=== PATIENT | female | born 1970 | race Caucasian/White ===

== ENCOUNTER 2018-11-10 12:04 | Emergency (ER) | payer MEDICAID, SELFPAY ==
[2018-11-10 12:11] VITALS: BP 150/94; PULSE 107; RESP 16; TEMP 36.6; O2SAT 98
--- NOTE | 2018-11-10 12:12 | W.ED.GENAD ---
Discharge Plan Disposition Patient Disposition: HOME Condition: Good Discharge Details Chief Complaint: Nk/Back Pain Clinical Impression: Lumbago Primary Care Provider: Philipp Eason ED Provider: Jake Eason Home Meds and New Rx's Prescriptions: New cyclobenzaprine 10 mg tablet 10 mg PO TID Qty: 14 RF: 0 lidocaine [Lidoderm] 1 PATCH patch 1 patch Topical Q24H Qty: 4 RF: 0 No Action lisinopril 20 mg Tablet 1 tab PO DAILY RF: 0 omeprazole 40 mg Capsule,Delayed Release(Dr/Ec) 1 tab PO DAILY RF: 0 metformin 1,000 mg Tablet 1,000 mg PO DAILY RF: 0 Chantix 1 mg Tablet 1 tab PO DAILY RF: 0 Discharge Instructions Instructions: Low Back Strain (ED) Additional Instructions: Please take medication as directed, please continue to take Tylenol and Motrin at home. When you are taking the Flexeril please do not operate any heavy machinery, drive the vehicle, or operate firearms. Please continue to use a heating pad as often as possible throughout the day. Please do not lift anything greater than 5 pounds. Please avoid continuous bedrest but try to do that small things around the house. Do not overstrain herself. If you notice any worsening of your symptoms, or any new symptoms such as vomiting, diarrhea, fever, chills, shortness of breath, chest pain, numbness in your groin, bowel or bladder incontinence,, weakness, or fainting , please return immediately to the emergency department for reevaluation. Please follow up with your primary care provider as soon as possible for reassessment and reevaluation. As always, it was a pleasure participating in your medical care today. Medical Decision Making This is a very pleasant 47-year-old with a history of degenerative disc and spine disease who has had multiple MRIs and orthopedic follow-ups, the most recent major imaging study was 1 year ago. She presents today with back pain which she states is clinically consistent with her previous episodes of back spasm. She is getting out of her car 10 days ago, and developed mild back pain at that time. She had no fall, no trauma, she had no red flags of fever chills IV drug use numbness tingling or weakness saddle anesthesia bowel or bladder incontinence, or history of cancer. Physical exam demonstrates a well-appearing female with reassuring vital signs and an encouraging neurologic and physical exam. No significant lumbar or thoracic midline spine tenderness. Normal reflexes, sensation, and strength. Patient demonstrates no evidence of cauda equina syndrome. Her signs and symptoms are clinically consistent with lumbar ago secondary to paraspinal musculature spasms, and inconsistent with cauda equina syndrome, severe vertebral pathology from trauma, or other significant acute process in that regards. Patient has been given a Lidoderm patch, she will be given a prescription for Flexeril. She will be given steroids here. Will be encouraged to continue Tylenol Motrin. Patient had notable improvement of her symptoms with heating pads, and will continue recommend use for this. We discussed red flags which to return and the importance of close follow-up with her PCP and the patient understands I have extensively reviewed the treatment plan and discharge instructions with the patient. I have addressed all patient concerns at this time. The patient was made aware of what symptoms to monitor for that would warrant a return to the emergency department. Discussed the plan with the patient, they demonstrate verbal understanding and agreement with our assessment and plan at this time. HPI General Date/Time Provider Initiated Documentation: 11/10/18 12:06. HPI Narrative: This is a 47-year-old female with a past medical history of degenerative disc disease, who presents today for evaluation of low back pain. Patient states that 10 days ago she was getting out of her vehicle she noticed some back pain which is gradually worsened. It is worse on the left-hand side with some radiation to the right. She denies any focal tenderness in the center. Pain is made worse with movement, improved with a heating pad, and no significant improvement with Tylenol and Motrin. She has had similar symptoms to this in the past, and it usually responds well to Flexeril. She denies any red flags of saddle anesthesia, numbness tingling or weakness, bowel or bladder incontinence. She denies any hematuria, dysuria, or increase in urinary frequency. She denies any history of family cancer, and she denies any trauma, or falls. She denies any red flags of fever or chills. She denies any other complaints at this time. She denies any recent surgeries. She denies any pertinent family history. She has no other complaints at this time. Related Data Home Medications Medication Instructions Recorded Confirmed cyclobenzaprine 10 mg PO TID #14 tab 11/10/18 lidocaine [Lidoderm] 1 patch TOPICAL Q24H #4 patch 11/10/18 lisinopril 1 tab PO DAILY 11/10/18 11/10/18 metformin 1,000 mg PO DAILY 11/10/18 11/10/18 omeprazole 1 tab PO DAILY 11/10/18 11/10/18 varenicline [Chantix] 1 tab PO DAILY 11/10/18 11/10/18 Previous Rx's Medication Instructions Recorded cyclobenzaprine 10 mg PO TID #14 tab 11/10/18 lidocaine [Lidoderm] 1 patch TOPICAL Q24H #4 patch 11/10/18 Allergies Allergy/AdvReac Type Severity Reaction Status Date / Time cephalexin [From Keflex] Allergy Severe Other (See Unverified 11/10/18 12:16 Comment) sulfamethoxazole Allergy Severe Anaphylaxsi Unverified 11/10/18 12:31 [From Bactrim] s trimethoprim [From Bactrim] Allergy Severe Anaphylaxsi Unverified 11/10/18 12:31 s naproxen Allergy Intermediate Skin Rash Unverified 11/10/18 12:31 meloxicam Allergy Mild Nausea Unverified 11/10/18 12:16 Review of Systems Review of Systems All systems reviewed & are unremarkable except as noted in HPI and below PFSH Social History Smoking/Tobacco Use Status: Current every day Exam Narrative Exam Narrative: 1.Const: Well-nourished, Well-developed, appearing stated age 2.Eyes: PERRL, no conjunctival injection, and symmetrical lids. 3.ENT: Atraumatic external nose and ears. Moist MM. Neck: Symmetric, trachea midline, No thyromegaly. 4.CVS: +S1/S2, No murmurs or gallops. Peripheral pulses 2+ and equal in all extremities. Brisk capillary refill in all extremities. 5.RESP: Unlabored respiratory effort. Clear to auscultation bilaterally. No wheezes rales or rhonchi 6.GI: Soft, Nontender/Nondistended, No hepatosplenomegaly. No guarding or rebound. 7.MSK: Normocephalic/Atraumatic, Extremities w/o deformity or ttp No cyanosis or clubbing, Normal movement of all extremities. No midline tenderness to palpation over the CTLS spine. Mild to notable left-sided paraspinal tenderness over L4, and minimal right-sided paraspinal tenderness at L5. Normal ROM in flexion, extension, side bend, and rotation. Patient has +5 out of 5 strength in the lower extremities in dorsiflexion and plantarflexion, knee flexion and extension, hip flexion and extension. There is +2 over 2 dorsalis pedis pulses bilaterally. There is normal sensation to the skin with light touch at the foot, knee, and hip. Normal saddle sensation. Good sensation over the deep sural nerve area bilaterally. Rectal exam demonstrated normal rectal tone, and good perirectal sensation reflexes are +2 over 4 in the patellar reflex bilaterally. +5 out of 5 strength in the medial, ulnar, radial nerve distribution bilaterally in the hands as well as intact light touch sensation to these dermatomes on the hands. It was worsened with straight leg raise bilaterally. Worse on the left than the right. No symptoms of numbness or tingling with straight leg raise. No evidence of weakness. 8.Skin: Warm, Dry. No rashes or lesions. 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 Sensation grossly intact, no focal neurologic deficits. 10.Psych: (AAO) x3. Appropriate mood and affect
[2018-11-10] MEDS: Lidocaine 5% Patch 1 PATCH TP (12:29)
[2018-11-10] MEDS: Dexamethasone 4 MG TAB 12 MG PO (12:55)
== END 2018-11-10 13:08 | disposition home or self-care (01) ==
PROVIDERS: Emergency Provider Student in an Organized Health Care Education/Training Program
DX: M54.5 Low back pain (principal); X50.9XXA Other and unspecified overexertion or strenuous movements or postures, initial encounter; I10 Essential (primary) hypertension
CPT/HCPCS: 99283; J8540

== ENCOUNTER 2019-03-04 16:16 | Emergency (ER) | payer MEDICAID, SELFPAY ==
--- NOTE | 2019-03-04 16:35 | DI.RAD_ITS ---
SYMPTOM/DIAGNOSIS: CHEST PAIN, SOB PA AND LATERAL CHEST: The heart is normal in size. The lungs are clear. The mediastinal structures and pleura appear intact. CONCLUSION: Normal chest. No evidence of acute cardiopulmonary disease.
[2019-03-04] MEDS: Aspirin 81 MG CHEW 324 MG CH (17:00)
--- NOTE | 2019-03-04 17:04 | ED.GENADUL_ITS ---
Discharge Plan Disposition Patient Disposition: AGAINST MEDICAL ADVICE Condition: Stable Discharge Details Chief Complaint: Chest Pain Clinical Impression: Chest pain Primary Care Provider: Philipp Eason ED Provider: Cole Silva Home Meds and New Rx's Prescriptions: Continued lisinopril 20 mg Tablet 1 tab PO DAILY RF: 0 omeprazole 40 mg Capsule,Delayed Release(Dr/Ec) 1 tab PO DAILY RF: 0 metformin 1,000 mg Tablet 1,000 mg PO DAILY RF: 0 Chantix 1 mg Tablet 1 tab PO DAILY RF: 0 cyclobenzaprine 10 mg tablet 10 mg PO TID Qty: 14 RF: 0 lidocaine [Lidoderm] 1 PATCH patch 1 patch Topical Q24H Qty: 4 RF: 0 duloxetine [Cymbalta] 30 mg Capsule,Delayed Release(Dr/Ec) 30 mg PO DAILY RF: 0 Discharge Instructions Instructions: Chest Pain (ED) Additional Instructions: Return immediately to the emergency department for any further concerns, worsening of symptoms, or any further needs you may have. Otherwise follow-up with your primary care provider. We have faxed a referral for outpatient stress testing given that your company of chest pain and somebody will contact you for arrangement of this further testing. Referrals: Philipp Eason [Primary Care Provider] - 2 days Discharge Data Discharge Date/Time-TO BE ENTERED AT DEPARTURE: 03/04/19 18:50 Medical Decision Making Patient presenting the emergency department chief complaint of chest pain. Patient states that this started approximately 6 hours prior to arrival and has been persistent. Patient states history of anxiety and GERD but that this pain is different. Physical exam does show some mild wheezing throughout but patient is a smoker. Patient has otherwise unremarkable nondiagnostic exam. EKG reviewed with attending physician and shows no acute signs of STEMI. EKG shows rate of 93, sinus rhythm non-STEMI. Given the patient is a smoker plan to do d- dimer, chest x-ray, and ACS workup. Pending results patient given aspirin 324 and DuoNeb given wheezing. Review of x-ray shows no acute findings along with radiologist interpretation agreement. Labs are nondiagnostic with no elevation of d-dimer and negative initial troponin. Discussed repeat troponin. Patient refused to stay for further testing and states risk versus benefit of leaving AGAINST MEDICAL ADVICE as patient does state improvement of symptoms and does not want to stay for repeat troponin. Patient was agreeable to outpatient stress testing which order was placed and patient placed upon care management follow-up list preferably for reassessment in the next couple days given patient's complaint of chest pain. Patient clearly states understanding to return for any new or significant worsening of symptoms or further concerns. After discussion of diagnosis and plan of care patient has no further needs, questions, or concerns and states clear understanding to return to the emergency department for any worsening symptoms. HPI General Mode of arrival: ambulatory . Date/Time Provider Initiated Documentation: 03/04/19 16:34 . Limitations to Documentation: no limitations . Information obtained by: patient, family and RN notes reviewed . History of Present Illness 48 year old F presents to the emergency department with the chief complaint of Chest pressure, described as moderate, with intensity rated at 4. Quality is described as aching, and is localized to the chest. Patient started experiencing this hour(s) (6) and it has been constant. No relieving factors improve symptom(s), No exacerbating factors reported . Patient notes no other symptoms.. Patient did receive the following treatments prior to arrival, none Related Data Home Medications Medication Instructions Recorded Confirmed Chantix 1 tab PO DAILY 11/10/18 03/04/19 cyclobenzaprine 10 mg PO TID #14 tab 11/10/18 03/04/19 lidocaine [Lidoderm] 1 patch TOPICAL Q24H #4 patch 11/10/18 03/04/19 lisinopril 1 tab PO DAILY 11/10/18 03/04/19 metformin 1,000 mg PO DAILY 11/10/18 03/04/19 omeprazole 1 tab PO DAILY 11/10/18 03/04/19 duloxetine [Cymbalta] 30 mg PO DAILY 03/04/19 03/04/19 Previous Rx's Medication Instructions Recorded cyclobenzaprine 10 mg PO TID #14 tab 11/10/18 lidocaine [Lidoderm] 1 patch TOPICAL Q24H #4 patch 11/10/18 Allergies Allergy/AdvReac Type Severity Reaction Status Date / Time cephalexin [From Keflex] Allergy Severe Other (See Unverified 03/04/19 17:20 Comment) sulfamethoxazole Allergy Severe Anaphylaxsi Unverified 03/04/19 17:20 [From Bactrim] s trimethoprim [From Bactrim] Allergy Severe Anaphylaxsi Unverified 03/04/19 17:20 s naproxen Allergy Intermediate Skin Rash Unverified 03/04/19 17:20 meloxicam Allergy Mild Nausea Unverified 03/04/19 17:20 General JAVIER: 4 Review of Systems Constitutional Denies chills, Denies fever(s) and Denies malaise Cardiovascular Reports as per HPI, Reports chest pain, Denies chest pain with activity, Denies syncope, Denies irregular heart rhythm, Denies palpitations and Denies dyspnea Respiratory Denies cough, Denies hemoptysis and Denies dyspnea Gastrointestinal Denies abdominal pain, Denies nausea and Denies vomiting Neurologic Denies syncope Psychiatric Denies anxiety Endocrine Denies palpitations PFS Social History Smoking/Tobacco Use Status: Current every day Tobacco Type: cigarettes Drug use: Never Do you feel safe in your relationship?: Yes Exam Const General: cooperative, healthy appearing, comfortable, no acute distress, not diaphoretic and not ill appearing Nutritional Appearance: average body habitus Orientation: alert, awake and oriented x3 Limitations: mental status not altered Neck Neck: normal visual inspection, full ROM, trachea midline, supple and no anterior neck swelling Thyroid: thyroid normal Carotids: normal carotid upstroke and no bruits Chest Chest: normal inspection of the chest Resp Effort & Inspection: normal respiratory effort and able to speak in complete sentences Auscultation: clear to auscultation bilaterally Cardio Jugular venous pressure: no JVD Palpation: normal PMI Rate: regular rate Rhythm: regular rhythm Heart Sounds: S1 normal, S2 normal, no click, no gallops, no murmurs and no rubs Bruits: no abdominal aortic bruits and no carotid bruits Pulses: radial pulses present bilaterally 2+ GI Inspection: normal to inspection Palpation: soft, no aortic enlargement, no pulsatile masses and nontender Auscultation: normal bowel sounds Skin General skin exam: no rashes or lesions noted Neuro General: alert, awake, oriented x3, tone normal and moves all extremities
[2019-03-04 17:08] LABS: Abs Immature Grans 0.01 k/cumm (0.0-0.09); Absolute Basophil Count 0.03 k/cumm (0.0-0.2); Absolute Eosinophil Count 0.22 k/cumm (0.0-0.7); Absolute Lymphocyte Count 2.62 k/cumm (1.2-3.4); Absolute Monocyte Count 0.96 k/cumm (0.11-0.7); Absolute Neutrophil Count 4.19 k/cumm (1.2-6.7); Basophils % 0.4; Eosinophils % 2.7; HCT 37.9 % (36.0-46.0); HGB 12.4 g/dL (12.0-15.5); Immature Grans % 0.1; Lymphocytes % 32.6; Mean Corp. HGB Concentration 32.7 g/dL (32.0-36.0); Mean Corpuscular Hemoglobin 26.5 pg (27.0-33.0); Mean Platelet Volume 10.9 fL (8.0-11.0); Neutrophils % 52.2; Platelet Count 207 x1000/uL (130-400); RBC 4.68 m/cumm (4.00-5.20); RBC Distribution Width 13.4 % (11.7-14.6); White Blood Cell Count 8.03 k/cumm (4.4-10.8)
[2019-03-04 17:10] VITALS: RESP 8
[2019-03-04] MEDS: Albuterol/Ipratropium 3 ML UPD VIAL UPD (17:10)
[2019-03-04 17:18] VITALS: BP 137/73; PULSE 89; RESP 20; TEMP 37.3; O2SAT 96
[2019-03-04 17:33] LABS: ALT 27 U/L (12-78); AST 18 U/L (15-37); Albumin 3.8 g/dL (3.4-5.0); Alkaline Phosphatase 77 U/L (46-116); Anion Gap 10.7 mmol/L (3-11); BUN 13 mg/dL (7-18); Bilirubin, Total 0.4 mg/dL (0.2-1.0); CO2 25.3 mmol/L (21.0-32.0); CREATININE 1.11 mg/dL (0.55-1.02); Calcium 8.6 mg/dL (8.5-10.1); Chloride 104 mmol/L (98-107); Estimated GFR 52.69 (mL/min/1.73m2); Glucose 98 mg/dL (70-100); Magnesium 1.7 mg/dL (1.8-2.4); Potassium 3.4 mmol/L (3.5-5.1); Sodium 140 mmol/L (136-145); Total Protein 7.2 g/dL (6.4-8.2)
[2019-03-04 17:34] LABS: D-Dimer 258 ng/mlFEU (<500)
[2019-03-04 17:40] VITALS: RESP 1
[2019-03-04 17:43] LABS: Troponin I < 0.02 ng/mL (0.00-0.06)
--- NOTE | 2019-03-04 18:15 | DI.VRAD_ITS ---
EXAM: XR Chest, 2 Views EXAM DATE/TIME: 03/04/2019 5:46 PM CLINICAL HISTORY: 48 years old, female; Pain; Chest pain TECHNIQUE: Imaging protocol: XR of the chest, 2 views. COMPARISON: No relevant prior studies available. FINDINGS: Lungs: Unremarkable. No consolidation. Pleural space: Unremarkable. No pleural effusion. No pneumothorax. Heart/Mediastinum: Unremarkable. No cardiomegaly. Bones/joints: Unremarkable. IMPRESSION: No acute findings. Dictated and Authenticated by: Vishnu Freitas MD. Ordering:EBONI Galvan MD
[2019-03-04 19:00] VITALS: RESP 16
== END 2019-03-04 18:50 | disposition left against medical advice (07) ==
PROVIDERS: Emergency Provider Nurse Practitioner Family
DX: R07.9 Chest pain, unspecified (principal); Z53.29 Procedure and treatment not carried out because of patient's decision for other reasons; K21.9 Gastro-esophageal reflux disease without esophagitis; F17.210 Nicotine dependence, cigarettes, uncomplicated
CPT/HCPCS: 36415; 80053; 93005; 94640; 99285; 71046; 83735; 84484; 85025; 85379; 93010; 99284; J7620

== ENCOUNTER 2020-03-13 15:34 | Emergency (ER) | payer MEDICAID, SELFPAY ==
[2020-03-13] VITALS (16 sets, daily range): BP systolic 110–137; BP diastolic 59–75; PULSE 81–131; RESP 9–20; TEMP 36.6; O2SAT 93–97
--- NOTE | 2020-03-13 15:42 | ED.GENADUL_ITS ---
Discharge Plan Disposition Patient Disposition: HOME Condition: Good Discharge Details Chief Complaint: Abd Prob Clinical Impression: Ovarian cyst, Endometrial thickening on ultrasound, Incidental pulmonary nodule, Abdominal pain Primary Care Provider: Marguerite Riley ED Provider: Jake Eason Home Meds and New Rx's Prescriptions: Continued lisinopril 20 mg Tablet 1 tab PO DAILY RF: 0 omeprazole 40 mg Capsule,Delayed Release(Dr/Ec) 1 tab PO DAILY RF: 0 metformin 1,000 mg Tablet 1,000 mg PO DAILY RF: 0 Chantix 1 mg Tablet 1 tab PO DAILY RF: 0 cyclobenzaprine 10 mg tablet 10 mg PO TID Qty: 14 RF: 0 lidocaine [Lidoderm] 1 PATCH patch 1 patch Topical Q24H Qty: 4 RF: 0 duloxetine [Cymbalta] 30 mg Capsule,Delayed Release(Dr/Ec) 30 mg PO DAILY RF: 0 Discharge Instructions Instructions: Ovarian Cyst (ED), Abdominal Pain (ED) Additional Instructions: Here CT scan shows evidence of ovarian cyst which is likely the cause of your pain. You also have a thickened endometrium which needs to be followed up closely with gynecology. Please follow-up with Dr. Schaeffer on Monday morning. Please contact their office. There is also evidence of pulmonary nodules which is an incidental finding. Please follow-up closely with your primary care provider in regards to this. Please take 600 mg of ibuprofen every 6 hours and 1000 mg of Tylenol every 6 hours as needed for pain. Take the Deford as only as needed for pain control. Only take 500 mg of Tylenol if you take an Deford pill. If you notice any worsening of your symptoms, or any new symptoms such as vomiting, diarrhea, fever, chills, shortness of breath, chest pain, numbness, weakness, or fainting , please return immediately to the emergency department fo r reevaluation. Please follow up with your primary care provider as soon as possible for reassessment and reevaluation. As always, it was a pleasure participating in your medical care today. Referrals: Rashid Schaeffer MD [ NON-[facility] STAFF PHYSICIAN] - Marguerite Riley [Primary Care Provider] - Medical Decision Making This is a very pleasant 47-year-old with a history of degenerative disc and spine disease who has had multiple MRIs and orthopedic follow-ups, the most recent major imaging study was 1 year ago who presents today for sudden onset right lower quadrant abdominal pain. Patient states that she was doing dishes when she suddenly had a severe achy sensation in her right lower quadrant. Pain is made worse with movement and palpation. She came to the ER immediately for evaluation. She has had no associated urinary symptoms, nausea vomiting or diarrhea. She is currently on her period. She denies any history o f kidney stones or having pain like this before. No other complaints at this time. No other modifying factors. Physical exam demonstrates notable right lower quadrant abdominal tenderness with reproducibility and guarding. Differential is highest for appendicitis, less likely for pelvic pathology. Will get a CT scan, treat the patient's pain, monitor closely and reassess. 5:[address] scan shows evidence of ovarian cysts, some pulmonary nodules, no other acute abnormalities and no evidence of acute appendicitis. Pain is improved but still present. Patient is currently on her period. Concern for torsion although less likely. Ultrasound was ordered, cysts are present, good blood flow was noted, no evidence of torsion on ultrasound. She does have a notably thickened endometrium at 1.5 cm, which ultrasonography is certainly concerned about this. Did contact Dr. Schaeffer and discussed the case with him. He does recommend prompt follow-up. CT scan does notice pulmonary nodules as well per virtual radiology. This time the patient's pain is notably improved, initial lactate is minimally elevated 2.2, likely secondary to reactivity, no bandemia. No fever. No clinical evidence of tubo-ovarian abscess or significant infection. Urinalysis negative for infection. No clinical evidence radiographically of appendicitis at this time. With patient's pain notably improved I feel that she can go home, I do recommend close follow-up with obstetrics on Monday morning. She would like to follow-up with her PCP in regards to the pulmonary nodules. Discussed red flags which to return. I have extensively reviewed the treatment plan and discharge instructions with the patient. I have addressed all patient concerns at this time. The patient was made aware of what symptoms to monitor for that would warrant a return to the emergency department. Discussed the plan with the patient, they demonstrate verbal understanding and agreement with our assessment and plan at this time. EKG 15: 47 Rate 106, intervals normal, sinus tachycardia, no significant ST elevations or depressions. No evidence of STEMI. Minimal less than 1 mm of depression in V4, no reciprocal elevations, IMPRESSION: 1. Normal appendix with no pathology identified to account for the patient's right lower quadrant pain. 2. 3 cm right ovarian cyst which could relate to the patient's pain. 3. There are several solid noncalcified nodules in the lung bases. The largest is in the lateral left lung base and measures 6 mm in diameter (series 2, image 14). Impression For patients at low risk (minimal or absent history of smoking and of other known risk factors), no routine follow-up is indicated. For patients at high risk (history of smoking or of other known risk factors), consider optional CT Chest at 12 months. Asaf Mejía, Fleischner Society, 2017. Thank you for allowing us to participate in the care of your patient. Dictated and Authenticated by: David Medellin MD 03/13/2020 5:15 PM Eastern Time ([place] & [place]) FINDINGS: Uterus/cervix: The uterus measures 8.2 x 4.6 x 4.6 cm. Endometrial thickness is 1.5 cm with you is within normal limits. There are multiple nabothian cysts. Right adnexa: 2.7 cm right ovarian cyst or dominant follicle. No mass. Normal ovarian blood flow. Left adnexa: 2.7 cm left ovarian cyst or dominant follicle. No mass. Normal ovarian blood flow. Free fluid: None. Bladder: Normal. Other findings: Limited views of each kidney demonstrate no renal calculus or hydronephrosis. IMPRESSION: Bilateral ovarian cysts/dominant follicles each measuring less than 3 cm diameter. No further followup suggested. No acute findings. Thank you for allowing us to participate in the care of your patient. Dictated and Authenticated by: David Medellin MD HPI General Date/Time Provider Initiated Documentation: 03/13/20 15:34 . HPI Narrative: This is a very pleasant 47-year-old with a history of degenerative disc and spine disease who has had multiple MRIs and orthopedic follow-ups, the most recent major imaging study was 1 year ago who presents today for sudden onset right lower quadrant abdominal pain. Patient states that she was doing dishes when she suddenly had a severe achy sensation in her right lower quadrant. Pain is made worse with movement and palpation. She came to the ER immediately for evaluation. She has had no associated urinary symptoms, nausea vomiting or diarrhea. She is currently on her period. She denies any history of kidney stones or having pain like this before. No other complaints at this time. No other modifying factors. Related Data Home Medications Medication Instructions Recorded Confirmed Chantix 1 tab PO DAILY 11/10/18 03/04/19 cyclobenzaprine 10 mg PO TID #14 tab 11/10/18 03/04/19 lidocaine [Lidoderm] 1 patch TOPICAL Q24H #4 patch 11/10/18 03/04/19 lisinopril 1 tab PO DAILY 11/10/18 03/04/19 metformin 1,000 mg PO DAILY 11/10/18 03/04/19 omeprazole 1 tab PO DAILY 11/10/18 03/04/19 duloxetine [Cymbalta] 30 mg PO DAILY 03/04/19 03/04/19 Previous Rx's Medication Instructions Recorded cyclobenzaprine 10 mg PO TID #14 tab 11/10/18 lidocaine [Lidoderm] 1 patch TOPICAL Q24H #4 patch 11/10/18 Allergies Allergy/AdvReac Type Severity Reaction Status Date / Time cephalexin [From Keflex] Allergy Severe Other (See Unverified 03/04/19 17:20 Comment) sulfamethoxazole Allergy Severe Anaphylaxsi Unverified 03/04/19 17:20 [From Bactrim] s trimethoprim [From Bactrim] Allergy Severe Anaphylaxsi Unverified 03/04/19 17:20 s naproxen Allergy Intermediate Skin Rash Unverified 03/04/19 17:20 meloxicam Allergy Mild Nausea Unverified 03/04/19 17:20 General JAVIER: 2 Review of Systems All systems reviewed & are unremarkable except as noted in HPI and below PFSH Social History Smoking/Tobacco Use Status: Current every day Tobacco Type: cigarettes Drug use: Never Substance use type: does not use Do you feel safe at home: Yes Do you feel safe in your relationship?: Yes Exam Narrative Exam Narrative: 1.Const: Well-nourished, Well-developed, appearing stated age 2.Eyes: PERRL, no conjunctival injection, and symmetrical lids. 3.ENT: Atraumatic external nose and ears. Moist MM. Neck: Symmetric, trachea midline, No thyromegaly. 4.CVS: +S1/S2, No murmurs or gallops. Peripheral pulses 2+ and equal in all extremities. Brisk capillary refill in all extremities. 5.RESP: Unlabored respiratory effort. Clear to auscultation bilaterally. No wheezes rales or rhonchi 6.GI: Soft, nondistended, notable guarding and tenderness in the right lower quadrant. Mild rebound. Notable referred pain on palpation of the right upper quadrant down to the right lower. Negative Rovsing sign. 7.MSK: Normocephalic/Atraumatic, Extremities w/o deformity or ttp No cyanosis or clubbing, Normal movement of all extremities 8.Skin: Warm, Dry. No rashes or lesions. 9.Neuro: home office representative II-XII grossly intact. Sensation grossly intact, no focal neurologic deficits. 10.Psych: (AAO) x3. Appropriate mood and affect
--- NOTE | 2020-03-13 15:45 | DI.CT_ITS ---
EXAM: CT ABDOMEN PELVIS WO CLINICAL HISTORY: RLQ pain, on period. TECHNIQUE: Imaging Protocol: Axial computed tomography images with coronal and sagittal reformatted images were created and reviewed. COMPARISON: No exams were available for comparison FINDINGS: ABDOMEN: Lung Bases: There are noncalcified pulmonary nodules seen in the lung bases. The largest is seen in the right lung base and measures 0.7 cm. Liver: Normal density. No measurable mass. Gallbladder and biliary tract: No radiodense calculus or biliary ductal dilation. Pancreas: Normal density, no abnormal calcifications or inflammatory process. Spleen: Normal. Kidneys: Normal size, contour and axis. No radiodense stones or obstructive uropathy. No masses seen. Adrenal glands: No masses seen. Lymph nodes: Within normal limits. Abdominal Aorta: Abdominal portion non-dilated. Mild atherosclerosis. PELVIS: Bladder: Symmetric distention, no gross wall thickening. Bowel: No obstruction or bowel wall thickening. The appendix is normal in size without evidence of ad jacent mesenteric fat stranding or adjacent fluid collection. Peritoneal cavity: No ascites, collection or mesenteric inflammatory response. Reproductive organs: There is a 3 cm right adnexal cyst. This likely reflects an ovarian cyst. Note is made of a cervical nabothian cyst. Bones: Degenerative changes are seen in the spine, particularly at L5-S1. Soft Tissues: Within normal limits. IMPRESSION: 1. Normal appendix without evidence of an acute appendicitis. 2. 3 cm right ovarian cyst. This may relate to the patient's site of pain. 3. Several noncalcified pulmonary nodules. The largest is in the right lower lobe and measures 7 mm in size. For patients at high risk (history of smoking or other known risk factors), consider CT sca n of the chest in 6-12 months for re-evaluation. RADIATION DOSE DELIVERED: Total DLP DATA REPOSITORY: All CT scans at this facility are submitted to the National Radiology Data Registry (NRDR) Dose Index Registry (DIR) with the [employer] (ACR). RADIATION OPTIMIZATION: All CT scans at this facility use at least one of these dose optimization te chniques: automated exposure control; mA and/or kV adjustment per patient size (includes targeted exa ms where dose is matched to clinical indication); or iterative reconstruction.
[2020-03-13] MEDS: Normal Saline 1,000 ML 1000 ML IV (16:01)
[2020-03-13 16:05] LABS: Abs Immature Grans 0.09 k/cumm (0.0-0.09); Absolute Basophil Count 0.04 k/cumm (0.0-0.2); Absolute Eosinophil Count 0.17 k/cumm (0.0-0.7); Absolute Monocyte Count 1.03 k/cumm (0.11-0.7); Absolute Neutrophil Count 7.35 k/cumm (1.2-6.7); Basophils % 0.3; Eosinophils % 1.4; HCT 41.5 % (36.0-46.0); HGB 14.2 g/dL (12.0-15.5); Immature Grans % 0.8 %; Lymphocytes % 26.9; Mean Corp. HGB Concentration 34.2 g/dL (32.0-36.0); Mean Corpuscular Volume 84.7 fL (80-95); Mean Platelet Volume 10.7 fL (8.0-11.0); Monocytes % 8.7; Neutrophils % 61.9; Platelet Count 257 x1000/uL (130-400); RBC Distribution Width 13.1 % (11.7-14.6); White Blood Cell Count 11.88 k/cumm (4.4-10.8)
[2020-03-13 16:08] LABS: Lactate 2.2 mmol/L (0.6-1.4)
[2020-03-13 16:12] LABS: Bilirubin Negative (Negative); Blood Large (Negative); Clarity Sl Cloudy (Clear); Glucose Negative (Negative); Ketones Negative (Negative); Leukocyte Esterase Negative (Negative); Nitrite Negative (Negative); Specific Gravity >= 1.030 (1.005-1.025); Urobilinogen 0.2 EU/dL (Up TO 0.2); pH 5.5 (5-8)
[2020-03-13 16:30] LABS: Epithelial Cells Few HPF (Negative); RBC >50 HPF (0-2); WBC Negative HPF (0-5)
[2020-03-13 16:31] LABS: Bacteria Rare HPF (Negative); C & S Indicated? No; Crystals Negative HPF (Negative); Mucus Negative (Negative)
[2020-03-13 16:31] LABS: ALT 30 U/L (14-59); AST 19 U/L (15-37); Alkaline Phosphatase 53 U/L (46-116); Anion Gap 10.1 mmol/L (3-11); BUN 19 mg/dL (7-18); Bilirubin, Total 0.4 mg/dL (0.2-1.0); CO2 25.9 mmol/L (21.0-32.0); Chloride 101 mmol/L (98-107); Estimated GFR 47.95 (mL/min/1.73m2); Glucose 112 mg/dL (74-106); Lipase 201 U/L (73-393); Potassium 3.4 mmol/L (3.5-5.1); Sodium 137 mmol/L (136-145); Total Protein 7.9 g/dL (6.4-8.2)
[2020-03-13 16:44] LABS: Troponin I < 0.05 ng/Ml (<0.06)
[2020-03-13] MEDS: Ondansetron 4 MG/2 ML VIAL IVP (16:56)
[2020-03-13] MEDS: HYDROmorphone 2 MG/ML VIAL 1 MG IVP (17:04)
--- NOTE | 2020-03-13 17:16 | DI.VRAD_ITS ---
PROCEDURE INFORMATION: Exam: CT Abdomen And Pelvis Without Contrast Exam date and time: 03/13/2020 4:31 PM Age: 49 years old Clinical indication: Abdominal pain; Localized; Right lower quadrant (rlq); Patient HX: Rlq pain, on period TECHNIQUE: Imaging protocol: Computed tomography of the abdomen and pelvis without contrast. COMPARISON: No relevant prior studies available. FINDINGS: Lungs: There are several solid noncalcified nodules in the lung bases. The largest is in the lateral left lung base and measures 6 mm in diameter (series 2, image 14). Liver: The liver is within normal limits for this noncontrast study. Gallbladder and bile ducts: The gallbladder is normal. Pancreas: The pancreas is normal. Spleen: The spleen is normal. Adrenals: The adrenal glands are normal. Kidneys and ureters: The kidneys are normal. Stomach and bowel: Unremarkable. No obstruction. No mucosal thickening. Appendix: A normal appendix is identified. Intraperitoneal space: Unremarkable. No free air. No significant fluid collection. Vasculature: The aorta demonstrates mild atherosclerotic calcification. Lymph nodes: Unremarkable. No enlarged lymph nodes. Bladder: The urinary bladder is nondistended limiting its evaluation. It is grossly unremarkable. Reproductive: 3 cm right adnexal cyst. This is not pathological based on size or CT appearance but could relate to the patient's right lower quadrant pain. 9 mm cyst in the cervix consistent with nabothian cysts noted. Bones/joints: There is mild convex right curvature of the lumbar spine with degenerative disc disease predominantly along the inter convexity on the left at L5-S1. There are degenerative changes of the facet joints most pronounced at L4-L5. No suspicious lytic or sclerotic bone lesion. Soft tissues: Unremarkable. IMPRESSION: 1. Normal appendix with no pathology identified to account for the patient's right lower quadrant pain. 2. 3 cm right ovarian cyst which could relate to the patient's pain. 3. There are several solid noncalcified nodules in the lung bases. The largest is in the lateral left lung base and measures 6 mm in diameter (series 2, image 14). Impression For patients at low risk (minimal or absent history of smoking and of other known risk factors), no routine follow-up is indicated. For patients at high risk (history of smoking or of other known risk factors), consider optional CT Chest at 12 months. Asaf Mejía, Fleischner Society, 2017. Dictated and Authenticated by: David Medellin MD. Ordering:GIL Joseph MD
--- NOTE | 2020-03-13 18:23 | DI.US_ITS ---
EXAM: US PELVIS TRANSVAGINAL CLINICAL HISTORY: ovarian cyst. TECHNIQUE: Transabdominal and transvaginal pelvic ultrasound was performed using standard protocol. COMPARISON: CT ABDOMEN PELVIS WO from 03/13/2020 FINDINGS: KIDNEYS: Kidneys are symmetric in size. No evidence of renal calculi. No evidence of hydronephrosis. No renal mass or cyst identified. UTERUS: Position: Anteverted. Size: 8.4 x 4.6 x 4.6 cm Endometrium: Up to 1.5 cm. Normal for patient's menstrual status. Myometrium: Unremarkable. Cervix: Cervical nabothian cysts are present. OVARIES: Right: 3.2 x 2.4 x 2.8 cm Cyst or mass: There is a dominant 2.7 cm cyst or follicle. Left: 3.9 x 1.7 x 2.0 cm Cyst or mass: There is a 2.7 cm cyst or dominant follicle. DOPPLER: Color: Symmetric and uniform flow to both ovaries. No hyperemia. Duplex: Normal ovarian arterial waveforms visualized. CUL-DE-SAC: Free fluid: None. Other: None. IMPRESSION: 1. Normal sonographic appearance of the kidneys. 2. Normal-appearing uterus with endometrial stripe within normal limits. 3. Bilateral ovarian cysts or dominant follicles less than 3 cm in diameter. No further follow-up is suggested. DATA REPOSITORY:
--- NOTE | 2020-03-13 19:35 | DI.VRAD_ITS ---
PROCEDURE INFORMATION: Exam: US Pelvis Complete, Transabdominal and US Pelvis, Transvaginal Exam date and time: 03/13/2020 7:08 PM Age: 49 years old Clinical indication: Other: Sudden onset of rlq pain today. ; Patient HX: Rlq pain. Patient currently menstruating. TECHNIQUE: Imaging protocol: Real-time transabdominal and transvaginal pelvic ultrasound (complete) with image documentation. Transvaginal imaging was used for better evaluation of the endometrium and adnexa. COMPARISON: CT ABDOMEN PELVIS WO 03/13/2020 4:30 PM FINDINGS: Uterus/cervix: The uterus measures 8.2 x 4.6 x 4.6 cm. Endometrial thickness is 1.5 cm with you is within normal limits. There are multiple nabothian cysts. Right adnexa: 2.7 cm right ovarian cyst or dominant follicle. No mass. Normal ovarian blood flow. Left adnexa: 2.7 cm left ovarian cyst or dominant follicle. No mass. Normal ovarian blood flow. Free fluid: None. Bladder: Normal. Other findings: Limited views of each kidney demonstrate no renal calculus or hydronephrosis. IMPRESSION: Bilateral ovarian cysts/dominant follicles each measuring less than 3 cm diameter. No further follow-up suggested. No acute findings. Dictated and Authenticated by: David eMdellin MD. Ordering:GIL Joseph MD
--- NOTE | 2020-03-13 19:39 | NUR.NOTE ---
Nursing Note: [facility]ED TO [facility]03/13/20
[2020-03-13] MEDS: Ketorolac 30 MG/ML VIAL IVP (19:40)
== END 2020-03-13 19:50 | disposition home or self-care (01) ==
PROVIDERS: Emergency Provider Student in an Organized Health Care Education/Training Program; PCP Student in an Organized Health Care Education/Training Program
DX: N83.201 Unspecified ovarian cyst, right side (principal); N85.00 Endometrial hyperplasia, unspecified; R91.1 Solitary pulmonary nodule; R10.31 Right lower quadrant pain
CPT/HCPCS: 80053; 81025; 83690; 93005; 96361; 96374; 96375; 96376; 99285; 74176; 76830; 76856; 81003; 81015; 83605; 84484; 85025; 93010; 99284; J1885; J2405

== ENCOUNTER 2020-04-03 01:32 | Outpatient (CLI) | payer MEDICAID, SELFPAY ==
[2020-04-03 11:25] LABS: Abs Immature Grans 0.01 k/cumm (0.0-0.09); Absolute Basophil Count 0.02 k/cumm (0.0-0.2); Absolute Eosinophil Count 0.24 k/cumm (0.0-0.7); Absolute Monocyte Count 0.75 k/cumm (0.11-0.7); Absolute Neutrophil Count 4.36 k/cumm (1.2-6.7); Basophils % 0.2; Eosinophils % 2.7; HCT 38.1 % (36.0-46.0); HGB 12.9 g/dL (12.0-15.5); Immature Grans % 0.1 %; Lymphocytes % 38.7; Mean Corp. HGB Concentration 33.9 g/dL (32.0-36.0); Mean Corpuscular Hemoglobin 29.3 pg (27.0-33.0); Mean Corpuscular Volume 86.4 fL (80-95); Mean Platelet Volume 10.8 fL (8.0-11.0); Monocytes % 8.5; Neutrophils % 49.8; Platelet Count 284 x1000/uL (130-400); RBC 4.41 m/cumm (4.00-5.20); RBC Distribution Width 12.6 % (11.7-14.6); White Blood Cell Count 8.78 k/cumm (4.4-10.8)
[2020-04-04 14:55] LABS: COVID-19 RT-PCR Result NEGATIVE (Negative)
== END 2020-04-03 01:52 ==
PROVIDERS: PCP Student in an Organized Health Care Education/Training Program; Visit Provider Obstetrics & Gynecology
DX: N93.9 Abnormal uterine and vaginal bleeding, unspecified (principal); Z01.812 Encounter for preprocedural laboratory examination; Z11.59 Encounter for screening for other viral diseases; Z01.818 Encounter for other preprocedural examination
CPT/HCPCS: 36415; 86850; 86900; 86901; U0003; 85025

== ENCOUNTER 2020-04-08 06:11 | Day surgery (SDC) | payer MEDICAID, SELFPAY ==
[2020-04-08 06:24] VITALS: BP 111/77; PULSE 108; RESP 18; TEMP 36.6; O2SAT 97
[2020-04-08] MEDS: Lactated Ringers 1,000 ML 125 ML IV ×2 (06:53→08:39)
--- NOTE | 2020-04-08 07:28 | W.PREOPHP ---
Date of service: 04/08/20 Time of Service: 07:28 Assessment and Plan Assessment and plan (1) Endometrial thickening on ultrasound: Status: Acute Assessment and plan: Plan to proceed with hysteroscopy, D&C and NovaSure endometrial ablation. Risks of surgery were reviewed with the patient. We discussed amenorrhea rates with endometrial ablation. We did discuss typical need for endometrial sampling prior to NovaSure endometrial ablation. All questions were answered to the patient's satisfaction and consent for surgery was obtained. (2) Abnormal uterine bleeding: Status: Acute History of Present Illness History of Present Illness Chief Complaint: Abnormal uterine bleeding. Narrative: 49 year old with a long history of heavy periods for hysteroscopy, D&C and NovaSure endometrial ablation. The patient reports that since November her periods have been almost constant with only short periods of time without menstrual bleeding. She was seen in the emergency department for abdominal pain and was found to have a 3 cm benign-appearing ovarian cyst. On her pelvic ultrasound she did have an area that was suspicious for an endometrial polyp. We discussed medical management options and the patient desires to proceed with D&C, hysteroscopy and NovaSure endometrial ablation. Risk of surgery were reviewed. Review of Systems All systems reviewed & are unremarkable except as noted in HPI and below PFSH Medical History (Updated 04/03/20 @ 10:38 by Amber Huff RN) History of asthma (Acute) History of degenerative joint disease (Acute) Spine History of high blood pressure (Acute) History of prediabetes (Acute) Hx of chest pain (Acute) Hx of gastroesophageal reflux (GERD) (Acute) Social History Smoking/Tobacco Use Status: Current every day Tobacco Type: cigarettes Drug use: Never Substance use type: does not use Do you feel safe at home: Yes Do you feel safe in your relationship?: Yes History History 3 Para 3 Hx # Term Pregnancies 3 Multiple births Hx # Pregnancies Ectopic pregnancies AB induced Hx Number of Living Children AB spontaneous Meds Home Medications and Allergies Home Medications Medication Instructions Recorded Confirmed Type cyclobenzaprine 10 mg PO TID #14 tab 11/10/18 04/08/20 Rx lidocaine [Lidoderm] 1 patch TOPICAL Q24H #4 patch 11/10/18 04/08/20 Rx lisinopril 1 tab PO DAILY 11/10/18 04/08/20 History metformin 1,000 mg PO DAILY 11/10/18 04/08/20 History omeprazole 1 tab PO DAILY 11/10/18 04/08/20 History duloxetine [Cymbalta] 30 mg PO DAILY 03/04/19 04/08/20 History norethindrone acetate 5 mg tablet 5 mg PO BID #60 tab 03/16/20 04/08/20 Rx albuterol sulfate [ProAir HFA] 2 puff INHALATION Q6H PRN 04/03/20 04/08/20 History acetaminophen-pamabrom [Midol] 2 tab PO Q4H PRN 04/08/20 04/08/20 History Allergies Allergy/AdvReac Type Severity Reaction Status Date / Time cephalexin [From Keflex] Allergy Severe Other (See Unverified 04/08/20 06:20 Comment) sulfamethoxazole Allergy Severe Anaphylaxsi Unverified 04/08/20 06:20 [From Bactrim] s trimethoprim [From Bactrim] Allergy Severe Anaphylaxsi Unverified 04/08/20 06:20 s naproxen Allergy Intermediate Skin Rash Unverified 04/08/20 06:20 meloxicam Allergy Mild Nausea Unverified 04/08/20 06:20 Exam Neck Neck: normal visual inspection Resp Effort & Inspection: normal respiratory effort Auscultation: clear to auscultation bilaterally Cardio Rate: regular rate Rhythm: regular rhythm Results Last Vital Signs Temp 97.9 F 04/08/20 06:24 Pulse 108 H 04/08/20 06:24 Resp 18 04/08/20 06:24 BP 111/77 04/08/20 06:24 Pulse Ox 97 04/08/20 06:24
[2020-04-08] MEDS: Lidocaine 1% Multi-Dose 50 ML VIAL (08:06)
--- NOTE | 2020-04-08 08:17 | ENDOMET_PTH ---
PATIENT: Tracie Layton LOC: [facility] U#:[id number] AGE/SX: 49/F ROOM: RE04/08/[address]: Rashid Schaeffer MD : 1970 BED: DIS: 04/08/2020 SPEC #: [id number] RECD: 04/08/20 11:34 STATUS: DEION REQ #: [id number] BALDO: 04/08/20 08:[address]: Rashid Schaeffer DEPT: Surgical Specimen RECD BY: Kennedi Miranda ENTERED: 04/08/20 11:35 SP TYPE: Endomet OTHR DR: Marguerite Riley Tissues: 1 - ENDOMETRIUM BX/CURRETTE Procedures: GROSS AND MICRO LEVEL 4 Comments: [id number]
--- NOTE | 2020-04-08 08:32 | ROE_ITS ---
Date of service: 04/08/20 Time of Service: 08:32 Operative Note Operative Note DATE OF PROCEDURE: 04/08/20 PRE-OP DIAGNOSIS: Abnormal uterine bleeding POST-OP DIAGNOSIS: same PROCEDURE: History D&C, Novasure endometrial ablation SURGEON: Rashid Schaeffer ANESTHESIA: MAC ESTIMATED BLOOD LOSS: 10 PATHOLOGY: other (Endometrial curettings) COMPLICATIONS: None Patient was transported to: PACU Patient's condition: stable Findings: 1. Thin endometrial lining free of discrete lesions such as polyps Procedure Description: The patient was taken to the operating room and after adequate sedation was achieved the patient was placed in lithotomy position. The patient was prepped and draped in the usual sterile manner. A weighted s peculum was placed in the vagina with good visualization of the cervix. A paracervical block with 10 cc of 1% plain lidocaine solution was instilled. The anterior lip of the cervix was grasped with a single-tooth tenaculum. The 5 mm hysteroscope with normal saline distention media was advanced through the cervix with good visualization of the endometrial cavity. While there was a suspicion for an endometrial polyp prior to surgery based on her ultrasound none was visualized during hysteroscopic exam. The endometrium appeared to be thin and somewhat atrophic. Endometrial curettings were collected by sharp curettage and scant tissue was retrieved. The cervix was then gently dilated with Roe dilators. The cavity length was assessed with a uterine sound measuring 6.5 cm. The NovaSure was advanced easily and cavity width was assessed at 3.6 cm. Cavity assessment was passed and the device was activated. At the completion of the burn site the device was removed and procedure was concluded. All instrumentation was removed. The patient was trans-to PACU in stable condition. Sponge and instrument counts were correct at the conclusion of the procedure.
--- NOTE | 2020-04-08 08:39 | W.PM.DSUDISC ---
Discharge Plan Disposition Patient Disposition: HOME Condition: Good Discharge Details Reason For Visit: AUB Attending Provider: Rashid Schaeffer Primary Care Provider: Marguerite Riley Home Meds and New Rx's Prescriptions: No Action norethindrone acetate [Aygestin] 5 mg tablet 5 mg PO BID Qty: 60 RF: 1 lisinopril 20 mg Tablet 1 tab PO DAILY RF: 0 omeprazole 40 mg Capsule,Delayed Release(Dr/Ec) 1 tab PO DAILY RF: 0 metformin 1,000 mg Tablet 1,000 mg PO DAILY RF: 0 cyclobenzaprine 10 mg tablet 10 mg PO TID Qty: 14 RF: 0 lidocaine [Lidoderm] 1 PATCH patch 1 patch Topical Q24H Qty: 4 RF: 0 duloxetine [Cymbalta] 30 mg Capsule,Delayed Release(Dr/Ec) 30 mg PO DAILY RF: 0 albuterol sulfate [ProAir HFA] 90 mcg/actuation Hfa Aerosol Inhaler 2 puff INHALATION Q6H PRNRF: 0 Midol 500-25 mg Tablet 2 tab PO Q4H PRNRF: 0 Discharge Instructions Activity:: Nothing per vagina x 2 weeks. Diet:: As Tolerated Discharge Orders Discharge Orders: Discharge Order (Routine); Ordered 04/08/20 Ordered By: Rashid Schaeffer DS: Diagnosis Discharge Diagnosis (1) Endometrial thickening on ultrasound: Status: Acute (2) Abnormal uterine bleeding: Status: Acute
[2020-04-08 09:12] VITALS: BP 100/62; PULSE 78; RESP 17; TEMP 36.1; O2SAT 98
[2020-04-08] MEDS: HYDROcodone 5/Acetaminophen 325 TAB PO (09:17)
--- NOTE | 2020-04-08 09:46 | W.PM.DSUDISC ---
Discharge Plan Disposition Patient Disposition: HOME Condition: Good Discharge Details Reason For Visit: AUB Attending Provider: Rashid Schaeffer Primary Care Provider: Marguerite Riley Home Meds and New Rx's Prescriptions: New hydrocodone-acetaminophen 5-325 mg Tablet 1 tab PO Q4H PRNQty: 15 RF: 0 Continued norethindrone acetate [Aygestin] 5 mg tablet 5 mg PO BID Qty: 60 RF: 1 lisinopril 20 mg Tablet 1 tab PO DAILY RF: 0 omeprazole 40 mg Capsule,Delayed Release(Dr/Ec) 1 tab PO DAILY RF: 0 metformin 1,000 mg Tablet 1,000 mg PO DAILY RF: 0 cyclobenzaprine 10 mg tablet 10 mg PO TID Qty: 14 RF: 0 lidocaine [Lidoderm] 1 PATCH patch 1 patch Topical Q24H Qty: 4 RF: 0 duloxetine [Cymbalta] 30 mg Capsule,Delayed Release(Dr/Ec) 30 mg PO DAILY RF: 0 albuterol sulfate [ProAir HFA] 90 mcg/actuation Hfa Aerosol Inhaler 2 puff INHALATION Q6H PRNRF: 0 Midol 500-25 mg Tablet 2 tab PO Q4H PRNRF: 0 Discharge Instructions Stand Alone Forms: DSU Post Gynecology Surgery Activity:: Nothing per vagina x 2 weeks. Diet:: As Tolerated Discharge Orders Discharge Orders: Discharge Order (Routine); Ordered 04/08/20 Ordered By: Rashid Schaeffer DS: Diagnosis Discharge Diagnosis (1) Endometrial thickening on ultrasound: Status: Acute (2) Abnormal uterine bleeding: Status: Acute
== END 2020-04-08 10:01 | disposition home or self-care (01) ==
PROVIDERS: PCP Student in an Organized Health Care Education/Training Program; Visit Provider Obstetrics & Gynecology
PROC: 0UDB8ZZ Extraction of Endometrium, Via Natural or Artificial Opening Endoscopic (ICD-10-PCS; CPT 58558; principal; 2020-04-08 07:30)
PROC: (CPT 58353; 2020-04-08 07:30)
DX: R93.89 Abnormal findings on diagnostic imaging of other specified body structures (principal); N93.9 Abnormal uterine and vaginal bleeding, unspecified; N84.0 Polyp of corpus uteri; N85.8 Other specified noninflammatory disorders of uterus; F17.210 Nicotine dependence, cigarettes, uncomplicated
CPT/HCPCS: 58563; 81025; 88305; 99223; J1100; J1885; J2001; J2250; J2405

== ENCOUNTER 2020-04-21 09:00 | Emergency (ER) | payer MEDICAID, SELFPAY ==
[2020-04-21 09:03] VITALS: BP 146/87; PULSE 138; RESP 20; TEMP 36.7; O2SAT 99
--- NOTE | 2020-04-21 09:24 | ED.GENADUL_ITS ---
Discharge Plan Disposition Patient Disposition: HOME Condition: Stable Discharge Details Chief Complaint: PATIENT SAFETY MANAGER Clinical Impression: Acute endometritis Primary Care Provider: Marguerite Riley ED Provider: Maya Bettencourt Home Meds and New Rx's Prescriptions: Continued metronidazole [Flagyl] 500 mg tablet 500 mg PO Q12H Qty: 28 RF: 0 ciprofloxacin HCl [Cipro] 500 mg tablet 500 mg PO Q12H Qty: 28 RF: 0 oxycodone-acetaminophen [Endocet] 5-325 mg tablet 1 tab PO Q8H MDD 4 PRN (Reason: pain) Qty: 10 RF: 0 lisinopril 20 mg Tablet 1 tab PO DAILY RF: 0 omeprazole 40 mg Capsule,Delayed Release(Dr/Ec) 1 tab PO DAILY RF: 0 metformin 1,000 mg Tablet 1,000 mg PO DAILY RF: 0 duloxetine [Cymbalta] 30 mg Capsule,Delayed Release(Dr/Ec) 30 mg PO DAILY RF: 0 cyclobenzaprine 10 mg tablet 10 mg PO TID PRNRF: 0 lidocaine [Lidoderm] 1 PATCH adhesive patch,medicated 1 patch Topical Q24H PRNRF: 0 hydrochlorothiazide 25 mg Tablet 25 mg PO DAILY RF: 0 albuterol sulfate [ProAir HFA] 90 mcg/actuation Hfa Aerosol Inhaler 2 puff INHALATION Q6H PRNRF: 0 hydrocodone-acetaminophen 5-325 mg Tablet 1 tab PO Q4H PRNQty: 15 RF: 0 Discharge Instructions Additional Instructions: Drink plenty of fluids. Use antibiotics as prescribed. Rest activities as tolerated. Tylenol or Motrin for soreness if needed. If using Motrin please be sure to have food in your stomach prior to dosing. MANUFACTURING QUALITY INSPECTOR office plans to call on to follow-up and check on your improvement. Return immediately for any worsening, fever, abdominal pain or alarming symptoms sooner if needed Medical Decision Making <HERNANDEZ Frank - Last Filed: 04/21/20 13:15> Is a 49-year-old patient presenting to the emergency room for complaints of abdominal pain. Patient reports onset of abdominal pain for the last 12 days. Patient is status post D&C due to abnormal vaginal bleeding which she experienced 3 months. Patient reports after her D&C which was reportedly uncomplicated she had onset of abdominal pain in the lower abdomen on her postoperative day 1. Patient reports she has had persistent pain since that time. Patient reports a constant pain with occasional waxing and waning character. Patient describes pain as bad as 8 out of 10, best experience pain 3 out of 10. Patient has been using [id number] Tylenol and Motrin in addition to Vicodin previously prescribed for her pain. Patient reports she is having vaginal discharge which is malodorous and yellow noted for the last 2 days. Patient does report nausea since onset of pain. Patient is concerned that she does not feel this pain is expected and she did expect improvement by this time. She did follow-up with her MANUFACTURING QUALITY INSPECTOR doctor for reevaluation who reassured her. See HPI for the remainder of patient's details. On patient's exam she does have notable lower abdominal pain without obvious peritoneal signs, rebound or guarding. No associated CVA tenderness. Patient's abdomen is soft. We will plan to check baseline labs, rehydrate patient as she does feel somewhat dehydrated, manage patient's nausea and provide Toradol for pain relief temporarily. We will plan to involve PATIENT SAFETY MANAGER early. Spoke with Dr. Julee Palomino, she does recommend ultrasound at this time, will evaluate patient in the emergency room. He recommends deferring pelvic examination to her or colleague. 0945 - Dr. Bri Palomino in the emergency room to evaluate patient. Dr. Palomino recommended holding on ultrasound given abdominal exam recommended CT imaging. Took call from Dr. Clark, radiologist, reported endometrial fluid and gas present. Right ovarian cyst present. No other obvious intra-abdominal process. Reviewed patient's labs. Mild leukocytosis noted, Mild signs of dehydration present. Lactate 1.6. Patient's urinalysis appears inconsistent with acute urinary tract infection. Spoke with Dr. Julee Palomino who again reevaluated patient in the emergency room after CT results. Recommend Cipro Flagyl. Also provided patient a prescription for Percocet. Does recommend initial dose of Cipro IV prior to disposition. She has written and called in both prescriptions and has a plan of care to check in on the patient in 2 days over the phone and then will reevaluate patient in the office. Patient agreeable to this plan of care. Will complete IV fluids as well as Cipro IV prior to discharge. The patient was stable and requested discharge. Prior to discharge, my usual and customary return precautions were reviewed with the patient - this included follow-up instructions and reasons to return to the Emergency Department if conditions worsens, does not improve as expected, or other new concerns arise. <Fabricio Ellsworth MD - Last Filed: 04/21/20 09:33> 49-year-old female, seen, examined and discussed with Ms. Wilhelm. Patient is postop day approximately 12 status post hysteroscopy with endometrial ablation and D&C. She has had 2 days of malodorous vaginal discharge and ongoing pain. Agree with labs, imaging, MANUFACTURING QUALITY INSPECTOR consultation. HPI <HERNANDEZ Frank - Last Filed: 04/21/20 13:15> General Date/Time Provider Initiated Documentation: 04/21/20 09:01 . HPI Narrative: This is a 49-year-old patient presenting to the emergency room for complaints of lower abdominal pain. Patient reports lower abdominal pain for the last 2 weeks. Patient reports on April 08 she had a D&C due to months of vaginal bleeding. Patient reports onset of pain day 1 after her D&C. Patient reports pain has been persistent since that time. Patient reports between 3 and 8 out of 10 of pain. Reports pain is constant with occasional waxing and waning character. Patient denies any relief of pain. Patient reports she is been using Tylenol, ibuprofen and Vicodin for pain management. Patient reports she has been nauseous since onset of pain in the last few weeks. Patient does report occasional dizziness. Denies obvious headaches. Denies fevers or chills, does report occasional night sweats which she reports is a baseline and are unchanged since surgery. Patient denies radiation of her abdominal pain to maria her back or into her groin. Patient does report in the last 2 days onset of malodorous vaginal discharge. Patient describes a yellow discharge. Patient does report onset of mild scant vaginal bleeding again today. Patient describes decreasing urine output. Concerned of possible dehydration. Denies dysuria, urgency or frequency of urination. Does report loose watery bowel movements for the last 5 days. Denies any antibiotics prior to her surgery. Patient denies any blood with bowel movements. Patient reports nausea without vomiting although decreased appetite for the last 2 weeks. She did reach out to her MANUFACTURING QUALITY INSPECTOR doctor who reevaluated her last Monday. Patient reports she received an injection of Toradol IM which was somewhat helpful for her discomfort otherwise was reassured and advised that pain should improve. Patient denies chest pains or difficulty breathing or shortness of breath or wheezing. Denies any cough. Negative Covid screen. No rash. No other concerning complaints at this time. Related Data Home Medications Medication Instructions Recorded Confirmed lisinopril 1 tab PO DAILY 11/10/18 04/21/20 metformin 1,000 mg PO DAILY 11/10/18 04/21/20 omeprazole 1 tab PO DAILY 11/10/18 04/21/20 duloxetine [Cymbalta] 30 mg PO DAILY 03/04/19 04/21/20 albuterol sulfate [ProAir HFA] 2 puff INHALATION Q6H PRN 04/03/20 04/21/20 hydrocodone-acetaminophen 1 tab PO Q4H PRN #15 tab 04/08/20 04/21/20 ciprofloxacin HCl 500 mg tablet 500 mg PO Q12H #28 tab 04/21/20 cyclobenzaprine 10 mg PO TID PRN 04/21/20 04/21/20 hydrochlorothiazide 25 mg PO DAILY 04/21/20 04/21/20 lidocaine [Lidoderm] 1 patch TOPICAL Q24H PRN 04/21/20 04/21/20 metronidazole 500 mg tablet 500 mg PO Q12H #28 tab 04/21/20 oxycodone-acetaminophen 5 mg-325 1 tab PO Q8H PRN #10 tab MDD 4 04/21/20 mg tablet Previous Rx's Medication Instructions Recorded hydrocodone-acetaminophen 1 tab PO Q4H PRN #15 tab 04/08/20 ciprofloxacin HCl 500 mg tablet 500 mg PO Q12H #28 tab 04/21/20 metronidazole 500 mg tablet 500 mg PO Q12H #28 tab 04/21/20 oxycodone-acetaminophen 5 mg-325 1 tab PO Q8H PRN #10 tab MDD 4 04/21/20 mg tablet Allergies Allergy/AdvReac Type Severity Reaction Status Date / Time cephalexin [From Keflex] Allergy Severe Other (See Unverified 04/21/20 10:22 Comment) sulfamethoxazole Allergy Severe Anaphylaxsi Unverified 04/21/20 10:22 [From Bactrim] s trimethoprim [From Bactrim] Allergy Severe Anaphylaxsi Unverified 04/21/20 10:22 s naproxen Allergy Intermediate Skin Rash Unverified 04/21/20 10:22 meloxicam Allergy Mild Nausea Unverified 04/21/20 10:22 General Stated Complaint: PATIENT SAFETY MANAGER JAVIER: 3 Review of Systems <HERNANDEZ Frank - Last Filed: 04/21/20 13:15> All systems reviewed & are unremarkable except as noted in HPI and below Constitutional Constitutional: Denies chills, Denies fever(s) and Denies headache(s) ENT Ears, Nose, Mouth, and Throat: Denies headache(s) Neurologic Neurologic: Denies headache(s) PFSH <HERNANDEZ Frank - Last Filed: 04/21/20 13:15> Medical History History of asthma (Acute) History of degenerative joint disease (Acute) Spine History of high blood pressure (Acute) History of prediabetes (Acute) Hx of chest pain (Acute) Hx of gastroesophageal reflux (GERD) (Acute) Social History Smoking/Tobacco Use Status: Current every day Tobacco Type: cigarettes Drug use: Never Substance use type: does not use Do you feel safe at home: Yes Do you feel safe in your relationship?: Yes History History 3 Para 3 Hx # Term Pregnancies 3 Multiple births Hx # Pregnancies Ectopic pregnancies AB induced Hx Number of Living Children AB spontaneous Exam <HERNANDEZ Frank - Last Filed: 04/21/20 13:15> Narrative Exam Narrative: CONST: Healthy appearing patient, in no acute distress. Well hydrated. Alert and oriented. HENMT: Head nomocephalic, normal to inspection. Atraumatic. Hearing grossly normal. EYES: General normal appearance. Alignment normal. Eyelids normal. Conjunctiva normal. Sclera normal. PERRL. NECK: Normal visual inspection. FROM. Trachea midline. CHEST: Normal insepection of the chest. RESP: Normal respiratory effort. Speaking full sentences. No cough. CARDIO: No JVD. GI: Normal inspection of abdomen. No distension. Soft. moderate lower abdominal tenderness noted bilaterally, mild LUQ abd pain with palpaiton. Bowel sounds present in all 4 quadrants. No rebound. No gaurding. MUSCULOSKELETAL: Normal Gait. FROM of all extremities. Distal neurovascularly intact. Sensation intact distally. Back: No CVTA noted bilaterally. no LE edema noted bilaterally SKIN: Normal. Dry. No rashes. NEURO: Alert and awake. Speech clear. PSYCH: Normal affect. Cooperative. Course <HERNANDEZ Frank - Last Filed: 04/21/20 13:15> Vital Signs Vital signs: Vital Signs Temperature 36.7 C 04/21/20 09:03 Pulse 138 H 04/21/20 09:03 Respiratory Rate 04/21/20 09:03 Blood Pressure 146/87 H 04/21/20 09:03 Pulse Oximetry 99 04/21/20 09:03 Temperature 36.7 C 04/21/20 09:03 Temperature Source Skin 04/21/20 09:03 Pulse 138 H 04/21/20 09:03 Respiratory Rate 04/21/20 09:03 Blood Pressure 146/87 H 04/21/20 09:03 Blood Pressure Position Sitting 04/21/20 09:03 Pulse Oximetry 99 04/21/20 09:03 Oxygen Delivery Method Room Air 04/21/20 09:03 Oxygen Flow Rate 0 04/21/20 09:03 Lab/Test Results Lab/Test Results: 04/21/20 09:22 Blood Blood Culture - Pending 04/21/20 09:22 Blood Blood Culture - Pending
--- NOTE | 2020-04-21 09:45 | DI.CT_ITS ---
EXAM: CT ABDOMEN PELVIS W CLINICAL HISTORY: LUQ, lower abd and pelvic pain, s/p D C TECHNIQUE: COMPARISON: CT CT ABDOMEN PELVIS WO from 03/13/2020 FINDINGS: Examination of the pelvis was performed bolus infusion of 100 cc of Omnipaque 350. Previously noted noncalcified lower lobe pulmonary nodules are again noted the largest 7 millimeters in diameter in th e right lower lobe follow-up chest CT recommended 6-12 months. The liver and spleen are unremarkable in appearance as is the pancreas. Gallbladder is CT normal, no biliary dilatation. Adrenals and kidneys are unremarkable, no urinary tract calcification or obstruction. No renal mass. Abdominal aorta is of normal diameter. Major visceral vessels are unremarkable. No significant abdominal wall hernia. No significant abdominal or pelvic adenopathy. Appendix is normal. No evidence of diverticulitis or bowel obstruction. Incidental presumed right ovarian cyst noted, measuring about 3 cm in diameter. Pelvic ultrasound co rrelation may be obtained if clinically indicated. IMPRESSION: Gas and fluid in endometrial cavity, nonspecific. Infectious process not excluded on the basis of th is scan. No evidence of uterine perforation or pelvic abscess.
[2020-04-21 09:46] LABS: Lactate 1.6 mmol/L (0.6-1.4)
[2020-04-21 09:51] LABS: Abs Immature Grans 0.12 k/cumm (0.0-0.09); Absolute Basophil Count 0.02 k/cumm (0.0-0.2); Absolute Eosinophil Count 0.23 k/cumm (0.0-0.7); Absolute Lymphocyte Count 2.95 k/cumm (1.2-3.4); Absolute Monocyte Count 0.97 k/cumm (0.11-0.7); Basophils % 0.2; Eosinophils % 2.1; HCT 38.6 % (36.0-46.0); HGB 13.1 g/dL (12.0-15.5); Immature Grans % 1.1 %; Lymphocytes % 26.8; Mean Corp. HGB Concentration 33.9 g/dL (32.0-36.0); Mean Corpuscular Hemoglobin 28.6 pg (27.0-33.0); Mean Corpuscular Volume 84.3 fL (80-95); Mean Platelet Volume 10.3 fL (8.0-11.0); Monocytes % 8.8; Platelet Count 308 x1000/uL (130-400); RBC 4.58 m/cumm (4.00-5.20); RBC Distribution Width 12.3 % (11.7-14.6); White Blood Cell Count 11.02 k/cumm (4.4-10.8)
[2020-04-21 09:59] LABS: Absolute Neutrophil Count 6.72 k/cumm (1.2-6.7)
[2020-04-21 10:00] LABS: ALT 33 U/L (14-59); AST 18 U/L (15-37); Alkaline Phosphatase 78 U/L (46-116); Anion Gap 10.2 mmol/L (3-11); BUN 16 mg/dL (7-18); Bilirubin, Total 0.3 mg/dL (0.2-1.0); CO2 24.8 mmol/L (21.0-32.0); CREATININE 1.31 mg/dL (0.55-1.02); Calcium 9.3 mg/dL (8.5-10.1); Chloride 103 mmol/L (98-107); Estimated GFR 43.33 (mL/min/1.73m2); Glucose 106 mg/dL (74-106); Potassium 3.6 mmol/L (3.5-5.1); Sodium 138 mmol/L (136-145); Total Protein 8.3 g/dL (6.4-8.2)
[2020-04-21] MEDS: Normal Saline 1,000 ML 1000 ML IV (10:01)
[2020-04-21] MEDS: Ketorolac 15 MG/ML VIAL IVP (10:02)
[2020-04-21] MEDS: Ondansetron 4 MG/2 ML VIAL IVP (10:02)
[2020-04-21] MEDS: Omnipaque 350 MG/ML 100 ML BTL IJ (10:22)
[2020-04-21] MEDS: Normal Saline Flush 10 ML SYR IVP (10:23)
[2020-04-21] MEDS: Acetaminophen 500 MG TAB 1000 MG PO (11:05)
[2020-04-21 11:07] LABS: Bilirubin Negative (Negative); Blood Small (Negative); Clarity Sl Cloudy (Clear); Glucose Negative (Negative); Ketones Negative (Negative); Leukocyte Esterase Negative (Negative); Nitrite Negative (Negative); Urobilinogen 0.2 EU/dL (Up TO 0.2)
[2020-04-21 11:16] LABS: Epithelial Cells Moderate HPF (Negative); RBC 0-2 HPF (0-2); WBC 0-2 HPF (0-5)
[2020-04-21 11:17] LABS: Bacteria Few HPF (Negative); C & S Indicated? No/Sq. Contamination; Casts Negative LPF (Negative); Crystals Negative HPF (Negative); Mucus Trace (Negative)
[2020-04-21] MEDS: CIPROFLOXACIN 400 MG/200 ML BAG 200 MG IVPB (11:22)
[2020-04-21 11:24] VITALS: BP 124/76; PULSE 80; TEMP 37.1; O2SAT 98
--- NOTE | 2020-04-21 18:27 | W.GYNCONSULT ---
Date of service: 04/21/20 Time of Service: 11:27 Assessment and Plan Assessment and plan (1) History of endometrial ablation: Status: Acute Assessment and plan: Patient has post op visit on 05/05/[address] Schaeffer. I recommended that the patient call the office on of this week 04/23/2020 and check-in regarding the need for a earlier postop visit. (2) Pelvic pain: Status: Acute Assessment and plan: Differential includes endometritis as the results of the endometrial ablation. Her pain may improve if she begins to discharge residual uterine lining or possible blood. I recommended that a course of antibiotics be prescribed in addition to Percocet. I would encourage her not to take additional ibuprofen secondary to her elevated creatinine. (3) Endometritis: Status: Acute History of Present Illness History of Present Illness Chief Complaint: Suprapubic and left lower quadrant pain Narrative: 49 year old who presented to the [facility] emergency department earlier today with complaints of pelvic pain since her NovaSure endometrial ablation on 04/08/2020. The endometrial ablation was performed to treat heavy painful irregular menses that had been ongoing since November 2019. Her lower abdominal pain prompted a emergency room visit on 03/13/2020 where imaging showed thickened endometrial lining and a benign-appearing ovarian cyst. Patient was not a candidate for oral contraceptives management of her dysmenorrhea secondary to tobacco use. The patient reports that since November her periods have been almost constant with only short periods of time without menstrual bleeding. 04/08/2020 an endometrial ablation was performed along with the D&C which showed benign proliferative endometrium. Her postop course was complicated by suprapubic pain without bleeding. She was [facility] last [facility] The endometrial stripe during an office ultrasound appeared thin. The impression was that pain was secondary to postop inflammatory changes secondary to the ablation and expectant management was recommended. She was scheduled for a repeat office visit on 05/05/2020. Consults Consult date: 04/21/20 Requesting physician: Maya Bettencourt Review of Systems Constitutional Constitutional: Reports difficulty sleeping (Pain improves with lying down, worse with sitting), Reports fatigue, Denies fever(s), Denies night sweats and Reports poor appetite Cardiovascular Cardiovascular: Reports system reviewed and no additional complaints, except as documented Respiratory Respiratory: Reports cough (Patient has occasional cough-existed prior to her procedure.) Gastrointestinal Gastrointestinal: Reports diarrhea (For the past 5 days. Denies rectal bleeding or melena) Genitourinary Genitourinary: Reports amenorrhea (Light bright red blood via vagina this morning.), Denies difficulty voiding, Denies genital lesions, Reports pelvic pain (Suprapubic with radiation to the left lower quadrant), Reports urinary incontinence (Associated with coughing), Reports vaginal discharge (For the past 48 hours) and Reports vaginal odor Musculoskeletal Musculoskeletal: Reports myalgias Integumentary/Breasts Skin/Breast: Reports system reviewed and no additional complaints, except as documented Psychiatric Psychiatric: Reports abnormal sleep pattern and Reports anxiety (Unsure of the origin for the pain) Endocrine Endocrine: Reports fatigue [facility] Social History (Updated 04/21/20 @ 18:57 by Ceci Palomino MD) Smoking/Tobacco Use Status: Current every day Tobacco Type: cigarettes Alcohol Intake: current Alcohol Intake frequency: a few times a month Alcohol type: hard liquor and other Drug use: Never Substance use type: does not use current occupation: Patient does not work she is disabled Do you feel safe at home: Yes Do you feel safe in your relationship?: Yes History History 3 Para 3 Hx # Term Pregnancies 3 Multiple births Hx # Pregnancies Ectopic pregnancies AB induced Hx Number of Living Children AB spontaneous Exam Narrative Exam Narrative: CAT scan of the abdomen and pelvis showed thickened endometrial lining with air present. Benign right adnexal cyst. Const General: in distress moderate and ill appearing (Uncomfortable extending legs while sitting semi-Fowlers) Nutritional Appearance: obese Orientation: alert, awake and oriented x3 Resp Effort & Inspection: normal respiratory effort Auscultation: clear to auscultation bilaterally Cardio Rate: regular rate Rhythm: regular rhythm External Female Exam: normal external appearance Bimanual Exam- Vagina & Uterus: normal palpation, uterine size normal, cervical motion tenderness (Mild) and tender (With palpation, left greater than right.) on the left Bimanual Exam- Adnexa, other: no masses, tender (Left greater than right) on the left, No cul-de-sac fullness and cul-de-sac tenderness Results Last Vital Signs Temp 98.8 F 04/21/20 11:24 Pulse 80 04/21/20 11:24 Resp 20 04/21/20 09:03 BP 124/76 04/21/20 11:24 Pulse Ox 98 04/21/20 11:24 Labs Result diagrams: 04/21/20 09:30 04/21/20 09:30 Labs: Laboratory Results - last 24 hr 04/21/20 04/21/20 04/21/20 09:30 09:30 09:30 WBC 11.02 H RBC 4.58 Hgb 13.1 Hct 38.6 MCV 84.3 MCH 28.6 MCHC 33.9 RDW 12.3 Plt Count 308 MPV 10.3 Immature Gran % 1.1 Neutrophils % 61.0 Lymphocytes % 26.8 Monocytes % 8.8 Eosinophils % 2.1 Basophils % 0.2 Absolute Neutrophils 6.72 H Absolute Lymphocytes 2.95 Absolute Monocytes 0.97 H Absolute Eosinophils 0.23 Absolute Basophils 0.02 Sodium 138 Potassium 3.6 Chloride 103 Carbon Dioxide 24.8 Anion Gap 10.2 BUN 16 Creatinine 1.31 H Estimated GFR/1.73 m2 43.33 Glucose 106 Lactate 1.6 H Calcium 9.3 Total Bilirubin 0.3 AST 18 ALT 33 Alkaline Phosphatase 78 Total Protein 8.3 H Albumin 4.0 Urine Color Urine Clarity Urine pH Ur Specific [place] Urine Protein Urine Ketones Urine Blood Urine Nitrite Urine Bilirubin Urine Urobilinogen Ur Leukocyte Esterase Urine RBC Urine WBC Ur Epithelial Cells Urine Crystals Urine Bacteria Urine Casts Urine Mucus Urine Other Ur Culture Indicated? Urine Glucose 04/21/20 11:00 WBC RBC Hgb Hct MCV MCH MCHC RDW Plt Count MPV Immature Gran % Neutrophils % Lymphocytes % Monocytes % Eosinophils % Basophils % Absolute Neutrophils Absolute Lymphocytes Absolute Monocytes Absolute Eosinophils Absolute Basophils Sodium Potassium Chloride Carbon Dioxide Anion Gap BUN Creatinine Estimated GFR/1.73 m2 Glucose Lactate Calcium Total Bilirubin AST ALT Alkaline Phosphatase Total Protein Albumin Urine Color Yellow Urine Clarity Sl cloudy Urine pH 5.0 Ur Specific [place] 1.010 Urine Protein Negative Urine Ketones Negative Urine Blood Small H Urine Nitrite Negative Urine Bilirubin Negative Urine Urobilinogen 0.2 Ur Leukocyte Esterase Negative Urine RBC 0-2 Urine WBC 0-2 Ur Epithelial Cells Moderate Urine Crystals Negative Urine Bacteria Few Urine Casts Negative Urine Mucus Trace Urine Other Ur Culture Indicated? No/sq. contamination Urine Glucose Negative
== END 2020-04-21 13:18 | disposition home or self-care (01) ==
PROVIDERS: Emergency Provider Physician Assistant; PCP Student in an Organized Health Care Education/Training Program
DX: N71.0 Acute inflammatory disease of uterus (principal); R10.30 Lower abdominal pain, unspecified; G89.18 Other acute postprocedural pain; E86.0 Dehydration; R73.03 Prediabetes; I10 Essential (primary) hypertension
CPT/HCPCS: 36415; 80053; 87040; 96361; 96365; 96375; 99285; 74177; 81003; 81015; 83605; 85025; J0744; J1885; J2405; J3490

== ENCOUNTER 2020-04-23 14:43 | Outpatient (REF) | payer MEDICAID, SELFPAY ==
[2020-04-23 14:51] LABS: Lactate 1.9 mmol/L (0.6-1.4)
[2020-04-23 15:09] LABS: Abs Immature Grans 0.14 k/cumm (0.0-0.09); Absolute Basophil Count 0.02 k/cumm (0.0-0.2); Absolute Lymphocyte Count 2.16 k/cumm (1.2-3.4); Absolute Monocyte Count 0.98 k/cumm (0.11-0.7); Absolute Neutrophil Count 6.68 k/cumm (1.2-6.7); Basophils % 0.2; HCT 37.1 % (36.0-46.0); HGB 12.8 g/dL (12.0-15.5); Immature Grans % 1.4 %; Lymphocytes % 21.2; Mean Corp. HGB Concentration 34.5 g/dL (32.0-36.0); Mean Corpuscular Hemoglobin 28.8 pg (27.0-33.0); Mean Corpuscular Volume 83.4 fL (80-95); Mean Platelet Volume 10.9 fL (8.0-11.0); Monocytes % 9.6; Neutrophils % 65.6; Platelet Count 308 x1000/uL (130-400); RBC 4.45 m/cumm (4.00-5.20); RBC Distribution Width 12.2 % (11.7-14.6); White Blood Cell Count 10.18 k/cumm (4.4-10.8)
== END 2020-04-23 15:03 ==
LOC: LBN 14:43
PROVIDERS: PCP Student in an Organized Health Care Education/Training Program; Visit Provider Obstetrics & Gynecology
DX: N71.1 Chronic inflammatory disease of uterus (principal); Z98.890 Other specified postprocedural states
CPT/HCPCS: 83605; 85025

== ENCOUNTER 2020-04-24 01:31 | Outpatient (CLI) | payer MEDICAID, SELFPAY ==
--- NOTE | 2020-04-24 06:30 | DI.US_ITS ---
EXAM: US PELVIS TRANSVAGINAL CLINICAL HISTORY: Abdominal pain post Novasure,endometritis,h/o endometrial ablation TECHNIQUE: Ultrasound performed using standard protocol. COMPARISON: US US PELVIS TRANSVAGINAL from 03/13/[address] ABDOMEN PELVIS W from 04/21/2020 FINDINGS: Pelvic ultrasound was performed transabdominally and transvaginally. There is significant shadowing from endometrial stripe, CT shadowing performed 3 days ago showed gas in the endometrial cavity. End ometrial stripe is difficult to measure or evaluate due to the show abdomen present. However stripe appears complex and heterogeneous. Some fluid appears to be present endometrial cavity. Right ovary contains a 27 millimeter in diameter avascular mass of complex echogenicity, this may rep resent a hemorrhagic cyst, prior ultrasound of March 13 did show a simple cyst of the right ovary. IMPRESSION: Presumed gas and heterogeneous material in endometrium cavity as described above, the patient reporte d clinically has endometritis. Right ovarian complex mixed echogenicity lesion, avascular, probably hemorrhagic cyst. Follow-up ult rasound suggested in 4-6 weeks. DATA REPOSITORY:
== END 2020-04-24 01:51 ==
PROVIDERS: PCP Student in an Organized Health Care Education/Training Program; Visit Provider Obstetrics & Gynecology
DX: R10.9 Unspecified abdominal pain (principal); N71.1 Chronic inflammatory disease of uterus; Z98.890 Other specified postprocedural states; N83.291 Other ovarian cyst, right side
CPT/HCPCS: 76830; 76856

== ENCOUNTER 2020-05-11 01:13 | Outpatient (CLI) | payer MEDICAID, SELFPAY ==
[2020-05-11 09:53] LABS: Abs Immature Grans 0.01 k/cumm (0.0-0.09); Absolute Basophil Count 0.02 k/cumm (0.0-0.2); Absolute Eosinophil Count 0.19 k/cumm (0.0-0.7); Absolute Monocyte Count 0.77 k/cumm (0.11-0.7); Absolute Neutrophil Count 2.64 k/cumm (1.2-6.7); Basophils % 0.3; HCT 37.4 % (36.0-46.0); HGB 12.6 g/dL (12.0-15.5); Immature Grans % 0.2 %; Lymphocytes % 41.7; Mean Corp. HGB Concentration 33.7 g/dL (32.0-36.0); Mean Corpuscular Hemoglobin 28.2 pg (27.0-33.0); Mean Corpuscular Volume 83.7 fL (80-95); Monocytes % 12.4; Neutrophils % 42.4; Platelet Count 245 x1000/uL (130-400); RBC 4.47 m/cumm (4.00-5.20); RBC Distribution Width 12.3 % (11.7-14.6); White Blood Cell Count 6.23 k/cumm (4.4-10.8)
[2020-05-12 18:36] LABS: COVID-19 RT-PCR UVMMC Result Negative (Negative)
== END 2020-05-11 01:33 ==
PROVIDERS: PCP Student in an Organized Health Care Education/Training Program; Visit Provider Obstetrics & Gynecology
DX: R10.2 Pelvic and perineal pain (principal); Z01.818 Encounter for other preprocedural examination; Z11.59 Encounter for screening for other viral diseases
CPT/HCPCS: 36415; 86850; 86900; 86901; U0003; 85025

== ENCOUNTER 2020-05-13 07:08 | Observation (INO) | payer MEDICAID, SELFPAY ==
[2020-05-04 16:45] VITALS: BP 117/71; PULSE 78; RESP 20; O2SAT 94
[2020-05-10 22:30] VITALS: BP 116/68; PULSE 72; RESP 18; TEMP 36.8; O2SAT 93
[2020-05-13] VITALS (17 sets, daily range): BP systolic 90–127; BP diastolic 48–84; PULSE 74–100; RESP 12–21; TEMP 36.4–37.2; O2SAT 93–98
[2020-05-13] MEDS: Lactated Ringers 1,000 ML 125 ML IV ×4 (07:51→21:50)
[2020-05-13] MEDS: CLINDAMYCIN 900 MG/50 ML BAG 50 MG IVPB (07:55)
--- NOTE | 2020-05-13 11:20 | UTER_PTH ---
PATIENT: Tracie Layton LOC: OBS U#:[id number] AGE/SX: 49/F ROOM: OBS.306 RE05/13/[address]: Rashid Schaeffer MD : [id number] BED: A DIS: 05/14/2020 SPEC #: [id number] RECD: 05/13/20 17:05 STATUS: DEION REQ #: [id number] BALDO: 05/13/20 11:[address]: Rashid Schaeffer DEPT: Surgical Specimen RECD BY: Kennedi Miranda ENTERED: 05/13/20 17:06 SP TYPE: UTER OTHR DR: Marguerite Riley Tissues: 1 - OVARY NOT TUMOR W OR W/O TUBES 2 - UTERUS W OR W/O OVARIES(NOT TUMOR/PROLAPSE) Procedures: GROSS AND MICRO LEVEL 5 Comments: [id number]
[2020-05-13] MEDS: Bupivacaine 0.25% Pres-Free 30 ML VIAL (13:08)
[2020-05-13] MEDS: Ondansetron 4 MG/2 ML VIAL IVP ×2 (16:07→21:27)
[2020-05-13] MEDS: HYDROmorphone 2 MG/ML VIAL IVP ×2 (16:07→21:28)
[2020-05-13] MEDS: ACETAMINOPHEN 1,000 MG/100 ML BTL 400 MG IVPB ×2 (16:07→21:25)
[2020-05-13] MEDS: Normal Saline Flush 10 ML SYR IV (16:10)
[2020-05-13] MEDS: Ketorolac 30 MG/ML VIAL IVP (21:28)
[2020-05-13] MEDS: Lactated Ringers 250 ML 500 ML IV (22:00)
[2020-05-13] MEDS: Albuterol HFA 8 GM 60 PUFF INH IH (22:06)
[2020-05-14 00:15] VITALS: BP 120/72; PULSE 77; RESP 18; TEMP 36.8; O2SAT 95
[2020-05-14] MEDS: Ketorolac 30 MG/ML VIAL IVP (03:32)
[2020-05-14] MEDS: HYDROmorphone 2 MG/ML VIAL IVP (03:32)
[2020-05-14] MEDS: ACETAMINOPHEN 1,000 MG/100 ML BTL 400 MG IVPB (03:33)
[2020-05-14] MEDS: Ondansetron 4 MG/2 ML VIAL IVP (03:33)
[2020-05-14] MEDS: Normal Saline Flush 10 ML SYR IV (03:33)
[2020-05-14 04:25] VITALS: BP 113/77; PULSE 80; RESP 18; O2SAT 95
[2020-05-14 08:00] VITALS: BP 108/69; PULSE 78; RESP 16; TEMP 36.9; O2SAT 95
[2020-05-14] MEDS: DULoxetine 30 MG CAP PO (08:19)
[2020-05-14] MEDS: Lisinopril 20 MG TAB PO (08:20)
[2020-05-14] MEDS: hydroCHLOROthiazide 25 MG TAB PO (08:20)
[2020-05-14] MEDS: metFORMIN 500 MG TAB 1000 MG PO (08:21)
[2020-05-14] MEDS: Omeprazole 20 MG CAPCR PO (08:22)
--- NOTE | 2020-05-14 12:15 | ROE_ITS ---
Date of service: 05/13/20 Time of Service: 16:00 Operative Note Operative Note DATE OF PROCEDURE: 05/13/20 PRE-OP DIAGNOSIS: 1. Uterine bleeding 2. Pelvic pain POST-OP DIAGNOSIS: other 1. Uterine bleeding 2. Pelvic pain 3 Extensive intra-abdominal adhesions. (Hostile abdomen) PROCEDURE: 1. LAVH BSO 2. Extensive lysis of adhesions 3. Postoperative cystoscopy SURGEON: Rashid Schaeffer ASSISTING SURGEON: Hellen Ortega ANESTHESIA: GETA ESTIMATED BLOOD LOSS: 150 PATHOLOGY: other (Uterus, tubes and ovaries) COMPLICATIONS: None Patient was transported to: PACU Patient's condition: stable Findings: 1. Hostile abdomen with extensive omental and small bowel adhesions to entirety of anterior abdominal wall from the upper abdomen to the pelvis. Adhesions involving small bowel and omentum to the left adnexa. Omental adhesions to the uterine fundus 2. Normal appearance to uterus, tubes and ovaries. 3. Normal postoperative cystoscopy Procedure Description: Patient was taken to the operating room and after adequate general anesthesia was obtained the patient was placed in lithotomy position. A Quick2LAUNCH uterine manipulator was placed to the cervix. A Young catheter was placed and bladder draining clear urine. The patient was repositioned the surgeon was regloved and attention was then turned to the patient's abdomen. The patient did have a previous vertical laparotomy scar and a previous supraumbilical scar from a tubal ligation. In addition to the umbilicus were infiltrated with 0.25% Marcaine solution. A #15 scalpel was used to go through the old supraumbilical scar. Dissection was taken down to the base of the umbilical ligament. The fascia was grasped with 2 Geneva clamps and incised sharply with the scalpel. The posterior sheath was identified and incised with Metzenbaum scissors. The peritoneum was entered sharply with a hemostat. A 10 mm balloon trocar was advanced and secured in place. The abdomen was insufflated to approximately 15 mmHg with carbon dioxide. The 10 mm laparoscope was inserted and there was essentially 0 visualization of the abdominal cavity. There was a field of adhesions at walled off any visible access to the anterior abdominal wall. The trocar was removed and adhesions were attempted to be taken down digitally. Laparoscope was reinserted and again there was essentially no access to the anterior abdominal wall and there was no ability to place an additional port under direct visualization. Anesthesia had placed a nasogastric tube. A site in the midclavicular line 4 cm beneath the costal margin was identified and infiltrated with Marcaine solution as well. Dissection was again carried down to the underlying fascia which was grasped and elevated with 2 Екатерина clamps. The fascia was incised with a scalpel. Posterior sheath and peritoneum were also identified. A 10 mm port was inserted and again a field of adhesions was encountered with little to no visualization of the abdominal cavity. Blunt digital dissection was again used to take down some of the adhesions and I was able to obtain a laparoscopic line of sight between ports and insert a LigaSure device. The LigaSure was used to dissect adhesions down in the left upper quadrant initially. Adhesions were eventually taken down where a left lower quadrant port and a right lower quadrant port could be inserted both under direct visualization. Omental and bowel adhesions occupied the entirety of the anterior abdominal wall requiring extensive dissection to access the pelvis. Nearly 1 hour of dissection was required to access the pelvis through the adhesions. There was adhesions involving the left tube and ovary with small bowel on the left side. These adhesions were taken down. There were adhesions involving the omentum to the fundus and anterior surface of the uterus. These were also taken down with the LigaSure device. T he ovaries were freed and were grossly normal in appearance. First dissection was carried across the left infundibulopelvic ligament with the LigaSure device. The ovary was removed from the abdomen via an Endo Catch bag. Attention was turned to the right side where dissection was also carried across the infundibulopelvic ligament. Dissection on both sides were carried across the round ligament broad ligament. The anterior leaf of the broad ligament was opened and taken to the midline developing the bladder flap and sharp dissection was used to take down the scar. The bladder was reflected inferiorly. Dissection was carried down on either side to the level of the uterine vessels. The cul-de-sac was well visualized and was noted to be clear. Attention was then turned to the vaginal portion of this procedure. The patient was repositioned. A weighted speculum was placed in the vagina with good visualization of the cervix. The paracervical tissues were infiltrated with 1% lidocaine solution with epinephrine. A circumferential incision was made at the cervicovaginal junction with a #10 scalpel. Anterior and posterior planes were developed with blunt and sharp dissection. The cul-de-sac was entered sharply with Heath scissors. The peritoneum was tagged to the vaginal cuff in the midline. A longbilled weighted speculum was inserted. Dissection was carried anteriorly and the bladder was reflected anteriorly with a right angle retractor and the anterior cul-de-sac was entered without trauma to the bladder. The uterosacral ligaments were crossclamped bilaterally with Zeppelin clamps, transected with Heath scissors and suture-ligated and transfixed sutures of 0 Vicryl. The uterine vessels were then crossclamped bilaterally with Zeppelin clamps, transected and suture ligated also with transfixed 0 Vicryl suture. Additional pedicles along the broad ligament were taken down with the LigaSure device and the uterus was removed vaginally. All pedicles were examined and were noted to be hemostatic. The uterosacral ligaments were incorporated into the vaginal angles with the previously placed and held sutures of 0. The median defect in the vaginal cuff was reapproximated with interrupted vertical mattress sutures of 0 Vicryl. Excellent hemostasis was noted along the vaginal cuff. 10 mL's of indigocarmine was administered intravenously. A 5 mm 30 degrees cystoscope with normal saline distention media was advanced. There was strong efflux of indigocarmine from both UOs. Bladder wall was noted to be intact and free of trauma. The cystoscope was removed and a Young catheter was replaced. The patient was repositioned the surgeon was regloved and attention was then turned to the patient's abdomen. The pneumoperitoneum was reestablished. The vaginal cuff and all pedicles were noted to be hemostatic. A Artem-Ilana device was used to close the umbilicus with 0 Vicryl suture. The fascia at the left upper quadrant incision was closed with interrupted sutures of 0 Vicryl in [id number] fashion. Abdomen desufflated. Skin incisions were closed with 4 Monocryl and Dermabond was applied. The needle counts were correct at the conclusion of the procedure. The patient tolerated the procedure well and was transferred to PACU in stable condition.
[2020-05-14] MEDS: oxyCODONE 5 MG TAB PO (12:26)
--- NOTE | 2020-05-14 12:59 | W.PM.PROGNOT ---
Date of Service Date of service: 05/14/20 Time of Service: 12:59 Assessment and Plan Assessment and plan (1) Pelvic pain: Status: Acute (2) Abnormal uterine bleeding: Status: Acute (3) Intra-abdominal adhesions: Status: Acute (4) S/P laparoscopic assisted vaginal hysterectomy (LAVH): Status: Acute Assessment and plan: Satisfactory postoperative progress. Patient is able to be discharged home. Follow-up with me in 1 week. Subjective Subjective Interval history since last seen: Doing well today. Has been ambulatory to chair. Young catheter was removed and she has been voiding without difficulty. She does have pain to her abdomen but it is well controlled with Percocet. No vaginal bleeding this morning. She is tolerating regular diet has no nausea or vomiting. Exam GI Other: Incisions are clean dry and intact. There is significant ecchymosis to the umbilicus and left upper quadrant ports. Objective Objective Clinical Data: Vital Signs Temperature 98.4 F 05/14/20 08:00 Temperature Source Oral 05/14/20 08:00 Pulse 78 05/14/20 08:00 Pulse Rhythm Regular 05/14/20 08:00 Respiratory Rate 16 05/14/20 08:00 Respiratory Effort 05/14/20 08:00 Respiratory Depth Normal 05/14/20 08:00 Respiratory Pattern Normal 05/14/20 08:00 Blood Pressure 108/69 05/14/20 08:00 Pulse Oximetry 95 05/14/20 08:00 Respiratory End-tidal CO2 33 05/13/20 14:18 Oxygen Delivery Method Room Air 05/14/20 08:00 Oxygen Flow Rate 0 05/14/20 08:00 Pain Level 6 05/14/20 12:26 Comment 05/13/20 17:30 Intake & Output 05/13/20 05/14/20 05/14/20 23:59 11:59 23:59 Intake Total 3137.5 / 3252.0 2200 / 2200 Output Total 300 / 300 400 / 400 Balance 2837.5 / 2952.0 1800 / 1800 Intake: IV 3137.5 / 3252.0 2200 / 2200 Output: Urine 200 / 200 400 / 400 Estimated Blood Loss 100 / 100 Other: Urine Color Indigo Urine Appearance Cloudy Comment output report to Dr. Schaeffer, order for 250ml LR bolus obtained Emesis Description None
== END 2020-05-14 13:30 | disposition home or self-care (01) ==
LOC: PDS 15:19 → OBS 15:20
PROVIDERS: Admitting Provider Obstetrics & Gynecology; PCP Student in an Organized Health Care Education/Training Program; Visit Provider Obstetrics & Gynecology
PROC: 0UT9FZZ Resection of Uterus, Via Natural or Artificial Opening With Percutaneous Endoscopic Assistance (ICD-10-PCS; CPT 58552; principal; 2020-05-13 08:30)
DX: N93.9 Abnormal uterine and vaginal bleeding, unspecified (principal); R10.2 Pelvic and perineal pain; N73.6 Female pelvic peritoneal adhesions (postinfective)
CPT/HCPCS: 58552; 99233; 88307; J0131; J1100; J1580; J1885; J2001; J2405; J2704; J3010

== ENCOUNTER 2021-07-11 10:54 | Emergency (ER) | payer MEDICAID, SELFPAY ==
[2021-07-11 11:00] VITALS: BP 141/93; RESP 16; TEMP 36.5; O2SAT 97
--- NOTE | 2021-07-11 12:21 | W.ED.GENAD ---
Discharge Plan Disposition Patient Disposition: HOME Condition: Stable Discharge Details Clinical Impression: Laryngitis, Cough Primary Care Provider: Marguerite Riley ED Provider: Inna Ni Home Meds and New Rx's Prescriptions: New benzonatate [Tessalon Perles] 100 mg capsule 100 mg PO TID PRN (Reason: cough) Qty: 14 RF: 0 Continued estradiol [Estrace] 0.5 mg tablet 0.5 mg PO DAILY Qty: 60 RF: 6 omeprazole 40 mg Capsule,Delayed Release(Dr/Ec) 1 tab PO DAILY RF: 0 metformin 1,000 mg Tablet 1,000 mg PO DAILY RF: 0 lisinopril 20 mg tablet 40 mg PO DAILY RF: 0 duloxetine [Cymbalta] 30 mg Capsule,Delayed Release(Dr/Ec) 30 mg PO DAILY RF: 0 cyclobenzaprine 10 mg tablet 10 mg PO TID PRNRF: 0 hydrochlorothiazide 25 mg Tablet 25 mg PO DAILY RF: 0 albuterol sulfate [ProAir HFA] 90 mcg/actuation Hfa Aerosol Inhaler 2 puff INHALATION Q6H PRNRF: 0 Trintellix 20 mg tablet 20 mg PO DAILY RF: 0 Discharge Instructions Instructions: Laryngitis (ED), Acute Cough (ED) Additional Instructions: Drink plenty of fluids and get plenty of rest, including voice rest. Alternate tylenol and motrin as needed and directed for pain. A prescription for cough medication was sent electronically to your pharmacy. Take this as needed and directed for cough. Follow-up with your primary care doctor in 1 week. Return to the emergency department with any worsening or new concerning symptoms such as fever, difficulty breathing or any other concerns. Discharge Data Discharge Date/Time-TO BE ENTERED AT DEPARTURE: 07/11/21 13:15 Discharge Physician: Inna Ni Medical Decision Making 50yo F who presents with hoarse lost voice and nonproductive cough for the past few days. Patient has a hoarse faint voice consistent with laryngitis. Her vitals are within normal limits. Minimal uvular edema otherwise oropharynx unremarkable. No exudates. No lymphadenopathy. Lungs clear bilaterally. Remainder of ENT exam unremarkable. Suspect this is most likely a URI and laryngitis. Do not see medication for labs or imaging at this time and patient agreeable. Discussed with patient this is usually viral. Recommended to continue supportive care with voice rest, fluids, Tylenol and ibuprofen. A prescription for Tessalon Perles sent electronically to her pharmacy. She was given a dose of Decadron here. Advised to follow up with the primary care doctor for re-evaluation. Usual and customary return precautions given prior to discharge. Medical Records Medical records reviewed: Yes I reviewed the patient's medical records. HPI General Mode of arrival: ambulatory. Date/Time Provider Initiated Documentation: 07/11/21 11:12. Limitations to Documentation: no limitations. Information obtained by: patient. HPI Narrative: Patient is a 50-year-old female who presents with dry cough for the last few days, now with lost voice. Patient states her symptoms started with a cough a few days ago, occasionally leading to coughing fits and states she has now lost her voice. She states she has been taking Mucinex. She denies any fever, ear pain, sore throat, chest pain, difficulty breathing, vomiting or diarrhea. She states she is fully vaccinated and denies any known exposure to Covid. Related Data Home Medications Medication Instructions Recorded Confirmed metformin 1,000 mg PO DAILY 11/10/18 07/11/21 omeprazole 1 tab PO DAILY 11/10/18 07/11/21 duloxetine [Cymbalta] 30 mg PO DAILY 03/04/19 07/11/21 albuterol sulfate [ProAir HFA] 2 puff INHALATION Q6H PRN 04/03/20 07/11/21 cyclobenzaprine 10 mg PO TID PRN 04/21/20 07/11/21 hydrochlorothiazide 25 mg PO DAILY 04/21/20 07/11/21 lisinopril 20 mg tablet 40 mg PO DAILY tab 05/27/20 07/11/21 estradiol 0.5 mg tablet 0.5 mg PO DAILY #60 tab 06/25/20 07/11/21 Trintellix 20 mg PO DAILY 07/11/21 07/11/21 benzonatate [Tessalon Perles] 100 mg PO TID PRN #14 cap 07/11/21 Previous Rx's Medication Instructions Recorded estradiol 0.5 mg tablet 0.5 mg PO DAILY #60 tab 06/25/20 benzonatate [Tessalon Perles] 100 mg PO TID PRN #14 cap 07/11/21 Allergies Allergy/AdvReac Type Severity Reaction Status Date / Time sulfamethoxazole Allergy Severe Anaphylaxsi Verified 07/11/21 11:05 [From Bactrim] s trimethoprim [From Bactrim] Allergy Severe Anaphylaxsi Verified 07/11/21 11:05 s naproxen Allergy Intermediate Skin Rash Verified 07/11/21 11:05 cephalexin [From Keflex] AdvReac Severe heart Verified 07/11/21 11:05 racing meloxicam AdvReac Mild Nausea Verified 07/11/21 11:05 General Stated Complaint: RespSymp JAVIER: 4 Review of Systems All systems reviewed & are unremarkable except as noted in HPI and below Constitutional Constitutional: Reports as per HPI, Denies chills and Denies fever(s) Eyes Eyes: Denies blurry vision ENT Ears, Nose, Mouth, and Throat: Denies dizziness, Denies sore throat and Denies throat swelling Cardiovascular Cardiovascular: Denies chest pain and Denies dyspnea Respiratory Respiratory: Reports cough and Denies dyspnea Gastrointestinal Gastrointestinal: Denies abdominal pain, Denies diarrhea and Denies vomiting Genitourinary Genitourinary: Denies hematuria and Denies dysuria Musculoskeletal Musculoskeletal: Denies back pain and Denies numbness Integumentary/Breasts Skin/Breast: Denies lesions and Denies rash Neurologic Neurologic: Denies dizziness, Denies localized weakness and Denies numbness Allergic/Immunologic Allergic/Immunologic: Denies throat swelling FOR[facility]LY [facility] Medical History (Updated 07/11/21 @ 12:52 by Inna Ni DO) History of asthma History of degenerative joint disease Spine History of high blood pressure History of prediabetes Hx of chest pain pt. states this is anxiety related and has had it worked up thru [facility] Hx of gastroesophageal reflux (GERD) Surgical History (Updated 01/05/21 @ 10:22 by Nel Pompa DO) Hx of bladder repair surgery Bladder sling at [facility] Hx of section x2 Social History Smoking/Tobacco Use Status: Current every day Tobacco Type: cigarettes Smoking risk assessment performed?: Yes Alcohol Intake: current Alcohol Intake frequency: holidays/special occasions only Alcohol type: hard liquor Drug use: Never Substance use type: does not use current occupation: Patient does not work she is disabled Do you feel safe at home: Yes Do you feel safe in your relationship?: Yes History History 3 Para 3 Hx # Term Pregnancies 3 Multiple births Hx # Pregnancies Ectopic pregnancies AB induced Hx Number of Living Children AB spontaneous Exam Const General: cooperative, healthy appearing and no acute distress HENMT Head: normal to inspection Ears: hearing grossly normal bilaterally, external ears normal and TM's normal bilaterally General nose exam: external nose normal Face and sinus: normal facial exam Mouth: oral mucosae normal Throat: posterior oropharynx normal Eyes General: appearance normal, both eyes and all related structures EOM: EOM intact bilaterally Neck Neck: normal visual inspection and No submandibular swelling Lymphatic: no lymphadenopathy noted Chest Chest: normal inspection of the chest and no tenderness Resp Effort & Inspection: normal respiratory effort and able to speak in complete sentences Auscultation: clear to auscultation bilaterally Cardio Rate: regular rate Rhythm: regular rhythm GI Inspection: normal to inspection Palpation: soft, not firm, not rigid and nontender Auscultation: normal bowel sounds Back/Spine/Pelvis Thoracic/Lumbar Spine: thoracic and lumbar spine normal to inspection Pelvis: no pain with anterior-posterior compression Skin General skin exam: no rashes or lesions noted Neuro General: patient alert, patient awake and patient oriented x3 Cognition: normal cognition Speech: speech normal Motor: muscle tone normal throughout Sensory Exam: no sensory deficits noted Extrem General: normal to inspection, full ROM, capillary refill normal, no calf tenderness bilaterally and no edema Psych Appearance: grossly normal Mental Status: mental status grossly normal Speech and Movement: speech and movement normal Affect: normal affect Course Vital Signs Vital signs: Vital Signs Temperature 97.7 F 07/11/21 11:00 Respiratory Rate 16 07/11/21 11:00 Blood Pressure 141/93 H 07/11/21 11:00 Pulse Oximetry 97 07/11/21 11:00 Temperature 97.7 F 07/11/21 11:00 Temperature Source Skin 07/11/21 11:00 Respiratory Rate 16 07/11/21 11:00 Respiratory Effort Non-Labored 07/11/21 11:07 Respiratory Depth Normal 07/11/21 11:07 Blood Pressure 141/93 H 07/11/21 11:00 Blood Pressure Position Sitting 07/11/21 11:00 Pulse Oximetry 97 07/11/21 11:00 Oxygen Delivery Method Room Air 07/11/21 11:00 Oxygen Flow Rate 0 07/11/21 11:00 Pain Level 3 07/11/21 11:00
[2021-07-11] MEDS: Dexamethasone 10 MG/ML VIAL PO (13:07)
[2021-07-11 13:12] VITALS: BP 126/80; PULSE 90; RESP 20; TEMP 36.4; O2SAT 98
== END 2021-07-11 13:15 | disposition home or self-care (01) ==
PROVIDERS: Emergency Provider Physician Assistant; PCP Student in an Organized Health Care Education/Training Program
DX: J04.0 Acute laryngitis (principal); R05 Cough
CPT/HCPCS: 99283; J1100

== ENCOUNTER 2021-11-26 00:51 | Outpatient (CLI) | payer MEDICAID, SELFPAY ==
--- NOTE | 2021-11-26 08:59 | DI.MAMMO_ITS ---
Exam(s) MAMMO SCREENING EXAM: MAMMO SCREENING CLINICAL HISTORY: screening,Z12.39 TECHNIQUE: Bilateral full field digital CC and MLO mammographic images were obtained with 3D tomosyn thesis and utilizing computer aided detection (CAD). COMPARISON: Available for comparison. FINDINGS: Masses/Architectural Distortion: None seen. Microcalcifications: No suspicious pleomorphic-type are seen. Skin Thickening/Nipple Retraction: None. IMPRESSION: 1. No significant interval change with no specific features of malignancy noted. 2. Unless there is more urgent need, screening mammography is recommended, as per [employer] guidelines. BI-RADS Category 1 - Negative Breast Density - Category B - Scattered areas of fibroglandular density Breast density category C or D implies that the patient has dense breast tissue. Dense breast tissue is very common and is not abnormal but dense breast tissue can make it harder to find cancer on a ma mmogram. Also, dense breast tissue may increase their breast cancer risk. This information about the result of the mammogram report was provided to the patient to raise their awareness. Use this report when you speak with the patient about their risks for breast cancer, which includes their family hist ory. At that time, you may recommend for more screening tests (Ultrasound or MRI) as they might be us eful based on their risk. A negative radiographic report should not delay biopsy if a dominant or clinically suspicious mass is present. Up to ten percent of cancers are not identified on mammography. A negative report may reinforce clinical impression. Adenosis and dense breasts may obscure an underlying neoplasm. False positive reports average 6 to 10%. Patient will receive a letter notifying them of these results.
== END 2021-11-26 01:11 ==
PROVIDERS: PCP Student in an Organized Health Care Education/Training Program; Visit Provider Obstetrics & Gynecology
DX: Z12.31 Encounter for screening mammogram for malignant neoplasm of breast (principal)
CPT/HCPCS: 77063; 77067

== ENCOUNTER 2023-02-15 01:32 | Outpatient (CLI) | payer MEDICAID, SELFPAY ==
--- NOTE | 2023-02-15 | DI.MAMMO_ITS ---
Exam(s) MAMMO SCREENING EXAM: MAMMO SCREENING CLINICAL HISTORY: SCREENING,Z12.31 TECHNIQUE: Bilateral full field digital CC and MLO mammographic images were obtained with 3D tomosyn thesis and utilizing computer aided detection (CAD). COMPARISON: Available for comparison. FINDINGS: Masses/Architectural Distortion: None seen. Microcalcifications: No suspicious pleomorphic-type are seen. Skin Thickening/Nipple Retraction: None. IMPRESSION: 1. No significant interval change with no specific features of malignancy noted. 2. Unless there is more urgent need, screening mammography is recommended, as per [employer] guidelines. BI-RADS Category 1 - Negative Breast Density - Category B - Scattered areas of fibroglandular density Breast density category C or D implies that the patient has dense breast tissue. Dense breast tissue is very common and is not abnormal but dense breast tissue can make it harder to find cancer on a ma mmogram. Also, dense breast tissue may increase their breast cancer risk. This information about the result of the mammogram report was provided to the patient to raise their awareness. Use this report when you speak with the patient about their risks for breast cancer, which includes their family hist ory. At that time, you may recommend for more screening tests (Ultrasound or MRI) as they might be us eful based on their risk. A negative radiographic report should not delay biopsy if a dominant or clinically suspicious mass is present. Up to ten percent of cancers are not identified on mammography. A negative report may reinforce clinical impression. Adenosis and dense breasts may obscure an underlying neoplasm. False positive reports average 6 to 10%. Patient will receive a letter notifying them of these results.
== END 2023-02-15 01:52 ==
LOC: DI 01:32
PROVIDERS: PCP Student in an Organized Health Care Education/Training Program
DX: Z12.31 Encounter for screening mammogram for malignant neoplasm of breast (principal)
CPT/HCPCS: 77063; 77067

== ENCOUNTER 2023-02-15 08:56 | Outpatient (CLI) | payer MEDICAID, SELFPAY ==
[2023-02-15 09:50] LABS: Abs Immature Grans 0.04 10^3/uL (0.0-0.06); Absolute Basophil Count 0.04 10^3/uL (0.0-0.2); Absolute Eosinophil Count 0.34 10^3/uL (0.0-0.7); Absolute Lymphocyte Count 2.77 10^3/uL (1.2-3.4); Absolute Monocyte Count 0.59 10^3/uL (0.1-0.8); Absolute Neutrophil Count 4.37 10^3/uL (1.2-6.7); Basophils % 0.5; Eosinophils % 4.2; HCT 37.7 % (36.0-46.0); HGB 12.9 g/dL (11.2-15.7); Immature Grans % 0.5; MCH 29.9 pg (27.0-33.0); MCHC 34.2 % (32.0-36.0); MCV 87 fL (80-95); MPV 11.4 fL (8.0-11.0); Monocytes % 7.2; Neutrophils % 53.6; Platelet Count 185 10^3/uL (130-400); RBC 4.32 10^6/uL (3.93-5.22); RDW 12.3 % (11.7-14.6); RDW-SD 39.8 fL; WBC 8.15 10^3/uL (4.4-10.8)
[2023-02-15 10:09] LABS: PTT Activated 24.1 sec (21.5-31.9); Prothrombin Time 10.1 sec (9.3-11.0)
== END 2023-02-15 08:57 | disposition home or self-care (01) ==
LOC: LBO 08:56
PROVIDERS: PCP Student in an Organized Health Care Education/Training Program; Visit Provider Student in an Organized Health Care Education/Training Program
DX: M47.26 Other spondylosis with radiculopathy, lumbar region (principal); E11.9 Type 2 diabetes mellitus without complications; Z51.81 Encounter for therapeutic drug level monitoring
CPT/HCPCS: 36415; 83036; 85025; 85610; 85730

== ENCOUNTER 2024-07-12 00:19 | Outpatient (CLI) | payer MEDICAID, SELFPAY ==
--- NOTE | 2024-07-12 | DI.MAMMO_ITS ---
Exam(s) MAMMO SCREENING EXAM: MAMMO SCREENING CLINICAL HISTORY: SCREENING, Z12.31 TECHNIQUE: Mammograms were interpreted according to the usual protocol including computer analysis w [employer] CAD system, tomosynthesis and C-view imaging. COMPARISON: 2013 through 2022 FINDINGS: The breasts are composed of scattered fibroglandular densities, Breast Density category B. No suspicious masses or suspicious microcalcifications are seen. No skin thickening or abnormal axillary lymph nodes are seen. There has been no significant change from prior exams. IMPRESSION: BI-RADS Category 1, Negative mammogram Yearly screening mammography is recommended. Breast Density - Category B, scattered fibroglandular densities. A negative radiographic report should not delay biopsy if a dominant or clinically suspicious mass is present. Up to ten percent of cancers are not identified on mammography. A negative report may reinforce clinical impression. Adenosis and dense breasts may obscure an underlying neoplasm. False positive reports average 6 to 10%. Patient will receive a letter notifying them of these results.
--- OUTSIDE RECORDS SUMMARY | 2024-07-12 00:25 | XMS_ITS | Encounter Summary ---
Author Organization [facility] Address [facility] [place] [address] Care Team Providers Care Mobile Product Manager Name Role Phone Gema Oliveira DO Primary Care Provider +1- [phone] Reason for Referral * Physical Therapy (Routine) - Authorized Specialty Diagnoses / Procedures Referred By María Elena mcdaniel Referred To Contact Physical Therapy Diagnoses Spinal instability of lumbosacral region Amber Palmer, PA [address] [place] [address] [place] [address] Physical Therapy, [facility],[address] [address] Referral ID Status Reason Start Date Expiration Date Visits Requested Visits Authorized [id number] Authorized Evaluate and Treat 06/19/2024 12/16/2024 12 12 Encounter Details Date Type Department Care Team (Late st Contact Info) Description 06/19/2024 9:40 AM EDT Office Visit Neurosurgery at [address] [address] Bret Nicholson MD [facility] [place] [address] Spinal instability of lumbosacral region; Lumbar back pain Social History Tobacco Use Types Packs/Day Years Used Date Smoking Tobacco: Every Day Cigarettes 0.5 30.6 Started: 05/12/1993; Last attempted to quit: 05/12/2023 Smokeless Tobacco: Never Tobacco Cessation:Ready to Q uit: Not Asked; Counseling Given: Not Answered Comments:Quit 5 wks ago Alcohol Use Standard Drinks/Week Comments Yes 0 (1 standard drink = 0.6 oz pur e alcohol) Very rare Overall Financial Resource Strain (CARDIA) Answe r Date Recorded How hard is it for you to pa y for the very basics like food, housing, medical care, and heating? Patient declined 02/10/2023 Exercise Vital Sign Answer Date Recorde d On average, how many days pe r week do you engage in moderate to strenuous exercise (like a brisk walk)? 0 days 02/10/2023 On average, how many minutes do you engage in exercise at this level? 0 min 02/10/2023 Hunger Vital Sign Answer Date Recorded Within the past 12 months, y ou worried that your food would run out before you got the money to buy more. Patient declined Within the past 12 months, t he food you bought just didn't last and you didn't have money to get more. Patient declined PRAPARE - Transportation Answer Date Re corded In the past 12 months, has l ack of transportation kept you from medical appointments or from getting medications? No 01/19 In the past 12 months, has l ack of transportation kept you from meetings, work, or from getting things needed for daily living? No 02/10/2023 Housing Stability Vital Sign Answer Jorge e Recorded In the last 12 months, was t here a time when you were not able to pay the mortgage or rent on time? No 02/11/20 23 [address] of Places Lived in the Last Year Not on f ile 02/10/2023 In the last 12 months, was t here a time when you did not have a steady place to sleep or slept in a alf (including now)? Patient refused 02/10/2023 IPV Inpatient Questions Answer Date Recorded Does Anyone Try to Keep You From Having Contact with Others or Doing Things Outside Your Home? no 12/15/2023 Feels Threatened by Someone no 11/21 Feels Unsafe at Home or Work/School no 12/15/2023 Physical Signs of Abuse Present no 12/15/2023 Sex and Gender Information Value Date Recorded Sex Assigned at Not on file Gender Identity Not on file Sexual Orientation Not on file documented as of this encounter Last Filed Vital Signs Vital Sign Reading Time Taken Comments Blood Pressure 142/93 06/19/2024 9:37 AM EDT Pulse 109 06/19/2024 9:37 AM EDT Temperature 36.2 ??C (97.2 ??F) 06/19/2024 9:37 AM ED T Respiratory Rate - - Oxygen Saturation 96% 06/19/2024 9:37 AM EDT Inhaled Oxygen Concentration - - Weight 118.8 kg (262 lb) 06/19/2024 9:37 AM EDT Height 172.7 cm (5' 8) 06/19/2024 9:37 AM EDT Body Mass Index 39.84 06/19/2024 9:37 AM EDT documented in this encounter Progress Notes * Amber Palmer PA - 06/19/2024 9:40 AM EDT [facility] Section of Neurosurgery Department of Surgery Patient Identification Tracie Layton [id number] : 1970 Date of Visit: 06/19/24 CC:LBP HPI: 53yoF, hx of L4-[address] decomp [address] Dr[address] Nicholson on 12/15/23, she was progressing well and feeling improvement from her surgery until approx 2 wks ago. At that time the patient had new acute LBPthat stays localized near her surgical site. She denies and leg pain, weakness or paresthesia, she denies any new bowel or bladder incontinence. She is able to ambulate, but endorses severe pain withwalking and sitting upright. The patient came to NSGY clinic today for evaluation of her new intractable LBP. Allergies: Allergies Allergen Reactions Bactrim [Sulfamethoxazole-Trimethoprim] Anaphylaxis Trimethoprim Anaphylaxis Adhesive Tape Rash Aleve [Naproxen Sodium] Rash Per neuro team, patient has tolerated ketorolac in the past Keflex [Cephalexin] Other (See Comments) Racing heart Meloxicam Nausea Only Amlodipine Nausea And Vomiting Meds: Prior to Admission medications Medication Sig Start Date End Date Taking? Authorizing Provider omeprazole (PriLOSEC) [address] capsule Take 1 capsule by mouth daily. 06/18/24 Yes Abbe Oliveira DO varenicline (Chantix) 0.5 mg tablet Take 1 tablet by mouth daily for 3 days, THEN 1 tablet 2 times daily for 27 days. 06/18/24 07/18/24 Yes Gema Oliveira DO metoprolol succinate XL (Toprol-XL) 50 mg ER 24 hr tablet Take 1 tablet by mouth 2 times daily. 06/18/24 Yes Gema Oliveira DO atorvastatin (Lipitor) 40 mg tablet Take 1 tablet by mouth daily. 06/18/24 Yes Gema Oliveira DO ondansetron ODT (Zofran-ODT) 4 mg disintegrating tablet DISSOLVE 1 TABLET ON THE TONGUE EVERY 8 HOURS NEEDED FOR NAUSEA 06/13/24 Yes Gema Oliveira DO HYDROcodone-acetaminophen ([place]) 7.5-325 mg tablet Take 1 tablet by mouth every 6 hours as needed for Pain. 06/12/24 Yes Bret Nicholson MD lisinopriL (Zestril) 40 mg tablet Take 1 tablet by mouth daily. 06/04/24 Yes Gema Oliveira DO blood sugar diagnostic strips Strip 1 strip by Other route 4 times daily. Use as instructed Prefersone touch Ultra, but make sure strips ordered match machine dispensed 05/08/24 Yes Abbe Oliveira DO benzonatate (Tessalon) 100 mg capsule Take 1 capsule by mouth 3 times daily as needed for Cough. 04/22/24 Yes Martínez Cason MD codeine-guaiFENesin (guaiFENesin AC) 10-100 mg/5 mL Liquid Take 5 mLs by mouth 3 times daily as needed for Cough. 04/22/24 06/19/24 Yes Martínez Cason MD albuteroL (Ventolin HFA) 90 mcg/actuation inhaler (HFA) INHALE TWO PUFFS INTO THE LUNGS EVERY 4 HOURS NEEDED FOR WHEEZING 04/18/24 Yes Gema Oliveira DO ipratropium-albuteroL (Duoneb) 0.5 mg-3 mg(2.5 mg base)/3 mL Solution for Nebulization INAHLE THE CONTENTS OR 1 VIAL BY NEBULIZATION EVERY 4 HOURS 04/17/24 Yes Gema Oliveira DO metFORMIN (Glucophage) 1,000 mg tablet Take 1 tablet by mouth daily. 02/14/24 Yes Gema Oliveira DO dulaglutide (Trulicity) 0.75 mg/0.5 mL Pen Injector Inject 0.75 mg subcutaneously once a week. Yes PROVIDER, HISTORICAL acetaminophen (Tylenol) 325 mg tablet Take 2 tablets by mouth every 4 hours as needed for Pain. 12/16/23 Yes Eufemia Ballard PA cyclobenzaprine (Flexeril) 10 mg tablet Take 1 tablet by mouth 3 times daily as needed for Muscle spasms. 12/16/23 Yes Eufemia Ballard PA pramipexole (Mirapex) 0.125 mg tablet Take three tablets by mouth nightly 11/06/23 Yes Gema Oliveira DO hydroCHLOROthiazide (Hydrodiuril) 25 mg tablet Take 1 tablet by mouth daily. Patient taking differently: Take 25 mg by mouth every morning. 08/13/23 Yes Gema Oliveira DO Trintellix 20 mg tablet TAKE ONE TABLET BY MOUTH EVERY DAY Patient taking differently: Take 20 mg by mouth every morning. 05/16/23 Yes Tasneem Galdamez MD Blood-Glucose Meter Misc 1 kit by [facility].(Non-Drug; Combo Route) route 4 times daily. Prefers one touch Ultra, but make sure strips ordered match machine dispensed 12/27/22 Yes Tasneem Galdamez MD Advair Diskus 100-50 mcg/dose Disk with Device Inhale 1 puff into the lungs every 12 hours. Brand name 05/30/22 Yes Tasneem Galdamez MD diclofenac (Voltaren) 1 % Gel APPLY TOPICALLY TO THE AFFECTED AREA FOUR TIMES DAILY NEEDED 10/12/21 Yes Tasneem Galdamez MD Incontinence Pad, Liner, Disp Pad 1 each by [facility].(Non-Drug; Combo Route) route every 4 hours as needed (for incontinence). 10/03/19 Yes Marguerite Riley MD methocarbamoL (Robaxin) 750 mg tablet Take 1 tablet by mouth 3 times daily as needed for up to 30 days. 06/19/24 07/19/24 Amber Palmer PA PMHx: Past Medical History: Diagnosis Date Agoraphobia Alcohol abuse Anxiety 09/17/2020 Diabetes Gastroesophageal reflux H/O suicide attempt 10/29/2014 Overdose in 1999 High blood pressure Hip problem History of cervical cancer 2001 s/p LEEP??? in [place] HTN (hypertension) Obstructive lung disease (generalized) 09/25/2018 Post-traumatic headache 05/31/2014 fell out of a hammock PSHx: Past Surgical History: Procedure Laterality Date CERVIX SURGERY LEEP SECTION x2 COLONOSCOPY CT GUIDED INJECTION SI JOINT 03/21/2023 CT Guided Injection SI Joint 03/21/2023 Margi Gomez MD [facility] RAD CT SCAN ENDOMETRIAL ABLATION HYSTERECTOMY laparoscopic for abnormaluterine bleeding PRO ALLOGRAFT FOR SPINE SURGERY ONLY MORSELIZED N/A 12/15/2023 ALLOGRAFT FOR SPINE SURGERY ONLY; MORSELIZED (WRVU *) performed by Bret Nicholson MD at [facility] PRO ARTHRODESIS COMBINED TECHNIQUE 1 INTERSPACE LUMBAR N/A 12/15/2023 ARTHRODESIS, COMB. POST OR POSTEROLAT W/LAMI &/OR DISC SINGLE INTERSPACE; LUMBAR (WRVU 26.8) performed by Bret Nicholson MD at [facility] MA[facility] OR PRO AUTOGRAFT SPINE SURGERY LOCAL FROM SAME INCISION N/A 12/15/2023 AUTOGRAFT FOR SPINE SURGERY ONLY, SAME INCISION (WRVU *) performed by Bret Nicholson MD at [facility] MAIN OR PRO COLONOSCOPY, REMV LESN, SNARE N/A 06/11/2015 COLONOSCOPY, POLYPECTOMY, REMOVAL LESION BY SNARE performed by Larry Ryna MD at [facility] ENDOSCOPY PRO INSERT BIOMCHN DEV INTERVERTEBRAL DSC SPC W/ARTHRD N/A 12/15/2023 INSERTION INTERBODY BIOMECH DEV TO INTERVEBRAL DISC SPACE, EA INTERSPACE (WRVU 4.25) performed by Bret Nicholson MD at [facility] MA[facility] OR PRO BURROUGHS FACETEC/FORAMOT DRG ARTHRD LUMBAR 1 VRT SGM N/A 12/15/2023 LAMINECTOMY,FACETECTOMY,OR FORAMINOTOMY,DURING POSTERIOR INTERBODY ARTHRODESIS,LUMBAR; SINGLE VERTEBRAL SEGMENT (WRVU 4.25) performed by Bret Nicholson MD at [facility] MAIN OR PRO POSTERIOR NON-SEGMENTAL INSTRUMENTATION N/A 12/15/2023 POSTERIOR SPINAL NON-SEGMENTAL INST.(ONE SPACE) (WRVU 12.52) performed by Bret Nicholson MD at [facility] MAIN OR PRO REMV/REVS SLING FOR STRES INCONTINENCE N/A 06/06/2017 SLING, REVISEOR REMOVE, REPLACE, VAGINALAPPROACH, SYNTHETIC\FASCIA (WRVU 11.15) performed by Frankie Richards MD at [facility] OSC PRO SLING OPER STRES INCONTINENCE N/A 06/08/2016 URETHRAL SUSPENSION, SLING\FASCIA OR SYNTHETIC performed by Frankie Richards MD at [facility] MAIN OR PRO STEROTACTIC CPTR ASSTD PX SPINAL N/A 12/15/2023 STEREOTACTIC COMPUTER-ASSTD NAVIGATIONAL SPINAL (WRVU 3.75) performed by Bret Nicholson MD at [facility] MAIN OR PRO UPPER GI ENDOSCOPY, BIOPSY 01/08/2014 EGD WITH BIOPSY performed by Ilya Whitney MD at [facility] ENDOSCOPY PRO UPPER GI ENDOSCOPY, BIOPSY N/A 06/21/2017 UPPER GASTROINTESTINAL ENDOSCOPY,WITH BIOPSY SINGLE OR MULTIPLE (WRVU 2.49) performed by Rickie Pineda MD at [facility] ENDOSCOPY PRO UPPER GI ENDOSCOPY, DIAGNOSTIC N/A 06/21/2017 EGD, UPPER GI ENDOSCOPY performed by Rickie Pineda MD at [facility] ENDOSCOPY TUBAL LIGATION 1992 Fam HX: Family History Problem Relation Age of Onset Brain Tumor Mother metastatic from lung Lung Cancer Mother No Known Problems Father Coronary Artery Disease Early Onset Brother 43 smoker Breast Cancer Maternal Aunt 60 Ovarian Cancer Neg Hx Colorectal Cancer Neg Hx Pancreatic Cancer Neg Hx Endometrial Cancer Neg Hx Review of systems: denies radiculopathy, no bowel or bladder incontinence. Focal LBP Neurological Exam: Mental Status: Alert and oriented Attention and concentration are normal. Language is fluent. Fund of knowledge is appropriate. Motor: Bilat LE 5/5; IP, HF, KE, KF, EHL, DF and PF - no focal weakness noted Sensory: equal/normal bilat LE sensation Gait: antagic/painful gait, normal balance Studies Reviewed: MRI Lumbar spine: no focal central lumbar stenosis, good decompression. Patient does have left sided L5-S1 foraminal stenosis UR AP/LAT/Flex/Ext Lumbar XR: pending Rad official read -No acute changes or abnormalities noted compared to prior UR AP/LAT L-spine x- rays, no hardware failure/no fx -F/e show no abnormal mvmt or instability noted with dynamic views. Assessment/Plan: 53F, acute on chonic LBP, spontaneous onset of new acute intractable LBP 2 wks ago. The patient is approx 6 months s/p L4-5 decomp lami and PSF, she was doing very well until this new onset of pain. She endorses the pain is approx 5/10 today and stays at midline with no radiation of pain down her legs. The MRI revealed L5-S1 left sided foraminal stenosis, however, pt denies LE symptoms. Her UR flex/ext x-rays do not show any acute changes or abnormal mvmts on the dynamic views.We have discussed the different conservative treatment options; Physical therapy, Pain mgmt referral, LESIs and at this time the patient would like to proceed with Physical therapy. I have sent a referral to her local PT clinic; [facility]. I have also sent a Rx for Robaxin 750mg PO TID to help with muscle tightness/spasms in her low back. We will plan to see Ms. Ai dominguez in NSGY clinic afterher PT eval/treatment, or I have explained if she has any worsening symptoms or new LE radiculopathy please call for a more urgent appt follow up. The patient has expressed full understanding and allher current questions have been answered. New acute LBP, 6 mo s/p L4-5 decomp +PSF -PT referral -Robaxin 750mg PO TID, PRN called to Pharmacy -Pt to follow up after PT completed or for new/inc symptoms Amber Palmer [facility] Neurosurgery documented in this encounter Plan of Treatment Upcoming Encounters Date Type Department Care Team (Late st Contact Info) Description 09/05/2024 9:00 AM EDT Office [place] [address] Gema Oliveira, DO [facility] [place] [address] Scheduled Referrals Name Type Priority Associated Diagnoses Orde r Schedule Referral to Physical Therapy Outpatient Referral Routine Spinal instability of lumbosacral region Ordered: 06/19/2024 documented as of this encounter Results * XR Lumbar Spine AP Flexion and Extension Only (06/19/2024 10:35 AM EDT) WORKSTATION ID [id number] RAD Anatomical Region Laterality Modality L-spine N/A Digital Radiogra phy Impressions 06/20/2024 7:36 AM EDT No evidence of instability. Thank you for letting us participate in the care of this patient. ??If you are a health care provider and have any questions regarding this report, please contact the number below. ??For patients who have questions please contact the health critical care nurse that requested your imaging first. ? Narrative 06/20/2024 7:36 AM EDT EXAMINATION: XR LUMBAR SPINE AP FLEXION AND EXTENSION ONLY CLINICAL HISTORY: instability/ s/p L4/5 fusion. ??intractable LBP M53.2X7, Spinal instabilities, lumbosacral region TECHNIQUE: Flexion and extension lateral views of the lumbar spine COMPARISON: March 13, 2024 FINDINGS: Status post posterior instrumented fusion L4-L5 with intervertebral disc spacer. Hardware is intact. There is no significant abnormality of alignment. No significant abnormality of motion between flexion and extension images. Procedure Note Alex Machado MD - 06/20/2024 EXAMINATION: XR LUMBAR SPINE AP FLEXION AND EXTENSION ONLY CLINICAL HISTORY: instability/ s/p L4/5 fusion. intractable LBP M53.2X7, Spinal instabilities, lumbosacral region TECHNIQUE: Flexion and extension lateral views of the lumbar spine COMPARISON: March 13, 2024 FINDINGS: Status post posterior instrumented fusion L4-L5 with intervertebral discspacer. Hardware is intact. There is no significant abnormality of alignment. No significant abnormality of motion between flexion and extensionimages. IMPRESSION No evidence of instability. Thank you for letting us participate in the care of this patient. If youare a health care provider and have any questions regarding this report,please contact the number below. For patients who have questions please contactthe health critical care nurse that requested your imaging first. Bret Nicholson MD IMG DX ORDERABLES documented in this encounter Visit Diagnoses Diagnosis Spinal instability of lumbosacral region Lumbar back pain Lumbago Spinal instability of lumbosacral region documented in this encounter Care Teams Mobile Product Manager Relationship Specialty Start Date End Date Gema Oliveira DO [facility] [place] [address] PCP - General General Internal Medicine 05/17/23 documented as of this encounter
--- OUTSIDE RECORDS SUMMARY | 2024-07-12 00:25 | XMS_ITS | Encounter Summary ---
Author Organization [facility] Address [facility] [place] [address] Care Team Providers Care Fabric And Accessories Estimator Name Role Phone Gema Oliveira DO Primary Care Provider +1- [phone] Reason for Visit * Reason Onset Date Comments Dysuria 06/30/2024 Encounter Details Date Type Department Care Team (Late st Contact Info) Description 06/30/2024 Nurse Triage Internal Medicine at [address] [address] Gema Oliveira, DO [facility] [place] [address] Dysuria Social History Tobacco Use Types Packs/Day Years Used Date Smoking Tobacco: Every Day Cigarettes 0.5 30.6 Started: 05/12/1993; Last attempted to quit: 05/12/2023 Smokeless Tobacco: Never Comments:Quit 5 wks ago Alcohol Use Standard [...] place to sleep or slept in a care home (including now)? Patient refused 02/10/2023 IPV Inpatient [...] on file documented as of this encounter Miscellaneous Notes * Telephone Encounter - Joya Mcdonald RN - 07/01/2024 2:55 PM EDT Reason for Call: Dysuria Brief Health History (Onset, Location, Duration, Characteristics, Aggravating Factors, Relieving Factors/Radiation,Timing, and Severity): Beginning of May, no fevers or chills, pink tinge on TP comes and goes, no vaginal discharge, no burning/urgency/frequency, no recent injuries, can get some cramping in lower abdomen, cramping comesand goes, has chronic lower back pain, can't tell if pain is kidneys or norm, 8/10 when at its worse, pain can radiate to side, states she is in agony before done grocery shopping from walking around, sitting in a car causes back pain to increase, laying down can help the pain feel better, bilateral back pain Worsening Symptoms: Emphasized symptoms that require emergent/urgent care according to EPIC protocol utilized or other documented decision support tool. Patient able to teach back worsening symptoms and action to take. Patient/Caregiver demonstrates understanding via teach back: Yes pt aware to present to UC/ED if she spikes a fever, develops an increase in pain, develops urgency/frequency/burning Disposition: See Today in Office patient scheduled at tomorrow morning, did not want to go to anurge care today Reason for Disposition Side (flank) or lower back pain present Protocols used: Urinary [id number] documented in this encounter Plan of Treatment Upcoming Encounters Date Type Department Care Team (Late st Contact Info) Description 09/05/2024 9:00 AM EDT Office Visit Internal Medicine at [address] [address] Gema Oliveira DO [facility] [address] [place] [address] documented as of this encounter Visit Diagnoses Not on filedocumented in this encounter Care Teams Fabric And Accessories Estimator Relationship Specialty Start Date End Date Gema Oliveira DO [facility] [place] [address] PCP - General General Internal Medicine 05/17/23 documented as of this encounter
--- OUTSIDE RECORDS SUMMARY | 2024-07-12 00:25 | XMS_ITS | Encounter Summary ---
Author Organization [facility] Address [facility] [place] [address] Care Team Providers Care Bridge Ironworker Name Role Phone Gema Oliveira DO Primary Care Provider [phone]- [phone] Reason for Visit * Reason Comments Back Pain Back pain started in the beginning of May, states has had blood in the urine, and sometimes while wiping will have a pinkish look on the toilet paper, denies burning with urination. Encounter Details Date Type Department Care Team (Late st Contact Info) Description 07/02/2024 9:30 AM EDT Office [place] [id number] Sherin Espinoza MD [facility] [place] [address] Hematuria, unspecified type; Lumbar back pain Social History Tobacco Use [...] place to sleep or slept in a jail (including now)? Patient refused 02/10/2023 IPV Inpatient [...] Sign Reading Time Taken Comments Blood Pressure 152/101 07/02/2024 9:21 AM EDT Pulse 87 07/02/2024 9:21 AM EDT Temperature 37 ??C (98.6 ??F) 07/02/2024 9:21 AM EDT Respiratory Rate 16 07/02/2024 9:21 AM EDT Oxygen Saturation 96% 07/02/2024 9:21 AM EDT Inhaled Oxygen Concentration - - Weight - - Height - - Body Mass Index - - documented in this encounter Patient Instructions * Patient Instructions* Sherin Espinoza MD - 07/02/2024 9:30 AM EDT It was wonderful to meet you today, Tracie Layton! We discussed your back pain and urinary symptoms at your appointment. Please see summary and recommendations below: Complete lab work today. Urine - lab results penidng, no signs of UTI on initial urine testing in clinic. Back pain - It seems that your persistent back pain may be muscular in nature. Physical therapy will likely be the most helpful. You can also try taking Lyrica to help with pain. Thank you for allowing me to participate in your healthcare! I look forward to seeing you again at our next appointment. Please contact the clinic if any questions or concerns arise in the meantime. Best wishes, Dr. Espinoza documented in this encounter Progress Notes * Sherin Espinoza MD - 07/02/2024 9:30 AM EDT Images from the original note were not included. Internal Medicine Date: 07/03/2024 Location: [address] Patient: Tracie Layton Age: 53 y.o. General Internal Medicine Outpatient Progress Note Subjective: Patient ID: Tracie Layton is a 53 y.o. female with PMH of chronic back pain, spondylolisthesis L4-L5 s/p repair 11/2023, HTN, HLD, PTSD, ADD, Depression, anxiety, agoraphobia, elevated BMI, GERD, whopresenting for back pain and hematuria. Chief Complaint Patient presents with Back Pain Back pain started in the beginning of May, states has had blood in the urine, and sometimes while wiping will have a pinkish look on the toilet paper, denies burning with urination. #Back pain - Hx of chronic back pain - s/p L4-5 decomp and spinal fusion with Dr. Nicholson on 12/15/23 - Pain improved after surgery, started to come back since May - Pain is located bilaterally, at surgical scar sites in lumbar region, and wraps laterally around back. - No radiation of pain down legs. Denies fecal incontinence and saddle anesthesia, endorses chronicurinary incontinence. - Reports walking slowly, by the end of grocery shopping in significant pain. - Saw NSGY 06/19- XR WNL, MRI showing L5-S1 moderate foraminal stenosis - Prescribed PT and Leslie - Has not yet started PT, scheduled for next Monday - Pain has not worsened since that visit, but has persisted. - Positioning helps temporarily: more comfortable with laying, eases with sitting forward - Unable to relieve pain with any intervention: - Leslie didn't help, no longer taking - Muscle relaxant not helping - Icy hot not helping - Diclofenac not helping - Heating pad/ice not helpng. #Hematuria - Blood in urine 05/23, described as brown in color - Was not dehydrated at that time - Has occurred several times - No dysuria or urinary frequency - has incontinence at baseline (has sling) - no abdominal pain - occasional cramping - many foods don't taste good 06/17/2024 Behavioral Health Responses (QBHI) Total PHQ-9 20 (Severe Depression) PHQ9 Total Score (Range 0-27) 20 (Severe Depression) Total FÉLIX-7 19 (Severe Anxiety) GAD7 Total Score (Range 0-21) 19 (Severe Anxiety) Audit Screener No Drug Screener No Objective: BP (!) 152/101 (BP Location (NBP): Left arm, Patient Position: Sitting, BP Cuff Sizes: Large Adult (32-43 cm)) Pulse 87 Temp 37 ??C (98.6 ??F) (Oral) Resp 16 LMP 10/01/2019 (Approximate) SpO2 96% Wt Readings from Last 3 Encounters: 06/19/24 118.8 kg (262 lb) 06/18/24 119 kg (262 lb 6.4 oz) 04/22/24 120.8 kg (266 lb 6.4 oz) Physical Exam General: 53 y.o. female sitting in chair comfortably, in no acute distress. HEENT: Normocephalic, atraumatic. Mucous membranes moist. Cardiovascular: Warm, well-perfused. Respiratory: No increased work of breathing. Abdominal: Soft, non-tender, non-distended. Normoactive bowel sounds. Musculoskeletal: Tenderness to palpation of bilateral paraspinal muscles, tight/tense to palpation.No skin lesions or bruising present at this site. Neurologic: Alert. Hearing intact to voice. Speech and language fluent. Normal muscle bulk and tone. Moving extremities spontaneously. Skin: No lesions or rash appreciated. Psychiatric: Responding appropriately. Thought content linear and logical. Assessment and Plan: Summary Statement: Tracie Layton is a 53 y.o. female with chronic back pain, spondylolisthesis L4-L5 s/p repair 11/2023, HTN, HLD, PTSD, ADD, Depression, anxiety, agoraphobia, elevated BMI, GERD, whopresenting for an acute care visit for back pain and hematuria. See problem-based assessment and plan below. #Hematuria, unspecified type Clinic urine dipstick within normal limits. Symptoms seems unlikely to be UTI, although back pain is present at the CVA. Brown urine raises concern for possible biliary process, but recent LFTs were normal. Will repeat BMP today to assess kidney function. - Urinalysis with reflex Culture - Basic Metabolic Panel #Lumbar back pain Pt presents with lumbar back pain which is bilateral. MRI findings do not explain bilateral nature of pain. It is possible that she has developed post- operative adhesions. However, the muscular tightness on exam raises possibility of an MSK process, which will be best managed with PT. She has not had success with most pain-management modalities, but has not yet tried neuropathic pain agent. - pregabalin (Lyrica) 25 mg capsule; Take 1 capsule by mouth 2 times daily. - Recommend PT as already scheduled - Consider massage - Follow-up with Neurosurgery Return if symptoms worsen or fail to improve. Respectfully signed, Sherin Espinoza MD Internal Medicine, PGY-2 [facility] * Mere Houston MD - 07/02/2024 9:30 AM EDT The case was discussed in person at the time of the visit or immediately after the visit. The assessment and plan were formulated in discussion with me and I agree with them as documented. I have reviewed the history, physical exam, assessment and plan with the resident. Major issues discussed today: 53 yo with htn, hld, dm, depression, chronic back pain, ptsd Here for persistent back pain, ? Hematuria L4,5 decompression and spinal fusion in November, with improvement in pain May noted recurrence of pain, bilaterally, radiates laterally. Follow up imaging with correctional casework specialist, imaging ok, given PT, and norco. No relief with norco, icy hot, lidicaine, topical voltaran No saddle anesthesia, no bowel, bladder incontinence Notes since May 23 pink tinged toilet paper, dk urine in the water. No dysuria, no frequency, Notes baseline urinary incontinence, had sling in the past PE: 152/[address] Espinoza's note for details of the exam Plan: chronic back pain, may be secondary to post surgical scar tissue, ? arachnoiditis, does not appear to be related to urinary symtpoms encourage pt with massage, trial of lyrica 25 mg tid to start Formal urinalysis, microscopy documented in this encounter Plan of Treatment Upcoming Encounters Date Type Department Care Team (Late st Contact Info) Description 09/05/2024 9:00 AM EDT Office [place] [address] [facility] [place] [address] documented as of this encounter Procedures Procedure Name Priority Date/Time Associated Diagnosis Comments URINALYSIS WITH REFLEX CULTURE Routine 07/02/2024 9:25 AM EDT Hematuria, unspecified type documented in this encounter Results * Basic Metabolic Panel (07/02/2024 11:01 AM EDT) Glucose 108 65 - 199 mg/dL 07/02/2024 11:51 AM EDT [facility] Comment:Glucose Concentratio n >=200 mg/dL plus symptoms is consistent with Diabetes Mellitus. Blood Urea Nitrogen 12 8 - 18 mg/dL 07/02/2024 11:51 AM EDT [facility] Creatinine 1.06 0.70 - 1.20 mg/dL 07/02/2024 11:51 AM [facility] Sodium 142 135 - 145 mMol/L 07/02/2024 11:51 AM [facility] Potassium 4.3 3.5 - 5.0 mMol/L 07/02/2024 11:51 AM [facility] Chloride 102 98 - 107 mMol/L 07/02/2024 11:51 AM [facility] Carbon Dioxide 27 22 - 31 mMol/L 07/02/2024 11:51 AM [facility] Anion Gap 13 5 - 15 mMol/L 07/02/2024 11:51 AM [facility] Calcium 10.1 8.5 - 10.5 mg/dL 07/02/2024 11:51 AM [facility] Est Glomerular Filtration Rate - Female 63 mL/min/1. 73 m?? 07/02/2024 11:51 AM [facility] Comment: This patient's estimated GFR was calculated using the 2020 CKD-EPI equation. The estimated GFR can vary from the measured GFR by up to 30% in the absence of rapidly changing kidney function. Assessment of the estimated GFR is not appropriate when creatinine concentrations are rapidly changing. For clinical situations in which a more precise estimate of GFR is necessary, consider alternative methods of GFR estimation such as a 24-hour urine creatinine clearance. Assignment of CKD stage 1 - 5 for patients with an eGFR near the transition point between stages may be based on clinical assessment of muscle mass and symptoms in addition to eGFR. Link: eGFR Calculator [employer] Fasting Status No 07/02/2024 11:51 AM [facility] Blood VENOUS BLOOD SPECIMEN / Unknown Venipuncture / Unknown 07/02/2024 11:01 AM EDT 07/02/2024 11:01 AM EDT Mere Houston MD CHEMISTRY ORDERABLE S [facility] [place] [address] * (ABNORMAL) Urinalysis with reflex Culture (07/02/2024 9:25 AM EDT) Glucose, Urine Dipstick Negative Negative 07/02/2024 10:59 AM [facility] Protein, Urine Dipstick Negative Negative 07/02/2024 10:59 AM [facility] Bilirubin, Urine Dipstick Negative Negative 07/02/2024 10:59 AM [facility] Comment:Clinical correlation required for positive Urine Bilirubin results as false positive may occur with some drugs and drug related products. If a false positive is suspected a serum total bilirubin should be considered if clinically indicated. Urobilinogen, Urine Dipstick Normal Normal, 0.2 mg/dL, 1.0 mg/dL 07/02/2024 10:59 AM [facility] pH, Urine (dipstick) 5.5 5.0 - 8.0 07/02/2024 10:59 AM [facility] Blood, Urine Dipstick Negative Negative 07/02/2024 10:59 AM [facility] Ketone, Urine Dipstick Trace(A) Negative 07/02/2024 10:59 AM [facility] Nitrite, Urine Dipstick Negative Negative 07/02/2024 10:59 AM [facility] Leukocytes, Urine Dipstick Negative Negative 07/02/2024 10:59 AM [facility] Specific [place] Urine Automated 1.025 1.005 - 1.030 07/02/2024 10:59 AM [facility] Appearance, Urine Dipstick Clear Clear 07/02/2024 10:59 AM [facility] Color, Urine Dipstick Yellow Yellow, Dark Yellow 07/02/2024 10:59 AM [facility] Urine URINE SPECIMEN OBTAINED BY CLEAN CATCH PROCEDURE / Unknown Non Blood Collection / Unknown 07/02/2024 9:25 AM EDT 07/02/2024 10:52 AM EDT Mere Houston MD URINE ORDERABLES [facility] [place] [address] documented in this encounter Visit Diagnoses Diagnosis Hematuria, unspecified type Lumbar back pain Lumbago documented in this encounter Care Teams Bridge Ironworker Relationship Specialty Start Date End Date Gema Oliveira DO [facility] [place] [address] PCP - General General Internal Medicine 05/17/23 documented as of this encounter
--- OUTSIDE RECORDS SUMMARY | 2024-07-12 00:25 | XMS_ITS | Encounter Summary ---
Author Organization [facility] Address [facility] [place] [address] Care Team Providers Care Client Resource Specialist Name Role Phone Gema Oliveira DO Primary Care Provider +1- [phone] Encounter Details Date Type Department Care Team (Late st Contact Info) Description 06/18/2024 Orders Only Internal Medicine at [facility] [address], [place] [id number] Gema Oliveira, DO [facility] [place] [address] Hyperlipidemia, unspecified hyperlipidemia type Social History Tobacco Use Types Packs/Day Years Used Date Smoking Tobacco: Former Cigarettes 0.5 30 0 05/12/1993 - 05/12/2023 Smokeless Tobacco: Never Comments:Quit 5 wks [...] place to sleep or slept in a intermediate (including now)? Patient refused 02/10/2023 IPV Inpatient [...] on file documented as of this encounter Plan of Treatment Upcoming Encounters Date Type Department Care Team (Late st Contact Info) Description 09/05/2024 9:00 AM EDT Office Visit Internal Medicine at [place] [id number] Gema Oliveira DO [facility] [place] [address] documented as of this encounter Visit Diagnoses Diagnosis Hyperlipidemia, unspecified hyperlipidemia type documented in this encounter Care Teams Client Resource Specialist Relationship Specialty Start Date End Date Gema Oliveira DO [facility] [place] [address] PCP - General General Internal Medicine 05/17/23 documented as of this encounter
--- OUTSIDE RECORDS SUMMARY | 2024-07-12 00:25 | XMS_ITS | Encounter Summary ---
Author Organization [facility] Address [facility] [place] [address] Care Team Providers Care Coach Driver Name Role Phone Gema Oliveira DO Primary Care Provider +1- [phone] Encounter Details Date Type Department Care Team (Latest Contact Info) Description 07/02/2024 Travel Social History Tobacco Use Types Packs/Day Years [...] mortgage or rent on time? No 02/11/20 [address] of Places Lived in the Last [...] AM EDT Office Visit Internal Medicine at [address] [address] Gema Oliveira DO [facility] [address] [place] [address] documented as of this encounter Visit Diagnoses Not on filedocumented in this encounter Care Teams Coach Driver Relationship Specialty Start Date End Date Gema Oliveira DO [facility] [place] [address] PCP - General General Internal Medicine 05/17/23 documented as of this encounter
--- OUTSIDE RECORDS SUMMARY | 2024-07-12 00:25 | XMS_ITS | Encounter Summary ---
[facility] Organization [facility] Address [facility] [place] [address] Care Team Providers Care Telecommunication Tower Technician Name Role Phone Gema Oliveira DO Primary Care Provider +1- [phone] Encounter Details Date Type Department Care Team (Latest Contact Info) Description 06/19/2024 10:17 AM EDT - 06/19/2024 11:59 PM EDT Hospital Encounter XRay at [address] [address] Bret Nicholson MD [facility] [address] Spondylolisthesis of lumbar region Discharge Disposition: Home Social History Tobacco Use Types Packs/Day Years [...] place to sleep or slept in a group home (including now)? Patient refused 02/10/2023 IPV [...] on file documented as of this encounter Medications at Time of Discharge Medication Sig Dispensed Refills Start Date End Date methocarbamoL (Robaxin) 750 mg tablet Take 1 tablet by mouth 3 times daily as needed for up to 30 days. 90 tablet 06/19/2024 07/19/2024 omeprazole (PriLOSEC) [address] capsuleIndications:Ga stroesophageal reflux disease without esophagitis Take 1 capsule by mouth daily. 90 capsule 3 06/18/2024 varenicline (Chantix) 0.5 mg tabletIndications:His tory of tobacco use Take 1 tablet by mouth daily for 3 days, THEN 1 tablet 2 times daily for 27 days. 40 tablet 2 06/18/2024 07/18/2024 metoprolol succinate XL (Toprol-XL) 50 mg ER 24 hr tabletIndications:Hyp ertension, essential, benign Take 1 tablet by mouth 2 times daily. 60 tablet 5 06/18/2024 atorvastatin (Lipitor) 40 mg tabletIndications:Hyp erlipidemia, unspecified hyperlipidemia type Take 1 tablet by mouth daily. 30 tablet 3 06/18/2024 ondansetron ODT (Zofran-ODT) 4 mg disintegrating tabletIndications:Darnell sea without vomiting DISSOLVE 1 TABLET ON THE TONGUE EVERY 8 HOURS NEEDED FOR NAUSEA 60 tablet 06/13/2024 HYDROcodone-acetamino phen ([place]) 7.5-325 mg tablet Take 1 tablet by mouth every 6 hours as needed for Pain. 40 tablet 06/12/2024 lisinopriL (Zestril) 40 mg tabletIndications:Ess ential hypertension Take 1 tablet by mouth daily. 90 tablet 3 06/04/2024 blood sugar diagnostic strips StripIndications:Type 2 diabetes mellitus without complication, unspecified whether epidemiology internship insulin use 1 strip by Other route 4 times daily. Use as instructed Prefers one touch Ultra, but make sure strips ordered match machine dispensed 400 each 3 05/08/2024 benzonatate (Tessalon) 100 mg capsuleIndications:CO PD with exacerbation Take 1 capsule by mouth 3 times daily as needed for Cough. 30 tablet 04/22/2024 albuteroL (Ventolin HFA) 90 mcg/actuation inhaler (HFA)Indications:Mild intermittent asthma without complication,Obstruct malcolm lung disease (generalized) INHALE TWO PUFFS INTO THE LUNGS EVERY 4 HOURS NEEDED FOR WHEEZING 18 g 3 04/18/2024 ipratropium-albuteroL (Duoneb) 0.5 mg-3 mg(2.5 mg base)/3 mL Solution for Nebulization INAHLE THE CONTENTS OR 1 VIAL BY NEBULIZATION EVERY 4 HOURS 180 mL 04/17/2024 metFORMIN (Glucophage) 1,000 mg tabletIndications:Typ e 2 diabetes mellitus without complication, without long-term current use of insulin Take 1 tablet by mouth daily. 90 tablet 3 02/14/2024 dulaglutide (Trulicity) 0.75 mg/0.5 mL Pen Injector Inject 0.75 mg subcutaneously once a week. acetaminophen (Tylenol) 325 mg tablet Take 2 tablets by mouth every 4 hours as needed for Pain. 30 tablet 1 12/16/2023 cyclobenzaprine (Flexeril) 10 mg tablet Take 1 tablet by mouth 3 times daily as needed for Muscle spasms. 30 tablet 12/16/2023 pramipexole (Mirapex) 0.125 mg tabletIndications:Res tless leg Take three tablets by mouth nightly 270 tablet 3 11/06/2023 hydroCHLOROthiazide (Hydrodiuril) 25 mg tabletIndications:Ess ential hypertension Take 1 tablet by mouth daily. 90 tablet 3 08/13/2023 Trintellix 20 mg tabletIndications:Mod erate episode of recurrent major depressive disorder TAKE ONE TABLET BY MOUTH EVERY DAY 90 tablet 3 05/16/2023 Blood-Glucose Meter MiscIndications:Type 2 diabetes mellitus without complication, unspecified whether epidemiology internship insulin use 1 kit by [facility].(Non-Drug; Combo Route) route 4 times daily. Prefers one touch Ultra, but make sure strips ordered match machine dispensed 1 each 12/27/2022 Advair Diskus 100-50 mcg/dose Disk with DeviceIndications:Mil d intermittent asthma without complication Inhale 1 puff into the lungs every 12 hours. Brand name 1 each 12 05/30/2022 diclofenac (Voltaren) 1 % Gel APPLY TOPICALLY TO THE AFFECTED AREA FOUR TIMES DAILY NEEDED 100 g 3 10/12/2021 Incontinence Pad, Liner, Disp Pad 1 each by [facility].(Non-Drug; Combo Route) route every 4 hours as needed (for incontinence). 200 each 11 10/03/2019 documented as of this encounter Plan of Treatment Upcoming Encounters Date Type Department Care Team (Late st Contact Info) Description 09/05/2024 9:00 AM EDT Office Visit Internal Medicine at [facility] [address] [place] [address] Gema Oliveira, [facility] GENER[facility] [place] [address] documented as of this encounter Procedures Procedure Name Priority Date/Time Associated Diagnosis Comments XR LUMBAR SPINE 2 OR 3 VIEWS Routine 06/19/2024 10:35 AM EDT Spondylolisthesis of lumbar region documented in this encounter Results * XR Lumbar Spine 2 Or 3 Views (Generic) (06/19/2024 10:35 AM EDT) WORKSTATION ID [id number] RAD Anatomical Region Laterality Modality L-spine N/A Digital Radiogra phy Impressions 06/19/2024 2:06 PM EDT 1. ??Status post L4-L5 fusion with unchanged alignment. 2. ??Multilevel degenerative changes as described, most significant at L5-S1. I have personally reviewed the image(s) and the resident's interpretation and agree with the findings, Tammi Sunshine MD at 06/19/2024 2:06 PM Thank you for letting us participate in the care of this patient. ??If you are a health care provider and have any questions regarding this report, please contact the number below. ??For patients who have questions please contact the health sub acute care nurse that requested your imaging first. ? Narrative 06/19/2024 2:06 PM EDT EXAMINATION: XR LUMBAR SPINE 2 OR 3 VIEWS (GENERIC) CLINICAL HISTORY: spine fusion, return of symptoms M43.16, Spondylolisthesis, lumbar region TECHNIQUE: 2 views of the lumbar spine COMPARISON: MRI dated 06/18/2024. Lumbar radiographs 03/13/2024 and 01/17/2024. FINDINGS: There are 5 nonrib-bearing lumbar-type vertebrae. Normal lumbar lordosis. Status post posterior fusion at L4-L5 with intervertebral disc spacer, transpedicular screws and rods. Hardware is intact and unchanged in position. No adjacent hardware lucency. No adjacent hardware fracture. No spondylolisthesis. Vertebral body heights are preserved. Stable multilevel disc height loss most pronounced at L5-S1. Stable multilevel facet arthropathy and subchondral sclerosis at multiple superior and inferior endplates. Vascular calcifications are present. Procedure Note Tammi Sunshine MD - 06/19/2024 EXAMINATION: XR LUMBAR SPINE 2 OR 3 VIEWS (GENERIC) CLINICAL HISTORY: spine fusion, return of symptoms M43.16, Spondylolisthesis, lumbar region TECHNIQUE: 2 views of the lumbar spine COMPARISON: MRI dated 06/18/2024. Lumbar radiographs 03/13/2024 and 01/17/2024. FINDINGS: There are 5 nonrib-bearing lumbar-type vertebrae. Normal lumbar lordosis. Status post posterior fusion at L4-L5 with intervertebral disc spacer, transpedicular screws and rods. Hardware is intact and unchanged inposition. No adjacent hardware lucency. No adjacent hardware fracture. No spondylolisthesis. Vertebral body heights are preserved. Stable multilevel disc height lossmost pronounced at L5-S1. Stable multilevel facet arthropathy and subchondral sclerosis atmultiple superior and inferior endplates. Vascular calcifications are present. IMPRESSION 1. Status post L4-L5 fusion with unchanged alignment. 2. Multilevel degenerative changes as described, most significant atL5-S1. I have personally reviewed the image(s) and the resident's interpretationand agree with the findings, Tammi Sunshine MD at 06/19/2024 2:06 PM Thank you for letting us participate in the care of this patient. If youare a health care provider and have any questions regarding this report,please contact the number below. For patients who have questions please contactthe health sub acute care nurse that requested your imaging first. Bret Nicholson MD IMG DX ORDERABLES documented in this encounter Visit Diagnoses Diagnosis Spondylolisthesis of lumbar region Acquired spondylolisthesis documented in this encounter Care Teams Telecommunication Tower Technician Relationship Specialty Start Date End Date Gema Oliveira DO [facility] [place] [address] PCP - General General Internal Medicine 05/17/23 documented as of this encounter
--- OUTSIDE RECORDS SUMMARY | 2024-07-12 00:25 | XMS_ITS | Encounter Summary ---
Author Organization [facility] Address [facility] [address] Care Team Providers Care Staff Accountant Name Role Phone Gema Oliveira DO Primary Care Provider +1- [phone] Encounter Details Date Type Department Care Team (Latest Contact Info) Description 06/18/2024 Travel Social History Tobacco Use Types Packs/Day [...] AM EDT Office Visit Internal Medicine at [address] [address] Gema Oliveira DO [facility] [address] [address] documented as of this encounter Visit Diagnoses Not on filedocumented in this encounter Care Teams Staff Accountant Relationship Specialty Start Date End Date Gema Oliveira DO [facility] [place] [address] PCP - General General Internal Medicine 05/17/23 documented as of this encounter
--- OUTSIDE RECORDS SUMMARY | 2024-07-12 00:25 | XMS_ITS | Encounter Summary ---
[place] [address] Care Team Providers Care Poultry Service Technician Name Role Phone Gema Oliveira DO Primary Care Provider +1- [phone] Encounter Details Date Type Department Care Team (Latest Contact Info) Description 07/02/2024 11:55 AM EDT Laboratory Appointment Lab [address] [place] [id number] Hematuria, unspecified type Social History Tobacco Use Types Packs/Day [...] place to sleep or slept in a halfway (including now)? Patient refused 02/10/2023 IPV Inpatient [...] AM EDT Office Visit Internal Medicine at [place] [id number] Gema Oliveira, [facility] [place] [address] documented as of this encounter Procedures Procedure Name Priority Date/Time Associated Diagnosis Comments BASIC METABOLIC PANEL STAT 07/02/2024 11:01 AM EDT Hematuria, unspecified type documented in this encounter Results * Basic Metabolic Panel (07/02/2024 11:01 AM EDT) Glucose 108 65 - 199 mg/dL 07/02/2024 11:[address] [facility] Comment:Glucose Concentratio n >=200 mg/dL plus symptoms is consistent with Diabetes Mellitus. Blood Urea Nitrogen 12 8 - 18 mg/dL 07/02/2024 11:[address] [facility] Creatinine 1.06 0.70 - 1.20 mg/dL 07/02/2024 11:[address] [facility] Sodium 142 135 - 145 mMol/L 07/02/2024 11:[address] [facility] Potassium 4.3 3.5 - 5.0 mMol/L 07/02/2024 11:[address] [facility] Chloride 102 98 - 107 mMol/L 07/02/2024 11:[address] [facility] Carbon Dioxide 27 22 - 31 mMol/L 07/02/2024 11:[address] [facility] Anion Gap 13 5 - 15 mMol/L 07/02/2024 11:[address] [facility] Calcium 10.1 8.5 - 10.5 mg/dL 07/02/2024 11:[address] [facility] Est Glomerular Filtration Rate - Female 63 mL/min/1. 73 m?? 07/02/2024 11:[address] [facility] Comment: This patient's estimated GFR [...] Foundation Fasting Status No 07/02/2024 11:[address] [facility] Blood VENOUS BLOOD SPECIMEN / Unknown Venipuncture / Unknown 07/02/2024 11:01 AM EDT 07/02/2024 11:01 AM EDT Mere Houston MD CHEMISTRY ORDERABLE S [facility] [address] [address] documented in this encounter Visit Diagnoses Diagnosis Hematuria, unspecified type documented in this encounter Care Teams Poultry Service Technician Relationship Specialty Start Date End Date Gema Oliveira DO [facility] [place] [address] PCP - General General Internal Medicine 05/17/23 documented as of this encounter
--- OUTSIDE RECORDS SUMMARY | 2024-07-12 00:25 | XMS_ITS | Encounter Summary ---
Author Organization [facility] [place] [address] Care Team Providers Care Telephone Operator Chief Name Role Phone Gema Oliveira DO Primary Care Provider +1- [phone] Reason for Visit * Reason Onset Date Comments Prior Authorization 06/19/2024 Encounter Details Date Type Department Care Team (Late st Contact Info) Description 06/19/2024 [place] [phone] Karlene Thornton CCMA Prior Authorization Social History Tobacco Use Types Packs/Day Years [...] place to sleep or slept in a detention (including now)? Patient refused 02/10/2023 IPV Inpatient [...] encounter Miscellaneous Notes * Telephone Encounter - Karlene Thornton CCMA - 06/19/2024 12:47 PM EDT Images from the original note were not included. Accessed patient record due to the following: Not a department we service documented in this encounter Plan of Treatment Upcoming Encounters Date Type Department Care Team (Late st Contact Info) Description 09/05/2024 9:00 AM EDT Office Visit Internal Medicine at [place] [id number] Gema Oliveira, [facility] [place] [address] documented as of this encounter Visit Diagnoses Not on filedocumented in this encounter Care Teams Telephone Operator Chief Relationship Specialty Start Date End Date Gema Oliveira DO [facility] [place] [address] PCP - General General Internal Medicine 05/17/23 documented as of this encounter
--- OUTSIDE RECORDS SUMMARY | 2024-07-12 00:25 | XMS_ITS | Encounter Summary ---
Author Organization [facility] Address [facility] [place] [address] Care Team Providers Care Float Builder Name Role Phone Gema Oliveira DO Primary Care Provider +1- [phone] Encounter Details Date Type Department Care Team (Latest Contact Info) Description 06/19/2024 10:14 AM EDT - 06/19/2024 10:16 AM EDT Hospital Encounter XRay at [address] [address] [facility] [place] [address] Spinal instability of lumbosacral region Discharge Disposition: Home Social History Tobacco [...] place to sleep or slept in a [facility] (including now)? Patient refused 02/10/2023 IPV Inpatient [...] Sig Dispensed Refills Start Date End Date omeprazole (PriLOSEC) [address] capsuleIndications:Ga stroesophageal [...] FOR NAUSEA 60 tablet 06/13/2024 HYDROcodone-acetamino phen ([place]) 7.5-325 mg tablet Take 1 tablet by mouth every 6 hours as needed for Pain. 40 tablet 06/12/2024 lisinopriL (Zestril) 40 mg tabletIndications:Ess ential hypertension Take 1 tablet by mouth daily. 90 tablet 3 06/04/2024 blood sugar diagnostic strips StripIndications:Type 2 diabetes mellitus without complication, unspecified whether custodial insulin use 1 strip by Other route [...] 2 diabetes mellitus without complication, unspecified whether terminal computer operator insulin use 1 kit by [facility].(Non-Drug; Combo Route) route 4 times daily. Prefers [...] Pad, Liner, Disp Pad 1 each by [facility].(Non-Drug; Combo Route) route every 4 hours as needed (for incontinence). 200 each 11 10/03/2019 documented as of this encounter Plan of Treatment Upcoming Encounters Date Type Department Care Team (Late st Contact Info) Description 09/05/2024 9:00 AM EDT Office Visit Internal Medicine at [address] [id number] Gema Oliveira, [facility] [place] [address] documented as of this encounter Procedures Procedure Name Priority Date/Time Associated Diagnosis Comments XR LUMBAR SPINE AP FLEXION AND EXTENSION ONLY Routine 06/19/2024 10:35 AM EDT Spinal instability of lumbosacral region documented in this encounter Results * XR Lumbar Spine AP Flexion and Extension Only (06/19/2024 10:35 AM EDT) Granicus Signature WORKSTATION ID [id number] [facility] Anatomical Region Laterality Modality L-spine N/A Digital Radiogra phy Impressions 06/20/2024 7:36 AM EDT No evidence of instability. Thank you for letting us participate in the care of this patient. ??If you are a health care provider and have any questions regarding this report, please contact the number below. ??For patients who have questions please contact the health critical care registered nurse that requested your imaging first. ? [...] have questions please contactthe health critical care registered nurse that requested your imaging first. Bret Nicholson MD IMG DX ORDERABLES documented in this encounter Visit Diagnoses Diagnosis Spinal instability of lumbosacral region documented in this encounter Care Teams Float Builder Relationship Specialty Start Date End Date Gema Oliveira DO [facility] [place] [address] PCP - General General Internal Medicine 05/17/23 documented as of this encounter
--- OUTSIDE RECORDS SUMMARY | 2024-07-12 00:25 | XMS_ITS | Clinical Summary ---
Author Organization [facility] Address [facility] [place] [address] Care Team Providers Care Engineer Intern Name Role Phone Gema Oliveira DO Primary Care Provider [phone]- [phone] Allergies Active Allergy Reactions Criticality Noted Date Comments Adhesive Tape Rash 01/08/2024 Naproxen Sodium Rash 09/29/2014 Per neuro team, patient has tolerated ketorolac in the past Amlodipine Nausea And Vomiting Low 10/03/2019 Sulfamethoxazole-Trime thoprim Anaphylaxis High 06/21/2013 Cephalexin Other (See Comments) 06/21/2013 Racing heart Meloxicam Nausea Only 06/21/2013 Trimethoprim Anaphylaxis High 07/11/2021 Medications Medication Sig Dispensed Refills Start Date End Date Status Incontinence Pad, Liner, Disp Pad 1 each by [facility].(Non-Drug; Combo Route) route every 4 hours as needed (for incontinence). 200 each 10/03/2019 Active diclofenac (Voltaren) 1 % Gel APPLY TOPICALLY TO THE AFFECTED AREA FOUR TIMES DAILY NEEDED 100 g 3 10/12/2021 Active Advair Diskus 100-50 mcg/dose Disk with DeviceIndications:M ild intermittent asthma without complication Inhale 1 puff into the lungs every 12 hours. Brand name 1 each 05/30/2022 Active Blood-Glucose Meter MiscIndications:Typ e 2 diabetes mellitus without complication, unspecified whether prison insulin use 1 kit by [facility].(Non-Drug; Combo Route) route 4 times daily. Prefers one touch Ultra, but make sure strips ordered match machine dispensed 1 each 12/27/2022 Active Trintellix 20 mg tabletIndications:M oderate episode of recurrent major depressive disorder TAKE ONE TABLET BY MOUTH EVERY DAY 90 tablet 3 05/16/2023 Active Additional Information Patient taking differently: 20 mg Mouth/Throat EVERY MORNING, Informant: Self, Reported on 06/18/2024 hydroCHLOROthiazide (Hydrodiuril) 25 mg tabletIndications:E ssential hypertension Take 1 tablet by mouth daily. 90 tablet 3 08/13/2023 Active Additional Information Patient taking differently:25 mg OralEVERY MORNING, Informant: Self, Reported on 12/06/2023 pramipexole (Mirapex) 0.125 mg tabletIndications:R estless leg Take three tablets by mouth nightly 270 tablet 3 11/06/2023 Active acetaminophen (Tylenol) 325 mg tablet Take 2 tablets by mouth every 4 hours as needed for Pain. 30 tablet 1 12/16/2023 Active cyclobenzaprine (Flexeril) 10 mg tablet Take 1 tablet by mouth 3 times daily as needed for Muscle spasms. 30 tablet 12/16/2023 Active dulaglutide (Trulicity) 0.75 mg/0.5 mL Pen Injector Inject 0.75 mg subcutaneously once a week. Active metFORMIN (Glucophage) 1,000 mg tabletIndications:T ype 2 diabetes mellitus without complication, without long-term current use of insulin Take 1 tablet by mouth daily. 90 tablet 3 02/14/2024 Active albuteroL (Ventolin HFA) 90 mcg/actuation inhaler (HFA)Indications:Mi ld intermittent asthma without complication,Obstru ctive lung disease (generalized) INHALE TWO PUFFS INTO THE LUNGS EVERY 4 HOURS NEEDED FOR WHEEZING 18 g 3 04/18/2024 Active ipratropium-albuter oL (Duoneb) 0.5 mg-3 mg(2.5 mg base)/3 mL Solution for Nebulization INAHLE THE CONTENTS OR 1 VIAL BY NEBULIZATION EVERY 4 HOURS 180 mL 04/17/2024 Active benzonatate (Tessalon) 100 mg capsuleIndications: COPD with exacerbation Take 1 capsule by mouth 3 times daily as needed for Cough. 30 tablet 04/22/2024 Active blood sugar diagnostic strips StripIndications:Ty pe 2 diabetes mellitus without complication, unspecified whether prison insulin use 1 strip by Other route 4 times daily. Use as instructed Prefers one touch Ultra, but make sure strips ordered match machine dispensed 400 each 3 05/08/2024 Active lisinopriL (Zestril) 40 mg tabletIndications:E ssential hypertension Take 1 tablet by mouth daily. 90 tablet 3 06/04/2024 Active ondansetron ODT (Zofran-ODT) 4 mg disintegrating tabletIndications:N ausea without vomiting DISSOLVE 1 TABLET ON THE TONGUE EVERY 8 HOURS NEEDED FOR NAUSEA 60 tablet 06/13/2024 Active HYDROcodone-acetami nophen ([place]) 7.5-325 mg tablet Take 1 tablet by mouth every 6 hours as needed for Pain. 40 tablet 06/12/2024 Active omeprazole (PriLOSEC) [address] capsuleIndications: Gastroesophageal reflux disease without esophagitis Take 1 capsule by mouth daily. 90 capsule 3 06/18/2024 Active varenicline (Chantix) 0.5 mg tabletIndications:H istory of tobacco use Take 1 tablet by mouth daily for 3 days, THEN 1 tablet 2 times daily for 27 days. 40 tablet 2 06/18/2024 Active metoprolol succinate XL (Toprol-XL) 50 mg ER 24 hr tabletIndications:H ypertension, essential, benign Take 1 tablet by mouth 2 times daily. 60 tablet 5 06/18/2024 Active atorvastatin (Lipitor) 40 mg tabletIndications:H yperlipidemia, unspecified hyperlipidemia type Take 1 tablet by mouth daily. 30 tablet 3 06/18/2024 Active methocarbamoL (Robaxin) 750 mg tablet Take 1 tablet by mouth 3 times daily as needed for up to 30 days. 90 tablet 06/19/2024 4 Active pregabalin (Lyrica) 25 mg capsuleIndications: Lumbar back pain Take 1 capsule by mouth 2 times daily. 60 capsule 07/02/2024 Active Active Problems Problem Noted Date Diagnosed Date Spondylolisthesis at L4-L5 level 12/15/2023 Hyperlipidemia 10/26/2023 Class 3 severe obesity in adult 01/06/2022 Pelvic pain 10/28/2021 S/P laparoscopic assisted vaginal hysterectomy ( LAVH) 10/28/2021 Anxiety 09/17/2020 Pulmonary nodules 12/22/2019 Overview (12/22/2019): [address] 12/20/2019, consider repeat CT in 1 year 1. 5 mm oval nodular density LEFT upper lobe 2. indeterminate subpleural 5 mm nodule is seen in the LEFT lower lobe 3. 5 mm peripherally located RIGHT lower lobe pulmonary nodule Type 2 diabetes mellitus wit hout complication, without long-term current use of insulin 09/25/2018 Overview (09/25/2018): HbA1c 5.9% started metformin 09/2018 Obstructive lung disease (generalized) 8 Overview (09/25/2018): PFTs 02/2016: FEV1 is reduced. The FEV1/FVC ratio is reduced. ?? Impression: [x] Mild obstructive ventilatory defect (FEV1 >70% predicted) [x] Reduced FVC suggests possible restriction. Can be confirmed by lung volumes. Hypertension, essential, benign 08/30/2018 Overview (09/25/2018): Started lisinopril 2017 Osteoarthritis of spine with radiculopathy, lumb ar region 07/10/2017 Erosion of vaginal mesh 06/06/2017 Mixed stress and urge urinary incontinence 03/28 Adult BMI 40.0-44.9 kg/sq m 02/23/2016 Depression 08/10/2015 Overview (09/25/2018): hx suicide attempt Past meds: Prozac, Lexapro, Effexor, Clonazepam, [place]. None worked. Has chronic up and down daily. Currently on Wellbutrin for assistance with smoking cessation. Considering online counseling. Esophageal reflux (GERD) 10/29/2014 Overview (11/28/2019): On PPI. EGD 06/2017 showed minor inflammation without evidence of Garza's. Assessment & Plan (02/18/2015 11:53 AM EDT): Heartburn 1-2 a week, takes tums, made dietary changes which have helped Smoking 10/29/2014 Assessment & Plan (02/18/2015 11:54 AM EDT): Has reduced to current 4 cig/day PTSD (post-traumatic stress disorder) 10/29/2014 Overview (02/18/2015): nightmares Agoraphobia 10/29/2014 ADD (attention deficit disorder) (ADHD) 10/29/20 14 Vitamin D deficiency 10/29/2014 H/O suicide attempt 10/29/2014 Overview (09/25/2018): Overdose in 1999 Post-traumatic headache 09/29/2014 Bilateral occipital neuralgia 07/14/2014 History of cervical cancer 11/20/2001 Overview (09/25/2018): s/p LEEP??? in [place] Resolved Problems Problem Noted Date Diagnosed Date Resolved Date Postoperative examination 06/13/2016 H/O suicide attempt 10/29/2014 02/19/20 15 Overview (10/29/2014): Overdose in 1999 Cervical cancer 10/29/2014 02/18/2015 Overview (02/18/2015): Per pt in 2001, in [place], negative paps since? Incontinence of urine 10/29/20142017 Assessment & Plan (02/18/2015 12:04 PM EDT): Stress incontinence BV (bacterial vaginosis) 10/29/201411/2014 Overview (10/29/2014): recurrent S/P tubal ligation 10/29/2014 5 Restless legs syndrome (RLS) 09/25/2018 GERD (gastroesophageal reflux disease) 09/25/2018 Encounters Date Type Department Care Team Description 07/02/2024 11:55 AM EDT Laboratory Appointment Lab [address] [place] [id number] Hematuria, unspecified type 07/02/2024 9:30 AM EDT Office Visit [place] [address] Sherin Espinoza MD Hematuria, unspecified type; Lumbar back pain 07/02/2024 Travel 06/30/2024 Nurse Triage Internal Medicine at [address] [address] Gema Oliveira DO Dysuria 06/19/2024 10:17 AM EDT - 06/19/2024 11:59 PM EDT Hospital Encounter XRay at [address] [address] Bret Nicholson MD Spondylolisthesis of lumbar region Discharge Disposition: Home 06/19/2024 10:14 AM EDT - 06/19/2024 10:16 AM EDT Hospital Encounter XRay at [address] [address] Bret Nicholson MD Spinal instability of lumbosacral region Discharge Disposition: Home 06/19/2024 9:40 AM EDT Office Visit Neurosurgery at [address] [address] Bret Nicholson MD Spinal instability of lumbosacral region; Lumbar back pain 06/19/2024 [place] [phone] Karlene Thornton [facility] Prior Authorization 06/18/2024 9:00 AM EDT Office Visit Internal Medicine at [address] [address] Gema Oliveira DO Type 2 diabetes mellitus without complication, without long-term current use of insulin; Hyperlipidemia, unspecified hyperlipidemia type; History of tobacco use; Hypertension, essential, benign; Breast cancer screening by mammogram; Pulmonary nodule; Moderate episode of recurrent major depressive disorder 06/18/2024 7:16 AM EDT - 06/18/2024 11:59 PM EDT Hospital Encounter MRI at [address] [address] Bret Nicholson MD Spondylolisthesis of lumbar region Discharge Disposition: Home 06/18/2024 Travel 06/18/2024 Orders Only Internal Medicine at [facility] [address] [place] [address] Gema Oliveira, DO Hyperlipidemia, unspecified hyperlipidemia type 06/17/2024 Travel 06/16/2024 Refill Internal Medicine at [facility] [address] [place] [address] Gema Oliveira, Gastroesophageal reflux disease without esophagitis 06/12/2024 Orders [place] [address] Bret Nicholson MD 06/10/2024 Refill Internal Medicine at [address] [address] Gema Oliveira, DO Nausea without vomiting 06/07/2024 Orders [place] [address] Bret Nicholson MD Spondylolisthesis of lumbar region 06/06/2024 Telephone [place] [address] Cherie Finnegan, RN Appointment 06/03/2024 Refill Internal Medicine at [address] [address] Gema Oliveira, DO Essential hypertension 06/03/2024 Telephone [place] [address] Hellen Garzon, RN 05/08/2024 Refill Internal Medicine at [address] [address] Gema Oliveira, Type 2 diabetes mellitus without complication, unspecified whether prison insulin use 05/01/2024 Refill Internal Medicine at [address] [address] Gema Oliveira, DO Nicotine dependence, cigarettes, uncomplicated 05/01/2024 Orders Only Internal Medicine at [facility] [address] [place] [address] Zina Siddiqi CCMA Nicotine dependence, cigarettes, uncomplicated 04/22/2024 1:20 PM EDT Office Visit Internal Medicine at [address] [phone] Martínez Cason MD COPD with exacerbation 04/22/2024 Travel 04/22/2024 Nurse Triage [place] [phone] Monet Gutierrez RN Shortness of Breath 04/17/2024 Ref[place] [address] Eufemia Ballard PA 04/17/2024 Refill Internal Medicine at [address] [id number] Gema Oliveira, DO Nausea without vomiting 04/16/2024 Refill Internal Medicine at [address] [id number] Gema Oliveira, DO Nausea without vomiting from Last 3 Months Immunizations Name Administration Dates Next Due Covid-19 (KIWATCH), Purple Ca p Monovalent Vaccine (12yrs+) 05/07/2021,04/12/2021 Influenza PF, Split 11/17/2016, 5,08/11/2014,09/23 Influenza Quadrivalent, Pres ervative Free 07/31/2023,09/17/2020,10/03/2019,08/22,09/19/2017 Influenza Vaccine, Whole 08/20/2014 Pneumococcal Conjugate (Prevnar 20) 08/26/2022 Pneumococcal Polysaccharide (Pneumovax 23) 09/01/2010 TD Adult 09/21/2004 Td Adult, Absorbed, Preservative Free 10/25/2023 Tdap 07/30/2013 Family History Medical History Relation Comments Coronary Artery Disease Early Onset Brother 1 smoker No Known Problems Father Breast Cancer Maternal Aunt Brain Tumor Mother metastatic from lung Lung Cancer Mother Colorectal Cancer Neg Hx Endometrial Cancer Neg Hx Ovarian Cancer Neg Hx Pancreatic Cancer Neg Hx Relation Status Comments Brother 1 Alive Brother 2 Alive Father Maternal Aunt Maternal Grandfather Maternal Grandmother Mother Paternal Grandfather Paternal Grandmother Sister 1 Alive Sister 2 Alive Sister 3 Alive Sister 4 Alive Social History Tobacco Use Types Packs/Day Years [...] on file Sexual Orientation Not on file Last Filed Vital Signs Vital Sign Reading [...] Mass Index 39.84 06/19/2024 9:37 AM EDT Plan of Treatment Upcoming Encounters Date Type Department Care Team (Late st Contact Info) Description 09/05/2024 9:00 AM EDT Office [place] [address] [facility] [place] [address] Health Maintenance Due Date Last Done Comments CT Colonography 1971 FIT DNA 1971 FIT 1971 Sigmoidoscopy 1971 DM Opthalmology Exam 1981 Hepatitis B vaccine (0-59 yrs) (1) 1990 Breast Cancer screening 2011 Zoster vaccine (1 of 2) 2021 HPV test 09/25/2023 09/25/2018, 07/22 (Outside per patient (enter details in comments)) PAP Smear 09/25/2023 09/25/2018, 07/22 (Outside per patient (enter details in comments)) Influenza (Flu) vaccine (1 of 1 - Influenza standard series) 07/21/2024 07/31/2023, 09/17/2020, 10/03/2019, Additional history exists Covid-19 Vaccine ( - season) 2024 05/07/2021, 04/12/2021 Postponed from 07/21/2023 (Patient Declined) DM Urine Microalbumin yearly 10/25/2024 10/25/2023, 08/26/2022 DM Hemoglobin A1c 6 month 12/19/20242023, 10/25/2023, 08/14/2023, Additional history exists Colonoscopy 06/11/2025 06/11/2015, 06/11/2015 Colorectal Cancer Screening 06/11/2025 Sigmoidoscopy (10 year) with FIT yearly 06/11/2025 06/11/2015, 06/11/2015 DM Creatinine yearly 07/02/2025 07/02/2024, 10/05/2023, 12/07/2022, Additional history exists Tetanus vaccine 10/25/2033 10/25/2023, 07/21, 07/30/2013 (Outside per patient (enter details in comments)), Additional history exists Tdap adult Completed 07/30/2013, 07/21 (Outside per patient (enter details in comments)) HIV screen Completed 08/15/2017 Hepatitis C Screening Completed 08/20/2021 Pneumococcal Vaccine: At-Risk 5-64yrs Completed 08/26/2022, 09/01/2010 Lipid Screening Discontinued 10/25/2023, 01/2018, 02/18/2015 Medical Devices Implanted Type Area Furnace Charger Device Identifier Shelf Expiration Date Model / Serial / Lot Gigi Christian Urn y,Incont ([id number]) - [id number] Implanted:Qty: 1 on 06/08/2016 by Frankie Richards MD at [facility] IMPLANTS N/A: Pelvis [employer] - [id number] 02/24/2019 [id number] / / [id number] Graft Bone Filler 9cc Dbf Injectable [place] ([id number]) (Autoreq) - [id number] Implanted:Qty: 1 on 12/15/2023 by Bret Nicholson MD at [facility] IMPLANTS N/A: Spine Lumbar [employer] - [employer] 05/28/2025 [id number] / / [id number] Cage Spinal 9mm Expandable Short Plif Ti ([id number]) ([employer]oreq) - [id number] Implanted:Qty: 1 on 12/15/2023 by Bret Nicholson MD at [facility] IMPLANTS N/A: Spine Lumbar [employer] [id number] 10/02/2030 [id number] / / [id number] Screw Spinal 6.5x50mm Pedicle Sld ([id number]) ([employer]oreq) - [id number] Implanted:Qty: 3 on 12/15/2023 by Bret Nicholson MD at [facility] IMPLANTS N/A: Spine Lumbar [employer] [id number] / / Screw Spinal 5.5x45mm Pedicle Sld ([id number]) (Autoreq) - [id number] Implanted:Qty: 1 on 12/15/2023 by Bret Nicholson MD at [facility] IMPLANTS N/A: Spine Lumbar [employer] [id number] / / Screw Spinal Set Pedicle 5.5/6.0mm Sld Break Off ([id number]) ([employer]oreq) - [id number] Implanted:Qty: 4 on 12/15/2023 by Bret Nicholson MD at [facility] IMPLANTS N/A: Spine Lumbar [employer] [id number] / / Sumit Spinal 5.5x50mm Lumbar Percutaneous Cocr ([id number]) ([employer]oreq) - [id number] Implanted:Qty: 2 on 12/15/2023 by Bret Nicholson MD at [facility] IMPLANTS N/A: Spine Lumbar [employer] [id number] / / Procedures Procedure Name Priority Date/Time Associated Diagnosis Comments BASIC METABOLIC PANEL STAT 07/02/2024 11:01 AM EDT Hematuria, unspecified type URINALYSIS WITH REFLEX CULTURE Routine 07/02/2024 9:25 AM EDT Hematuria, unspecified type XR LUMBAR SPINE AP FLEXION AND EXTENSION ONLY Routine 06/19/2024 10:35 AM EDT Spinal instability of lumbosacral region XR LUMBAR SPINE 2 OR 3 VIEWS Routine 06/19/2024 10:35 AM EDT Spondylolisthesis of lumbar region HEPATIC FUNCTION PANEL Routine 06/18/2024 9:54 AM EDT Hyperlipidemia, unspecified hyperlipidemia type POCT GLYCATED HEMOGLOBIN, TOTAL (HA1C) Routine 06/18/2024 9:03 AM EDT Type 2 diabetes mellitus without complication, without long-term current use of insulin MRI LUMBAR SPINE WITHOUT CONTRAST Routine 06/18/2024 8:20 AM EDT Spondylolisthesis of lumbar region LIPID PANEL (REFLEX DIRECT LDL) Routine 10/25/2023 2:49 PM EST Type 2 diabetes mellitus without complication, unspecified whether medical terminologist insulin use U ALBUMIN/CRE RATIO Routine 10/25/2023 2 :49 PM EST Type 2 diabetes mellitus without complication, without long-term current use of insulin HC VENIPUNCTURE Routine 08/20/2021 11:25 AM EDT Encounter for hepatitis C screening test for low risk patient HPV Routine 09/25/2018 2:08 PM EST ORNAMENTER HAND CYTOLOGY FINAL REPORT Routine 09/25/2018 2:08 PM EST HIV SCREEN, 4TH GENERATION ([facility]/CGP/APD/NLH) Routine 08/15/2017 10:17 AM EDT Screening for HIV (human immunodeficiency virus) COLONOSCOPY Routine 06/11/2015 1:33 PM EDT from Last 3 Months or Most Recently Relevant to Health Maintenance Results * Basic Metabolic Panel (07/02/2024 11:01 AM EDT) Glucose 108 65 - 199 mg/dL 07/02/2024 11:51 AM [facility] Comment:Glucose Concentratio n >=200 mg/dL plus symptoms is consistent with Diabetes Mellitus. Blood Urea Nitrogen 12 8 - 18 mg/dL 07/02/2024 11:51 AM [facility] Creatinine 1.06 0.70 - 1.20 mg/dL 07/02/2024 11:51 AM [facility] Sodium 142 135 - 145 mMol/L 07/02/2024 11:51 AM [facility] Potassium 4.3 3.5 - 5.0 mMol/L 07/02/2024 11:51 AM [facility] Chloride 102 98 - 107 mMol/L 07/02/2024 11:51 AM [facility] Carbon Dioxide 27 22 - 31 mMol/L 07/02/2024 11:51 AM [facility] Anion Gap 13 5 - 15 mMol/L 07/02/2024 11:51 AM [facility] Calcium 10.1 8.5 - 10.5 mg/dL 07/02/2024 11:51 AM [facility] Est Glomerular Filtration Rate - Female 63 mL/min/1. 73 m?? 07/02/2024 11:51 AM [facility] Comment: This patient's estimated GFR was [...] Foundation Fasting Status No 07/02/2024 11:51 AM [facility] Blood VENOUS BLOOD SPECIMEN / Unknown Venipuncture / Unknown 07/02/2024 11:01 AM EDT 07/02/2024 11:01 AM EDT Mere Houston MD CHEMISTRY ORDERABLE S [facility] [place] [address] * (ABNORMAL) Urinalysis with reflex Culture (07/02/2024 9:25 AM EDT) Glucose, Urine Dipstick Negative Negative 07/02/2024 10:59 AM EDT [facility] Protein, Urine Dipstick Negative Negative 07/02/2024 10:59 AM EDT [facility] Bilirubin, Urine Dipstick Negative Negative 07/02/2024 10:59 AM EDT [facility] Comment:Clinical correlation required for positive Urine Bilirubin results as false positive may occur with some drugs and drug related products. If a false positive is suspected a serum total bilirubin should be considered if clinically indicated. Urobilinogen, Urine Dipstick Normal Normal, 0.2 mg/dL, 1.0 mg/dL 07/02/2024 10:59 AM EDT [facility] pH, Urine (dipstick) 5.5 5.0 - 8.0 07/02/2024 10:59 AM EDT [facility] Blood, Urine Dipstick Negative Negative 07/02/2024 10:59 AM EDT [facility] Ketone, Urine Dipstick Trace(A) Negative 07/02/2024 10:59 AM EDT [facility] Nitrite, Urine Dipstick Negative Negative 07/02/2024 10:59 AM EDT [facility] Leukocytes, Urine Dipstick Negative Negative 07/02/2024 10:59 AM [facility] Specific Noti Urine Automated 1.025 1.005 - 1.030 [facility] Appearance, Urine Dipstick Clear Clear 07/02/2024 10:59 AM EDT [facility] Color, Urine Dipstick Yellow Yellow, Dark Yellow 07/02/2024 10:59 AM EDT [facility] Urine URINE SPECIMEN OBTAINED BY CLEAN CATCH PROCEDURE / Unknown Non Blood Collection / Unknown 07/02/2024 9:25 AM EDT 07/02/2024 10:52 AM EDT Mere Houston MD URINE ORDERABLES [facility] [place] [address] * XR Lumbar Spine AP Flexion and [...] who have questions please contact the health managed care director that requested your imaging first. ? Narrative [...] patients who have questions please contactthe health managed care director that requested your imaging first. Electronically signed by: Alex Machado MD, [facility]([phone]), at 06/20/2024 7:36 AM Bret Nicholson MD IMG DX ORDERABLES * XR Lumbar Spine 2 Or 3 Views (Generic) (06/19/2024 10:35 AM EDT) WORKSTATION ID [id number] RAD Anatomical Region Laterality Modality L-spine N/A [...] who have questions please contact the health managed care director that requested your imaging first. ? Electronically signed by: Tammi Sunshine MD, [facility] ([phone]), at 06/19/2024 2:06 PM Narrative 06/19/2024 2:06 PM EDT EXAMINATION: XR [...] patients who have questions please contactthe health managed care director that requested your imaging first. Electronically signed by: Tammi Sunshine MD, [facility]([phone]), at 06/19/2024 2:06 PM Bret Nicholson MD IMG DX ORDERABLES * Hepatic Function Panel (06/18/2024 9:54 AM EDT) [facility] Protein, Total 7.2 6.1 - 8.0 g/dL [facility] Albumin 4.5 3.2 - 5.2 g/dL [facility] Aspartate Aminotransferase 20 0 - 30 unit/L [facility] Alanine Aminotransferase 23 0 - 30 unit/L [facility] Alkaline Phosphatase 55 35 - 105 unit/L [facility] Bilirubin, Total 0.3 0.2 - 1.3 mg/dL [facility] Bilirubin, Direct 0.1 0.0 - 0.3 mg/dL [facility] Blood 06/18/2024 9:54 AM EDT 06/18/2024 11:30 AM EDT Narrative Resulting Agency Comment Spec In Lab Bharat Dumont MD CHEMISTRY ORDERABLE S [facility] [place] [address] * (ABNORMAL) POCT glycated hemoglobin, total (HA1C) (06/18/2024 9:03 AM EDT) [facility] Hemoglobin A1C, POC 6.2(A) 4.3 - 5.6 % 06/18/2024 9:03 AM EDT Ragini Unger MD POINT OF CARE TEST O RDERABLES * MRI Lumbar Spine wo Contrast (Generic) (06/18/2024 8:20 AM EDT) Pathologist [employer] WORKSTATION ID [id number] RAD Anatomical Region Laterality Modality L-spine Magnetic Resonan ce Impressions 06/18/2024 9:45 AM EDT Status post L4-L5 fusion as above without significant spinal canal narrowing. Similar disc osteophyte complex formation eccentric to the left at L5-S1 with subarticular recess and foraminal stenosis. Comment: The following findings are so common in people without low back pain that while we report their presence, they must be interpreted with caution and in context of the clinical situation (Reference- Jarvik Et Al, Spine 2001). Findings: (Prevalence in patients without low back pain), disc degeneration (decreased T2 signal, height loss, bulge) (91%), disc T2-signal loss (83%), disc height loss (56%), disc bulge (64%), disc protrusion (32%), annular fissure (38%). Thank you for letting us participate in the care of this patient. ??If you are a health care provider and have any questions regarding this report, please contact the number below. ??For patients who have questions please contact the health managed care director that requested your imaging first. ? Electronically signed by: Khai Friedman DO, [facility] ??([phone]), at 06/18/2024 9:45 AM Narrative 06/18/2024 9:45 AM EDT EXAMINATION: MRI LUMBAR SPINE WO CONTRAST (GENERIC) CLINICAL HISTORY: spine fusion, return of symptoms M43.16, Spondylolisthesis, lumbar region TECHNIQUE: MRI of the lumbar spine performed without intravenous contrast administration. COMPARISON: Lumbar spine MRI 01/05/2023 FINDINGS: There is interval instrumented anterior and posterior L4-L5 fusion. No evidence of significant residual spinal canal narrowing. Left foraminal evaluation is somewhat limited by regional artifact, question mild osseous bridging or scarring traversing the level of the foramen, without evidence of nerve root displacement or compression. There is similar disc osteophyte complex eccentric to the left at L5-S1 with asymmetric left subarticular recess narrowing and moderate foraminal stenosis. Central spinal canal and right neural foramen are patent. The distal cord, conus medullaris and cauda equina appear normal. Very small suprafascial pocket noted, left of midline at the upper L4 level. No additional interval marrow lesions or paraspinal soft tissue pathology noted. Procedure Note Khai Friedman DO - 06/18/2024 EXAMINATION: MRI LUMBAR SPINE WO CONTRAST (GENERIC) CLINICAL HISTORY: spine fusion, return of symptoms M43.16, Spondylolisthesis, lumbar region TECHNIQUE: MRI of the lumbar spine performed without intravenous contrastadministration. COMPARISON: Lumbar spine MRI 01/05/2023 FINDINGS: There is interval instrumented anterior and posterior L4-L5 fusion. No evidence of significant residual spinal canal narrowing. Leftforaminal evaluation is somewhat limited by regional artifact, question mildosseous bridging or scarring traversing the level of the foramen, without evidenceof nerve root displacement or compression. There is similar disc osteophyte complex eccentric to the left at L5-S1with asymmetric left subarticular recess narrowing and moderate foraminalstenosis. Central spinal canal and right neural foramen are patent. The distal cord, conus medullaris and cauda equina appear normal. Very small suprafascial pocket noted, left of midline at the upper [id number]. No additional interval marrow lesions or paraspinal soft tissue pathologynoted. IMPRESSION Status post L4-L5 fusion as above without significant spinal canalnarrowing. Similar disc osteophyte complex formation eccentric to the left at L5-S1with subarticular recess and foraminal stenosis. Comment: The following findings are so common in people without low backpain that while we report their presence, they must be interpreted with cautionand in context of the clinical situation (Reference- Judd Et Al, [id number]). Findings: (Prevalence in patients without low back pain), discdegeneration (decreased T2 signal, height loss, bulge) (91%), disc T2-signal loss(83%), disc height loss (56%), disc bulge (64%), disc protrusion (32%), annularfissure (38%). Thank you for letting us participate in the care of this patient. If youare a health care provider and have any questions regarding this report,please contact the number below. For patients who have questions please contactthe health managed care director that requested your imaging first. Electronically signed by: Khai Friedman DO, [facility]([phone]), at 06/18/2024 9:45 AM Bret Nicholson MD [facility] MRI ORDERABLES * U Albumin/Cre Ratio (10/25/2023 2:49 PM EST) Albumin / Creatinin Ratio, Urine 8 0 - 29 mcg/mg Cr [facility] Comment: Reference Ranges: <30 mcg/mg: Normal 30-300 mcg/mg: Moderately increased albuminuria.* >300 mcg/mg: Severely increased albuminuria. * ACEI or ARB recommended if diabetic; suggested if BP>130/80 without diabetes ACEI or ARB strongly recommended if diabetic; recommended if BP>130/80 without diabetes Two of three specimens collected within a 3 to 6 month period should be abnormal before considering a patient to have albuminuria. Transient causes: exercise, fever, infection, CHF, marked hyperglycemia or hypertension. Persistent albuminuria indicates CKD and is an independent risk factor for ASCVD. ADA Standards of Medical Care in Diabetes-2016; KDIGO: Kidney International Supplements (2012) 2, 357? 362 Albumin, Urine 10.8 mg/L [facility] Creatinine, Urine 130 mg/dL [facility] Urine 10/25/2023 2:49 PM EST 10/25/2023 7:36 PM EST Narrative Resulting Agency Comment Spec In Lab Ragini Unger MD URINE ORDERABLES Performing Organization Address City/State/[facility] Co de Phone Number [facility] [place] [place] [address] * Lipid Panel (Reflex Direct LDL) (10/25/2023 2:49 PM EST) Cholesterol, Total 192 mg/dL [facility] Comment: Lower Risk: <200 mg/dL Average Risk: 200-239 mg/dL Higher Risk: >sy=174 mg/dL Triglyceride 502 mg/dL [facility] Comment: Average Risk/Lower Risk: <150 mg/dL Borderline High Risk: 150-199 mg/dL High Risk: 200-499 mg/dL Very High Risk: >bz=149 mg/dL HDL Cholesterol 28 mg/dL [facility] Comment: Males: ?? Higher Risk: <40 mg/dL Females: ?? Higher Risk: <50 mg/dL LDL Cholesterol Not Calculated [facility] Comment: Calculated LDL value is not valid for triglycerides greater than 400 mg/dl. Lowest Risk: <100 mg/dL Lower Risk: 100-129 mg/dL Borderline High Risk: 130-159 mg/dL High Risk: 160-189 mg/dL Very High Risk: >gs=469 mg/dL Cholesterol/HDL Ratio 6.9 ratio [facility] Lipid Interpretation See Note [facility] Comment: Lipid management should be guided by a patient? s ASCVD risk, goals and preferences. ACC/AHA Guidelines recommend high intensity statin if clinical ASCVD or LDL greater than or equal to 190 mg/dL. http://Seederurl.com/AOI-AKF-Hqdoeatoa Adults aged 40-75 with LDL 70-189 mg/dL should have their 10 year ASCVD risk estimated with the ACC/AHA ASCVD risk construction cost estimator http://tools.acc.org/QDRTO-Ylci-Qybllmkgh/ Statin should be discussed if risk greater than or equal to 7.5% in non-diabetics. With diabetes, moderate intensity statin is recommended if risk less than 7.5%, high intensity if risk greater than or equal to 7.5%. Annual lipid monitoring on statins is not necessary. Evaluate secondary causes of Triglycerides greater than 500 mg/dL or LDL greater than 190 mg/dL: See table 6 of ACC/AHA Guideline. Lifestyle modification is a critical component of ASCVD risk reduction. Blood 10/25/2023 2:49 PM EST 10/25/2023 7:16 PM EST Narrative Resulting Agency Comment Spec In Lab Ragini Unger MD CHEMISTRY ORDERABLES Performing Organization Address [facility] Co de Phone Number [facility] [place] [address] * Hepatitis C Antibody (08/20/2021 11:25 AM EDT) Hepatitis C Antibody Negative Negative [facility] Blood 08/20/2021 11:2 5 AM EDT 08/20/2021 6:49 PM EDT Narrative Resulting Agency Comment Spec In Lab Ragini Unger MD CHEMISTRY ORDERABLES Performing Organization Address [facility] Co de Phone Number [facility] [place] [address] * HPV (09/25/2018 2:08 PM EST) HPV16 NEGATIVE NEGATIVE [facility] HPV 18 NEGATIVE NEGATIVE [facility] HPV Other HR NEGATIVE NEGATIVE [facility] HPV Interpretation See Comment [facility] Comment: NEGATIVE for high-risk HPV *. * Testing negative for high risk HPV means that the specimen is negative for the following 14 types tested: ??types 16, 18, 31, 33, 35, 39, 45, 51, 52, 56, 58, 59, 66, and 68. ??The test is not intended to detect low risk HPV types. Claudia Nikhil HPV test Specimen: HPV Testing - Cytology Liquid Based Prep Cervical swab (specimen) 09/25/2018 2:08 PM EST 09/25/2018 10:44 PM EST Narrative Resulting Agency Comment Spec In Lab Marguerite Riley MD PATHOLOGY/CYTOLOG Y ORDERABLES [facility] [place] [address] * [employer] Cytology Final Report (09/25/2018 2:08 PM EST) Member [employer] Cytology Final Report [id number] ? Location: [facility] The signing pathologist has (i) examined the relevant preparation(s) for the specimen(s) and (ii) rendered or confirmed the diagnosis(es). . ? Member [employer] Final DIAGNOSIS Normal Negative for intraepithelial lesion or malignancy (NILM). For consensus guidelines for the management of cervical cancer screening test results, please see: ?? http://www.asccp.o rg . Electronically signed by: ??Ramirez DAWKINS(ASCP)Brandee Verified: ??10/04/2018 ?Outpatient Case Manager Performed at: ??-[facility] Dept. of Pathology, [place], [place] DISCUSSION Shift in eddie suggestive of bacterial vaginosis. HPV RESULTS HPV16 (Result) ?Negative HPV18 (Result) ?Negative HPVOHR (Result) ? Negative HPV (Interpretation) ?See Below HPV (Interpretation) Text: NEGATIVE for high-risk HPV *. *Testing negative for high risk HPV means that the specimen is negative for the following 14 types tested: types 16, 18, 31, 33, 35, 39, 45, 51, 52, 56, 58, 59, 66, and 68. The test is not intended to detect low risk HPV types. Claudia nikhil HPV test Specimen: HPV Testing - Cytology Liquid Based Prep The Claudia nikhil ? HPV test was validated, performed and results reported through the [facility] ([facility]) at [facility]. ? - Kwame Rebolledo, PhD, [facility], Director-[facility] STATEMENT OF ADEQUACY Specimen submitted is satisfactory for evaluation. No endocervical component present. Note: ??Initial cross-sectional studies suggested that DANICA cells were more commonly identified when an endocervical component was present, however subsequent longitudinal studies fail to show that women lacking an endocervical component in a Pap smear are at increased risk for DANICA. CLINICAL INFORMATION HPV Option: ?Concurrent HPV and Pap CT/NG Option: ?? No Preparation: ? Liquid based Pap Specimen Source: ? Endocervical LMP: ? roughly 09/03/2018 Hormones?: ? No Hysterectomy?: ? No ?: ? Yes ?: ? No I.U.D.?: ? No Pelvic Radiation: ?No Prior ORNAMENTER HAND Therapy?: ?Other (comment) . CLINICAL INFORMATION Hist Abnl Pap/Biopsy?: ?? Yes, Pap after Cryo, LEEP Hist of HPV Vaccine?: ?No Hist of Smoking?: ?Yes Hist of EDUARD exposure?: ?? No ICD Diagnosis: ? Z12.4 Encounter for screening for malignant neoplasm of cervix Clinical Data, Significant Therapy and Clinical Impression ?? : ?History of abnormal PAP in 2001, patient had ?1/4 cervix cut out presumed LEEP, no abnormal pap smears after LEEP This Pap Test has been evaluated with the assistance of the ThinPrep Pap Test Imaging System. Note: The Pap test is a screening test for cervical cancer with an inherent false-negative rate dependent upon several variables. For further information please contact the [facility] Laboratory. Reference: Cirilo LEE. Juke Box Servicer of Pap Smear Results. In: Magali BS, [facility], ed. The Pap Smear. [facility]: [place], 2002: 71-77. [facility] 09/25/2018 2:08 PM EST Marguerite Riley MD PATHOLOGY/CYTOLOG Y ORDERABLES Performing Organization Address [facility] Co de Phone Number [facility] [place] [address] * HIV Screen, 4th Generation (08/15/2017 10:17 AM EDT) [facility] HIV Ab/Ag Screen Negative Negative [facility] Comment: This 4th Generation HIV test screens for the presence of the HIV-1 p24 antigen as well as antibodies reactive against HIV-1 and HIV-2. A negative screen does not rule out an acute HIV infection. If acute HIV infection is suspected, testing should be repeated in 2 - 3 weeks or HIV nucleic acid testing performed. Blood specimen (specimen) 08/15/2017 10:17 AM EDT 08/15/2017 12:28 PM EDT Narrative Resulting Agency Comment Spec In Lab Ragini Unger MD CHEMISTRY ORDERABLES Performing Organization Address [facility] Co de Phone Number [facility] [place] [address] * COLONOSCOPY (06/11/2015 1:33 PM EDT) COLONOSCOPY [facility] Endoscopy Patient Name: Tracie Layton ? Procedure Date: 06/11/2015 1:33 PM ? Date of : 1970 ? Age: 44 ? Order #: [id number] ? Procedure: ? Colonoscopy Indications: ? Abdominal pain in the left lower ? quadrant Providers: ? Julee Kuhn ? Ori Mtz, ? Packing Attendant Referring MD: ?Nicolle Spencer MD, Scotty ? MD Luis A Medicines: ? Midazolam 5 mg IV, Fentanyl 225 ? micrograms IV Complications: ? No immediate complications. Procedure: ? Pre-Anesthesia Assessment: ? - Prior to the procedure, a History ? and Physical was performed, and ? patient medications and allergies ? were reviewed. The patient is ? competent. The risks and benefits of ? the procedure and the sedation ? options and risks were discussed with ? the patient. All questions were ? answered and informed consent was ? obtained. Patient identification and ? proposed procedure were verified by ? the physician, the nurse and the ? geothermal hvac technician in the pre-procedure area ? in the procedure room. Mental Status ? Examination: normal. Airway ? Examination: normal oropharyngeal ? airway and neck mobility. Respiratory ? Examination: clear to auscultation. ? CV Examination: normal. Prophylactic ? Antibiotics: The patient does not ? require prophylactic antibiotics. ? Prior Anticoagulants: The patient has ? taken no previous anticoagulant or ? antiplatelet agents. ASA Grade ? Assessment: II - A patient with mild ? systemic disease. After reviewing the ? risks and benefits, the patient was ? deemed in satisfactory condition to ? undergo the procedure. The anesthesia ? plan was to use moderate sedation / ? analgesia (conscious sedation). ? Immediately prior to administration ? of medications, the patient was ? re-assessed for adequacy to receive ? sedatives. The heart rate, ? respiratory rate, oxygen saturations, ? blood pressure, adequacy of pulmonary ? ventilation, and response to care ? were monitored throughout the ? procedure. The physical status of the ? patient was re-assessed after the ? procedure. ? The procedure, indications, benefits, ? risks and alternatives were explained ? to the patient. Specifically ? discussed were potential ? complications including, but not ? limited to, bleeding, perforation, ? infection, missing a cancer, and ? adverse medication reactions. The ? patient was placed in the left ? lateral decubitus position, and a ? digital rectal exam was performed. ? The Colonoscope was inserted in the ? anus and under direct visualization, ? advanced to the cecum, identified by ? appendiceal orifice and ileocecal ? valve. Careful inspection was made as ? the colonoscope was withdrawn. The ? colonoscopy was technically difficult ? and complex due to significant ? looping and a tortuous colon. ? Successful completion of the ? procedure was aided by changing the ? patient's position, withdrawing and ? reinserting the scope, straightening ? and shortening the scope to obtain ? bowel loop reduction and applying ? abdominal pressure. The patient ? tolerated the procedure fairly well. ? The quality of the bowel preparation ? was adequate to identify polyps. ? Findings: ? The perianal and digital rectal examinations were ? normal. ? A 5 mm polyp was found in the sigmoid colon. The ? polyp was sessile. The polyp was removed with a cold ? snare. Resection and retrieval were complete. ? Verification of patient identification for the ? specimen was done by the physician and geothermal hvac technician ? using the patient's name, date and medical ? record number. ? The sigmoid colon was significantly redundant and ? tortuous resulting in looping of the colonoscope. ? Advancing the scope required changing the patient's ? position, withdrawing and reinserting the scope, ? straightening and shortening the scope to obtain ? bowel loop reduction and applying abdominal pressure. ? The exam was otherwise without abnormality on direct ? and retroflexion views. ? Impression: ?- One 5 mm polyp in the sigmoid ? colon. Resected and retrieved. ? - Redundant and tortuous sigmoid ? colon. ? - The examination was otherwise ? normal on direct and retroflexion ? views. Recommendation: ?- Await pathology results. ? - Repeat colonoscopy for surveillance ? based on pathology results. ? - No cause of left lower quadrant ? pain was identified. Given tortuous ? left colon, possible that bowel spasm ? and constipation play a role. ? Consider Miralax or fiber supplement ? and antispasmodic. ? - Follow-up in the GI clinic as ? scheduled. ? Attending Participation: ? I personally performed the entire procedure. ? _ aLrry Ryan, 06/11/2015 3:11 PM Number of Addenda: 0 Note Initiated On: 06/11/2015 1:33 PM PROVATION 06/11/2015 1:33 PM EDT Nicolle Spencer MD GENERAL SURGICAL ORD ERABLES PROVATION from Last 3 Months or Most Recently Relevant to Health Maintenance Advance Directives * Attempt Cardiopulmonary Resuscitation - Inpatient (Latest Code Status on File) Date Activated Date Inactivated Comments 12/15/2023 12:11 PM 12/16/2023 1:48 PM Question Answer Comments Code Status decision made by: Patient * Full Code Date Activated Date Inactivated Comments 06/06/2017 12:07 PM 06/06/2017 5:14 PM Question Answer Comments Does patient have capacity to make decision: Yes * Full Code Date Activated Date Inactivated Comments 06/08/2016 6:31 AM 06/08/2016 11:59 AM Question Answer Comments Does patient have capacity to make decision: Yes * Full Code Date Activated Date Inactivated Comments 02/22/2016 11:11 AM 02/25/2016 2:27 PM Question Answer Comments Does patient have capacity to make decision: Yes * Full Code Date Activated Date Inactivated Comments 08/25/2015 6:28 PM 08/28/2015 6:06 PM Question Answer Comments Does patient have capacity to make decision: Yes Care Teams Engineer Intern Relationship Specialty Start Date End Date Gema Oliveira DO [facility] MEDICINE [place], [place] [id number] PCP - General General Internal Medicine 05/17/23
--- OUTSIDE RECORDS SUMMARY | 2024-07-12 00:26 | XMS_ITS | Encounter Summary ---
Author Organization [facility] Address [facility] [place] [address] Care Team Providers Care Automotive Brake Technician Name Role Phone Gema Oliveira DO Primary Care Provider [phone]- [phone] Encounter Details Date Type Department Care Team (Latest Contact Info) Description 01/07/2024 Travel Social History Tobacco Use Types Packs/Day [...] AM EDT Office Visit Internal Medicine at [address] [address] Gema Oliveira DO [facility] [address] [facility] [place] [address] documented as of this encounter Visit Diagnoses Not on filedocumented in this encounter Care Teams Automotive Brake Technician Relationship Specialty Start Date End Date Gema Oliveira DO [facility] [address] [place] [address] PCP - General General Internal Medicine 05/17/23 documented as of this encounter
--- OUTSIDE RECORDS SUMMARY | 2024-07-12 00:26 | XMS_ITS | Encounter Summary ---
Author Organization [facility] Address [facility] [place] [address] Care Team Providers Care Director Of Quantitative Research Name Role Phone Gema Oliveira DO Primary Care Provider [phone]- [phone] Reason for Visit * Reason Onset Date Comments Medication Refill 06/03/2024 Encounter Details Date Type Department Care Team (Late st Contact Info) Description 06/03/2024 Refill Internal Medicine at [address] [address] Gema Oliveira, DO [facility] [place] [address] Essential hypertension Social History Tobacco Use Types Packs/Day Years [...] place to sleep or slept in a residential (including now)? Patient refused 02/10/2023 IPV Inpatient [...] encounter Miscellaneous Notes * Telephone Encounter - Devi BridgetteAYAN Bailey - 06/04/2024 12:19 PM EDT Prescription Renewal Request Name: Tracie Layton : 1970 Prescription(s) Requested: Requested Prescriptions Pending Prescriptions Disp Refills lisinopriL (Zestril) 40 mg tablet 90 tablet 3 Sig: Take 1 tablet by mouth daily. Date of Encounter last in This Dept (If need an appointment send to secretaries to schedule): 04/22/24 Next Encounter in This Dept: 06/18/2024 Date of Last Refill (for each medication): 05/16/23 90x3 Medication category requirements (labs etc): Lab Results Component Value Date NA 143 10/05/2023 K 3.7 10/05/2023 CL 102 10/05/2023 CO2 28 10/05/2023 BUN 17 10/05/2023 CREATININE 1.09 10/05/2023 GLUCOSE 211 (H) 12/07/2022 GLUCFASTING 116 (H) 02/22/2016 CALCIUM 9.9 12/07/2022 ESTGFR 62 10/05/2023 Status of request: Pended Allergies Allergen Reactions Bactrim [Sulfamethoxazole-Trimethoprim] Anaphylaxis Trimethoprim Anaphylaxis Adhesive Tape Rash Aleve [Naproxen Sodium] Rash Per neuro team, patient has tolerated ketorolac in the past Keflex [Cephalexin] Other (See Comments) Racing heart Meloxicam Nausea Only Amlodipine Nausea And Vomiting AYAN Canales 06/04/24 12:19 PM documented in this encounter Plan of Treatment Upcoming Encounters Date Type Department Care Team (Late st Contact Info) Description 09/05/2024 9:00 AM EDT Office Visit Internal Medicine at [address] [id number] Gema Oliveira DO [facility] [address] [facility] [place] [address] documented as of this encounter Visit Diagnoses Diagnosis Essential hypertension Unspecified essential hypertension documented in this encounter Care Teams Director Of Quantitative Research Relationship Specialty Start Date End Date Gema Oliveira DO [facility] [place] [address] PCP - General General Internal Medicine 05/17/23 documented as of this encounter
--- OUTSIDE RECORDS SUMMARY | 2024-07-12 00:26 | XMS_ITS | Encounter Summary ---
Author Organization [facility] Address [facility] [place] [address] Care Team Providers Care Healthcare Educator Name Role Phone Gema Oliveira DO Primary Care Provider +1- [phone] Reason for Referral * Diagnostic Test (Routine) - Closed Specialty Diagnoses / Procedures Referred By Contabdulkadir t Referred To Contact Diagnoses Pain and swelling of left lower leg Procedures Duplex for DVT, Leg, Unilat Eufemia Ballard PA [facility] [place] [address] [facility] [address] [place] [address] Referral ID Status Reason Start Date Expiration Date V isits Requested Visits Authorized [id number] Closed Specialty Service Requested 12/29/2023 12/28/2024 1 1 Encounter Details Date Type Department Care Team (Late st Contact Info) Description 12/29/2023 Telephone [place] [address] Eufemia Ballard PA [facility] [place] [address] Social History Tobacco Use Types Packs/Day Years [...] a residential (including now)? Patient refused 02/10/2023 DH IPV Inpatient Questions Answer Date Recorded Does [...] encounter Miscellaneous Notes * Telephone Encounter - Elio, Eufemia M, PA - 12/29/2023 3:43 PM EST Patient emailed Dr. Jean reporting new leg pain and swelling. She is s/p MIS L4-5 instrumented fusion on 12/15/23. Patient reports new throbbing pain in her left lateral thigh for the past 3 days. This pain is occasionally felt below her knee though denies calf pain. There is new swelling in her left foot. She denies redness, color changes or warmth in her left LE. She denies right LE symptoms. She denies weakness or paresthesias. She is able to walk and bear full weight on her leg. She denies bowel or bladder issues. Pain is increased by touching area and with movement of the foot and leg. She is a former smoker with hx of asthma and recently tested + for RSV while in the hospital for back surgery. She uses home nebulizer with benefit but denies worsening SOB or chest pain. She has been using Tylenol for pain relief and may consider trial of compression stocking for leg swelling. Recommending duplex US of left LE to r/o DVT. Advised to seek more emergent evaluation if experiences worsening pain, swelling, redness, or changes in motor or neurologic function of the leg.She agrees to above plan and will follow up with results once completed. documented in this encounter Plan of Treatment Upcoming Encounters Date Type Department Care Team (Late st Contact Info) Description 09/05/2024 9:00 AM EDT Office Visit Internal Medicine at [address] [address] Gema Oliveira, [facility] [place] [address] documented as of this encounter Results * Duplex for DVT, Leg, Unilat (01/02/2024 7:21 AM EST) VB Text Report Department: Vascular Surgery Lab Patient: [id number] (TRACIE HAYDEN) CPT: [id number] Referring Physician: BRET JEAN ?? Phone: Indications: L lateral thigh and knee pain s/p back surgery. ? DVT Findings: LEFT: Patent common femoral vein and popliteal vein with spontaneous, respirophasic Doppler waveforms that respond normally to augmentation maneuvers. The common femoral vein, saphenofemoral junction, femoral vein through the thigh and popliteal vein are fully compressible. Patent posterior tibial and peroneal veins with no evidence of thrombus. Interpretation: LEFT: ??No evidence of lower extremity deep venous thrombosis. Comparison: ??No previous study in our vascular lab database for comparison. Electronically Signed by: DARRYN ARREAGA MD on 2024-01-05 07:33:16 AM VASCUBASE VB Text Report End of Report VASCUBASE 01/02/2024 7:21 AM EST Bret Jean MD VASCULAR ORDERABLES VASCUBASE documented in this encounter Visit Diagnoses Diagnosis Pain and swelling of left lower leg documented in this encounter Care Teams Healthcare Educator Relationship Specialty Start Date End Date Gema Oliveira DO [facility] [place] [address] PCP - General General Internal Medicine 05/17/23 documented as of this encounter
--- OUTSIDE RECORDS SUMMARY | 2024-07-12 00:26 | XMS_ITS | Encounter Summary ---
Author Organization [facility] Address [facility] [place] [address] Care Team Providers Care Project Engineer Chemicals Name Role Phone Gema Oliveira DO Primary Care Provider +1- [phone] Encounter Details Date Type Department Care Team (Latest Contact Info) Description 06/17/2024 Travel Social History Tobacco Use Types Packs/Day [...] place to sleep or slept in a chcf (including now)? Patient refused 02/10/2023 IPV Inpatient [...] AM EDT Office Visit Internal Medicine at [address] [address] Gema Oliveira DO [facility] [address] [facility] [place] [address] documented as of this encounter Visit Diagnoses Not on filedocumented in this encounter Care Teams Project Engineer Chemicals Relationship Specialty Start Date End Date Gema Oliveira DO [facility] [place] [address] PCP - General General Internal Medicine 05/17/23 documented as of this encounter
--- OUTSIDE RECORDS SUMMARY | 2024-07-12 00:26 | XMS_ITS | Encounter Summary ---
Author Organization [facility] Address [facility] [place] [address] Care Team Providers Care Receptionist Scheduler Name Role Phone Gema Oliveira DO Primary Care Provider +1- [phone] Encounter Details Date Type Department Care Team (Late st Contact Info) Description 05/01/2024 Orders Only Internal Medicine at [facility] [address] [place] [address] Zina Siddiqi, CCMA Nicotine dependence, cigarettes, uncomplicated Social History Tobacco Use Types Packs/Day Years [...] a [facility] (including now)? Patient refused 02/10/2023 DH IPV [...] AM EDT Office [place] [address] Gema Oliveira DO [facility] [place] [address] documented as of this encounter Visit Diagnoses Diagnosis Nicotine dependence, cigarettes, uncomplicated documented in this encounter Care Teams Receptionist Scheduler Relationship Specialty Start Date End Date Gema Oliveira DO [facility] [address] [facility] [address] PCP - General General Internal Medicine 05/17/23 documented as of this encounter
--- OUTSIDE RECORDS SUMMARY | 2024-07-12 00:26 | XMS_ITS | Encounter Summary ---
Author Organization [facility] Address [facility] [place] [address] Care Team Providers Care Operator Name Role Phone Gema Oliveira DO Primary Care Provider +1- [phone] Encounter Details Date Type Department Care Team (Latest Contact Info) Description 03/13/2024 11:20 AM EDT Office Visit Neurosurgery at [address] [address] Bret Nicholson MD [facility] [place] [address] Postoperative visit; Spondylolisthesis of lumbar region Social History Tobacco Use Types Packs/Day Years [...] on file documented as of this encounter Progress Notes * Eufemia Ballard PA - 03/13/2024 11:20 AM EDT Images from the original note were not included. Section of Neurosurgery RE: Tracie Layton : 1970 Ms. Layton is a 53 y.o. female following up s/p L4-5 decompression instrumented fusion on 12/15/2023. She reports occasional stiffness in her low back and hips but generally finds notable improvement in her pre-op symptoms. The radiating thigh pain reported at last visit has resolved. She denies other concerns or complaints today. PHYSICAL EXAMINATION: No data found. General: NAD HEENT: Atraumatic, normocephalic Speech: Appropriate and fluent; answers questions appropriately. RADIOGRAPHIC STUDIES: I personally reviewed plain films completed today with satisfactory post op changes. IMPRESSION AND PLAN: Ms. Layton is a 53 y.o. female presenting 3 months post op L45 fusion. She reports improvement in pre-op symptoms without further concerns today. She will follow up as needed with the neurosurgery office. HERNANDEZ Negrete Section of Neurosurgery [address] [address] documented in this encounter Plan of Treatment Upcoming Encounters Date Type Department Care Team (Late st Contact Info) Description 09/05/2024 9:00 AM EDT Office Visit Internal Medicine at [address] [address] Gema Oliveira DO [facility] [address] [facility] [address] documented as of this encounter Visit Diagnoses Diagnosis Postoperative visit Spondylolisthesis of lumbar region Acquired spondylolisthesis documented in this encounter Care Teams Operator Relationship Specialty Start Date End Date Gema Oliveira DO [facility] [place] [address] PCP - General General Internal Medicine 05/17/23 documented as of this encounter
--- OUTSIDE RECORDS SUMMARY | 2024-07-12 00:26 | XMS_ITS | Encounter Summary ---
Author Organization [facility] Address [facility] [place] [address] Care Team Providers Care Betting Agency Counter Clerk Name Role Phone Gema Oliveira DO Primary Care Provider +1- [phone] Reason for Visit * Reason Onset Date Comments Medication Refill 05/08/2024 Encounter Details Date Type Department Care Team (Late st Contact Info) Description 05/08/2024 Refill Internal Medicine at [address] [id number] Gema Oliveira, DO [facility] [place] [address] Type 2 diabetes mellitus without complication, unspecified whether longterm insulin use Social History Tobacco Use Types Packs/Day Years [...] place to sleep or slept in a long term (including now)? Patient refused 02/10/2023 IPV Inpatient [...] encounter Miscellaneous Notes * Telephone Encounter - ToneBritt, [employer] CAN SUPPLY SUPERVISOR - 05/08/2024 1:04 PM EDT Prescription Renewal Request Name: Tracie Layton : 1970 Prescription(s) Requested: Requested Prescriptions Pending Prescriptions Disp Refills blood sugar diagnostic strips Strip 400 each 3 Si strip by Other route 4 times daily. Use as instructed Prefers one touch Ultra, but make surestrips ordered match machine dispensed Date of Encounter last in This Dept (If need an appointment send to secretaries to schedule): 10/25/23 Next Encounter in This Dept: 06/18/2024 Date of Last Refill (for each medication): 04/27/23 Medication category requirements (labs etc): n/a Status of request: Pended Allergies Allergen Reactions Bactrim [Sulfamethoxazole-Trimethoprim] Anaphylaxis Trimethoprim Anaphylaxis Adhesive Tape Rash Aleve [Naproxen Sodium] Rash Per neuro team, patient has tolerated ketorolac in the past Keflex [Cephalexin] Other (See Comments) Racing heart Meloxicam Nausea Only Amlodipine Nausea And Vomiting Britt Wayne CMA 05/08/24 1:04 PM documented in this encounter Plan of Treatment Upcoming Encounters Date Type Department Care Team (Late st Contact Info) Description 09/05/2024 9:00 AM EDT Office Visit Internal Medicine at [place] [phone] Gema Oliveira DO [facility] [address] documented as of this encounter Visit Diagnoses Diagnosis Type 2 diabetes mellitus without complication, unspecified whether longterm insulin use documented in this encounter Care Teams Betting Agency Counter Clerk Relationship Specialty Start Date End Date Gema Oliveira DO [facility] [place] [address] PCP - General General Internal Medicine 05/17/23 documented as of this encounter
--- OUTSIDE RECORDS SUMMARY | 2024-07-12 00:26 | XMS_ITS | Encounter Summary ---
Author Organization [facility] Address [facility] [place] [address] Care Team Providers Care Program Director/Traffic Director Name Role Phone Gema Oliveira DO Primary Care Provider +1- [phone] Encounter Details Date Type Department Care Team (Latest Contact Info) Description 03/13/2024 10:24 AM EDT - 03/13/2024 11:59 PM EDT Hospital Encounter XRay at [address] [address] Bret Nicholson MD [facility] [place] [address] Postoperative visit; Spondylolisthesis of lumbar region Discharge Disposition: Home [...] a chcf (including now)? Patient refused 02/10/2023 DH IPV [...] Sig Dispensed Refills Start Date End Date metFORMIN (Glucophage) 1,000 mg tabletIndications:Typ e 2 [...] diabetes mellitus without complication, unspecified whether terminal operations manager insulin use 1 kit by [facility].(Non-Drug; Combo Route) route 4 times [...] Pad, Liner, Disp Pad 1 each by [facility].(Non-Drug; Combo Route) route every 4 hours as needed (for incontinence). 200 each 11 10/03/2019 ondansetron ODT (Zofran-ODT) 4 mg disintegrating tabletIndications:Darnell sea without vomiting DISSOLVE ONE TABLET ON THE TONGUE EVERY 8 HOURS NEEDED FOR NAUSEA 60 tablet 02/15/2024 04/17/2024 ipratropium-albuteroL (Duoneb) 0.5 mg-3 mg(2.5 mg base)/3 mL Solution for Nebulization INHALE THE CONTENTS OF 1 VIAL BY NEBULIZATION EVERY 4 HOURS NEEDED 180 mL 12/18/2023 04/17/2024 metoprolol succinate XL (Toprol-XL) 50 mg ER 24 hr tabletIndications:Hyp ertension, essential, benign Take 1 tablet by mouth daily. 30 tablet 12 11/06/2023 06/18/2024 omeprazole (PriLOSEC) [address] capsuleIndications:Ga stroesophageal reflux disease without esophagitis Take 1 capsule by mouth daily. 90 capsule 3 06/14/2023 06/16/2024 lisinopriL (Zestril) 40 mg tabletIndications:Ess ential hypertension TAKE ONE TABLET BY MOUTH EVERY DAY 90 tablet 3 05/16/2023 06/03/2024 blood sugar diagnostic strips StripIndications:Type 2 diabetes mellitus without complication, unspecified whether residential insulin use 1 strip by Other route 4 times daily. Use as instructed Prefers one touch Ultra, but make sure strips ordered match machine dispensed 400 each 3 04/27/2023 05/08/2024 Ventolin HFA 90 mcg/actuation HFA Aerosol InhalerIndications:Mi ld intermittent asthma without complication,Obstruct malcolm lung disease (generalized) INHALE TWO PUFFS INTO THE LUNGS EVERY 4 HOURS NEEDED FOR WHEEZING 18 g 3 03/20/2023 04/16/2024 documented as of this encounter Plan of Treatment Upcoming Encounters Date Type Department Care Team (Late st Contact Info) Description 09/05/2024 9:00 AM EDT Office Visit Internal Medicine at [address] [address] Gema Oliveira, [facility] [place] [id number] documented as of this encounter Procedures Procedure Name Priority Date/Time Associated Diagnosis Comments XR LUMBAR SPINE 2 OR 3 VIEWS Routine 03/13/2024 10:31 AM EDT Postoperative visit Spondylolisthesis of lumbar region documented in this encounter Results * XR Lumbar Spine 2 Or 3 Views (Generic) (03/13/2024 10:31 AM EDT) WORKSTATION ID [id number] RAD Anatomical Region Laterality Modality L-spine N/A Digital Radiogra phy Impressions 03/13/2024 3:12 PM EDT Status post L4-L5 posterior spinal instrumented fusion in unchanged alignment. Thank you for letting us participate in the care of this patient. ??If you are a health care provider and have any questions regarding this report, please contact the number below. ??For patients who have questions please contact the health health careers instructor that requested your imaging first. ? Electronically signed by: Dinorah Fleming MD, [facility] ([phone]), at 03/13/2024 3:12 PM Narrative 03/13/2024 3:12 PM EDT EXAMINATION: XR LUMBAR SPINE 2 OR 3 VIEWS (GENERIC) CLINICAL HISTORY: s/p fusion Z48.89, Encounter for other specified surgical aftercare - M43.16, Spondylolisthesis, lumbar region TECHNIQUE: 2 views of the lumbar spine COMPARISON: Lumbar spine radiograph 01/17/2024 FINDINGS: There are 5 nonrib-bearing lumbar-type vertebrae. Status post L4-L5 posterior spinal instrumented fusion with interbody device. Hardware is intact. No spondylolisthesis. Alignment is unchanged. Vertebral body heights and intervertebral disc spaces are preserved. Multilevel spondylosis most pronounced at L5-S1, unchanged. Procedure Note Dinorah Fleming MD - 03/13/2024 EXAMINATION: XR LUMBAR SPINE 2 OR 3 VIEWS (GENERIC) CLINICAL HISTORY: s/p fusion Z48.89, Encounter for other specified surgical aftercare - M43.16, Spondylolisthesis, lumbar region TECHNIQUE: 2 views of the lumbar spine COMPARISON: Lumbar spine radiograph 01/17/2024 FINDINGS: There are 5 nonrib-bearing lumbar-type vertebrae. Status post L4-L5 posterior spinal instrumented fusion with interbodydevice. Hardware is intact. No spondylolisthesis. Alignment is unchanged. Vertebral body heights and intervertebral disc spaces are preserved. Multilevel spondylosis most pronounced at L5-S1, unchanged. IMPRESSION Status post L4-L5 posterior spinal instrumented fusion in unchangedalignment. Thank you for letting us participate in the care of this patient. If youare a health care provider and have any questions regarding this report,please contact the number below. For patients who have questions please contactthe health health careers instructor that requested your imaging first. Bret Nicholson MD IMG DX ORDERABLES documented in this encounter Visit Diagnoses Diagnosis Postoperative visit Spondylolisthesis of lumbar region Acquired spondylolisthesis documented in this encounter Care Teams Program Director/Traffic Director Relationship Specialty Start Date End Date Gema Oliveira DO [facility] [place] [address] PCP - General General Internal Medicine 05/17/23 documented as of this encounter
--- OUTSIDE RECORDS SUMMARY | 2024-07-12 00:26 | XMS_ITS | Encounter Summary ---
Author Organization [facility] Address [facility] [place] [address] Care Team Providers Care Quilter Fixer Name Role Phone Gema Oliveira DO Primary Care Provider +1- [phone] Reason for Visit * Reason Onset Date Comments Medication Refill 02/14/2024 Encounter Details Date Type Department Care Team (Late st Contact Info) Description 02/14/2024 Refill Internal Medicine at [address] [phone] Gema Oliveira, DO [facility] [place] [address] Type 2 diabetes mellitus without complication, without long-term current use of insulin Social History Tobacco Use Types Packs/Day Years [...] encounter Miscellaneous Notes * Telephone Encounter - Dulce Maria Morrissey MA - 02/14/2024 2:28 PM EDT Prescription Renewal Request Name: Tracie Layton : 1970 Prescription(s) Requested: Requested Prescriptions Pending Prescriptions Disp Refills metFORMIN (Glucophage) 1,000 mg tablet 90 tablet 3 Sig: Take 1 tablet by mouth daily. Date of Encounter last in This Dept (If need an appointment send to secretaries to schedule): 01/08/2024 Roxanne Next Encounter in This Dept: Visit date not found Date of Last Refill (for each medication): 08/14/2023 Medication category requirements (labs etc): Lab Results Component Value Date HA1C 7.5 (A) 10/25/2023 Status of request: Pended Allergies Allergen Reactions Bactrim [Sulfamethoxazole-Trimethoprim] Anaphylaxis Trimethoprim Anaphylaxis Adhesive Tape Rash Aleve [Naproxen Sodium] Rash Per neuro team, patient has tolerated ketorolac in the past Keflex [Cephalexin] Other (See Comments) Racing heart Meloxicam Nausea Only Amlodipine Nausea And Vomiting Dulce Maria Morrissey MA 02/14/24 2:29 PM documented in this encounter Plan of Treatment Upcoming Encounters Date Type Department Care Team (Late st Contact Info) Description 09/05/2024 9:00 AM EDT Office Visit Internal Medicine at [place] [phone] Gema Oliveira DO [facility] [place] [address] documented as of this encounter Visit Diagnoses Diagnosis Type 2 diabetes mellitus without complication, without long-term current use of insulin documented in this encounter Care Teams Quilter Fixer Relationship Specialty Start Date End Date Gema Oliveira DO [facility] [place] [address] PCP - General General Internal Medicine 05/17/23 documented as of this encounter
--- OUTSIDE RECORDS SUMMARY | 2024-07-12 00:26 | XMS_ITS | Encounter Summary ---
Author Organization [facility] Address [facility] [place] [address] Care Team Providers Care Business Leader Name Role Phone Gema Oliveira DO Primary Care Provider +1- [phone] Reason for Visit * Reason Onset Date Comments Medication Refill 06/16/2024 Encounter Details Date Type Department Care Team (Late st Contact Info) Description 06/16/2024 Refill Internal Medicine at [address] [phone] Gema Oliveira, DO [facility] [place] [address] Gastroesophageal reflux disease without esophagitis Social History Tobacco Use Types Packs/Day Years [...] place to sleep or slept in a [place] health [place] facility (including now)? Patient refused 02/10/2023 IPV Inpatient [...] encounter Miscellaneous Notes * Telephone Encounter - Loninabil Bridgette R, [facility] - 06/18/2024 12:52 PM EDT Prescription Renewal Request Name: Tracie Layton : 1970 Prescription(s) Requested: Requested Prescriptions Pending Prescriptions Disp Refills omeprazole (PriLOSEC) [address] capsule 90 capsule 3 Sig: Take 1 capsule by mouth daily. Date of Encounter last in This Dept (If need an appointment send to secretaries to schedule): 06/18/24 Next Encounter in This Dept: 06/18/2024 Date of Last Refill (for each medication): 06/14/23 90x3 Medication category requirements (labs etc): n/a Status of request: Pended Allergies Allergen Reactions Bactrim [Sulfamethoxazole-Trimethoprim] Anaphylaxis Trimethoprim Anaphylaxis Adhesive Tape Rash Aleve [Naproxen Sodium] Rash Per neuro team, patient has tolerated ketorolac in the past Keflex [Cephalexin] Other (See Comments) Racing heart Meloxicam Nausea Only Amlodipine Nausea And Vomiting AYAN Canales 06/18/24 12:52 PM documented in this encounter Plan of Treatment Upcoming Encounters Date Type Department Care Team (Late st Contact Info) Description 09/05/2024 9:00 AM EDT Office Visit Internal Medicine at [address] [address] Gema Oliveira DO [facility] [address] [facility] [address] documented as of this encounter Visit Diagnoses Diagnosis Gastroesophageal reflux disease without esophagitis Esophageal reflux documented in this encounter Care Teams Business Leader Relationship Specialty Start Date End Date Gema Oliveira DO [facility] [address] [facility] [address] PCP - General General Internal Medicine 05/17/23 documented as of this encounter
--- OUTSIDE RECORDS SUMMARY | 2024-07-12 00:26 | XMS_ITS | Encounter Summary ---
Author Organization [facility] Address [facility] [place] [address] Care Team Providers Care Grocery Stocker Name Role Phone Gema Oliveira DO Primary Care Provider +1- [phone] Reason for Visit * Diagnostic Test (Routine) - Closed Specialty Diagnoses / Procedures Referred By María Elena t Referred To Contact Diagnoses Pain and swelling of left lower leg Procedures Duplex for DVT, Leg, Unilat Eufemia Ballard [place] [facility] [place] [address] [facility] [address] [place] [address] Referral ID Status Reason Start Date Expiration Date V isits Requested Visits Authorized [id number] Closed Specialty Service Requested 12/29/2023 12/28/2024 1 1 Encounter Details Date Type Department Care Team (Late st Contact Info) Description 01/02/2024 7:30 AM [facility] Tech [place] [address] Khai Rojas [place] Pain and swelling of left lower leg Social History Tobacco Use Types Packs/Day Years [...] place to sleep or slept in a fci (including now)? Patient refused 02/10/2023 IPV Inpatient [...] AM EDT Office Visit Internal Medicine at [place] [id number] Gema Oliveira DO [facility] [address] [facility] [address] documented as of this encounter Procedures Procedure Name Priority Date/Time Associated Diagnosis Comments DUPLEX FOR DVT, LEG, UNILAT Routine 01/02/2024 7:21 AM EST Pain and swelling of left lower leg documented in this encounter Results * Duplex for DVT, Leg, Unilat (01/02/2024 7:21 AM EST) VB Text Report Department: Vascular Surgery Lab Patient: [id number] (TRACIE HAYDEN) CPT: 63482 Referring Physician: BRET JEAN ?? Phone: Indications: [...] leg documented in this encounter Care Teams Grocery Stocker Relationship Specialty Start Date End Date Gema Oliveira DO [facility] [place] [address] PCP - General General Internal Medicine 05/17/23 documented as of this encounter
--- OUTSIDE RECORDS SUMMARY | 2024-07-12 00:26 | XMS_ITS | Encounter Summary ---
Author Organization [facility] Address [facility] [address] Care Team Providers Care Airframe Technician Name Role Phone Gema Oliveira DO Primary Care Provider +1- [phone] Reason for Visit * Reason Comments Follow-up Has not started PT y et, still moving a little slow. Pushed on one of her incisions yesterday and some puss came out wants to make sure that there is no infection, itchy. Encounter Details Date Type Department Care Team (Late st Contact Info) Description 01/08/2024 9:30 AM EST Office Visit Internal Medicine at [address] [id number] Gema Oliveira, DO [facility] [place] [address] Hypertension, unspecified type; Tachycardia Social History Tobacco Use Types Packs/Day Years [...] Sign Reading Time Taken Comments Blood Pressure 140/82 01/08/2024 9:48 AM EST Pulse 106 01/08/2024 9:13 AM EST Temperature 36.2 ??C (97.1 ??F) 01/08/2024 9:13 AM ES T Respiratory Rate 16 01/08/2024 9:13 AM EST Oxygen Saturation 98% 01/08/2024 9:13 AM EST Inhaled Oxygen Concentration - - Weight 119.7 kg (264 lb) 01/08/2024 9:13 AM EST Height 174.5 cm (5' 8.7) 01/08/2024 9:13 AM EST reported Body Mass Index 39.33 01/08/2024 9:13 AM EST documented in this encounter Patient Instructions * Patient Instructions* Gema Oliveira DO - 01/08/2024 9:30 AM EST -Check blood pressure daily and bring log to the next visit -Get LFT labs when you go to [facility] for follow up appointment -Will optometry appointment * Attachments The following attachments cannot be sent through Care Everywhere. * Meralgia Paresthetica (Slovak) documented in this encounter Progress Notes * Gema Oliveira DO - 01/08/2024 9:30 AM EST Images from the original note were not included. Subjective: Patient ID: Tracie Layton is a 53 y.o. female. Chief Complaint Patient presents with Follow-up Has not started PT yet, still moving a little slow. Pushed on one of her incisions yesterday and some puss came out wants to make sure that there is no infection, itchy. Back surgery 12/15 Improving pain. Achy but not sharp. Able to walk without difficulty. Roommate makes her go to the grocery store every day and walk up and down the aisles. Follows up with NSG 2. HTN Hasn't been measuring at home No vision changes, headaches 3. Low HDL, H/o DM2 -Need to start statin -Remind patient to get LFTs; patient reports she's going to [facility] for labs 4.Anxiety Attributes it to not seeing the grandkids everyday (grandson rambunctious, needs to rest, 1-2 weeksaway, not supposed to lift more than 10 lbs for 4-6 weeks). No SI/HI 01/07/2024 Behavioral Health Responses (QBHI) Total PHQ-9 16 (Moderately Severe Depression) PHQ9 Total Score (Range 0-27) 16 (Moderately Severe Depression) Total FÉLIX-7 15 (Severe Anxiety) GAD7 Total Score (Range 0-21) 15 (Severe Anxiety) Objective: BP 140/82 Pulse (!) 106 Temp 36.2 ??C (97.1 ??F) (Temporal) Resp 16 Ht 174.5 cm (5' 8.7) Comment: reported Wt 119.7 kg (264 lb) LMP 10/01/2019 (Approximate) SpO2 98% BMI 39.33 kg/m?? Wt Readings from Last 3 Encounters: 01/08/24 119.7 kg (264 lb) 12/15/23 120.2 kg (265 lb) 12/01/23 120.7 kg (266 lb 3.2 oz) Gen: Happier than previously noted, in NAD Cardio: Tachycardic, regular rhythm, no murmurs Pulm: CTA b/l MSK: Well healing, 5 cm incisions vertical bilaterally on both sides of lumbar spine Assessment and Plan: 53 year old female here for follow up. S/p back surgery No active concerns for infection. Will follow up with NSG. 2. HTN Patient will keep log at home. Reinforced the importance of this as well as measuring heart rate daily. Previously had attributed this to anxiety/white coat syndrome. Will monitor home heart rates and f/u in 1 month. If elevated, consider increasing Metoprolol. 3. Low HDL/H/o DM2 Follow up LFTs, consider starting statin at next appointment if normal. Patient reports she will make optometry appointment. 4. Anxiety Continue to monitor * Naida Spencer MD - 01/08/2024 9:30 AM EST I have seen the patient and reviewed the resident's above history and I agree with the details as written. The assessment and plan were formulated in discussion with me and I agree with them as documented. Pertinent History: 53 yo woman with recent back surgery presents for follow up. Issues discussed : Back surgery- pain decreasing , yesterday had pus from one of the incisisons Hypertension - does not monitor BP at home Initially elevated at 150/107, repeat 140/82 Tachycardiaat 107 Patient states that her heart rate is always fast on her watch. Pertinent Exam: Healing incisions along lumbar spine No drainage noted One spot on left tender to touch with redness or warmth Eczematous rash around the area of the dressing Major issues addressed: S/P lumbar surgery Continue to monitor incision - if pus redevelops- use OTC antiobiotic ointment first Hypertension and tachycardia- Patient will monitor BP and pulse daily Check BMP,TSH Plan: Return in one month with home readings ? Need to increase Metoprolol dose documented in this encounter Miscellaneous Notes * Addendum Note - Naida Spencer MD - 01/08/2024 9:30 AM ESTAddended by: NAIDA SPENCER on: 01/09/2024 07:20 AM Modules accepted: Level of Service documented in this encounter Plan of Treatment Upcoming Encounters Date Type Department Care Team (Late st Contact Info) Description 09/05/2024 9:00 AM EDT Office Visit Internal Medicine at [address] [address] Gema Oliveira DO [facility] [place] [address] Scheduled Orders Name Type Priority Associated Diagnoses Orde r Schedule CBC (with Diff) Lab Routine Tachycardia Expected: 01/08/2024 (Approximate), Expires: 07/09/2024 Comprehensive metabolic panel (non-fasting) Lab Routine Tachycardia Expected: 01/08/2024 (Approximate), Expires: 07/09/2024 [facility] [place] Lab Routine Tachycardia Expected: 01/08/2024, Expires: 07/09/2024 documented as of this encounter Visit Diagnoses Diagnosis Hypertension, unspecified type Tachycardia Tachycardia, unspecified documented in this encounter Care Teams Airframe Technician Relationship Specialty Start Date End Date Gema Oliveira DO [facility] [place] [address] PCP - General General Internal Medicine 05/17/23 documented as of this encounter
--- OUTSIDE RECORDS SUMMARY | 2024-07-12 00:26 | XMS_ITS | Encounter Summary ---
Author Organization [facility] [place] [address] Care Team Providers Care Portable Track Line Marker Name Role Phone Gema Oliveira DO Primary Care Provider +1- [phone] Reason for Visit * Reason Onset Date Comments Shortness of Breath 04/22/2024 Encounter Details Date Type Department Care Team (Late st Contact Info) Description 04/22/2024 Nurse [place]riage [place] [phone] Monet Gutierrez, RN Shortness of Breath Social History Tobacco Use Types Packs/Day Years [...] place to sleep or slept in a fdc (including now)? Patient refused 02/10/2023 IPV Inpatient [...] encounter Miscellaneous Notes * Telephone Encounter - Monet Gutierrez RN - 04/22/2024 10:21 AM EDT Reason for Call: Shortness of Breath Brief Health History (Onset, Location, Duration, Characteristics, Aggravating Factors, Relieving Factors/Radiation,Timing, and Severity): Live call Spoke with patient who reports she recently went on a cruise with her sister, and a day or two after getting back started feeling sick, run down, chills, wheezing at times. Covid negative. Using nebulizer and inhaler, not getting better. Patient is speaking in complete sentences without breaks for breaths or coughs. Denies chest pain, dizziness, coughing blood, palpitations, nausea, vomiting, diarrhea, fever, any other symptoms at this time. Worsening Symptoms: Emphasized symptoms that require emergent/urgent care according to EPIC protocol utilized or other documented decision support tool. Patient able to teach back worsening symptoms and action to take. Patient/Caregiver demonstrates understanding via teach back: Yes Disposition: Go to Office Now Scheduled next available OV, patient agrees with plan. Reason for Disposition MILD difficulty breathing (e.g., minimal/no SOB at rest, SOB with walking, pulse < 100) of new-onset or worse than normal Protocols used: Breathing [id number] documented in this encounter Plan of Treatment Upcoming Encounters Date Type Department Care Team (Late st Contact Info) Description 09/05/2024 9:00 AM EDT Office Visit Internal Medicine at [address] [address] Gema Oliveira DO [facility] [place] [address] documented as of this encounter Visit Diagnoses Not on filedocumented in this encounter Care Teams Portable Track Line Marker Relationship Specialty Start Date End Date Gema Oliveira DO [facility] [place] [address] PCP - General General Internal Medicine 05/17/23 documented as of this encounter
--- OUTSIDE RECORDS SUMMARY | 2024-07-12 00:26 | XMS_ITS | Encounter Summary ---
Author Organization [facility] Address [facility] [place] [address] Care Team Providers Care Cytogeneticist Name Role Phone Gema Oliveira DO Primary Care Provider +1- [phone] Reason for Referral * Diagnostic Test (Routine) - Closed Specialty Diagnoses / Procedures Referred By Contac t Referred To Contact Radiology Diagnoses Spondylolisthesis of lumbar region Procedures MRI Lumbar Spine wo Contrast (Generic) Bret Nicholson MD [facility] [place] [address] [facility] [address] [address] Referral ID Status Reason Start Date Expiration Date V isits Requested Visits Authorized [id number] Closed Specialty Service Requested 06/07/2024 12/08/2025 1 1 Reason for Visit * Diagnostic Test (Routine) - Closed Specialty Diagnoses / Procedures Referred By Contac t Referred To Contact Radiology Diagnoses Spondylolisthesis of lumbar region Procedures MRI Lumbar Spine wo Contrast (Generic) Bret Nicholson MD [facility] [place] [address] [facility] Mri [address] [place] [phone] Referral ID Status Reason Start Date Expiration Date V isits Requested Visits Authorized [id number] Closed Specialty Service Requested 06/07/2024 12/08/2025 1 1 Encounter Details Date Type Department Care Team (Latest Contact Info) Description 06/18/2024 7:16 AM EDT - 06/18/2024 11:59 PM EDT Hospital Encounter MRI at [address] [phone] Bret Nicholson MD [facility] [place] [address] Spondylolisthesis of lumbar region Discharge Disposition: Home [...] place to sleep or slept in a senior living (including now)? Patient refused 02/10/2023 DH IPV [...] FOR NAUSEA 60 tablet 06/13/2024 HYDROcodone-acetamino phen ([place]) 7.5-325 mg tablet Take 1 tablet by mouth every 6 hours as needed for Pain. 40 tablet 06/12/2024 lisinopriL (Zestril) 40 mg tabletIndications:Ess ential hypertension Take 1 tablet by mouth daily. 90 tablet 3 06/04/2024 blood sugar diagnostic strips StripIndications:Type 2 diabetes mellitus without complication, unspecified whether jail insulin use 1 strip by Other route [...] 2 diabetes mellitus without complication, unspecified whether jail insulin use 1 kit by [facility]Non-Drug; Combo Route) route 4 times daily. Prefers [...] Pad, Liner, Disp Pad 1 each by [facility]Non-Drug; Combo Route) route every 4 hours as needed (for incontinence). 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 120 mL 04/22/2024 06/19/2024 documented as of this encounter Plan of Treatment Upcoming Encounters Date Type Department Care Team (Late st Contact Info) Description 09/05/2024 9:00 AM EDT Office Visit Internal Medicine at [address] [address] Gema Oliveira, [facility] [place], [place] [id number] documented as of this encounter Procedures Procedure Name Priority Date/Time Associated Diagnosis Comments MRI LUMBAR SPINE WITHOUT CONTRAST Routine 06/18/2024 8:20 AM EDT Spondylolisthesis of lumbar region documented in this encounter Results * MRI Lumbar Spine wo Contrast (Generic) (06/18/2024 8:20 AM EDT) WORKSTATION ID [id number] RAD Anatomical Region Laterality Modality L-spine Magnetic [...] in context of the clinical situation (Reference- Donyak Et Al, Spine 2001). Findings: (Prevalence in [...] who have questions please contact the health cattle care worker that requested your imaging first. ? Electronically signed by: Khai Friedman DO, [facility] ??([phone]), at 06/18/2024 9:45 AM Narrative 06/18/2024 9:45 [...] paraspinal soft tissue pathology noted. Procedure Note LisaKhai enriquez, DO - 06/18/2024 EXAMINATION: MRI LUMBAR SPINE [...] noted, left of midline at the upper [id number]. No additional interval marrow lesions or paraspinal [...] in context of the clinical situation (Reference- Donyak Et Al, [id number]). Findings: (Prevalence in patients without low back [...] patients who have questions please contactthe health cattle care worker that requested your imaging first. Bret Nicholson MD IMG MRI ORDERABLES documented in this encounter Visit Diagnoses Diagnosis Spondylolisthesis of lumbar region Acquired spondylolisthesis documented in this encounter Care Teams Cytogeneticist Relationship Specialty Start Date End Date Gema Oliveira DO [facility] [place] [address] PCP - General General Internal Medicine 05/17/23 documented as of this encounter
--- OUTSIDE RECORDS SUMMARY | 2024-07-12 00:26 | XMS_ITS | Encounter Summary ---
Author Organization [facility] Address [facility] [place] [address] Care Team Providers Care Scrub Technician Name Role Phone Gema Oliveira DO Primary Care Provider +1- [phone] Encounter Details Date Type Department Care Team (Latest Contact Info) Description 01/17/2024 9:02 AM EST - 01/17/2024 11:59 PM [facility] XRay at [address] [phone] Bret Nicholson MD [facility] [place] [address] Spondylolisthesis at L4-L5 level Discharge Disposition: Home Social History Tobacco Use [...] Sig Dispensed Refills Start Date End Date dulaglutide (Trulicity) 0.75 mg/0.5 mL Pen Injector [...] 2 diabetes mellitus without complication, unspecified whether chcf insulin use 1 kit by [facility].(Non-Drug; Combo Route) route [...] Pad, Liner, Disp Pad 1 each by [facility].(Non-Drug; Combo Route) route every 4 hours as needed (for incontinence). 200 each 11 10/03/2019 ondansetron ODT (Zofran-ODT) 4 mg disintegrating tabletIndications:Darnell sea without vomiting DISSOLVE ONE TABLET ON THE TONGUE EVERY 8 HOURS NEEDED FOR NAUSEA 60 tablet 01/11/2024 02/14/2024 ipratropium-albuteroL (Duoneb) 0.5 mg-3 mg(2.5 mg base)/3 mL Solution for Nebulization INHALE THE CONTENTS OF 1 VIAL BY NEBULIZATION EVERY 4 HOURS NEEDED 180 mL 12/18/2023 04/17/2024 metoprolol succinate XL (Toprol-XL) 50 mg ER 24 hr tabletIndications:Hyp ertension, essential, benign Take 1 tablet by mouth daily. 30 tablet 12 11/06/2023 06/18/2024 metFORMIN (Glucophage) 1,000 mg tabletIndications:Typ e 2 diabetes mellitus without complication, without long-term current use of insulin Take 1 tablet by mouth daily. 1 tablet 08/14/2023 02/14/2024 omeprazole (PriLOSEC) [address] capsuleIndications:Ga stroesophageal reflux disease without esophagitis Take 1 capsule by mouth daily. 90 capsule 3 06/14/2023 06/16/2024 lisinopriL (Zestril) 40 mg tabletIndications:Ess ential hypertension TAKE ONE TABLET BY MOUTH EVERY DAY 90 tablet 3 05/16/2023 06/03/2024 blood sugar diagnostic strips StripIndications:Type 2 diabetes mellitus without complication, unspecified whether intermediate card tender insulin use 1 strip by Other route [...] AM EDT Office Visit Internal Medicine at [address] [place] [address] [address] Gema Oliveira, [facility] [place] [address] documented as of this encounter Procedures Procedure Name Priority Date/Time Associated Diagnosis Comments XR LUMBAR SPINE 2 OR 3 VIEWS Routine 01/17/2024 9:12 AM EST Spondylolisthesis at L4-L5 level documented in this encounter Results * XR Lumbar Spine 2 Or 3 Views (Generic) (01/17/2024 9:12 AM EST) Anatomical Region Laterality Modality L-spine N/A Digital Radiogra phy Impressions 01/17/2024 10:09 AM EST Status post L4-L5 posterior instrumented fusion. No evidence of complication. Thank you for letting us participate in the care of this patient. ??If you are a health care provider and have any questions regarding this report, please contact the number below. ??For patients who have questions please contact the health day care home mother that requested your imaging first. ? Electronically signed by: Rommel Hooker MD, [facility] ([phone]), at 01/17/2024 10:09 AM Narrative 01/17/2024 10:09 AM EST EXAMINATION: XR LUMBAR SPINE 2 OR 3 VIEWS (GENERIC) CLINICAL HISTORY: s/p L45 fusion M43.16, Spondylolisthesis, lumbar region TECHNIQUE: 2 views of the lumbar spine, 2 images COMPARISON: Radiographs of the lumbar spine 09/28/2023 FINDINGS: There are 5 lumbar type vertebral bodies. Status post posterior instrumented fusion L4-L5 with bilateral pedicle screws and rods. Hardware is intact. A disc spacer is present at L4-5. Normal alignment of the lumbar spine. No spondylolisthesis. Normal vertebral body heights. Unchanged mild disc degenerative changes at L5-S1. Procedure Note Rommel Hooker MD - 01/17/2024 EXAMINATION: XR LUMBAR SPINE 2 OR 3 VIEWS (GENERIC) CLINICAL HISTORY: s/p L45 fusion M43.16, Spondylolisthesis, lumbar region TECHNIQUE: 2 views of the lumbar spine, 2 images COMPARISON: Radiographs of the lumbar spine 09/28/2023 FINDINGS: There are 5 lumbar type vertebral bodies. Status post posteriorinstrumented fusion L4-L5 with bilateral pedicle screws and rods. Hardware is intact. Adisc spacer is present at L4-5. Normal alignment of the lumbar spine. No spondylolisthesis. Normal vertebral body heights. Unchanged mild disc degenerative changes at L5-S1. IMPRESSION Status post L4-L5 posterior instrumented fusion. No evidence ofcomplication. Thank you for letting us participate in the care of this patient. If youare a health care provider and have any questions regarding this report,please contact the number below. For patients who have questions please contactthe health day care home mother that requested your imaging first. Bret Nicholson MD IMG DX ORDERABLES documented in this encounter Visit Diagnoses Diagnosis Spondylolisthesis at L4-L5 level documented in this encounter Care Teams Scrub Technician Relationship Specialty Start Date End Date Gema Oliveira DO [facility] [place] [address] PCP - General General Internal Medicine 05/17/23 documented as of this encounter
--- OUTSIDE RECORDS SUMMARY | 2024-07-12 00:26 | XMS_ITS | Encounter Summary ---
Author Organization [facility] Address [facility] [place] [address] Care Team Providers Care Channeler Insole Name Role Phone Gema Oliveira DO Primary Care Provider +1- [phone] Reason for Referral * Diagnostic Test (Routine) - Closed Specialty Diagnoses / Procedures Referred By Contac t Referred To Contact Radiology Diagnoses Spondylolisthesis of lumbar region Procedures MRI Lumbar Spine wo Contrast (Generic) Bret Nicholson MD [facility] [place] [address] [facility] Mri [address] [place] [phone] Referral ID Status Reason Start Date Expiration Date V isits Requested Visits Authorized [id number] Closed Specialty Service Requested 06/07/2024 12/08/2025 1 1 Encounter Details Date Type Department Care Team (Latest Contact Info) Description 06/07/2024 Orders [place] [address] Bret Nicholson MD [facility] [place] [address] Spondylolisthesis of lumbar region Social History Tobacco [...] place to sleep or slept in a fpc (including now)? Patient refused 02/10/2023 DH IPV [...] AM EDT Office Visit Internal Medicine at [address] [address] Gema Oliveira, [facility] [place] [address] documented as of this encounter Results * XR Lumbar Spine 2 Or 3 Views (Generic) (06/19/2024 10:35 AM EDT) [employer] WORKSTATION ID [id number] RAD Anatomical Region Laterality Modality L-spine N/A [...] who have questions please contact the health primary health care nurse that requested your imaging first. [...] patients who have questions please contactthe health primary health care nurse that requested your imaging first. Electronically signed by: Tammi Sunshine MD, [facility]([phone]), at 06/19/2024 2:06 PM Bret Nicholson MD IMG DX ORDERABLES * MRI Lumbar Spine wo Contrast (Generic) (06/18/2024 8:20 AM EDT) [employer] Signature WORKSTATION ID [id number] DH RAD Anatomical Region Laterality Modality L-spine Magnetic [...] who have questions please contact the health primary health care nurse that requested your imaging first. ? Electronically signed by: Khai Friedman DO [facility] ??([phone]), at 06/18/2024 9:45 AM Narrative 06/18/2024 9:45 [...] soft tissue pathology noted. Procedure Note Khai Friedman, DO - 06/18/2024 EXAMINATION: MRI LUMBAR SPINE [...] noted, left of midline at the upper [id number]. No additional interval marrow lesions or paraspinal [...] the clinical situation (Reference- Jarvik Et Al, [id number]). Findings: (Prevalence in patients without low back [...] patients who have questions please contactthe health primary health care nurse that requested your imaging first. Electronically signed by: Khai Friedman DO, [facility]([phone]), at 06/18/2024 9:45 AM Bret Nicholson MD IMG MRI ORDERABLES documented in this encounter Visit Diagnoses Diagnosis Spondylolisthesis of lumbar region Acquired spondylolisthesis Spondylolisthesis of lumbar region Acquired spondylolisthesis Spondylolisthesis of lumbar region Acquired spondylolisthesis documented in this encounter Care Teams Channeler Insole Relationship Specialty Start Date End Date Gema Oliveira DO [facility] [place] [address] PCP - General General Internal Medicine 05/17/23 documented as of this encounter
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
--- OUTSIDE RECORDS SUMMARY | 2024-07-12 00:26 | XMS_ITS | Encounter Summary ---
Author Organization [facility] [place] [address] Care Team Providers Care Die Repairer Trimmer Dies Name Role Phone Gema Oliveira DO Primary Care Provider +1- [phone] Reason for Visit * Reason Onset Date Comments Appointment 06/06/2024 Encounter Details Date Type Department Care Team (Late st Contact Info) Description 06/06/2024 Telephone [place] [phone] Cherie Finnegan, RN Appointment Social History Tobacco Use Types Packs/Day Years [...] the money to buy more. Patient declined 03 / Within the past 12 months, t he [...] place to sleep or slept in a long-term (including now)? Patient refused 02/10/2023 IPV Inpatient [...] encounter Miscellaneous Notes * Telephone Encounter - Ladonna Valdez LNA - 06/10/2024 2:00 PM EDT PSC Scheduling Instructions Provider: Bret Nicholson MD Visit Type: OV, Appt Notes (copy entirely): OV, s/p L4-5 decompression instrumented fusion on 12/15/2023. Imaging appt needed?: Xray PSC to ask patient Screening Questions? No (DOES NOT APPLY TO XRAY) PSC to coordinate same day appt with Radiology? No (DOES NOT APPLY TO XRAY) Additional Info Needed: Schedule on/around Update this encounter when patient calls back. * Telephone Encounter - Cherie Finnegan RN - 06/06/2024 11:14 AM EDT Spoke to patient who reports return of pre-surgical symptoms. She was doing better since surgery until about a week ago when her lower back pain returned. She denies doing anything different when it started. She denies radiating pain. Pain level is constant but relieved somewhat by leaning forward.7/10 down to 5/10 with ibuprofen. She is requesting a follow up visit. documented in this encounter Plan of Treatment Upcoming Encounters Date Type Department Care Team (Late st Contact Info) Description 09/05/2024 9:00 AM EDT Office Visit Internal Medicine at [place] [id number] Gema Oliveira DO [facility] [place] [address] documented as of this encounter Visit Diagnoses Not on filedocumented in this encounter Care Teams Die Repairer Trimmer Dies Relationship Specialty Start Date End Date Gema Oliveira DO [facility] [place] [address] PCP - General General Internal Medicine 05/17/23 documented as of this encounter
--- OUTSIDE RECORDS SUMMARY | 2024-07-12 00:26 | XMS_ITS | Encounter Summary ---
Author Organization [facility] Address [facility] [place] [address] Care Team Providers Care Foreign Policy Officer Name Role Phone Gema Oliveira DO Primary Care Provider +1- [phone] Reason for Visit * Reason Onset Date Comments Medication Refill 05/01/2024 Encounter Details Date Type Department Care Team (Late st Contact Info) Description 05/01/2024 Refill Internal Medicine at [address] [address] Gema Oliveira, DO [facility] [place] [address] Nicotine dependence, cigarettes, uncomplicated Social History Tobacco [...] * Telephone Encounter - Loninabil Bridgette R, [facility] - 05/01/2024 4:53 PM EDT Prescription Renewal Request Name: Tracie Layton : 1970 Prescription(s) Requested: Requested Prescriptions Refused Prescriptions Disp Refills varenicline (Chantix) 1 mg tablet 60 tablet 5 Sig: Take 1 tablet by mouth 2 times daily (with meals). This medication should be taken in the middle of your largest meal(s) with a full glass of water. DO NOT TAKE ON AN EMPTY STOMACH. Indications:stop smoking Refused By: BRIDGETTE QUINONEZ Reason for Refusal: Patient no longer taking this medication Discontinued by: Gema Oliveira DO on 01/08/2024 09:23 Status of request: Refused Allergies Allergen Reactions Bactrim [Sulfamethoxazole-Trimethoprim] Anaphylaxis Trimethoprim Anaphylaxis Adhesive Tape Rash Aleve [Naproxen Sodium] Rash Per neuro team, patient has tolerated ketorolac in the past Keflex [Cephalexin] Other (See Comments) Racing heart Meloxicam Nausea Only Amlodipine Nausea And Vomiting AYAN Canales 05/01/24 4:55 PM documented in this encounter Plan of Treatment Upcoming Encounters Date Type Department Care Team (Late st Contact Info) Description 09/05/2024 9:00 AM EDT Office [place] [address] Gema Oliveira DO [facility] [place] [address] documented as of this encounter Visit Diagnoses Diagnosis Nicotine dependence, cigarettes, uncomplicated documented in this encounter Care Teams Foreign Policy Officer Relationship Specialty Start Date End Date Gema Oliveira DO [facility] [place] [place] [address] PCP - General General Internal Medicine 05/17/23 documented as of this encounter
--- OUTSIDE RECORDS SUMMARY | 2024-07-12 00:26 | XMS_ITS | Encounter Summary ---
Author Organization [facility] [place] [address] Care Team Providers Care Career Development Specialist Name Role Phone Gema Oliveira DO Primary Care Provider +1- [phone] Encounter Details Date Type Department Care Team (Late st Contact Info) Description 12/18/2023 [place] [phone] Gema Colvin, RN Social History Tobacco Use Types Packs/Day Years [...] a long-term (including now)? Patient refused 02/10/2023 DH IPV [...] encounter Miscellaneous Notes * Telephone Encounter - Gema Colvin RN - 12/18/2023 8:36 AM EST ----- Message from HERNANDEZ Negrete sent at 12/16/2023 10:10 AM EST ----- Procedure: MIS L4-5 fusion Incision: Dermabond prineo mesh DC Meds: oxy 5-10 mg q 4 hrs prn, flexeril 10 mg q 8 hrs prn Follow Up: 4-6 weeks NB w XR lumbar prior Patient tested + for RSV while inpatient advised to notify PCP within 1 week of DC documented in this encounter Plan of Treatment Upcoming Encounters Date Type Department Care Team (Late st Contact Info) Description 09/05/2024 9:00 AM EDT Office Visit Internal Medicine at [address] [address] Gema Oliveira DO [facility] [address] [facility] [address] documented as of this encounter Visit Diagnoses Not on filedocumented in this encounter Additional Health Concerns Infection Onset Date Last Indicated Resolved Time RSV 12/15/2023 12/15/2023 12/25/2023 8:09 PM EST documented as of this encounter Care Teams Career Development Specialist Relationship Specialty Start Date End Date Gema Oliveira DO [facility] [address] [place] [address] PCP - General General Internal Medicine 05/17/23 documented as of this encounter
--- OUTSIDE RECORDS SUMMARY | 2024-07-12 00:26 | XMS_ITS | Encounter Summary ---
Author Organization [facility] Address [facility] [place] [address] Care Team Providers Care Manager Search Engine Name Role Phone Gema Oliveira DO Primary Care Provider +1- [phone] Encounter Details Date Type Department Care Team (Late st Contact Info) Description 03/12/2024 [place] [phone] Bret Nicholson MD [facility] [place] [address] Social History Tobacco Use Types Packs/Day Years [...] a fpc (including now)? Patient refused 02/10/2023 IPV Inpatient [...] Notes * Telephone Encounter - Ladonna Valdez MA - 03/12/2024 10:17 AM EDT Confirmed appointment with patient. Appointment scheduled 03/13 @ 11:20 [facility] XR Prior documented in this encounter Plan of Treatment Upcoming Encounters Date Type Department Care Team (Late st Contact Info) Description 09/05/2024 9:00 AM EDT Office Visit Internal Medicine at [address] [address] Gema Oliveira, [facility] [place] [address] documented as of this encounter Visit Diagnoses Not on filedocumented in this encounter Care Teams Manager Search Engine Relationship Specialty Start Date End Date Gema Oliveira DO [facility] [place] [address] PCP - General General Internal Medicine 05/17/23 documented as of this encounter
--- OUTSIDE RECORDS SUMMARY | 2024-07-12 00:26 | XMS_ITS | Encounter Summary ---
Author Organization [facility] Address [facility] [place] [address] Care Team Providers Care Foundry Superintendant Name Role Phone Gema Oliveira DO Primary Care Provider +1- [phone] Encounter Details Date Type Department Care Team (Latest Contact Info) Description 01/16/2024 Travel Social History Tobacco Use Types Packs/Day [...] AM EDT Office Visit Internal Medicine at [address] [address] Gema Oliveira DO [facility] [address] [facility] [address] documented as of this encounter Visit Diagnoses Not on filedocumented in this encounter Care Teams Foundry Superintendant Relationship Specialty Start Date End Date Gema Oliveira DO [facility] [place] [address] PCP - General General Internal Medicine 05/17/23 documented as of this encounter
--- OUTSIDE RECORDS SUMMARY | 2024-07-12 00:26 | XMS_ITS | Encounter Summary ---
Author Organization [facility] Address [facility] [place] [address] Care Team Providers Care Frothing Machine Operator Name Role Phone Gema Oliveira DO Primary Care Provider +1- [phone] Reason for Visit * Reason Onset Date Comments Medication Refill 01/09/2024 Encounter Details Date Type Department Care Team (Late st Contact Info) Description 01/09/2024 Refill Internal Medicine at [address] [id number] Gema Oliveira, DO [facility] GENERAL [place] [address] Nausea without vomiting Social History Tobacco Use Types Packs/Day Years [...] place to sleep or slept in a mcc (including now)? Patient refused 02/10/2023 IPV Inpatient [...] encounter Miscellaneous Notes * Telephone Encounter - Bridgette Sims FILLING LAYER UP - 01/11/2024 11:30 AM EST Prescription Renewal Request Name: Tracie Layton : 1970 Prescription(s) Requested: Requested Prescriptions Pending Prescriptions Disp Refills ondansetron ODT (Zofran-ODT) 4 mg disintegrating tablet 60 tablet 0 Sig: DISSOLVE ONE TABLET ON THE TONGUE EVERY 8 HOURS NEEDED FOR NAUSEA Date of Encounter last in This Dept (If need an appointment send to secretaries to schedule): Naida Flores MD (Physician) / Gema Oliveira DO (Resident) Geriatric Medicine Encounter Date: 01/08/2024 Next Encounter in This Dept: 02/06/2024 Date of Last Refill (for each medication): 12/04/2023 Medication category requirements (labs etc): n/a Status of request: Pended Allergies Allergen Reactions Bactrim [Sulfamethoxazole-Trimethoprim] Anaphylaxis Trimethoprim Anaphylaxis Adhesive Tape Rash Aleve [Naproxen Sodium] Rash Per neuro team, patient has tolerated ketorolac in the past Keflex [Cephalexin] Other (See Comments) Racing heart Meloxicam Nausea Only Amlodipine Nausea And Vomiting Bridgette Sims CMA 01/11/24 11:30 AM documented in this encounter Plan of Treatment Upcoming Encounters Date Type Department Care Team (Late st Contact Info) Description 09/05/2024 9:00 AM EDT Office Visit Internal Medicine at [place] [id number] Gema Oliveira DO [facility] GENERAL [place] [address] documented as of this encounter Visit Diagnoses Diagnosis Nausea without vomiting documented in this encounter Care Teams Frothing Machine Operator Relationship Specialty Start Date End Date Gema Oliveira DO [facility] [place] [address] PCP - General General Internal Medicine 05/17/23 documented as of this encounter
--- OUTSIDE RECORDS SUMMARY | 2024-07-12 00:26 | XMS_ITS | Encounter Summary ---
Author Organization [facility] Address [facility] [place] [address] Care Team Providers Care Curriculum Counselor Name Role Phone Gema Oliveira DO Primary Care Provider +1- [phone] Reason for Visit * Reason Comments Medication Refill Encounter Details Date Type Department Care Team (Late st Contact Info) Description 04/17/2024 [place] [address] Eufemia Ballard PA [facility] [place] [address] Social History Tobacco Use Types Packs/Day Years [...] place to sleep or slept in a penitentiary (including now)? Patient refused 02/10/2023 IPV Inpatient [...] AM EDT Office Visit Internal Medicine at [address] [address] Gema Oliveira DO [facility] [address] [address] documented as of this encounter Visit Diagnoses Not on filedocumented in this encounter Care Teams Curriculum Counselor Relationship Specialty Start Date End Date Gema Oliveira DO [facility] [address] [address] PCP - General General Internal Medicine 05/17/23 documented as of this encounter
--- OUTSIDE RECORDS SUMMARY | 2024-07-12 00:26 | XMS_ITS | Encounter Summary ---
Author Organization [facility] Address [facility] [place] [address] Care Team Providers Care Multifold Operator Name Role Phone Gema Oliveira DO Primary Care Provider +1- [phone] Encounter Details Date Type Department Care Team (Latest Contact Info) Description 01/17/2024 9:20 AM EST Office Visit Neurosurgery at [address] [address] Bret Nicholson MD [facility] [place] [address] Postoperative visit; Spondylolisthesis of lumbar region Social [...] Sign Reading Time Taken Comments Blood Pressure 142/92 01/17/2024 9:18 AM EST Pulse 119 01/17/2024 9:18 AM EST Temperature 36.1 ??C (97 ??F) 01/17/2024 9:18 AM EST Respiratory Rate - - Oxygen Saturation 94% 01/17/2024 9:18 AM EST Inhaled Oxygen Concentration - - Weight 119.7 kg (264 lb) 01/17/2024 9:18 AM EST Height 172.7 cm (5' 8) 01/17/2024 9:18 AM EST Body Mass Index 40.14 01/17/2024 9:18 AM EST documented in this encounter Progress Notes * Bret Nicholson MD - 01/17/2024 9:20 AM EST Tracie returns for follow-up today. She is 1 month out from her L4-5 decompression and instrumented fusion. She has some occasional numbness along the anterior aspect of both thighs which appears without any clear inciting event and resolve spontaneously. She has noted that on 2 occasions when she ar ises quickly from a chair she has a sharp shooting pain in the area of the left hip that goes down the back of the thigh. That pain lasts a few seconds and resolves spontaneously. Lumbar x-rays today are satisfactory. Impression/plan: She is making great progress from a clinical perspective and seems pleased with her improvement to date. We will see her again in 2 months with repeat x-rays. Bret Nicholson MD, FAANS Online Marketer of Neurosurgery [facility] [email or web address] documented in this encounter Plan of Treatment Upcoming Encounters Date Type Department Care Team (Late st Contact Info) Description 09/05/2024 9:00 AM EDT Office [place] [address] Gema Oliveira, [facility] GENERAL INTERNAL MEDICINE [place] [id number] documented as of this encounter Results * XR Lumbar Spine 2 Or 3 Views (Generic) (03/13/2024 10:31 AM EDT) WORKSTATION ID [id number] RAD Anatomical Region Laterality Modality L-spine N/A [...] who have questions please contact the health school childcare attendant that requested your imaging first. ? Narrative 03/13/2024 3:12 PM EDT EXAMINATION: XR [...] patients who have questions please contactthe health school childcare attendant that requested your imaging first. Bret Nicholson MD IMG DX ORDERABLES documented in this encounter Visit Diagnoses Diagnosis Postoperative visit Spondylolisthesis of lumbar region Acquired spondylolisthesis Postoperative visit Spondylolisthesis of lumbar region Acquired spondylolisthesis documented in this encounter Care Teams Multifold Operator Relationship Specialty Start Date End Date Gema Oliveira DO [facility] DR GENERAL [place] [address] PCP - General General Internal Medicine 05/17/23 documented as of this encounter
--- OUTSIDE RECORDS SUMMARY | 2024-07-12 00:26 | XMS_ITS | Encounter Summary ---
Author Organization [facility] Address [facility] [place] [address] Care Team Providers Care Medical Writer Name Role Phone Gema Oliveira DO Primary Care Provider +1- [phone] Reason for Visit * Reason Onset Date Comments Medication Refill 06/10/2024 Encounter Details Date Type Department Care Team (Late st Contact Info) Description 06/10/2024 Refill Internal Medicine at [address] [phone] Gema Oliveira, DO [facility] GENERAL INTERNAL [place] [address] Nausea without vomiting Social History Tobacco Use [...] Miscellaneous Notes * Telephone Encounter - Bridgette Quinonez CCMA - 06/11/2024 4:36 PM EDT Prescription Renewal Request Name: Tarcie Layton : 1970 Prescription(s) Requested: Requested Prescriptions Pending Prescriptions Disp Refills ondansetron ODT (Zofran-ODT) 4 mg disintegrating tablet 60 tablet 0 Sig: DISSOLVE 1 TABLET ON THE TONGUE EVERY 8 HOURS NEEDED FOR NAUSEA Date of Encounter last in This Dept (If need an appointment send to secretaries to schedule): 04/22/24 Next Encounter in This Dept: 06/18/2024 Date of Last Refill (for each medication): 04/17/24 60x0 Medication category requirements (labs etc): n/a Status of request: Pended Allergies Allergen Reactions Bactrim [Sulfamethoxazole-Trimethoprim] Anaphylaxis Trimethoprim Anaphylaxis Adhesive Tape Rash Aleve [Naproxen Sodium] Rash Per neuro team, patient has tolerated ketorolac in the past Keflex [Cephalexin] Other (See Comments) Racing heart Meloxicam Nausea Only Amlodipine Nausea And Vomiting AYAN Canales 06/11/24 4:36 PM documented in this encounter Plan of Treatment Upcoming Encounters Date Type Department Care Team (Late st Contact Info) Description 09/05/2024 9:00 AM EDT Office Visit Internal Medicine at [place] [phone] Gema Oliveira DO [facility] GENERAL INTERNAL [place] [address] documented as of this encounter Visit Diagnoses Diagnosis Nausea without vomiting documented in this encounter Care Teams Medical Writer Relationship Specialty Start Date End Date Gema Oliveira DO [facility] [address] [place] [address] PCP - General General Internal Medicine 05/17/23 documented as of this encounter
--- OUTSIDE RECORDS SUMMARY | 2024-07-12 00:26 | XMS_ITS | Encounter Summary ---
Author Organization [facility] Address [facility] [place] [address] Care Team Providers Care Stripper Machine Operator Name Role Phone Gema Oliveira DO Primary Care Provider +1- [phone] Encounter Details Date Type Department Care Team (Latest Contact Info) Description 01/02/2024 Travel Social History Tobacco Use Types Packs/Day [...] place to sleep or slept in a longterm (including now)? Patient refused 02/10/2023 IPV Inpatient [...] AM EDT Office Visit Internal Medicine at [address] [address] Gema Oliveira DO [facility] [address] [address] documented as of this encounter Visit Diagnoses Not on filedocumented in this encounter Care Teams Stripper Machine Operator Relationship Specialty Start Date End Date Gema Oliveira DO [facility] [place] [address] PCP - General General Internal Medicine 05/17/23 documented as of this encounter
--- OUTSIDE RECORDS SUMMARY | 2024-07-12 00:26 | XMS_ITS | Encounter Summary ---
Author Organization [facility] Address [facility] [place] [address] Care Team Providers Care Industrial Servicer Name Role Phone Gema Oliveira DO Primary Care Provider +1- [phone] Encounter Details Date Type Department Care Team (Latest Contact Info) Description 03/12/2024 Travel Social History Tobacco Use Types Packs/Day [...] place to sleep or slept in a half-way (including now)? Patient refused 02/10/2023 IPV Inpatient [...] AM EDT Office Visit Internal Medicine at [address] [facility] [address] [address] documented as of this encounter Visit Diagnoses Not on filedocumented in this encounter Care Teams Industrial Servicer Relationship Specialty Start Date End Date Gema Oliveira DO [facility] [place] [address] PCP - General General Internal Medicine 05/17/23 documented as of this encounter
--- OUTSIDE RECORDS SUMMARY | 2024-07-12 00:26 | XMS_ITS | Encounter Summary ---
Author Organization [facility] Address [facility] [place] [address] Care Team Providers Care Comprehensive Advisor Name Role Phone Gema Oliveira DO Primary Care Provider +1- [phone] Encounter Details Date Type Department Care Team (Late st Contact Info) Description 06/12/2024 Orders [place] [address] Bret Nicholson MD [facility] [place] [address] Social History Tobacco Use Types Packs/Day Years [...] AM EDT Office Visit Internal Medicine at [address] [address] Gema Oliveira DO [facility] [address] [address] documented as of this encounter Visit Diagnoses Not on filedocumented in this encounter Care Teams Comprehensive Advisor Relationship Specialty Start Date End Date Gema Oliveira DO [facility] [address] [place] [address] PCP - General General Internal Medicine 05/17/23 documented as of this encounter
--- OUTSIDE RECORDS SUMMARY | 2024-07-12 00:26 | XMS_ITS | Encounter Summary ---
Author Organization [facility] [place] [address] Care Team Providers Care Head Shipper Name Role Phone Gema Oliveira DO Primary Care Provider +1- [phone] Encounter Details Date Type Department Care Team (Late st Contact Info) Description 06/03/2024 Telephone [place] [phone] Hellen Garzon, RN Social History Tobacco Use Types Packs/Day [...] encounter Miscellaneous Notes * Telephone Encounter - Hellen Garzon RN - 06/03/2024 8:54 AM EDT Opened in error documented in this encounter Plan of Treatment Upcoming Encounters Date Type Department Care Team (Late st Contact Info) Description 09/05/2024 9:00 AM EDT Office [place] [address] Gema Oliveira DO [facility] [place] [address] documented as of this encounter Visit Diagnoses Not on filedocumented in this encounter Care Teams Head Shipper Relationship Specialty Start Date End Date Gema Oliveira DO [facility] [place] [address] PCP - General General Internal Medicine 05/17/23 documented as of this encounter
--- OUTSIDE RECORDS SUMMARY | 2024-07-12 00:26 | XMS_ITS | Encounter Summary ---
Author Organization [facility] [place] [address] Care Team Providers Care Finishing Wire Sawyer Name Role Phone Gema Oliveira DO Primary Care Provider +1- [phone] Reason for Visit * Reason Comments Medication Refill Encounter Details Date Type Department Care Team (Late st Contact Info) Description 04/17/2024 Refill Internal Medicine at [address] [address] Gema Oliveira, DO [facility] GENERAL [place] [address] Nausea without vomiting Social History Tobacco Use [...] encounter Miscellaneous Notes * Telephone Encounter - Britt Wayne CMA - 04/17/2024 11:58 AM EDT Prescription Renewal Request Name: Tracie Palm Macrina : 1970 Prescription(s) Requested: Requested Prescriptions Pending Prescriptions Disp Refills ondansetron ODT (Zofran-ODT) 4 mg disintegrating tablet [Pharmacy Med Name: ONDANSETRON ODT 4 MG TABLET] 60 tablet 0 Sig: DISSOLVE 1 TABLET ON THE TONGUE EVERY 8 HOURS NEEDED FOR NAUSEA Date of Encounter last in This Dept (If need an appointment send to secretaries to schedule): 01/08/24 Next Encounter in This Dept: Visit date not found Date of Last Refill (for each medication): 02/15/24 Medication category requirements (labs etc): n/a Status of request: Pended Allergies Allergen Reactions Bactrim [Sulfamethoxazole-Trimethoprim] Anaphylaxis Trimethoprim Anaphylaxis Adhesive Tape Rash Aleve [Naproxen Sodium] Rash Per neuro team, patient has tolerated ketorolac in the past Keflex [Cephalexin] Other (See Comments) Racing heart Meloxicam Nausea Only Amlodipine Nausea And Vomiting Britt Wayne CMA 04/17/24 11:59 AM documented in this encounter Plan of Treatment Upcoming Encounters Date Type Department Care Team (Late st Contact Info) Description 09/05/2024 9:00 AM EDT Office Visit Internal Medicine at [place] [phone] Gema Oliveira DO [facility] GENERAL [place] [address] documented as of this encounter Visit Diagnoses Diagnosis Nausea without vomiting documented in this encounter Care Teams Finishing Wire Sawyer Relationship Specialty Start Date End Date Gema Oliveira DO [facility] [place] [address] PCP - General General Internal Medicine 05/17/23 documented as of this encounter
--- OUTSIDE RECORDS SUMMARY | 2024-07-12 00:26 | XMS_ITS | Encounter Summary ---
Author Organization [facility] Address [facility] [place] [address] Care Team Providers Care Assistant Program Director Name Role Phone Gema Oliveira DO Primary Care Provider +1- [phone] Encounter Details Date Type Department Care Team (Late st Contact Info) Description 01/15/2024 Telephone [place] [id number] Bret Nicholson MD [facility] [place] [address] Social History Tobacco Use Types Packs/Day Years [...] Telephone Encounter - Ladonna Valdez MA - 01/15/2024 2:28 PM EST Confirmed appointment with [facility] on Wednesday 02/14 @ 9:20. Patient informed of XR Prior. documented in this encounter Plan of Treatment Upcoming Encounters Date Type Department Care Team (Late st Contact Info) Description 09/05/2024 9:00 AM EDT Office Visit Internal Medicine at [facility] [address] [place] [address] Gema Oliveira, [facility] GENERAL [place] [address] documented as of this encounter Visit Diagnoses Not on filedocumented in this encounter Care Teams Assistant Program Director Relationship Specialty Start Date End Date Gema Oliveira DO [facility] GENERAL INTER[place] [address] PCP - General General Internal Medicine 05/17/23 documented as of this encounter
--- OUTSIDE RECORDS SUMMARY | 2024-07-12 00:26 | XMS_ITS | Encounter Summary ---
Author Organization [facility] Address [facility] [place] [address] Care Team Providers Care Pheresis Nurse Name Role Phone Gema Oliveira DO Primary Care Provider +1- [phone] Reason for Visit * Reason Onset Date Comments Medication Refill 04/16/2024 Encounter Details Date Type Department Care Team (Late st Contact Info) Description 04/16/2024 Refill Internal Medicine at [address] [phone] Gema Oliveira, DO [facility] GENERAL [place] [address] Nausea without vomiting Social History Tobacco Use [...] place to sleep or slept in a custodial (including now)? Patient refused 02/10/2023 DH IPV [...] encounter Miscellaneous Notes * Telephone Encounter - Malaika Piedra CMA - 04/18/2024 1:33 PM EDT Prescription Renewal Request Name: Tracie Layton : 1970 Prescription(s) Requested: Requested Prescriptions Refused Prescriptions Disp Refills ipratropium-albuteroL (Duoneb) 0.5 mg-3 mg(2.5 mg base)/3 mL Solution for Nebulization 180 mL 0 Sig: INHALE THE CONTENTS OF 1 VIAL BY NEBULIZATION EVERY 4 HOURS NEEDED ondansetron ODT (Zofran-ODT) 4 mg disintegrating tablet 60 tablet 0 Sig: DISSOLVE ONE TABLET ON THE TONGUE EVERY 8 HOURS NEEDED FOR NAUSEA Status of request: Refused Scripts have been sent to pharmacy as of 04/17/24. Allergies Allergen Reactions Bactrim [Sulfamethoxazole-Trimethoprim] Anaphylaxis Trimethoprim Anaphylaxis Adhesive Tape Rash Aleve [Naproxen Sodium] Rash Per neuro team, patient has tolerated ketorolac in the past Keflex [Cephalexin] Other (See Comments) Racing heart Meloxicam Nausea Only Amlodipine Nausea And Vomiting Malaika Piedra CMA 04/18/24 1:33 PM documented in this encounter Plan of Treatment Upcoming Encounters Date Type Department Care Team (Late st Contact Info) Description 09/05/2024 9:00 AM EDT Office Visit Internal Medicine at [address] [address] Gema Oliveira DO [facility] [address] [place] [address] documented as of this encounter Visit Diagnoses Diagnosis Nausea without vomiting documented in this encounter Care Teams Pheresis Nurse Relationship Specialty Start Date End Date Gema Oliveira DO [facility] [place] [address] PCP - General General Internal Medicine 05/17/23 documented as of this encounter
--- OUTSIDE RECORDS SUMMARY | 2024-07-12 00:26 | XMS_ITS | Encounter Summary ---
Author Organization [facility] Address [facility] [place] [address] Care Team Providers Care Lining Feller Name Role Phone Gema Oliveira DO Primary Care Provider +1- [phone] Reason for Visit * Reason Onset Date Comments Medication Refill 02/14/2024 Encounter Details Date Type Department Care Team (Late st Contact Info) Description 02/14/2024 Refill Internal Medicine at [address] [phone] Gema Oliveira, DO [facility] [place] [address] Nausea without vomiting Social History Tobacco Use [...] place to sleep or slept in a prison (including now)? Patient refused 02/10/2023 IPV Inpatient [...] encounter Miscellaneous Notes * Telephone Encounter - Marimar Hoffman RN - 02/15/2024 10:44 AM EDT Prescription Renewal Request Name: Tracie Layton : 1970 Prescription(s) Requested: Requested Prescriptions Pending Prescriptions Disp Refills ondansetron ODT (Zofran-ODT) 4 mg disintegrating tablet 60 tablet 0 Sig: DISSOLVE ONE TABLET ON THE TONGUE EVERY 8 HOURS NEEDED FOR NAUSEA Date of Encounter last in This Dept (If need an appointment send to secretaries to schedule): 01/08/2024 Gema Oliveira/Naida Flores Next Encounter in This Dept: not scheduled Date of Last Refill (for each medication): 01/11/2024 60:0 Medication category requirements (labs etc): n/a Status of request: Pended Allergies Allergen Reactions Bactrim [Sulfamethoxazole-Trimethoprim] Anaphylaxis Trimethoprim Anaphylaxis Adhesive Tape Rash Aleve [Naproxen Sodium] Rash Per neuro team, patient has tolerated ketorolac in the past Keflex [Cephalexin] Other (See Comments) Racing heart Meloxicam Nausea Only Amlodipine Nausea And Vomiting Marimar Hoffman, RN 02/15/24 10:44 AM documented in this encounter Plan of Treatment Upcoming Encounters Date Type Department Care Team (Late st Contact Info) Description 09/05/2024 9:00 AM EDT Office Visit Internal Medicine at [place] [phone] Gema Oliveira DO [facility] [place] [address] documented as of this encounter Visit Diagnoses Diagnosis Nausea without vomiting documented in this encounter Care Teams Lining Feller Relationship Specialty Start Date End Date Gema Oliveira DO [facility] [place] [address] PCP - General General Internal Medicine 05/17/23 documented as of this encounter
--- OUTSIDE RECORDS SUMMARY | 2024-07-12 00:26 | XMS_ITS | Encounter Summary ---
Author Organization [facility] Address [facility] [place] [address] Care Team Providers Care Cardiac Rn Name Role Phone Gema Oliveira DO Primary Care Provider [phone]- [phone] Reason for Visit * Reason Comments Wheezing Encounter Details Date Type Department Care Team (Late st Contact Info) Description 04/22/2024 1:20 PM EDT Office Visit Internal Medicine at [address] [address] Martínez Cason MD [facility], [place] [id number] COPD with exacerbation Social History Tobacco Use Types Packs/Day Years [...] Sign Reading Time Taken Comments Blood Pressure 142/91 04/22/2024 1:11 PM EDT Pulse 111 04/22/2024 1:11 PM EDT Temperature 36.2 ??C (97.1 ??F) 04/22/2024 1:11 PM ED T Respiratory Rate - - Oxygen Saturation 99% 04/22/2024 1:11 PM EDT Inhaled Oxygen Concentration - - Weight 120.8 kg (266 lb 6.4 oz) 04/22/2024 1:11 PM EDT Height 172.7 cm (5' 7.99) 04/22/2024 1:11 PM ED T reported Body Mass Index 40.52 04/22/2024 1:11 PM EDT documented in this encounter Progress Notes * Martínez Cason MD - 04/22/2024 1:20 PM EDT Subjective: Patient ID: Tracie Layton is a 53 y.o. female. Chief Complaint Patient presents with Wheezing PMH - DM2 (last A1c 7.5%), tobacco use disorder, obesity (BMI 39), HTN, HLD PFTs in 2016 showed mild obstruction I think it's RSV. Started to feel sick about a week ago. Just returned from a cruise to the [facility]. +cough, chills, no fever. Non-productive - has to fight to get it out. Comes in fits. No headaches, myalgias, sore throat, runny nose. Short of breath in the morning when she gets up. Taking duoneb nebulizer treatments about 4 times aday and also using her inhaler a lot. Tried some mucinex which wasn't helpful. Has Advair at homebut doesn't use it. COVID negative about 5 days ago. She has relapsed to smoking again. Objective: BP (!) 142/91 (BP Location (NBP): Left arm, Patient Position: Sitting, BP Cuff Sizes: Large Adult (32-43 cm)) Pulse (!) 111 Temp 36.2 ??C (97.1 ??F) (Temporal) Ht 172.7 cm (5' 7.99) Comment: reported Wt 120.8 kg (266 lb 6.4 oz) LMP 10/01/2019 (Approximate) SpO2 99% BMI 40.52 kg/m?? Wt Readings from Last 3 Encounters: 04/22/24 120.8 kg (266 lb 6.4 oz) 01/17/24 119.7 kg (264 lb) 01/08/24 119.7 kg (264 lb) GEN - fatigued appearing, speaking in full sentences with normal WoB RESP - expiratory wheezes in all lung lopez, normal WoB, no rhonchi or crackles Assessment and Plan: Tracie was seen today for wheezing. Diagnoses and all orders for this visit: COPD with exacerbation Meets criteria for COPD exacerbation with dyspnea, wheezing, cough. Does not have a formal COPD diagnosis but has PFTs with obstruction and long history of tobacco use. Treat with 5 day steroid burstand azithromycin. Tessalon for cough with codeine/guaifenesin for backup (only at night). We discussed prevention including advair or similar to avoid exacerbations. She will discuss with her PCP. Also discussed tobacco cessation as important to preventing flares. She will start taking Chantix thatshe has at home. - predniSONE (Deltasone) 20 mg tablet; Take 2 tablets by mouth daily for 5 days. - azithromycin (Zithromax) 250 mg tablet; Day 1: Take 2 tablets daily, Day 2 - 5: Take one tablet daily - benzonatate (Tessalon) 100 mg capsule; Take 1 capsule by mouth 3 times daily as needed for Cough. - codeine-guaiFENesin (guaiFENesin AC) 10-100 mg/5 mL Liquid; Take 5 mLs by mouth 3 times daily as needed for Cough. documented in this encounter Plan of Treatment Upcoming Encounters Date Type Department Care Team (Late st Contact Info) Description 09/05/2024 9:00 AM EDT Office Visit Internal Medicine at [address] [address] Gema Oliveira DO [facility] [address] [address] documented as of this encounter Visit Diagnoses Diagnosis COPD with exacerbation Obstructive chronic bronchitis with exacerbation documented in this encounter Care Teams Cardiac Rn Relationship Specialty Start Date End Date Gema Oliveira DO [facility] [address] [address] PCP - General General Internal Medicine 05/17/23 documented as of this encounter
--- OUTSIDE RECORDS SUMMARY | 2024-07-12 00:26 | XMS_ITS | Encounter Summary ---
Author Organization [facility] Address [facility] [place] [address] Care Team Providers Care Swing Tender Name Role Phone Gema Oliveira DO Primary Care Provider [phone]- [phone] Encounter Details Date Type Department Care Team (Latest Contact Info) Description 04/22/2024 Travel Social History Tobacco Use Types Packs/Day [...] place to sleep or slept in a assisted (including now)? Patient refused 02/10/2023 IPV Inpatient [...] EDT Office Visit Internal Medicine at [address] [address] Geam Oliveira DO [facility] [address] [place] [address] documented as of this encounter Visit Diagnoses Not on filedocumented in this encounter Care Teams Swing Tender Relationship Specialty Start Date End Date Gema Oliveira DO [facility] [place] [address] PCP - General General Internal Medicine 05/17/23 documented as of this encounter
--- OUTSIDE RECORDS SUMMARY | 2024-07-12 00:27 | XMS_ITS | Encounter Summary ---
Author Organization [facility] Address [facility] [place] [address] Care Team Providers Care Asphalt Patcher Name Role Phone Gema Oliveira DO Primary Care Provider [phone]- [phone] Encounter Details Date Type Department Care Team (Latest Contact Info) Description 09/28/2023 9:06 AM EST - 09/28/2023 11:59 PM [facility] Hospital Encounter XRay at [address] [place] [address] Bret Nicholson MD [facility] [place] [address] Chronic right-sided low back pain with sciatica, sciatica laterality unspecified Discharge Disposition: Home Social History Tobacco Use [...] a fci (including now)? Patient refused 02/10/2023 Sex and Gender Information Value Date Recorded Sex Assigned at Not on file Gender Identity Not on file Sexual Orientation Not on file documented as of this encounter Medications at Time of Discharge Medication Sig Dispensed Refills Start Date End Date acetaminophen (Tylenol) 325 mg tablet Take 2 tablets by mouth every 4 hours as needed for Pain. 30 tablet 1 12/16/2023 cyclobenzaprine (Flexeril) 10 mg tablet Take 1 tablet by mouth 3 times daily as needed for Muscle spasms. 30 tablet 12/16/2023 hydroCHLOROthiazide (Hydrodiuril) 25 mg tabletIndications:Esse ntial hypertension Take 1 tablet by mouth daily. 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 Prefers one touch Ultra, but make sure strips ordered match machine dispensed 1 each 12/27/2022 Advair Diskus 100-50 mcg/dose Disk with DeviceIndications:Mild intermittent asthma without complication Inhale 1 puff into the lungs every 12 hours. Brand name 1 each 05/30/2022 diclofenac (Voltaren) 1 % Gel APPLY TOPICALLY TO THE AFFECTED AREA FOUR TIMES DAILY NEEDED 100 g 3 10/12/2021 Incontinence Pad, Liner, Disp Pad 1 each by [facility].(Non-Drug; Combo Route) route every 4 hours as needed (for incontinence). 200 each 10/03/2019 docusate sodium (Colace) 100 mg capsule Take 1 capsule by mouth 2 times daily for 10 days. 20 capsule 12/16/2023 12/26/2023 oxyCODONE (Roxicodone) 5 mg tablet Take 1-2 tablets by mouth every 4 hours as needed for Pain. For moderate pain (5-7/10) take 1 tablet. For severe pain (8-10/10) take 2 tablets. 30 tablet 12/16/2023 01/08/2024 ipratropium-albuteroL (Duoneb) 0.5 mg-3 mg(2.5 mg base)/3 mL Solution for Nebulization INHALE THE CONTENTS OF 1 VIAL BY NEBULIZATION EVERY 4 HOURS NEEDED 180 mL 12/16/2023 12/18/2023 ondansetron ODT (Zofran-ODT) 4 mg disintegrating tabletIndications:Naus ea without vomiting DISSOLVE ONE TABLET ON THE TONGUE EVERY 8 HOURS NEEDED FOR NAUSEA 20 tablet 09/18/2023 10/04/2023 pramipexole (Mirapex) 0.125 mg tabletIndications:Rest less leg Take three tablets by mouth nightly 180 tablet 1 08/14/2023 10/19/2023 metFORMIN (Glucophage) 1,000 mg tabletIndications:Type 2 diabetes mellitus without complication, without long-term current use of insulin Take 1 tablet by mouth daily. 1 tablet 08/14/2023 02/14/2024 busPIRone (Buspar) 5 mg tabletIndications:Anxi ety Take 1 tablet by mouth 3 times daily. 30 tablet 11 08/14/2023 01/08/2024 dulaglutide (Trulicity) 0.75 mg/0.5 mL Pen InjectorIndications:Ty pe 2 diabetes mellitus without complication, unspecified whether buttermaker helper insulin use INJECT 0.75MG UNDER THE SKIN ONCE WEEKLY 6 mL 07/15/2023 10/04/2023 omeprazole (PriLOSEC) [address] capsuleIndications:Gas troesophageal reflux disease without esophagitis Take 1 capsule by mouth daily. 90 capsule 3 06/14/2023 06/16/2024 lisinopriL (Zestril) 40 mg tabletIndications:Esse ntial hypertension TAKE ONE TABLET BY MOUTH EVERY DAY 90 tablet 3 05/16/2023 06/03/2024 blood sugar diagnostic strips StripIndications:Type 2 diabetes mellitus without complication, unspecified whether buttermaker helper insulin use 1 strip by Other route 4 times daily. Use as instructed Prefers one touch Ultra, but make sure strips ordered match machine dispensed 400 each 3 04/27/2023 05/08/2024 Ventolin HFA 90 mcg/actuation HFA Aerosol InhalerIndications:Mil d intermittent asthma without complication,Obstructi ve lung disease (generalized) INHALE TWO PUFFS INTO THE LUNGS EVERY 4 HOURS NEEDED FOR WHEEZING 18 g 3 03/20/2023 04/16/2024 varenicline (Chantix) 1 mg tabletIndications:smok ing cessation Take 1 tablet by mouth 2 times daily (with meals). This medication should be taken in the middle of your largest meal(s) with a full glass of water. DO NOT TAKE ON AN EMPTY STOMACH. Indications: stop smoking 60 tablet 5 02/10/2023 01/08/2024 metoprolol succinate XL (Toprol-XL) 25 mg Tablet Sustained Release 24 hr Take 1 tablet by mouth daily. 90 tablet 3 12/28/2022 10/26/2023 ipratropium-albuterol (DUONEB) 0.5 mg-3 mg(2.5 mg base)/3 mL Solution for Nebulization INHALE THE CONTENTS OF 1 VIAL BY NEBULIZATION EVERY 4 HOURS NEEDED 180 mL 5 11/27/2019 12/16/2023 documented as of this encounter Plan of Treatment Upcoming Encounters Date Type Department Care Team (Late st Contact Info) Description 09/05/2024 9:00 AM EDT Office [place] [address] Gema Oliveira, DO [facility] [address] Scheduled Orders Name Type Priority Associated Diagnoses Orde r Schedule XR Lumbar Spine 2 Or 3 Views (Generic) Imaging Routine Chronic right-sided low back pain with sciatica, sciatica laterality unspecified 1 Occurrences starting 09/28/2023 until 09/28/2023 documented as of this encounter Procedures Procedure Name Priority Date/Time Associated Diagnosis Comments XR LUMBAR SPINE AP FLEXION AND EXTENSION ONLY Routine 09/28/2023 9:20 AM EST Chronic right-sided low back pain with sciatica, sciatica laterality unspecified documented in this encounter Results * XR Lumbar Spine AP Flexion and Extension Only (09/28/2023 9:20 AM EST) Anatomical Region Laterality Modality L-spine N/A Digital Radiogra phy Impressions 09/28/2023 2:08 PM EST 1. Grade 1 anterolisthesis of L4 on L5 (3 mm) with no dynamic instability. 2. Grade 1 retrolisthesis mentioned on prior MR L-spine is not as seen radiographically. 3. Degenerative disc disease at L5-S1. 4. Multiple level facet arthrosis. Thank you for letting us participate in the care of this patient. ??If you are a health care provider and have any questions regarding this report, please contact the number below. ??For patients who have questions please contact the health rn medicare that requested your imaging first. ? Narrative 09/28/2023 2:08 PM EST EXAMINATION: XR LUMBAR SPINE AP FLEXION AND EXTENSION ONLY CLINICAL HISTORY: LBP, increased w weight-bearing. R/O instability TECHNIQUE: Flexion and extension lateral views of the lumbar spine flexion and extension. COMPARISON: MR L-spine 01/05/2023. FINDINGS: 5 nonrib-bearing lumbar type vertebral bodies. There is mild grade 1 anterolisthesis of L4 on L5, measuring 3 mm on flexion, and 3 mm on extension. The lumbar spine is normal in alignment with no listhesis The grade 1 retrolisthesis of L5 on S1 noted on prior MR L-spine is not appreciated radiographically. Intervertebral body heights. Multilevel facet arthrosis, most pronounced at L4-L5 and L5-S1. Degenerative disc disease, at L5-S1 with disc height loss and endplate sclerosis The visualized bony pelvis is intact, with symmetric sacroiliac joints. Procedure Note Dawit Fleming MD - 09/28/2023 EXAMINATION: XR LUMBAR SPINE AP FLEXION AND EXTENSION ONLY CLINICAL HISTORY: LBP, increased w weight-bearing. R/O instability TECHNIQUE: Flexion and extension lateral views of the lumbar spine flexion andextension. COMPARISON: MR L-spine 01/05/2023. FINDINGS: 5 nonrib-bearing lumbar type vertebral bodies. There is mild grade 1 anterolisthesis of L4 on L5, measuring 3 mm onflexion, and 3 mm on extension. The lumbar spine is normal in alignment with nolisthesis The grade 1 retrolisthesis of L5 on S1 noted on prior MR L-spine is not appreciated radiographically. Intervertebral body heights. Multilevel facet arthrosis, most pronouncedat L4-L5 and L5-S1. Degenerative disc disease, at L5-S1 with disc height lossand endplate sclerosis The visualized bony pelvis is intact, with symmetric sacroiliac joints. IMPRESSION 1. Grade 1 anterolisthesis of L4 on L5 (3 mm) with no dynamicinstability. 2. Grade 1 retrolisthesis mentioned on prior MR L-spine is not as seen radiographically. 3. Degenerative disc disease at L5-S1. 4. Multiple level facet arthrosis. Thank you for letting us participate in the care of this patient. If youare a health care provider and have any questions regarding this report,please contact the number below. For patients who have questions please contactthe health rn medicare that requested your imaging first. Bret Nicholson MD IMG DX ORDERABLES documented in this encounter Visit Diagnoses Diagnosis Chronic right-sided low back pain with sciatica, sciatica laterality unspecified documented in this encounter Care Teams Asphalt Patcher Relationship Specialty Start Date End Date Gema Oliveira DO [facility] [address] PCP - General General Internal Medicine 05/17/23 documented as of this encounter
--- OUTSIDE RECORDS SUMMARY | 2024-07-12 00:27 | XMS_ITS | Encounter Summary ---
[place] [address] Care Team Providers Care Clinical Research Nurse Name Role Phone Gema Oliveira DO Primary Care Provider +1- [phone] Encounter Details Date Type Department Care Team (Latest Contact Info) Description 10/05/2023 1:15 PM EST Laboratory Appointment Lab [address] [place] [id number] Spondylolisthesis of lumbar region Social History Tobacco [...] a intermediate (including now)? Patient refused 02/10/2023 Sex and Gender Information Value Date Recorded Sex Assigned at Not on file Gender Identity Not on file Sexual Orientation Not on file documented as of this encounter Plan of Treatment Upcoming Encounters Date Type Department Care Team (Late st Contact Info) Description 09/05/2024 9:00 AM EDT Office [place] [address] Gema Oliveira, [facility] [place] [address] documented as of this encounter Procedures Procedure Name Priority Date/Time Associated Diagnosis Comments URINALYSIS DIPSTICK Routine 10/05/2023 1 1:51 AM EST Spondylolisthesis of lumbar region HEMOGRAM Routine 10/05/2023 11:39 AM EST Spondylolisthesis of lumbar region DIFFERENTIAL, AUTOMATED Routine 10/05/20 23 11:39 AM EST Spondylolisthesis of lumbar region CREATININE Routine 10/05/2023 11:39 AM EST Spondylolisthesis of lumbar region HC PARTIAL THROMBOPLASTIN TIME Routine 10/05/2023 11:39 AM EST Spondylolisthesis of lumbar region PROTHROMBIN TIME Routine 10/05/2023 11:3 9 AM EST Spondylolisthesis of lumbar region CBC (WITH DIFF) Routine 10/05/2023 11:39 AM EST Spondylolisthesis of lumbar region BUN Routine 10/05/2023 11:39 AM EST Spondylolisthesis of lumbar region ELECTROLYTES PANEL Routine 10/05/2023 11 :39 AM EST Spondylolisthesis of lumbar region documented in this encounter Results * (ABNORMAL) Urinalysis without microscopic (10/05/2023 11:51 AM EST) Glucose, Urine Dipstick Negative Negative mg/dL [facility] Protein, Urine Dipstick Negative Negative mg/dL [facility] Bilirubin, Urine Dipstick Negative Negative mg/dL [facility] Comment: Clinical correlation required for positive Urine Bilirubin results as false positive may occur with some drugs and drug related products. If a false positive is suspected a serum total bilirubin should be considered if clinically indicated. Urobilinogen, Urine Dipstick Normal Normal mg/dL [facility] pH, Urn (dipstick) 5.5 5.0 - 8.0 [facility] Blood, Urine Dipstick Negative Negative mg/dL [facility] Ketone, Urine Dipstick Trace(A) Negative mg/dL [facility] Nitrite, Urine Dipstick Negative Negative [facility] Leukocytes, Urine Dipstick Small(A) Negative [facility] Appearance, Urine Dipstick Cloudy(A) Clear [facility] Specific [place] Urine Automated 1.023 1.005 - 1.030 [facility] Color, Urine Dipstick Yellow Yellow [facility] Urine 10/05/2023 11:5 1 AM EST 10/05/2023 11:58 AM EST Narrative Resulting Agency Comment Spec In Lab Bret Nicholson MD URINE ORDERABLES [facility] [place] [address] * Differential, Automated (10/05/2023 11:39 AM EST) Pathologist [facility] Neutrophil % 49.9 % [facility] Neutrophil Absolute 3.59 1.70 - 6.10 x10(3)/[facility] Lymph % 38.3 % [facility] Lymphocytes Abs 2.8 0.9 - 3.2 x10(3)/[facility] Monocyte % 7.8 % [facility] Monocyte Abs 0.6 0.3 - 0.9 x10(3)/[facility] Eos % 3.3 % [facility] Eosinophils Abs 0.2 0.0 - 0.4 x10(3)/[facility] Basophil % 0.1 % [facility] Baso Absolute 0.0 0.0 - 0.1 x10(3)/[facility] Immature Gran % 0.60 % [facility] Comment: Immature granulocytes(IG's)percentage and absolute count will include metamyelocytes, myelocytes, and promyelocytes. Blood smears from CBCs yielding IG's will be scanned manually for concordance. If this scan disagrees with the automated IG or if promyelocytes are noted, a manual differential will be performed. Immature Gran Absolute 0.04 0.00 - 0.04 x10(3)/[facility] Blood 10/05/2023 11:3 9 AM EST 10/05/2023 11:46 AM EST Narrative Resulting Agency Comment Spec In Lab Bret Nicholson MD [place] [address] * (ABNORMAL) Hemogram (10/05/2023 11:39 AM EST) [facility] White Blood Cell 7.2 4.0 - 9.5 x10(3)/mc L [facility] Red Blood Cell 4.85 4.00 - 5.21 x10(6)/mc L [facility] Hemoglobin 14.0 11.7 - 15.5 g/dL [facility] Hematocrit 41.0 35.7 - 45.8 % [facility] Mean Cell Volume 84.5 82.6 - 94.4 fL [facility] Mean Cell Hemoglobin 28.9 27.1 - 32.0 pg [facility] Mean Cell Hemoglobin Concentration 34.1 31.7 - 35.0 g/dL [facility] Platelet 195 145 - 357 x10(3)/mc L [facility] RDW Standard Deviation 36.3(L) 37.0 - 46.0 fL [facility] RDW coefficient of variation 11.9 11.5 - 14.1 % [facility] Mean Platelet Volume 11.0 7.6 - 12.9 fL [facility] NRBC% auto 0.0 % [facility] NRBC Absolute 0.000 0.000 - 0.000 x10(3)/mc L [facility] Blood 10/05/2023 11:3 9 AM EST 10/05/2023 11:46 AM EST Narrative Resulting Agency Comment Spec In Lab Bret Nicholson MD HEMATOLOGY ORDERABLE S Performing Organization Address [facility] Co de Phone Number [facility] [place] [address] * Electrolytes panel (10/05/2023 11:39 AM EST) Sodium 143 135 - 145 mmol/L [facility] Potassium 3.7 3.5 - 5.0 mmol/L [facility] Comment: Please note: ??Patients with WBC >100,000 may have falsely elevated Potassium levels. ??For accurate Potassium quantification in these patients send serum separator tube (gold top) for subsequent determinations. ??Contact the Clinical Chemistry Laboratory if there are any questions. Chloride 102 98 - 107 mmol/L [facility] Carbon Dioxide 28 22 - 31 mmol/L [facility] Anion Gap 13 5 - 15 mmol/L [facility] Blood 10/05/2023 11:3 9 AM EST 10/05/2023 11:46 AM EST Narrative Resulting Agency Comment Spec In Lab Bret Nicholson MD CHEMISTRY ORDERABLES Performing Organization Address City/[facility] Co de Phone Number [facility] [place] [address] * BUN (10/05/2023 11:39 AM EST) Blood Urea Nitrogen 17 8 - 18 mg/dL [facility] Blood 10/05/2023 11:3 9 AM EST 10/05/2023 11:46 AM EST Narrative Resulting Agency Comment Spec In Lab Bret Nicholson MD CHEMISTRY ORDERABLES Performing Organization Address [facility] Co de Phone Number [facility] [place] [address] * Creatinine (10/05/2023 11:39 AM EST) Creatinine 1.09 0.70 - 1.20 mg/dL [facility] Est Glomerular Filtration Rate 62 >=60 mL/min/1. 73 m?? [facility] Comment: This patient's estimated GFR [...] urine creatinine clearance. Assignment of CKD stage 1-5 for patients with an eGFR near the transition point between stages may be based on clinical assessment of muscle mass and symptoms in addition to eGFR. Blood 10/05/2023 11:3 9 AM EST 10/05/2023 11:46 AM EST Narrative Resulting Agency Comment Spec In Lab Bret Nicholson MD CHEMISTRY ORDERABLES Performing Organization Address [facility] Co de Phone Number [facility] [place] [address] * Prothrombin Time (10/05/2023 11:39 AM EST) Prothrombin Time 11.6 9.4 - 12.5 sec [facility] International Normalization Ratio 1.0 [facility] Comment: An INR <2.0 indicates adequate procoagulant activity for hemostasis in most patients without underlying bleeding disorders, though the INR may not adequately reflect hemostatic capacity in patients with liver disease and synthetic impairment. The recommended target INR range for therapeutic anticoagulation is 2.0 ? 3.0 for most applications, though lower and higher ranges may be appropriate depending on clinical circumstances. Blood 10/05/2023 11:3 9 AM EST 10/05/2023 11:46 AM EST Narrative Resulting Agency Comment Spec In Lab Bret Nicholson MD HEMATOLOGY ORDERABLE S Performing Organization Address City/[facility]/ZIP Co de Phone Number [facility] [place] [address] * APTT (10/05/2023 11:39 AM EST) Partial Thromboplastin Time 34 25 - 37 sec [facility] Comment: The PTT is NOT appropriate for heparin monitoring. Use the Anti-Xa level for heparin monitoring (HEP UFH) or LMWH monitoring (HEP LMW). A PTT less than 37 seconds generally indicates adequate hemostasis. Blood 10/05/2023 11:3 9 AM EST 10/05/2023 11:46 AM EST Narrative Resulting Agency Comment Spec In Lab Bret Nicholson MD HEMATOLOGY ORDERABLE S Performing Organization Address City/[facility] Co de Phone Number [facility] [place] [address] documented in this encounter Visit Diagnoses Diagnosis Spondylolisthesis of lumbar region Acquired spondylolisthesis documented in this encounter Care Teams Clinical Research Nurse Relationship Specialty Start Date End Date Gema Oliveira DO [facility] [place] [address] PCP - General General Internal Medicine 05/17/23 documented as of this encounter
--- OUTSIDE RECORDS SUMMARY | 2024-07-12 00:27 | XMS_ITS | Encounter Summary ---
Author Organization [facility], [facility] Address [facility] [place] [address] Care Team Providers Care Controls Engineer Name Role Phone Gema Oliveira DO Primary Care Provider +1- [phone] Reason for Visit * Reason Onset Date Comments Medication Refill 08/27/2023 Encounter Details Date Type Department Care Team (Late st Contact Info) Description 08/27/2023 Refill Internal Medicine at [address] [id number] Gema Oliveira, DO [facility] [place] [address] Nausea without vomiting Social History Tobacco Use [...] to sleep or slept in a senior care (including now)? Patient refused 02/10/2023 Sex and Gender Information Value Date Recorded Sex Assigned at Not on file Gender Identity Not on file Sexual Orientation Not on file documented as of this encounter Miscellaneous Notes * Telephone Encounter - Iwona Palmer MA - 08/29/2023 1:06 PM EDT Prescription Renewal Request Name: Tracie Palm Macrina : 1970 Prescription(s) Requested: Requested Prescriptions Pending Prescriptions Disp Refills ondansetron ODT (Zofran-ODT) 4 mg disintegrating tablet 20 tablet 0 Sig: DISSOLVE ONE TABLET ON THE TONGUE EVERY 8 HOURS NEEDED FOR NAUSEA Date of Encounter last in This Dept (If need an appointment send to secretaries to schedule): 08/14/2023 Next Encounter in This Dept: 10/25/2023 Date of Last Refill (for each medication): 08/13/2023 Medication category requirements (labs etc): N/A Status of request: Pended Allergies Allergen Reactions Bactrim [Sulfamethoxazole-Trimethoprim] Anaphylaxis Trimethoprim Anaphylaxis Aleve [Naproxen Sodium] Rash Per neuro team, patient has tolerated ketorolac in the past Keflex [Cephalexin] Other (See Comments) Racing heart Meloxicam Nausea Only Amlodipine Nausea And Vomiting Iwona Palmer MA 08/29/23 1:06 PM documented in this encounter Plan of Treatment Upcoming Encounters Date Type Department Care Team (Late st Contact Info) Description 09/05/2024 9:00 AM EDT Office Visit Internal Medicine at [address] [address] Gema Oliveira DO [facility] [place] [address] documented as of this encounter Visit Diagnoses Diagnosis Nausea without vomiting documented in this encounter Care Teams Controls Engineer Relationship Specialty Start Date End Date Gema Oliveira DO [facility] [place] [address] PCP - General General Internal Medicine 05/17/23 documented as of this encounter
--- OUTSIDE RECORDS SUMMARY | 2024-07-12 00:27 | XMS_ITS | Encounter Summary ---
Author Organization [facility] Address [facility] [place] [address] Care Team Providers Care Card Player Name Role Phone Gema Oliveira DO Primary Care Provider [phone] Reason for Visit * Auth/Cert (Routine) Specialty Diagnoses / Procedures Referred By Contac t Referred To Contact Diagnoses Spondylolisthesis, lumbar region Low back pain, unspecified Spondylolisthesis Procedures PRO ARTHRODESIS COMBINED TECHNIQUE 1 INTERSPACE LUMBAR PRO BURROUGHS FACETEC/FORAMOT DRG ARTHRD LUMBAR 1 VRT SGM PRO POSTERIOR NON-SEGMENTAL INSTRUMENTATION PRO INSERT BIOMCHN DEV INTERVERTEBRAL DSC SPC W/ARTHRD PRO STEROTACTIC CPTR ASSTD PX SPINAL PRO AUTOGRAFT SPINE SURGERY LOCAL FROM SAME INCISION PRO ALLOGRAFT FOR SPINE SURGERY ONLY MORSELIZED OPTIME, IMPLANTABLE/INSERTABLE DEVICE, NOC OPTIME, ANCHOR/SCREW FOR OPPOSING BN-TO-BN OR SOFT [id number] (IMPLANTABLE) Bret Nicholson MD [facility] [place] [address] Referral ID Status Reason Start Date Expiration Date Visits Re quested Visits Authorized [id number] 10/23/2023 1 1 Encounter Details Date Type Department Care Team (Late st Contact Info) Description 12/15/2023 7:50 AM EST Anesthesia Event Operating Room [address] [place] [id number] Amilcar Currie, RELASTER [address] [place] [address] Anesthesia Record Procedure Summary Procedure Name Responsible Anesthesiologist Anesthesia Start Time Anesthesia Stop Time ARTHRODESIS, COMB. POST OR POSTEROLAT W/LAMI &/OR DISC SINGLE INTERSPACE; LUMBAR (WRVU 26.8) (Spine Lumbar) Amilcar Currie, RELASTER 12/15/23 0750 12/15/23 1153 Events Date Time Event Comment 12/15/2023 0742 0750 AN Verify 0750 Start 0750 An Start Data 0755 An Induction 0757 An Intubation 0800 Anesthesia Ready 1139 Extubation/LMA Out 1143 an stop data 1153 Recovery or ICU Handoff [place] ent care was transferred to the destination unit staff after review of the patient's medical history, current anesthetic/surgical status and plan, according to the Provider Handoff Checklist. 1153 Stop Meds Name Total Midazolam 5 mg fentaNYL 200 mcg Propofol 250 mg Propofol INF 295.49 mg Ketamine 10 mg/mL 50 mg Rocuronium 80 mg Ondansetron 4 mg Dexamethasone 8 mg Ketorolac 30 mg ceFAZolin (Ancef) 2 g vial a ttach to sodium chloride 0.9% 100 mL Mini-Bag Plus 3 g Dexmedetomidine 20 mcg Dexmedetomidine INF 122.6 mcg Esmolol 30 mg Magnesium Sulfate 1 g Albuterol Inhaler 6 puff lactated ringers infusion 1,000 mL * Agents Name O2 Sevoflurane (et) * Blood No blood administrations on file. Lines, Drains, and Airways Type Details Placement Removal Incision 12/15/23; 0835; lowe r; lumbar spine; telfa, tegaderm, dermabond prineo 12/15/23 0835 by Marimar Ricardo RN PIV 12/15/23; 0655; 20 g auge; metacarpal vein (top of hand), left; US Not Used; es; distraction, tolerated well; removed per policy/procedure, catheter/device intact; 12/16/23; 1136 12/15/23 0655 by Mere Ritchie RN 12/16/23 1136 by Siobhan Rodriguez RN ETT Mask Ventilation: Juan Luis boss (1); ETT Type: Cuffed, Oral; ETT Size: 7.5 mm; Indirect: Video; Notes: Asleep, Pre-O2; Attempts: 1; Laryngoscopy Grade: 1; ETT Placement Verified By: Auscultation, Capnometry, Visual; Secured at Teeth: 21 cm; Removal Date: 12/15/23; Removal Time: 113812/15/23 075 by Amilcar Currie CRNA 12/15/23 113 by Amilcar Currie CRNA documented in this encounter Social History Tobacco Use Types Packs/Day Years [...] on file documented as of this encounter OR Notes * Anesthesia Postprocedure Evaluation - Amilcar Currie CRNA - 12/15/2023 12:50 PM EST Department of Anesthesiology Post-procedure Note Patient: Tracie Layton Procedure Summary Date: 12/15/23 Room / Location: [facility] OR MAIN OR Anesthesia Start: 0750 Anesthesia Stop: 1153 Procedures: ARTHRODESIS, COMB. POST OR POSTEROLAT W/LAMI &/OR DISC SINGLE INTERSPACE; LUMBAR (WRVU 26.8) (Spine Lumbar) LAMINECTOMY,FACETECTOMY,OR FORAMINOTOMY,DURING POSTERIOR INTERBODY ARTHRODESIS,LUMBAR; SINGLE VERTEBRAL SEGMENT (WRVU 4.25) POSTERIOR SPINAL NON-SEGMENTAL INST.(ONE SPACE) (WRVU 12.52) (Back) INSERTION INTERBODY BIOMECH DEV TO INTERVEBRAL DISC SPACE, EA INTERSPACE (WRVU 4.25) STEREOTACTIC COMPUTER-ASSTD NAVIGATIONAL SPINAL (WRVU 3.75) AUTOGRAFT FOR SPINE SURGERY ONLY, SAME INCISION (WRVU *) ALLOGRAFT FOR SPINE SURGERY ONLY; MORSELIZED (WRVU *) MODIFIER MEDTRONIC-MAGNIFUSE MODIFIER MEDTRONIC CATALYFT PL EXPANDABLE INTERBODY SYSTEM MODIFIER MEDTRONIC VOYAGER MODIFIER [id number] Diagnosis: (Spondylolisthesis) Surgeons: Bret Nicholson MD Responsible Provider: Amilcar Currie CRNA Anesthesia Type: general ASA Status: 3 All Anesthesia Providers: FRANSICO Independent: Amilcar Currie CRNA Vitals Value Taken Time BP 111/71 12/15/23 1230 Temp 36.4 ??C (97.6 ??F) 12/15/23 1150 Pulse 94 12/15/23 1221 Resp 19 12/15/23 1221 SpO2 95 % 12/15/23 1243 Pain Level 5 12/15/23 1229 Vitals shown include unfiled device data. Patient Location: PACU Level of Consciousness: Awake and Alert Pain Management: Satisfactory Analgesia PONV: None Cardiovascular Status: At Baseline Respiratory Status: Supplemental O2 (NC or FM) Postoperative Fluid Status: Intravascular EUvolemia Possible Anesthetic Complications: NONE apparent at time of evaluation Final Primary Anesthesia Type: General (The anesthetic type performed was the same as planned.) Comments: Please see PACU flowsheet for VS. Report and care to RN. Pt required supplemental 02 and a duoneb for wheezing in pacu. Back to baseline now. * Anesthesia Preprocedure Evaluation - Amilcar Currie CRNA - 12/15/2023 6:53 AM EST Images from the original note were not included. Pre-Anesthesia Evaluation for: Tracie Layton a 53 y.o. female. Procedure(s): ARTHRODESIS, COMB. POST OR POSTEROLAT W/LAMI &/OR DISC SINGLE INTERSPACE; LUMBAR (WRVU 26.8) LAMINECTOMY,FACETECTOMY,OR FORAMINOTOMY,DURING POSTERIOR INTERBODY ARTHRODESIS,LUMBAR; SINGLE VERTEBRAL SEGMENT (WRVU 4.25) POSTERIOR SPINAL NON-SEGMENTAL INST.(ONE SPACE) (WRVU 12.52) INSERTION INTERBODY BIOMECH DEV TO INTERVEBRAL DISC SPACE, EA INTERSPACE (WRVU 4.25) STEREOTACTIC COMPUTER-ASSTD NAVIGATIONAL SPINAL (WRVU 3.75) AUTOGRAFT FOR SPINE SURGERY ONLY, SAME INCISION (WRVU *) ALLOGRAFT FOR SPINE SURGERY ONLY; MORSELIZED (WRVU *) MODIFIER MEDTRONIC-MAGNIFUSE MODIFIER MEDTRONIC CATALYFT PL EXPANDABLE INTERBODY SYSTEM MODIFIER MEDTRONIC VOYAGER MODIFIER [id number] Patient Active Problem List Diagnosis Date Noted ??? Type 2 diabetes mellitus without complication, without long-term current use of insulin 09/25/2018 ??? Hypertension, essential, benign 08/30/2018 ??? Adult BMI 40.0-44.9 kg/sq m 02/23/2016 ??? Depression 08/10/2015 ??? Obstructive lung disease (generalized) 09/25/2018 ??? Alcohol abuse ??? Osteoarthritis of spine with radiculopathy, lumbar region 07/10/2017 ??? Esophageal reflux (GERD) 10/29/2014 ??? PTSD (post-traumatic stress disorder) 10/29/2014 ??? Agoraphobia 10/29/2014 ??? ADD (attention deficit disorder) (ADHD) 10/29/2014 ??? Vitamin D deficiency 10/29/2014 ??? H/O suicide attempt 10/29/2014 ??? Erosion of vaginal mesh 06/06/2017 ??? Mixed stress and urge urinary incontinence 03/28/2016 ??? Post-traumatic headache 09/29/2014 ??? Bilateral occipital neuralgia 07/14/2014 ??? History of cervical cancer 11/20/2001 ??? Hyperlipidemia 10/26/2023 ??? Class 3 severe obesity in adult 01/06/2022 ??? Pelvic pain 10/28/2021 ??? S/P laparoscopic assisted vaginal hysterectomy (LAVH) 10/28/2021 ??? Anxiety 09/17/2020 ??? Pulmonary nodules 12/22/2019 ??? Smoking 10/29/2014 Past Medical History: Diagnosis Date ??? Agoraphobia ??? Alcohol abuse ??? Diabetes ??? Gastroesophageal reflux ??? H/O suicide attempt 10/29/2014 Overdose in 2000 ??? High blood pressure ??? Hip problem ??? History of cervical cancer 2002 s/p LEEP??? in [place] ??? HTN (hypertension) ??? Post-traumatic headache 05/31/2014 fell out of a hammock Past Surgical History: Procedure Laterality Date ??? CERVIX SURGERY LEEP ??? SECTION x2 ??? COLONOSCOPY ??? CT GUIDED INJECTION SI JOINT 03/21/2023 CT Guided Injection SI Joint 03/21/2023 Margi Gomez MD [facility] RAD CT SCAN ??? ENDOMETRIAL ABLATION ??? HYSTERECTOMY laparoscopic for abnormaluterine bleeding ??? PRO COLONOSCOPY, REMV LESN, SNARE N/A 06/11/2015 COLONOSCOPY, POLYPECTOMY, REMOVAL LESION BY SNARE performed by Larry Ryan MD at [facility] ENDOSCOPY ??? PRO REMV/REVS SLING FOR STRES INCONTINENCE N/A 06/06/2017 SLING, REVISEOR REMOVE, REPLACE, VAGINALAPPROACH, SYNTHETIC\FASCIA (WRVU 11.15) performed by Frankie Richards MD at [facility] OSC ??? PRO SLING OPER STRES INCONTINENCE N/A 06/08/2016 URETHRAL SUSPENSION, SLING\FASCIA OR SYNTHETIC performed by Frankie Richards MD at [facility] MAIN OR ??? PRO UPPER GI ENDOSCOPY, BIOPSY 01/08/2014 EGD WITH BIOPSY performed by Ilya Whitney MD at [facility] ENDOSCOPY ??? PRO UPPER GI ENDOSCOPY, BIOPSY N/A 06/21/2017 UPPER GASTROINTESTINAL ENDOSCOPY,WITH BIOPSY SINGLE OR MULTIPLE (WRVU 2.49) performed by Rickie Pineda MD at [facility] ENDOSCOPY ??? PRO UPPER GI ENDOSCOPY, DIAGNOSTIC N/A 06/21/2017 EGD, UPPER GI ENDOSCOPY performed by Rickie Pineda MD at [facility] ENDOSCOPY ??? TUBAL LIGATION 1992 Social History Tobacco Use ??? Smoking status: Former Packs/day: 0.50 Years: 30.00 Additional pack years: 0.00 Total pack years: 15.00 Types: Cigarettes Quit date: 05/12/2023 Years since quittin.5 ??? Smokeless tobacco: Never ??? Tobacco comments: Quit 5 wks ago Substance Use Topics ??? Alcohol use: Yes Comment: Very rare Social History Substance and Sexual Activity Drug Use Not Currently Allergies Allergen Reactions ??? Bactrim [Sulfamethoxazole-Trimethoprim] Anaphylaxis ??? Trimethoprim Anaphylaxis ??? Aleve [Naproxen Sodium] Rash Per neuro team, patient has tolerated ketorolac in the past ??? Keflex [Cephalexin] Other (See Comments) Racing heart ??? Meloxicam Nausea Only ??? Amlodipine Nausea And Vomiting Medications: MAR and/or home medications have been reviewed. Physical Exam: Preprocedure Vitals Current as of 12/15/23 0653 BP: 170/85 Pulse: 102 Resp: 20 SpO2: 96 Temp: 36.1 ??C (97 ??F) Height: 172.7 cm (5' 8) (12/15/23) Weight: 120.2 kg (265 lb) (12/15/23) BMI: 40.29 IBW: 63.9 kg (140 lb 13.3 oz) Last edited 12/15/23 0635 by ES Airway Assessment: Mallampati: II TM distance: >3 FB Neck ROM: full Cardiovascular Assessment: Rhythm: regular Rate: normal Pulmonary Assessment: (+) wheezes PE comment: Mild wheezes this am. Duoneb given resolved. Dental Assessment: Misc Assessment: Patient is wearing No contact(s). IV access: Peripheral line Last Filed Perioperative Cognitive Screening None Anesthesia Plan: ASA 3 general, with a(n) intravenous induction Informed Consent: Anesthetic plan and risks discussed with patient. Use of blood products discussed with patient who consented to blood products. Anesthesia Screening documented in this encounter Plan of Treatment Upcoming Encounters Date Type Department Care Team (Late st Contact Info) Description 09/05/2024 9:00 AM EDT Office Visit Internal Medicine at [place] [phone] [facility] [place] [address] documented as of this encounter Visit Diagnoses Not on filedocumented in this encounter Administered Medications Inactive Administered Medications - up to 3 most recent administrations Medication Order MAR Action Action Date Dose Rate Site albuteroL 90 mcg/actuation inhaler Inhalation, PRN, Starting on Mon12/15/23 at 1134, Until Mon12/15/23 at 1153, Anesthesia Intra-op, Routine Given 12/15/2023 11:34 AM EST 6 puffs ceFAZolin (Ancef) 2 g vial attach to sodium chloride 0.9% 100 mL Mini-Bag Plus 2 g, Intravenous, ONCE, 1 dose, On Mon12/15/23 at 0645, Administer over 30 Minutes, To be administered upon arrival to the OR within one hour prior to incision., Day of Surgery (Day of Procedure), Indication for (Active or Suspected): Prophylaxis Bolus 12/15/2023 8:07 AM EST 1 g New Bag 12/15/2023 8:04 AM EST 2 g dexAMETHasone (Decadron) injection Intravenous, PRN, Starting on Mon12/15/23 at 0806, Until Mon12/15/23 at 1153, Anesthesia Intra-op, Routine Given 12/15/2023 8:06 AM EST 8 mg dexmedeTOMIDine (Precedex) (4 mcg/mL) bolus injection (Anesthsia) Intravenous, PRN, Starting on Mon12/15/23 at 0755, Until Mon12/15/23 at 1153, Anesthesia Intra-op, Routine Given 12/15/2023 8:09 AM EST 4 mcg Given 12/15/2023 8:02 AM EST 8 mcg Given 12/15/2023 7:55 AM EST 8 mcg dexmedeTOMIDine (Precedex) (4 mcg/mL) in sodium chloride 0.9% 50 mL infusion Intravenous, CONTINUOUS PRN, Starting on Mon12/15/23 at 0815, Until Mon12/15/23 at 1153, Anesthesia Intra-op New Bag 12/15/2023 8:15 AM EST 0.4 mcg/kg/hr 12.02 mL/hr esmoloL (Brevibloc) (10 mg/mL) injection Intravenous, PRN, Starting on Mon12/15/23 at 0757, Until Mon12/15/23 at 1153, Anesthesia Intra-op, Routine Given 12/15/2023 7:57 AM EST 30 mg fentaNYL (pf) (50 mcg/mL) multi-dose injection Intravenous, PRN, Starting on Mon12/15/23 at 0755, Until Mon12/15/23 at 1153, Anesthesia Intra-op, Routine Given 12/15/2023 8:46 AM EST 100 mcg Given 12/15/2023 7:55 AM EST 100 mcg ketamine (Ketalar) (10 mg/mL) IV bolus injection (Anesthesia) Intravenous, PRN, Starting on Mon12/15/23 at 0755, Until Mon12/15/23 at 1153, Anesthesia Intra-op Given 12/15/2023 7:55 AM EST 50 mg ketorolac (Toradol) (30 mg/mL) injection Intravenous, PRN, Starting on Mon12/15/23 at 1122, Until Mon12/15/23 at 1153, Anesthesia Intra-op, Routine Given 12/15/2023 11:22 AM EST 30 mg lactated ringers infusion 1,000 mL, at 100 mL/hr, Intravenous, CONTINUOUS, Starting on Mon12/15/23 at 0645, Until Mon12/15/23 at 1301, Day of Surgery (Day of Procedure) Restarted 12/15/2023 7:50 AM EST New Bag 12/15/2023 7:00 AM EST 1,000 mLs 100 mL/hr magnesium sulfate (4 mEq/mL) (50 %) injection Intravenous, PRN, Starting on Mon12/15/23 at 0857, Until Mon12/15/23 at 1153, Anesthesia Intra-op, Routine Given 12/15/2023 8:57 AM EST 1 g midazolam (pf) (Versed) (1 mg/mL) multi-dose injection Intravenous, PRN, Starting on Mon12/15/23 at 0750, Until Mon12/15/23 at 1153, Anesthesia Intra-op, Routine Given 12/15/2023 7:50 AM EST 5 mg ondansetron (pf) (Zofran) (2 mg/mL) injection Intravenous, PRN, Starting on Mon12/15/23 at 0806, Until Mon12/15/23 at 1153, Anesthesia Intra-op, Routine Given 12/15/2023 8:06 AM EST 4 mg propofoL (Diprivan) (10 mg/mL) infusion Intravenous, CONTINUOUS PRN, Starting on Mon12/15/23 at 0805, Until Mon12/15/23 at 1153, Anesthesia Intra-op, Routine New Bag 12/15/2023 8:05 AM EST 15 mcg/kg/min 7.776 mL/hr propofoL (Diprivan) 10 mg/mL bolus injection (Anesthesia) Intravenous, PRN, Starting on Mon12/15/23 at 0755, Until Mon12/15/23 at 1153, Anesthesia Intra-op Given 12/15/2023 7:55 AM EST 250 mg rocuronium (Zemuron) 10 mg/mL injection Intravenous, PRN, Starting on Mon12/15/23 at 0755, Until Mon12/15/23 at 1153, Anesthesia Intra-op, Routine Given 12/15/2023 7:55 AM EST 80 mg documented in this encounter Care Teams Card Player Relationship Specialty Start Date End Date Gema Oliveira DO [facility] [place] [address] PCP - General General Internal Medicine 05/17/23 documented as of this encounter
--- OUTSIDE RECORDS SUMMARY | 2024-07-12 00:27 | XMS_ITS | Encounter Summary ---
Author Organization [facility] Address [facility] [place] [address] Care Team Providers Care Turbinated Bone Grinder Name Role Phone Gema Oliveira DO Primary Care Provider +1- [phone] Reason for Visit * Surgical (Routine) - Closed Specialty Diagnoses / Procedures Referred By María Elena mcdaniel Referred To Contact Neurosurgery Diagnoses Lumbar back pain Gema Oliveira DO [facility] [place] [address] [facility] [address] [place] [id number] Referral ID Status Reason Start Date Expiration Date V isits Requested Visits Authorized [id number] Closed Consult, Test & Treat 08/14/2023 08/13/2024 1 1 Encounter Details Date Type Department Care Team (Latest Contact Info) Description 08/30/2023 3:00 PM EDT TH Visit (TeleHealth) [place] [address] Eb Peña PA [facility] [place] [address] Osteoarthritis of spine with radiculopathy, lumbar region; Sacroiliitis Social History Tobacco Use Types Packs/Day Years [...] a fdc (including now)? Patient refused 02/10/2023 Sex and Gender Information Value Date Recorded Sex Assigned at Not on file Gender Identity Not on file Sexual Orientation Not on file documented as of this encounter Progress Notes * Eb Peña PA - 08/30/2023 3:00 PM EDT Images from the original note were not included. SECTION OF NEUROSURGERY Telehealth Consultation Note 08/30/2023 Gema Oliveira DO [facility] [address] RE: Tracie TURNER: [address] Oliveira: Thank you for referring your patient Tracie Layton to the Neurosurgery Clinic at [facility] for evaluation of sacroiliitis. Ms. Layton is a pleasant 52 y.o. female with PMH of depression, obesity, HTN, DM2, GERD, PTSD, ADD,agoraphobia, Vit D deficiency, OA spine, alcohol abuse, obstructive lung disease, smoking, pulmonary nodules, anxiety, pelvic pain s/p LAVH, occipital neuralgia, hx cervical cancer (?LEEP in [place] 2001, Last pap smear 2020) who presents for evaluation of a sacroiliitis. She had seen previously by Dr. Garcia recently and prior to this Dr. Solis. She has a diagnosis of sacroiliitis and has had a work up including MRI of the lumbar spine and diagnostic R SI joint injection in 2017 and bilateral SI joint injections in 2021 She had modest relief of pain in 2017 and in 2021 she had significant improvement in her right sided pain following the injection. The left side got worse after the injection which prompted a L hip MRI. She reports she was told to seek physical therapy for the arthritisdiscovered on this. Following the injection she was told that she would be a candidate for a R SI pietro int fusion if the right sided pain recurred. She reports that she is essentially back to her baseline at this time with recurrence of the right sided pain and alleviation of the acutely worsened leftside. She admits to intermittent numbness to the anterior aspect of the legs. She is requesting transition of her care to [facility]. PAST MEDICAL HISTORY: Patient Active Problem List Diagnosis Type 2 diabetes mellitus without complication, without long-term current use of insulin Overview Note: HbA1c 5.9% started metformin 09/2018 Hypertension, essential, benign Overview Note: Started lisinopril 2017 Adult BMI 40.0-44.9 kg/sq m Depression Overview Note: hx suicide attempt Past meds: Prozac, Lexapro, Effexor, Clonazepam, [place]. None worked. Has chronic up and down daily. Currently on Wellbutrin for assistance with smoking cessation. Considering online counseling. Obstructive lung disease (generalized) Overview Note: PFTs 02/2016: FEV1 is reduced. The FEV1/FVC ratio is reduced. Impression: [x] Mild obstructive ventilatory defect (FEV1 >70% predicted) [x] Reduced FVC suggests possible restriction. Can be confirmed by lung volumes. Alcohol abuse Osteoarthritis of spine with radiculopathy, lumbar region Esophageal reflux (GERD) Overview Note: On PPI. EGD 06/2017 showed minor inflammation without evidence of Garza's. PTSD (post-traumatic stress disorder) Overview Note: nightmares Agoraphobia ADD (attention deficit disorder) (ADHD) Vitamin D deficiency H/O suicide attempt Overview Note: Overdose in 1999 Erosion of vaginal mesh Mixed stress and urge urinary incontinence Post-traumatic headache Bilateral occipital neuralgia History of cervical cancer Overview Note: s/p LEEP??? in [place] Class 3 severe obesity in adult Pelvic pain S/P laparoscopic assisted vaginal hysterectomy (LAVH) Anxiety Pulmonary nodules Overview Note: [address] 12/20/2019, consider repeat CT in 1 year 1. 5 mm oval nodular density LEFT upper lobe 2. indeterminate subpleural 5 mm nodule is seen in the LEFT lower lobe 3. 5 mm peripherally located RIGHT lower lobe pulmonary nodule Smoking Past Medical History: Diagnosis Date Agoraphobia Alcohol abuse Diabetes H/O suicide attempt 10/29/2014 Overdose in 1999 Hip problem History of cervical cancer 2001 s/p LEEP??? in [place] HTN (hypertension) Post-traumatic headache 05/31/2014 fell out of a hammock PAST SURGICAL HISTORY: Past Surgical History: Procedure Laterality Date CERVIX SURGERY LEEP SECTION x2 CT GUIDED INJECTION SI JOINT 03/21/2023 CT Guided Injection SI Joint 03/21/2023 Margi Gomez MD [facility] RAD CT SCAN ENDOMETRIAL ABLATION HYSTERECTOMY laparoscopic for abnormaluterine bleeding PRO COLONOSCOPY, REMV LESN, SNARE N/A 06/11/2015 COLONOSCOPY, POLYPECTOMY, REMOVAL LESION BY SNARE performed by Larry Ryan MD at [facility] ENDOSCOPY PRO REMV/REVS SLING FOR STRES INCONTINENCE N/A 06/06/2017 SLING, REVISEOR REMOVE, REPLACE, VAGINALAPPROACH, SYNTHETIC\FASCIA (WRVU 11.15) performed by Frankie Richards MD at [facility] OSC PRO SLING OPER STRES INCONTINENCE N/A 06/08/2016 URETHRAL SUSPENSION, SLING\FASCIA OR SYNTHETIC performed by Frankie Richards MD at [facility] MAIN OR PRO UPPER GI ENDOSCOPY, BIOPSY 01/08/2014 EGD WITH BIOPSY performed by Ilya Whitney MD at [facility] ENDOSCOPY PRO UPPER GI ENDOSCOPY, BIOPSY N/A 06/21/2017 UPPER GASTROINTESTINAL ENDOSCOPY,WITH BIOPSY SINGLE OR MULTIPLE (WRVU 2.49) performed by Rickie Pineda MD at [facility] ENDOSCOPY PRO UPPER GI ENDOSCOPY, DIAGNOSTIC N/A 06/21/2017 EGD, UPPER GI ENDOSCOPY performed by Rickie Pineda MD at [facility] ENDOSCOPY TUBAL LIGATION 1992 SOCIAL HISTORY: Social History Tobacco Use Smoking status: Former Packs/day: 0.50 Years: 30.00 Pack years: 15.00 Types: Cigarettes Quit date: 05/12/2023 Years since quittin.3 Smokeless tobacco: Never Tobacco comments: Quit 5 wks ago Vaping Use Vaping Use: Never used Substance Use Topics Alcohol use: Yes Comment: Very rare Drug use: No FAMILY HISTORY: Family History Problem Relation Age of Onset Brain Tumor Mother metastatic from lung Lung Cancer Mother No Known Problems Father Coronary Artery Disease Early Onset Brother 43 smoker Breast Cancer Maternal Aunt 60 Ovarian Cancer Neg Hx Colorectal Cancer Neg Hx Pancreatic Cancer Neg Hx Endometrial Cancer Neg Hx CURRENT MEDICATIONS: ondansetron ODT (Zofran-ODT) 4 mg disintegrating tablet pramipexole (Mirapex) 0.125 mg tablet metFORMIN (Glucophage) 1,000 mg tablet busPIRone (Buspar) 5 mg tablet hydroCHLOROthiazide (Hydrodiuril) 25 mg tablet dulaglutide (Trulicity) 0.75 mg/0.5 mL Pen Injector omeprazole (PriLOSEC) [address] capsule lisinopriL (Zestril) 40 mg tablet Trintellix 20 mg tablet blood sugar diagnostic strips Strip Ventolin HFA 90 mcg/actuation HFA Aerosol Inhaler varenicline (Chantix) 1 mg tablet metoprolol succinate XL (Toprol-XL) 25 mg Tablet Sustained Release 24 hr Blood-Glucose Meter Misc Advair Diskus 100-50 mcg/dose Disk with Device diclofenac (Voltaren) 1 % Gel ipratropium-albuterol (DUONEB) 0.5 mg-3 mg(2.5 mg base)/3 mL Solution for Nebulization Incontinence Pad, Liner, Disp Pad ALLERGIES: Allergies Allergen Reactions Bactrim [Sulfamethoxazole-Trimethoprim] Anaphylaxis Trimethoprim Anaphylaxis Aleve [Naproxen Sodium] Rash Per neuro team, patient has tolerated ketorolac in the past Keflex [Cephalexin] Other (See Comments) Racing heart Meloxicam Nausea Only Amlodipine Nausea And Vomiting REVIEW OF SYSTEMS: Per HPI RADIOLOGY & OTHER RESULTS: MRI hip wo contrast left 05/2023 FINDINGS: Bone: Intact with normal marrow signal. Cartilage: Left: Acetabular: Diffuse thinning without focal defect. Femoral: Diffuse thinning without focal defect. Right: Limited evaluation. Symmetric appearance with diffuse cartilage thinning. Effusion: Trace. Labrum: Left: Anterior: Tear with linear fluid signal extending across the labral chondral junction (series 8, image 11). Anterior-superior: Labral chondral junction tear extending from the anterior aspect (series 7, image 24 is present. Posterior-superior: Intact. Posterior: Intact. Tendons: Heterogeneous signal of the gluteus minimus muscle and tendon proximal to the lateral greater trochanter insertion site with associated superficial soft tissue edema (series 8, image 17). Other tendons are intact. Muscle: Bulk and signal are otherwise normal and symmetric. Neurovascular: Symmetric sciatic nerve and bilateral femoral neurovascular bundle. Pelvis: Spacing and alignment are preserved at the sacroiliac joints and pubic symphysis. No free fluid, adenopathy, solid or cystic soft tissue mass. IMPRESSION 1. Degeneration of the left anterior anterosuperior labrum with mild bilateral hip osteoarthropathy. 2. Tendinosis of left gluteus minimus. MRI lumbar spine wo contrast 01/05/2023 FINDINGS: There is mild levoconvex scoliosis of the lumbar spine. There is grade I retrolisthesis of L5 respect to S1 similar to that present on the prior study. Vertebral body heights are normally maintained. Marrow signal is normal with the exception of mixed edematous and fatty discogenic degenerative changes in the endplates about the L5-S1 disc space. These discogenic degenerative changes are substantially greater than those present on the prior study. The conus medullaris is of normal contour and signal characteristics terminating at the level of L1. At T12-L1, L1-2, L2-3, L3-4 there is no disc herniation or evidence of nerve root impingement. At L4-5 there is a minor circumferential disc bulge. There is severe bilateral facet arthropathy. These abnormalities combine to produce mild spinal stenosis with partial effacement of the subarachnoid space and bilateral moderate subarticular recess narrowing. There is mild bilateral neural foramen narrowing. The severity of the spinal canal narrowing is greater than that which had been present on the study of 2018, largely secondary to worsening hypertrophic facet arthropathy. At L5-S1 there is an broad disc protrusion, larger on the left, slightly worsened that present previously. There is greater narrowing of the left subarticular recess. There is mild bilateral facet arthropathy. These abnormalities combine to produce moderate left neural foramen narrowing IMPRESSION Interval worsening of degenerative disc disease at L5-S1 with possible impingement of the left S1 nerve root within the left subarticular recess. Marked interval worsening of bilateral hypertrophic facet arthropathy at L4-5 with worsening of spinal stenosis. The degree of spinal stenosis remains mild. ASSESSMENT & PLAN: This is a 52 yo F with sacroiliitis with positive response to diagnostic R SI joint injection (negative L response) deemed surgical candidate by outside neurosurgeon who is now requesting transition of care to [facility]. I will schedule her to follow up with our spinal surgeon who is performing SI joint fusions for further evaluation. It was my pleasure to have consulted with Ms. Layton today. Thank you again for your referral. Please don't hesitate to contact me if you have any further questions. Sincerely, Eb Peña PA-C, MS Physician Label Press Operator [facility] Department of Neurosurgery [address] [place] [address] CC: Gema Oliveira DO CC: Gema Oliveira DO [facility] [place] [address] This message is confidential, intended only for the named recipient(s) and may contain information that is privileged or exempt from disclosure under applicable law. If you are not the intended recipient(s), you are notified that the dissemination, distribution or copying of this information is strictly prohibited. If you received this message in error, please notify the sender then delete this message. documented in this encounter Plan of Treatment Upcoming Encounters Date Type Department Care Team (Late st Contact Info) Description 09/05/2024 9:00 AM EDT Office Visit Internal Medicine at [place] [id number] Gema Oliveira DO [facility] [place] [address] Scheduled Referrals Name Type Priority Associated Diagnoses Order Schedule Referral to Neurosurgery Outpatient Referral Routine Lumbar back pain Ordered: 08/14/2023 documented as of this encounter Visit Diagnoses Diagnosis Osteoarthritis of spine with radiculopathy, lumbar region Sacroiliitis Sacroiliitis, not elsewhere classified documented in this encounter Care Teams Turbinated Bone Grinder Relationship Specialty Start Date End Date Gema Oliveira DO [facility] [place] [address] PCP - General General Internal Medicine 05/17/23 documented as of this encounter
--- OUTSIDE RECORDS SUMMARY | 2024-07-12 00:27 | XMS_ITS | Encounter Summary ---
Author Organization [facility] Address [facility] [place] [address] Care Team Providers Care Office Technician Name Role Phone Gema Oliveira DO Primary Care Provider +1- [phone] Encounter Details Date Type Department Care Team (Late st Contact Info) Description 12/06/2023 10:30 AM EST Telephone Pre-Admission Testing at [facility] [address] [place] [address] Social History Tobacco Use Types Packs/Day Years [...] a longterm (including now)? Patient refused 02/10/2023 Sex and Gender Information Value Date Recorded Sex Assigned at Not on file Gender Identity Not on file Sexual Orientation Not on file documented as of this encounter Progress Notes * Rosita Centeno RN - 12/06/2023 10:41 AM EST Have you tested positive for COVID in the last 90 days? [x]No []Yes If Yes; Date of positive test: Type of test performed: What were your symptoms: documented in this encounter Plan of Treatment Upcoming Encounters Date Type Department Care Team (Late st Contact Info) Description 09/05/2024 9:00 AM EDT Office Visit Internal Medicine at [address] [address] Gema Oliveira DO [facility] [address] [address] documented as of this encounter Visit Diagnoses Not on filedocumented in this encounter Care Teams Office Technician Relationship Specialty Start Date End Date Gema Oliveira DO [facility] [address] [address] PCP - General General Internal Medicine 05/17/23 documented as of this encounter
--- OUTSIDE RECORDS SUMMARY | 2024-07-12 00:27 | XMS_ITS | Encounter Summary ---
Author Organization [facility] Address [facility] [place] [address] Care Team Providers Care Vegetable Packer Name Role Phone Gema Oliveira DO Primary Care Provider +1- [phone] Reason for Visit * Auth/Cert (Routine) Specialty [...] OPTIME, ANCHOR/SCREW FOR OPPOSING BN-TO-BN OR SOFT [id number] (IMPLANTABLE) Bret Nicholson MD [facility] [place] [address] Referral ID Status Reason Start Date Expiration Date Visits Re quested Visits Authorized [id number] 10/23/2023 1 1 Encounter Details Date Type Department Care Team (Late st Contact Info) Description 12/15/2023 7:25 AM EST Ancillary Procedure Radiology Xray at [facility] [place] [address] Social History Tobacco Use Types Packs/Day Years [...] place to sleep or slept in a snf (including now)? Patient refused 02/10/2023 DH IPV [...] AM EDT Office Visit Internal Medicine at [address] [address] Gema Oliveira DO [facility] [address] [address] documented as of this encounter Procedures Procedure Name Priority Date/Time Associated Diagnosis Comments XR O-ARM NO RAD - OR USE Routine 12/15/2023 11:35 AM EST documented in this encounter Results * XR O-Arm No Rad <1Hr - OR Use (12/15/2023 11:35 AM EST) Narrative Dicom, Auditing User - 12/15/2023 11:36 AM EST This exam is auto-finalizing. No interpretation was done. Bret Nicholson MD IMG FLUORO ORDERABLE S documented in this encounter Visit Diagnoses Not on filedocumented in this encounter Care Teams Vegetable Packer Relationship Specialty Start Date End Date Gema Oliveira DO [facility] [place] [place] [address] PCP - General General Internal Medicine 05/17/23 documented as of this encounter
--- OUTSIDE RECORDS SUMMARY | 2024-07-12 00:27 | XMS_ITS | Encounter Summary ---
Author Organization [facility] Address [facility] [place] [address] Care Team Providers Care Rink Rat Name Role Phone Gema Oliveira DO Primary Care Provider +1- [phone] Reason for Visit * Reason Comments Pre-op Exam Encounter Details Date Type Department Care Team (Late st Contact Info) Description 12/01/2023 2:20 PM EST Office Visit Internal Medicine at [address] [address] Martínez Cason MD [facility] [place] [address] Preop examination; Spinal stenosis of lumbar region with neurogenic claudication Social History Tobacco Use Types Packs/Day Years [...] a fpc (including now)? Patient refused 02/10/2023 Sex and Gender Information Value Date Recorded Sex Assigned at Not on file Gender Identity Not on file Sexual Orientation Not on file documented as of this encounter Last Filed Vital Signs Vital Sign Reading Time Taken Comments Blood Pressure 137/87 12/01/2023 2:17 PM EST Pulse 107 12/01/2023 2:17 PM EST Temperature 36.2 ??C (97.1 ??F) 12/01/2023 2:17 PM ES T Respiratory Rate - - Oxygen Saturation 99% 12/01/2023 2:17 PM EST Inhaled Oxygen Concentration - - Weight 120.7 kg (266 lb 3.2 oz) 12/01/2023 2:17 PM EST Height 174.5 cm (5' 8.7) 12/01/2023 2:17 PM EST Body Mass Index 39.65 12/01/2023 2:17 PM EST documented in this encounter Patient Instructions * Patient Instructions* Martínez Cason MD - 12/01/2023 2:20 PM EST - Hold Trulicity 1 week before surgery - continue metoprolol including morning of surgery - Hold lisinopril and HCTZ morning of surgery - Hold Metformin the morning of surgery documented in this encounter Progress Notes * Martínez Cason MD - 12/01/2023 2:20 PM EST I am being asked to provide preoperative evaluation for Tracie Layton in anticipation of their upcoming surgery. Indication for Surgery:Chronic LBP with spinal stenosis Date of Surgery: 12/15/23 Surgical Procedure: ARTHRODESIS, COMB. POST OR POSTEROLAT W/LAMI &/OR DISC SINGLE INTERSPACE; LUMBAR (WRVU 26.8) LAMINECTOMY,FACETECTOMY,OR FORAMINOTOMY,DURING POSTERIOR INTERBODY ARTHRODESIS,LUMBAR; SINGLE VERTEBRAL SEGMENT Surgeon: Dr. Nicholson HPI: PMH - DM2 (last A1c 7.5%), tobacco use disorder, obesity (BMI 39), HTN, HLD Quit smoking in October with the assistance of Colleen. Still going well. It has been tough but she has been holding on. A1c 7.5% in October. Takes metformin 1000mg daily and Trulicity 0.75mg daily. Activity limited by her back but can do nps without stopping. Her legs/feet go numb ifshe tries to ambulate for prolonged distances. Concerns about surgery: just nervous Previous Studies: PFT: 2015 - Impression: No evidence of restrictive ventilatory defect. Uncorrected single-breath diffusion capacity for CO was normal. Stress Test: 2020 - SUMMARY: 1. BASELINE: Normal global and segmental biventricular systolic function with an estimated ejectionfraction of 60%. 2. STRESS: The patient received incremental doses of Dobutamine to a peak of 30 mcg/kg/min with 0.5mg of atropine, achieving a heart rate of 153bpm (89% max pred.), and peak BP of 139/99 mmHg. With stress she was asymptomatic, hemodynamically stable, had no arrhythmias and developed no significant ST-TW changes. 3. ECHOCARDIOGRAPHIC FINDINGS: Global left ventricular systolic function appears hyperdynamic.Thereare no left ventricular segmental wall motion abnormalities. 4. IMPRESSION: Normal dobutamine stress echocardiogram. There is no clinical or echocardiographic evidence of ischemia at a diagnostic level of stress. EK/23 - Sinus tachycardia Nonspecific ST and T wave abnormality Abnormal ECG When compared with ECG of 27-OCT-2022 08:42, No significant change was found Echo: Cardiac Cath: General: Feeling well, no fevers or chills, no weight loss, night sweats HEENT: No recent upper respiratory infection, sinusitis. No recent visual changes Chest: No shortness of breath, new cough or wheezing, no dyspnea on exertion, orthopnea or paroxysmal nocturnal dyspnea Cardiac: No chest pains, palpitations, uncontrolled angina. No recent CT, arrhythmia or new valvular disorder GI: No complaints. Denies N/V/D/C. No history of aspiration : No irritative voiding symptoms, no dysuria, frequency or hematuria Ext: No swelling or other complaints apart from HPI Surgical/ Anesthetic Complications: No History of anesthetic or post-operative complications, no history of difficult intubation or extubation Sleep Apnea Assessment: STOP BANG 1 point for each S- Snoring T- Tired O- Observed apnea (stopped breathing during sleep) P- Blood Pressure (elevated) B- BMI >35 A- Age > 50 N- Neck Circuference > 15.7 inches G- Gender (male) Score: 4 Patient Active Problem List Diagnosis Code Bilateral occipital neuralgia M54.81 Post-traumatic headache G44.309 Esophageal reflux (GERD) K21.9 Smoking F17.200 PTSD (post-traumatic stress disorder) F43.10 Agoraphobia F40.00 ADD (attention deficit disorder) (ADHD) F98.8 Vitamin D deficiency E55.9 Depression F32.A Adult BMI 40.0-44.9 kg/sq m Z68.41 Mixed stress and urge urinary incontinence N39.46 Erosion of vaginal mesh T83.711A Osteoarthritis of spine with radiculopathy, lumbar region M47.26 Hypertension, essential, benign I10 Type 2 diabetes mellitus without complication, without long-term current use of insulin E11.9 History of cervical cancer Z85.41 Alcohol abuse F10.10 H/O suicide attempt Z91.51 Obstructive lung disease (generalized) J44.9 Pulmonary nodules R91.8 Anxiety F41.9 Pelvic pain R10.2 S/P laparoscopic assisted vaginal hysterectomy (LAVH) Z90.710 Class 3 severe obesity in adult E66.01 Hyperlipidemia E78.5 Allergies Allergen Reactions Bactrim [Sulfamethoxazole-Trimethoprim] Anaphylaxis Trimethoprim Anaphylaxis Aleve [Naproxen Sodium] Rash Per neuro team, patient has tolerated ketorolac in the past Keflex [Cephalexin] Other (See Comments) Racing heart Meloxicam Nausea Only Amlodipine Nausea And Vomiting Family History: No familial history of clotting or bleeding disorders, otherwise impertinent Family History Problem Relation Age of Onset Brain Tumor Mother metastatic from lung Lung Cancer Mother No Known Problems Father Coronary Artery Disease Early Onset Brother 43 smoker Breast Cancer Maternal Aunt 60 Ovarian Cancer Neg Hx Colorectal Cancer Neg Hx Pancreatic Cancer Neg Hx Endometrial Cancer Neg Hx Medications 12/01/23 1416 Medication Sig Taking? dulaglutide (Trulicity) 0.75 mg/0.5 mL Pen Injector INJECT 0.75MG UNDER THE SKIN ONCE WEEKLY Yes metoprolol succinate XL (Toprol-XL) 50 mg ER 24 hr tablet Take 1 tablet by mouth daily. Yes ondansetron ODT (Zofran-ODT) 4 mg disintegrating tablet DISSOLVE ONE TABLET ON THE TONGUE EVERY 8 HOURS NEEDED FOR NAUSEA Yes pramipexole (Mirapex) 0.125 mg tablet Take three tablets by mouth nightly Yes metFORMIN (Glucophage) 1,000 mg tablet Take 1 tablet by mouth daily. Yes busPIRone (Buspar) 5 mg tablet Take 1 tablet by mouth 3 times daily. Yes hydroCHLOROthiazide (Hydrodiuril) 25 mg tablet Take 1 tablet by mouth daily. Yes omeprazole (PriLOSEC) [address] capsule Take 1 capsule by mouth daily. Yes lisinopriL (Zestril) 40 mg tablet TAKE ONE TABLET BY MOUTH EVERY DAY Yes Trintellix 20 mg tablet TAKE ONE TABLET BY MOUTH EVERY DAY Yes blood sugar diagnostic strips Strip 1 strip by Other route 4 times daily. Use as instructed Prefersone touch Ultra, but make sure strips ordered match machine dispensed Yes Ventolin HFA 90 mcg/actuation HFA Aerosol Inhaler INHALE TWO PUFFS INTO THE LUNGS EVERY 4 HOURS NEEDED FOR WHEEZING Yes varenicline (Chantix) 1 mg tablet Take 1 tablet by mouth 2 times daily (with meals). This medication should be taken in the middle of your largest meal(s) with a full glass of water. DO NOT TAKE ON AN EMPTY STOMACH. Indications: stop smoking Yes Blood-Glucose Meter Misc 1 kit by [facility].(Non-Drug; Combo Route) route 4 times daily. Prefers one touch Ultra, but make sure strips ordered match machine dispensed Yes Advair Diskus 100-50 mcg/dose Disk with Device Inhale 1 puff into the lungs every 12 hours. Brand name Yes diclofenac (Voltaren) 1 % Gel APPLY TOPICALLY TO THE AFFECTED AREA FOUR TIMES DAILY NEEDED Yes ipratropium-albuterol (DUONEB) 0.5 mg-3 mg(2.5 mg base)/3 mL Solution for Nebulization INHALE THE CONTENTS OF 1 VIAL BY NEBULIZATION EVERY 4 HOURS NEEDED Yes Incontinence Pad, Liner, Disp Pad 1 each by Mis.(Non-Drug; Combo Route) route every 4 hours as needed (for incontinence). Yes BP 137/87 (BP Location (NBP): Left arm, Patient Position: Sitting, BP Cuff Sizes: Large Adult (32-43 cm)) Pulse (!) 107 Temp 36.2 ??C (97.1 ??F) (Temporal) Ht 174.5 cm (5' 8.7) Wt 120.7 kg (266 lb 3.2 oz) LMP 10/01/2019 (Approximate) SpO2 99% BMI 39.65 kg/m?? Body mass index is 39.65 kg/m??. Patient reported measures: Pain: Physical Health: Fall: 10/23/2023 6:42 PM PHQ-9 Score Only - All PHQ - 9 Score 8 (Mild Depression) PHQ - 9 Score (Patient) 8 (Mild Depression) General: comfortable appearing, NAD, A+O x 3 HEENT: MMM, good dentition [ ] Mallampati 1- entire soft palate clearly visible [ x] Mallampati 2- uvula clearly visible [ ] Mallampati 3- only base of uvula is visible [ ] Mallampati 4- Soft palate is obscured Neck:no JVD Chest: CTAB, no w/r/r. Good air entry to both lung bases Cardio: normal rate, regular rhythm, no m/g/r Ext: No edema, clubbing or cyanosis. Good cap refill at distal extremities Neuro: Grossly non-focal Assessment: Condition Examples X None Unstable coronary syndromes Unstable or severe angina Recent CT Decompensated HF Significant arrhythmias High-grade AV block Mobitz II AV block Third-degree AV heart block Symptomatic ventricular arrhythmias SVT (including A-fib) with uncontrolled ventricular rate Symptomatic bradycardia Newly recognized ventricular tachycardia Severe valvular disease Severe aortic stenosis Symptomatic mitral stenosis Severe Liver Disease MELD score >10 Uncontrolled Respiratory Disease COPD or asthma flare, pneumonia Show Stoppers: Any of the above present No Surgical Risk Surgical risk Procedure Examples High / Vascular Major emergency surgery Aortic and other major vascular surgery Peripheral vascular surgery Intermediate Intraperitoneal and intrathoracic Carotid endarterectomy Head and neck surgery Orthopedic surgery (not same day) Prostate surgery Low Endoscopic procedures Superficial procedures Cataract surgery Breast surgery Ambulatory surgery (includes most arthroscopies) Functional Capacity If intermediate or high risk surgery enter Mets Examples <4 Perform ADL's Walk indoors Walk a block at 2-3 mph >4 Run a short distance Scrub floors / move heavy furniture Moderate recreational activities Clinical Risk Factors If intermediate or high risk surgery and not able to exercise > 4 mets enter RISK FACTOR STRATIFICATION FOR PATIENTS UNABLE TO EXERCISE BEYOND 4 METS x none History of Ischemic heart disease History of compensated or prior heart failure History of cerebrovascular disease or TIA Diabetes requiring Insulin Renal Insufficiency (creatinine >2.0) Higher Risk Procedure (intraperitoneal, intrathoracic, vascular) Clinical Risk Factors Surgical Risk Further Testing 3 or more High / Vascular YES 3 or more Intermediate HR Control, consider non-invasive testing 1 or 2 ANY HR Control, consider non-invasive testing x None ANY NO Otherwise not relevant Cardiac Evaluation & Care Plan Description Recommendations Disposition Low risk surgery (to include same day orthopedic procedures) Proceed with planned surgery Int. Risk Surgery w/ METS >= 4 Proceed with planned surgery Int. Risk Surgery w/ METS < 4 Assess risk factors Consider pre-procedural testing if it would exchange specialist (i.e. if you would do if not undergoing operation) Perioperative Testing History Action Intermediate risk procedure with 1+ clinical risk factors, or patient without recent EKG ( x) Preoperative EKG Prior history or concern for anemia, history of clotting or bleeding disorder (should not be ordered routinely) ( ) CBC ( ) Coagulation studies x Pt on medications: Digoxin, Juventino-I/ARB, diuretics Patients undergoing urologic procedure w/ bladder irrigation (x ) Electrolytes/creatinine x Pts with Diabetes or Risk Factors for Diabetes ( ) fasting BG ( x) HbA1c (if not within last 3 months) None of the above No testing unless clinically indicated Perioperative Medication Management Medication Change? Medication Usual Action Considerations Aspirin/NSAID Stop 7 days prior to surgery Not necessary to stop prior to most low risk surgeries Clopidogrel Stop 7 days prior to surgery Stop > 6 months after bare metal stent Stop >12 months after Drug eluting stent If unsure, discuss with cardiology Warfarin Depending on clinical situation Low Molecular Weight Heparin Bridge if: [ ] Afib with CHADS2 score > 3 [ ] Prior stroke with warfarin interruption [ ] DVT or PE within 12 months or severe thrombophilia (Protein C/S deficiency, antithrombin 3 deficiency, antiphospholipid antibody syndrome) [ ] Mitral Valve Prosthesis [ ] Bi-leaflet Aortic Valve Prosthesis + Afib, history of stroke, CHF, Diabetes, hypertension Warfarin should be stopped 5 days prior to surgery, and LMWH initiated 3 days prior and continued until Postoperative INR is in therapeutic range. No Low Molecular Weight Heparin Bridge Necessary if: [ ] CHADS2 is 2 or less and no history of stroke/tia, discuss risk/benefit [ ] DVT and PE greater than 12 months prior and no risk factors (including factor 5 leiden heterozygotes) [ ] bileaflet aortic valve prosthesis without above risk factors Dabigatran Stop 5 days prior, no bridge necessary May not need to stop for low risk surgery Rivaroxaban/Apixaban Stop 24/48 hrs before surgery, no bridge May not need to stop for low risk surgery x Diuretics, Juventino-I, ARB, Hold day of surgery May not need to hold for low risk surgery x Beta Fide, Statin, Calcium Channel Blockers, Nitrates Continue For all Surgery Types x Oral Diabetes Meds Hold Morning of surgery Monitor luis armando-operatively Glargine Give the morning of surgery Consider reducing if Hypoglycemia NPH insulin Decrease dose by 50% on day of surgery Recommend more frequent monitoring if poorly controlled Steroids Continue if <20 mg/day prednisone or any dose if low risk surgery If >20 mg/day or intermediate/high risk surgery, discuss with Endocrinology Fellow Summary: Cardiac Risk Stratification: [ x ] Intermediate Risk Surgery > 4 Mets: Proceed to OR Pulmonary Risk Reduction: [ x ] Incentive Spirometry Reviewed Pre-Op Testing Ordered: - EKG today reviewed. Had CMP, CBC in September and A1c in October. Medication Changes: - Hold Trulicity 1 week before surgery - continue beta fide including morning of surgery - Hold lisinopril and HCTZ morning of surgery - hold Metformin the morning of surgery documented in this encounter Plan of Treatment Upcoming Encounters Date Type Department Care Team (Late st Contact Info) Description 09/05/2024 9:00 AM EDT Office Visit Internal Medicine at [address] [address] Geam Oliveira DO [facility] GENER[facility] [place] [address] documented as of this encounter Procedures Procedure Name Priority Date/Time Associated Diagnosis Comments EKG 12-LEAD Routine 12/01/2023 3:29 PM EST Spinal stenosis of lumbar region with neurogenic claudication documented in this encounter Results * EKG 12 Lead (12/01/2023 3:29 PM EST) Ventricular rate 100 BPM MUSE SYSTEM Atrial Rate 100 BPM MUSE SYSTEM P-R Interval 128 ms MUSE SYSTEM QRS Duration 74 ms MUSE SYSTEM Q-T Interval 366 ms MUSE SYSTEM QTC Calculated (Bezet) 472 ms MUSE SYSTEM Calculated P [place] 56 degrees MUSE SYSTEM Calculated R [place] 26 degrees MUSE SYSTEM Calculated T [place] 6 degrees MUSE SYSTEM INTERPRETATION Normal sinus rhythm Nonspecfic ST segment changes Abnormal ECG When compared with ECG of 14-JUN-2023 15:03, No significant change was found Confirmed by MD TABITHA, JASWINDER ([id number]) on 12/01/2023 3:28:15 PM MUSE SYSTEM 12/01/2023 3:29 PM EST 12/01/2023 3:28 PM EST Ragini Unger MD ECG ORDERABLES MUSE SYSTEM documented in this encounter Visit Diagnoses Diagnosis Preop examination Preoperative examination, unspecified Spinal stenosis of lumbar region with neurogenic claudication Spinal stenosis, lumbar region, with neurogenic claudication documented in this encounter Care Teams Rink Rat Relationship Specialty Start Date End Date Gema Oliveira DO [facility] GENER[facility] [place] [address] PCP - General General Internal Medicine 05/17/23 documented as of this encounter
--- OUTSIDE RECORDS SUMMARY | 2024-07-12 00:27 | XMS_ITS | Encounter Summary ---
Author Organization [facility] Address [facility] [place] [address] Care Team Providers Care Assembly Riveter Name Role Phone Gema Oliveira DO Primary Care Provider +1- [phone] Reason for Visit * Reason Onset Date Comments Appointment 08/31/2023 Encounter Details Date Type Department Care Team (Late st Contact Info) Description 08/31/2023 Telephone [place] [address] Eb Peña PA [facility] [place] [address] Appointment Social History Tobacco Use Types Packs/Day [...] group home (including now)? Patient refused 02/10/2023 Sex and Gender Information Value Date Recorded Sex Assigned at Not on file Gender Identity Not on file Sexual Orientation Not on file documented as of this encounter Miscellaneous Notes * Telephone Encounter - Ana Rosa Ba - 08/31/2023 9:14 AM EDT Called pt scheduled for 10/26 at [facility] offered [facility] sooner pt declined Tracie Layton - 08/30/23 Eb Peña PA Sent: MonAugust 30, 2023 4:33 PM To: [facility] Neurosurgery Ryan Follow-up and Dispositions Check-out Note: Please schedule appointmnet with Dr. Nicholson documented in this encounter Plan of Treatment Upcoming Encounters Date Type Department Care Team (Late st Contact Info) Description 09/05/2024 9:00 AM EDT Office Visit Internal Medicine at [address] [address] Gema Oliveira, [facility] [place] [address] documented as of this encounter Visit Diagnoses Not on filedocumented in this encounter Care Teams Assembly Riveter Relationship Specialty Start Date End Date Gema Oliveira DO [facility] [place] [address] PCP - General General Internal Medicine 05/17/23 documented as of this encounter
--- OUTSIDE RECORDS SUMMARY | 2024-07-12 00:27 | XMS_ITS | Encounter Summary ---
Author Organization [facility] Address [facility] [place] [address] Care Team Providers Care Hot End Operator Name Role Phone Gema Oliveira DO Primary Care Provider +1- [phone] Reason for Visit * Reason Onset Date Comments Medication Refill 11/05/2023 Encounter Details Date Type Department Care Team (Late st Contact Info) Description 11/05/2023 Refill Internal Medicine at [address] [id number] Gema Oliveira, DO [facility] [place] [address] Type 2 diabetes mellitus without complication, unspecified whether fci insulin use; Nausea without vomiting Social History Tobacco Use [...] a assisted (including now)? Patient refused 02/10/2023 Sex and Gender Information Value Date Recorded Sex Assigned at Not on file Gender Identity Not on file Sexual Orientation Not on file documented as of this encounter Plan of Treatment Upcoming Encounters Date Type Department Care Team (Late st Contact Info) Description 09/05/2024 9:00 AM EDT Office Visit Internal Medicine at [place] [id number] Gema Oliveira DO [facility] [place] [address] documented as of this encounter Visit Diagnoses Diagnosis Type 2 diabetes mellitus without complication, unspecified whether fci insulin use Nausea without vomiting documented in this encounter Care Teams Hot End Operator Relationship Specialty Start Date End Date Gema Oliveira DO [facility] [address] [address] PCP - General General Internal Medicine 05/17/23 documented as of this encounter
--- OUTSIDE RECORDS SUMMARY | 2024-07-12 00:27 | XMS_ITS | Encounter Summary ---
Author Organization [facility] Address [facility] [place] [address] Care Team Providers Care Farmer Cash Grain Name Role Phone Gema Oliveira DO Primary Care Provider +1- [phone] Reason for Visit * Reason Onset Date Comments Medication Refill 12/04/2023 Encounter Details Date Type Department Care Team (Late st Contact Info) Description 12/04/2023 Refill Internal Medicine at [address] [address] Gema Oliveira, DO [facility] [address] Nausea without vomiting Social History Tobacco Use [...] encounter Miscellaneous Notes * Telephone Encounter - Archana Leon RN - 12/04/2023 7:16 AM EST Prescription Renewal Request Name: Tracie Layton : 1970 Requested Prescriptions Pending Prescriptions Disp Refills ondansetron ODT (Zofran-ODT) 4 mg disintegrating tablet 0 Sig: DISSOLVE ONE TABLET ON THE TONGUE EVERY 8 HOURS NEEDED FOR NAUSEA Date of Encounter last in This Dept (If need an appointment send to secretaries to schedule): 12/01/23 with Martínez Cason MD Next Encounter in This Dept: 01/05/2024 Date of Last Refill (for each medication): 11/06/23 #20/0 Medication category requirements (labs etc): na Status of request: Not pended, message sent to Provider Allergies Allergen Reactions Bactrim [Sulfamethoxazole-Trimethoprim] Anaphylaxis Trimethoprim Anaphylaxis Aleve [Naproxen Sodium] Rash Per neuro team, patient has tolerated ketorolac in the past Keflex [Cephalexin] Other (See Comments) Racing heart Meloxicam Nausea Only Amlodipine Nausea And Vomiting Archana Leon, RN 12/04/23 7:16 AM documented in this encounter Plan of Treatment Upcoming Encounters Date Type Department Care Team (Late st Contact Info) Description 09/05/2024 9:00 AM EDT Office Visit Internal Medicine at [address] [address] Gema Oliveira DO [facility] [address] [address] documented as of this encounter Visit Diagnoses Diagnosis Nausea without vomiting documented in this encounter Care Teams Farmer Cash Grain Relationship Specialty Start Date End Date Gema Oliveira DO [facility] [place] [address] PCP - General General Internal Medicine 05/17/23 documented as of this encounter
--- OUTSIDE RECORDS SUMMARY | 2024-07-12 00:27 | XMS_ITS | Encounter Summary ---
Author Organization [facility] Address [facility] [place] [address] Care Team Providers Care Plastic Dolls Mold Filler Name Role Phone Gema Oliveira DO Primary Care Provider +1- [phone] Encounter Details Date Type Department Care Team (Late st Contact Info) Description 09/28/2023 8:40 AM EST [place] [address] Bret Nicholson MD [facility] [place] [address] Chronic right-sided low back pain with sciatica, sciatica laterality unspecified; Spondylolisthesis of lumbar region Social History Tobacco [...] a detention (including now)? Patient refused 02/10/2023 Sex and Gender Information Value Date Recorded Sex Assigned at Not on file Gender Identity Not on file Sexual Orientation Not on file documented as of this encounter Last Filed Vital Signs Vital Sign Reading Time Taken Comments Blood Pressure 152/94 09/28/2023 8:37 AM EST Pulse 115 09/28/2023 8:37 AM EST Temperature 35.6 ??C (96.1 ??F) 09/28/2023 8:37 AM ES T Respiratory Rate - - Oxygen Saturation 97% 09/28/2023 8:37 AM EST Inhaled Oxygen Concentration - - Weight 120.7 kg (266 lb) 09/28/2023 8:37 AM EST Height 175.3 cm (5' 9) 09/28/2023 8:37 AM EST Body Mass Index 39.28 09/28/2023 8:37 AM EST documented in this encounter Patient Instructions * Patient Instructions* Ladonna Valdez MA - 09/28/2023 8:40 AM EST Our office will be in contact to get surgery scheduled. You will need to see your family doctor for pre-op health clearance and pre-op lab work/testing within 1 month of your surgery date if specified by your surgeon. If you have not heard from our office in 1-2 weeks for scheduling please call [phone] or [email or web address] with questions or concerns. 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 She has had back pain for roughly 20 years. It began when she fell from a hammock onto concrete. Her current pain is located primarily to the midline and right of midline in the lower lumbar region. It radiates to the hips, currently right more than left. Her pain does not radiate down the legs. It is made worse with prolonged maintenance of a single posture or with prolonged upright activity. She has had a trial ofinjections along with various low back exercises and multiple medications. None of those treatmentshave provided lasting relief. Allergies: Allergies Allergen Reactions Bactrim [Sulfamethoxazole-Trimethoprim] Anaphylaxis Trimethoprim Anaphylaxis Aleve [Naproxen Sodium] Rash Per neuro team, patient has tolerated ketorolac in the past Keflex [Cephalexin] Other (See Comments) Racing heart Meloxicam Nausea Only Amlodipine Nausea And Vomiting Meds: Prior to Admission medications Medication Sig Start Date End Date Taking? Authorizing Provider ondansetron ODT (Zofran-ODT) 4 mg disintegrating tablet DISSOLVE ONE TABLET ON THE TONGUE EVERY 8 HOURS NEEDED FOR NAUSEA 09/18/23 Yes Gema Oliveira DO pramipexole (Mirapex) 0.125 mg tablet Take three tablets by mouth nightly 08/14/23 Yes Gema Oliveira DO metFORMIN (Glucophage) 1,000 mg tablet Take 1 tablet by mouth daily. 08/14/23 Yes Gema Oliveira, busPIRone (Buspar) 5 mg tablet Take 1 tablet by mouth 3 times daily. 08/14/23 Yes Gema Oliveira, hydroCHLOROthiazide (Hydrodiuril) 25 mg tablet Take 1 tablet by mouth daily. 08/13/23 Yes Gema Oliveira, DO dulaglutide (Trulicity) 0.75 mg/0.5 mL Pen Injector INJECT 0.75MG UNDER THE SKIN ONCE WEEKLY 07/15/23 Yes Gema Oliveira, omeprazole (PriLOSEC) [address] capsule Take 1 capsule by mouth daily. 06/14/23 Yes Abbe Oliveira DO lisinopriL (Zestril) 40 mg tablet TAKE ONE TABLET BY MOUTH EVERY DAY 05/16/23 Yes Tasneem Galdamez MD Trintellix 20 mg tablet TAKE ONE TABLET BY MOUTH EVERY DAY 05/16/23 Yes Tasneem Galdamez MD blood sugar diagnostic strips Strip 1 strip by Other route 4 times daily. Use as instructed Prefersone touch Ultra, but make sure strips ordered match machine dispensed 04/27/23 Yes Tasneem Galdamez MD Ventolin HFA 90 mcg/actuation HFA Aerosol Inhaler INHALE TWO PUFFS INTO THE LUNGS EVERY 4 HOURS NEEDED FOR WHEEZING 03/20/23 Yes Tasneem Galdamez MD varenicline (Chantix) 1 mg tablet Take 1 tablet by mouth 2 times daily (with meals). This medication should be taken in the middle of your largest meal(s) with a full glass of water. DO NOT TAKE ON AN EMPTY STOMACH. Indications: stop smoking 02/10/23 Yes Tasneem Galdamez MD metoprolol succinate XL (Toprol-XL) 25 mg Tablet Sustained Release 24 hr Take 1 tablet by mouth daily. 12/28/22 Yes Tasneem Galdamez MD Blood-Glucose Meter Misc 1 kit by Mis.(Non-Drug; Combo Route) route 4 times daily. Prefers [...] DAILY NEEDED 10/12/21 Yes Tasneem Galdamez MD ipratropium-albuterol (DUONEB) 0.5 mg-3 mg(2.5 mg base)/3 mL Solution for Nebulization INHALE THE CONTENTS OF 1 VIAL BY NEBULIZATION EVERY 4 HOURS NEEDED 11/27/19 Yes Marguerite Riley MD Incontinence Pad, Liner, Disp Pad 1 each by Misc.(Non-Drug; Combo Route) route every 4 hours as needed (for incontinence). 10/03/19 Yes Marguerite Riley MD PMHx: Past Medical History: Diagnosis Date Agoraphobia Alcohol abuse Diabetes H/O suicide attempt 10/29/2014 Overdose in 1999 Hip problem History of cervical cancer 2001 s/p LEEP??? in [place] HTN (hypertension) Post-traumatic headache 05/31/2014 fell out of a hammock PSHx: Past Surgical History: Procedure Laterality Date CERVIX SURGERY LEEP SECTION x2 CT GUIDED INJECTION SI JOINT 03/21/2023 CT Guided Injection SI Joint 03/21/2023 Margi Gomez MD [facility] RAD CT SCAN ENDOMETRIAL ABLATION HYSTERECTOMY laparoscopic for abnormaluterine bleeding PRO COLONOSCOPY, REMV LESN, SNARE N/A 06/11/2015 COLONOSCOPY, POLYPECTOMY, REMOVAL LESION BY SNARE performed by Larry Ryan MD at [facility] ENDOSCOPY PRO REMV/REVS SLING FOR STRES INCONTINENCE N/A 06/06/2017 SLING, REVISEOR REMOVE, REPLACE, VAGINALAPPROACH, SYNTHETIC\FASCIA (WRVU 11.15) performed by Frankie Richards MD at [facility] OSC PRO SLING OPER STRES INCONTINENCE N/A 06/08/2016 URETHRAL SUSPENSION, SLING\FASCIA OR SYNTHETIC performed by Frankie Richards MD at [facility] MAIN OR PRO UPPER GI ENDOSCOPY, BIOPSY 01/08/2014 EGD WITH BIOPSY performed by Ilya Whitney MD at [facility] ENDOSCOPY PRO UPPER GI ENDOSCOPY, BIOPSY N/A 06/21/2017 UPPER GASTROINTESTINAL ENDOSCOPY,WITH BIOPSY SINGLE OR MULTIPLE (WRVU 2.49) performed by Rickie Pineda MD at [facility] ENDOSCOPY PRO UPPER GI ENDOSCOPY, DIAGNOSTIC N/A 06/21/2017 EGD, UPPER GI ENDOSCOPY performed by Rickie Pineda MD at [facility] ENDOSCOPY TUBAL LIGATION 1992 Fam HX: Family History Problem Relation Age of Onset Brain Tumor Mother metastatic from lung Lung Cancer Mother No Known Problems Father Coronary Artery Disease Early Onset Brother 43 smoker Breast Cancer Maternal Aunt 60 Ovarian Cancer Neg Hx Colorectal Cancer Neg Hx Pancreatic Cancer Neg Hx Endometrial Cancer Neg Hx Review of systems: She does not endorse any bowel or bladder dysfunction. Neurological Exam: Mental Status: Alert and oriented Attention and concentration are normal. Language is fluent. Fund of knowledge is appropriate. Motor: Motor strength in the lower extremities is normal with the exception of the right quadricepswhich is 4+/5. Reflexes: The left knee jerk is 2+, the right knee jerk is 1+, ankle jerks are absent bilaterally. Plantar responses are flexor. There is no clonus. Sensory: There is diminished pinprick appreciation along the medial aspect of the right calf and onthe dorsum of the right foot. Straight leg raise: Negative bilaterally MARIA G testing: Negative bilaterally Gait: Slow but symmetric and overall unremarkable. Studies Reviewed: I personally reviewed the images from her lumbar MRI and her lumbar x-rays with flexion-extension views. Her lumbar MRI shows severe facet arthropathy and moderately severe spinal stenosis at the L4-5 level. The L5-S1 there is loss of disc height and moderate left-sided neuroforaminal narrowing. On the plain x-rays, there is a spondylolisthesis at L4-5. It is 6 mm in flexion and4 mm in extension. Though the spondylolisthesis is stable on the flexion- extension views, on the MRI, done with the patient in the supine position, there is no malalignment at L4-5. She therefore hasinstability at that level. Assessment/Plan: She has mechanical low back pain without radiculopathy. I think she is likely to benefit from minimally invasive transforaminal interbody fusion and instrumentation at the L4-5 level.The surgical procedure, as well as the risks, benefits, and alternatives to surgery were described in detail. The risks of operation including: Infection, hemorrhage, CSF leak, nerve root injury and neurologic deficit, failure of fusion or failure of hardware, adjacent segment issues, and systemic risks were discussed. The patient acknowledged understanding of the procedure as well as understanding the risks of operation. It was further acknowledged that all questions have been answered. Bret Nicholson MD, FAANS Personal Injury Attorney of Neurosurgery [facility] [email or web address] Bret Nicholson MD, FAANS Personal Injury Attorney of Neurosurgery [facility] [email or web address] documented in this encounter Plan of Treatment Upcoming Encounters Date Type Department Care Team (Late st Contact Info) Description 09/05/2024 9:00 AM EDT Office Visit Internal Medicine at [place] [id number] [facility] [place] [phone] Scheduled Orders Name Type Priority Associated Diagnoses Orde r Schedule XR Lumbar Spine 2 Or 3 Views (Generic) Imaging Routine Chronic right-sided low back pain with sciatica, sciatica laterality unspecified Expected: 09/28/2023, Expires: 10/28/2023 SURGICAL CASE REQUEST NO POSTOP PAIN: ARTHRODESIS, COMB. POST OR POSTEROLAT W/LAMI &/OR DISC SINGLE INTERSPACE; LUMBAR (WRVU 26.8) Procedures Routine One Time for 1 Occurrences starting 09/28/2023 until 09/28/2023 documented as of this encounter Results * (ABNORMAL) Urinalysis without microscopic (10/05/2023 11:51 AM EST) Glucose, Urine Dipstick Negative Negative mg/dL [facility] Protein, Urine Dipstick Negative Negative mg/dL [facility] Bilirubin, Urine Dipstick Negative Negative mg/dL [facility] Comment: Clinical correlation required for positive Urine Bilirubin results as false positive may occur with some drugs and drug related products. If a false positive is suspected a serum total bilirubin should be considered if clinically indicated. Urobilinogen, Urine Dipstick Normal Normal mg/dL [facility] pH, Urn (dipstick) 5.5 5.0 - 8.0 [facility] Blood, Urine Dipstick Negative Negative mg/dL [facility] Ketone, Urine Dipstick Trace(A) Negative mg/dL [facility] Nitrite, Urine Dipstick Negative Negative [facility] Leukocytes, Urine Dipstick Small(A) Negative mcL [facility] Appearance, Urine Dipstick Cloudy(A) Clear [facility] Specific [place] Urine Automated 1.023 1.005 - 1.030 [facility] Color, Urine Dipstick Yellow Yellow [facility] Urine 10/05/2023 11:5 1 AM EST 10/05/2023 11:58 AM EST Narrative Resulting Agency Comment Spec In Lab Bret Nicholson MD URINE ORDERABLES Performing Organization Address [facility] Co de Phone Number [facility] [place] [address] * APTT (10/05/2023 11:39 AM EST) Partial Thromboplastin Time 34 25 - 37 sec [facility] Comment: The PTT is NOT appropriate for heparin monitoring. Use the Anti-Xa level for heparin monitoring (HEP UFH) or LMWH monitoring (HEP LMW). A PTT less than 37 seconds generally indicates adequate hemostasis. Blood 10/05/2023 11:3 9 AM EST 10/05/2023 11:46 AM EST Narrative Resulting Agency Comment Spec In Lab Bret Nicholson MD HEMATOLOGY ORDERABLE S Performing Organization Address [facility] Co de Phone Number [facility] [place] [address] * Prothrombin Time (10/05/2023 11:39 AM EST) Prothrombin Time 11.6 9.4 - 12.5 sec [facility] International Normalization Ratio 1.0 [facility] Comment: An INR <2.0 indicates adequate [...] MD HEMATOLOGY ORDERABLE S Performing Organization Address [facility] Co de Phone Number [facility] [place] [address] * Creatinine (10/05/2023 11:39 AM EST) Creatinine 1.09 0.70 - 1.20 mg/dL [facility] Est Glomerular Filtration Rate 62 >=60 mL/min/1. 73 m?? [facility] Comment: This patient's estimated GFR [...] Nicholson MD CHEMISTRY ORDERABLES Performing Organization Address [facility] Co de Phone Number [facility] [place] [address] * BUN (10/05/2023 11:39 AM EST) Blood Urea Nitrogen 17 8 - 18 mg/dL [facility] Blood 10/05/2023 11:3 9 AM EST 10/05/2023 11:46 AM EST Narrative Resulting Agency Comment Spec In Lab Bret Nicholson MD CHEMISTRY ORDERABLES Performing Organization Address [facility] Co de Phone Number [facility] [place] [address] * Electrolytes panel (10/05/2023 11:39 AM EST) Sodium 143 135 - 145 mmol/L [facility] Potassium 3.7 3.5 - 5.0 mmol/L [facility] Comment: Please note: ??Patients with WBC >100,000 may have falsely elevated Potassium levels. ??For accurate Potassium quantification in these patients send serum separator tube (gold top) for subsequent determinations. ??Contact the Clinical Chemistry Laboratory if there are any questions. Chloride 102 98 - 107 mmol/L [facility] Carbon Dioxide 28 22 - 31 mmol/L [facility] Anion Gap 13 5 - 15 mmol/L [facility] Blood 10/05/2023 11:3 9 AM EST 10/05/2023 11:46 AM EST Narrative Resulting Agency Comment Spec In Lab Bret Nicholson MD CHEMISTRY ORDERABLES Performing Organization Address [facility] Co de Phone Number [facility] [place] [address] * XR Lumbar Spine AP Flexion and [...] who have questions please contact the health director of career services that requested your imaging first. ? Electronically signed by: Dawit Fleming MD, [facility] ([phone]), at 09/28/2023 2:08 PM Narrative 09/28/2023 2:08 PM EST EXAMINATION: XR [...] patients who have questions please contactthe health director of career services that requested your imaging first. Electronically signed by: Dawit Fleming MD, [facility]([phone]), at 09/28/2023 2:08 PM Bret Nicholson MD IMG DX ORDERABLES documented in this encounter Visit Diagnoses Diagnosis Chronic right-sided low back pain with sciatica, sciatica laterality unspecified Spondylolisthesis of lumbar region Acquired spondylolisthesis Chronic right-sided low back pain with sciatica, sciatica laterality unspecified documented in this encounter Care Teams Plastic Dolls Mold Filler Relationship Specialty Start Date End Date Gema Oliveira DO [facility] [place] [address] PCP - General General Internal Medicine 05/17/23 documented as of this encounter
--- OUTSIDE RECORDS SUMMARY | 2024-07-12 00:27 | XMS_ITS | Encounter Summary ---
Author Organization [facility] Address [facility] [place] [address] Care Team Providers Care Factory Lay Out Engineer Name Role Phone Gema Oliveira DO Primary Care Provider +1- [phone] Encounter Details Date Type Department Care Team (Latest Contact Info) Description 12/01/2023 Travel Social History Tobacco Use Types Packs/Day [...] AM EDT Office Visit Internal Medicine at [address] [address] Gema Oliveira DO [facility] [address] [facility] [address] documented as of this encounter Visit Diagnoses Not on filedocumented in this encounter Care Teams Factory Lay Out Engineer Relationship Specialty Start Date End Date Gema Oliveira DO [facility] [place] [address] PCP - General General Internal Medicine 05/17/23 documented as of this encounter
--- OUTSIDE RECORDS SUMMARY | 2024-07-12 00:27 | XMS_ITS | Encounter Summary ---
Author Organization [facility] Address [facility] [place] [address] Care Team Providers Care Grating Machine Operator Name Role Phone Gema Oliveira DO Primary Care Provider +1- [phone] Encounter Details Date Type Department Care Team (Latest Contact Info) Description 10/25/2023 Travel Social History Tobacco Use Types Packs/Day [...] senior living (including now)? Patient refused 02/10/2023 Sex and Gender Information Value Date Recorded Sex Assigned at Not on file Gender Identity Not on file Sexual Orientation Not on file documented as of this encounter Plan of Treatment Upcoming Encounters Date Type Department Care Team (Late st Contact Info) Description 09/05/2024 9:00 AM EDT Office Visit Internal Medicine at [address] [address] Gema Oliveira DO [facility] [address] [address] documented as of this encounter Visit Diagnoses Not on filedocumented in this encounter Care Teams Grating Machine Operator Relationship Specialty Start Date End Date Gema Oliveira DO [facility] [place] [address] PCP - General General Internal Medicine 05/17/23 documented as of this encounter
--- OUTSIDE RECORDS SUMMARY | 2024-07-12 00:27 | XMS_ITS | Encounter Summary ---
Author Organization [facility] Address [facility] [place] [address] Care Team Providers Care Psychiatric Secretary Name Role Phone Gema Oliveira DO Primary Care Provider +1- [phone] Reason for Visit * Reason Onset Date Comments Medication Refill 10/04/2023 Encounter Details Date Type Department Care Team (Late st Contact Info) Description 10/04/2023 Refill Internal Medicine at [address] [phone] Gema Oliveira, DO [facility] [address] Type 2 diabetes mellitus without complication, unspecified whether shelter insulin use; Nausea without vomiting Social History [...] Office Visit Internal Medicine at [place] [phone] Gema Oliveira DO [facility] [address] documented as of this encounter Visit Diagnoses Diagnosis Type 2 diabetes mellitus without complication, unspecified whether shelter insulin use Nausea without vomiting documented in this encounter Care Teams Psychiatric Secretary Relationship Specialty Start Date End Date Gema Oliveira DO [facility] [address] [facility] [address] PCP - General General Internal Medicine 05/17/23 documented as of this encounter
--- OUTSIDE RECORDS SUMMARY | 2024-07-12 00:27 | XMS_ITS | Encounter Summary ---
Author Organization [facility] Address [facility] [place] [address] Care Team Providers Care Radio Sportscaster Name Role Phone Gema Oliveira DO Primary Care Provider +1- [phone] Reason for Visit * Reason Onset Date Comments Medication Refill 10/27/2023 Encounter Details Date Type Department Care Team (Late st Contact Info) Description 10/27/2023 Refill Internal Medicine at [address] [address] Gema Oliveira, DO [facility] [place] [address] Nausea without vomiting; Restless leg Social History Tobacco Use Types Packs/Day [...] a long-term (including now)? Patient refused 02/10/2023 Sex and Gender Information Value Date Recorded Sex Assigned at Not on file Gender Identity Not on file Sexual Orientation Not on file documented as of this encounter Plan of Treatment Upcoming Encounters Date Type Department Care Team (Late st Contact Info) Description 09/05/2024 9:00 AM EDT Office Visit Internal Medicine at [address] [address] Gema Oliveira, [facility] [place] [address] documented as of this encounter Visit Diagnoses Diagnosis Nausea without vomiting Restless leg Restless legs syndrome (RLS) documented in this encounter Additional Health Concerns Infection Onset Date Last Indicated Resolved Time Rule Out Respiratory 12/15/2023 12/15/2023 024 8:51 PM EST Rule Out COVID-19 12/15/2023 12/15/2023 12/15/2023 4:42 PM EST RSV 12/15/2023 12/15/2023 12/25/2023 8:09 PM EST documented as of this encounter Care Teams Radio Sportscaster Relationship Specialty Start Date End Date Gema Oliveira DO [facility] [place] [address] PCP - General General Internal Medicine 05/17/23 documented as of this encounter
--- OUTSIDE RECORDS SUMMARY | 2024-07-12 00:27 | XMS_ITS | Encounter Summary ---
Author Organization [facility] Address [facility] [place] [address] Care Team Providers Care Mannequin Wig Maker Name Role Phone Gema Oliveira DO Primary Care Provider +1- [phone] Encounter Details Date Type Department Care Team (Late st Contact Info) Description 10/26/2023 Orders [place] [address] Gema Oliveira, DO [facility] [address] Hypertension, essential, benign; Hyperlipidemia, unspecified hyperlipidemia type; Restless leg Social History Tobacco Use Types [...] a [facility] (including now)? Patient refused 02/10/2023 Sex and Gender Information Value Date Recorded Sex Assigned at Not on file Gender Identity Not on file Sexual Orientation Not on file documented as of this encounter Plan of Treatment Upcoming Encounters Date Type Department Care Team (Late st Contact Info) Description 09/05/2024 9:00 AM EDT Office Visit Internal Medicine at [address] [address] Gema Oliveira DO [facility] [address] [facility] [address] documented as of this encounter Visit Diagnoses Diagnosis Hypertension, essential, benign Essential hypertension, benign Hyperlipidemia, unspecified hyperlipidemia type Restless leg Restless legs syndrome (RLS) documented in this encounter Care Teams Mannequin Wig Maker Relationship Specialty Start Date End Date Gema Oliveira DO [facility] [place] [address] PCP - General General Internal Medicine 05/17/23 documented as of this encounter
--- OUTSIDE RECORDS SUMMARY | 2024-07-12 00:27 | XMS_ITS | Encounter Summary ---
Author Organization [facility] [place] [address] Care Team Providers Care Child Care Cook Name Role Phone Gema Oliveira DO Primary Care Provider [phone] Reason for Visit * Reason Comments Diabetes 3 month follow up Hypertension 3 month follow up Encounter Details Date Type Department Care Team (Late st Contact Info) Description 10/25/2023 1:30 PM EST Office Visit Internal Medicine at [address] [id number] Gema Oliveira, [facility] [place] [address] Type 2 diabetes mellitus without complication, without long-term current use of insulin; Pre-op evaluation; Type 2 diabetes mellitus without complication, unspecified whether longterm insulin use; Healthcare maintenance; Primary hypertension; At risk for prolonged QT interval syndrome; Nausea without vomiting Social History Tobacco Use [...] place to sleep or slept in a nursing home (including now)? Patient refused 02/10/2023 Sex and Gender Information Value Date Recorded Sex Assigned at Not on file Gender Identity Not on file Sexual Orientation Not on file documented as of this encounter Last Filed Vital Signs Vital Sign Reading Time Taken Comments Blood Pressure 133/86 10/25/2023 1:26 PM EST Pulse 100 10/25/2023 1:26 PM EST Temperature 35.7 ??C (96.2 ??F) 10/25/2023 1:26 PM ES T Respiratory Rate - - Oxygen Saturation 99% 10/25/2023 1:26 PM EST Inhaled Oxygen Concentration - - Weight 120.3 kg (265 lb 3.2 oz) 10/25/2023 1:26 PM EST Height 175.3 cm (5' 9.02) 10/25/2023 1:26 PM ES T reported Body Mass Index 39.15 10/25/2023 1:26 PM EST documented in this encounter Progress Notes * Gema Oliveira, - 10/25/2023 1:30 PM EST Images from the original note were not included. Subjective: Patient ID: Tracie Layton is a 52 y.o. female. Chief Complaint Patient presents with Diabetes 3 month follow up Hypertension 3 month follow up Here for follow up. Last visit ~3 months ago, changes as below: -Increased Mirapex to 3x 0.125 mg tabs nightly (from 2) [RLS] -Tapered down Metformin to QD to improve nausea [dm] -Wanted to evaluate home bp log, see how dash diet/swimming went [htn] -Started Buspar for anxiety -Referred to NSG for sacral pain -- > recommended minimally invasive transforaminal interbody fusion and instrumentation at the L4-5 #Restless Leg Syndrome -under control right now #DM #Nausea -A1c in 07/2023 5.9 -Decreased Metformin, now resolved diarrhea -No nausea as long as Zofran x1 first thing in the morning -~20 wt loss over past few years -No peripheral neuropathy -Has medical records receptionist appt early Dec #HTN -133/86 today (152/94 at last visit) -Checking at home but can't remember numbers (140s/low 90s) -Reports some weight loss, hoping to do more exercise after surgery -Has quit smoking for past 3 weeks #Anxiety -Buspar ineffective reportedly -Has agoraphobia -Had amazing counselor in the past; passed 4 months after mom; hasn't been able to find a new counselor; short term counseling only at [facility] -Quit smoking for past 3 weeks 10/23/2023 Behavioral Health Responses (QBHI) Total PHQ-9 8 (Mild Depression) Total FÉLIX-7 9 (Mild Anxiety) GAD7 Questionnaire Data: last 4 values 03/21/2023 05/01/2023 08/07/2023 10/23/2023 FÉLIX-7: All Responses Nervous, anxious (Pt Questionnaire) Several days More than half the days Nearly every day Several days Nervous, anxious Several days Unable to stop worrying (Pt Questionnaire) Several days More than half the days More than half the days More than half the days Unable to stop worrying More than half the days Worrying about different things (Pt Questionnaire) Several days More than half the days More than half the days Several days Worrying about different things Several days Trouble relaxing (Pt Questionnaire) Several days Several days More than half the days Several days Trouble relaxing Several days Restless (Pt Questionnaire) Several days Several days More than half the days Several days Restless Several days Easily annoyed, irritable (Pt Questionnaire) Several days More than half the days Nearly every day More than half the days Easily annoyed, irritable More than half the days Afraid something awful will happen (Pt Questionnaire) Several days More than half the days Several days Several days Afraid something awful will happen Several days FÉLIX-7 Score (Pt Questionnaire) 7 (Mild Anxiety) 12 (Moderate Anxiety) 15 (Severe Anxiety) 9 (Mild Anxiety) FÉLIX-7 Score 9 PHQ9 Questionnaires Data (Clinic and Pt Entered): last 4 values of depression scores 03/21/2023 05/01/2023 08/07/2023 10/23/2023 PHQ-9 Score Only - All PHQ - 9 Score 8 (Mild Depression) 8 (Mild Depression) 14 (Moderate Depression) 8 (Mild Depression) PHQ - 9 Score (Patient) 8 (Mild Depression) 8 (Mild Depression) 14 (Moderate Depression) 8 (Mild Depression) Objective: BP 133/86 (BP Location (NBP): Left arm, Patient Position: Sitting, BP Cuff Sizes: Large Adult (32-43 cm)) Pulse 100 Temp 35.7 ??C (96.2 ??F) (Temporal) Ht 175.3 cm (5' 9.02) Comment: reported Wt 120.3 kg (265 lb 3.2 oz) LMP 10/01/2019 (Approximate) SpO2 99% BMI 39.15 kg/m?? Wt Readings from Last 3 Encounters: 10/25/23 120.3 kg (265 lb 3.2 oz) 09/28/23 120.7 kg (266 lb) 08/14/23 122 kg (269 lb) General: Patient pleasant, in NAD HENT: EOMI, MMM Cardio: RRR, no m/r/g Pulm: CTA b/l, no wheezes/rhonchi/rales GI: Soft, non-tender MSK: trace edema Neuro: Alert and oriented x3. No focal deficits. Assessment and Plan: Here for follow up DM and HTN #DM #Nausea -Needs repeat EKG for Zofran -- issues with machine today; patient will return in < 2 months forpre-op eval, will get EKG then -Repeat A1c today -Not interested in increasing Trulicity at this time #HTN -Incr Metoprolol to 50 mg -F/up 3 months #Anxiety -Patient will consider whether wants to increase Buspar, no changes at this time * Ragini Unger MD - 10/25/2023 1:30 PM EST I have seen and examined this patient and the case was discussed in person at the time of the visitwith Dr. Oliveira. The assessment and plan were formulated in discussion with me and I agree with them as documented. I have reviewed the history, physical exam, assessment and plan with the resident. Major issues discussed today: Restless legs - on Mirapex with improvement. Type 2 DM - on trulicity 0.75, metformin 1000 qd. On the lower dose of metformin, is having less diarrhea. Still having nausea daily with the Trulicity and taking zofran once daily. HTN - On hctz 25, lisinopril 40, metoprolol succinate 25. checking at home 140's/90 at home. Anxiety/agoraphobia - trial of buspar 5 tid without improvement. Remains on trintellix Low back pain - going to be having L4-5 lumbar surgery in November. Stopped smoking 3 weeks ago . Exam Blood pressure 133/86 P 89 appears comfortable. Om moist Neck supple no lad Lungs few wheezes Heart rrr no mrg Ext tr edema. PHq9 - 8 (last 14), félix 7 - 9 (last 15) HTN - increase metoprolol to 50 mg, cont hctz, lisinopril. Mixed anxiety/depression/PTSD - cont with trintellix and buspar. Check EKG. DM - hemoglobin A1c, ualb, lipids. No change in medications. tob cessation - congratulated on stopping. Cont chantix LBP - will be getting surgery. Hcm - TD, pap next visit. F/up in 3 months. documented in this encounter Plan of Treatment Upcoming Encounters Date Type Department Care Team (Late st Contact Info) Description 09/05/2024 9:00 AM EDT Office Visit Internal Medicine at [address] [address] Gema Oliveira, [facility] [place] [address] Scheduled Orders Name Type Priority Associated Diagnoses Orde r Schedule POCT glycated hemoglobin, total (HA1C) Point of Care Testing Routine Type 2 diabetes mellitus without complication, without long-term current use of insulin Every 3 months for 12 Occurrences starting 10/25/2023 until 10/25/2024, 2 completed documented as of this encounter Procedures Procedure Name Priority Date/Time Associated Diagnosis Comments U ALBUMIN/CRE RATIO Routine 10/25/2023 2 :49 PM EST Type 2 diabetes mellitus without complication, without long-term current use of insulin LDL CHOLESTEROL, DIRECT Routine 10/25/2023 2:49 PM EST LIPID PANEL (REFLEX DIRECT LDL) Routine 10/25/2023 2:49 PM EST Type 2 diabetes mellitus without complication, unspecified whether longterm insulin use POCT GLYCATED HEMOGLOBIN, TOTAL (HA1C) Routine 10/25/2023 2:28 PM EST Type 2 diabetes mellitus without complication, without long-term current use of insulin documented in this encounter Results * (ABNORMAL) POCT glycated hemoglobin, total (HA1C) (06/18/2024 9:03 AM EDT) Hemoglobin A1C, POC 6.2(A) 4.3 - 5.6 % 06/18/2024 9:03 AM EDT Ragini Unger MD POINT OF CARE TEST O RDERABLES * EKG 12 Lead (12/01/2023 3:29 PM EST) Ventricular rate 100 BPM MUSE SYSTEM Atrial Rate 100 BPM MUSE SYSTEM P-R Interval 128 ms MUSE SYSTEM QRS Duration 74 ms MUSE SYSTEM Q-T Interval 366 ms MUSE SYSTEM QTC Calculated (Bezet) 472 ms MUSE SYSTEM Calculated P [place] 56 degrees MUSE SYSTEM Calculated R [place] 26 degrees MUSE SYSTEM Calculated T [place] 6 degrees MUSE SYSTEM INTERPRETATION Normal sinus rhythm Nonspecfic ST segment changes Abnormal ECG When compared with ECG of 14-JUN-2023 15:03, No significant change was found Confirmed by MD LU SALVATORE ([id number]) on 12/01/2023 3:28:15 PM MUSE SYSTEM 12/01/2023 3:29 PM EST 12/01/2023 3:28 PM EST Ragini Unger MD ECG ORDERABLES MUSE SYSTEM * LDL Cholesterol, Direct (10/25/2023 2:49 PM EST) LDL Cholesterol, Direct 108 mg/dL [facility] Comment: Lowest Risk: <100 mg/dL Lower Risk: 100-129 mg/dL Borderline High Risk: 130-159 mg/dL High Risk: 160-189 mg/dL Very High Risk: >wq=794 mg/dL Blood 10/25/2023 2:49 PM EST 10/25/2023 7:38 PM EST Narrative Resulting Agency Comment Spec In Lab Gema Oliveira DO CHEMISTRY ORDERABL ES [facility] [place] [address] * Lipid Panel (Reflex Direct LDL) (10/25/2023 2:49 PM EST) Cholesterol, Total 192 mg/dL [facility] Comment: Lower Risk: <200 mg/dL Average Risk: 200-239 mg/dL Higher Risk: >vb=459 mg/dL Triglyceride 502 mg/dL [facility] Comment: Average Risk/Lower Risk: <150 mg/dL Borderline High Risk: 150-199 mg/dL High Risk: 200-499 mg/dL Very High Risk: >bc=105 mg/dL HDL Cholesterol 28 mg/dL [facility] Comment: Males: ?? Higher Risk: <40 mg/dL Females: ?? Higher Risk: <50 mg/dL LDL Cholesterol Not Calculated [facility] Comment: Calculated LDL value is not valid for triglycerides greater than 400 mg/dl. Lowest Risk: <100 mg/dL Lower Risk: 100-129 mg/dL Borderline High Risk: 130-159 mg/dL High Risk: 160-189 mg/dL Very High Risk: >ca=357 mg/dL Cholesterol/HDL Ratio 6.9 ratio [facility] Lipid Interpretation See Note [facility] Comment: Lipid management should be guided by a patient? s ASCVD risk, goals and preferences. ACC/AHA Guidelines recommend high intensity statin if clinical ASCVD or LDL greater than or equal to 190 mg/dL. http://TimePoints/EQW-MAE-Ajqxtlzdz Adults aged 40-75 with LDL 70-189 mg/dL should have their 10 year ASCVD risk estimated with the ACC/AHA ASCVD risk senior estimator http://tools.acc.org/ODQKZ-Ikcu-Ctyqresnd/ Statin should be discussed if risk greater [...] In Lab Ragini Unger MD CHEMISTRY ORDERABLES [facility] [place] [address] * U Albumin/Cre Ratio (10/25/2023 2:49 PM EST) Albumin / Creatinin Ratio, Urine 8 0 - 29 mcg/mg Cr [facility] Comment: Reference Ranges: <30 mcg/mg: [...] 2, 357? 362 Albumin, Urine 10.8 mg/L [facility] Creatinine, Urine 130 mg/dL [facility] Urine 10/25/2023 2:49 PM EST 10/25/2023 7:36 PM EST Narrative Resulting Agency Comment Spec In Lab Ragini Unger MD URINE ORDERABLES [facility] [place] [address] * (ABNORMAL) POCT glycated hemoglobin, total (HA1C) (10/25/2023 2:28 PM EST) Hemoglobin A1C, POC 7.5(A) 4.3 - 5.6 % 10/25/2023 2:28 PM EST Ragini Unger MD POINT OF CARE TEST O RDERABLES documented in this encounter Visit Diagnoses Diagnosis Type 2 diabetes mellitus without complication, unspecified whether longterm insulin use Pre-op evaluation Preoperative examination, unspecified Healthcare maintenance Routine general medical examination at a health care facility Primary hypertension Unspecified essential hypertension At risk for prolonged QT interval syndrome Nausea without vomiting documented in this encounter Care Teams Child Care Cook Relationship Specialty Start Date End Date Gema Oliveira DO [facility] [place] [address] PCP - General General Internal Medicine 05/17/23 documented as of this encounter
--- OUTSIDE RECORDS SUMMARY | 2024-07-12 00:27 | XMS_ITS | Encounter Summary ---
Author Organization [facility] Address [facility] [place] [address] Care Team Providers Care Box Toe Buffer Name Role Phone Gema Oliveira DO Primary Care Provider [phone] Reason for Visit * Auth/Cert (Routine) Specialty [...] OPTIME, ANCHOR/SCREW FOR OPPOSING BN-TO-BN OR SOFT [id number] (IMPLANTABLE) Bret Nicholson MD [facility] [place] [address] Referral ID Status Reason Start Date Expiration Date Visits Re quested Visits Authorized [id number] 10/23/2023 1 1 Encounter Details Date Type Department Care Team (Late st Contact Info) Description 12/15/2023 7:30 AM EST - 12/15/2023 12:40 PM EST Surgery Operating Room [address] [place] [id number] Bret Nicholson MD [facility] [place] [address] ARTHRODESIS, COMB. POST OR POSTEROLAT W/LAMI &/OR DISC SINGLE INTERSPACE; LUMBAR (WRVU 26.8) Social History Tobacco Use Types Packs/Day Years [...] Sign Reading Time Taken Comments Blood Pressure 111/71 12/15/2023 12:29 PM EST Pulse 93 12/15/2023 12:20 PM EST Temperature 36.4 ??C (97.6 ??F) 12/15/2023 11:[address] Respiratory Rate 17 12/15/2023 12:20 PM EST Oxygen Saturation 96% 12/15/2023 12:29 PM EST Inhaled Oxygen Concentration - - Weight 120.2 kg (265 lb) 12/15/2023 6:35 AM EST Height 172.7 cm (5' 8) 12/15/2023 6:35 AM EST Body Mass Index 40.29 12/15/2023 6:35 AM EST documented in this encounter Discharge Summaries * Eufemia Ballard PA - 12/16/2023 8:37 AM EST Patient Name: Tracie Layton Patient Age: 53 y.o. Admit date: 12/15/2023 Discharge Date and Time: 12/16/2023 Attending Physician: Bret Nicholson MD Discharging Provider: HERNANDEZ Negrete Discharging Service: NEUROSURGERY Operations/Major Procedures: Procedure(s) (LRB): ARTHRODESIS, COMB. POST OR POSTEROLAT W/LAMI &/OR DISC SINGLE INTERSPACE; LUMBAR (WRVU 26.8) (N/A) LAMINECTOMY,FACETECTOMY,OR FORAMINOTOMY,DURING POSTERIOR INTERBODY ARTHRODESIS,LUMBAR; SINGLE VERTEBRAL SEGMENT (WRVU 4.25) (N/A) POSTERIOR SPINAL NON-SEGMENTAL INST.(ONE SPACE) (WRVU 12.52) (N/A) INSERTION INTERBODY BIOMECH DEV TO INTERVEBRAL DISC SPACE, EA INTERSPACE (WRVU 4.25) (N/A) STEREOTACTIC COMPUTER-ASSTD NAVIGATIONAL SPINAL (WRVU 3.75) (N/A) AUTOGRAFT FOR SPINE SURGERY ONLY, SAME INCISION (WRVU *) (N/A) ALLOGRAFT FOR SPINE SURGERY ONLY; MORSELIZED (WRVU *) (N/A) MODIFIER MEDTRONIC-MAGNIFUSE (N/A) MODIFIER MEDTRONIC CATALYFT PL EXPANDABLE INTERBODY SYSTEM (N/A) MODIFIER MEDTRONIC VOYAGER (N/A) MODIFIER [id number] (N/A) Active Hospital Problems: Active Hospital Problems Diagnosis Spondylolisthesis at L4-L5 level Resolved Hospital Problems No resolved problems to display. Active Non Hospital Problems: Active Non-Hospital Problems Diagnosis Type 2 diabetes mellitus without complication, without long-term current use of insulin Hypertension, essential, benign Adult BMI 40.0-44.9 kg/sq m Depression Obstructive lung disease (generalized) Alcohol abuse Osteoarthritis of spine with radiculopathy, lumbar region Esophageal reflux (GERD) PTSD (post-traumatic stress disorder) Agoraphobia ADD (attention deficit disorder) (ADHD) Vitamin D deficiency H/O suicide attempt Erosion of vaginal mesh Mixed stress and urge urinary incontinence Post-traumatic headache Bilateral occipital neuralgia History of cervical cancer Hyperlipidemia Class 3 severe obesity in adult Pelvic pain S/P laparoscopic assisted vaginal hysterectomy (LAVH) Anxiety Pulmonary nodules Smoking History of Presentation: Per review of relevant records 53 y.o. female with a PMH of agoraphobia, anxiety, diabetes, HTN, asthma, GERD, and low back pain, who presented to [facility] for elective L4-5 hemilaminectomy and fusion under the neurosurgery service. Hospital Course: Patient presented 12/15/23 for elective MIS L4-5 TLIF. Incision was closed with Dermabond and PrineoMesh. There were no complications with the procedure. Patient tolerated the procedure well. Intra-op imaging was appropriate. Patient was neurologically stable for duration of hospital course. Patient experienced post op wheezing and tested + for RSV. She was under droplet precaution during overnight stay and remained in stable condition on room air. Patient was discharged home in stable condition on POD#1. At time of discharge patient is afebrile, tolerating a regular diet, ambulating independently, voiding spontaneously, and managing pain with oral pain medications. Important Studies and Lab Data: Labs: Recent Results (from the past 24 hour(s)) POCT Glucose Result Value Ref Range POC Glucose 245 (H) 65 - 199 mg/dL Respiratory Panel PCR Specimen: Nasopharyngeal Swab Result Value Ref Range Resp Panel Source [facility] Swab Resp Panel PCR Positive (A) Negative Adenovirus Not Detected Not Detected Coronavirus HKU1 Not Detected Not Detected Coronavirus NL63 Not Detected Not Detected Coronavirus 229E Not Detected Not Detected Coronavirus OC43 Not Detected Not Detected SARS-CoV-2 Not Detected Not Detected Human Metapneumovirus Not Detected Not Detected Human Rhino/Enterovirus Not Detected Not Detected Influenza A Not Detected Not Detected Influenza B Not Detected Not Detected Parainfluenza 1 Not Detected Not Detected Parainfluenza 2 Not Detected Not Detected Parainfluenza 3 Not Detected Not Detected Parainfluenza 4 Not Detected Not Detected Respiratory Syncytial Virus Detected (A) Not Detected Chlamydophila pneumoniae Not Detected Not Detected Mycoplasma pneumoniae Not Detected Not Detected Rapid Influenza A/B and COVID-19 by PCR (APD/SHARON/NLH/CGP) Specimen: Nasopharyngeal Swab Symptoms->Fever / Respiratory Symptoms Result Value Ref Range Influenza A PCR Not Detected Not Detected Influenza B PCR Not Detected Not Detected SARS-CoV-2 PCR Not Detected Not Detected Resp PCR Source [facility] Swab Studies: XR O-Arm No Rad <1Hr - OR Use Result Date: 12/15/2023 This exam is auto-finalizing. No interpretation was done. Pending Studies and Lab Data: none Discharge Condition: Good Discharge to: Home Future Appointments and Orders Future Appointments and Orders Future Appointments Provider Department Dept Phone 01/05/2024 2:30 PM Gema Oliveira DO Internal Medicine at [facility] Arrive at: 1st Floor Broiler Supervisor [phone] 01/17/2024 9:20 AM Bret Nicholson MD Neurosurgery at [facility] Arrive at: Main Entrance Central Registration [phone] Future Orders Complete By Expires XR Lumbar Spine 2 Or 3 Views (Generic) [[id number] Custom] 01/16/2024 (Approximate) 03/16/2024 Process Instructions: Scheduling Instructions: Questions: Where will study be performed?: [facility] Radiology Portable exam?: Reason for exam and clinical history: s/p L45 fusion Clinical information / sandhu questions for radiologist: Stat read required?: Date of injury if applicable: Requested Time: Is the patient ?: No Discharge Medications: Your Medications New Medications Dose Details acetaminophen 325 mg tablet Commonly known as: Tylenol Take 2 tablets by mouth every 4 hours as needed for Pain. 650 mg Quantity: 30 tablet Refills: 1 cyclobenzaprine 10 mg tablet Commonly known as: Flexeril Take 1 tablet by mouth 3 times daily as needed for Muscle spasms. 10 mg Quantity: 30 tablet Refills: 0 docusate sodium 100 mg capsule Commonly known as: Colace Take 1 capsule by mouth 2 times daily for 10 days. 100 mg Quantity: 20 capsule Refills: 0 oxyCODONE 5 mg tablet Commonly known as: Roxicodone Take 1-2 tablets by mouth every 4 hours as needed for Pain. For moderate pain (5-7/10) take 1 tablet. For severe pain (8-10/10) take 2 tablets. 5-10 mg Quantity: 30 tablet Refills: 0 Continued medications with new dosing Dose Details hydroCHLOROthiazide 25 mg tablet Commonly known as: Hydrodiuril Take 1 tablet by mouth daily. What changed: when to take this 25 mg Quantity: 90 tablet Refills: 3 lisinopriL 40 mg tablet Commonly known as: Zestril TAKE ONE TABLET BY MOUTH EVERY DAY What changed: when to take this Quantity: 90 tablet Refills: 3 metoprolol succinate XL 50 mg ER 24 hr tablet Commonly known as: Toprol-XL Take 1 tablet by mouth daily. What changed: when to take this 50 mg Quantity: 30 tablet Refills: [address] capsule Commonly known as: PriLOSEC Take 1 capsule by mouth daily. What changed: when to take this 40 mg Quantity: 90 capsule Refills: 3 ondansetron ODT 4 mg disintegrating tablet Commonly known as: Zofran-ODT DISSOLVE ONE TABLET ON THE TONGUE EVERY 8 HOURS NEEDED FOR NAUSEA What changed: how much to take how to take this when to take this reasons to take this Quantity: 60 tablet Refills: 0 Trintellix 20 mg tablet TAKE ONE TABLET BY MOUTH EVERY DAY Generic drug: vortioxetine What changed: how much to take when to take this Quantity: 90 tablet Refills: 3 Trulicity 0.75 mg/0.5 mL Pen Injector INJECT 0.75MG UNDER THE SKIN ONCE WEEKLY Generic drug: dulaglutide What changed: how much to take how to take this when to take this additional instructions Quantity: 4 mL Refills: 3 Continued medications, unchanged Dose Details Advair Diskus 100-50 mcg/dose Disk with Device Inhale 1 puff into the lungs every 12 hours. Brand name Generic drug: fluticasone propion-salmeteroL 1 puff Quantity: 1 each Refills: 12 blood sugar diagnostic strips Strip 1 strip by Other route 4 times daily. Use as instructed Prefers one touch Ultra, but make sure strips ordered match machine dispensed 1 each Quantity: 400 each Refills: 3 Blood-Glucose Meter Misc 1 kit by [facility].(Non-Drug; Combo Route) route 4 times daily. Prefers one touch Ultra, but make sure strips ordered match machine dispensed 1 kit Quantity: 1 each Refills: 0 busPIRone 5 mg tablet Commonly known as: Buspar Take 1 tablet by mouth 3 times daily. 5 mg Quantity: 30 tablet Refills: 11 diclofenac 1 % Gel Commonly known as: Voltaren APPLY TOPICALLY TO THE AFFECTED AREA FOUR TIMES DAILY NEEDED Quantity: 100 g Refills: 3 Incontinence Pad, Liner, Disp Pad 1 each by [facility].(Non-Drug; Combo Route) route every 4 hours as needed (for incontinence). 1 each Quantity: 200 each Refills: 11 ipratropium-albuteroL 0.5 mg-3 mg(2.5 mg base)/3 mL Solution for Nebulization Commonly known as: Duoneb INHALE THE CONTENTS OF 1 VIAL BY NEBULIZATION EVERY 4 HOURS NEEDED Quantity: 180 mL Refills: 0 metFORMIN 1,000 mg tablet Commonly known as: Glucophage Take 1 tablet by mouth daily. 1,000 mg Quantity: 1 tablet Refills: 0 pramipexole 0.125 mg tablet Commonly known as: Mirapex Take three tablets by mouth nightly Quantity: 270 tablet Refills: 3 varenicline 1 mg tablet Commonly known as: Chantix Take 1 tablet by mouth 2 times daily (with meals). This medication should be taken in the middle ofyour largest meal(s) with a full glass of water. DO NOT TAKE ON AN EMPTY STOMACH. Indications: stopsmoking 1 mg Quantity: 60 tablet Refills: 5 Ventolin HFA 90 mcg/actuation HFA Aerosol Inhaler INHALE TWO PUFFS INTO THE LUNGS EVERY 4 HOURS NEEDED FOR WHEEZING Generic drug: albuteroL Quantity: 18 g Refills: 3 Updated Allergies/ADRs: Allergies Allergen Reactions Bactrim [Sulfamethoxazole-Trimethoprim] Anaphylaxis Trimethoprim Anaphylaxis Aleve [Naproxen Sodium] Rash Per neuro team, patient has tolerated ketorolac in the past Keflex [Cephalexin] Other (See Comments) Racing heart Meloxicam Nausea Only Amlodipine Nausea And Vomiting Follow-up Recommendations for Providers: Please have the patient follow up with Neurosurgery clinic in 4-6 weeks. Incision: Dermabond steri strip mesh Imaging: XR 4-6 weeks Instructions Given to Patient at Discharge: Patient Instructions SPINAL SURGERY DISCHARGE INSTRUCTIONS: Lumbar [facility] Neurosurgery IF YOU HAVE ANY PROBLEMS OR CONCERNS OUTSIDE OF REGULAR CLINIC HOURS CALL [facility] COACH MECHANIC AT [phone] AND ASK FOR NEUROSURGERY ON-CALL. OTHERWISE CALL THE CLINIC AT [phone]. PRESCRIPTION INSTRUCTIONS: Please see the medication reconciliation list on this discharge summary for a current list of your medications. Stop the use of blood thinning medications until instructed otherwise by your surgical team. This includes medications known as antiplatelet, anticoagulant, and non-steroidal anti-inflammatory (NSAIDs) drugs. Common mvya-bhh-isitkgk medications which should be avoided include Aspirin, ibuprofen, and naproxen among others. It is recommended you avoid all NSAIDs for 3 months after spinal fusion surgery. The following medications were prescribed for you: [x] Opioids - Pain relief: oxycodone 5-10 mg every 4-6 hours as needed for moderate to severe pain.For moderate pain (5-7/10) take 1 tablet. For severe pain (8-10/10) take 2 tablets. Opioids are commonly prescribed after surgery for severe pain. DO NOT use alcohol, drive, or operate heavy machinery while taking these medications. These medications may cause constipation. [x] Antispasmodics- muscle relaxers: Flexeril 10 mg every 8 hours as needed DO NOT use alcohol, drive, or operate heavy machinery while taking these medications. These medications may cause constipation. [x] Stool softeners - Constipation relief: docusate or senakot Stool softeners are commonly used after surgery to help make stools easier to pass. These medications can be obtained nrjy-jlg-vakrxyy and their use is recommended on an as needed basis for hard or difficult stools. They should be discontinued for loose stools and diarrhea. WHEN TO SEEK MEDICAL CARE: Signs or symptoms of an infection: - Fever over 101F - Redness, swelling, or increasing pain around your incision - Drainage of pus, blood, or clear fluid from your incision New neurologic symptoms: - New sensory changes such as numbness, tingling, or altered sensation - New weakness, unsteadiness, difficulty walking, or difficulty using your hands - New pain that radiates down your spine or into one of you extremities - New bowel or bladder dysfunction such as incontinence or retention Constipation not relieved by diet and/or kgpl-krt-rwpfbgj stool softeners and laxatives Nausea/vomiting (upset stomach) not controlled with anti-nausea medication Symptoms of a deep venous thrombosis (DVT) or pulmonary embolism (PE): - Swelling/warmth/redness of the leg - Pain in the leg, which can be worse with standing or walking - Chest pain or shortness of breath To help prevent a DVT: - Exercise regularly. Walking, at least several times daily, is helpful. - Ankle pump exercises (like pressing and releasing the gas pedal) should be done regularly. - Keep hydrated with water or other clear liquids (coffee/tea/cola can dehydrate you). - Avoid alcohol and crossing your legs. - Remember not to sit or lay in bed, while awake, for prolonged amounts of time. WOUND CARE: - Keep incisional site clean and dry. - Always wash hands prior to touching incision. - Do not submerge your incision underwater (baths, swimming, etc) for 6 weeks after your surgery oruntil incision site is fully healed. [x] You have a standard adhesive dressing. You can remove your dressing 4 days after surgery. - You may shower and shampoo incisional site, per your usual routine, 4 days after surgery. [] You have a Prevena Dressing and Wound vacuum system. - Your dressing is to remain on for 7 days. After 7 days you may remove dressing and discard along with battery pack and fluid reservoir. - If vacuum reservoir gets filled prior to 7 days you may remove vacuum dressing, but notify our office. - As a reminder the vacuum and tubing is all external. DIET: - You may resume your usual diet. - A well-balanced diet is recommended for wound healing. - Prune juice or prunes can be added to your diet to assist with any constipation. ACTIVITY: - You should avoid bending, twisting, and lifting more than 5 to 10 lbs for the first 4-6 weeks after surgery but may resume regular activities as tolerated. - Restrict strenuous activity (such as running, jumping, jogging, shoveling, etc.) until discussed with your surgical team DRIVING: - Do not drive while taking narcotic pain medication. [x] You may return to driving 24 to 48 hours after surgery if not feeling the effects of pain medication. SMOKING: Smoking has a negative impact on bone healing, in terms of delayed union, nonunion, and more complications. Ask your provider for more information regarding smoking cessation. FOLLOW UP PLAN: Incision: [x] Your sutures are absorbable and do not need to be removed. You have mesh steri-strip covering your incisions. Do not pick or pull off mesh as it will fall off naturally on its own. [] You have sutures that need removal. We will contact you to make specific arrangments. Please plan to follow up for suture/staple removal in 10-14 days with your Primary Care Office if willing or with the Neurosurgery [facility]/RN. Your sutures/mainor may also be removed at rehab or by VNA services. Appointments: We will contact you within 24 to 48 hours of discharge to check on your progress and make sure you are doing well. In general please plan to follow up with the Neurosurgery Clinic in 4-6 weeks. This may be in-person if needed or may be handled as a telephone visit depending on the specific situation. Please call the Neurosurgery Office at [phone] if you do not receive a scheduled appointmentwithin 48 to 72 hours following discharge. Future Appointments Date Time Provider Department Center 01/05/2024 2:30 PM Gema Oliveira DO [place] [facility] 01/17/2024 9:20 AM Bret Nicholson MD [facility] Anticipate Follow-up Imaging Prior to your appointment; (we will arrange with you): [] None [] XR - Cervical [] XR - Thoracic [x] XR - Lumbar [] XR - Thoracolumbar [] Other: You tested positive for RSV while in the hospital. Please follow up with you PCP for this issue within 1 week of your hospital discharge. HOW TO REACH NEUROSURGERY Office Hours: Monday through Monday, 8am-5pm. Call . On weekends or after office hours: Call [phone] and ask the lamination machine operator to page the Neurosurgery Resident/Advanced Practice Provider dimension quarry supervisor. Neurosurgery Providers Adult Neurosurgery Dr. Bret Galvez Pediatric Neurosurgery Dr. Vanessa Figueredo Advanced Practice Providers Gracie Hernandez, Nurse Practitioner (outpatient) Archana Gibbons, Physician Bolt Loader (inpatient/outpatient: neuro-oncology) Марина Zhang, Physician Bolt Loader (inpatient) Oswald Garcia, Nurse Practitioner (outpatient: pediatric) Suzan Ruiz, Nurse Practitioner (outpatient: vascular) Eufemia Ballard, Physician Bolt Loader (outpatient: spine) Amauri Packer, Nurse Practitioner (inpatient/outpatient) Eb Peña, Physician Bolt Loader (outpatient) Outpatient Nurses HERNANDEZ Childers 12/16/2023 documented in this encounter Discharge Instructions * Patient Instructions* Eufemia Ballard PA - 12/15/2023 3:10 PM EST SPINAL SURGERY DISCHARGE INSTRUCTIONS: Lumbar [facility] Neurosurgery IF YOU HAVE ANY PROBLEMS OR CONCERNS OUTSIDE OF REGULAR CLINIC HOURS CALL [facility] COACH MECHANIC AT [phone] AND ASK FOR NEUROSURGERY ON-CALL. OTHERWISE CALL THE CLINIC AT [phone]. PRESCRIPTION INSTRUCTIONS: Please see the medication reconciliation list on this discharge summary for a current list of your medications. Stop the use of blood thinning medications until instructed otherwise by your surgical team. This includes medications known as antiplatelet, anticoagulant, and non-steroidal anti-inflammatory (NSAIDs) drugs. Common rsch-ech-vetrpcp medications which should be avoided include Aspirin, ibuprofen, and naproxen among others. It is recommended you avoid all NSAIDs for 3 months after spinal fusion surgery. The following medications were prescribed for you: [x] Opioids - Pain relief: oxycodone 5-10 mg every 4-6 hours as needed for moderate to severe pain.For moderate pain (5-7/10) take 1 tablet. For severe pain (8-10/10) take 2 tablets. Opioids are commonly prescribed after surgery for severe pain. DO NOT use alcohol, drive, or operate heavy machinery while taking these medications. These medications may cause constipation. [x] Antispasmodics- muscle relaxers: Flexeril 10 mg every 8 hours as needed DO NOT use alcohol, drive, or operate heavy machinery while taking these medications. These medications may cause constipation. [x] Stool softeners - Constipation relief: docusate or senakot Stool softeners are commonly used after surgery to help make stools easier to pass. These medications can be obtained mabg-fen-kdowfbk and their use is recommended on an as needed basis for hard or difficult stools. They should be discontinued for loose stools and diarrhea. WHEN TO SEEK MEDICAL CARE: Signs or symptoms of an infection: - Fever over 101F - Redness, swelling, or increasing pain around your incision - Drainage of pus, blood, or clear fluid from your incision New neurologic symptoms: - New sensory changes such as numbness, tingling, or altered sensation - New weakness, unsteadiness, difficulty walking, or difficulty using your hands - New pain that radiates down your spine or into one of you extremities - New bowel or bladder dysfunction such as incontinence or retention Constipation not relieved by diet and/or kfdc-zyh-cohapqz stool softeners and laxatives Nausea/vomiting (upset stomach) not controlled with anti-nausea medication Symptoms of a deep venous thrombosis (DVT) or pulmonary embolism (PE): - Swelling/warmth/redness of the leg - Pain in the leg, which can be worse with standing or walking - Chest pain or shortness of breath To help prevent a DVT: - Exercise regularly. Walking, at least several times daily, is helpful. - Ankle pump exercises (like pressing and releasing the gas pedal) should be done regularly. - Keep hydrated with water or other clear liquids (coffee/tea/cola can dehydrate you). - Avoid alcohol and crossing your legs. - Remember not to sit or lay in bed, while awake, for prolonged amounts of time. WOUND CARE: - Keep incisional site clean and dry. - Always wash hands prior to touching incision. - Do not submerge your incision underwater (baths, swimming, etc) for 6 weeks after your surgery oruntil incision site is fully healed. [x] You have a standard adhesive dressing. You can remove your dressing 4 days after surgery. - You may shower and shampoo incisional site, per your usual routine, 4 days after surgery. [] You have a Prevena Dressing and Wound vacuum system. - Your dressing is to remain on for 7 days. After 7 days you may remove dressing and discard along with battery pack and fluid reservoir. - If vacuum reservoir gets filled prior to 7 days you may remove vacuum dressing, but notify our office. - As a reminder the vacuum and tubing is all external. DIET: - You may resume your usual diet. - A well-balanced diet is recommended for wound healing. - Prune juice or prunes can be added to your diet to assist with any constipation. ACTIVITY: - You should avoid bending, twisting, and lifting more than 5 to 10 lbs for the first 4-6 weeks after surgery but may resume regular activities as tolerated. - Restrict strenuous activity (such as running, jumping, jogging, shoveling, etc.) until discussed with your surgical team DRIVING: - Do not drive while taking narcotic pain medication. [x] You may return to driving 24 to 48 hours after surgery if not feeling the effects of pain medication. SMOKING: Smoking has a negative impact on bone healing, in terms of delayed union, nonunion, and more complications. Ask your provider for more information regarding smoking cessation. FOLLOW UP PLAN: Incision: [x] Your sutures are absorbable and do not need to be removed. You have mesh steri-strip covering your incisions. Do not pick or pull off mesh as it will fall off naturally on its own. [] You have sutures that need removal. We will contact you to make specific arrangments. Please plan to follow up for suture/staple removal in 10-14 days with your Primary Care Office if willing or with the Neurosurgery [facility]/RN. Your sutures/mainor may also be removed at rehab or by VNA services. Appointments: We will contact you within 24 to 48 hours of discharge to check on your progress and make sure you are doing well. In general please plan to follow up with the Neurosurgery Clinic in 4-6 weeks. This may be in-person if needed or may be handled as a telephone visit depending on the specific situation. Please call the Neurosurgery Office at [phone] if you do not receive a scheduled appointmentwithin 48 to 72 hours following discharge. Future Appointments Date Time Provider Department Center 01/05/2024 2:30 PM Gema Oliveira DO [place] [facility] 01/17/2024 9:20 AM Bret Nicholson MD [facility] Anticipate Follow-up Imaging Prior to your appointment; (we will arrange with you): [] None [] XR - Cervical [] XR - Thoracic [x] XR - Lumbar [] XR - Thoracolumbar [] Other: You tested positive for RSV while in the hospital. Please follow up with you PCP for this issue within 1 week of your hospital discharge. documented in this encounter Medications at Time of Discharge Medication Sig Dispensed Refills Start Date End Date acetaminophen (Tylenol) 325 mg tablet Take 2 tablets by mouth every 4 hours as needed for Pain. 30 tablet 1 12/16/2023 cyclobenzaprine (Flexeril) 10 mg tablet Take 1 tablet by mouth 3 times daily as needed for Muscle spasms. 30 tablet 12/16/2023 pramipexole (Mirapex) 0.125 mg tabletIndications:Rest less leg Take three tablets by mouth nightly 270 tablet 3 11/06/2023 hydroCHLOROthiazide (Hydrodiuril) 25 mg tabletIndications:Esse ntial hypertension Take 1 tablet by mouth daily. 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 Prefers [...] Pad, Liner, Disp Pad 1 each by [facility].(Non-Drug; Combo Route) route every 4 hours as needed (for incontinence). 200 each 11 10/03/2019 ipratropium-albuteroL (Duoneb) 0.5 mg-3 mg(2.5 mg base)/3 mL Solution for Nebulization INHALE THE CONTENTS OF 1 VIAL BY NEBULIZATION EVERY 4 HOURS NEEDED 180 mL 12/18/2023 04/17/2024 docusate sodium (Colace) 100 mg capsule Take [...] 8 HOURS NEEDED FOR NAUSEA 60 tablet 12/04/2023 01/09/2024 dulaglutide (Trulicity) 0.75 mg/0.5 mL Pen InjectorIndications:Ty pe 2 diabetes mellitus without complication, unspecified whether long-term insulin use INJECT 0.75MG UNDER THE SKIN ONCE WEEKLY 4 mL 3 11/06/2023 01/08/2024 metoprolol succinate XL (Toprol-XL) 50 mg ER 24 hr tabletIndications:Hype rtension, essential, benign Take 1 tablet by mouth daily. 30 tablet 12 11/06/2023 06/18/2024 metFORMIN (Glucophage) 1,000 mg tabletIndications:Type 2 diabetes mellitus without complication, without long-term current use of insulin Take 1 tablet by mouth daily. 1 tablet 08/14/2023 02/14/2024 busPIRone (Buspar) 5 mg tabletIndications:Anxi ety Take 1 tablet by mouth 3 times daily. 30 tablet 11 08/14/2023 01/08/2024 omeprazole (PriLOSEC) [address] capsuleIndications:Gas troesophageal reflux disease without esophagitis Take 1 capsule by mouth daily. 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 Incision site dressings intact. Mod sanguineous drainage over left sided dressing. Has not requiredchanging since OR yesterday. Patient reporting some numbness in lateral thighs as well as right hand thumb, pointer and middle fingers. This has improved since yesterday for the most extent. Likely positional from Spencer table.Denies motor deficits and has FROM. Ambulating independently and voiding spontaneously. Tested + for RSV and on droplet precaution. Has been stable since admission and tolerating room air. Has been afebrile with mild tachycardia. MEDICATIONS: Scheduled Meds: hydroCHLOROthiazide 25 mg Oral Daily lisinopriL 40 mg Oral Daily metoprolol succinate XL 50 mg Oral Daily busPIRone 5 mg Oral TID metFORMIN 1,000 mg Oral Daily pantoprazole EC 40 mg Oral Daily pramipexole 0.5 mg Oral Nightly vortioxetine 20 mg Oral QAM varenicline 1 mg Oral BID WC sodium chloride 0.9 % (flush) 3 mL Intravenous 2 times per day docusate sodium 100 mg Oral BID senna 8.6 mg Oral BID budesonide 500 mcg Nebulization BID (Resp Therapy) ipratropium-albuteroL 3 mL Nebulization Q6H CHRISTIN Continuous Infusions: sodium chloride 0.9% infusion 1,000 mL Intravenous Continuous ### PRN Meds: ipratropium-albuteroL, albuteroL, sodium chloride 0.9 % (flush), bisacodyL, polyethylene glycoL, magnesium hydroxide, oxyCODONE OR oxyCODONE, acetaminophen, cyclobenzaprine, HYDROmorphone, ondansetron ODT OR ondansetron, prochlorperazine OR prochlorperazine, glucose 40% oral geL OR dextrose OR glucagon EXAM: Vitals: Patient Vitals for the past 24 hrs: Temp Heart Rate From SP02 Pulse Resp BP SpO2 O2 Flow Rate (L/min) O2 Device 12/15/23 1145 -- -- 94 (!) 33 115/56 -- -- -- 12/15/23 1150 36.4 ??C (97.6 ??F) 92 bpm 92 19 121/74 96 % -- -- 12/15/23 1152 -- 93 bpm 93 28 121/74 96 % -- -- 12/15/23 1155 -- 95 bpm 96 24 124/81 96 % 1.5 L/min NC 12/15/23 1200 -- 92 bpm 92 26 120/75 96 % -- -- 12/15/23 1205 -- 98 bpm 99 18 120/76 94 % -- -- 12/15/23 1210 -- 87 bpm 87 15 117/75 96 % -- -- 12/15/23 1213 -- 89 bpm 88 13 119/72 96 % -- -- 12/15/23 1215 -- 86 bpm 88 16 119/72 95 % -- -- 12/15/23 1220 -- 94 bpm 93 17 (!) 128/95 95 % 1.5 L/min NC 12/15/23 1225 -- 89 bpm -- -- 98/66 95 % -- -- 12/15/23 1229 -- 91 bpm -- -- 111/71 96 % -- -- 12/15/23 1245 -- 84 bpm -- -- 115/74 93 % 1 L/min NC 12/15/23 1300 -- 91 bpm -- -- -- 94 % 0.5 L/min NC 12/15/23 1310 -- 92 bpm -- 18 101/71 95 % -- -- 12/15/23 1425 36.6 ??C (97.9 ??F) 100 bpm -- 18 129/82 94 % -- -- 12/15/23 1620 36.8 ??C (98.2 ??F) (!) 116 bpm -- 18 125/76 96 % -- RA 12/15/23 1713 -- -- (!) 106 16 -- -- -- RA 12/15/23 1915 37.5 ??C (99.5 ??F) (!) 117 bpm -- 16 138/85 95 % -- RA 12/15/23 1940 -- -- 100 16 -- -- -- RA 12/15/23 2258 37 ??C (98.6 ??F) (!) 118 bpm -- 20 139/87 96 % -- RA 12/15/23 2345 -- -- (!) 108 18 -- -- -- RA 12/16/23 0425 36.7 ??C (98.1 ??F) (!) 125 bpm -- 18 140/89 93 % -- RA 12/16/23 0703 36 ??C (96.8 ??F) (!) 109 bpm -- 18 143/89 96 % -- RA 12/16/23 0739 -- -- -- 20 -- -- -- RA 12/16/23 0804 -- (!) 111 bpm -- -- -- -- -- -- BMI: Weight: 120.2 kg (265 lb) (12/15/23 0635) BMI (Calculated): 40.29 BMI Classification: Morbid Obesity I/O: I/O last 3 completed shifts: In: 1660 [P.O.:480; I.V.:1030; IV Piggyback:150] Out: 100 [Blood:100] LABS: No results for input(s): WBC, HGB, PLATELET in the last 72 hours. No results for input(s): NA, K, CL, CO2, BUN, CREATININE in the last 72 hours. No results for input(s): PT, INR in the last 72 hours. IMAGING: none A/P: POD#1 s/p MIS L4-5 TLIF Medically stable for DC home today. Active Hospital Problems Diagnosis Spondylolisthesis at L4-L5 level Resolved Hospital Problems No resolved problems to display. Active Non-Hospital Problems Diagnosis Type 2 diabetes mellitus without complication, without long-term current use of insulin Hypertension, essential, benign Adult BMI 40.0-44.9 kg/sq m Depression Obstructive lung disease (generalized) Alcohol abuse Osteoarthritis of spine with radiculopathy, lumbar region Esophageal reflux (GERD) PTSD (post-traumatic stress disorder) Agoraphobia ADD (attention deficit disorder) (ADHD) Vitamin D deficiency H/O suicide attempt Erosion of vaginal mesh Mixed stress and urge urinary incontinence Post-traumatic headache Bilateral occipital neuralgia History of cervical cancer Hyperlipidemia Class 3 severe obesity in adult Pelvic pain S/P laparoscopic assisted vaginal hysterectomy (LAVH) Anxiety Pulmonary nodules Smoking HERNANDEZ Negrete 12/16/2023 * Siobhan Rodriguez RN - 12/15/2023 1:12 PM EST Tracie Layton arrived to Medical Surgical Unit from the PACU s/p Spondylolisthesis at L4-L5 level [M43.16]. Patient is alert and oriented x4. See Adult Patient Care Summary for focused assessment upon admission. Dressing is CDI. Patient rates their pain as 5/10 at this time. Patient oriented to room and the units practice of purposeful rounding. Call jim within reach and all questions/concerns answered at this time. Will continue to monitor patient as necessary. VSS on 0.5 L O2. Expiratory wheezing noted throughout. A&Ox4. Pain to R lower back/hip rated 5/10 - PRN Flexeril/Oxycodone given. Daughter & friend at bedside. Pt states she is having numbness to R hand - PA notified. NS infusing @ 100 mL/hr. 1400: PT transferred to MS unit rm 124C. 1430: Pain becoming more tolerable per pt 3/10. Family left to get her food. Pt resting for now. 1530: Pt up x1 assist to void. Pain increased with ambulation - refused pain meds. 1600: Resp panel obtained to r/o COVID/Flu. Moved pt to private room & placed on contact/airborne precautions. 1622: PRN IV Dilaudid given for pain relief not relieved by PO meds. Pt rated her pain 7/10. 1830: PRN Oxy given for 8/10 back pain. Siobhan Rodriguez RN, 12/15/2023 * Jake Davila RN - 12/15/2023 12:54 PM EST Resting comfortably at this time, RRR, even, unlabored. Pt is supine, on 1lpm via NC, VSS. Tolerating PO. No complaints at this time. Continuing to monitor. 1300 Verbal report to VEL Mccann. Pt transferred to SSU via bed, NAD documented in this encounter H&P Notes * Eufemia Ballard PA - 12/15/2023 7:50 AM EST Patient Name: Tracie Layton Patient Age: 53 y.o. Birthdate: 1970 Admit date: 12/15/2023 Attending Physician: Bret Nicholson MD The patient's history and physical exam have been reviewed and completed. There has been no interval change from that of the pre-operative history and physical exam done within the last 30 days. documented in this encounter Miscellaneous Notes * Plan of Care - Siobhan Rodriguez RN - 12/16/2023 11:37 AM EST Tracie Layton discharged per provider order to home via friend in personal vehicle. All IV???s removed. Discharge instructions reviewed with patient and friend. All questions or concerns answered atthis time. Patient encouraged to call with any further questions or concerns. Copy of After Visit Summary given to patient at time of discharge. All personal belongings returned to patient. Patient assisted to personal vehicle via staff member and wheelchair. VSS on RA. Pt reports BAUMANN - SPO2 remains >90%. Inspiratory/expiratory wheezing noted. Scheduled nebs given per RT. Pt on droplet precautions for RSV. A&Ox4. Pain to lower back/R hip rated 7/10- PRN Oxy given x2 with good effect. Dressings to incision sites on back changed per order. PA at bedside this AM. Meets goals for d/c. 1130: Pt refused to work with PT prior to discharging. She states she is getting up & around well. Charge, VEL Novak notified. HERNANDEZ Fall also okay with this as discussed this morning with pt. Siobhan Rodriguez RN, 12/16/2023 Problem: Adult Inpatient Plan of Care Goal: Plan of Care Review Outcome: Outcome (s) achieved Goal: Patient-Specific Goal (Individualized) Outcome: Outcome (s) achieved Goal: Absence of Hospital-Acquired Illness or Injury Outcome: Outcome (s) achieved Goal: Optimal Comfort and Wellbeing Outcome: Outcome (s) achieved Goal: Readiness for Transition of Care Outcome: Outcome (s) achieved Problem: Fall Injury Risk Goal: Absence of Fall and Fall-Related Injury Outcome: Outcome (s) achieved * Plan of Care - Joya Gardner RN - 12/16/2023 6:47 AM EST Neuros' intact besides R hand numbness and Bilat thigh numbess, approx 2 inches down from hips, unchanging through shift, Neuro PA aware. Normal sensations throughout and good pulses x 4 extremities.Able to ambulate with standby assist and walker. Pain noted still in lower back managed with current regime of medication. L side surgical dressing noted to have mod serosanguinous strikethrough drainage. Dressing is still intact and monitored with no changes through the shift in drainage amount. Problem: Adult Inpatient Plan of Care Goal: Plan of Care Review Outcome: Ongoing (Interventions Implemented as Appropriate) Goal: Patient-Specific Goal (Individualized) Outcome: Ongoing (Interventions Implemented as Appropriate) Goal: Absence of Hospital-Acquired Illness or Injury Outcome: Ongoing (Interventions Implemented as Appropriate) Goal: Optimal Comfort and Wellbeing Outcome: Ongoing (Interventions Implemented as Appropriate) Goal: Readiness for Transition of Care Outcome: Ongoing (Interventions Implemented as Appropriate) Problem: Fall Injury Risk Goal: Absence of Fall and Fall-Related Injury Outcome: Ongoing (Interventions Implemented as Appropriate) * Consult Note - Zina Piedra APRN - 12/15/2023 2:59 PM EST Inpatient Hospital Medicine - Consultation Note Date of Consultation: 12/15/2023 Consult Service: Medicine Consult Service Responsible Attending: Pratibha Griffin MD Place of Service: Inpatient Unit Reason for Consult: We are seeing Tracie Layton at the request of Dr. Nicholson of the Neurosurgery service for the evaluation of post-op wheezing. I have reviewed the available records, interviewed, and examined the patient. Active Problem List: Active Hospital Problems Diagnosis Spondylolisthesis at L4-L5 level Resolved Hospital Problems No resolved problems to display. Active Non-Hospital Problems Diagnosis Type 2 diabetes mellitus without complication, without long-term current use of insulin Hypertension, essential, benign Adult BMI 40.0-44.9 kg/sq m Depression Obstructive lung disease (generalized) Alcohol abuse Osteoarthritis of spine with radiculopathy, lumbar region Esophageal reflux (GERD) PTSD (post-traumatic stress disorder) Agoraphobia ADD (attention deficit disorder) (ADHD) Vitamin D deficiency H/O suicide attempt Erosion of vaginal mesh Mixed stress and urge urinary incontinence Post-traumatic headache Bilateral occipital neuralgia History of cervical cancer Hyperlipidemia Class 3 severe obesity in adult Pelvic pain S/P laparoscopic assisted vaginal hysterectomy (LAVH) Anxiety Pulmonary nodules Smoking History of Present Illness: Tracie Layton is a 53 y.o. female with a PMH of agoraphobia, anxiety, diabetes, HTN, asthma, GERD,and low back pain, who presented to [facility] for elective L4-5 hemilaminectomy and fusion under the neurosurgery service. She underwent the procedure today and was noted to be mildly hypoxic post-op with wheezing, so hospital medicine was consulted. Chart review shows patient uses Advair regularly and has PRN duo nebs and Ventolin as well. She has a history of asthma. She denies any history of COPD, recently quit smoking (20 pack-years). Notably, she had bedside spirometry in 02/2016 suggestive of mild obstructive disease. Patient reports that she has not used her duo nebs in a long time but has been using her Ventolin inhaler more in the past week. She notes that her daughter used bleach to killsome mildew in their house 3 days ago, and she reports this always exacerbates her asthma and she has been wheezing more since then. She also reports a family member with cold-like symptoms. She denies sore throat, fevers, cough, or congestion. She denies chest pain. She received a duo neb tx post-op and reports she feels better. On my exam she has mild wheezing and is requiring 0.5 L via NC. Review of Systems: Review of Systems Constitutional: Negative for fever. HENT: Negative for congestion and sore throat. Respiratory: Positive for shortness of breath and wheezing. Negative for cough. Cardiovascular: Negative for chest pain. Musculoskeletal: Positive for arthralgias and back pain. Past Medical and Surgical History: Past Medical History: Diagnosis Date Agoraphobia Alcohol abuse Diabetes Gastroesophageal reflux H/O suicide attempt 10/29/2014 Overdose in 1999 High blood pressure Hip problem History of cervical cancer 2001 s/p LEEP??? in [place] HTN (hypertension) Post-traumatic headache 05/31/2014 fell out of a hammock Past Surgical History: Procedure Laterality Date CERVIX SURGERY LEEP SECTION x2 COLONOSCOPY CT GUIDED INJECTION SI JOINT 03/21/2023 CT Guided Injection SI Joint 03/21/2023 Margi Gomez MD [facility] RAD CT SCAN ENDOMETRIAL ABLATION HYSTERECTOMY laparoscopic for abnormaluterine bleeding PRO COLONOSCOPY, REMV LESN, SNARE N/A 06/11/2015 COLONOSCOPY, POLYPECTOMY, REMOVAL LESION BY SNARE performed by Larry Ryan MD at [facility] ENDOSCOPY PRO REMV/REVS SLING FOR STRES INCONTINENCE N/A 06/06/2017 SLING, REVISEOR REMOVE, REPLACE, VAGINALAPPROACH, SYNTHETIC\FASCIA (WRVU 11.15) performed by Frankie Richards MD at [facility] OSC PRO SLING OPER STRES INCONTINENCE N/A 06/08/2016 URETHRAL SUSPENSION, SLING\FASCIA OR SYNTHETIC performed by Frankie Richards MD at [facility] MAIN OR PRO UPPER GI ENDOSCOPY, BIOPSY 01/08/2014 EGD WITH BIOPSY performed by Ilya Whitney MD at [facility] ENDOSCOPY PRO UPPER GI ENDOSCOPY, BIOPSY N/A 06/21/2017 UPPER GASTROINTESTINAL ENDOSCOPY,WITH BIOPSY SINGLE OR MULTIPLE (WRVU 2.49) performed by Rickie Pineda MD at [facility] ENDOSCOPY PRO UPPER GI ENDOSCOPY, DIAGNOSTIC N/A 06/21/2017 EGD, UPPER GI ENDOSCOPY performed by Rickie Pineda MD at [facility] ENDOSCOPY TUBAL LIGATION 1992 Medications: Current Facility-Administered Medications Ordered in Epic Medication Dose Route Frequency Provider Last Rate Last Admin busPIRone (Buspar) tablet 5 mg 5 mg Oral TID Eufemia Ballard PA 5 mg at 12/15/23 1424 [START ON 12/16/2023] hydroCHLOROthiazide (Hydrodiuril) tablet 25 mg 25 mg Oral Eufemia Edward PA ipratropium-albuteroL (Duoneb) 0.5 mg-3 mg(2.5 mg base)/3 mL nebulizer solution 3 mL 3 mL Nebulization Q4H PRN Eufemia Ballard PA [START ON 12/16/2023] lisinopriL (Zestril) tablet 40 mg 40 mg Oral Eufemia Edward PA metFORMIN (Glucophage) tablet 1,000 mg 1,000 mg Oral Daily Eufemia Ballard PA 1,000 mg at 12/15/23 1339 [START ON 12/16/2023] metoprolol succinate XL (Toprol-XL) tablet 50 mg 50 mg Oral QAM Nancy Ballard PA [START ON 12/16/2023] pantoprazole EC (Protonix) tablet 40 mg 40 mg Oral Daily Eufemia Ballard PA pramipexole (Mirapex) tablet 0.5 mg 0.5 mg Oral Nightly Eufemia Ballard PA [START ON 12/16/2023] vortioxetine (Trintellix) Tablet 20 mg 20 mg Oral QAM Eufemia Ballard PA varenicline (Chantix) tablet 1 mg 1 mg Oral BID WC Eufemia Ballard PA albuteroL (Proventil, Ventolin) (2.5 mg/3 mL) (0.083 %) nebulizer solution 2.5 mg 2.5 mg Nebulization Q4H PRN Eufemia Ballard PA sodium chloride 0.9 % (flush) (BD PosiFlush Normal Saline 0.9) flush 3 mL 3 mL Intravenous 2 times per day Eufemia Ballard PA sodium chloride 0.9 % (flush) (BD PosiFlush Normal Saline 0.9) flush 5-20 mL 5- 20 mL Intravenous Q1Min PRN Eufemia Ballard PA sodium chloride 0.9% infusion 1,000 mL Intravenous Continuous Eufemia Ballard PA 100 mL/hr at 12/15/23 1339 1,000 mL at 12/15/23 1339 docusate sodium (Colace) capsule 100 mg 100 mg Oral BID Eufemia Ballard PA 100 mg at 12/15/23 1339 senna (Senokot) tablet 8.6 mg 8.6 mg Oral BID Eufemia Ballard PA 8.6 mg at 12/15/23 1339 bisacodyL (Dulcolax) suppository 10 mg 10 mg Rectal Daily PRN Eufemia Ballard PA polyethylene glycoL (Miralax) packet 17 g 17 g Oral Daily PRN Eufemia Ballard PA magnesium hydroxide (Milk of Magnesia) (240 mg/mL) oral liquid 10 mL 10 mL Oral Once PRN Eufemia Ballard PA oxyCODONE (Roxicodone) tablet 5 mg 5 mg Oral Q4H PRN Eufemia Ballard PA 5 mg at 12/15/23 1327 Or oxyCODONE (Roxicodone) tablet 10 mg 10 mg Oral Q4H PRN Eufemia Ballard PA acetaminophen (Tylenol) tablet 650 mg 650 mg Oral Q4H PRN Eufemia Ballard PA cyclobenzaprine (Flexeril) tablet 10 mg 10 mg Oral TID PRN Eufemia Ballard PA 10 mg at 12/15/23 1327 HYDROmorphone (Dilaudid) (1 mg/mL) injection syringe 0.5 mg 0.5 mg Intravenous Q3H PRN Eufemia Ballard PA ondansetron ODT (Zofran-ODT) disintegrating tablet 4 mg 4 mg Oral Q8H PRN Eufemia Ballard PA Or ondansetron (pf) (Zofran) (2 mg/mL) injection 4 mg 4 mg Intravenous Q8H PRN Eufemia Ballard PA prochlorperazine (Compazine) tablet 10 mg 10 mg Oral Q6H PRN Eufemia Ballard PA Or prochlorperazine (Compazine) (5 mg/mL) injection 10 mg 10 mg Intravenous Q6H PRN Eufemia Ballard PA glucose (Glutose) 40% oral geL 15-30 g of glucose Buccal Q15 Min PRN Eufemia Ballard PA Or dextrose 10% infusion 250 mL Intravenous Q15 Min PRN Eufemia Ballard PA Or glucagon (Glucagen) (1 mg/mL) injection solution 1 mg 1 mg Intramuscular Q15 Min PRN Nancy Ballard PA budesonide (Pulmicort) nebulizer suspension 500 mcg 500 mcg Nebulization BID (Resp Therapy) Eufemia Ballard PA No current [facility]-ordered outpatient medications on file. Prior To Admission Medications: Medications Prior to Admission Medication Sig Dispense Refill Last Dose ondansetron ODT (Zofran-ODT) 4 mg disintegrating tablet DISSOLVE ONE TABLET ON THE TONGUE EVERY 8 HOURS NEEDED FOR NAUSEA (Patient taking differently: Take 4 mg by mouth every 8 hours as needed for Nausea. DISSOLVE ONE TABLET ON THE TONGUE EVERY 8 HOURS NEEDED FOR NAUSEA) 60 tablet 0 12/15/2023 dulaglutide (Trulicity) 0.75 mg/0.5 mL Pen Injector INJECT 0.75MG UNDER THE SKIN ONCE WEEKLY (Patient taking differently: Inject 0.75 mg subcutaneously once a week. INJECT 0.75MG UNDER THE SKIN ONCE WEEKLY Monday) 4 mL 3 Past Month metoprolol succinate XL (Toprol-XL) 50 mg ER 24 hr tablet Take 1 tablet by mouth daily. (Patient taking differently: Take 50 mg by mouth every morning.) 30 tablet 12 12/15/2023 pramipexole (Mirapex) 0.125 mg tablet Take three tablets by mouth nightly 270 tablet 3 12/14/2023 metFORMIN (Glucophage) 1,000 mg tablet Take 1 tablet by mouth daily. 1 tablet 0 12/14/2023 busPIRone (Buspar) 5 mg tablet Take 1 tablet by mouth 3 times daily. 30 tablet 11 12/14/2023 hydroCHLOROthiazide (Hydrodiuril) 25 mg tablet Take 1 tablet by mouth daily. (Patient taking differently: Take 25 mg by mouth every morning.) 90 tablet 3 12/14/2023 omeprazole (PriLOSEC) [address] capsule Take 1 capsule by mouth daily. (Patient taking differently: Take 40 mg by mouth every morning.) 90 capsule 3 12/15/2023 lisinopriL (Zestril) 40 mg tablet TAKE ONE TABLET BY MOUTH EVERY DAY (Patient taking differently: Take 40 mg by mouth every morning.) 90 tablet 3 12/14/2023 Trintellix 20 mg tablet TAKE ONE TABLET BY MOUTH EVERY DAY (Patient taking differently: Take 20 mg by mouth every morning.) 90 tablet 3 12/15/2023 Ventolin HFA 90 mcg/actuation HFA Aerosol Inhaler INHALE TWO PUFFS INTO THE LUNGS EVERY 4 HOURS NEEDED FOR WHEEZING 18 g 3 12/14/2023 varenicline (Chantix) 1 mg tablet Take 1 tablet by mouth 2 times daily (with meals). This medication should be taken in the middle of your largest meal(s) with a full glass of water. DO NOT TAKE ON AN EMPTY STOMACH. Indications: stop smoking 60 tablet 5 12/14/2023 Advair Diskus 100-50 mcg/dose Disk with Device Inhale 1 puff into the lungs every 12 hours. Brand name 1 each 12 Past Week diclofenac (Voltaren) 1 % Gel APPLY TOPICALLY TO THE AFFECTED AREA FOUR TIMES DAILY NEEDED 100 g3 Past Month blood sugar diagnostic strips Strip 1 strip by Other route 4 times daily. Use as instructed Prefersone touch Ultra, but make sure strips ordered match machine dispensed 400 each 3 Blood-Glucose Meter Misc 1 kit by [facility].(Non-Drug; Combo Route) route 4 times daily. Prefers one touch Ultra, but make sure strips ordered match machine dispensed 1 each 0 ipratropium-albuterol (DUONEB) 0.5 mg-3 mg(2.5 mg base)/3 mL Solution for Nebulization INHALE THE CONTENTS OF 1 VIAL BY NEBULIZATION EVERY 4 HOURS NEEDED 180 mL 5 More than a month Incontinence Pad, Liner, Disp Pad 1 each by [facility].(Non-Drug; Combo Route) route every 4 hours as needed (for incontinence). 200 each 11 Allergies: Allergies Allergen Reactions Bactrim [Sulfamethoxazole-Trimethoprim] Anaphylaxis Trimethoprim Anaphylaxis Aleve [Naproxen Sodium] Rash Per neuro team, patient has tolerated ketorolac in the past Keflex [Cephalexin] Other (See Comments) Racing heart Meloxicam Nausea Only Amlodipine Nausea And Vomiting Family History: Family History Problem Relation Age of Onset Brain Tumor Mother metastatic from lung Lung Cancer Mother No Known Problems Father Coronary Artery Disease Early Onset Brother 43 smoker Breast Cancer Maternal Aunt 60 Ovarian Cancer Neg Hx Colorectal Cancer Neg Hx Pancreatic Cancer Neg Hx Endometrial Cancer Neg Hx Social History and Habits: Social History Socioeconomic History Marital status: Single Spouse name: Not on file Number of children: Not on file Years of education: Not on file Highest education level: Not on file Occupational History Not on file Tobacco Use Smoking status: Former Packs/day: 0.50 Years: 30.00 Additional pack years: 0.00 Total pack years: 15.00 Types: Cigarettes Quit date: 05/12/2023 Years since quittin.5 Smokeless tobacco: Never Tobacco comments: Quit 5 wks ago Vaping Use Vaping Use: Never used Substance and Sexual Activity Alcohol use: Yes Comment: Very rare Drug use: Not Currently Sexual activity: Yes Partners: Male Comment: tubal ligation as control Other Topics Concern Not on file Social History Narrative Lives with Philipp, boyfriend (13 years) 3 adult children, one grand daughter 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, 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 Disability for depression/ptsd from CSA Financially getting by with help of partner Social Determinants of Health Financial Resource Strain: Patient Declined (02/10/2023) Overall Financial Resource Strain (CARDIA) Difficulty of Paying Living Expenses: Patient declined Food Insecurity: Patient Declined (02/10/2023) Hunger Vital Sign Worried About Running Out of Food in the Last Year: Patient declined Ran Out of Food in the Last Year: Patient declined Transportation Needs: No Transportation Needs (02/10/2023) PRAPARE - Transportation Lack of Transportation (Medical): No Lack of Transportation (Non-Medical): No Physical Activity: Inactive (02/10/2023) Exercise Vital Sign Days of Exercise per Week: 0 days Minutes of Exercise per Session: 0 min Intimate Partner Violence: Not on file Housing Stability: Unknown (02/10/2023) Housing Stability Vital Sign Unable to Pay for Housing in the Last Year: No Number of Places Lived in the Last Year: Not on file Unstable Housing in the Last Year: Patient refused Physical Exam: Last set of vitals and range over past 24 hours: Last value Range last 24 hrs Temperature Temp: 36.6 ??C (97.9 ??F) Temp: [36.1 ??C (97 ??F)-36.6 ??C (97.9 ??F)] Heart Rate Heart Rate: 93 Heart Rate: [87-102] Blood Pressure BP: 129/82 BP: (98-170)/(56-95) Respiratory Rate Resp: 18 Resp: [13-33] SpO2 SpO2: 94 % SpO2: [93 %-96 %] Physical Exam Constitutional: General: She is not in acute distress. Appearance: She is not toxic-appearing. HENT: Head: Normocephalic and atraumatic. Eyes: Extraocular Movements: Extraocular movements intact. Pupils: Pupils are equal, round, and reactive to light. Cardiovascular: Rate and Rhythm: Regular rhythm. Tachycardia present. Pulses: Normal pulses. Pulmonary: Effort: Pulmonary effort is normal. No respiratory distress. Breath sounds: Wheezing present. Comments: Breathing comfortably and able to speak in complete sentences on 0.5 L nasal cannula. Mild wheezing. No rales. Abdominal: General: There is no distension. Skin: General: Skin is warm and dry. Neurological: Mental Status: She is alert and oriented to person, place, and time. Psychiatric: Mood and Affect: Mood normal. Behavior: Behavior normal. Laboratory (Last 24 Hours): Recent Results (from the past 24 hour(s)) POCT Glucose Result Value Ref Range POC Glucose 169 65 - 199 mg/dL POCT Glucose Result Value Ref Range POC Glucose 245 (H) 65 - 199 mg/dL Radiology: No results found for this visit on 12/15/23. Diagnostic Tests/Procedures Ordered: Respiratory viral panel Assessment: Tracie Layton is a 53 y.o. Female with a history of agoraphobia, anxiety, diabetes, HTN, asthma, GERD, and low back pain, who presented to [facility] for elective L4-5 hemilaminectomy and fusion under the neurosurgery service. Hospital medicine has been consulted for post-op wheezing. On exam, patient has wheezing bilaterally but mild. She reports feeling much better after getting aduo neb post-op. She is requiring 0.5 L O2 via NC and is able to speak in complete sentences without issue. Patient notes both recent exposure to a family member with cold-like symptoms and exposure to bleach fumes, which have exacerbated her asthma in the past. I suspect she has an asthma or COPD exacerbation. She has no COPD diagnosis but last had PFTs in 2016, and bedside spirometry at the time suggested mild obstructive pathology. She does not present an infectious picture, but given her exposure to family member with a cold will send a respiratory viral panel. She likely does not need steroids at this time, would continue with PRN albuterol and schedule duo nebs. If breathing becomes worse, would obtain CXR, however suspicion for pna is low. Recommendations: -Schedule duo nebs (ordered) -Continue PRN albuterol nebs -Obtain respiratory viral panel (ordered) -Low threshold to start steroids should wheezing worsen -Low threshold for chest imaging if infectious symptoms develop -Would recommend consideration of outpatient PFTs X Consult service will continue to follow patient. Recommendations are above, please page if further consultation required. Zina Piedra APRN 12/15/2023 * Op Note - Bret Nicholson MD - 12/15/2023 8:20 AM EST [facility] Operative Note [facility] [address] [place] [address] Patient Name: Tracie Layton : [id number] MR#: [id number] Case Date: 12/15/2023 Case Scheduled Time: 0730 Surgeon: Surgeon(s) and Role: * Bret Nicholson MD - Primary * Eufemia Ballard PA - Physician Bolt Loader-assisted with suction, retraction, and suturing Preoperative diagnosis: Spondylolisthesis L4-5 Postoperative diagnosis: Spondylolisthesis L4-5 Procedure(s) (LRB): ARTHRODESIS, COMB. POST OR POSTEROLAT W/LAMI &/OR DISC SINGLE INTERSPACE; LUMBAR (WRVU 26.8) (N/A) LAMINECTOMY,FACETECTOMY,OR FORAMINOTOMY,DURING POSTERIOR INTERBODY ARTHRODESIS,LUMBAR; SINGLE VERTEBRAL SEGMENT (WRVU 4.25) (N/A) POSTERIOR SPINAL NON-SEGMENTAL INST.(ONE SPACE) (WRVU 12.52) (N/A) INSERTION INTERBODY BIOMECH DEV TO INTERVEBRAL DISC SPACE, EA INTERSPACE (WRVU 4.25) (N/A) STEREOTACTIC COMPUTER-ASSTD NAVIGATIONAL SPINAL (WRVU 3.75) (N/A) AUTOGRAFT FOR SPINE SURGERY ONLY, SAME INCISION (WRVU *) (N/A) ALLOGRAFT FOR SPINE SURGERY ONLY; MORSELIZED (WRVU *) (N/A) MODIFIER MEDTRONIC-MAGNIFUSE (N/A) MODIFIER MEDTRONIC CATALYFT PL EXPANDABLE INTERBODY SYSTEM (N/A) MODIFIER MEDTRONIC VOYAGER (N/A) MODIFIER FIALITZVH-UOGPY-I (N/A) Left hemilaminectomy L4-5 Transforaminal lumbar interbody fusion and dorsal spinal fusion L4-5 Nonsegmental posterior spinal instrumentation with Solera pedicle screws L4-5 Interbody instrumentation with a Catalift cage L4-5 Stereotactic intraoperative navigation with O-arm and Stealth Nonstructural allograft for spinal fusion CPT: 72980, 95998, 55873, 03483, 77939, 56816 Anesthesia: General Estimated Blood Loss: 100 mL Specimens removed during surgery: None Drains: None Surgical Closure: Primary Closure - skin incision is completely closed without any wires, chilango, drains or other devices Disposition: awakened from anesthesia, extubated and taken to the recovery room in a stable condition, having suffered no apparent untoward event. Condition: doing well without problems Complications: None (Please see the Surgical Encounter Summary for any Implant and Specimen details pertinent to this patient.) Findings: There were no unusual findings of note Surgical Indications: See preoperative documentation Procedure description: The patient was brought to the operating room and identity was verified. General anesthesia was induced. Monitoring devices were placed as appropriate. The patient was positioned prone on the Cerrospinal surgery table. Pressure points were checked and padded as appropriate. A surgical timeout was observed. The patient for the reference frame was tamped into the iliac bone at the posterior superior iliac spine. The reference frame was attached. The O-arm was then utilized to obtain a intraoperative CT scan. The Stealth system and O-arm CT data were utilized to navigate placement of pedicle screws through stab incisions bilaterally at the L4 and L5 vertebral levels. An incision was made to connect the stab incisions for the pedicle screws on the left side. Dissection was carried down between the pedicle screws to the level of the laminae. The quadrant retractor was placed. The operating microscope was brought into the field. Further tissue was cleared as needed and the L4-5 facet joint was exposed. The high-speed drill and rongeurs were used to create a hemilaminectomy and facetectomy allowing for access to Kambin's triangle. Epidural veins were cauterized and divided as necessary. After clearing off the disc, of the disc was entered with sharp dissection. Discectomy was performed in the usual manner. The vertebral body endplates were prepared for arthrodesis using the disc sh avers and curettes. Following for discectomy, the interspace was packed with demineralized bone matrix fiber. An appropriately sized Catalift cage was then tamped into the interspace and expanded according to front office administrator specification. The wound was copiously irrigated. The transverse processes ofL4 and L5 were exposed and additional allograft was placed over the intertransverse space. Hemostasis was obtained. The wound was copiously irrigated. The retractor was withdrawn. The microscope was removed. The appropriate rebeca size was measured and rods were placed using the neurology manager. The cap screws were placed and all of the hardware was torqued to front office administrator specification. The tabs on the screw towers were broken off and removed the wounds were again irrigated. The paraspinous musculature and subcutaneous tissues around the incisions were infiltrated with quarter percent plain Marcaine. The incisions were then closed in layers in the usual fashion. Sponge and needle counts were reported correct. Bret Nicholson MD, FAANS Inspector Machine Cut [employer] of Neurosurgery [facility] [email or web address] 12/15/2023 documented in this encounter Plan of Treatment Upcoming Encounters Date Type Department Care Team (Late st Contact Info) Description 09/05/2024 9:00 AM EDT Office Visit Internal Medicine at [address] [address] [facility] [address] documented as of this encounter Procedures Procedure Name Priority Date/Time Associated Diagnosis Comments RAPID INFLUENZA A/B AND COVID-19 BY PCR (APD/SHARON/NLH/CGP) Routine 12/15/2023 3:39 PM EST RESPIRATORY PANEL PCR Routine 12/15/2023 3:39 PM EST POCT GLUCOSE Routine 12/15/2023 11:52 AM EST XR O-ARM NO RAD - OR USE Routine 12/15/2023 11:35 AM EST MODIFIER [id number] Yes 12/15/2023 7:50 AM EST Spondylolisthesis MODIFIER MEDTRONIC VOYAGER Yes 12/15/2023 7:50 AM EST Spondylolisthesis MODIFIER MEDTRONIC CATALYFT PL EXPANDABLE INTERBODY SYSTEM Yes 12/15/2023 7:50 AM EST Spondylolisthesis MODIFIER MEDTRONIC-MAGNIFUSE Yes 12/15/2023 7:50 AM EST Spondylolisthesis Allograft For Spine Surgery Only Morselized () Yes 12/15/2023 7:50 AM EST Spondylolisthesis Autograft Spine Surgery Local From Same Incision () Yes 12/15/2023 7:50 AM EST Spondylolisthesis Sterotactic Cptr Asstd Px Spinal (71412) Yes 12/15/2023 7:50 AM EST Spondylolisthesis Insert Biomchn Dev Intervertebral Dsc Spc W/Arthrd (26922) Yes 12/15/2023 7:50 AM EST Spondylolisthesis Posterior Non-Segmental Instrumentation (43156) Yes 12/15/2023 7:50 AM EST Spondylolisthesis Burroughs Facetec/Foramot Drg Arthrd Lumbar 1 Vrt Sgm (95229) Yes 12/15/2023 7:50 AM EST Spondylolisthesis Arthrodesis Combined Technique 1 Interspace Lumbar (14825) Yes 12/15/2023 7:50 AM EST Spondylolisthesis POCT GLUCOSE Routine 12/15/2023 6:43 AM EST IMPLANTABLE DEVICES SCAN 12/15/2023 12:00 AM EST documented in this encounter Results [...] who have questions please contact the health care attendant that requested your imaging first. ? Narrative 01/17/2024 10:09 AM EST EXAMINATION: XR [...] patients who have questions please contactthe health care attendant that requested your imaging first. Bret Nicholson MD IMG DX ORDERABLES * Rapid Influenza A/B and COVID-19 by PCR (APD/SHARON/NLH/CGP) (12/15/2023 3:39 PM EST) Influenza A PCR Not Detected Not Detected [facility] Influenza B PCR Not Detected Not Detected [facility] SARS-CoV-2 PCR Not Detected Not Detected [facility] Comment: Testing for SARS-CoV-2 (Severe acute respiratory syndrome coronavirus 2) to aid in the diagnosis of COVID-19 is performed using the Nikhil SARS-CoV-2 and Influenza A/B assay on the Sandee test system (Claudia gestigon) as authorized by the FDA-issued Emergency Use Authorization (EUA). ??This assay is intended for in vitro Diagnostic (IVD) use with nasopharyngeal swabs collected from individuals with clinical signs and symptoms of respiratory viral infection. The assay is performed based on the instructions for use and additional guidance provided by the FDA. Testing is performed in laboratories within the [facility], certified under the Clinical Laboratory Improvement Amendments of 1988 (CLIA), 42 U.S.C. section 263a, to perform high-complexity tests. Assay performance has been verified according to clinical laboratory regulatory requirements. The test result for SARS-CoV-2 provided above should be interpreted in combination with clinical observations, patient history and epidemiological information. Assay performance characteristics have not been evaluated for asymptomatic patients. A result of Not Detected indicates that the viral RNA target is not present but does not preclude SARS-CoV-2 infection. False negative results may occur if a specimen is improperly collected, transported or handled; if amplification inhibitors are present; or if inadequate numbers of viral particles are present in the specimen. A result of Detected suggests a current or recent infection and the patient is presumed to be infected. Positive and negative predictive values for this test are highly dependent on disease prevalence. ??A result of Invalid indicates the inability to conclusively determine the presence or absence of SARS-CoV-2 or Influenza RNA in the sample which can be due to a variety of factors. ??Recollection is recommended in the case of an invalid result. CDC COVID-19 criteria for testing on human specimens and clinical management guidance information are available at the CDC COVID-19 webpage under Information for Healthcare Professionals (https://www.cdc.gov/coronavirus/2019-ncov/hcp/index.html). Additional information about this and other EUA tests can be found in provider and patient fact sheets at the following FDA website: https://www.fda.gov/medical-devices/ygcffbecaeo-vqnrssg-7966-fktvd-58-gpestwzux- use-a bvalofpglmgve-nepgfan-dklewmb/ezyzd-jknrxkgmsda-mlss Resp PCR Source PAR[facility]ALS Swab [facility] Nasopharyngeal Swab 12/15/19 3:39 PM EST 12/15/2023 3:49 PM EST Comment:Symptoms->Fever / Re spiratory Symptoms Narrative Resulting Agency Comment Spec In Lab Zina Lebron Tadeo MELARA MICROBIOLOGY - GEN ERAL ORDERABLES [facility] [address] [place] [address] * (ABNORMAL) Respiratory Panel PCR (12/15/2023 3:39 PM EST) Respiratory Panel Source PARALEGALS Swab [facility] Respiratory Panel PCR Positive(A) Negative [facility] Comment: Respiratory Panels are performed on the [employer]enture, using multiplexed PCR nucleic acid detection. ??Negative results do not preclude respiratory infection and should not be used as the sole basis for diagnosis, treatment or other management decisions. Adenovirus Not Detected Not Detected [facility] Coronavirus HKU1 Not Detected Not Detected [facility] Coronavirus NL63 Not Detected Not Detected [facility] Coronavirus 229E Not Detected Not Detected [facility] Coronavirus OC43 Not Detected Not Detected [facility] SARS-CoV-2 Not Detected Not Detected [facility] Comment: Testing for SARS-CoV-2 (Severe acute respiratory syndrome coronavirus 2) to aid in the diagnosis of COVID-19 is performed using the BioFire Respiratory Panel 2.1 (MyToons) as authorized by the FDA issued Emergency Use Authorization (EUA). This panel also tests for multiple other viral and bacterial pathogens. This assay is intended for In-vitro Diagnostic (IVD) use with nasopharyngeal swabs in viral transport media. The assay is performed based on the instructions for use and additional guidance provided by the FDA. Testing is performed in laboratories within the [facility], each of which is certified under the Clinical Laboratory Improvement Amendments of 1988 (CLIA), 42 U.S.C. section 263a, to perform high-complexity tests. Assay performance has been verified according to clinical laboratory regulatory requirements. The test result for SARS-CoV-2 provided above should be interpreted in combination with the clinical observation, patient history and epidemiological information. For testing of asymptomatic individuals, assay performance characteristics and clinical utility have not been evaluated. ??A result of Not Detected indicates that the viral RNA target is not present but does not preclude SARS-CoV-2 infection. False negative results may occur if a specimen is improperly collected, transported or handled; if amplification inhibitors are present; or if inadequate numbers of viral particles are present in the specimen. When a diagnostic test is negative, the possibility of a false negative result should be considered in the context of a patient's recent exposures and the presence of clinical signs and symptoms consistent with COVID-19. A result of Detected suggests a current or recent infection. Positive and negative predictive values for this test are dependent on disease prevalence. A result of Invalid indicates the inability to conclusively determine the presence or absence of SARS-CoV-2 RNA in the sample which can be due to a variety of factors. ??Collection of a new sample for repeat testing is recommended in the case of an invalid result. CDC COVID-19 criteria for testing on human specimens and clinical management guidance information are available at the CDC Coronavirus Disease 2019 (COVID-19) webpage under Information for Healthcare Professionals (https://www.cdc.gov/coronavirus/2019-ncov/hcp/index.html). Additional information about this and other EUA tests can be found in provider and patient fact sheets at the following FDA website: https://www.fda.gov/medical-devices/cdroduhrafb-wmuisgt-8708-gkxwz-89-itsjppmug- use-a lewpktlkdzgvg-sjygeiz-bupwxvg/skpdj-lfaqhtkfnah-lydy Human Metapneumovirus Not Detected Not Detected [facility] Human Rhinovirus/Enterov irus Not Detected Not Detected [facility] Influenza A Not Detected Not Detected [facility] Influenza B Not Detected Not Detected [facility] Parainfluenza 1 Not Detected Not Detected [facility] Parainfluenza 2 Not Detected Not Detected [facility] Parainfluenza 3 Not Detected Not Detected [facility] Parainfluenza 4 Not Detected Not Detected [facility] Respiratory Syncytial Virus Detected(A) Not Detected [facility] Chlamydophila pneumoniae Not Detected Not Detected [facility] Mycoplasma pneumoniae Not Detected Not Detected [facility] Nasopharyngeal Swab 12/15/19 3:39 PM EST 12/15/2023 7:13 PM EST Narrative Resulting Agency Comment Spec In Lab Zina Vi Piedra [employer] MICROBIOLOGY - GEN ERAL ORDERABLES Performing Organization Address City/[facility]/ZIP Co de Phone Number [facility] [place] [address] * (ABNORMAL) POCT Glucose (12/15/2023 11:52 AM EST) Glucose, POC 245(H) 65 - 199 mg/dL [facility] Comment: Supplemental ranges: <140 mg/dL before meals <180 mg/dL all other times of the day Blood 12/15/2023 11:5 2 AM EST 12/15/2023 11:52 AM EST Bret Nicholson MD POINT OF CARE TEST O RDERARUBÉN Performing Organization Address [facility] Co de Phone Number [facility] [address] [place] [address] * XR O-Arm No Rad <1Hr - OR Use (12/15/2023 11:35 AM EST) Narrative Dicom, Auditing User - 12/15/2023 11:36 AM EST This exam is auto-finalizing. No interpretation was done. Bret Nicholson MD IMG FLUORO ORDERABLE S * POCT Glucose (12/15/2023 6:43 AM EST) Glucose, POC 169 65 - 199 mg/dL [facility] Comment: Supplemental ranges: <140 mg/dL before meals <180 mg/dL all other times of the day Blood 12/15/2023 6:43 AM EST 12/15/2023 6:43 AM EST Bret Nicholson MD POINT OF CARE TEST O RDERARUBÉN [facility] [address] [place] [address] * SCAN DOC: IMPLANTABLE DEVICES (12/15/2023 12:00 AM EST) Narrative 12/15/2023 12:00 AM EST Ordered by an unspecified provider. Scanning Provider MEDIA MGR SCAN EXT O RDR/RSLT documented in this encounter Visit Diagnoses Not on filedocumented in this encounter Admitting Diagnoses Diagnosis Spondylolisthesis at L4-L5 level documented in this encounter Administered Medications Inactive Administered Medications - up to 3 most recent administrations Medication Order MAR Action Action Date Dose Rate Site acetaminophen (Ofirmev) (1,000 mg/100 mL) infusion 1,000 mg 1,000 mg, Intravenous, at 400 mL/hr, Administer over 15 Minutes, ONCE, 1 dose, On Mon12/15/23 at 1130, Maximum dose of acetaminophen is 4000 mg from all sources in 24 hours. When ordered for pain, acetaminophen should be given even when other ordered pain medications are indicated. , PACU Recovery, Routine, Is ketorolac (Toradol) IV contraindicated? Yes, Can this patient tolerate oral medications or suppositories? No Given 12/15/2023 11:30 AM EST 1,000 mg 400 mL/hr acetaminophen (Tylenol) tablet 650 mg 650 mg, Oral, EVERY 4 HOURS PRN, Starting on Mon12/15/23 at 1302, Until 12/16/23 at 1343, Pain, For MILD pain (1-3), Routine Given 12/15/2023 10:06 PM EST 650 mg budesonide (Pulmicort) nebulizer suspension 500 mcg 500 mcg, Nebulization, 2 TIMES DAILY (RESPIRATORY THERAPY), First dose on Mon12/15/23 at 2000, Until Discontinued, Rinse mouth with water (spit out without swallowing) after each use., Routine Given 12/16/2023 7:39 AM EST 500 mcg Given 12/15/2023 7:40 PM EST 500 mcg BUpivacaine-EPINEPHrine (Marcaine-epiNEPHrine) 0.25 %-1:200,000 injection PRN, Starting on Mon12/15/23 at 0859, Until Mon12/15/23 at 1259, Intra-Operative (Intra-Procedure), Routine Given 12/15/2023 8:59 AM EST 30 mLs 19- Surgical Site busPIRone (Buspar) tablet 5 mg 5 mg, Oral, 3 TIMES DAILY, First dose on Mon12/15/23 at 1500, Until Discontinued, Routine Given 12/16/2023 8:04 AM EST 5 mg Given 12/15/2023 10:02 PM EST 5 mg Given 12/15/2023 2:24 PM EST 5 mg cyclobenzaprine (Flexeril) tablet 10 mg 10 mg, Oral, 3 TIMES DAILY PRN, Starting on Mon12/15/23 at 1302, Until 12/16/23 at 1343, Muscle spasms, Routine Given 12/15/2023 1:27 PM EST 10 mg dextrose 10% infusion 250 mL, at 1,000 mL/hr, Intravenous, EVERY 15 MIN PRN, Starting on Mon12/15/23 at 1302, Until 12/16/23 at 1343, For BG 50-70 mg/dL: Oral treatment preferred: If able to drink, give 120 mL juice or regular (not diet) soda OR if NPO, give 15 gram glucose 40% oral gel massaged into buccal mucosa OR if unconscious or uncooperative, give 25 gram (250 mL) dextrose 10% IV over 15 minutes per protocol OR, if no IV access, 1 mg glucagon IM. For BG less than 50 mg/dL: Oral treatment preferred: If able to drink, give 240 mL juice or regular (not diet) soda OR if NPO, give 30 gram glucose 40% oral gel massaged in buccal mucosa OR if unconscious or uncooperative, give 25 gram (250 mL) dextrose 10% IV over 15 minutes per protocol OR, if no IV access, 1 mg glucagon IM. Recheck BG in 15 minutes. May repeat juice/soda, gel, dextrose or glucagon once per episode. Notify provider if hypoglycemia does not resolve after two treatments. Providers should consider the following: administering longer-acting treatments for the duration of active insulin or hypoglycemia agent for persistent hypoglycemia and re-evaluating active insulin orders before administering the next dose. docusate sodium (Colace) capsule 100 mg 100 mg, Oral, 2 TIMES DAILY, First dose on Mon12/15/23 at 1400, Until Discontinued, Routine Given 12/16/2023 8:04 AM EST 100 mg Given 12/15/2023 10:01 PM EST 100 mg Given 12/15/2023 1:39 PM EST 100 mg fentaNYL (pf) (50 mcg/mL) multi-dose injection 12.5-25 mcg 12.5-25 mcg, Intravenous, EVERY 5 MIN PRN, Starting on Mon12/15/23 at 1110, Until 12/15/23 at 1301, Pain, Give 12.5 mcg every 5 minutes PRN for mild to moderate pain (1-5) Give 25 mcg every 5 minutes PRN for moderate to severe pain (6-10). Hold for respiratory rate less than 10 per minute. Maximum dose 250 mcg over one hour. If multiple pain medications are ordered, start with HYDROmorphone or morphine and use fentaNYL for breakthrough pain., PACU Recovery, Routine Given 12/15/2023 12:29 PM EST 12.5 mcg Given 12/15/2023 12:13 PM EST 25 mcg glucagon (Glucagen) (1 mg/mL) injection solution 1 mg 1 mg, Intramuscular, EVERY 15 MIN PRN, Starting on Mon12/15/23 at 1302, Until 12/16/23 at 1343, Low blood sugar, For BG 50-70 mg/dL: Oral treatment preferred: If able to drink, give 120 mL juice or regular (not diet) soda OR if NPO, give 15 gram glucose 40% oral gel massaged into buccal mucosa OR if unconscious or uncooperative, give 25 gram (250 mL) dextrose 10% IV over 15 minutes per protocol OR, if no IV access, 1 mg glucagon IM. For BG less than 50 mg/dL: Oral treatment preferred: If able to drink, give 240 mL juice or regular (not diet) soda OR if NPO, give 30 gram glucose 40% oral gel massaged in buccal mucosa OR if unconscious or uncooperative, give 25 gram (250 mL) dextrose 10% IV over 15 minutes per protocol OR, if no IV access, 1 mg glucagon IM. Recheck BG in 15 minutes. May repeat juice/soda, gel, dextrose or glucagon once per episode. Notify provider if hypoglycemia does not resolve after two treatments. Providers should consider the following: administering longer-acting treatments for the duration of active insulin or hypoglycemia agent for persistent hypoglycemia and re-evaluating active insulin orders before administering the next dose. , Routine glucose (Glutose) 40% oral geL 15-30 g of glucose, Buccal, EVERY 15 MIN PRN, Starting on Mon12/15/23 at 1302, Until 12/16/23 at 1343, Low blood sugar, For BG 50-70 mg/dL: Oral treatment preferred: If able to drink, give 120 mL juice or regular (not diet) soda OR if NPO, give 15 gram glucose 40% oral gel massaged into buccal mucosa OR if unconscious or uncooperative, give 25 gram (250 mL) dextrose 10% IV over 15 minutes per protocol OR, if no IV access, 1 mg glucagon IM. For BG less than 50 mg/dL: Oral treatment preferred: If able to drink, give 240 mL juice or regular (not diet) soda OR if NPO, give 30 gram glucose 40% oral gel massaged in buccal mucosa OR if unconscious or uncooperative, give 25 gram (250 mL) dextrose 10% IV over 15 minutes per protocol OR, if no IV access, 1 mg glucagon IM. Recheck BG in 15 minutes. May repeat juice/soda, gel, dextrose or glucagon once per episode. Notify provider if hypoglycemia does not resolve after two treatments. Providers should consider the following: administering longer-acting treatments for the duration of active insulin or hypoglycemia agent for persistent hypoglycemia and re-evaluating active insulin orders before administering the next dose. 1 tube of Glutose-15 contains 15 grams of glucose (net weight of tube = 37.5 grams.), Routine hydroCHLOROthiazide (Hydrodiuril) tablet 25 mg 25 mg, Oral, DAILY, First dose (after last modification) on 12/16/23 at 0900, Until Discontinued, Routine Given 12/16/2023 8:04 AM EST 25 mg HYDROmorphone (Dilaudid) (1 mg/mL) injection syringe 0.5 mg 0.5 mg, Intravenous, EVERY 3 HOURS PRN, Starting on Mon12/15/23 at 1302, Until 12/16/23 at 1343, Pain, For SEVERE pain (7-10) not controlled by oral pain medications. Give only if patient is awake/alert., Routine Given 12/15/2023 4:22 PM EST 0.5 mg ipratropium-albuteroL (Duoneb) 0.5 mg-3 mg(2.5 mg base)/3 mL nebulizer solution 3 mL 3 mL, Nebulization, ONCE, 1 dose, On Mon12/15/23 at 0715, Day of Surgery (Day of Procedure), Routine Given 12/15/2023 6:55 AM EST 3 mLs ipratropium-albuteroL (Duoneb) 0.5 mg-3 mg(2.5 mg base)/3 mL nebulizer solution 3 mL 3 mL, Nebulization, ONCE, 1 dose, On Mon12/15/23 at 1230, PACU Recovery, Routine Given 12/15/2023 12:30 PM EST 3 m Ls ipratropium-albuteroL (Duoneb) 0.5 mg-3 mg(2.5 mg base)/3 mL nebulizer solution 3 mL 3 mL, Nebulization, EVERY 6 HOURS SCHEDULED, First dose (after last modification) on Mon12/15/23 at 1700, Until Discontinued, PACU Recovery, Routine Given 12/16/2023 7:39 AM EST 3 mLs Given 12/15/2023 11:44 PM EST 3 mLs Given 12/15/2023 5:13 PM EST 3 mLs ipratropium-albuteroL (Duoneb) 0.5 mg-3 mg(2.5 mg base)/3 mL nebulizer solution 1 dose, Starting on Mon12/15/23 at 1140, Until Mon12/15/23 at 1230, Jake Davila: cabinet override lactated ringers infusion 1,000 mL, at 100 mL/hr, Intravenous, CONTINUOUS, Starting on Mon12/15/23 at 0645, Until Mon12/15/23 at 1301, Day of Surgery (Day of Procedure) Restarted 12/15/2023 7:50 AM EST New Bag 12/15/2023 7:00 AM EST 1,000 mLs 100 mL/hr lisinopriL (Zestril) tablet 40 mg 40 mg, Oral, DAILY, First dose (after last modification) on Mon12/16/23 at 0900, Until Discontinued, Routine Given 12/16/2023 8:04 AM EST 40 mg metFORMIN (Glucophage) tablet 1,000 mg 1,000 mg, Oral, DAILY, First dose on Mon12/15/23 at 1400, Until Discontinued, Routine Given 12/16/2023 8:05 AM EST 1,000 mg Given 12/15/2023 1:39 PM EST 1,000 mg metoprolol succinate XL (Toprol-XL) tablet 50 mg 50 mg, Oral, DAILY, First dose (after last modification) on 12/16/23 at 0900, Until Discontinued, DO NOT CRUSH OR OPEN, Routine Given 12/16/2023 8:04 AM EST 50 mg ondansetron (pf) (Zofran) (2 mg/mL) injection 4 mg 4 mg, Intravenous, EVERY 8 HOURS PRN, Starting on Mon12/15/23 at 1302, Until 12/16/23 at 1343, Nausea, Vomiting, If multiple antiemetics are ordered, use ondansetron first. Only give IV if unable to take PO, Routine ondansetron ODT (Zofran-ODT) disintegrating tablet 4 mg 4 mg, Oral, EVERY 8 HOURS PRN, Starting on Mon12/15/23 at 1302, Until 12/16/23 at 1343, Nausea, Vomiting, If multiple antiemetics are ordered, use ondansetron first. PO Preferred. If patient unable to take PO, may give IV if ordered., Routine oxyCODONE (Roxicodone) tablet 10 mg 10 mg, Oral, EVERY 4 HOURS PRN, Starting on Mon12/15/23 at 1302, Until 12/16/23 at 1343, Pain, For SEVERE pain (7-10), Routine Given 12/16/2023 11:30 AM EST 10 mg Given 12/16/2023 7:28 AM EST 10 mg Given 12/15/2023 10:52 PM EST 10 mg oxyCODONE (Roxicodone) tablet 5 mg 5 mg, Oral, EVERY 4 HOURS PRN, Starting on Mon12/15/23 at 1302, Until 12/16/23 at 1343, Pain, For MODERATE pain (4-6) not relieved by traMADol if ordered., Routine Given 12/15/2023 1:27 PM EST 5 mg pantoprazole EC (Protonix) tablet 40 mg 40 mg, Oral, DAILY, First dose on 12/16/23 at 0900, Until Discontinued Given 12/16/2023 8:04 AM EST 40 mg pramipexole (Mirapex) tablet 0.5 mg 0.5 mg, Oral, NIGHTLY, First dose on Mon12/15/23 at 2100, Until Discontinued, Routine Given 12/15/2023 10:0 1 PM EST 0.5 mg prochlorperazine (Compazine) (5 mg/mL) injection 10 mg 10 mg, Intravenous, EVERY 6 HOURS PRN, Starting on Mon12/15/23 at 1302, Until 12/16/23 at 1343, Nausea, Nausea/Vomiting, If multiple antiemetics are ordered, use ondansetron first. If ondansetron ineffective use prochlorperazine. Only give IV if unable to take PO, Routine prochlorperazine (Compazine) tablet 10 mg 10 mg, Oral, EVERY 6 HOURS PRN, Starting on Mon12/15/23 at 1302, Until 12/16/23 at 1343, Nausea, Nausea/Vomiting, If multiple antiemetics are ordered, use ondansetron first. If ondansetron ineffective use prochlorperazine. PO Preferred. If patient unable to take PO, may give IV if ordered., Routine senna (Senokot) tablet 8.6 mg 8.6 mg, Oral, 2 TIMES DAILY, First dose on Mon12/15/23 at 1400, Until Discontinued, Routine Given 12/16/2023 8:05 AM EST 8.6 mg Given 12/15/2023 10:02 PM EST 8.6 mg Given 12/15/2023 1:39 PM EST 8.6 mg sodium chloride 0.9 % (flush) (BD PosiFlush Normal Saline 0.9) flush 3 mL 3 mL, Intravenous, EVERY 12 HOURS SCHEDULED (2 times per day), First dose on Mon12/15/23 at 1400, Until Discontinued, Routine Given 12/16/2023 8:09 AM EST 3 mLs Given 12/15/2023 10:02 PM EST 3 mLs sodium chloride 0.9% infusion 1,000 mL, at 100 mL/hr, Intravenous, CONTINUOUS, Starting on Mon12/15/23 at 1400, Until 12/16/23 at 1343 New Bag 12/15/2023 1:39 PM EST 1,000 mLs 100 m L/hr documented in this encounter Active and Recently Administered Medications Times are shown in EST. Scheduled Medication Order 12/14/2023 12/15/2023 12/16/2023 acetaminophen (Ofirmev) (1,000 mg/100 mL) infusion 1,000 mg (COMPLETED) 1,000 mg, Intravenous, at 400 mL/hr, Administer over 15 Minutes, ONCE, 1 dose, On Mon12/15/23 at 1130, Maximum dose of acetaminophen is 4000 mg from all sources in 24 hours. When ordered for pain, acetaminophen should be given even when other ordered pain medications are indicated. , PACU Recovery, Routine, Is ketorolac (Toradol) IV contraindicated? Yes, Can this patient tolerate oral medications or suppositories? No 1130 (Given - Provider: Jake Davila, VEL) budesonide (Pulmicort) nebulizer suspension 500 mcg 500 mcg, Nebulization, 2 TIMES DAILY (RESPIRATORY THERAPY), First dose on Mon12/15/23 at 2000, Until Discontinued, Rinse mouth with water (spit out without swallowing) after each use., Routine 1940 (Given - Provider: Son Morrison, RT) 0739 (Given - Provider: RT Andria) busPIRone (Buspar) tablet 5 mg 5 mg, Oral, 3 TIMES DAILY, First dose on Mon12/15/23 at 1500, Until Discontinued, Routine 1424 (Given - Provider: Siobhan Rodriguez RN)2202 (Given - Provider: Joya Gardner RN) 0804 (Given - Provider: Siobhan Rodriguez RN) ceFAZolin (Ancef) 2 g vial attach to sodium chloride 0.9% 100 mL Mini-Bag Plus (COMPLETED) 2 g, Intravenous, ONCE, 1 dose, On Mon12/15/23 at 0645, Administer over 30 Minutes, To be administered upon arrival to the OR within one hour prior to incision., Day of Surgery (Day of Procedure), Indication for (Active or Suspected): Prophylaxis 0804 (New Bag - Provider: Amilcar Currie CRNA)0807 (Bolus - Provider: Amilcar Currie CRNA - Comment: per surgeon request) docusate sodium (Colace) capsule 100 mg 100 mg, Oral, 2 TIMES DAILY, First dose on Mon12/15/23 at 1400, Until Discontinued, Routine 1339 (Given - Provider: Siobhan Rodriguez RN)2201 (Given - Provider: Joya Gardner RN) 0804 (Given - Provider: Siobhan Rodriguez RN) hydroCHLOROthiazide (Hydrodiuril) tablet 25 mg 25 mg, Oral, DAILY, First dose (after last modification) on 12/16/23 at 0900, Until Discontinued, Routine 0804 (Given - Provid er: Siobhan Rodriguez RN) ipratropium-albuteroL (Duoneb) 0.5 mg-3 mg(2.5 mg base)/3 mL nebulizer solution 3 mL (COMPLETED) 3 mL, Nebulization, ONCE, 1 dose, On Mon12/15/23 at 0715, Day of Surgery (Day of Procedure), Routine 0655 (Given - Provider: Mere Ritchie RN - Comment: retrieved & administered by Hayder Currie CRNA) ipratropium-albuteroL (Duoneb) 0.5 mg-3 mg(2.5 mg base)/3 mL nebulizer solution 3 mL (COMPLETED) 3 mL, Nebulization, ONCE, 1 dose, On Mon12/15/23 at 1230, PACU Recovery, Routine 1230 (Given - Provider: Jake Davila RN - Comment: BR[employer]TER administrtation) ipratropium-albuteroL (Duoneb) 0.5 mg-3 mg(2.5 mg base)/3 mL nebulizer solution 3 mL 3 mL, Nebulization, EVERY 6 HOURS SCHEDULED, First dose (after last modification) on Mon12/15/23 at 1700, Until Discontinued, PACU Recovery, Routine 1713 (Given - Provider: Son Morrison, RT)2344 (Given - Provider: Son Morrison RT) 0739 (Given - Provider: Gonsalo Hurtado RT) lisinopriL (Zestril) tablet 40 mg 40 mg, Oral, DAILY, First dose (after last modification) on 12/16/23 at 0900, Until Discontinued, Routine 0804 (Given - Provid er: Siobhan Rodriguez RN) metFORMIN (Glucophage) tablet 1,000 mg 1,000 mg, Oral, DAILY, First dose on Mon12/15/23 at 1400, Until Discontinued, Routine 1339 (Given - Provider: Siobhan Rodriguez RN) 08 (Given - Provider: Siobhan Rodriguez RN) metoprolol succinate XL (Toprol-XL) tablet 50 mg 50 mg, Oral, DAILY, First dose (after last modification) on 12/16/23 at 0900, Until Discontinued, DO NOT CRUSH OR OPEN, Routine 08 (Given - Provid er: Siobhan Rodriguez RN) pantoprazole EC (Protonix) tablet 40 mg 40 mg, Oral, DAILY, First dose on Mon12/16/23 at 0900, Until Discontinued 08 (Given - Provid er: Siobhan Rodriguez RN) pramipexole (Mirapex) tablet 0.5 mg 0.5 mg, Oral, NIGHTLY, First dose on Mon12/15/23 at 2100, Until Discontinued, Routine 2200 (Given - Provider: Joya Gardner RN) senna (Senokot) tablet 8.6 mg 8.6 mg, Oral, 2 TIMES DAILY, First dose on Mon12/15/23 at 1400, Until Discontinued, Routine 1339 (Given - Provider: Siobhan Rodriguez RN)220 (Given - Provider: Joya Gardner RN) 08 (Given - Provider: Siobhan Rodriguez, VEL) sodium chloride 0.9 % (flush) (BD PosiFlush Normal Saline 0.9) flush 3 mL 3 mL, Intravenous, EVERY 12 HOURS SCHEDULED (2 times per day), First dose on Mon12/15/23 at 1400, Until Discontinued, Routine 1400 (Not Given - Provider: Siobhan Rodriguez RN - Reason: See comment - Comment: IVF infusing)220 (Given - Provider: Joya Gardner RN) 0809 (Given - Provider: Siobhan Rodriguez RN) varenicline (Chantix) tablet 1 mg 1 mg, Oral, 2 TIMES DAILY WITH MEALS, First dose on Mon12/15/23 at 1700, Until Discontinued, To be taken in middle of largest meals with glass of water , Routine 1700 (Not Given - Provider: Siobhan Rodriguez RN - Reason: See comment - Comment: Pt did not bring in med. To resume tomorrow after d/c.) 0800 (Not Given - Provider: Siobhan Rodriguez RN - Reason: Medication not available) vortioxetine (Trintellix) Tablet 20 mg 20 mg, Oral, EVERY MORNING, First dose on 12/16/23 at 0700, Until Discontinued 0700 (Not Given - Provider: Joya Gardner RN - Reason: Medication not available) Continuous Medication Order 12/14/2023 12/15/2023 12/16/2023 lactated ringers infusion (CANCELED) 1,000 mL, at 100 mL/hr, Intravenous, CONTINUOUS, Starting on Mon12/15/23 at 0645, Until Mon12/15/23 at 1301, Day of Surgery (Day of Procedure) 0700 (New Bag - Provider: Yoni Ritchie RN)0749 (Paused - Provider: Amilcar Currie CRNA - Comment: Switch to gravity)0750 (Restarted - Provider: Amilcar Currie CRNA)0904 (Anesthesia Volume Adjustment - Provider: Amilcar Currie CRNA)1301 (Stopped - Provider: Siobhan Rodriguez RN) sodium chloride 0.9% infusion 1,000 mL, at 100 mL/hr, Intravenous, CONTINUOUS, Starting on Mon12/15/23 at 1400, Until 12/16/23 at 1343 1339 (New Bag - Provider: Siobhan Rodriguez RN)2300 (Stopped - Provider: Joya Gardner RN) PRN Medication Order 12/14/2023 12/15/2023 12/16/2023 acetaminophen (Tylenol) tablet 650 mg 650 mg, Oral, EVERY 4 HOURS PRN, Starting on Mon12/15/23 at 1302, Until 12/16/23 at 1343, Pain, For MILD pain (1-3), Routine 2205 (Given - Provider: Joya Gardner, VEL) albuteroL (Proventil, Ventolin) (2.5 mg/3 mL) (0.083 %) nebulizer solution 2.5 mg 2.5 mg, Nebulization, EVERY 4 HOURS PRN, Starting on Mon12/15/23 at 1302, Until 12/16/23 at 1343, Wheezing, Day of Surgery (Day of Procedure), Routine bisacodyL (Dulcolax) suppository 10 mg 10 mg, Rectal, DAILY PRN, Starting on Mon12/15/23 at 1302, Until 12/16/23 at 1343, Constipation, Administer if no bowel movement and polyethylene glycoL (Miralax) and magnesium hydroxide (Milk of Magnesium) given with no results. If multiple PRN bowel medications ordered, start with polyethylene glycoL (Miralax), magnesium hydroxide (Milk of Magnesium), then bisacodyL. Multiple medications may be given concomitantly for constipation. , Routine BUpivacaine-EPINEPHrine (Marcaine-epiNEPHrine) 0.25 %-1:200,000 injection (CANCELED) PRN, Starting on Mon12/15/23 at 0859, Until Mon12/15/23 at 1259, Intra-Operative (Intra-Procedure), Routine 0859 (Given - Provider: Bret Nicholson MD) cyclobenzaprine (Flexeril) tablet 10 mg 10 mg, Oral, 3 TIMES DAILY PRN, Starting on Mon12/15/23 at 1302, Until 12/16/23 at 1343, Muscle spasms, Routine 1327 (Given - Provider: Siobhan Rodriguez RN) dextrose 10% infusion(Linked Group 1) 250 mL, at 1,000 mL/hr, Intravenous, EVERY 15 MIN PRN, Starting on Mon12/15/23 at 1302, Until 12/16/23 at 1343, For BG 50-70 mg/dL: Oral treatment preferred: If able to drink, give 120 mL juice or regular (not diet) soda OR if NPO, give 15 gram glucose 40% oral gel massaged into buccal mucosa OR if unconscious or uncooperative, give 25 gram (250 mL) dextrose 10% IV over 15 minutes per protocol OR, if no IV access, 1 mg glucagon IM. For BG less than 50 mg/dL: Oral treatment preferred: If able to drink, give 240 mL juice or regular (not diet) soda OR if NPO, give 30 gram glucose 40% oral gel massaged in buccal mucosa OR if unconscious or uncooperative, give 25 gram (250 mL) dextrose 10% IV over 15 minutes per protocol OR, if no IV access, 1 mg glucagon IM. Recheck BG in 15 minutes. May repeat juice/soda, gel, dextrose or glucagon once per episode. Notify provider if hypoglycemia does not resolve after two treatments. Providers should consider the following: administering longer-acting treatments for the duration of active insulin or hypoglycemia agent for persistent hypoglycemia and re-evaluating active insulin orders before administering the next dose. fentaNYL (pf) (50 mcg/mL) multi-dose injection 12.5-25 mcg (CANCELED) 12.5-25 mcg, Intravenous, EVERY 5 MIN PRN, Starting on Mon12/15/23 at 1110, Until Mon12/15/23 at 1301, Pain, Give 12.5 mcg every 5 minutes PRN for mild to moderate pain (1-5) Give 25 mcg every 5 minutes PRN for moderate to severe pain (6-10). Hold for respiratory rate less than 10 per minute. Maximum dose 250 mcg over one hour. If multiple pain medications are ordered, start with HYDROmorphone or morphine and use fentaNYL for breakthrough pain., PACU Recovery, Routine 1213 (Given - Provider: Jake Davila, RN)1229 (Given - Provider: Jake Davila, RN) glucagon (Glucagen) (1 mg/mL) injection solution 1 mg(Linked Group 1) 1 mg, Intramuscular, EVERY 15 MIN PRN, Starting on Mon12/15/23 at 1302, Until 12/16/23 at 1343, Low blood sugar, For BG 50-70 mg/dL: Oral treatment preferred: If able to drink, give 120 mL juice or regular (not diet) soda OR if NPO, give 15 gram glucose 40% oral gel massaged into buccal mucosa OR if unconscious or uncooperative, give 25 gram (250 mL) dextrose 10% IV over 15 minutes per protocol OR, if no IV access, 1 mg glucagon IM. For BG less than 50 mg/dL: Oral treatment preferred: If able to drink, give 240 mL juice or regular (not diet) soda OR if NPO, give 30 gram glucose 40% oral gel massaged in buccal mucosa OR if unconscious or uncooperative, give 25 gram (250 mL) dextrose 10% IV over 15 minutes per protocol OR, if no IV access, 1 mg glucagon IM. Recheck BG in 15 minutes. May repeat juice/soda, gel, dextrose or glucagon once per episode. Notify provider if hypoglycemia does not resolve after two treatments. Providers should consider the following: administering longer-acting treatments for the duration of active insulin or hypoglycemia agent for persistent hypoglycemia and re-evaluating active insulin orders before administering the next dose. , Routine glucose (Glutose) 40% oral geL(Linked Group 1) 15-30 g of glucose, Buccal, EVERY 15 MIN PRN, Starting on Mon12/15/23 at 1302, Until 12/16/23 at 1343, Low blood sugar, For BG 50-70 mg/dL: Oral treatment preferred: If able to drink, give 120 mL juice or regular (not diet) soda OR if NPO, give 15 gram glucose 40% oral gel massaged into buccal mucosa OR if unconscious or uncooperative, give 25 gram (250 mL) dextrose 10% IV over 15 minutes per protocol OR, if no IV access, 1 mg glucagon IM. For BG less than 50 mg/dL: Oral treatment preferred: If able to drink, give 240 mL juice or regular (not diet) soda OR if NPO, give 30 gram glucose 40% oral gel massaged in buccal mucosa OR if unconscious or uncooperative, give 25 gram (250 mL) dextrose 10% IV over 15 minutes per protocol OR, if no IV access, 1 mg glucagon IM. Recheck BG in 15 minutes. May repeat juice/soda, gel, dextrose or glucagon once per episode. Notify provider if hypoglycemia does not resolve after two treatments. Providers should consider the following: administering longer-acting treatments for the duration of active insulin or hypoglycemia agent for persistent hypoglycemia and re-evaluating active insulin orders before administering the next dose. 1 tube of Glutose-15 contains 15 grams of glucose (net weight of tube = 37.5 grams.), Routine HYDROmorphone (Dilaudid) (1 mg/mL) injection syringe 0.5 mg 0.5 mg, Intravenous, EVERY 3 HOURS PRN, Starting on Mon12/15/23 at 1302, Until 12/16/23 at 1343, Pain, For SEVERE pain (7-10) not controlled by oral pain medications. Give only if patient is awake/alert., Routine 1622 (Given - Provider: Siobhan Rodriguez RN) ipratropium-albuteroL (Duoneb) 0.5 mg-3 mg(2.5 mg base)/3 mL nebulizer solution 3 mL 3 mL, Nebulization, EVERY 4 HOURS PRN, Starting on Mon12/15/23 at 1302, Until 12/16/23 at 1343, Wheezing, Routine magnesium hydroxide (Milk of Magnesia) (240 mg/mL) oral liquid 10 mL 10 mL, Oral, ONCE PRN, 1 dose, Starting on Mon12/15/23 at 1302, Until 12/16/23 at 1343, Constipation, Administer if no bowel movement and polyethylene glycoL (Miralax) given with no results. If multiple PRN bowel medications ordered, start with polyethylene glycoL (Miralax), magnesium hydroxide (Milk of Magnesium), then bisacodyL. Multiple medications may be given concomitantly for constipation. 10 mL concentrate = 30 mL regular , Routine ondansetron (pf) (Zofran) (2 mg/mL) injection 4 mg(Linked Group 2) 4 mg, Intravenous, EVERY 8 HOURS PRN, Starting on Mon12/15/23 at 1302, Until 12/16/23 at 1343, Nausea, Vomiting, If multiple antiemetics are ordered, use ondansetron first. Only give IV if unable to take PO, Routine ondansetron ODT (Zofran-ODT) disintegrating tablet 4 mg(Linked Group 2) 4 mg, Oral, EVERY 8 HOURS PRN, Starting on Mon12/15/23 at 1302, Until 12/16/23 at 1343, Nausea, Vomiting, If multiple antiemetics are ordered, use ondansetron first. PO Preferred. If patient unable to take PO, may give IV if ordered., Routine oxyCODONE (Roxicodone) tablet 10 mg(Linked Group 3) 10 mg, Oral, EVERY 4 HOURS PRN, Starting on Mon12/15/23 at 1302, Until 12/16/23 at 1343, Pain, For SEVERE pain (7-10), Routine 1327 (See Alternative - Provider: Siobhan Rodriguez RN)1831 (Given - Provider: Siobhan Rodriguez RN)2252 (Given - Provider: Joya Gardner RN) 0728 (Given - Provider: Siobhan Rodriguez, VEL)1130 (Given - Provider: Siobhan Rodriguez RN) oxyCODONE (Roxicodone) tablet 5 mg(Linked Group 3) 5 mg, Oral, EVERY 4 HOURS PRN, Starting on Mon12/15/23 at 1302, Until 12/16/23 at 1343, Pain, For MODERATE pain (4-6) not relieved by traMADol if ordered., Routine 1327 (Given - Provider: Siobhan Rodriguez RN)1831 (See Alternative - Provider: Siobhan Rodriguez, VEL)2252 (See Alternative - Provider: Joya Gardner RN) 0728 (See Alternative - Provider: Siobhan Rodriguez RN)1130 (See Alternative - Provider: Siobhan Rodriguez RN) polyethylene glycoL (Miralax) packet 17 g 17 g, Oral, DAILY PRN, Starting on Mon12/15/23 at 1302, Until 12/16/23 at 1343, Constipation, Administer if no bowel movement. If multiple PRN bowel medications ordered, start with polyethylene glycoL (Miralax), magnesium hydroxide (Milk of Magnesium), then bisacodyL. Multiple medications may be given concomitantly for constipation. , Routine prochlorperazine (Compazine) (5 mg/mL) injection 10 mg(Linked Group 4) 10 mg, Intravenous, EVERY 6 HOURS PRN, Starting on Mon12/15/23 at 1302, Until 12/16/23 at 1343, Nausea, Nausea/Vomiting, If multiple antiemetics are ordered, use ondansetron first. If ondansetron ineffective use prochlorperazine. Only give IV if unable to take PO, Routine prochlorperazine (Compazine) tablet 10 mg(Linked Group 4) 10 mg, Oral, EVERY 6 HOURS PRN, Starting on Mon12/15/23 at 1302, Until 12/16/23 at 1343, Nausea, Nausea/Vomiting, If multiple antiemetics are ordered, use ondansetron first. If ondansetron ineffective use prochlorperazine. PO Preferred. If patient unable to take PO, may give IV if ordered., Routine sodium chloride 0.9 % (flush) (BD PosiFlush Normal Saline 0.9) flush 5-20 mL 5-20 mL, Intravenous, EVERY 1 MIN PRN, Starting on Mon12/15/23 at 1302, Until 12/16/23 at 1343, flush, Flush pertains to all indwelling lines. Flush per protocol found in the job aid using the link provided on this medication record., Routine Linked Groups Order Group 1: glucose (Glutose) 40% oral geLJump to med 15-30 g of glucose, Buccal, EVERY 15 MIN PRN, Starting on Mon12/15/23 at 1302, Until 12/16/23 at 1343, Low blood sugar, For BG 50-70 mg/dL: Oral treatment preferred: If able to drink, give 120 mL juice or regular (not diet) soda OR if NPO, give 15 gram glucose 40% oral gel massaged into buccal mucosa OR if unconscious or uncooperative, give 25 gram (250 mL) dextrose 10% IV over 15 minutes per protocol OR, if no IV access, 1 mg glucagon IM. For BG less than 50 mg/dL: Oral treatment preferred: If able to drink, give 240 mL juice or regular (not diet) soda OR if NPO, give 30 gram glucose 40% oral gel massaged in buccal mucosa OR if unconscious or uncooperative, give 25 gram (250 mL) dextrose 10% IV over 15 minutes per protocol OR, if no IV access, 1 mg glucagon IM. Recheck BG in 15 minutes. May repeat juice/soda, gel, dextrose or glucagon once per episode. Notify provider if hypoglycemia does not resolve after two treatments. Providers should consider the following: administering longer-acting treatments for the duration of active insulin or hypoglycemia agent for persistent hypoglycemia and re-evaluating active insulin orders before administering the next dose. 1 tube of Glutose-15 contains 15 grams of glucose (net weight of tube = 37.5 grams.), Routine Or dextrose 10% infusionJump to med 250 mL, at 1,000 mL/hr, Intravenous, EVERY 15 MIN PRN, Starting on Mon12/15/23 at 1302, Until 12/16/23 at 1343, For BG 50-70 mg/dL: Oral treatment preferred: If able to drink, give 120 mL juice or regular (not diet) soda OR if NPO, give 15 gram glucose 40% oral gel massaged into buccal mucosa OR if unconscious or uncooperative, give 25 gram (250 mL) dextrose 10% IV over 15 minutes per protocol OR, if no IV access, 1 mg glucagon IM. For BG less than 50 mg/dL: Oral treatment preferred: If able to drink, give 240 mL juice or regular (not diet) soda OR if NPO, give 30 gram glucose 40% oral gel massaged in buccal mucosa OR if unconscious or uncooperative, give 25 gram (250 mL) dextrose 10% IV over 15 minutes per protocol OR, if no IV access, 1 mg glucagon IM. Recheck BG in 15 minutes. May repeat juice/soda, gel, dextrose or glucagon once per episode. Notify provider if hypoglycemia does not resolve after two treatments. Providers should consider the following: administering longer-acting treatments for the duration of active insulin or hypoglycemia agent for persistent hypoglycemia and re-evaluating active insulin orders before administering the next dose. Or glucagon (Glucagen) (1 mg/mL) injection solution 1 mgJump to med 1 mg, Intramuscular, EVERY 15 MIN PRN, Starting on Mon12/15/23 at 1302, Until 12/16/23 at 1343, Low blood sugar, For BG 50-70 mg/dL: Oral treatment preferred: If able to drink, give 120 mL juice or regular (not diet) soda OR if NPO, give 15 gram glucose 40% oral gel massaged into buccal mucosa OR if unconscious or uncooperative, give 25 gram (250 mL) dextrose 10% IV over 15 minutes per protocol OR, if no IV access, 1 mg glucagon IM. For BG less than 50 mg/dL: Oral treatment preferred: If able to drink, give 240 mL juice or regular (not diet) soda OR if NPO, give 30 gram glucose 40% oral gel massaged in buccal mucosa OR if unconscious or uncooperative, give 25 gram (250 mL) dextrose 10% IV over 15 minutes per protocol OR, if no IV access, 1 mg glucagon IM. Recheck BG in 15 minutes. May repeat juice/soda, gel, dextrose or glucagon once per episode. Notify provider if hypoglycemia does not resolve after two treatments. Providers should consider the following: administering longer-acting treatments for the duration of active insulin or hypoglycemia agent for persistent hypoglycemia and re-evaluating active insulin orders before administering the next dose. , Routine Group 2: ondansetron ODT (Zofran-ODT) disintegrating tablet 4 mgJump to med 4 mg, Oral, EVERY 8 HOURS PRN, Starting on Mon12/15/23 at 1302, Until 12/16/23 at 1343, Nausea, Vomiting, If multiple antiemetics are ordered, use ondansetron first. PO Preferred. If patient unable to take PO, may give IV if ordered., Routine Or ondansetron (pf) (Zofran) (2 mg/mL) injection 4 mgJump to med 4 mg, Intravenous, EVERY 8 HOURS PRN, Starting on Mon12/15/23 at 1302, Until 12/16/23 at 1343, Nausea, Vomiting, If multiple antiemetics are ordered, use ondansetron first. Only give IV if unable to take PO, Routine Group 3: oxyCODONE (Roxicodone) tablet 5 mgJump to med 5 mg, Oral, EVERY 4 HOURS PRN, Starting on Mon12/15/23 at 1302, Until 12/16/23 at 1343, Pain, For MODERATE pain (4-6) not relieved by traMADol if ordered., Routine Or oxyCODONE (Roxicodone) tablet 10 mgJump to med 10 mg, Oral, EVERY 4 HOURS PRN, Starting on Mon12/15/23 at 1302, Until 12/16/23 at 1343, Pain, For SEVERE pain (7-10), Routine Group 4: prochlorperazine (Compazine) tablet 10 mgJump to med 10 mg, Oral, EVERY 6 HOURS PRN, Starting on Mon12/15/23 at 1302, Until 12/16/23 at 1343, Nausea, Nausea/Vomiting, If multiple antiemetics are ordered, use ondansetron first. If ondansetron ineffective use prochlorperazine. PO Preferred. If patient unable to take PO, may give IV if ordered., Routine Or prochlorperazine (Compazine) (5 mg/mL) injection 10 mgJump to med 10 mg, Intravenous, EVERY 6 HOURS PRN, Starting on 12/15/23 at 1302, Until 12/16/23 at 1343, Nausea, Nausea/Vomiting, If multiple antiemetics are ordered, use ondansetron first. If ondansetron ineffective use prochlorperazine. Only give IV if unable to take PO, Routine documented in this encounter Additional Health Concerns Infection Onset Date Last Indicated Resolved Time Rule Out Respiratory 12/15/2023 12/15/2023 024 8:51 PM EST Rule Out COVID-19 12/15/2023 12/15/2023 12/15/2023 4:42 PM EST RSV 12/15/2023 12/15/2023 12/25/2023 8:09 PM EST documented as of this encounter Care Teams Box Toe Buffer Relationship Specialty Start Date End Date Gema Oliveira DO [facility] [place] [address] PCP - General General Internal Medicine 05/17/23 documented as of this encounter
--- OUTSIDE RECORDS SUMMARY | 2024-07-12 00:27 | XMS_ITS | Encounter Summary ---
Author Organization [facility] Address [facility] [place] [address] Care Team Providers Care Dust Mop Maker Name Role Phone Gema Oliveira DO Primary Care Provider [phone] Reason for Visit * Auth/Cert (Routine) Specialty [...] OPTIME, ANCHOR/SCREW FOR OPPOSING BN-TO-BN OR SOFT [id number] (IMPLANTABLE) Bret Nicholson MD [facility] [place] [address] Referral ID Status Reason Start Date Expiration Date Visits Re quested Visits Authorized [id number] 10/23/2023 1 1 Encounter Details Date Type Department Care Team (Latest Contact Info) Description 12/15/2023 6:11 AM EST - 12/16/2023 11:43 AM EST Hospital Encounter Med Surg Unit at [facility] [address] [place] [id number] Bret Nicholson MD [facility] [place] [address] Spondylolisthesis at L4-L5 level Discharge Disposition: Home [...] Sign Reading Time Taken Comments Blood Pressure 143/89 12/16/2023 7:03 AM EST Pulse 108 12/15/2023 11:45 PM EST Temperature 36 ??C (96.8 ??F) 12/16/2023 7:03 AM EST Respiratory Rate 18 12/16/2023 7:50 AM EST Oxygen Saturation 96% 12/16/2023 7:03 AM EST Inhaled Oxygen Concentration - - [...] SYSTEM (N/A) MODIFIER MEDTRONIC VOYAGER (N/A) MODIFIER [id number] (N/A) Active Hospital Problems: Active Hospital Problems [...] and low back pain, who presented to [facility] for elective L4-5 hemilaminectomy and fusion under [...] Result Value Ref Range Resp Panel Source COMPOSING ROOM SUPERVISOR Swab Resp Panel PCR Positive (A) Negative [...] Not Detected Not Detected Resp PCR Source COMPOSING ROOM SUPERVISOR Swab Studies: XR O-Arm No Rad <1Hr - OR Use Result Date: 12/15/2023 This exam is auto-finalizing. No interpretation was done. Pending Studies and Lab Data: none Discharge Condition: Good Discharge to: Home Future Appointments and Orders Future Appointments and Orders Future Appointments Provider Department Dept Phone 01/05/2024 2:30 PM Gema Oliveira DO Internal Medicine at [facility] Arrive at: 1st Floor Territory Sales Representative [phone] 01/17/2024 9:20 AM Bret Nicholson MD Neurosurgery at [facility] Arrive at: Main Entrance Central Registration [phone] Future Orders Complete By Expires XR Lumbar Spine 2 Or 3 Views (Generic) [[id number] Custom] 01/16/2024 (Approximate) 03/16/2024 Process Instructions: Scheduling Instructions: Questions: Where will study be performed?: [facility] Radiology Portable exam?: Reason for exam and [...] 3 Blood-Glucose Meter Misc 1 kit by [facility].(Non-Drug; Combo Route) route [...] Pad, Liner, Disp Pad 1 each by [facility].(Non-Drug; Combo Route) route [...] Patient Instructions SPINAL SURGERY DISCHARGE INSTRUCTIONS: [place] [facility] [place] IF YOU HAVE ANY PROBLEMS OR CONCERNS OUTSIDE OF REGULAR CLINIC HOURS CALL [facility] ADVERTISING TEACHER AT [phone] AND ASK FOR NEUROSURGERY ON-CALL. OTHERWISE CALL THE CLINIC AT [phone]. PRESCRIPTION INSTRUCTIONS: Please see the medication reconciliation list on this discharge summary for a current list of your medications. Stop the use of blood thinning medications until instructed otherwise by your surgical team. This includes medications known as antiplatelet, anticoagulant, and non-steroidal anti-inflammatory (NSAIDs) drugs. Common twrm-nta-vqsbxdu medications which should be avoided include Aspirin, [...] to pass. These medications can be obtained fjvq-sfo-ksofstp and their use is recommended on an [...] retention Constipation not relieved by diet and/or wvhj-qtc-ubvvrkf stool softeners and laxatives Nausea/vomiting (upset stomach) [...] Office if willing or with the Neurosurgery COMPOSING ROOM SUPERVISOR/RN. Your sutures/mainor may also be removed at [...] situation. Please call the Neurosurgery Office at [phone] if you do not receive a scheduled appointmentwithin 48 to 72 hours following discharge. Future Appointments Date Time Provider Department Center 01/05/2024 2:30 PM Gema Oliveira DO [place] [facility] 01/17/2024 9:20 AM Bret Nicholson MD [facility] Anticipate Follow-up Imaging Prior to your appointment; [...] On weekends or after office hours: Call [phone] and ask the pellet mill operator to page the Neurosurgery Resident/Advanced Practice Provider component inspector. Neurosurgery Providers Adult Neurosurgery Dr. Bret Galvez Pediatric Neurosurgery Dr. Vanessa Figueredo Advanced Practice Providers Gracie Hernandez, Nurse Practitioner (outpatient) Archana Gibbons, Physician Compliance Field Technician (inpatient/outpatient: neuro-oncology) Марина Zhang, Physician Compliance Field Technician (inpatient) Oswald Garcia, Nurse Practitioner (outpatient: pediatric) Suzan Ruiz, Nurse Practitioner (outpatient: vascular) Eufemia Ballard, Physician Compliance Field Technician (outpatient: spine) Amauri Packer, Nurse Practitioner (inpatient/outpatient) Eb Peña, Physician Compliance Field Technician (outpatient) Outpatient Nurses HERNANDEZ Childers 12/16/2023 documented in this encounter Discharge Instructions * Patient Instructions* Eufemia Ballard PA - 12/15/2023 3:10 PM EST SPINAL SURGERY DISCHARGE INSTRUCTIONS: [place]bar [facility] [place] IF YOU HAVE ANY PROBLEMS OR CONCERNS OUTSIDE OF REGULAR CLINIC HOURS CALL [facility] ADVERTISING TEACHER AT [phone] AND ASK FOR NEUROSURGERY ON-CALL. OTHERWISE CALL THE CLINIC AT [phone]. PRESCRIPTION INSTRUCTIONS: Please see the medication reconciliation list on this discharge summary for a current list of your medications. Stop the use of blood thinning medications until instructed otherwise by your surgical team. This includes medications known as antiplatelet, anticoagulant, and non-steroidal anti-inflammatory (NSAIDs) drugs. Common mksh-btn-nfhepro medications which should be avoided include Aspirin, [...] to pass. These medications can be obtained whpk-crl-iyupchv and their use is recommended on an [...] retention Constipation not relieved by diet and/or zyrv-asq-ckxgnrz stool softeners and laxatives Nausea/vomiting (upset stomach) [...] Office if willing or with the Neurosurgery COMPOSING ROOM SUPERVISOR/RN. Your sutures/mainor may also be removed at [...] situation. Please call the Neurosurgery Office at [phone] if you do not receive a scheduled appointmentwithin 48 to 72 hours following discharge. Future Appointments Date Time Provider Department Center 01/05/2024 2:30 PM Gema Oliveira DO [place] [facility] 01/17/2024 9:20 AM Bret Nicholson [...] 2 diabetes mellitus without complication, unspecified whether regional intermodal truck driver insulin use 1 kit by [employer].(Non-Drug; Combo Route) route 4 times daily. Prefers [...] Pad, Liner, Disp Pad 1 each by [facility].(Non-Drug; Combo Route) route [...] 2 diabetes mellitus without complication, unspecified whether regional intermodal truck driver insulin use INJECT 0.75MG UNDER THE SKIN [...] without complication, unspecified whether long-term insulin use 1 strip by Other route [...] 17 (!) 128/95 95 % 1.5 L/min ME 12/15/23 1225 -- 89 bpm -- -- 98/66 95 % -- -- 12/15/23 1229 -- 91 bpm -- -- 111/71 96 % -- -- 12/15/23 1245 -- 84 bpm -- -- 115/74 93 % 1 L/min ME 12/15/23 1300 -- 91 bpm -- -- -- 94 % 0.5 L/min ME 12/15/23 1310 -- 92 bpm -- 18 [...] Anxiety Pulmonary nodules Smoking HERNANDEZ Negrete 12/16/2023 Siobhan Morocho RN - 12/15/2023 1:12 PM EST Tracie [...] 1430: Pain becoming more tolerable per pt 3/. Family left to get her food. Pt [...] Continuing to monitor. 1300 Verbal report to VLE Mccann. Pt transferred to [facility] via [facility], NAD documented in this encounter H&P Notes [...] is getting up & around well. Charge, RN Kishore notified. HERNANDEZ Fall also okay with this [...] GERD,and low back pain, who presented to [facility] for elective L4-5 hemilaminectomy and fusion under [...] Injection SI Joint 03/21/2023 Margi Gomez MD [facility] RAD CT SCAN ENDOMETRIAL ABLATION HYSTERECTOMY laparoscopic for abnormaluterine bleeding PRO COLONOSCOPY, REMV LESN, SNARE N/A 06/11/2015 COLONOSCOPY, POLYPECTOMY, REMOVAL LESION BY SNARE performed by Larry Ryan MD at [facility] ENDOSCOPY PRO REMV/REVS SLING FOR STRES INCONTINENCE N/A 06/06/2017 SLING, REVISEOR REMOVE, REPLACE, VAGINALAPPROACH, SYNTHETIC\FASCIA (WRVU 11.15) performed by Frankie Richards MD at [facility] OSC PRO SLING OPER STRES INCONTINENCE N/A 06/08/2016 URETHRAL SUSPENSION, SLING\FASCIA OR SYNTHETIC performed by Frankie Richards MD at [facility] MAIN OR PRO UPPER GI ENDOSCOPY, BIOPSY 01/08/2014 EGD WITH BIOPSY performed by Ilya Whitney MD at [facility] ENDOSCOPY PRO UPPER GI ENDOSCOPY, BIOPSY N/A 06/21/2017 UPPER GASTROINTESTINAL ENDOSCOPY,WITH BIOPSY SINGLE OR MULTIPLE (WRVU 2.49) performed by Rickie Pineda MD at [facility] ENDOSCOPY PRO UPPER GI ENDOSCOPY, DIAGNOSTIC N/A 06/21/2017 EGD, UPPER GI ENDOSCOPY performed by Rickie Pineda MD at [facility] ENDOSCOPY TUBAL LIGATION 1993 Medications: Current Facility-Administered Medications Ordered in Epic Medication Dose Route Frequency Provider Last Rate Last Admin busPIRone (Buspar) tablet 5 mg 5 mg Oral TID Eufemia Ballard PA 5 mg at 12/15/23 1424 [START ON 12/16/2023] hydroCHLOROthiazide (Hydrodiuril) tablet 25 mg 25 mg Oral QAM Eufemia Ballard PA ipratropium-albuteroL (Duoneb) 0.5 mg-3 mg(2.5 mg [...] tablet 8.6 mg 8.6 mg Oral BID ElioEufemia talbert PA 8.6 mg at 12/15/23 1339 bisacodyL [...] (Resp Therapy) Eufemia Ballard PA No current [facility]-ordered outpatient medications on file. Prior To Admission [...] 3 Blood-Glucose Meter Misc 1 kit by Misc.(Non-Drug; Combo Route) route 4 times daily. Prefers [...] on file Social History Narrative Lives with Philipp boyfriend (13 years) 3 adult children, one [...] and low back pain, who presented to [facility] for elective L4-5 hemilaminectomy and fusion under [...] Nicholson MD - 12/15/2023 8:20 AM EST [facility] Operative Note [facility] [address] [place] [address] Patient Name: Tracie Layton : [id number] MR#: [id number] Case Date: 12/15/2023 Case Scheduled Time: 729 Surgeon: Surgeon(s) and Role: * Bret Nicholson MD - Primary * Eufemia Ballard PA - Physician Compliance Field Technician-assisted with suction, retraction, and suturing Preoperative diagnosis: [...] SYSTEM (N/A) MODIFIER MEDTRONIC VOYAGER (N/A) MODIFIER [id number] (N/A) Left hemilaminectomy L4-5 Transforaminal lumbar interbody fusion and dorsal spinal fusion L4-5 Nonsegmental posterior spinal instrumentation with Solera pedicle screws L4-5 Interbody instrumentation with a Catalift cage L4-5 Stereotactic intraoperative navigation with O-arm and Stealth Nonstructural allograft for spinal fusion CPT: 27046, 56434, 55109, 87390, 82130, 70623 Anesthesia: General Estimated Blood Loss: 100 mL [...] The patient was positioned prone on the Jacksonspinal surgery table. Pressure points were checked and padded as appropriate. A surgical timeout was observed. The patient for the reference frame was tamped into the iliac bone at the posterior superior iliac spine. The reference frame was attached. The O-arm was then utilized to obtain a intraoperative CT scan. The MOVL system and O-arm CT data were utilized [...] into the interspace and expanded according to linen folder specification. The wound was copiously irrigated. The transverse processes ofL4 and L5 were exposed and additional allograft was placed over the intertransverse space. Hemostasis was obtained. The wound was copiously irrigated. The retractor was withdrawn. The microscope was removed. The appropriate rebeca size was measured and rods were placed using the etcher apprentice. The cap screws were placed and all of the hardware was torqued to linen folder specification. The tabs on the screw towers were broken off and removed the wounds were again irrigated. The paraspinous musculature and subcutaneous tissues around the incisions were infiltrated with quarter percent plain Marcaine. The incisions were then closed in layers in the usual fashion. Sponge and needle counts were reported correct. Bret Nicholson MD, FAANS Sterilizer Machine Operator of Neurosurgery [facility] [email or web address] 12/15/2023 documented in this encounter Plan of Treatment Upcoming Encounters Date Type Department Care Team (Late st Contact Info) Description 09/05/2024 9:00 AM EDT Office Visit Internal Medicine at [address] [phone] [facility] [place], [place] [phone] documented as of this encounter Procedures Procedure Name Priority Date/Time Associated Diagnosis Comments RAPID INFLUENZA A/B AND COVID-19 BY PCR (APD/SHARON/NLH/CGP) Routine 12/15/2023 3:39 PM EST RESPIRATORY PANEL PCR Routine 12/15/2023 3:39 PM EST POCT GLUCOSE Routine 12/15/2023 11:52 AM EST XR O-ARM NO RAD - OR USE Routine 12/15/2023 11:35 AM EST MODIFIER [id number] Yes 12/15/2023 7:50 AM EST Spondylolisthesis MODIFIER MEDTRONIC VOYAGER Yes 12/15/2023 7:50 AM EST Spondylolisthesis MODIFIER MEDTRONIC CATALYFT PL EXPANDABLE INTERBODY SYSTEM Yes 12/15/2023 7:50 AM EST Spondylolisthesis MODIFIER MEDTRONIC-MAGNIFUSE Yes 12/15/2023 7:50 AM EST Spondylolisthesis Allograft For Spine Surgery Only Morselized () Yes 12/15/2023 7:50 AM EST Spondylolisthesis Autograft Spine Surgery Local From Same Incision (66014) Yes 12/15/2023 7:50 AM EST Spondylolisthesis Sterotactic Cptr Asstd Px Spinal (12442) Yes 12/15/2023 7:50 AM EST Spondylolisthesis Insert Biomchn Dev Intervertebral Dsc Spc W/Arthrd (53175) Yes 12/15/2023 7:50 AM EST Spondylolisthesis Posterior Non-Segmental Instrumentation (37206) Yes 12/15/2023 7:50 AM EST Spondylolisthesis Burroughs Facetec/Foramot Drg Arthrd Lumbar 1 Vrt Sgm (90590) Yes 12/15/2023 7:50 AM EST Spondylolisthesis Arthrodesis Combined Technique 1 Interspace Lumbar (00088) Yes 12/15/2023 7:50 AM EST Spondylolisthesis POCT [...] who have questions please contact the health career law clerk that requested your imaging first. ? Electronically signed by: Rommel Hooker MD, [facility] ([phone]), at 01/17/2024 10:09 AM Narrative 01/17/2024 10:09 [...] patients who have questions please contactthe health career law clerk that requested your imaging first. Electronically signed by: Rommel Hooker MD, [facility]([phone]), at 01/17/2024 10:09 AM Bret Nicholson MD IMG DX ORDERABLES [...] assay on the Sandee test system (Claudia Robodrom) as authorized by the FDA-issued Emergency Use Authorization (EUA). ??This assay is intended for in vitro Diagnostic (IVD) use with nasopharyngeal swabs collected from individuals with clinical signs and symptoms of respiratory viral infection. The assay is performed based on the instructions for use and additional guidance provided by the FDA. Testing is performed in laboratories within the [facility], certified under the Clinical Laboratory Improvement Amendments [...] fact sheets at the following FDA website: https://www.fda.gov/medical-devices/uduxklnkgxd-rdpeuwf-7324-vyctf-23-lnobbtanj- use-a wzfdtrallvamu-arifepc-iaehgns/nqqol-jizokdvqmlu-pzit Resp PCR Source COMPOSING ROOM SUPERVISOR Swab [facility] Nasopharyngeal Swab 12/15/19 3:39 PM EST 12/15/2023 3:49 PM EST Comment:Symptoms->Fever / Re spiratory Symptoms Narrative Resulting Agency Comment Spec In Lab Zina Piedra SARITHA MICROBIOLOGY - GEN ERAL ORDERABLES [facility] [address] [place] [address] * (ABNORMAL) Respiratory Panel PCR (12/15/2023 3:39 PM EST) Respiratory Panel Source COMPOSING ROOM SUPERVISOR Swab [facility] Respiratory Panel PCR Positive(A) Negative [facility] Comment: Respiratory Panels are performed on the [employer], using multiplexed PCR nucleic acid detection. ??Negative results do not preclude respiratory infection and should not be used as the sole basis for diagnosis, treatment or other management decisions. Adenovirus Not Detected Not Detected [facility] Coronavirus HKU1 Not Detected Not Detected [facility] Coronavirus NL63 Not Detected Not Detected [facility] Coronavirus 229E Not Detected Not Detected [facility] Coronavirus OC43 Not Detected Not Detected [facility] SARS-CoV-2 Not Detected Not Detected [facility] Comment: Testing for SARS-CoV-2 (Severe acute respiratory syndrome coronavirus 2) to aid in the diagnosis of COVID-19 is performed using the BioFire Respiratory Panel 2.1 ([employer]) as authorized by the FDA issued Emergency Use Authorization (EUA). This panel also tests for multiple other viral and bacterial pathogens. This assay is intended for In-vitro Diagnostic (IVD) use with nasopharyngeal swabs in viral transport media. The assay is performed based on the instructions for use and additional guidance provided by the FDA. Testing is performed in laboratories within the [facility], each of which is certified under the [...] fact sheets at the following FDA website: https://www.fda.gov/medical-devices/jtjahbyfxkl-dkoombf-3921-zrzcr-35-yzmziictq- use-a hqjoeagjxcosi-vforast-eablhyo/yycmv-okarzvzcbsy-dlnf Human Metapneumovirus Not Detected Not Detected [facility] Human Rhinovirus/Enterov irus Not Detected Not Detected [facility] Influenza A Not Detected Not Detected [facility] Influenza B Not Detected Not Detected [facility] Parainfluenza 1 Not Detected Not Detected [facility] Parainfluenza 2 Not Detected Not Detected [facility] Parainfluenza 3 Not Detected Not Detected [facility] Parainfluenza 4 Not Detected Not Detected [facility] Respiratory Syncytial Virus Detected(A) Not Detected [facility] Chlamydophila pneumoniae Not Detected Not Detected [facility] Mycoplasma pneumoniae Not Detected Not Detected [facility] Nasopharyngeal Swab 12/15/19 3:39 PM EST 12/15/2023 7:13 PM EST Narrative Resulting Agency Comment Spec In Lab Zina Piedra APRN MICROBIOLOGY - GEN ERAL ORDERABLES [facility] [place] [address] * (ABNORMAL) POCT Glucose (12/15/2023 11:52 AM EST) Glucose, POC 245(H) 65 - 199 mg/dL [facility] Comment: Supplemental ranges: <140 mg/dL before meals <180 mg/dL all other times of the day Blood 12/15/2023 11:5 2 AM EST 12/15/2023 11:52 AM EST Bret Nicholson MD POINT OF CARE TEST O YAMIL Performing Organization Address [facility] Co de Phone Number [facility] [address] [place], [place] [id number] * XR O-Arm No Rad <1Hr - OR Use (12/15/2023 11:35 AM EST) Narrative Dicom, Auditing User - 12/15/2023 11:36 AM EST This exam is auto-finalizing. No interpretation was done. Bret Nicholson MD IMG FLUORO ORDERABLE S * POCT Glucose (12/15/2023 6:43 AM EST) Glucose, POC 169 65 - 199 mg/dL [facility] Comment: Supplemental ranges: <140 mg/dL before meals <180 mg/dL all other times of the day Blood 12/15/2023 6:43 AM EST 12/15/2023 6:43 AM EST Bret Nicholson MD POINT OF CARE TEST O RDERARUBÉN Performing Organization Address [facility] Co de Phone Number [facility] [address] [place] [phone] * SCAN DOC: IMPLANTABLE DEVICES (12/15/2023 12:00 AM EST) Narrative 12/15/2023 12:00 AM EST Ordered by an unspecified provider. Scanning Provider MEDIA MGR SCAN EXT O RDR/RSLT documented in this encounter Visit Diagnoses Diagnosis Spondylolisthesis at L4-L5 level- Primary Spondylolisthesis at L4-L5 level Spondylolisthesis at L4-L5 level documented in this encounter Admitting Diagnoses Diagnosis Spondylolisthesis [...] Given 12/15/2023 7:40 PM EST 500 mcg busPIRone (Buspar) tablet 5 mg 5 mg, [...] modification) on Mon12/16/23 at 0900, Until Discontinued, DO NOT CRUSH [...] or suppositories? No 1130 (Given - Provider: aJke Davila, VEL) budesonide (Pulmicort) nebulizer suspension 500 mcg 500 mcg, Nebulization, 2 TIMES DAILY (RESPIRATORY THERAPY), First dose on Mon12/15/23 at 2000, Until Discontinued, Rinse mouth with water (spit out without swallowing) after each use., Routine 1940 (Given - Provider: Son Morrison, RT) 0739 (Given - Provider: Gonsalo Hurtado RT) busPIRone (Buspar) tablet 5 mg 5 mg, Oral, 3 TIMES DAILY, First dose on Mon12/15/23 at 1500, Until Discontinued, Routine 1424 (Given - Provider: Siobhan Rodriguez RN)2202 (Given - Provider: Joya Gardner, VEL) 0804 (Given - Provider: Siobhan Rodriguez RN) [...] on Mon12/16/23 at 0900, Until Discontinued, Routine 0804 (Given [...] - Provider: Jake Davila RN - Comment: LATHMAKER administrtation) ipratropium-albuteroL (Duoneb) 0.5 mg-3 mg(2.5 mg [...] on Mon12/16/23 at 0900, Until Discontinued, Routine 0804 (Given - Provid er: Siobhan Rodriguez RN) metFORMIN (Glucophage) tablet 1,000 mg 1,000 mg, Oral, DAILY, First dose on Mon12/15/23 at 1400, Until Discontinued, Routine 1339 (Given - Provider: Siobhan Rodriguez RN) 0805 (Given - Provider: Siobhan Rodriguez RN) metoprolol succinate XL (Toprol-XL) tablet 50 mg 50 mg, Oral, DAILY, First dose (after last modification) on Mon12/16/23 at 0900, Until Discontinued, DO NOT CRUSH OR OPEN, Routine 0804 (Given - Provid er: Siobhan Rodriguez RN) pantoprazole EC (Protonix) tablet 40 mg 40 mg, Oral, DAILY, First dose on Mon12/16/23 at 0900, Until Discontinued 08 (Given - Provid er: Siobhan Rodriguez RN) pramipexole (Mirapex) tablet 0.5 mg 0.5 mg, Oral, NIGHTLY, First dose on Mon12/15/23 at 2100, Until Discontinued, Routine 220 (Given - Provider: Joya Gardner RN) senna (Senokot) tablet 8.6 mg 8.6 mg, Oral, 2 TIMES DAILY, First dose on Mon12/15/23 at 1400, Until Discontinued, Routine 1339 (Given - Provider: Siobhan Rodriguez RN)220 (Given - Provider: Joya Gardner RN) 0805 (Given - Provider: Siobhan Rodriguez RN) sodium chloride 0.9 % (flush) (BD PosiFlush [...] Siobhan Rodriguez RN)2300 (Stopped - Provider: Joya Gardner, VEL) PRN Medication Order 12/14/2023 12/15/2023 12/16/2023 acetaminophen [...] awake/alert., Routine 1622 (Given - Provider: Siobhan Rodriguez, VEL) ipratropium-albuteroL (Duoneb) 0.5 mg-3 mg(2.5 mg base)/3 [...] Siobhan Rodriguez, VEL)1130 (Given - Provider: Siobhan Rodriguez, VEL) oxyCODONE (Roxicodone) tablet 5 mg(Linked Group 3) 5 mg, Oral, EVERY 4 HOURS PRN, Starting on Mon12/15/23 at 1302, Until 12/16/23 at 1343, Pain, For MODERATE pain (4-6) not relieved by traMADol if ordered., Routine 1327 (Given - Provider: Siobhan Rodriguez, RN)1831 (See Alternative - Provider: Siobhan Rodriguez, RN)2252 (See Alternative - Provider: Joya Gardner, VEL) 0728 (See Alternative - Provider: Siobhan Rodriguez, RN)1130 (See Alternative - Provider: Siobhan Rodriguez, RN) polyethylene glycoL (Miralax) packet 17 g [...] documented as of this encounter Care Teams Dust Mop Maker Relationship Specialty Start Date End Date Gema Oliveira DO [facility] [place] [address] PCP - General General Internal Medicine 05/17/23 documented as of this encounter
--- OUTSIDE RECORDS SUMMARY | 2024-07-12 00:27 | XMS_ITS | Encounter Summary ---
Author Organization [facility] Address [facility] [place] [address] Care Team Providers Care Weft Straightener Name Role Phone Gema Oliveira DO Primary Care Provider [phone] Encounter Details Date Type Department Care Team (Latest Contact Info) Description 09/27/2023 Travel Social History Tobacco Use Types Packs/Day [...] a mcfp (including now)? Patient refused 02/10/2023 Sex and Gender Information Value Date Recorded Sex Assigned at Not on file Gender Identity Not on file Sexual Orientation Not on file documented as of this encounter Plan of Treatment Upcoming Encounters Date Type Department Care Team (Late st Contact Info) Description 09/05/2024 9:00 AM EDT Office Visit Internal Medicine at [address] [address] Gema Oliveira DO [facility] [address] [place] [address] documented as of this encounter Visit Diagnoses Not on filedocumented in this encounter Care Teams Weft Straightener Relationship Specialty Start Date End Date Gema Oliveira DO [facility] [place] [address] PCP - General General Internal Medicine 05/17/23 documented as of this encounter
--- OUTSIDE RECORDS SUMMARY | 2024-07-12 00:27 | XMS_ITS | Encounter Summary ---
Author Organization Counts Include [facility] Address [facility] [place] [address] Care Team Providers Care Analysis Internship Name Role Phone Gema Oliveira DO Primary Care Provider [phone]- [phone] Encounter Details Date Type Department Care Team (Latest Contact Info) Description 10/23/2023 Travel Social History Tobacco Use Types Packs/Day [...] AM EDT Office Visit Internal Medicine at [address] [address] Gema Oliveira DO [facility] [address] [address] documented as of this encounter Visit Diagnoses Not on filedocumented in this encounter Care Teams Analysis Internship Relationship Specialty Start Date End Date Gema Oliveira DO [facility] [place] [address] PCP - General General Internal Medicine 05/17/23 documented as of this encounter
--- OUTSIDE RECORDS SUMMARY | 2024-07-12 00:27 | XMS_ITS | Encounter Summary ---
Author Organization [facility] Address [facility] [place] [address] Care Team Providers Care Cook Ice Cream Name Role Phone Gema Oliveira DO Primary Care Provider [phone]- [phone] Encounter Details Date Type Department Care Team (Latest Contact Info) Description 08/14/2023 Travel Social History Tobacco Use Types Packs/Day [...] AM EDT Office Visit Internal Medicine at [address] [address] Gema Oliveira DO [facility] [address]Z [place] [address] documented as of this encounter Visit Diagnoses Not on filedocumented in this encounter Care Teams Cook Ice Cream Relationship Specialty Start Date End Date Gema Oliveira DO [facility] [place] [address] PCP - General General Internal Medicine 05/17/23 documented as of this encounter
--- OUTSIDE RECORDS SUMMARY | 2024-07-12 00:28 | XMS_ITS | Encounter Summary ---
Author Organization Formerly [facility] Address [facility] [place] [address] Care Team Providers Care Aircraft Mechanic Armament Name Role Phone Tasneem Galdamez MD Primary Care Provider [phone] Reason for Visit * Reason Comments Medication Refill Encounter Details Date Type Department Care Team (Late st Contact Info) Description 05/07/2023 Refill [place] [address] Tasneem Galdamez MD [facility] [place] [address] Restless leg Social History Tobacco Use Types Packs/Day Years Used Date Smoking Tobacco: Every Day Cigarettes 0.5 30 Smokeless Tobacco: Never Comments:Quit 5 wks ago [...] encounter Miscellaneous Notes * Telephone Encounter - Anam Locke CMA - 05/09/2023 7:58 AM EDT Prescription Renewal Request Name: Tracie Layton : 1970 Prescription(s) Requested: Requested Prescriptions Pending Prescriptions Disp Refills pramipexole (Mirapex) 0.125 mg tablet [Pharmacy Med Name: PRAMIPEXOLE 0.125 MG TABLET] 180 tablet 1 Sig: TAKE TWO TABLETS BY MOUTH NIGHTLY Date of Encounter last in This Dept (If need an appointment send to secretaries to schedule): 05/01/23 Next Encounter in This Dept: Visit date not found Date of Last Refill (for each medication): 12/02/22#180/1 Medication category requirements (labs etc): N Status of request: Pended Allergies Allergen Reactions Bactrim [Sulfamethoxazole-Trimethoprim] Anaphylaxis Trimethoprim Anaphylaxis Aleve [Naproxen Sodium] Rash Per neuro team, patient has tolerated ketorolac in the past Keflex [Cephalexin] Other (See Comments) Racing heart Meloxicam Nausea Only Amlodipine Nausea And Vomiting Anam Locke CMA 05/09/23 7:59 AM documented in this encounter Plan of Treatment Upcoming Encounters Date Type Department Care Team (Late st Contact Info) Description 09/05/2024 9:00 AM EDT Office Visit Internal Medicine at [address] [address] Gema Oliveira DO [facility] [place] [address] documented as of this encounter Visit Diagnoses Diagnosis Restless leg Restless legs syndrome (RLS) documented in this encounter Care Teams Aircraft Mechanic Armament Relationship Specialty Start Date End Date Tasneem Galdamez MD [facility] [address] [place] [address] PCP - General General Internal Medicine 05/20/20 6/2 06/11 documented as of this encounter
--- OUTSIDE RECORDS SUMMARY | 2024-07-12 00:28 | XMS_ITS | Encounter Summary ---
Author Organization [facility] Address [facility] [place] [address] Care Team Providers Care Funnel Setter Name Role Phone Gema Oliveira DO Primary Care Provider [phone]- [phone] Encounter Details Date Type Department Care Team (Latest Contact Info) Description 05/24/2023 Travel Social History Tobacco Use Types Packs/Day [...] AM EDT Office Visit Internal Medicine at [address] [address] Gema Oliveira DO [facility] [address] [place] [address] documented as of this encounter Visit Diagnoses Not on filedocumented in this encounter Care Teams Funnel Setter Relationship Specialty Start Date End Date Gema Oliveira DO [facility] [place] [place] [address] PCP - General General Internal Medicine 05/17/23 documented as of this encounter
--- OUTSIDE RECORDS SUMMARY | 2024-07-12 00:28 | XMS_ITS | Encounter Summary ---
Author Organization [facility] Address [facility] [place] [address] Care Team Providers Care Trim Setter Name Role Phone Tasneem Galdamez MD Primary Care Provider [phone] Reason for Visit * Reason Comments Medication Refill Encounter Details Date Type Department Care Team (Late st Contact Info) Description 04/08/2023 Refill Internal Medicine at [address] [address] Tasneem Galdamez MD [facility] GENER[facility] [place] [address] Nausea without vomiting Social History Tobacco Use [...] AM EDT Office Visit Internal Medicine at [address] [address] Gema Oliveira DO [facility] [address] [place] [address] documented as of this encounter Visit Diagnoses Diagnosis Nausea without vomiting documented in this encounter Care Teams Trim Setter Relationship Specialty Start Date End Date Tasneem Galdamez MD [facility] [address] [address] PCP - General General Internal Medicine 05/20/2004/21 documented as of this encounter
--- OUTSIDE RECORDS SUMMARY | 2024-07-12 00:28 | XMS_ITS | Encounter Summary ---
Author Organization [facility] [place] [address] Care Team Providers Care Gas Cutting Machine Operator Name Role Phone Tasneem Galdamez MD Primary Care Provider [phone] Reason for Visit * Reason Onset Date Comments Prior Authorization 03/20/2023 Varenicline Tartrate 1MG tablets Encounter Details Date Type Department Care Team (Late st Contact Info) Description 03/20/2023 Telephone Internal Medicine at [facility] [address] [place] [address] Karlene Thornton, AYAN Prior Authorization (Varenicline Tartrate 1MG tablets) Social History Tobacco Use Types Packs/Day Years [...] a alf (including now)? Patient refused 02/10/2023 Sex and Gender Information Value Date Recorded Sex Assigned at Not on file Gender Identity Not on file Sexual Orientation Not on file documented as of this encounter Miscellaneous Notes * Telephone Encounter - Karlene Thornton CCMA - 04/03/2023 2:02 PM EDT Summary: DENIAL Submitted Date: Submitted Date: 03/20/2023 PA Outcome: PA Denial [place] [address] DENIED: Varenicline Case/Reference #: [id number] Additional Information from Insurance: Information requested was not received within 14 days. * Telephone Encounter - Nena Ahmadi CMA - 03/23/2023 9:04 AM EDTSummary: More information request Images from the original note were not included. Faxed to [place] [employer] at [phone] for tracking# [id number] * Telephone Encounter - Nena Ahmadi CMA - 03/22/2023 2:28 PM EDTSummary: More info request Images from the original note were not included. Faxed to [place] [employer] at [phone] for tracking# [id number]: * Telephone Encounter - Nena Ahmadi CMA - 03/20/2023 10:20 AM EDTSummary: More info request Images from the original note were not included. * Telephone Encounter - Karlene Thornton CCMA - 03/20/2023 8:03 AM EDT PA Submitted Submitted Date: Submitted Date: 03/20/2023 Medication Prior Authorization Patient: Tracie Layton Patient : 1970 Insurance Company: [place] Medicaid Sent via: [facility] Huang: [id number] Physician: Tasneem Galdamez MD Medication Requested:varenicline (Chantix) 1 mg tablet Frequency/Sig: : Take 1 tablet by mouth 2 times daily Disp: 60 Refills: 5 Currently taking: no- restart If yes, how lon Diagnosis for this medication: Nicotine dependence, cigarettes, uncomplicated (F17.210) Prior medications trialed in this patient: Medication: chantix 0.5 mg Approx Dates: 2016-08/2022 Outcome/Adverse Reactions: Inadequate response ?? Medication: nicoderm patch Approx Dates: Outcome/Adverse Reactions: Inadequate response ?? Medication: comit Approx Dates: Outcome/Adverse Reactions: Inadequate response ?? Additional Notes: Allergies?? Bactrim [Sulfamethoxazole-trimethoprim]Anaphylaxis TrimethoprimAnaphylaxis Aleve [Naproxen Sodium]Rash Keflex [Cephalexin]Other (See Comments) MeloxicamNausea Only AmlodipineNausea And Vomiting documented in this encounter Plan of Treatment Upcoming Encounters Date Type Department Care Team (Late st Contact Info) Description 09/05/2024 9:00 AM EDT Office Visit Internal Medicine at [place] [id number] Gema Oliveira DO [facility] [address] [address] documented as of this encounter Visit Diagnoses Not on filedocumented in this encounter Care Teams Gas Cutting Machine Operator Relationship Specialty Start Date End Date Tasneem Galdamez MD [facility] [place] [address] PCP - General General Internal Medicine 05/20/202 06/11 documented as of this encounter
--- OUTSIDE RECORDS SUMMARY | 2024-07-12 00:28 | XMS_ITS | Encounter Summary ---
Author Organization [facility] Address [facility] [place] [address] Care Team Providers Care Visitor Services Assistant Name Role Phone Tasneem Galdamez MD Primary Care Provider [phone] Encounter Details Date Type Department Care Team (Latest Contact Info) Description 03/20/2023 Travel Social History Tobacco Use Types Packs/Day [...] AM EDT Office Visit Internal Medicine at [place] [phone] Gema Oliveira DO [facility] [place] [address] documented as of this encounter Visit Diagnoses Not on filedocumented in this encounter Care Teams Visitor Services Assistant Relationship Specialty Start Date End Date Tasneem Galdamez MD [facility] [place] [place] [address] PCP - General General Internal Medicine 05/20/2004/21 documented as of this encounter
--- OUTSIDE RECORDS SUMMARY | 2024-07-12 00:28 | XMS_ITS | Encounter Summary ---
Author Organization [facility] [place] [address] Care Team Providers Care Sheet Metal Operator Name Role Phone Gema Oliveira DO Primary Care Provider [phone] Encounter Details Date Type Department Care Team (Late st Contact Info) Description 05/26/2023 Telephone [place] [phone] Carolina Putnam Social History Tobacco Use Types Packs/Day Years [...] encounter Miscellaneous Notes * Telephone Encounter - Carolina Putnam - 05/26/2023 12:58 PM EDT Spoke w/pt who states she has quit smoking 3 weeks ago. PT aware we are here should she need support in the future. documented in this encounter Plan of Treatment Upcoming Encounters Date Type Department Care Team (Late st Contact Info) Description 09/05/2024 9:00 AM EDT Office Visit Internal Medicine at [address] [id number] Gema Oliveira DO [facility] [place] [address] documented as of this encounter Visit Diagnoses Not on filedocumented in this encounter Care Teams Sheet Metal Operator Relationship Specialty Start Date End Date Gema Oliveira DO [facility] DR [address] [place] [address] PCP - General General Internal Medicine 05/17/23 documented as of this encounter
--- OUTSIDE RECORDS SUMMARY | 2024-07-12 00:28 | XMS_ITS | Encounter Summary ---
Author Organization [facility] [place] [address] Care Team Providers Care Property Management Specialist Name Role Phone Tasneem Galdamez MD Primary Care Provider [phone] Reason for Visit * Reason Onset Date Comments Other 02/13/2023 Faxed External l abs & Mammo orders (02-10-23) from Dr. Galdamez to [facility] Encounter Details Date Type Department Care Team (Late st Contact Info) Description 02/13/2023 Notes [place] [phone] Zina Siddiqi CCMA Other (Faxed External labs & Mammo orders (02-10-23) from Dr. Galdamez to [facility]) Social History Tobacco Use Types Packs/Day Years [...] AM EDT Office Visit Internal Medicine at [address] [address] Gema Oliveira DO [facility] [address] [facility] [address] documented as of this encounter Visit Diagnoses Not on filedocumented in this encounter Care Teams Property Management Specialist Relationship Specialty Start Date End Date Tasneem Galdamez MD [facility] [place] [address] PCP - General General Internal Medicine 05/20/2004/21 documented as of this encounter
--- OUTSIDE RECORDS SUMMARY | 2024-07-12 00:28 | XMS_ITS | Encounter Summary ---
Author Organization [facility] Address [facility] [place] [address] Care Team Providers Care Duct Layer Helper Name Role Phone Gema Oliveira DO Primary Care Provider [phone] Encounter Details Date Type Department Care Team (Late st Contact Info) Description 05/24/2023 Orders Only Internal Medicine at [address] [phone] Gema Oliveira, DO [facility] [place] [address] Social History Tobacco Use Types Packs/Day Years [...] AM EDT Office Visit Internal Medicine at [address] [address] Gema Oliveira DO [facility] [address] [place] [address] documented as of this encounter Visit Diagnoses Not on filedocumented in this encounter Care Teams Duct Layer Helper Relationship Specialty Start Date End Date Gema Oliveira DO [facility] [place] [address] PCP - General General Internal Medicine 05/17/23 documented as of this encounter
--- OUTSIDE RECORDS SUMMARY | 2024-07-12 00:28 | XMS_ITS | Encounter Summary ---
Author Organization [facility] [place] [address] Care Team Providers Care Log Brander Name Role Phone Gema Oliveira DO Primary Care Provider [phone] Encounter Details Date Type Department Care Team (Late st Contact Info) Description 06/14/2023 3:00 PM EDT Clinical Support Internal Medicine at [address] [phone] QT prolongation Social History Tobacco Use Types Packs/Day Years [...] as of this encounter Progress Notes * Harleen Payne LNA - 06/14/2023 3:00 PM EDT Patient was in for an EKG. documented in this encounter Plan of Treatment Upcoming Encounters Date Type Department Care Team (Late st Contact Info) Description 09/05/2024 9:00 AM EDT Office [place] [address] [facility] [place] [address] documented as of this encounter Procedures Procedure Name Priority Date/Time Associated Diagnosis Comments EKG 12-LEAD Routine 06/14/2023 3:03 PM EDT QT prolongation documented in this encounter Results * EKG 12 Lead (06/14/2023 3:03 PM EDT) Ventricular rate 117 BPM MUSE SYSTEM Atrial Rate 117 BPM MUSE SYSTEM P-R Interval 124 ms MUSE SYSTEM QRS Duration 70 ms MUSE SYSTEM Q-T Interval 344 ms MUSE SYSTEM QTC Calculated (Bezet) 479 ms MUSE SYSTEM Calculated P [place] 53 degrees MUSE SYSTEM Calculated R [place] 21 degrees MUSE SYSTEM Calculated T [place] 25 degrees MUSE SYSTEM INTERPRETATION Sinus tachycardia Nonspecific ST and T wave abnormality Abnormal ECG When compared with ECG of 27-OCT-2022 08:42, No significant change was found Confirmed by MD Pugh Gregory A. ([id number]) on 06/19/2023 9:50:38 AM MUSE SYSTEM 06/14/2023 3:03 PM EDT 06/19/2023 9:50 AM EDT Ragini Unger MD ECG ORDERABLES MUSE SYSTEM documented in this encounter Visit Diagnoses Diagnosis QT prolongation Nonspecific abnormal electrocardiogram (ECG) (EKG) documented in this encounter Care Teams Log Brander Relationship Specialty Start Date End Date Gema Oliveira DO [facility] [place] [address] PCP - General General Internal Medicine 05/17/23 documented as of this encounter
--- OUTSIDE RECORDS SUMMARY | 2024-07-12 00:28 | XMS_ITS | Encounter Summary ---
Author Organization [facility] Address [facility] [place] [address] Care Team Providers Care Floor Scraper Name Role Phone Tasneem Galdamez MD Primary Care Provider [phone] Encounter Details Date Type Department Care Team (Late st Contact Info) Description 05/05/2023 Telephone Internal Medicine at [facility] [address] [place] [address] Shanna Bishop Social History Tobacco Use Types Packs/Day Years [...] a half-way (including now)? Patient refused 02/10/2023 Sex and Gender Information Value Date Recorded Sex Assigned at Not on file Gender Identity Not on file Sexual Orientation Not on file documented as of this encounter Miscellaneous Notes * Telephone Encounter - Shanna Bishop - 05/05/2023 2:03 PM EDT Called [facility] [address] would like us to schedule a 3 mo f/u appointment with new pcp Dr Oliveira. This appointment should be face to face. * Telephone Encounter - Shanna Bishop - 05/05/2023 2:03 PM EDT ----- Message from Tasneem Galdamez MD sent at 05/02/2023 8:10 AM EDT ----- Hey can we schedule her for 3 month follow up with her new PCP? Ideally really should be in person documented in this encounter Plan of Treatment Upcoming Encounters Date Type Department Care Team (Late st Contact Info) Description 09/05/2024 9:00 AM EDT Office Visit [place] [address] Gema Oliveira, [facility] GENER[facility] [place] [address] documented as of this encounter Visit Diagnoses Not on filedocumented in this encounter Care Teams Floor Scraper Relationship Specialty Start Date End Date Tasneem Galdamez MD [facility] [address]Z [place] [address] PCP - General General Internal Medicine 05/20/2004/21 documented as of this encounter
--- OUTSIDE RECORDS SUMMARY | 2024-07-12 00:28 | XMS_ITS | Encounter Summary ---
Author Organization [facility] Address [facility] [place] [address] Care Team Providers Care Foundry Molder Name Role Phone Gema Oliveira DO Primary Care Provider [phone] Reason for Visit * Reason Comments Establish Care * Consultation (Routine) - Closed Specialty Diagnoses / Procedures Referred By María Elena mcdaniel Referred To Contact Urology Diagnoses Mixed stress and urge urinary incontinence Tasneem Galdamez MD [facility] [place] [address] [facility] [employer] [address] [place] [address] Referral ID Status Reason Start Date Expiration Date V isits Requested Visits Authorized [id number] Closed Consult, Test & Treat 12/07/2022 12/07/2023 1 1 Encounter Details Date Type Department Care Team (Late st Contact Info) Description 05/22/2023 1:00 PM EDT Office Visit Obstetrics [place] [address] Ceci Keller MD [facility] [place] [address] Mixed stress and urge urinary incontinence; Intrinsic sphincter deficiency Social History Tobacco Use Types Packs/Day Years Used Date Smoking Tobacco: Former Cigarettes 0.5 30 0 05/12/1993 - 05/12/2023 Smokeless Tobacco: Never Tobacco Cessation:Counseling Given: Not Answered Comments:Quit 5 wks ago [...] a custodial (including now)? Patient refused 02/10/2023 Sex and Gender Information Value Date Recorded Sex Assigned at Not on file Gender Identity Not on file Sexual Orientation Not on file documented as of this encounter Last Filed Vital Signs Vital Sign Reading Time Taken Comments Blood Pressure 129/85 05/22/2023 12:07 PM EDT Pulse 122 05/22/2023 12:07 PM EDT Temperature 37.1 ??C (98.8 ??F) 05/22/2023 12:07 PM E DT Respiratory Rate 20 05/22/2023 12:07 PM EDT Oxygen Saturation 100% 05/22/2023 12:07 PM EDT Inhaled Oxygen Concentration - - Weight 121.8 kg (268 lb 8 oz) 05/22/2023 12:07 P M EDT Height - - Body Mass Index 39.63 12/07/2022 10:07 AM EST documented in this encounter Patient Instructions * Patient Instructions* Ceci Keller MD - 05/22/2023 1:00 PM EDT Stress urinary incontinence - Consider surgical treatment options: *Bulkamid - less invasive and likely to be effective Fascial sling Mesh sling Fonseca Call if you wish to proceed with a treatment. Overactive bladder / urinary urge incontinence - Try first line therapies for overactive bladder - handout given and reviewed Mild prolapse of back wall of the vagina ('rectocele') - Monitor for worsened symptoms Kegel exercises can help Prior constipation - much improved with softer stools Return to clinic based on what you choose to do for treatment. === Overactive bladder Overactive bladder is urinary urgency, frequency caused by spasms of the bladder. It can cause urine leakage, known as urge incontinence. Our first treatment approach is a range of home-based therapies that have been shown to be effective in reducing the number of voids (and leaks) per day. Start with the treatments listed below, and we will schedule a follow up telephone visit to providesupport for you and answer any questions. Pelvic floor physical therapy is also an option that can be very helpful. Home treatment options 1) Fluid management Avoid bladder irritants (caffeine, artificial sweeteners, alcohol, tobacco, carbonation, spicy/acidic foods & drinks) Decrease fluid intake at night or before a long drive/meeting to reduce voiding; instead, drink more at other times of day to stay well hydrated. Normal fluid intake should be 32-64 oz (1/2 to 1 gallon). 2)Evidence-based home therapy for overactive bladder: 1) Practice Kegel exercises - see below 2) Practice Urge suppression strategies - Freeze and Squeeze If you have trouble reaching the bathroom before you start losing urine, we recommend trying this technique. When you get the urge to urinate: Stop and stay still, sit down if you can Squeeze your pelvic floor muscles quickly 5-10 times; repeat as needed. This can help the bladder to relax. Elevate up on your toes several times, this can also help the bladder to relax. Relax the rest of your body and take a deep breath Concentrate on suppressing the urge Distract yourself to get your mind on something else. Wait until the urge subsides, then walk to the bathroom at a normal pace. Don't ignore the message - once it subsides, then walk to the bathroom to empty. 3) Timed voiding Set an alarm, and go try to empty your bladder every ___ minutes, whether you feel an urge or not. (Choose a time you KNOW you can wait without urgency or leaking, for instance, 30 or 60 min). Do this every day for a week (daytime only), or until it becomes easy, and you are not having urgency or leakage. If you do have an urge before it is time to void, use the Urge suppression strategies you have beenpracticing. If you find that you still do have urgency/leakage, then you should set a shorter time between voids and start over. 4) Bladder retraining - This can reestablish your brain's control over your bladder. Over several weeks to months, be strict with scheduling times to urinate. Gradually, you can increase the time between voids. After your first week of timed voiding, then gradually increase the time between voids, by 10-15 minutes. Every time your alarm goes off at this new time, go empty your bladder. When this becomes easy (approximately a week), increase the time again. In this way you can gradually increase your comfortable time between voids. Emptying your bladder every 2-4 hours is considered normal. More details 1) Kegel exercises Pelvic floor muscle strengthening Helpful instructions for doing Kegel exercises Recommended routine for Kegel exercises: Start by pulling and holding a pelvic muscle squeeze for 3 seconds then relax for an equal amount of time 3 seconds. Do this for 10 repetitions 3 times a day Increase your contraction hold by 1 second each week until you are koby for a 10-second squeeze. It is so important that you rest and breathe between contractions. When you start, do the exerciseswhile lying down. As you get stronger, doing exercise sets to sitting and standing. To make it easier to remember to do the exercises, make a habit of doing them when at the same timeas some other routine activities, such as brushing your teeth, washing the dishes, sitting at a redlight in your car, or watching a commercial on television. Kegel exercises are frequently discussed and childbirth classes are written about a magazine articles. Unfortunately, because pelvic muscles are hidden from view, it is difficult to know if you are doing them correctly. Some tips I can help you find the right muscles include: Imagine you are going to pass gas, then, squeeze the muscles that would prevent that gas from escaping from your rectum. Exercising the muscles around the rectum will also strengthen those around thevagina and under the bladder. Use a hand mirror to look at your vaginal opening in the perineum (the muscle wall between the vagina and rectum). You should see the perineum lift up when you contracture pelvic muscles. While lyingor sitting, place 1 finger inside your vagina. Squeeze as if you are trying to stop urine from coming out. You should feel your finger lifted and squeezed towards her head if you are correctly koby your pelvic muscles Do not hold your breath while exercising Remember not to tighten your stomach and back muscles or squeeze your legs together. They should berelaxed as you isolate and contract just your pelvic muscles. You do not have to do this alone! If you are not sure that you are doing the exercises correctly, let us know and we can give you a referral for a pelvic floor physical therapy evaluation. I felt pelvic floor physical therapist is like a motor coach driver to help you learn to use your pelvic floor muscles the best you can. They also can evaluate your back and abdominal strength, your gait and your posture. All of these affect how your pelvic muscles work. documented in this encounter Progress Notes * Ceci Keller MD - 05/22/2023 1:00 PM EDT Female Pelvic Medicine and Reconstructive Surgery @ [facility] Patient Name: Tracie Layton Patient Primary Care Provider: Gema Oliveira DO Referring provider: Tasneem Galdamez Patient Active Problem List Diagnosis Code Bilateral [...] Class 3 severe obesity in adult E66.01 Chief Complaint: mixed urinary incontinence, prolapse History of Present Illness: Ms. Layton is a 52 y.o. old para 3 woman, seen at the kind request of Dr. Tasneem Galdamez. She is a former patient of Dr. Ritchie, last visit was 2018. She previously trief pelvic floor physical therapy, had a sling placed 05/[address] Richards, and had a mesh excision 05/[address] Richards. She is a former 1/2 ppd smoker, and as of 2019 was tapering use. 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 As of last tube heater note, Pap smear due 2020. She presents for evaluation and assessment of urinary leakage and prolapse of 5+ duration. She reports leakage with coughing, sneezing, laughing, walking. She also leaks with lifting her grandchildren. She does not leak with urgency. She has been cutting her smoking and has not smoked for 2 weeks. Prior to this she was smoking 1 pack per day. She has been trying to manage her diabetes with trulicity and metformin. 12/07/22: A1c 7.[address] Richards's UDS 11/2017: Urinary incontinence, stress predominant symptoms. Leak point pressures > 100. Prior mid-urethral sling with complication of erosion. Morbid obesity, likely playing a factor in her incontinence and increases risks for surgical interventions. Recommendations: We reviewed options ranging from weight loss, bariatric surgery, trial of a vaginal insert such as a Poise Impressa or pessary, pelvic floor exercises. We also reviewed surgical options. Based on herleak point pressures, she would not be eligible for a urethral bulking agent. We reviewed the options of a repeat mid urethral synthetic sling and reviewed risks of recurrent erosion. We also reviewed the risks of an autologous fascia pubovaginal sling versus a retropubic urethropexy (Fonseca procedure). We reviewed that risks of an autologous fascial sling or higher for urinary retention and the average time to return to normal voiding is 4-6 weeks. She would need to learn clean intermittent self- catheterization if she was going to consider this option. We also reviewed that a Fonseca procedure has a similar success rate to mid urethral slings but a longer return to normal voiding, up to 1-2 weeks on average and again she would need to learn clean intermittent self-catheterization. She wants to consider her options further and will call if she wants to pursue any of the above interventions. Previous urinary incontinence/prolapse treatments (Medical/Behavioral/Surgical): mesh sling (transobturator sling) Goals for this visit 1. Discuss treatment for urinary incontinence and prolapse Urinary tract history Patient denies history of recurrent urinary tract infection. Patient denies history of pyelonephritis. Patient denies history of urinary tract abnormality. Patient denies history of nephrolithiasis. Patient denies history of hematuria. Bladder Function Urinary incontinence: ABILIO No. episodes: 5-8 per day Pad use (per day): 3-4 Pad type: poise incontinence moderate Daytime voids: 7-10 Nocturia: 1 Concern for CAS: snoring Previous urinary incontinence treatment (Medical/Behavioral/Surgical): TO mesh sling ICIQ-UI Short Form How often do you leak urine? Never 0 About once a week or less often 1 2-3 times a week 2 About once a day 3 4 Several times a day 4 All the time 5 How much urine do you usually leak? None 0 A small amount 1 2 A moderate amount 2 A large amount 3 Overall, how much does leaking interfere with your everyday life? 8 (0 not at all, 10 a great deal) ICIQ Sum the scores: 14 When does urine leak? (Check all that apply) Never - Urine does not leak Leaks before you can get to the toilet X Leaks when you cough or sneeze Leaks when you are asleep X Leaks when you are physically active/exercising Leaks when you have finished urinating or are dressed Leaks for no obvious reason Leaks all the time Bladder irritants: Fluid intake: 1 gallon water daily Caffeine intake: none Artificial sweeteners: none Cigarette smoking (packs, time, if quit when): current, quit 2 weeks ago, 1ppd Alcohol: none Storage symptoms Urinary frequency Nocturia x Stress urinary incontinence - leakage with exertion, cough/sneeze Urge urinary incontinence - leakage preceded immediately by urge to void Noctural enuresis - NOT IN ASSOCIATION WITH URGE Continuous urinary leakage Other: (e,g. giggle, intercourse-related) Bladder sensation Normal - aware of filling and increased sensation up to desire to void Increased - feels an early and persistent need to void Reduced - aware of filling but NOT definite desire to void Absent - NO sensation of filling or need to void Non-specific - No specific bladder symptoms during filling or void Voiding symptoms None Slow stream Spraying Intermittent stream - stop/start on > 1 occasion during void Straining - muscular effort to initiate, maintain OR improve stream Terminal dribble - prolonged final part of void X, double void Feeling of incomplete emptying Pelvic Organ Prolapse (POP) Do you personally see or feel a vaginal bulge? sometimes What precipitates prolapse or symptoms of prolapse? staining Previous treatment for POP (physical therapy, pessary, surgery)?: none Bowel Function Bowel concerns: Number of bowel movements (day/week): 2x/day Fecal incontinence (yes/no): no Number of fecal incontinent episodes (day/week): n/a Defecatory Dysfunction: Symptom Presence Symptom Presence NONE x Incomplete Emptying Straining Infrequent stools (<3 week) Splinting Abdominal discomfort Loose stools Defecatory urgency Hard stools Other Sexual Function Active?: no Pain with intercourse?: n/a If yes, insertional/Deep? N/a Desire to retain sexual function? Not really MEDICAL HISTORY Past Medical History: Diagnosis Date Agoraphobia Alcohol abuse Diabetes H/O suicide attempt 10/29/2014 Overdose in 1999 Hip problem History of cervical cancer 2001 s/p LEEP??? in [place] HTN (hypertension) Post-traumatic headache 05/31/2014 fell out of a hammock Past Surgical History: Procedure Laterality Date CERVIX SURGERY LEEP SECTION x2 CT GUIDED INJECTION SI JOINT 03/21/2023 CT Guided Injection SI Joint 03/21/2023 Margi Gomez MD [facility] RAD CT SCAN ENDOMETRIAL ABLATION HYSTERECTOMY laparoscopic for abnormaluterine bleeding PRO COLONOSCOPY, REMV LESN, SNARE N/A 06/11/2015 COLONOSCOPY, POLYPECTOMY, REMOVAL LESION BY SNARE performed by Larry Ryan MD at [facility] ENDOSCOPY PRO REMV/REVS SLING FOR STRES INCONTINENCE N/A 06/06/2017 SLING, REVISEOR REMOVE, REPLACE, VAGINALAPPROACH, SYNTHETIC\FASCIA (WRVU 11.15) performed by Frankie Richards MD at [facility] OSC PRO SLING OPER STRES INCONTINENCE N/A 06/08/2016 URETHRAL SUSPENSION, SLING\FASCIA OR SYNTHETIC performed by Frankie Richards MD at [facility] MAIN OR PRO UPPER GI ENDOSCOPY, BIOPSY 01/08/2014 EGD WITH BIOPSY performed by Ilya Whitney MD at [facility] ENDOSCOPY PRO UPPER GI ENDOSCOPY, BIOPSY N/A 06/21/2017 UPPER GASTROINTESTINAL ENDOSCOPY,WITH BIOPSY SINGLE OR MULTIPLE (WRVU 2.49) performed by Rickie Pineda MD at [facility] ENDOSCOPY PRO UPPER GI ENDOSCOPY, DIAGNOSTIC N/A 06/21/2017 EGD, UPPER GI ENDOSCOPY performed by Rickie Pineda MD at [facility] ENDOSCOPY TUBAL LIGATION 1992 OB History Para Term AB Living 3 3 2 1 0 3 SAB IAB Ectopic Multiple Live Births 0 0 0 0 0 # Outcome Date GA Lbr Hermes/2nd Weight Sex Delivery Anes PTL Lv 3 2 Term 1 Term Obstetric Comments 1st term , 2 c/s (2nd child 10wks early and 3rd child term). Vaginal delivery 5lb4oz Gynecologic History: LMP: Patient's last menstrual period was 10/06/2019 (exact date). S/p hysterectomy for AUB Outpatient Medications Marked as Taking for the 05/22/23 encounter (Office Visit) with Ceci Keller MD Medication Sig Dispense Refill Trulicity 0.75 mg/0.5 mL Pen Injector INJECT 0.75MG UNDER THE SKIN ONCE WEEKLY 2 mL 1 lisinopriL (Zestril) 40 mg tablet TAKE ONE TABLET BY MOUTH EVERY DAY 90 tablet 3 Trintellix 20 mg tablet TAKE ONE TABLET BY MOUTH EVERY DAY 90 tablet 3 pramipexole (Mirapex) 0.125 mg tablet TAKE TWO TABLETS BY MOUTH NIGHTLY 180 tablet 1 ondansetron ODT (Zofran-ODT) 4 mg disintegrating tablet DISSOLVE ONE TABLET ON THE TONGUE EVERY 8 HOURS NEEDED FOR NAUSEA 20 tablet 0 Ventolin HFA 90 mcg/actuation HFA Aerosol Inhaler INHALE TWO PUFFS INTO THE LUNGS EVERY 4 HOURS NEEDED FOR WHEEZING 18 g 3 varenicline (Chantix) 1 mg tablet Take 1 tablet by mouth 2 times daily (with meals). This medication should be taken in the middle of your largest meal(s) with a full glass of water. DO NOT TAKE ON AN EMPTY STOMACH. Indications: stop smoking 60 tablet 5 metoprolol succinate XL (Toprol-XL) 25 mg Tablet Sustained Release 24 hr Take 1 tablet by mouth daily. 90 tablet 3 metFORMIN (Glucophage) 1,000 mg Tablet Take 1 tablet by mouth 2 times daily (with meals). 90 tablet3 hydroCHLOROthiazide (Hydrodiuril) 25 mg Tablet Take 1 tablet by mouth daily. 90 tablet 3 omeprazole (PriLOSEC) 40 mg Capsule, Delayed Release(E.C.) Take 1 capsule by mouth daily. 90 capsule 3 Advair Diskus 100-50 mcg/dose Disk with Device Inhale 1 puff into the lungs every 12 hours. Brand name 1 each 12 diclofenac (Voltaren) 1 % Gel APPLY TOPICALLY TO THE AFFECTED AREA FOUR TIMES DAILY NEEDED 100 g3 ipratropium-albuterol (DUONEB) 0.5 mg-3 mg(2.5 mg base)/3 mL Solution for Nebulization INHALE THE CONTENTS OF 1 VIAL BY NEBULIZATION EVERY 4 HOURS NEEDED 180 mL 5 Allergies Allergen Reactions Bactrim [Sulfamethoxazole-Trimethoprim] Anaphylaxis Trimethoprim Anaphylaxis Aleve [Naproxen Sodium] Rash Per neuro team, patient has tolerated ketorolac in the past Keflex [Cephalexin] Other (See Comments) Racing heart Meloxicam Nausea Only Amlodipine Nausea And Vomiting Social History Socioeconomic History Marital status: Single Spouse name: Not on file Number of children: Not on file Years of education: Not on file Highest education level: Not on file Occupational History Not on file Tobacco Use Smoking status: Former Packs/day: 0.50 Years: 30.00 Pack years: 15.00 Types: Cigarettes Quit date: 05/12/2023 Years since quittin.0 Smokeless tobacco: Never Tobacco comments: Quit 5 wks ago Vaping Use Vaping Use: Never used Substance and Sexual Activity Alcohol use: Yes Comment: Very rare Drug use: No Sexual activity: Yes Partners: Male Comment: tubal ligation as control Other Topics Concern Not on file Social History Narrative Lives with Philipp boyfrienfarhan (13 years) 3 adult children, one grand daughter 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, 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 Disability for depression/ptsd from [employer] Financially getting by with help of partner Social Determinants of Health Financial Resource Strain: Unknown Difficulty of Paying Living Expenses: Patient refused Food Insecurity: Unknown Worried About Running Out of Food in the Last Year: Patient refused Ran Out of Food in the Last Year: Patient refused Transportation Needs: No Transportation Needs Lack of Transportation (Medical): No Lack of Transportation (Non-Medical): No Physical Activity: Inactive Days of Exercise per Week: 0 days Minutes of Exercise per Session: 0 min Housing Stability: Unknown Unable to Pay for Housing in the Last Year: No Number of Places Lived in the Last Year: 1 Unstable Housing in the Last Year: Patient refused Family History Problem Relation Age of Onset Brain Tumor Mother metastatic from lung Lung Cancer Mother No Known Problems Father Coronary Artery Disease Early Onset Brother 43 smoker Breast Cancer Maternal Aunt 60 Ovarian Cancer Neg Hx Colorectal Cancer Neg Hx Pancreatic Cancer Neg Hx Endometrial Cancer Neg Hx ROS: Review of all other systems negative except for those mentioned above or indicated below: (blank indicates negative) System Symptom Presence Constitutional Weight loss Intentional Weight gain Eyes History of glaucoma ENT/Mouth Mouth sores/Dry mouth Cardiovascular Chest pain Leg swelling Respiratory Wheezing SOB GI Nausea/vomiting Constipation Abdominal pain H/o diverticular disease Skin/Breast Breast masses Rash/ulcer Musculoskeletal Muscle weakness Trouble Walking Neurological Dizziness/falling Numbness Psychiatric Depression Anxiety Endocrine Abnormal thirst Menopause S/p hyst Hot flashes Hematologic Frequent bruising History of blood transfusions none Blood clots (DVT / PE) None Prior problems w/ anesthesia none Outside medical records reviewed: yes Data reviewed (images/urodynamic studies): yes OBJECTIVE: BP 129/85 Pulse (!) 122 Temp 37.1 ??C (98.8 ??F) Resp 20 Wt 121.8 kg (268 lb 8 oz) LMP 10/06/2019 (Exact Date) SpO2 100% BMI 39.63 kg/m?? To further delineate patient's urinary symptoms, a urine dip test and postvoid residual via the Verathon bladder scanner were obtained. After the patient voided, 0 mL was measured as a postvoid residual indicating normal emptying. Exam was performed with a hydrographic engineer: Dr. Keller. General: normal appearing female, pleasant mood, normal speech Skin: skin of abdomen/pelvis normal, vertical midline C/S scan, Pfannnsteil scar Respiratory: normal work of breathing Neuro: no paraspinous tenderness; saddle sensory function (S2-4) intact in the pelvic area to touch Cardiac: no lower extremity edema Gastrointestinal: no palpable masses/organomegaly, soft/nontender, no appreciable hernia Musculoskeletal: levator ani resting tone: 2/5, levator ani contraction: 2/5, Pelvic floor muscle tenderness: no levator ani muscle, bilateral no coccygeus muscle, bilaterally no obturator internus, bilaterally Pelvic: Cough stress test (empty supine): POSITIVE External Genitalia: Vulva, [place] and Bartholin glands normal, urethra without tenderness or mass Vagina: no concerning lesions, no evidence of mesh exopsure Atrophic epithelium (yes/no)?: no Discharge?: no Cervix: surgically absent Bimanual (uterus/adnexa): uterus surgically absent, no adnexal masses or tenderness Rectovaginal: deferred POP Q Measurements: Aa -2 Ba -2 C -8 GH 3, 3 PB 2, 2 TVL 10 Ap -2 Bp -2 D x Genital hiatus 2 fingerbreadths wide Impression: Ms. Layton is a .52 y.o. woman with: Stress urinary incontinence with concern for intrinsic sphincter deficiency, s/p TO mesh sling in 05/2016 (with Dr. Richards) and subsequent mesh exposure/ excision in 05/2017 (with Dr. Richards) Current smoker, motivated to cut down Type 2 DM, managed with Trulicity and Metformin, last A1c 7.5 (12/07/22) Regarding her stress incontinence, or leakage with cough and sneeze, we reviewed the pathophysiology and potential treatments, including Muscle strengthening home Kegel exercises pelvic floor physical therapy, which may improve but is unlikely to resolve all symptoms 2. Vaginal insert, including pessary 3. Procedures urethral bulking injection, which can be done in the office surgeries, including midurethral sling weight loss We discussed surgeries for stress urinary incontinence, including: -periurethral bulking injection (low risk, lower efficacy, done in office with local anesthesia) -synthetic midurethral sling (most effective option in both short- and long- tern; 3% risk of mesh exposure requiring minor surgical procedure; 2% risk of urinary retention requiring self-catheterization followed by sling release, and potential recurrence of stress urinary incontinence) -autologous fascial midurethral sling (slightly less effective than synthetic sling, but without risks of mesh) -autologous pubovaginal sling (harvest rectus fascia; less effective & more invasive) and -laparoscopic retropubic urethropexy (Fonseca procedure with permanent suture; less effective & somewhat more invasive) Recommendations: Based on the patient's expressed goals for management I have recommended the following: Stress urinary incontinence - Consider surgical treatment options: *Bulkamid - less invasive and likely to be effective Fascial sling Mesh sling Fonseca Call if you wish to proceed with a treatment. Overactive bladder / urinary urge incontinence - Try first line therapies for overactive bladder - handout given and reviewed Mild prolapse of back wall of the vagina ('rectocele') - Monitor for worsened symptoms Kegel exercises can help Prior constipation - much improved with softer stools Patient would be a good candidate for Bulkamid urethral bulking procedure in office given positive supine empty bladder GRINDER SET UP OPERATOR UNIVERSAL today and risk factors for wound complications for fascial sling or repeat mesh sling. Will schedule if desired. Continue efforts for glycemic control with DM2 and smoking cessation. We discussed that these efforts will help with wound healing and will prevent mesh complications if a subsequent mesh sling is desired. Return to clinic based on what you choose to do for treatment. Patient was seen and evaluated with attending Urogynecologist, Dr. Keller. Charbel Payne MD Female Pelvic Medicine and Reconstructive Surgery Fellow, PGY-6 CC: DO Tasneem Diggs STAFF NOTE Patient was seen in conjunction with Dr. Payne, a Fellow in Female Pelvic Medicine and Reconstructive Pelvic Surgery. The case was discussed at the time of the visit. The assessment and plan were formulated in discussion with me and I agree with them as documented. I have reviewed the history, physical exam, assessment and plan. Ceci Keller MD Division of Female Pelvic Medicine and Reconstructive Pelvic Surgery documented in this encounter Plan of Treatment Upcoming Encounters Date Type Department Care Team (Late st Contact Info) Description 09/05/2024 9:00 AM EDT Office Visit Internal Medicine at [address] [address] Gema Oliveira DO [facility] [address] [address] documented as of this encounter Procedures Procedure Name Priority Date/Time Associated Diagnosis Comments BLADDER SCANNER Routine 05/22/2023 Mixed stress and urge urinary incontinence documented in this encounter Results * Bladder Scanner (05/22/2023) Bladder Scan (mL) 0 mL Ceci Keller MD URO PROC W/O RFL ORD ERABLES documented in this encounter Visit Diagnoses Diagnosis Mixed stress and urge urinary incontinence Mixed incontinence urge and stress (male)(female) 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
--- OUTSIDE RECORDS SUMMARY | 2024-07-12 00:28 | XMS_ITS | Encounter Summary ---
Author Organization [facility] Address [facility] [place] [address] Care Team Providers Care Customs Compliance Specialist Name Role Phone Gema Oliveira DO Primary Care Provider [phone] Reason for Visit * Reason Onset Date Comments Medication Refill 05/19/2023 Encounter Details Date Type Department Care Team (Late st Contact Info) Description 05/19/2023 Refill [place] [address] Tasneem Galdamez MD [facility] [place] [address] Restless leg; Nausea without vomiting; QT prolongation Social History Tobacco Use Types [...] a prison (including now)? Patient refused 02/10/2023 Sex and Gender Information Value Date Recorded Sex Assigned at Not on file Gender Identity Not on file Sexual Orientation Not on file documented as of this encounter Miscellaneous Notes * Telephone Encounter - Dulce Maria Morrissey MA - 05/19/2023 12:23 PM EDT Prescription Renewal Request Name: Tracie Palm Macrina : 1970 Prescription(s) Requested: Requested Prescriptions Pending Prescriptions Disp Refills ondansetron ODT (Zofran-ODT) 4 mg disintegrating tablet 20 tablet 3 Sig: DISSOLVE ONE TABLET ON THE TONGUE EVERY 8 HOURS NEEDED FOR NAUSEA Refused Prescriptions Disp Refills pramipexole (Mirapex) 0.125 mg tablet 180 tablet 1 Sig: Take 2 tablets by mouth nightly. Date of Encounter last in This Dept (If need an appointment send to secretaries to schedule): 05/01/2023 Hemond Next Encounter in This Dept: Visit date not found Date of Last Refill (for each medication): 05/05/2023 20 w no refill Medication category requirements (labs etc): Status of request: Pended Allergies Allergen Reactions Bactrim [Sulfamethoxazole-Trimethoprim] Anaphylaxis Trimethoprim Anaphylaxis Aleve [Naproxen Sodium] Rash Per neuro team, patient has tolerated ketorolac in the past Keflex [Cephalexin] Other (See Comments) Racing heart Meloxicam Nausea Only Amlodipine Nausea And Vomiting Dulce Maria Morrissey MA 05/19/23 12:23 PM documented in this encounter Plan of Treatment Upcoming Encounters Date Type Department Care Team (Late st Contact Info) Description 09/05/2024 9:00 AM EDT Office Visit Internal Medicine at [address] [id number] [facility] [place] [address] documented as of this encounter Results * EKG 12 Lead (06/14/2023 3:03 PM EDT) Ventricular rate 117 BPM MUSE SYSTEM Atrial Rate 117 BPM MUSE SYSTEM P-R Interval 124 ms MUSE SYSTEM QRS Duration 70 ms MUSE SYSTEM Q-T Interval 344 ms MUSE SYSTEM QTC Calculated (Bezet) 479 ms MUSE SYSTEM Calculated P Anderson 53 degrees MUSE SYSTEM Calculated R Anderson 21 degrees MUSE SYSTEM Calculated T Anderson 25 degrees MUSE SYSTEM INTERPRETATION Sinus tachycardia Nonspecific ST and T wave abnormality Abnormal ECG When compared with ECG of 27-OCT-2022 08:42, No significant change was found Confirmed by MD Keaton, Kwame Murcia ([id number]) on 06/19/2023 9:50:38 AM MUSE SYSTEM 06/14/2023 3:03 PM EDT 06/19/2023 9:50 AM EDT Ragini Unger MD ECG ORDERABLES MUSE SYSTEM documented in this encounter Visit Diagnoses Diagnosis Restless leg Restless legs syndrome (RLS) Nausea without vomiting QT prolongation Nonspecific abnormal electrocardiogram (ECG) (EKG) documented in this encounter Additional Health Concerns Infection Onset Date Last Indicated Resolved Time Rule Out Respiratory 12/15/2023 12/15/2023 024 8:51 PM EST Rule Out COVID-19 12/15/2023 12/15/2023 12/15/2023 4:42 PM EST RSV 12/15/2023 12/15/2023 12/25/2023 8:09 PM EST documented as of this encounter Care Teams Customs Compliance Specialist Relationship Specialty Start Date End Date Gema Oliveira DO [facility] [place] [address] PCP - General General Internal Medicine 05/17/23 documented as of this encounter
--- OUTSIDE RECORDS SUMMARY | 2024-07-12 00:28 | XMS_ITS | Encounter Summary ---
Author Organization [facility] Address [facility] [place] [address] Care Team Providers Care Medical Chemist Name Role Phone Tasneem Galdamez MD Primary Care Provider [phone] Encounter Details Date Type Department Care Team (Late st Contact Info) Description 02/01/2023 Orders Only Radiology at [facility] [place] [id number] Suzan Ruiz APRN [facility] [address] Social History Tobacco Use Types Packs/Day Years [...] like food, housing, medical care, and heating? Hard 10/27/2022 Exercise Vital Sign Answer Date Recorde d On average, how many days pe r week do you engage in moderate to strenuous exercise (like a brisk walk)? 0 days Minutes of Exercise per Session Not on file 10/27/2022 Hunger Vital Sign Answer Date Recorded Within the past 12 months, y ou worried that your food would run out before you got the money to buy more. Sometimes true Within the past 12 months, t he food you bought just didn't last and you didn't have money to get more. Sometimes true 06/2022 PRAPARE - Transportation Answer Date Re corded In the past 12 months, has l ack of transportation kept you from medical appointments or from getting medications? No 06/2022 In the past 12 months, has l ack of transportation kept you from meetings, work, or from getting things needed for daily living? No 10/27/2022 Housing Stability Vital Sign Answer Jorge e Recorded In the last 12 months, was t here a time when you were not able to pay the mortgage or rent on time? No 10/27/2022 In the last 12 months, how many places have you lived? 1 10/27/2022 In the last 12 months, was t here a time when you did not have a steady place to sleep or slept in a [place] health care facility (including now)? No 10/27/2022 Sex and Gender Information Value Date Recorded Sex Assigned at Not on file Gender Identity Not on file Sexual Orientation Not on file documented as of this encounter Plan of Treatment Upcoming Encounters Date Type Department Care Team (Late st Contact Info) Description 09/05/2024 9:00 AM EDT Office Visit Internal Medicine at [place] [phone] Gema Oliveira DO [facility] [place] [address] documented as of this encounter Visit Diagnoses Not on filedocumented in this encounter Care Teams Medical Chemist Relationship Specialty Start Date End Date Tasneem Galdamez MD [facility] [place] [address] PCP - General General Internal Medicine 05/20/2004/21 documented as of this encounter
--- OUTSIDE RECORDS SUMMARY | 2024-07-12 00:28 | XMS_ITS | Encounter Summary ---
Author Organization [facility] Address [facility] [place] [address] Care Team Providers Care Sonographer Name Role Phone Tasneem Galdamez MD Primary Care Provider [phone] Encounter Details Date Type Department Care Team (Late st Contact Info) Description 05/02/2023 Telephone Internal Medicine at [facility] [address] [place] [address] Shanna Bishop Social History Tobacco [...] place to sleep or slept in a retirement (including now)? Patient refused 02/10/2023 Sex and Gender Information Value Date Recorded Sex Assigned at Not on file Gender Identity Not on file Sexual Orientation Not on file documented as of this encounter Miscellaneous Notes * Telephone Encounter - Shanna Bishop - 05/02/2023 1:[address] Galdamez, would like Tracie to see new pcp Dr Gema Oliveira in 3 months. Called pt LVM. Please help schedule ove documented in this encounter Plan of Treatment Upcoming Encounters Date Type Department Care Team (Late st Contact Info) Description 09/05/2024 9:00 AM EDT Office Visit Internal Medicine at [place] [phone] Gema Oliveira DO [facility] [place] [address] documented as of this encounter Visit Diagnoses Not on filedocumented in this encounter Care Teams Sonographer Relationship Specialty Start Date End Date Tasneem Galdamez MD [facility] [address] [place] [address] PCP - General General Internal Medicine 05/20/2004/21 documented as of this encounter
--- OUTSIDE RECORDS SUMMARY | 2024-07-12 00:28 | XMS_ITS | Encounter Summary ---
Author Organization [facility] Address [facility] [place] [address] Care Team Providers Care Machine Shorthand Teacher Name Role Phone Gema Oliveira DO Primary Care Provider [phone] Reason for Visit * Reason Comments Medication Refill Encounter Details Date Type Department Care Team (Late st Contact Info) Description 05/21/2023 Refill Internal Medicine at [address] [address] Tasneem Galdamez MD [facility] [place] [address] Nausea without vomiting Social History Tobacco Use [...] encounter Miscellaneous Notes * Telephone Encounter - Radha Dsouza MA - 05/22/2023 2:36 PM EDT Prescription Renewal Request Name: Tracie Layton : 1970 Prescription(s) Requested: Requested Prescriptions Pending Prescriptions Disp Refills ondansetron ODT (Zofran-ODT) 4 mg disintegrating tablet [Pharmacy Med Name: ONDANSETRON ODT 4 MG TABLET] 90 tablet 0 Sig: DISSOLVE ONE TABLET ON THE TONGUE EVERY 8 HOURS NEEDED FOR NAUSEA Date of Encounter last in This Dept (If need an appointment send to secretaries to schedule): 05/01/23 Calvniond Next Encounter in This Dept: 08/14/2023 Date of Last Refill (for each medication): 05/05/23 20 w no refill Medication category requirements (labs etc): n/a Status of request: Pended Allergies Allergen Reactions Bactrim [Sulfamethoxazole-Trimethoprim] Anaphylaxis Trimethoprim Anaphylaxis Aleve [Naproxen Sodium] Rash Per neuro team, patient has tolerated ketorolac in the past Keflex [Cephalexin] Other (See Comments) Racing heart Meloxicam Nausea Only Amlodipine Nausea And Vomiting Radha Dsouza MA 05/22/23 2:38 PM documented in this encounter Plan of Treatment Upcoming Encounters Date Type Department Care Team (Late st Contact Info) Description 09/05/2024 9:00 AM EDT Office Visit Internal Medicine at [address] [address] Gema Oliveira DO [facility] [place] [address] documented as of this encounter Visit Diagnoses Diagnosis Nausea without vomiting documented in this encounter Additional Health Concerns Infection Onset Date Last Indicated Resolved Time Rule Out Respiratory 12/15/2023 12/15/2023 024 8:51 PM EST Rule Out COVID-19 12/15/2023 12/15/2023 12/15/2023 4:42 PM EST RSV 12/15/2023 12/15/2023 12/25/2023 8:09 PM EST documented as of this encounter Care Teams Machine Shorthand Teacher Relationship Specialty Start Date End Date Gema Oliveira DO [facility] [place] [address] PCP - General General Internal Medicine 05/17/23 documented as of this encounter
--- OUTSIDE RECORDS SUMMARY | 2024-07-12 00:28 | XMS_ITS | Encounter Summary ---
Author Organization [facility] Address [facility] [place] [address] Care Team Providers Care Ob Nurse Name Role Phone Tasneem Galdamez MD Primary Care Provider [phone] Reason for Visit * Reason Comments Medication Refill Encounter Details Date Type Department Care Team (Late st Contact Info) Description 05/05/2023 Refill Internal Medicine at [address] [address] Tasneem Galdamez MD [facility] [place] [address] Nausea without vomiting Social History Tobacco Use [...] encounter Miscellaneous Notes * Telephone Encounter - Nirmala Worley MA - 05/05/2023 10:39 AM EDT Prescription Renewal Request Name: Tracie Layton : 1970 Prescription(s) Requested: Requested Prescriptions Pending Prescriptions Disp Refills ondansetron ODT (Zofran-ODT) 4 mg disintegrating tablet [Pharmacy Med Name: ONDANSETRON ODT 4 MG TABLET] 20 tablet 0 Sig: DISSOLVE ONE TABLET ON THE TONGUE EVERY 8 HOURS NEEDED FOR NAUSEA Date of Encounter last in This Dept (If need an appointment send to secretaries to schedule): 05/01/23 Rudolph Next Encounter in This Dept: Visit date not found Date of Last Refill (for each medication): 04/27/23 with 0 refills Medication category requirements (labs etc): N/A Status of request: Pended Allergies Allergen Reactions Bactrim [Sulfamethoxazole-Trimethoprim] Anaphylaxis Trimethoprim Anaphylaxis Aleve [Naproxen Sodium] Rash Per neuro team, patient has tolerated ketorolac in the past Keflex [Cephalexin] Other (See Comments) Racing heart Meloxicam Nausea Only Amlodipine Nausea And Vomiting Nirmala Worley MA 05/05/23 10:40 AM documented in this encounter Plan of Treatment Upcoming Encounters Date Type Department Care Team (Late st Contact Info) Description 09/05/2024 9:00 AM EDT Office Visit Internal Medicine at [address] [address] Gema Oliveira DO [facility] [place] [address] documented as of this encounter Visit Diagnoses Diagnosis Nausea without vomiting documented in this encounter Care Teams Ob Nurse Relationship Specialty Start Date End Date Tasneem Galdamez MD [facility] [address] [address] PCP - General General Internal Medicine 05/20/2004/21 documented as of this encounter
--- OUTSIDE RECORDS SUMMARY | 2024-07-12 00:28 | XMS_ITS | Encounter Summary ---
Author Organization [facility] Address [facility] [place] [address] Care Team Providers Care Ultrasound Tester Name Role Phone Tasneem Galdamez MD Primary Care Provider Reason for Visit * Reason Onset Date Comments Medication Refill 04/03/2023 Encounter Details Date Type Department Care Team (Late st Contact Info) Description 04/03/2023 Refill Internal Medicine at [facility] [address] [place] [address] Tasneem Galdamez MD [facility] [address] Nausea without vomiting Social History Tobacco Use [...] care home (including now)? Patient refused 02/10/2023 Sex and Gender Information Value Date Recorded Sex Assigned at Not on file Gender Identity Not on file Sexual Orientation Not on file documented as of this encounter Plan of Treatment Upcoming Encounters Date Type Department Care Team (Late st Contact Info) Description 09/05/2024 9:00 AM EDT Office Visit Internal Medicine at [address] [id number] Gema Oliveira DO [facility] [address] [address] documented as of this encounter Visit Diagnoses Diagnosis Nausea without vomiting documented in this encounter Care Teams Ultrasound Tester Relationship Specialty Start Date End Date Tasneem Galdamez MD [facility] [place] [address] PCP - General General Internal Medicine 05/20/2004/21 documented as of this encounter
--- OUTSIDE RECORDS SUMMARY | 2024-07-12 00:28 | XMS_ITS | Encounter Summary ---
Author Organization [facility] Address [facility] [place] [address] Care Team Providers Care Cloth Shearer Name Role Phone Tasneem Galdamez MD Primary Care Provider Encounter Details Date Type Department Care Team (Late st Contact Info) Description 02/01/2023 Notes Only Radiology at [facility] [place] [phone] Suzan Ruiz APRN [facility] [place] [address] Social History Tobacco Use Types Packs/Day Years [...] slept in a care home (including now)? No 10/27/2022 Sex and Gender Information Value Date Recorded Sex Assigned at Not on file Gender Identity Not on file Sexual Orientation Not on file documented as of this encounter Progress Notes * Suzan Ruiz, TRACK SUPERINTENDENT - 02/01/2023 3:32 PM EDT Images from the original note were not included. NEURORADIOLOGY BRIEF PRE-PROCEDURE NOTE Name: Tracie Layton Date of : 1970 Referring provider: Selma Chandler PA-C Indication: SI instability/pain Planned Procedure: Bilateral CT guided SI injection Chief Complaint/HPI: Tracie Layton is a 52 y.o. female with interval worsening of chronic low backpain. Allergies: Allergies Allergen Reactions ??? Bactrim [Sulfamethoxazole-Trimethoprim] Anaphylaxis ??? Trimethoprim Anaphylaxis ??? Aleve [Naproxen Sodium] Rash Per neuro team, patient has tolerated ketorolac in the past ??? Keflex [Cephalexin] Other (See Comments) Racing heart ??? Meloxicam Nausea Only ??? Amlodipine Nausea And Vomiting Medications: Current Outpatient Medications: ??? metoprolol succinate XL (Toprol-XL) 25 mg Tablet Sustained Release 24 hr, Take 1 tablet by mouth daily., Disp: 90 tablet, Rfl: 3 ??? Blood-Glucose Meter [facility], 1 kit by [facility].(Non-Drug; Combo Route) route 4 times daily. Prefers one touch Ultra, but make sure strips ordered match machine dispensed, Disp: 1 each, Rfl: 0 ??? blood sugar diagnostic strips Strip, Use as instructed Prefers one touch Ultra, but make sure strips ordered match machine dispensed, Disp: 100 each, Rfl: 12 ??? varenicline (Chantix) 1 mg Tablet, TAKE 1 TABLET BY MOUTH TWICE DAILY WITH MEALS THIS MEDICATION SHOULD BE TAKEN IN THE MIDDLE OF YOUR LARGEST MEAL WITH A FULL GLASS OF WATER., Disp: , Rfl: ??? benzonatate (Tessalon) 100 mg Capsule, Take 1 capsule by mouth 3 times daily as needed for Cough., Disp: 30 tablet, Rfl: 0 ??? metFORMIN (Glucophage) 1,000 mg Tablet, Take 1 tablet by mouth 2 times daily (with meals)., Disp: 90 tablet, Rfl: 3 ??? semaglutide (Ozempic) 0.25 mg or 0.5 mg(2 mg/1.5 mL) Pen Injector, Inject 0.25 mg subcutaneously once a week for 30 days, THEN 0.5 mg once a week. Indications: type 2 diabetes mellitus, Disp: 3 mL, Rfl: 0 ??? pramipexole (MIRAPEX) 0.125 mg Tablet, Take 2 tablets by mouth nightly., Disp: 180 tablet, Rfl:1 ??? spironolactone (Aldactone) 25 mg Tablet, Take 1 tablet by mouth daily., Disp: 30 tablet, Rfl: 3 ??? cyclobenzaprine (Flexeril) 5 mg Tablet, Take 1 tablet by mouth nightly as needed for Muscle spasms., Disp: 20 tablet, Rfl: 0 ??? hydroCHLOROthiazide (Hydrodiuril) 25 mg Tablet, Take 1 tablet by mouth daily., Disp: 90 tablet,Rfl: 3 ??? lisinopriL (Zestril) 40 mg Tablet, Take 1 tablet by mouth daily., Disp: 90 tablet, Rfl: 3 ??? omeprazole (PriLOSEC) 40 mg Capsule, Delayed Release(E.C.), Take 1 capsule by mouth daily., Disp: 90 capsule, Rfl: 3 ??? Advair Diskus 100-50 mcg/dose Disk with Device, Inhale 1 puff into the lungs every 12 hours. Brand name, Disp: 1 each, Rfl: 12 ??? vortioxetine (Trintellix) 20 mg Tablet, Take 1 tablet by mouth daily., Disp: 90 tablet, Rfl: 3 ??? ProAir HFA 90 mcg/actuation HFA Aerosol Inhaler, Inhale 2 puffs into the lungs every 4 hours asneeded for Wheezing., Disp: 8.5 g, Rfl: 3 ??? diclofenac (Voltaren) 1 % Gel, APPLY TOPICALLY TO THE AFFECTED AREA FOUR TIMES DAILY NEEDED,Disp: 100 g, Rfl: 3 ??? ipratropium-albuterol (DUONEB) 0.5 mg-3 mg(2.5 mg base)/3 mL Solution for Nebulization, INHALE THE CONTENTS OF 1 VIAL BY NEBULIZATION EVERY 4 HOURS NEEDED, Disp: 180 mL, Rfl: 5 ??? Incontinence Pad, Liner, Disp Pad, 1 [facility].(Non-Drug; Combo Route) route every 4 hours as needed (for incontinence)., Disp: 200 each, Rfl: 11 Labs: Platelets Date Value Ref Range Status 08/26/2022 215 145 - 357 x10(3)/mcL Final Imaging: MRI lumbar spine 01/05/23 Assessment: 52 y.o. female without contraindication to proceed. Labs to be performed day of procedure: none Medications to discontinue: none Position: prone Sedation: local Additional medications for procedure: Lidocaine 1%, bupivicaine, dexamethasone Consent: day of procedure Suzan Ruiz APRN 02/01/2023 3:32 PM documented in this encounter Plan of Treatment Upcoming Encounters Date Type Department Care Team (Late st Contact Info) Description 09/05/2024 9:00 AM EDT Office Visit Internal Medicine at [address] [address] Gema Oliveira, [facility] [place] [address] documented as of this encounter Visit Diagnoses Not on filedocumented in this encounter Care Teams Cloth Shearer Relationship Specialty Start Date End Date Tasneem Galdamez MD [facility] [place] [address] PCP - General General Internal Medicine 05/20/2004/21 documented as of this encounter
--- OUTSIDE RECORDS SUMMARY | 2024-07-12 00:28 | XMS_ITS | Encounter Summary ---
Author Organization [facility] Address [facility] [place] [address] Care Team Providers Care Transformer Builder Name Role Phone Tasneem Galdamez MD Primary Care Provider [phone] Reason for Visit * Reason Comments Medication Refill Encounter Details Date Type Department Care Team (Late st Contact Info) Description 05/15/2023 Refill Internal Medicine at [address] [address] [facility] [place] [address] Type 2 diabetes mellitus without complication, unspecified whether manager intermediate insulin use; Essential hypertension; Moderate episode of recurrent major depressive disorder [...] Encounter - Dulce Maria Morrissey MA - 05/15/2023 4:52 PM EDT Prescription Renewal Request Name: Tracie Palm Macrina : 1970 Prescription(s) Requested: Requested Prescriptions Pending Prescriptions Disp Refills Trulicity 0.75 mg/0.5 mL Pen Injector [Pharmacy Med Name: TRULICITY 0.75 MG/0.5 ML PEN] 2 mL 1 Sig: INJECT 0.75MG UNDER THE SKIN ONCE WEEKLY lisinopriL (Zestril) 40 mg tablet [Pharmacy Med Name: LISINOPRIL 40 MG TABLET] 90 tablet 3 Sig: TAKE ONE TABLET BY MOUTH EVERY DAY Trintellix 20 mg tablet [Pharmacy Med Name: TRINTELLIX 20 MG TABLET] 90 tablet 3 Sig: TAKE ONE TABLET BY MOUTH EVERY DAY Date of Encounter last in This Dept (If need an appointment send to secretaries to schedule): 05/01/2023 Rudolph Next Encounter in This Dept: 08/14/2023 Date of Last Refill (for each medication): 03/22/2023 2ml w 1 refill 05/30/2022 90 w 3 refill 05/30/2022 90 w 3 refill Medication category requirements (labs etc): Lab Results Component Value Date HA1C 7.5 (A) 12/07/2022 Lab Results Component Value Date NA 139 12/07/2022 K 4.3 12/07/2022 CL 103 12/07/2022 CO2 25 12/07/2022 BUN 17 12/07/2022 CREATININE 1.03 12/07/2022 GLUCOSE 211 (H) 12/07/2022 GLUCFASTING 116 (H) 02/22/2016 CALCIUM 9.9 12/07/2022 ESTGFR 66 12/07/2022 Status of request: Pended Allergies Allergen Reactions Bactrim [Sulfamethoxazole-Trimethoprim] Anaphylaxis Trimethoprim Anaphylaxis Aleve [Naproxen Sodium] Rash Per neuro team, patient has tolerated ketorolac in the past Keflex [Cephalexin] Other (See Comments) Racing heart Meloxicam Nausea Only Amlodipine Nausea And Vomiting Dulce Maria Morrissey MA 05/15/23 4:53 PM documented in this encounter Plan of Treatment Upcoming Encounters Date Type Department Care Team (Late st Contact Info) Description 09/05/2024 9:00 AM EDT Office [place] [address] [facility] [place] [address] documented as of this encounter Visit Diagnoses Diagnosis Type 2 diabetes mellitus without complication, unspecified whether mcfp insulin use Essential hypertension Unspecified essential hypertension Moderate episode of recurrent major depressive disorder documented in this encounter Care Teams Transformer Builder Relationship Specialty Start Date End Date Tasneem Galdamez MD [facility] [address] [place] [address] PCP - General General Internal Medicine 05/20/2004/21 documented as of this encounter
--- OUTSIDE RECORDS SUMMARY | 2024-07-12 00:28 | XMS_ITS | Encounter Summary ---
Author Organization [facility] Address [facility] [place] [address] Care Team Providers Care Prepared Foods Supervisor Name Role Phone Tasneem Galdamez MD Primary Care Provider [phone] Reason for Visit * Reason Comments Follow-up Encounter Details Date Type Department Care Team (Late st Contact Info) Description 05/01/2023 3:30 PM EDT TH Visit (TeleHealth) Internal Medicine at [address] [address] Tasneem Galdamez MD [facility] [place] [address] Type 2 diabetes mellitus without complication, without long-term current use of insulin; Smoking; Mixed stress and urge urinary incontinence; PTSD (post-traumatic stress disorder); Moderate episode of recurrent major depressive disorder; Hypertension, essential, benign; Osteoarthritis of spine with radiculopathy, lumbar region Social History Tobacco Use Types [...] as of this encounter Progress Notes * Tasneem Galdamez MD - 05/01/2023 3:30 PM EDT TeleHealth Based Clinical Care Note Tracie Schrader verbally consented to conduct this clinical encounter by telephone or video/telehealth. she acknowledges that her insurance may be billed for the care provided, similar to an in person appointment. Tracie Layton is in the following location at the time of the phone call: [place], [place] Reason for visit/chief complaint: Chief Complaint Patient presents with Follow-up Current Medications (which were reviewed during the visit): Medications 03/22/23 1255 Medication Sig Taking? ondansetron ODT (Zofran-ODT) 4 mg disintegrating tablet DISSOLVE ONE TABLET ON TONGUE EVERY 8 HOURSAS NEEDED FOR NAUSEA blood sugar diagnostic strips Strip 1 strip by Other route 4 times daily. Use as instructed Prefersone touch Ultra, but make sure strips ordered match machine dispensed dulaglutide (Trulicity) 0.75 mg/0.5 mL Pen Injector Inject 0.5 mLs subcutaneously once a week. Indications: type 2 diabetes mellitus Ventolin HFA 90 mcg/actuation HFA Aerosol Inhaler INHALE TWO PUFFS INTO THE LUNGS EVERY 4 HOURS NEEDED FOR WHEEZING varenicline (Chantix) 1 mg tablet Take 1 tablet by mouth 2 times daily (with meals). This medication should be taken in the middle of your largest meal(s) with a full glass of water. DO NOT TAKE ON AN EMPTY STOMACH. Indications: stop smoking metoprolol succinate XL (Toprol-XL) 25 mg Tablet Sustained Release 24 hr Take 1 tablet by mouth daily. Blood-Glucose Meter Misc 1 kit by [facility].(Non-Drug; Combo Route) route 4 times daily. Prefers one touch Ultra, but make sure strips ordered match machine dispensed metFORMIN (Glucophage) 1,000 mg Tablet Take 1 tablet by mouth 2 times daily (with meals). pramipexole (MIRAPEX) 0.125 mg Tablet Take 2 tablets by mouth nightly. cyclobenzaprine (Flexeril) 5 mg Tablet Take 1 tablet by mouth nightly as needed for Muscle spasms. hydroCHLOROthiazide (Hydrodiuril) 25 mg Tablet Take 1 tablet by mouth daily. lisinopriL (Zestril) 40 mg Tablet Take 1 tablet by mouth daily. omeprazole (PriLOSEC) 40 mg Capsule, Delayed Release(E.C.) Take 1 capsule by mouth daily. Advair Diskus 100-50 mcg/dose Disk with Device Inhale 1 puff into the lungs every 12 hours. Brand name vortioxetine (Trintellix) 20 mg Tablet Take 1 tablet by mouth daily. diclofenac (Voltaren) 1 % Gel APPLY TOPICALLY TO THE AFFECTED AREA FOUR TIMES DAILY NEEDED ipratropium-albuterol (DUONEB) 0.5 mg-3 mg(2.5 mg base)/3 mL Solution for Nebulization INHALE THE CONTENTS OF 1 VIAL BY NEBULIZATION EVERY 4 HOURS NEEDED Incontinence Pad, Liner, Disp Pad 1 each by [facility].(Non-Drug; Combo Route) route every 4 hours as needed (for incontinence). Patient Reported: There were no vitals filed for this visit. General: Appears well, NAD Wt Readings from Last 3 Encounters: 12/07/22 127.9 kg (282 lb) 10/27/22 128.4 kg (283 lb) 08/26/22 127.8 kg (281 lb 12.8 oz) Documentation of content of discussion: T2DM - Currently on Metformin 2000mg and Trulicity 0.75mg weekly - Has been on Trulicity for about 6 weeks - Had prescribed Zofran as a bridge. She estimates she uses it 3-4x weekly and that it has been very helpful. - She does have diarrhea 2x per day, loose, not watery. No blood. She thinks its from the metformin, as its persisted even during times she's been off the injectables. - Last A1C was 7.0%, 02/15/2023 - Home sugars: 140s - 180s - Weight loss: Thinks she's lost some weight, she doesn't routinely weigh herself, but has noticed she's gone down 2 belt loops Prior medications: - Victoza -- stopped due to GI upset - Jardiance - stopped due to GI upset - Ozempic - stopped due to GI upset Current Smoker - Currently 1 pack/day - Previously done well with Chantix, but PA denied without involvement in a quit program. Referral sent in March. - Recently lost her [id number] unexpectedly, so has struggled with quitting. Recently stopped Chantix in this setting, but wants to start again. Chronic low back pain - 12/2022 MRI lumbar spine with interval worsening of degenerative disc disease at L5-S1 with possible impingement of left S1 nerve root. Marked interval worsening of bilateral facet arthropathy at L4-5 with worsening spinal stenosis. - Saw neurosurgery 01/2023, they did not feel she had symptoms from the above S1 impingement. Ratherhad recommended bilateral CT guided SI joint injections for diagnosis purposes. - Injections done 03/21/2023; has had improvement on the right, but worsened pain on the left. No radicular pain. Will follow up with neurosurg for next steps. Depression/anxiety/PTSD: -Currently doing well on Trintellix 20 mg daily -Mood has been fair despite several life stressors. She feels she is coping well. Denies SI. Has lots of protective factors, like her grandchildren and she has been keeping busy with jerry. Stress Incontinence - Hx of hysterectomy - Hx of bladder sling in 2016, with revision in 2017 - The surgeries intially improved symptoms, but has been having more incontinence. Mostly related to position changes, coughing or laughing. Also had some urgency - Denies blood in urine or burning. - Urogyn appointment scheduled Palpitations Sinus Tachycardia HTN -Currently on HCTZ 25 mg, lisinopril 40 mg and metoprolol succinate 25 mg - Home pressures: Not consistently checking - No racing heart, no chest pain or pressure Prior therapies: -Carvedilol --> discontinued due to nausea and vomiting -Spironolactone --> patient self discontinued due to nausea Assessment and Plan: 1. Type 2 diabetes mellitus without complication, without long-term current use of insulin Doing fair with metformin and Trulicty, but does have some GI symptoms (nausea and loose stools). She has been taking Zofran as a bridge for the nausea associated with the Trulicty. She has an upcoming appointment at the hospital in May, at which time she will update A1C. If A1C is still at goal, will consider tapering down Metformin to see if that helps with the loose stools. Note, last year her EKG showed an Qtc of 472 and she is on several Qtc prolonging medications (Trintellix and now Zofran), so she should have an updated EKG next time she is in person for follow up. 2. Smoking Continues to smoke, but has chantix and is motivated to re-start it and work on quitting. 3. Mixed stress and urge urinary incontinence Has upcoming urgogyn appointment 4. PTSD (post-traumatic stress disorder) 5. Moderate episode of recurrent major depressive disorder Doing fair despite several life stressors on Trintellix. 6. Hypertension, essential, benign She is not currently checking home readings. CTM 7. Osteoarthritis of spine with radiculopathy, lumbar region Following with neurosurg, has repeat MRI scheduled in summer Follow Up: - 3 months Total time spent associated with the visit including patient discussion and pre/post visit chart activities: 30 minutes * Ragini Unger MD - 05/01/2023 3:30 PM EDT The case was discussed in person at the time of the visit or immediately after the visit. The assessment and plan were formulated in discussion with me and I agree with them as documented. I have reviewed the history, physical exam, assessment and plan with the resident. Major issues discussed today: Dr. Galdamez participated in a video visit with pt to f/up on multiple medical issues. Depression/anxiety/PTSD - on trintellix 20 mg once daily. Lost brother in law recently. Has support. HTN - On hctz 25, lisinopril 40, metoprolol succinate 25. no checks at home. Had palpitations. Thatis better now on metoprolol. No change. DM - on metformin 1000 bid. Could not tolerated GLP1, DPPT. Has failed ozempic, but trial of trulicity with zofran with days of increased symptoms. Using zofran 3-4/week. Usually around the injection. Besides gi symptoms is happy with medication. Last A1c 7 when she was on brief trial of ozempic. Is due at end of month and will get in the hospital in May. As she has gi symptoms with metformin, can consider taper. tob cessation - was hoping to stop, but recent increase stressors. Has recently restarted chantix. Urinary incontinence - followed by urogyn. Will f/up with them in the future. Low back pain - recent LESI with improvement. She is to get another MRI. F/up in 3 months. * Shanna Bishop - 05/01/2023 3:30 PM EDT Called lvm to help schedule 3 mo f/u OVE with Dr Oliveira * Shanna Bishop - 05/01/2023 3:30 PM EDT Called LVM documented in this encounter Plan of Treatment Upcoming Encounters Date Type Department Care Team (Late st Contact Info) Description 09/05/2024 9:00 AM EDT Office Visit Internal Medicine at [facility] [address] [place] [address] Gema Oliveira, DO [facility] [place] [address] documented as of this encounter Results * (ABNORMAL) Hemoglobin A1c (05/22/2023 2:33 PM EDT) Hemoglobin A1c 6.2(H) 4.3 - 5.6 % [facility] Comment: Reference Range: 4.3 - 5.6% 5.7 - 6.4% - Increased Risk of Developing Diabetes Mellitus >= 6.5% - Consistent with diagnosis of Diabetes Mellitus In the absence of hyperglycemia (i.e. plasma glucose > 200 mg/dL) or classic symptoms of hyperglycemia a repeat measurement of HbA1c should be performed on a separate sample to confirm the diagnosis. Diagnosis and Classification of Diabetes Mellitus, Diabetes Care 2013; 36: Suppl. 1, R01-85 Estimated Average Glucose 131 mg/dL [facility] Comment: eAG equivalents for HbA1c percentages: HbA1c(%) ?eAG(mg/dL) 6.0 ?126 6.5 ?140 7.0 ?154 7.5 ?169 8.0 ?183 8.5 ?197 9.0 ?212 9.5 ?226 10.0 ? 240 Limitations: The eAG calculation has not been validated on women, individuals below 18 years old and above 70 years old, and individuals with hemoglobinopathies. Additional resources are available on the ADA website. Preet ZARATE, Heather J, Linh R, et al. ??Translating the A1C assay into estimated average glucose values. ??Diabetes Care 2008:31(8):1173-7497. Blood 05/22/2023 2:33 PM EDT 05/22/2023 2:38 PM EDT Narrative Resulting Agency Comment Spec In Lab Ragini Unger MD CHEMISTRY ORDERABLES [facility] [place] [address] documented in this encounter Visit Diagnoses Diagnosis Type 2 diabetes mellitus without complication, without long-term current use of insulin Smoking Tobacco use disorder Mixed stress and urge urinary incontinence Mixed incontinence urge and stress (male)(female) PTSD (post-traumatic stress disorder) Posttraumatic stress disorder Moderate episode of recurrent major depressive disorder Hypertension, essential, benign Essential hypertension, benign Osteoarthritis of spine with radiculopathy, lumbar region documented in this encounter Care Teams Prepared Foods Supervisor Relationship Specialty Start Date End Date Tasneem Galdamez MD [facility] [place] [address] PCP - General General Internal Medicine 05/20/2004/21 documented as of this encounter
--- OUTSIDE RECORDS SUMMARY | 2024-07-12 00:28 | XMS_ITS | Encounter Summary ---
Author Organization Replaced By [facility] Address [facility] [place] [address] Care Team Providers Care Technical Report Writer Name Role Phone Gema Oliveira DO Primary Care Provider [phone] Encounter Details Date Type Department Care Team (Latest Contact Info) Description 05/21/2023 Travel Social History Tobacco Use Types Packs/Day [...] EDT Office Visit Internal Medicine at [address] [address] Gema Oliveira DO [facility] [address] [address] documented as of this encounter Visit Diagnoses Not on filedocumented in this encounter Care Teams Technical Report Writer Relationship Specialty Start Date End Date Gema Oliveira DO [facility] [place] [place] [address] PCP - General General Internal Medicine 05/17/23 documented as of this encounter
--- OUTSIDE RECORDS SUMMARY | 2024-07-12 00:28 | XMS_ITS | Encounter Summary ---
Author Organization [facility] Address [facility] [place] [address] Care Team Providers Care Polytechnic Teacher Name Role Phone Gema Oliveira DO Primary Care Provider [phone] Reason for Visit * Reason Onset Date Comments Medication Refill 07/13/2023 Encounter Details Date Type Department Care Team (Late st Contact Info) Description 07/13/2023 Refill Internal Medicine at [address] [id number] Gema Oliveira, DO [facility] INTERNAL [place] [address] Nausea without vomiting Social History Tobacco Use [...] a chcf (including now)? Patient refused 02/10/2023 Sex and Gender Information Value Date Recorded Sex Assigned at Not on file Gender Identity Not on file Sexual Orientation Not on file documented as of this encounter Miscellaneous Notes * Telephone Encounter - Nirmala Worley MA - 07/13/2023 9:39 AM EDT Prescription Renewal Request Name: Tracie Layton : 1970 Prescription(s) Requested: Requested Prescriptions Pending Prescriptions Disp Refills ondansetron ODT (Zofran-ODT) 4 mg disintegrating tablet 20 tablet 0 Sig: DISSOLVE ONE TABLET ON THE TONGUE EVERY 8 HOURS NEEDED FOR NAUSEA Date of Encounter last in This Dept (If need an appointment send to secretaries to schedule): 05/01/23 Hemond Next Encounter in This Dept: 08/14/2023 Date of Last Refill (for each medication): 06/22/23 Medication category requirements (labs etc): n/a Status of request: Pended Allergies Allergen Reactions Bactrim [Sulfamethoxazole-Trimethoprim] Anaphylaxis Trimethoprim Anaphylaxis Aleve [Naproxen Sodium] Rash Per neuro team, patient has tolerated ketorolac in the past Keflex [Cephalexin] Other (See Comments) Racing heart Meloxicam Nausea Only Amlodipine Nausea And Vomiting Nirmala Worley MA 07/13/23 9:40 AM documented in this encounter Plan of Treatment Upcoming Encounters Date Type Department Care Team (Late st Contact Info) Description 09/05/2024 9:00 AM EDT Office Visit Internal Medicine at [address] [address] Gema Oliveira DO [facility] [place] [address] documented as of this encounter Visit Diagnoses Diagnosis Nausea without vomiting documented in this encounter Care Teams Polytechnic Teacher Relationship Specialty Start Date End Date Gema Oliveira DO [facility] [address] [place] [address] PCP - General General Internal Medicine 05/17/23 documented as of this encounter
--- OUTSIDE RECORDS SUMMARY | 2024-07-12 00:28 | XMS_ITS | Encounter Summary ---
[place] [address] Care Team Providers Care Property Preservation Specialist Name Role Phone Gema Oliveira DO Primary Care Provider [phone] Encounter Details Date Type Department Care Team (Latest Contact Info) Description 05/22/2023 2:30 PM EDT Laboratory Appointment Lab [address] [place] [id number] Type 2 diabetes mellitus without complication, without [...] place to sleep or slept in a usp (including now)? Patient refused 02/10/2023 Sex and Gender Information Value Date Recorded Sex Assigned at Not on file Gender Identity Not on file Sexual Orientation Not on file documented as of this encounter Plan of Treatment Upcoming Encounters Date Type Department Care Team (Late st Contact Info) Description 09/05/2024 9:00 AM EDT Office Visit Internal Medicine at [place] [id number] Gema Oliveira, [facility] [address] documented as of this encounter Procedures Procedure Name Priority Date/Time Associated Diagnosis Comments HEMOGLOBIN A1C Routine 05/22/2023 2:33 PM EDT Type 2 diabetes mellitus without complication, without long-term current use of insulin documented in this encounter Results * (ABNORMAL) Hemoglobin A1c (05/22/2023 2:33 PM EDT) Hemoglobin A1c 6.2(H) 4.3 - 5.6 % [facility] Comment: Reference Range: 4.3 - [...] Mellitus, Diabetes Care 2013; 36: Suppl. 1, J37-70 Estimated Average Glucose 131 mg/dL [facility] Comment: eAG equivalents for HbA1c percentages: [...] into estimated average glucose values. ??Diabetes Care 2008:31(8):6528-5784. Blood 05/22/2023 2:33 PM EDT 05/22/2023 2:38 PM EDT Narrative Resulting Agency Comment Spec In Lab Ragini Unger MD CHEMISTRY ORDERABLES [facility] [place] [place] [address] documented in this encounter Visit Diagnoses Diagnosis Type 2 diabetes mellitus without complication, without long-term current use of insulin documented in this encounter Care Teams Property Preservation Specialist Relationship Specialty Start Date End Date Gema Oliveira DO [facility] [address] PCP - General General Internal Medicine 05/17/23 documented as of this encounter
--- OUTSIDE RECORDS SUMMARY | 2024-07-12 00:28 | XMS_ITS | Encounter Summary ---
Author Organization [facility] Address [facility] [place] [address] Care Team Providers Care Rn Internal Medicine Name Role Phone Gema Oliveira DO Primary Care Provider [phone]- [phone] Encounter Details Date Type Department Care Team (Latest Contact Info) Description 06/14/2023 Travel Social History Tobacco Use Types Packs/Day [...] EDT Office Visit Internal Medicine at [address] [address] Gema Oliveira DO [facility] [address] [place] [address] documented as of this encounter Visit Diagnoses Not on filedocumented in this encounter Care Teams Rn Internal Medicine Relationship Specialty Start Date End Date Gema Oliveira DO [facility] [place] [address] PCP - General General Internal Medicine 05/17/23 documented as of this encounter
--- OUTSIDE RECORDS SUMMARY | 2024-07-12 00:28 | XMS_ITS | Encounter Summary ---
Author Organization [facility] Address [facility] [place] [address] Care Team Providers Care Care Analyst Name Role Phone eGma Oliveira DO Primary Care Provider [phone]- [phone] Reason for Visit * Reason Onset Date Comments Medication Refill 05/19/2023 Encounter Details Date Type Department Care Team (Late st Contact Info) Description 05/19/2023 Refill Internal Medicine at [address] [address] Tasneem Galdamez MD [facility] GENER[facility] [place] [address] Nausea without vomiting Social History Tobacco Use [...] AM EDT Office Visit Internal Medicine at [address] [address] Gema Oliveira, [facility] GENER[facility] [place] [address] documented as of this encounter Visit Diagnoses Diagnosis Nausea without vomiting documented in this encounter Additional Health Concerns Infection Onset Date Last Indicated Resolved Time Rule Out Respiratory 12/15/2023 12/15/2023 024 8:51 PM EST Rule Out COVID-19 12/15/2023 12/15/2023 12/15/2023 4:42 PM EST RSV 12/15/2023 12/15/2023 12/25/2023 8:09 PM EST documented as of this encounter Care Teams Care Analyst Relationship Specialty Start Date End Date Gema Oliveira DO [facility] GENER[facility] [place] [address] PCP - General General Internal Medicine 05/17/23 documented as of this encounter
--- OUTSIDE RECORDS SUMMARY | 2024-07-12 00:28 | XMS_ITS | Encounter Summary ---
Author Organization [facility] [place] [address] Care Team Providers Care Cloth Hauler Name Role Phone Tasneem Galdamez MD Primary Care Provider [phone] Reason for Referral * Diagnostic Test (Routine) - Closed Specialty Diagnoses / Procedures Referred By Contac t Referred To Contact Radiology Diagnoses Sacroiliac instability Procedures CT Guided Injection SI Joint Selma Chandler PA [address] [place] [address] [facility] [place] [address] Referral ID Status Reason Start Date Expiration Date V isits Requested Visits Authorized [id number] Closed Specialty Service Requested 02/01/2023 08/04/2024 1 1 Reason for Visit * Diagnostic Test (Routine) - Closed Specialty Diagnoses / Procedures Referred By Contac t Referred To Contact Radiology Diagnoses Sacroiliac instability Procedures CT Guided Injection SI Joint Selma Chandler PA [address] [place] [address] [facility] [place] [address] Referral ID Status Reason Start Date Expiration Date V isits Requested Visits Authorized [id number] Closed Specialty Service Requested 02/01/2023 08/04/2024 1 1 Encounter Details Date Type Department Care Team (Latest Contact Info) Description 03/21/2023 8:32 AM EDT - 03/21/2023 11:59 PM EDT [place] [address] Selma Chandler PA [address] [place] [id number] Sacroiliac instability Discharge Disposition: Home Social History Tobacco Use [...] Sig Dispensed Refills Start Date End Date Blood-Glucose Meter MiscIndications:Type 2 diabetes mellitus without complication, unspecified whether terminal gauger supervisor insulin use 1 kit by [facility].(Non-Drug; Combo Route) route 4 times daily. Prefers one touch Ultra, but make sure strips ordered match machine dispensed 1 each 12/27/2022 Advair Diskus 100-50 mcg/dose Disk with DeviceIndications:Mi ld intermittent asthma without complication Inhale 1 puff [...] needed (for incontinence). 200 each 11 10/03/2019 Ventolin HFA 90 mcg/actuation HFA Aerosol InhalerIndications:M ild intermittent asthma without complication,Obstruc tive lung disease (generalized) INHALE TWO PUFFS INTO THE LUNGS EVERY 4 HOURS NEEDED FOR WHEEZING 18 g 3 03/20/2023 04/16/2024 semaglutide (Ozempic) 0.25 mg or 0.5 mg(2 mg/1.5 mL) Pen InjectorIndications: type 2 diabetes mellitus Inject 0.25 mg subcutaneously once a week for 30 days, THEN 0.5 mg once a week for 30 days. Indications: type 2 diabetes mellitus 3 mL 02/10/2023 04/11/2023 varenicline (Chantix) 1 mg tabletIndications:sm oking cessation Take 1 tablet by mouth 2 [...] mouth daily. 90 tablet 3 12/28/2022 10/26/2023 blood sugar diagnostic strips StripIndications:Typ e 2 diabetes mellitus without complication, unspecified whether custodial insulin use Use as instructed Prefers one touch Ultra, but make sure strips ordered match machine dispensed 100 each 12 12/27/2022 03/22/2023 metFORMIN (Glucophage) 1,000 mg TabletIndications:Ty pe 2 diabetes mellitus without complication, without long-term current use of insulin Take 1 tablet by mouth 2 times daily (with meals). 90 tablet 3 12/07/2022 08/07/2023 pramipexole (MIRAPEX) 0.125 mg TabletIndications:Re stless leg Take 2 tablets by mouth nightly. 180 tablet 1 12/02/2022 05/10/2023 cyclobenzaprine (Flexeril) 5 mg Tablet Take 1 tablet by mouth nightly as needed for Muscle spasms. 20 tablet 10/17/2022 08/14/2023 hydroCHLOROthiazide (Hydrodiuril) 25 mg TabletIndications:Es sential hypertension Take 1 tablet by mouth daily. 90 tablet 3 05/30/2022 08/07/2023 lisinopriL (Zestril) 40 mg TabletIndications:Es sential hypertension Take 1 tablet by mouth daily. 90 tablet 3 05/30/2022 05/16/2023 omeprazole (PriLOSEC) 40 mg Capsule, Delayed Release(E.C.)Indicat ions:Gastroesophagea l reflux disease without esophagitis Take 1 capsule by mouth daily. 90 capsule 3 05/30/2022 06/14/2023 vortioxetine (Trintellix) 20 mg TabletIndications:Mo derate episode of recurrent major depressive disorder Take 1 tablet by mouth daily. 90 tablet 3 05/30/2022 05/16/2023 ipratropium-albutero l (DUONEB) 0.5 mg-3 mg(2.5 mg base)/3 mL Solution for Nebulization INHALE THE CONTENTS OF 1 VIAL BY NEBULIZATION EVERY 4 HOURS NEEDED 180 mL 5 11/27/2019 12/16/2023 documented as of this encounter Plan of Treatment Upcoming Encounters Date Type Department Care Team (Late st Contact Info) Description 09/05/2024 9:00 AM EDT Office Visit Internal Medicine at [place] [id number] Gema Oliveira, [facility] GENERAL [place] [address] documented as of this encounter Procedures Procedure Name Priority Date/Time Associated Diagnosis Comments CT GUIDED INJECTION SI JOINT Routine 03/21/2023 10:17 AM EDT Sacroiliac instability documented in this encounter Results * CT Guided Injection SI Joint (03/21/2023 10:17 AM EDT) Anatomical Region Laterality Modality Computed Tomogra phy Impressions 03/21/2023 11:[address]-guided bilateral sacroiliac joint anesthetic and steroid injection. Operators: Attending: Margi Gomez MD Procedure/Teaching Attestation: Margi Gomez MD Thank you for letting us participate in the care of this patient. ??If you are a health care provider and have any questions regarding this report, please contact the number below. ??For patients who have questions please contact the health child care sitter that requested your imaging first. ? Narrative 03/21/2023 11:55 AM EDT NEURORADIOLOGY PROCEDURE NOTE PROCEDURE: CT-Guided bilateral Sacroiliac Joint Injection CLINICAL HISTORY: Sacroiliac instability COMPARISON: MRI lumbar spine January 05, 2023. CT-guided sacroiliac joint procedure January 16, 2018 TECHNIQUE: The risks and benefits of the procedure were discussed with the patient, and written informed consent was obtained. Prior to beginning the procedure, a standard time out was performed. The patient was positioned prone on the CT table, and noncontrast images of the sacrum were obtained. ??An appropriate level and access path were chosen. ??The skin was then marked, prepped and draped in the usual sterile fashion. 1% lidocaine used for local anesthesia. ?? With intermittent CT fluoroscopic guidance, ??20 spinal needles were advanced into the bilateral sacroiliac joints. 2 mL of 0.5% bupivacaine mixed with 40 mg of Depo-Medrol was injected into each SI joint. ??The needles were removed and sterile bandages were placed. The patient tolerated the procedure well without immediate complications. ?? FINDINGS: Preprocedure pain: 5-6/10 on the right, ??4/10 on the left. Postprocedure pain: 0/10 on the right, 3/10 on the left. Procedure Note Margi Gomez MD - 03/21/2023 NEURORADIOLOGY PROCEDURE NOTE PROCEDURE: CT-Guided bilateral Sacroiliac Joint Injection CLINICAL HISTORY: Sacroiliac instability COMPARISON: MRI lumbar spine January 05, 2023. CT-guided sacroiliacjoint procedure January 16, 2018 TECHNIQUE: The risks and benefits of the procedure were discussed with the patient,and written informed consent was obtained. Prior to beginning the procedure,a standard time out was performed. The patient was positioned prone on theCT table, and noncontrast images of the sacrum were obtained. An appropriatelevel and access path were chosen. The skin was then marked, prepped and drapedin the usual sterile fashion. 1% lidocaine used for local anesthesia. With intermittent CT fluoroscopic guidance, 20 spinal needles wereadvanced into the bilateral sacroiliac joints. 2 mL of 0.5% bupivacaine mixed with40 mg of Depo-Medrol was injected into each SI joint. The needles were removedand sterile bandages were placed. The patient tolerated the procedure wellwithout immediate complications. FINDINGS: Preprocedure pain: 5-6/10 on the right, 4/10 on the left. Postprocedure pain: 0/10 on the right, 3/10 on the left. IMPRESSION Successful CT-guided bilateral sacroiliac joint anesthetic and steroid injection. Operators: Attending: Margi Gomez MD Procedure/Teaching Attestation: Margi Gomez MD Thank you for letting us participate in the care of this patient. If youare a health care provider and have any questions regarding this report,please contact the number below. For patients who have questions please contactthe health child care sitter that requested your imaging first. Selma Geraldine NG IMG CT ORDERABLES documented in this encounter Visit Diagnoses Diagnosis Sacroiliac instability Disorders of sacrum documented in this encounter Administered Medications Inactive Administered Medications - up to 3 most recent administrations Medication Order MAR Action Action Date Dose Rate Site BUpivacaine (pf) (Marcaine) (2.5 mg/mL) 0.25% injection 0-25 mg 0-25 mg (0-10 mL), Intra-articular, ONCE, 1 dose, On Tu03/21/23 at 1045, Radiology Protocol Medication, Routine Given 03/21/2023 10:45 AM EDT 20 mg dexAMETHasone (PF) (Decadron) (10 mg/mL) injection 0-10 mg 0-10 mg, Intra-articular, ONCE, 1 dose, On Tu03/21/23 at 1045, Radiology Protocol Medication, Routine Given 03/21/2023 10:45 AM EDT 10 mg documented in this encounter Care Teams Cloth Hauler Relationship Specialty Start Date End Date Tasneem Galdamez MD [facility] GENERAL [place] [address] PCP - General General Internal Medicine 05/20/2004/21 documented as of this encounter
--- OUTSIDE RECORDS SUMMARY | 2024-07-12 00:28 | XMS_ITS | Encounter Summary ---
Author Organization [facility] [place] [address] Care Team Providers Care Kayaking Instructor Name Role Phone Gema Oliveira DO Primary Care Provider [phone] Reason for Visit * Diagnostic Test (Routine) - Closed Specialty Diagnoses / Procedures Referred By María Elena mcdaniel Referred To Contact Radiology Diagnoses Left hip pain Procedures MRI Hip wo Contrast Left (Generic) MRI Hip wwo Contrast Left Tiburcio Garcia MD [address] [place] [address] [place] [address] Referral ID Status Reason Start Date Expiration Date V isits Requested Visits Authorized [id number] Closed Specialty Service Requested 04/07/2023 10/08/2024 1 1 Encounter Details Date Type Department Care Team (Latest Contact Info) Description 05/24/2023 3:08 PM EDT - 05/24/2023 11:59 PM EDT [place] [address] Tiburcio Garcia MD [address] [place] [address] Discharge Disposition: Home Social History Tobacco Use [...] Sig Dispensed Refills Start Date End Date Trintellix 20 mg tabletIndications:Mode rate episode of recurrent major depressive disorder TAKE ONE TABLET BY MOUTH EVERY DAY 90 tablet 3 05/16/2023 Blood-Glucose Meter MiscIndications:Type 2 diabetes mellitus without complication, unspecified whether intermediate accountant insulin use 1 kit by [facility].(Non-Drug; Combo Route) route 4 times daily. Prefers [...] Pad, Liner, Disp Pad 1 each by [facility].(Non-Drug; Combo Route) route every 4 hours as needed (for incontinence). 200 each 11 10/03/2019 Trulicity 0.75 mg/0.5 mL Pen InjectorIndications:Ty pe 2 diabetes mellitus without complication, unspecified whether residential insulin use INJECT 0.75MG UNDER THE SKIN ONCE WEEKLY 2 mL 1 05/16/2023 07/14/2023 lisinopriL (Zestril) 40 mg tabletIndications:Esse ntial hypertension TAKE ONE TABLET BY MOUTH EVERY DAY 90 tablet 3 05/16/2023 06/03/2024 pramipexole (Mirapex) 0.125 mg tabletIndications:Rest less leg TAKE TWO TABLETS BY MOUTH NIGHTLY 180 tablet 1 05/10/2023 08/14/2023 ondansetron ODT (Zofran-ODT) 4 mg disintegrating tabletIndications:Naus ea without vomiting DISSOLVE ONE TABLET ON THE TONGUE EVERY 8 HOURS NEEDED FOR NAUSEA 20 tablet 05/05/2023 06/22/2023 blood sugar diagnostic strips StripIndications:Type 2 diabetes mellitus without complication, unspecified whether intermediate accountant insulin use 1 strip by Other route [...] mouth daily. 90 tablet 3 12/28/2022 10/26/2023 metFORMIN (Glucophage) 1,000 mg TabletIndications:Type 2 diabetes mellitus without complication, without long-term current use of insulin Take 1 tablet by mouth 2 times daily (with meals). 90 tablet 3 12/07/2022 08/07/2023 cyclobenzaprine (Flexeril) 5 mg Tablet Take 1 tablet by mouth nightly as needed for Muscle spasms. 20 tablet 10/17/2022 08/14/2023 hydroCHLOROthiazide (Hydrodiuril) 25 mg TabletIndications:Esse ntial hypertension Take 1 tablet by mouth daily. 90 tablet 3 05/30/2022 08/07/2023 omeprazole (PriLOSEC) 40 mg Capsule, Delayed Release(E.C.)Indicatio ns:Gastroesophageal reflux disease without esophagitis Take 1 capsule by mouth daily. 90 capsule 3 05/30/2022 06/14/2023 ipratropium-albuterol (DUONEB) 0.5 mg-3 mg(2.5 mg base)/3 mL Solution for Nebulization INHALE THE CONTENTS OF 1 VIAL BY NEBULIZATION EVERY 4 HOURS NEEDED 180 mL 5 11/27/2019 12/16/2023 documented as of this encounter Plan of Treatment Upcoming Encounters Date Type Department Care Team (Late st Contact Info) Description 09/05/2024 9:00 AM EDT Office Visit Internal Medicine at [address] [address] Gema Oliveira, [facility] GENERAL [place] [address] documented as of this encounter Procedures Procedure Name Priority Date/Time Associated Diagnosis Comments MRI HIP LEFT WO CONTRAST Routine 05/24/2023 5:56 PM EDT Left hip pain documented in this encounter Results * MRI Hip wo Contrast Left (Generic) (05/24/2023 5:56 PM EDT) Anatomical Region Laterality Modality Hip Left Magnetic Resonan ce Impressions 05/25/2023 4:00 PM EDT 1. 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 2. ??Tendinosis of left gluteus minimus. I have personally reviewed the image(s) and the resident's interpretation and agree with the findings, Tammi Sunshine MD at 05/25/2023 4:00 PM Thank you for letting us participate in the care of this patient. ??If you are a health care provider and have any questions regarding this report, please contact the number below. ??For patients who have questions please contact the health child care attendant school that requested your imaging first. ? Narrative 05/25/2023 4:00 PM EDT EXAMINATION: MRI HIP WO CONTRAST LEFT (GENERIC) CLINICAL HISTORY: left hip pain TECHNIQUE: Noncontrast MRI of the left hip was performed using axial oblique, coronal and sagittal PD FS sequences. Full pelvis [id number] axial T1, coronal T1 and STIR sequences are provided. COMPARISON: CT bilateral sacroiliac joint injection 03/21/2023 CT chest abdomen and pelvis 12/20/2019 FINDINGS: Bone: Intact with normal marrow signal. ?? Cartilage: Left: Acetabular: Diffuse thinning without focal [...] adenopathy, solid or cystic soft tissue mass. Procedure Note Tammi Sunshine MD - 05/25/2023 EXAMINATION: MRI HIP WO CONTRAST LEFT (GENERIC) CLINICAL HISTORY: left hip pain TECHNIQUE: Noncontrast MRI of the left hip was performed using axialoblique, coronal and sagittal PD FS sequences. Full pelvis [id number] axialT1, coronal T1 and STIR sequences are provided. COMPARISON: CT bilateral sacroiliac joint injection 03/21/2023 CT chest abdomen and pelvis 12/20/2019 FINDINGS: Bone: Intact with normal marrow signal. Cartilage: Left: Acetabular: Diffuse thinning without focal defect. Femoral: Diffuse thinning without focal defect. Right: Limited evaluation. Symmetric appearance with diffuse cartilagethinning. Effusion: Trace. Labrum: Left: Anterior: Tear with linear fluid signal extending across the labralchondral junction (series 8, image 11). Anterior-superior: Labral chondral junction tear extending from theanterior aspect (series 7, image 24 is present. Posterior-superior: Intact. Posterior: Intact. Tendons: Heterogeneous signal of the gluteus minimus muscle and tendon proximal tothe lateral greater trochanter insertion site with associated superficialsoft tissue edema (series 8, image 17). Other tendons are intact. Muscle: Bulk and signal are otherwise normal and symmetric. Neurovascular: Symmetric sciatic nerve and bilateral femoralneurovascular bundle. Pelvis: Spacing and alignment are preserved at the sacroiliac joints andpubic symphysis. No free fluid, adenopathy, solid or cystic soft tissue mass. IMPRESSION 1. Degeneration of the left anterior anterosuperior labrum with mildbilateral hip osteoarthropathy. 2. Tendinosis of left gluteus minimus. I have personally reviewed the image(s) and the resident's interpretationand agree with the findings, Tammi Sunshine MD at 05/25/2023 4:00 PM Thank you for letting us participate in the care of this patient. If youare a health care provider and have any questions regarding this report,please contact the number below. For patients who have questions please contactthe health child care attendant school that requested your imaging first. Tiburcio Garcia MD IMG MRI ORDERABLES documented in this encounter Visit Diagnoses Not on filedocumented in this encounter Care Teams Kayaking Instructor Relationship Specialty Start Date End Date Gema Oliveira DO [facility] GENERAL [place] [address] PCP - General General Internal Medicine 05/17/23 documented as of this encounter
--- OUTSIDE RECORDS SUMMARY | 2024-07-12 00:28 | XMS_ITS | Encounter Summary ---
[place] [address] Care Team Providers Care Executive Housekeeper Name Role Phone Gema Oliveira DO Primary Care Provider [phone] Reason for Referral * Surgical (Routine) - Closed Specialty Diagnoses / Procedures Referred By Contac t Referred To Contact Neurosurgery Diagnoses Lumbar back pain Gema Oliveira [facility] [place] [address] [facility] [address] [place] [phone] Referral ID Status Reason Start Date Expiration Date V isits Requested Visits Authorized [id number] Closed Consult, Test & Treat 08/14/2023 08/13/2024 1 1 * Psychiatric (Routine) - Closed Specialty Diagnoses / Procedures Referred By Contac t Referred To Contact Psychiatry Diagnoses Anxiety Gema Oliveira [facility] [place] [address] [facility] [address] [place] [phone] Referral ID Status Reason Start Date Expiration Date V isits Requested Visits Authorized [id number] Closed Specialty Service Requested 08/14/2023 08/13/2024 1 1 Reason for Visit * Reason Comments Follow-up No acute concerns, c heck A1C? Encounter Details Date Type Department Care Team (Carlos shelley Contact Info) Description 08/14/2023 9:30 AM EDT Office Visit Internal Medicine at [facility] [address] [id number] Gema Oliveira, [facility] [place] [address] Type 2 diabetes mellitus without complication, without long-term current use of insulin; Restless leg; Anxiety; Lumbar back pain Social History Tobacco Use [...] Sign Reading Time Taken Comments Blood Pressure 148/91 08/14/2023 9:27 AM EDT Pulse 109 08/14/2023 9:27 AM EDT Temperature 36.2 ??C (97.2 ??F) 08/14/2023 9:27 AM ED T Respiratory Rate 18 08/14/2023 9:27 AM EDT Oxygen Saturation 98% 08/14/2023 9:27 AM EDT Inhaled Oxygen Concentration - - Weight 122 kg (269 lb) 08/14/2023 9:27 AM EDT Height 175.3 cm (5' 9.02) 08/14/2023 9:27 AM ED T Body Mass Index 39.71 08/14/2023 9:27 AM EDT documented in this encounter Patient Instructions * Patient Instructions* Gema Oliveira DO - 08/14/2023 9:30 AM EDT -Start Buspar: 5 mg twice daily, can increase after 3 days to 5 mg three times daily if tolerating -Keep BP log at home, monitor three times a week, feet flat, wait a few minutes, then check and bring log to next visit * Attachments The following attachments cannot be sent through Care Everywhere. * Diet: DASH (Urdu) documented in this encounter Progress Notes * Gema Oliveira DO - 08/14/2023 9:30 AM EDT Images from the original note were not included. Subjective: Patient ID: Tracie Layton is a 52 y.o. female. Chief Complaint Patient presents with Follow-up No acute concerns, check A1C? PMH depression, obesity, HTN, DM2, GERD, PTSD, ADD, agoraphobia, Vit D deficiency, OA spine, alcohol abuse, obstructive lung disease, smoking, pulmonary nodules, anxiety, pelvic pain s/p LAVH, occipital neuralgia, hx cervical cancer (?LEEP in [place] 2001, Last pap smear 2020). Restless Leg -started years ago -previously was higher and then stopped taking -re-started a few years ago at lower dose; wants to go to higher dose -during the day legs get restless ; long time -doesn't get in way of activities but is irritating T2DM -Metformin 2000 mg and Trulicity 0.75 mg weekly -Zofran use high--sometimes vomiting; takes once daily in morning (with good effect though) -Has diarrhea which she attributes to Metformin -A1c today 5.9% (from 6.2% 3 mo ago) #Smoking -quit for 2.5 months but brother in law suddenly and set back -will start chantix again #Chronic lower back pain -Nsg injections 03/21/23 SI joints, improved on right only) -interferes with exercise as well as daily activities (grocery store) #depression/anxiety/ptsd -Trintellix 20 mg daily; not working as well as it was -therapy is my granchildren (1 month, 3 years, 7 years, 15 years) -had a counselor in the past; hard to reach out to people Palpitations Sinus Tachycardia HTN -Currently on HCTZ 25 mg, lisinopril 40 mg and metoprolol succinate 25 mg -Hasn't checked bp at home in a while but usually high at home too (140-150/90+) -Stress levels sometimes through the roof; more related to anxiety -Exercise: chronic bilateral hip pain/spinal stenosis; discussed swimming -no soda or coffee, has cut salt out Prior therapies: -Carvedilol --> discontinued due to nausea and vomiting -Spironolactone --> patient self discontinued due to nausea Nausea/Vomiting -started 6 years ago -in limbo at that time; trying to figure out where she was going to live -mildly less stress, but not a lot less 08/07/2023 9:58 AM Behavioral Health Responses (QBHI) Total FÉLIX-7 15 (Severe Anxiety) Objective: BP (!) 148/91 (BP Location (NBP): Left arm, Patient Position: Sitting, BP Cuff Sizes: Large Adult (32-43 cm)) Pulse (!) 109 Temp 36.2 ??C (97.2 ??F) (Temporal) Resp 18 Ht 175.3 cm (5' 9.02) Wt 122 kg (269 lb) LMP 10/06/2019 (Exact Date) SpO2 98% BMI 39.71 kg/m?? Wt Readings from Last 3 Encounters: 08/14/23 122 kg (269 lb) 05/22/23 121.8 kg (268 lb 8 oz) 12/07/22 127.9 kg (282 lb) General: Patient pleasant, appears mildly anxious HENT: MMM Cardio: tachycardic, no m/r/g Pulm: CTA b/l, no wheezes/rhonchi/rales GI: Soft, non-tender MSK: No edema Back: Mild sacrococcygeal tenderness. No paraspinal hypertonicity. Neg straight leg raise test, [facility]. Neuro: Alert and oriented x3. No focal deficits. Assessment and Plan: #Restless Leg Syndrome -Incr Mirapex to 3 tablets nightly from 2x 0.125 mg tablets #DM2 -Taper down Metformin to once daily -C/w Trulicity and Zofran #HTN -Consider swimming -DASH diet -Will keep log at home -f/u 3 months #Anxiety -[facility] referral -Start Buspar: 5 mg BID, can increase after 3 days to 5 mg TID if tolerating #Sacral pain -Referral to nsg F/up 3 months (HTN med change, DM2 monitoring, anxiety level, repeat EKG) * Froilan Crane MD - 08/14/2023 9:30 AM EDT The case was discussed in person at the time of the visit or immediately after the visit. The assessment and plan were formulated in discussion with me and I agree with them as documented. I have reviewed the history, physical exam, assessment and plan with the resident. Major issues discussed today: Pt presenting for f/u RLS: on mirapex with lower dose than prior and lower dose not controlling DM: on trulicity and metformin with A1c improved to 5.9% Chronic low back pain: SI injections helped R side but not L side. Hoping for 2nd opinion. Anxiety: On trintellix but not as controlled as would like HTN: on hctz 25, lisinopril 40, and toprol 25 Plan: Chronic low back pain Refer to spine RLS Increase mirapex to 3 tabs nightly DM Decrease metformin to 1000mg daily HTN Monitor at home DASH diet F/u 3 mth Anxiety BuSpar 5 mg bid documented in this encounter Plan of Treatment Upcoming Encounters Date Type Department Care Team (Late st Contact Info) Description 09/05/2024 9:00 AM EDT Office Visit Internal Medicine at [address] [address] [facility] [place] [address] Scheduled Referrals Name Type Priority Associated Diagnoses Order Schedule Referral to Behavioral Health Outpatient Referral Routine Anxiety Ordered: 08/14/2023 Referral to Neurosurgery Outpatient Referral Routine Lumbar back pain Ordered: 08/14/2023 documented as of this encounter Procedures Procedure Name Priority Date/Time Associated Diagnosis Comments POCT GLYCATED HEMOGLOBIN, TOTAL (HA1C) Routine 08/14/2023 10:14 AM EDT Type 2 diabetes mellitus without complication, without long-term current use of insulin documented in this encounter Results * (ABNORMAL) POCT glycated hemoglobin, total (HA1C) (08/14/2023 10:14 AM EDT) Hemoglobin A1C, POC 5.9(A) 4.3 - 5.6 % 08/14/2023 10:1 4 AM EDT Froilan Crane MD POINT OF CARE TEST O RDERABLES documented in this encounter Visit Diagnoses Diagnosis Type 2 diabetes mellitus without complication, without long-term current use of insulin Restless leg Restless legs syndrome (RLS) Anxiety Anxiety state, unspecified Lumbar back pain Lumbago documented in this encounter Care Teams Executive Housekeeper Relationship Specialty Start Date End Date Gema Oliveira DO [facility] [place] [address] PCP - General General Internal Medicine 05/17/23 documented as of this encounter
--- OUTSIDE RECORDS SUMMARY | 2024-07-12 00:28 | XMS_ITS | Encounter Summary ---
Author Organization [facility] Address [facility] [place] [address] Care Team Providers Care National Sales Director Name Role Phone Gema Oliveira DO Primary Care Provider [phone] Encounter Details Date Type Department Care Team (Latest Contact Info) Description 08/07/2023 Travel Social History Tobacco Use Types Packs/Day [...] long term (including now)? Patient refused 02/10/2023 Sex and Gender Information Value Date Recorded Sex Assigned at Not on file Gender Identity Not on file Sexual Orientation Not on file documented as of this encounter Plan of Treatment Upcoming Encounters Date Type Department Care Team (Late st Contact Info) Description 09/05/2024 9:00 AM EDT Office Visit Internal Medicine at [address] [address] Gema Oliveira DO [facility] [address] [facility] [address] documented as of this encounter Visit Diagnoses Not on filedocumented in this encounter Care Teams National Sales Director Relationship Specialty Start Date End Date Gema Oliveira DO [facility] [place] [place] [address] PCP - General General Internal Medicine 05/17/23 documented as of this encounter
--- OUTSIDE RECORDS SUMMARY | 2024-07-12 00:28 | XMS_ITS | Encounter Summary ---
Author Organization Replaced By [facility] Address [facility] [place] [address] Care Team Providers Care Linseed Oil Temperer Name Role Phone Tasneem Galdamez MD Primary Care Provider [phone] Reason for Referral * Consultation (Routine) - Canceled Specialty Diagnoses / Procedures Referred By María Elena mcdaniel Referred To Contact Thoracic Surgery Diagnoses Nicotine dependence, cigarettes, uncomplicated Encounter for smoking cessation counseling Tasneem Galdamez MD [facility] [place] [address] [facility] [place] [address] Referral ID Status Reason Start Date Expiration Date V isits Requested Visits Authorized [id number] Canceled Consult, Test & Treat 03/22/2023 03/21/2024 1 1 Reason for Visit * Reason Comments Follow-up Encounter Details Date Type Department Care Team (Late st Contact Info) Description 03/22/2023 11:00 AM EDT TH Visit (TeleHealth) Internal Medicine at [address] [address] Tasneem Galdamez MD [facility] [place] [address] COVID-19; Type 2 diabetes mellitus without complication, unspecified whether detention insulin use; Nausea without vomiting; Nicotine dependence, cigarettes, uncomplicated; Encounter for smoking cessation counseling Social History Tobacco Use Types Packs/Day Years [...] Progress Notes * Tasneem Galdamez MD - 03/22/2023 11:00 AM EDT TeleHealth Based Clinical Care Note Tracie Layton verbally consented to conduct this clinical encounter by telephone or video/telehealth. she acknowledges that her insurance may be billed for the care provided, similar to an in person appointment. Tracie Layton is in the following location at the time of the phone call: [place], [place] Reason for visit/chief complaint: Chief Complaint Patient presents with ??? Follow-up Current Medications (which were reviewed during the visit): Medications 02/10/231821 Medication Sig Taking? Ventolin HFA 90 mcg/actuation HFA Aerosol Inhaler INHALE TWO PUFFS INTO THE LUNGS EVERY 4 HOURS NEEDED FOR WHEEZING varenicline (Chantix) 1 mg tablet Take 1 tablet by mouth 2 times daily (with meals). This medication should be taken in the middle of your largest meal(s) with a full glass of water. DO NOT TAKE ON AN EMPTY STOMACH. Indications: stop smoking semaglutide (Ozempic) 0.25 mg or 0.5 mg(2 mg/1.5 mL) Pen Injector Inject 0.25 mg subcutaneously once a week for 30 days, THEN 0.5 mg once a week for 30 days. Indications: type 2 diabetes mellitus metoprolol succinate XL (Toprol-XL) 25 mg Tablet Sustained Release 24 hr Take 1 tablet by mouth daily. Blood-Glucose Meter Misc 1 kit by Misc.(Non-Drug; Combo Route) route 4 times daily. Prefers one touch Ultra, but make sure strips ordered match machine dispensed blood sugar diagnostic strips Strip Use as instructed Prefers one touch Ultra, but make sure stripsordered match machine dispensed metFORMIN (Glucophage) 1,000 mg [...] Pad, Liner, Disp Pad 1 each by [facility]Non-Drug; Combo Route) route every 4 hours as needed (for incontinence). Patient Reported: There were no vitals filed for this visit. General: Well-appearing, speaking in full sentences Wt Readings from Last 3 Encounters: 12/07/22 127.9 kg (282 lb) 10/27/22 128.4 kg (283 lb) 08/26/22 127.8 kg (281 lb 12.8 oz) Documentation of content of discussion: Tracie tested positive for COIVD this morning after a known sick contact exposure. She has been wheezing more, using her albuterol inhaler with good effect. Is able to ambulate around the house with stopping due to dyspnea. No fevers. Mild cough and nasal congestion with clear to yellow sputum. She is not interested in Paxlovid. T2DM - Currently only on Metformin 2000mg alone. - Last A1C was 7.0% 02/15/2023 - At last visit, had re-started low dose Ozempic; she took it for 3 weeks but stopped due to nauseaand vomiting. Since being off (~2 weeks) no longer having GI symptoms. - She was losing weight and seeing improvement in her BGs at home while on Ozempic, so she is interested in trying another medication similar. - Does note that she's had very high blood sugars yesterday and today following bilateral SI joint steroid injections, but has been down trending. Typically, home BG checks ~140s in AM and 150s in PM. Prior medications: - Victoza -- stopped due to GI upset - Jardiance - stopped due to GI upset Current Smoker - Currently 1 pack/day - Previously done well with Chantix - Not yet restarted the Chantix, but has the script - Discussed the importance of cutting back and eventually quitting. She is motivated to do so. - She is open to a referral for a quit program. Chronic low back pain - Had appointments at [facility], but difficulty with appointments due to agoraphobia - 12/2022 MRI lumbar spine with interval worsening of degenerative disc disease at L5-S1 with possible impingement of left S1 nerve root. Marked interval worsening of bilateral facet arthropathy at L4-5 with worsening spinal stenosis. - Saw neurosurgery 01/2023, they did not feel she had symptoms from the above S1 impingement. Bi recommended bilateral CT guided SI joint injections for diagnosis purposes. - Injections done 03/21/2023; has had improvement on the right, but worsened pain on the left. No radicular pain. Will follow up with neurosurg for next steps. ?? Assessment and Plan: 1. COVID-19 Tested positive for covid this AM. Briefly discussed Paxlovid, but patient declines. She will be incontact if symptoms worsen. 2. Type 2 diabetes mellitus without complication, unspecified whether detention insulin use 3. Nausea without vomiting A1C had improved most recently down to 7.0% but this was in the setting of Ozempic, which she is now off due to GI intolerance. She would greatly benefit from a GLP-1 for weight loss and diabetes reasons. She is opening to trying another medication, so will start Trulicity 0.75mg weekly and plan tostay at that dose for at least 1 month with a very slow up titration. Additionally, will add PRN Zofran as a bridge onto the medication. - dulaglutide (Trulicity) 0.75 mg/0.5 mL Pen Injector; Inject 0.5 mLs subcutaneously once a week. Indications: type 2 diabetes mellitus Dispense: 2 mL; Refill: 1 4. Nicotine dependence, cigarettes, uncomplicated 5. Encounter for smoking cessation counseling Tracie is motivated to stop smoking. We discussed today the benefits of stopping. She has done well with Chantix in the past, and currently has a script of the 0.5mg, but is waiting for insurance to approve the 1mg tabs. She is open to starting a smoking cessation program as well. - Referral to Smoking Cessation Program Follow Up: April Total time spent associated with the visit including patient discussion and pre/post visit chart activities: 30 minutes * Martínez Cason MD - 03/22/2023 11:00 AM EDT The case was discussed in person at the time of the visit or immediately after the visit. The assessment and plan were formulated in discussion with me and I agree with them as documented. I have reviewed the history, physical exam, assessment and plan with the resident. Major issues discussed today: 52 y/o F here for f/u of DM2. Tested positive for COVID this morning after exposure. Symptoms minimal thus far. Not interested inPaxlovid. DM2 on metformin 1000mg BID. Recent A1c 7% on Ozempic but has since stopped due to GI symptoms. Interested in trying Trulicity as her brother has had success. Current smoker - interested in quitting with Chantix - refer to smoking cessation program as well Chronic LBP with spinal stenosis on recent MRI. Follows with [facility] s/p recent SI joint injections. PLAN: - trial trulicity; will offer PRN luciefran in hopes that she can tolerate documented in this encounter Plan of Treatment Upcoming Encounters Date Type Department Care Team (Late st Contact Info) Description 09/05/2024 9:00 AM EDT Office Visit Internal Medicine at [id number] [facility] [address] Scheduled Referrals Name Type Priority Associated Diagnoses Orde r Schedule Referral to Smoking Cessation Program Outpatient Referral Routine Nicotine dependence, cigarettes, uncomplicated Encounter for smoking cessation counseling Ordered: 03/22/2023 documented as of this encounter Visit Diagnoses Diagnosis COVID-19 Type 2 diabetes mellitus without complication, unspecified whether detention insulin use Nausea without vomiting Nicotine dependence, cigarettes, uncomplicated Encounter for smoking cessation counseling Counseling on substance use and abuse documented in this encounter Care Teams Linseed Oil Temperer Relationship Specialty Start Date End Date Tasneem Galdamez MD [facility] [place] [address] PCP - General General Internal Medicine 05/20/2004/21 documented as of this encounter
--- OUTSIDE RECORDS SUMMARY | 2024-07-12 00:28 | XMS_ITS | Encounter Summary ---
Author Organization [facility] Address [facility] [place] [address] Care Team Providers Care Tabulating Machine Mechanic Name Role Phone Tasneem Galdamez MD Primary Care Provider [phone] Reason for Visit * Reason Comments Medication Refill Encounter Details Date Type Department Care Team (Late st Contact Info) Description 04/26/2023 Refill Internal Medicine at [address] [address] Tasneem Galdamez MD [facility] [address] Nausea without vomiting Social History Tobacco Use [...] Telephone Encounter - Archana Leon RN - 04/27/2023 6:39 AM EDT Prescription Renewal Request Name: Tracie Layton : 1970 Prescription(s) Requested: Requested Prescriptions Pending Prescriptions Disp Refills ondansetron ODT (Zofran-ODT) 4 mg disintegrating tablet [Pharmacy Med Name: ONDANSETRON ODT 4 MG TABLET] 20 tablet 0 Sig: DISSOLVE ONE TABLET ON TONGUE EVERY 8 HOURS NEEDED FOR NAUSEA Date of Encounter last in This Dept (If need an appointment send to secretaries to schedule): 03/22/23 for with PCP Next Encounter in This Dept: 05/01/2023 Date of Last Refill (for each medication): 04/19/23 #20/0 Medication category requirements (labs etc): none Status of request: Pended Allergies Allergen Reactions Bactrim [Sulfamethoxazole-Trimethoprim] Anaphylaxis Trimethoprim Anaphylaxis Aleve [Naproxen Sodium] Rash Per neuro team, patient has tolerated ketorolac in the past Keflex [Cephalexin] Other (See Comments) Racing heart Meloxicam Nausea Only Amlodipine Nausea And Vomiting Archana Leon, V[facility] 04/27/23 6:39 AM documented in this encounter Plan of Treatment Upcoming Encounters Date Type Department Care Team (Late st Contact Info) Description 09/05/2024 9:00 AM EDT Office Visit Internal Medicine at [address] [address] Gema Oliveira DO [facility] [place] [address] documented as of this encounter Visit Diagnoses Diagnosis Nausea without vomiting documented in this encounter Care Teams Tabulating Machine Mechanic Relationship Specialty Start Date End Date Tasneem Galdamez MD [facility] [address] [address] PCP - General General Internal Medicine 05/20/20 6/2 06/11 documented as of this encounter
--- OUTSIDE RECORDS SUMMARY | 2024-07-12 00:28 | XMS_ITS | Encounter Summary ---
Author Organization [facility] Address [facility] [place] [address] Care Team Providers Care Jewel Bearing Maker Name Role Phone Tasneem Galdamez MD Primary Care Provider [phone] Reason for Visit * Reason Comments Medication Refill Encounter Details Date Type Department Care Team (Late st Contact Info) Description 04/18/2023 Refill Internal Medicine at [address] [address] Tasneem Galdamez MD [facility] [place] [address] Nausea without vomiting Social History Tobacco Use [...] encounter Miscellaneous Notes * Telephone Encounter - Isabela Flores, [facility] - 04/19/2023 10:05 AM EDT Prescription Renewal Request Name: Tracie Layton : 1970 Prescription(s) Requested: Requested Prescriptions Pending Prescriptions Disp Refills ??? ondansetron ODT (Zofran-ODT) 4 mg disintegrating tablet [Pharmacy Med Name: ONDANSETRON ODT 4 MG TABLET] 20 tablet 0 Sig: DISSOLVE ONE TABLET ON TONGUE EVERY 8 HOURS NEEDED FOR NAUSEA Date of Encounter last in This Dept (If need an appointment send to secretaries to schedule): 03/22/2023 Rudolph Cason Next Encounter in This Dept: 05/01/2023 Date of Last Refill (for each medication): 04/10/2023 #20 with 0 Medication category requirements (labs etc): Status of request: Pended Allergies Allergen Reactions ??? Bactrim [Sulfamethoxazole-Trimethoprim] Anaphylaxis ??? Trimethoprim Anaphylaxis ??? Aleve [Naproxen Sodium] Rash Per neuro team, patient has tolerated ketorolac in the past ??? Keflex [Cephalexin] Other (See Comments) Racing heart ??? Meloxicam Nausea Only ??? Amlodipine Nausea And Vomiting MARIBEL Benites 04/19/23 10:05 AM documented in this encounter Plan of Treatment Upcoming Encounters Date Type Department Care Team (Late st Contact Info) Description 09/05/2024 9:00 AM EDT Office Visit Internal Medicine at [address] [address] Gema Oliveira, [facility] [place] [address] documented as of this encounter Visit Diagnoses Diagnosis Nausea without vomiting documented in this encounter Care Teams Jewel Bearing Maker Relationship Specialty Start Date End Date Tasneem Galdamez MD [facility] [address] [address] PCP - General General Internal Medicine 05/20/2004/21 documented as of this encounter
--- OUTSIDE RECORDS SUMMARY | 2024-07-12 00:28 | XMS_ITS | Encounter Summary ---
Author Organization [facility] [place] [address] Care Team Providers Care Supervisor Sanding Name Role Phone Tasneem Galdamez MD Primary Care Provider [phone] Reason for Visit * Reason Onset Date Comments Nicotine Dependence 03/31/2023 Encounter Details Date Type Department Care Team (Late st Contact Info) Description 03/31/2023 [place] [address] Trisha Nichols Nicotine Dependence Social History Tobacco Use Types Packs/Day Years [...] place to sleep or slept in a correction (including now)? Patient refused 02/10/2023 Sex and Gender Information Value Date Recorded Sex Assigned at Not on file Gender Identity Not on file Sexual Orientation Not on file documented as of this encounter Plan of Treatment Upcoming Encounters Date Type Department Care Team (Late st Contact Info) Description 09/05/2024 9:00 AM EDT Office Visit Internal Medicine at [place] [id number] Gema Oliveira DO [facility] [address] [place] [address] documented as of this encounter Visit Diagnoses Not on filedocumented in this encounter Care Teams Supervisor Sanding Relationship Specialty Start Date End Date Tasneem Galdamez MD [facility] [place] [address] PCP - General General Internal Medicine 05/20/2004/21 documented as of this encounter
--- OUTSIDE RECORDS SUMMARY | 2024-07-12 00:28 | XMS_ITS | Encounter Summary ---
[place] [address] Care Team Providers Care Pocket Flap Creasing Machine Operator Name Role Phone Gema Oliveira DO Primary Care Provider [phone] Reason for Referral * Diagnostic Test (Routine) - Closed Specialty Diagnoses / Procedures Referred By Contac t Referred To Contact Radiology Diagnoses Left hip pain Procedures MRI Hip wo Contrast Left (Generic) MRI Hip wwo Contrast Left Tiburcio Garcia MD [address] [place] [address] [place] [address] Referral ID Status Reason Start Date Expiration Date V isits Requested Visits Authorized [id number] Closed Specialty Service Requested 04/07/2023 10/08/2024 1 1 Reason for Visit * Diagnostic Test (Routine) - Closed Specialty Diagnoses / Procedures Referred By Contac t Referred To Contact Radiology Diagnoses Left hip pain Procedures MRI Hip wo Contrast Left (Generic) MRI Hip wwo Contrast Left Tiburcio Garcia MD [address] [place] [address] [place] [address] Referral ID Status Reason Start Date Expiration Date V isits Requested Visits Authorized [id number] Closed Specialty Service Requested 04/07/2023 10/08/2024 1 1 Encounter Details Date Type Department Care Team (Latest Contact Info) Description 05/24/2023 3:08 PM EDT - 05/24/2023 11:59 PM EDT Hospital [place] [address] Tiburcio Garcia MD [address] [place] [id number] Left hip pain Discharge Disposition: Home Social History Tobacco Use [...] the mortgage or rent on time? No 03/24/20 23 [address] Places Lived in the [...] 2 diabetes mellitus without complication, unspecified whether alf insulin use 1 kit by [employer].(Non-Drug; Combo Route) route 4 times daily. Prefers [...] Pad, Liner, Disp Pad 1 each by [employer].(Non-Drug; Combo Route) route every 4 hours as needed (for incontinence). 200 each 11 10/03/2019 Trulicity 0.75 mg/0.5 mL Pen InjectorIndications:Ty pe 2 diabetes mellitus without complication, unspecified whether ocean transportation intermediary insulin use INJECT 0.75MG UNDER THE SKIN [...] 2 diabetes mellitus without complication, unspecified whether alf insulin use 1 strip by Other route [...] 11/27/2019 12/16/2023 documented as of this encounter Progress Notes * Damon Gaona, VIVEK - 05/19/2023 2:19 PM EDT MRI PRE-SEDATION ASSESSMENT NOTE NAME: Tracie Layton AGE: 52 y.o. : 1970 [address] [facility] [address] Female [id number] (home) Telephone Information: Gemaanand Oliveira, None Allergies Allergen Reactions Bactrim [Sulfamethoxazole-Trimethoprim] Anaphylaxis Trimethoprim Anaphylaxis Aleve [Naproxen Sodium] Rash Per neuro team, patient has tolerated ketorolac in the past Keflex [Cephalexin] Other (See Comments) Racing heart Meloxicam Nausea Only Amlodipine Nausea And Vomiting Date/Time of call: May 17, 2023/5:03 PM/ SCHEDULED SCAN: MRI HIP LEFT WO CONTRAST [[id number]] Order Questions Answers Clinical information / sandhu questions for radiologist: left hip pain Where will study be performed? [facility] Radiology [120] Is the patient ? Unknown HEIGHT: WEIGHT: Have you had a PREVIOUS MRI SCAN? Yes Are you claustrophobic or anxious in the scanner? Yes Claustrophobic CAN YOU LAY FLAT? Yes Do you have trouble breathing when lying flat? no DO YOU HAVE ANY INVOLUNTARY MOVEMENTS? no DO YOU TAKE PAIN MEDICATION ON A DAILY BASIS? no PLAN: 1 mg Ativan X 2 You must have a route sales driver present when you check in. This patient has been informed that they require a route sales driver to drive them home after this procedure. In the absence of a route sales driver, IR will not be able tosedate for your scan. Pt verbalized understanding of these instructions during the pre-procedure education via phone. Yes Name of route sales driver: Xu Segal Phone number: [phone] PRIOR SCAN DATE/S SEDATION TYPE SUCCESSFUL 06/17/05 MRI Unknown 09/19/14 MRI None, Pt came late. Tolerated very well. 11/23/17 MRI Ativan 1 mgs po x 2 tolerated well 01/05/23 MRI L Spine wo Ativan 1mg po x 2 yes 05/24/23 MRI Hip wo Ativan 1mg Po x 1 Revised 05/16/2023 documented in this encounter Plan of Treatment Upcoming Encounters Date Type Department Care Team (Late st Contact Info) Description 09/05/2024 9:00 AM EDT Office Visit Internal Medicine at [address] [address] Gema Oliveira, [facility] [place] [address] documented as of this encounter Procedures Procedure [...] questions please contact the health managed care coordinator that requested your imaging first. ? Narrative 05/25/2023 4:00 PM EDT EXAMINATION: MRI HIP WO CONTRAST LEFT (GENERIC) CLINICAL HISTORY: left hip pain TECHNIQUE: Noncontrast MRI of the left hip was performed using axial oblique, coronal and sagittal PD FS sequences. Full pelvis [id number] axial T1, coronal T1 and STIR sequences [...] and sagittal PD FS sequences. Full pelvis [id number] axialT1, coronal T1 and STIR sequences are [...] have questions please contactthe health managed care coordinator that requested your imaging first. Electronically signed by: Tammi Sunshine MD, [facility]([phone]), at 05/25/2023 4:00 PM Tiburcio Garcia MD IMG MRI ORDERABLES documented in this encounter Visit Diagnoses Diagnosis Left hip pain Pain in joint, pelvic region and thigh documented in this encounter Administered Medications Inactive Administered Medications - up to 3 most recent administrations Medication Order MAR Action Action Date Dose Rate Site LORazepam (Ativan) tablet 1 mg 1 mg, Oral, EVERY 30 MIN PRN, 2 doses, Starting on 05/24/23 at 0834, Until Denita 05/25/23 at 0433, Anxiety, Minimal Sedation per Department of Radiology Adult Minimal Sedation Guidelines: Give 50 minutes prior to scan., Angio/IR (Day of Procedure), Routine Given 05/24/2023 3:17 PM EDT 1 mg documented in this encounter Care Teams Pocket Flap Creasing Machine Operator Relationship Specialty Start Date End Date Gema Oliveira DO [facility] [address] [place] [address] PCP - General General Internal Medicine 05/17/23 documented as of this encounter
--- OUTSIDE RECORDS SUMMARY | 2024-07-12 00:28 | XMS_ITS | Encounter Summary ---
Author Organization [facility] Address [facility] [place] [address] Care Team Providers Care Professor Of Special Education Name Role Phone Tasneem Galdamez MD Primary Care Provider [phone] Reason for Visit * Reason Comments Medication Refill Encounter Details Date Type Department Care Team (Late st Contact Info) Description 03/19/2023 Refill Internal Medicine at [facility] [address] [place] [address] Tasneem Galdamez MD [facility] [place] [address] Mild intermittent asthma without complication; Obstructive lung disease (generalized) Social History Tobacco Use Types Packs/Day Years [...] Encounter - Dulce Maria Morrissey MA - 03/20/2023 2:13 PM EDT Prescription Renewal Request Name: Tracie Layton : 1970 Prescription(s) Requested: Requested Prescriptions Pending Prescriptions Disp Refills ??? Ventolin HFA 90 mcg/actuation HFA Aerosol Inhaler [Pharmacy Med Name: VENTOLIN HFA 90MCG] 18 g 3 Sig: INHALE TWO PUFFS INTO THE LUNGS EVERY 4 HOURS NEEDED FOR WHEEZING Date of Encounter last in This Dept (If need an appointment send to secretaries to schedule): 02/10/2023 Hemond Next Encounter in This Dept: 03/22/2023 Date of Last Refill (for each medication): 05/30/2022 8.5g w 3 refill Medication category requirements (labs etc): Status of request: Pended Allergies Allergen Reactions ??? Bactrim [Sulfamethoxazole-Trimethoprim] Anaphylaxis ??? Trimethoprim Anaphylaxis ??? Aleve [Naproxen Sodium] Rash Per neuro team, patient has tolerated ketorolac in the past ??? Keflex [Cephalexin] Other (See Comments) Racing heart ??? Meloxicam Nausea Only ??? Amlodipine Nausea And Vomiting Dulce Maria Morrissey MA 03/20/23 2:15 PM documented in this encounter Plan of Treatment Upcoming Encounters Date Type Department Care Team (Late st Contact Info) Description 09/05/2024 9:00 AM EDT Office Visit [place] [address] Gema Oliveira DO [facility] [address] [address] documented as of this encounter Visit Diagnoses Diagnosis Mild intermittent asthma without complication Unspecified asthma Obstructive lung disease (generalized) Chronic airway obstruction, not elsewhere classified documented in this encounter Care Teams Professor Of Special Education Relationship Specialty Start Date End Date Tasneem Galdamez MD [facility] [place] [address] PCP - General General Internal Medicine 05/20/2004/21 documented as of this encounter
--- OUTSIDE RECORDS SUMMARY | 2024-07-12 00:28 | XMS_ITS | Encounter Summary ---
Author Organization [facility] Address [facility] [place] [address] Care Team Providers Care Crew Scheduler Name Role Phone Gema Oliveira DO Primary Care Provider [phone] Reason for Visit * Reason Onset Date Comments Medication Refill 08/07/2023 Encounter Details Date Type Department Care Team (Late st Contact Info) Description 08/07/2023 Refill Internal Medicine at [address] [id number] Gema Oliveira, DO [facility] [place] [address] Nausea without vomiting Social History Tobacco Use [...] AM EDT Office Visit Internal Medicine at [place] [id number] Gema Oliveira DO [facility] [address] [address] documented as of this encounter Visit Diagnoses Diagnosis Nausea without vomiting documented in this encounter Care Teams Crew Scheduler Relationship Specialty Start Date End Date Gema Oliveira DO [facility] [place] [address] PCP - General General Internal Medicine 05/17/23 documented as of this encounter
--- OUTSIDE RECORDS SUMMARY | 2024-07-12 00:28 | XMS_ITS | Encounter Summary ---
Author Organization [facility] Address [facility] [place] [address] Care Team Providers Care Senior C Software Engineer Name Role Phone Tasneem Galdamez MD Primary Care Provider [phone] Reason for Visit * Reason Comments Follow-up Encounter Details Date Type Department Care Team (Late st Contact Info) Description 02/10/2023 11:30 AM EDT TH Visit (TeleHealth) Internal Medicine at [address] [address] Tasneem Galdamez MD [facility] [place] [address] Breast cancer screening by mammogram; Osteoarthritis of spine with radiculopathy, lumbar region; Type 2 diabetes mellitus without complication, without long-term current use of insulin; Adult BMI 40.0-44.9 kg/sq m; Nicotine dependence, cigarettes, uncomplicated; Moderate episode of recurrent major depressive disorder; PTSD (post-traumatic stress disorder); Anxiety; Hypertension, essential, benign Social History Tobacco Use Types Packs/Day Years [...] a snf (including now)? Patient refused 02/10/2023 Sex and Gender Information Value Date Recorded Sex Assigned at Not on file Gender Identity Not on file Sexual Orientation Not on file documented as of this encounter Progress Notes * Tasneem Galdamez MD - 02/10/2023 11:30 AM EDT TeleHealth Based Clinical Care Note Tracie Layton verbally consented to conduct this clinical encounter by telephone or video/telehealth. she acknowledges that her insurance may be billed for the care provided, similar to an in person appointment. Tracie Layton is in the following location at the time of the phone call: [place], [place] Reason for visit/chief complaint: Chief Complaint Patient presents with ??? Follow-up Current Medications (which were reviewed during the visit): Medications 02/10/231821 Medication Sig Taking? metoprolol succinate XL (Toprol-XL) 25 mg Tablet Sustained Release 24 hr Take 1 tablet by mouth daily. Yes Blood-Glucose Meter Misc 1 kit by [facility].(Non-Drug; Combo Route) route 4 times daily. Prefers one touch Ultra, but make sure strips ordered match machine dispensed Yes blood sugar diagnostic strips Strip Use as instructed Prefers one touch Ultra, but make sure stripsordered match machine dispensed Yes metFORMIN (Glucophage) 1,000 mg Tablet Take 1 tablet by mouth 2 times daily (with meals). Yes pramipexole (MIRAPEX) 0.125 mg Tablet Take 2 tablets by mouth nightly. Yes cyclobenzaprine (Flexeril) 5 mg Tablet Take 1 tablet by mouth nightly as needed for Muscle spasms. Yes hydroCHLOROthiazide (Hydrodiuril) 25 mg Tablet Take 1 tablet by mouth daily. Yes lisinopriL (Zestril) 40 mg Tablet Take 1 tablet by mouth daily. Yes omeprazole (PriLOSEC) 40 mg Capsule, Delayed Release(E.C.) Take 1 capsule by mouth daily. Yes Advair Diskus 100-50 mcg/dose Disk with Device Inhale 1 puff into the lungs every 12 hours. Brand name Yes vortioxetine (Trintellix) 20 mg Tablet Take 1 tablet by mouth daily. Yes ProAir HFA 90 mcg/actuation HFA Aerosol Inhaler Inhale 2 puffs into the lungs every 4 hours as needed for Wheezing. Yes diclofenac (Voltaren) 1 % Gel APPLY [...] 4 hours as needed (for incontinence). Yes varenicline (Chantix) 0.5 mg tablet Take 1 tablet by mouth daily for 3 days, THEN 1 tablet 2 times daily (with meals) for 4 days. This medication should be taken in the middle of your largest meal(s)with a full glass of water. DO NOT TAKE ON AN EMPTY STOMACH. Transition to 1 mg tablets when finished. Indications: stop smoking varenicline (Chantix) 1 mg tablet Take 1 [...] 30 days. Indications: type 2 diabetes mellitus Patient Reported: There were no vitals filed for this visit. General: Well-appearing, speaking in full sentences Wt Readings from Last 3 Encounters: 12/07/22 127.9 kg (282 lb) 10/27/22 128.4 kg (283 lb) 08/26/22 127.8 kg (281 lb 12.8 oz) Documentation of content of discussion: Palpitations Sinus Tachycardia HTN -Previously reported palpitations and flushing has resolved -Currently on HCTZ 25 mg, lisinopril 40 mg and metoprolol succinate 25 mg Prior therapies: -Carvedilol --> discontinued due to nausea and vomiting -Spironolactone --> patient self discontinued due to nausea -She does have a home wrist blood pressure cuff has previously been verified with clinic cuffs. Shereports home systolics to be between 120s and 130s. Denies any further chest pain, palpitations, chest heaviness, shortness of breath. - BMP wnl in 11/2022 -Reports significantly reduced life stressors Depression/anxiety/PTSD: -Currently doing well on Trintellix 20 mg daily -Reports her mood is doing quite well and anxiety has been low. Relates a lot of this improvement due to less life stressors T2DM - Currently only on Metformin 2000mg alone. - Last A1C was 7.5% 11/2022 - At last visit, added Ozempic 0.25 week, which she did for about 1 week. During that time she lost8 pounds. After the 1 months she did not continue due to abdominal discomfort, but was unsure if this was related to the Ozempic vs the spironolactone vs the Chantix so she stopped all three medications. -She is interested in retrying the Ozempic Prior medications: - Victoza -- stopped due to GI upset - Jardiance - stopped due to GI upset -She reports she just got her eye exam done last week in the community. Current Smoker -Currently 1 pack/day -Previously done well with Chantix, had reordered at last visit but did not continue this due to the above. Is interested in restarting this once getting more stable on the Ozempic again. Chronic low back pain - Had appointments at [facility], but difficulty with appointments due to agoraphobia [...] guided SI joint injections for diagnosis purposes. ?? Stress Incontinence - Hx of hysterectomy - Hx of bladder sling in 2015, with revision in 2017 - The surgeries intially improved symptoms, but has been having more incontinence. Mostly related to position changes, coughing or laughing. Also had some urgency - Denies blood in urine or burning. - Urogyn appointment scheduled HCM - Mammogram ordered for [facility] Assessment and Plan: 1. Breast cancer screening by mammogram - Mammo Screening Cad and Russ Bilateral; Future 2. Osteoarthritis of spine with radiculopathy, lumbar region Following with [facility]. Planning for diagnostic bilateral SI joint injections early March. Per patient, they require updated platelet and coags. Patient request to have this done at [facility]. - CBC (with Diff); Future - Prothrombin Time; Future - APTT; Future 3. Type 2 diabetes mellitus without complication, without long-term current use of insulin Ongoing lifestyle changes. Retrying low-dose Ozempic as she would greatly benefit from its weight loss effects in addition to glucose control. Will order updated A1c to be done at outside hospital lab. - Hemoglobin A1c; Future - semaglutide (Ozempic) 0.25 mg 5. Nicotine dependence, cigarettes, uncomplicated Ongoing smoking cessation efforts. Reordering Chantix, but advised her to start this after resumingand stabilizing on Ozempic first to limit potential side effects. 6. Moderate episode of recurrent major depressive disorder 7. PTSD (post-traumatic stress disorder) 8. Anxiety Reports improved mood and anxiety today despite elevated PHQ-9 and FÉLIX levels. We will continue to monitor and continue with current regimen 9. HTN Good control on home reporting. Patient self discontinued spironolactone. Continue current regimen of HCTZ, lisinopril, metoprolol. Follow Up: 2 months Total time spent associated with the visit including patient discussion and pre/post visit chart activities: 30 minutes * Ragini Unger MD - 02/10/2023 11:30 AM EDT The case was discussed in person at the time of the visit or immediately after the visit. The assessment and plan were formulated in discussion with me and I agree with them as documented. I have reviewed the history, physical exam, assessment and plan with the resident. Major issues discussed today: Pt was seen by telehealth by resident. Depression/anxiety/PTSD - on trintellix 20 mg once daily. Feels she is doing well today, despite increased Phq9 and FÉLIX levels today. No changes in medications today. HTN - BP at home are 120-130's. On hctz 25, lisinopril 40, metoprolol succinate 25. Sinus tachycardia - better with decrease in stress. Continues on metoprolol xl 25, DM - on metformin 1000 bid. Could not tolerated GLP1, DPPT. More recently was on low dose of ozempic and tolerated x 1 month before stopping b/c of abdominal discomfort. Discussed with patient and plan will be to restart the low dose ozempic. Plan to check hemoglobin A1c. tob cessation - restart chantix. Low back pain - recent MRI - worsening DJD with impingement of S1. Saw [facility] and they did not feel that she had symptoms from the s1 impingement. They recommended SI joint injection for diagnostic purpose, and is scheduled in March for that. HCM - schedule mammogram at [facility]. documented in this encounter Plan of Treatment Upcoming Encounters Date Type Department Care Team (Late st Contact Info) Description 09/05/2024 9:00 AM EDT Office [place] [address] Gema Oliveira DO [facility] [place] [address] documented as of this encounter Visit Diagnoses Diagnosis Breast cancer screening by mammogram Osteoarthritis of spine with radiculopathy, lumbar region Type 2 diabetes mellitus without complication, without long-term current use of insulin Adult BMI 40.0-44.9 kg/sq m Body Mass Index 40.0-44.9, adult Nicotine dependence, cigarettes, uncomplicated Moderate episode of recurrent major depressive disorder PTSD (post-traumatic stress disorder) Posttraumatic stress disorder Anxiety Anxiety state, unspecified Hypertension, essential, benign Essential hypertension, benign documented in this encounter Care Teams Senior C Software Engineer Relationship Specialty Start Date End Date Tasneem Galdamez MD [facility] [place] [address] PCP - General General Internal Medicine 05/20/2004/21 documented as of this encounter
--- OUTSIDE RECORDS SUMMARY | 2024-07-12 00:29 | XMS_ITS | Encounter Summary ---
Author Organization [facility] Address [facility] [place] [address] Care Team Providers Care Finishing Tunnel Operator Name Role Phone Tasneem Galdamez MD Primary Care Provider [phone] Encounter Details Date Type Department Care Team (Latest Contact Info) Description 01/04/2023 Travel Social History Tobacco Use Types Packs/Day [...] slept in a group home (including now)? No 10/27/2022 Sex and Gender Information Value Date Recorded Sex Assigned at Not on file Gender Identity Not on file Sexual Orientation Not on file documented as of this encounter Plan of Treatment Upcoming Encounters Date Type Department Care Team (Late st Contact Info) Description 09/05/2024 9:00 AM EDT Office [place] [address] Gema Oliveira DO [facility] [address] [address] documented as of this encounter Visit Diagnoses Not on filedocumented in this encounter Care Teams Finishing Tunnel Operator Relationship Specialty Start Date End Date Tasneem Galdamez MD [facility] [place] [address] PCP - General General Internal Medicine 05/20/2004/21 documented as of this encounter
--- OUTSIDE RECORDS SUMMARY | 2024-07-12 00:29 | XMS_ITS | Encounter Summary ---
Author Organization [facility] Address [facility] [place] [address] Care Team Providers Care Mediation Commissioner Name Role Phone Tasneem Galdamez MD Primary Care Provider [phone] Encounter Details Date Type Department Care Team (Latest Contact Info) Description 10/17/2022 Travel Social History Tobacco Use Types Packs/Day Years Used Date Smoking Tobacco: Every Day Cigarettes 0.5 30 Smokeless Tobacco: Never Comments:Quit 5 wks ago Alcohol Use Standard Drinks/Week Comments Yes 0 (1 standard drink = 0.6 oz pur e alcohol) Very rare Sex and Gender Information Value Date Recorded Sex Assigned at Not on file Gender Identity Not on file Sexual Orientation Not on file documented as of this encounter Plan of Treatment Upcoming Encounters Date Type Department Care Team (Late st Contact Info) Description 09/05/2024 9:00 AM EDT Office Visit Internal Medicine at [address] [id number] Gema Oliveira DO [facility] [place] [address] documented as of this encounter Visit Diagnoses Not on filedocumented in this encounter Care Teams Mediation Commissioner Relationship Specialty Start Date End Date Tasneem Galdamez MD [facility] [address] [address] PCP - General General Internal Medicine 05/20/2004/21 documented as of this encounter
--- OUTSIDE RECORDS SUMMARY | 2024-07-12 00:29 | XMS_ITS | Encounter Summary ---
Author Organization [facility] Address [facility] [place] [address] Care Team Providers Care Filler Picker Name Role Phone Tasneem Galdamez MD Primary Care Provider [phone] Reason for Visit * Reason Onset Date Comments Questions 10/28/2022 TC to pt to disc uss options since Referral to Neurosurgery not accepted. Encounter Details Date Type Department Care Team (Late st Contact Info) Description 10/28/2022 Telephone Internal Medicine at [address] [address] Angela Padilla V, RN Questions (TC to pt to discuss options since Referral to Neurosurgery not accepted.) Social History Tobacco Use Types Packs/Day Years [...] or slept in a jail (including now)? No 10/27/2022 Sex and Gender Information Value Date Recorded Sex Assigned at Not on file Gender Identity Not on file Sexual Orientation Not on file documented as of this encounter Miscellaneous Notes * Telephone Encounter - Angela Padilla V RN - 10/28/2022 12:23 PM EST SOLOMON Hodges - # [phone] - Message left on Identifiable voicemail. Called to discuss options for Referral due to Neurosurgery Referral no accepted. (They do not do joint injections) Requested a return call to advise if she would like a Referral [facility]. documented in this encounter Plan of Treatment Upcoming Encounters Date Type Department Care Team (Late st Contact Info) Description 09/05/2024 9:00 AM EDT Office Visit Internal Medicine at [address] [address] Gema Oliveira, [facility] [place] [address] documented as of this encounter Visit Diagnoses Not on filedocumented in this encounter Care Teams Filler Picker Relationship Specialty Start Date End Date Tasneem Galdamez MD [facility] [place] [address] PCP - General General Internal Medicine 05/20/2004/21 documented as of this encounter
--- OUTSIDE RECORDS SUMMARY | 2024-07-12 00:29 | XMS_ITS | Encounter Summary ---
Author Organization [facility] Address [facility] [address] Care Team Providers Care Switch Repairer Name Role Phone Tasneem Galdamez MD Primary Care Provider [phone] Reason for Visit * Reason Onset Date Comments Medication Refill 12/28/2022 Encounter Details Date Type Department Care Team (Late st Contact Info) Description 12/28/2022 [place] [id number] Zina Siddiqi CCMA Social History Tobacco Use Types Packs/Day Years [...] or slept in a penitentiary (including now)? No 10/27/2022 Sex and Gender Information Value Date Recorded Sex Assigned at Not on file Gender Identity Not on file Sexual Orientation Not on file documented as of this encounter Plan of Treatment Upcoming Encounters Date Type Department Care Team (Late st Contact Info) Description 09/05/2024 9:00 AM EDT Office Visit Internal Medicine at [address] [address] Gema Oliveira DO [facility] [address] [place] [address] documented as of this encounter Visit Diagnoses Not on filedocumented in this encounter Care Teams Switch Repairer Relationship Specialty Start Date End Date Tasneem Galdamez MD [facility] [place] [address] PCP - General General Internal Medicine 05/20/2004/21 documented as of this encounter
--- OUTSIDE RECORDS SUMMARY | 2024-07-12 00:29 | XMS_ITS | Encounter Summary ---
Author Organization [facility] [place] [address] Care Team Providers Care Administrative Resources Associate Name Role Phone Tasneem Galdamez MD Primary Care Provider [phone] Reason for Visit * Reason Comments Medication Refill Encounter Details Date Type Department Care Team (Late st Contact Info) Description 05/03/2022 Refill Internal Medicine at [address] [address] Tasneem Galdamez MD [facility] [place] [address] Mild intermittent asthma without complication; Obstructive lung disease (generalized) Social History Tobacco Use Types Packs/Day Years Used Date Smoking Tobacco: Former Cigarettes 0.5 30 Smokeless Tobacco: Never Comments:Quit [...] AM EDT Office Visit Internal Medicine at [address] [id number] Gema Oliveira DO [facility] [place] [address] documented as of this encounter Visit Diagnoses Diagnosis Mild intermittent asthma without complication Unspecified asthma Obstructive lung disease (generalized) Chronic airway obstruction, not elsewhere classified documented in this encounter Care Teams Administrative Resources Associate Relationship Specialty Start Date End Date Tasneem Galdamez MD [facility] [place] [address] PCP - General General Internal Medicine 05/20/2004/21 documented as of this encounter
--- OUTSIDE RECORDS SUMMARY | 2024-07-12 00:29 | XMS_ITS | Encounter Summary ---
Author Organization [facility] [place] [address] Care Team Providers Care Wood Gouger Name Role Phone Tasneem Galdamez MD Primary Care Provider [phone] Encounter Details Date Type Department Care Team (Late st Contact Info) Description 10/12/2021 Orders Only Internal Medicine at [address] [address] Tasneem Galdamez MD [facility] [place] [address] Mild intermittent asthma without complication; Obstructive lung [...] AM EDT Office Visit Internal Medicine at [address] [id number] Gema Oliveira DO [facility] [place] [address] documented as of this encounter Visit Diagnoses Diagnosis Mild intermittent asthma without complication Unspecified asthma Obstructive lung disease (generalized) Chronic airway obstruction, not elsewhere classified documented in this encounter Care Teams Wood Gouger Relationship Specialty Start Date End Date Tasneem Galdamez MD [facility] [place] [address] PCP - General General Internal Medicine 05/20/2004/21 documented as of this encounter
--- OUTSIDE RECORDS SUMMARY | 2024-07-12 00:29 | XMS_ITS | Encounter Summary ---
Author Organization [facility] Address [facility] [place] [address] Care Team Providers Care Grade School Teacher Name Role Phone Tasneem Galdamez MD Primary Care Provider [phone] Reason for Visit * Reason Comments Medication Refill Encounter Details Date Type Department Care Team (Late st Contact Info) Description 10/16/2021 Refill Internal Medicine at [address] [address] Tasneem Galdamez MD [facility] [place] [address] Type 2 diabetes mellitus without complication, without [...] EDT Office Visit Internal Medicine at [address] [address] Gema Oliveira DO [facility] [place] [address] documented as of this encounter Visit Diagnoses Diagnosis Type 2 diabetes mellitus without complication, without long-term current use of insulin documented in this encounter Care Teams Grade School Teacher Relationship Specialty Start Date End Date Tasneem Galdamez MD [facility] [place] [address] PCP - General General Internal Medicine 05/20/2004/21 documented as of this encounter
--- OUTSIDE RECORDS SUMMARY | 2024-07-12 00:29 | XMS_ITS | Encounter Summary ---
Author Organization [facility] [place] [address] Care Team Providers Care Candy Cutter Hand Name Role Phone Tasneem Galdamez MD Primary Care Provider [phone] Encounter Details Date Type Department Care Team (Late st Contact Info) Description 10/28/2022 Telephone Internal Medicine at [facility] [address] [place] [address] Shanna Bishop Social History Tobacco [...] or slept in a [facility] (including now)? No 10/27/2022 Sex and Gender Information Value Date Recorded Sex Assigned at Not on file Gender Identity Not on file Sexual Orientation Not on file documented as of this encounter Miscellaneous Notes * Telephone Encounter - Shanna Bishop - 10/28/2022 10:27 AM ESTSummary: REFERRAL LATHA, replied back for this patients MRI lumbar spine. Should this patient have this done? documented in this encounter Plan of Treatment Upcoming Encounters Date Type Department Care Team (Late st Contact Info) Description 09/05/2024 9:00 AM EDT Office [place] [address] Gema Oliveira DO [facility] [place] [address] documented as of this encounter Visit Diagnoses Not on filedocumented in this encounter Care Teams Candy Cutter Hand Relationship Specialty Start Date End Date Tasneem Galdamez MD [facility] [place] [address] PCP - General General Internal Medicine 05/20/2004/21 documented as of this encounter
--- OUTSIDE RECORDS SUMMARY | 2024-07-12 00:29 | XMS_ITS | Encounter Summary ---
Author Organization [facility] Address [facility] [place] [address] Care Team Providers Care Resource Conservation Manager Name Role Phone Tasneem Galdamez MD Primary Care Provider [phone] Reason for Visit * Reason Onset Date Comments Other 10/27/2022 Re: Referral sen t to [facility] on 10/27/[address] Maciel Encounter Details Date Type Department Care Team (Late st Contact Info) Description 10/27/2022 Telephone [place] [address] Tasneem Galdamez MD [facility] [place] [address] Other (Re: Referral sent to [facility] on 10/27/[address] Maciel) Social History Tobacco Use Types Packs/Day Years [...] or slept in a residential (including now)? No 10/27/2022 Sex and Gender Information Value Date Recorded Sex Assigned at Not on file Gender Identity Not on file Sexual Orientation Not on file documented as of this encounter Miscellaneous Notes * Telephone Encounter - Petrona Nava - 10/27/2022 2:54 PM EST Message: Akua is calling from [facility] stating she received this patients referral and states the patient hasn't been seen since 2018 and would need an updated MRI ofthe lumbar spine for a surgery consult to be done. She also mentions they don't do injections and on the referral it mentioned the patient getting injections, please call back to discuss. Ask caller their first and last name and relationship to the patient: Akua- [facility] [phone] Best time to call back: any Ok to leave a message: y Ok to send my- message: y Offered Appointment: n MA/Nurse/Front Office Representative contacted via: Message: y Call: n Pager: n ------ TC to [facility] - Akua # [phone] Ext [phone] Tracie was last seen in [facility] in 2018. Last MRI of Lumbar Spine done in November. Referral to Neurosurgery cannot be considered until an updated MRI is done within the past 12 months. Also, they do not do injections. Seen in clinic today by Dr Maciel. Referral was sent to [facility]. History of lumbar back pain: Seen at [facility] on 07/10/2017. Last MRI of Lumbar Spine done in November,. Received injection of sacroiliac joint on 01/16/[address] Abby Dickson. Updated information and Denial of Acceptance of Referral to [facility] communicated to Dr Maciel via In Basket. Referral to [facility] [address] [place] [address] Referral & Demographic information faxed to # [phone] documented in this encounter Plan of Treatment Upcoming Encounters Date Type Department Care Team (Late st Contact Info) Description 09/05/2024 9:00 AM EDT Office Visit Internal Medicine at [address] [phone] Gema Oliveira DO [facility] [address] documented as of this encounter Visit Diagnoses Not on filedocumented in this encounter Care Teams Resource Conservation Manager Relationship Specialty Start Date End Date Tasneem Galdamez MD [facility] [address] [place] [address] PCP - General General Internal Medicine 05/20/2004/21 documented as of this encounter
--- OUTSIDE RECORDS SUMMARY | 2024-07-12 00:29 | XMS_ITS | Encounter Summary ---
Author Organization [facility] Address [facility] [place] [address] Care Team Providers Care Elevator Repairer Helper Name Role Phone Tasneem Galdamez MD Primary Care Provider [phone] Reason for Visit * Reason Onset Date Comments Medication Problem 10/15/2021 Encounter Details Date Type Department Care Team (Late st Contact Info) Description 10/15/2021 [place] [address] Tasneem Galdamez MD [facility] [place] [address] Social History Tobacco Use Types Packs/Day Years [...] encounter Miscellaneous Notes * Telephone Encounter - Suzan Bragg Bennett - 10/15/2021 9:41 AM EST Pharmacy or caller: Self Phone Number: Telephone Information: Medication: liraglutide (VICTOZA) 0.6 mg/0.1 mL (18 mg/3 mL) Pen Injector Message: Patient called stating that she needs a prescription for needles to go with this medication. Patient picked up this medication today. [facility] Did you contact your pharmacy?: n documented in this encounter Plan of Treatment Upcoming Encounters Date Type Department Care Team (Late st Contact Info) Description 09/05/2024 9:00 AM EDT Office [place] [address] Gema Oliveira, [facility] [address] [place] [address] documented as of this encounter Visit Diagnoses Not on filedocumented in this encounter Care Teams Elevator Repairer Helper Relationship Specialty Start Date End Date Tasneem Galdamez MD [facility] [place] [address] PCP - General General Internal Medicine 05/20/2004/21 documented as of this encounter
--- OUTSIDE RECORDS SUMMARY | 2024-07-12 00:29 | XMS_ITS | Encounter Summary ---
Author Organization [facility] Address [facility] [place] [address] Care Team Providers Care Dude Ranch Manager Name Role Phone Tasneem Galdamez MD Primary Care Provider [phone] Encounter Details Date Type Department Care Team (Latest Contact Info) Description 12/07/2022 Travel Social History Tobacco Use Types Packs/Day [...] or slept in a detention (including now)? No 10/27/2022 Sex and Gender Information Value Date Recorded Sex Assigned at Not on file Gender Identity Not on file Sexual Orientation Not on file documented as of this encounter Plan of Treatment Upcoming Encounters Date Type Department Care Team (Late st Contact Info) Description 09/05/2024 9:00 AM EDT Office [place] [address] Gema Oliveira DO [facility] [address] [address] documented as of this encounter Visit Diagnoses Not on filedocumented in this encounter Care Teams Dude Ranch Manager Relationship Specialty Start Date End Date Tasneem Galdamez MD [facility] [place] [address] PCP - General General Internal Medicine 05/20/2004/21 documented as of this encounter
--- OUTSIDE RECORDS SUMMARY | 2024-07-12 00:29 | XMS_ITS | Encounter Summary ---
[place] [address] Care Team Providers Care Family Consumer Scientist Name Role Phone Tasneem Galdamez MD Primary Care Provider [phone] Reason for Visit * Reason Onset Date Comments Prior Authorization 09/06/2022 varenicline (Chantix) 1 mg Tablet Encounter Details Date Type Department Care Team (Late st Contact Info) Description 09/06/2022 Telephone Internal Medicine at [address] [address] Kami Schaffer CMA Prior Authorization (varenicline (Chantix) 1 mg Tablet ) Social History Tobacco Use Types Packs/Day Years [...] encounter Miscellaneous Notes * Telephone Encounter - Elaina Dominique CMA - 09/07/2022 7:54 AM EDT Images from the original note were not included. Per [place] Medicaid insurance: No PA required at this time. Medication:Varenicline 1 mg Huang # n/a Case # [id number] * Telephone Encounter - Kami Schaffer CMA - 09/06/2022 4:02 PM EDT Medication Prior Authorization Request received via: Message Patient: Tracie Layton Patient : 1970 Insurance Company: [place] Medicaid Sent via: HOLLR Huang: [id number] Physician: Tasneem Galdamez MD Medication Requested: varenicline (Chantix) 1 mg Tablet Frequency/Sig: Take 1 tablet by mouth 2 times daily (with meals). This medication should be taken in the middle of your largest meal(s) with a full glass of water. DO NOT TAKE ON AN EMPTY STOMACH. ??Indications: stop smoking Disp: 60 Refills: 5 Currently taking: yes If yes, how lon08/2017 Diagnosis for this medication: Smoking (F17.200) Prior medications trialed in this patient: Medication: chantix 0.5 mg Approx Dates: 2016-08/2022 Outcome/Adverse Reactions: Inadequate response Medication: nicoderm patch Approx Dates: 3749-4444 Outcome/Adverse Reactions: Inadequate response Medication: comit Approx Dates: Outcome/Adverse Reactions: Inadequate response Additional Notes: documented in this encounter Plan of Treatment Upcoming Encounters Date Type Department Care Team (Late st Contact Info) Description 09/05/2024 9:00 AM EDT Office Visit [place] [address] Gema Oliveira DO [facility] [place] [address] documented as of this encounter Visit Diagnoses Not on filedocumented in this encounter Care Teams Family Consumer Scientist Relationship Specialty Start Date End Date Tasneem Galdamez MD [facility] [address] [address] PCP - General General Internal Medicine 05/20/2004/21 documented as of this encounter
--- OUTSIDE RECORDS SUMMARY | 2024-07-12 00:29 | XMS_ITS | Encounter Summary ---
Author Organization [facility] Address [facility] [place] [address] Care Team Providers Care Laundry Washer Name Role Phone Tasneem Galdamez MD Primary Care Provider [phone] Reason for Visit * Reason Onset Date Comments Medication Refill 05/30/2022 Encounter Details Date Type Department Care Team (Late st Contact Info) Description 05/30/2022 Refill Internal Medicine at [address] [address] Ragini Unger MD [facility] [address] [address] Essential hypertension; Gastroesophageal reflux disease without esophagitis; Exertional chest pain Social History Tobacco Use Types Packs/Day [...] AM EDT Office Visit Internal Medicine at [address] [address] Gema Oliveira DO [facility] [place] [address] documented as of this encounter Visit Diagnoses Diagnosis Essential hypertension Unspecified essential hypertension Gastroesophageal reflux disease without esophagitis Esophageal reflux Exertional chest pain Chest pain, unspecified documented in this encounter Care Teams Laundry Washer Relationship Specialty Start Date End Date Tasneem Galdamez MD [facility] [place] [address] PCP - General General Internal Medicine 05/20/2004/21 documented as of this encounter
--- OUTSIDE RECORDS SUMMARY | 2024-07-12 00:29 | XMS_ITS | Encounter Summary ---
Author Organization [facility] [place] [address] Care Team Providers Care Liner Assembler Name Role Phone Tasneem Galdamez MD Primary Care Provider [phone] Reason for Visit * Reason Comments Medication Refill Encounter Details Date Type Department Care Team (Late st Contact Info) Description 09/25/2021 Refill Internal Medicine at [address] [address] Tasneem Galdamez MD [facility] [place] [address] Gastroesophageal reflux disease without esophagitis; Restless leg Social History Tobacco Use Types Packs/Day Years Used Date Smoking Tobacco: Every Day Cigarettes 0.5 30 Smokeless Tobacco: Never Alcohol Use Standard Drinks/Week Comments Yes 0 [...] AM EDT Office Visit Internal Medicine at [address] [address] Gema Oliveira DO [facility] [place] [address] documented as of this encounter Visit Diagnoses Diagnosis Gastroesophageal reflux disease without esophagitis Esophageal reflux Restless leg Restless legs syndrome (RLS) documented in this encounter Care Teams Liner Assembler Relationship Specialty Start Date End Date Tasneem Galdamez MD [facility] [place] [address] PCP - General General Internal Medicine 05/20/2004/21 documented as of this encounter
--- OUTSIDE RECORDS SUMMARY | 2024-07-12 00:29 | XMS_ITS | Encounter Summary ---
Author Organization [facility] Address [facility] [place] [address] Care Team Providers Care Poultry Hanger Name Role Phone Gema Oliveira DO Primary Care Provider [phone] Reason for Visit * Reason Onset Date Comments Medication Refill 08/08/2022 Encounter Details Date Type Department Care Team (Late st Contact Info) Description 08/08/2022 Refill Internal Medicine at [address] [address] Tasneem Galdamez MD [facility] [place] [address] Essential hypertension Social History Tobacco Use Types [...] EDT Office Visit Internal Medicine at [address] [address] Gema Oliveira DO [facility] [address] [place] [address] documented as of this encounter Visit Diagnoses Diagnosis Essential hypertension Unspecified essential hypertension documented in this encounter Additional Health Concerns Infection Onset Date Last Indicated Resolved Time Rule Out Respiratory 12/15/2023 12/15/2023 024 8:51 PM EST Rule Out COVID-19 12/15/2023 12/15/2023 12/15/2023 4:42 PM EST RSV 12/15/2023 12/15/2023 12/25/2023 8:09 PM EST documented as of this encounter Care Teams Poultry Hanger Relationship Specialty Start Date End Date Gema Oliveira DO [facility] [place] [place] [address] PCP - General General Internal Medicine 05/17/23 documented as of this encounter
--- OUTSIDE RECORDS SUMMARY | 2024-07-12 00:29 | XMS_ITS | Encounter Summary ---
[place] [address] Care Team Providers Care Self Storage Manager Name Role Phone Tasneem Galdamez MD Primary Care Provider [phone] Encounter Details Date Type Department Care Team (Late st Contact Info) Description 12/27/2021 Telephone Internal Medicine at [facility] [address] [place] [address] Shanna Bishop Social History Tobacco [...] * Telephone Encounter - Shanna Bishop - 12/27/2021 10:31 AM ESTSummary: 12-29-21 appt canceled Appointment on 12-29-[address] Galdamez has been bumped. Left Message for patient to call back to reschedule. Please transfer patient to exit typing secretary to aid in scheduling no PSC can schedule Yes, please reschedule next available with Dr Galdamez or Santy Tate 12-29-[address] absence. documented in this encounter Plan of Treatment Upcoming Encounters Date Type Department Care Team (Late st Contact Info) Description 09/05/2024 9:00 AM EDT Office Visit Internal Medicine at [address] [address] Gema Oliveira DO [facility] [address] [address] documented as of this encounter Visit Diagnoses Not on filedocumented in this encounter Care Teams Self Storage Manager Relationship Specialty Start Date End Date Tasneem Galdamez MD [facility] [place] [address] PCP - General General Internal Medicine 05/20/2004/21 documented as of this encounter
--- OUTSIDE RECORDS SUMMARY | 2024-07-12 00:29 | XMS_ITS | Encounter Summary ---
Author Organization [facility] [place] [address] Care Team Providers Care Guest Relations Manager Name Role Phone Tasneem Galdamez MD Primary Care Provider Reason for Referral * Consultation (Routine) - Closed Specialty Diagnoses / Procedures Referred By Contac t Referred To Contact Urology Diagnoses Mixed stress and urge urinary incontinence Tasneem Galdamez MD [facility] [place] [address] [facility] [employer] [address] [place] [address] Referral ID Status Reason Start Date Expiration Date V isits Requested Visits Authorized [id number] Closed Consult, Test & Treat 12/07/2022 12/07/2023 1 1 * Diagnostic Test (Routine) - Closed Specialty Diagnoses / Procedures Referred By Contac t Referred To Contact Radiology Diagnoses Lumbar back pain Spinal stenosis of lumbar region with neurogenic claudication Procedures MRI Lumbar Spine wo Contrast (Generic) Tasneem Galdamez MD [facility] GENER[facility] [place] [address] [facility] [place] [address] Referral ID Status Reason Start Date Expiration Date V isits Requested Visits Authorized [id number] Closed Specialty Service Requested 12/07/2022 06/06/2024 1 1 Reason for Visit * Reason Comments Follow-up NO acute concerns Encounter Details Date Type Department Care Team (Late st Contact Info) Description 12/07/2022 10:00 AM EST Office Visit Internal Medicine at [facility] [address] [place] [address] Tasneem Galdamez MD [facility] [place] [id number] Type 2 diabetes mellitus without complication, without long-term current use of insulin; Adult BMI 40.0-44.9 kg/sq m; Hypertension, essential, benign; Tachycardia; Stress incontinence, female; Mixed stress and urge urinary incontinence; Lumbar back pain; Spinal stenosis of lumbar region with neurogenic claudication; Cough, persistent; Moderate episode of recurrent major depressive disorder; Agoraphobia Social History Tobacco Use Types Packs/Day Years [...] or slept in a custodial (including now)? No 10/27/2022 Sex and Gender Information Value Date Recorded Sex Assigned at Not on file Gender Identity Not on file Sexual Orientation Not on file documented as of this encounter Last Filed Vital Signs Vital Sign Reading Time Taken Comments Blood Pressure 117/76 12/07/2022 10:07 AM EST Pulse 116 12/07/2022 10:07 AM EST Temperature 36.8 ??C (98.2 ??F) 12/07/2022 10:[address] Respiratory Rate 16 12/07/2022 10:07 AM EST Oxygen Saturation 100% 12/07/2022 10:07 AM EST Inhaled Oxygen Concentration - - Weight 127.9 kg (282 lb) 12/07/2022 10:07 AM EST Height 175.3 cm (5' 9.02) 12/07/2022 10:[address] reported Body Mass Index 41.62 12/07/2022 10:07 AM EST documented in this encounter Progress Notes * Tasneem Galdamez MD - 12/07/2022 10:00 AM EST Subjective: Patient ID: Tracie Layton is a 51 y.o. female. HPI Chief Complaint Patient presents with ??? Follow-up NO acute concerns Tracie is here to follow up several medical conditions: She has been overall feeling ok. She recently got over a viral URI and does have a residual cough, particularly at night. Palpitations SinusTachycardia HTN - Never able to complete Zio patch due to it falling off and being lost - Currently on HCTZ, Lisinopril and was transitioned off metoprolol to Carvedilol, however at another provider's visit she reported not taking the Carvedilol due to nausea. At that visit metoprolol was added back and spironolactone was added for adjunctive therapy. - Today, she brings her cuff into (wrist cuff) and verifies it is within 5pts of our reading in theoffice. She has good control today and at home. Denies recurrence of chest pain, palpitations or flushing. She is due for a BMP with the addition of Aldactone. Depression/anxiety: In February, she was seen for increased anxiety and depression, in the setting of several life stressors. She was having palpitations, flushing, headache and diaphoresis intermittently. She previously was on Trintellix 10mg + Abilify, however, this caused an internal jitteriness that was concerning for potentially too much serotonin. So Ability was discontinued and Trintellix was resumed then increased to 20mg. At the last visit she has reported stable mood and resolution of the jitteriness. - Today, she reports several live stressors. Her grandmother recently and her uncle blanka newly diagnosed with cancer. Despite this she feels her mood has been fair with current regimen (Trintellix). Denies SI and reports several things to live for, including her grandchildren. T2DM Victoza was discontinued due to GI upset. A1C had increased to 7.4%. Metformin was increased to 1500mg daily and Jardiance was added, unfortunately she is no longer taking Jardiance due to vomiting and abdominal upset. She is checking a few times a day at home; reports AM fasting to be in the low 200s. -A1C in 08/2022 was 7.0% on Metformin 2000mg alone -Today's A1c is 7.5% -She is interested in exploring other injectables for her diabetes and for potential weight loss. Current Smoker - Re-orded on Chantix at last visit given prior success with it - Today she reports she has not yet started it, but intends to and has the script at home. Chronic low back pain Neck pain L arm numbness - Had appointments at [facility], but difficulty with appointments due to agoraphobia - Has been working with a chiropractor and reports significant improvement in her neck and arm pain. No longer having arm numbness or shooting pains. - Has had worsening of her low back pain. Walking makes it worse, leaning forward and laying flat improves it. - Has bilateral numbness that goes down her legs. No weakness, saddle anesthesia or foot drop. - She previously seen by Dr. Dickson and wants to see her again, but recent referral was deniedwithout recent MRI. Stress Incontinence - Hx of hysterectomy - Hx of bladder sling in 2016, with revision in 2017 - The surgeries intially improved symptoms, but has been having more incontinence. Mostly related to position changes, coughing or laughing. Also had some urgency - Denies blood in urine or burning. Objective: BP 117/76 (BP Location (NBP): Left arm, Patient Position: Sitting, BP Cuff Sizes: Large Adult (32-43 cm)) Pulse (!) 116 Temp 36.8 ??C (98.2 ??F) (Temporal) Resp 16 Ht 175.3 cm (5' 9.02) Comment: reported Wt 127.9 kg (282 lb) LMP 10/06/2019 (Exact Date) SpO2 100% BMI 41.62 kg/m?? PHQ-9 QUESTIONNAIRE SCORE ONLY (AMB) 10/27/2022 PHQ - 9 Score (Patient) 14 (Moderate Depression) Some recent data might be hidden Wt Readings from Last 3 Encounters: 12/07/22 127.9 kg (282 lb) 10/27/22 128.4 kg (283 lb) 08/26/22 127.8 kg (281 lb 12.8 oz) Physical Exam: Gen: NAD; alert, oriented, conversant CV: Tachycardic but regular, no murmurs/rubs/gallops Resp: CTAB, no crackles/wheezes/ronchi, normal work of breathing Neuro: no focal deficits noted, CN II-XII grossly intact. Mild tenderness to palpation of bilateralSI joints and paraspinal muscles. LE strength 5/5 Skin: no rashes, lesions, or ulcerations noted Assessment and Plan: 1. Type 2 diabetes mellitus without complication, without long-term current use of insulin 2. Adult BMI 40.0-44.9 kg/sq m Currently only on metformin. Previously did not tolerate Victoza or Jardiance. A1c above goal todayat 7.5%. She would greatly benefit from a GLP-1 for both the diabetic control and weight loss. Although she did not tolerate Victoza, she may have better luck with a weekly injection as opposed to daily. We will try to get her on Ozempic, discussed with the patient insurance may be a barrier. Askedher to reach out if medication is overly expensive. - POCT glycated hemoglobin, total (HA1C) - metFORMIN (Glucophage) 1,000 mg Tablet; Take 1 tablet by mouth 2 times daily (with meals). Dispense: 90 tablet; Refill: 3 - semaglutide (Ozempic) 0.25 mg or 0.5 mg(2 mg/1.5 mL) Pen Injector; Inject 0.25 mg subcutaneously once a week for 30 days, THEN 0.5 mg once a week. Indications: type 2 diabetes mellitus Dispense: 3 mL; Refill: 0 3. Hypertension, essential, benign 4. Tachycardia Stable on current regimen of HCTZ, lisinopril, metoprolol and newly added Aldactone. Blood pressureat goal today and confirmed home cuff to be accurate. She continues to be tachycardic, although regular suspect in part this to be due to underlying anxiety. Can consider trying a Zio patch again in the future. Had previously wanted 24-hour urine to rule out pheo however this was unable to be completed and reassuringly patient is now denying symptoms of palpitations or flushing. We will continue current regimen and update chemistry today - Basic Metabolic Panel (non-fasting) 5. Stress incontinence, female 6. Mixed stress and urge urinary incontinence Patient has a long history of mixed stress and urge incontinence with 2 prior surgical interventions. Symptoms have returned. Will u/a to rule out infection but otherwise will refer back to your guide for discussion of further options. Did briefly discuss pelvic floor PT, which the patient is not currently interested in. - Urinalysis with reflex Culture - Referral to Urogynecology 7. Lumbar back pain 8. Spinal stenosis of lumbar region with neurogenic claudication Worsening of her chronic low back pain, with associated bilateral radiculopathy. She previously hasbeen followed by orthopedics but recent referral was declined due to no recent MRI. The descriptionof worse when walking and improved when leaning or laying down is characteristic of spinal stenosis. It is reasonable to update imaging to evaluate for potential surgical interventions, given some jyoti ro claudication been present. After MRI we will refer back to orthopedics. - MRI Lumbar Spine wo Contrast (Generic); Future 9. Cough, persistent Continues to have residual cough after viral URI. Will trial as needed Tessalon pearls for cough. - benzonatate (Tessalon) 100 mg Capsule; Take 1 capsule by mouth 3 times daily as needed for Cough.Dispense: 30 tablet; Refill: 0 10. Moderate episode of recurrent major depressive disorder 11. Agoraphobia Several recently stressors, however doing well on Trintellix. No SI. Agoraphobia does make it difficult for her to get scans and work-up F/u in 2 months - telehealth Martínez White MD - 12/07/2022 10:00 AM EST The case was discussed in person at the time of the visit or immediately after the visit. The assessment and plan were formulated in discussion with me and I agree with them as documented. I have reviewed the history, physical exam, assessment and plan with the resident. Major issues discussed today: F/u multiple issues 51 y/o F with PTSD, ADD, depression/anxiety (on trintellix), HTN, sinus tachycardia, DM2 Mood - recent life stressors, no SI - doing well on Trintellix Sinus tachycardia/palpitations - negative stress, did not complete ziopatch, did not complete 24 hour urine (for pheo). On metoprolol 25mg daily. HR 110s HTN - HCTZ, lisinopril, metoprolol, aldactone -- BP controlled today. Home BP cuff confirmed accurate today. DM2 - metformin 1000mg BID; previously failed victoza/jardiance; A1c today 7.5% up from 7% in August. Interested in trying another GLP-1. Tobacco use - has script for chantix; not interested in nicotine replacement Chronic neck pain/L arm numbness - hasn't had MRI, did not follow through with CT (agoraphobia) Low back pain with radiculopathy - previously referred to orthopedics but declined due to no prior MRI - she is willing to try now Stress urinary incontinence - with prior surgery x 2. Refer back to urogyn. Plan: trial Ozempic or trulicity depending on insurance, check BMP documented in this encounter Plan of Treatment Upcoming Encounters Date Type Department Care Team (Late st Contact Info) Description 09/05/2024 9:00 AM EDT Office Visit Internal Medicine at [place] [id number] [facility] [place] [address] Scheduled Referrals Name Type Priority Associated Diagnoses Orde r Schedule Referral to Urogynecology Outpatient Referral Routine Mixed stress and urge urinary incontinence Ordered: 12/07/2022 documented as of this encounter Procedures Procedure Name Priority Date/Time Associated Diagnosis Comments URINALYSIS WITH REFLEX CULTURE Routine 12/07/2022 10:58 AM EST Stress incontinence, female BASIC METABOLIC PANEL Routine 12/07/2022 10:51 AM EST Hypertension, essential, benign POCT GLYCATED HEMOGLOBIN, TOTAL (HA1C) Routine 12/07/2022 10:15 AM EST Type 2 diabetes mellitus without complication, without long-term current use of insulin documented in this encounter Results * MRI Lumbar Spine wo Contrast (Generic) (01/05/2023 3:51 PM EST) Anatomical Region Laterality Modality L-spine Magnetic Resonan ce Impressions 01/06/2023 9:20 AM EST Interval worsening of degenerative disc disease at L5-S1 with possible impingement of the left S1 nerve root within the left subarticular recess. Marked interval worsening of bilateral hypertrophic facet arthropathy at L4-5 with worsening of spinal stenosis. The degree of spinal stenosis remains mild. Comment: The following findings are so common [...] who have questions please contact the health resident care aid that requested your imaging first. ? Narrative 01/06/2023 9:20 AM EST EXAMINATION: MRI LUMBAR SPINE WO CONTRAST (GENERIC) CLINICAL HISTORY: chronic low back pain with acute worsening. worse with walking, improved with lying down. numbness and radiation down b/l, ? spinal stenosis TECHNIQUE: MRI of the lumbar spine performed without intravenous contrast administration. COMPARISON: MRI of the lumbar spine of 11/23/2017 FINDINGS: There is mild levoconvex scoliosis of [...] to produce moderate left neural foramen narrowing Procedure Note Kelechi Gr MD - 01/06/2023 EXAMINATION: MRI LUMBAR SPINE WO CONTRAST (GENERIC) CLINICAL HISTORY: chronic low back pain with acute worsening. worse with walking, improvedwith lying down. numbness and radiation down b/l, ? spinal stenosis TECHNIQUE: MRI of the lumbar spine performed without intravenous contrastadministration. COMPARISON: MRI of the lumbar spine of 11/23/2017 FINDINGS: There is mild levoconvex scoliosis of the lumbar spine. There is grade I retrolisthesis of L5 respect to S1 similar to that present on the priorstudy. Vertebral body heights are normally maintained. Marrow signal is normalwith the exception of mixed edematous and fatty discogenic degenerative changes inthe endplates about the L5-S1 disc space. These discogenic degenerativechanges are substantially greater than those present on the prior study. The conus medullaris is of normal contour and signal characteristics terminating atthe level of L1. At T12-L1, L1-2, L2-3, L3-4 there is no disc herniation or evidence ofnerve root impingement. At L4-5 there is a minor circumferential disc bulge. There is severebilateral facet arthropathy. These abnormalities combine to produce mild spinalstenosis with partial effacement of the subarachnoid space and bilateral moderate subarticular recess narrowing. There is mild bilateral neural foramennarrowing. The severity of the spinal canal narrowing is greater than that which hadbeen present on the study of 2018, largely secondary to worsening hypertrophicfacet arthropathy. At L5-S1 there is an broad [...] left S1 nerve root within the left subarticularrecess. Marked interval worsening of bilateral hypertrophic facet arthropathy atL4-5 with worsening of spinal stenosis. The degree of spinal stenosis remainsmild. Comment: The following findings are so common in people without low backpain that while we report their presence, they must be interpreted with cautionand in context of the clinical situation (Reference- Krystlevik Et Al, [id number]). Findings: (Prevalence in patients without low back [...] patients who have questions please contactthe health resident care aid that requested your imaging first. Ragini Unger MD [facility] MRI ORDERABLES * (ABNORMAL) Urinalysis with reflex Culture (12/07/2022 10:58 AM EST) Glucose, Urine Dipstick 100(A) Negative mg/dL [facility] Protein, Urine Dipstick Negative Negative mg/dL [facility] Bilirubin, Urine Dipstick Negative Negative mg/dL [facility] Comment: Clinical correlation required for positive Urine Bilirubin results as false positive may occur with some drugs and drug related products. If a false positive is suspected a serum total bilirubin should be considered if clinically indicated. Urobilinogen, Urine Dipstick Normal Normal mg/dL [facility] pH, Urn (dipstick) 5.5 5.0 - 8.0 [facility] Blood, Urine Dipstick Negative Negative mg/dL [facility] Ketone, Urine Dipstick Trace(A) Negative mg/dL [facility] Nitrite, Urine Dipstick Negative Negative [facility] Leukocytes, Urine Dipstick Negative Negative mcL [facility] Appearance, Urine Dipstick Clear Clear [facility] Specific [place] Urine Automated 1.026 1.005 - 1.030 [facility] Color, Urine Dipstick Yellow Yellow [facility] Reflex to Culture No [facility] Clean Catch Urine 12/07/2022 10:58 AM EST 12/07/2022 8:30 PM EST Narrative Resulting Agency Comment Spec In Lab Martínez Cason MD URINE ORDERABLES Performing Organization Address City/State/[facility] Co de Phone Number [facility] [place] [address] * (ABNORMAL) Basic Metabolic Panel (non-fasting) (12/07/2022 10:51 AM EST) Glucose 211(H) 65 - 199 mg/dL [facility] Comment:Diabetes: >=200 mg/d L plus symptoms Blood Urea Nitrogen 17 8 - 18 mg/dL [facility] Creatinine 1.03 0.70 - 1.20 mg/dL [facility] Sodium 139 135 - 145 mmol/L [facility] Potassium 4.3 3.5 - 5.0 mmol/L [facility] Comment: Please note: ??Patients with WBC >100,000 may have falsely elevated Potassium levels. ??For accurate Potassium quantification in these patients send serum separator tube (gold top) for subsequent determinations. ??Contact the Clinical Chemistry Laboratory if there are any questions. Chloride 103 98 - 107 mmol/L [facility] Carbon Dioxide 25 22 - 31 mmol/L [facility] Anion Gap 11 5 - 15 mmol/L [facility] Calcium 9.9 8.5 - 10.5 mg/dL [facility] Est Glomerular Filtration Rate 66 >=60 mL/min/1. 73 m?? [facility] Comment: This patient's estimated GFR [...] and symptoms in addition to eGFR. Blood 12/07/2022 10:5 1 AM EST 12/07/2022 7:26 PM EST Narrative Resulting Agency Comment Spec In Lab Martínez Cason MD CHEMISTRY ORDERABLES [facility] [place] [address] * (ABNORMAL) POCT glycated hemoglobin, total (HA1C) (12/07/2022 10:15 AM EST) Hemoglobin A1C, POC 7.5(A) 4.3 - 5.6 % 12/07/2022 10:1 5 AM EST Martínez Cason MD POINT OF CARE TEST O RDERABLES documented in this encounter Visit Diagnoses Diagnosis Type 2 diabetes mellitus without complication, without long-term current use of insulin Adult BMI 40.0-44.9 kg/sq m Body Mass Index 40.0-44.9, adult Hypertension, essential, benign Essential hypertension, benign Tachycardia Tachycardia, unspecified Stress incontinence, female Female stress incontinence Mixed stress and urge urinary incontinence Mixed incontinence urge and stress (male)(female) Lumbar back pain Lumbago Spinal stenosis of lumbar region with neurogenic claudication Spinal stenosis, lumbar region, with neurogenic claudication Cough, persistent Cough Moderate episode of recurrent major depressive disorder Agoraphobia Agoraphobia without mention of panic attacks Lumbar back pain Lumbago Spinal stenosis of lumbar region with neurogenic claudication Spinal stenosis, lumbar region, with neurogenic claudication documented in this encounter Care Teams Guest Relations Manager Relationship Specialty Start Date End Date Tasneem Galdamez MD [facility] [place] [address] PCP - General General Internal Medicine 05/20/2004/21 documented as of this encounter
--- OUTSIDE RECORDS SUMMARY | 2024-07-12 00:29 | XMS_ITS | Encounter Summary ---
Author Organization [facility] [place] [address] Care Team Providers Care Physics And Astronomy Professor Name Role Phone Tasneem Galdamez MD Primary Care Provider Encounter Details Date Type Department Care Team (Late st Contact Info) Description 10/17/2022 [place] [phone] Keyla Kamara, RN Social History Tobacco Use Types Packs/Day [...] encounter Miscellaneous Notes * Telephone Encounter - Keyla Kamara RN - 10/17/2022 9:00 AM EST [facility] Call Documentation Birthdate: 1970 Call Date: Age: 51 Years Work Phone: Work Phone: Gender: Female Time: [address] [place] [address] Address: [address] [place] [id number] Address: PCP: Unknown, Audi Berman M.D. Relationship to Caller: Self Org: [facility] Chief Complaint: HIP PAIN Call Outcome: See MD within 4 hours Client: [facility] [place], Triage Patient: Tracie Layton Caller Is: Tracie Layton 10/17/2022 08:48 Hospital Admissison in past 30 days? No Mbr ID: Email: Preliminary Assessment Notes & Patient/Caller Notes: Chief Complaint: Wanted to make an appointment to make an appointment because she is having hip pain and it's hard to walk and left arm from shoulder down is going numb Onset: 9 days ago Describe Sx: severe pain in bilateral hips; difficulty walking due to pain; intermittent numbness in left arm from shoulder to fingers; weakness in left arm; weakness in left leg; diarrhea Precipitating Factors: Went to [place] 10 days ago and returned 2 days ago Worse/Better (include Meds:D/R/T): No/Advil last dose 2 or 3 days ago- did not help with pain so she stopped taking Effects on normal activity: difficulty walking I&O: appetite decreased; drinking fluids fine; urination wnl; Denies vomiting Temp (rte/time): Denies Pain scale/0-10: 6/10- states pain is Severe NOTES: Unable to warm transfer, advised caller to call back to schedule appointment Patient / Caller Notes: DIAGNOSED PROBLEMS: Hypertension; Pre diabetes MEDICATIONS: Metformin; Lisinopril; HCTZ; Omeprazole; Spironolactone ALLERGIES: Doesn't know name of medications FULL COURSE OF COVID IMMUNIZATION?: Yes- no boosters ANNUAL FLU SHOT?: Yes 10/17/2022 08:56:13 KG1 Pt. Lonnie/Alerts : Nursing Documentation: Triage By: KG1 Guideline: Hip Pain - (Adult After-Hours) [[id number]] Triage Level: Pre Disposition: RN Override: See Physician within 4 Hours (or PCP triage) See/call Doctor Disagree Reason: Go to Facility: Patient Understands Instructions: Yes Questions / Responses For: Hip Pain - (Adult After-Hours) [[id number]] TRIAGE QUESTION (TRIGGERING DISPOSITION) Response [1] SEVERE pain (e.g., excruciating, unable to do any normal activities) AND [2] not improved after 2 hours of pain medicine Tracie Layton Triage #: [id number] - [HIP PAIN] Page 1 of 2 R/O: un-witnessed trauma with fracture, severe joint effusion CARE ADVICE Response 1. CARE ADVICE given per Hip Pain (Adult) guideline. 43. SEE HCP WITHIN 4 HOURS (OR PCP TRIAGE OR VIDEO VISIT): * IF OFFICE WILL BE OPEN: You need to be seen within the next 3 or 4 hours. Call your doctor (or STATION [employer] TRAFFIC CONTROL SPECIALIST/PA) now or as soon as the office opens. * IF OFFICE WILL BE CLOSED AND NO PCP (PRIMARY CARE PROVIDER) SECOND-LEVEL TRIAGE: You need to be seen within the next 3 or 4 hours. A nearby Urgent Care Center (UCC) is often a good source of care. Another choice is to go to the ED. Go sooner if you become worse. 89. CALL BACK IF: * You become worse. 1001. PAIN MEDICINES: * For pain relief, you can take either acetaminophen, ibuprofen, or naproxen. * They are jscc-ilj-lmownpc (OTC) pain drugs. You can buy them at the drugstore. * ACETAMINOPHEN - REGULAR STRENGTH TYLENOL: Take 650 mg (two 325 mg pills) by mouth every 4 to 6 hours as needed. Each Regular Strength Tylenol pill has 325 mg of acetaminophen. The most you should take each day is 3,250 mg (10 pills a day). * ACETAMINOPHEN - EXTRA STRENGTH TYLENOL: Take 1,000 mg (two 500 mg pills) every 8 hours as needed. Each Extra Strength Tylenol pill has 500 mg of acetaminophen. The most you should take each day is 3,000 mg (6 pills a day). * IBUPROFEN (E.G., MOTRIN, ADVIL): Take 400 mg (two 200 mg pills) by mouth every 6 hours. The most you should take each day is 1,200 mg (six 200 mg pills), unless your doctor has told you to take more. * NAPROXEN (E.G., ALEVE): Take 220 mg (one 220 mg pill) by mouth every 8 to 12 hours as needed. You may take 440 mg (two 220 mg pills) for your first dose. The most you should take each day is 660 mg (three 220 mg pills a day), unless your doctor has told you to take more. Tracie Layton Triage #: [id number] - [HIP PAIN] Page 2 of 2 documented in this encounter Plan of Treatment Upcoming Encounters Date Type Department Care Team (Late st Contact Info) Description 09/05/2024 9:00 AM EDT Office Visit Internal Medicine at [address] [id number] Gema Oliveira DO [facility] [place] [address] documented as of this encounter Visit Diagnoses Not on filedocumented in this encounter Care Teams Physics And Astronomy Professor Relationship Specialty Start Date End Date Tasneem Galdamez MD [facility] [address] [place] [address] PCP - General General Internal Medicine 05/20/2004/21 documented as of this encounter
--- OUTSIDE RECORDS SUMMARY | 2024-07-12 00:29 | XMS_ITS | Encounter Summary ---
Author Organization [facility] Address [facility] [place] [address] Care Team Providers Care Certified Personal Finance Counselor Name Role Phone Tasneem Galdamez MD Primary Care Provider [phone] Reason for Visit * Reason Onset Date Comments Medication Refill 05/30/2022 Encounter Details Date Type Department Care Team (Late st Contact Info) Description 05/30/2022 Refill Internal Medicine at [address] [address] Tasneem Galdamez MD [facility] [place] [address] Mild intermittent asthma without complication; Restless leg; Moderate episode of recurrent major depressive disorder; Type 2 diabetes mellitus without complication, without long-term current use of insulin; Obstructive lung disease (generalized) Social History Tobacco [...] EDT Office Visit Internal Medicine at [address] [address] Gema Oliveira DO [facility] [place] [address] documented as of this encounter Visit Diagnoses Diagnosis Mild intermittent asthma without complication Unspecified asthma Restless leg Restless legs syndrome (RLS) Moderate episode of recurrent major depressive disorder Type 2 diabetes mellitus without complication, without long-term current use of insulin Obstructive lung disease (generalized) Chronic airway obstruction, not elsewhere classified documented in this encounter Care Teams Certified Personal Finance Counselor Relationship Specialty Start Date End Date Tasneem Galdamez MD [facility] [place] [address] PCP - General General Internal Medicine 05/20/2004/21 documented as of this encounter
--- OUTSIDE RECORDS SUMMARY | 2024-07-12 00:29 | XMS_ITS | Encounter Summary ---
Author Organization [facility] Address [facility] [place] [address] Care Team Providers Care Principal Ios Developer Name Role Phone Tasneem Galdamez MD Primary Care Provider Reason for Visit * Reason Comments Anxiety Diabetes Encounter Details Date Type Department Care Team (Late st Contact Info) Description 01/06/2022 3:00 PM EST TH Visit (TeleHealth) Internal Medicine at [address] [address] Tasneem Galdamez MD [facility] [place] [address] Type 2 diabetes mellitus without complication, without long-term current use of insulin; Anxiety; Moderate episode of recurrent major depressive disorder; Class 3 severe obesity due to excess calories with body mass index (BMI) of 45.0 to 49.9 in adult, unspecified whether serious comorbidity present; PTSD (post-traumatic stress disorder) Social History Tobacco Use Types Packs/Day Years [...] Progress Notes * Tasneem Galdamez MD - 01/06/2022 3:00 PM EST TeleHealth Based Clinical Care Note Tracie Layton verbally consented to conduct this clinical encounter by telephone or video/telehealth. she acknowledges that her insurance may be billed for the care provided, similar to an in person appointment. Tracie Layton is in the following location at the time of the phone call: [place], [place] Reason for visit/chief complaint: Chief Complaint Patient presents with ??? Anxiety ??? Diabetes Current Medications (which were reviewed during the visit): Medications 10/28/211748 Medication Sig Taking? liraglutide (VICTOZA) 0.6 mg/0.1 mL (18 mg/3 mL) Pen Injector Inject 1.2 mg subcutaneously daily. insulin needles, disposable, 31 gauge x 3/16 Needle Inject 1 each subcutaneously daily. Indications: diabetes mellitus Insulin [place], Disposable, 31 gauge x 1/4 Needle 1 each by [facility].(Non-Drug; Combo Route) route daily. diclofenac (Voltaren) 1 % Gel APPLY TOPICALLY TO THE AFFECTED AREA FOUR TIMES DAILY NEEDED ProAir HFA 90 mcg/actuation HFA Aerosol Inhaler INHALE 2 PUFFS BY MOUTH INTO THE LUNGS EVERY 4 HOURS NEEDED FOR WHEEZING, USE WITH SPACER benzonatate (Tessalon) 100 mg Capsule Take by mouth. vortioxetine (Trintellix) 20 mg Tablet Take 20 mg by mouth daily. ARIPiprazole (Abilify) 5 mg Tablet Take 1 tablet by mouth daily. pramipexole (MIRAPEX) 0.125 mg Tablet TAKE 2 TABLETS BY MOUTH EVERY NIGHT Advair Diskus 100-50 mcg/dose Disk with Device Inhale 1 puff into the lungs every 12 hours. Brand name hydroCHLOROthiazide (Hydrodiuril) 25 mg Tablet Take 1 tablet by mouth daily. lisinopriL (Zestril) 40 mg Tablet Take 1 tablet by mouth daily. metFORMIN XR (Glucophage XR) 500 mg Tablet Sustained Release 24 hr Take 1 tablet by mouth 2 times daily. omeprazole (PriLOSEC) 40 mg Capsule, Delayed Release(E.C.) Take 1 capsule by mouth daily. metoprolol succinate XL (Toprol-XL) 25 mg Tablet Sustained Release 24 hr Take 1 tablet by mouth daily. ipratropium-albuterol (DUONEB) 0.5 mg-3 mg(2.5 mg base)/3 mL Solution for Nebulization INHALE THE CONTENTS OF 1 VIAL BY NEBULIZATION EVERY 4 HOURS NEEDED Incontinence Pad, Liner, Disp Pad 1 each by Misc.(Non-Drug; Combo Route) route every 4 hours as needed (for incontinence). Patient Reported: There were no vitals filed for this visit. Wt Readings from Last 3 Encounters: 10/07/21 129.2 kg (284 lb 12.8 oz) 09/02/21 128.4 kg (283 lb) 08/20/21 124.4 kg (274 lb 3.2 oz) Documentation of content of discussion: Anxiety/Depression PTSD --Trintellix 20 mg daily --Abilify 5 mg daily for anxiety augmentation --No heart palpitations and feels anxiety has gotten better overall --Mood is stable as well and she is sleeping okay at night --She describes having a hard time sitting still and focusing. Feet and legs restless throughout the day. --Has an inner restlessness, both physically and mentally --States this feels different from her typical anxiety and that is different from restless legs. She actually is not been taking her pramipexole. Type 2 diabetes Obesity --Recently started on liraglutide, current dose at 1.2 mg daily --Side effects: Been getting some nausea and upset stomach. Not every time. And not severe enough for her to want to reduce the dose at this time --Weight loss: Thinks she has lost 7 pounds and is eating less. Does have early satiety as well --Does check blood sugars daily and sugars have been low 200s. --last A1C 6.5% Assessment and Plan: Tracie was seen today for anxiety/depression and diabetes. Overall her mood and anxiety are stable however she has been experiencing several weeks of an internal restlessness and inability to focus. Distinctly different from her typical anxiety. She is on the max dose of Trintellix, and was recently put on Abilify in addition. I wonder if there is a level of serotonin excess. On further discussion, Tracie feels she is the most benefit from Abilify, so we will start with decreasing Trintellix to 10 mg daily. We will have close follow-up to monitor for changes in mood symptoms. For her diabetes continue with current regimen. Patient does not feel her side effects to Victoza warrants a decrease in dose, rather would like to change the timing of administration. Asked her to get an A1c at her earliest convenience as her reported daytime glucose checks are above goal. -Anxiety -Moderate episode of recurrent major depressive disorder PTSD (post-traumatic stress disorder) --Decrease Trintellix from 20mg to 10mg --close follow up for changes in mood symptoms --continue Abilify 5mg daily for anxiety -Class 3 severe obesity due to excess calories with body mass index (BMI) of 45.0 to 49.9 in adult,unspecified whether serious comorbidity present -Type 2 diabetes mellitus without complication, without long-term current use of insulin --Continue Victoza 1.2mg daily --Continue Metformin 1000mg daily Follow Up: --1 month Total time spent associated with the visit including patient discussion and pre/post visit chart activities: 30 minutes * Froilan Crane MD - 01/06/2022 3:00 PM EST The case was discussed in person at the time of the visit or immediately after the visit. The assessment and plan were formulated in discussion with me and I agree with them as documented. I have reviewed the history, physical exam, assessment and plan with the resident. Major issues discussed today: Here for f/u DM and depression DM: started on victoza for obesity and DM. On 1.2mg currently with some nausea but does not want tolower dose at this point and wants to work on timing to see if that helps with nausea Depression: on trintellix and recently started on abilify. Anxiety is much better on this regimen. However, is having trouble with focus and being able to get things done. Feels internally agitated both physical and mental but different than her anxiety Plan: Depression ? If having some serotonin excess (not criteria for syndrome) given this started after starting abilify but does work well for her. Consider decreasing trintellix to 10mg daily or alternatively coulddecrease ability to 2.5 mg daily DM Cont current meds F/u 1 month documented in this encounter Plan of Treatment Upcoming Encounters Date Type Department Care Team (Late st Contact Info) Description 09/05/2024 9:00 AM EDT Office Visit Internal Medicine at [facility] [address] [place] [address] Gema Oliveira, DO [facility] [address] documented as of this encounter Results * (ABNORMAL) Hemoglobin A1c (01/20/2022 2:16 PM EST) Hemoglobin A1c 7.4(H) 4.3 - 5.6 % [facility] Comment: Reference Range: 4.3 - [...] Mellitus, Diabetes Care 2013; 36: Suppl. 1, S67-40 Estimated Average Glucose 167 mg/dL [facility] Comment: eAG equivalents for HbA1c [...] into estimated average glucose values. ??Diabetes Care 2008:31(8):4447-2934. Blood 01/20/2022 2:16 PM EST 01/20/2022 2:20 PM EST Narrative Resulting Agency Comment Spec In Lab Froilan Crane MD CHEMISTRY ORDERABLES [facility] [place] [address] documented in this encounter Visit Diagnoses Diagnosis Type 2 diabetes mellitus without complication, without long-term current use of insulin Anxiety Anxiety state, unspecified Moderate episode of recurrent major depressive disorder Class 3 severe obesity due to excess calories with body mass index (BMI) of 45.0 to 49.9 in adult, unspecified whether serious comorbidity present PTSD (post-traumatic stress disorder) Posttraumatic stress disorder documented in this encounter Care Teams Principal Ios Developer Relationship Specialty Start Date End Date Tasneem Galdamez MD [facility] [address] PCP - General General Internal Medicine 05/20/2004/21 documented as of this encounter
--- OUTSIDE RECORDS SUMMARY | 2024-07-12 00:29 | XMS_ITS | Encounter Summary ---
Author Organization [facility] [address] Care Team Providers Care Roofing Plant Supervisor Name Role Phone Tasneem Galdamez MD Primary Care Provider [phone] Reason for Visit * Reason Onset Date Comments Medication Refill 12/02/2022 Encounter Details Date Type Department Care Team (Late st Contact Info) Description 12/02/2022 Refill [place] [address] Zina Siddiqi CCMA Restless leg Social History Tobacco Use Types [...] or slept in a fdc (including now)? No 10/27/2022 Sex and Gender Information Value Date Recorded Sex Assigned at Not on file Gender Identity Not on file Sexual Orientation Not on file documented as of this encounter Plan of Treatment Upcoming Encounters Date Type Department Care Team (Late st Contact Info) Description 09/05/2024 9:00 AM EDT Office Visit Internal Medicine at [address] [address] Gema Oliveira DO [facility] [address] [address] documented as of this encounter Visit Diagnoses Diagnosis Restless leg Restless legs syndrome (RLS) documented in this encounter Care Teams Roofing Plant Supervisor Relationship Specialty Start Date End Date Tasneem Galdamez MD [facility] [place] [address] PCP - General General Internal Medicine 05/20/2004/21 documented as of this encounter
--- OUTSIDE RECORDS SUMMARY | 2024-07-12 00:29 | XMS_ITS | Encounter Summary ---
Author Organization [facility] Address [facility] [place] [address] Care Team Providers Care Fruit Room Hand Name Role Phone Tasneem Galdamez MD Primary Care Provider [phone] Reason for Referral * Physical Therapy (Routine) - Closed Specialty Diagnoses / Procedures Referred By María Elena mcdaniel Referred To Contact Diagnoses Chronic pain of both hips Radiculopathy of cervical region Corby Sky MD [facility] [place] [address] Unknown None Referral ID Status Reason Start Date Expiration Date V isits Requested Visits Authorized [id number] Closed Evaluate and Treat 10/17/2022 04/15/2023 12 12 Reason for Visit * Reason Comments Hip Pain Bilateral hip pain s tarted about a week ago, also has had left arm numbness for the same amount of time Encounter Details Date Type Department Care Team (Late st Contact Info) Description 10/17/2022 10:40 AM EST Office [place] [address] Corby Sky MD [facility] [place] [address] Chronic pain of both hips; Radiculopathy of cervical region Social History Tobacco Use Types Packs/Day [...] Sign Reading Time Taken Comments Blood Pressure 167/110 10/17/2022 10:55 AM EST Pulse 120 10/17/2022 10:55 AM EST Temperature 37.2 ??C (99 ??F) 10/17/2022 10:55 AM EST Respiratory Rate 16 10/17/2022 10:55 AM EST Oxygen Saturation 96% 10/17/2022 10:55 AM EST Inhaled Oxygen Concentration - - Weight - - Height - - Body Mass Index - - documented in this encounter Patient Instructions * Patient Instructions* Corby Sky MD - 10/17/2022 10:40 AM EST Soft collar for neck, PT, tylenol with ibuprofen; flexeril at bedtime if needed. Monitor BP- call if over 140/90 * Attachments The following attachments cannot be sent through Care Everywhere. * Lumbar Spinal Stenosis ([place]) * Cervical Radiculopathy ([place]) documented in this encounter Progress Notes * Corby Sky MD - 10/17/2022 10:40 AM EST General Internal Medicine - Clinic Note: Urgent Visit Subjective - Tracie Layton is a 51 y.o. female presenting with Hip Pain (Bilateral hip pain started about a week ago, also has had left arm numbness for the same amount of time ) L arm weakness for a week. Shoulder to fingers. Not much pain. Comes and goes. All fingers and thumbs. No neck pain. No injury. No overuse. Hip pain- also a week or so. Went ot [place] last week- flew. Hip pain- bilat, started in [place]. Not walking more than usual, no injury. Postero-lateral- on both sides- goes back on forth, ~= on average. Hip pain is worse standing/walking, + shopping cart sign. Had MRI 2018- L sided sciatica. Mild central stenosis then Patient Active Problem List Diagnosis Code ??? Bilateral occipital neuralgia M54.81 ??? Post-traumatic headache G44.309 ??? Esophageal reflux (GERD) K21.9 ??? Smoking F17.200 ??? PTSD (post-traumatic stress disorder) F43.10 ??? Agoraphobia F40.00 ??? ADD (attention deficit disorder) (ADHD) F98.8 ??? Vitamin D deficiency E55.9 ??? Depression F32.A ??? Adult BMI 40.0-44.9 kg/sq m Z68.41 ??? Mixed stress and urge urinary incontinence N39.46 ??? 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 Osteoarthritis of spine with radiculopathy, lumbar region M47.26 ??? Hypertension, essential, benign I10 ??? Type 2 diabetes mellitus without complication, without long-term current use of insulin E11.9 ??? History of cervical cancer Z85.41 ??? Alcohol abuse F10.10 ??? H/O suicide attempt Z91.51 ??? Obstructive lung disease (generalized) J44.9 ??? Pulmonary nodules R91.8 ??? Anxiety F41.9 ??? Pelvic pain R10.2 ??? S/P laparoscopic assisted vaginal hysterectomy (LAVH) Z90.710 ??? Class 3 severe obesity in adult E66.01 No questionnaires available. Physical Exam Vitals: 10/17/22 1055 BP: (!) 167/110 BP Location (NBP): Left arm Patient Position: Sitting BP Cuff Sizes: Large Adult (32-43 cm) Pulse: (!) 120 Resp: 16 Temp: 37.2 ??C (99 ??F) TempSrc: Oral SpO2: 96% Gen - unformfora HEENT- Neck - + spurling- giving numbness in C6 distr sens off through out hand- subjective. Nl str C6/7/8 Hips- good ROM with pain with int/ext rotation. Tender troch bursa, but also tender in muscles of glut. No numbness/weakness Assessment: ICD-10-CM 1. Chronic pain of both hips M25.551 Referral to Physical Therapy M25.552 G89.29 2. Radiculopathy of cervical region M54.12 Referral to Physical Therapy Hip pain- ? Central LSS vs trochanteric/muscular Plan: PT, soft collar, ibu with tylenol, +/- flexeril. BP not noted during visit,- but likely due at least in part to discomfort. documented in this encounter Plan of Treatment Upcoming Encounters Date Type Department Care Team (Late st Contact Info) Description 09/05/2024 9:00 AM EDT Office Visit Internal Medicine at [address] [address] Gema Oliveira, [facility] [address] [address] Scheduled Referrals Name Type Priority Associated Diagnoses Orde r Schedule Referral to Physical Therapy Outpatient Referral Routine Chronic pain of both hips Radiculopathy of cervical region Ordered: 10/17/2022 documented as of this encounter Visit Diagnoses Diagnosis Chronic pain of both hips Radiculopathy of cervical region Brachial neuritis or radiculitis nos documented in this encounter Care Teams Fruit Room Hand Relationship Specialty Start Date End Date Tasneem Galdamez MD [facility] [place] [address] PCP - General General Internal Medicine 05/20/2004/21 documented as of this encounter
--- OUTSIDE RECORDS SUMMARY | 2024-07-12 00:29 | XMS_ITS | Encounter Summary ---
Author Organization [facility] Address [facility] [place] [address] Care Team Providers Care Deputy Jailer Name Role Phone Tasneem Galdamez MD Primary Care Provider [phone] Reason for Visit * Reason Comments Medication Refill Encounter Details Date Type Department Care Team (Late st Contact Info) Description 10/10/2021 Refill Internal Medicine at [address] [address] Ragini Unger MD [facility] [place] [address] Social History Tobacco Use Types Packs/Day Years [...] EDT Office Visit Internal Medicine at [address] [address] Gema Oliveira DO [facility] [address] [address] documented as of this encounter Visit Diagnoses Not on filedocumented in this encounter Care Teams Deputy Jailer Relationship Specialty Start Date End Date Tasneem Galdamez MD [facility] [place] [address] PCP - General General Internal Medicine 05/20/2004/21 documented as of this encounter
--- OUTSIDE RECORDS SUMMARY | 2024-07-12 00:29 | XMS_ITS | Encounter Summary ---
Author Organization [facility] Address [facility] [place] [address] Care Team Providers Care Supervisor Computer Operations Name Role Phone Tasneem Galdamez MD Primary Care Provider [phone] Reason for Visit * Reason Comments Follow-up Encounter Details Date Type Department Care Team (Late st Contact Info) Description 10/28/2021 2:30 PM EST TH Visit (TeleHealth) Internal Medicine at [address] [address] Tasneem Galdamez MD [facility] [address] Type 2 diabetes mellitus without complication, without long-term current use of insulin; Adult BMI 40.0-44.9 kg/sq m; Moderate episode of recurrent major depressive disorder; Anxiety Social History Tobacco Use Types Packs/Day Years [...] Progress Notes * Tasneem Galdamez MD - 10/28/2021 2:30 PM EST TeleHealth Based Clinical Care Note Tracie Layton verbally consented to conduct this clinical encounter by telephone or video/telehealth. she acknowledges that her insurance may be billed for the care provided, similar to an in person appointment. Tracie Layton is in the following location at the time of the phone call: [place], [place] Reason for visit/chief complaint: No chief complaint on file. Current Medications (which were reviewed during the visit): Medications 10/08/21 0851 Medication Sig Taking? Victoza 2-Anton 0.6 mg/0.1 mL (18 mg/3 mL) Pen Injector ADMINISTER 0.6 MG UNDER THE SKIN DAILY Insulin [place], Disposable, 31 gauge x 1/4 Needle 1 each by [facility].(Non-Drug; Combo Route) route daily. diclofenac (Voltaren) 1 [...] hr Take 1 tablet by mouth daily. estradioL (ESTRACE) 0.5 mg Tablet Take 0.5 mg by mouth daily. ipratropium-albuterol (DUONEB) 0.5 mg-3 mg(2.5 mg base)/3 mL Solution for Nebulization INHALE THE CONTENTS OF 1 VIAL BY NEBULIZATION EVERY 4 HOURS NEEDED Incontinence Pad, Liner, Disp Pad 1 each by [facility].(Non-Drug; Combo Route) route every 4 hours as needed (for incontinence). Patient Reported: There were no vitals filed for this visit. Wt Readings from Last 3 Encounters: 10/07/21 129.2 kg (284 lb 12.8 oz) 09/02/21 128.4 kg (283 lb) 08/20/21 124.4 kg (274 lb 3.2 oz) Physical Exam: General: NAD, playing with her grandchild, speaking in full sentences, more cheerful than prior visits. Documentation of content of discussion: Anxiety/Depression PTSD - At last visit about a month ago she had gone off of Trintellix due to pharmacy issues, but reported it had been helpful with her mood symptoms - I encouraged her to get back on Trintellix and wrote for a longer supply - Her anxiety symptoms however were still poorly controlled, so augmented with Abilify 5mg - Today, she reports being back on the Trintellix and is feeling feeling much better with her mood symptoms. She is not longer getting that fluttering feeling in her chest and panic attack symptoms have significantly reduced. She also has been tolerating the Abilify well and has seen improvement since starting it. - She does not think she will ever be anxiety free, but does feel she is back on a functioning level. Type 2 diabetes Obesity - New diagnosis with A1c of 6.5% in August 2021 - Started on Liraglutide 0.6mg daily at last visit, but actually started last Monday (10/23/2021).She feels comfortable with the injections. She has noticed a decrease in her appetite and earlier satiety. She doesn't weight herself at home, so not sure if she's actually lost weight. - Overall she thinks she has tolerated it well. She reports having one day of low grade fevers and vomiting, while babysitting (baby had similar symptoms) and thinks this was more related to a GI bugthan the Victoza. Assessment and Plan: Tracie was seen today for follow-up. In regards to her mood she is seeing significant improvement with the Trintellix. Since adding Abilify she is also seen significant improvement in her anxiety. We will continue both these with no changes. With regards to her obesity and diabetes, she has been started on Victoza and continues on Metformin. She seems to be tolerating the Victoza well, though has only been on it for about a week. Will increase dose to 1.2 mg daily. We will plan to continue on this dose for the next month, with a 1 month follow-up appointment via telehealth. Diagnoses and all orders for this visit: Type 2 diabetes mellitus without complication, without long-term current use of insulin Adult BMI 40.0-44.9 kg/sq m - liraglutide (VICTOZA) 0.6 mg/0.1 mL (18 mg/3 mL) Pen Injector; Inject 1.2 mg subcutaneously daily. - insulin needles, disposable, 31 gauge x 3/16 Needle; Inject 1 each subcutaneously daily. Indications: diabetes mellitus Moderate episode of recurrent major depressive disorder Anxiety -Continue Trintellix -Continue Abilify Follow Up: -1 month Total time spent associated with the visit including patient discussion and pre/post visit chart activities: 30 minutes * Froilan Crane MD - 10/28/2021 2:30 PM EST The case was discussed in person at the time of the visit or immediately after the visit. The assessment and plan were formulated in discussion with me and I agree with them as documented. I have reviewed the history, physical exam, assessment and plan with the resident. Major issues discussed today: Depression: back on trintillex and added abilify last month and doing much better. Obesity/glucose intolerance: on victoza and metformin Plan: Obesity/glucose intolerance Increase victoza Depression/anxiety Cont current meds documented in this encounter Plan of Treatment Upcoming Encounters Date Type Department Care Team (Late st Contact Info) Description 09/05/2024 9:00 AM EDT Office Visit Internal Medicine at [address] [address] Gema Oliveira, [facility] [address] documented as of this encounter Visit Diagnoses Diagnosis Type 2 diabetes mellitus without complication, without long-term current use of insulin Adult BMI 40.0-44.9 kg/sq m Body Mass Index 40.0-44.9, adult Moderate episode of recurrent major depressive disorder Anxiety Anxiety state, unspecified documented in this encounter Care Teams Supervisor Computer Operations Relationship Specialty Start Date End Date Tasneem Galdamez MD [facility] [address] PCP - General General Internal Medicine 05/20/2004/21 documented as of this encounter
--- OUTSIDE RECORDS SUMMARY | 2024-07-12 00:29 | XMS_ITS | Encounter Summary ---
Author Organization [facility] Address [facility] [place] [address] Care Team Providers Care Scarfing Machine Operator Name Role Phone Tasneem Galdamez MD Primary Care Provider [phone] Encounter Details Date Type Department Care Team (Latest Contact Info) Description 10/27/2022 Travel Social History Tobacco Use Types Packs/Day [...] AM EDT Office [place] [address] Gema Oliveira DO [facility] [address] [address] documented as of this encounter Visit Diagnoses Not on filedocumented in this encounter Care Teams Scarfing Machine Operator Relationship Specialty Start Date End Date Tasneem Galdamez MD [facility] [place] [address] PCP - General General Internal Medicine 05/20/2004/21 documented as of this encounter
--- OUTSIDE RECORDS SUMMARY | 2024-07-12 00:29 | XMS_ITS | Encounter Summary ---
Author Organization [facility] [place] [address] Care Team Providers Care Film Spooler Name Role Phone Tasneem Galdamez MD Primary Care Provider [phone] Reason for Referral * Diagnostic Test (Routine) - Closed Specialty Diagnoses / Procedures Referred By Contac t Referred To Contact Radiology Diagnoses Lumbar back pain Spinal stenosis of lumbar region with neurogenic claudication Procedures MRI Lumbar Spine wo Contrast (Generic) Tasneem Galdamez MD [facility] [place] [address] [place] [address] Referral ID Status Reason Start Date Expiration Date V isits Requested Visits Authorized [id number] Closed Specialty Service Requested 12/07/2022 06/06/2024 1 1 Reason for Visit * Diagnostic Test (Routine) - Closed Specialty Diagnoses / Procedures Referred By Contac t Referred To Contact Radiology Diagnoses Lumbar back pain Spinal stenosis of lumbar region with neurogenic claudication Procedures MRI Lumbar Spine wo Contrast (Generic) Tasneem Galdamez MD [facility] [place] [address] [place] [address] Referral ID Status Reason Start Date Expiration Date V isits Requested Visits Authorized [id number] Closed Specialty Service Requested 12/07/2022 06/06/2024 1 1 Encounter Details Date Type Department Care Team (Latest Contact Info) Description 01/05/2023 1:26 PM EST - 01/05/2023 11:59 PM EST Hospital Encounter MRI at [facility] [place] [address] Ragini Unger MD [facility] [place] [address] Lumbar back pain; Spinal stenosis of lumbar region with neurogenic claudication Discharge Disposition: Home Social History Tobacco Use [...] or slept in a fci (including now)? No 10/27/2022 Sex and Gender Information Value Date Recorded Sex Assigned at Not on file Gender Identity Not on file Sexual Orientation Not on file documented as of this encounter Medications at Time of Discharge Medication Sig Dispensed Refills Start Date End Date Blood-Glucose Meter MiscIndications:Type 2 diabetes mellitus without complication, unspecified whether prison insulin use 1 kit by [facility].(Non-Drug; Combo Route) route 4 times daily. Prefers [...] Pad, Liner, Disp Pad 1 each by [facility].(Non-Drug; Combo Route) route every 4 hours as needed (for incontinence). 200 each 11 10/03/2019 metoprolol succinate XL (Toprol-XL) 25 mg Tablet Sustained Release 24 hr Take 1 tablet by mouth daily. 90 tablet 3 12/28/2022 10/26/2023 blood sugar diagnostic strips StripIndications:Typ e 2 diabetes mellitus without complication, unspecified whether prison insulin use Use as instructed Prefers one touch Ultra, but make sure strips ordered match machine dispensed 100 each 12 12/27/2022 03/22/2023 varenicline (Chantix) 1 mg Tablet TAKE 1 TABLET BY MOUTH TWICE DAILY WITH MEALS THIS MEDICATION SHOULD BE TAKEN IN THE MIDDLE OF YOUR LARGEST MEAL WITH A FULL GLASS OF WATER. 11/29/2022 02/10/2023 benzonatate (Tessalon) 100 mg CapsuleIndications:C ough, persistent Take 1 capsule by mouth 3 times daily as needed for Cough. 30 tablet 12/07/2022 02/10/2023 metFORMIN (Glucophage) 1,000 mg TabletIndications:Ty pe 2 diabetes mellitus without complication, without long-term current use of insulin Take 1 tablet by mouth 2 times daily (with meals). 90 tablet 3 12/07/2022 08/07/2023 semaglutide (Ozempic) 0.25 mg or 0.5 mg(2 mg/1.5 mL) Pen InjectorIndications: type 2 diabetes mellitus Inject 0.25 mg subcutaneously once a week for 30 days, THEN 0.5 mg once a week. Indications: type 2 diabetes mellitus 3 mL 12/07/2022 02/10/2023 pramipexole (MIRAPEX) 0.125 mg TabletIndications:Re stless leg Take 2 tablets by mouth nightly. 180 tablet 1 12/02/2022 05/10/2023 spironolactone (Aldactone) 25 mg Tablet Take 1 tablet by mouth daily. 30 tablet 3 10/27/2022 02/10/2023 cyclobenzaprine (Flexeril) 5 mg Tablet Take 1 [...] mouth daily. 90 tablet 3 05/30/2022 05/16/2023 ProAir HFA 90 mcg/actuation HFA Aerosol InhalerIndications:M ild intermittent asthma without complication,Obstruc tive lung disease (generalized) Inhale 2 puffs into the lungs every 4 hours as needed for Wheezing. 8.5 g 3 05/30/2022 03/20/2023 ipratropium-albutero l (DUONEB) 0.5 mg-3 mg(2.5 mg base)/3 mL Solution for Nebulization INHALE THE CONTENTS OF 1 VIAL BY NEBULIZATION EVERY 4 HOURS NEEDED 180 mL 5 11/27/2019 12/16/2023 documented as of this encounter Progress Notes * Valerie Gastelum RN - 01/02/2023 8:22 AM EST MRI PRE-SEDATION ASSESSMENT NOTE NAME: Tracie Layton AGE: 52 y.o. : 1970 [address] [facility] [address] Female [phone] (home) Telephone Information: Tasneem Galdamez MD None Allergies Allergen Reactions ??? Bactrim [Sulfamethoxazole-Trimethoprim] Anaphylaxis ??? Trimethoprim Anaphylaxis ??? Aleve [Naproxen Sodium] Rash Per neuro team, patient has tolerated ketorolac in the past ??? Keflex [Cephalexin] Other (See Comments) Racing heart ??? Meloxicam Nausea Only ??? Amlodipine Nausea And Vomiting Date/Time of call: January 02, 2023/8:22 AM/ PREVIOUS MRI SCAN? HEIGHT: 175.3 cm WEIGHT: 127.9 kg SCHEDULED SCAN: MRI LUMBAR SPINE WITHOUT CONTRAST [[id number]] SUBJECTIVE: CAN YOU LAY FLAT?: AIRWAY/BREATHING ISSUES?: DO YOU HAVE ANY INVOLUNTARY MOVEMENTS?: (explain) DO YOU HAVE ANY PAIN?: DO YOU TAKE PAIN MED ON A DAILY BASIS?: ASSESSMENT: PLAN: ( ) You must have a tanker truck driver present when you check in. This patient has been informed that they require a tanker truck driver to drive them home after this procedure. In the absence of a tanker truck driver, IR will not be able to sedate for your scan. Pt verbalized understanding of these instructions during the pre-procedure education via phone. Yes [place] of tanker truck driver: Phone number: PRIOR SCAN DATE/S SEDATION TYPE SUCCESSFUL 06/17/05 MRI Unknown ?? 09/19/14 MRI None, Pt came late. Tolerated very well. ??11/23/17 MRI ??Ativan 1 mgs po x 2 ??tolerated well ??01/05/23 MRI L Spine wo ??Ativan 1mg po x 2 ??yes Revised 04/17/18 documented in this encounter Plan of Treatment Upcoming Encounters Date Type Department Care Team (Late st Contact Info) Description 09/05/2024 9:00 AM EDT Office Visit Internal Medicine at [address] [address] Gema Oilveira, [facility] [place] [address] documented as of this encounter Procedures Procedure Name Priority Date/Time Associated Diagnosis Comments MRI LUMBAR SPINE WITHOUT CONTRAST Routine 01/05/2023 3:51 PM EST Lumbar back pain Spinal stenosis of lumbar region with neurogenic claudication documented in this encounter Results * MRI [...] the clinical situation (Reference- Krystlevik Et Al, Spine 2001). Findings: (Prevalence in [...] who have questions please contact the health home care coordinator that requested your imaging first. ? Electronically signed by: Kelechi Gr MD, [facility] ([phone]), at 01/06/2023 9:20 AM Narrative 01/06/2023 9:20 AM EST EXAMINATION: MRI [...] the clinical situation (Reference- Krystlevik Et Al, [id number]). Findings: (Prevalence in patients without low back [...] patients who have questions please contactthe health home care coordinator that requested your imaging first. Ragini Unger MD IM MRI ORDERABLES documented in this encounter Visit Diagnoses Diagnosis Lumbar back pain Lumbago Spinal stenosis of lumbar region with neurogenic claudication Spinal stenosis, lumbar region, with neurogenic claudication documented in this encounter Administered Medications Inactive Administered Medications - up to 3 most recent administrations Medication Order MAR Action Action Date Dose Rate Site LORazepam (Ativan) tablet 1 mg 1 mg, Oral, EVERY 30 MIN PRN, 2 doses, Starting on Denita 01/05/23 at 1355, Until Denita 01/05/23 at 1436, Anxiety, Minimal Sedation per Department of Radiology Adult Minimal Sedation Guidelines: Give 50 minutes prior to scan., Angio/IR (Day of Procedure), Routine Given 01/05/2023 2:36 PM EST 1 mg Given 01/05/2023 1:57 PM EST 1 mg documented in this encounter Care Teams Film Spooler Relationship Specialty Start Date End Date Tasneem Galdamez MD [facility] [place] [address] PCP - General General Internal Medicine 05/20/2004/21 documented as of this encounter
--- OUTSIDE RECORDS SUMMARY | 2024-07-12 00:29 | XMS_ITS | Encounter Summary ---
Author Organization [facility] Address [facility] [place] [address] Care Team Providers Care Coke Production Heater Name Role Phone Tasneem Galdamez MD Primary Care Provider [phone] Encounter Details Date Type Department Care Team (Late st Contact Info) Description 09/06/2022 Telephone [place] [address] Mary Rush, CCMA Social History Tobacco Use Types Packs/Day [...] EDT Office Visit Internal Medicine at [address] [address] Gema Oliveira, [facility] [address] [address] documented as of this encounter Visit Diagnoses Not on filedocumented in this encounter Care Teams Coke Production Heater Relationship Specialty Start Date End Date Tasneem Galdamez MD [facility] [address] [place] [address] PCP - General General Internal Medicine 05/20/2004/21 documented as of this encounter
--- OUTSIDE RECORDS SUMMARY | 2024-07-12 00:29 | XMS_ITS | Encounter Summary ---
Author Organization [facility] Address [facility] [place] [address] Care Team Providers Care Home And School Visitor Name Role Phone Tasneem Galdamez MD Primary Care Provider [phone] Reason for Visit * Reason Comments Diabetes Anxiety Irregular Heart Beat Encounter Details Date Type Department Care Team (Late st Contact Info) Description 03/10/2022 10:00 AM EDT TH Visit (TeleHealth) Internal Medicine at [address] [id number] Tasneem Galdamez MD [facility] [place] [address] Moderate episode of recurrent major depressive disorder; Anxiety; Palpitations; Type 2 diabetes mellitus without complication, without [...] Progress Notes * Tasneem Galdamez MD - 03/10/2022 10:00 AM EDT TeleHealth Based Clinical Care Note Tracie Layton verbally consented to conduct this clinical encounter by telephone or video/telehealth. she acknowledges that her insurance may be billed for the care provided, similar to an in person appointment. Tracie Layton is in the following location at the time of the phone call: [place], [place] Reason for visit/chief complaint: Chief Complaint Patient presents with ??? Diabetes ??? Anxiety ??? Irregular Heart Beat Current Medications (which were reviewed during the visit): Medications 01/06/22 1842 Medication Sig Taking? vortioxetine (Trintellix) 20 mg Tablet Take 1 tablet by mouth daily. metFORMIN XR (Glucophage XR) 500 mg Tablet Sustained Release 24 hr Take 3 tablets by mouth 2 times daily. empagliflozin (Jardiance) 10 mg Tablet Take 1 tablet by mouth daily. ProAir HFA 90 mcg/actuation HFA Aerosol Inhaler Inhale 2 puffs into the lungs every 4 hours as needed for Wheezing. diclofenac (Voltaren) 1 % Gel APPLY TOPICALLY TO THE AFFECTED AREA FOUR TIMES DAILY NEEDED benzonatate (Tessalon) 100 mg Capsule Take by mouth. pramipexole (MIRAPEX) 0.125 mg Tablet TAKE 2 [...] 3.2 oz) Documentation of content of discussion: Type 2 diabetes Obesity --Was on liraglutide (Victoza), current dose at 1.2 mg daily. However, she self discontinued this due to worsening GI upset and vomiting. Since stopping, symptoms resolved. --Average 180-210 in the AM when she checks. Later in the day can be in the 300s. --A1C 3/3 increased to 7.4% (from 6.5) ?? Anxiety/Depression PTSD --At our last visit, she had jitteriness which was concerning for potentially too much serotonin. We did decrease her Trintellix to 10 mg daily. -- Since then she has self discontinued Abilify, and noted the jitteriness to have resolved. Anxiety still present, but she is functional. 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 With this she has noticed increases in her blood pressureand heart rate, as well as palpitations. She reports having episodes of feeling flushed, headache, d iaphoresis and when she checks her heart rate can be in the 120s-130s and blood pressure elevated with systolics to the 150s. When not having this episode her heart rate tends to be more in the 90s and systolics in the 120s. Assessment and Plan: 1. Moderate episode of recurrent major depressive disorder 2. Anxiety Tracie has a longstanding history of depression anxiety, and has been on several different mood stabilizers and trialed many medications. Trintellix seems to have worked the best to control her mood symptoms. Recently had added Abilify to help with the anxiety component, however she developed an increase sense of jitteriness and restlessness. She self discontinued the Abilify and is seeing improvement in the symptoms. While anxiety is present, she is functional. However she is interested withoutthe Abilify going back up to the 20 mg of the antidepressant, which is reasonable. We will increasethat today and follow-up closely. - vortioxetine (Trintellix) 20 mg Tablet; Take 1 tablet by mouth daily. Dispense: 90 tablet; Refill: 3 3. Palpitations She has been experiencing episodic heart racing, hypertension, flushing and headaches. It is most likely that there is an anxiety component to this. Reassured by negative stress test last winter. Shemay be going in and out of SVT versus A. fib, to further evaluate this we will send for a Zio patch. Although low suspicion for pheo, will assess with 24-hour urine collection, given her symptoms areso episodic. - Ziopatch 48 Hrs-15 Days; Future - Catecholamines Frac Free urine, 24 hr; Future - Metanephrines, Fractionated, urine, 24 hour; Future 4. Type 2 diabetes mellitus without complication, without long-term current use of insulin Patient discontinued liraglutide, as it was causing vomiting and GI upset. Home blood sugar checks are above goal, and A1c has been rising. Encouraged continued lifestyle changes, but will also increase metformin to 1500 mg daily. We will also add Jardiance. Patient denies history of frequent UTI. We will plan to recheck A1c at next follow-up. - metFORMIN XR (Glucophage XR) 500 mg Tablet Sustained Release 24 hr; Take 3 tablets by mouth 2 times daily. Dispense: 180 tablet; Refill: 3 - empagliflozin (Jardiance) 10 mg Tablet; Take 1 tablet by mouth daily. Dispense: 90 tablet; Refill: 0 Follow Up: 2-3 months Total time spent associated with the visit including patient discussion and pre/post visit chart activities: 30 minutes * Eb Whitney MD - 03/10/2022 10:00 AM EDT Tracie Layton is a 51 y.o. who presents for follow-up of chronic medical issues. She stopped taking aripiprazole as she was worried it was causing her to feel restless, and doing so has resolved these symptoms. She continues to have self resolving episodes of headache, palpitations, anxiety. She stopped the liraglutide because she started throwing up. - go back up to vortioxetine 20mg now that she is off the aripiprazole, this higher antidepressant dose was more effective for her than 10mg - although suspicion is low, will assess for pheo with 24 hour urine collection given her episodic symptoms - assess palpitations with ambulatory heart rate monitoring - d/c liraglutide, increase metformin, start SGLT2i - follow-up in a few months The case was discussed at the time of the visit. I have reviewed the history, physical exam, assessment, and plan with the resident. The assessment and plan were formulated in discussion with me and I agree with them as documented, except as detailed in my attestation. I was present in the same building as the patient and provider at the time of the visit. documented in this encounter Plan of Treatment Upcoming Encounters Date Type Department Care Team (Late st Contact Info) Description 09/05/2024 9:00 AM EDT Office Visit Internal Medicine at [address] [address] Gema Oliveira DO [facility] [address] [address] documented as of this encounter Visit Diagnoses Diagnosis Moderate episode of recurrent major depressive disorder Anxiety Anxiety state, unspecified Palpitations Type 2 diabetes mellitus without complication, without long-term current use of insulin documented in this encounter Care Teams Home And School Visitor Relationship Specialty Start Date End Date Tasneem Galdamez MD [facility] [address] [address] PCP - General General Internal Medicine 05/20/2004/21 documented as of this encounter
--- OUTSIDE RECORDS SUMMARY | 2024-07-12 00:29 | XMS_ITS | Encounter Summary ---
Author Organization [facility] [place] [address] Care Team Providers Care Hotel Service Supervisor Name Role Phone Tasneem Galdamez MD Primary Care Provider [phone] Reason for Visit * Reason Comments Follow-up Stress results Left Shoulder Pain When lying down at n ight; when lifting heavy items (ie grandson) Encounter Details Date Type Department Care Team (Late st Contact Info) Description 10/07/2021 3:30 PM EST Office [place] [address] Tasneem Galdamez MD [facility] [place] [address] Moderate episode of recurrent major depressive disorder; PTSD (post-traumatic stress disorder); Anxiety; Type 2 diabetes mellitus without complication, without [...] Sign Reading Time Taken Comments Blood Pressure 134/86 10/07/2021 3:30 PM EST Pulse 96 10/07/2021 3:30 PM EST Temperature 37.2 ??C (98.9 ??F) 10/07/2021 3 :30 PM EST Respiratory Rate - - Oxygen Saturation 98% 10/07/2021 3:3 0 PM EST Inhaled Oxygen Concentration - - Weight 129.2 kg (284 lb 12.8 oz) 10/07/2021 3:30 PM EST with shoes on Height 175.3 cm (5' 9) 10/07/2021 3:30 PM EST approx - patient reported Body Mass Index 42.06 10/07/2021 3:30 PM EST documented in this encounter Progress Notes * Tasneem Galdamez MD - 10/07/2021 3:30 PM EST Subjective: Patient ID: Tracie Layton is a 50 y.o. female. HPI Chief Complaint Patient presents with ??? Follow-up Stress results ??? Left Shoulder Pain When lying down at night; when lifting heavy items (ie grandson) Tracie was in the ED on 08/17 with chest pain and SOB. At that time her troponin was negative and EKGwith non-specific T-wave flattening V4-V6, II and aVF. She was discharged with a baby aspirin and stress test. In the mean time, she had clinic follow up where she reported chest pressure across her chest with ambulation. She reports baseline SOB, which she says hasn't changed. It also was discovered that shehas been off her Trintellix for depression for 2-3 weeks as the pharmacy said she had no refills. She also was still smoking 1/2 pack a day but motivated to stop. At that visit she was started on metoprolol 25mg daily and scheduled for the stress test. Was also prescribed Chantix for smoking cession and refilled her Trintellix. Her stress test showed EF of 60%. She was asymptomatic during the stress portion and HDS. Overall, it was a normal dubutamine stress echo. Currently, she still has episodes of racing heart happening couple times a day. Symptoms will come at rest and are associated with sweating and clamminess. She will soothe herself by rocking back andforth. She reports actual chest pain and pressure has mostly gone away. She successfully quit smoking for the past 5 weeks. She has done this without medical aid (Chantix was not covered by insurance). With this her breathing has significantly improved. She does feel like her anxiety is out of control most times. She notes that she has tried bupropionand Atarax without success. In regards to her Trintellix she remains off of it at this time, primary problem being her pharmacy would never have it in stock when she needed a refill and so she subsequently was going on and off of it for weeks at a time while the pharmacy filled it. When she was on the Trintellix she felt like her mood was significantly improved and she got benefit from it. At her last visit she is also to found to have new diagnosis of diabetes with an A1c of 6.5%. Currently only on Metformin. She is also struggling with weight gain since quitting smoking. Review of Systems Constitutional: Positive for diaphoresis (associated with heart racing episodes). Respiratory: Positive for chest tightness. Negative for cough, shortness of breath and wheezing. Cardiovascular: Negative for chest pain and leg swelling. Heart racing Psychiatric/Behavioral: Positive for sleep disturbance. The patient is nervous/anxious. Objective: BP 134/86 (BP Location (NBP): Right arm, Patient Position: Sitting, BP Cuff Sizes: Large Adult (32-43 cm)) Comment (BP Cuff Sizes): Long cuff Pulse 96 Temp 37.2 ??C (98.9 ??F) (Oral) Ht 175.3 cm (5' 9) Comment: approx - patient reported Wt 129.2 kg (284 lb 12.8 oz) Comment: with shoes on LMP 10/06/2019 (Exact Date) SpO2 98% BMI 42.06 kg/m?? PHQ-9 QUESTIONNAIRE SCORE ONLY (AMB) 10/29/2020 PHQ - 9 Score (Patient) 12 (Moderate Depression) Some recent data might be hidden Wt Readings from Last 3 Encounters: 10/07/21 129.2 kg (284 lb 12.8 oz) 09/02/21 128.4 kg (283 lb) 08/20/21 124.4 kg (274 lb 3.2 oz) Physical Exam: Gen: NAD; anxious appearing, at times rocking back and forth, little eye contact made. CV: Regular rhythm, borderline tachycardic, no murmurs/rubs/gallops Resp: CTAB, no crackles/wheezes/ronchi, normal work of breathing Abd:soft, non-tender to palpation, no rebound or guarding Neuro: no focal deficits noted, CN II-XII grossly intact, moves all extremities spontaneously Assessment and Plan: Tracie was seen today for follow-up. See detailed plan below Diagnoses and all orders for this visit: Moderate episode of recurrent major depressive disorder PTSD (post-traumatic stress disorder) Anxiety -Anxiety and panic attacks is likely the etiology of her chest racing. Reassuring that her stress test was normal. -Has trialed several SSRIs and SNRIs in the past with no success is also tried Atarax and bupropionwith no success. -Today will facilitate her getting back on the Trintellix by ordering a 3-month supply at a time and contact antiaging pharmacy to ensure they have it in stock when nearing refill time. We will augment this with low-dose Abilify and attempt to get her anxiety under better control - ARIPiprazole (Abilify) 5 mg Tablet; Take 1 tablet by mouth daily. - vortioxetine (Trintellix) 20 mg Tablet; Take 20 mg by mouth daily. Type 2 diabetes mellitus without complication, without long-term current use of insulin - liraglutide (VICTOZA) 0.6 mg/0.1 mL (18 mg/3 mL) Pen Injector; Inject 0.6 mg subcutaneously daily. -New diagnosis with A1c of 6.5% in August 2021 -We will start with 1 month of the 0.6 mg liraglutide for diabetes and to augment weight loss -Patient felt comfortable with once daily subcu injection, stating she is giving herself subcu injections in the past Obstructive lung disease (generalized) --Having difficulties with insurance paying for her albuterol, states she has a supply at home but is running out --We will continue to work on prior Auth --Follow-up in 1 month * Froilan Crane MD - 10/07/2021 3:30 PM EST The case was discussed in person at the time of the visit or immediately after the visit. The assessment and plan were formulated in discussion with me and I agree with them as documented. I have reviewed the history, physical exam, assessment and plan with the resident. Major issues discussed today: Pt here for f/u ED visit on 08/17 for chest pain, sob. Has normal stress echo. Is still having some heart racing but no chest pain currently. Breathing is better. Heart racing happens with sweaty palms and improves with rocking back and forth. Was on trintellix but frequently pharmacy didn't have itso she stopped. MD: on metformin 500 bid. A1c 6.5. Concerns for medications Plan: DM and weight loss -trial glp1 Anxiety -trial augmentation with abilify documented in this encounter Plan of Treatment Upcoming Encounters Date Type Department Care Team (Late st Contact Info) Description 09/05/2024 9:00 AM EDT Office Visit Internal Medicine at [address] [address] Gema Oliveira DO [facility] [address] [place] [address] documented as of this encounter Visit Diagnoses Diagnosis Moderate episode of recurrent major depressive disorder PTSD (post-traumatic stress disorder) Posttraumatic stress disorder Anxiety Anxiety state, unspecified Type 2 diabetes mellitus without complication, without long-term current use of insulin Obstructive lung disease (generalized) Chronic airway obstruction, not elsewhere classified documented in this encounter Care Teams Hotel Service Supervisor Relationship Specialty Start Date End Date Tasneem Galdamez MD [facility] [address] [place] [address] PCP - General General Internal Medicine 05/20/20 6/2 06/11 documented as of this encounter
--- OUTSIDE RECORDS SUMMARY | 2024-07-12 00:29 | XMS_ITS | Encounter Summary ---
Author Organization [facility] [place] [address] Care Team Providers Care Continuum Of Care Manager Name Role Phone Tasneem Galdamez MD Primary Care Provider [phone] Reason for Visit * Reason Onset Date Comments Medication Refill 01/11/2022 Encounter Details Date Type Department Care Team (Late st Contact Info) Description 01/11/2022 Refill Internal Medicine at [address] [address] Shirin Gonzalez CCMA Mild intermittent asthma without complication; Obstructive lung [...] EDT Office Visit Internal Medicine at [address] [address] Gema Oliveira, [facility] [place] [address] documented as of this encounter Visit Diagnoses Diagnosis Mild intermittent asthma without complication Unspecified asthma Obstructive lung disease (generalized) Chronic airway obstruction, not elsewhere classified documented in this encounter Care Teams Continuum Of Care Manager Relationship Specialty Start Date End Date Tasneem Galdamez MD [facility] [place] [address] PCP - General General Internal Medicine 05/20/2004/21 documented as of this encounter
--- OUTSIDE RECORDS SUMMARY | 2024-07-12 00:29 | XMS_ITS | Encounter Summary ---
Author Organization [facility] [place] [address] Care Team Providers Care Low Raw Sugar Cutter Name Role Phone Tasneem Galdamez MD Primary Care Provider [phone] Reason for Referral * Surgical (Routine) - Closed Specialty Diagnoses / Procedures Referred By Contac t Referred To Contact Neurosurgery Diagnoses Chronic low back pain, unspecified back pain laterality, unspecified whether sciatica present Cherie Maciel MD [facility] [place] [address] Abby Solis MD [address] [place] [id number] Referral ID Status Reason Start Date Expiration Date V isits Requested Visits Authorized [id number] Closed Consult, Test & Treat 10/27/2022 04/25/2023 1 1 * Chiropractic (Routine) - Closed Specialty Diagnoses / Procedures Referred By Contac t Referred To Contact Diagnoses Neck pain Cherie Maciel MD [facility] [place] [address] Nehemiah Lam DC [address] [place] [address] Referral ID Status Reason Start Date Expiration Date V isits Requested Visits Authorized [id number] Closed Consult, Test & Treat 10/27/2022 04/25/2023 1 1 Reason for Visit * Reason Comments Hypertension Encounter Details Date Type Department Care Team (Late st Contact Info) Description 10/27/2022 8:00 AM EST Office Visit Internal Medicine at [facility] [address] [place] [address] Cherie Maciel MD [facility] [place] [phone] Neck pain; Palpitations; Hypertension, unspecified type; Chronic low back pain, unspecified back pain laterality, unspecified whether sciatica present Social History Tobacco Use Types Packs/Day Years [...] Reading Time Taken Comments Blood Pressure 143/89 10/27/2022 8:00 AM EST Pulse 115 10/27/2022 8:00 AM EST Temperature 36.9 ??C (98.5 ??F) 10/27/2022 8:00 AM ES T Respiratory Rate 16 10/27/2022 8:00 AM EST Oxygen Saturation 100% 10/27/2022 8:00 AM EST Inhaled Oxygen Concentration - - Weight 128.4 kg (283 lb) 10/27/2022 8:00 AM EST Height 175.3 cm (5' 9) 10/27/2022 8:00 AM EST Body Mass Index 41.79 10/27/2022 8:00 AM EST documented in this encounter Patient Instructions * Patient Instructions* Cherie Maciel MD - 10/27/2022 8:00 AM EST I am ordering an xray for your neck and have placed referral to chiropractor I will put a referral to your neurosurgeon For your blood pressure and heart rate, let's restart your metoprolol Let's start a new medication called spironolactone to help your blood pressure, we should check your labs in about two weeks to check your potassium Please come back in about a month for follow up documented in this encounter Progress Notes * Cherie Maciel MD - 10/27/2022 8:00 AM EST ESTABLISHED PATIENT VISIT I. HISTORY a. Reason(s) for Visit: Tracie Layton 51 y.o. female who presents today due to complaint(s) of: Chief Complaint Patient presents with ??? Hypertension b. History of Present Illness: Here with multiple issues including high blood pressure and heart rate, neck pain, Left arm numbness and back pain #HTN Was seen in [facility] On 10/17 for acute visit for neck and back pain and BP was 167/110 At last visit in August, was switched from metoprolol to carvedilol, did not tolerate this due to nausea. She has not taken carvedilol for several weeks and is not taking her metoprolol Checks her BP two or three times a week with a wrist cuff, typically is 150/100 and she notes pulsewill be high Denies any flushing, chest pain or other symptoms with her high blood pressure or pulse Wonders if pulse is sometimes high because of anxiety BP today is 140/89 Previously did not tolerate amlodipine Describes good adherence to lisinopril and HCTZ #neck pain #L arm numbness L arm numbness - entire arm and hand will go numb. Has been going on for a couple of weeks, startedthe day after she went to [place] (10/09). Wonders if it is from the plane melani. If continuously move it won't go numb, but if she leaves it in one position will go numb Was told to wear a neck brace, but this gave her headaches and it couldn't wear it. Was given flexeril which didn't really help. Taking two ibuprofen/two tylenol Has chronic neck pain No recent injuries, but had previously severe case of whiplash and fell when she was in a hammock Denies any weakness She is not currently working Has agoraphobia Has had physical therapy, has a referral to [facility] therapy but due to her agoraphobia, it is sometimes difficult for her to go to appointments Would like to see Dr. Lam in [place], chiropracter #chronic back pain Would also like to see Dr. Dickson and was getting injections previously for her hips/back Has not been seen by her for a couple of years and would like referral again Pain is more in low back Walking makes it worse, Pushing grocery cart makes it better (leaning forwrad) Has urinary incontinence that is not new No recent weight loss Will get numbness in the front of her legs if she walks a lot (this has been there for a long time) mathew ROS (positives in bold): Constitutional - fevers, chills, body aches, weight loss or gain, fatigue Cardiovascular - chest pain, palpitations, angina Respiratory - SOB, BAUMANN, wheeze, cough, sputum production HEENT - diffculty swallowing, hearing, nasal congestion or postnasal drip Gastrointestinal - abdominal pain, nausea, vomiting, GERD, constipation, diarrhea, blood in stool, dark tarry stools, tenesmus Genitourinary - abnormal discharge, lumps, masses or nodules present, urinary frequency, urgency, burning, hematuria Endocrine - polydipsia, polyuria, palpitations Musculoskeletal - See HPI Neurological - numbness, tingling, loss of sensation, weakness or function of limbs, headaches Psychiatric - sadness, depression, anxiety, anhedonia, suicidal ideation Heme/Lymph - bleeding, lymph node swelling, night sweats Eyes - visual changes, blurriness or visual loss Integument - lesions, lumps or nodules noted, rashes d. PM Patient Active Problem List Diagnosis ??? Type 2 diabetes mellitus without complication, without long-term current use of insulin HbA1c 5.9% started metformin 09/2018 ??? Hypertension, essential, benign Started lisinopril 2017 ??? Adult BMI 40.0-44.9 kg/sq m ??? Depression hx suicide attempt Past meds: Prozac, Lexapro, Effexor, Clonazepam, Wellfleet. None worked. Has chronic up and down daily. Currently on Wellbutrin for assistance with smoking cessation. Considering online counseling. ??? Obstructive lung disease (generalized) PFTs 02/2016: FEV1 is reduced. The FEV1/FVC ratio is reduced. ?? Impression: [x] Mild obstructive ventilatory defect (FEV1 >70% predicted) [x] Reduced FVC suggests possible restriction. Can be confirmed by lung volumes. ??? Alcohol abuse ??? Osteoarthritis of spine with radiculopathy, lumbar region ??? Esophageal reflux (GERD) On PPI. EGD 06/2017 showed minor inflammation without evidence of Garza's. ??? PTSD (post-traumatic stress disorder) nightmares ??? Agoraphobia ??? ADD (attention deficit disorder) (ADHD) ??? Vitamin D deficiency ??? H/O suicide attempt Overdose in 1999 ??? Erosion of vaginal mesh ??? Mixed stress and urge urinary incontinence ??? Post-traumatic headache ??? Bilateral occipital neuralgia ??? History of cervical cancer s/p LEEP??? in [place] ??? Class 3 severe obesity in adult ??? Pelvic pain ??? S/P laparoscopic assisted vaginal hysterectomy (LAVH) ??? Anxiety ??? Pulmonary nodules [address] 12/20/2019, consider repeat CT in 1 year 1. 5 mm oval nodular density LEFT upper lobe 2. indeterminate subpleural 5 mm nodule is seen in the LEFT lower lobe 3. 5 mm peripherally located RIGHT lower lobe pulmonary nodule ??? Smoking Soc: Social History Tobacco Use ??? Smoking status: Every Day Packs/day: 0.50 Years: 30.00 Pack years: 15.00 Types: Cigarettes ??? Smokeless tobacco: Never ??? Tobacco comments: Quit 5 wks ago Substance Use Topics ??? Alcohol use: Yes Comment: Very rare II. PHYSICAL EXAM: BP 143/89 (BP Location (NBP): Left arm, Patient Position: Sitting, BP Cuff Sizes: Large Adult (32-43 cm)) Pulse (!) 115 Temp 36.9 ??C (98.5 ??F) Resp 16 Ht 175.3 cm (5' 9) Wt 128.4 kg (283lb) LMP 10/06/2019 (Exact Date) SpO2 100% BMI 41.79 kg/m?? General: alert, oriented, in no acute distress HEENNT: atraumatic, normocephalic Cardiovascular: tachycardic (low 100s), regular rhythm, normal S1/S2, no murmurs Lungs: chest symmetric, normal effort, CTABL MSK: midline cervical spine tenderness to palpation, negative Spurlings Neurologic: 5/5 upper and lower extremity strength, sensation intact to light touch Psychologic: normal affect and thought content, good judgement and reasoning, no abnormal behavior during the exam III. ASSESSMENT/PLAN:Tracie Layton 51 y.o. female presents for acute visit with several concerns. Please see plan below; #Hypertension #tachycardia BP continues to be poorly controlled, added back metoprolol today at previous dose of 25 mg daily and started spironolactone as adjunctive therapy Will have her get follow up BMP in two weeks and return in one month for follow up Unclear etiology of tachycardia, ECG today shows NSR and HR of 95 #Neck pain #L arm numbness - L arm numbness seems MSK in nature, given focal tenderness to palpation along cervical spine and no prior imaging, will obtain cervcial spine xrays - referral placed to chiropractor per pt request #low back pain - wonder about spinal stenosis given description of symptoms improving with bending over, referral placed to prior neurosurgeon per pt request Meds reconciled * Froilan Crane MD - 10/27/2022 8:00 AM EST The case was discussed in person at the time of the visit or immediately after the visit. The assessment and plan were formulated in discussion with me and I agree with them as documented. I have reviewed the history, physical exam, assessment and plan with the resident. Major issues discussed today: Pt having ongoing chronic neck pain. Having some L arm numbness that comes on with certain positions. Uses ibuprofen. Has referral to PT but has had trouble going because of agoraphobia. Is wanting to go to chiropractor Having low back pain that gets better with leaning forward. Wanting to see neurosurgery at [facility] which she has seen before with injections. HTN: 150s/100s at home. Was changed to carvedilol at last visit. Does have some palpitations. Ziopatch only was on for a couple days. States that carvedilol made her nauseated so stopped it but also not taking metoprolol. Exam Tachycardiac but regular TTP along cervical spine, turning head to left had pain, Equal strength Plan: Neck pain Given midline tenderness will get neck films However, likely muscular skeletal Refer to chiropractor Back pain Refer to NS HTN Will restart metoprolol Consider spironolactone documented in this encounter Plan of Treatment Upcoming Encounters Date Type Department Care Team (Late st Contact Info) Description 09/05/2024 9:00 AM EDT Office [place] [address] Gema Oliveira, [facility] [place] [address] Scheduled Referrals Name Type Priority Associated Diagnoses Orde r Schedule Referral to Chiropractic Outpatient Referral Routine Neck pain Ordered: 10/27/2022 Referral to Neurosurgery Outpatient Referral Routine Chronic low back pain, unspecified back pain laterality, unspecified whether sciatica present Ordered: 10/27/2022 documented as of this encounter Procedures Procedure Name Priority Date/Time Associated Diagnosis Comments EKG 12-LEAD Routine 10/27/2022 8:42 AM EST Palpitations documented in this encounter Results * EKG 12 Lead (10/27/2022 8:42 AM EST) Ventricular rate 95 BPM MUSE SYSTEM Atrial Rate 95 BPM MUSE SYSTEM P-R Interval 128 ms MUSE SYSTEM QRS Duration 78 ms MUSE SYSTEM Q-T Interval 376 ms MUSE SYSTEM QTC Calculated (Bezet) 472 ms MUSE SYSTEM Calculated P Wheeler 59 degrees MUSE SYSTEM Calculated R Wheeler 27 degrees MUSE SYSTEM Calculated T Wheeler -3 degrees MUSE SYSTEM INTERPRETATION Normal sinus rhythm Nonspecific ST and T wave abnormality Prolonged QT Abnormal ECG When compared with ECG of 20-AUG-2021 11:27, No significant change was found I personally reviewed the tracing and edited the fellows interpretation Confirmed by fellow MD Aydin, Monet ([id number]) on 10/27/2022 1:48:22 PM Confirmed by Margarita Arzola ([id number]) on 10/27/2022 2:18:44 PM MUSE SYSTEM 10/27/2022 8:42 AM EST 10/27/2022 2:18 PM EST Froilan Crane MD ECG ORDERABLES MUSE SYSTEM documented in this encounter Visit Diagnoses Diagnosis Neck pain Cervicalgia Palpitations Hypertension, unspecified type Chronic low back pain, unspecified back pain laterality, unspecified whether sciatica present documented in this encounter Care Teams Low Raw Sugar Cutter Relationship Specialty Start Date End Date Tasneem Galdamez MD [facility] [address] [address] PCP - General General Internal Medicine 05/20/2004/21 documented as of this encounter
--- OUTSIDE RECORDS SUMMARY | 2024-07-12 00:29 | XMS_ITS | Encounter Summary ---
Author Organization [facility] Address [facility] [place] [address] Care Team Providers Care Medical Aides Teacher Name Role Phone Tasneem Galdamez MD Primary Care Provider [phone] Reason for Visit * Reason Comments Medication Refill Encounter Details Date Type Department Care Team (Late st Contact Info) Description 11/29/2022 Refill Internal Medicine at [facility] [address] [place] [address] [facility] [place] [address] Restless leg Social History Tobacco Use Types [...] AM EDT Office Visit Internal Medicine at [address] [id number] Gema Oliveira DO [facility] [address] [address] documented as of this encounter Visit Diagnoses Diagnosis Restless leg Restless legs syndrome (RLS) documented in this encounter Care Teams Medical Aides Teacher Relationship Specialty Start Date End Date Tasneem Galdamez MD [facility] [place] [address] PCP - General General Internal Medicine 05/20/2004/21 documented as of this encounter
--- OUTSIDE RECORDS SUMMARY | 2024-07-12 00:29 | XMS_ITS | Encounter Summary ---
Author Organization [facility] [place] [address] Care Team Providers Care Surgical Supervisor Name Role Phone Tasneem Galdamez MD Primary Care Provider [phone] Reason for Visit * Diagnostic Test (Routine) - Closed Specialty Diagnoses / Procedures Referred By Contac t Referred To Contact Radiology Diagnoses Lumbar back pain Spinal stenosis of lumbar region with neurogenic claudication Procedures MRI Lumbar Spine wo Contrast (Generic) Tasneem Galdamez MD [facility] [place] [address] [place] [address] Referral ID Status Reason Start Date Expiration Date V isits Requested Visits Authorized [id number] Closed Specialty Service Requested 12/07/2022 06/06/2024 1 1 Encounter Details Date Type Department Care Team (Latest Contact Info) Description 01/05/2023 1:26 PM EST - 01/05/2023 11:59 PM EST Hospital [place] [address] Ragini Unger MD [facility] [place] [address] Discharge Disposition: Home Social History Tobacco Use [...] 2 diabetes mellitus without complication, unspecified whether senior care insulin use [address] [facility]Non-Drug; Combo Route) route 4 times daily. Prefers [...] Pad, Liner, Disp Pad [address] [facility]Non-Drug; Combo Route) route every 4 hours as needed (for incontinence). 200 each 10/03/2019 metoprolol succinate XL (Toprol-XL) 25 mg Tablet Sustained Release 24 hr Take 1 tablet by mouth daily. 90 tablet 3 12/28/2022 10/26/2023 blood sugar diagnostic strips StripIndications:Typ e 2 diabetes mellitus without complication, unspecified whether senior care insulin use Use as instructed Prefers one [...] EDT Office Visit Internal Medicine at [address] [address] Gema Oliveira, [facility] [place] [address] documented as of this encounter Procedures Procedure [...] who have questions please contact the health animal care supervisor that requested your imaging first. ? Narrative [...] had been present on the study of 2017, largely secondary to worsening hypertrophic facet arthropathy. [...] the clinical situation (Reference- Judd Et Al, [id number]). Findings: (Prevalence in patients without low back [...] patients who have questions please contactthe health animal care supervisor that requested your imaging first. Ragini Unger MD IMG MRI ORDERABLES documented in this encounter Visit Diagnoses Not on filedocumented in this encounter Care Teams Surgical Supervisor Relationship Specialty Start Date End Date Tasneem Galdamez MD [facility] [place] [address] PCP - General General Internal Medicine 05/20/2004/21 documented as of this encounter
--- OUTSIDE RECORDS SUMMARY | 2024-07-12 00:29 | XMS_ITS | Encounter Summary ---
Author Organization [facility] Address [facility] [place] [address] Care Team Providers Care Blueprint Engineer Name Role Phone Tasneem Galdamez MD Primary Care Provider [phone] Reason for Visit * Diagnostic Test (Routine) - Closed Specialty Diagnoses / Procedures Referred By María Elena mcdaniel Referred To Contact Cardiology Diagnoses Palpitations Procedures Ziopatch 48 Hrs-15 Days Tasneem Galdamez MD [facility] [place] [address] [facility] [place] [address] Referral ID Status Reason Start Date Expiration Date V isits Requested Visits Authorized [id number] Closed Specialty Service Requested 06/09/2022 10/10/2022 1 1 Encounter Details Date Type Department Care Team (Latest Contact Info) Description 06/09/2022 10:30 AM EDT - 06/09/2022 11:59 PM EDT Hospital Encounter [place] [address] Eb Whitney MD [facility] [place] [address] Palpitations Discharge Disposition: Home Social History Tobacco Use [...] Sig Dispensed Refills Start Date End Date Advair Diskus 100-50 mcg/dose Disk with DeviceIndications:Mil d intermittent asthma without complication Inhale 1 puff into the lungs every 12 hours. Brand name 1 each 12 05/30/2022 diclofenac (Voltaren) 1 % Gel APPLY TOPICALLY TO THE AFFECTED AREA FOUR TIMES DAILY NEEDED 100 g 3 10/12/2021 Incontinence Pad, Liner, Disp Pad 1 each by [facility].(Non-Drug; Combo Route) route every 4 hours as needed (for incontinence). 200 each 11 10/03/2019 hydroCHLOROthiazide (Hydrodiuril) 25 mg TabletIndications:Ess ential hypertension Take 1 tablet by mouth daily. 90 tablet 3 05/30/2022 08/07/2023 lisinopriL (Zestril) 40 mg TabletIndications:Ess ential hypertension Take 1 tablet by mouth daily. 90 tablet 3 05/30/2022 05/16/2023 omeprazole (PriLOSEC) 40 mg Capsule, Delayed Release(E.C.)Indicati ons:Gastroesophageal reflux disease without esophagitis Take 1 capsule by mouth daily. 90 capsule 3 05/30/2022 06/14/2023 metoprolol succinate XL (Toprol-XL) 25 mg Tablet Sustained Release 24 hrIndications:Exertio nal chest pain Take 1 tablet by mouth daily. 30 tablet 12 05/30/2022 08/26/2022 pramipexole (MIRAPEX) 0.125 mg TabletIndications:Res tless leg Take 2 tablets by mouth nightly. 60 tablet 05/30/2022 11/29/2022 vortioxetine (Trintellix) 20 mg TabletIndications:Mod erate episode of recurrent major depressive disorder Take 1 tablet by mouth daily. 90 tablet 3 05/30/2022 05/16/2023 metFORMIN XR (Glucophage XR) 500 mg Tablet Sustained Release 24 hrIndications:Type 2 diabetes mellitus without complication, without long-term current use of insulin Take 3 tablets by mouth 2 times daily. 180 tablet 3 05/30/2022 08/26/2022 ProAir HFA 90 mcg/actuation HFA Aerosol InhalerIndications:Mi ld intermittent asthma without complication,Obstruct malcolm lung disease (generalized) Inhale 2 puffs into the lungs every 4 hours as needed for Wheezing. 8.5 g 3 05/30/2022 03/20/2023 empagliflozin (Jardiance) 10 mg TabletIndications:Typ e 2 diabetes mellitus without complication, without long-term current use of insulin Take 1 tablet by mouth daily. 90 tablet 03/10/2022 08/26/2022 benzonatate (Tessalon) 100 mg Capsule Take by mouth. 07/11/2021 10/17/2022 ipratropium-albuterol (DUONEB) 0.5 mg-3 mg(2.5 mg base)/3 mL Solution for Nebulization INHALE THE CONTENTS OF 1 VIAL BY NEBULIZATION EVERY 4 HOURS NEEDED 180 mL 5 11/27/2019 12/16/2023 documented as of this encounter Plan of Treatment Upcoming Encounters Date Type Department Care Team (Late st Contact Info) Description 09/05/2024 9:00 AM EDT Office Visit Internal Medicine at [place] [phone] Gema Oliveira, [facility] [place] [address] documented as of this encounter Procedures Procedure Name Priority Date/Time Associated Diagnosis Comments ZIOPATCH LOST Routine 06/09/2022 10:49 AM EDT Palpitations documented in this encounter Results * Ziopatch Lost (06/09/2022 10:49 AM EDT) Narrative Dicom, Auditing User - 08/12/2022 1:42 PM EDT The ziopatch was lost. No data collected. Eb Whitney MD CARDIAC SERVICES ORD ERABLES documented in this encounter Visit Diagnoses Diagnosis Palpitations documented in this encounter Care Teams Blueprint Engineer Relationship Specialty Start Date End Date Tasneem Galdamez MD [facility] [place] [address] PCP - General General Internal Medicine 05/20/2004/21 documented as of this encounter
--- OUTSIDE RECORDS SUMMARY | 2024-07-12 00:29 | XMS_ITS | Encounter Summary ---
Author Organization [facility] Address [facility] [place] [place] [id number] Care Team Providers Care Tar And Ammonia Pump Operator Name Role Phone Tasneem Galdamez MD Primary Care Provider [phone] Reason for Referral * Consultation (Routine) - Closed Specialty Diagnoses / Procedures Referred By María Elena mcdaniel Referred To Contact Diagnoses Lumbar back pain Tasneem Galdamez MD [facility] [address] Abby Solis MD [address] [place] [id number] Referral ID Status Reason Start Date Expiration Date V isits Requested Visits Authorized [id number] Closed Consult, Test & Treat 01/07/2023 07/06/2023 1 1 Encounter Details Date Type Department Care Team (Late st Contact Info) Description 01/07/2023 Orders Only Internal Medicine at [facility] [address] [place] [address] Tasneem Galdamez MD [facility] [place] [address] Lumbar back pain Social History Tobacco Use [...] AM EDT Office Visit Internal Medicine at [address] [address] Gema Oliveira, DO [facility] [place] [address] Scheduled Referrals Name Type Priority Associated Diagnoses Order Schedule Referral to Neurosurgery Outpatient Referral Routine Lumbar back pain Ordered: 01/07/2023 documented as of this encounter Visit Diagnoses Diagnosis Lumbar back pain Lumbago documented in this encounter Care Teams Tar And Ammonia Pump Operator Relationship Specialty Start Date End Date Tasneem Galdamez MD [facility] [address] PCP - General General Internal Medicine 05/20/2004/21 documented as of this encounter
--- OUTSIDE RECORDS SUMMARY | 2024-07-12 00:29 | XMS_ITS | Encounter Summary ---
Author Organization [facility] [place] [address] Care Team Providers Care [employer] Packages Leak Tester Name Role Phone Tasneem Galdamez MD Primary Care Provider [phone] Encounter Details Date Type Department Care Team (Latest Contact Info) Description 01/20/2022 2:10 PM EST Laboratory Appointment Lab [address] [place] [phone] Type 2 diabetes mellitus without complication, without [...] EDT Office Visit Internal Medicine at [address] [address] Gema Oliveira, [facility] [place] [address] documented as of this encounter Procedures Procedure Name Priority Date/Time Associated Diagnosis Comments HC HEMOGLOBIN A1C Routine 01/20/2022 2:1 6 PM EST Type 2 diabetes mellitus without complication, without long-term current use of insulin documented in this encounter Results * (ABNORMAL) Hemoglobin A1c (01/20/2022 2:16 PM EST) Hemoglobin A1c 7.4(H) 4.3 - 5.6 % [facility] Comment: Reference Range: 4.3 - [...] Mellitus, Diabetes Care 2013; 36: Suppl. 1, P87-17 Estimated Average Glucose 167 mg/dL [facility] Comment: eAG equivalents for HbA1c [...] into estimated average glucose values. ??Diabetes Care 2008:31(8):0001-2197. Blood 01/20/2022 2:16 PM EST 01/20/2022 2:20 PM EST Narrative Resulting Agency Comment Spec In Lab Froilan Crane MD CHEMISTRY ORDERABLES [facility] [place] [address] documented in this encounter Visit Diagnoses Diagnosis Type 2 diabetes mellitus without complication, without long-term current use of insulin documented in this encounter Care Teams Semiconductor Packages Leak Tester Relationship Specialty Start Date End Date Tasneem Galdamez MD [facility] [place] [address] PCP - General General Internal Medicine 05/20/2004/21 documented as of this encounter
--- OUTSIDE RECORDS SUMMARY | 2024-07-12 00:29 | XMS_ITS | Encounter Summary ---
Author Organization [facility] Address [facility] [place] [address] Care Team Providers Care Machine Feller Name Role Phone Tasneem Galdamez MD Primary Care Provider [phone] Reason for Visit * Reason Comments Follow-up From zio-patch, coul d not finish it, after 8 hours got a bad rash from it Other Concerns of high sug ars Encounter Details Date Type Department Care Team (Late st Contact Info) Description 08/26/2022 9:30 AM EDT Office Visit Internal Medicine at [address] [address] Tasneem Galdamez MD [facility] [place] [address] Type 2 diabetes mellitus without complication, without long-term current use of insulin; Tachycardia; Palpitations; Smoking; Hypertension, essential, benign; Moderate episode of recurrent major depressive disorder; Anxiety; Pneumococcal vaccine administered Social History Tobacco Use Types Packs/Day Years [...] Sign Reading Time Taken Comments Blood Pressure 154/96 08/26/2022 9:25 AM EDT Pulse 103 08/26/2022 9:25 AM EDT Temperature - - Respiratory Rate - - Oxygen Saturation 99% 08/26/2022 9:25 AM EDT Inhaled Oxygen Concentration - - Weight 127.8 kg (281 lb 12.8 oz) 08/26/2022 9:25 AM EDT Height 175.3 cm (5' 9.02) 08/26/2022 9:25 AM ED T reported Body Mass Index 41.6 08/26/2022 9:25 AM EDT documented in this encounter Progress Notes * Tasneem Galdamez MD - 08/26/2022 9:30 AM EDT Subjective: Patient ID: Tracie Layton is a 51 y.o. female. HPI Chief Complaint Patient presents with ??? Follow-up From zio-patch, could not finish it, after 8 hours got a bad rash from it ??? Other Concerns of high sugars Tracie is here to follow up Zio patch results for palpitations and other chronic conditions. Depression/anxiety: In February, she was seen for increased anxiety and depression, in the setting of several life stressors. She was having palpitations, flushing, headache and diaphoresis intermittently. She previously was on Trintellix 10mg + Abilify, however, this caused an internal jitteriness that was concerning for potentially too much serotonin. So Ability was discontinued and Trintellix was resumed then increased to 20mg. -Today reports mood and anxiety is stable on the current dose of Trintellix. No recurrence of jitteriness. - Denies SI Palpitations Tachycardia HTN She was having frequent palpitations and chest heaviness. Was seen in the ED last year for similar symptoms where she had a negative stress echo. I had ordered a Zio patch, however, the patch fell off and she reported skin irritation from it. No results were able to be obtained. I also had ordered a 24 hour urine for catecholamines, given the description of intermittent heart racing, sweating/flushing and hypertension. This also was not completed. - Today, she reports improvement in the palpitations and is no longer getting the chest heaviness. - She does continue to have intermittent sweats, worse at night and can be drenching. - Denies fevers, chills or LAD - Does have consistently elevated BP at home, as well as in the office today. Denies dizziness or lightheadedness, but does get headaches which she associates with high blood pressures. T2DM Victoza was discontinued due to GI upset. A1C had increased to 7.4%. Metformin was increased to 1500mg daily and Jardiance was added, unfortunately she is no longer taking this either due to vomitingand abdominal upset. She is checking a few times a day at home; reports AM fasting to be in the upper 100s to low 200s. With intermittent spikes in the afternoons as well. Denies neuropathy and has up coming eye appointment. - Today, only medication is Meformin 2000mg. - Today's A1C is 7.0% Current Smoker Had previously quit with Chantix, however, her 17 year old nephew recently committed suicide which triggered to pick up attendant smoking again. Currently, smoking 1/2 to 1 pack/day. She is very motivated and ready to quit. HCM: -Urine microalbumin - done today -DM eye exam - upcoming appointment -Mammogram - will address at 1 month follow up -A1C - 7.0% today -Creatinine - ordered today -Pneumo - done today Objective: BP (!) 154/96 (BP Location (NBP): Left arm, Patient Position: Sitting, BP Cuff Sizes: Large Adult (32-43 cm)) Pulse (!) 103 Ht 175.3 cm (5' 9.02) Comment: reported Wt 127.8 kg (281 lb 12.8 oz) LMP 10/06/2019 (Exact Date) SpO2 99% BMI 41.60 kg/m?? PHQ-9 QUESTIONNAIRE SCORE ONLY (AMB) 10/29/2020 PHQ - 9 Score (Patient) 12 (Moderate Depression) Some recent data might be hidden Wt Readings from Last 3 Encounters: 08/26/22 127.8 kg (281 lb 12.8 oz) 10/07/21 129.2 kg (284 lb 12.8 oz) 09/02/21 128.4 kg (283 lb) Physical Exam: Gen:NAD; alert, oriented, conversant HEENT: anicteric, EOMI intact CV: Tachycardic, but regular, no murmurs/rubs/gallops Resp: CTAB, no crackles/wheezes/ronchi, normal work of breathing Abd: soft, non-tender to palpation, no rebound or guarding Ext: no pedal edema Neuro: no focal deficits noted, CN II-XII grossly intact, moves all extremities spontaneously Skin: no rashes, lesions, or ulcerations noted Assessment and Plan: 1. Type 2 diabetes mellitus without complication, without long-term current use of insulin Currently only on Metformin currently. Previously has not tolerated Victoza or Jardiance due to GI upset. She is checking blood sugars regularly at home. A1C today is acceptable at 7.0%. Due for labsand urine today. Will continue with current regimen. - POCT glycated hemoglobin, total (HA1C) - Basic Metabolic Panel (non-fasting); Future - metFORMIN XR (Glucophage XR) 500 mg Tablet Sustained Release 24 hr; Take 2 tablets by mouth 2 times daily. Dispense: 180 tablet; Refill: 3 - Basic Metabolic Panel (non-fasting) - U Albumin/Cre Ratio 2. Tachycardia 3. Palpitations 4. Hypertension, essential, benign Palpitations improved. Unfortunately, was not able to wear zio patch and threw it out so data was able to be collected. 24 hour urine test also unable to be completed. However, the palpitations have improved. She does continue to have intermittent sweating, worse at night which may be associated with her medication. More concerning, is the ongoing sinus tachycardia and poorly controlled hypertension. She is currently on HCTZ, Lisinopril and Metoprolol. Will stop the Metoprolol and change to Carvediolol for better BP effect. Will follow up in 1 month. - carvediloL (Coreg) 6.25 mg Tablet; Take 1 tablet by mouth 2 times daily (with meals). Dispense: 60 tablet; Refill: 3 - CBC (with Diff) - TSH [place] 5. Smoking Unfortunately has relapsed due to recent life stressors. She is very motivated to quit. Has had prior success with Chantix. Mood is currently well controlled, but she knows that Chantix can increase the risk of SI. She knows to stop the medicine and reach out if this happens. - varenicline (Chantix) 0.5 mg Tablet; Take 1 tablet by mouth daily for 3 days, THEN 1 tablet 2 times daily (with meals) for 4 days. This medication should be taken in the middle of your largest meal(s) with a full glass of water. DO NOT TAKE ON AN EMPTY STOMACH. Transition to 1 mg tablets when finished. Indications: stop smoking Dispense: 11 tablet; Refill: 0 - varenicline (Chantix) 1 mg Tablet; Take 1 tablet by mouth 2 times daily (with meals). This medication should be taken in the middle of your largest meal(s) with a full glass of water. DO NOT TAKE ON AN EMPTY STOMACH. Indications: stop smoking Dispense: 60 tablet; Refill: 5 6. Moderate episode of recurrent major depressive disorder 7. Anxiety Stable on Trintellix 20mg daily. CTM 8. Pneumococcal vaccine administered - Pneumococcal Conjugate 20-Valent (PCV20) F/u 1 month * Ragini Unger MD - 08/26/2022 9:30 AM EDT The case was discussed in person at the time of the visit or immediately after the visit. The assessment and plan were formulated in discussion with me and I agree with them as documented. I have reviewed the history, physical exam, assessment and plan with the resident. Major issues discussed today: Pt is a 51 yo here for f/up Recent palpitations - associated with flushing/hot flashes. Given ziopatch. Only wore for 2 days but then had rash so threw it out. 24 hour urine test for catecholamines also ordered, never completed. Isn't having the same palpitiatons any further. HTN - was checking pressurised container filler p at home and these stressed her out so she stopped. Lisinopril, hctz, metoprolol. 154/96 today. Change for metoprolol to carvediolol Depression - Remains on trintellix 20 mg. DM - on metformin only. Didn't tolerate GLP-1 or jardiance. Am fasting 100-low 200's. Mild diarrha on metformin. A1c 7.0 today. Cont current meds, check ualb Has restarted smoking again. Lost her nephew to suicide. Would like to stop and has done well on chantix. Will prescribe that today. documented in this encounter Plan of Treatment Upcoming Encounters Date Type Department Care Team (Late Contact Info) Description 09/05/2024 9:00 AM EDT Office Visit Internal Medicine at [facility] [address], [place] [id number] Gema Oliveira, [facility] [place] [address] documented as of this encounter Procedures Procedure Name Priority Date/Time Associated Diagnosis Comments HC THYROID STIMULATING HORMONE, SERUM Routine 08/26/2022 10:31 AM EDT Palpitations HEMOGRAM Routine 08/26/2022 10:31 AM EDT Tachycardia DIFFERENTIAL, AUTOMATED Routine 08/26/2022 10:31 AM EDT Tachycardia HC CREATININE - NON BLOOD Routine 08/26/2022 10:31 AM EDT Type 2 diabetes mellitus without complication, without long-term current use of insulin HC CBC,PLT & AUTO DIFF Routine 08/26/2022 10:31 AM EDT Tachycardia BASIC METABOLIC PANEL Routine 08/26/2022 10:31 AM EDT Type 2 diabetes mellitus without complication, without long-term current use of insulin POCT GLYCATED HEMOGLOBIN, TOTAL (HA1C) Routine 08/26/2022 9:34 AM EDT Type 2 diabetes mellitus without complication, without long-term current use of insulin documented in this encounter Results * (ABNORMAL) Differential, Automated (08/26/2022 10:31 AM EDT) Neutrophil % 53.0 % [facility] Neutrophil Absolute 4.87 1.70 - 6.10 x10(3)/mc L [facility] Lymph % 35.0 % [facility] Lymphocytes Abs 3.2 0.9 - 3.2 x10(3)/mc L [facility] Monocyte % 7.7 % [facility] Monocyte Abs 0.7 0.3 - 0.9 x10(3)/[facility] Eos % 3.3 % [facility] Eosinophils Abs 0.3 0.0 - 0.4 x10(3)/[facility] Basophil % 0.3 % [facility] Baso Absolute 0.0 0.0 - 0.1 x10(3)/[facility] Immature Gran % 0.70 % [facility] Comment: Immature granulocytes(IG's)percentage and absolute count will include metamyelocytes, myelocytes, and promyelocytes. Blood smears from CBCs yielding IG's will be scanned manually for concordance. If this scan disagrees with the automated IG or if promyelocytes are noted, a manual differential will be performed. Immature Gran Absolute 0.06(H) 0.00 - 0.04 x10(3)/[facility] Blood 08/26/2022 10:3 1 AM EDT 08/26/2022 11:55 AM EDT Narrative Resulting Agency Comment Spec In Lab Tasneem Galdamez MD HEMATOLOGY ORDERABLE S [facility] [place] [address] * Hemogram (08/26/2022 10:31 AM EDT) White Blood Cell 9.2 4.0 - 9.5 x10(3)/[facility] Red Blood Cell 4.92 4.00 - 5.21 x10(6)/[facility] Hemoglobin 14.3 11.7 - 15.5 g/dL [facility] Hematocrit 41.0 35.7 - 45.8 % [facility] Mean Cell Volume 83.3 82.6 - 94.[address] [facility] Mean Cell Hemoglobin 29.1 27.1 - 32.[address] [facility] Mean Cell Hemoglobin Concentration 34.9 31.7 - 35.0 g/dL [facility] Platelet 215 145 - 357 x10(3)/[facility] RDW Standard Deviation 37.2 37.0 - 46.0 [facility] RDW coefficient of variation 12.2 11.5 - 14.1 % [facility] Mean Platelet Volume 11.2 7.6 - 12.9 [facility] NRBC% auto 0.0 % [facility] NRBC Absolute 0.000 0.000 - 0.000 x10(3)/[facility] Blood 08/26/2022 10:3 1 AM EDT 08/26/2022 11:55 AM EDT Narrative Resulting Agency Comment Spec In Lab Tasneem Galdamez MD HEMATOLOGY ORDERABLE S Performing Organization Address City/[facility] [[email or web address]] Co de Phone Number [facility] [place] [address] * TSH [place] (08/26/2022 10:31 AM EDT) Thyroid Stimulating Hormone 1.56 0.27 - 4.20 mcIU/mL [facility] Comment: Reference Interval (mcIU/mL): Females: ??First Trimester: 0.23-3.88 ??Second Trimester: 0.22-3.90 ??Third Trimester: 0.44-4.66 Blood 08/26/2022 10:3 1 AM EDT 08/26/2022 8:20 PM EDT Narrative Resulting Agency Comment Spec In Lab Ragini Unger MD CHEMISTRY ORDERABLES Performing Organization Address City/[facility]/ZIP Co de Phone Number [facility] [place] [address] * Basic Metabolic Panel (non-fasting) (08/26/2022 10:31 AM EDT) Glucose 148 65 - 199 mg/dL [facility] Comment:Diabetes: >=200 mg/d L plus symptoms Blood Urea Nitrogen 15 8 - 18 mg/dL [facility] Creatinine 1.02 0.70 - 1.20 mg/dL [facility] Sodium 138 135 - 145 mmol/L [facility] Potassium 3.6 3.5 - 5.0 mmol/L [facility] Comment: Please note: ??Patients with WBC >100,000 may have falsely elevated Potassium levels. ??For accurate Potassium quantification in these patients send serum separator tube (gold top) for subsequent determinations. ??Contact the Clinical Chemistry Laboratory if there are any questions. Chloride 100 98 - 107 mmol/L [facility] Carbon Dioxide 26 22 - 31 mmol/L [facility] Anion Gap 12 5 - 15 mmol/L [facility] Calcium 9.6 8.5 - 10.5 mg/dL [facility] Est Glomerular Filtration Rate 67 >=60 mL/min/1. 73 m?? [facility] Comment: This patient's estimated GFR [...] and symptoms in addition to eGFR. Blood 08/26/2022 10:3 1 AM EDT 08/26/2022 8:16 PM EDT Narrative Resulting Agency Comment Spec In Lab Ragini Unger MD CHEMISTRY ORDERABLES [facility] [place] [address] * U Albumin/Cre Ratio (08/26/2022 10:31 AM EDT) Albumin / Creatinin Ratio, Urine 5 0 - 29 mcg/mg Cr [facility] Comment: Reference Ranges: <30 mcg/mg: [...] Supplements (2012) 2, 357? 362 Albumin, Urine 8.9 mg/L [facility] Creatinine, Urine 167 mg/dL [facility] Urine 08/26/2022 10:3 1 AM EDT 08/26/2022 11:57 AM EDT Narrative Resulting Agency Comment Spec In Lab Ragini Unger MD URINE ORDERABLES [facility] [place] [address] * (ABNORMAL) POCT glycated hemoglobin, total (HA1C) (08/26/2022 9:34 AM EDT) Hemoglobin A1C, POC 7.0(A) 4.3 - 5.6 % 08/26/2022 9:34 AM EDT Ragini Unger MD POINT OF CARE TEST O RDERABLES documented in this encounter Visit Diagnoses Diagnosis Type 2 diabetes mellitus without complication, without long-term current use of insulin Tachycardia Tachycardia, unspecified Palpitations Smoking Tobacco use disorder Hypertension, essential, benign Essential hypertension, benign Moderate episode of recurrent major depressive disorder Anxiety Anxiety state, unspecified Pneumococcal vaccine administered documented in this encounter Care Teams Machine Feller Relationship Specialty Start Date End Date Tasneem Galdamez MD [facility] [place] [address] PCP - General General Internal Medicine 05/20/2004/21 documented as of this encounter
--- OUTSIDE RECORDS SUMMARY | 2024-07-12 00:30 | XMS_ITS | Encounter Summary ---
Author Organization [facility] Address [facility] [place] [address] Care Team Providers Care Email Operations Manager Name Role Phone Tasneem Galdamez MD Primary Care Provider Reason for Visit * Reason Comments Medication Refill Encounter Details Date Type Department Care Team (Late st Contact Info) Description 02/07/2021 Refill Internal Medicine at [address] [address] Tasneem Galdamez MD [facility] [address] Nicotine dependence, cigarettes, uncomplicated Social History Tobacco [...] EDT Office Visit Internal Medicine at [address] [address] Gema Oliveira DO [facility] [address] [place] [address] documented as of this encounter Visit Diagnoses Diagnosis Nicotine dependence, cigarettes, uncomplicated documented in this encounter Care Teams Email Operations Manager Relationship Specialty Start Date End Date Tasneem Galdamez MD [facility] [place] [address] PCP - General General Internal Medicine 05/20/2004/21 documented as of this encounter
--- OUTSIDE RECORDS SUMMARY | 2024-07-12 00:30 | XMS_ITS | Encounter Summary ---
Author Organization [facility] Address [facility] [place] [address] Care Team Providers Care Valet Runner Name Role Phone Tasneem Galdamez MD Primary Care Provider [phone] Reason for Visit * Reason Comments Follow-up ER in [facility] pain Medication Check needs refills on all things, never got her pads Encounter Details Date Type Department Care Team (Late st Contact Info) Description 08/20/2021 10:40 AM EDT Office Visit Internal Medicine at [address] [address] Ragini Unger MD [facility] [place] [address] Exertional chest pain; Nicotine dependence, cigarettes, uncomplicated; Essential hypertension; Impaired fasting glucose; Gastroesophageal reflux disease without esophagitis; Encounter for hepatitis C screening test for low risk patient; Current moderate episode of major depressive disorder, unspecified whether recurrent; PTSD (post-traumatic stress disorder) Social History Tobacco [...] Sign Reading Time Taken Comments Blood Pressure 141/95 08/20/2021 10:40 AM EDT Pulse 101 08/20/2021 10:40 AM EDT Temperature - - Respiratory Rate - - Oxygen Saturation 99% 08/20/2021 10: 40 AM EDT Inhaled Oxygen Concentration - - Weight 124.4 kg (274 lb 3.2 oz) 021 10:40 AM EDT Height 175.3 cm (5' 9.02) 08/20/2021 1 0:40 AM EDT reported Body Mass Index 40.47 08/20/2021 10:40 AM EDT documented in this encounter Progress Notes * Ragini Unger MD - 08/20/2021 10:40 AM EDT ESTABLISHED PATIENT ACUTE VISIT FOLLING EMERGENCY ROOM VISIT Chief Complaint Patient presents with ??? Follow-up ER in [place], chest pain ??? Medication Check needs refills on all things, never got her pads Pt is a 50 y.o. female with PMH mixed anxiety and depression, IFG, obestiy, HTN, PTSD, ADD, OA, Vitamin D def, tobacco and etoh use who presents for acute visit following [place] ER visit with CP.She hd started with CP at 7:30 in the morning, accompanied by dizziness and stomach discomfort. Shecalled 911 and was evaluated in ER. Initially BP was 169/104, but it improved during evaluation. Labs including cardiac enzymes were normal/negative. EKG showed NSR with nonspecific ST/twave changes and prolonged QT (466 QTc). CXR was normal. She was discharged home on ASA 81 mg and maintained on her current medications which includes HCTZ 25, lisnopril 40 korey HTN and metformin for IFG. Since ER visit, has noticed that with ambulation she gets gets pressure across her chest, but no other symptoms. She has baseline SOB, which she says hasn't changed. She admits to feeling tired all the time with poor sleep, jett falling back to sleep after awakening up. She admits to increased stress right now, and wonders if the stress is contributing to her chest pain. Has been prescribed Trintellix 20 mg daily but hasn't taken it for 2-3 weeks. Pharmacy told her shehad no refills. She is still smoking 1/2 ppd. Really wants to stop. Would like to go back on chantix. No etoh. Lab Results Component Value Date WBC 8.5 08/17/2021 RBC 4.88 08/17/2021 HGB 13.8 08/17/2021 HCT 41.3 08/17/2021 MCV 84.6 08/17/2021 MCH 28.3 08/17/2021 MCHC 33.4 08/17/2021 PLATELET 186 08/17/2021 RDWCV 12.2 08/17/2021 Lab Results Component Value Date NA 139 08/17/2021 K 3.5 08/17/2021 CL 100 08/17/2021 CO2 26 08/17/2021 BUN 16 08/17/2021 CREATININE 0.93 08/17/2021 GLUCOSE 107 08/17/2021 GLUCFASTING 116 (H) 02/22/2016 CALCIUM 9.6 08/17/2021 Lab Results Component Value Date ALT 20 02/22/2016 AST 16 02/22/2016 ALKPHOS 60 02/22/2016 BILITOT 0.2 02/22/2016 BILIDIR 0.1 02/22/2016 ALBUMIN 4.1 02/22/2016 PROT 7.0 02/22/2016 Lab Results Component Value Date CK 65 12/06/2018 TROPONINT <0.01 08/17/2021 EKG nsr, nonspecific st/twave changes. CXR wnl Current Outpatient Medications on File Prior to Visit Medication Sig Dispense Refill ??? Trintellix 20 mg Tablet TAKE 1 TABLET BY MOUTH DAILY 30 tablet 1 ??? varenicline (Chantix) 1 mg Tablet Take 1 tablet by mouth 2 times daily (with meals). 60 tablet 1 ??? pramipexole (MIRAPEX) 0.125 mg Tablet Take 2 tablets by mouth nightly. 60 tablet 11 ??? hydroCHLOROthiazide (Hydrodiuril) 25 mg Tablet Take 1 tablet by mouth daily. 90 tablet 3 ??? lisinopriL (Prinivil;Zestril) 40 mg Tablet Take 1 tablet by mouth daily. 90 tablet 3 ??? metFORMIN XR (Glucophage XR) 500 mg Tablet Sustained Release 24 hr Take 1 tablet by mouth 2 times daily. 180 tablet 3 ??? omeprazole (PriLOSEC) 40 mg Capsule, Delayed Release(E.C.) Take 1 capsule by mouth daily. 90 capsule 3 ??? [DISCONTINUED] norethindrone (Aygestin) 5 mg Tablet Take 5 mg by mouth 2 times daily. ??? diclofenac (VOLTAREN) 1 % Gel APPLY 2 GRAMS TOPICALLY FOUR TIMES DAILY NEEDED FOR LOWER BACKPAIN 100 g 3 ??? ProAir HFA 90 mcg/actuation HFA Aerosol Inhaler INHALE 2 PUFFS BY MOUTH INTO THE LUNGS EVERY 4 HOURS NEEDED FOR WHEEZING, USE WITH SPACER 8.5 g 3 ??? ipratropium-albuterol (DUONEB) 0.5 mg-3 mg(2.5 mg base)/3 mL Solution for Nebulization INHALE THE CONTENTS OF 1 VIAL BY NEBULIZATION EVERY 4 HOURS NEEDED 180 mL 5 ??? Incontinence Pad, Liner, Disp Pad 1 each by Misc.(Non-Drug; Combo Route) route every 4 hours asneeded (for incontinence). 200 each 11 ??? estradioL (ESTRACE) 0.5 mg Tablet Take 0.5 mg by mouth daily. No current facility-administered medications on file prior to visit. Patient Active Problem List Diagnosis Code ??? Bilateral occipital neuralgia M54.81 ??? Post-traumatic headache G44.309 ??? Esophageal reflux (GERD) K21.9 ??? Smoking F17.200 ??? PTSD (post-traumatic stress disorder) F43.10 ??? Agoraphobia F40.00 ??? ADD (attention deficit disorder) (ADHD) F98.8 ??? Vitamin D deficiency E55.9 ??? Depression F32.A ??? BMI 39.0-39.9,adult Z68.39 ??? Mixed stress and urge urinary incontinence N39.46 ??? 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 Osteoarthritis of spine with radiculopathy, lumbar region M47.26 ??? Hypertension, essential, benign I10 ??? Impaired fasting glucose R73.01 ??? History of cervical cancer Z85.41 ??? Alcohol abuse F10.10 ??? H/O suicide attempt Z91.51 ??? Obstructive lung disease (generalized) J44.9 ??? Pulmonary nodules R91.8 ??? 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 Disability for depression/ptsd from CSA Financially getting by with help of partner PHQ-9 QUESTIONNAIRE SCORE ONLY (AMB) 10/29/2020 PHQ - 9 Score (Patient) 12 (Moderate Depression) Some recent data might be hidden Physical Exam: Vitals: 08/20/21 1040 BP: (!) 141/95 BP Location (NBP): Left arm Patient Position: Sitting BP Cuff Sizes: Large Adult (32-43 cm) Pulse: (!) 101 SpO2: 99% Weight: 124.4 kg (274 lb 3.2 oz) Height: 175.3 cm (5' 9.02) Wt Readings from Last 3 Encounters: 08/20/21 124.4 kg (274 lb 3.2 oz) 08/17/21 127 kg (280 lb) 05/14/21 119.7 kg (264 lb) Physical Exam Pleasant NAD HEENT - om moist. Neck - supple, no lad Lungs - cta Heart - tachy, nl s1/s2, no mrg Ext - no edema 2+ pulses. Assessment/Plan: Tracie was seen today for follow-up ER visit and f/up of medical issues. We discussed her ER presentation and the absence of findings of a heart attack, however given her risk factors together with her current exertional chest discomfort, she should proceed with a stress test. Will also start her on metoprolol xl 25 mg once daily. Our dyslexia teacher will schedule stress test. Discussed that anxiety, obstructive lung disease or gerd could also be causing her symptoms. . Diagnoses and all orders for this visit: Exertional chest pain - EKG 12 Lead - metoprolol succinate XL (Toprol-XL) 25 mg Tablet Sustained Release 24 hr; Take 1 tablet by mouth daily. Nicotine dependence, cigarettes, uncomplicated - pt interested to stopping. chantix has been effective in past, will send in script. - varenicline (Chantix) 1 mg Tablet; Take 1 tablet by mouth 2 times daily (with meals). Essential hypertension - bp elevated today. Will cont current meds, add metoprolol, consider calcium channel baudilio if bp continues to be elevated. - hydroCHLOROthiazide (Hydrodiuril) 25 mg Tablet; Take 1 tablet by mouth daily. - lisinopriL (Zestril) 40 mg Tablet; Take 1 tablet by mouth daily. Impaired fasting glucose - refill medication as below - metFORMIN XR (Glucophage XR) 500 mg Tablet Sustained Release 24 hr; Take 1 tablet by mouth 2 times daily. - POCT glycated hemoglobin, total (HA1C) - TSH; Future - TSH Gastroesophageal reflux disease without esophagitis - - omeprazole (PriLOSEC) 40 mg Capsule, Delayed Release(E.C.); Take 1 capsule by mouth daily. Encounter for hepatitis C screening test for low risk patient - pt's bf recently diagnosed with HepC, screening test today - Hepatitis C Antibody; Future - Hepatitis C Antibody Current moderate episode of major depressive disorder, unspecified whether recurrent - increased symptoms. Will restart trintellix, discussed therapy - vortioxetine (Trintellix) 20 mg Tablet; Take 20 mg by mouth daily. PTSD (post-traumatic stress disorder) - vortioxetine (Trintellix) 20 mg Tablet; Take 20 mg by mouth daily. Other orders - diclofenac (Voltaren) 1 % Gel; Apply topically 4 times daily as needed. - Discontinue: fluticasone propion-salmeteroL (ADVAIR) 100-50 mcg/dose Disk with Device; Inhale 1 puff into the lungs every 12 hours. Total time on date of encounter: 50 minutes including as necessary: [x] Preparing to see pt, review of tests [] Obtaining and/or reviewing separately obtained history (eg, outside records, caregiver) [x] Counseling and educating the patient/family/caregiver [] Referring and communicating with other health home health care coordinator [x] Documenting clinical information in the electronic or other health record [x] Independently interpreting results [] Care coordination documented in this encounter Plan of Treatment Upcoming Encounters Date Type Department Care Team (Late st Contact Info) Description 09/05/2024 9:00 AM EDT Office Visit Internal Medicine at [address] [address] Gema Oliveira, [facility] [place] [address] documented as of this encounter Procedures Procedure Name Priority Date/Time Associated Diagnosis Comments EKG 12-LEAD Routine 08/20/2021 11:27 AM EDT Exertional chest pain HC VENIPUNCTURE Routine 08/20/2021 11:25 AM EDT Encounter for hepatitis C screening test for low risk patient HC THYROID STIMULATING HORMONE, SERUM Routine 08/20/2021 11:25 AM EDT Impaired fasting glucose POCT GLYCATED HEMOGLOBIN, TOTAL (HA1C) Routine 08/20/2021 11:18 AM EDT Impaired fasting glucose documented in this encounter Results * EKG 12 Lead (08/20/2021 11:27 AM EDT) Ventricular rate 95 BPM MUSE SYSTEM Atrial Rate 95 BPM MUSE SYSTEM P-R Interval 134 ms MUSE SYSTEM QRS Duration 74 ms MUSE SYSTEM Q-T Interval 370 ms MUSE SYSTEM QTC Calculated (Bezet) 464 ms MUSE SYSTEM Calculated P [place] 59 degrees MUSE SYSTEM Calculated R [place] 22 degrees MUSE SYSTEM Calculated T [place] 7 degrees MUSE SYSTEM INTERPRETATION Normal sinus rhythm Normal ECG When compared with ECG of 17-AUG-2021 13:00, No significant change was found Confirmed by MD SHARYN, RALF ([id number]) on 08/20/2021 5:45:10 PM MUSE SYSTEM 08/20/2021 11:2 7 AM EDT 08/20/2021 5:45 PM EDT Ragini Unger MD ECG ORDERABLES MUSE SYSTEM * TSH (08/20/2021 11:25 AM EDT) Thyroid Stimulating Hormone 1.79 0.27 - 4.20 mcIU/mL [facility] Comment: Reference Interval (mcIU/mL): Females: ??First Trimester: 0.23-3.88 ??Second Trimester: 0.22-3.90 ??Third Trimester: 0.44-4.66 Blood 08/20/2021 11:2 5 AM EDT 08/20/2021 6:51 PM EDT Narrative Resulting Agency Comment Spec In Lab Ragini Unger MD CHEMISTRY ORDERABLES [facility] [place] [address] * Hepatitis C Antibody (08/20/2021 11:25 AM EDT) Hepatitis C Antibody Negative Negative [facility] Blood 08/20/2021 11:2 5 AM EDT 08/20/2021 6:49 PM EDT Narrative Resulting Agency Comment Spec In Lab Ragini Unger MD CHEMISTRY ORDERABLES Performing Organization Address [facility] Co de Phone Number [facility] [place] [address] * (ABNORMAL) POCT glycated hemoglobin, total (HA1C) (08/20/2021 11:18 AM EDT) Hemoglobin A1C, POC 6.5(A) 4.3 - 5.6 % 08/20/2021 11:1 8 AM EDT Ragini Unger MD POINT OF CARE TEST O RDERABLES documented in this encounter Visit Diagnoses Diagnosis Exertional chest pain Chest pain, unspecified Nicotine dependence, cigarettes, uncomplicated Essential hypertension Unspecified essential hypertension Impaired fasting glucose Gastroesophageal reflux disease without esophagitis Esophageal reflux Encounter for hepatitis C screening test for low risk patient Current moderate episode of major depressive disorder, unspecified whether recurrent PTSD (post-traumatic stress disorder) Posttraumatic stress disorder documented in this encounter Care Teams Valet Runner Relationship Specialty Start Date End Date Tasneem Galdamez MD [facility] [address] PCP - General General Internal Medicine 05/20/2004/21 documented as of this encounter
--- OUTSIDE RECORDS SUMMARY | 2024-07-12 00:30 | XMS_ITS | Encounter Summary ---
Author Organization [facility] [place] [address] Care Team Providers Care Vice President Biostatistics Name Role Phone Marguerite Riley MD Primary Care Provider [phone] Reason for Visit * Reason Comments Medication Refill Encounter Details Date Type Department Care Team (Late st Contact Info) Description 11/26/2019 Refill Internal Medicine at [address] [address] Marguerite Riley MD [facility] INTER[facility] [place] [address] Social History Tobacco Use Types Packs/Day Years Used Date Smoking Tobacco: Every Day Cigarettes 0.5 30 Smokeless Tobacco: Never Alcohol Use Standard Drinks/Week Comments Yes 0 (1 standard drink = 0.6 oz pur e alcohol) Occasional Sex and Gender Information Value Date Recorded Sex Assigned at Not on file Gender Identity Not on file Sexual Orientation Not on file documented as of this encounter Plan of Treatment Upcoming Encounters Date Type Department Care Team (Late st Contact Info) Description 09/05/2024 9:00 AM EDT Office Visit Internal Medicine at [address] [address] Gema Oliveira DO [facility] [address] [facility] [place] [address] documented as of this encounter Visit Diagnoses Not on filedocumented in this encounter Care Teams Vice President Biostatistics Relationship Specialty Start Date End Date Marguerite Riley MD [facility] INTER[facility] [place] [address] PCP - General General Internal Medicine 08/15/1704/22 documented as of this encounter
--- OUTSIDE RECORDS SUMMARY | 2024-07-12 00:30 | XMS_ITS | Encounter Summary ---
Author Organization [facility] Address [facility] [place] [address] Care Team Providers Care Client Services Manager Name Role Phone Tasneem Galdamez MD Primary Care Provider [phone] Encounter Details Date Type Department Care Team (Late st Contact Info) Description 06/23/2020 Telephone Internal Medicine at [address] [address] Surendra Rios Social History Tobacco Use Types Packs/Day Years [...] encounter Miscellaneous Notes * Telephone Encounter - Surendra Rios - 06/23/2020 12:04 PM EDT Called to reschedule no showed OVE/MOY from 06/16. LVM documented in this encounter Plan of Treatment Upcoming Encounters Date Type Department Care Team (Late st Contact Info) Description 09/05/2024 9:00 AM EDT Office Visit Internal Medicine at [address] [id number] Gema Oliveira, [facility] [place] [address] documented as of this encounter Visit Diagnoses Not on filedocumented in this encounter Care Teams Client Services Manager Relationship Specialty Start Date End Date Tasneem Galdamez MD [facility] [place] [address] PCP - General General Internal Medicine 05/20/2004/21 documented as of this encounter
--- OUTSIDE RECORDS SUMMARY | 2024-07-12 00:30 | XMS_ITS | Encounter Summary ---
Author Organization [facility] [place] [address] Care Team Providers Care Manager Post Name Role Phone Marguerite Riley MD Primary Care Provider [phone] Reason for Visit * Reason Onset Date Comments Prior Authorization 03/02/2020 for medicati on Nicotrol Encounter Details Date Type Department Care Team (Late st Contact Info) Description 03/02/2020 Telephone [place] [address] Niya Lacey CCMA Prior Authorization (for medication Nicotrol) Social History Tobacco Use Types Packs/Day Years [...] Telephone Encounter - Elaina Dominique CMA - 03/02/2020 11:23 AM EDT Medication Prior Authorization for Primary Care Approved: Nicotrol Start Date: 03/02/2020 End Date: 05/02/2020 Case/Reference #: [id number] See Approval Letter in scanned documents. Additional Notes: * Telephone Encounter - Niya Lacey CCMA - 03/02/2020 10:13 AM EDT Medication Prior Authorization for Primary Care [facility] [place] [id number] Request received via: CMM Patient: Tracie Laytno Patient : 1970 Insurance Company: [employer] medicaid Sent via: [facility] Huang: [id number] Physician: Marguerite Riley MD Medication Requested: nicotine (Nicotrol) 10 mg Cartridge Frequency/Sig: Inhale 1 puff into the lungs as needed for Smoking cessation. Disp: 168 Refills: 0 Currently taking: wallace If yes, how lon Diagnosis for this medication: ICD-10 code: F17.200 Prior medications trialed in this patient: Medication: Chantix Approx Dates: Outcome/Adverse Reactions: Inadequate Response Medication: Commit Approx Dates: Outcome/Adverse Reactions: Inadequate Response Medication: nicoderm CQ Approx Dates: Outcome/Adverse Reactions: Inadequate Response Additional Notes: documented in this encounter Plan of Treatment Upcoming Encounters Date Type Department Care Team (Late st Contact Info) Description 09/05/2024 9:00 AM EDT Office Visit Internal Medicine at [address] [address] Gema Oliveira DO [facility] [place] [address] documented as of this encounter Visit Diagnoses Not on filedocumented in this encounter Care Teams Manager Post Relationship Specialty Start Date End Date Marguerite Riley MD [facility] [address] [facility] [address] PCP - General General Internal Medicine 08/15/17 6/3 documented as of this encounter
--- OUTSIDE RECORDS SUMMARY | 2024-07-12 00:30 | XMS_ITS | Encounter Summary ---
Author Organization [facility] [place] [address] Care Team Providers Care Bottle Tester Name Role Phone Tasneem Galdamez MD Primary Care Provider [phone] Encounter Details Date Type Department Care Team (Late st Contact Info) Description 11/02/2020 Patient Outreach [place] [address] Hellen Ruiz LICSW [facility] [place] [address] Social History Tobacco Use Types Packs/Day Years [...] Miscellaneous Notes * Telephone Encounter - Hellen Ruiz LICSW - 11/02/2020 10:14 AM EST [facility] & Psychiatry Collaborative Care Outreach call to Tracie to follow up on referral from PCP. Left voicemail with callback information.Also sent myDH message with therapy resources. Await return call. FAISAL [facility] Primary Care & Psychiatry Collaborative Care GI 3M Direct # [phone] Clinic#: [phone] Pager [phone] documented in this encounter Plan of Treatment Upcoming Encounters Date Type Department Care Team (Late st Contact Info) Description 09/05/2024 9:00 AM EDT Office Visit Internal Medicine at [address] [address] Gema Oliveira DO [facility] [address] [facility] [place] [address] documented as of this encounter Visit Diagnoses Not on filedocumented in this encounter Care Teams Bottle Tester Relationship Specialty Start Date End Date Tasneem Galdamez MD [facility] [place] [address] PCP - General General Internal Medicine 05/20/202 06/11 documented as of this encounter
--- OUTSIDE RECORDS SUMMARY | 2024-07-12 00:30 | XMS_ITS | Encounter Summary ---
Author Organization [facility] Address [facility] [place] [address] Care Team Providers Care Farm Management Supervisor Name Role Phone Tasneem Galdamez MD Primary Care Provider [phone] Reason for Visit * Reason Comments Medication Refill Encounter Details Date Type Department Care Team (Late st Contact Info) Description 07/25/2021 Refill Internal Medicine at [address] [address] Tasneem Galdamez MD [facility] [address] [facility] [place] [address] Current moderate episode of major depressive disorder, unspecified whether recurrent; PTSD (post-traumatic stress disorder); Anxiety; Agoraphobia Social History Tobacco Use Types Packs/Day [...] AM EDT Office Visit Internal Medicine at [address] [address] Gema Oliveira DO [facility] [address] [facility] [place] [address] documented as of this encounter Visit Diagnoses Diagnosis Current moderate episode of major depressive disorder, unspecified whether recurrent PTSD (post-traumatic stress disorder) Posttraumatic stress disorder Anxiety Anxiety state, unspecified Agoraphobia Agoraphobia without mention of panic attacks documented in this encounter Care Teams Farm Management Supervisor Relationship Specialty Start Date End Date Tasneem Galdamez MD [facility] [place] [address] PCP - General General Internal Medicine 05/20/2004/21 documented as of this encounter
--- OUTSIDE RECORDS SUMMARY | 2024-07-12 00:30 | XMS_ITS | Encounter Summary ---
Author Organization [facility] [place] [address] Care Team Providers Care Prosthetics Technician Name Role Phone Marguerite Riley MD Primary Care Provider [phone] Reason for Visit * Reason Comments Annual Exam Encounter Details Date Type Department Care Team (Late st Contact Info) Description 11/28/2019 10:00 AM EST Office Visit Internal Medicine at [address] [facility] [place] [address] Annual physical exam; Hypertension, essential, benign; Microcytosis; Breast cancer screening by mammogram; Weight loss; Vomiting, intractability of vomiting not specified, presence of nausea not specified, unspecified vomiting type; Tobacco abuse Social History Tobacco Use Types Packs/Day Years [...] Sign Reading Time Taken Comments Blood Pressure 122/80 11/28/2019 10:13 AM EST Pulse 103 11/28/2019 10:13 AM EST Temperature 36.8 ??C (98.2 ??F) 11/28/2019 1 0:13 AM EST Respiratory Rate - - Oxygen Saturation 99% 11/28/2019 10: 13 AM EST Inhaled Oxygen Concentration - - Weight 118.3 kg (260 lb 12.8 oz) 2019 10:13 AM EST Height 174.5 cm (5' 8.7) 11/28/2019 10 :13 AM EST Body Mass Index 38.85 11/28/2019 10:13 AM EST documented in this encounter Progress Notes * Marguerite Riley - 11/28/2019 10:00 AM EST Subjective: Patient ID: Tracie Layton is a 48 y.o. female with a history of obstructive lung disease, agoraphobia, depression, PTSD, impaired fasting glucose, HTN, GERD, obesity, and tobacco use who presents today for annual exam. HPI Chief Complaint Patient presents with ??? Annual Exam AUB TVUS with some abnormalities. She is scheduled for biopsy with OBGYN 12/02/2019. She's had no menses since October 01, 2019. She's had no intercourse since that time. She had a negative test at the end of September. She's had a tubal ligation. Weight loss She lost 30lbs rapidly over the course of 3 months. Her weight loss has now stabilized. However, she does continue smoking. She is very worried about the possibility of cancer given history of lung cancer in her month. While she did not get CT C/A/P after her last visit. She still prefers to have this done. Vomiting She has episodes of vomiting once to a a few times a day. They can come on suddenly or be proceededby nausea. Sometimes the contents are just chewed food. She has no pain after eating but often times gets very bloated. She had a lot of pain with last endoscopy (both colonoscopy and EGD, but especially EGD) so is hesitant to start with endoscopy before CT. Smoking She has not picked up her nicotine inhaler yet due to insurance issues. She is smoking 1/2 - 1 ppd.She is rarely using albuterol; it is helpful when she takes it. Moles on back She had some that popped up recently. They are sometimes itchy. They feel round. They get caught onclothing. She has no bleeding or pain. Mood From a year ago, she feels this is much better overall. She has felt great in last week. She feels her stress level is coming down. Review of Systems (positives in bold): Constitutional - fevers, chills, body aches, weight loss or gain, fatigue Cardiovascular - chest pain, chest tightness with anxiety, palpitations Respiratory - SOB, BAUMANN (worse with smoking, inhalers helpful), wheeze, cough (chronic, occasionallysputum) Gastrointestinal - abdominal pain, nausea, vomiting, GERD, constipation, diarrhea, blood or mucus in stool, dark tarry stools Endocrine - polydipsia, polyuria Musculoskeletal - pain at rest or with movement, joint swelling or erythema Neurological - numbness, tingling, loss of sensation, weakness or function of limbs Psychiatric - depression, anxiety, suicidal ideation, homocidal ideation Heme/Lymph - bleeding, lymph node swelling, night sweats Integument - rashes Breast Cancer Risk (DURAN) Scores 09/25/2018 Lifetime Risk of Patient 6.3 Average Lifetime Risk 11.8 5-Year Risk of Patient 0.6 Average 5-Year Risk 1 Recommend Genetic Risk Assessment w/B-RST 0 (If meets USPSTF BRCA testing guideline) Objective: BP 122/80 (BP Location (NBP): Left arm, Patient Position: Sitting, BP Cuff Sizes: Large Adult (32-43 cm)) Pulse (!) 103 Temp 36.8 ??C (98.2 ??F) (Oral) Ht 174.5 cm (5' 8.7) Wt 118.3 kg (260 lb 12.8 oz) LMP 10/01/2019 (Approximate) SpO2 99% BMI 38.85 kg/m?? Wt Readings from Last 3 Encounters: 11/28/19 118.3 kg (260 lb 12.8 oz) 10/18/19 117 kg (258 lb) 10/03/19 117.4 kg (258 lb 12.8 oz) Physical Exam General: alert, oriented, in no acute distress HEENNT: atraumatic, normocephalic, sclera non-icteric, conjunctiva pink, PERRLA, EOMI, no rhinorrhea, neck supple without LAD, oropharynx clear without exudate, moist mucous membranes Cardiovascular: RRR, normal S1/S2, no murmurs/rubs/gallps, radial and PT pulses 2+ and symmetric Lungs: chest symmetric, normal effort, slightly diminished air movement, but CTABL without wheezing Abdomen: +BS, soft, non-tender, non-distended, no organomegaly Extremities: no LUIS ARMANDO MSK: no joint swelling or erythema Skin: two irritated SKs on back, one irritate skin tag along bra line, two pendulous moles on back Neurologic: CN II-XII intact, strength 5/5 in major muscle groups, sensation intact to light touch Psychologic: normal affect and thought content, good judgement and reasoning, no abnormal behavior during the exam, appears more cheerful than normal Labs: Lab Results Component Value Date HA1C 5.6 06/06/2019 Lab Results Component Value Date CREATININE 0.93 06/06/2019 Lipid Panel Lab Results Component Value Date CHLPL 184 08/22/2018 HDL 38 08/22/2018 CHOLHDL 4.8 08/22/2018 LDLDIRECT 122 08/22/2018 Health maintenance Health Maintenance Topic Date Due ??? Breast Cancer Shared Decision Needed 2011 ??? Pre-DM monitoring (HgbA1C or FBG) 06/06/2020 ??? Tetanus vaccine 07/30/2023 ??? Lipid Screening 08/22/2023 ??? PAP Smear 09/25/2023 ??? HPV test 09/25/2023 ??? Pneumo Increased Risk Completed ??? Influenza (Flu) vaccine Completed ??? Tdap adult Completed ??? HIV screen Completed Assessment and Plan: Tracie Layton is a 48 y.o. female with a history of obstructive lung disease, agoraphobia, depression, PTSD, impaired fasting glucose, HTN, GERD, obesity, and tobacco use who presents today for annual exam. Will follow-up acute and chronic medical issues in ~3 months. Annual exam - Screening mammography ordered - UTD on other screening and immunizations Hypertension, essential, benign - BMP today to check creatinine and electrolytes - Continue HCTZ and lisinopril at current doses given good control, assuming normal labs Microcytosis - Ferritin, iron, TIBC today Unintentional weight loss - Profound weight loss has stabilized - At risk for lung cancer in particular with smoking history - Patient is very anxious about possibility of lung cancer - Proceed with CT C/A/P Vomiting - Obstruction versus slow gastric transit - CT as above, then reassess EGD versus gastric emptying study Skin tags - She will call billing regarding out of pocket costs and consider removal at her f/u appt * Priya Sullivan RN - 11/28/2019 10:00 AM EST Pt tolerated lab draw from right antecubital * Danae Rowe MD - 11/28/2019 10:00 AM EST The case was discussed at the time of the visit or immediately after the visit. The assessment and plan were formulated in discussion with me and I agree with them as documented. I have reviewed the history, physical exam, assessment and plan with the resident. Major issues discussed today: 48 year old female with a history of ADHD, asthma, agoraphobia, depression, IFG, GERD, HTN, obesity, OA, PTSD, RLS and tobacco abuse, here for her annual exam. - Abnormal vaginal bleeding: Transvaginal ultrasound last month showed a thickened ill-defined endometrium but without focal masses to suggest a polyp. She is scheduled for follow up with OB later this month for endometrial biopsy. - Recurrent vomiting: Weight has stabilized, although vomiting persists and is occurring several times per day, including chewed foods. No marijuana use per her report. Has anxiety related to her mother's history of metastatic lung cancer. Reports a history of pain during upper endoscopy, which makes her less willing to pursue repeat endoscopy. - Tobacco abuse: Still smoking 1/2 - 1 PPD. Has not yet picked up her nicotine inhaler. - Depression: Reports mood is good at this time, after a difficult year that involved multiple deaths in the family. 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 Lives with her male partner. 3 children. No illicit drug use. Rare alcohol use. Vitals: 11/28/19 1013 BP: 122/80 BP Location (NBP): Left arm Patient Position: Sitting BP Cuff Sizes: Large Adult (32-43 cm) Pulse: (!) 103 Temp: 36.8 ??C (98.2 ??F) TempSrc: Oral SpO2: 99% Weight: 118.3 kg (260 lb 12.8 oz) Height: 174.5 cm (5' 8.7) Per Dr Riley, well-appearing obese middle-aged woman in no acute distress Lungs CTAB, with mildly reduced air movement throughout +Skin tags on neck, +SKs on back Plan: 48 year old female with a history of ADHD, asthma, agoraphobia, depression, IFG, GERD, HTN, obesity, OA, PTSD, RLS and tobacco abuse, here for her annual exam. 1. Abnormal vaginal bleeding: follow up with [facility] as planned for endometrial biopsy 2. HTN: Continue lisinopril and HCTZ. BMP today. 3. Recurrent vomiting with weight loss: Weekend Caregiver to help arrange CT chest/abdomen/pelvis per her strong preference; if unrevealing, would pursue EGD/gastric emptying study 4. Tobacco abuse: Pre-contemplative. Continue to encourage cessation. 5. Microcytosis: CBC and iron studies today to further evaluate 6. Healthcare maintenance: Referral for screening mammogram, which she elects to do [id number]. Follow up in 3 months, sooner as needed. documented in this encounter Plan of Treatment Upcoming Encounters Date Type Department Care Team (Late st Contact Info) Description 09/05/2024 9:00 AM EDT Office Visit Internal Medicine at [address] [address] Gema Oliveira [facility] [place] [address] documented as of this encounter Procedures Procedure Name Priority Date/Time Associated Diagnosis Comments HC IRON BINDING CAPACITY Routine 11/28/2019 10:28 AM EST Microcytosis HC FERRITIN, SERUM Routine 11/28/2019 10 :28 AM EST Microcytosis HC VENIPUNCTURE Routine 11/28/2019 10:28 AM EST Hypertension, essential, benign documented in this encounter Results * (ABNORMAL) Iron and TIBC (11/28/2019 10:28 AM EST) Iron 40 30 - 150 mcg/dL [facility] TIBC 339 250 - 450 mcg/dL [facility] Iron Saturation 12(L) 20 - 50 % [facility] Blood specimen (specimen) 11/28/2019 10:28 AM EST 11/28/2019 12:21 PM EST Narrative Resulting Agency Comment Spec In Lab Ragini Unger MD CHEMISTRY ORDERABLES Performing Organization Address [facility]/ZIP Co de Phone Number [facility] [place] [place] [address] * (ABNORMAL) Ferritin (11/28/2019 10:28 AM EST) Ferritin 11(L) 15 - 150 ng/mL [facility] Comment: Pediatric reference ranges not verified at [facility], interpret with caution. Reference ranges for females greater than 50 years of age approach values for men, i.e., 30-400 ng/mL. Blood specimen (specimen) 11/28/2019 10:28 AM EST 11/28/2019 12:21 PM EST Narrative Resulting Agency Comment Spec In Lab Ragini Unger MD CHEMISTRY ORDERABLES Performing Organization Address City/[facility]/ZIP Co de Phone Number [facility] [place] [address] * Basic Metabolic Panel (non-fasting) (11/28/2019 10:28 AM EST) Glucose 131 65 - 199 mg/dL [facility] Comment:Diabetes: >=200 mg/d L plus symptoms Blood Urea Nitrogen 12 8 - 18 mg/dL [facility] Creatinine 0.99 0.70 - 1.20 mg/dL [facility] Sodium 139 135 - 145 mmol/L [facility] Potassium 3.9 3.5 - 5.0 mmol/L [facility] Comment: Please note: ??Patients with WBC >100,000 may have falsely elevated Potassium levels. ??For accurate Potassium quantification in these patients send serum separator tube (gold top) for subsequent determinations. ??Contact the Clinical Chemistry Laboratory if there are any questions. Chloride 102 98 - 107 mmol/L [facility] Carbon Dioxide 24 22 - 31 mmol/L [facility] Anion Gap 13 5 - 15 mmol/L [facility] Calcium 9.2 8.5 - 10.5 mg/dL [facility] Est Glomerular Filtration Rate 68 >=60 mL/min/1. 73 m?? [facility] Comment: The eGFR was calculated using the CKD-EPI equation. As with all creatinine based estimates of kidney function, eGFR values calculated with the CKD-EPI equation are not accurate in patients with acute kidney failure, extremes of body mass or the acutely ill. [email or web address] eGFR 79 >=60 mL/min/1. 73 m?? [facility] Comment: The eGFR was calculated using the CKD-EPI equation. As with all creatinine based estimates of kidney function, eGFR values calculated with the CKD-EPI equation are not accurate in patients with acute kidney failure, extremes of body mass or the acutely ill. [email or web address] Blood specimen (specimen) 11/28/2019 10:28 AM EST 11/28/2019 12:21 PM EST Narrative Resulting Agency Comment Spec In Lab Froilan Crane MD CHEMISTRY ORDERABLES [facility] [place] [address] documented in this encounter Visit Diagnoses Diagnosis Annual physical exam Routine general medical examination at a health care facility Hypertension, essential, benign Essential hypertension, benign Microcytosis Other abnormality of red blood cells Breast cancer screening by mammogram Weight loss Loss of weight Vomiting, intractability of vomiting not specified, presence of nausea not specified, unspecified vomiting type Tobacco abuse Tobacco use disorder documented in this encounter Care Teams Prosthetics Technician Relationship Specialty Start Date End Date Marguerite Riley MD [facility] [place] [address] PCP - General General Internal Medicine 08/15/1704/22 documented as of this encounter
--- OUTSIDE RECORDS SUMMARY | 2024-07-12 00:30 | XMS_ITS | Encounter Summary ---
Author Organization [facility] [place] [address] Care Team Providers Care Non Clinical Advisor Name Role Phone Marguerite Riley MD Primary Care Provider [phone] Reason for Referral * Diagnostic Test (Routine) - Closed Specialty Diagnoses / Procedures Referred By Contac t Referred To Contact Radiology Diagnoses Unintentional weight loss Procedures CT Chest Abdomen Pelvis w Contrast (Generic) Marguerite Riley MD [facility] [place] [address] [facility] [place] [address] Referral ID Status Reason Start Date Expiration Date V isits Requested Visits Authorized [id number] Closed Specialty Service Requested 12/04/2019 03/03/2020 1 1 Reason for Visit * Diagnostic Test (Routine) - Closed Specialty Diagnoses / Procedures Referred By Contac t Referred To Contact Radiology Diagnoses Unintentional weight loss Procedures CT Chest Abdomen Pelvis w Contrast (Generic) Marguerite Riley MD [facility] [place] [address] [facility] [place] [address] Referral ID Status Reason Start Date Expiration Date V isits Requested Visits Authorized [id number] Closed Specialty Service Requested 12/04/2019 03/03/2020 1 1 Encounter Details Date Type Department Care Team (Latest Contact Info) Description 12/20/2019 12:42 PM EST - 12/20/2019 11:59 PM EST Hospital Encounter CT Scan at [facility] [place] [address] Froilan Crane MD [facility] [place] [address] Unintentional weight loss Discharge Disposition: Home Social History Tobacco Use [...] Sig Dispensed Refills Start Date End Date Incontinence Pad, Liner, Disp Pad 1 each by Misc.(Non-Drug; Combo Route) route every 4 hours as needed (for incontinence). 200 each 11 10/03/2019 ferrous sulfate (IRON, FERROUS SULFATE,) 325 mg (65 mg iron) Tablet Take 1 tablet by mouth daily. Take with acidic drink (OJ). Decrease to three times per week if causing constipation. 30 tablet 12 11/28/2019 03/25/2020 ipratropium-albuterol (DUONEB) 0.5 mg-3 mg(2.5 mg base)/3 mL Solution for Nebulization INHALE THE CONTENTS OF 1 VIAL BY NEBULIZATION EVERY 4 HOURS NEEDED 180 mL 5 11/27/2019 12/16/2023 lisinopril (PRINIVIL;ZESTRIL) 40 mg TabletIndications:Ess ential hypertension Take 1 tablet by mouth daily. 90 tablet 3 11/05/2019 09/17/2020 diclofenac (VOLTAREN) 1 % Gel Apply 2 g topically 4 times daily as needed (pain, apply to low back.). 100 g 3 11/05/2019 03/09/2020 buPROPion SR (WELLBUTRIN SR) 150 mg tablet sustained-release 12 hrIndications:smoking cessation Take 1 tablet by mouth 2 times daily. Once daily for 3 days then twice/day. Indications: Stop Smoking 90 tablet 3 11/04/2019 09/17/2020 albuterol (PROAIR HFA) 90 mcg/actuation HFA Aerosol InhalerIndications:Mi ld intermittent asthma without complication Inhale 2 puffs into the lungs every 4 hours as needed for Wheezing. Use with spacer 1 Inhaler 3 11/04/2019 12/27/2019 nicotine (NICOTROL) 10 mg Cartridge Inhale 1 puff into the lungs as needed for Smoking cessation. 42 each 1 11/04/2019 02/24/2020 omeprazole (PRILOSEC) 40 mg Capsule, Delayed Release(E.C.)Indicati ons:Gastroesophageal reflux disease without esophagitis Take 1 capsule by mouth daily. 90 capsule 3 10/07/2019 09/17/2020 hydroCHLOROthiazide (HYDRODIURIL) 25 mg Tablet Start with one-HALF tablet by mouth daily, then increase to ONE tablet by mouth daily after 7 days. 90 tablet 3 10/03/2019 03/25/2020 DULoxetine (CYMBALTA) 30 mg Capsule, Delayed Release(E.C.) Take 2 capsules by mouth daily. 180 capsule 3 06/19/2019 09/17/2020 metFORMIN (GLUCOPHAGE-XR) 500 mg Tablet Sustained Release 24 hr Take 1 tablet by mouth daily. After two weeks, take 2 tablets by mouth daily (1,000mg total dose). 180 tablet 3 05/07/2019 03/25/2020 documented as of this encounter Plan of Treatment Upcoming Encounters Date Type Department Care Team (Late st Contact Info) Description 09/05/2024 9:00 AM EDT Office Visit Internal Medicine at [address] [address] Gema Oliveira, [facility] [place] [address] documented as of this encounter Procedures Procedure Name Priority Date/Time Associated Diagnosis Comments CT CHEST ABDOMEN PELVIS W CONTRAST (GENERIC) Routine 12/20/2019 3:58 PM EST Unintentional weight loss documented in this encounter Results * CT Chest Abdomen Pelvis w Contrast (Generic) (12/20/2019 3:58 PM EST) Anatomical Region Laterality Modality Abdomen, Pelvis Computed Tomogra phy Impressions 12/20/2019 4:53 PM EST 1. ??No acute findings 2. ??Three ??5 mm pulmonary nodules, as described above. In a smoker would recommend a 12 month interval follow-up. 3. ??No solid organ pathology. Thank you for letting us participate in the care of this patient. For questions regarding this report, please contact the number below. ? Narrative 12/20/2019 4:53 PM EST EXAMINATION: CT CHEST ABDOMEN PELVIS W CONTRAST (GENERIC) CLINICAL HISTORY: ongoing unintentional weight loss in a smoker, now with intermittent nausea/vomiting, assess for pulmonary versus GI malignancy, patient deferred endoscopy TECHNIQUE: Helical CT of the chest, abdomen, and pelvis was performed following the intravenous administration of contrast. Administered 120.0 ml of OMNIPAQUE 350.00 mg/ml. Oral contrast was administered. COMPARISON: The abdominal and pelvic portion of examination is compared to study from 02/08/2015 FINDINGS: Chest: Lungs and large airways: 5 mm oval nodular density LEFT upper lobe. A second, indeterminate subpleural 5 mm nodule is seen in the LEFT lower lobe. 5 mm peripherally located RIGHT lower lobe pulmonary nodule No areas of airspace consolidation. Pleura: No effusion. Heart/vasculature: Normal. Lymph nodes: No enlarged lymph nodes. Mediastinum and jono: Normal. Abdomen/pelvis: Liver: Normal size and attenuation without lesions. Bile ducts: Nondilated. Gallbladder: No calcified gallstones. Normal caliber wall. Pancreas: Normal attenuation without ductal dilatation. Spleen: Normal. Adrenals: Normal. Kidneys: Normal. Symmetric renal enhancement. No renal collecting system obstruction bilaterally Urinary Bladder: Normal. Vasculature: No aneurysm. Lymph Nodes: ??No enlarged lymph nodes. Bowel: Nondilated, no wall thickening. ?? Peritoneum and mesentery: No ascites, free air, or loculated fluid collection. No mesenteric inflammation. Abdominal wall: Normal. Reproductive organs: 4.5 cm cystic lesion LEFT adnexa, sigmoid with the LEFT ovary. The RIGHT adnexa is normal. Osseous structures: No suspicious lesions. Procedure Note Gonsalo Stephenson MD - 12/20/2019 EXAMINATION: CT CHEST ABDOMEN PELVIS W CONTRAST (GENERIC) CLINICAL HISTORY: ongoing unintentional weight loss in a smoker, nowwith intermittent nausea/vomiting, assess for pulmonary versus GI malignancy,patient deferred endoscopy TECHNIQUE: Helical CT of the chest, abdomen, and pelvis was performedfollowing the intravenous administration of contrast. Administered 120.0 ml ofOMNIPAQUE 350.00 mg/ml. Oral contrast was administered. COMPARISON: The abdominal and pelvic portion of examination is compared tostudy from 02/08/2015 FINDINGS: Chest: Lungs and large airways: 5 mm oval nodular density LEFT upper lobe. Asecond, indeterminate subpleural 5 mm nodule is seen in the LEFT lower lobe. 5mm peripherally located RIGHT lower lobe pulmonary nodule No areas ofairspace consolidation. Pleura: No effusion. Heart/vasculature: Normal. Lymph nodes: No enlarged lymph nodes. Mediastinum and jono: Normal. Abdomen/pelvis: Liver: Normal size and attenuation without lesions. Bile ducts: Nondilated. Gallbladder: No calcified gallstones. Normal caliber wall. Pancreas: Normal attenuation without ductal dilatation. Spleen: Normal. Adrenals: Normal. Kidneys: Normal. Symmetric renal enhancement. No renal collecting system obstruction bilaterally Urinary Bladder: Normal. Vasculature: No aneurysm. Lymph Nodes: No enlarged lymph nodes. Bowel: Nondilated, no wall thickening. Peritoneum and mesentery: No ascites, free air, or loculated fluidcollection. No mesenteric inflammation. Abdominal wall: Normal. Reproductive organs: 4.5 cm cystic lesion LEFT adnexa, sigmoid with theLEFT ovary. The RIGHT adnexa is normal. Osseous structures: No suspicious lesions. IMPRESSION 1. No acute findings 2. Three 5 mm pulmonary nodules, as described above. In a smoker would recommend a 12 month interval follow-up. 3. No solid organ pathology. Thank you for letting us participate in the care of this patient. Forquestions regarding this report, please contact the number below. Froilan Crane MD IMG CT ORDERABLES documented in this encounter Visit Diagnoses Diagnosis Unintentional weight loss Loss of weight documented in this encounter Administered Medications Inactive Administered Medications - up to 3 most recent administrations Medication Order MAR Action Action Date Dose Rate Site iohexoL (OMNIPAQUE) 350 mg/mL solution 0-200 mL 0-200 mL, Intravenous, ONCE PRN, 1 dose, Starting on Mon12/20/19 at 1552, Until Mon12/20/19 at 1552, Per Protocol, Warning Vesicant/Irritant Medication , Radiology Contrast, Routine Given 12/20/2019 3:52 PM EST 120 mLs iohexoL (OMNIPAQUE) 350 mg/mL solution 0-50 mL 0-50 mL, Oral, ONCE PRN, 1 dose, Starting on Mon12/20/19 at 1552, Until Mon12/20/19 at 1552, Per Protocol, Warning Vesicant/Irritant Medication , Radiology Contrast, Routine Given 12/20/2019 3:52 PM EST 50 mLs documented in this encounter Care Teams Non Clinical Advisor Relationship Specialty Start Date End Date Marguerite Riley MD [facility] [place] [address] PCP - General General Internal Medicine 08/15/1704/22 documented as of this encounter
--- OUTSIDE RECORDS SUMMARY | 2024-07-12 00:30 | XMS_ITS | Encounter Summary ---
[place] [address] Care Team Providers Care Knuckle Strap Sewer Name Role Phone Tasneem Galdamez MD Primary Care Provider [phone] Reason for Visit * Reason Onset Date Comments Triage 03/23/2020 Encounter Details Date Type Department Care Team (Late st Contact Info) Description 03/23/2020 Telephone Internal Medicine at [address] [address] Mili Dwyer Triage Social History Tobacco Use Types Packs/Day Years [...] encounter Miscellaneous Notes * Telephone Encounter - Mili Dwyer - 03/23/2020 10:30 AM EDT Please call patient to discuss Emergency Room Follow Up Reason for the Emergency Room visit: right lower quad pain on period Name of the facility where patient was seen: [facility] Symptomatic now: unknown- hospital called to notify PCP and is faxing over information today Other information:Pt had a CT done and jodi finding with pulm nodules. - A CT is recommend ed in 6-12 mos. Caller and Relationship (if other than patient): Pratibha Best time to call back: any Okay to leave a message: y Okay to send my- message: n Nurse contacted via: Message: y Call: n Pager: n documented in this encounter Plan of Treatment Upcoming Encounters Date Type Department Care Team (Late st Contact Info) Description 09/05/2024 9:00 AM EDT Office Visit Internal Medicine at [place] [id number] Gema Oliveira DO [facility] [address] INTERNAL [place] [address] documented as of this encounter Visit Diagnoses Not on filedocumented in this encounter Care Teams Knuckle Strap Sewer Relationship Specialty Start Date End Date Tasneem Galdamez MD [facility] [address] [facility] [place] [address] PCP - General General Internal Medicine 05/20/20 6/2 06/11 documented as of this encounter
--- OUTSIDE RECORDS SUMMARY | 2024-07-12 00:30 | XMS_ITS | Encounter Summary ---
Author Organization [facility] [place] [address] Care Team Providers Care Channeler Insole Name Role Phone Gema Oliveira DO Primary Care Provider [phone] Reason for Visit * Reason Onset Date Comments Medication Refill 11/03/2020 Encounter Details Date Type Department Care Team (Late st Contact Info) Description 11/03/2020 Refill Internal Medicine at [address] [address] Tasneem Galdamez MD [facility] [address] Essential hypertension Social History Tobacco Use Types [...] EDT Office Visit Internal Medicine at [address] [address] Gema Oliveira DO [facility] [address] [address] documented as of this encounter Visit Diagnoses Diagnosis Essential hypertension Unspecified essential hypertension documented in this encounter Additional Health Concerns Infection Onset Date Last Indicated Resolved Time Rule Out Respiratory 12/15/2023 12/15/2023 024 8:51 PM EST Rule Out COVID-19 12/15/2023 12/15/2023 12/15/2023 4:42 PM EST RSV 12/15/2023 12/15/2023 12/25/2023 8:09 PM EST documented as of this encounter Care Teams Channeler Insole Relationship Specialty Start Date End Date Gema Oliveira DO [facility] [address] PCP - General General Internal Medicine 05/17/23 documented as of this encounter
--- OUTSIDE RECORDS SUMMARY | 2024-07-12 00:30 | XMS_ITS | Encounter Summary ---
Author Organization [facility] [place] [address] Care Team Providers Care Metal Inspector Name Role Phone Tasneem Galdamez MD Primary Care Provider [phone] Reason for Visit * Reason Comments Medication Refill Encounter Details Date Type Department Care Team (Late st Contact Info) Description 10/02/2020 Refill Internal Medicine at [address] [address] Tasneem Galdamez MD [facility] [address] Impaired fasting glucose Social History Tobacco Use Types Packs/Day Years [...] AM EDT Office Visit Internal Medicine at [address] [address] Gema Oliveira DO [facility] [address] [address] documented as of this encounter Visit Diagnoses Diagnosis Impaired fasting glucose documented in this encounter Care Teams Metal Inspector Relationship Specialty Start Date End Date Tasneem Galdamez MD [facility] [place] [address] PCP - General General Internal Medicine 05/20/2004/21 documented as of this encounter
--- OUTSIDE RECORDS SUMMARY | 2024-07-12 00:30 | XMS_ITS | Encounter Summary ---
[place] [address] Care Team Providers Care Tray Drier Operator Name Role Phone Tasneem Galdamez MD Primary Care Provider [phone] Reason for Referral * Consultation (Routine) - Closed Specialty Diagnoses / Procedures Referred By Contabdulkadir t Referred To Contact Internal Medicine Diagnoses Current moderate episode of major depressive disorder, unspecified whether recurrent PTSD (post-traumatic stress disorder) Anxiety Agoraphobia Tasneem Galdamez MD [facility] [place] [address] [address] Referral ID Status Reason Start Date Expiration Date V isits Requested Visits Authorized [id number] Closed Specialty Service Requested 10/29/2020 10/29/2021 1 1 Reason for Visit * Reason Comments Anxiety Follow up - 5 wk Depression Follow up - 5 wk Encounter Details Date Type Department Care Team (Late st Contact Info) Description 10/29/2020 9:30 AM EST Office Visit Internal Medicine at [address] [address] Tasneem Galdamez MD [facility] [place] [address] Current moderate episode of major depressive disorder, unspecified whether recurrent; PTSD (post-traumatic stress disorder); Anxiety; Agoraphobia; Smoking; Nicotine dependence, cigarettes, uncomplicated Social History Tobacco [...] Sign Reading Time Taken Comments Blood Pressure 128/85 10/29/2020 9:25 AM EST Pulse 102 10/29/2020 9:25 AM EST Temperature 36.7 ??C (98 ??F) 10/29/2020 9:2 5 AM EST Respiratory Rate - - Oxygen Saturation 99% 10/29/2020 9:2 5 AM EST Inhaled Oxygen Concentration - - Weight 119.8 kg (264 lb 3.2 oz) 10/29/2020 9:25 AM EST Height 175.3 cm (5' 9) 10/29/2020 9:25 AM EST approx - patient reported Body Mass Index 39.02 10/29/2020 9:25 AM EST documented in this encounter Patient Instructions * Patient Instructions* Tasneem Galdamez MD - 10/29/2020 9:30 AM EST Tobacco Treatment: Varenicline / Chantix The active ingredient in Varenicline/Chantix works in two ways. It cuts the pleasure of smoking andalso reduces the withdrawal symptoms. Start taking this medication one week before your quit date. It comes in a dose pack. The first week pack contains white pills that are 0.5 mg tablets. Take 0.5 mg once a day for 3 days then increase to 0.5 mg twice a day for 4 days. Then increase to 1 mg (bluetablets) twice a day for 3 months. This medication should be taken in the middle of your largest meal(s) with a full glass of water. DO NOT TAKE ON AN EMPTY STOMACH. One course of Varenicline/Chantixis 3 months, two courses is 6 months. Taking Varenicline/Chantix for 2 courses, or 6 months, may significantly increase your chances of quitting tobacco successfully for good! The most common side effect is nausea and this can be reduced by taking as directed above. You may also experience difficulty sleeping or abnormal/vivid or strange dreams. This may be reduced by taking the medication earlier in the day. Be sure to take with enough food to avoid nausea. References: Treating Tobacco Use and Dependence, Clinical Practice Guideline 2008 Update, U.S. Department of Health and Human Services, March 2008 U.S. Food and Drug Administration Recommendations, revised directions for use of Nicotine Replacement Therapy , February 19, 2013: https://www.federalregister.gov/articles//2013-43279/modifications-to- ftixywrj-ad-ctrmlpvl-uagdclhzbsi-iozlpcj-xwvapwbx-xgl-jisd-dfx-lwlsati-ohhed-uxq documented in this encounter Progress Notes * Tasneem Galdamez MD - 10/29/2020 9:30 AM EST Subjective: Patient ID: Tracie Layton is a 49 y.o. female. HPI Chief Complaint Patient presents with ??? Anxiety Follow up - 5 wk ??? Depression Follow up - 5 wk Follow up for depression and anxiety, last seen the end of August. Since her hysterectomy in May 2020 she has struggled with worsening depression and anxiety. Additionally has agoraphobia and struggles to leave the house. She has tried several SSRIs in the past without much success. At our most recent visit she endorsed stopping all medications. We had started Trintellix with PRN Hydroxyzine atthat time. Today, she thinks the mood has been improving. She also has a new grandson and has been spending a lot of time with them which has also helped. Unfortunately, continues to sleep poorly and attributesa lot of the lack of sleep to anxiety and mind racing. The Atarax has been less helpful. She has only taken it a few times and stopped because she hasn't seen a difference. The anxiety is not gettingworse, but its still not getting better. If she goes out by herself she does have panic attacks with heart racing and sweats. However, she also has anxiety at baseline at home. She has tried Bupropion in the past without much success. She has had a counselor in the past, but has not reconnected with one since our last visit. Was previously using Chantix for smoking cessation with good successful in the past. Notes it did cause nightmares, however she felt the benefits outweighed the side effects. She would like to try this again. Currently smoking 1/2 pack a day. Notes the patches cause her skin to break out and has not been successful with the gum/lozenges. Review of Systems Constitutional: Positive for fatigue. Negative for fever. Respiratory: Negative for cough and shortness of breath. Cardiovascular: Negative for chest pain. Gastrointestinal: Negative for abdominal pain, constipation and diarrhea. Psychiatric/Behavioral: Positive for sleep disturbance. The patient is nervous/anxious. Objective: BP 128/85 (BP Location (NBP): Left arm, Patient Position: Sitting, BP Cuff Sizes: Large Adult (32-43 cm)) Comment (BP Cuff Sizes): Long cuff Pulse (!) 102 Temp 36.7 ??C (98 ??F) (Temporal) Ht 175.3 cm (5' 9) Comment: approx - patient reported Wt 119.8 kg (264 lb 3.2 oz) LMP 10/06/2019 (Exact Date) SpO2 99% BMI 39.02 kg/m?? PHQ-9 QUESTIONNAIRE SCORE ONLY (AMB) 10/29/2020 PHQ - 9 Score (Patient) 12 (Moderate Depression) Some recent data might be hidden Wt Readings from Last 3 Encounters: 10/29/20 119.8 kg (264 lb 3.2 oz) 09/17/20 119.1 kg (262 lb 9.6 oz) 12/02/19 119.7 kg (263 lb 12.8 oz) Physical Exam Constitutional: Appearance: Normal appearance. She is not ill-appearing. HENT: Head: Normocephalic and atraumatic. Cardiovascular: Rate and Rhythm: Tachycardia present. Pulses: Normal pulses. Neurological: General: No focal deficit present. Mental Status: She is alert and oriented to person, place, and time. Psychiatric: Mood and Affect: Mood normal. Affect is flat. Speech: Speech normal. Behavior: Behavior normal. Behavior is cooperative. Assessment and Plan: Tracie was seen today for anxiety and depression. Overall, she feels her mood has improved with the Trintellix. However, anxiety is still a problem and there is still some room to improve with her mood. In that setting, will increase the Trintellix to 20mg daily. The Hydroxyzine has not been useful for anxiety and so will discontinue at this time. Discussed the importance of talk therapy in combination with the medications. She has seen psychiatry in the past, but is not interested in pursuing an appointment with them now. Encouraged her to continue to seek out a counselor and will refer to our behavior health therapists at this time. Additionally, she continues to smoke 1/2 pack a day. She previously has been on Chantix with good success and wants to try this again. She did note that she had nightmares with the Chantix but feels the benefit outweighed this. Will follow up with her in 1 month. Diagnoses and all orders for this visit: Current moderate episode of major depressive disorder, unspecified whether recurrent - Referral to Adult Behavioral Health Clinician - Increase vortioxetine (Trintellix) 20 mg Tablet; Take 20 mg by mouth daily. - She is resistant to seeing a psychiatrist at this time; we can consider an econsult to them as needed PTSD (post-traumatic stress disorder) Anxiety Agoraphobia - Referral to Adult Behavioral Health Clinician - vortioxetine (Trintellix) 20 mg Tablet; Take 20 mg by mouth daily. - No success with bupropion nor hydroxyzine in the past - Can consider a benzodiazepine in the future, if the increase in the trintellix is not helpful Nicotine dependence, cigarettes, uncomplicated - varenicline (Chantix) 0.5 mg Tablet; Take by mouth with meals. Days 1-3: 0.5 mg ONCE daily. Days 4-7: 0.5 mg TWICE daily. Day 8 until the end of treatment: 1 mg TWICE daily. * Eb Whitney MD - 10/29/2020 9:30 AM EST Tracie Layton is a 49 y.o. who presents for a follow-up regarding depression. She was started on vortioxetine which has somewhat improved her depression. She remains quite anxious and is having panic attacks in social situations. - increase vortioxetine to 20mg daily - she is resistant to the idea of a psychiatrist today. Is willing to see a therapist, to whom we will refer - can use psych econsults as needed in interim - follow-up in 1 month response to treatment I have seen the patient and The case was discussed at the time of the visit. I have reviewed the history, physical exam, assessment, and plan with the resident. The assessment and plan were formulated in discussion with me and I agree with them as documented, except as detailed in my attestation. documented in this encounter Plan of Treatment Upcoming Encounters Date Type Department Care Team (Late st Contact Info) Description 09/05/2024 9:00 AM EDT Office Visit Internal Medicine at [address] [address] Gema Oliveira DO [facility] [address] [address] Scheduled Referrals Name Type Priority Associated Diagnoses Orde r Schedule Referral to Adult Behavioral Health Clinician Outpatient Referral Routine Current moderate episode of major depressive disorder, unspecified whether recurrent PTSD (post-traumatic stress disorder) Anxiety Agoraphobia Ordered: 10/29/2020 documented as of this encounter Visit Diagnoses Diagnosis Current moderate episode of major depressive disorder, unspecified whether recurrent PTSD (post-traumatic stress disorder) Posttraumatic stress disorder Anxiety Anxiety state, unspecified Agoraphobia Agoraphobia without mention of panic attacks Smoking Tobacco use disorder Nicotine dependence, cigarettes, uncomplicated documented in this encounter Care Teams Tray Drier Operator Relationship Specialty Start Date End Date Tasneem Galdamez MD [facility] [address] [address] PCP - General General Internal Medicine 05/20/2004/21 documented as of this encounter
--- OUTSIDE RECORDS SUMMARY | 2024-07-12 00:30 | XMS_ITS | Encounter Summary ---
Author Organization [facility] Address [facility] [place] [address] Care Team Providers Care Retail Pharmacy Merchandiser Name Role Phone Tasneem Galdamez MD Primary Care Provider [phone] Encounter Details Date Type Department Care Team (Late st Contact Info) Description 08/23/2021 Refill Internal Medicine at [facility] [address] [place] [address] Tasneem Galdamez MD [facility] [place] [address] Social History Tobacco Use Types Packs/Day Years [...] Telephone Encounter - Joya Mcdonald RN - 08/23/2021 12:53 PM EDT Phoned pharmacy, chantix no longer being made or availalable on market will need a PA/override for generic * Telephone Encounter - Chreie Loving - 08/23/2021 12:36 PM EDT Pharmacy or caller: Barbara from [facility] Medication: Chantix 1 mg Message: The Rx came over as [facility], but they can't fill this because Chantix was recalled/ discontinued. They will need a prescription for the generic version - Varenicline. Did you contact your pharmacy?: yes documented in this encounter Plan of Treatment Upcoming Encounters Date Type Department Care Team (Late st Contact Info) Description 09/05/2024 9:00 AM EDT Office Visit Internal Medicine at [address] [id number] Gema Oliveira, [facility] [place] [address] documented as of this encounter Visit Diagnoses Not on filedocumented in this encounter Care Teams Retail Pharmacy Merchandiser Relationship Specialty Start Date End Date Tasneem Galdamez MD [facility] [address] [address] PCP - General General Internal Medicine 05/20/2004/21 documented as of this encounter
--- OUTSIDE RECORDS SUMMARY | 2024-07-12 00:30 | XMS_ITS | Encounter Summary ---
Author Organization [facility] [place] [address] Care Team Providers Care Urban And Regional Planner Name Role Phone Marguerite Riley MD Primary Care Provider [phone] Reason for Visit * Reason Comments Medication Refill Encounter Details Date Type Department Care Team (Late st Contact Info) Description 03/07/2020 Refill Internal Medicine at [address] [address] Marguerite Riley MD [facility] INTERNAL [place]IC[place] [address] Social History Tobacco Use Types Packs/Day Years [...] EDT Office Visit Internal Medicine at [address] [address] Gema Oliveira DO [facility] [address] [place] [address] documented as of this encounter Visit Diagnoses Not on filedocumented in this encounter Care Teams Urban And Regional Planner Relationship Specialty Start Date End Date Marguerite Riley MD [facility] [place] [address] PCP - General General Internal Medicine 08/15/1704/22 documented as of this encounter
--- OUTSIDE RECORDS SUMMARY | 2024-07-12 00:30 | XMS_ITS | Encounter Summary ---
Author Organization [facility] [place] [address] Care Team Providers Care Keller Machine Operator Name Role Phone Marguerite Riley MD Primary Care Provider [phone] Reason for Visit * Reason Comments Medication Refill Encounter Details Date Type Department Care Team (Late st Contact Info) Description 12/27/2019 Refill Internal Medicine at [address] [address] Marguerite Riley MD [facility] [place] [address] Mild intermittent asthma without complication Social History Tobacco Use Types Packs/Day Years [...] EDT Office Visit Internal Medicine at [address] [address] Gema Oliveira DO [facility] [address] [place] [address] documented as of this encounter Visit Diagnoses Diagnosis Mild intermittent asthma without complication Unspecified asthma documented in this encounter Care Teams Keller Machine Operator Relationship Specialty Start Date End Date Marguerite Riley MD [facility] [place] [address] PCP - General General Internal Medicine 08/15/1704/22 documented as of this encounter
--- OUTSIDE RECORDS SUMMARY | 2024-07-12 00:30 | XMS_ITS | Encounter Summary ---
Author Organization [facility] Address [facility] [place] [address] Care Team Providers Care Styrene Dehydration Reactor Operator Name Role Phone Marguerite Riley MD Primary Care Provider [phone] Reason for Visit * Reason Comments Other ED follow-up Encounter Details Date Type Department Care Team (Late st Contact Info) Description 03/25/2020 2:30 PM EDT TH Visit (TeleHealth) Internal Medicine at [address] [address] Marguerite Riley MD [facility] [address] Abnormal uterine bleeding; Hypertension, essential, benign; Impaired fasting glucose; Breast mass, left; Vitamin D deficiency; Breast cancer screening by mammogram Social History Tobacco Use Types Packs/Day Years [...] as of this encounter Progress Notes * Marguerite Riley - 03/25/2020 2:30 PM EDT Telephone Based Clinical Care Note Tracie Layton verbally consented to conduct this clinical encounter by telephone. She acknowledgesthat her insurance may be billed for the care provided, similar to an in person appointment. Tracie Layton is in the following location at the time of the phone call: at daughter's in [place], [place] Reason for visit/chief complaint: Chief Complaint Patient presents with ??? Other ED follow-up Current Medications (which were reviewed during the telephone visit): Medications 03/25/20 1443 Medication Sig Taking? norethindrone (Aygestin) 5 mg Tablet Take 5 mg by mouth 2 times daily. Yes diclofenac (VOLTAREN) 1 % Gel APPLY 2 GRAMS TOPICALLY FOUR TIMES DAILY NEEDED FOR LOWER BACK PAIN Yes nicotine (Nicotrol) 10 mg Cartridge Inhale 1 puff into the lungs as needed for Smoking cessation. Yes ProAir HFA 90 mcg/actuation HFA Aerosol Inhaler INHALE 2 PUFFS BY MOUTH INTO THE LUNGS EVERY 4 HOURS NEEDED FOR WHEEZING, USE WITH SPACER Yes ferrous sulfate (IRON, FERROUS SULFATE,) 325 mg (65 mg iron) Tablet Take 1 tablet by mouth daily. Take with acidic drink (OJ). Decrease to three times per week if causing constipation. Patient taking differently: Take 325 mg by mouth three times a week. Yes ipratropium-albuterol (DUONEB) 0.5 mg-3 mg(2.5 mg base)/3 mL Solution for Nebulization INHALE THE CONTENTS OF 1 VIAL BY NEBULIZATION EVERY 4 HOURS NEEDED Yes lisinopril (PRINIVIL;ZESTRIL) 40 mg Tablet Take 1 tablet by mouth daily. Yes buPROPion SR (WELLBUTRIN SR) 150 mg tablet sustained-release 12 hr Take 1 tablet by mouth 2 times daily. Once daily for 3 days then twice/day. Indications: Stop Smoking Yes omeprazole (PRILOSEC) 40 mg Capsule, Delayed Release(E.C.) Take 1 capsule by mouth daily. Yes Incontinence Pad, Liner, Disp Pad 1 each by [facility].(Non-Drug; Combo Route) route every 4 hours as needed (for incontinence). Yes hydroCHLOROthiazide (HYDRODIURIL) 25 mg Tablet Start with one-HALF tablet by mouth daily, then increase to ONE tablet by mouth daily after 7 days. Patient taking differently: 25 mg daily. Yes DULoxetine (CYMBALTA) 30 mg Capsule, Delayed Release(E.C.) Take 2 capsules by mouth daily. Yes metFORMIN (GLUCOPHAGE-XR) 500 mg Tablet Sustained Release 24 hr Take 1 tablet by mouth daily. Aftertwo weeks, take 2 tablets by mouth daily (1,000mg total dose). Patient taking differently: Take 500 mg by mouth daily. Yes Blood pressure 137/92 at recent outpatient visit Documentation of content of discussion: Abnormal uterine bleeding, abdominal pain She had a thickened endometrium on US at [facility], prompting endometrial biopsy with EARLY CHILDHOOD EDUCATION INSTRUCTOR which was negative. She's essentially had ongoing bleeding since. She then had acute adominal pain prompting ED visit to [facility] (seen scanned docs). CT showed an ovarian cyst, which thought to be the source of her pain, and endometrial thickening. She was referred to EARLY CHILDHOOD EDUCATION INSTRUCTOR at [facility] to notify them of previous workup. She was started on norethindrone 5mg BID with some improvement in bleeding. She is planning to have hysteroscopy, D&C, and NovaSure endometrial ablation; Dr. Schaeffer feels a polyp may be contributing to this picture. Her abdominal pain have improved some since her visit. Her bleeding is slightly im proved. She is on iron supplement for iron deficiency ([facility] 2/2 to E[employer] CHILDHOOD EDUCATION INSTRUCTOR blood loss) and tolerating this without side effects. Blood pressure Her home blood pressure cuff reading high 200s, however, her BP was 137/92 at recent outpatient visit. She is on HCTZ and lisinopril without chest pain, shortness of breath, dizziness, or lightheadedness. Nicotine The nicotine inhaler makes her cough some, but she finds is more helpful than prior nicotine replacements. She is still smoking, but less than prior. Left breast mass She noted left breast mass about a week ago, maybe 12 o'clock position 1cm from nipple 3cm in diameter. It is tender. Her last screening mammogram was over a year ago. She denies nipple drainage, changes to the skin, or swelling in arm pits or nodes. IFG Metformin 500mg daily without side effects. Assessment and Plan: Tracie was seen today for follow-up of abnormal uterine bleeding and HTN. She mentioned a new breastmass that she noted over the past week. Diagnoses and all orders for this visit: Abnormal uterine bleeding Iron deficiency - Management per Dr. Schaeffer - Repeat iron studies once bleeding under better control Hypertension, essential, benign - Continue HCTZ and lisinopril - Purchase new BP cuff and get validated - Check BP at pharmacy - Consider ambulatory BP monitoring Impaired fasting glucose - Increase to 500mg BID Breast mass, left - Bilateral diagnostic mammogram and US breast Vitamin D deficiency - Check vitamin D level (getting labs prior to endometrial ablation) Follow Up: - 3 month for follow-up of HTN, she prefers a female provider * Ragini Unger MD - 03/25/2020 2:30 PM EDT I was physically present in the clinic and discussed the case with the resident [id number] at thetime of the visit or immediately after the visit. The assessment and plan were formulated in discussion with me and I agree with them as documented. I have reviewed the discussion, observations/physical exam, assessment and plan with the resident. Major issues discussed today: Pt is a 49 yo female. - abnormal uterine bleeding - biopsy negative, from our notes did not follow up with lens edger. + recent abdominal pain and seen in ER, thought this was related to ovarian cyst. She is now on norethindrone. May have hysteroscopy with lens edger in [facility] to further work up her bleeding. For now she is tolerating iron tiw. - HTN - schecking bp at home, she says some in the high 200's. Last documented in our chart 132/92 at outpt visit. On hctz and lisinopril. Tobacco use - Using nicotine inhaler and cutting back on smoking. - left breast firmness. She points to around 12:00. No skin changes, no LAD. Will order mammogram. Is due for screening so will order both screening and diagnostic. - IFG - tolerating low dose metformin, will increase as tolerated documented in this encounter Plan of Treatment Upcoming Encounters Date Type Department Care Team (Late st Contact Info) Description 09/05/2024 9:00 AM EDT Office Visit Internal Medicine at [address] [address] Gema Oliveira, [facility] [address] documented as of this encounter Visit Diagnoses Diagnosis Abnormal uterine bleeding Unspecified disorder of menstruation and other abnormal bleeding from female genital tract Hypertension, essential, benign Essential hypertension, benign Impaired fasting glucose Breast mass, left Lump or mass in breast Vitamin D deficiency Unspecified vitamin D deficiency Breast cancer screening by mammogram documented in this encounter Care Teams Styrene Dehydration Reactor Operator Relationship Specialty Start Date End Date Marguerite Riley MD [facility] [place] [address] PCP - General General Internal Medicine 08/15/17 6/3 documented as of this encounter
--- OUTSIDE RECORDS SUMMARY | 2024-07-12 00:30 | XMS_ITS | Encounter Summary ---
Author Organization Formerly [facility] [place] [address] Care Team Providers Care Department Coordinator Name Role Phone Marguerite Riley MD Primary Care Provider [phone] Encounter Details Date Type Department Care Team (Late st Contact Info) Description 03/16/2020 Notes Only Internal Medicine at [address] [address] Marguerite Riley MD [facility] [place] [address] Social History Tobacco Use Types Packs/Day Years [...] encounter Progress Notes * Marguerite Riley - 03/16/2020 9:39 AM EDT Received [facility] ED visit note regarding Tracie's presentation for abdominal pain. CT done which showedpulmonary nodules and endometrial thickening (both known problems based on imaging done in [facility]). Per [facility] documentation, patient referred to Dr. Rashid Schaeffer for endometrial biopsy. TC to Dr. Schaeffer with [facility] to notify him that both these problems were previously known and that endometrial biopsy was done 11/2019 (path results relayed) with plan for repeatCT in one year to follow pulmonary nodules. They are able to access our records to review and will reach out to the patient. documented in this encounter Plan of Treatment Upcoming Encounters Date Type Department Care Team (Late st Contact Info) Description 09/05/2024 9:00 AM EDT Office Visit Internal Medicine at [address] [address] Gema Oliveira DO [facility] [place] [address] documented as of this encounter Visit Diagnoses Not on filedocumented in this encounter Care Teams Department Coordinator Relationship Specialty Start Date End Date Marguerite Riley MD [facility] [place] [place] [address] PCP - General General Internal Medicine 08/15/17 6/ documented as of this encounter
--- OUTSIDE RECORDS SUMMARY | 2024-07-12 00:30 | XMS_ITS | Encounter Summary ---
Author Organization [facility] [place] [address] Care Team Providers Care Administrative Assistant Coordinator Name Role Phone Tasneem Galdamez MD Primary Care Provider [phone] Reason for Visit * Reason Comments Medication Refill Encounter Details Date Type Department Care Team (Late st Contact Info) Description 12/23/2020 Refill Internal Medicine at [address] [address] Tasneem Galdamez MD [facility] [address] Restless leg Social History Tobacco Use Types [...] AM EDT Office Visit Internal Medicine at [address] [address] Gema Oliveira DO [facility] [address] [address] documented as of this encounter Visit Diagnoses Diagnosis Restless leg Restless legs syndrome (RLS) documented in this encounter Care Teams Administrative Assistant Coordinator Relationship Specialty Start Date End Date Tasneem Galdamez MD [facility] [address] PCP - General General Internal Medicine 05/20/2004/21 documented as of this encounter
--- OUTSIDE RECORDS SUMMARY | 2024-07-12 00:30 | XMS_ITS | Encounter Summary ---
Author Organization [facility] [place] [address] Care Team Providers Care Termite Helper Name Role Phone Tasneem Galdamez MD Primary Care Provider [phone] Encounter Details Date Type Department Care Team (Late st Contact Info) Description 06/03/2020 Telephone [place] [id number] Trisha Nichols Social History Tobacco Use Types Packs/Day Years [...] encounter Miscellaneous Notes * Telephone Encounter - Trisha Nichols - 06/03/2020 11:24 AM EDT Patient reports still smoking. Is willing to try to get back on track with nicotine lozenges. documented in this encounter Plan of Treatment Upcoming Encounters Date Type Department Care Team (Late st Contact Info) Description 09/05/2024 9:00 AM EDT Office Visit Internal Medicine at [address] [address] Gema Oliveira, [facility] [place] [address] documented as of this encounter Visit Diagnoses Not on filedocumented in this encounter Care Teams Termite Helper Relationship Specialty Start Date End Date Tasneem Galdamez MD [facility] [address] [address] PCP - General General Internal Medicine 05/20/2004/21 documented as of this encounter
--- OUTSIDE RECORDS SUMMARY | 2024-07-12 00:30 | XMS_ITS | Encounter Summary ---
Author Organization [facility] Address [facility] [place] [address] Care Team Providers Care Grinder Machine Knife Setter Name Role Phone Tasneem Galdamez MD Primary Care Provider [phone] Reason for Visit * Reason Comments Foot Pain L foot pain,joint pa in, started about a week ago, pt states that I can barely do stairs, dorsiflexion hurts the most. Encounter Details Date Type Department Care Team (Late st Contact Info) Description 05/14/2021 10:00 AM EDT Office [place] [address] Iman Michelle PA [facility] [place] [address] Acute left ankle pain Social History Tobacco Use Types Packs/Day [...] Sign Reading Time Taken Comments Blood Pressure 157/102 05/14/2021 9:52 AM EDT Pulse 89 05/14/2021 9:52 AM EDT Temperature 37.3 ??C (99.1 ??F) 05/14/2021 9:52 AM ED T Respiratory Rate 18 05/14/2021 9:52 AM EDT Oxygen Saturation 98% 05/14/2021 9:52 AM EDT Inhaled Oxygen Concentration - - Weight 119.7 kg (264 lb) 05/14/2021 9:52 AM EDT reported Height 175.3 cm (5' 9) 05/14/2021 9:52 AM EDT r eported Body Mass Index 38.99 05/14/2021 9:52 AM EDT documented in this encounter Patient Instructions * Patient Instructions* Iman Michelle PA - 05/14/2021 10:00 AM EDT Images from the original note were not included. Patient Education Ankle: Exercises Introduction Here are some examples of exercises for you to try. The exercises may be suggested for a condition or for rehabilitation. Start each exercise slowly. Ease off the exercises if you start to have pain. You will be told when to start these exercises and which ones will work best for you. How to do the exercises 'Alphabet' exercise 1. Trace the alphabet with your toe. This helps your ankle move in all directions. [id number]-cr-[id number] knee swing exercise 1. Sit in a chair with your foot flat on the floor. 2. Slowly move your knee from side to side while keeping your foot pressed flat. 3. Continue this exercise for 2 to 3 minutes. Towel curl 1. While sitting, place your foot on a towel on the floor and scrunch the towel toward you with your toes. 2. Then use your toes to push the towel away from you. 3. Make this exercise more challenging by placing a weighted object, such as a soup can, on the other end of the towel. Towel stretch 1. Sit with your legs extended and knees straight. 2. Place a towel around your foot just under the toes. 3. Hold each end of the towel in each hand, with your hands above your knees. 4. Pull back with the towel so that your foot stretches toward you. 5. Hold the position for at least 15 to 30 seconds. 6. Repeat 2 to 4 times a session, up to 5 sessions a day. Ankle eversion exercise 1. Start by sitting with your foot flat on the floor and pushing it outward against an immovable object such as the wall or heavy furniture. Hold for about 6 seconds, then relax. Repeat 8 to 12 times. 2. After you feel comfortable with this, try using rubber tubing looped around the outside of your feet for resistance. Push your foot out to the side against the tubing, and then count to 10 as you slowly bring your foot back to the middle. Repeat 8 to 12 times. Isometric opposition exercises 1. While sitting, put your feet together flat on the floor. 2. Press your injured foot inward against your other foot. Hold for about 6 seconds, and relax. Repeat 8 to [address] the heel of your other foot on top of the injured one. Push down with the top heel while trying to push up with your injured foot. Hold for about 6 seconds, and relax. Repeat 8 to 12 times. Follow-up care is a sandhu part of your treatment and safety. Be sure to make and go to all appointments, and call your doctor if you are having problems. It's also a good idea to know your test resultsand keep a list of the medicines you take. Where can you learn more? Visit our [employer] information library at [email or web address] You can also view health information on [employer], your personal patient account. Log in or sign uptoday. Enter R730 in the search box to learn more about Ankle: Exercises. Current as of: October 05, 2020?Content Version: 12.9 ?? [employer]. Care instructions adapted under license by [facility]. If you have questions about a medical condition or this instruction, always ask your healthcare professional. [employer] disclaims any warranty or liability for your use of this information. documented in this encounter Progress Notes * Iman Michelle PA - 05/14/2021 10:00 AM EDT General Internal Medicine Walk in Clinic Visit Evaluation today was performed: [] Telehealth - Video [] Telehealth - Telephone [] By video conference [x] In-person PPE used during in-person evaluation: [] Gloves [] Gown [] Goggles [x] Face-shield [x] Level 2 mask [] N-95 [] [id number] [] PAPR Subjective: Tracie Layton is a 50 y.o. female a patient of Tasneem Galdamez MD with a history of depression, HTN, GERD, ADD, vitamin d deficiency, OA, obstructive lung disease presents to the walk in clinic today for: foot pain. ?? One week of left ankle pain. Pain is along the lateral side. It is worse with dorsiflexion. Reports some swelling. No bruising, numbness, tingling, trauma. Takes care of her grandchildren and is often running after them. ROS: see above Objective: Visit Vitals LMP 10/06/2019 (Exact Date) BP Readings from Last 3 Encounters: 10/29/20 128/85 09/17/20 (!) 139/97 12/02/19 (!) 139/92 Wt Readings from Last 3 Encounters: 10/29/20 119.8 kg (264 lb 3.2 oz) 09/17/20 119.1 kg (262 lb 9.6 oz) 12/02/19 119.7 kg (263 lb 12.8 oz) Physical Exam Constitutional: General: She is not in acute distress. Appearance: Normal appearance. She is not ill-appearing. Comments: Wearing flip flops Cardiovascular: Rate and Rhythm: Normal rate and regular rhythm. Heart sounds: Normal heart sounds. Pulmonary: Effort: Pulmonary effort is normal. Breath sounds: Normal breath sounds. Musculoskeletal: Right ankle: Normal. Left ankle: Swelling present. No deformity, ecchymosis or lacerations. Tenderness present over the lateral malleolus. Normal pulse. Skin: General: Skin is warm and dry. Neurological: General: No focal deficit present. Mental Status: She is alert and oriented to person, place, and time. Psychiatric: Mood and Affect: Mood normal. Behavior: Behavior normal. Assessment and Plan: I discussed the following diagnosis/diagnoses and differential diagnoses in detail with Ms. Layton,including treatment options and she agrees with the plan outlined below. All chronic problems listed in H&P are stable unless otherwise noted below. 1. Acute left ankle pain -Is able to bear weight, no bony tenderness or trauma. Will hold on XR at this time. Discussed withpatient that this is likely a muscle strain/over use injury. RICE. Exercises printed for patient. If no improvement may consider PT. - Ms. Layton was given the necessary information on her condition and instructed to return to clinic if symptoms continue or worsen and to follow-up with Tasneem Galdamez MD for chronic management as needed. - An After Visit Summary was either printed and given to the patient or provided via the patient portal. -Total time on date of encounter: 30 minutes including as necessary: [x] Preparing to see pt, review of tests [] Obtaining and/or reviewing separately obtained history (eg, outside records, caregiver) [x] Counseling and educating the patient/family/caregiver [] Referring and communicating with other health client care specialist [x] Documenting clinical information in the electronic or other health record [] Independently interpreting results [] Care coordination * Rosie Johnson CCMA - 05/14/2021 10:00 AM EDT Evaluation today was performed: [] By video conference [x] In-person PPE used during in-person evaluation: [] Gloves [] Gown [x] Goggles [] Face-shield [x] Level 2 mask [] N-95 [] PAPR documented in this encounter Plan of Treatment Upcoming Encounters Date Type Department Care Team (Late st Contact Info) Description 09/05/2024 9:00 AM EDT Office Visit Internal Medicine at [address] [id number] Gema Oliveira DO [facility] [place] [address] documented as of this encounter Visit Diagnoses Diagnosis Acute left ankle pain documented in this encounter Care Teams Grinder Machine Knife Setter Relationship Specialty Start Date End Date Tasneem Galdamez MD [facility] [address] [address] PCP - General General Internal Medicine 05/20/2004/21 documented as of this encounter
--- OUTSIDE RECORDS SUMMARY | 2024-07-12 00:30 | XMS_ITS | Encounter Summary ---
[place] [address] Care Team Providers Care Interior Decorator Paperhanging Name Role Phone Tasneem Galdamez MD Primary Care Provider [phone] Reason for Visit * Reason Onset Date Comments Prior Authorization 08/20/2021 fluticasone propion-salmeteroL (ADVAIR) Encounter Details Date Type Department Care Team (Late st Contact Info) Description 08/20/2021 Telephone Internal Medicine at [address] [address] Kami Schaffer CMA Prior Authorization (fluticasone propion-salmeteroL (ADVAIR)) Social History Tobacco Use Types Packs/Day Years [...] as of this encounter Miscellaneous Notes * Addendum Note - Tasneem Galdamez MD - 08/21/2021 10:47 AM EDTAddended by: TASNEEM GALDAMEZ on: 08/21/2021 10:47 AM Modules accepted: Orders * Addendum Note - Gabriel Mcdonald RN - 08/20/2021 2:55 PM EDTAddended by: GABRIEL MCDONALD on: 08/20/2021 02:55 PM Modules accepted: Orders * Telephone Encounter - Karlene Thornton CCMA - 08/20/2021 12:18 PM EDT Images from the original note were not included. * Telephone Encounter - Kami Schaffer CMA - 08/20/2021 11:31 AM EDT Medication Prior Authorization Request received via: [facility] Patient: Tracie Layton Patient : 1970 Insurance Company: [place] Medicaid Sent via: [facility] Huang: [id number] Physician: Ragini Unger MD Medication Requested: fluticasone propion-salmeteroL (ADVAIR) 100-50 mcg/dose Disk with Device Frequency/Sig: inhale 1 puff into the lungs every 12 hours Disp: 1 Refills: 12 Currently taking: yes If yes, how lon Diagnosis for this medication:Exertional chest pain R07.9 Nicotine dependence, cigarettes, uncomplicated F17.210 Prior medications trialed in this patient: Medication: proair Approx Dates: 2013-current Outcome/Adverse Reactions: inadequate response alone Additional Notes: documented in this encounter Plan of Treatment Upcoming Encounters Date Type Department Care Team (Late st Contact Info) Description 09/05/2024 9:00 AM EDT Office Visit Internal Medicine at [address] [address] Gema Oliveira, [facility] [place] [address] documented as of this encounter Visit Diagnoses Diagnosis Mild intermittent asthma without complication Unspecified asthma documented in this encounter Care Teams Interior Decorator Paperhanging Relationship Specialty Start Date End Date Tasneem Galdamez MD [facility] [place] [address] PCP - General General Internal Medicine 05/20/2004/21 documented as of this encounter
--- OUTSIDE RECORDS SUMMARY | 2024-07-12 00:30 | XMS_ITS | Encounter Summary ---
Author [place] [address] Care Team Providers Care Pawn Broker Name Role Phone Tasneem Galdamez MD Primary Care Provider [phone] Reason for Visit * Reason Onset Date Comments Prior Authorization 08/23/2021 varenicline (Chantix) 1 mg Tablet Encounter Details Date Type Department Care Team (Late [facility]) Description 08/23/2021 Telephone Internal Medicine at [address] [id number] Damon Coello MA Prior Authorization (varenicline (Chantix) 1 mg Tablet [...] encounter Miscellaneous Notes * Telephone Encounter - Damon Coello MA - 08/27/2021 3:34 PM EDT PA not needed- pharmacy please use [facility] [phone].. [facility] in [facility] does not have this NDC. Unable to reach patient to see if she is willing to try another pharmacy. * Telephone Encounter - Damon Coello MA - 08/23/2021 12:59 PM EDT Medication Prior Authorization Request received via: Provider Patient: Tracie Layton Patient : 1970 Insurance Company: [place] Medicaid Sent via: [facility] Huang: [id number] Physician: Ragini Unger MD Medication Requested: varenicline (Chantix) 1 mg Tablet Frequency/Sig: Take 1 tablet by mouth 2 times daily with meals Disp: 60 Refills: 1 Currently taking: Yes If yes, how lon08/2017 Diagnosis for this medication: Smoking ICD-10 code: F17.200 Prior medications trialed in this patient: Additional Notes: BRAND NO LONGER AVAILABLE documented in this encounter Plan of Treatment Upcoming Encounters Date Type Department Care Team (Late st Contact Info) Description 09/05/2024 9:00 AM EDT Office Visit Internal Medicine at [address] [address] Gema Oliveira DO [facility] [address] [address] documented as of this encounter Visit Diagnoses Diagnosis Smoking Tobacco use disorder documented in this encounter Care Teams Pawn Broker Relationship Specialty Start Date End Date Tasneem Galdamez MD [facility] [place] [address] PCP - General General Internal Medicine 05/20/2004/21 documented as of this encounter
--- OUTSIDE RECORDS SUMMARY | 2024-07-12 00:30 | XMS_ITS | Encounter Summary ---
Author Organization [facility] Address [facility] [place] [address] Care Team Providers Care Carbon Furnace Operator Name Role Phone Marguerite Riley MD Primary Care Provider [phone] Reason for Visit * Reason Comments Follow-up * Consultation (Urgent) - Closed Specialty Diagnoses / Procedures Referred By María Elena mcdaniel Referred To Contact Obstetrics and Gynecology Diagnoses Abnormal uterine bleeding Marguerite Riley MD [facility] [address] [facility] [employer] [address] [place] [address] Referral ID Status Reason Start Date Expiration Date V isits Requested Visits Authorized [id number] Closed Specialty Service Requested 11/19/2019 11/18/2020 1 1 Encounter Details Date Type Department Care Team (Late st Contact Info) Description 12/02/2019 11:20 AM EST Office Visit Obstetrics [place] [address] Yovana Montemayor, [facility] [place] [address] Hypertension, essential, benign; Thickened endometrium; Perimenopausal Social History Tobacco Use Types Packs/Day Years [...] Sign Reading Time Taken Comments Blood Pressure 139/92 12/02/2019 11:09 AM EST Pulse 120 12/02/2019 11:09 AM EST Temperature 36.4 ??C (97.5 ??F) 12/02/2019 1 1:09 AM EST Respiratory Rate 17 12/02/2019 11:0 9 AM EST Oxygen Saturation 98% 12/02/2019 11: 09 AM EST Inhaled Oxygen Concentration - - Weight 119.7 kg (263 lb 12.8 oz) 2019 11:09 AM EST Height - - Body Mass Index 39.3 11/28/2019 10:13 AM EST documented in this encounter Progress Notes * Yovana Montemayor CNM - 12/02/2019 11:20 AM EST ASSISTANT [employer] SOCCER COACH Office Visit Patient Name: Tracie Hayden Date of : 1970 Primary Care Provider: Marguerite Riley MD Date of Visit: 12/02/2019 HPI: TRACIE HAYDEN is a 48 y.o. female who presents with a referral from internal medicinefor an EMB. Had an abnormal US on 10/31/19 showing endometrial thickness of 13.62, also noted with left 4x 2 ovarian hemorrhagic cyst . Patient's last menstrual period was 10/01/2019 (approximate).. regular menstrual cycle every 28-32 days or so, lasting 7 days. Menses are getting heavier. Is currently very crampy and not had a Jose Angel menses. This is the first time she has missed a period. She uses both tampons and pads and changes them q 2-3 hr for days 2-6 of her menses. Last PAP/ HPV was in 2018 Neg. Hx of abnormal pap and hx of LEEP 2001 Contraception: BTL, no current partner. Pt has hx of mixed UI. She has seen UroGyn 10/18/19, hx of Pelvic floor PT, sling placed 2015, meshexcision 2016. + tobacco use: 1/2 ppd. Is weaning down and has started to get cessation assistance. Is motivated to quit. Congratulated on her efforts. Patient Active Problem List Diagnosis Code ??? Bilateral occipital neuralgia M54.81 ??? Post-traumatic headache G44.309 ??? Esophageal reflux (GERD) K21.9 ??? Smoking F17.200 ??? PTSD (post-traumatic stress disorder) F43.10 ??? Agoraphobia F40.00 ??? ADD (attention deficit disorder) (ADHD) F98.8 ??? Vitamin D deficiency E55.9 ??? Depression F32.9 ??? Morbid obesity with BMI of 40.0-44.9, adult E66.01, Z68.41 ??? Mixed stress and urge urinary incontinence N39.46 ??? 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 Osteoarthritis of spine with radiculopathy, lumbar region M47.26 ??? Hypertension, essential, benign I10 ??? Impaired fasting glucose R73.01 ??? History of cervical cancer Z85.41 ??? Alcohol abuse F10.10 ??? H/O suicide attempt Z91.5 ??? Obstructive lung disease (generalized) J44.9 Past Medical History: Diagnosis Date ??? Agoraphobia ??? Alcohol abuse ??? H/O suicide attempt 10/29/2014 Overdose in 2000 ??? History of cervical cancer 2002 s/p LEEP??? in [place] ??? Post-traumatic headache 05/31/2014 fell out of a hammock Past Surgical History: Procedure Laterality Date ??? CERVIX SURGERY LEEP ??? SECTION ??? PRO COLONOSCOPY, REMV LESN, SNARE N/A 06/11/2015 COLONOSCOPY, POLYPECTOMY, REMOVAL LESION BY SNARE performed by Larry Ryan MD at [facility] ENDOSCOPY ??? PRO REMV/REVS SLING FOR STRES INCONTINENCE N/A 06/06/2017 SLING, REVISEOR REMOVE, REPLACE, VAGINALAPPROACH, SYNTHETIC\FASCIA (WRVU 11.15) performed by Frankie Richards MD at [facility] OSC ??? PRO SLING OPER STRES INCONTINENCE N/A 06/08/2016 URETHRAL SUSPENSION, SLING\FASCIA OR SYNTHETIC performed by Frankie Richards MD at [facility] MAIN OR ??? PRO UPPER GI ENDOSCOPY, BIOPSY 01/08/2014 EGD WITH BIOPSY performed by Ilya Whitney MD at [facility] ENDOSCOPY ??? PRO UPPER GI ENDOSCOPY, BIOPSY N/A 06/21/2017 UPPER GASTROINTESTINAL ENDOSCOPY,WITH BIOPSY SINGLE OR MULTIPLE (WRVU 2.49) performed by Rickie Pineda MD at [facility] ENDOSCOPY ??? PRO UPPER GI ENDOSCOPY, DIAGNOSTIC N/A 06/21/2017 EGD, UPPER GI ENDOSCOPY performed by Rickie Pineda MD at [facility] ENDOSCOPY ??? TUBAL LIGATION 1992 Family History Problem Relation Age of Onset ??? Brain Tumor Mother metastatic from lung ??? Lung Cancer Mother ??? Breast Cancer Maternal Aunt 60 ??? No Known Problems Father ??? Coronary Artery Disease Early Onset Brother 43 smoker ??? Ovarian Cancer Neg Hx ??? Colorectal Cancer Neg Hx ??? Pancreatic Cancer Neg Hx Social History Socioeconomic History ??? Marital status: Single Spouse name: None ??? Number of children: None ??? Years of education: None ??? Highest education level: None Occupational History ??? None Social Needs ??? Financial resource strain: None ??? Food insecurity: Worry: None Inability: None ??? Transportation needs: Medical: None Non-medical: None Tobacco Use ??? Smoking status: Current Every Day Smoker Packs/day: 0.50 Years: 30.00 Pack years: 15.00 Types: Cigarettes ??? Smokeless tobacco: Never Used Substance and Sexual Activity ??? Alcohol use: Yes Frequency: Monthly or less Drinks per session: 1 or 2 Binge frequency: Less than monthly Comment: Very rare ??? Drug use: No ??? Sexual activity: Yes Partners: Male Comment: tubal ligation as control Lifestyle ??? Physical activity: Days per week: None Minutes per session: None ??? Stress: None Relationships ??? Social connections: Talks on phone: None Gets together: None Attends nondenominational service: None Active member of club or organization: None Attends meetings of clubs or organizations: None Relationship status: None ??? Intimate partner violence: Fear of current or ex partner: None Emotionally abused: None Physically abused: None Forced sexual activity: None Other Topics Concern ??? 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 No abnormal vaginal discharge, no vulvovaginal itching, irritation, discomfort. No dysuria or other urinary complaints. No change in bowel habits, no bowel complaints. No breast complaints. Review of systems otherwise negative. Current Outpatient Medications Medication Sig Dispense Refill ??? ferrous sulfate (IRON, FERROUS SULFATE,) 325 mg (65 mg iron) Tablet Take 1 tablet by mouth daily. Take with acidic drink (OJ). Decrease to three times per week if causing constipation. 30 tablet 12 ??? ipratropium-albuterol (DUONEB) 0.5 mg-3 mg(2.5 mg base)/3 mL Solution for Nebulization INHALE THE CONTENTS OF 1 VIAL BY NEBULIZATION EVERY 4 HOURS NEEDED 180 mL 5 ??? lisinopril (PRINIVIL;ZESTRIL) 40 mg Tablet Take 1 tablet by mouth daily. 90 tablet 3 ??? diclofenac (VOLTAREN) 1 % Gel Apply 2 g topically 4 times daily as needed (pain, apply to low back.). 100 g 3 ??? buPROPion SR (WELLBUTRIN SR) 150 mg tablet sustained-release 12 hr Take 1 tablet by mouth 2 times daily. Once daily for 3 days then twice/day. Indications: Stop Smoking 90 tablet 3 ??? albuterol (PROAIR HFA) 90 mcg/actuation HFA Aerosol Inhaler Inhale 2 puffs into the lungs every4 hours as needed for Wheezing. Use with spacer (Patient not taking: Reported on 11/28/2019) 1 Inhaler 3 ??? nicotine (NICOTROL) 10 mg Cartridge Inhale 1 puff into the lungs as needed for Smoking cessation. 42 each 1 ??? omeprazole (PRILOSEC) 40 mg Capsule, Delayed Release(E.C.) Take 1 capsule by mouth daily. 90 capsule 3 ??? Incontinence Pad, Liner, Disp Pad 1 each by Misc.(Non-Drug; Combo Route) route every 4 hours asneeded (for incontinence). 200 each 11 ??? hydroCHLOROthiazide (HYDRODIURIL) 25 mg Tablet Start with one-HALF tablet by mouth daily, then increase to ONE tablet by mouth daily after 7 days. 90 tablet 3 ??? DULoxetine (CYMBALTA) 30 mg Capsule, Delayed Release(E.C.) Take 2 capsules by mouth daily. 180 capsule 3 ??? metFORMIN (GLUCOPHAGE-XR) 500 mg Tablet Sustained Release 24 hr Take 1 tablet by mouth daily. After two weeks, take 2 tablets by mouth daily (1,000mg total dose). 180 tablet 3 No current facility-administered medications for this visit. Allergies Allergen Reactions ??? Bactrim [Sulfamethoxazole-Trimethoprim] Anaphylaxis ??? Aleve [Naproxen Sodium] Rash Per neuro team, patient has tolerated ketorolac in the past ??? Keflex [Cephalexin] Other (See Comments) Racing heart ??? Meloxicam Nausea Only ??? Amlodipine Nausea And Vomiting Objective: Vitals: 12/02/19 1109 BP: (!) 139/92 BP Location (NBP): Right arm Patient Position: Sitting Pulse: (!) 120 Resp: 17 Temp: 36.4 ??C (97.5 ??F) TempSrc: Temporal SpO2: 98% Weight: 119.7 kg (263 lb 12.8 oz) General - NAD, alert and pleasant Pelvic exam External Genitalia - Normal appearing labia Urethral meatus - Without prolapse Vagina - Well estrogenized. Normal physiologic discharge present Cervix - without lesion Uterus - anteverted. Small. Non-tender [place]enexa - No masses or tenderness Rectovaginal exam - deferred PROCEDURE NOTE: Endometrial Biopsy Discussed the risks of the procedure, including bleeding, infection, and uterine perforation. She verbally consented to the procedure. A speculum was placed and the cervix was easily visualized. The cervix was washed with betadine x3. The posterior lip of the cervix was grasped with a single toothed tenaculum. The os was gently dilated with an os finder. A sampling pipelle was gently threaded through the cervix to the uterine fundus (sounding to 8 cm). Sampling was completed in a 360 degree fashion with return of minimal tissue. The tenaculum was removed, and hemostasis was appreciated. The patient tolerated the procedure well and was in satisfactory condition at its conclusion. Labs/Imagin11/28/19 Ref Range & Units Status Iron 40 30 - 150 mcg/dL Final TIBC 339 250 - 450 mcg/dL Final Iron Saturation 12Low 20 - 50 % Final Assessment/Plan: Tracie Hayden is a 48 y.o. female with first missed menses and thickened endometrium on US. EMB obtained. Reviewed normal menopausal changes and common accompanying changes to menses with occasional missedmenses due to anovulation. Offered pt to consider Mirena IUD to help with management of her heaviermenses. This is a method that is not contraindicated with CHTN. Menopausal handout given. Offered pt scheduled follow up. Pt elects to monitor for next menses and to call us as needed or ifdecides to get Mirena IUD insertion. Has not yet started any iron supplements. Recommended to take. Pap due 2020. Mammogram order already in place. Will follow up through [facility]. Reviewed chart and plan of care with Angela Higgins MD. YOVANA LIRA CNM documented in this encounter Plan of Treatment Upcoming Encounters Date Type Department Care Team (Late st Contact Info) Description 09/05/2024 9:00 AM EDT Office Visit Internal Medicine at [address] [address] [facility] [place] [address] documented as of this encounter Procedures Procedure Name Priority Date/Time Associated Diagnosis Comments SPECIMEN TO PATHOLOGY Routine 12/02/2019 11:49 AM EST Thickened endometrium SURGICAL PATHOLOGY REPORT Routine 12/02/2019 11:20 AM EST documented in this encounter Results * Specimen to Pathology (12/02/2019 11:49 AM EST) AP Specimen 12/02/2019 11:4 9 AM EST 12/02/2019 11:49 AM EST [facility] LABORATORY - 12/02/2019 11:49 AM EST Specimen requisition ordered. ??Separate Pathology report to follow Yovana Lira CNM PATHOLOGY/CYT OLOGY ORDERABLES Performing Organization Address City/[facility]/ZIP Co de Phone Number [facility] [place] [address] * Surgical Pathology Report (12/02/2019 11:20 AM EST) Final Diagnosis [id number] ? Location: 5L The signing pathologist has (i) examined the relevant preparation(s) for the specimen(s) and (ii) rendered or confirmed the diagnosis(es). . ?Surgical Pathology DIAGNOSIS A - Endometrium (biopsy): ??- Fragments of proliferative endometrium in the setting of metaplastic ?changes. ??- Endometrial stromal breakdown. Electronically signed by: ??Fred KWAN, Zina Guajardo Verified: ??2019 ?Pathologist Performed at: ??-[facility] Dept. of Pathology, [place], [place] CLINICAL INFORMATION Specimen Submitted: A - Endometrial Clinical History and Diagnosis: Heavy menses, irregular menses SPECIMEN PROCESSING A - Labeled/Fixative: Patient demographics, formalin. Quantity/Size: Fragments, aggregating 1.4 x 0.7 x 0.4 cm. Tissue Description: Presence of ratliff-pink soft tissue, mucus and blood clot. Sections/Processi ng: Entirely submitted in 1 cassette labeled A1. ??PPS 2019 7:27 AM EST [facility] ENDOMETRIAL STRUCTURE / Unknown 12/02/2019 11:20 AM EST 12/02/2019 11:20 AM EST Yovana WELSHM PATHOLOGY/CYT OLOGY ORDERABLES Performing Organization Address City/[facility]/ZIP Co de Phone Number [facility] [place] [address] documented in this encounter Visit Diagnoses Diagnosis Hypertension, essential, benign Essential hypertension, benign Thickened endometrium Nonspecific (abnormal) findings on radiological and other examination of genitourinary organs Perimenopausal Symptomatic menopausal or female climacteric states documented in this encounter Care Teams Carbon Furnace Operator Relationship Specialty Start Date End Date Marguerite Riley MD [facility] [address] PCP - General General Internal Medicine 08/15/17/ documented as of this encounter
--- OUTSIDE RECORDS SUMMARY | 2024-07-12 00:30 | XMS_ITS | Encounter Summary ---
Author Organization [facility] [place] [address] Care Team Providers Care Chef Broiler Or Fry Name Role Phone Tasneem Galdamez MD Primary Care Provider [phone] Reason for Referral * Diagnostic Test (Routine) - Closed Specialty Diagnoses / Procedures Referred By Contac t Referred To Contact Cardiology Diagnoses Chest pain, unspecified type Procedures Echo pharm stress test (DSE) Tasneem Galdamez MD [facility] [place] [place] [address] [facility] [place] [address] Referral ID Status Reason Start Date Expiration Date V isits Requested Visits Authorized [id number] Closed Specialty Service Requested 08/18/2021 08/18/2022 1 1 Reason for Visit * Diagnostic Test (Routine) - Closed Specialty Diagnoses / Procedures Referred By Contac t Referred To Contact Cardiology Diagnoses Chest pain, unspecified type Procedures Echo pharm stress test (DSE) Tasneem Galdamez MD [facility] [place] [address] [facility] [place] [address] Referral ID Status Reason Start Date Expiration Date V isits Requested Visits Authorized [id number] Closed Specialty Service Requested 08/18/2021 08/18/2022 1 1 Encounter Details Date Type Department Care Team (Latest Contact Info) Description 09/02/2021 1:59 PM EDT - 09/02/2021 11:59 PM EDT Hospital Encounter Non[place] [address] Ragini Unger MD [facility] [place] [address] Chest pain, unspecified type Discharge Disposition: Home Social History Tobacco Use [...] Sign Reading Time Taken Comments Blood Pressure 132/82 09/02/2021 2:42 PM EDT Pulse 80 09/02/2021 2:42 PM EDT Temperature - - Respiratory Rate 20 09/02/2021 2:42 PM EDT Oxygen Saturation 96% 09/02/2021 2:42 PM EDT Inhaled Oxygen Concentration - - Weight 128.4 kg (283 lb) 09/02/2021 2:42 PM EDT Height 175.3 cm (5' 9) 09/02/2021 2:42 PM EDT Body Mass Index 41.79 09/02/2021 2:42 PM EDT documented in this encounter Medications at Time of Discharge Medication Sig Dispensed Refills Start Date End Date Incontinence Pad, Liner, Disp Pad 1 each by Misc.(Non-Drug; Combo Route) route every 4 hours as needed (for incontinence). 200 each 11 10/03/2019 benzonatate (Tessalon) 100 mg Capsule Take by mouth. 07/11/2021 10/17/2022 varenicline (Chantix) 1 mg TabletIndications:Smo brenda Take 1 tablet by mouth 2 times daily (with meals). 60 tablet 1 08/27/2021 10/07/2021 Advair Diskus 100-50 mcg/dose Disk with DeviceIndications:Mil d intermittent asthma without complication Inhale 1 puff into the lungs every 12 hours. Brand name 1 each 12 08/21/2021 05/30/2022 hydroCHLOROthiazide (Hydrodiuril) 25 mg TabletIndications:Ess ential hypertension Take 1 tablet by mouth daily. 90 tablet 3 08/20/2021 05/30/2022 lisinopriL (Zestril) 40 mg TabletIndications:Ess ential hypertension Take 1 tablet by mouth daily. 90 tablet 3 08/20/2021 05/30/2022 metFORMIN XR (Glucophage XR) 500 mg Tablet Sustained Release 24 hrIndications:Impaire d fasting glucose Take 1 tablet by mouth 2 times daily. 180 tablet 3 08/20/2021 03/10/2022 omeprazole (PriLOSEC) 40 mg Capsule, Delayed Release(E.C.)Indicati ons:Gastroesophageal reflux disease without esophagitis Take 1 capsule by mouth daily. 90 capsule 3 08/20/2021 05/30/2022 diclofenac (Voltaren) 1 % Gel Apply topically 4 times daily as needed. 100 g 3 08/20/2021 10/12/2021 metoprolol succinate XL (Toprol-XL) 25 mg Tablet Sustained Release 24 hrIndications:Exertio nal chest pain Take 1 tablet by mouth daily. 30 tablet 12 08/20/2021 05/30/2022 vortioxetine (Trintellix) 20 mg TabletIndications:Cur rent moderate episode of major depressive disorder, unspecified whether recurrent,PTSD (post-traumatic stress disorder) Take 20 mg by mouth daily. 30 tablet 3 08/20/2021 10/07/2021 pramipexole (MIRAPEX) 0.125 mg TabletIndications:Res tless leg Take 2 tablets by mouth nightly. 60 tablet 11 12/23/2020 09/27/2021 estradioL (ESTRACE) 0.5 mg Tablet Take 0.5 mg by mouth daily. 10/28/2021 ProAir HFA 90 mcg/actuation HFA Aerosol InhalerIndications:Mi ld intermittent asthma without complication INHALE 2 PUFFS BY MOUTH INTO THE LUNGS EVERY 4 HOURS NEEDED FOR WHEEZING, USE WITH SPACER 8.5 g 3 12/27/2019 10/12/2021 ipratropium-albuterol (DUONEB) 0.5 mg-3 mg(2.5 mg base)/3 mL Solution for Nebulization INHALE THE CONTENTS OF 1 VIAL BY NEBULIZATION EVERY 4 HOURS NEEDED 180 mL 5 11/27/2019 12/16/2023 documented as of this encounter Plan of Treatment Upcoming Encounters Date Type Department Care Team (Late st Contact Info) Description 09/05/2024 9:00 AM EDT Office Visit Internal Medicine at [address] [address] Gema Oliveira, [facility] [place] [address] documented as of this encounter Procedures Procedure Name Priority Date/Time Associated Diagnosis Comments STRESS ECHO W CONTRAST W LMTD SPEC DOPP COLOR DOPP Routine 09/02/2021 4:15 PM EDT Chest pain, unspecified type documented in this encounter Results * STRESS ECHO W CONTRAST W LMTD SPEC DOPP COLOR DOPP (09/02/2021 4:15 PM EDT) Anatomical Region Laterality Modality Other 09/02/2021 Narrative 09/02/2021 5:05 PM EDT Procedure: ?Stress Echocardiogram Patient: ?CATRACHO DAVID E ?(Age): 1970(50y) Med Rec#: ? [id number] ?Sex: ?F ? Site Loc: ? [facility] ?Ht / Wt: ??175(cm)/128.37( Pt. Loc: ?Echo Lab ?BSA: ?2.39 Study Date: ?? 09/02/2021 ?Pt. Type: Tape: ? Referring: Ragini Unger Referring: Tasneem Galdamez Reading: Mark Bennett ([id number]) Manufacturing Baker: Randi Parekh Nurse: Latricia Bueno Diagnosis: *Chest pain, unspecified (R07.9) Stage ? BP ?HR ? Rest ?132/82 ?86 ? Low dose ?112/45 ?115 ? Peak ?114/70 ?151 ? Recovery ?110/75 ?96 ? SUMMARY: 1. BASELINE: Normal global and segmental biventricular systolic function with an estimated ejection fraction of 60%. 2. STRESS: The patient received incremental doses of Dobutamine to a peak of 30 mcg/kg/min with 0.5mg of atropine, achieving a heart rate of 153bpm (89% max pred.), and peak BP of 139/99 mmHg. ??With stress she was asymptomatic, hemodynamically stable, had no arrhythmias and developed no significant ST-TW changes. 3. ECHOCARDIOGRAPHIC FINDINGS: Global left ventricular systolic function appears hyperdynamic.There are no left ventricular segmental wall motion abnormalities. 4. IMPRESSION: Normal dobutamine stress echocardiogram. ??There is no clinical or echocardiographic evidence of ischemia at a diagnostic level of stress. Findings Rest: Left Ventricle: ? The left ventricular chamber size is normal. ?Left ventricular wall thickness is normal. ?There is no evidence of LVOT obstruction. ?There is normal global left ventricular systolic function. ??Ejection fraction is estimated to be 60%. ?There are no left ventricular segmental wall motion abnormalities. ?Assessment of diastolic function is indeterminate. ?The left ventricular diastolic filling pattern is consistent with impaired LV relaxation. ?Doppler assessment is consistent with normal left sided filling pressure. Left Atrium: ? The left atrium is normal in size. Right Ventricle: ? The right ventricle is normal in size. ?Right ventricular global systolic function is normal. ?Pulmonary artery hypertension could not be assessed due to inadequate tricuspid regurgitation jet. Right Atrium: ? The right atrium appears normal. Aortic Valve: ? The aortic valve is not well visualized. ?The aortic valve leaflets are mildly thickened. ?Systolic excursion of the aortic valve is normal. ?There is no evidence of aortic valve stenosis. ?There is no evidence of aortic regurgitation. Mitral Valve: ? The mitral valve leaflets are mildly thickened. ?There is trace mitral regurgitation present. Tricuspid Valve: ? The tricuspid valve appears normal in structure and function. ?There is trace tricuspid regurgitation present. Pericardium: ? There is no pericardial effusion. Aorta: ? The aortic root is normal in size. ?The ascending aorta is normal in size. Stress: ? EKG: normal sinus rhythm. ?The patient's oxygen saturation was 98% ?The patient is taking a beta baudilio. no hold took metoprolol am dose today. Misc: ? See remainder of report for additional findings. ?Definity contrast (one 1.5 ml vial)was used to enhance endocardial definition. Excess contrast was discarded. ?Stress echo, limited spectral Doppler, color Doppler and ECG interpretation performed. Findings Low dose: Stress: ? EKG: sinus tachycardia. Findings Peak: Predicted Values:The patient achieved a maximum heart rate of 151 which is 88% of the maximum predicted heart rate (171 beats/min). ??The target heart rate was achieved. Left Ventricle: ? Global left ventricular systolic function appears hyperdynamic. ?There are no left ventricular segmental wall motion abnormalities. Stress: ? The peak dose of Dobutamine infused was 30 ug/kg/min. ?The patient was administered 0.50 mg of Atropine. ?The patient was administered 5 mg of Metoprolol during recovery. ?The patient performed hand squeezes to accelerate heart rate. ?The patient did not express feelings of chest discomfort. ?The blood pressure response was normal. ?There were no arrhythmias. ?There is 1.0 mm of up-sloping ST segment depression. (between 0.5 and 1mm of rapidly upsloping, resolved within the first 2 minutes of recovery) with beat to beat variability ?There was ST segment depression in the inferolateral leads. ?EKG: sinus tachycardia. ?The patient's oxygen saturation was 98% on RA Misc: ? Definity contrast was given to enhance Doppler signal. ?The patient is alert and oriented x3. ?The procedure was explained to the patient and the patient understands the procedure, ?A 22 gauge heplock was placed. ?An IV was placed in the patient's left arm. ?The heplock was discontinued. ?The IV site is dry and intact with no hematoma. ?Normal saline was given. 250cc's NS infused Findings Recovery: Stress: ? EKG: normal sinus rhythm. Chambers 2D ?Value ?Units (Range) ? IVSd (2D) ? 0.92 ? cm ? LVPWd (2D) ?0.96 ? cm ? IVS:LVPW ratio (2D) 0.97 ? ratio ? RWT (2D) ?0.36 ? ratio ? RWT PW (2D) ? 0.37 ? ratio ? LVIDd (2D) ?5.19 ? cm ? LVIDs (2D) ?3.56 ? cm ? LVIDd (2D) index ?2.17 ? cm/m2 ? LVIDs (2D) index ?1.49 ? cm/m2 ? LV FS (2D) ?31.41 ?% ? EF Teichholz (2D) ?? 58.9 ? % ? Ao root diameter (2D2.8 ?cm (2.1 - 3.6) ? Ascending Ao ?2.5 ?cm (2 - 3.5) ? Volumes/Mass ?Value ?Units (Range) ? LA ESV BP (MOD) inde18.86 ?ml/m2 ? LV mass (2D) ?178.31 ? g ? LV mass (2D) index ??74.56 ?g/m2 ? Diastolic/Systolic Function ?Value ?Units (Range) ? MV E-wave Vmax ?1.11 ? m/sec ? MV deceleration mayu853 ?msec ? MV A-wave Vmax ?1.17 ? m/sec ? MV E:A ratio ?0.95 ? ratio ? LV septal e' Vmax ?? 0.07 ? m/sec ? LV lateral e' Vmax ??0.06 ? m/sec ? LV E:e' septal ratio15.86 ?ratio ? LV E:e' lateral rati18.5 ? ratio ? Aortic Valve ?Value ?Units (Range) ? AV Vmax ? 1.68 ? m/sec ? AV VTI ?31.1 ? cm ? AV peak gradient ?11.29 ?mmHg ? AV mean gradient ?6 ?mmHg ? LVOT Vmax ? 1.05 ? m/sec ? LVOT VTI ?19.4 ? cm ? LVOT peak gradient ??4 ?mmHg ? LVOT mean gradient ??2 ?mmHg ? DOI (VTI) ? 0.62 ? ratio ? DOI (Vmax) ?0.63 ? ratio ? Mitral Valve ?Value ?Units (Range) ? MV PHT ?103 ?msec ? MVA (PHT) ? 2.14 ? cm2 ? This report has been electronically signed by: Mark Bennett MD ? 09/02/2021 17:04:36 Images reviewed and interpretation verified [facility] Cardiac Ultrasound Laboratory Procedure Note Mark Bennett MD - 09/02/2021 Procedure: Stress Echocardiogram Patient: CATRACHO TURNER(Age): 1970(50y) Med Rec#: [id number] Sex: F Site Loc: [facility] Ht / Wt: 175(cm)/128.37( Pt. Loc: Echo Lab BSA: 2.39 Study Date: 09/02/2021 Pt. Type: Tape: Referring: Ragini Unger Referring: Tasneem Galdamez Reading: Mark Bennett ([id number]) Manufacturing Baker: Randi Parekh Nurse: Latricia Bueno Diagnosis: *Chest pain, unspecified (R07.9) Stage BP HR Rest 132/82 86 Low dose 112/45 115 Peak 114/70 151 Recovery 110/75 96 SUMMARY: 1. BASELINE: Normal global and segmental biventricular systolic function with an estimated ejection fraction of 60%. 2. STRESS: The patient received incremental doses of Dobutamine to a peak of 30 mcg/kg/min with 0.5mg of atropine, achieving a heart rate of 153bpm (89% max pred.), and peak BP of 139/99 mmHg. With stress she was asymptomatic, hemodynamically stable, had no arrhythmias and developed no significant ST-TW changes. 3. ECHOCARDIOGRAPHIC FINDINGS: Global left ventricular systolic function appears hyperdynamic.There are no left ventricular segmental wall motion abnormalities. 4. IMPRESSION: Normal dobutamine stress echocardiogram. There is no clinical or echocardiographic evidence of ischemia at a diagnostic level of stress. Findings Rest: Left Ventricle: The left ventricular chamber size is normal. Left ventricular wall thickness is normal. There is no evidence of LVOT obstruction. There is normal global left ventricular systolic function. Ejection fraction is estimated to be 60%. There are no left ventricular segmental wall motion abnormalities. Assessment of diastolic function is indeterminate. The left ventricular diastolic filling pattern is consistent with impaired LV relaxation. Doppler assessment is consistent with normal left sided filling pressure. Left Atrium: The left atrium is normal in size. Right Ventricle: The right ventricle is normal in size. Right ventricular global systolic function is normal. Pulmonary artery hypertension could not be assessed due to inadequate tricuspid regurgitation jet. Right Atrium: The right atrium appears normal. Aortic Valve: The aortic valve is not well visualized. The aortic valve leaflets are mildly thickened. Systolic excursion of the aortic valve is normal. There is no evidence of aortic valve stenosis. There is no evidence of aortic regurgitation. Mitral Valve: The mitral valve leaflets are mildly thickened. There is trace mitral regurgitation present. Tricuspid Valve: The tricuspid valve appears normal in structure and function. There is trace tricuspid regurgitation present. Pericardium: There is no pericardial effusion. Aorta: The aortic root is normal in size. The ascending aorta is normal in size. Stress: EKG: normal sinus rhythm. The patient's oxygen saturation was 98% The patient is taking a beta baudilio. no hold took metoprolol am dose today. Misc: See remainder of report for additional findings. Definity contrast (one 1.5 ml vial)was used to enhance endocardial definition. Excess contrast was discarded. Stress echo, limited spectral Doppler, color Doppler and ECG interpretation performed. Findings Low dose: Stress: EKG: sinus tachycardia. Findings Peak: Predicted Values:The patient achieved a maximum heart rate of 151 which is 88% of the maximum predicted heart rate (171 beats/min). The target heart rate was achieved. Left Ventricle: Global left ventricular systolic function appears hyperdynamic. There are no left ventricular segmental wall motion abnormalities. Stress: The peak dose of Dobutamine infused was 30 ug/kg/min. The patient was administered 0.50 mg of Atropine. The patient was administered 5 mg of Metoprolol during recovery. The patient performed hand squeezes to accelerate heart rate. The patient did not express feelings of chest discomfort. The blood pressure response was normal. There were no arrhythmias. There is 1.0 mm of up-sloping ST segment depression. (between 0.5 and 1mm of rapidly upsloping, resolved within the first 2 minutes of recovery) with beat to beat variability There was ST segment depression in the inferolateral leads. EKG: sinus tachycardia. The patient's oxygen saturation was 98% on RA Misc: Definity contrast was given to enhance Doppler signal. The patient is alert and oriented x3. The procedure was explained to the patient and the patient understands the procedure, A 22 gauge heplock was placed. An IV was placed in the patient's left arm. The heplock was discontinued. The IV site is dry and intact with no hematoma. Normal saline was given. 250cc's NS infused Findings Recovery: Stress: EKG: normal sinus rhythm. Chambers 2D Value Units (Range) IVSd (2D) 0.92 cm LVPWd (2D) 0.96 cm IVS:LVPW ratio (2D) 0.97 ratio RWT (2D) 0.36 ratio RWT PW (2D) 0.37 ratio LVIDd (2D) 5.19 cm LVIDs (2D) 3.56 cm LVIDd (2D) index 2.17 cm/m2 LVIDs (2D) index 1.49 cm/m2 LV FS (2D) 31.41 % EF Teichholz (2D) 58.9 % Ao root diameter (2D2.8 cm (2.1 - 3.6) Ascending Ao 2.5 cm (2 - 3.5) Volumes/Mass Value Units (Range) LA ESV BP (MOD) inde18.86 ml/m2 LV mass (2D) 178.31 g LV mass (2D) index 74.56 g/m2 Diastolic/Systolic Function Value Units (Range) MV E-wave Vmax 1.11 m/sec MV deceleration incx909 msec MV A-wave Vmax 1.17 m/sec MV E:A ratio 0.95 ratio LV septal e' Vmax 0.07 m/sec LV lateral e' Vmax 0.06 m/sec LV E:e' septal ratio15.86 ratio LV E:e' lateral rati18.5 ratio Aortic Valve Value Units (Range) AV Vmax 1.68 m/sec AV VTI 31.1 cm AV peak gradient 11.29 mmHg AV mean gradient 6 mmHg LVOT Vmax 1.05 m/sec LVOT VTI 19.4 cm LVOT peak gradient 4 mmHg LVOT mean gradient 2 mmHg DOI (VTI) 0.62 ratio DOI (Vmax) 0.63 ratio Mitral Valve Value Units (Range) MV PHT 103 msec MVA (PHT) 2.14 cm2 This report has been electronically signed by: Mark Bennett MD 09/02/2021 17:04:36 Images reviewed and interpretation verified [facility] Cardiac Ultrasound Laboratory Ragini Unger MD ECHO ORDERABLES documented in this encounter Visit Diagnoses Diagnosis Chest pain, unspecified type documented in this encounter Administered Medications Inactive Administered Medications - up to 3 most recent administrations Medication Order MAR Action Action Date Dose Rate Site atropine (1 mg/mL) injection 0.5 mg 0.5 mg, Intravenous, at 15 mL/hr, Administer over 1 Minutes, ONCE, 1 dose, On Denita 09/02/21 at 1600, Echo Lab (Intra-Procedure), Routine Given 09/02/2021 3:44 PM EDT 0.5 mg 15 mL/hr DOBUTamine (Dobutrex) (2000 mcg/mL) in dextrose 5% 50 mL infusion (For Echo LAB) 30 mcg/kg/min ? 128.4 kg (115.56 mL/hr, rounded to 115.6 mL/hr), Intravenous, ONCE, 1 dose, On Denita 09/02/21 at 1600, Warning Vesicant/Irritant Medication , Echo Lab (Intra-Procedure) New Bag 09/02/2021 3:56 PM EDT 30 mcg/kg/min 115.6 mL/hr metoprolol (LOPRESSOR) injection 5 mg 5 mg, Intravenous, ONCE, 1 dose, On Denita 09/02/21 at 1600, Echo Lab (Intra-Procedure), Routine Given 09/02/2021 3:50 PM EDT 5 mg perflutren lipid microspheres (Definity) injection 1.5 mL 1.5 mL, Intravenous, ONCE PRN, 1 dose, Starting on Denita 09/02/21 at 1616, Until Denita 09/02/21 at 1510, Other, for enhancement of sub-optimal echo images, Echo Lab (Intra-Procedure), Routine Given 09/02/2021 3:10 PM EDT 1.5 mLs documented in this encounter Care Teams Chef Broiler Or Fry Relationship Specialty Start Date End Date Tasneem Galdamez MD [facility] [place] [address] PCP - General General Internal Medicine 05/20/2004/21 documented as of this encounter
--- OUTSIDE RECORDS SUMMARY | 2024-07-12 00:30 | XMS_ITS | Encounter Summary ---
Author Organization [facility] [place] [address] Care Team Providers Care Rate Clerk Passenger Name Role Phone Tasneem Galdamez MD Primary Care Provider [phone] Encounter Details Date Type Department Care Team (Late st Contact Info) Description 02/13/2021 9:15 [place] [address] COVID-19 ruled out Social History Tobacco Use Types Packs/Day Years [...] EDT Office Visit Internal Medicine at [address] [address] [address] [facility] [place] [address] documented as of this encounter Procedures Procedure Name Priority Date/Time Associated Diagnosis Comments COVID-19 PCR Routine 02/13/2021 1:47 PM EDT COVID-19 ruled out documented in this encounter Results * COVID-19 PCR (02/13/2021 1:47 PM EDT) SARS-CoV-2 RNA Not Detected Not Detected [facility] Comment: This result should be interpreted in combination with the clinical observations, patient history and epidemiological information in making a final diagnosis. For testing of asymptomatic individuals, assay performance characteristics and clinical utility have not been evaluated. Testing for SARS-CoV-2 (Severe acute respiratory syndrome coronavirus 2, formerly known as 2019 novel coronavirus or 2019-nCoV) to aid in the diagnosis of COVID-19 is performed using the Cortex m SARS-CoV-2 Assay as authorized by the FDA Emergency Use Authorization (EUA). This EUA assay is intended for In-vitro Diagnostic (IVD) use with respiratory specimens such as nasopharyngeal swabs collected from individuals during the acute phase of infection. This assay is performed based on the instructions for use provided by [employer]. and additional guidance provided by CDC and FDA. Testing is performed in the [facility] within the Department of Pathology and Laboratory Medicine at [facility], certified under the Clinical Laboratory Improvement Amendments of 1988 (CLIA), 42 U.S.C. 263a, to perform high complexity tests. Assay performance has been verified according to clinical laboratory regulatory requirements for use with specimens collected from individuals suspected of COVID-19. Test results are provided above. A result of ? Not Detected? indicates that the viral RNA target is not present above the limit of detection, but does not preclude SARS-CoV-2 infection. False negative results may occur if a specimen is improperly collected, transported or handled; if amplification inhibitors are present; or if inadequate numbers of viral particles are present in the specimen. When a diagnostic test is negative, the possibility of a false negative result should be considered in the context of a patient? s recent exposures and the presence of clinical signs and symptoms consistent with COVID-19. A result of ? Detected? indicates that RNA from SARS-CoV-2 was detected and the patient is infected. As required or requested by public health authorities, positive specimens may be sent for additional testing. Positive and negative predictive values for this test are highly dependent on disease prevalence. A result of ? Invalid? indicates that neither the viral RNA targets nor the internal control target was detected. An invalid result suggests the presence of inhibitors. Recollection and re-testing is recommended in the case of an invalid result. CDC COVID-19 criteria for testing on human specimens and clinical management guidance information are available at the CDC Coronavirus Disease 2019 (COVID-19) webpage under ? Information for Healthcare Professionals? (https://www.cdc.gov/coronavirus/2019-ncov/hcp/index.html) Additional information about this and other EUA tests can be found in provider and patient fact sheets at the following FDA website: https://www.fda.gov/medical-devices/uivxtonzpul-yuxperx-5373-otgga-98-aewbuudim- use-a wjmksyldgfpuq-saxivlk-bjhdaji/dnwqk-gflzjkcrdda-jcbp SARS-CoV-2 RNA Source [employer] Swab [facility] Nasopharyngeal swab (specimen) 02/13/2021 1:47 PM EDT 02/13/2021 1:47 PM EDT Comment:Symptoms->Fever / Re spiratory Symptoms Narrative Resulting Agency Comment Spec In Lab Jhoan Cruz HITCH TECHNICIAN MOLECULAR ORDERABLES [facility] [place] [address] documented in this encounter Visit Diagnoses Diagnosis COVID-19 ruled out documented in this encounter Care Teams Rate Clerk Passenger Relationship Specialty Start Date End Date Tasneem Galdamez MD [facility] [place] [address] PCP - General General Internal Medicine 05/20/2004/21 documented as of this encounter
--- OUTSIDE RECORDS SUMMARY | 2024-07-12 00:30 | XMS_ITS | Encounter Summary ---
[place] [address] Care Team Providers Care Cage Unloader Name Role Phone Marguerite Riley MD Primary Care Provider [phone] Reason for Visit * Reason Onset Date Comments Prior Authorization 11/28/2019 Nicotine inh aler Encounter Details Date Type Department Care Team (Late st Contact Info) Description 11/28/2019 Telephone Internal Medicine at [address] [id number] Elaina Dominique CMA Prior Authorization (Nicotine inhaler) Social History Tobacco Use Types Packs/Day Years [...] Telephone Encounter - Elaina Dominique CMA - 12/02/2019 9:49 AM EST Medication Prior Authorization for Primary Care Approved: Nicotrol Start Date: 12/02/2019 End Date: 01/31/2020 Case/Reference #: [id number] See Approval Letter in scanned documents. Additional Notes: * Telephone Encounter - Elaina Dominique CMA - 12/02/2019 8:26 AM EST Faxing over office note 10/31/19 to insurance. * Telephone Encounter - Elaina Dominique CMA - 12/02/2019 7:57 AM EST Images from the original note were not included. * Telephone Encounter - Elaina Dominiuqe CMA - 11/29/2019 7:19 AM EST Resubmitted PA with information given by PCP. * Telephone Encounter - Karlene Thornton CCMA - 11/28/2019 4:08 PM EST Images from the original note were not included. Medication Prior Authorization for Primary Care ? DENIED: Nicotrol INH ?? Case/Reference #: [id number] ?? Additional Information from Insurance: * Telephone Encounter - Elaina Dominique CMA - 11/28/2019 3:17 PM EST Medication Prior Authorization for Primary [place] [address] Request received via: Staff message Patient: Tracie Layton Patient : 1970 Insurance Company: [place] Medicaid Sent via: [employer] Huang: [id number] Physician: Marguerite Riley MD Medication Requested: nicotine (NICOTROL) 10 mg Cartridge Frequency/Sig: Inhale 1 puff into the lungs as needed for Smoking cessation. Disp: 42 each Refills: 1 Currently taking: no If yes, how long: Diagnosis for this medication: Smoking: F17.200 Prior medications trialed in this patient: Medication: nicotine patch Approx Dates: 4023-3724 Outcome/Adverse Reactions: inadequate response Medication: Commit Lozenge Approx Dates: 5474-1223 Outcome/Adverse Reactions: inadequate response Medication: wellbutrin Approx Dates: 2013- Outcome/Adverse Reactions: inadequate response Additional Notes: documented in this encounter Plan of Treatment Upcoming Encounters Date Type Department Care Team (Late st Contact Info) Description 09/05/2024 9:00 AM EDT Office Visit Internal Medicine at [address] [address] Gema Oliveira DO [facility] [place] [address] documented as of this encounter Visit Diagnoses Not on filedocumented in this encounter Care Teams Cage Unloader Relationship Specialty Start Date End Date Marguerite Riley MD [facility] [address] [address] PCP - General General Internal Medicine 08/15/17/ documented as of this encounter
--- OUTSIDE RECORDS SUMMARY | 2024-07-12 00:30 | XMS_ITS | Encounter Summary ---
Author Organization [facility] Address [facility] [place] [address] Care Team Providers Care Compensator Worker Name Role Phone Gema Oliveira DO Primary Care Provider [phone] Reason for Visit * Reason Onset Date Comments Medication Refill 07/31/2021 Encounter Details Date Type Department Care Team (Late st Contact Info) Description 07/31/2021 Refill Internal Medicine at [address] [address] Tasneem Galdamez MD [facility] [address] [address] Current moderate episode of major depressive disorder, [...] EDT Office Visit Internal Medicine at [address] [address] Gema Oliveira DO [facility] [address] documented as of this encounter Visit Diagnoses Diagnosis Current moderate episode of major depressive disorder, unspecified whether recurrent PTSD (post-traumatic stress disorder) Posttraumatic stress disorder Anxiety Anxiety state, unspecified Agoraphobia Agoraphobia without mention of panic attacks documented in this encounter Additional Health Concerns Infection Onset Date Last Indicated Resolved Time Rule Out Respiratory 12/15/2023 12/15/2023 024 8:51 PM EST Rule Out COVID-19 12/15/2023 12/15/2023 12/15/2023 4:42 PM EST RSV 12/15/2023 12/15/2023 12/25/2023 8:09 PM EST documented as of this encounter Care Teams Compensator Worker Relationship Specialty Start Date End Date Gema Oliveira DO [facility] [place] [address] PCP - General General Internal Medicine 05/17/23 documented as of this encounter
--- OUTSIDE RECORDS SUMMARY | 2024-07-12 00:30 | XMS_ITS | Encounter Summary ---
Author Organization [facility] Address [facility] [place] [address] Care Team Providers Care Asbestos Textile Supervisor Name Role Phone Tasneem Galdamez MD Primary Care Provider [phone] Reason for Visit * Reason Onset Date Comments Medication Refill 06/29/2020 Encounter Details Date Type Department Care Team (Late st Contact Info) Description 06/29/2020 Refill Internal Medicine at [address] [address] Shirin Gonzalez CCMA Impaired fasting glucose Social History Tobacco Use [...] AM EDT Office Visit Internal Medicine at [address] [address] Gema Oliveira DO [facility] [place] [address] documented as of this encounter Visit Diagnoses Diagnosis Impaired fasting glucose documented in this encounter Care Teams Asbestos Textile Supervisor Relationship Specialty Start Date End Date Tasneem Galdamez MD [facility] [place] [address] PCP - General General Internal Medicine 05/20/2004/21 documented as of this encounter
--- OUTSIDE RECORDS SUMMARY | 2024-07-12 00:30 | XMS_ITS | Encounter Summary ---
Author Organization [facility] [place] [address] Care Team Providers Care Industrial Safety And Health Specialist Name Role Phone Marguerite Riley MD Primary Care Provider [phone] Reason for Visit * Reason Comments Medication Refill Encounter Details Date Type Department Care Team (Late st Contact Info) Description 02/21/2020 Refill Internal Medicine at [address] [address] Marguerite Riley MD [facility] [place] [address] Smoking Social History Tobacco Use Types Packs/Day Years [...] EDT Office Visit Internal Medicine at [address] [address] Gema Oliveira DO [facility] [address] [place] [address] documented as of this encounter Visit Diagnoses Diagnosis Smoking Tobacco use disorder documented in this encounter Care Teams Industrial Safety And Health Specialist Relationship Specialty Start Date End Date Marguerite Riley MD [facility] [place] [address] PCP - General General Internal Medicine 08/15/1704/22 documented as of this encounter
--- OUTSIDE RECORDS SUMMARY | 2024-07-12 00:30 | XMS_ITS | Encounter Summary ---
Author Organization [facility] Address [facility] [place] [address] Care Team Providers Care Towel Weaver Name Role Phone Tasneem Galdamez MD Primary Care Provider [phone] Encounter Details Date Type Department Care Team (Late st Contact Info) Description 08/07/2020 Telephone [place] [address] Trisha Nichols Social History Tobacco Use Types [...] EDT Office Visit Internal Medicine at [address] [address] Gema Oliveira DO [facility] GENER[facility] [place] [address] documented as of this encounter Visit Diagnoses Not on filedocumented in this encounter Care Teams Towel Weaver Relationship Specialty Start Date End Date Tasneem Galdamez MD [facility] [address] [place] [address] PCP - General General Internal Medicine 05/20/2004/21 documented as of this encounter
--- OUTSIDE RECORDS SUMMARY | 2024-07-12 00:30 | XMS_ITS | Encounter Summary ---
[place] [address] Care Team Providers Care Dry Kiln Worker Name Role Phone Tasneem Galdamez MD Primary Care Provider [phone] Reason for Visit * Reason Onset Date Comments Prior Authorization 09/17/2020 [employer] Encounter Details Date Type Department Care Team (Late st Contact Info) Description 09/17/2020 Telephone Internal Medicine at [address] [address] Elaina Dominique CMA Prior Authorization ([employer]) Social History Tobacco Use Types Packs/Day Years [...] Telephone Encounter - Elaina Dominique CMA - 09/17/2020 1:56 PM EDT Medication Prior Authorization for Primary Care Approved: [employer] Start Date: 09/17/2020 End Date: 09/17/2021 Case/Reference #: [id number] See Approval Letter in scanned documents. Additional Notes: * Telephone Encounter - Elaina Dominique CMA - 09/17/2020 12:14 PM EDT Medication Prior Authorization for Primary [place] [address] Request received via: CMM Patient: Tracie Layton Patient : 1970 Insurance Company: [place] Medicaid Sent via: CM Huang: [id number] Physician: Tasneem Galdamez MD Medication Requested: vortioxetine (Trintellix) 10 mg Tablet Frequency/Sig: Take 1 tablet by mouth daily. Disp: 30 Refills: 3 Currently taking: no If yes, how long: Diagnosis for this medication: Current moderate episode of major depressive disorder, unspecified whether recurrent (F32.1) Prior medications trialed in this patient: Medication: wellbutrin SR Approx Dates: 2145-1159 Outcome/Adverse Reactions: inadequate response Medication: citalopram Approx Dates: 2014 Outcome/Adverse Reactions: inadequate response Medication: fluoxetine Approx Dates: Outcome/Adverse Reactions: inadequate response Medication: sertraline Approx Dates: 2014 Outcome/Adverse Reactions: inadequate response Medication: venlafaxine Approx Dates: 2014 Outcome/Adverse Reactions: inadequate response Medication: buspar Approx Dates: 2009 Outcome/Adverse Reactions: inadequate response Additional Notes: documented in this encounter Plan of Treatment Upcoming Encounters Date Type Department Care Team (Late st Contact Info) Description 09/05/2024 9:00 AM EDT Office Visit Internal Medicine at [place] [id number] Gema Oliveira, [facility] [place] [address] documented as of this encounter Visit Diagnoses Not on filedocumented in this encounter Care Teams Dry Kiln Worker Relationship Specialty Start Date End Date Tasneem Galdamez MD [facility] [place] [address] PCP - General General Internal Medicine 05/20/2004/21 documented as of this encounter
--- OUTSIDE RECORDS SUMMARY | 2024-07-12 00:30 | XMS_ITS | Encounter Summary ---
Author Organization Formerly [facility], Later [facility] Address [facility] [place] [address] Care Team Providers Care Supervisor Special Effects Name Role Phone Tasneem Galdamez MD Primary Care Provider [phone] Reason for Visit * Reason Comments Chest Pain Shortness of Breath Encounter Details Date Type Department Care Team (Late st Contact Info) Description 08/17/2021 12:18 PM EDT - 08/17/2021 5:02 PM EDT Emergency Emergency at [address] [phone] Charbel Collazo MD [address] [place] [address] [place] [address] Chest pain, unspecified type Discharge Disposition: Home [...] Sign Reading Time Taken Comments Blood Pressure 136/78 08/17/2021 3:00 PM EDT Pulse 80 08/17/2021 12:33 PM EDT Temperature 36.8 ??C (98.3 ??F) 08/17/2021 12:33 PM E DT Respiratory Rate 20 08/17/2021 3:00 PM EDT Oxygen Saturation 97% 08/17/2021 3:00 PM EDT Inhaled Oxygen Concentration - - Weight 127 kg (280 lb) 08/17/2021 12:33 PM EDT Height 175.3 cm (5' 9) 08/17/2021 12:33 PM EDT Body Mass Index 41.35 08/17/2021 12:33 PM EDT documented in this encounter Discharge Instructions * Discharge Instructions* Charbel Collazo MD - 08/17/2021 4:56 PM EDT The cause of your chest pain is unclear. There is no evidence of damage to your heart muscle, but there could still be compromised blood flow to a portion of your heart. Please start taking aspirin 81 mg daily. Please call your PCP tomorrow to arrange for follow-up cardiac stress testing, and to decide if you should be on cholesterol medication. If you have recurrent chest pain please return to the emergency department. * Attachments The following attachments cannot be sent through Care Everywhere. * Chest Pain ([place]) documented in this encounter Medications at Time of Discharge Medication Sig Dispensed Refills Start Date End Date Incontinence Pad, Liner, Disp Pad 1 each by [facility] [place].(Non-Drug; Combo Route) route every 4 hours as needed (for incontinence). 200 each 11 10/03/2019 benzonatate (Tessalon) 100 mg Capsule Take by mouth. 07/11/2021 10/17/2022 Trintellix 20 mg TabletIndications:Curr ent moderate episode of major depressive disorder, unspecified whether recurrent,PTSD (post-traumatic stress disorder),Anxiety,Agor aphobia TAKE 1 TABLET BY MOUTH DAILY 30 tablet 1 07/28/2021 08/20/2021 varenicline (Chantix) 1 mg TabletIndications:Yg williams dependence, cigarettes, uncomplicated Take 1 tablet by mouth 2 times daily (with meals). 60 tablet 1 02/09/2021 08/20/2021 pramipexole (MIRAPEX) 0.125 mg TabletIndications:Rest less leg Take 2 tablets by mouth nightly. 60 tablet 11 12/23/2020 09/27/2021 estradioL (ESTRACE) 0.5 mg Tablet Take 0.5 mg by mouth daily. 10/28/2021 hydroCHLOROthiazide (Hydrodiuril) 25 mg TabletIndications:Esse ntial hypertension Take 1 tablet by mouth daily. 90 tablet 3 09/17/2020 08/20/2021 lisinopriL (Prinivil;Zestril) 40 mg TabletIndications:Esse ntial hypertension Take 1 tablet by mouth daily. 90 tablet 3 09/17/2020 08/20/2021 metFORMIN XR (Glucophage XR) 500 mg Tablet Sustained Release 24 hrIndications:Impaired fasting glucose Take 1 tablet by mouth 2 times daily. 180 tablet 3 09/17/2020 08/20/2021 omeprazole (PriLOSEC) 40 mg Capsule, Delayed Release(E.C.)Indicatio ns:Gastroesophageal reflux disease without esophagitis Take 1 capsule by mouth daily. 90 capsule 3 09/17/2020 08/20/2021 norethindrone (Aygestin) 5 mg Tablet Take 5 mg by mouth 2 times daily. 03/17/2020 08/20/2021 diclofenac (VOLTAREN) 1 % Gel APPLY 2 GRAMS TOPICALLY FOUR TIMES DAILY NEEDED FOR LOWER BACK PAIN 100 g 3 03/09/2020 08/20/2021 ProAir HFA 90 mcg/actuation HFA Aerosol InhalerIndications:Mil d intermittent asthma without complication INHALE 2 PUFFS BY MOUTH INTO THE LUNGS EVERY 4 HOURS NEEDED FOR WHEEZING, USE WITH SPACER 8.5 g 3 12/27/2019 10/12/2021 ipratropium-albuterol (DUONEB) 0.5 mg-3 mg(2.5 mg base)/3 mL Solution for Nebulization INHALE THE CONTENTS OF 1 VIAL BY NEBULIZATION EVERY 4 HOURS NEEDED 180 mL 5 11/27/2019 12/16/2023 documented as of this encounter ED Notes * Charbel Collazo MD - 08/17/2021 12:37 PM EDT Patient Name:Tracie Layton Patient Age:50 y.o. Birthdate:1970 Visit Date:08/17/2021 Attending Physician:Charbel Collazo MD Chief Complaint Patient presents with ??? Chest Pain ??? Shortness of Breath History of Present Illness: This is a 50-year-old female with obesity, diabetes, hypertension and tobacco use who presents emergency department chief complaint of chest pain or shortness of breath. She says this discomfort started about 7:30 this morning while she was making breakfast for her grandson. Pain radiated down her left arm. She says the discomfort was worse with activity and better with rest. She is still having a dull pain presently. She also felt more short of breath with exertion and better with rest. She has her usual smoker's cough. She was vaccinated for Covid and does not report any recent Covid exposures. Past Medical History: Diagnosis Date ??? Agoraphobia ??? Alcohol abuse ??? H/O suicide attempt 10/29/2014 Overdose in 1999 ??? History of cervical cancer 2001 s/p LEEP??? in [place] ??? Post-traumatic headache 05/31/2014 fell out of a hammock HTN DM2 Medications:No current facility-administered medications for this encounter. ??? Trintellix 20 mg Tablet ??? varenicline (Chantix) 1 mg Tablet ??? pramipexole (MIRAPEX) 0.125 mg Tablet ??? estradioL (ESTRACE) 0.5 mg Tablet ??? hydroCHLOROthiazide (Hydrodiuril) 25 mg Tablet ??? lisinopriL (Prinivil;Zestril) 40 mg Tablet ??? metFORMIN XR (Glucophage XR) 500 mg Tablet Sustained Release 24 hr ??? omeprazole (PriLOSEC) 40 mg Capsule, Delayed Release(E.C.) ??? norethindrone (Aygestin) 5 mg Tablet ??? diclofenac (VOLTAREN) 1 % Gel ??? ProAir HFA 90 mcg/actuation HFA Aerosol Inhaler ??? ipratropium-albuterol (DUONEB) 0.5 mg-3 mg(2.5 mg base)/3 mL Solution for Nebulization ??? Incontinence Pad, Liner, Disp Pad Allergies Allergen Reactions ??? Bactrim [Sulfamethoxazole-Trimethoprim] Anaphylaxis ??? Aleve [Naproxen Sodium] Rash Per neuro team, patient has tolerated ketorolac in the past ??? Keflex [Cephalexin] Other (See Comments) Racing heart ??? Meloxicam Nausea Only ??? Amlodipine Nausea And Vomiting Social History: Current smoker, rare alcohol, no drugs. Family History Problem Relation Age of Onset ??? Brain Tumor Mother metastatic from lung ??? Lung Cancer Mother ??? Breast Cancer Maternal Aunt 60 ??? No Known Problems Father ??? Coronary Artery Disease Early Onset Brother 43 smoker ??? Ovarian Cancer Neg Hx ??? Colorectal Cancer Neg Hx ??? Pancreatic Cancer Neg Hx Review of Systems: General: No fevers, sweats, chills. HEENT: No ear pain, sore throat, runny nose, blurry vision. Neck: No pain, lymphadenopathy. Resp: Per HPI Cardiovascular: Per HPI Abdomen: No abdominal pain, nausea, vomiting, diarrhea, constipation. Genitourinary: No dysuria. Extremity: No edema, no calf tenderness. Musculoskeletal: No pain, no recent trauma. Neuro: No headache, confusion, slurred speech, difficulty swallowing. Skin: No rash, no pruritus. Patient Vitals for the past 24 hrs: BP Temp Temp src Pulse Resp SpO2 Height Weight 08/17/21 1500 136/78 -- -- -- 20 97 % -- -- 08/17/21 1400 148/78 -- -- -- 18 97 % -- -- 08/17/21 1233 (!) 169/104 36.8 ??C (98.3 ??F) Temporal 80 18 97 % 175.3 cm (5' 9) 127 kg (280 lb) Physical Exam: General: No acute distress, alert and oriented x4. HEENT: Oral mucosa moist, throat pink, sclerae nonicteric. Neck: No lymphadenopathy, no JVD. Respiratory: Lungs clear to auscultation, no rales, rhonchi, wheezes. Cardiovascular: Regular rate and rhythm without murmurs, rubs, gallops. Abdomen: Soft, nontender, positive bowel sounds, no hepatosplenomegaly. Extremities: Full range of motion x4, no cyanosis, clubbing, edema. Neuro: Cranial nerves II through XII are intact. EKG shows sinus rhythm 85 bpm, T wave flattening V4 through V6, II, aVF. Recent Results (from the past 12 hour(s)) Basic Metabolic Panel (non-fasting) Result Value Glucose Lvl 107 BUN 16 Creatinine 0.93 Sodium 139 Potassium 3.5 Chloride 100 CO2 26 Anion Gap 12 Calcium 9.6 Estimated GFR 72 Troponin Result Value Troponin-T <0.01 Blue Tube HOLD Result Value Blue Hold Sample in lab. Hemogram Result Value WBC 8.5 RBC 4.88 Hemoglobin 13.8 Hematocrit 41.3 MCV 84.6 MCH 28.3 MCHC 33.4 Platelets 186 RDWSD 38.2 RDWCV 12.2 MPV 11.0 Differential, Automated Result Value Neutrophils % 55.5 Neutr Abs (ANC) 4.73 Lymphocytes % 33.1 Lymphocytes Abs 2.8 Monocytes % 8.1 Monocyte Abs 0.7 Eosinophils % 2.7 Eosinophils Abs 0.2 Basophils % 0.2 Basophils Abs 0.0 Immature Gran % 0.40 Stephani Gran Abs 0.03 Troponin Result Value Troponin-T <0.01 XR Chest One View Final Result No acute cardiopulmonary process. I have personally reviewed the image(s) and the resident's interpretation and agree with the findings, Ofelia Vasquez MD at 08/17/2021 2:52 PM Thank you for letting us participate in the care of this patient. If you are a health care provider and have any questions regarding this report, please contact the number below. For patients who have questions please contact the health lawn care technician that requested your imaging first. Electronically signed by: Ofelia Vasquez MD, [facility] ([phone]), at 08/17/2021 2:52 PM ED Course: Patient remained chest pain-free during her ED stay. Assessment/Plan: 1) chest pain. Concern for unstable angina. Nonspecific T wave changes on EKG and negative troponins. Patient does have numerous cardiac risk factors. I do not have access to immediate stress testing. Accordingly we are going to discharge her on an aspirin 81 mg daily and have her contact her PCP tomorrow to arrange follow-up and outpatient stress testing. I encouraged patient to talk with her PCP about lipid therapy. It sounds like her glucose intolerance is really more truly diabetes with patient reported blood sugar this morning of 174. She will return to the emergency department if she has recurrent chest pain. Disposition: Home independently. Charbel Collazo MD 08/17/21 4906 documented in this encounter Plan of Treatment Upcoming Encounters Date Type Department Care Team (Late st Contact Info) Description 09/05/2024 9:00 AM EDT Office Visit Internal Medicine at [place] [phone] Oliveira, [facility] GENERAL INTERNAL [place] [address] documented as of this encounter Procedures Procedure Name Priority Date/Time Associated Diagnosis Comments HC TROPONIN T STAT 08/17/2021 4:00 PM EDT XR CHEST ONE VIEW STAT 08/17/2021 1:5 7 PM EDT HEMOGRAM STAT 08/17/2021 1:08 PM EDT DIFFERENTIAL, AUTOMATED STAT 08/17/2021 1:08 PM EDT BLUE TUBE HOLD STAT 08/17/2021 1:08 PM EDT HC CBC,PLT & AUTO DIFF STAT 08/17/2021 1:08 PM EDT HC TROPONIN T STAT 08/17/2021 1:08 PM EDT BASIC METABOLIC PANEL STAT 08/17/2021 1:08 PM EDT EKG 12-LEAD STAT 08/17/2021 1:00 PM EDT documented in this encounter Results * Troponin (08/17/2021 4:00 PM EDT) Troponin-T <0.01 0.00 - 0.00 ng/mL [facility] Comment: The 99th percentile for Troponin T is less than 0.01 ng/mL, any detectable cTnT concentration using this assay should be considered elevated. According to the third universal definition of myocardial infarction the following criteria with a clinical presentation consistent with acute myocardial ischemia meets the diagnosis for a myocardial infarction ([place]). Detection of a rise and/or fall of cTnT, with at least one value greater than the 99th percentile (> or = 0.01) and with at least one of the following Symptoms of ischemia New or presumed new significant PQ-qemavym-K wave (ST-T) changes or new left bundle branch block (LBBB) Development of pathologic Q waves in the ECG Imaging evidence of new loss of viable myocardium or new regional wall motion abnormality Identification of an intracoronary thrombus by angiography or autopsy Samples for cTnT testing should be obtained serially upon first assessment and again 3 to 6 hours later. If the clinical suspicion is high and previous samples have been negative an additional sample may be indicated. Reference: Third [place] Definition of Myocardial Infarction. Journal of the [place] [employer] 2012;60:1581-98 Blood 08/17/2021 4:00 PM EDT 08/17/2021 4:08 PM EDT Narrative Resulting Agency Comment Spec In Lab Charbel Collazo MD CHEMISTRY ORDERABLES [facility] [address] [place] [address] * XR Chest One View (08/17/2021 1:57 PM EDT) Anatomical Region Laterality Modality Chest N/A Digital Radiogra phy Impressions 08/17/2021 2:52 PM EDT No acute cardiopulmonary process. I have personally reviewed the image(s) and the resident's interpretation and agree with the findings, Ofelia Vasquez MD at 08/17/2021 2:52 PM Thank you for letting us participate in the care of this patient. ??If you are a health care provider and have any questions regarding this report, please contact the number below. ??For patients who have questions please contact the health lawn care technician that requested your imaging first. ? Electronically signed by: Ofelia Vasquez MD, [facility] ([phone]), at 08/17/2021 2:52 PM Narrative 08/17/2021 2:52 PM EDT EXAMINATION: XR CHEST ONE VIEW CLINICAL HISTORY: dyspnea TECHNIQUE: 1 view of the chest COMPARISON: CT from 12/20/2019 FINDINGS: The lungs are clear. No pneumothorax. No effusion. Unchanged cardiomediastinal silhouette when accounting for degree of rotation. Unremarkable pulmonary vasculature. No acute osseous abnormalities. Procedure Note Ofelia Vasquez MD - 08/17/2021 EXAMINATION: XR CHEST ONE VIEW CLINICAL HISTORY: dyspnea TECHNIQUE: 1 view of the chest COMPARISON: CT from 12/20/2019 FINDINGS: The lungs are clear. No pneumothorax. No effusion. Unchangedcardiomediastinal silhouette when accounting for degree of rotation. Unremarkablepulmonary vasculature. No acute osseous abnormalities. IMPRESSION No acute cardiopulmonary process. I have personally reviewed the image(s) and the resident's interpretationand agree with the findings, Ofelia Vasquez MD at 08/17/2021 2:52 PM Thank you for letting us participate in the care of this patient. If youare a health care provider and have any questions regarding this report,please contact the number below. For patients who have questions please contactthe health lawn care technician that requested your imaging first. Electronically signed by: Ofelia Vasquez MD, [facility]([phone]), at 08/17/2021 2:52 PM Charbel Collazo MD IMG DX ORDERABLES * Differential, Automated (08/17/2021 1:08 PM EDT) Neutrophil % 55.5 % [facility] Neutrophil Absolute 4.73 1.70 - 6.10 x10(3)/[facility] Lymph % 33.1 % [facility] Lymphocytes Abs 2.8 0.9 - 3.2 x10(3)/[facility] Monocyte % 8.1 % [facility] Monocyte Abs 0.7 0.3 - 0.9 x10(3)/[facility] Eos % 2.7 % [facility] Eosinophils Abs 0.2 0.0 - 0.4 x10(3)/[facility] Basophil % 0.2 % [facility] Baso Absolute 0.0 0.0 - 0.1 x10(3)/[facility] Immature Gran % 0.40 % [facility] Comment: Immature granulocytes(IG's)percentage and absolute count will include metamyelocytes, myelocytes, and promyelocytes. Blood smears from CBCs yielding IG's will be scanned manually for concordance. If this scan disagrees with the automated IG or if promyelocytes are noted, a manual differential will be performed. Immature Gran Absolute 0.03 0.00 - 0.04 x10(3)/[facility] Blood 08/17/2021 1:08 PM EDT 08/17/2021 1:15 PM EDT Narrative Resulting Agency Comment Spec In Lab Charbel Collazo MD HEMATOLOGY ORDERABLE S [facility] [address] [place] [address] * Hemogram (08/17/2021 1:08 PM EDT) White Blood Cell 8.5 4.0 - 9.5 x10(3)/[facility] Red Blood Cell 4.88 4.00 - 5.21 x10(6)/[facility] Hemoglobin 13.8 11.7 - 15.5 g/dL [facility] Hematocrit 41.3 35.7 - 45.8 % [facility] Mean Cell Volume 84.6 82.6 - 94.4 fL [facility] Mean Cell Hemoglobin 28.3 27.1 - 32.0 pg [facility] Mean Cell Hemoglobin Concentration 33.4 31.7 - 35.0 g/dL [facility] Platelet 186 145 - 357 x10(3)/[facility] RDW Standard Deviation 38.2 37.0 - 46.0 fL [facility] RDW coefficient of variation 12.2 11.5 - 14.1 % [facility] Mean Platelet Volume 11.0 7.6 - 12.9 fL [facility] Blood 08/17/2021 1:08 PM EDT 08/17/2021 1:15 PM EDT Narrative Resulting Agency Comment Spec In Lab Charbel Collazo MD HEMATOLOGY ORDERABLE S [facility] [address] [place] [address] * Blue Tube HOLD (08/17/2021 1:08 PM EDT) Blue Hold Sample in lab. [facility] Blood 08/17/2021 1:08 PM EDT 08/17/2021 1:15 PM EDT Charbel Collazo MD HEMATOLOGY ORDERABLE S Performing Organization Address City/[facility]/ZIP Co de Phone Number [facility] [address] [place] [address] * Troponin (08/17/2021 1:08 PM EDT) Troponin-T <0.01 0.00 - 0.00 ng/mL [facility] Comment: The 99th percentile for Troponin T is less than 0.01 ng/mL, any detectable cTnT concentration using this assay should be considered elevated. According to the third universal definition of myocardial infarction the following criteria with a clinical presentation consistent with acute myocardial ischemia meets the diagnosis for a myocardial infarction ([place]). Detection of a rise and/or fall of cTnT, with at least one value greater than the 99th percentile (> or = 0.01) and with at least one of the following Symptoms of ischemia New or presumed new significant EF-mlsdtgd-M wave (ST-T) changes or new left bundle branch block (LBBB) Development of pathologic Q waves in the ECG Imaging evidence of new loss of viable myocardium or new regional wall motion abnormality Identification of an intracoronary thrombus by angiography or autopsy Samples for cTnT testing should be obtained serially upon first assessment and again 3 to 6 hours later. If the clinical suspicion is high and previous samples have been negative an additional sample may be indicated. Reference: Third [place] Definition of Myocardial Infarction. Journal of the [place] [employer] 2012;60:1581-98 Blood 08/17/2021 1:08 PM EDT 08/17/2021 1:15 PM EDT Narrative Resulting Agency Comment Spec In Lab Charbel Collazo MD CHEMISTRY ORDERABLES [facility] [address] [place] [address] * Basic Metabolic Panel (non-fasting) (08/17/2021 1:08 PM EDT) Glucose 107 65 - 199 mg/dL [facility] Comment:Diabetes: >=200 mg/d L plus symptoms Blood Urea Nitrogen 16 8 - 18 mg/dL [facility] Creatinine 0.93 0.70 - 1.20 mg/dL [facility] Sodium 139 135 - 145 mmol/L [facility] Potassium 3.5 3.5 - 5.0 mmol/L [facility] Comment: Please note: ??Patients with WBC >100,000 may have falsely elevated Potassium levels. ??For accurate Potassium quantification in these patients send serum separator tube (gold top) for subsequent determinations. ??Contact the Clinical Chemistry Laboratory if there are any questions. Chloride 100 98 - 107 mmol/L [facility] Carbon Dioxide 26 22 - 31 mmol/L [facility] Anion Gap 12 5 - 15 mmol/L [facility] Calcium 9.6 8.5 - 10.5 mg/dL [facility] Est Glomerular Filtration Rate 72 >=60 mL/min/1. 73 m?? [facility] Comment: This patient? s estimated glomerular filtration rate (eGFR) is between 72 mL/min/1.73 m2 (patients with less muscle mass) and 84 mL/min/1.73 m2 (patients with more muscle mass) as determined by the CKD-EPI equation. Assessment of eGFR is not appropriate when creatinine concentrations are rapidly changing. For clinical decisions where creatinine clearance will affect therapy, a 24-hour urine creatinine clearance may be advised. Assignment of CKD stage 1 - 5 for patients with an eGFR near the transition point between stages may be based on clinical assessment of muscle mass and symptoms in addition to eGFR. Blood 08/17/2021 1:08 PM EDT 08/17/2021 1:15 PM EDT Narrative Resulting Agency Comment Spec In Lab Charbel Collazo MD CHEMISTRY ORDERABLES [facility] [address] [place] [address] * EKG 12 Lead (08/17/2021 1:00 PM EDT) Ventricular rate 85 BPM MUSE SYSTEM Atrial Rate 85 BPM MUSE SYSTEM P-R Interval 136 ms MUSE SYSTEM QRS Duration 76 ms MUSE SYSTEM Q-T Interval 392 ms MUSE SYSTEM QTC Calculated (Bezet) 466 ms MUSE SYSTEM Calculated P [place] 44 degrees MUSE SYSTEM Calculated R [place] 11 degrees MUSE SYSTEM Calculated T [place] -10 degrees MUSE SYSTEM INTERPRETATION Normal sinus rhythm Nonspecific ST and T wave abnormality Prolonged QT When compared with ECG of 24-AUG-2016 13:00, Criteria for Septal infarct are no longer Present Nonspecific T wave abnormality now evident in Anterolateral leads Confirmed by MD Jay Jay, Eb Vegas ([id number]) on 08/17/2021 2:13:57 PM MUSE SYSTEM 08/17/2021 1:00 PM EDT 08/17/2021 2:13 PM EDT Charbel Collazo MD ECG ORDERABLES MUSE SYSTEM documented in this encounter Visit Diagnoses Diagnosis Chest pain, unspecified type documented in this encounter Administered Medications Inactive Administered Medications - up to 3 most recent administrations Medication Order MAR Action Action Date Dose Rate Site aspirin 81 mg chewable tablet 1 dose, Starting on Mon08/17/21 at 1655, Until Mon08/17/21 at 1657, GULSHAN BLAKE.: cabinet override aspirin chewable tablet 324 mg 324 mg, Oral, ONCE, 1 dose, On Mon08/17/21 at 1655, STAT Given 08/17/2021 4:57 PM EDT 324 mg nitroGLYcerin (Nitrostat) 0.4 mg disintegrating tablet 1 dose, Starting on Mon08/17/21 at 1246, Until Mon08/17/21 at 1254, GULSHAN BLAKE.: cabinet override Given 08/17/2021 12:54 PM EDT 0.4 mg documented in this encounter Active and Recently Administered Medications Times are shown in EDT. Scheduled Medication Order 08/15/2021 08/16/2021 08/17/2021 aspirin chewable tablet 324 mg (COMPLETED) 324 mg, Oral, ONCE, 1 dose, On Mon08/17/21 at 1655, STAT 1657 (Given - Provid er: Gulshan Blake RN) No Frequency Medication Order 08/15/2021 08/16/2021 08/17/2021 nitroGLYcerin (Nitrostat) 0.4 mg disintegrating tablet (COMPLETED) 1 dose, Starting on Mon08/17/21 at 1246, Until Mon08/17/21 at 1254, GULSHAN BLAKE.: cabinet override 1254 (Given - Provid er: Lashawn Kaur) documented in this encounter Care Teams Supervisor Special Effects Relationship Specialty Start Date End Date Tasneem Galdamez MD [facility] [place] [address] PCP - General General Internal Medicine 05/20/2004/21 documented as of this encounter
--- OUTSIDE RECORDS SUMMARY | 2024-07-12 00:30 | XMS_ITS | Encounter Summary ---
Author Organization [facility] Address [facility] [place] [address] Care Team Providers Care Physical Therapy Aid Name Role Phone Theo Riley MD Primary Care Provider [phone] Reason for Referral * Consultation (Urgent) - Closed Specialty Diagnoses / Procedures Referred By María Elena mcdaniel Referred To Contact Obstetrics and Gynecology Diagnoses Abnormal uterine bleeding Theo Riley MD [facility] [place] [address] [facility] [employer] [place] [address] Referral ID Status Reason Start Date Expiration Date V isits Requested Visits Authorized [id number] Closed Specialty Service Requested 11/19/2019 11/18/2020 1 1 Encounter Details Date Type Department Care Team (Late st Contact Info) Description 11/18/2019 Telephone Internal Medicine at [address] [address] Shanna Bishop Social History Tobacco Use [...] encounter Miscellaneous Notes * Addendum Note - Theo Riley - 11/19/2019 7:12 AM ESTAddended by: THEO RILEY on: 11/19/2019 07:12 AM Modules accepted: Orders * Telephone Encounter - Shanna Bishop - 11/18/2019 2:15 PM EST Theo food and nutrition services supervisor states there is no referral for the endometrial biopsy. Can you enter this referral LORENZA forthem to schedule? Shanna * Telephone Encounter - Shanna Bishop - 11/18/2019 2:15 PM EST ----- Message from Theo Riley MD sent at 11/04/2019 6:05 PM EST ----- Can you please help schedule in OBGYN for endometrial biopsy? Per Drs. Ritchie and Huseyin this is needed given her ultrasound results. I called Tracie this evening to let her know someone would call. Thanks! ----- Message ----- From: Rosie Fontanez MD Sent: 11/01/2019 10:16 AM EST To: Theo Riley MD, Rommel Ritchie MD Ma Theo - Thanks for the note. Tracie needs to have an endometrial biopsy especially with a change in bleedingpattern, obesity, etc evaluating for hyperplasia/malignancy and to help understand whats happening with her cycles. However, it looks like she had the ultrasound at the end of her cycle (LMP per the report was 10/01) so likely the endometrium is the thickest it will be. In either case, she can come back to us to have the biopsy or you could do it with her. I recall that she has a hard time leaving the house. I can't recall if she has a hard time with new people. Alternatively, due to availability, she could see one of our generalists. I've cc'd Jr Ritchie who saw her in his clinic. Please let me know if you'd like ob-circulation representative to see her and I'm happy to help in whatever way. Thanks Rosie ----- Message ----- From: Theo Riley MD Sent: 10/31/2019 5:50 PM EST To: MD Norman Garcia, I think you saw Tracie a few months ago for urinary incontinence. She was concerned about heavy menses as well, but doesn't look like she brought that up at the visit. She had a TVUS done today which showed: Thickened (14 mm) ill-defined endometrium but without focal masses to suggest a polyp. The endometrial myometrial border is very indistinct and there is heterogeneity and echogenic foci within the myometrium as well as some small cysts which is suggestive of adenomyosis. No fibroids seen. Normal ovaries. I'm not entirely sure what to make of the report, so was wondering if you might be able to direct me. Should I encourage her to schedule again to discuss this? She has severe anxiety in public so it can be difficult to get her to follow-up promptly. Theo Morgan documented in this encounter Plan of Treatment Upcoming Encounters Date Type Department Care Team (Late st Contact Info) Description 09/05/2024 9:00 AM EDT Office [place] [address] Gema Oliveira DO [facility] [place] [address] Scheduled Referrals Name Type Priority Associated Diagnoses Orde r Schedule Referral to Ob-Adz Worker Outpatient Referral Routine Abnormal uterine bleeding Ordered: 11/19/2019 documented as of this encounter Visit Diagnoses Diagnosis Abnormal uterine bleeding Unspecified disorder of menstruation and other abnormal bleeding from female genital tract documented in this encounter Care Teams Physical Therapy Aid Relationship Specialty Start Date End Date Theo Riley MD [facility] [address] [place] [address] PCP - General General Internal Medicine 08/15/17 6/3 documented as of this encounter
--- OUTSIDE RECORDS SUMMARY | 2024-07-12 00:30 | XMS_ITS | Encounter Summary ---
Author Organization [facility] [place] [address] Care Team Providers Care Ambulatory Care Nurse Name Role Phone Tasneem Galdamez MD Primary Care Provider [phone] Reason for Visit * Reason Comments Depression Medication Check Encounter Details Date Type Department Care Team (Late st Contact Info) Description 09/17/2020 9:30 AM EDT Office Visit Internal Medicine at [address] [address] Tasneem Galdamez MD [facility] [place] [address] Flu vaccine need; Essential hypertension; Impaired fasting glucose; Gastroesophageal reflux disease without esophagitis; Anxiety; Current moderate episode of major depressive disorder, unspecified whether recurrent; Agoraphobia Social History Tobacco Use Types Packs/Day [...] Sign Reading Time Taken Comments Blood Pressure 139/97 09/17/2020 9:17 AM EDT Pulse 92 09/17/2020 9:17 AM EDT Temperature 36.8 ??C (98.2 ??F) 09/17/2020 9:25 AM ED T Respiratory Rate - - Oxygen Saturation 100% 09/17/2020 9:17 AM EDT Inhaled Oxygen Concentration - - Weight 119.1 kg (262 lb 9.6 oz) 09/17/2020 9:17 AM EDT Height 174.5 cm (5' 8.7) 09/17/2020 9:17 AM EDT reported Body Mass Index 39.12 09/17/2020 9:17 AM EDT documented in this encounter Patient Instructions * Patient Instructions* Tasneem Galdamez MD - 09/17/2020 9:30 AM EDT [employer] [facility] This is a great resource for finding counselors in your area. documented in this encounter Progress Notes * Tasneem Galdamez MD - 09/17/2020 9:30 AM EDT Subjective: Patient ID: Tracie Layton is a 49 y.o. female. HPI Chief Complaint Patient presents with ??? Depression ??? Medication Check Depression: PTSD Agoraphobia Anxiety - Was on Wellbutrin 150mg BID in the past, however stopped taking; she didn't feel it was helping - Was on Duloxetine 60mg daily in the past, however stopped a few months ago. [place] she was taking too many meds - Recent total hysterectomy in May 2020. Since then she has struggled more with depression and anxiety recently - She struggles with having a lack of patience and mood swings. - States she never leaves the house and just stares at her phone. Gets easily frustrated with lovedones - She denies having any thoughts of hurting herself; she states she has a lot of things to live forwith 2 granddaughters and a grandson on the way - She also endorses severe anxiety along with the depressed mood. - In the past she had a counselor, however since the counselor retired she has not found another one. Although while working with the counselor she had good results -She states she cannot go out by herself. Her boyfriend always goes with her. If she does go out, she gets shaky and her heart races. - She notes that she has been on several antidepressants in the past, but often gets frustrated that they do not work in a timely manner and stops AUB: - Management per Dr. Schaeffer - s/p total hysterectomy - Currently on estradiol - She has difficulty sleeping due to hot flashes - She is currently getting several hot flushes throughout the day and night. She describes them to be drenching occasionally, having to change her sheets and clothes. Tobacco use: - Nicotine lozenge - not taking - Nicotine inhaler - not taking - Currently half pack a day - Not interested in cutting back at this time. Review of Systems Constitutional: Positive for activity change (decreased) and fatigue. Negative for chills and fever. Respiratory: Negative for shortness of breath. Cardiovascular: Negative for chest pain. Gastrointestinal: Negative for abdominal pain, constipation and diarrhea. Genitourinary: Negative for pelvic pain. Psychiatric/Behavioral: Positive for sleep disturbance. Negative for suicidal ideas. The patient isnervous/anxious. Depressed mood Objective: BP (!) 139/97 (BP Location (NBP): Left arm, Patient Position: Sitting, BP Cuff Sizes: Large Adult (32-43 cm)) Pulse 92 Temp 36.8 ??C (98.2 ??F) (Oral) Ht 174.5 cm (5' 8.7) Comment: reported Wt 119.1 kg (262 lb 9.6 oz) SpO2 100% BMI 39.12 kg/m?? PHQ-9 QUESTIONNAIRE SCORE ONLY (AMB) 09/25/2018 PHQ - 9 Score (Patient) 24 (Severe Depression) Some recent data might be hidden Wt Readings from Last 3 Encounters: 09/17/20 119.1 kg (262 lb 9.6 oz) 12/02/19 119.7 kg (263 lb 12.8 oz) 11/28/19 118.3 kg (260 lb 12.8 oz) Physical Exam Constitutional: General: She is not in acute distress. Appearance: Normal appearance. She is obese. HENT: Head: Normocephalic and atraumatic. Cardiovascular: Rate and Rhythm: Normal rate. Pulses: Normal pulses. Heart sounds: No murmur. Pulmonary: Effort: Pulmonary effort is normal. No respiratory distress. Breath sounds: Normal breath sounds. Skin: General: Skin is warm. Comments: Moist Neurological: Mental Status: She is alert. Psychiatric: Mood and Affect: Mood is anxious. Affect is flat. Speech: Speech normal. Behavior: Behavior normal. Behavior is cooperative. Thought Content: Thought content normal. Assessment and Plan: Tracie was seen today for depression and medication check. She is struggling with worsening depression and anxiety. She recently went off of all her mood stabilizing medications. She has tried severalSSRI and SNRI's in the past without success. Diagnoses and all orders for this visit: Flu vaccine need - FluLaval Quadrivalent vaccine, Preservative Free 6MOS+ Essential hypertension - Need for refills - hydroCHLOROthiazide (Hydrodiuril) 25 mg Tablet; Take 1 tablet by mouth daily. - lisinopriL (Prinivil;Zestril) 40 mg Tablet; Take 1 tablet by mouth daily. Impaired fasting glucose- need for refills - metFORMIN XR (Glucophage XR) 500 mg Tablet Sustained Release 24 hr; Take 1 tablet by mouth 2 times daily. Gastroesophageal reflux disease without esophagitis - Need for refills - omeprazole (PriLOSEC) 40 mg Capsule, Delayed Release(E.C.); Take 1 capsule by mouth daily. Anxiety - hydrOXYzine (Atarax) 25 mg Tablet; Take 1 tablet by mouth 3 times daily as needed for Anxiety - Educated the patient that this medication can lead to drowsiness and that she should not drive while taking this medication. Current moderate episode of major depressive disorder, unspecified whether recurrent - vortioxetine (Trintellix) 10 mg Tablet; Take 1 tablet by mouth daily. - Educated the patient that this medication takes 4-6 weeks to fully be effective and to take consistently. Informed the patient that at the start of these types of medications, symptoms can worsen. If symptoms severely worsen she understands to call for further guidance - Will plan to f/u in 5-6 weeks to monitor progress. - Encouraged her to reconnect with a counselor and provided [employer] as a resource. * Froilan Crane MD - 09/17/2020 9:30 AM EDT I have seen the patient and reviewed the resident's above history and I agree with the details as written. The assessment and plan were formulated in discussion with me and I agree with them as documented. Pertinent History: Pt here for f/u Depression/anxiety: states that since had hysterectomy and feels like mood has declined. Was on cymbalta and wellbutrin but mostly for smoking and pain. Is having some more anxiety also. No motivation. No SI. Currently does not have a counselor Pertinent Exam: Anxious appearing Major issues addressed: Start trintellix given no response in the past to multiple ssri's and snri's Prn hydroxyzine * Leah Ruiz, RN - 09/17/2020 9:30 AM EDTSummary: Influenza Vaccine Given L deltoid after she answered all screening questions appropriately. Discussed VIS sheet whichwas given to the pt and encouraged her to make contact for any untoward effects. documented in this encounter Plan of Treatment Upcoming Encounters Date Type Department Care Team (Late st Contact Info) Description 09/05/2024 9:00 AM EDT Office Visit Internal Medicine at [address] [address] Gema Oliveira DO [facility] [address] [address] documented as of this encounter Visit Diagnoses Diagnosis Flu vaccine need Need for prophylactic vaccination and inoculation against influenza Essential hypertension Unspecified essential hypertension Impaired fasting glucose Gastroesophageal reflux disease without esophagitis Esophageal reflux Anxiety Anxiety state, unspecified Current moderate episode of major depressive disorder, unspecified whether recurrent Agoraphobia Agoraphobia without mention of panic attacks documented in this encounter Care Teams Ambulatory Care Nurse Relationship Specialty Start Date End Date Tasneem Galdamez MD [facility] [address] [place] [address] PCP - General General Internal Medicine 05/20/20/2 06/11 documented as of this encounter
--- OUTSIDE RECORDS SUMMARY | 2024-07-12 00:30 | XMS_ITS | Encounter Summary ---
Author Organization [facility] [place] [address] Care Team Providers Care Certified Orthotist Name Role Phone Tasneem Galdamez MD Primary Care Provider [phone] Reason for Visit * Reason Onset Date Comments Triage 02/12/2021 covid Encounter Details Date Type Department Care Team (Late st Contact Info) Description 02/12/2021 [place] [id number] Leo Hsu, pmo lead (covid) Social History Tobacco Use Types Packs/Day Years [...] encounter Miscellaneous Notes * Telephone Encounter - Leo Hsu RN - 02/12/2021 10:40 AM EDT High Threat Infection Intake Questions Nurse Triage Assessment Review of Pertinent Systems & Pertinent positive/negative findings (e.g. Skin, Neurological, Respiratory, Cardiac, GI, , and Musculoskeletal): Nause/vomiting and diarrhea When did your symptoms start? 02/11 Are symptoms within 48 hours of receiving Covid 19 Vaccine? No If yes, the following symptoms would be considered a side effect: Fatigue, Headache, Sore injection site, Chills, Muscle pain, Joint pain, Fever. Do not test for Covid 19 unless symptoms persist past 48 hours. People with any of these acute symptoms may have COVID-19: Detail of symptoms: Cough: No Shortness of Breath: No Fever: No Check all that apply: [] Fatigue [] Muscle or Body Aches [] Headache [] New loss of taste or smell [] Sore Throat [] Congestion or runny nose [x] Nausea or vomiting [x] Diarrhea Pediatrics: [] Retractions/belly breathing [] Skin/Lip color changes [] Wheezing [] Stridor [] Eating/Drinking normally [] Voiding normally Employee or household member at [employer]? No If yes, please state whether employee or household member: - If employee, check to see if qualifies for RAPID testing: No (Yes if employee scheduled to work in hospital in less than 24 hours and has *primary role in direct inpatient care or surgeon) *primary role: Attending, Resident/Mortician Investigator, TASNEEM, RN, COUNTY PROGRAM TECHNICIAN Have you been in contact with anyone suspected or confirmed to have COVID-19 in the past 14 days? Yes Plan/Disposition: If ordering test, ordering PCP: Tasneem Galdamez Date, time and location of test: 02/13 [facility] If sending for testing ask the following: Any travel in the past 14 days? No If so, Where: - Date of Return: - Have you been diagnosed with Covid 19 in the past 90 days? No Are you fully vaccinated for Covid 19? No First test for Covid-19: No If not first covid test: Date of previous test: 05/11/20 Type of test (molecular, antigen, antibody, or unknown), and result of previous test: Neg Mol Employed in healthcare: no Symptomatic as defined by CDC: yes Resides in congregate care setting: no : no Name of Triage Guideline/Protocol used: Utilized High Threat Infection Screening for Covid 19 Hotline as directed by incident command and infectious disease based on CDC guidelines, [place] Department of Health and Human Services, and [facility] policy. Patient/Responsible democrat voices an understanding of advice: yes Patient/Responsible democrat intends to comply with actions/disposition: yes TESTING CRITERIA: Asymptomatic patients: Criteria for testing- member of or healthcare worker at a jail/long term, mcfp facility or tank terminal gauger care facility (LTCF), and all first responders. Pre procedural patients requiring admission or determined high risk by provider. * patient/ employee returning to college/boarding school, returning to work requirement, or travel requirement. Exposure as determined by [facility], School, or Occupational Medicine at . Symptomatic Patients: People with COVID-19 have had a wide range of symptoms reported - ranging from mild symptoms to severe illness. Symptoms may appear 2-14 days after exposure to the virus. Consider testing if these symptoms cannot otherwise be explained. All Patients - If YES to exposure and NO to symptoms - Proceed with Quarantine Instructions. [facility], [facility], or Occupational Medicine may request testing. If NO to symptoms/exposure - Proceed with Nurse Triage - Proceed with appropriate instructions based on Triage protocol If YES to symptoms - Proceed with testing protocol - Proceed with Isolation instructions Name of Triage Guideline/Protocol used: Utilized High Threat Infection Screening for Covid 19 Hotline as directed by incident command and infectious disease based on CDC guidelines, [place] Department of Health and Human Services, and [facility] policy. Important instructions for patient when scheduling for testing: -No dogs allowed in car unless in kennel or behind gated section, due to risk to the clinical staff. -Follow quarantine/isolation instructions (pamphlets available to hand out at testing location Education/Instructions: Isolation Instructions: 1. Stay home from work, school, and away from other public places. If you must go out, avoid using any kind of public transportation, ridesharing, or taxis. 2. Monitor your symptoms carefully. If your symptoms get worse, call your healthcare provider immediately. 3. Get rest and stay hydrated. 4. If you have a medical appointment, call the healthcare provider ahead of time and tell them thatyou have or may have COVID-19. 5. For medical emergencies, call 911 and notify the dispatch personnel that you have or may have COVID-19. 6. Cover your cough and sneezes. 7. Wash your hands often with soap and water for at least 20 seconds or clean your hands with an alcohol-based hand consumer product advisor that contains at least 60% alcohol. 8. As much as possible, stay in a specific room and away from other people in your home. Also, you should use a separate bathroom, if available. If you need to be around other people in or outside ofthe home, wear a facemask. 9. Avoid sharing personal items with other people in your household, like dishes, towels, and bedding 10. Clean all surfaces that are touched often, like counters, tabletops, and doorknobs. Use household cleaning sprays or wipes according to the label instructions. 11. You can use acetaminophen or ibuprofen as directed for fever. Emergency Warning Signs: If you develop emergency warning signs for COVID-19 get medical attention immediately. Emergency warning signs include: ??? Difficulty breathing or shortness of breath ??? Persistent pain or pressure in the chest ??? New confusion or inability to arouse ??? Bluish lips or face This list is not all inclusive. Please consult your medical provider for any other symptoms that are severe or concerning. Helpful definitions Close contact is described as: Being within approximately 6 feet (2 meters) of a COVID-19 case for a prolonged period of time; close contact can occur while caring for, living with, visiting, or sharing healthcare waiting area or room with a COVID-19 case. OR Having direct Contact with infectious secretions of a COVID-19 case (e.g., being coughed on) Fever Definition: 100.0 F or higher Additional information: ??? Recommend CDC website for helpful information on self-care and quarantine at home o https://www.cdc.gov/ and choose more information on Covid-19 *May test at [place] only. documented in this encounter Plan of Treatment Upcoming Encounters Date Type Department Care Team (Late st Contact Info) Description 09/05/2024 9:00 AM EDT Office Visit Internal Medicine at [place] [id number] Gema Oliveira DO [facility] [address] [place] [address] documented as of this encounter Visit Diagnoses Not on filedocumented in this encounter Care Teams Certified Orthotist Relationship Specialty Start Date End Date Tasneem Galdamez MD [facility] DR [address] [place], [place] [id number] PCP - General General Internal Medicine 05/20/2004/21 documented as of this encounter
--- OUTSIDE RECORDS SUMMARY | 2024-07-12 00:30 | XMS_ITS | Encounter Summary ---
Author Organization [facility] [place] [address] Care Team Providers Care Sales Designer Name Role Phone Tasneem Galdamez MD Primary Care Provider [phone] Reason for Visit * Reason Onset Date Comments Results 02/14/2021 Negative Covid Encounter Details Date Type Department Care Team (Late st Contact Info) Description 02/14/2021 [place] [address] Sandy Keenan, RN Results (Negative Covid) Social History Tobacco Use Types Packs/Day Years [...] EDT Office Visit Internal Medicine at [address] [id number] Gema Oliveira, [facility] [place] [address] documented as of this encounter Visit Diagnoses Not on filedocumented in this encounter Care Teams Sales Designer Relationship Specialty Start Date End Date Tasneem Galdamez MD [facility] [place] [address] PCP - General General Internal Medicine 05/20/2004/21 documented as of this encounter
--- OUTSIDE RECORDS SUMMARY | 2024-07-12 00:30 | XMS_ITS | Encounter Summary ---
Author Organization [facility] Address [facility] [place] [address] Care Team Providers Care Instructional Services Librarian Name Role Phone Tasneem Galdamez MD Primary Care Provider [phone] Reason for Visit * Reason Comments Medication Refill Encounter Details Date Type Department Care Team (Late st Contact Info) Description 03/06/2021 Refill Internal Medicine at [address] [address] Tasneem Galdamez MD [facility] [address] [address] Current moderate episode of major depressive disorder, [...] EDT Office Visit Internal Medicine at [address] [address] Gema Oliveira DO [facility] [address] [address] documented as of this encounter Visit Diagnoses Diagnosis Current moderate episode of major depressive disorder, unspecified whether recurrent PTSD (post-traumatic stress disorder) Posttraumatic stress disorder Anxiety Anxiety state, unspecified Agoraphobia Agoraphobia without mention of panic attacks documented in this encounter Care Teams Instructional Services Librarian Relationship Specialty Start Date End Date Tasneem Galdamez MD [facility] [place] [address] PCP - General General Internal Medicine 05/20/2004/21 documented as of this encounter
--- OUTSIDE RECORDS SUMMARY | 2024-07-12 00:30 | XMS_ITS | Encounter Summary ---
[place] [address] Care Team Providers Care Vehicle Upholsterer Name Role Phone Marguerite Riley MD Primary Care Provider [phone] Encounter Details Date Type Department Care Team (Late st Contact Info) Description 03/16/2020 Telephone Internal Medicine at [address] [address] Shanna Bishop Social History Tobacco Use Types [...] * Telephone Encounter - Shanna Bishop - 03/16/2020 2:28 PM EDT Appointment on 03-02-[address] Riley has been bumped. Left Message for patient to call back to reschedule. Please transfer patient to exit stenographer secretary to aid in scheduling no PSC can schedule yes, please reschedule for a telehealth visit with Dr Riley documented in this encounter Plan of Treatment Upcoming Encounters Date Type Department Care Team (Late st Contact Info) Description 09/05/2024 9:00 AM EDT Office Visit Internal Medicine at [address] [address] Gema Oliveira, [facility] [place] [address] documented as of this encounter Visit Diagnoses Not on filedocumented in this encounter Care Teams Vehicle Upholsterer Relationship Specialty Start Date End Date Marguerite Riley MD [facility] [address] [address] PCP - General General Internal Medicine 08/15/1704/22 documented as of this encounter
--- OUTSIDE RECORDS SUMMARY | 2024-07-12 00:30 | XMS_ITS | Encounter Summary ---
Author Organization [facility] [place] [address] Care Team Providers Care Accounting Policy Consultant Name Role Phone Marguerite Riley MD Primary Care Provider [phone] Encounter Details Date Type Department Care Team (Late st Contact Info) Description 11/28/2019 Telephone Internal Medicine at [facility] [address] [place] [address] Marguerite Riley MD [facility] [place] [address] Social History Tobacco Use Types Packs/Day Years [...] encounter Miscellaneous Notes * Telephone Encounter - Marguerite Riley - 11/28/2019 1:40 PM EST TC to patient (left VM) to let her know that labs showed normal kidney function and electrolytes. She can continue her anti-hypertensives as prescribed. Iron studies very low and I'll prescribed ferrous sulfate 325mg daily for her. She should take thiswith an acidic meal and decrease to three times per week if causing constipation. It may make her stools appear dark. I called the pharmacy and they need a prior authorization for her nicotine inhaler, so I will work on this. documented in this encounter Plan of Treatment Upcoming Encounters Date Type Department Care Team (Late st Contact Info) Description 09/05/2024 9:00 AM EDT Office Visit Internal Medicine at [address] [address] Gema Oliveira DO [facility] [address] [address] documented as of this encounter Visit Diagnoses Not on filedocumented in this encounter Care Teams Accounting Policy Consultant Relationship Specialty Start Date End Date Marguerite Riley MD [facility] [place] [address] PCP - General General Internal Medicine 08/15/1704/22 documented as of this encounter
--- OUTSIDE RECORDS SUMMARY | 2024-07-12 00:31 | XMS_ITS | Encounter Summary ---
Author Organization [facility] Address [facility] [place] [address] Care Team Providers Care Rodeo Clown Name Role Phone Marguerite Riley MD Primary Care Provider [phone] Reason for Visit * Reason Comments Annual Exam Abdominal Pain for a few weeks Encounter Details Date Type Department Care Team (Late st Contact Info) Description 09/25/2018 1:30 PM EST Office Visit Internal Medicine at [address] [address] Marguerite Riley MD [facility] [place] [address] Annual physical exam; Depression, unspecified depression type; Morbid obesity with BMI of 40.0-44.9, adult; Hypertension, essential, benign; Impaired fasting glucose; Lower abdominal pain; Encounter for screening for cervical cancer Social History Tobacco Use Types Packs/Day Years Used Date Smoking Tobacco: Every Day Cigarettes 0.3 30 Smokeless Tobacco: Never Comments:2 or 3 a day Alcohol Use Standard Drinks/Week Comments Yes 0 (1 standard drink = 0.6 oz pur e alcohol) Occasional Sex and Gender Information Value Date Recorded Sex Assigned at Not on file Gender Identity Not on file Sexual Orientation Not on file documented as of this encounter Last Filed Vital Signs Vital Sign Reading Time Taken Comments Blood Pressure 132/92 09/25/2018 2:11 PM EST Pulse 101 09/25/2018 1:30 PM EST Temperature 36.7 ??C (98.1 ??F) 09/25/2018 1:30 PM ES T Respiratory Rate - - Oxygen Saturation 98% 09/25/2018 1:30 PM EST Inhaled Oxygen Concentration - - Weight 126 kg (277 lb 12.8 oz) 09/25/2018 1:30 P M EST Height 175.4 cm (5' 9.06) 09/25/2018 1:30 PM ES T Body Mass Index 40.96 09/25/2018 1:30 PM EST documented in this encounter Patient Instructions * Patient Instructions* Marguerite Riley - 09/25/2018 1:30 PM EST Online counseling resources to consider: - [employer]: Online counseling provided by a network of licensed counselors (often significantly less expensive than in-person counseling) - [employer]: Online counseling provided by a network of licensed counselors (often significantly less expensive than in-person counseling) documented in this encounter Progress Notes * Marguerite Riley - 09/25/2018 1:30 PM EST Subjective: Patient ID: Tracie Layton is a 47 y.o. female with a complex medical history in today for annual exam. HPI Chief Complaint Patient presents with ??? Annual Exam ??? Abdominal Pain for a few weeks Abdominal pain This started a few weeks ago. She has sharp pains in the bilateral lower abdomen and suprapubic area which comes and goes. There is no radiation. The pains last seconds to minutes and sometimes causes her to double over in pain. She has no changes in urinary or bowel habits, no new or change in back pain, no fevers, chills, body aches, no new constipation. She moves her bowels daily without change in stool habits and has no blood in stools or black tarry stools. She denies urinary changes. Her menses remain irregular as they always have. She is due to have her menses. This is somewhat similarto cramping that she has prior to menses. Blood pressure She is taking the lisinopril daily. She has no dizziness or lightheadedness. She has not been monitoring BPs at home due to nervousness. She reports not feeling nervous today. She has cut salt out ofher diet to help with blood pressure. Smoking She is down to 2-3 cigarettes per days. She is not feeling like she needs any nicotine replacement.She chews gum instead. She is taking the wellbutrin 150mg twice per day and Chantix 1 mg daily. Shehas not noted any side effects. Mood She feels this is still horrible. She hasn't noticed any difference with Wellbutrin good or bad. She has not taken the steps to find a counselor. She doesn't get as happy seeing her grand kids. She thinks her poor mood may be residual from many recent losses of family members and friends, especially her mom. She still spontaneously cries. She denies SI or HI. She is not sure if another medicationwould help. Review of Systems myD-H Primary Care 09/25/2018 PROMIS 10-Health in general Poor PROMIS 10-Quality of life Poor PROMIS 10-Physical health Poor PROMIS 10-Mental health Poor PROMIS 10-Satisfaction with social activities Poor PROMIS 10-Ability to carry out social activities Poor PROMIS 10-Ability to carry out physical activities A little PROMIS 10-Bothered by emotional problems Always PROMIS 10-Rate of fatigue Moderate PROMIS 10-Rate of pain 3 PROMIS 10- Physical Health Score 34.9 PROMIS 10- Mental Health Score 21.2 REVIEW OF SYSTEMS 09/25/2018 Constitutional Hot flashes, Drowsiness, Pain Ear / nose / throat / mouth None of the above Eyes None of the above Respiratory Wheezing, Shortness of breath Cardiovascular Fluttering heart beat (heart palpitations), Chest pain, Chest tightness Gastrointestinal None of the above Skin, hair Sweats Musculoskeletal Back pain, Joint pain, Muscle stiffness, Unable to walk/difficulty walking Neurological None of the above Hematologic / Lymphatic Night sweats Genitourinary Frequent urination, Urinary incontinence Breast Cancer Risk (DURAN) Scores 09/25/2018 Lifetime Risk of Patient 6.3 Average Lifetime Risk 11.8 5-Year Risk of Patient 0.6 Average 5-Year Risk 1 Recommend Genetic Risk Assessment w/B-RST 0 (If meets USPSTF BRCA testing guideline) PHQ-9 QUESTIONNAIRE (AMB) 09/25/2018 PHQ - 9 Score (Clinic) - PHQ - 9 Score (Patient) 24 (Severe Depression) Little interest or pleasure (Clinic) - Little interest or pleasure (Patient) Nearly every day Down, depressed, hopeless (Clinic) - Down, depressed, hopeless (Patient) Nearly every day Trouble sleeping (Clinic) - Trouble sleeping (Patient) Nearly every day Tired or no energy (Clinic) - Tired or no energy (Patient) Nearly every day Poor appetite or overeating (Clinic) - Poor appetite or overeating (Patient) Nearly every day Feeling like a failure (Clinic) - Feeling like a failure (Patient) Nearly every day Trouble concentrating (Clinic) - Trouble concentrating (Patient) Nearly every day Moving or speaking slowly (Clinic) - Moving or speaking slowly (Patient) Nearly every day Would be better off (Clinic) - Would be better off (Patient) Not at all How difficult are the problems (Clinic) - Objective: BP (!) 132/92 (BP Location (NBP): Left arm, Patient Position: Sitting) Pulse (!) 101 Temp 36.7 ??C (98.1 ??F) (Oral) Ht 175.4 cm (5' 9.06) Wt 126 kg (277 lb 12.8 oz) LMP 09/05/2018 (Approximate) SpO2 98% BMI 40.96 kg/m?? Patient reported measures: Pain:3 Physical Health:Poor Fall: PHQ-9 QUESTIONNAIRE SCORE ONLY (AMB) 09/25/2018 PHQ - 9 Score (Patient) 24 (Severe Depression) Some recent data might be hidden Physical Exam General: alert, oriented, in no acute distress HEENNT: atraumatic, normocephalic, sclera non-icteric, conjunctiva pink, PERRLA, EOMI, oropharynx clear without exudate, moist mucous membranes Cardiovascular: RRR, normal S1/S2, no murmurs/rubs/gallps Lungs: chest symmetric, normal effort, CTABL Abdomen: +BS, soft, non-distended, mild suprapubic tenderness with palpation Extremities: no LUIS ARMANDO MSK: no joint swelling or erythema Skin: warm, intact, no bruises, no suspicious lesions Psychologic: flat affect, normal thought content, good judgement and reasoning, no abnormal behavior during the exam Pelvic exam: Mons hair distribution, normal labia, clitoris, introitus, and perineum; vagina rugated and pink without lesions or abnormal discharge, good tone; cervix midline, pink and smooth withoutfriability, bleeding, or discharge, no cervical motion tenderness; uterus small, firm, midline, smooth and mobile, adnexae bilaterally nontender without masses Labs: Lab Results Component Value Date HA1C 5.9 (H) 08/22/2018 Lab Results Component Value Date CREATININE 1.13 08/22/2018 Lipid Panel Lab Results Component Value Date CHLPL 184 08/22/2018 HDL 38 08/22/2018 CHOLHDL 4.8 08/22/2018 LDLDIRECT 122 08/22/2018 POCT urine: Trace protein and trace blood Health maintenance Health Maintenance Topic Date Due ??? PAP every 5 yrs 08/11/2019 ??? HPV test every 5 yrs 08/11/2019 ??? Pre-DM monitoring (HgbA1C or FBG) 08/22/2019 ??? Tetanus vaccine 07/30/2023 ??? Lipid Screening 08/22/2023 ??? Pneumo Increased Risk Completed ??? Influenza (Flu) vaccine Completed ??? Tdap adult Completed ??? HIV screen Completed Assessment and Plan: Tracie was seen today for annual exam. She has new onset lower abdominal pain of unclear etiology. Favor uterine pathology given midline suprapubic tenderness; she feels this may represent pre-menstrual pain. She has no signs of pelvic inflammation on GRAIN BROKER AND MARKET OPERATOR exam and deferred STI testing today. Bladderstone possible given trace blood on dipstick. No bowel changes to suggest rectal etiology. Diagnoses and all orders for this visit: Annual physical exam - PAP/HPV done today Depression, unspecified depression type - Continue Wellbutrin - Will look into online counseling resources - Follow-up in one month - May consider duloxetine at that time Morbid obesity with BMI of 40.0-44.9, adult - Encouraged regular exercise with goal of 150mins/week - Will look into a stationary bike Hypertension, essential, benign - Continue lisinopril at current dose - Consider home monitoring by daughter Impaired fasting glucose - Start metformin today 500mg daily and increase to 1,000mg daily after two weeks Tobacco use - Continue Chantix and Wellbutrin - No nicotine replacement needed at this time Abdominal pain - Will be in touch following menses - If ongoing pain, consider trans-vaginal ultrasound to start versus other abdominal/pelvic imaging * Danae Rowe MD - 09/25/2018 1:30 PM EST The case was discussed at the time of the visit or immediately after the visit. The assessment and plan were formulated in discussion with me and I agree with them as documented. I have reviewed the history, physical exam, assessment and plan with the resident. Major issues discussed today: 47 year old female with a history of ADHD, asthma, agoraphobia, depression, IFG, GERD, HTN, obesity, OA, PTSD, RLS and tobacco abuse, here for her annual exam. - IFG: Recent A1c elevated at 5.9%. Focusing on dietary changes, including reduced sugar intake. - HTN: Maintained on lisinopril 20 mg PO daily. Not checking BP at home due to anxiety. BP today 132/92, improved from prior. - Depression: PHQ-9 score today of 24, consistent with severe depression. No SI/HI. Interested in talk therapy but prefers online therapy due to agoraphobia. Currently maintained on bupropion 150 mg PO BID. - Tobacco abuse: Decreased to 2-3 cigarettes per day on varenicline. Pleased about this progress. - Abdominal pain: Present on and off for the last two weeks. Described as sharp and stabbing in nature, located in her bilateral lower quadrants, non-radiating, lasting seconds to minutes. No associated changes in bowel habits or bladder habits. No changes in menses (irregular at baseline); not recently sexually active. No increased low back pain, fevers, chills, unintentional weight loss. Agreeable to pelvic exam and pap smear today. Vitals: 09/25/18 1330 09/25/18 1411 BP: (!) 143/93 (!) 132/92 BP Location (NBP): Left arm Patient Position: Sitting Pulse: (!) 101 Temp: 36.7 ??C (98.1 ??F) TempSrc: Oral SpO2: 98% Weight: 126 kg (277 lb 12.8 oz) Height: 175.4 cm (5' 9.06) Plan: 1. IFG: Trial of metformin 500 mg PO daily x 2 weeks; increase to 1000 mg PO daily thereafter. Encourage ongoing dietary changes and increased physical activity. 2. HTN: Improved control. Continue lisinopril 20 mg PO daily. Continue to monitor closely. 3. Depression: No SI/HI. Significant situational component, with multiple family deaths in the lastyear. Strongly encourage talk therapy--resources for online counseling provided today. Continue bupropion 150 mg PO BID. Monitor closely given varenicline use. - Tobacco abuse: Congratulated on continued efforts at cessation; monitor varenicline use carefullygiven depression. - Abdominal pain: Unclear etiology; pelvic exam unremarkable per Dr Riley, with no cervical motion tenderness. Tracie declines STI testing today as not recently sexually active. UA today unrevealing. Low threshold for abdominal/pelvic imaging if pain persists beyond menses. Follow up with PCP Dr Riley in 1 month, sooner as needed. documented in this encounter Plan of Treatment Upcoming Encounters Date Type Department Care Team (Late st Contact Info) Description 09/05/2024 9:00 AM EDT Office Visit Internal Medicine at [place] [id number] Gema Oliveira, [facility] [place] [address] documented as of this encounter Procedures Procedure Name Priority Date/Time Associated Diagnosis Comments HPV Routine 09/25/2018 2:08 PM EST GRAIN BROKER AND MARKET OPERATOR CYTOLOGY INTERPRETATION Routine 09/25/2018 2:08 PM EST GRAIN BROKER AND MARKET OPERATOR CYTOLOGY FINAL REPORT Routine 09/25/2018 2:08 PM EST CYTOPATHOLOGY GYNECOLOGICAL Routine 09/25/2018 2:08 PM EST Encounter for screening for cervical cancer POCT URINE DIPSTICK Routine 09/25/2018 1 :45 PM EST Lower abdominal pain documented in this encounter Results * GRAIN BROKER AND MARKET OPERATOR Cytology Interpretation (09/25/2018 2:08 PM EST) Stunner Animal Cytology Interpretation [facility] Comment:Stunner Animal Cytology Final R eport Stunner Animal Cytology Comment Present [facility] Endocervical Component Not Present [facility] AP Specimen 09/25/2018 2:08 PM EST 10/04/2018 4:12 PM EST Marguerite Riley MD PATHOLOGY/CYTOLOG Y ORDERABLES Performing Organization Address City/State/[facility] Co de Phone Number [facility] [place] [address] * Stunner Animal Cytology Final Report (09/25/2018 2:08 PM EST) [facility] Animal Cytology Final Report [id number] ? Location: [facility] The signing pathologist has (i) examined the relevant preparation(s) for the specimen(s) and (ii) rendered or confirmed the diagnosis(es). . ? Stunner Animal Final DIAGNOSIS Normal Negative for intraepithelial lesion or malignancy (NILM). For consensus guidelines for the management of cervical cancer screening test results, please see: ?? http://www.asccp.o rg . Electronically signed by: ??Ramirez DAWKINS(ASCP)Brandee Verified: ??10/04/2018 ?Licensed Direct Entry Midwife Performed at: ??-[facility] Dept. [place]ology, [place], [place] DISCUSSION Shift in eddie suggestive of [...] Clinical Genomics and Advanced Technology (CGAT) at [facility]. ? - Kwame Rebolledo, PhD, [facility], Director-[facility] STATEMENT OF ADEQUACY Specimen [...] I.U.D.?: ? No Pelvic Radiation: ?No Prior GRAIN BROKER AND MARKET OPERATOR Therapy?: ?Other (comment) . CLINICAL INFORMATION Hist Abnl Pap/Biopsy?: ?? Yes, Pap after Cryo, LEEP Hist of HPV Vaccine?: ?No Hist of Smoking?: ?Yes Hist of EDUARD exposure?: ?? No ICD Diagnosis: ? Z12.4 Encounter for screening for malignant neoplasm of cervix Clinical Data, Significant Therapy and Clinical Impression ?? : ?History of abnormal PAP in 2001, patient had ?11/23 cervix cut out presumed LEEP, no abnormal pap smears after LEEP This Pap Test has been evaluated with the assistance of the ThinPrep Pap Test Imaging System. Note: The Pap test is a screening test for cervical cancer with an inherent false-negative rate dependent upon several variables. For further information please contact the [facility]. Reference: Cirilo LEE. Seamer Elastic Band of Pap Smear Results. In: Magali BS, Gilmer HH, ed. The Pap Smear. [place]: Monico, 2001: 71-77. [facility] 09/25/2018 2:08 PM EST Marguerite Riley MD PATHOLOGY/CYTOLOG Y ORDERABLES Performing Organization Address [facility] de Phone Number [facility] [place] [address] * HPV (09/25/2018 2:08 PM EST) HPV16 NEGATIVE NEGATIVE [facility] HPV 18 NEGATIVE NEGATIVE [facility] HPV Other HR NEGATIVE NEGATIVE [facility] HPV Interpretation See Comment [facility] Comment: NEGATIVE for high-risk HPV [...] Lab Marguerite Riley MD PATHOLOGY/CYTOLOG Y ORDERABLES Performing Organization Address [facility] Co de Phone Number [facility] [place] [address] * Cytopathology Gynecological (09/25/2018 2:08 PM EST) AP Specimen 09/25/2018 2:08 PM EST 09/25/2018 8:41 PM EST Narrative [facility] - 09/25/2018 8:41 PM EST Specimen requisition ordered. ??Separate Pathology report to follow Resulting Agency Comment Spec In Lab Danae Rowe MD PATHOLOGY/CYTOLOGY O YAMIL [facility] [place] [address] * (ABNORMAL) POCT urine dipstick (09/25/2018 1:45 PM EST) POC Sp Crowder 1.025 1.002 - 1.030 POC pH, UA 5 5.0 - 8.5 POC Leuk, UA neg Negative - Negative POC Nitrite, UA neg Negative - Negative POC Protein, UA trace Negative - Negative mg/dL POC Glucose, UA norm Normal - Normal mg/dL POC Ketone, UA neg Negative - Negative POC Urobil, UA norm 0.2 - 1.0 mg/dL POC Bili, UA + Negative - Negative POC Blood, UA trace Negative - Negative niall/uL 09/25/2018 1:45 PM EST Danae Rowe MD POINT OF CARE TEST O YAMIL documented in this encounter Visit Diagnoses Diagnosis Annual physical exam Routine general medical examination at a health care facility Depression, unspecified depression type Morbid obesity with BMI of 40.0-44.9, adult Morbid obesity Hypertension, essential, benign Essential hypertension, benign Impaired fasting glucose Lower abdominal pain Abdominal pain, other specified site Encounter for screening for cervical cancer documented in this encounter Care Teams Rodeo Clown Relationship Specialty Start Date End Date Marguerite Riley MD [facility] [place] [address] PCP - General General Internal Medicine 08/15/17/ documented as of this encounter
--- OUTSIDE RECORDS SUMMARY | 2024-07-12 00:31 | XMS_ITS | Encounter Summary ---
Author Organization [facility] [place] [address] Care Team Providers Care Tax Revenue Officer Name Role Phone Marguerite Riley MD Primary Care Provider [phone] [phone] Reason for Visit * Reason Comments Medication Check Pt needs prescriptio n. Encounter Details Date Type Department Care Team (Late st Contact Info) Description 05/09/2019 1:00 PM EDT Office Visit Internal Medicine at [address] [address] Basilia iWlliamson APRN [facility] [place] [address] Bacterial vaginosis Social History Tobacco Use Types Packs/Day Years [...] Sign Reading Time Taken Comments Blood Pressure 136/85 05/09/2019 12:52 PM EDT Pulse 111 05/09/2019 12:52 PM EDT Temperature 36.9 ??C (98.5 ??F) 05/09/2019 12:52 PM E DT Respiratory Rate 18 05/09/2019 12:52 PM EDT Oxygen Saturation 98% 05/09/2019 12:52 PM EDT Inhaled Oxygen Concentration - - Weight 123.4 kg (272 lb) 05/09/2019 12:52 PM EDT Height - - Body Mass Index 39.59 12/06/2018 8:58 AM EST documented in this encounter Progress Notes * Basilia Williamson, TANK SYSTEMS MAINTAINER - 05/09/2019 1:00 PM EDT PCP: Marguerite Riley MD Chief Complaint Patient presents with ??? Medication Check Pt needs prescription. SUBJECTIVE: Tracie Layton is a 48 y.o. female who presents for vaginal discharge and odor. She has a history of bacterial vaginosis. She has had symptoms for at least a couple of weeks. Review of Systems Genitourinary: Positive for vaginal discharge. Negative for dyspareunia (not been sexually active recently. ), pelvic pain and vaginal bleeding. Allergies Allergen Reactions ??? Bactrim [Sulfamethoxazole-Trimethoprim] Anaphylaxis ??? Aleve [Naproxen Sodium] Rash Per neuro team, patient has tolerated ketorolac in the past ??? Keflex [Cephalexin] Other (See Comments) Racing heart ??? Meloxicam Nausea Only Current Outpatient Medications Medication Sig Dispense Refill ??? buPROPion (WELLBUTRIN SR OR ZYBAN) 150 mg tablet sustained-release 12 hr Once daily for 3 days then twice/day. Indications: Stop Smoking 90 tablet 3 ??? metFORMIN (GLUCOPHAGE-XR) 500 mg Tablet Sustained Release 24 hr Take 1 tablet by mouth daily. After two weeks, take 2 tablets by mouth daily (1,000mg total dose). 180 tablet 3 ??? varenicline (CHANTIX) 1 mg Tablet Take 1 tablet by mouth 2 times daily (with meals). 180 tablet0 ??? albuterol (PROAIR HFA) 90 mcg/actuation HFA Aerosol Inhaler Inhale 2 puffs into the lungs every4 hours as needed for Wheezing. Use with spacer 54 g 3 ??? DULoxetine (CYMBALTA) 30 mg Capsule, Delayed Release(E.C.) Take 1 capsule by mouth daily. 30 tablet 11 ??? diclofenac (VOLTAREN) 1 % Gel Apply 2 g topically 4 times daily as needed (pain, apply to low back.). 100 g 3 ??? ipratropium-albuterol (DUONEB) 0.5 mg-3 mg(2.5 mg base)/3 mL Solution for Nebulization Take 0.5mg by nebulization every 4 hours as needed. 60 vial 0 ??? lisinopril (PRINIVIL;ZESTRIL) 20 mg Tablet Take 1 tablet by mouth daily. 30 tablet 1 ??? omeprazole (PRILOSEC) 40 mg Capsule, Delayed Release(E.C.) Take 1 capsule by mouth 2 times daily. 180 capsule 3 No current facility-administered medications for this visit. Patient Active Problem List Diagnosis Code ??? Bilateral occipital neuralgia M54.81 ??? Post-traumatic headache G44.309 ??? Esophageal reflux (GERD) K21.9 ??? PTSD (post-traumatic stress disorder) F43.10 ??? [...] Z91.5 ??? Obstructive lung disease (generalized) J44.9 OBJECTIVE: Vitals: 05/09/19 1252 BP: 136/85 BP Location (NBP): Left arm Patient Position: Sitting BP Cuff Sizes: Large Adult (32-43 cm) Pulse: (!) 111 Resp: 18 Temp: 36.9 ??C (98.5 ??F) TempSrc: Oral SpO2: 98% Weight: 123.4 kg (272 lb) PHYSICAL EXAM: Physical Exam Constitutional: She is oriented to person, place, and time. She appears well- developed and well-nourished. HENT: Head: Normocephalic and atraumatic. Eyes: Conjunctivae are normal. No scleral icterus. Pulmonary/Chest: Effort normal. Genitourinary: No erythema or bleeding in the vagina. Vaginal discharge (small amount) found. Neurological: She is alert and oriented to person, place, and time. Skin: Skin is warm and dry. Psychiatric: She has a normal mood and affect. Her behavior is normal. Judgment and thought contentnormal. + clue cells on wet prep. ASSESSMENT & PLAN: Tracie was seen today for medication check. Diagnoses and all orders for this visit: Bacterial vaginosis - will treat with flagyl, discussed possible s/e and to avoid drinking alcohol while on medication - metroNIDAZOLE (FLAGYL) 500 mg Tablet; Take 1 tablet by mouth 2 times daily for 7 days. documented in this encounter Plan of Treatment Upcoming Encounters Date Type Department Care Team (Late st Contact Info) Description 09/05/2024 9:00 AM EDT Office Visit Internal Medicine at [place] [id number] Gema Oliveira DO [facility] GENER[facility] [place] [address] documented as of this encounter Visit Diagnoses Diagnosis Bacterial vaginosis Vaginitis and vulvovaginitis, unspecified documented in this encounter Care Teams Tax Revenue Officer Relationship Specialty Start Date End Date Marguerite Riley MD [facility] [address] [place] [address] PCP - General General Internal Medicine 08/15/17/ documented as of this encounter
--- OUTSIDE RECORDS SUMMARY | 2024-07-12 00:31 | XMS_ITS | Encounter Summary ---
[place] [address] Care Team Providers Care Bond Analyst Name Role Phone Marguerite Riley MD Primary Care Provider [phone] [phone] Reason for Visit * Reason Onset Date Comments Medication Problem 10/03/2019 Encounter Details Date Type Department Care Team (Late st Contact Info) Description 10/03/2019 Telephone Internal Medicine at [address] [id number] Nivia Nieto Medication Problem Social History Tobacco Use Types Packs/Day Years [...] encounter Miscellaneous Notes * Telephone Encounter - Nivia Nieto - 10/03/2019 10:29 AM EST Pharmacy or caller: [facility] Medication: Incontinence Pad, Liner, Disp Pad Message: pharmacist states they do not dispense these and we will need to send this prescription somewhere else. documented in this encounter Plan of Treatment Upcoming Encounters Date Type Department Care Team (Late st Contact Info) Description 09/05/2024 9:00 AM EDT Office Visit Internal Medicine at [address] [address] Gema Oliveira DO [facility] GENER[place] [address] documented as of this encounter Visit Diagnoses Not on filedocumented in this encounter Care Teams Bond Analyst Relationship Specialty Start Date End Date Marguerite Riley MD [facility] [place] [address] PCP - General General Internal Medicine 08/15/1704/22 documented as of this encounter
--- OUTSIDE RECORDS SUMMARY | 2024-07-12 00:31 | XMS_ITS | Encounter Summary ---
Author Organization [facility] [place] [address] Care Team Providers Care Microsoft Systems Engineer Name Role Phone Marguerite Riley MD Primary Care Provider [phone] [phone] Reason for Visit * Reason Onset Date Comments Medication Refill 11/01/2019 Encounter Details Date Type Department Care Team (Late st Contact Info) Description 11/01/2019 Refill Internal Medicine at [address] [address] Marguerite Riley MD [facility] [place] [address] Nicotine dependence, cigarettes, uncomplicated; Tobacco abuse counseling; Mild intermittent asthma without complication Social History [...] * Telephone Encounter - Marguerite Riley - 11/04/2019 6:03 PM EST TC to patient regarding TVUS results. OB-POLISHING MACHINE TENDER recs endometrial biopsy. Patient amenable to seeing them for this. I will ask my secretaries to help schedule. Refilling medications. Now on bupropion 150mg BID and tolerating well - script updated. Ordering nicotine inhaler to assist with smoking cessation. documented in this encounter Plan of Treatment Upcoming Encounters Date Type Department Care Team (Late st Contact Info) Description 09/05/2024 9:00 AM EDT Office Visit Internal Medicine at [place] [id number] Gema Oliveira DO [facility] [place] [address] documented as of this encounter Visit Diagnoses Diagnosis Nicotine dependence, cigarettes, uncomplicated Tobacco abuse counseling Counseling on substance use and abuse Mild intermittent asthma without complication Unspecified asthma documented in this encounter Care Teams Microsoft Systems Engineer Relationship Specialty Start Date End Date Marguerite Riley MD [facility] [place] [address] PCP - General General Internal Medicine 08/15/17 6/ documented as of this encounter
--- OUTSIDE RECORDS SUMMARY | 2024-07-12 00:31 | XMS_ITS | Encounter Summary ---
Author Organization [facility] Address [facility] [place] [address] Care Team Providers Care Clinical Administrator Name Role Phone Marguerite Riley MD Primary Care Provider [phone] [phone] Reason for Visit * Reason Onset Date Comments Medication Refill 11/01/2019 Encounter Details Date Type Department Care Team (Late st Contact Info) Description 11/01/2019 Refill Internal Medicine at [address] [address] Ragini Unger MD [facility] [place] [address] Essential hypertension Social History Tobacco Use Types [...] EDT Office Visit Internal Medicine at [address] [address] Gema Oliveira DO [facility] [place] [address] documented as of this encounter Visit Diagnoses Diagnosis Essential hypertension Unspecified essential hypertension documented in this encounter Care Teams Clinical Administrator Relationship Specialty Start Date End Date Marguerite Riley MD [facility] [place] [address] PCP - General General Internal Medicine 08/15/17/ documented as of this encounter
--- OUTSIDE RECORDS SUMMARY | 2024-07-12 00:31 | XMS_ITS | Encounter Summary ---
Author Organization [facility] Address [facility] [place] [address] Care Team Providers Care Programmer Analyst Health It Name Role Phone Marguerite Riley MD Primary Care Provider [phone] [phone] Reason for Visit * Reason Onset Date Comments Medication Refill 10/23/2018 Encounter Details Date Type Department Care Team (Late st Contact Info) Description 10/23/2018 Refill Internal Medicine at [address] [address] Marguerite Riley MD [facility] GENERAL [place] [address] Nicotine dependence, cigarettes, uncomplicated; Tobacco abuse counseling; [...] EDT Office Visit Internal Medicine at [address] [address] Gema Oliveira DO [facility] GENERAL [place] [address] documented as of this encounter Visit Diagnoses Diagnosis Nicotine dependence, cigarettes, uncomplicated Tobacco abuse counseling Counseling on substance use and abuse Mild intermittent asthma without complication Unspecified asthma documented in this encounter Care Teams Programmer Analyst Health It Relationship Specialty Start Date End Date Marguerite Riley MD [facility] GENERAL [place] [address] PCP - General General Internal Medicine 08/15/1704/22 documented as of this encounter
--- OUTSIDE RECORDS SUMMARY | 2024-07-12 00:31 | XMS_ITS | Encounter Summary ---
Author Organization [facility] [place] [address] Care Team Providers Care Scientific Recruiter Name Role Phone Marguerite Riley MD Primary Care Provider [phone] [phone] Reason for Visit * Reason Onset Date Comments Medication Refill 09/23/2019 Encounter Details Date Type Department Care Team (Late st Contact Info) Description 09/23/2019 [place] [address] Scotty Gunn APRN [facility] [place] [address] Gastroesophageal reflux disease without esophagitis Social History [...] EDT Office Visit Internal Medicine at [id number] Gema Oliveira [facility] [place] [address] documented as of this encounter Visit Diagnoses Diagnosis Gastroesophageal reflux disease without esophagitis Esophageal reflux documented in this encounter Care Teams Scientific Recruiter Relationship Specialty Start Date End Date Marguerite Riley MD [facility] [place] [address] PCP - General General Internal Medicine 08/15/1704/22 documented as of this encounter
--- OUTSIDE RECORDS SUMMARY | 2024-07-12 00:31 | XMS_ITS | Encounter Summary ---
Author Organization [facility] [place] [address] Care Team Providers Care Credit Balance Specialist Name Role Phone Marguerite Riley MD Primary Care Provider [phone] [phone] Reason for Referral * Diagnostic Test (Emergency) - Specialty Diagnoses / Procedures Referred By Contac t Referred To Contact Radiology Diagnoses Chest pain, unspecified type Procedures NM Pharmacologic Stress CT Component Marguerite Riley MD [facility] GENER[place] [address] [place] [address] Referral ID Status Reason Start Date Expiration Date Visits Requested Visits Authorized [id number] Specialty Service Requested 08/30/2018 11/28/2018 1 1 Reason for Visit * Diagnostic Test (Emergency) - Closed Specialty Diagnoses / Procedures Referred By Contac t Referred To Contact Radiology Diagnoses Chest pain, unspecified type Procedures NM Pharmacologic Stress Myocardial Perfusion Marguerite Riley MD [facility] [place] [address] [facility] [place] [address] Referral ID Status Reason Start Date Expiration Date V isits Requested Visits Authorized [id number] Closed Specialty Service Requested 08/30/2018 11/28/2018 4 4 Encounter Details Date Type Department Care Team (Latest Contact Info) Description 08/31/2018 8:35 AM EDT - 08/31/2018 8:42 AM EDT Hospital Encounter [place] [address] Froilan Crane MD [facility] [address] Chest pain, unspecified type Discharge Disposition: Home [...] Sig Dispensed Refills Start Date End Date lisinopril (PRINIVIL;ZESTRIL) 20 mg Tablet Take 1 tablet by mouth daily. 30 tablet 1 08/30/2018 06/03/2019 omeprazole (PRILOSEC) 40 mg Capsule, Delayed Release(E.C.)Indicati ons:Gastroesophageal reflux disease without esophagitis Take 1 capsule by mouth 2 times daily. 180 capsule 3 08/29/2018 09/23/2019 buPROPion (WELLBUTRIN SR OR ZYBAN) 150 mg tablet sustained-release 12 hrIndications:smoking cessation Once daily for 3 days then twice/day. Indications: Smoking Cessation 90 tablet 1 08/22/2018 05/06/2019 PROAIR HFA 90 mcg/actuation HFA Aerosol InhalerIndications:Mi ld intermittent asthma without complication INHALE 2 PUFFS EVERY 4 HOURS NEEDED FOR WHEEZING. USE WITH SPACER 25.5 g 08/03/2018 10/23/2018 ipratropium-albuterol (DUONEB) 0.5 mg-3 mg(2.5 mg base)/3 mL Solution for Nebulization Take 0.5 mg by nebulization every 4 hours as needed. 60 vial 06/20/2018 10/23/2018 varenicline (CHANTIX) 1 mg TabletIndications:Johnathan otine dependence, cigarettes, uncomplicated,Tobacco abuse counseling Take 1 tablet by mouth 2 times daily (with meals). 180 tablet 06/20/2018 10/23/2018 varenicline (CHANTIX) 0.5 mg TabletIndications:Johnathan otine dependence, cigarettes, uncomplicated,Tobacco abuse counseling Take by mouth with meals. Days 1-3: 0.5 mg ONCE daily. Days 4-7: 0.5 mg TWICE daily. Day 8 until the end of treatment: 1 mg TWICE daily. 53 tablet 09/19/2017 05/07/2019 documented as of this encounter Plan of Treatment Upcoming Encounters Date Type Department Care Team (Late st Contact Info) Description 09/05/2024 9:00 AM EDT Office Visit Internal Medicine at [address] [address] Gema Oliveira, [facility] [address] documented as of this encounter Procedures Procedure Name Priority Date/Time Associated Diagnosis Comments NM PHARMACOLOGIC STRESS CT COMPONENT STAT 08/31/2018 11:28 AM EDT Chest pain, unspecified type documented in this encounter Results * NM Pharmacologic Stress CT Component (08/31/2018 11:28 AM EDT) Anatomical Region Laterality Modality Nuclear Medicine Impressions 08/31/2018 4:25 PM EDT 1. ??No ischemia or scar. ??Left ventricular function is normal. 2. ??Aortic calcifications noted on CT. I have personally reviewed the image(s) and the residents interpretation and agree with the findings, Nehemiah Greer at 08/31/2018 4:25 PM Narrative 08/31/2018 4:25 PM EDT EXAMINATION: NM PHARMACOLOGIC STRESS MYOCARDIAL PERFUSION, NM PHARMACOLOGIC STRESS CT COMPONENT CLINICAL HISTORY: ED visit for chest pain, negative troponins, exercise stress equivocal and patient unable to exercise more than 3 minutes TECHNIQUE: During rest, 8.5 mCi of technetium-99m sestamibi was administered intravenously. Approximately 20 minutes later, SPECT images of the heart were obtained with reconstruction in the short, vertical long and horizontal long axis. The patient then received regadenoson intravenously at a dose of 0.4 mg. 20 seconds later, 25.8 mCi of technetium-99m sestamibi was administered intravenously. Images of the heart were then again obtained with SPECT reconstruction. A low-dose CT scan was acquired for the purpose of attenuation correction COMPARISON: None FINDINGS: No fixed or reversible perfusion defects are present. Functional analysis: Myocardial function: There is normal wall thickening and wall motion. Left ventricular ejection fraction: 64% (normal greater than than 50%). Incidental CT findings of aortic calcifications. Procedure Note Nehemiah Greer MD - 08/31/2018 EXAMINATION: NM PHARMACOLOGIC STRESS MYOCARDIAL PERFUSION, NMPHARMACOLOGIC STRESS CT COMPONENT CLINICAL HISTORY: ED visit for chest pain, negative troponins, exercisestress equivocal and patient unable to exercise more than 3 minutes TECHNIQUE: During rest, 8.5 mCi of technetium-99m sestamibi wasadministered intravenously. Approximately 20 minutes later, SPECT images of the heartwere obtained with reconstruction in the short, vertical long and horizontallong axis. The patient then received regadenoson intravenously at a dose of 0.4 mg.20 seconds later, 25.8 mCi of technetium-99m sestamibi was administered intravenously. Images of the heart were then again obtained with SPECT reconstruction. A low-dose CT scan was acquired for the purpose of attenuationcorrection COMPARISON: None FINDINGS: No fixed or reversible perfusion defects are present. Functional analysis: Myocardial function: There is normal wall thickening and wall motion. Left ventricular ejection fraction: 64% (normal greater than than 50%). Incidental CT findings of aortic calcifications. IMPRESSION 1. No ischemia or scar. Left ventricular function is normal. 2. Aortic calcifications noted on CT. I have personally reviewed the image(s) and the residents interpretationand agree with the findings, Nehemiah Greer at 08/31/2018 4:25 PM Froilan Crane MD [facility] [place] documented in this encounter Visit Diagnoses Diagnosis Chest pain, unspecified type documented in this encounter Care Teams Credit Balance Specialist Relationship Specialty Start Date End Date Marguerite Riley MD [facility] [address] PCP - General General Internal Medicine 08/15/17 6/ documented as of this encounter
--- OUTSIDE RECORDS SUMMARY | 2024-07-12 00:31 | XMS_ITS | Encounter Summary ---
Author Organization [facility] [place] [address] Care Team Providers Care Rail Loader Name Role Phone Marguerite Riley MD Primary Care Provider [phone] Reason for Visit * Reason Comments Annual Exam Encounter Details Date Type Department Care Team (Late st Contact Info) Description 08/22/2018 1:30 PM EDT Office Visit Internal Medicine at [address] [address] Marguerite Riley MD [facility] [place] [address] Grief reaction; Elevated blood pressure reading without diagnosis of hypertension; Encounter for screening mammogram for malignant neoplasm of breast; Morbid obesity with BMI of 40.0-44.9, adult; Nicotine dependence, cigarettes, uncomplicated; Tobacco abuse counseling; Screening for ischemic heart disease Social History Tobacco Use Types Packs/Day Years [...] Sign Reading Time Taken Comments Blood Pressure 152/98 08/22/2018 1:29 PM EDT Pulse 112 08/22/2018 1:29 PM EDT Temperature 36.9 ??C (98.4 ??F) 08/22/2018 1:29 PM ED T Respiratory Rate 22 08/22/2018 1:29 PM EDT Oxygen Saturation 99% 08/22/2018 1:29 PM EDT Inhaled Oxygen Concentration - - Weight 127.7 kg (281 lb 9.6 oz) 08/22/2018 1:29 PM EDT Height 174.5 cm (5' 8.7) 08/22/2018 1:29 PM EDT Body Mass Index 41.95 08/22/2018 1:29 PM EDT documented in this encounter Patient Instructions * Patient Instructions* Marguerite Riley - 08/22/2018 1:30 PM EDT - Start Wellbutrin 150mg once daily for 3 days, then increase to 150mc twice per day - To find a counselor: [employer] website - Have your labs drawn today. I will call with lab results and to discuss what blood pressure medication to start documented in this encounter Progress Notes * Marguerite Riley - 08/22/2018 1:30 PM EDT Subjective: Patient ID: Tracie Layton is a 47 y.o. female in today for mood. HPI Persistent mood disorder She's feeling very down lately. She's had a number of friends, relatives, and her dog recently,which created a lot of emotional turmoil. Her mother then became ill recently and was found to havea brain tumor that came from her lungs. She at home within three weeks time. While there was some positivity (her mother reuniting with her sisters, Tracie ending an unhealthy (non-abusive) relationship), she does not feel that she's grieved and has suppressed a lot of her emotions. Her mother's causes Tracie additional stress because she worries about her smoking and the possibility of cancer. She is hesitant to try medications for her mood, as she hasn't felt they've helped inthe past and the anticipation of waiting for them to work causes anxiety. She is however, willing to try the bupropion I previously prescribed for smoking cessation. Tobacco use She started Chantix and actually had great success with this. She was able to quit for some time. Her breathing belt better and she had better exercise tolerance when she wasn't smoking. She stopped the Chantix, however, and began smoking again when her mother fell ill. She is interested in trying it again. She did not start the bupropion, but would consider trying this to help treat some of her mood symptoms. Prediabetes She is worried about this. She is drinking up to 2L of water nightly due to excess thirst. Blood pressure She has been taking her blood pressure at home. It has been in the 150s. She has no chest pain withwalking. She has intermittent SOB with ambulation that is chronic and worse when she is anxious. She has stable chronic LUIS ARMANDO. Review of Systems myD-H Primary Care 08/15/2017 PROMIS 10-Health in general Poor PROMIS 10-Quality of life Fair PROMIS 10-Physical health Poor PROMIS 10-Mental health Poor PROMIS 10-Satisfaction with social activities Fair PROMIS 10-Ability to carry out social activities Poor PROMIS 10-Ability to carry out physical activities A little PROMIS 10-Bothered by emotional problems Often PROMIS 10-Rate of fatigue Moderate PROMIS 10-Rate of pain 5 PROMIS 10- Physical Health Score 32.4 PROMIS 10- Mental Health Score 31.3 REVIEW OF SYSTEMS 08/15/2017 Constitutional Weakness, Fatigue, lack of energy, Hot flashes, Drowsiness, Pain Ear / nose / throat / mouth None of the above Eyes None of the above Respiratory Shortness of breath Cardiovascular Fluttering heart beat (heart palpitations), Swelling of legs Gastrointestinal Nausea, vomiting, Heartburn, indigestion, Appetite problems, Feeling bloated Skin, hair None of the above Musculoskeletal Back pain Neurological Balance difficulty, dizziness, Headaches, Numbness, tingling Hematologic / Lymphatic None of the above Genitourinary Urinary incontinence Breast Cancer Risk (DURAN) Scores 08/15/2017 Lifetime Risk of Patient 7 Average Lifetime Risk 11.9 5-Year Risk of Patient 0.6 Average 5-Year Risk 1 Recommend Genetic Risk Assessment w/B-RST 0 (If meets USPSTF BRCA testing guideline) PHQ-9 QUESTIONNAIRE (AMB) 09/19/2017 PHQ - 9 Score (Clinic) 19 (Moderately Severe Depression) PHQ - 9 Score (Patient) - Little interest or pleasure (Clinic) Nearly every day Little interest or pleasure (Patient) - Down, depressed, hopeless (Clinic) Nearly every day Down, depressed, hopeless (Patient) - Trouble sleeping (Clinic) Nearly every day Trouble sleeping (Patient) - Tired or no energy (Clinic) Nearly every day Tired or no energy (Patient) - Poor appetite or overeating (Clinic) More than half the days Poor appetite or overeating (Patient) - Feeling like a failure (Clinic) Several Days Feeling like a failure (Patient) - Trouble concentrating (Clinic) More than half the days Trouble concentrating (Patient) - Moving or speaking slowly (Clinic) More than half the days Moving or speaking slowly (Patient) - Would be better off (Clinic) Not at all Would be better off (Patient) - How difficult are the problems (Clinic) Extremely difficult No SI, HI PHQ-9 QUESTIONNAIRE SCORE ONLY (Clinic) 01/09/2017 05/26/2017 05/30/2017 09/19/2017 PHQ - 9 Score (Clinic) 22 (Severe Depression) 14 (Moderate Depression) 16 (Moderately Severe Depression) 19 (Moderately Severe Depression) Some recent data might be hidden Objective: BP (!) 152/98 (BP Location (NBP): Left arm, Patient Position: Sitting, BP Cuff Sizes: Large Adult (32-43 cm)) Pulse (!) 112 Temp 36.9 ??C (98.4 ??F) (Oral) Resp 22 Ht 174.5 cm (5' 8.7) Wt 127.7 kg (281 lb 9.6 oz) SpO2 99% BMI 41.95 kg/m2 Patient reported measures: Pain:4 Physical Health:Poor Fall: PHQ-9 QUESTIONNAIRE SCORE ONLY (AMB) 08/15/2017 PHQ - 9 Score (Patient) 19 (Moderately Severe Depression) Some recent data might be hidden Wt Readings from Last 3 Encounters: 08/22/18 127.7 kg (281 lb 9.6 oz) 09/19/17 (!) 126.6 kg (279 lb) 08/15/17 (!) 126.1 kg (278 lb) Physical Exam General: alert, oriented, in no acute distress, very emotional with intermittent crying HEENNT: atraumatic, normocephalic, sclera non-icteric, conjunctiva pink, PEERLA, moist mucous membranes Cardiovascular: tachycardic, regular Lungs: chest symmetric, normal effort, no wheezing Extremities: trace LUIS ARMANDO MSK: no joint swelling or erythema Skin: warm, intact, no bruises, no suspicious lesions MSE: Appearance: appropriately dressed Level of alertness: awake and interactive Speech: normal rate, pitch, tone, and prosody. Volume appropriate for setting. Language: appropriate, Maldivian-speaking Behavior: no psychomotor agitation or slowing, decreased eye contact, cooperative with interview Mood: depressed Affect: variable between flat and emotional Thought Process: logical and organized Thought Content: no paranoia, delusions, hallucinations, fixations/single ideas, no suicidal or homicidal ideation Perception: no audio or visual hallucinations. Does not appear to be responding to internal stimuli. Attention/Concentration: intact to interview and discussion regarding care. Memory: immediate and long-term recall, remote and recent memory intact Fund of knowledge: appropriate for level of education Assessment and Plan: Tracie was seen today for grief reaction. Grief reaction - Will start bupropion 150mg daily and up-titrate to 150mg twice daily - Will work on finding a counselor (provided [employer] web site) - Follow-up with me in about 4 weeks Elevated blood pressure reading without diagnosis of hypertension - BMP check today - If normal, will start lisinopril - Will continue home BP monitoring Encounter for screening mammogram for malignant neoplasm of breast - Mammo Screening Cad and Russ Bilateral; Future Morbid obesity with BMI of 40.0-44.9, adult - TSH - Hemoglobin A1c Nicotine dependence, cigarettes, uncomplicated Tobacco abuse counseling - Will restart Chantix - Bupropion as above Screening for ischemic heart disease - HDL/Cholesterol Profile - LDL Cholesterol, Direct Other orders - FluLaval Quadrivalent vaccine, Preservative Free 3YRS+ * Ragini Unger MD - 08/22/2018 1:30 PM EDT The case was discussed at the time of the visit or immediately after the visit. The assessment and plan were formulated in discussion with me and I agree with them as documented. I have reviewed the history, physical exam, assessment and plan with the resident. Major issues discussed today: pt's mother and dog just so she is having a difficult time. of other family and friends as well. Ended her relationship with partner which has been a good thing. ROS + Increased nocturnal thirst. Bp elevated 152/98 - but pt quite emotional. Exam notable for obesity. Labs checked today. Will assess bmp and if normal, will start XENIA. Will also start wellbutrin and chantix for smoking cessation as well as for mood. documented in this encounter Plan of Treatment Upcoming Encounters Date Type Department Care Team (Late st Contact Info) Description 09/05/2024 9:00 AM EDT Office Visit Internal Medicine at [place] [id number] [facility] [address] documented as of this encounter Procedures Procedure Name Priority Date/Time Associated Diagnosis Comments TSH Routine 08/22/2018 2:44 PM EDT Morbid obesity with BMI of 40.0-44.9, adult LDL CHOLESTEROL, DIRECT Routine 08/22/2018 2:44 PM EDT Screening for ischemic heart disease HDL/CHOL PROFILE Routine 08/22/2018 2:44 PM EDT Screening for ischemic heart disease HEMOGLOBIN A1C Routine 08/22/2018 2:44 PM EDT Morbid obesity with BMI of 40.0-44.9, adult BASIC METABOLIC PANEL Routine 08/22/2018 2:44 PM EDT Elevated blood pressure reading without diagnosis of hypertension documented in this encounter Results * (ABNORMAL) Basic Metabolic Panel (non-fasting) (08/22/2018 2:44 PM EDT) Glucose 100 65 - 199 mg/dL [facility] Comment:Diabetes: >=200 mg/d L plus symptoms Blood Urea Nitrogen 13 8 - 18 mg/dL [facility] Creatinine 1.13 0.70 - 1.20 mg/dL [facility] Sodium 142 135 - 145 mmol/L [facility] Potassium 4.1 3.5 - 5.0 mmol/L [facility] Comment: Please note: ??Patients with WBC >100,000 may have falsely elevated Potassium levels. ??For accurate Potassium quantification in these patients send serum separator tube (gold top) for subsequent determinations. ??Contact the Clinical Chemistry Laboratory if there are any questions. Chloride 104 98 - 107 mmol/L [facility] Carbon Dioxide 27 22 - 31 mmol/L [facility] Anion Gap 11 5 - 15 mmol/L [facility] Calcium 9.9 8.5 - 10.5 mg/dL [facility] Est Glomerular Filtration Rate 58(L) >=60 mL/min/1. 73 m?? [facility] Comment: The eGFR was calculated using the CKD-EPI equation. As with all creatinine based estimates of kidney function, eGFR values calculated with the CKD-EPI equation are not accurate in patients with acute kidney failure, extremes of body mass or the acutely ill. http://[employer]/DHnkf eGFR 67 >=60 mL/min/1. 73 m?? [facility] Comment: The eGFR was calculated using the CKD-EPI equation. As with all creatinine based estimates of kidney function, eGFR values calculated with the CKD-EPI equation are not accurate in patients with acute kidney failure, extremes of body mass or the acutely ill. http://[employer]/DHnkf Blood specimen (specimen) 08/22/2018 2:44 PM EDT 08/22/2018 6:55 PM EDT Narrative Resulting Agency Comment Spec In Lab Ragini Unger MD CHEMISTRY ORDERABLES [facility] [place] [place] [address] * (ABNORMAL) Hemoglobin A1c (08/22/2018 2:44 PM EDT) Hemoglobin A1c 5.9(H) 4.3 - 5.6 % [facility] Comment: Reference Range: 4.3 - [...] Mellitus, Diabetes Care 2013; 36: Suppl. 1, S67-74 Estimated Average Glucose 123 mg/dL [facility] Comment: eAG equivalents for HbA1c [...] into estimated average glucose values. ??Diabetes Care 2008:31(8):4289-1920. Blood specimen (specimen) 08/22/2018 2:44 PM EDT 08/22/2018 6:40 PM EDT Narrative Resulting Agency Comment Spec In Lab Ragini Unger MD CHEMISTRY ORDERABLES [facility] [place] [address] * LDL Cholesterol, Direct (08/22/2018 2:44 PM EDT) LDL Cholesterol, Direct 122 mg/dL [facility] Comment: Lowest Risk: <100 mg/dL Lower Risk: 100-129 mg/dL Borderline High Risk: 130-159 mg/dL High Risk: 160-189 mg/dL Very High Risk: >dg=414 mg/dL Blood specimen (specimen) 08/22/2018 2:44 PM EDT 08/22/2018 6:55 PM EDT Narrative Resulting Agency Comment Spec In Lab Ragini Unger MD CHEMISTRY ORDERABLES [facility] [place] [address] * HDL/Cholesterol Profile (08/22/2018 2:44 PM EDT) Cholesterol, Total 184 mg/dL [facility] Comment: Lower Risk: <200 mg/dL Average Risk: 200-239 mg/dL Higher Risk: >pb=461 mg/dL HDL Cholesterol 38 mg/dL [facility] Comment: Males: ?? Higher Risk: <40 mg/dL Females: ?? HIgher Risk: <50 mg/dL Cholesterol/HDL Ratio 4.8 ratio [facility] Chol/HDL Interpretation See Note [facility] Comment: Lipid management should be guided by a patient? s ASCVD risk, goals and preferences. ACC/AHA Guidelines recommend high intensity statin if clinical ASCVD or LDL greater than or equal to 190 mg/dL. http://[employer] [email or web address].com/KYW-BIB-Qgowljdeo Measure LDL if Total Cholesterol minus HDL Cholesterol is greater than 220 mg/dL. Adults aged 40-75 with LDL 70-189 mg/dL should have their 10 year ASCVD risk estimated with the ACC/AHA ASCVD risk estimator binding http://tools.acc.org/LSLSK-Pghp-Xcneunfuf/ Statin should be discussed if risk greater than or equal to 7.5% in non-diabetics. With diabetes, moderate intensity statin is recommended if risk less than 7.5%, high intensity if risk greater than or equal to 7.5%. Annual lipid monitoring on statins is not necessary. Lifestyle modification is a critical component of ASCVD risk reduction. Blood specimen (specimen) 08/22/2018 2:44 PM EDT 08/22/2018 6:55 PM EDT Narrative Resulting Agency Comment Spec In Lab Ragini Unger MD CHEMISTRY ORDERABLES Performing Organization Address City/[facility] Co de Phone Number [facility] [place] [address] * TSH (08/22/2018 2:44 PM EDT) Thyroid Stimulating Hormone 3.23 0.27 - 4.20 mlU/ML [facility] Blood specimen (specimen) 08/22/2018 2:44 PM EDT 08/22/2018 6:55 PM EDT Narrative Resulting Agency Comment Spec In Lab Ragini Unger MD CHEMISTRY ORDERABLES Performing Organization Address City/[facility] Co de Phone Number [facility] [place] [address] documented in this encounter Visit Diagnoses Diagnosis Grief reaction Adjustment disorder with depressed mood Elevated blood pressure reading without diagnosis of hypertension Encounter for screening mammogram for malignant neoplasm of breast Other screening mammogram Morbid obesity with BMI of 40.0-44.9, adult Morbid obesity Nicotine dependence, cigarettes, uncomplicated Tobacco abuse counseling Counseling on substance use and abuse Screening for ischemic heart disease documented in this encounter Care Teams Rail Loader Relationship Specialty Start Date End Date Marguerite Riley MD [facility] [place] [address] PCP - General General Internal Medicine 08/15/1704/22 documented as of this encounter
--- OUTSIDE RECORDS SUMMARY | 2024-07-12 00:31 | XMS_ITS | Encounter Summary ---
[place] [address] Care Team Providers Care Training And Documentation Specialist Name Role Phone Marguerite Riley MD Primary Care Provider [phone] Encounter Details Date Type Department Care Team (Late st Contact Info) Description 11/11/2019 Telephone Internal Medicine at [address] [address] Shanna Bishop Social History Tobacco [...] Miscellaneous Notes * Telephone Encounter - Joya Clemens - 11/18/2019 2:03 PM EST Patient was directed to [facility]. * Telephone Encounter - Shanna Bishop - 11/11/2019 9:03 AM EST Patient has not returned our call from 11-05-19. Called today leaving 2nd message on cell phone to return our call. Can transfer her to [facility] as referral has been entered. Happy to help documented in this encounter Plan of Treatment Upcoming Encounters Date Type Department Care Team (Late st Contact Info) Description 09/05/2024 9:00 AM EDT Office Visit Internal Medicine at [address] [address] Gema Oliveira DO [facility] [place] [address] documented as of this encounter Visit Diagnoses Not on filedocumented in this encounter Care Teams Training And Documentation Specialist Relationship Specialty Start Date End Date Marguerite Riley MD [facility] [address] [address] PCP - General General Internal Medicine 08/15/1704/22 documented as of this encounter
--- OUTSIDE RECORDS SUMMARY | 2024-07-12 00:31 | XMS_ITS | Encounter Summary ---
Author Organization [facility] Address [facility] [place] [address] Care Team Providers Care Welding Machine Operator Friction Name Role Phone Marguerite Riley MD Primary Care Provider [phone] [phone] Encounter Details Date Type Department Care Team (Latest Contact Info) Description 10/31/2019 10:15 AM EST - 10/31/2019 11:59 PM [facility] Hospital Encounter [place] [address] Ragini Unger MD [facility] [place] [address] Menorrhagia with irregular cycle Discharge Disposition: Home Social History Tobacco Use [...] needed (for incontinence). 200 each 11 10/03/2019 omeprazole (PRILOSEC) 40 mg Capsule, Delayed Release(E.C.)Indicati [...] mouth daily. 180 capsule 3 06/19/2019 09/17/2020 lisinopril (PRINIVIL;ZESTRIL) 40 mg TabletIndications:Ess ential hypertension Take 1 tablet by mouth daily. 60 tablet 3 06/03/2019 11/01/2019 buPROPion (WELLBUTRIN SR OR ZYBAN) 150 mg tablet sustained-release 12 hrIndications:smoking cessation Once daily for 3 days then twice/day. Indications: Stop Smoking 90 tablet 3 05/07/2019 11/01/2019 metFORMIN (GLUCOPHAGE-XR) 500 mg Tablet Sustained Release 24 hr Take 1 tablet by mouth daily. After two weeks, take 2 tablets by mouth daily (1,000mg total dose). 180 tablet 3 05/07/2019 03/25/2020 albuterol (PROAIR HFA) 90 mcg/actuation HFA Aerosol InhalerIndications:Mi ld intermittent asthma without complication Inhale 2 puffs into the lungs every 4 hours as needed for Wheezing. Use with spacer 54 g 3 05/07/2019 11/01/2019 diclofenac (VOLTAREN) 1 % Gel Apply 2 g topically 4 times daily as needed (pain, apply to low back.). 100 g 3 12/06/2018 11/01/2019 ipratropium-albuterol (DUONEB) 0.5 mg-3 mg(2.5 mg base)/3 mL Solution for Nebulization Take 0.5 mg by nebulization every 4 hours as needed. 60 vial 10/24/2018 11/01/2019 documented as of this encounter Plan of Treatment Upcoming Encounters Date Type Department Care Team (Late st Contact Info) Description 09/05/2024 9:00 AM EDT Office Visit Internal Medicine at [address] [id number] Gema Oliveira, [facility] [place] [address] documented as of this encounter Procedures Procedure Name Priority Date/Time Associated Diagnosis Comments US TRANSVAGINAL NON OB Routine 10/31/2019 10:56 AM EST Menorrhagia with irregular cycle documented in this encounter Results * US Transvaginal Non OB (10/31/2019 10:56 AM EST) Anatomical Region Laterality Modality Ultrasound 10/31/2019 10:2 9 AM EST Impressions 10/31/2019 11:23 AM EST ?? Thickened (14 mm) ill-defined endometrium but without focal masses to suggest a polyp. The endometrial myometrial border is very indistinct and there is heterogeneity and echogenic foci within the myometrium as well as some small cysts which is suggestive of adenomyosis. No fibroids seen. Normal ovaries Thank you for letting us participate in the care of this patient. For questions regarding this report, please contact the number below. ? Lisa Avalos, Staff Physician Electronically Signed Final Report ?? 10/31/2019 11:23 am Narrative 10/31/2019 11:23 AM EST Gynecological Report ?(Signed Final 10/31/2019 11:23 am) PATIENT INFO: ID #: ? [id number] ?: ??[birth year] (48 yrs) Name: ? TRACIE HAYDEN ? Visit Date: 10/31/2019 10:29 am PERFORMED BY: Performed By: ? Edna Brown RDMS Attending: ?Lisa Avalos MD Referred By: ?RAGINI UNGER Location: ? [facility] SERVICE(S) PROVIDED: ??UTV - Transvaginal - [id number] ?[id number] INDICATIONS: ??increase duration of menses with heavy ??bleeding TECHNIQUE/SCAN QUALITY: Technique: ?Transducer ID#: 1 COMPARISON: Prior US: 02/12/15. Prior US Sono: 02/19/15. -------- HISTORY: -------- Age: ?? 48 LMP: ?? 10/01/19 ?Day Of Cycle: ?? 31 Menses: ?LMPis ?approx.Menorrhagia&Irregular ? per requisition ------- UTERUS: ------- Uterus: ? Visualized Position: ?? Anteverted Size (cm) ?L: ??7.7 ?W: ??4.6 ?H: ??4.1 ENDOMETRIUM: Endometrium: ?Indistinct Thickness(mm): ?13.62 Comment: ? Multiple cystic spaces seen within endometrium, ?largest measurin x 3 x 3 mm. ------- CERVIX: ------- Multiple nabothian cysts seen CUL-DE-SAC: No fluid is visualized. RIGHT OVARY: Status: ?? Visualized Size (cm) ?L: ??1.7 ?W: ??2.5 ?H: ??1.5 Vol (ml): ?3.2 Morphology: ?Normal appearance LEFT OVARY: Status: ?? Visualized Size (cm) ?L: ??4.5 ?W: ??3.1 ?H: ??2.6 Vol (ml): ?18.8 Morphology: ?Normal appearance Type: ?? Hemorrhagic cyst Size (cm) ?L: ??4.1 ?W: ??2.7 ?H: ??1.9 Vol (ml): ?11.0 Procedure Note Lisa Avalos MD - 10/31/2019 Gynecological Report (Signed Final 10/31/2019 11:23 am) PATIENT INFO: ID #: [id number] : [birth year] (48 yrs) Name: TRACIE HAYDEN Visit Date: 10/31/2019 10:29 am PERFORMED BY: Performed By: Edna Brown RDMS Attending: Lisa Avalos MD Referred By: RAGINI UNGER Location: [facility] SERVICE(S) PROVIDED: UTV - Transvaginal - [id number] INDICATIONS: increase duration of menses with heavy bleeding TECHNIQUE/SCAN QUALITY: Technique: Transducer ID#: 1 COMPARISON: Prior US: 02/12/15. Prior US Sono: 02/19/15. -------- HISTORY: -------- Age: 48 LMP: 10/01/19 Day Of Cycle: 31 Menses: LMPis approx.Menorrhagia&Irregular per requisition ------- UTERUS: ------- Uterus: Visualized Position: Anteverted Size (cm) L: 7.7 W: 4.6 H: 4.1 ENDOMETRIUM: Endometrium: Indistinct Thickness(mm): 13.62 Comment: Multiple cystic spaces seen within endometrium, largest measurin x 3 x 3 mm. ------- CERVIX: ------- Multiple nabothian cysts seen CUL-DE-SAC: No fluid is visualized. RIGHT OVARY: Status: Visualized Size (cm) L: 1.7 W: 2.5 H: 1.5 Vol (ml): 3.2 Morphology: Normal appearance LEFT OVARY: Status: Visualized Size (cm) L: 4.5 W: 3.1 H: 2.6 Vol (ml): 18.8 Morphology: Normal appearance Type: Hemorrhagic cyst Size (cm) L: 4.1 W: 2.7 H: 1.9 Vol (ml): 11.0 IMPRESSION Thickened (14 mm) ill-defined endometrium but without focal masses to suggest a polyp. The endometrial myometrial border is very indistinct and there is heterogeneity and echogenic foci within the myometrium as well as some small cysts which is suggestive of adenomyosis. No fibroids seen. Normal ovaries Thank you for letting us participate in the care of this patient. For questions regarding this report, please contact the number below. Lisa Avalos, Staff Physician Electronically Signed Final Report 10/31/2019 11:23 am Ragini Unger MD IMG US PELVIC ORDERA BLES documented in this encounter Visit Diagnoses Diagnosis Menorrhagia with irregular cycle Excessive or frequent menstruation documented in this encounter Care Teams Welding Machine Operator Friction Relationship Specialty Start Date End Date Marguerite Riley MD [facility] [place] [address] PCP - General General Internal Medicine 08/15/1704/22 documented as of this encounter
--- OUTSIDE RECORDS SUMMARY | 2024-07-12 00:31 | XMS_ITS | Encounter Summary ---
Author Organization [facility] Address [facility] [place] [address] Care Team Providers Care Casting And Locker Room Servicer Name Role Phone Marguerite Riley MD Primary Care Provider [phone] Reason for Visit * Reason Comments Advice Only * Consultation (Routine) - Closed Specialty Diagnoses / Procedures Referred By María Elena mcdaniel Referred To Contact Thoracic Surgery Diagnoses Smoking Rosie Fontanez MD [facility] [address] OBSTETRICS & [place] [address] [facility] Thoracic Surg [address] [place] [id number] Referral ID Status Reason Start Date Expiration Date V isits Requested Visits Authorized [id number] Closed Consult, Test & Treat 10/18/2019 10/17/2020 1 1 Encounter Details Date Type Department Care Team (Late st Contact Info) Description 10/31/2019 9:30 AM EST Office [place] [address] Trisha Nichols Cigarette nicotine dependence without complication Social History Tobacco Use Types [...] Sign Reading Time Taken Comments Blood Pressure 129/83 10/31/2019 9:28 AM EST Pulse 109 10/31/2019 9:28 AM EST Temperature 37 ??C (98.6 ??F) 10/31/2019 9:28 AM EST Respiratory Rate 18 10/31/2019 9:28 AM EST Oxygen Saturation 99% 10/31/2019 9:28 AM EST Inhaled Oxygen Concentration - - Weight - - Height - - Body Mass Index - - documented in this encounter Progress Notes * Trisha Nichols - 10/31/2019 9:30 AM EST Trisha Nichols (Community Health Worker) ? Tobacco Cessation ? 10/31/2019 10:11 AM? Signed Patient has been smoking since she was 14 (35 years). She has tried many ways to quit. Chantix caused nightmares, patch caused a rash, gum and lozenge don't work because she smokes with them and chews candy which is not recommended for these products. She reports smoking upon awakening. 10 on importance scale 1 on confidence scale. Patient will begin smoking outside and require all smokers to smoke outside of home. She blew a 30 on CO monitor, consistent with heavy smoker. She would like to try the nicotine inhaler and will call pcp for rx. We discussed her daily routine and what will need to change to remain smoke free. 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 She also plans to call me soon to update me on status of medications. .. Tobacco Smartform documented in this encounter Plan of Treatment Upcoming Encounters Date Type Department Care Team (Late st Contact Info) Description 09/05/2024 9:00 AM EDT Office Visit Internal Medicine at [address] [address] Gema Oliveira, [facility] [place] [address] Scheduled Referrals Name Type Priority Associated Diagnoses Orde r Schedule Referral to Smoking Cessation Program Outpatient Referral Routine Smoking Ordered: 10/18/2019 documented as of this encounter Visit Diagnoses Diagnosis Cigarette nicotine dependence without complication Tobacco use disorder documented in this encounter Care Teams Casting And Locker Room Servicer Relationship Specialty Start Date End Date Marguerite Riley MD [facility] [place] [address] PCP - General General Internal Medicine 08/15/1704/22 documented as of this encounter
--- OUTSIDE RECORDS SUMMARY | 2024-07-12 00:31 | XMS_ITS | Encounter Summary ---
Author Organization [facility] Address [facility] [place] [address] Care Team Providers Care Gas Check Pad Maker Name Role Phone Marguerite Riley MD Primary Care Provider [phone] [phone] Reason for Visit * Reason Onset Date Comments Medication Refill 05/06/2019 Encounter Details Date Type Department Care Team (Late st Contact Info) Description 05/06/2019 Refill Internal Medicine at [address] [address] Marguerite Riley MD [facility] [place] [address] Nicotine dependence, cigarettes, uncomplicated; Tobacco abuse counseling; [...] EDT Office Visit Internal Medicine at [address] [address] Gema Oliveira DO [facility] [place] [address] documented as of this encounter Visit Diagnoses Diagnosis Nicotine dependence, cigarettes, uncomplicated Tobacco abuse counseling Counseling on substance use and abuse Mild intermittent asthma without complication Unspecified asthma documented in this encounter Care Teams Gas Check Pad Maker Relationship Specialty Start Date End Date Marguerite Riley MD [facility] [place] [address] PCP - General General Internal Medicine 08/15/1704/22 documented as of this encounter
--- OUTSIDE RECORDS SUMMARY | 2024-07-12 00:31 | XMS_ITS | Encounter Summary ---
Author Organization [facility] [place] [address] Care Team Providers Care Documentum Consultant Name Role Phone Marguerite Riley MD Primary Care Provider [phone] [phone] Reason for Referral * Diagnostic Test (Routine) - Closed Specialty Diagnoses / Procedures Referred By María Elena mcdaniel Referred To Contact Radiology Diagnoses Unintentional weight loss Procedures CT Chest Abdomen Pelvis w Contrast (Generic) Marguerite Riley MD [facility] [place] [address] [place] [address] Referral ID Status Reason Start Date Expiration Date V isits Requested Visits Authorized [id number] Closed Specialty Service Requested 12/04/2019 03/03/2020 1 1 Reason for Visit * Reason Comments Hypertension one month followup, could not take norvasc , made her very sick Encounter Details Date Type Department Care Team (Late st Contact Info) Description 10/03/2019 9:00 AM EST Office Visit Internal Medicine at [address] [address] Marguerite Riley MD [facility] [place] [address] Morning sickness; Hypertension, essential, benign; Mixed stress and urge urinary incontinence; Unintentional weight loss Social History Tobacco Use Types Packs/Day Years [...] Sign Reading Time Taken Comments Blood Pressure 146/106 10/03/2019 8:51 AM EST Pulse 102 10/03/2019 8:51 AM EST Temperature - - Respiratory Rate - - Oxygen Saturation 100% 10/03/2019 8:51 AM EST Inhaled Oxygen Concentration - - Weight 117.4 kg (258 lb 12.8 oz) 10/03/2019 8:51 AM EST Height 176.5 cm (5' 9.49) 10/03/2019 8:51 AM ES T reported Body Mass Index 37.68 10/03/2019 8:51 AM EST documented in this encounter Progress Notes * Marguerite Riley - 10/03/2019 9:00 AM EST ESTABLISHED PATIENT VISIT I. HISTORY a. Reason(s) for Visit: Tracie Layton 48 y.o. female who presents today due to complaint(s) of: Chief Complaint Patient presents with ??? Hypertension one month followup, could not take norvasc , made her very sick b. History of Present Illness: HTN She is on lisinopril 40mg daily. She was prescribed amlodipine at her last visit. She took one doseof amlodipine and reports vomiting and diarrhea later in the afternoon. She did not try taking it again. She did not call to discuss the possible reaction or seek care. Blood pressures at home have been variable (167/114 max). Today's value is the lowest she's seen. Dysmenorrhea She has an appointment with OBGYN and her vaginal US soon. Menses still intermittently heavy. Stress/chronic pain Her duloxetine was increased after her last visit. She seems to be tolerating that well. Unintentional weight loss She has been having nausea and vomiting every monring. If she eats, she will vomit 2-3 times. She vomits less if she doesn't eat. She will bring back up the food without bile. The food looks more broken down and is not whole. No solid or liquid food impaction. No abdominal distension or pain. This does not happen with other meals. She has not had a test at home. Her last menses was beginning of August. She has had unprotected intercourse since her last menses. Smoking More than usual. She is not taking Chantix. Headaches She is having more frequent headaches than normal (usually has daily headaches, more severe 2-3 times per week). The character is the similar, though maybe some more locations. Pain is sometimes worse. She usually takes Advil migraine, which sometimes doesn't help. She used to see the headache specialist at [facility], without improvement. mathew KNUTSON (positives in bold): Constitutional - fevers, chills, weight loss, fatigue Cardiovascular - chest pain (stabbing not squeezing, comes on at rest, different than reflux), angina Respiratory - SOB, BAUMANN, wheezing Gastrointestinal - abdominal pain, nausea, vomiting, changes in bowel habits - diarrhea, blood in stool, dark tarry stools Genitourinary - abnormal discharge, urinary frequency, urgency, burning, hematuria Musculoskeletal - pain at rest or with movement, joint swelling Heme/Lymph - lymph node swelling, night sweats Integument - rashes d. PM Patient Active Problem List Diagnosis ??? Impaired fasting glucose HbA1c 5.9% started metformin 09/2018 ??? Hypertension, essential, benign Started lisinopril 2017 ??? Morbid obesity with BMI of 40.0-44.9, adult ??? Depression hx suicide attempt Past meds: Prozac, Lexapro, Effexor, Clonazepam, Becenti. None worked. Has chronic up and down [...] lumbar region ??? Esophageal reflux (GERD) On BID PPI. EGD 06/2017 showed minor inflammation without evidence of Garza's. ??? PTSD (post-traumatic stress disorder) nightmares ??? Agoraphobia ??? ADD (attention deficit disorder) (ADHD) ??? Vitamin D deficiency ??? H/O suicide attempt Overdose in 1999 ??? Erosion of vaginal mesh ??? Mixed stress and urge urinary incontinence ??? Post-traumatic headache ??? Bilateral occipital neuralgia ??? History of cervical cancer s/p LEEP??? in [place] Soc: Social History Tobacco Use ??? Smoking status: Current Every Day Smoker Packs/day: 0.25 Years: 30.00 Pack years: 7.50 Types: Cigarettes ??? Smokeless tobacco: Never Used ??? Tobacco comment: 2 or 3 a day Substance Use Topics ??? Alcohol use: Yes Comment: Occasional II. PHYSICAL EXAM: BP (!) 146/106 (BP Location (NBP): Left arm, Patient Position: Sitting, BP Cuff Sizes: Large Adult (32-43 cm)) Pulse (!) 102 Ht 176.5 cm (5' 9.49) Comment: reported Wt 117.4 kg (258 lb 12.8 oz) SpO2 100% BMI 37.68 kg/m?? Wt Readings from Last 3 Encounters: 10/03/19 117.4 kg (258 lb 12.8 oz) 06/19/19 120.5 kg (265 lb 9.6 oz) 06/03/19 120.7 kg (266 lb 3.2 oz) General: alert, oriented, in no acute distress HEENNT: atraumatic, normocephalic, sclera non-icteric, conjunctiva pink, PEERLA, EOMI, oropharynx clear without exudate, moist mucous membranes Cardiovascular: RRR, normal S1/S2, no murmurs/rubs/gallps Lungs: chest symmetric, normal effort, CTABL Abdomen: +BS, soft, non-tender, non-distended, no organomegaly Extremities: no LUIS ARMANDO POC urine negative III. ASSESSMENT/PLAN:Tracie Layton 48 y.o. female presenting for follow-up of hypertension. Unfortunately, she did not tolerate amlodipine in May and has poorly controlled blood pressure at home since then. She is amenable to trying another blood pressure agent, specifically a diuretic, which shehas not been on before. More concerning, is her ongoing weight loss and new morning naussea/vomiting. She had EGD in 2017 with irregular Z line and mild inflammatory change without metaplasia and colonoscopy in 2014 with one 5mm polyp removed. test is negative. She is not amenable to repeat EGD/colo right now due to bad experience last time with pain. She is amenable to imaging, which we will get and then reassess need for endoscopy. Given that her chest pain only happens at rest and her nuclear stress was negative last year, this is less likely to be cardiac in nature so will monitor for now. Hypertension, essential, benign - Continue lisinopril 40mg daily - Start HCTZ 12.5mg daily, then increase to 25mg daily after one week - Continue home BP monitoring - Basic Metabolic Panel (non-fasting); Future after HCTZ start - Follow-up in about 2 months Mixed stress and urge urinary incontinence - Incontinence Pad, Liner, Disp Pad; 1 each by [facility].(Non-Drug; Combo Route) route every 4 hours as needed (for incontinence). Unintentional weight loss - CT Chest Abdomen Pelvis w Contrast (Generic); Future - Reassess need for endoscopy pending imaging results Dysmenorrhea with irregular cycle - TVUS ordered - Referral to OB-TOPOGRAPHY TECHNICIAN for this and also ongoing stress urinary incontinence, as she would like a second opinion on her options Tobacco use - She will continue Wellbutrin - Not interested in restarting Chantix at this time Other orders - FluLaval Quadrivalent vaccine, Preservative Free 6MOS+ * Priya Sullivan RN - 10/03/2019 9:00 AM EST Pt tolerated injection well. Comfort measure reviewed if arm aches later tonight or tomorrow. VIS provided. [id number] test negative: Lot: [id number], Exp: 10/19/20 * Froilan Crane MD - 10/03/2019 9:00 AM EST The case was discussed at the time of the visit or immediately after the visit. The assessment and plan were formulated in discussion with me and I agree with them as documented. I have reviewed the history, physical exam, assessment and plan with the resident. Major issues discussed today: Pt here for f/u. HTN: was trial of amlodipine but had vomiting after one dose but did not retry and not willing to retrial. Is on lisinopril 40. Having unintentional weight loss. Vomiting in the morning if eats. Plan: HTN -HCTZ 25 daily Weight loss -EGD, colo -? CT abd documented in this encounter Plan of Treatment Upcoming Encounters Date Type Department Care Team (Late st Contact Info) Description 09/05/2024 9:00 AM EDT Office Visit Internal Medicine at [address] [address] Gema Oliveira, [facility] [place] [address] documented as of this encounter Procedures Procedure Name Priority Date/Time Associated Diagnosis Comments POCT URINE Routine 10/03/2019 9:33 AM EST Morning sickness documented in this encounter Results * CT [...] contact the number below. Froilan Crane MD IM CT ORDERABLES * Basic Metabolic Panel (non-fasting) (11/28/2019 10:28 AM EST) Glucose 131 65 - 199 mg/dL [facility] Comment:Diabetes: >=200 mg/d L plus symptoms Blood Urea Nitrogen 12 8 - 18 mg/dL [facility] Creatinine 0.99 0.70 - 1.20 mg/dL [facility] Sodium 139 135 - 145 mmol/L [facility] Potassium 3.9 3.5 - 5.0 mmol/L [facility] Comment: Please note: ??Patients with WBC >100,000 may have falsely elevated Potassium levels. ??For accurate Potassium quantification in these patients send serum separator tube (gold top) for subsequent determinations. ??Contact the Clinical Chemistry Laboratory if there are any questions. Chloride 102 98 - 107 mmol/L [facility] Carbon Dioxide 24 22 - 31 mmol/L [facility] Anion Gap 13 5 - 15 mmol/L [facility] Calcium 9.2 8.5 - 10.5 mg/dL [facility] Est Glomerular Filtration Rate 68 >=60 mL/min/1. 73 m?? [facility] Comment: The eGFR was calculated using the CKD-EPI equation. As with all creatinine based estimates of kidney function, eGFR values calculated with the CKD-EPI equation are not accurate in patients with acute kidney failure, extremes of body mass or the acutely ill. [email or web address] eGFR 79 >=60 mL/min/1. 73 m?? [facility] Comment: The eGFR was calculated using the CKD-EPI equation. As with all creatinine based estimates of kidney function, eGFR values calculated with the CKD-EPI equation are not accurate in patients with acute kidney failure, extremes of body mass or the acutely ill. [email or web address] Blood specimen (specimen) 11/28/2019 10:28 AM EST 11/28/2019 12:21 PM EST Narrative Resulting Agency Comment Spec In Lab Froilan Crane MD CHEMISTRY ORDERABLES [facility] [place] [address] * POCT urine (10/03/2019 9:33 AM EST) POC Urine HCG Negative Negative - Negative POC Control Internal Controls Acceptable Urine specimen (specimen) 10/03/2019 9:33 AM EST Froilan Crane MD POINT OF CARE TEST O YAMIL documented in this encounter Visit Diagnoses Diagnosis Morning sickness Mild hyperemesis gravidarum, unspecified as to episode of care Hypertension, essential, benign Essential hypertension, benign Mixed stress and urge urinary incontinence Mixed incontinence urge and stress (male)(female) Unintentional weight loss Loss of weight Unintentional weight loss Loss of weight documented in this encounter Care Teams Documentum Consultant Relationship Specialty Start Date End Date Marguerite Riley MD [facility] [place] [address] PCP - General General Internal Medicine 08/15/1704/22 documented as of this encounter
--- OUTSIDE RECORDS SUMMARY | 2024-07-12 00:31 | XMS_ITS | Encounter Summary ---
Author Organization [facility] [place] [address] Care Team Providers Care Can Intake Worker Name Role Phone Marguerite Riley MD Primary Care Provider [phone] [phone] Reason for Referral * Consultation (Routine) - Specialty Diagnoses / Procedures Referred By María Elena mcdaniel Referred To Contact Obstetrics and Gynecology Diagnoses Menorrhagia with irregular cycle Overflow stress urinary incontinence in female Marguerite Riley MD [facility] [place] [address] [facility] [address] [place] [address] Referral ID Status Reason Start Date Expiration Date Visits Requested Visits Authorized [id number] Specialty Service Requested 06/19/2019 06/18/2020 1 1 Reason for Visit * Reason Comments Follow-up back hurts since mon Encounter Details Date Type Department Care Team (Late st Contact Info) Description 06/19/2019 3:00 PM EDT Office Visit Internal Medicine at [address] [address] Marguerite Riley MD [facility] [place] [address] Menorrhagia with irregular cycle; Fatigue, unspecified type; Overflow stress urinary incontinence in female Social History Tobacco Use Types Packs/Day Years [...] Sign Reading Time Taken Comments Blood Pressure 153/94 06/19/2019 2:32 PM EDT Pulse 94 06/19/2019 2:32 PM EDT Temperature 36.9 ??C (98.4 ??F) 06/19/2019 2:32 PM ED T Respiratory Rate 22 06/19/2019 2:32 PM EDT Oxygen Saturation 99% 06/19/2019 2:32 PM EDT Inhaled Oxygen Concentration - - Weight 120.5 kg (265 lb 9.6 oz) 06/19/2019 2:32 PM EDT Height 176.5 cm (5' 9.49) 06/19/2019 2:32 PM ED T Body Mass Index 38.67 06/19/2019 2:32 PM EDT documented in this encounter Patient Instructions * Patient Instructions* Marguerite Riley - 06/19/2019 3:00 PM EDT The following resources are available to help manage anxiety: Phone-based apps: - Pratts sharon: Uses principles of cognitive behavioral therapy and mindfulness to improve mental health - Rrnovto3Bwhgt sharon: Guided breathing techniques to improve mental health - PanicRelief sharon: Free sharon that guides you through panic attacks - CBTThoughtRecordDiary sharon: Helps you document, analyze, and change negative or harmful patterns of thought - CBTi ice skating coach: For insomnia Online counseling resources: - Moodjuice.scot.nhs.uk: [facility] website designed to offer information and advice related to troublesome thoughts, feelings and actions; includes 35+ printable guides aimed at helping depression, anxiety, stress, panic and sleep problems - Gooddler: Online counseling provided by a network of licensed counselors (often significantly less expensive than in-person counseling) - Liquid5: Online counseling provided by a network of licensed counselors (often significantly less expensive than in-person counseling) documented in this encounter Progress Notes * Marguerite Riley - 06/19/2019 3:00 PM EDT ESTABLISHED PATIENT VISIT I. HISTORY a. Reason(s) for Visit: Tracie Hayden 48 y.o. female who presents today due to complaint(s) of: Chief Complaint Patient presents with ??? Follow-up back hurts since monday b. History of Present Illness: Back pain She's had bilateral mid-back pain for a few days now. It is worse with taking a deep breath. She denies urinary urgency, frequency, burning, hematuria. She has been drinking lots of water and cranberry juice the last few days because she is worried about a UTI. Her urine is clear. She has no vaginal symptoms. HTN Her lisinopril was increased last visit to 40mg daily. She is taking this without dizziness or lightheadedness. She is unsure if it's working because her Bps have been 150s/90s at home. She feels this is very much so stress related but fears complications of HTN so is interested in additional treatment. Dysmenorrhea Her periods are lasting longer and she has much heavier flow (more tampons and pads underneath thisrequired due to leakage). Her periods are irregular and always have been. She has no menopausal symptoms otherwise. Weight loss She has not made any dietary or other lifestyle changes and feels this is unintentional. No red flag symptoms. Stress This is extremely high right now. Her father recently. She is also planning her daughter's wedding. She is smoking due to stress. She is taking chantix which has helped her cut back some. c. ROS (positives in bold): Constitutional - fevers, chills, weight loss, fatigue Cardiovascular - chest pain, palpitations, angina Respiratory - SOB, BAUMANN, wheezing Gastrointestinal - abdominal pain, nausea, vomiting, changes in bowel habits, blood in stool, dark tarry stools Genitourinary - abnormal discharge, lumps, masses or nodules present, urinary frequency, urgency, burning, hematuria Musculoskeletal - pain at rest or with movement, joint swelling Heme/Lymph - lymph node swelling, night sweats Integument - rashes d. PMH Patient Active Problem List Diagnosis ??? Impaired fasting glucose HbA1c 5.9% started metformin 09/2018 ??? Hypertension, essential, benign Started lisinopril 2017 ??? Morbid obesity with BMI of 40.0-44.9, adult ??? Depression hx suicide attempt Past meds: Prozac, Lexapro, Effexor, Clonazepam, [place]. None worked. Has chronic up and down [...] History of cervical cancer s/p LEEP??? in [place] Soc: Social History Tobacco Use ??? Smoking status: Current Every Day Smoker Packs/day: 0.25 Years: 30.00 Pack years: 7.50 Types: Cigarettes ??? Smokeless tobacco: Never Used ??? Tobacco comment: 2 or 3 a day Substance Use Topics ??? Alcohol use: Yes Comment: Occasional II. PHYSICAL EXAM: BP (!) 153/94 (BP Location (NBP): Left arm, Patient Position: Sitting, BP Cuff Sizes: Adult (25-34 cm)) Pulse 94 Temp 36.9 ??C (98.4 ??F) (Oral) Resp 22 Ht 176.5 cm (5' 9.49) Wt 120.5 kg (265 lb 9.6 oz) SpO2 99% BMI 38.67 kg/m?? Wt Readings from Last 3 Encounters: 06/19/19 120.5 kg (265 lb 9.6 oz) 06/03/19 120.7 kg (266 lb 3.2 oz) 05/09/19 123.4 kg (272 lb) General: alert, oriented, in no acute distress HEENNT: atraumatic, normocephalic, sclera non-icteric, conjunctiva pink, pupils equal, EOMI Cardiovascular: RRR, normal S1/S2, no murmurs/rubs/gallps Lungs: chest symmetric, normal effort, CTABL Abdomen: +BS, soft, non-tender, non-distended, no organomegaly Extremities: no LUIS ARMANDO Skin: warm, intact, no bruises, no suspicious lesions III. ASSESSMENT/PLAN:Tracie Hayden 48 y.o. female presenting for follow-up of hypertension and mood disorder. Hypertension - Start amlodipine 5mg daily - Continue home BP checks - F/U in ~1 month Mood disorder - Hesitant to establish with a new therapist at this time - Information provided on online and sharon resources for stress management Chronic pain Fatigue - Increase duloxetine to 60mg daily - TSH check Dysmenorrhea with irregular cycle - CBC to check for anemia - TVUS ordered - Referral to [facility] for this and also ongoing stress urinary incontinence, as she would like a second opinion on her options * Ragini Unger MD - 06/19/2019 3:00 PM EDT The case was discussed at the time of the visit or immediately after the visit. The assessment and plan were formulated in discussion with me and I agree with them as documented. I have reviewed the history, physical exam, assessment and plan with the resident. Major issues discussed today: - HTN - dose of lisinopril increased to 40 mg at last visit, BP today 153/94, will add amlodipine 5mg - heavy menses - irregular cycles. No menopause symptoms. Will check ultrasound and cbc, fur clipper referral. - weight loss - 7lbs, no change in diet/exercise. Will follow for now given no other new symptoms. - chronic pain - increase duloxetine, f/up in 1-2 months. documented in this encounter Plan of Treatment Upcoming Encounters Date Type Department Care Team (Late st Contact Info) Description 09/05/2024 9:00 AM EDT Office Visit Internal Medicine at [address] [address] Gema Oliveira, [facility] [place] [address] Scheduled Referrals Name Type Priority Associated Diagnoses Orde r Schedule Referral to [facility] Outpatient Referral Routine Menorrhagia with irregular cycle Overflow stress urinary incontinence in female Ordered: 06/19/2019 documented as of this encounter Procedures Procedure Name Priority Date/Time Associated Diagnosis Comments HEMOGRAM Routine 06/19/2019 4:02 PM EDT Menorrhagia with irregular cycle DIFFERENTIAL, AUTOMATED Routine 06/19/2019 4:02 PM EDT Menorrhagia with irregular cycle CBC (WITH DIFF) Routine 06/19/2019 4:02 PM EDT Menorrhagia with irregular cycle TSH Routine 06/19/2019 4:02 PM EDT Fatigue, unspecified type documented in this encounter Results * US [...] 11:23 am) PATIENT INFO: ID #: ? [id number] ?: ??[birth year] (48 yrs) Name: ? TRACIE HAYDEN ? Visit Date: 10/31/2019 10:29 am PERFORMED BY: Performed By: ? Edna Brown RDMS Attending: ?Robbie KWAN, Lisa Vu Referred By: ?RAGINI UNGER Location: ? [place] SERVICE(S) PROVIDED: ??UTV - Transvaginal - [id number] ?[id number] INDICATIONS: ??increase duration of menses with heavy [...] 10/31/2019 11:23 am) PATIENT INFO: ID #: [id number] : [birth year] (48 yrs) Name: TRACIE HAYDEN Visit Date: 10/31/2019 10:29 am PERFORMED BY: Performed By: Edna Brown RDMS Attending: Lisa Avalos MD Referred By: RAGINI UNGER Location: [place] SERVICE(S) PROVIDED: UTV - Transvaginal - [id number] INDICATIONS: increase duration of menses with heavy [...] Report 10/31/2019 11:23 am Ragini Unger MD [facility] ORDERA BLES * Differential, Automated (06/19/2019 4:02 PM EDT) Neutrophil % 51.3 % [facility] Neutrophil Absolute 3.83 1.70 - 6.10 x10(3)/[facility] Lymph % 35.1 % [facility] Lymphocytes Abs 2.6 0.9 - 3.2 x10(3)/[facility] Monocyte % 9.6 % [facility] Monocyte Abs 0.7 0.3 - 0.9 x10(3)/[facility] Eos % 3.1 % [facility] Eosinophils Abs 0.2 0.0 - 0.4 x10(3)/[facility] Basophil % 0.4 % [facility] Baso Absolute 0.0 0.0 - 0.1 x10(3)/[facility]OR[facility] Immature Gran % 0.50 % [facility] Comment: Immature granulocytes(IG's)percentage and absolute count will include metamyelocytes, myelocytes, and promyelocytes. Blood smears from CBCs yielding IG's will be scanned manually for concordance. If this scan disagrees with the automated IG or if promyelocytes are noted, a manual differential will be performed. Immature Gran Absolute 0.04 0.00 - 0.04 x10(3)/[facility] Blood specimen (specimen) 06/19/2019 4:02 PM EDT 06/19/2019 6:58 PM EDT Narrative Resulting Agency Comment Spec In Lab Marguerite Riley MD HEMATOLOGY ORDERA BLES [facility] [place] [address] * (ABNORMAL) Hemogram (06/19/2019 4:02 PM EDT) White Blood Cell 7.5 4.0 - 9.5 x10(3)/ L [facility] Red Blood Cell 4.86 4.00 - 5.21 x10(6)/ L [facility] Hemoglobin 12.5 11.7 - 15.5 gm/dL [facility] Hematocrit 39.0 35.7 - 45.8 % [facility] Mean Cell Volume 80.2(L) 82.6 - 94.4 fL [facility] Mean Cell Hemoglobin 25.7(L) 27.1 - 32.0 pg [facility] Mean Cell Hemoglobin Concentration 32.1 31.7 - 35.0 gm/dL [facility] Platelet 227 145 - 357 x10(3)/[facility] LABORATORY RDW Standard Deviation 41.1 37.0 - 46.0 [facility] LABORATORY RDW coefficient of variation 14.0 11.5 - 14.1 % [facility] Mean Platelet Volume 11.7 7.6 - 12.9 fL [facility] NRBC% auto 0.0 % [facility] NRBC Absolute 0.000 0.000 - 0.000 x10(3)/[facility] Blood specimen (specimen) 06/19/2019 4:02 PM EDT 06/19/2019 6:58 PM EDT Narrative Resulting Agency Comment Spec In Lab Marguerite Riley MD HEMATOLOGY ORDERA BLES [facility] [place] [address] * TSH (06/19/2019 4:02 PM EDT) Thyroid Stimulating Hormone 2.25 0.27 - 4.20 mcIU/mL [facility] Blood specimen (specimen) 06/19/2019 4:02 PM EDT 06/19/2019 6:58 PM EDT Narrative Resulting Agency Comment Spec In Lab Ragini Unger MD CHEMISTRY ORDERABLES [facility] [place] [address] documented in this encounter Visit Diagnoses Diagnosis Menorrhagia with irregular cycle Excessive or frequent menstruation Fatigue, unspecified type Overflow stress urinary incontinence in female Menorrhagia with irregular cycle Excessive or frequent menstruation documented in this encounter Care Teams Can Intake Worker Relationship Specialty Start Date End Date Marguerite Riley MD [facility] [place] [address] PCP - General General Internal Medicine 08/15/1704/22 documented as of this encounter
--- OUTSIDE RECORDS SUMMARY | 2024-07-12 00:31 | XMS_ITS | Encounter Summary ---
[place] [address] Care Team Providers Care Venipuncturist Name Role Phone Marguerite Riley MD Primary Care Provider +1 -[phone] Reason for Visit * Reason Onset Date Comments Prior Authorization 09/30/2019 Encounter Details Date Type Department Care Team (Late st Contact Info) Description 09/30/2019 [place] [address] Codi Regalado CCMA Prior Authorization Social History Tobacco Use [...] encounter Miscellaneous Notes * Telephone Encounter - Codi Regalado CCMA - 09/30/2019 11:49 AM EST Medication Prior Authorization 4L Gastroenterology / [place] [address] Subscriber Insurance: [place] Medicaid Phone: Fax: Physician: Scotty Gunn NPI: Return Pharmacy: [facility] Phone: Fax: Medication Requested: Omeprazole Strength:40mg Frequency: Take 1 capsule by mouth twice daily Disp.: 180 Refills: 0 Currently taking: yes Diagnosis for this medication: GERD ICD-10 code: (K21.9) Prior medications trialed in this patient: Omeprazole 40mg once daily, Pantoprazole, Esomeprazole Medication: Outcome/Adverse Reactions:Treatment Failure Decision: Denied Tracking number/Case number/Reference number:[id number] Medication has been denied, after reading through some chart notes I saw that patient is going to go through her PCP for this medication. documented in this encounter Plan of Treatment Upcoming Encounters Date Type Department Care Team (Late st Contact Info) Description 09/05/2024 9:00 AM EDT Office Visit Internal Medicine at [address] [address] Gema Oliveira DO [facility] [address] [place] [address] documented as of this encounter Visit Diagnoses Not on filedocumented in this encounter Care Teams Venipuncturist Relationship Specialty Start Date End Date Marguerite Riley MD [facility] [address] [address] PCP - General General Internal Medicine 08/15/17 6/ documented as of this encounter
--- OUTSIDE RECORDS SUMMARY | 2024-07-12 00:31 | XMS_ITS | Encounter Summary ---
Author Organization [facility] [place] [address] Care Team Providers Care Bottle Washer Machine Name Role Phone Marguerite iRley MD Primary Care Provider +1 -[phone] Reason for Visit * Diagnostic Test (Emergency) - Closed Specialty Diagnoses / Procedures Referred By Contac t Referred To Contact Radiology Diagnoses Chest pain, unspecified type Procedures NM Pharmacologic Stress Myocardial Perfusion Marguerite Riley MD [facility] [place] [address] [place] [address] Referral ID Status Reason Start Date Expiration Date V isits Requested Visits Authorized [id number] Closed Specialty Service Requested 08/30/2018 11/28/2018 4 4 Encounter Details Date Type Department Care Team (Latest Contact Info) Description 08/31/2018 8:34 AM EDT Hospital Encounter [place] [address] Froilan Crane MD [facility] [place] [address] Discharge Disposition: Home Social History [...] AM EDT Office [place] [address] Gema Oliveira DO [facility] [place] [address] documented as of this encounter Procedures Procedure Name Priority Date/Time Associated Diagnosis Comments NM PHARMACOLOGIC STRESS AND REST MYOCARDIAL PERFUSION STAT 08/31/2018 10:43 AM EDT Chest pain, unspecified type documented in this encounter Visit Diagnoses Not on filedocumented in this encounter Administered Medications Inactive Administered Medications - up to 3 most recent administrations Medication Order MAR Action Action Date Dose Rate Site fludeoxyglucose (F-18) FDG injection 25.8 mCi 25.8 mCi, Intravenous, ONCE PRN, 1 dose, Starting on Mon08/31/18 at 1044, Until Mon08/31/18 at 1040, Per Protocol, Routine Given 08/31/2018 10:40 AM EDT 25.8 mCi regadenoson (LEXISCAN) injection 0.4 mg 0.4 mg, Intravenous, ONCE, 1 dose, On Mon08/31/18 at 1100, Routine Given 08/31/2018 10:40 AM EDT 0.4 mg documented in this encounter Care Teams Bottle Washer Machine Relationship Specialty Start Date End Date Marguerite Riley MD [facility] [place] [address] PCP - General General Internal Medicine 08/15/1704/22 documented as of this encounter
--- OUTSIDE RECORDS SUMMARY | 2024-07-12 00:31 | XMS_ITS | Encounter Summary ---
Author Organization [facility] [place] [address] Care Team Providers Care Registered Mail Clerk Name Role Phone Marguerite Riley MD Primary Care Provider +1 -[phone] Encounter Details Date Type Department Care Team (Late st Contact Info) Description 11/05/2019 Telephone Internal Medicine at [address] [address] Surendra Rios Social History Tobacco Use Types [...] * Telephone Encounter - Surendra Rios - 11/05/2019 8:37 AM EST Called pt to schedule endometrial biopsy in [facility], per Dr. Riley. Mailbox full, LM on home phone. documented in this encounter Plan of Treatment Upcoming Encounters Date Type Department Care Team (Late st Contact Info) Description 09/05/2024 9:00 AM EDT Office Visit Internal Medicine at [address] [id number] Gema Oliveira, [facility] [address] documented as of this encounter Visit Diagnoses Not on filedocumented in this encounter Care Teams Registered Mail Clerk Relationship Specialty Start Date End Date Marguerite Riley MD [facility] [address] PCP - General General Internal Medicine 08/15/1704/22 documented as of this encounter
--- OUTSIDE RECORDS SUMMARY | 2024-07-12 00:31 | XMS_ITS | Encounter Summary ---
[place] [address] Care Team Providers Care Animal Husbandry Professor Name Role Phone Marguerite Riley MD Primary Care Provider [phone] -[phone] Encounter Details Date Type Department Care Team (Late st Contact Info) Description 08/29/2018 [place] [id number] Yovani Glaser RN Gastroesophageal reflux disease without esophagitis Social History [...] encounter Miscellaneous Notes * Telephone Encounter - Yovani Glaser RN - 08/29/2018 11:37 AM EDT Received refill request via fax for Omeprazole 40mg twice daily. Lela last seen in the office on 06/01/2017. Forwarding to Scotty Gunn APRN for review. documented in this encounter Plan of Treatment Upcoming Encounters Date Type Department Care Team (Late st Contact Info) Description 09/05/2024 9:00 AM EDT Office Visit Internal Medicine at [address] [address] Gema Oliveira, [facility] [place] [address] documented as of this encounter Visit Diagnoses Diagnosis Gastroesophageal reflux disease without esophagitis Esophageal reflux documented in this encounter Care Teams Animal Husbandry Professor Relationship Specialty Start Date End Date Marguerite Riley MD [facility] [place] [address] PCP - General General Internal Medicine 08/15/1704/22 documented as of this encounter
--- OUTSIDE RECORDS SUMMARY | 2024-07-12 00:31 | XMS_ITS | Encounter Summary ---
[place] [address] Care Team Providers Care Folder Inspector Name Role Phone Marguerite Riley MD Primary Care Provider +1 -[phone] Encounter Details Date Type Department Care Team (Late st Contact Info) Description 10/31/2019 Notes [place] [id number] Trisha Nichols Social History Tobacco Use Types [...] as of this encounter Progress Notes * Trisha Nichols - 10/31/2019 10:11 AM EST Patient has been smoking since she was [...] to update me on status of medications. documented in this encounter Plan of Treatment Upcoming Encounters Date Type Department Care Team (Late st Contact Info) Description 09/05/2024 9:00 AM EDT Office Visit Internal Medicine at [address] [address] Gema Oliveira DO [facility] [address] [address] documented as of this encounter Visit Diagnoses Not on filedocumented in this encounter Care Teams Folder Inspector Relationship Specialty Start Date End Date Marguerite Riley MD [facility] [place] [address] PCP - General General Internal Medicine 08/15/17 6/ documented as of this encounter
--- OUTSIDE RECORDS SUMMARY | 2024-07-12 00:31 | XMS_ITS | Encounter Summary ---
Author Organization [facility] Address [facility] [place] [address] Care Team Providers Care Wire Wheeler Name Role Phone Marguerite Riley MD Primary Care Provider [phone] Reason for Referral * Consultation (Routine) - Closed Specialty Diagnoses / Procedures Referred By Contac t Referred To Contact Thoracic Surgery Diagnoses Rosie Fuentes MD [facility] [address] OBSTETRICS [place] [address] [facility] [address] [place] [id number] Referral ID Status Reason Start Date Expiration Date V isits Requested Visits Authorized [id number] Closed Consult, Test & Treat 10/18/2019 10/17/2020 1 1 Reason for Visit * Reason Comments Follow-up * Consultation (Routine) - Specialty Diagnoses / Procedures Referred By Contac t Referred To Contact Obstetrics and Gynecology Diagnoses Menorrhagia with irregular cycle Overflow stress urinary incontinence in female Marguerite Riley MD [facility] [place] [address] [facility] [employer] [address] [place] [address] Referral ID Status Reason Start Date Expiration Date Visits Requested Visits Authorized [id number] Specialty Service Requested 06/19/2019 06/18/2020 1 1 Encounter Details Date Type Department Care Team (Late st Contact Info) Description 10/18/2019 1:00 PM EST Office Visit Obstetrics and Gynecology at [facility] [place] [id number] Rommel Ritchie MD [facility] [place] [address] Mixed stress and urge urinary incontinence (Primary Dx); Class 2 obesity with body mass index (BMI) of 37.0 to 37.9 in adult, unspecified obesity type, unspecified whether serious comorbidity present; Smoking; Chronic obstructive pulmonary disease, unspecified COPD type; Urethral sphincter deficiency, intrinsic (ISD); Vulvar dermatitis Social History Tobacco Use Types Packs/Day Years [...] Sign Reading Time Taken Comments Blood Pressure 136/79 10/18/2019 12:43 PM EST Pulse 100 10/18/2019 12:43 PM EST Temperature 37.1 ??C (98.8 ??F) 10/18/2019 12:[address] Respiratory Rate 16 10/18/2019 12:43 PM EST Oxygen Saturation 100% 10/18/2019 12:43 PM EST Inhaled Oxygen Concentration - - Weight 117 kg (258 lb) 10/18/2019 12:43 PM EST Height 176.5 cm (5' 9.5) 10/18/2019 12:43 PM ES T Body Mass Index 37.55 10/18/2019 12:43 PM EST documented in this encounter Progress Notes * Rommel Ritchie MD - 10/18/2019 1:00 PM EST Female Pelvic Medicine and Reconstructive Surgery @ [facility] Follow-up note Patient name: Tracie Layton Patient Active Problem List Diagnosis Code ??? [...] Z91.5 ??? Obstructive lung disease (generalized) J44.9 SUBJECTIVE: Tracie Layton comes in today for worsening of mixed UI. Her pelvic surgery hx is signficant for TO sling 05/2016 - this helped for several months. She was found to have a full width exposure of the mesh and underwent mesh excision in 05/2017. After that hersymptoms worsened and she underwent UDS (see below): She now reports symptoms are much worse. She experiences UI with both ABILIO and UUI. Frequency q30-60 mins. ABILIO multiple times daily, can be medium-large leaks with cough, even right after she voids.She has a chronic cough which makes it worse. UUI a couple times a day, usually in morning. Has tried PT in the past before the sling. Has not tried OAB meds. Takes a diuretic (for HTN) in the morning now - has to stay closed to home due to frequency. Nocturia x3. Denies hematuria. Fluid intake = x1 coffee in morning, otherwise x6 24 oz water bottles per day. Alcohol x1-2 drinks q6 months. Rarely has x6 drinks at one time. Smokes 1/2 ppd. Wants to quit but has a lot of stress in life right now (lost both mother and father within a year last year). Is interested in referral tosmoke cessation. Takes Metformin. BS well controlled. Exercise tolerance limited by hip pain (OA). Walks dog a few times a day. Has significant agoraphobia - took 4 hours to get ready to come here today. Denies vaginal bulge. Has daily normal BMs, no FI. Has had x1 colonoscopy - very difficult and painful. Is not currently sexually active. Final Impression from Dr. Richards's UDS 11/2017: ?? Urinary incontinence, stress predominant symptoms. Leak point pressures > 100. Prior mid-urethral sling with complication of erosion. ?? Morbid obesity, likely playing a factor in her incontinence and increases risks for surgical interventions. Recommendations: ?? We reviewed options ranging from weight loss, bariatric surgery, trial of a vaginal insert such as a Poise Impressa or pessary, pelvic floor exercises. We also reviewed surgical options. Based on her leak point pressures, she would not be eligible [...] would need to learn clean intermittent self-catheterization. ?? She wants to consider her options further and will call if she wants to pursue any of the above interventions. ROS: Review of all other systems negative except for those mentioned above or indicated below: System Symptom Presence Constitutional Weight Loss yes - intentional 20 lbs over the last year Weight gain Eyes History of glaucoma ENT/Mouth Mouth sores/Dry mouth Cardiovascular Chest pain Leg swelling Respiratory Wheezing SOB x GI Nausea/vomiting Abdominal pain Skin/Breast Breast masses Rash/ulcer Musculoskeletal Muscle weakness Trouble Walking X - hip pain Neurological Dizziness/falling Numbness Psychiatric Depression x Anxiety x Endocrine Abnormal thirst Hot flashes Hematologic Frequent bruising History of blood transfusions no Blood clots (DVT / PE) no Prior problems w/ anesthesia no Past Medical History: Diagnosis Date ??? Agoraphobia ??? Alcohol abuse ??? Depression hx suicide attempt ??? H/O suicide attempt 10/29/2014 Overdose in 1999 ??? History of cervical cancer 2001 s/p LEEP??? in [place] ??? Post-traumatic headache 05/31/2014 fell out of a hammock ??? S/P tubal ligation 1992 Past Surgical History: Procedure Laterality Date ??? CERVIX SURGERY LEEP ??? SECTION ??? PRO COLONOSCOPY, REMV LESN, SNARE N/A 06/11/2015 COLONOSCOPY, POLYPECTOMY, REMOVAL LESION BY SNARE performed by Larry Ryan MD at [facility] ENDOSCOPY ??? PRO REMV/REVS SLING FOR STRES INCONTINENCE N/A 06/06/2017 SLING, REVISEOR REMOVE, REPLACE, VAGINALAPPROACH, SYNTHETIC\FASCIA (WRVU 11.15) performed by Frankie Richards MD at [facility] OSC ??? PRO SLING OPER STRES INCONTINENCE N/A 06/08/2016 URETHRAL SUSPENSION, SLING\FASCIA OR SYNTHETIC performed by Frankie Richards MD at [facility] MAIN OR ??? PRO UPPER GI ENDOSCOPY, BIOPSY 01/08/2014 EGD WITH BIOPSY performed by Ilya Whitney MD at [facility] ENDOSCOPY ??? PRO UPPER GI ENDOSCOPY, BIOPSY N/A 06/21/2017 UPPER GASTROINTESTINAL ENDOSCOPY,WITH BIOPSY SINGLE OR MULTIPLE (WRVU 2.49) performed by Rickie Pineda MD at [facility] ENDOSCOPY ??? PRO UPPER GI ENDOSCOPY, DIAGNOSTIC N/A 06/21/2017 EGD, UPPER GI ENDOSCOPY performed by Rickie Pineda MD at [facility] ENDOSCOPY OBJECTIVE: Blood pressure 136/79, pulse 100, temperature 37.1 ??C (98.8 ??F), temperature source Temporal, resp. rate 16, height 176.5 cm (5' 9.5), weight 117 kg (258 lb), last menstrual period 10/06/2019, SpO2 100 %. Gen: well-appearing, Psych: has difficulty with eye contact, otherwise normal affect CV: RRR. nml s1/s2 Pulm: CTAB, no crackles/wheezes Back: no CVA tenderness Abdom: well-healed midline and pfannenstiel incisions, soft, NT/ND Pelvic: Normal external genitalia, including urethral meatus. Erythematous patch bilateral extending to medial thighs +empty FIELD SUPPORT SPECIALIST Vagina: Normal appearing, no discharge present, 3/5 levator at rest, 3/5 with squeeze - no change in tone. No levator tenderness Cervix: Normal appearing without lesions Bimanual: Uterus is AV, small, midline, mobile; no appreciable adnexal masses or tenderness. Rectal deferred. Pelvic Organ Prolapse Quantification (POP-Q): Aa -2 Ba -2 C -7 Gh Rest strain 2.5 3.5 PB Rest strain 2.5 2.5 TVL 10 Ap -1 Bp -1 D -8 ASSESSMENT: Tracie Layton is a 48 y.o. woman with: ?? Mixed urinary incontinence, predominantly stress and ISD ?? H/o TOT ?? Vulvar dermatitis, lichen simplex chronicus ?? Smoker/unspecified COPD ?? Obesity PLAN: ??? Smoking: recommended trying to quit and referral to smoking cessation placed. ??? Vulvar dermatitis: handout given for vulvar care, recommend barrier cream, vaseline based. Also, change pads frequently For her overactive bladder: We discussed conservative treatments for overactive bladder include dietary changes and the avoidance of bladder irritants. We dicussed that the 4 most common bladder irritants are: 1) caffeine 2) artificial sweeteners 3) carbonation 4) alcohol Bladder irritants should be avoided to avoid urinary urgency/urgency urinary incontinence. We further discussed other conservative treatment options including weight loss, timed voids, and urge suppression strategies. We also discussed pelvic floor muscles exercises (Kegel exercises). Written information was given. If treatment goals are not met with lifestyle and behavioral changes, medications may be considered. For her stress urinary incontinence We discussed the options of expectant management, pelvic floor muscle exercises, pelvic floor physical therapy, and surgery for treatment of stress urinary incontinence. Due to her agoraphobia, she is not able to go to physical therapy to strengthen her pelvic floor. Since she has already had a mesh TOT with erosion and she is a current smoker, DM, I would not recommend another mesh product. We also discussed the use of a her own tissue for another sling vs Fonseca. We also discussed autologous fascial slings involving a strip of fascia being harvested from either her abdominal wall or her lateral thigh. I informed her there is a roughly 50% chance of needing to do clean intermittent self-catheterization for 1-2 weeks post-op or until she can empty to completion. We also discussed the risk of urge and urge incontinence which usually improves with time or medication. We discussed that a minimally invasive fascia stephanie harvesting technique is associated withminimal donor site morbidity and satisfactory preservation of function. ??ngluba et al. Knee Surgery, Sport Traumatol Arthrosc. 2019;27(1):245-50. Based on the patient preferences, she would like to pursue the fascia stephanie mid- urethral sling. We discussed that she would need to learn how to self-cath and would like her to stop smoking approximately 1 month or more prior to surgery. She will message when she has accomplished this and then we will teach CIC at the next meeting, which will be the pre-operative visit. This patient was seen and evaluated with Dr. Ritchie UroGyn attending physician, with whom the plan was formulated. Rosie Fontanez MD PGY7 STAFF NOTE Patient was seen in conjunction with Dr. Fontanez, a Fellow in Female Pelvic Medicine and Reconstructive Pelvic Surgery. We have coauthored this note. I was present for the exam, and provided the medical decision making. Rommel Ritchie MD Division of Female Pelvic Medicine and Reconstructive Pelvic Surgery I spent 60 minutes total with the patient, with 35 minutes of the time spent [id number] in discussing her diagnosis and reviewing options for treatment. Rommel Ritchie MD Division of Female Pelvic Medicine & Reconstructive Surgery documented in this encounter Plan of Treatment Upcoming Encounters Date Type Department Care Team (Late st Contact Info) Description 09/05/2024 9:00 AM EDT Office Visit Internal Medicine at [address] [address] Gema Oliveira, [facility] [place] [address] Scheduled Referrals Name Type Priority Associated Diagnoses Orde r Schedule Referral to Smoking Cessation Program Outpatient Referral Routine Smoking Ordered: 10/18/2019 documented as of this encounter Procedures Procedure Name Priority Date/Time Associated Diagnosis Comments BLADDER SCANNER Routine 10/18/2019 Mixed stress and urge urinary incontinence POCT URINE DIPSTICK Routine 10/18/2019 Mixed stress and urge urinary incontinence documented in this encounter Results * Bladder Scanner (10/18/2019) Bladder Scan (mL) 0 mL 10/18/2019 Rommel Ritchie MD URO PROC W/O RFL ORD ERABLES * POCT urine dipstick (10/18/2019) POC Sp Shelton 1.020 1.002 - 1.030 POC pH, UA 5 5.0 - 8.5 POC Leuk, UA Neg Negative - Negative POC Nitrite, UA Neg Negative - Negative POC Protein, UA Neg Negative - Negative mg/dL POC Glucose, UA Neg Normal - Normal mg/dL POC Ketone, UA Neg Negative - Negative POC Urobil, UA Neg 0.2 - 1.0 mg/dL POC Bili, UA Neg Negative - Negative POC Blood, UA Neg Negative - Negative niall/uL 10/18/2019 Rommel Ritchie MD POINT OF CARE TEST O RDERABLES documented in this encounter Visit Diagnoses Diagnosis Mixed stress and urge urinary incontinence- Primary Mixed incontinence urge and stress (male)(female) Class 2 obesity with body mass index (BMI) of 37.0 to 37.9 in adult, unspecified obesity type, unspecified whether serious comorbidity present Smoking Tobacco use disorder Chronic obstructive pulmonary disease, unspecified COPD type Urethral sphincter deficiency, intrinsic (ISD) Intrinsic (urethral) sphincter deficiency (ISD) Vulvar dermatitis Other inflammatory disease of cervix, vagina and vulva documented in this encounter Care Teams Wire Wheeler Relationship Specialty Start Date End Date Marguerite Riley MD [facility] [place] [address] PCP - General General Internal Medicine 08/15/1704/22 0/20 documented as of this encounter
--- OUTSIDE RECORDS SUMMARY | 2024-07-12 00:31 | XMS_ITS | Encounter Summary ---
Author Organization [facility] [place] [address] Care Team Providers Care Silver Miner Blasting Name Role Phone Marguerite Riley MD Primary Care Provider [phone] Encounter Details Date Type Department Care Team (Late st Contact Info) Description 06/20/2019 Orders Only Internal Medicine at [address] [address] Marguerite Riley MD [facility] [address] Microcytosis Social History Tobacco Use Types Packs/Day Years [...] EDT Office Visit Internal Medicine at [address] [id number] Gema Oliveira DO [facility] [place] [address] documented as of this encounter Results * (ABNORMAL) Ferritin (11/28/2019 10:28 AM EST) Ferritin 11(L) 15 - 150 ng/mL [facility] Comment: Pediatric reference ranges not verified at [facility] interpret with caution. Reference ranges for females greater than 50 years of age approach values for men, i.e., 30-400 ng/mL. Blood specimen (specimen) 11/28/2019 10:28 AM EST 11/28/2019 12:21 PM EST Narrative Resulting Agency Comment Spec In Lab Ragini Unger MD CHEMISTRY ORDERABLES Performing Organization Address City/[facility]/ZIP Co de Phone Number [facility] [place] [address] * (ABNORMAL) Iron and TIBC (11/28/2019 10:28 AM EST) Iron 40 30 - 150 mcg/dL [facility] TIBC 339 250 - 450 mcg/dL [facility] Iron Saturation 12(L) 20 - 50 % [facility] Blood specimen (specimen) 11/28/2019 10:28 AM EST 11/28/2019 12:21 PM EST Narrative Resulting Agency Comment Spec In Lab Ragini Unger MD CHEMISTRY ORDERABLES Performing Organization Address City/[facility]/ZIP Co de Phone Number [facility] [place] [address] documented in this encounter Visit Diagnoses Diagnosis Microcytosis Other abnormality of red blood cells documented in this encounter Care Teams Silver Miner Blasting Relationship Specialty Start Date End Date Marguerite Riley MD [facility] [place] [address] PCP - General General Internal Medicine 08/15/1704/22 documented as of this encounter
--- OUTSIDE RECORDS SUMMARY | 2024-07-12 00:31 | XMS_ITS | Encounter Summary ---
Author Organization [facility] [place] [address] Care Team Providers Care Electronic Assembly Name Role Phone Marguerite Riley MD Primary Care Provider [phone] Reason for Referral * Diagnostic Test (Emergency) - Closed Specialty Diagnoses / Procedures Referred By Contac t Referred To Contact Radiology Diagnoses Chest pain, unspecified type Procedures NM Pharmacologic Stress Myocardial Perfusion Marguerite Riley MD [facility] [place] [address] [place] [address] Referral ID Status Reason Start Date Expiration Date V isits Requested Visits Authorized [id number] Closed Specialty Service Requested 08/30/2018 11/28/2018 4 4 * Diagnostic Test (Emergency) - Specialty Diagnoses / Procedures Referred By Contac t Referred To Contact Radiology Diagnoses Chest pain, unspecified type Procedures NM Pharmacologic Stress CT Component Marguerite Riley MD [facility] [address] [employer] [place] [place] [address] Referral ID Status Reason Start Date Expiration Date Visits Requested Visits Authorized [id number] Specialty Service Requested 08/30/2018 11/28/2018 1 1 Reason for Visit * Reason Comments Ekg Heat pains Encounter Details Date Type Department Care Team (Late st Contact Info) Description 08/30/2018 2:30 PM EDT Office Visit Internal Medicine at [address] [address] Marguerite Riley MD [facility] [address] Chest pain, unspecified type; Hypertension, essential, benign Social History Tobacco Use [...] Sign Reading Time Taken Comments Blood Pressure 127/74 08/30/2018 2:25 PM EDT Pulse 105 08/30/2018 2:25 PM EDT Temperature 36.9 ??C (98.4 ??F) 08/30/2018 2:25 PM ED T Respiratory Rate - - Oxygen Saturation 99% 08/30/2018 2:25 PM EDT Inhaled Oxygen Concentration - - Weight 127.5 kg (281 lb) 08/30/2018 2:25 PM EDT Height 176.5 cm (5' 9.5) 08/30/2018 2:25 PM EDT Body Mass Index 40.9 08/30/2018 2:25 PM EDT documented in this encounter Patient Instructions * Patient Instructions* Marguerite Riley - 08/30/2018 2:30 PM EDT - Increase lisinopril to 20mg daily - Add baby aspirin 81mg daily - We will schedule a nuclear stress test - Pending timing of stress test, we may start a beta baudilio to help decrease heart rate and how much work the heart does documented in this encounter Progress Notes * Froilan Crane MD - 08/30/2018 2:30 PM EDT The case was discussed at the time of the visit or immediately after the visit. The assessment and plan were formulated in discussion with me and I agree with them as documented. I have reviewed the history, physical exam, assessment and plan with the resident. Major issues discussed today: Here for f/u ED visit for chest pain. Has EKG stress that was read as negative. Prior to stress test EKG showed some inferior lateral depressions that seemed to be dynamic. Some mild SOB and is having some chest pain that comes on with activity and sometimes at rest. Did start lisinopril. BP well controlled at this visit but higher home Plan: Chest pain -given high risk I feel need imaging stress given ongoing sxs and EKGs that showed dynamic changes -increase lisinopril to 20 for better double product -81 mg daily -consider BB if can't get stress within a week * Marguerite Riley - 08/30/2018 2:30 PM EDT ESTABLISHED PATIENT VISIT I. HISTORY a. Reason(s) for Visit: Tracie Layton 47 y.o. female who presents today due to complaint(s) of: Chief Complaint Patient presents with ??? Ekg Heat pains b. History of Present Illness: She had an emergency department visit on 08/23/2018 at [facility] for chest pain (see scan doc for full report). She had an EKG that showed ST depressions (~1mm) in V2 - V4 which resolved on later EKG. There were no other ST, T wave or Q wave changes. Troponin was negative x3. She had an exercise stress test but was only able to exercise for 3 minutes and reaches 93% predicted maximal heart rate; EKGs reportedly negative for ischemia. Since her ED visit, she has been feeling very fatigued, sleeping a lot. Her mood continues to be very low. She is still having intermittent chest pain without clear association with exercise or endurance. It does occasionally come on at rest. The pain is in the center of the chest and occasionally radiates to the left shoulder and jaw. The jaw pain is not worse with chewing. She does occasionallyhave left arm pain independent of the chest pain, but the occasionally coincide together. She is maybe a little more short of breath than usual but denies orthopnea or PND. Her LUIS ARMANDO is stable. She denies diaphoresis. She started lisinopril /. Her BP trends at home ~140/82 average (highest 177/115). She's had no dizziness, lightheadedness or other symptoms after starting this. She did start Wellbutrin as well. She hasn't noticed any changes or side effects with this. She is not feeling more anxious. She restarted Chantix as well and is down to 1/2 ppd (from 1 ppd). She hasnot yet found a therapist. mathew KNUTSON (positives in bold): Constitutional - fevers, chills, body aches (stable), weight loss or gain, fatigue Cardiovascular - chest pain, palpitations/racing, angina Respiratory - SOB (at rest can happen), BAUMANN (maybe worse), wheeze, cough, sputum production HEENT - diffculty swallowing, hearing, nasal congestion or postnasal drip Gastrointestinal - abdominal pain, nausea, vomiting, GERD Neurological - numbness, tingling, loss of sensation, weakness or function of limbs, headaches Psychiatric - sadness, depression, anxiety, anhedonia, suicidal ideation Integument - lesions, lumps or nodules noted, rashes d. PMH Patient Active Problem List Diagnosis ??? Hypertension, essential, benign ??? Restless legs syndrome (RLS) ??? GERD (gastroesophageal reflux disease) ??? Osteoarthritis of spine with radiculopathy, lumbar region ??? Erosion of vaginal mesh ??? Postoperative examination ??? Mixed stress and urge urinary incontinence ??? Morbid obesity with BMI of 40.0-44.9, adult ??? Headache ??? Depression hx suicide attempt Past meds: Prozac, Lexapro, Effexor, Clonazepam, [place]. None worked. Has chronic up and down daily. ??? Vagina bleeding ??? Abdominal pain Bilateral and R CV tenderness x 2 weeks Permanent Worse with lying flat or sitting too long Eating produces nausea, but doesn't influence the pain ??? Hematuria, unspecified ??? Restless leg syndrome ??? Esophageal reflux (GERD) ??? Tobacco abuse ??? Asthma ??? PTSD (post-traumatic stress disorder) nightmares ??? Agoraphobia ??? ADD (attention deficit disorder) (ADHD) ??? Vitamin D deficiency ??? Incontinence of urine ??? Back pain ??? Trochanteric bursitis of both hips ??? Persistent mood disorder ??? Post-traumatic headache ??? Bilateral occipital neuralgia ??? Post concussive syndrome 05/31/2014 Soc: Social History Substance Use Topics ??? Smoking status: Current Every Day Smoker Packs/day: 0.50 Years: 30.00 Types: Cigarettes ??? Smokeless tobacco: Never Used ??? Alcohol use Yes Comment: Occasional II. PHYSICAL EXAM: BP 127/74 Pulse (!) 105 Temp 36.9 ??C (98.4 ??F) (Oral) Ht 176.5 cm (5' 9.5) Wt 127.5 kg (281 lb) LMP 08/14/2018 SpO2 99% BMI 40.9 kg/m2 General: alert, oriented, in no acute distress but appears mildly anxious and is tearful at times HEENNT: atraumatic, normocephalic, sclera non-icteric, conjunctiva pink, PEERLA, EOMI, neck supple without LAD, oropharynx clear without exudate, no JVP appreciated Cardiovascular: tachycardic but regular, normal S1/S2, no murmurs/rubs/gallps, PT pulses 2+ and symmetric Lungs: chest symmetric, normal effort, CTABL Abdomen: obese, +BS, soft, non-tender, non-distended, no organomegaly Extremities: trace non-pitting LUIS ARMANDO to ankles MSK: no joint swelling Skin: warm, intact, no bruises, no suspicious lesions Psychologic: Appearance: dressed appropriately Level of alertness: awake and interactive Speech: normal rate, pitch, tone, and prosody. Volume appropriate for setting. Language: appropriate, Latvian-speaking Behavior: no psychomotor agitation or slowing, some decreased eye contact, cooperative with interview Mood: depressed Affect: flat but intermittently tearful due to concerns about heart Thought Process: logical and organized Thought Content: no paranoia, delusions, hallucinations, fixations/single ideas, no suicidal or homicidal ideation Perception: no audio or visual hallucinations. Does not appear to be responding to internal stimuli. Attention/Concentration: intact to interview and discussion regarding care. III. ASSESSMENT/PLAN:Tracie Layton 47 y.o. female presenting for follow-up of chest pain. She had dynamic (1mm depression) EKG changes on OSH EKGs and exercise stress was inconclusive (mild ST depression) due to exercise intolerance. Given this and ongoing intermittent chest pain with exertion and rest, we feel there is a need to further risk stratify before attributing her symptoms to uncontrolled hypertension and anxiety, so will move forward with nuclear stress. Chest pain, unspecified type - NM Pharmacologic Stress CT Component; Future - Nuclear Pharmacologic Stress Cardiology; Future - NM Pharmacologic Stress Myocardial Perfusion; Future - Start ASA 81mg daily - Consider beta blockage (will need to hold for nuc), statin pending nuclear stress results (stressscheduled 08/31/2018) Hypertension, essential, benign - Increase lisinopril to 20mg daily documented in this encounter Plan of Treatment Upcoming Encounters Date Type Department Care Team (Late st Contact Info) Description 09/05/2024 9:00 AM EDT Office [place] [address] Gema Oliveira, [facility] [address] documented as of this encounter Results * NM Pharmacologic Stress [...] at 08/31/2018 4:25 PM Froilan Crane MD IMG NM ORDERABLES * Nuclear Pharmacologic Stress Cardiology (08/31/2018 11:17 AM EDT) Anatomical Region Laterality Modality Other Froilan Crane MD CARDIAC SERVICES ORD ERABLES * NM Pharmacologic Stress Myocardial Perfusion (08/31/2018 10:43 AM EDT) Anatomical Region Laterality Modality Nuclear Medicine Impressions 08/31/2018 4:25 PM EDT 1. ??No ischemia or scar. ??Left ventricular function is normal. 2. ??Aortic calcifications noted on CT. I have personally reviewed the image(s) and the residents interpretation and agree with the findings, Nehemiah rGeer at 08/31/2018 4:25 PM Narrative 08/31/2018 4:25 [...] at 08/31/2018 4:25 PM Froilan Crane MD [facility] documented in this encounter Visit Diagnoses Diagnosis Chest pain, unspecified type Hypertension, essential, benign Essential hypertension, benign Chest pain, unspecified type Chest pain, unspecified type documented in this encounter Care Teams Electronic Assembly Relationship Specialty Start Date End Date Marguerite Riley MD [facility] [address] PCP - General General Internal Medicine 08/15/1704/22 documented as of this encounter"
--- OUTSIDE RECORDS SUMMARY | 2024-07-12 00:31 | XMS_ITS | Encounter Summary ---
Author Organization [facility] [place] [address] Care Team Providers Care Pricer Bagger Name Role Phone Marguerite Riley MD Primary Care Provider [phone] Reason for Visit * Diagnostic Test (Emergency) - Closed Specialty Diagnoses / Procedures Referred By Contac t Referred To Contact Radiology Diagnoses Chest pain, unspecified type Procedures NM Pharmacologic Stress Myocardial Perfusion Marguerite Riley MD [facility] [address] [place] [address] Referral ID Status Reason Start Date Expiration Date V isits Requested Visits Authorized [id number] Closed Specialty Service Requested 08/30/2018 11/28/2018 4 4 Encounter Details Date Type Department Care Team (Latest Contact Info) Description 08/31/2018 8:34 AM EDT Hospital Encounter [place] [address] Froilan Crane MD [facility] [address] Discharge Disposition: Home Social History [...] AM EDT Office [place] [address] Gema Oliveira, [facility] [place] [address] documented as of this encounter Procedures Procedure [...] at 08/31/2018 4:25 PM Froilan Crane MD [facility] [place] ORDERABLES * NM Pharmacologic Stress Myocardial Perfusion (08/31/2018 [...] at 08/31/2018 4:25 PM Froilan Crane MD [facility] [place] ORDERABLES documented in this encounter Visit Diagnoses Not on filedocumented in this encounter Care Teams Pricer Bagger Relationship Specialty Start Date End Date Marguerite Riley MD [facility] [address] PCP - General General Internal Medicine 08/15/17/ documented as of this encounter
--- OUTSIDE RECORDS SUMMARY | 2024-07-12 00:31 | XMS_ITS | Encounter Summary ---
Author Organization [facility]ly [facility], [facility] Address [facility] [place] [address] Care Team Providers Care Food Tray Assembler Name Role Phone Marguerite Riley MD Primary Care Provider [phone] [phone] Encounter Details Date Type Department Care Team (Latest Contact Info) Description 06/06/2019 9:00 AM EDT Clinical Support Internal Medicine at [address] [address] Essential hypertension Social History Tobacco Use Types [...] as of this encounter Progress Notes * Selma Butler CCMA - 06/06/2019 9:00 AM EDT Pt here for labs. documented in this encounter Plan of Treatment Upcoming Encounters Date Type Department Care Team (Late st Contact Info) Description 09/05/2024 9:00 AM EDT Office Visit Internal Medicine at [address] [address] Gema Oliveira, [facility] [place] [address] documented as of this encounter Procedures Procedure Name Priority Date/Time Associated Diagnosis Comments HEMOGLOBIN A1C Routine 06/06/2019 8:43 AM EDT Essential hypertension BASIC METABOLIC PANEL Routine 06/06/2019 8:43 AM EDT Essential hypertension documented in this encounter Results * Basic Metabolic Panel (non-fasting) (06/06/2019 8:43 AM EDT) Glucose 132 65 - 199 mg/dL [facility] Comment:Diabetes: >=200 mg/d L plus symptoms Blood Urea Nitrogen 15 8 - 18 mg/dL [facility] Creatinine 0.93 0.70 - 1.20 mg/dL [facility] Sodium 139 135 - 145 mmol/L [facility] Potassium 4.0 3.5 - 5.0 mmol/L [facility] Comment: Please note: ??Patients with WBC >100,000 may have falsely elevated Potassium levels. ??For accurate Potassium quantification in these patients send serum separator tube (gold top) for subsequent determinations. ??Contact the Clinical Chemistry Laboratory if there are any questions. Chloride 105 98 - 107 mmol/L [facility] Carbon Dioxide 24 22 - 31 mmol/L [facility] Anion Gap 10 5 - 15 mmol/L [facility] Calcium 9.2 8.5 - 10.5 mg/dL [facility] Est Glomerular Filtration Rate 73 >=60 mL/min/1. 73 m?? [facility] Comment: The eGFR was calculated using the CKD-EPI equation. As with all creatinine based estimates of kidney function, eGFR values calculated with the CKD-EPI equation are not accurate in patients with acute kidney failure, extremes of body mass or the acutely ill. [email or web address] eGFR 85 >=60 mL/min/1. 73 m?? [facility] Comment: The eGFR was calculated using the CKD-EPI equation. As with all creatinine based estimates of kidney function, eGFR values calculated with the CKD-EPI equation are not accurate in patients with acute kidney failure, extremes of body mass or the acutely ill. [email or web address] Blood specimen (specimen) 06/06/2019 8:43 AM EDT 06/06/2019 12:47 PM EDT Narrative Resulting Agency Comment Spec In Lab Ragini Unger MD CHEMISTRY ORDERABLES [facility] [place] [address] * Hemoglobin A1c (06/06/2019 8:43 AM EDT) Hemoglobin A1c 5.6 4.3 - 5.6 % [facility] Comment: Reference Range: 4.3 - [...] 36: Suppl. 1, S67-74 Estimated Average Glucose 114 mg/dL [facility] Comment: eAG equivalents for HbA1c [...] into estimated average glucose values. ??Diabetes Care 2008:31(8):6037-5389. Blood specimen (specimen) 06/06/2019 8:43 AM EDT 06/06/2019 12:47 PM EDT Narrative Resulting Agency Comment Spec In Lab Ragini Unger MD CHEMISTRY ORDERABLES [facility] [place] [place] [address] documented in this encounter Visit Diagnoses Diagnosis Essential hypertension Unspecified essential hypertension documented in this encounter Care Teams Food Tray Assembler Relationship Specialty Start Date End Date Marguerite Riley MD [facility] [place] [address] PCP - General General Internal Medicine 08/15/1704/22 documented as of this encounter
--- OUTSIDE RECORDS SUMMARY | 2024-07-12 00:31 | XMS_ITS | Encounter Summary ---
Author Organization [facility] [place] [address] Care Team Providers Care Trapeze Artist Name Role Phone Marguerite Riley MD Primary Care Provider [phone] [phone] Reason for Visit * Reason Onset Date Comments Medication Refill 11/01/2019 Encounter Details Date Type Department Care Team (Late st Contact Info) Description 11/01/2019 Refill Internal Medicine at [address] [address] Basilia Williamson APRN [facility] GENERAL INTERNAL [facility] [place] [address] Social History Tobacco Use Types Packs/Day Years [...] EDT Office Visit Internal Medicine at [address] [address] Gema Oliveira, [facility] GENER[facility] INTER[place] [address] documented as of this encounter Visit Diagnoses Not on filedocumented in this encounter Care Teams Trapeze Artist Relationship Specialty Start Date End Date Marguerite Riley MD [facility] [place] [address] PCP - General General Internal Medicine 08/15/17/ documented as of this encounter
--- OUTSIDE RECORDS SUMMARY | 2024-07-12 00:31 | XMS_ITS | Encounter Summary ---
Author Organization [facility] [place] [address] Care Team Providers Care Photograph Finisher Name Role Phone Marguerite Riley MD Primary Care Provider [phone] Reason for Referral * Physical Therapy (Routine) - Closed Specialty Diagnoses / Procedures Referred By María Elena mcdaniel Referred To Contact Diagnoses Low back pain, non-specific Basilia Williamson APRN [facility] [place] [address] Referral ID Status Reason Start Date Expiration Date V isits Requested Visits Authorized [id number] Closed Evaluate and Treat 12/06/2018 06/04/2019 10 10 Reason for Visit * Reason Comments Back Pain X14 weeks Encounter Details Date Type Department Care Team (Late st Contact Info) Description 12/06/2018 9:00 AM EST Office Visit Internal Medicine at [address] [address] Basilia Williamson APRN [facility] [place] [address] Myalgia, unspecified site; Low back pain, non-specific Social History Tobacco Use Types Packs/Day Years [...] Sign Reading Time Taken Comments Blood Pressure 156/89 12/06/2018 8:58 AM EST Pulse 98 12/06/2018 8:58 AM EST Temperature - - Respiratory Rate - - Oxygen Saturation 100% 12/06/2018 8:58 AM EST Inhaled Oxygen Concentration - - Weight 125.2 kg (276 lb) 12/06/2018 8:58 AM EST With shoes Height 176.5 cm (5' 9.5) 12/06/2018 8:58 AM EST Body Mass Index 40.17 12/06/2018 8:58 AM EST documented in this encounter Patient Instructions * Patient Instructions* Basilia Williamson, AUTOMOTIVE MAINTENANCE TECHNICIAN - 12/06/2018 9:00 AM EST Images from the original note were not included. Patient Education Low Back Pain: Exercises Your Care Instructions Here are some examples of typical rehabilitation exercises for your condition. Start each exercise slowly. Ease off the exercise if you start to have pain. Your doctor or physical therapist will tell you when you can start these exercises and which ones will work best for you. How to do the exercises Press-up 1. Lie on your stomach, supporting your body with your forearms. 2. Press your elbows down into the floor to raise your upper back. As you do this, relax your stomach muscles and allow your back to arch without using your back muscles. As your press up, do not letyour hips or pelvis come off the floor. 3. Hold for 15 to 30 seconds, then relax. 4. Repeat 2 to 4 times. Alternate arm and leg (bird dog) exercise 1. Start on the floor, on your hands and knees. 2. Tighten your belly muscles. 3. Raise one leg off the floor, and hold it straight out behind you. Be careful not to let your hipdrop down, because that will twist your trunk. 4. Hold for about 6 seconds, then lower your leg and switch to the other leg. 5. Repeat 8 to 12 times on each leg. 6. Over time, work up to holding for 10 to 30 seconds each time. 7. If you feel stable and secure with your leg raised, try raising the opposite arm straight out infront of you at the same time. Laax-ew-ywajh exercise 1. Lie on your back with your knees bent and your feet flat on the floor. 2. Bring one knee to your chest, keeping the other foot flat on the floor (or keeping the other legstraight, whichever feels better on your lower back). 3. Keep your lower back pressed to the floor. Hold for at least 15 to 30 seconds. 4. Relax, and lower the knee to the starting position. 5. Repeat with the other leg. Repeat 2 to 4 times with each leg. 6. To get more stretch, put your other leg flat on the floor while pulling your knee to your chest. Curl-ups 1. Lie on the floor on your back with your knees bent at a 90-degree angle. Your feet should be flat on the floor, about 12 inches from your buttocks. 2. Cross your arms over your chest. If this bothers your neck, try putting your hands behind your neck (not your head), with your elbows spread apart. 3. Slowly tighten your belly muscles and raise your shoulder blades off the floor. 4. Keep your head in line with your body, and do not press your chin to your chest. 5. Hold this position for 1 or 2 seconds, then slowly lower yourself back down to the floor. 6. Repeat 8 to 12 times. Pelvic tilt exercise 1. Lie on your back with your knees bent. 2. Brace your stomach. This means to tighten your muscles by pulling in and imagining your belly button moving toward your spine. You should feel like your back is pressing to the floor and your hips and pelvis are rocking back. 3. Hold for about 6 seconds while you breathe smoothly. 4. Repeat 8 to 12 times. Heel dig bridging 1. Lie on your back with both knees bent and your ankles bent so that only your heels are digging into the floor. Your knees should be bent about 90 degrees. 2. Then push your heels into the floor, squeeze your buttocks, and lift your hips off the floor until your shoulders, hips, and knees are all in a straight line. 3. Hold for about 6 seconds as you continue to breathe normally, and then slowly lower your hips back down to the floor and rest for up to 10 seconds. 4. Do 8 to 12 repetitions. Hamstring stretch in doorway 1. Lie on your back in a doorway, with one leg through the open door. 2. Slide your leg up the wall to straighten your knee. You should feel a gentle stretch down the back of your leg. 3. Hold the stretch for at least 15 to 30 seconds. Do not arch your back, point your toes, or bend either knee. Keep one heel touching the floor and the other heel touching the wall. 4. Repeat with your other leg. 5. Do 2 to 4 times for each leg. Hip flexor stretch 1. Kneel on the floor with one knee bent and one leg behind you. Place your forward knee over your foot. Keep your other knee touching the floor. 2. Slowly push your hips forward until you feel a stretch in the upper thigh of your rear leg. 3. Hold the stretch for at least 15 to 30 seconds. Repeat with your other leg. 4. Do 2 to 4 times on each side. Wall sit 1. Stand with your back 10 to 12 inches away from a wall. 2. Lean into the wall until your back is flat against it. 3. Slowly slide down until your knees are slightly bent, pressing your lower back into the wall. 4. Hold for about 6 seconds, then slide back up the wall. 5. Repeat 8 to 12 times. Follow-up care is a sandhu part of your treatment and safety. Be sure to make and go to all appointments, and call your doctor if you are having problems. It's also a good idea to know your test resultsand keep a list of the medicines you take. Where can you learn more? Visit our [employer] information library at [email or web address]. You can also view health information on [employer], your personal patient account. Log in or sign uptoday. Enter Z938 in the search box to learn more about Low Back Pain: Exercises. Current as of: August 09, 2018 Content Version: 11.9 ?? 9603-3646 [employer]. Care instructions adapted under license by [employer]. If you have questions about a medical condition or this instruction, always ask your healthcare professional. [employer] disclaims any warranty or liability for your use of this information. Patient Education Piriformis Syndrome: Exercises Your Care Instructions Here are some examples of typical rehabilitation exercises for your condition. Start each exercise slowly. Ease off the exercise if you start to have pain. Your doctor or physical therapist will tell you when you can start these exercises and which ones will work best for you. How to do the exercises Hip rotator stretch 1. Lie on your back with both knees bent and your feet flat on the floor. 2. Put the ankle of your affected leg on your opposite thigh near your knee. 3. Use your hand to gently push your knee (on your affected leg) away from your body until you feela gentle stretch around your hip. 4. Hold the stretch for 15 to 30 seconds. 5. Repeat 2 to 4 times. 6. Switch legs and repeat steps 1 through 5. Piriformis stretch 1. Lie on your back with your legs straight. 2. Lift your affected leg and bend your knee. With your opposite hand, reach across your body, and then gently pull your knee toward your opposite shoulder. 3. Hold the stretch for 15 to 30 seconds. 4. Repeat with your other leg. 5. Repeat 2 to 4 times on each side. Lower abdominal strengthening 1. Lie on your back with your knees bent and your feet flat on the floor. 2. Tighten your belly muscles by pulling your belly button in toward your spine. 3. Lift one foot off the floor and bring your knee toward your chest, so that your knee is straightabove your hip and your leg is bent like the letter L. 4. Lift the other knee up to the same position. 5. Lower one leg at a time to the starting position. 6. Keep alternating legs until you have lifted each leg 8 to 12 times. 7. Be sure to keep your belly muscles tight and your back still as you are moving your legs. Be sure to breathe normally. Follow-up care is a sandhu part of your treatment and safety. Be sure to make and go to all appointments, and call your doctor if you are having problems. It's also a good idea to know your test resultsand keep a list of the medicines you take. Current as of: August 09, 2018 Content Version: 11.9 ?? 8103-2015 [employer]. Care instructions adapted under license by [employer]. If you have questions about a medical condition or this instruction, always ask your healthcare professional. [employer] disclaims any warranty or liability for your use of this information. Patient Education Trochanteric Bursitis: Exercises Your Care Instructions Here are some examples of typical rehabilitation exercises for your condition. Start each exercise slowly. Ease off the exercise if you start to have pain. Your doctor or physical therapist will tell you when you can start these exercises and which ones will work best for you. How to do the exercises Hamstring wall stretch 7. Lie on your back in a doorway, with your good leg through the open door. 8. Slide your affected leg up the wall to straighten your knee. You should feel a gentle stretch down the back of your leg. 1. Do not arch your back. 2. Do not bend either knee. 3. Keep one heel touching the floor and the other heel touching the wall. Do not point your toes. 9. Hold the stretch for at least 1 minute to begin. Then try to lengthen the time you hold the stretch to as long as 6 minutes. 10. Repeat 2 to 4 times. 11. If you do not have a place to do this exercise in a doorway, there is another way to do it: 12. Lie on your back, and bend the knee of your affected leg. 13. Loop a towel under the ball and toes of that foot, and hold the ends of the towel in your hands. 14. Straighten your knee, and slowly pull back on the towel. You should feel a gentle stretch down the back of your leg. 15. Hold the stretch for 15 to 30 seconds. Or even better, hold the stretch for 1 minute if you can. 16. Repeat 2 to 4 times. Straight-leg raises to the outside 6. Lie on your side, with your affected leg on top. 7. Tighten the front thigh muscles of your top leg to keep your knee straight. 8. Keep your hip and your leg straight in line with the rest of your body, and keep your knee pointing forward. Do not drop your hip back. 9. Lift your top leg straight up toward the ceiling, about 12 inches off the floor. Hold for about 6 seconds, then slowly lower your leg. 10. Repeat 8 to 12 times. Clamshell 8. Lie on your side, with your affected leg on top and your head propped on a pillow. Keep your feet and knees together and your knees bent. 9. Raise your top knee, but keep your feet together. Do not let your hips roll back. Your legs should open up like a clamshell. 10. Hold for 6 seconds. 11. Slowly lower your knee back down. Rest for 10 seconds. 12. Repeat 8 to 12 times. Standing quadriceps stretch 1. If you are not steady on your feet, hold on to a chair, counter, or wall. You can also lie on your stomach or your side to do this exercise. 2. Bend the knee of the leg you want to stretch, and reach behind you to grab the front of your foot or ankle with the hand on the same side. For example, if you are stretching your right leg, use your right hand. 3. Keeping your knees next to each other, pull your foot toward your buttock until you feel a gentle stretch across the front of your hip and down the front of your thigh. Your knee should be pointeddirectly to the ground, and not out to the side. 4. Hold the stretch for 15 to 30 seconds. 5. Repeat 2 to 4 times. Piriformis stretch 1. Lie on your back with your legs straight. 2. Lift your affected leg and bend your knee. With your opposite hand, reach across your body, and then gently pull your knee toward your opposite shoulder. 3. Hold the stretch for 15 to 30 seconds. 4. Repeat 2 to 4 times. Double cole-cy-qhiwe 1. Lie on your back with your knees bent and your feet flat on the floor. You can put a small pillow under your head and neck if it is more comfortable. 2. Bring both knees to your chest. 3. Keep your lower back pressed to the floor. Hold for 15 to 30 seconds. 4. Relax, and lower your knees to the starting position. 5. Repeat 2 to 4 times. Follow-up care is a sandhu part of your treatment and safety. Be sure to make and go to all appointments, and call your doctor if you are having problems. It's also a good idea to know your test resultsand keep a list of the medicines you take. Where can you learn more? Visit our health information library at [email or web address]. You can also view health information on [employer], your personal patient account. Log in or sign uptoday. Enter N503 in the search box to learn more about Trochanteric Bursitis: Exercises. Current as of: August 09, 2018 Content Version: 11.9 ?? [id number] [employer]. Care instructions adapted under license by [facility]. If you have questions about a medical condition or this instruction, always ask your healthcare professional. [employer] disclaims any warranty or liability for your use of this information. documented in this encounter Progress Notes * Gonsalo Dahl A - 12/06/2018 9:00 AM EST Images from the original note were not included. PCP: Marguerite Riley MD Chief Complaint Patient presents with ??? Back Pain X14 weeks SUBJECTIVE: Tracie Layton is a 47 y.o. female who presents for f/u in ED in [facility]. Was seen in September for lower back pain, reports this new pain is different. Pain started 1 month ago, no trauma or instigated factor identified, described as center of lower back and b/l lower hips. Endorses acute, sharp, burning pains while standing or walking in hips b/l radiating to groin region. Relief with sitting. Chronic back pain is always there. Denies radiation to back of legs or knees, +endorses anesthesia anterior legs b/l. Denies saddle anesthesia, no bowel incontinence. Has tried electrical stimulation, Tylenol, Flexeril, stretches, no relief. Finds that movement exacerbates pain. Cannot stand for more than ten minutes, feels like legs are going to give out. Previous: Sharp pains never before, lower back pain is chronic. Review of Systems Constitutional: Negative for chills, fever and unexpected weight change. Respiratory: Positive for shortness of breath (Chronic). Negative for chest tightness. Cardiovascular: Negative for chest pain, palpitations and leg swelling. Gastrointestinal: Negative for abdominal pain, diarrhea, nausea and vomiting. Genitourinary: Negative for difficulty urinating, dysuria and hematuria. Musculoskeletal: Positive for gait problem and myalgias. Neurological: Positive for numbness. Negative for headaches. Psychiatric/Behavioral: Negative for sleep disturbance. Allergies Allergen Reactions ??? Bactrim [Sulfamethoxazole-Trimethoprim] Anaphylaxis ??? Aleve [Naproxen Sodium] Rash Per neuro team, patient has tolerated ketorolac in the past ??? Keflex [Cephalexin] Other (See Comments) Racing heart ??? Meloxicam Nausea Only Current Outpatient Medications Medication Sig Dispense Refill ??? ipratropium-albuterol (DUONEB) 0.5 mg-3 mg(2.5 mg base)/3 mL Solution for Nebulization Take 0.5mg by nebulization every 4 hours as needed. 60 vial 0 ??? varenicline (CHANTIX) 1 mg Tablet Take 1 tablet by mouth 2 times daily (with meals). 180 tablet0 ??? albuterol (PROAIR HFA) 90 mcg/actuation HFA Aerosol Inhaler Inhale 2 puffs into the lungs every4 hours as needed for Wheezing. Use with spacer 54 g 3 ??? metFORMIN (GLUCOPHAGE-XR) 500 mg Tablet Sustained Release 24 hr Take 1 tablet by mouth daily. After two weeks, take 2 tablets by mouth daily (1,000mg total dose). 90 tablet 3 ??? lisinopril (PRINIVIL;ZESTRIL) 20 mg Tablet Take 1 tablet by mouth daily. 30 tablet 1 ??? omeprazole (PRILOSEC) 40 mg Capsule, Delayed Release(E.C.) Take 1 capsule by mouth 2 times daily. 180 capsule 3 ??? buPROPion (WELLBUTRIN SR OR ZYBAN) 150 mg tablet sustained-release 12 hr Once daily for 3 days then twice/day. Indications: Smoking Cessation (Patient not taking: Reported on 12/06/2018) 90 tablet1 ??? varenicline (CHANTIX) 0.5 mg Tablet Take by mouth with meals. Days 1-3: 0.5 mg ONCE daily. Days4-7: 0.5 mg TWICE daily. Day 8 until the end of treatment: 1 mg TWICE daily. (Patient not taking: Reported on 12/06/2018) 53 tablet 0 Current Facility-Administered Medications Medication Dose Route Frequency Provider Last Rate Last Dose ??? albuterol (PROVENTIL) nebulizer solution 2.5 mg 2.5 mg Nebulization Q6H PRN Jeniffer Schilling,HERNANDEZ 2.5 mg at 01/09/17 1207 Patient Active Problem List Diagnosis Code ??? [...] Z91.5 ??? Obstructive lung disease (generalized) J44.9 Health Maintenance Summary PAP every 5 yrs Next Due 09/25/2023 Done 09/25/2018 [employer]LE [employer]ATOR CYTOLOGY FINAL REPORT Straight Edger Cytology Final Report Patient has more history with this topic... HPV test every 5 yrs Next Due 09/25/2023 Done 09/25/2018 HPV HPV 16 HPV Interpretation Patient has more history with this topic... Lipid Screening Next Due 08/22/2023 Done 08/22/2018 HDL/CHOL PROFILE Chol, Total Patient has more history with this topic... Tetanus vaccine Next Due 07/30/2023 Outside per patient (enter details in comments) 07/30/2013 Patient has more history with this topic... Pre-DM monitoring (HgbA1C or FBG) Next Due 08/22/2019 Done 08/22/2018 HEMOGLOBIN A1C Hemoglobin A1C Patient has more history with this topic... Pneumo Increased Risk This plan is no longer active. Done 09/01/2010 Imm Admin: Pneumococcal Polyvalent 23 Tdap adult This plan is no longer active. Outside per patient (enter details in comments) 07/30/2013 scanned Patient has more history with this topic... HIV screen This plan is no longer active. Done 08/15/2017 HIV SCREEN, 4TH GENERATION HIV-1/2 Ab and Ag Influenza (Flu) vaccine This plan is no longer active. Done 08/22/2018 Imm Admin: Influenza Vaccine PF, Quadrivalent Patient has more history with this topic... OBJECTIVE: Vitals: 12/06/18 0858 BP: 156/89 Pulse: 98 SpO2: 100% Weight: 125.2 kg (276 lb) Height: 176.5 cm (5' 9.5) PHYSICAL EXAM: Physical Exam Constitutional: She is oriented to person, place, and time. She appears well- developed and well-nourished. HENT: Head: Normocephalic and atraumatic. Eyes: EOM are normal. Pupils are equal, round, and reactive to light. Neck: Normal range of motion. Neck supple. Cardiovascular: Normal rate, regular rhythm, normal heart sounds and intact distal pulses. Exam reveals no gallop and no friction rub. No murmur heard. Pulmonary/Chest: Effort normal and breath sounds normal. Musculoskeletal: She exhibits tenderness. She exhibits no edema or deformity. Right hip: She exhibits decreased range of motion and tenderness. Left hip: She exhibits decreased range of motion and tenderness. Lumbar back: She exhibits tenderness and pain. Neurological: She is alert and oriented to person, place, and time. She has normal strength. No cranial nerve deficit or sensory deficit. Gait normal. Reflex Scores: Tricep reflexes are 1+ on the right side and 1+ on the left side. Bicep reflexes are 1+ on the right side and 1+ on the left side. Brachioradialis reflexes are 1+ on the right side and 1+ on the left side. Patellar reflexes are 0 on the right side and 0 on the left side. Achilles reflexes are 1+ on the right side and 1+ on the left side. Positive straight leg raise ASSESSMENT & PLAN: There are no diagnoses linked to this encounter. Tracie Layton is a 47yo female who presents today on f/u on her ongoing lower back and b/l hip pain that is suggestive of b/l trochanteric bursitis and IT band inflammation. Immediate pain upon standing and severe tenderness upon palpation to lateral hips support this diagnosis. Lumbosacral plexopath y/radiculopathy was considered in setting of spinal OA, but distribution and character of pain was not typical for this condition. Patellar reflexes were effectively absent, but had weak reflexes throughout. Considering inflammatory causes such as PMR, although subacute onset, young age, and lack of shoulder symptoms are not typical for PMR. Will prescribe pain relief medications for presumed bursitis and IT band inflammation, as well as PT and exercises to help mobilize tissues. Will also evaluate inflammatory markers. Low back and b/l hip pain - Duloxetine 30mg po qd for pain - Topical Voltaren gel for pain - Referral to PT - ESR/CRP - CK Depression, unspecified depression type - Continue Wellbutrin - Started on Duloxetine 30mg po qd for pain ?? Morbid obesity with BMI of 40.0-44.9, adult - Continue current exercise and diet recommendations ?? Hypertension, essential, benign - Continue lisinopril at current dose ?? Impaired fasting glucose - Continue metformin ?? Tobacco use - Continue Chantix and Wellbutrin Gonsalo Dahl, MS IV General Internal Medicine [facility] [place] * Basilia Williamson APRN - 12/06/2018 9:00 AM EST PCP: Marguerite Riley MD Chief Complaint Patient presents with ??? Back Pain X14 weeks SUBJECTIVE: Tracie Layton is a 47 y.o. female who presents for follow up for 1 months of low back pain. She was seen in ED of at [facility] and treated with flexeril for lumbago. - She has a history of chronic low back pain in the past, but this pain is a sharp and in bilateralhips. It is worse with standing and walking. It is improved with sitting. She has increased pain with standing for more than 10 minutes. She reports that it is is interfering with her life. She denies any known traumas. - she had taken ibuprofen 800 mg TID, flexeril, and tylenol every 6 hours. Review of Systems Constitutional: Positive for activity change. Negative for appetite change, chills, fever and unexpected weight change. Respiratory: Negative for cough and shortness of breath. Genitourinary: Negative for difficulty urinating and frequency. Musculoskeletal: Positive for arthralgias, back pain, gait problem and myalgias. Allergies Allergen Reactions ??? Bactrim [Sulfamethoxazole-Trimethoprim] Anaphylaxis ??? Aleve [Naproxen Sodium] Rash Per neuro team, patient has tolerated ketorolac in the past ??? Keflex [Cephalexin] Other (See Comments) Racing heart ??? Meloxicam Nausea Only Current Outpatient Medications Medication Sig Dispense Refill ??? ipratropium-albuterol (DUONEB) 0.5 mg-3 mg(2.5 mg base)/3 mL Solution for Nebulization Take 0.5mg by nebulization every 4 hours as needed. 60 vial 0 ??? varenicline (CHANTIX) 1 mg Tablet Take 1 tablet by mouth 2 times daily (with meals). 180 tablet0 ??? albuterol (PROAIR HFA) 90 mcg/actuation HFA Aerosol Inhaler Inhale 2 puffs into the lungs every4 hours as needed for Wheezing. Use with spacer 54 g 3 ??? metFORMIN (GLUCOPHAGE-XR) 500 mg Tablet Sustained Release 24 hr Take 1 tablet by mouth daily. After two weeks, take 2 tablets by mouth daily (1,000mg total dose). 90 tablet 3 ??? lisinopril (PRINIVIL;ZESTRIL) 20 mg Tablet Take 1 tablet by mouth daily. 30 tablet 1 ??? omeprazole (PRILOSEC) 40 mg Capsule, Delayed Release(E.C.) Take 1 capsule by mouth 2 times daily. 180 capsule 3 ??? buPROPion (WELLBUTRIN SR OR ZYBAN) 150 mg tablet sustained-release 12 hr Once daily for 3 days then twice/day. Indications: Smoking Cessation (Patient not taking: Reported on 12/06/2018) 90 tablet1 ??? varenicline (CHANTIX) 0.5 mg Tablet Take by mouth with meals. Days 1-3: 0.5 mg ONCE daily. Days4-7: 0.5 mg TWICE daily. Day 8 until the end of treatment: 1 mg TWICE daily. (Patient not taking: Reported on 12/06/2018) 53 tablet 0 Current Facility-Administered Medications Medication Dose Route Frequency Provider Last Rate Last Dose ??? albuterol (PROVENTIL) nebulizer solution 2.5 mg 2.5 mg Nebulization Q6H PRN Jeniffer Schilling PA 2.5 mg at 01/09/17 1207 Patient Active Problem List Diagnosis Code ??? [...] Obstructive lung disease (generalized) J44.9 OBJECTIVE: Vitals: 12/06/18 0858 BP: 156/89 Pulse: 98 SpO2: 100% Weight: 125.2 kg (276 lb) Height: 176.5 cm (5' 9.5) PHYSICAL EXAM: Physical Exam Constitutional: She is oriented to person, place, and time. She appears well- developed and well-nourished. HENT: Head: Normocephalic and atraumatic. Eyes: EOM are normal. Pulmonary/Chest: Effort normal. Musculoskeletal: Lumbar back: She exhibits tenderness and pain. Pain with standing and ambulation to the exam table. She has pain with lying flat in the supine position. Neurological: She is alert and oriented to person, place, and time. She has normal strength and normal reflexes. No sensory deficit. Gait abnormal. Coordination normal. She displays no Babinski's sign on the left side. Skin: Skin is warm and dry. No rash noted. Psychiatric: She has a normal mood and affect. Her behavior is normal. Thought content normal. ASSESSMENT & PLAN: Tracie was seen today for back pain. Diagnoses and all orders for this visit: Myalgia, unspecified site - Sedimentation rate; Future - CRP, acute inflammation; Future - CK; Future - Sedimentation rate - CRP, acute inflammation - CK Low back pain, non-specific - Sedimentation rate; Future - CRP, acute inflammation; Future - CK; Future - Referral to Physical Therapy - Sedimentation rate - CRP, acute inflammation - CK Other orders - DULoxetine (CYMBALTA) 30 mg Capsule, Delayed Release(E.C.); Take 1 capsule by mouth daily. - diclofenac (VOLTAREN) 1 % Gel; Apply 2 g topically 4 times daily as needed (pain, apply to low back.). documented in this encounter Plan of Treatment Upcoming Encounters Date Type Department Care Team (Late st Contact Info) Description 09/05/2024 9:00 AM EDT Office Visit Internal Medicine at [place] [id number] [facility] [place] [address] Scheduled Referrals Name Type Priority Associated Diagnoses Orde r Schedule Referral to Physical Therapy Outpatient Referral Routine Low back pain, non-specific Ordered: 12/06/2018 documented as of this encounter Procedures Procedure Name Priority Date/Time Associated Diagnosis Comments CRP, ACUTE INFLAMMATION Routine 12/06/2018 10:18 AM EST Myalgia, unspecified site Low back pain, non-specific CK Routine 12/06/2018 10:18 AM EST Myalgia, unspecified site Low back pain, non-specific SEDIMENTATION RATE Routine 12/06/2018 10 :17 AM EST Myalgia, unspecified site Low back pain, non-specific documented in this encounter Results * CK (12/06/2018 10:18 AM EST) Creatine Kinase 65 0 - 160 unit/L [facility] Blood specimen (specimen) 12/06/2018 10:18 AM EST 12/06/2018 12:07 PM EST Narrative Resulting Agency Comment Spec In Lab Basilia Williamson APRN CHEMISTRY ORDERA BLES [facility] [place] [address] * CRP, acute inflammation (12/06/2018 10:18 AM EST) C-Reactive Protein 2.0 <=4.9 mg/L [facility] Blood specimen (specimen) 12/06/2018 10:18 AM EST 12/06/2018 12:07 PM EST Narrative Resulting Agency Comment Spec In Lab Basilia Williamson AUTOMOTIVE MAINTENANCE TECHNICIAN CHEMISTRY ORDERA BLES Performing Organization Address City/[facility]/ZIP Co de Phone Number [facility] [place] [address] * Sedimentation rate (12/06/2018 10:17 AM EST) Sedimentation Rate Automated 10 0 - 20 mm/hr [facility] Blood specimen (specimen) 12/06/2018 10:17 AM EST 12/06/2018 12:07 PM EST Narrative Resulting Agency Comment Spec In Lab Basilia Williamson AUTOMOTIVE MAINTENANCE TECHNICIAN HEMATOLOGY ORDER ANA LILIA Performing Organization Address City/[facility] Co de Phone Number [facility] [place] [address] documented in this encounter Visit Diagnoses Diagnosis Myalgia, unspecified site Low back pain, non-specific documented in this encounter Care Teams Photograph Finisher Relationship Specialty Start Date End Date Marguerite Riley MD [facility] GENERAL [place] [address] PCP - General General Internal Medicine 08/15/17 6/3 documented as of this encounter
--- OUTSIDE RECORDS SUMMARY | 2024-07-12 00:31 | XMS_ITS | Encounter Summary ---
[place] [address] Care Team Providers Care Quality Assurance Assistant Name Role Phone Marguerite Riley MD Primary Care Provider [phone] [phone] Reason for Visit * Reason Onset Date Comments Prior Authorization 08/30/2018 Encounter Details Date Type Department Care Team (Late st Contact Info) Description 08/30/2018 Telephone [place] [address] Codi Regalado CCMA Prior Authorization Social History [...] Miscellaneous Notes * Telephone Encounter - Radha Brown CMA - 09/14/2018 11:17 AM EDT Approved from 09/14/2018 until 09/14/2019 Tracking number: [id number] * Telephone Encounter - Codi Regalado LNA - 08/30/2018 3:24 PM EDT Medication Prior Authorization 4L Gastroenterology / [place] [address] ?? Subscriber Insurance: [place] medicaid ?? Phone: Fax: ? Physician: Scotty Del Rosario ? Return ?? Pharmacy: [facility] ?? Telephone Fax ? Medication Requested: Omeprazole ?? Strength: 40 mg Frequency: BID ?? Disp.: 180 Refills: 3 ?? Currently taking: yes ?? Diagnosis for this medication: GERD ?? ICD-10 code: K21.9 ?? Prior medications trialed in this patient: Omeprazole QD ? Medication: Outcome/Adverse Reactions: treatment failure ?? Decision: ?? Tracking number/Case number/Reference number: ?? Effective date: ?? Start: End: documented in this encounter Plan of Treatment Upcoming Encounters Date Type Department Care Team (Late st Contact Info) Description 09/05/2024 9:00 AM EDT Office Visit Internal Medicine at [address] [address] Gema Oliveira DO [facility] [address] [address] documented as of this encounter Visit Diagnoses Not on filedocumented in this encounter Care Teams Quality Assurance Assistant Relationship Specialty Start Date End Date Marguerite Riley MD [facility] [place] [address] PCP - General General Internal Medicine 08/15/17 6/ documented as of this encounter
--- OUTSIDE RECORDS SUMMARY | 2024-07-12 00:31 | XMS_ITS | Encounter Summary ---
Author Organization [facility] [place] [address] Care Team Providers Care Software Intern Name Role Phone Gema Oliveira DO Primary Care Provider [phone]- [phone] Reason for Visit * Reason Onset Date Comments Medication Refill 05/06/2019 Encounter Details Date Type Department Care Team (Late st Contact Info) Description 05/06/2019 Refill Internal Medicine at [address] [address] Basilia Williamson APRN [facility] [address] INTERNAL [facility] [place] [address] Social History Tobacco Use Types Packs/Day Years [...] AM EDT Office Visit Internal Medicine at [address] [address] Gema Oliveira, [facility] [address] [address] documented as of this encounter Visit Diagnoses Not on filedocumented in this encounter Additional Health Concerns Infection Onset Date Last Indicated Resolved Time Rule Out Respiratory 12/15/2023 12/15/2023 024 8:51 PM EST Rule Out COVID-19 12/15/2023 12/15/2023 12/15/2023 4:42 PM EST RSV 12/15/2023 12/15/2023 12/25/2023 8:09 PM EST documented as of this encounter Care Teams Software Intern Relationship Specialty Start Date End Date Gema Oliveira DO [facility] [place] [address] PCP - General General Internal Medicine 05/17/23 documented as of this encounter
--- OUTSIDE RECORDS SUMMARY | 2024-07-12 00:31 | XMS_ITS | Encounter Summary ---
[place] [address] Care Team Providers Care 3D Animator Name Role Phone Marguerite Riley MD Primary Care Provider [phone] [phone] Reason for Visit * Reason Onset Date Comments Referral 12/21/2018 Encounter Details Date Type Department Care Team (Late st Contact Info) Description 12/21/2018 Telephone Internal Medicine at [address] [phone] Vanesa Zapata Referral Social History Tobacco Use Types Packs/Day Years [...] encounter Miscellaneous Notes * Telephone Encounter - Vanesa Zapata - 12/21/2018 12:51 PM EST Called to see if Tracie had been seen for this referral (PT from 12/06/18) and if so, where she wentso we may close it out documented in this encounter Plan of Treatment Upcoming Encounters Date Type Department Care Team (Late st Contact Info) Description 09/05/2024 9:00 AM EDT Office Visit Internal Medicine at [address] [place] [address] Gema Oliveira DO [facility] [place] [address] documented as of this encounter Visit Diagnoses Not on filedocumented in this encounter Care Teams 3D Animator Relationship Specialty Start Date End Date Marguerite Riley MD [facility] [address] INTERNAL MEDICINE [place], [place] [id number] PCP - General General Internal Medicine 08/15/17/ documented as of this encounter
--- OUTSIDE RECORDS SUMMARY | 2024-07-12 00:31 | XMS_ITS | Encounter Summary ---
Author Organization [facility] [place] [address] Care Team Providers Care Lead Loader Name Role Phone Marguerite Riley MD Primary Care Provider [phone] Reason for Visit * Reason Comments Medication Refill Encounter Details Date Type Department Care Team (Late st Contact Info) Description 08/03/2018 Refill Internal Medicine at [address] [address] Marguerite Riley MD [facility] [place] [address] Mild intermittent asthma without complication Social History [...] EDT Office Visit Internal Medicine at [address] [address] Gema Oliveira DO [facility] [address] [address] documented as of this encounter Visit Diagnoses Diagnosis Mild intermittent asthma without complication Unspecified asthma documented in this encounter Care Teams Lead Loader Relationship Specialty Start Date End Date Marguerite Riley MD [facility] [place] [address] PCP - General General Internal Medicine 08/15/17/ documented as of this encounter
--- OUTSIDE RECORDS SUMMARY | 2024-07-12 00:31 | XMS_ITS | Encounter Summary ---
Author Organization [facility] [place] [address] Care Team Providers Care Court Liaison Name Role Phone Marguerite Riley MD Primary Care Provider [phone] [phone] Reason for Visit * Reason Comments Facial Swelling under right eye, get ting bigger, hurts when she touched it, started 5 days ago Encounter Details Date Type Department Care Team (Late st Contact Info) Description 06/03/2019 9:00 AM EDT Office Visit Internal Medicine at [address] [phone] Ragini Unger MD [facility] GENERAL [place] [address] Essential hypertension; IFG (impaired fasting glucose); Hordeolum externum of right lower eyelid Social History Tobacco Use Types Packs/Day Years [...] Sign Reading Time Taken Comments Blood Pressure 145/85 06/03/2019 9:02 AM EDT Pulse 97 06/03/2019 9:02 AM EDT Temperature 37.2 ??C (98.9 ??F) 06/03/2019 8:57 AM ED T Respiratory Rate - - Oxygen Saturation 99% 06/03/2019 8:57 AM EDT Inhaled Oxygen Concentration - - Weight 120.7 kg (266 lb 3.2 oz) 06/03/2019 8:57 AM EDT Height 176.5 cm (5' 9.49) 06/03/2019 8:57 AM ED T reported Body Mass Index 38.76 06/03/2019 8:57 AM EDT documented in this encounter Patient Instructions * Patient Instructions* Ragini Unger MD - 06/03/2019 9:00 AM EDT Images from the original note were not included. Patient Education Styes and Chalazia: Care Instructions Your Care Instructions Styes and chalazia (say [facility]) are both conditions that can cause swelling of the eyelid. A stye is an infection in the root of an eyelash. The infection causes a tender red lump on the edge of the eyelid. The infection can spread until the whole eyelid becomes red and inflamed. Styes usually break open, and a tiny amount of pus drains. They usually clear up on their own in about a week, but they sometimes need treatment with antibiotics. A chalazion is a lump or cyst in the eyelid (chalazion is singular; chalazia is plural). It is caused by swelling and inflammation of deep oil glands inside the eyelid. Chalazia are usually not infected. They can take a few months to heal. If a chalazion becomes more swollen and painful or does not go away, you may need to have it drained by your doctor. Follow-up care is a sandhu part of your treatment and safety. Be sure to make and go to all appointments, and call your doctor if you are having problems. It's also a good idea to know your test resultsand keep a list of the medicines you take. How can you care for yourself at home? ?? Do not rub your eyes. Do not squeeze or try to open a stye or chalazion. ?? To help a stye or chalazion heal faster: ? Put a warm, moist compress on your eye for 5 to 10 minutes, 3 to 6 times a day. Heat often bringsa stye to a point where it drains on its own. Keep in mind that warm compresses will often increaseswelling a little at first. ? Do not use hot water or heat a wet cloth in a microwave oven. The compress may get too hot and can burn the eyelid. ?? Always wash your hands before and after you use a compress or touch your eyes. ?? If the doctor gave you antibiotic drops or ointment, use the medicine exactly as directed. Use the medicine for as long as instructed, even if your eye starts to feel better. ?? To put in eyedrops or ointment: ? Tilt your head back, and pull your lower eyelid down with one finger. ? Drop or squirt the medicine inside the lower lid. ? Close your eye for 30 to 60 seconds to let the drops or ointment move around. ? Do not touch the ointment or dropper tip to your eyelashes or any other surface. ?? Do not wear eye makeup or contact lenses until the stye or chalazion heals. ?? Do not share towels, pillows, or washcloths while you have a stye. When should you call for help? Call your doctor now or seek immediate medical care if: ? You have pain in your eye. ? You have a change in vision or loss of vision. ? Redness and swelling get much worse. ??Watch closely for changes in your health, and be sure to contact your doctor if: ? Your stye does not get better in 1 week. ? Your chalazion does not start to get better after several weeks. Where can you learn more? Visit our health information library at [email or web address]/Spot On Sciencesinfo. You can also view health information on opentabs, your personal patient account. Log in or sign uptoday. Enter C853 in the search box to learn more about Styes and Chalazia: Care Instructions. Current as of: June 05, 2018 Content Version: 12.1 ?? [id number] [employer]. Care instructions adapted under license by [facility]. If you have questions about a medical condition or this instruction, always ask your healthcare professional. [employer] disclaims any warranty or liability for your use of this information. documented in this encounter Progress Notes * aRgini Unger MD - 06/03/2019 9:00 AM EDT ESTABLISHED PATIENT ACUTE VISIT Chief Complaint Patient presents with ??? Facial Swelling under right eye, getting bigger, hurts when she touched it, started 5 days ago Pt is a 48 y.o. female who presents for acute visit with pain and swelling under her R eye. Started5 days ago. Thought she had a bug bite. but hasn't gone away. Doesn't hurt at rest, but does with pressure on the area. No redness of eye and no vision changes except related to some swelling. No discharge. Never with h/o styes, denies any knowledge of foreign body in eye. Feels BP is high b/c of her stress. On lisinopril 20 mg. Taking as directed. Took 3 hours ago. + WATKINS (baseline). No new CV symptoms. Trying to follow low carb diet for IFG, taking metformin. No side effects. ROS: Constitutional - no fevers, chills, No sig weight loss or gain, fatigue HEENT - No difficulty swallowing, hearing, No nasal congestion/postnasal drip Respiratory - No new SOB, BAUMANN, wheeze, cough, sputum production Cardiovascular - No new CP, palpitations, angina, edema, claudication Gastrointestinal - No new abdominal pain, nausea, GERD, constipation, diarrhea, blood in stool - no new difficulty urinating, incontinence or dysuria. Musculoskeletal - Skin - no new rashes All other systems negative Current Outpatient Medications on File Prior to Visit Medication Sig Dispense Refill ??? buPROPion (WELLBUTRIN [...] hours as needed. 60 vial 0 ??? omeprazole (PRILOSEC) 40 mg Capsule, Delayed Release(E.C.) Take 1 capsule by mouth 2 times daily. 180 capsule 3 No current facility-administered medications on file prior [...] Z91.5 ??? 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49) Wt Readings from Last 3 Encounters: 06/03/19 120.7 kg (266 lb 3.2 oz) 05/09/19 123.4 kg (272 lb) 12/06/18 125.2 kg (276 lb) General - No acute distress. R eye - Minimal swelling without erythema at mid point of lower lid. Examination of inner lid showssmall cystic lesion. No conjunctival injection. Assessment and Plan: Tracie was seen today for facial swelling. Diagnoses and all orders for this visit: Essential hypertension - increase lisinopril to 40 mg once daily. F/up with nurse visit for labs and recheck bp. F/up with Dr. Riley to be scheduled - lisinopril (PRINIVIL;ZESTRIL) 40 mg Tablet; Take 1 tablet by mouth daily. - Basic Metabolic Panel (non-fasting); Future - Hemoglobin A1c; Future IFG (impaired fasting glucose) - check A1c as above Hordeolum externum of right lower eyelid- discussed use of warm compresses. Handout given to patient on styes. - An After Visit Summary was printed and given to the patient. - The patient was given the necessary information on his condition and instructed to return to clinic if symptoms continue or worsen. documented in this encounter Plan of Treatment Upcoming Encounters Date Type Department Care Team (Late st Contact Info) Description 09/05/2024 9:00 AM EDT Office Visit Internal Medicine at [place] [phone] Gema Oliveira, [facility] GENERAL INTERNAL MEDICINE [place] [phone] documented as of this encounter Results * Hemoglobin A1c (06/06/2019 8:43 AM EDT) Hemoglobin A1c 5.6 4.3 - 5.6 % [facility] Comment: Reference Range: 4.3 [...] Mellitus, Diabetes Care 2013; 36: Suppl. 1, Z37-47 Estimated Average Glucose 114 mg/dL [facility] Comment: eAG equivalents for [...] into estimated average glucose values. ??Diabetes Care 2008:31(8):4920-0607. Blood specimen (specimen) 06/06/2019 8:43 AM EDT 06/06/2019 12:47 PM EDT Narrative Resulting Agency Comment Spec In Lab Ragini Unger MD CHEMISTRY ORDERABLES [facility] [place] [address] * Basic Metabolic Panel (non-fasting) (06/06/2019 8:43 AM EDT) Glucose 132 65 - 199 mg/dL [facility] Comment:Diabetes: >=200 mg/d L plus symptoms Blood Urea Nitrogen 15 8 - 18 mg/dL [facility] Creatinine 0.93 0.70 - 1.20 mg/dL [facility] Sodium 139 135 - 145 mmol/L [facility] Potassium 4.0 3.5 - 5.0 mmol/L [facility] Comment: Please note: ??Patients with WBC >100,000 may have falsely elevated Potassium levels. ??For accurate Potassium quantification in these patients send serum separator tube (gold top) for subsequent determinations. ??Contact the Clinical Chemistry Laboratory if there are any questions. Chloride 105 98 - 107 mmol/L [facility] Carbon Dioxide 24 22 - 31 mmol/L [facility] Anion Gap 10 5 - 15 mmol/L [facility] Calcium 9.2 8.5 - 10.5 mg/dL [facility] Est Glomerular Filtration Rate 73 >=60 mL/min/1. 73 m?? [facility] Comment: The eGFR was calculated using the CKD-EPI equation. As with all creatinine based estimates of kidney function, eGFR values calculated with the CKD-EPI equation are not accurate in patients with acute kidney failure, extremes of body mass or the acutely ill. http://Glarity/DHnkf eGFR 85 >=60 mL/min/1. 73 m?? [facility] Comment: The eGFR was calculated using the CKD-EPI equation. As with all creatinine based estimates of kidney function, eGFR values calculated with the CKD-EPI equation are not accurate in patients with acute kidney failure, extremes of body mass or the acutely ill. http://Virtualtwo.com/DHMCnkf Blood specimen (specimen) 06/06/2019 8:43 AM EDT 06/06/2019 12:47 PM EDT Narrative Resulting Agency Comment Spec In Lab Ragini Unger MD CHEMISTRY ORDERABLES [facility] [place] [address] documented in this encounter Visit Diagnoses Diagnosis Essential hypertension Unspecified essential hypertension IFG (impaired fasting glucose) Impaired fasting glucose Hordeolum externum of right lower eyelid Hordeolum externum documented in this encounter Care Teams Court Liaison Relationship Specialty Start Date End Date Marguerite Riley MD [facility] [place] [address] PCP - General General Internal Medicine 08/15/1704/22 documented as of this encounter
--- OUTSIDE RECORDS SUMMARY | 2024-07-12 00:31 | XMS_ITS | Encounter Summary ---
[place] [address] Care Team Providers Care Putty Maker Name Role Phone Marguerite Riley MD Primary Care Provider [phone] Encounter Details Date Type Department Care Team (Late st Contact Info) Description 08/24/2018 Telephone Internal Medicine at [facility] [address] [place] [address] Joya Mcdonald RN Social History Tobacco Use Types Packs/Day [...] encounter Miscellaneous Notes * Telephone Encounter - Oswald Mcdonald RN - 08/24/2018 12:10 PM EDT Phone call from [facility] ED, patient in for chest pain, ED provider spoke with Dr. Crane, will reach out to patient to schedule F/U Appointment early next week documented in this encounter Plan of Treatment Upcoming Encounters Date Type Department Care Team (Late st Contact Info) Description 09/05/2024 9:00 AM EDT Office Visit Internal Medicine at [facility] [address] [place] [address] Gema Oliviera DO [facility] [place] [address] documented as of this encounter Visit Diagnoses Not on filedocumented in this encounter Care Teams Putty Maker Relationship Specialty Start Date End Date Marguerite Riley MD [facility] [address] [address] PCP - General General Internal Medicine 08/15/17 6/3 documented as of this encounter
--- OUTSIDE RECORDS SUMMARY | 2024-07-12 00:31 | XMS_ITS | Encounter Summary ---
Author Organization [facility] Address [facility] [place] [address] Care Team Providers Care Boot Liner Maker Name Role Phone Marguerite Riley MD Primary Care Provider [phone] Encounter Details Date Type Department Care Team (Latest Contact Info) Description 08/31/2018 8:43 AM EDT - 08/31/2018 11:59 PM EDT Hospital Encounter Non[place] [address] Froilan Crane MD [facility] [place] [address] Chest pain, unspecified type Discharge Disposition: Home [...] AM EDT Office Visit Internal Medicine at [address] [phone] Gema Oliveira, [facility] [place] [address] documented as of this encounter Procedures Procedure Name Priority Date/Time Associated Diagnosis Comments NUCLEAR PHARMACOLOGIC STRESS CARDIOLOGY Routine 08/31/2018 11:17 AM EDT Chest pain, unspecified type documented in this encounter Results * Nuclear Pharmacologic Stress Cardiology (08/31/2018 11:17 AM EDT) Anatomical Region Laterality Modality Other Froilan Crane MD CARDI[facility] SERVICES ORD ERABLES documented in this encounter Visit Diagnoses Diagnosis Chest pain, unspecified type documented in this encounter Care Teams Boot Liner Maker Relationship Specialty Start Date End Date Marguerite Riley MD [facility] [place] [address] PCP - General General Internal Medicine 08/15/1704/22 documented as of this encounter
--- OUTSIDE RECORDS SUMMARY | 2024-07-12 00:31 | XMS_ITS | Encounter Summary ---
Author Organization [facility] [place] [address] Care Team Providers Care Ware Carrier Name Role Phone Marguerite Riley MD Primary Care Provider [phone] Reason for Referral * Diagnostic Test (Emergency) - Closed Specialty Diagnoses / Procedures Referred By Contac t Referred To Contact Radiology Diagnoses Chest pain, unspecified type Procedures NM Pharmacologic Stress Myocardial Perfusion Marguerite Riley MD [facility] [place] [address] [place] [address] Referral ID Status Reason Start Date Expiration Date V isits Requested Visits Authorized [id number] Closed Specialty Service Requested 08/30/2018 11/28/2018 4 4 Reason for Visit * Diagnostic Test (Emergency) - Closed Specialty Diagnoses / Procedures Referred By Contac t Referred To Contact Radiology Diagnoses Chest pain, unspecified type Procedures NM Pharmacologic Stress Myocardial Perfusion Marguerite Riley MD [facility] [address] [facility] [place] [address] Referral ID Status Reason Start Date Expiration Date V isits Requested Visits Authorized [id number] Closed Specialty Service Requested 08/30/2018 11/28/2018 4 4 Encounter Details Date Type Department Care Team (Latest Contact Info) Description 08/31/2018 8:33 AM EDT Hospital Encounter [place] [address] Froilan Crane MD [facility] [place] [address] Chest pain, unspecified type Discharge Disposition: Home [...] Visit Internal Medicine at [address] [id number] Gema Oliveira, [facility] [place] [address] documented as of this encounter Procedures Procedure Name Priority Date/Time Associated Diagnosis Comments NM PHARMACOLOGIC STRESS AND REST MYOCARDIAL PERFUSION STAT 08/31/2018 10:43 AM EDT Chest pain, unspecified type documented in this encounter Results * NM Pharmacologic Stress Myocardial Perfusion (08/31/2018 [...] at 08/31/2018 4:25 PM Froilan Crane MD [facility] [place] ORDERABLES documented in this encounter Visit Diagnoses Diagnosis Chest pain, unspecified type documented in this encounter Administered Medications Inactive Administered Medications - up to 3 most recent administrations Medication Order MAR Action Action Date Dose Rate Site technetium (Tc-99m) sestamibi injection 8.5 mCi 8.5 mCi, Intravenous, ONCE PRN, 1 dose, Starting on Mon08/31/18 at 0910, Until Mon08/31/18 at 0910, Per Protocol, Routine Given 08/31/2018 9:10 AM EDT 8.5 mCi documented in this encounter Care Teams Ware Carrier Relationship Specialty Start Date End Date Marguerite Riley MD [facility] [place] [address] PCP - General General Internal Medicine 08/15/1704/22 documented as of this encounter
--- OUTSIDE RECORDS SUMMARY | 2024-07-12 00:31 | XMS_ITS | Encounter Summary ---
[place] [address] Care Team Providers Care Yeast Cake Cutter Name Role Phone Marguerite Riley MD Primary Care Provider [phone] Reason for Visit * Reason Onset Date Comments Medication Refill 06/18/2018 Encounter Details Date Type Department Care Team (Late st Contact Info) Description 06/20/2018 Refill Internal Medicine at [address] [address] Selma Butler CCMA Nicotine dependence, cigarettes, uncomplicated; Tobacco abuse counseling; [...] encounter Miscellaneous Notes * Telephone Encounter - Selma Butler CCMA - 06/20/2018 1:57 PM EDTFrom: Tracie Layton To: Ragini Unger MD Sent: 06/18/2018 9:27 AM EDT Subject: Medication Renewal Request Original authorizing provider: MD Tracie HARRELL would like a refill of the following medications: ipratropium-albuterol (DUONEB) 0.5 mg-3 mg(2.5 mg base)/3 mL Solution for Nebulization [RAGINI UNGER MD] varenicline (CHANTIX) 1 mg Tablet [RAGINI UNGER MD] albuterol (PROAIR HFA) 90 mcg/actuation HFA Aerosol Inhaler [RAGINI UNGER MD] Preferred pharmacy: [facility] [address] [place], [place] - [address] Comment: documented in this encounter Plan of Treatment Upcoming Encounters Date Type Department Care Team (Late st Contact Info) Description 09/05/2024 9:00 AM EDT Office Visit Internal Medicine at [address] [address] Gema Oliveira DO [facility] [place] [address] documented as of this encounter Visit Diagnoses Diagnosis Nicotine dependence, cigarettes, uncomplicated Tobacco abuse counseling Counseling on substance use and abuse Mild intermittent asthma without complication Unspecified asthma documented in this encounter Care Teams Yeast Cake Cutter Relationship Specialty Start Date End Date Marguerite Riley MD [facility] [address] [address] PCP - General General Internal Medicine 08/15/17 6/ documented as of this encounter
--- OUTSIDE RECORDS SUMMARY | 2024-07-12 00:32 | XMS_ITS | Encounter Summary ---
Author [facility] [place] [address] Care Team Providers Care Hangar Attendant Name Role Phone Ragini Unger MD Primary Care Provider [phone] Encounter Details Date Type Department Care Team (Late st Contact Info) Description 06/08/2017 Telephone Internal Medicine at [address] [phone] Shanna Bishop Social History Tobacco Use Types Packs/Day Years Used Date Smoking Tobacco: Every Day Cigarettes Smokeless Tobacco: Never Alcohol Use Standard Drinks/Week Comments Yes 0 (1 standard drink = 0.6 oz pur e alcohol) Occasional Sex and Gender Information Value Date Recorded Sex Assigned at Not on file Gender Identity Not on file Sexual Orientation Not on file documented as of this encounter Miscellaneous Notes * Telephone Encounter - Shanna Bishop - 06/08/2017 8:34 AM EDT Patient called 06-08-17 to reschedule her 06-16-[address] Unger. Please transfer her call to Shanna [phone] as I have dates to offer patient per Dr Unger. documented in this encounter Plan of Treatment Upcoming Encounters Date Type Department Care Team (Late st Contact Info) Description 09/05/2024 9:00 AM EDT Office Visit Internal Medicine at [address] [phone] Gema Oliveira DO [facility] [place] [address] documented as of this encounter Visit Diagnoses Not on filedocumented in this encounter Care Teams Hangar Attendant Relationship Specialty Start Date End Date Ragini Unger MD [facility] [place] [address] PCP - General General Internal Medicine 12/06/16 9/2 04/05 documented as of this encounter
--- OUTSIDE RECORDS SUMMARY | 2024-07-12 00:32 | XMS_ITS | Encounter Summary ---
Author Organization [facility] Address [facility] [place] [address] Care Team Providers Care Evp General Counsel Name Role Phone Marguerite Riley MD Primary Care Provider [phone] Reason for Visit * Reason Comments Urinary Incontinence Urodynamics Study Encounter Details Date Type Department Care Team (Latest Contact Info) Description 12/04/2017 8:00 AM EST Procedure visit Obstetrics [place] [address] Jammie Richards MD [facility] [address] OB[place] [address] Stress incontinence of urine Social History Tobacco Use Types Packs/Day Years [...] Sign Reading Time Taken Comments Blood Pressure 138/88 12/04/2017 8:49 AM EST Pulse 102 12/04/2017 8:49 AM EST Temperature 36.4 ??C (97.5 ??F) 12/04/2017 8:49 AM ES T Respiratory Rate - - Oxygen Saturation 100% 12/04/2017 8:49 AM EST Inhaled Oxygen Concentration - - Weight - - Height - - Body Mass Index - - documented in this encounter Progress Notes * Jammie Richards MD - 12/04/2017 8:00 AM EST Female Pelvic Medicine and Reconstructive Surgery @ [facility] Urodynamic Procedure Note Patient name: Tracie Layton Final Impression: ?? Urinary incontinence, stress predominant symptoms. Leak [...] to pursue any of the above interventions. INDICATIONS FOR URODYNAMICS: ( ) Voiding problems (x) Urinary incontinence ( ) Pelvic organ prolapse ( ) Other: Multi-channel urodynamic evaluation procedure was verbally explained to the patient including risksof possible urinary tract infection and benefit of information from the testing. Verbal consent obtained. UROFLOWMETRY: Total Volume Voided: voided just prior to arrival Qmax: n/a mL/sec Qavg: n/a mL/sec Post void residual: 20 mL (obtained via catheter) URINE ANALYSIS: negative for all components CYSTOMETROGRAM: 7 Filipino T-DOC catheter was inserted into the bladder. A 7 Filipino T-DOC catheter was placed in the vagina/rectum for measurement of abdominal pressures. Filling was performed via a 7 Filipino T-DOC catheter in the sitting position at a rate of 50cc/min. . Detrusor pressure at 0cc: 0 cm H2O S1-First sensation: 47 mL S2-First desire: 99 mL S3-Strong desire: 256 mL S4- Maximum cystometric capacity: 300 mL Detrusor pressure at maximum cystometric capacity: 0 cm H2O EMG: (x) not done (x) stable during filling ( ) appropriate increased activity with Valsalva, cough ( ) appropriate relaxation with voiding Uninhibited detrusor contractions associated with urge: no Uninhibited detrusor contractions associated with urinary leakage : no Leakage seen with stress maneuvers (valsalva/cough): yes Leak point pressure testing performed at 200 cc at 50cc increments and at capacity. Maneuver Leak? Volume (mL) Pressure Sitting w/o prolapse support yes 200, 300 192-253 cm H2O (Pves) Sitting with prolapse support (scopette) n/a n/a cm H2O (Pves) Urethral catheter out w/o prolapse support n/a n/a cm H2O (Pabd) Urethral catheter out with prolapse support (scopette) n/a n/a cm H2O (Pabd) Urethral Pressure Profile: The urethral catheter was withdrawn until the peak urethral pressure was measured (135 cm H20). Themaximum urethral closure pressure (mUCP) was 94 cm H20. PRESSURE-FLOW VOIDING STUDY: Voided: 242 mL Maximum flow rate (Qmax): 36 mL/sec Detrusor pressure (Pdet) at Qmax: 42 cm H2O Comments: (mild) Abdominal straining with void ( ) Obstruction by Blaivis / Groutz nomogram ( ) Other: Symptom diagnosis: Storage symptoms ( ) None ( ) Increased daytime frequency ( ) Nocturia ( ) Urgency (x) Stress urinary incontinence ( ) Urge urinary incontinence ( ) Mixed urinary incontinence ( ) Nocturnal enuresis ( ) Continuous urinary incontinence Voiding symptoms (x) None ( ) Slow stream ( ) Splitting/spraying ( ) Straining (muscular effort to initiate, maintain or improve flow) ( ) Feeling of incomplete emptying Other Diagnoses: ( ) Urodynamic Diagnosis: Filling Phase Diagnoses: Sensation (x) Normal bladder sensation ( ) Increased bladder sensation (First sensation < 20cc) ( ) Reduced bladder sensation (FS > 250cc & First desire > 400cc & Strong desire >600cc) ( ) Absent bladder sensation (NO sensation to void with a volume > 600cc) ( ) Urgency Filling Phase Diagnosis: Detrusor Function (x) Normal filling detrusor function ( ) Detrusor overactivity ( ) Phasic detrusor overactivity ( ) Terminal detrusor overactivity ( ) Detrusor overactivity with incontinence Filling Phase Diagnosis: Urethral closure mechanism ( ) Normal filling phase (x) Urodynamic stress urinary incontinence Voiding Phase Diagnoses: Detrusor function during voiding (x) Normal voiding detrusor function ( ) Detrusor underactivity ( ) Acontractile detrusor Voiding Phase Diagnoses: Urethral function during voiding (If EMG not done, may be less specific source) (x) Normal urethral function during voiding ( ) Bladder outlet obstruction ( ) Dysfunctional voiding ( ) 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 I was present for the pertinent portions of the urodynamic testing and fully reviewed and edited the results. JAMMIE RICHARDS MD Division of Female Pelvic Medicine and Reconstructive Surgery documented in this encounter Plan of Treatment Upcoming Encounters Date Type Department Care Team (Late st Contact Info) Description 09/05/2024 9:00 AM EDT Office Visit Internal Medicine at [address] [phone] Gema Oliveira, [facility] [place] [address] documented as of this encounter Procedures Procedure Name Priority Date/Time Associated Diagnosis Comments POCT URINE DIPSTICK Routine 12/04/2017 Stress incontinence of urine UROLOGY SCAN 11/16/2017 12:00 AM EST documented in this encounter Results * POCT urine dipstick (12/04/2017) POC Sp Bullhead WNL 1.002 - 1.030 POC pH, UA WNL 5.0 - 8.5 POC Leuk, UA Neg. Negative - Negative POC Nitrite, UA Neg. Negative - Negative POC Protein, UA Neg. Negative - Negative mg/dL POC Glucose, UA Norm. Normal - Normal mg/dL POC Ketone, UA Neg. Negative - Negative POC Urobil, UA Norm. 0.2 - 1.0 mg/dL POC Bili, UA Neg. Negative - Negative POC Blood, UA Neg. Negative - Negative niall/uL Jammie Richards MD POINT OF CARE TEST O RDERABLES * SCAN DOC: UROLOGY (11/16/2017 12:00 AM EST) Narrative 11/16/2017 12:00 AM EST Ordered by an unspecified provider. Scanning Provider MEDIA MGR SCAN EXT O RDR/RSLT documented in this encounter Visit Diagnoses Diagnosis Stress incontinence of urine documented in this encounter Care Teams Evp General Counsel Relationship Specialty Start Date End Date Marguerite Riley MD [facility] [place] [address] PCP - General General Internal Medicine 08/15/1704/22 documented as of this encounter
--- OUTSIDE RECORDS SUMMARY | 2024-07-12 00:32 | XMS_ITS | Encounter Summary ---
Author Organization [facility] [place] [address] Care Team Providers Care Hog Scraper Name Role Phone Ragini Unger MD Primary Care Provider [phone] Encounter Details Date Type Department Care Team (Late st Contact Info) Description 03/02/2017 Telephone Internal Medicine at [address] [phone] Leah Raines RN Social History Tobacco Use Types Packs/Day [...] encounter Miscellaneous Notes * Telephone Encounter - Leah Raines RN - 03/02/2017 8:46 AM EDT Conjunctivitis Phone Triage Note Eligibility for protocol: Patient with suspected symptoms of conjunctivitis or ???pink eye.?? If no symptoms but has had exposure, skip to self care instructions. Associated symptoms: [x] Red eyes / lids [x] Thick eye drainage / discharge throughout the day [x] Eyes/lids crusted/stuck shut in the AM If no to at least two out of three, protocol is not appropriate; further nursing assessment is needed. Comment: Left eye runny all day yesterday, eyelid today puffy/pink, slightly crusty on waking. Drainage sometimes clear and sometimes gooey. Granddaughter and daughter being treated currently. If yes to at least two out of three, proceed with protocol. Are any of the following present: Denies [] Trauma to eye [] Foreign body present [] Photophobia/eye pain or headache [] Visual changes (other than blurring from discharge) [] Orbital swelling above or below eye [] Symptoms present for more than 5 days [] Contact lens use in the past week If yes to any, schedule a same day appointment or recommend evaluation by an eye doctor. Comment: If no to all, proceed to treatment options AND self care instructions. Treatment options: [] Erythromycin ophthalmic ointment - ?? inch 4 times daily to affected eye for 5-7 days IF PATIENT PREFERS DROPS AND NO ALLERGY: [x] Polymyxin-trimethoprim drops - 1-2 drops in the affected eye 4 times daily for 5-7 days IF PATIENT PREFERS DROPS AND ALLERGIC TO ABOVE: [] Sulfacetamide 10% ophthalmic solution - 2 drops four times a day to affected eye for 5-7 days Patient can use topical erythromycin if there is a history of GI side effects related to oral erythromycin use. Comment: Self Care Instructions: Careful hand washing / avoid contact with eye Do not share your towel or washcloth with others in the home Clean lids gently twice a day with warm water to remove discharge If your job/school involves frequent or close contact with other people, stay out of work until treated for 24 hours If symptoms do not begin to improve within 2 days or if they get worse, call back Confirmed that Polytrim is appropriate with bactrim allergy with Dr Crane. Advised patient to callback tomorrow afternoon if no improvement. documented in this encounter Plan of Treatment Upcoming Encounters Date Type Department Care Team (Late st Contact Info) Description 09/05/2024 9:00 AM EDT Office Visit Internal Medicine at [address] [address] Gema Oliveira, [facility] GENERAL [place] [address] documented as of this encounter Visit Diagnoses Not on filedocumented in this encounter Care Teams Hog Scraper Relationship Specialty Start Date End Date Ragini Unger MD [facility] GENER[facility] [place] [address] PCP - General General Internal Medicine 12/06/16 9/2 04/05 documented as of this encounter
--- OUTSIDE RECORDS SUMMARY | 2024-07-12 00:32 | XMS_ITS | Encounter Summary ---
Author Organization [facility] [place] [address] Care Team Providers Care Two Way Radio Installer Name Role Phone Marguerite Riley MD Primary Care Provider [phone] Reason for Visit * Diagnostic Test (Routine) - Closed Specialty Diagnoses / Procedures Referred By Contac t Referred To Contact Radiology Diagnoses Osteoarthritis of spine with radiculopathy, lumbar region Procedures MRI Lumbar Spine wo Contrast (Generic) Marguerite Riley MD [facility] [place] [address] [place] [address] Referral ID Status Reason Start Date Expiration Date V isits Requested Visits Authorized [id number] Closed Specialty Service Requested 11/14/2017 02/12/2018 1 1 Encounter Details Date Type Department Care Team (Latest Contact Info) Description 11/23/2017 10:10 AM EST - 11/23/2017 11:59 PM EST Hospital [place] [address] Ragini Unger MD [facility] [place] [address] Discharge Disposition: Home Social History [...] Sig Dispensed Refills Start Date End Date varenicline (CHANTIX) 1 mg TabletIndications:Johnathan otine dependence, cigarettes, uncomplicated,Tobacco abuse counseling Take 1 tablet by mouth 2 times daily (with meals). 60 tablet 1 09/19/2017 06/20/2018 nicotine polacrilex (COMMIT) 2 mg LozengeIndications:Ni cotine dependence, cigarettes, uncomplicated,Tobacco abuse counseling Place 1 lozenge inside cheek every 2 hours as needed for Smoking cessation. Max 20 Lozenges per day 108 tablet 2 09/19/2017 12/04/2017 buPROPion (WELLBUTRIN SR OR ZYBAN) 150 mg Tablet Sustained Release 12 hrIndications:smoking cessation Once daily for 3 days then twice/day. Indications: Smoking Cessation 90 tablet 1 09/19/2017 08/22/2018 albuterol (PROAIR HFA) 90 mcg/actuation HFA Aerosol InhalerIndications:Mi ld intermittent asthma without complication Inhale 2 puffs into the lungs every 4 hours as needed for Wheezing. Use with spacer 1 Inhaler 09/19/2017 06/20/2018 varenicline (CHANTIX) 0.5 mg TabletIndications:Johnathan otine dependence, cigarettes, uncomplicated,Tobacco abuse counseling Take by mouth with meals. Days 1-3: 0.5 mg ONCE daily. Days 4-7: 0.5 mg TWICE daily. Day 8 until the end of treatment: 1 mg TWICE daily. 53 tablet 09/19/2017 05/07/2019 omeprazole (PRILOSEC) 40 mg Capsule, Delayed Release(E.C.)Indicati ons:Gastroesophageal reflux disease without esophagitis Take 1 capsule by mouth 2 times daily. 180 capsule 3 06/01/2017 08/29/2018 dicyclomine (BENTYL) 10 mg Capsule Take 1 capsule by mouth 4 times daily. 120 capsule 1 06/01/2017 12/04/2017 ipratropium-albuterol (DUONEB) 0.5 mg-3 mg(2.5 mg base)/3 mL Solution for Nebulization Take 0.5 mg by nebulization every 4 hours as needed. 60 vial 04/21/2017 06/20/2018 documented as of this encounter Plan of Treatment Upcoming Encounters Date Type Department Care Team (Late st Contact Info) Description 09/05/2024 9:00 AM EDT Office Visit Internal Medicine at [address] [address] Gema Oliveira, [facility] [place] [address] documented as of this encounter Procedures Procedure Name Priority Date/Time Associated Diagnosis Comments MRI LUMBAR SPINE WITHOUT CONTRAST Routine 11/23/2017 12:18 PM EST Osteoarthritis of spine with radiculopathy, lumbar region documented in this encounter Results * MRI Lumbar Spine wo Contrast (Generic) (11/23/2017 12:18 PM EST) Anatomical Region Laterality Modality L-spine Magnetic Resonan ce Impressions 11/23/2017 3:02 PM EST The degenerative changes at L4-L5 and L5-S1 are again identified. Slight interval enlargement of left foraminal disc protrusion at L5-S1 contributes to moderate left-sided neural foraminal narrowing. Comment: The following findings are so common in people without low back pain that while we report their presence, they must be interpreted with caution and in context of the clinical situation (Reference- Jarvik et al, Spine 2001). Findings: (Prevalence in patients without low back pain), disc degeneration (decreased T2 signal, height loss, bulge) (91%), disc T2-signal loss (83%), disc height loss (56%), disc bulge (64%), disc protrusion (32%), annular fissure (38%). I have personally reviewed the image(s) and the residents interpretation and agree with the findings, GORGE LEDEZMA at 11/23/2017 3:02 PM Narrative 11/23/2017 3:02 PM EST EXAMINATION: MRI LUMBAR SPINE WO CONTRAST (GENERIC) CLINICAL HISTORY: assess for progression of DJD of spine, pt with new bilateral radiation pain through lateral thighs TECHNIQUE: Noncontrast MRI of the lumbar spine, routine protocol COMPARISON: Lumbar spine radiographs 2016. MRI of the lumbar spine 06/11/2013. FINDINGS: Alignment is unremarkable. No suspicious marrow signal alteration. The conus medullaris is normal and terminates at the T12-L1 level approximately. There are no significant findings in the retroperitoneal soft tissues. T12-L1, L1-L2, L2-L3: Normal. L3-L4: Mild bilateral facet arthropathy. Minimal disc bulge. No canal stenosis or neuroforaminal narrowing. No significant interval change. L4-L5: Annular disc bulge. Severe bilateral facet arthropathy. These findings contribute to mild central canal stenosis and mild narrowing of the neural foramina. No significant interval change. L5-S1: Disc bulge and mild facet arthropathy again noted. There is interval enlargement of the left foraminal disc protrusion that contributes to moderate left-sided neural foraminal narrowing. Canal and right-sided foramen are patent. Procedure Note Gorge Ledezma MD - 11/23/2017 EXAMINATION: MRI LUMBAR SPINE WO CONTRAST (GENERIC) CLINICAL HISTORY: assess for progression of DJD of spine, pt with newbilateral radiation pain through lateral thighs TECHNIQUE: Noncontrast MRI of the lumbar spine, routine protocol COMPARISON: Lumbar spine radiographs 2016. MRI of the lumbar spine 06/11/2013. FINDINGS: Alignment is unremarkable. No suspicious marrow signalalteration. The conus medullaris is normal and terminates at the T12-L1 levelapproximately. There are no significant findings in the retroperitoneal soft tissues. T12-L1, L1-L2, L2-L3: Normal. L3-L4: Mild bilateral facet arthropathy. Minimal disc bulge. No canalstenosis or neuroforaminal narrowing. No significant interval change. L4-L5: Annular disc bulge. Severe bilateral facet arthropathy. Thesefindings contribute to mild central canal stenosis and mild narrowing of theneural foramina. No significant interval change. L5-S1: Disc bulge and mild facet arthropathy again noted. There isinterval enlargement of the left foraminal disc protrusion that contributes tomoderate left-sided neural foraminal narrowing. Canal and right-sided foramen arepatent. IMPRESSION The degenerative changes at L4-L5 and L5-S1 are again identified. Slight interval enlargement of left foraminal disc protrusion at L5-G5arexywrqhus to moderate left-sided neural foraminal narrowing. Comment: The following findings are so common in people without low backpain that while we report their presence, they must be interpreted with cautionand in context of the clinical situation (Reference- Krystlevik et al, [id number]). Findings: (Prevalence in patients without low back pain), discdegeneration (decreased T2 signal, height loss, bulge) (91%), disc T2-signal loss(83%), disc height loss (56%), disc bulge (64%), disc protrusion (32%), annularfissure (38%). I have personally reviewed the image(s) and the residents interpretationand agree with the findings, GORGE LEDEZMA at 11/23/2017 3:02 PM Ragini Unger MD IMG MRI ORDERABLES documented in this encounter Visit Diagnoses Not on filedocumented in this encounter Care Teams Two Way Radio Installer Relationship Specialty Start Date End Date Marguerite Riley MD [facility] [place] [address] PCP - General General Internal Medicine 08/15/17 6/3 documented as of this encounter
--- OUTSIDE RECORDS SUMMARY | 2024-07-12 00:32 | XMS_ITS | Encounter Summary ---
Author Organization [facility] [place] [address] Care Team Providers Care Migratory Farm Hand Name Role Phone Marguerite Riley MD Primary Care Provider [phone] Reason for Referral * Diagnostic Test (Routine) - Closed Specialty Diagnoses / Procedures Referred By Contac t Referred To Contact Radiology Diagnoses Osteoarthritis of spine with radiculopathy, lumbar region Procedures MRI Lumbar Spine wo Contrast (Generic) Marguerite Riley MD [facility] [place] [address] [place] [address] Referral ID Status Reason Start Date Expiration Date V isits Requested Visits Authorized [id number] Closed Specialty Service Requested 11/14/2017 02/12/2018 1 1 Reason for Visit * Diagnostic Test (Routine) - Closed Specialty Diagnoses / Procedures Referred By Contac t Referred To Contact Radiology Diagnoses Osteoarthritis of spine with radiculopathy, lumbar region Procedures MRI Lumbar Spine wo Contrast (Generic) Marguerite Riley MD [facility] [place] [address] [place] [address] Referral ID Status Reason Start Date Expiration Date V isits Requested Visits Authorized [id number] Closed Specialty Service Requested 11/14/2017 02/12/2018 1 1 Encounter Details Date Type Department Care Team (Latest Contact Info) Description 11/23/2017 9:50 AM EST - 11/23/2017 10:09 AM EST Hospital Encounter MRI at [facility] [place] [address] Ragini Unger MD [facility] [place] [address] Osteoarthritis of spine with radiculopathy, lumbar region Discharge Disposition: Home Social History [...] 04/21/2017 06/20/2018 documented as of this encounter Progress Notes * Sandy Lucas RN - 11/17/2017 9:12 AM EST MRI PRE-SEDATION ASSESSMENT NOTE NAME: Tracie Layton AGE: 46 y.o. : 1970 [id number] Female [phone] (home) Telephone Information: Marguerite Riley MD None Allergies Allergen Reactions ??? Bactrim [Sulfamethoxazole-Trimethoprim] Anaphylaxis ??? Aleve [Naproxen Sodium] Rash Per neuro team, patient has tolerated ketorolac in the past ??? Keflex [Cephalexin] Other (See Comments) Racing heart ??? Meloxicam Nausea Only Date/Time of call: November 17, 2017/9:08 AM/ PREVIOUS MRI SCAN? Yes HEIGHT: 5'10 WEIGHT: 280 lbs SCHEDULED SCAN: MRI Lumbar Spine wo Contrast (40 minutes, feet first, supine) SUBJECTIVE: very anxious, wants PO sedation CAN YOU LAY FLAT? yes AIRWAY ISSUES? no DO YOU HAVE ANY INVOLUNTARY MOVEMENTS? no DO YOU HAVE ANY PAIN? Lower back pain DO YOU TAKE PAIN MED ON A DAILY BASIS? no ASSESSMENT: suitable for PO sedation PLAN: ativan 1-2 mg PO ( XXX ) You must have a driver guide present when you check in. This patient has been informed that they require a driver guide to drive them home after this procedure. In the absence of a driver guide, IR will not be able to sedate for your scan. Pt verbalized understanding of these instructions during the pre-procedure education via phone. Yes x [place] of driver guide: Phone number PRIOR SCAN DATE/S SEDATION TYPE SUCCESSFUL 06/17/05 MRI Unknown ?? 09/19/14 MRI None, Pt came late. Tolerated very well. ??11/23/17 MRI ??Ativan 1 mgs po x 2 ??tolerated well ? Revised 12/04/15 documented in this encounter Plan of Treatment Upcoming Encounters Date Type Department Care Team (Late st Contact Info) Description 09/05/2024 9:00 AM EDT Office Visit [place] [address] [facility] [address] documented as of this encounter Procedures Procedure [...] enlargement of left foraminal disc protrusion at L5-C5idthiswhkyb to moderate left-sided neural foraminal narrowing. Comment: The following findings are so common in people without low backpain that while we report their presence, they must be interpreted with cautionand in context of the clinical situation (Reference- Donyak et al, [id number]). Findings: (Prevalence in patients without low back [...] documented in this encounter Visit Diagnoses Diagnosis Osteoarthritis of spine with radiculopathy, lumbar region documented in this encounter Administered Medications Inactive Administered Medications - up to 3 most recent administrations Medication Order MAR Action Action Date Dose Rate Site LORazepam (ATIVAN) tablet 1 mg 1 mg, Oral, 2 TIMES DAILY PRN, 2 doses, Starting on Denita 11/23/17 at 0827, Until Denita 11/23/17 at 1100, Anxiety, Angio/IR (Day of Procedure), Routine Given 11/23/2017 11:00 AM EST 1 mg Given 11/23/2017 10:25 AM EST 1 mg documented in this encounter Care Teams Migratory Farm Hand Relationship Specialty Start Date End Date Marguerite Riley MD [facility] [place] [address] PCP - General General Internal Medicine 08/15/1704/22 documented as of this encounter
--- OUTSIDE RECORDS SUMMARY | 2024-07-12 00:32 | XMS_ITS | Encounter Summary ---
[place] [address] Care Team Providers Care Live Out Nanny Name Role Phone Marguerite Riley MD Primary Care Provider [phone] Reason for Visit * Reason Onset Date Comments Other 11/10/2017 Encounter Details Date Type Department Care Team (Late st Contact Info) Description 11/10/2017 Telephone Internal Medicine at [address] [address] Heather Gibbs Other Social History Tobacco Use Types Packs/Day Years [...] Telephone Encounter - Leah Raines RN - 11/10/2017 3:07 PM EST TC to patient. Radiology safety questions reviewed with patient, then call transferred to schedule MRI. Message left at [facility] regarding MRI in process. * Telephone Encounter - Monet Aldridge - 11/10/2017 2:56 PM EST Patient returning call. States she would still like to be seen at [facility]. If there are any further questions please call pt back. * Telephone Encounter - Leah Raines RN - 11/10/2017 2:09 PM EST TC to patient to inquire if she still wants to be seen there. Message left on identifiable voicemail. * Telephone Encounter - Heather Gibbs - 11/10/2017 9:43 AM EST Message: Ary from [facility] is calling with questions regarding referral from 07/2017. They are waiting for MRI to schedule pt and wondering if patient still wants to be seen. Please call Caller and relationship (if other than patient-full name): Ary Best time to call back: any Ok to leave a message: [yes] Ok to send my- message: [] Offered Appointment: n MA/Nurse contacted via: Message: y Call: n Pager: n documented in this encounter Plan of Treatment Upcoming Encounters Date Type Department Care Team (Late st Contact Info) Description 09/05/2024 9:00 AM EDT Office [place] [address] Gema Oliveira DO [facility] GENER[facility] [place] [address] documented as of this encounter Visit Diagnoses Not on filedocumented in this encounter Care Teams Live Out Nanny Relationship Specialty Start Date End Date Marguerite Riley MD [facility] [place] [address] PCP - General General Internal Medicine 08/15/17 6/3 documented as of this encounter
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
--- OUTSIDE RECORDS SUMMARY | 2024-07-12 00:32 | XMS_ITS | Encounter Summary ---
Author Organization [facility] [place] [address] Care Team Providers Care Poker Manager Name Role Phone Ragini Unger MD Primary Care Provider [phone] Reason for Visit * Reason Comments URI for 5 days Cough for 5 days, day and night, nothing has helped it Shortness of Breath Other chest hurts Generalized Body Aches Chills off and on Encounter Details Date Type Department Care Team (Late st Contact Info) Description 01/05/2017 11:20 AM EST Office Visit Internal Medicine at [address] [address] Basilia Williamson APRN [facility] [place] [address] Acute URI Social History Tobacco Use Types Packs/Day Years [...] Sign Reading Time Taken Comments Blood Pressure 134/87 01/05/2017 11:04 AM EST Pulse 114 01/05/2017 11:04 AM EST Temperature 36.7 ??C (98 ??F) 01/05/2017 11: 04 AM EST Respiratory Rate - - Oxygen Saturation 99% 01/05/2017 11: 04 AM EST Inhaled Oxygen Concentration - - Weight 123.5 kg (272 lb 3.2 oz) 017 11:04 AM EST Height 177.8 cm (5' 10) 01/05/2017 11: 04 AM EST reported Body Mass Index 39.06 01/05/2017 11:04 AM EST documented in this encounter Progress Notes * Basilia Williamson, SUPERVISOR [employer]ISTING DEPARTMENT - 01/05/2017 11:20 AM EST PCP: Ragini Unger MD Chief Complaint Patient presents with ??? URI for 5 days ??? Cough for 5 days, day and night, nothing has helped it ??? Shortness of Breath ??? Other chest hurts ??? Generalized Body Aches ??? Chills off and on SUBJECTIVE: Tracie Layton is a 46 y.o. female who presents for cough, shortness or breath and body aches. She reports that her headache is very bad. Symptoms started 5 days. She reports that she has been takingdaytime cough and cold medicine. Nothing seems to help the symptoms. She has not needed the duoneb.She has been using her inhaler intermittently. She reports shaking after using it. She has history of asthma since she was a child. She smokes 1/2- 1ppd. She has cut back a little bit since she has been. Review of Systems Constitutional: Positive for fatigue. HENT: Positive for congestion, rhinorrhea and sinus pressure. Negative for ear pain. Respiratory: Positive for cough, shortness of breath and wheezing. Cardiovascular: Negative for chest pain and palpitations. Gastrointestinal: Negative for abdominal pain, diarrhea and vomiting. Skin: Negative for rash. Allergies Allergen Reactions ??? Bactrim [Sulfamethoxazole-Trimethoprim] Anaphylaxis ??? Aleve [Naproxen Sodium] Rash Per neuro team, patient has tolerated ketorolac in the past ??? Keflex [Cephalexin] Other (See Comments) Racing heart ??? Meloxicam Nausea Only Current Outpatient Prescriptions Medication Sig Dispense Refill ??? candesartan (ATACAND) 16 mg Tablet Take 1 tablet by mouth daily. 30 tablet 3 ??? cyclobenzaprine (FLEXERIL) 10 mg Tablet Take 1 tablet by mouth 3 times daily as needed for Muscle spasms. 20 tablet 0 ??? omeprazole (PRILOSEC) 40 mg Capsule, Delayed Release(E.C.) Take 40 mg by mouth daily. ??? ipratropium-albuterol (DUONEB) 0.5 mg-3 mg(2.5 mg base)/3 mL Solution for Nebulization Take 0.5mg by nebulization every 4 hours as needed. 60 vial 4 ??? PROAIR HFA 90 mcg/actuation HFA Aerosol Inhaler INHALE 2 PUFFS BY MOUTH EVERY 4 HOURS NEEDED. USE WITH SPACER. 1 Inhaler 3 ??? pramipexole (MIRAPEX) 0.5 mg Tablet Take 1-2 tablets by mouth nightly. Indications: Restless Legs Syndrome 180 tablet 3 No current facility-administered medications for this visit. Patient Active Problem List Diagnosis Code ??? Bilateral occipital neuralgia M54.81 ??? Post concussive syndrome F07.81 ??? Post-traumatic headache G44.309 ??? Persistent mood disorder F34.9 ??? Restless leg syndrome G25.81 ??? Esophageal reflux (GERD) K21.9 ??? Tobacco abuse Z72.0 ??? Asthma J45.909 ??? PTSD (post-traumatic stress disorder) F43.10 ??? Agoraphobia F40.00 ??? HLD (hyperlipidemia) E78.5 ??? ADD (attention deficit disorder) (ADHD) F98.8 ??? Vitamin D deficiency E55.9 ??? Incontinence of urine R32 ??? Back pain M54.9 ??? Trochanteric bursitis of both hips M70.61, M70.62 ??? Abdominal pain R10.9 ??? Hematuria, unspecified R31.9 ??? Vagina bleeding N93.9 ??? Depression F32.9 ??? Headache R51 ??? Morbid obesity with BMI of 40.0-44.9, adult E66.01, Z68.41 ??? Mixed stress and urge urinary incontinence N39.46 ??? Postoperative examination Z09 OBJECTIVE: Vitals: 01/05/17 1104 BP: 134/87 BP Location (NBP): Right arm Patient Position: Sitting BP Cuff Sizes: Large Adult (32-43 cm) Pulse: 114 Temp: 36.7 ??C (98 ??F) TempSrc: Oral SpO2: 99% Weight: (!) 123.5 kg (272 lb 3.2 oz) Height: 177.8 cm (5' 10) PHYSICAL EXAM: Physical Exam Constitutional: She is oriented to person, place, and time. She appears well- developed and well-nourished. HENT: Head: Normocephalic and atraumatic. Right Ear: Tympanic membrane, external ear and ear canal normal. Left Ear: Tympanic membrane, external ear and ear canal normal. Nose: Nose normal. Right sinus exhibits no maxillary sinus tenderness and no frontal sinus tenderness. Left sinus exhibits no maxillary sinus tenderness and no frontal sinus tenderness. Mouth/Throat: Oropharynx is clear and moist. Eyes: Conjunctivae are normal. Pupils are equal, round, and reactive to light. Cardiovascular: Normal rate, regular rhythm and normal heart sounds. Pulmonary/Chest: Effort normal and breath sounds normal. No respiratory distress. She has no wheezes. She has no rales. Lymphadenopathy: She has no cervical adenopathy. Neurological: She is alert and oriented to person, place, and time. Skin: Skin is warm and dry. Psychiatric: She has a normal mood and affect. ASSESSMENT & PLAN: Tracie was seen today for uri, cough, shortness of breath, other, generalized body aches and chills. Diagnoses and all orders for this visit: Acute URI - patient to use inhaler at least 3 times daily to help with breathing. Symptoms ongoing only few days, likely viral, patient to let us know if symptoms get worse or do not improve. documented in this encounter Plan of Treatment Upcoming Encounters Date Type Department Care Team (Late st Contact Info) Description 09/05/2024 9:00 AM EDT Office Visit Internal Medicine at [address] [address] Gema Oliveira, [facility] [place] [address] documented as of this encounter Visit Diagnoses Diagnosis Acute URI Acute upper respiratory infections of unspecified site documented in this encounter Care Teams Poker Manager Relationship Specialty Start Date End Date Ragini Unger MD [facility] [place] [address] PCP - General General Internal Medicine 12/06/16/04/05 documented as of this encounter
--- OUTSIDE RECORDS SUMMARY | 2024-07-12 00:32 | XMS_ITS | Encounter Summary ---
Author Organization [facility] Address [facility] [place] [address] Care Team Providers Care Negative Stripper Name Role Phone Ragini Unger MD Primary Care Provider [phone] Reason for Visit * Reason Comments URI cough and cold, seen last week, not better, feeling worse, coughs until she feels she could pass out, Generalized Body Aches Cough Chills on and off Encounter Details Date Type Department Care Team (Late st Contact Info) Description 01/09/2017 11:20 AM EST Office Visit Internal Medicine at [facility] [address] [place] [address] Jeniffer Schilling PA [address] [facility] INTER[place] [address] Wheezing; Mild intermittent asthma without complication Social History [...] Sign Reading Time Taken Comments Blood Pressure 151/85 01/09/2017 11:12 AM EST Pulse 105 01/09/2017 11:12 AM EST Temperature 36.6 ??C (97.9 ??F) 01/09/2017 11:[address] Respiratory Rate - - Oxygen Saturation 99% 01/09/2017 11:12 AM EST Inhaled Oxygen Concentration - - Weight 124.3 kg (274 lb) 01/09/2017 11:12 AM EST Height 177.8 cm (5' 10) 01/09/2017 11:12 AM EST reported Body Mass Index 39.31 01/09/2017 11:12 AM EST documented in this encounter Patient Instructions * Patient Instructions* Jeniffer Schilling PA - 01/09/2017 11:20 AM EST Start taking Mucinex to thin the mucus that you have in your nose and lungs to loosen up your coughand make it easier for you to get mucus out. Increase your albuterol inhaler to every 4 hours. Increase your Duoneb nebulizers to 4 times daily. Get the chest x-ray today. documented in this encounter Progress Notes * Jeniffer Schilling PA - 01/09/2017 11:20 AM EST PCP: Ragini Unger MD Chief Complaint Patient presents with ??? URI cough and cold, seen last week, not better, feeling worse, coughs until she feels she could pass out, ??? Generalized Body Aches ??? Cough ??? Chills on and off SUBJECTIVE: Tracie Layton is a 46 y.o. female who presents for persisting URI symptoms. Was seen last week [facility]. Symptoms started 8 days ago. PMH significant for GERD, PTSD, chronic back pain, depression, asthma and BMI 39.3. She has been sleeping. OTC cough medicine (Robitussin). Fluids. Inhaler Q6H and nebulizer (duoneb) twice daily. Patient would like a letter excusing her from school today and tonight due to illness. Review of Systems Constitutional: Positive for appetite change (pt reports that she is peckish, but not overly hungry), chills (off and on), fatigue and fever (off and on. Low grade 99). HENT: Positive for congestion, postnasal drip, rhinorrhea and voice change (hoarse voice). Negativefor ear pain, sinus pressure and sore throat. Respiratory: Positive for cough (rarely productive. will have coughing jags where she coughs until she throws up or gets very light headed), chest tightness (up near the top), shortness of breath andwheezing. Cardiovascular: Negative for chest pain. Gastrointestinal: Positive for nausea. Negative for abdominal pain, constipation, diarrhea and vomiting. Musculoskeletal: Positive for arthralgias and myalgias. Skin: Negative for rash. Neurological: Positive for light-headedness and headaches. Negative for dizziness and weakness. Allergies Allergen Reactions ??? Bactrim [Sulfamethoxazole-Trimethoprim] Anaphylaxis [...] Indications: Restless Legs Syndrome 180 tablet 3 Current Facility-Administered Medications Medication Dose Route Frequency Provider Last Rate Last Dose ??? albuterol (PROVENTIL) nebulizer solution 2.5 mg 2.5 mg Nebulization Q6H PRN Jeniffer Schilling PA Patient Active Problem List Diagnosis Code ??? [...] N39.46 ??? Postoperative examination Z09 OBJECTIVE: Vitals: 01/09/17 1112 BP: 151/85 BP Location (NBP): Left arm Patient Position: Sitting BP Cuff Sizes: Large Adult (32-43 cm) Pulse: 105 Temp: 36.6 ??C (97.9 ??F) TempSrc: Oral SpO2: 99% Weight: (!) 124.3 kg (274 lb) Height: 177.8 cm (5' 10) PHYSICAL EXAM: Physical Exam Constitutional: She is oriented to person, place, and time. She appears well- developed and well-nourished. No distress. HENT: Head: Normocephalic and atraumatic. Eyes: Conjunctivae and EOM are normal. No scleral icterus. Neck: Normal range of motion. Cardiovascular: Normal rate, regular rhythm, normal heart sounds and intact distal pulses. Exam reveals no gallop and no friction rub. No murmur heard. Pulmonary/Chest: Effort normal. No respiratory distress. She has wheezes (right sided top to bottomand upper 1/3 on the left. expiratory wheezes only.). She has no rales. Musculoskeletal: Normal range of motion. She exhibits no edema. Lymphadenopathy: Head (right side): Submandibular adenopathy present. Head (left side): Submandibular adenopathy present. She has no cervical adenopathy. Neurological: She is alert and oriented to person, place, and time. Skin: Skin is warm and dry. Psychiatric: She has a normal mood and affect. ASSESSMENT & PLAN: Tracie was seen today for uri, generalized body aches, cough and chills. Diagnoses and all orders for this visit: Wheezing - albuterol (PROVENTIL) nebulizer solution 2.5 mg; Take 3 mLs by nebulization every 6 hours as needed for Wheezing. - XR Chest PA & Lateral (Generic); Future Lung sounds are dramatically improved with office nebulizer. Wheezing is resolved entirely after 5 minutes of finishing nebulizer. While Tracie's symptoms are more fitting with acute asthma exacerbation in the setting of URI, it ispossible that she is developing pneumonia. Will have pt obtain chest x-ray to see if there are indications that the latter is the cause. In the meantime I have instructed the patient to: Increase albuterol MDI to Q4H and increase duoneb nebulizer to 4 times daily. If the x-ray is suggestive of pneumonia, will treat with antibiotics. If the x-ray is negative will add small dose of prednisone to increased inhaler and nebulizer use. Future Appointments Date Time Provider Department Center 01/10/2017 10:00 AM Ori William APRN [facility] 02/24/2017 1:40 PM Ragini Unger MD [facility] 06/12/2017 4:00 PM Gracie Mark MD [facility] Jeniffer Schilling, PAx-jerome re documented in this encounter Plan of Treatment Upcoming Encounters Date Type Department Care Team (Late st Contact Info) Description 09/05/2024 9:00 AM EDT Office Visit Internal Medicine at [address] [address] Gema Oliveira, [facility] GENERAL [place] [address] documented as of this encounter Results * XR Chest PA & Lateral (Generic) (01/09/2017 12:48 PM EST) Anatomical Region Laterality Modality Chest N/A Digital Radiogra phy Impressions 01/09/2017 2:27 PM EST No acute cardiopulmonary process. I have personally reviewed the image(s) and the residents interpretation and agree with the findings, Dahlia Thibodeaux at 01/09/2017 2:27 PM Narrative 01/09/2017 2:27 PM EST EXAMINATION: XR CHEST PA AND LATERAL (GENERIC) CLINICAL HISTORY: URI x 8 days, w/hx of asthma and worsening wheezing TECHNIQUE: PA and lateral chest radiograph. COMPARISON: Chest radiographs 09/13/2015; 06/02/2014. FINDINGS: The lungs are clear. No pneumothorax or pleural effusion. The cardiomediastinal silhouette, jono and pulmonary vasculature are within normal limits. No interval osseous changes. Specifically, unchanged appearance of sclerotic lesion within the proximal aspect of the left humerus. Procedure Note Dahlia Matt MD - 01/09/2017 EXAMINATION: XR CHEST PA AND LATERAL (GENERIC) CLINICAL HISTORY: URI x 8 days, w/hx of asthma and worsening wheezing TECHNIQUE: PA and lateral chest radiograph. COMPARISON: Chest radiographs 09/13/2015; 06/02/2014. FINDINGS: The lungs are clear. No pneumothorax or pleural effusion. Thecardiomediastinal silhouette, jono and pulmonary vasculature are within normal limits. No interval osseous changes. Specifically, unchanged appearance ofsclerotic lesion within the proximal aspect of the left humerus. IMPRESSION No acute cardiopulmonary process. I have personally reviewed the image(s) and the residents interpretationand agree with the findings, Dahlia Thibodeaux at 01/09/2017 2:27 PM Ragini Unger MD IMG DX ORDERABLES documented in this encounter Visit Diagnoses Diagnosis Wheezing Mild intermittent asthma without complication Unspecified asthma Wheezing documented in this encounter Administered Medications Inactive Administered Medications - up to 3 most recent administrations Medication Order MAR Action Action Date Dose Rate Site albuterol (PROVENTIL) nebulizer solution 2.5 mg 2.5 mg, Nebulization, EVERY 6 HOURS PRN, Starting on 01/09/17 at 1136, Until Mon05/07/19 at 1024, Wheezing, Routine Given 01/09/2017 12:07 PM EST 2.5 mg documented in this encounter Care Teams Negative Stripper Relationship Specialty Start Date End Date Ragini Unger MD [facility] GENERAL [place] [address] PCP - General General Internal Medicine 12/06/16 9/2 04/05 documented as of this encounter
--- OUTSIDE RECORDS SUMMARY | 2024-07-12 00:32 | XMS_ITS | Encounter Summary ---
Author Organization [facility] Address [facility] [place] [address] Care Team Providers Care Audit Associate Name Role Phone aRgini Unger MD Primary Care Provider [phone] Reason for Visit * Reason Onset Date Comments Medication Refill 04/19/2017 Encounter Details Date Type Department Care Team (Late st Contact Info) Description 04/19/2017 Refill Internal Medicine at [address] [address] Rosie Justice Social History Tobacco Use Types Packs/Day Years [...] EDT Office Visit Internal Medicine at [address] [address] Gema Oliveira, [facility] [address] [place] [address] documented as of this encounter Visit Diagnoses Not on filedocumented in this encounter Care Teams Audit Associate Relationship Specialty Start Date End Date Ragini Unger MD [facility] [address] GENER[place] [address] PCP - General General Internal Medicine 12/06/16 9/2 04/05 documented as of this encounter
--- OUTSIDE RECORDS SUMMARY | 2024-07-12 00:32 | XMS_ITS | Encounter Summary ---
Author Organization [facility], [facility] Address [facility] [place] [address] Care Team Providers Care Striper Spray Gun Name Role Phone Ragini Unger MD Primary Care Provider [phone] Encounter Details Date Type Department Care Team (Latest Contact Info) Description 2016 11:41 AM EST - 2016 11:59 PM [facility] Hospital Encounter XRay at [address] [place] [address] Ragini Unger MD [facility] GENER[facility] [place] [address] Acute midline low back pain without sciatica Discharge Disposition: Home Social History Tobacco Use [...] Sig Dispensed Refills Start Date End Date predniSONE (DELTASONE) 50 mg TabletIndications:Alix k pain, unspecified back location, unspecified back pain laterality, unspecified chronicity Take 1 tablet by mouth daily for 5 days. 5 tablet 12/06/2016 12/11/2016 cyclobenzaprine (FLEXERIL) 10 mg TabletIndications:Alix k pain, unspecified back location, unspecified back pain laterality, unspecified chronicity Take 1 tablet by mouth 3 times daily as needed for Muscle spasms. 20 tablet 12/06/2016 05/26/2017 omeprazole (PRILOSEC) 40 mg Capsule, Delayed Release(E.C.) Take 40 mg by mouth daily. 04/20/2017 ipratropium-albuterol (DUONEB) 0.5 mg-3 mg(2.5 mg base)/3 mL Solution for Nebulization Take 0.5 mg by nebulization every 4 hours as needed. 60 vial 4 11/28/2016 04/21/2017 PROAIR HFA 90 mcg/actuation HFA Aerosol InhalerIndications:Mi ld intermittent asthma without complication INHALE 2 PUFFS BY MOUTH EVERY 4 HOURS NEEDED. USE WITH SPACER. 1 Inhaler 3 10/04/2016 04/21/2017 omeprazole (PRILOSEC) 40 mg Capsule, Delayed Release(E.C.)Indicati ons:Gastroesophageal reflux disease without esophagitis Take 1 capsule by mouth daily. 90 capsule 3 11/06/2015 01/09/2017 pramipexole (MIRAPEX) 0.5 mg TabletIndications:res tless leg syndrome Take 1-2 tablets by mouth nightly. Indications: Restless Legs Syndrome 180 tablet 3 10/19/2015 04/19/2017 documented as of this encounter Plan of Treatment Upcoming Encounters Date Type Department Care Team (Late st Contact Info) Description 09/05/2024 9:00 AM EDT Office Visit Internal Medicine at [address] [address] [facility] [place] [address] documented as of this encounter Procedures Procedure Name Priority Date/Time Associated Diagnosis Comments XR LUMBAR SPINE 2 OR 3 VIEWS Routine 2016 11:52 AM EST Acute midline low back pain without sciatica documented in this encounter Results * XR Lumbar Spine 2 Or 3 Views (Generic) (2016 11:52 AM EST) Anatomical Region Laterality Modality L-spine N/A Digital Radiogra phy Impressions 2016 12:01 PM EST Mild lower lumbar facet arthropathy, not appreciably changed. Mild degenerative disc disease change at T11-T12. No acute-appearing findings. Narrative 2016 12:01 PM EST EXAMINATION: XR LUMBAR SPINE 2 OR 3 VIEWS (GENERIC) CLINICAL HISTORY: acute on chronic low back pain w/2year hx of no pain TECHNIQUE: AP and lateral views of the lumbar spine. COMPARISON: 09/20/[address] abdomen reconstructions from 02/08/2015. FINDINGS: 5 nonrib-bearing lumbar-type vertebral bodies demonstrate unchanged density, height, and alignment, with slight levocurvature on the frontal projection, as before. No listhesis on the lateral view. No new or increased intervertebral disc space narrowing in the lumbar spine. At T11-T12, mild intervertebral disc space narrowing, endplate sclerosis and productive changes. This area was not imaged on the 2008 radiographs, but present on 02/08/2015 CT reconstructions, not appreciably changed allowing for modality differences. Mild lower lumbar spine facet arthropathy, not appreciably changed, but no significant bony neural foraminal stenosis is identified. Procedure Note Ofelia Vasquez MD - 2016 EXAMINATION: XR LUMBAR SPINE 2 OR 3 VIEWS (GENERIC) CLINICAL HISTORY: acute on chronic low back pain w/2year hx of no pain TECHNIQUE: AP and lateral views of the lumbar spine. COMPARISON: 09/20/[address] abdomen reconstructions from02/08/2015. FINDINGS: 5 nonrib-bearing lumbar-type vertebral bodies demonstrateunchanged density, height, and alignment, with slight levocurvature on the frontal projection, as before. No listhesis on the lateral view. No new orincreased intervertebral disc space narrowing in the lumbar spine. At T11-T12,mild intervertebral disc space narrowing, endplate sclerosis and productivechanges. This area was not imaged on the 2008 radiographs, but present on 02/08/2015CT reconstructions, not appreciably changed allowing for modalitydifferences. Mild lower lumbar spine facet arthropathy, not appreciably changed, but no significant bony neural foraminal stenosis is identified. IMPRESSION Mild lower lumbar facet arthropathy, not appreciably changed. Milddegenerative disc disease change at T11-T12. No acute-appearing findings. Ragini Unger MD IMG DX ORDERABLES documented in this encounter Visit Diagnoses Diagnosis Acute midline low back pain without sciatica documented in this encounter Care Teams Striper Spray Gun Relationship Specialty Start Date End Date Ragini Unger MD [facility] GENER[facility] [place] [address] PCP - General General Internal Medicine 12/06/16 9/2 04/05 documented as of this encounter
--- OUTSIDE RECORDS SUMMARY | 2024-07-12 00:32 | XMS_ITS | Encounter Summary ---
Author Organization [facility] [place] [address] Care Team Providers Care Tunnel Elastic Operator Lockstitch Name Role Phone Ragini Unger MD Primary Care Provider [phone] Encounter Details Date Type Department Care Team (Latest Contact Info) Description 06/06/2017 11:38 AM EDT - 06/06/2017 3:10 PM EDT Hospital Encounter [place] [address] Frankie Fontaine MD [facility] OBST[facility] [address] Discharge Disposition: Home Social History Tobacco Use [...] Sign Reading Time Taken Comments Blood Pressure 124/71 06/06/2017 2:45 PM EDT Pulse 86 06/06/2017 2:45 PM EDT Temperature 36.4 ??C (97.5 ??F) 06/06/2017 2:19 PM ED T Respiratory Rate 20 06/06/2017 2:45 PM EDT Oxygen Saturation 97% 06/06/2017 2:59 PM EDT Inhaled Oxygen Concentration - - [...] closest emergency room or call the hospital blueprint machine operator at [phone] and ask for physician collision repairer covering for your physician. Questions or problems after 5pm or on a weekend: Call the [facility] blueprint machine operator at and ask for the physician collision repairer covering for your doctor. * Patient Instructions* [...] by your doctor. For less pain, use sybj-sie-rljbwod medications such as Tylenol (acetaminophen) or Motrin/Advil [...] scored 7 pts (moderate risk). She indicated [facility] in [place], [place] as her preferred pharmacy. KASEY GONZALEZ MD PGY-3 06/06/2017 documented in this encounter H&P Notes * Kasey Gonzalez MD - 06/06/2017 12:05 PM EDT Inpatient FOOD ANALYST - Admission Interval Note I have reviewed [...] Fontaine MD - 06/06/2017 2:17 PM EDT [facility] [place]ative Note Patient Name: Tracie Layton : [id number] MR#: [id number] Case Date: 06/06/2017 Surgeon: Surgeon(s) and Role: [...] Operative Note Patient Name: Tracie Layton : [id number] MR#: [id number] Case Date: 06/06/2017 Surgeon: Surgeon(s) and Role: [...] AM EDT Office [place] [address] [facility] [place] [address] documented as of this encounter Procedures Procedure [...] Report (06/06/2017 1:55 PM EDT) Final Diagnosis [id number] ?Location: [facility] The signing pathologist has (i) [...] only. ?? shb 06/07/2017 4:32 PM EDT [facility] / Unknown 06/06/2017 1:55 PM EDT 06/06/2017 1:55 PM EDT Frankie Fontaine MD PATHOLOGY/CYTOLOGY O YAMIL Performing Organization Address [facility]/[place] [facility] de Phone Number [facility] [place] [address] * Specimen to Pathology (surgical or derm) (06/06/2017 1:55 PM EDT) AP Specimen 06/06/2017 1:55 PM EDT 06/06/2017 1:55 PM EDT Narrative [facility] - 06/06/2017 1:55 PM EDT Specimen requisition ordered. ??Separate Pathology report to follow Frankie Fontaine MD PATHOLOGY/CYTOLOGY O YAMIL [facility] [place] [address] documented in this encounter Visit Diagnoses Diagnosis Erosion of vaginal mesh- Primary Mechanical complication of genitourinary device, implant, and graft, other documented in this encounter Administered Medications Inactive [...] Day of Surgery (Day of Procedure), Routine sodium chloride 0.9 % flush 5-20 mL [...] Routine documented in this encounter Care Teams Tunnel Elastic Operator Lockstitch Relationship Specialty Start Date End Date Ragini Unger MD [facility] [place] [address] PCP - General Internal Medicine 12/06/16 9/2 04/05 documented as of this encounter
--- OUTSIDE RECORDS SUMMARY | 2024-07-12 00:32 | XMS_ITS | Encounter Summary ---
Author Organization [facility] Address [facility] [place] [address] Care Team Providers Care Energy Control Officer Name Role Phone Ragini Unger MD Primary Care Provider [phone] Encounter Details Date Type Department Care Team (Latest Contact Info) Description 06/21/2017 7:04 AM EDT - 06/21/2017 9:53 AM EDT Hospital Encounter [place] [address] Rickie Pineda MD [facility] [place] [address] Discharge Disposition: Home Social History Tobacco Use [...] Sign Reading Time Taken Comments Blood Pressure 153/108 06/21/2017 8:45 AM EDT jus t woke up Pulse 97 06/21/2017 8:10 AM EDT Temperature - - Respiratory Rate 18 06/21/2017 8:10 AM EDT Oxygen Saturation 98% 06/21/2017 8:10 AM EDT Inhaled Oxygen Concentration - - Weight 121.1 kg (267 lb) 06/21/2017 7:28 AM EDT Height - - Body Mass Index 38.31 06/06/2017 11:45 AM EDT documented in this encounter Discharge Instructions * Discharge Instructions* Abraham Gutierrez RN - 06/21/2017 8:20 AM EDT Please call [phone] before 8pm with problems, questions or concerns, after 5pm call the Hospital at [phone] and ask to speak to the Floor And Wall Applier Liquid receptionist nurse and the glass ribbon machine operator assistant will contact that person for you. Discharge instructions reviewed with patient who expresses understanding. You may have received medications before and/or during your procedure which effects your judgement and reaction time. Do not drive, operate machinery, drink alcoholic beverages or make important decisions for 24 hours. Be careful on stairs as you may be unsteady on your feet. You may eat a regular diet as tolerated. Do not smoke if you are alone. IV site: Slight redness or tenderness is normal, you can use a warm compress if you would like. If tenderness and/or redness increase or if foul drainage occurs, please contact your Doctor. * Attachments The following attachments cannot be sent through Care Everywhere. * EGD (UPPER ENDOSCOPY): POST-OP (UKRAINIAN) documented in this encounter Medications at Time [...] 04/21/2017 09/19/2017 documented as of this encounter H&P Notes * Rickie Pineda MD - 06/21/2017 7:50 AM EDT Gastroenterology and Hepatology Pre-Procedure History and Physical Exam Procedure: EGD: Indication: GERD refractory Patient Active Problem List Diagnosis Code ??? [...] urinary incontinence N39.46 ??? Postoperative examination Z09 ??? Erosion of vaginal mesh T83.711A EXAM: HEENT: Airway examined, oropharynx clear Mallampati Score: II (soft palate, uvula, fauces visible) LUNGS: Clear to auscultation HEART: Regular rate and rhythm, normal S1, S2 ABDOMEN: Normal bowel sounds, soft, non tender, non distended, A/P Proceed with the planned endoscopic procedure. ASA 2 - Patient with mild systemic disease with no functional limitations Sedation Plan: moderate (conscious sedation) Risks and benefits of the procedure explained to the patient. Consent signed. documented in this encounter Plan of Treatment Upcoming Encounters Date Type Department Care Team (Late st Contact Info) Description 09/05/2024 9:00 AM EDT Office Visit Internal Medicine at [address] [id number] [facility] [place] [address] documented as of this encounter Procedures Procedure Name Priority Date/Time Associated Diagnosis Comments SURGICAL PATHOLOGY REPORT Routine 06/21/2017 8:19 AM EDT SPECIMEN TO PATHOLOGY Routine 06/21/2017 8:19 AM EDT SPECIMEN TO PATHOLOGY Routine 06/21/2017 8:19 AM EDT SPECIMEN TO PATHOLOGY Routine 06/21/2017 8:19 AM EDT UPPER GASTROINTESTINAL ENDOSCOPY,WITH BIOPSY SINGLE OR MULTIPLE (WRVU 2.39) 06/21/2017 7:59 AM EDT Gastroesophageal reflux disease with esophagitis EGD, UPPER GI ENDOSCOPY (WRVU 2.09) 06/21/2017 7:59 AM EDT Gastroesophageal reflux disease with esophagitis UPPER GI ENDOSCOPY Routine 06/21/2017 6: 59 AM EDT documented in this encounter Results * Surgical Pathology Report (06/21/2017 8:19 AM EDT) Final Diagnosis [id number] ? Location: 4T; EA07; A The signing pathologist has (i) examined the relevant preparation(s) for the specimen(s) and (ii) rendered or confirmed the diagnosis(es). . ?Surgical Pathology DIAGNOSIS A - Duodenum, ??biopsy: - ??Duodenal mucosa, negative for diagnostic abnormality ??. B - Irregular Z line, ?? biopsy: - Squamocolumnar junctional mucosa (cardia type) with mild chronic inflammation and reactive epithelial change. ??There is no evidence of intestinal metaplasia ? (see Note). Note: Immunostaining for p53 (B1, B2) is wild-type. ?Multiple deeper levels examined. C - Esophagus, ??biopsy: - Squamous mucosa negative for diagnostic abnormality. Electronically signed by: ??Keith Perez MD Verified: ??06/26/2017 ?Pathologist ADDITIONAL STUDIES Immunohistochemistry Studies: Formalin-fixed, paraffin-embedded tissue sections are studied using the polymer technique with appropriate positive and negative controls. ?These IHC studies provide the pathologist with adjunctive diagnostic information. Antibody specificity has been verified by testing antibodies on a series of in-house tissues with known immunohistochemical performance characteristics. The clinical interpretation of any antibody positive staining or its absence is evaluated within the context of clinical presentation, morphology, histopathological criteria and other diagnostic tests. Block ? Antibody ?Result (Positive/Negative) B1, B2 ?? P53 ?see note. CLINICAL INFORMATION Specimen Submitted: A - Bx of duodenum B - Bx of irregular Z line C - Bx of esophagus r/o eoE Clinical History: Patient with GERD and dyspepsia Clinical Diagnosis: Same SPECIMEN PROCESSING A - Labeled/Fixative: Biopsy of duodenum, formalin. Quantity/Size: Four, 0.2-0.4 cm. Tissue Description: ??Soft, ratliff-pink tissue ??. Sections/Processing: (T1) B - Labeled/Fixative: Biopsy irregular Z line, formalin. Quantity/Size: Six, 0.2-0.3 cm. Tissue Description: ??Soft, ratliff-pink tissue ??. Sections/Processing: (T2) . SPECIMEN PROCESSING C - Labeled/Fixative: Biopsy of esophagus, formalin. Quantity/Size: Two, averaging 0.3 cm. Tissue Description: ??Soft, klein-white tissue ??. Sections/Processing: (T1) ??ejr 06/26/2017 2:02 PM EDT [facility] GI Biopsy 06/21/2017 8:19 AM EDT 06/21/2017 8:19 AM EDT GI Biopsy 06/21/2017 8:19 AM EDT 06/21/2017 8:19 AM EDT GI Biopsy 06/21/2017 8:19 AM EDT 06/21/2017 8:19 AM EDT Rickie Pineda MD PATHOLOGY/CYTOLOGY O YAMIL Performing Organization Address City/[facility]/ZIP Co de Phone Number [facility] [place] [address] * Specimen to Pathology (surgical or derm) (06/21/2017 8:19 AM EDT) AP Specimen 06/21/2017 8:19 AM EDT 06/21/2017 8:19 AM EDT Narrative [facility] - 06/21/2017 8:19 AM EDT Specimen requisition ordered. ??Separate Pathology report to follow Rickie Pineda MD PATHOLOGY/CYTOLOGY O YAMIL Performing Organization Address [facility]/ZIP Co de Phone Number [facility] [place] [address] * Specimen to Pathology (surgical or derm) (06/21/2017 8:19 AM EDT) AP Specimen 06/21/2017 8:19 AM EDT 06/21/2017 8:19 AM EDT Narrative [facility] - 06/21/2017 8:19 AM EDT Specimen requisition ordered. ??Separate Pathology report to follow Rickie Pineda MD PATHOLOGY/CYTOLOGY O YAMIL Performing Organization Address [facility] [place] [address] * Specimen to Pathology (surgical or derm) (06/21/2017 8:19 AM EDT) AP Specimen 06/21/2017 8:19 AM EDT 06/21/2017 8:19 AM EDT Narrative [facility] - 06/21/2017 8:19 AM EDT Specimen requisition ordered. ??Separate Pathology report to follow Rickie Pineda MD PATHOLOGY/CYTOLOGY O YAMIL Performing Organization Address [facility] [place] [address] * UPPER GI ENDOSCOPY (06/21/2017 6:59 AM EDT) UPPER GI ENDOSCOPY [facility] Endoscopy Procedure Date: 06/21/2017 6:59 AM ? Patient Name: Tracie Layton ? N: [id number] ? Date of : 1970 ? Age: 46 ? Order #: [id number] ? Instrument Name: [id number] ? Procedure: ? Upper GI endoscopy Indications: ? Heartburn, Suspected esophageal reflux Providers: ? Rickie Pineda MD, Franny Justice, ? VEL, Ivy Mahmodo MD: ?Ragini Unger MD, Scotty Gunn, ? MD Medicines: ? Midazolam 3 mg IV, Fentanyl 150 ? micrograms IV Complications: ? No immediate complications. Procedure: ? The procedure, indications, benefits, ? risks and alternatives were explained ? to the patient. Specifically ? discussed were potential ? complications including, but not ? limited to, bleeding, perforation, ? infection, missing a cancer, and ? adverse medication reactions. The ? Endoscope was introduced through the ? mouth, and advanced to the third part ? of duodenum. The patient tolerated ? the procedure well. The upper GI ? endoscopy was accomplished without ? difficulty. The patient tolerated the ? procedure well. ? Findings: ? The Z-line was irregular and was found 40 cm from the ? incisors. There were a few 1-2 mm question Garza's ? islands above Z line. Biopsies were taken with a cold ? forceps for histology. ? The examined esophagus was normal. Biopsies were ? taken with a cold forceps for histology. ? The entire examined stomach was normal. ? The examined duodenum was normal. Biopsies were taken ? with a cold forceps for histology. ? Moderate Sedation: ? I was present during the intraservice time as ? documented by the sedation RN. Impression: ?- Z-line irregular, 40 cm from the ? incisors. Biopsied. ? - Normal esophagus. Biopsied. ? - Normal stomach. ? - Normal examined duodenum. Biopsied. Recommendation: ?- Await pathology results. ? Attending Participation: ? I personally performed the entire procedure. ? __ Rickie Pineda MD 06/21/2017 8:20:14 AM This report has been signed electronically. Number of Addenda: 0 Note Initiated On: 06/21/2017 6:59 AM PROVATION 06/21/2017 6:59 AM EDT Ragini Unger MD GENERAL SURGICAL ORD ERABLES PROVATION documented in this encounter Visit Diagnoses Not on filedocumented in this encounter Administered Medications Inactive Administered Medications - up to 3 most recent administrations Medication Order MAR Action Action Date Dose Rate Site lactated Ringers infusion 100 mL/hr, Intravenous, CONTINUOUS, Starting on Mon06/21/17 at 0745, Until Mon06/21/17 at 1153, Endoscopy (Day of Procedure) New Bag 06/21/2017 7:45 AM EDT 100 mL/hr 100 mL/hr documented in this encounter Active and Recently Administered Medications Times are shown in EDT. Continuous Medication Order 06/19/2017 06/20/2017 06/21/2017 lactated Ringers infusion 100 mL/hr, Intravenous, CONTINUOUS, Starting on Mon06/21/17 at 0745, Until Mon06/21/17 at 1153, Endoscopy (Day of Procedure) 0745 (New Bag - Prov ider: Ladonna Moran RN) PRN Medication Order 06/19/2017 06/20/2017 06/21/2017 fentaNYL 50 mcg/mL multi-dose injection (CANCELED) ONCE PRN, Starting on Mon06/21/17 at 0801, Until Mon06/21/17 at 1153, Intra-Operative (Intra-Procedure), Routine 0801 (Given - Provid er: Franny Justice RN)0804 (Given - Provider: Franny Justice RN)0807 (Given - Provider: Franny Justice RN) midazolam (PF) (VERSED) 1 mg/mL multi-dose injection (CANCELED) ONCE PRN, Starting on Mon06/21/17 at 0801, Until Mon06/21/17 at 1153, Intra-Operative (Intra-Procedure), Routine 0801 (Given - Provid er: Franny Justice RN)0804 (Given - Provider: Franny Justice RN)0807 (Given - Provider: Franny Justice RN) documented in this encounter Care Teams Energy Control Officer Relationship Specialty Start Date End Date Ragini Unger MD [facility] [place] [address] PCP - General General Internal Medicine 12/06/16 9/2 04/05 documented as of this encounter
--- OUTSIDE RECORDS SUMMARY | 2024-07-12 00:32 | XMS_ITS | Encounter Summary ---
[place] [address] Care Team Providers Care Sheet Metal Layout Mechanic Name Role Phone Ragini Unger MD Primary Care Provider [phone] Reason for Visit * Reason Onset Date Comments Questions 05/29/2017 Encounter Details Date Type Department Care Team (Late st Contact Info) Description 05/29/2017 Telephone Obstetrics [place] [phone] Linh Lee, RN Questions Social History Tobacco Use Types Packs/Day Years [...] encounter Miscellaneous Notes * Telephone Encounter - Linh Lee RN - 05/29/2017 4:13 PM EDT Addendum: Spoke with Dr Richards and he will see her tomorrow at 11 am. Patient called and given information and advised she may have to wait, as he is in the OR. Patient is in agreement with this plan and will go to the ED tonight if pain worsens. * Telephone Encounter - Linh Lee RN - 05/29/2017 11:12 AM EDT TELEPHONE NOTE Caller: Linh Lee RN Reason for call: Attempted to return patient's call. Patient had a urethral suspension done by Dr Richards on 06/08/16. She thinks it may have come undone when she wipes she feels something sharp. She is having some cramping pain. Patient is asking if should be seen. No bleeding spotting or difficulty voiding Plan/Instructions: Advised I will message Dr Richards and call her back with a plan. documented in this encounter Plan of Treatment Upcoming Encounters Date Type Department Care Team (Late st Contact Info) Description 09/05/2024 9:00 AM EDT Office Visit Internal Medicine at [address] [address] Gema Oliveira, [facility] [address] [address] documented as of this encounter Visit Diagnoses Not on filedocumented in this encounter Care Teams Sheet Metal Layout Mechanic Relationship Specialty Start Date End Date Ragini Unger MD [facility] [place] [address] PCP - General General Internal Medicine 12/06/16 9/2 04/05 documented as of this encounter
--- OUTSIDE RECORDS SUMMARY | 2024-07-12 00:32 | XMS_ITS | Encounter Summary ---
Author Organization [facility] Address [facility] [place] [address] Care Team Providers Care Strap Making Machine Operator Name Role Phone Ragini Unger MD Primary Care Provider [phone] Reason for Visit * Reason Comments Follow-up Pelvic Pain I feel like the sli ng has let go. Encounter Details Date Type Department Care Team (Late st Contact Info) Description 05/30/2017 11:00 AM EDT Office Visit Obstetrics [place] [address] Jammie Richards MD [facility] [address] OBSTETRICS [place] [address] Pelvic pain in female; Erosion of implanted vaginal mesh and prosthetic materials, initial encounter Social History Tobacco Use Types Packs/Day [...] Sign Reading Time Taken Comments Blood Pressure 143/91 05/30/2017 10:55 AM EDT Pulse 78 05/30/2017 10:55 AM EDT Temperature 37.1 ??C (98.7 ??F) 05/30/2017 10:55 AM E DT Respiratory Rate - - Oxygen Saturation 100% 05/30/2017 10:55 AM EDT Inhaled Oxygen Concentration - - Weight 124.7 kg (275 lb) 05/30/2017 10:55 AM EDT Height 175.3 cm (5' 9) 05/30/2017 10:55 AM EDT Body Mass Index 40.61 05/30/2017 10:55 AM EDT documented in this encounter Progress Notes * Jammie Richards MD - 05/30/2017 11:00 AM EDT Patient Active Problem List Diagnosis Code ??? [...] urinary incontinence N39.46 ??? Postoperative examination Z09 SUBJECTIVE: Tracie Layton comes in today for evaluation of discomfort at the vaginal area, with a feeling of something poking. She first noted this yesterday. She is s/p mid-urethral sling procedure ~1 year ago. She note increased urine leakage over the past few weeks, both with sudden urge and some with coughing, activity. She has only been sexually active 1-2 times over the past year and does not recall a partner having discomfort with sex. She denies vaginal discharge or bleeding. She did feel some chills last night but has been afebrile today. She felt her pain was too much today and despite having an appointment added on for 11 am, stopped at the [facility] ED. She had reassuring findings on their exam today, I spoke to her examining physician while in the OR. She agreed to come here for her scheduled appointment. She does have alternating diarrhea / constipation. OBJECTIVE: Blood pressure (!) 143/91, pulse 78, temperature 37.1 ??C (98.7 ??F), temperature source Oral, height 175.3 cm (5' 9), weight (!) 124.7 kg (275 lb), last menstrual period 05/05/2017, SpO2 100 %. Results for orders placed or performed in visit on 05/30/17 POCT urine dipstick Result Value Ref Range POC Sp [place] WNL 1.002 - 1.030 POC pH, UA [...] Blood, UA Neg. Negative - Negative niall/uL Bladder Scanner Result Value Ref Range Bladder Scan (mL) 22 mL General: in no distress Back: no CVAT Abomen: Obese, mildly tender in the suprapubic area, no guarding or rebound. No masses or organomegaly but limited by body habitus. No hernias. Pelvic: Normal external genitalia, including urethral meatus and perineum. Vagina: Sling extrusion at the suburethral vagina, full thickness; no surrounding edema, mildly tender. Cervix: normal Bimanual: Uterus is mobile,mildly tender ; no appreciable adnexal masses or tenderness. Exam limited by body habitus. Rectal deferred. ASSESSMENT: Tracie Layton is a 46 y.o. year old woman with: ?? Mesh extrusion from sling. ?? Urinary incontinence, mixed by history. ?? Pelvic pain, unclear etiology. PLAN: ??? Set up excision of the exposed sling. We reviewed that this is not likely to be the source of her pain. ??? We reviewed that the sling excision could worsen her incontinence and that we will have to manage that as a staged approach. ??? Set up pelvic US and CBC. I spent 25minutes total with the patient, with 15 minutes of the time spent [id number] in discussing her diagnosis and reviewing options for treatment. JAMMIE RICHARDS MD Division of Female Pelvic Medicine & Reconstructive Surgery documented in this encounter H&P Notes * Jammie Richards MD - 05/30/2017 11:00 AM EDT Date of Visit: 05/30/2017 Planned Surgery Date: 06/06/17 Planned Procedure: excision of exposed mesh sling, cystourethroscopy Indications/Pre-op Diagnosis: exposed sling HISTORY OF PRESENT ILLNESS: Ms. Layton is a 46 y.o. woman who presents for her preoperative examination. Patient with history of symptomatic mesh extrusion, desires surgical repair. Please see prior encounter notes for more detail. REVIEW OF SYMPTOMS/FUNCTIONAL STATUS: Chest pain: no Shortness of breath: some, due to asthma Can you walk 1/2 mile or more? yes Can you go up more than 2 flights of stairs? yes Patient can dress herself? yes Prepare meals herself? yes Bleeding disorder (h/o nose bleeds, excessive bleeding following a surgical procedure?): no Personal or Family history of blood clots?: no Sexually active?: rarely Last PAP smear: n/a Past anesthesia problems?: no Past Medical History: Diagnosis Date ??? ADHD (attention deficit hyperactivity disorder) ??? Agoraphobia ??? Alcohol abuse ??? Anxiety ??? Asthma ??? Cervical cancer 10/29/2014 Per pt in 2001, in [place], negative paps since? Chronic back pain ??? Depression hx suicide attempt ??? GERD (gastroesophageal reflux disease) ??? H/O suicide attempt 10/29/2014 Overdose in 1999 ??? History of cervical cancer 2002 s/p LEEP??? in [place] ??? HTN (hypertension) ??? Hyperlipidemia ??? Post-traumatic headache 09/29/2014 ??? Restless legs syndrome (RLS) ??? S/P tubal ligation 10/29/2014 Past Surgical History: Procedure Laterality Date ??? CERVIX SURGERY LEEP ??? SECTION ??? PRO COLONOSCOPY, REMV LESN, SNARE N/A 06/11/2015 COLONOSCOPY, POLYPECTOMY, REMOVAL LESION BY SNARE performed by Larry Ryan MD at [facility] ENDOSCOPY ??? PRO SLING OPER STRES INCONTINENCE N/A 06/08/2016 URETHRAL SUSPENSION, SLING\FASCIA OR SYNTHETIC performed by Jammie Richards MD at [facility] MAIN OR ??? PRO UPPER GI ENDOSCOPY, BIOPSY 01/08/2014 EGD WITH BIOPSY performed by Ilya Whitney MD at [facility] ENDOSCOPY Social hx: Allergies Allergen Reactions ??? Bactrim [Sulfamethoxazole-Trimethoprim] Anaphylaxis ??? Aleve [Naproxen Sodium] Rash Per neuro team, patient has tolerated ketorolac in the past ??? Keflex [Cephalexin] Other (See Comments) Racing heart ??? Meloxicam Nausea Only Outpatient Prescriptions Marked as Taking for the 05/30/17 encounter (Office Visit) with Jammie Richards MD Medication Sig Dispense Refill ??? albuterol (PROAIR HFA) 90 mcg/actuation HFA Aerosol Inhaler Inhale 2 puffs into the lungs every4 hours as needed for Wheezing. Use with spacer 1 Inhaler 0 ??? ipratropium-albuterol (DUONEB) 0.5 mg-3 mg(2.5 mg base)/3 mL Solution for Nebulization Take 0.5mg by nebulization every 4 hours as needed. 60 vial 0 ??? pramipexole (MIRAPEX) 0.5 mg Tablet Take 1-2 tablets by mouth nightly. Indications: Restless Legs Syndrome 180 tablet 0 ??? omeprazole (PRILOSEC) 40 mg Capsule, Delayed Release(E.C.) Take 1 capsule by mouth daily. 90 capsule 3 ??? omeprazole (PRILOSEC) 40 mg Capsule, Delayed Release(E.C.) TAKE 1 CAPSULE BY MOUTH DAILY 90 capsule 0 Current Facility-Administered Medications for the 05/30/17 encounter (Office Visit) with Jammie Richards MD Medication Dose Route Frequency Provider Last Rate Last Dose ??? albuterol (PROVENTIL) nebulizer solution 2.5 mg 2.5 mg Nebulization Q6H PRN Schilling, Jeniffer R,PA 2.5 mg at 01/09/17 1207 Blood pressure (!) 143/91, pulse 78, temperature 37.1 ??C (98.7 ??F), temperature source Oral, height 175.3 cm (5' 9), weight (!) 124.7 kg (275 lb), last menstrual period 05/05/2017, SpO2 100 %. EXAM: General: alert/oriented x 3, NAD, cooperative ENT: No lymphadenopathy, pharynx clear Neck: No lymphadenopathy or thyromegaly Chest: clear COR: Regular rate, rhythm Abdomen: obese, mildly tender abdomen Pelvic: negative cough stress test; mesh extrusion as noted in other progress note today IMPRESSION: Tracie Layton is a 46 y.o. woman with mesh extrusion who desires surgical repair. PLAN: ??? We will proceed with the above procedures on 06/06/17. ??? Anesthesia preference: per anesthesia ??? (x) Medications and herbal preparations reviewed Discussed: ( ) Discontinuation of all herbal preparations, vitamin E 7-10 days preop ( ) ASA, NSAIDS, Plavix: ( ) Hormones: ?? (x) Discontinue Solid foods at midnight ??? (x) Clear liquids (water, apple juice, mariam darlene, or black coffee) may be consumed until 2 hours prior to scheduled procedure. Consent: I discussed the planned procedure with the patient, including risks and benefits. We reviewed the consent form, which the patient has signed. As part of our discussion, we reviewed risks including but not limited to infection, bleeding, injury to bladder, urethra. We discussed that we perform cystoscopy to assure no urinary tract injury prior to ending the procedure. We discussed rare risks of nerve injury due to positioning, retraction, or sutures. We also reviewed potential changes in bladder and sexual function, as well as risks or worsening incontinence with excision of a portion of the sling. We reviewed risks of recurrent mesh extrusion. Acute Opioid Therapy Informed Consent: Will sign day of surgery ACUTE OPIOID CONSENT AND RISK ASSESSMENT: Not done today JAMMIE RICHARDS MD Division of Female Pelvic Medicine and Reconstructive Surgery documented in this encounter Plan of Treatment Upcoming Encounters Date Type Department Care Team (Late st Contact Info) Description 09/05/2024 9:00 AM EDT Office [place] [address] Gema Oliveira DO [facility] [place] [address] documented as of this encounter Procedures Procedure Name Priority Date/Time Associated Diagnosis Comments SLING, REVISE\REMOVE\REPLA CE\VAGINAL APPROACH\SYNTHETIC\ FASCIA Routine 05/30/2017 11:58 AM EDT Pelvic pain in female Erosion of implanted vaginal mesh and prosthetic materials, initial encounter BLADDER SCANNER Routine 05/30/2017 Pelvic pain in female POCT URINE DIPSTICK Routine 05/30/2017 Pelvic pain in female documented in this encounter Results * Bladder Scanner (05/30/2017) Bladder Scan (mL) 22 mL Jammie Richards MD URO PROC W/O RFL ORD ERABLES * POCT urine dipstick (05/30/2017) POC Sp [place] WNL 1.002 - 1.030 POC pH, UA [...] documented in this encounter Visit Diagnoses Diagnosis Pelvic pain in female Unspecified symptom associated with female genital organs Erosion of implanted vaginal mesh and prosthetic materials, initial encounter documented in this encounter Care Teams Strap Making Machine Operator Relationship Specialty Start Date End Date Ragini Unger MD [facility] [address] [address] PCP - General General Internal Medicine 12/06/16 9/2 04/05 documented as of this encounter
--- OUTSIDE RECORDS SUMMARY | 2024-07-12 00:32 | XMS_ITS | Encounter Summary ---
[place] [address] Care Team Providers Care Back Tender Fourdrinier Name Role Phone Ragini Unger MD Primary Care Provider [phone] Reason for Referral * Consultation (Routine) - Closed Specialty Diagnoses / Procedures Referred By María Elena mcdaniel Referred To Contact Orthopaedics Diagnoses Acute midline low back pain without sciatica Jeniffer Schilling PA [address] [facility] [place] [address] [facility] [address] [place] [address] Referral ID Status Reason Start Date Expiration Date V isits Requested Visits Authorized [id number] Closed Consult, Test & Treat 12/06/2016 12/06/2017 1 1 Reason for Visit * Reason Comments Other ER for lower back pa in Encounter Details Date Type Department Care Team (Late st Contact Info) Description 12/06/2016 11:00 AM EST Office Visit Internal Medicine at [facility] [address] [place] [address] Jeniffer Schilling PA [address] [facility] [place] [address] Acute midline low back pain without sciatica; Back pain, unspecified back location, unspecified back pain laterality, unspecified chronicity Social History Tobacco Use Types Packs/Day Years [...] Sign Reading Time Taken Comments Blood Pressure 138/85 12/06/2016 11:16 AM EST Pulse 102 12/06/2016 11:16 AM EST Temperature 36.8 ??C (98.2 ??F) 12/06/2016 11:[address] Respiratory Rate - - Oxygen Saturation 99% 12/06/2016 11:16 AM EST Inhaled Oxygen Concentration - - Weight - - Height 177.8 cm (5' 10) 12/06/2016 11:16 AM EST reported Body Mass Index - - documented in this encounter Progress Notes * Jeniffer Schilling PA - 12/06/2016 11:00 AM EST PCP: Ragini Unger MD Chief Complaint Patient presents with ??? Other ER for lower back pain SUBJECTIVE: Tracie Layton is a 45 y.o. female with PMH significant for chronic low back pain who presents for follow up on lower back pain for which she was seen in ER on 12/02/2016. Rx Flexeril and reports thatthis usually works well for her. Does not cite any precipitating activity or injury. She reports that it has been about 2 years since her last flare up. She reports a good experience with the spine clinic and would like to be referred there. Review of Systems Constitutional: Positive for activity change (since 12/01/2016). Negative for chills, fatigue and fever. Respiratory: Negative for cough and shortness of breath. Cardiovascular: Negative for chest pain. Gastrointestinal: Negative for constipation, diarrhea, nausea and vomiting. Genitourinary: Negative. Musculoskeletal: Positive for back pain (low back without sciatica). Negative for arthralgias, joint swelling and myalgias. Skin: Negative for rash. Neurological: Positive for headaches (has hx of headaches, but no worse than usual since back pain began.). Negative for dizziness, weakness, light- headedness and numbness. Hematological: Negative for adenopathy. Does not bruise/bleed easily. Psychiatric/Behavioral: Reports no new or pressing stressors to contribute Allergies Allergen Reactions ??? Bactrim [Sulfamethoxazole-Trimethoprim] Anaphylaxis ??? Aleve [Naproxen Sodium] Rash Per neuro team, patient has tolerated ketorolac in the past ??? Keflex [Cephalexin] Other (See Comments) Racing heart ??? Meloxicam Nausea Only Current Outpatient Prescriptions Medication Sig Dispense Refill ??? cyclobenzaprine (FLEXERIL) 10 mg Tablet Take [...] Indications: Restless Legs Syndrome 180 tablet 3 ??? predniSONE (DELTASONE) 50 mg Tablet Take 1 tablet by mouth daily for 5 days. 5 tablet 0 No current facility-administered medications for this visit. [...] N39.46 ??? Postoperative examination Z09 OBJECTIVE: Vitals: 12/06/16 1116 BP: 138/85 BP Location (NBP): Left arm Patient Position: Sitting BP Cuff Sizes: Large Adult (32-43 cm) Pulse: 102 Temp: 36.8 ??C (98.2 ??F) TempSrc: Oral SpO2: 99% Height: 177.8 cm (5' 10) PHYSICAL EXAM: Physical Exam Constitutional: She is oriented to person, place, and time. She appears well- developed and well-nourished. No distress. HENT: Head: Normocephalic and atraumatic. Eyes: Conjunctivae and EOM are normal. No scleral icterus. Neck: Normal range of motion. Pt has chronic neck pain. Some decreased ROM, which pt states is normal for her. Cardiovascular: Normal rate, regular rhythm, normal heart sounds and intact distal pulses. Exam reveals no gallop and no friction rub. No murmur heard. Pulmonary/Chest: Effort normal. No respiratory distress. She has wheezes (mild expiratory wheezes).She has no rales. She exhibits no tenderness. Abdominal: Soft. There is no tenderness. Musculoskeletal: She exhibits no edema. Lumbar back: She exhibits decreased range of motion, pain and spasm (paraspinous lumbar spasm bilaterlly, worse on right). She exhibits no tenderness and no edema. Lymphadenopathy: She has no cervical adenopathy. Neurological: She is alert and oriented to person, place, and time. Skin: Skin is warm and dry. Psychiatric: She has a normal mood and affect. ASSESSMENT & PLAN: Tracie was seen today for other. Diagnoses and all orders for this visit: Acute midline low back pain without sciatica - Referral to Spine Center - XR Lumbar Spine 2 Or 3 Views (Generic); Future Back pain, unspecified back location, unspecified back pain laterality, unspecified chronicity - cyclobenzaprine (FLEXERIL) 10 mg Tablet; Take 1 tablet by mouth 3 times daily as needed for Muscle spasms. - predniSONE (DELTASONE) 50 mg Tablet; Take 1 tablet by mouth daily for 5 days. Pt reports poor response & side effects from NSAIDs and has been asked to avoid them. Pt encouraged to continue conservative therapies for low back pain: Rest, short frequent walks, Heat/Ice, TENS unit, gentle stretching as reviewed. Will employ short burst of prednisone for antiinflammatory properties as this has worked well for her in past. Future Appointments Date Time Provider Department Center 12/13/2016 8:30 AM Ori William APRN [facility] 12/21/2016 11:30 AM Gracie Mark MD [facility] 12/30/2016 1:00 PM Ragini Unger MD [facility] HERNANDEZ Monson documented in this encounter Plan of Treatment Upcoming Encounters Date Type Department Care Team (Late st Contact Info) Description 09/05/2024 9:00 AM EDT [place] [address] [facility] [place] [address] Scheduled Referrals Name Type Priority Associated Diagnoses Orde r Schedule Referral to Spine Center Outpatient Referral Routine Acute midline low back pain without sciatica Ordered: 12/06/2016 documented as of this encounter Results * [...] Acute midline low back pain without sciatica Back pain, unspecified back location, unspecified back pain laterality, unspecified chronicity Acute midline low back pain without sciatica documented in this encounter Care Teams Back Tender Fourdrinier Relationship Specialty Start Date End Date Ragini Unger MD [facility] [place] [address] PCP - General General Internal Medicine 12/06/16/2 04/05 documented as of this encounter
--- OUTSIDE RECORDS SUMMARY | 2024-07-12 00:32 | XMS_ITS | Encounter Summary ---
[place] [address] Care Team Providers Care Creative Project Manager Name Role Phone Ragini Unger MD Primary Care Provider [phone] Reason for Visit * Reason Onset Date Comments Medication Refill 04/20/2017 Encounter Details Date Type Department Care Team (Late st Contact Info) Description 04/21/2017 Refill Internal Medicine at [address] [address] Miladis Tucker, RN Mild intermittent asthma without complication Social History [...] encounter Miscellaneous Notes * Telephone Encounter - Miladis Tucker RN - 04/21/2017 1:38 PM EDTFrom: Tracie Layton To: Nicolle Crandall MD Sent: 04/20/2017 11:00 AM EDT Subject: Medication Renewal Request Original authorizing provider: MD Tracie AG would like a refill of the following medications: PROAIR HFA 90 mcg/actuation HFA Aerosol Inhaler [NICOLLE CRANDALL MD] ipratropium-albuterol (DUONEB) 0.5 mg-3 mg(2.5 mg base)/3 mL Solution for Nebulization [NICOLLE CRANDALL MD] Preferred pharmacy: [facility] [address] [place], [place] - [address] Comment: Medication renewals requested in this message routed to other providers: omeprazole (PRILOSEC) 40 mg Capsule, Delayed Release(E.C.) [PAM BLAND, BLASTING ENTRYMAN] pramipexole (MIRAPEX) 0.5 mg Tablet [RAGINI UNGER MD] documented in this encounter Plan of Treatment Upcoming Encounters Date Type Department Care Team (Late st Contact Info) Description 09/05/2024 9:00 AM EDT Office Visit Internal Medicine at [place] [id number] Gema Oliveira DO [facility] [address] [place] [address] documented as of this encounter Visit Diagnoses Diagnosis Mild intermittent asthma without complication Unspecified asthma documented in this encounter Care Teams Creative Project Manager Relationship Specialty Start Date End Date Ragini Unger MD [facility] [address] [place] [address] PCP - General General Internal Medicine 12/06/16 9/2 04/05 documented as of this encounter
--- OUTSIDE RECORDS SUMMARY | 2024-07-12 00:32 | XMS_ITS | Encounter Summary ---
Author Organization [facility] [place] [address] Care Team Providers Care Research Investigator Name Role Phone Ragini Unger MD Primary Care Provider [phone] Reason for Visit * Reason Comments Medication Refill Encounter Details Date Type Department Care Team (Late st Contact Info) Description 01/09/2017 Refill [place] [address] Scotty Gunn APRN [facility] [place] [address] Gastroesophageal reflux disease without esophagitis Social History [...] AM EDT Office Visit Internal Medicine at [address] [id number] Gema Oliveira, [facility] [place] [address] documented as of this encounter Visit Diagnoses Diagnosis Gastroesophageal reflux disease without esophagitis Esophageal reflux documented in this encounter Care Teams Research Investigator Relationship Specialty Start Date End Date Ragini Unger MD [facility] [place] [address] PCP - General General Internal Medicine 12/06/16 9/2 04/05 documented as of this encounter
--- OUTSIDE RECORDS SUMMARY | 2024-07-12 00:32 | XMS_ITS | Encounter Summary ---
Author Organization [place] [address] Care Team Providers Care Silo Painter Name Role Phone Marguerite Riley MD Primary Care Provider [phone] Reason for Referral * Diagnostic Test (Routine) - Closed Specialty Diagnoses / Procedures Referred By Contac t Referred To Contact Radiology Diagnoses Osteoarthritis of spine with radiculopathy, lumbar region Procedures MRI Lumbar Spine wo Contrast (Generic) Marguerite Riley MD [facility] [place] [address] [place] [address] Referral ID Status Reason Start Date Expiration Date V isits Requested Visits Authorized [id number] Closed Specialty Service Requested 11/14/2017 02/12/2018 1 1 * Surgical (Routine) - Closed Specialty Diagnoses / Procedures Referred By Contac t Referred To Contact Neurosurgery Diagnoses Osteoarthritis of spine with radiculopathy, lumbar region Marguerite Riley MD [facility] [place] [address] Abby Solis MD [address] [place] [id number] Referral ID Status Reason Start Date Expiration Date V isits Requested Visits Authorized [id number] Closed Consult, Test & Treat 08/15/2017 02/11/2018 1 1 Reason for Visit * Reason Comments Annual Exam Encounter Details Date Type Department Care Team (Latest Contact Info) Description 08/15/2017 8:30 AM EDT Office Visit Internal Medicine at [place] [phone] Marguerite Riley MD [facility] [place] [id number] Encounter for health maintenance examination (Primary Dx); Screening for HIV (human immunodeficiency virus); Nicotine dependence, cigarettes, uncomplicated; Tobacco abuse counseling; Encounter for screening mammogram for malignant neoplasm of breast; Restless legs syndrome; Osteoarthritis of spine with radiculopathy, lumbar region [...] Sign Reading Time Taken Comments Blood Pressure 132/76 08/15/2017 8:33 AM EDT Pulse 95 08/15/2017 8:33 AM EDT Temperature - - Respiratory Rate - - Oxygen Saturation 99% 08/15/2017 8:33 AM EDT Inhaled Oxygen Concentration - - Weight 126.1 kg (278 lb) 08/15/2017 8:33 AM EDT Height 177.8 cm (5' 10) 08/15/2017 8:33 AM EDT Body Mass Index 39.89 08/15/2017 8:33 AM EDT documented in this encounter Patient Instructions * Patient Instructions* Marguerite Riley - 08/15/2017 9:47 AM EDT Screening: We will put in an order for a mammogram at [facility]. Please call them to schedule. Please get your flu shot at a local pharmacy at your earliest convenience Restless legs: Please continue Mirapex 0.5 mg 1-2 tabs at night Start Gabapentin 100mg at night. You may slowly increase to 300mg nightly Sinuses: Please obtain a Neti pot or nasal rinse system If you choose to make your own rinse, use: - ?? to 1 teaspoon of salt (make sure its non-iodized salt) to each 16 ounces (two cups) of warm distilled water or previously boiled and cooled tap water - Some prefer to add an additional ?? teaspoon of baking soda, per cup, to the mixture. Based on your weight and height measurements at your appointment today, your Body Mass Index (BMI) is Body mass index is 39.89 kg/(m^2). The higher your BMI, the higher your risk for health problems like heart disease, high blood pressure, diabetes, and some types of cancers. Below we have included tips to help you achieve a healthy weight. Choose a diet that is: -Rich in vegetables, fruit, whole grains, seafood, legumes, and nuts -Moderate in low- and non-fat dairy products and alcohol -Lower in red and processed meat; and low in sugar sweetened foods, beverages and refined grains. Physical activity: We recommend at least 150 minutes per week (30 minutes, 5 days/week) of moderate intensity. Even basic walking (7-10,000 steps a day) will improve your health. Ask your provider about referrals to Dieticians, Physical therapists, Behavioral therapists or the Bariatric Program. Recommended websites: www.health.gov www.choosemyplate.gov www.thepowerplate.org www.PEX Card.MyTinks Apps: Lose it! ChangePanda documented in this encounter Progress Notes * Marguerite Riley - 08/15/2017 8:30 AM EDT ANNUAL PHYSICAL I. HISTORY a. Reason(s) for Visit: Tracie Layton is 46 y.o. female is here for chronic and acute medical problems and preventive medical care. b. History of Present Illness: Persistent mood disorder She is feeling very stressed, anxious, depressed, and fatigue, which is her baseline. This makes her not want to do anything. She has been to counseling in the past but her therapist retired and she hasn't found anyone new; she's tried many new therapists and has not developed a full connection with anyone. She has been on anti-depressants before but doesn't know how well they worked for her, which is discouraging. Fluoxetine was the most recent. She last tried an anti- depressant about 5 years ago. She is not feeling ready to try any new medications quite yet. She has been passively suicidal in the past (about 9 years ago), but has not had any active thoughts recently. Her desire to be aroun d for her grandchildren and other family members is a deterrent. Post-nasal drip She is bringing up lots of phlegm. She feels is coming from the back of her nose/throat and dripping down, occasionally causing a cough. She feels the urge to clear her throat. She has no sinus pressure or URI symptoms. Restless legs She feels that her restless legs are worse. She feels the urge to kick/move her legs constantly as night and more so during the day now; she also has crawling sensations. She's taking 0.5mg Mirapex x2-3 at night without much benefit. Sleeping difficulty/attention problems She has difficulty falling asleep and has frequent nocturnal awakenings. She gets maybe 4 hours maxof interrupted sleep each night and it very fatigued in the mornings. She only has caffeine in the morning with breakfast. No TV or reading in the bedroom. She's used OTC sleep aids in the past (Z-Quill was best); has used melatonin but didn't feel like it worked. 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 She has difficulty concentrating both in class and at home when working on assignments, as she feels like there's a race in her head. Bilateral leg numbness with balance issues She has new numbness in her legs (bilateral lateral thighs down past her knees) that is worse when she lifts things; she also feels lifting causes her legs to go cold. She feels her balance is also off. She was seen in the [facility] about one month ago. X-ray images were stable at that time, so no further workup was done. She is interested in seeing someone outside of [facility] for a second opinion. Tobacco She feels like she needs to and wants to quit. She feels the biggest barrier is the anxiety around trying to quit plus fear of failure and weight gain. She tried Chantix previously (maybe 7 years ago), but stopped secondary to severe night terrors. She also tried Wellbutrin but did not find it helpful. She has smokers around (including her boyfriend), which is hard because she does not smoke whenalone. Diet She tries to eat healthy. She does take in too much salt. She sometimes overeats secondary to depression. She tries to eat fresh foods and grill a lot. She does eat a lot of peanut butter c. Review of Systems: [facility] Primary Care 08/15/2017 PROMIS 10-Health in [...] USPSTF BRCA testing guideline) PHQ-9 QUESTIONNAIRE (AMB) 08/15/2017 PHQ - 9 Score (Clinic) - PHQ - 9 Score (Patient) 19 (Moderately Severe Depression) Little interest or pleasure (Clinic) - Little interest or pleasure (Patient) Nearly every day Down, depressed, hopeless (Clinic) - Down, depressed, hopeless (Patient) Nearly every day Trouble sleeping (Clinic) - Trouble sleeping (Patient) Nearly every day Tired or no energy (Clinic) - Tired or no energy (Patient) Nearly every day Poor appetite or overeating (Clinic) - Poor appetite or overeating (Patient) More than half the days Feeling like a failure (Clinic) - Feeling like a failure (Patient) Several days Trouble concentrating (Clinic) - Trouble concentrating (Patient) Nearly every day Moving or speaking slowly (Clinic) - Moving or speaking slowly (Patient) Several days Would be better off (Clinic) - Would be better off (Patient) Not at all How difficult are the problems (Clinic) - d. PHx Patient Active Problem List Diagnosis ??? Restless legs syndrome (RLS) ??? GERD (gastroesophageal reflux disease) ??? Osteoarthritis of spine with radiculopathy, lumbar region ??? Erosion of vaginal mesh ??? Postoperative examination ??? Mixed stress and urge urinary incontinence ??? Morbid obesity with BMI of 40.0-44.9, adult ??? Headache ??? Depression hx suicide attempt Past meds: Prozac, Lexapro, Effexor, Clonazepam, [place]. None worked. Has chronic up and down [...] occipital neuralgia ??? Post concussive syndrome 05/31/2014 SH: Social History Social History ??? Marital status: Single Spouse name: N/A ??? Number of children: N/A ??? Years of education: N/A Social History Main Topics ??? Smoking status: Current Every Day Smoker Packs/day: 0.50 Years: 30.00 Types: Cigarettes ??? Smokeless tobacco: Never Used ??? Alcohol use Yes Comment: Occasional ??? Drug use: No ??? Sexual activity: Yes Partners: Male Other Topics Concern ??? 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 Brain Tumor Mother ??? Breast Cancer Maternal Aunt 60 ??? Ovarian Cancer Neg Hx ??? Colorectal Cancer Neg Hx ??? Pancreatic Cancer Neg Hx PREVENTION: Colon cancer screening: N/A PAP/mammo: PAP 2015, mammo 2014 Cholesterol (total/HDL): 2014 (188/33) Diabetes screen: 2015 (fasting glucose 111) HIV: due Hep C (if born 8423-9745): N/A Other STI: declined Tdap: 2012 Flu vaccine: due Seat Belts: regular use Dental exams: not regular care Eye exams: once yearly Advanced directive: due II. PHYSICAL EXAM: BP 132/76 Pulse 95 Ht 177.8 cm (5' 10) Wt (!) 126.1 kg (278 lb) SpO2 99% BMI 39.89 kg/m2 General: alert, oriented, in no acute distress HEENNT: atraumatic, normocephalic, sclera non-icteric, conjunctiva pink, PEERLA, EOMI, canals clear, TMs with normal light reflex, no rhinorrhea, neck supple without LAD, oropharynx clear without exudate, moist mucous membranes, thyroid without nodules Cardiovascular: RRR, normal S1/S2, no murmurs/rubs/gallps, DP pulses 2+ and symmetric Lungs: chest symmetric, normal effort, CTABL though poor air movement Abdomen: +BS, soft, non-tender, non-distended, no organomegaly Extremities: no LUIS ARMANDO MSK: no joint swelling Skin: warm, intact, no bruises, no suspicious lesions Neurologic: CN II-XII intact, strength 5/5 in major muscle groups Psychologic: flat affect, normal thought content, no abnormal behavior during the exam Breast exam: breasts symmetrical, nipples everted without discharge. No skin changes (rashes, lesions, dimpling, retraction). No masses, lumps. Mild tenderness in lateral breasts bilaterally. Axilla without lymphadenopathy. III. MEDICAL DECISION MAKING: Assessment/Plan: Tracie Layton is 46 y.o. female , here for acute and chronic medical conditions and preventative care. Diagnoses and all orders for this visit: Encounter for health maintenance - HIV test - Screening mammogram - Advance directive - Flu shot at outside pharmacy Screening for HIV (human immunodeficiency virus) - HIV Screen, 4th Generation negative Nicotine dependence, cigarettes, uncomplicated - She is in the contemplative phase, as she expresses desire to quit, but is not interested in any quit aids at this time. Tobacco abuse counseling - Patient will follow-up in about 1 month to again discuss quitting options. Encounter for screening mammogram for malignant neoplasm of breast - Mammo Screen CAD and Russ Bilat (Generic); Future Restless legs syndrome - gabapentin (NEURONTIN) 100 mg Capsule; One capsule qhs x 5 d then increase to 2 capsules qhs x 5 day and then increase to 3 capsules. - Mirapex 0.5mg only use 1-2 tabs nightly Osteoarthritis of spine with radiculopathy, lumbar region - Referral to Neurosurgery - MRI Lumbar Spine wo Contrast (Generic); Future Post-nasal drip - Neti pot Persistent mood disorder - Follow-up in one month to discuss anti-depressants Meds reconciled * Ragini Unger MD - 08/15/2017 8:30 AM EDT I have seen the patient and reviewed the resident's above history and I agree with the details as written. The assessment and plan were formulated in discussion with me and I agree with them as documented. Pertinent History: Pt is a 46 yo female with extensive PMH. H/o anxiety, depression, PTSD, ADD, gerd, post concussive syndrome, asthma, incontinence and tob abuse Here for annual exam. Acute issues include -persistent depressed mood. meds have not worked in the past, therapist has left and hasn't established with new therapist. No active SI - restless legs are getting worse, even during the day. On mirapex 0.5mg, taking 2-3/night - difficulty sleeping, frequent awakenings, very fatigued during the day. No improv with melatonin. - trouble focusing, jett on night classes in bookkeeping. - numbness lateral legs, difficulty with balance. Jett with lifting. Legs can feel cold. Spine clinic visit - PND, runny nose. - is interested in stopping smoking, has used chantix in past but gave her nightmares, wonders if she should try again. Also trial of wellbutrin which did not work. Pertinent Exam: Overweight female in NAD. Vital signs unremarkable. Exam as per Dr. Riley. Major issues addressed: HCM Mammo, advance directives, hiv testing. Flu shot at flu clinic PND - suspect allergic, trial neti pot Back pain - chronic, pt is not interested in f/up in our spine clinic, would like to go to [facility] neurology. Will need MRI prior to that visit. 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 Encourage pt to identify therapist. Will have pt f/up in 1 month to readdress medication therapy. documented in this encounter Plan of Treatment Upcoming Encounters Date Type Department Care Team (Late st Contact Info) Description 09/05/2024 9:00 AM EDT Office Visit Internal Medicine at [place] [phone] Gema Oliveira, [facility] [place] [address] Scheduled Referrals Name Type Priority Associated Diagnoses Order Schedule Referral to Neurosurgery Outpatient Referral Routine Osteoarthritis of spine with radiculopathy, lumbar region Ordered: 08/15/2017 documented as of this encounter Procedures Procedure Name Priority Date/Time Associated Diagnosis Comments HIV SCREEN, 4TH GENERATION ([facility]P/APD/NLH) Routine 08/15/2017 10:17 AM EDT Screening for HIV (human immunodeficiency virus) documented in this encounter Results * MRI [...] residents interpretation and agree with the findings, EB LEDEZMA at 11/23/2017 3:02 PM Narrative 11/23/2017 [...] and right-sided foramen are patent. Procedure Note Eb Ledezma MD - 11/23/2017 EXAMINATION: MRI LUMBAR [...] enlargement of left foraminal disc protrusion at [id number] to moderate left-sided neural foraminal narrowing. Comment: The following findings are so common in people without low backpain that while we report their presence, they must be interpreted with cautionand in context of the clinical situation (Reference- Donyak et al, [id number]). Findings: (Prevalence in patients without low back pain), discdegeneration (decreased T2 signal, height loss, bulge) (91%), disc T2-signal loss(83%), disc height loss (56%), disc bulge (64%), disc protrusion (32%), annularfissure (38%). I have personally reviewed the image(s) and the residents interpretationand agree with the findings, EB LEDEZMA at 11/23/2017 3:02 PM Ragini Unger MD IMG MRI ORDERABLES * HIV Screen, 4th Generation (08/15/2017 10:17 AM EDT) HIV Ab/Ag Screen Negative Negative [facility] [...] In Lab Ragini Unger MD CHEMISTRY ORDERABLES [facility] [place] [address] documented in this encounter Visit Diagnoses Diagnosis Encounter for health maintenance examination- Primary Unspecified general medical examination Screening for HIV (human immunodeficiency virus) Special screening examination for other specified viral diseases Nicotine dependence, cigarettes, uncomplicated Tobacco abuse counseling Counseling on substance use and abuse Encounter for screening mammogram for malignant neoplasm of breast Other screening mammogram Restless legs syndrome Restless legs syndrome (RLS) Osteoarthritis of spine with radiculopathy, lumbar region Osteoarthritis of spine with radiculopathy, lumbar region documented in this encounter Care Teams Silo Painter Relationship Specialty Start Date End Date Marguerite Riley MD [facility] [place] [address] PCP - General General Internal Medicine 08/15/17 6/3 documented as of this encounter
--- OUTSIDE RECORDS SUMMARY | 2024-07-12 00:32 | XMS_ITS | Encounter Summary ---
Author Hub Preferred Language Portuguese Marital Status Single Amish Affiliation Unknown Race White Ethnic Group [place] or [place] [address] Care Team Providers Care Head Of Physics Name Role Phone Ragini Unger MD Primary Care Provider [phone] Encounter Details Date Type Department Care Team (Late st Contact Info) Description 04/20/2017 [place]ill [place] [id number] Yovani Glaser RN Social History Tobacco Use Types Packs/Day [...] Telephone Encounter - Yovani Glaser RN - 04/20/2017 11:40 AM EDT Patient calls the office leaving a message on the RN voicemail requesting a refill on her omeprazole. Returned call to patient to make her aware that she has not seen Scotty Benson APRN since 2014, offered to transfer her to the construction secretary to schedule an appointment with Scotty or made her aware she could call and request her refill from her PCP. Patient stated that it would not hurt to schedule an appointment to see Scotty. Patient was transferred to the construction secretary and an appointment was scheduled for 06/01/2017. Will forward refill request to Scotty Gunn APRN documented in this encounter Plan of Treatment Upcoming Encounters Date Type Department Care Team (Late st Contact Info) Description 09/05/2024 9:00 AM EDT Office Visit Internal Medicine at [address] [address] Gema Oliveira, [facility] [place] [address] documented as of this encounter Visit Diagnoses Not on filedocumented in this encounter Care Teams Head Of Physics Relationship Specialty Start Date End Date Ragini Unger MD [facility] [address] [address] PCP - General General Internal Medicine 12/06/16 9/2 04/05 documented as of this encounter
--- OUTSIDE RECORDS SUMMARY | 2024-07-12 00:32 | XMS_ITS | Encounter Summary ---
Author Organization [facility] [place] [address] Care Team Providers Care Wash Mill Operator Name Role Phone Ragini Unger MD Primary Care Provider [phone] Encounter Details Date Type Department Care Team (Late Contact Info) Description 01/09/2017 Orders Only Internal Medicine at [address] [address] Jneiffer Schilling PA [address] [facility] [place] [address] Mild intermittent asthma with acute exacerbation Social History Tobacco Use Types Packs/Day [...] Internal Medicine at [facility] [address] [place] [address] Gema Oliveira, [facility] [place] [address] documented as of this encounter Visit Diagnoses Diagnosis Mild intermittent asthma with acute exacerbation Unspecified asthma, with exacerbation documented in this encounter Care Teams Wash Mill Operator Relationship Specialty Start Date End Date Ragini Unger MD [facility] [place] [address] PCP - General General Internal Medicine 12/06/16 9/2 04/05 documented as of this encounter
--- OUTSIDE RECORDS SUMMARY | 2024-07-12 00:32 | XMS_ITS | Encounter Summary ---
Author Organization [facility] Address [facility] [place] [address] Care Team Providers Care Mobility Specialist Name Role Phone Ragini Unger MD Primary Care Provider [phone] Reason for Visit * Reason Comments Post Op Encounter Details Date Type Department Care Team (Late st Contact Info) Description 07/20/2017 9:45 AM EDT Office Visit Obstetrics [place] [address] Kaylynn Cortes APRN [facility] OBSTETRICS & [place] [address] Post-operative state Social History Tobacco Use Types Packs/Day Years [...] Sign Reading Time Taken Comments Blood Pressure 118/76 07/20/2017 9:49 AM EDT Pulse - - Temperature - - Respiratory Rate 18 07/20/2017 9:49 AM EDT Oxygen Saturation 98% 07/20/2017 9:49 AM EDT Inhaled Oxygen Concentration - - Weight 124.3 kg (274 lb) 07/20/2017 9:49 AM EDT Height 177.8 cm (5' 10) 07/20/2017 9:49 AM EDT Body Mass Index 39.31 07/20/2017 9:49 AM EDT documented in this encounter Progress Notes * Kaylynn Cortes, FOLDING RULES PRINTING MACHINE OPERATOR - 07/20/2017 9:45 AM EDT FEMALE PELVIC MEDICINE AND RECONSTRUCTIVE SURGERY POST OPERATIVE VISIT Patient Active Problem List Diagnosis Code ??? [...] Z09 ??? 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 Spondylosis of lumbar region without myelopathy or radiculopathy M47.816 Date of visit: 07/20/2017 Patient name: Tracie Layton Date of surgery: 06/06/17 Procedure: Excision of exposed sling Pathology: synthetic material, vaginal mass-clinically ?? . ?Gross surgical pathology examination Subjective: Ms. Layton is s/p the above procedures. She has been tolerating a regular diet. She denies nausea and vomiting, and she has been afebrile since surgery. She states that since the exposed mesh has been removed, her leaking is worse now than before her previous surgery last year for her sling. She is having mixed incontinence, and we reviewed today that this surgery was for stress incontinence. She is frustrated by her incontinence. Bladder Function Number of daytime voids: Number of nocturia events: Urinary incontinence since surgery (y/n): yes If yes, Anuradha Incontinence Severity Index: How often do you experience urinary leakage? 0. Never 1. Less than once a month 2. A few times a month 3. A few times a week 4. Every day and/or night Value 4 How much urine do you lose each time? 0. None 1. Drops 2. Small Splashes 3. More Value 3 The Severity Index is the product of the two questions 0 - NONE 1-2 Slight 3-6 Moderate 8-9 Severe 12 Very severe SCORE: 12 If yes, leaks with: Event Presence Event Presence NONE [place] Walking Cold Weather Running Anticipation of going to the lavatory x Cough/Sneeze x First morning void x Lifting x Running water x Laughing x Other Number of pads / day: 5 /day Pad type: Voiding Dysfunction: Symptom Presence NONE Straining to empty Incomplete emptying Weak stream Feeling the urge to void after voiding x Dribbling x Changes in position Difficulty initiating a stream Bowel Function Fecal incontinence since surgery? (stool/gas) no How many fecal incontinence episodes / week? no How often do you have bowel movements? 1/day Any new defecatory problems since surgery?: no IF so which defecatory problem?: Symptom Presence Symptom Presence NONE x Require laxatives regularly Difficulty emptying Less than three bowel movements / week Need to strain Urgency Hard stools Other Loose stools Treatment Outcome Satisfaction How would you describe your level of satisfaction with your treatment outcome? 0. Strongly UNsatisfied 1. UNsatisfied 2. Neither satisfied nor unsatisfied 3. Satisfied 4. Strongly satisfied Value 0 Would you recommend this therapy to a friend?: unsure How much has your treatment outcome met your before treatment expectation? 0. Strongly NOT met my before treatment expectations 1. Not met my before treatment expectations 2. Undecided 3. Met my before treatment expectations 4. Strongly met my before treatment expectations 0 OBJECTIVE: BP 118/76 Resp 18 Ht 177.8 cm (5' 10) Wt (!) 124.3 kg (274 lb) SpO2 98% BMI 39.31 kg/m2 General: normal appearing female, pleasant mood, normal speech Surgical incision(s): well healed. Skin edges well applied. No evidence of erythema or induration. Pelvic: Cough stress test (empty supine): negative External Genitalia: Vulva, Toad Hop's and Bartholin glands normal, urethra without tenderness or mass Vagina: normal, no mesh palpated or visualized Impression: Ms. Layton is a 46 y.o. year old woman now 6 wks s/p above surgery. She is frustrated by the increase in leakage and is hoping to pursue options for treatment. Plan: Encouraged double voiding. Reviewed with Dr. Richards, will start with 3 day bladder diary, which was reviewed with her today. Will likely follow up with urodynamics and other options for her stress incontinence. KAYLYNN CORTES APRN Division of Female Pelvic Medicine/Reconstructive Surgery * Jammie Richards MD - 07/20/2017 9:45 AM EDT I met with Ms. Layton at the time of her post-operative visit with Bhavya Cortes APRN. She is having ongoing urinary incontinence. We discussed plans for a 3-day bladder diary and urodynamic testing if her symptoms persist. JAMMIE RICHARDS MD documented in this encounter Plan of Treatment Upcoming Encounters Date Type Department Care Team (Late st Contact Info) Description 09/05/2024 9:00 AM EDT Office Visit Internal Medicine at [address] [address] Gema Oliveira DO [facility] GENERAL [place] [address] documented as of this encounter Visit Diagnoses Diagnosis Post-operative state Other postprocedural status documented in this encounter Care Teams Mobility Specialist Relationship Specialty Start Date End Date Ragini Unger MD [facility] [address] [address] PCP - General General Internal Medicine 12/06/16 9/2 04/05 documented as of this encounter
--- OUTSIDE RECORDS SUMMARY | 2024-07-12 00:32 | XMS_ITS | Encounter Summary ---
Author Organization [facility] Address [facility] [place] [address] Care Team Providers Care Bartender Manager Name Role Phone Ragini Unger MD Primary Care Provider [phone] Reason for Visit * Reason Comments Follow-up Encounter Details Date Type Department Care Team (Latest Contact Info) Description 06/01/2017 8:30 AM EDT Office [place] [address] Scotty Gunn APRN [facility] DR GASTROENTEROLOGY [place] [address] Gastroesophageal reflux disease without esophagitis; Gastroesophageal reflux disease with esophagitis Social History Tobacco Use Types Packs/Day [...] Sign Reading Time Taken Comments Blood Pressure 136/89 06/01/2017 8:38 AM EDT Pulse 100 06/01/2017 8:38 AM EDT Temperature - - Respiratory Rate - - Oxygen Saturation - - Inhaled Oxygen Concentration - - Weight 124.8 kg (275 lb 3.2 oz) 06/01/2017 8:38 AM EDT Height 177.8 cm (5' 10) 06/01/2017 8:38 AM EDT Body Mass Index 39.49 06/01/2017 8:38 AM EDT documented in this encounter Progress Notes * Scotty Gunn RN - 06/01/2017 8:30 AM EDT _26___minutes of this_32___-minute visit were spent in face to face discussion and/or counseling the patient, regarding symptoms and treatment options as detailed below. Pt is here for follow up regarding progress with medical regimen. I have not seen the patient for three years. Pt has been taking Omeprazole 40mg qd. Was taking prescription but then no further refills. Began taking otc. She has found Omeprazole helpful for her reflux but she still has breakthrough 1-2x per week. She will experience heartburn and n/v. Sometimes can awake during the night with sx. Reviewed diet. She tries to follow a gerd diet and lifestyle modifications. Head of bed elevated. Weight stable. No dysphagia, odynophagia, ent concerns. No pre/post-prandial sx. The last few weeks has been having loose stools. ?otc prilosec. Normally has one stool per day. No blood in stool. Having lower abdominal cramping and pressure. This sx is new for her. Having tvuand blood work today.(cbc, cmp, tsh). No urinary sx. Pt having bladder sling corrected next week. 2014 colonoscopy. Redundant and tortuous sigmoid. One HP in sigmoid. Plan: 1. Gerd: omeprazole 40mg bid, 30 minutes before breakfast and supper. gerd diet and lifestyle modifications. Upper endoscopy. 2. Loose stools: ?otc prilosec. Will stop and resume prescription ppi. Low fodmap diet. Bentyl 10mgqid prn. (may also help abdominal discomfort) If sx do not improve consider further testing. Complete tvu and blood work today. 3. Gif in 6-8 weeks; if sx do not improve we agreed pt would contact via my . documented in this encounter Plan of Treatment Upcoming Encounters Date Type Department Care Team (Late st Contact Info) Description 09/05/2024 9:00 AM EDT Office Visit Internal Medicine at [address] [address] Gema Oliveira, [facility] GENERAL INTER[place] [address] Scheduled Orders Name Type Priority Associated Diagnoses Orde r Schedule UPPER GI ENDOSCOPY Procedures Routine Gastroesophageal reflux disease with esophagitis Ordered: 06/01/2017 documented as of this encounter Visit Diagnoses Diagnosis Gastroesophageal reflux disease without esophagitis Esophageal reflux Gastroesophageal reflux disease with esophagitis documented in this encounter Care Teams Bartender Manager Relationship Specialty Start Date End Date Ragini Unger MD [facility] GENERAL [place] [address] PCP - General General Internal Medicine 12/06/16 9/2 04/05 documented as of this encounter
--- OUTSIDE RECORDS SUMMARY | 2024-07-12 00:32 | XMS_ITS | Encounter Summary ---
[place] [address] Care Team Providers Care Facilities Maintenance Worker Name Role Phone Ragini Unger MD Primary Care Provider [phone] Reason for Visit * Reason Onset Date Comments Medication Refill 04/20/2017 Encounter Details Date Type Department Care Team (Late st Contact Info) Description 04/21/2017 Refill Internal Medicine at [address] [phone] Miladis Tucker, RN Social History Tobacco Use Types Packs/Day [...] Encounter - Miladis Tucker RN - 04/21/2017 1:39 PM EDTFrom: Tracie Layton To: Ragini Unger MD Sent: 04/20/2017 11:00 AM EDT Subject: Medication Renewal Request Original authorizing provider: MD Tracie HARRELL would like a refill of the following medications: pramipexole (MIRAPEX) 0.5 mg Tablet [RAGINI UNGER MD] Preferred pharmacy: [facility] [address] [place] [address] [facility] [address] Comment: Medication renewals requested in this message routed to other providers: omeprazole (PRILOSEC) 40 mg Capsule, Delayed Release(E.C.) [PAM BLAND APRN] PROAIR HFA 90 mcg/actuation HFA Aerosol Inhaler [JUNITO CRANDALL MD] ipratropium-albuterol (DUONEB) 0.5 mg-3 mg(2.5 mg base)/3 mL Solution for Nebulization [JUNITO CRANDALL MD] documented in this encounter Plan of Treatment Upcoming Encounters Date Type Department Care Team (Late st Contact Info) Description 09/05/2024 9:00 AM EDT Office Visit Internal Medicine at [address] [address] Gema Oliveira DO [facility] [address] [address] documented as of this encounter Visit Diagnoses Not on filedocumented in this encounter Care Teams Facilities Maintenance Worker Relationship Specialty Start Date End Date Ragini Unger MD [facility] [place] [address] PCP - General General Internal Medicine 12/06/16 9/2 04/05 documented as of this encounter
--- OUTSIDE RECORDS SUMMARY | 2024-07-12 00:32 | XMS_ITS | Encounter Summary ---
Author Organization [facility] Address [facility] [place] [address] Care Team Providers Care Rail Loader Name Role Phone Ragini Unger MD Primary Care Provider [phone] Reason for Visit * Reason Comments Edema Bilateral leg edema. Fatigue Other White Finger nails. Encounter Details Date Type Department Care Team (Late st Contact Info) Description 05/26/2017 1:00 PM EDT Office Visit Internal Medicine at [facility] [address] [place] [address] Jeniffer Schilling PA [address] [facility] [place] [address] Pedal edema; Fatigue, unspecified type Social History Tobacco Use Types [...] Sign Reading Time Taken Comments Blood Pressure 126/82 05/26/2017 12:54 PM EDT Pulse 93 05/26/2017 12:54 PM EDT Temperature 36.9 ??C (98.4 ??F) 05/26/2017 1 2:54 PM EDT Respiratory Rate 20 05/26/2017 12:5 4 PM EDT Oxygen Saturation 99% 05/26/2017 12: 54 PM EDT Inhaled Oxygen Concentration - - Weight 124.5 kg (274 lb 6.4 oz) 017 12:54 PM EDT Height - - Body Mass Index 39.37 01/09/2017 11:12 AM EST documented in this encounter Patient Instructions * Patient Instructions* Jeniffer Schilling PA - 05/26/2017 1:16 PM EDT Limit salt intake to no more than 2000 mg per day. Keep a food journal for 3-5 days to determine salt intake. [facility] Leg and Ankle Edema: Care Instructions Your Care Instructions Swelling in the legs, ankles, and feet is called edema. It is common after you sit or stand for a while. Long plane flights or car rides often cause swelling in the legs and feet. You may also have swelling if you have to stand for long periods of time at your job. Problems with the veins in the legs (varicose veins) and changes in hormones can also cause swelling. Sometimes the swelling in the ankles and feet is caused by a more serious problem, such as heart failure, infection, blood clots, or liver or kidney disease. Follow-up care is a sandhu part of your treatment and safety. Be sure to make and go to all appointments, and call your doctor if you are having problems. It???s also a good idea to know your test results and keep a list of the medicines you take. How can you care for yourself at home? ?? If your doctor gave you medicine, take it as prescribed. Call your doctor if you think you are having a problem with your medicine. ?? Whenever you are resting, raise your legs up. Try to keep the swollen area higher than the levelof your heart. ?? Take breaks from standing or sitting in one position. ?? Walk around to increase the blood flow in your lower legs. ?? Move your feet and ankles often while you stand, or tighten and relax your leg muscles. ?? Wear support stockings. Put them on in the morning, before swelling gets worse. ?? Eat a balanced diet. Lose weight if you need to. ?? Limit the amount of salt (sodium) in your diet. Salt holds fluid in the body and may increase swelling. When should you call for help? Call 911 anytime you think you may need emergency care. For example, call if: ?? You have symptoms of a blood clot in your lung (called a pulmonary embolism). These may include: ?? Sudden chest pain. ?? Trouble breathing. ?? Coughing up blood. Call your doctor now or seek immediate medical care if: ?? You have signs of a blood clot, such as: ?? Pain in your calf, back of the knee, thigh, or groin. ?? Redness and swelling in your leg or groin. ?? You have symptoms of infection, such as: ?? Increased pain, swelling, warmth, or redness. ?? Red streaks or pus. ?? A fever. Watch closely for changes in your health, and be sure to contact your doctor if: ?? Your swelling is getting worse. ?? You have new or worsening pain in your legs. ?? You do not get better as expected. Where can you learn more? Visit our [employer] information library at [email or web address] Education Learningo You can also view health information on ONOFFMIX (?), your personal patient account. Log in or sign up today. Enter N696 in the search box to learn more about Leg and Ankle Edema: Care Instructions. ?? [id number] mth sense. Care instructions adapted under license by [facility]. This care instruction is for use with your licensed healthcare professional. If you have questions about a medical condition or this instruction, always ask your healthcare professional. [employer]th sense disclaims any warranty or liability for your use of this information. Content Version: 11.0.668730; Current as of: April 15, 2016 [facility] Learning About Using Compression Stockings What are compression stockings? Compression stockings may help ease symptoms and prevent problems caused by things like varicose veins, skin ulcers, and deep vein thrombosis. There are different types of stockings, so use the kind that your doctor recommends for you. You can get them from a medical supply store with a doctor's prescription. Or you can buy them without a prescription at some drugstores. These stockings are the most common treatment for varicose veins. They help the blood circulate in your legs. This can prevent skin ulcers and keep blood from building up in the legs. Prescription stockings are tightest at the foot. They get less and less tight farther up on your legs. The kind you buy without a prescription have blue crabber elastic. So the pressure is even all the way up the leg. These don't cost as much. But they don't provide the compression you need to treat serious symptoms or prevent skin ulcers. How do you use compression stockings? ?? If your stockings are new, you may want to wash them before you put them on. This can make them more flexible and easier to put on. It's a good idea to wash them by hand. ?? Most of the time it's best to put on your stockings early in the morning. This is when you have the least swelling in your legs. ?? Put silicone lotion (such as ALPS) or talcum powder on your legs to help the stockings slide on.If your stockings contain latex, or you aren't sure if they contain latex, do not use other types of lotions or creams on your legs when you wear the stockings. You may use other lotions or creams when you are not wearing the stockings. ?? Sit in a chair with a back while you put on the stockings. This gives you something to lean against as you pull them up. ?? How to put on stockings: ?? Turn your stocking inside out. Then put your toe in as far as it will go. ?? Readjust the stocking by folding it back onto itself at the ankle. Then hold both sides of the folded stocking. ?? Pull toward your body as far as you can. ?? Fold back the stocking again farther up on your leg. Then pull the stocking up to that point. ?? Repeat folding back and pulling until the stocking is in the right place. ?? You may want to wear rubber gloves. They can help you hold the stockings better. ?? If your stockings don't have toes, use a silk slip sock. (You can get one from your medical supplier.) This will help the stocking slide over your foot better. When you're done, pull off the sock through the open toe. ?? If you still can't get your stockings on, you may want to use a stocking han. This is a metal device that holds the stocking open while you step into it. It is often recommended for people who have problems grasping, leaning, or pulling. Before you buy one, try it first. Some people find them hard to use. What else should you know about compression stockings? ?? You will probably need to buy a new pair every 4 to 6 months. ?? They can be uncomfortable if you wear them all day. They are hot and may be hard to put on. ?? It is important to think about the pros and cons of stockings. You may not like them. But they may help relieve symptoms and prevent future problems. Where can you learn more? Visit our health information library at [email or web address]/[employer] Education Learningo You can also view health information on ONOFFMIX (?), your personal patient account. Log in or sign up today. Enter J166 in the search box to learn more about Learning About Using Compression Stockings. ?? [id number] mth sense. Care instructions adapted under license by [facility]. This care instruction is for use with your licensed healthcare professional. If you have questions about a medical condition or this instruction, always ask your healthcare professional. mth sense disclaims any warranty or liability for your use of this information. Content Version: 11.0.509816; Current as of: April 23, 2016 documented in this encounter Progress Notes * Jeniffer Schilling PA - 05/26/2017 1:00 PM EDT PCP: Ragini Unger MD Chief Complaint Patient presents with ??? Edema Bilateral leg edema. ??? Fatigue ??? Other White Finger nails. SUBJECTIVE: Tracie Layton is a 46 y.o. female who presents for White fingernail beds. Pedal edema. Has had this for a long time. Drinking increased amounts of water. Reports probalby too much salt. Not drinking soda any more. One cup of coffee per day. Still smoking. Wants to quit. Lives with a smoker and sees this as her biggest barrier to quitting. Review of Systems Allergies Allergen Reactions ??? Bactrim [Sulfamethoxazole-Trimethoprim] Anaphylaxis ??? Aleve [Naproxen Sodium] Rash Per neuro team, patient has tolerated ketorolac in the past ??? Keflex [Cephalexin] Other (See Comments) Racing heart ??? Meloxicam Nausea Only Current Outpatient Prescriptions Medication Sig Dispense Refill ??? albuterol (PROAIR [...] CAPSULE BY MOUTH DAILY 90 capsule 0 ??? candesartan (ATACAND) 16 mg Tablet Take 1 tablet by mouth daily. 30 tablet 3 Current Facility-Administered Medications Medication Dose [...] N39.46 ??? Postoperative examination Z09 OBJECTIVE: Vitals: 05/26/17 1254 BP: 126/82 Pulse: 93 Resp: 20 Temp: 36.9 ??C (98.4 ??F) TempSrc: Oral SpO2: 99% Weight: (!) 124.5 kg (274 lb 6.4 oz) PHYSICAL EXAM: Physical Exam ASSESSMENT & PLAN: Tracie was seen today for edema, fatigue and other. Diagnoses and all orders for this visit: Pedal edema Fatigue, unspecified type - CBC (with Diff); Future - Comprehensive metabolic panel (non-fasting); Future - TSH; Future Reduce salt. Compression stockings. Continue drinking lots of water. Future Appointments Date Time Provider Department Center 06/01/2017 8:30 AM Scotty Gunn APRN [facility] 06/12/2017 4:00 PM Gracie Mark MD [facility] 06/16/2017 1:00 PM Ragini Unger MD [facility] HERNANDEZ Monson documented in this encounter Plan of Treatment Upcoming Encounters Date Type Department Care Team (Late st Contact Info) Description 09/05/2024 9:00 AM EDT Office Visit Internal Medicine at [address] [id number] Gema Oliveira DO [facility] [place] [address] documented as of this encounter Visit Diagnoses Diagnosis Pedal edema Edema Fatigue, unspecified type documented in this encounter Care Teams Rail Loader Relationship Specialty Start Date End Date Ragini Unger MD [facility] [address] [place] [address] PCP - General General Internal Medicine 12/06/16/2 04/05 documented as of this encounter
--- OUTSIDE RECORDS SUMMARY | 2024-07-12 00:32 | XMS_ITS | Encounter Summary ---
Author Organization [facility] Address [facility] [place] [address] Care Team Providers Care Apartment Rental Clerk Name Role Phone Ragini Unger MD Primary Care Provider [phone] Encounter Details Date Type Department Care Team (Late st Contact Info) Description 06/21/2017 8:00 AM EDT - 06/21/2017 8:30 AM EDT [place] [address] Rickie Pineda MD [facility] DR GASTROENTEROLOGY [address] EGD, UPPER GI ENDOSCOPY (WRVU 2.09) Social History Tobacco Use Types Packs/Day Years [...] - 06/21/2017 8:20 AM EDT Please call [phone] before 8pm with problems, questions or concerns, after 5pm call the Hospital at [phone] and ask to speak to the Clinical Biochemical Geneticist front office coordinator and the hot end operator will contact that person for you. Discharge [...] Care Everywhere. * EGD (UPPER ENDOSCOPY): POST-OP (ROMANSH) documented in this encounter Medications at Time [...] AM EDT Office Visit [place] [address] [facility] [place] [address] documented as of this encounter Procedures Procedure [...] Report (06/21/2017 8:19 AM EDT) Final Diagnosis [id number] ? Location: 4T; EA07; A The signing [...] Sections/Processing: (T1) ??ejr 06/26/2017 2:02 PM EDT [facility] GI Biopsy 06/21/2017 8:19 AM EDT 06/21/2017 8:19 AM EDT GI Biopsy 06/21/2017 8:19 AM EDT 06/21/2017 8:19 AM EDT GI Biopsy 06/21/2017 8:19 AM EDT 06/21/2017 8:19 AM EDT Rickie Pineda MD PATHOLOGY/CYTOLOGY O YAMIL Performing Organization Address [facility] Co de Phone Number [facility] [place] [address] * Specimen to Pathology (surgical or derm) (06/21/2017 8:19 AM EDT) AP Specimen 06/21/2017 8:19 AM EDT 06/21/2017 8:19 AM EDT Narrative [facility] - 06/21/2017 8:19 AM EDT Specimen requisition ordered. ??Separate Pathology report to follow Rickie Pineda MD PATHOLOGY/CYTOLOGY O YAMIL Performing Organization Address [facility] Co de Phone Number [facility] [place] [address] * Specimen to Pathology (surgical or derm) (06/21/2017 8:19 AM EDT) AP Specimen 06/21/2017 8:19 AM EDT 06/21/2017 8:19 AM EDT Narrative [facility] - 06/21/2017 8:19 AM EDT Specimen requisition ordered. ??Separate Pathology report to follow Rickie Pineda MD PATHOLOGY/CYTOLOGY O YAMIL Performing Organization Address [facility] [place] [address] * Specimen to Pathology (surgical or derm) (06/21/2017 8:19 AM EDT) AP Specimen 06/21/2017 8:19 AM EDT 06/21/2017 8:19 AM EDT Narrative [facility] - 06/21/2017 8:19 AM EDT Specimen requisition ordered. ??Separate Pathology report to follow Rickie Pineda MD PATHOLOGY/CYTOLOGY O YAMIL Performing Organization Address [facility] [place] [address] * UPPER GI ENDOSCOPY (06/21/2017 6:59 AM EDT) UPPER GI ENDOSCOPY [facility] Procedure Date: 06/21/2017 6:59 AM ? Patient Name: Tracie Layton ? N: [id number] ? Date of : 1970 ? Age: 46 ? Order #: [id number] ? Instrument Name: [id number] ? Procedure: ? Upper GI endoscopy Indications: ? Heartburn, Suspected esophageal reflux Providers: ? Rickie Pineda MD, Franny Justice, ? VEL, Ivy Mahmood MD: ?Ragini Unger MD, Scotty Gunn, ? [...] PROVATION documented in this encounter Visit Diagnoses Diagnosis Gastroesophageal reflux disease with esophagitis documented in this encounter Administered Medications Inactive Administered Medications - up to 3 most recent administrations Medication Order MAR Action Action Date Dose Rate Site fentaNYL 50 mcg/mL multi-dose injection ONCE PRN, Starting on Mon06/21/17 at 0801, Until Mon06/21/17 at 1153, Intra-Operative (Intra-Procedure), Routine Given 06/21/2017 8:07 AM EDT 50 mcg Right Arm Given 06/21/2017 8:04 AM EDT 50 mcg Ri ght Arm Given 06/21/2017 8:01 AM EDT 50 mcg Ri ght Arm lactated Ringers infusion 100 mL/hr, Intravenous, CONTINUOUS, Starting on Mon06/21/17 at 0745, Until Mon06/21/17 at 1153, Endoscopy (Day of Procedure) New Bag 06/21/2017 7:45 AM EDT 100 mL/hr 100 mL/hr midazolam (PF) (VERSED) 1 mg/mL multi-dose injection ONCE PRN, Starting on Mon06/21/17 at 0801, Until Mon06/21/17 at 1153, Intra-Operative (Intra-Procedure), Routine Given 06/21/2017 8:07 AM EDT 1 mg Given 06/21/2017 8:04 AM EDT 1 mg Given 06/21/2017 8:01 AM EDT 1 mg documented in this encounter Active and [...] 0801 (Given - Provid er: Franny Justice RN)08 (Given - Provider: Franny Justice RN)0807 (Given - Provider: Franny Justice RN) midazolam (PF) (VERSED) 1 mg/mL multi-dose injection (CANCELED) ONCE PRN, Starting on Mon06/21/17 at 0801, Until Mon06/21/17 at 1153, Intra-Operative (Intra-Procedure), Routine 0801 (Given - Provid er: Franny Justice RN)0804 (Given - Provider: Franny Justice RN)0807 (Given - Provider: Franny Justice RN) documented in this encounter Care Teams Apartment Rental Clerk Relationship Specialty Start Date End Date Ragini Unger MD [facility]INE [address] PCP - General General Internal Medicine 12/06/1607/22 documented as of this encounter
--- OUTSIDE RECORDS SUMMARY | 2024-07-12 00:32 | XMS_ITS | Encounter Summary ---
[place] [address] Care Team Providers Care Insurance Policy Issue Clerk Name Role Phone Marguerite Riley MD Primary Care Provider [phone] Reason for Visit * Reason Onset Date Comments Prior Authorization 08/04/2017 Encounter Details Date Type Department Care Team (Late st Contact Info) Description 08/04/2017 Tele[place] [address] Radha Brown CMA GASTROENTEROLOGY DEPT Prior Authorization Social History Tobacco Use Types [...] Telephone Encounter - Radha Brown CMA - 09/13/2018 2:54 PM EDT Sent an appeal * Telephone Encounter - Radha Brown CMA - 08/04/2017 7:44 AM EDT Medication Prior Authorization 4L Gastroenterology / [place] [address] Subscriber Insurance: [place] medicaid Phone: Fax: Physician: Scotty Del Rosario Return Pharmacy: [facility] Telephone [phone] Medication Requested: Omeprazole Strength: 40 mg Frequency: BID Disp.: 180 Refills: 3 Currently taking: no Diagnosis for this medication: GERD ICD-10 code: K21.9 Prior medications trialed in this patient: Omeprazole QD Medication: Outcome/Adverse Reactions: treatment failure Decision: approved Tracking number/Case number/Reference number: [id number] Effective date: Start: 08/03/2017 End: 08/03/2018 documented in this encounter Plan of Treatment Upcoming Encounters Date Type Department Care Team (Late st Contact Info) Description 09/05/2024 9:00 AM EDT Office Visit Internal Medicine at [place] [id number] Gema Oliveira DO [facility] [place] [address] documented as of this encounter Visit Diagnoses Not on filedocumented in this encounter Care Teams Insurance Policy Issue Clerk Relationship Specialty Start Date End Date Marguerite Riley MD [facility] [address] [address] PCP - General General Internal Medicine 08/15/1704/22 documented as of this encounter
--- OUTSIDE RECORDS SUMMARY | 2024-07-12 00:32 | XMS_ITS | Encounter Summary ---
Author Organization [facility] Address [facility] [place] [address] Care Team Providers Care Cutter Operator Asbestos Shingle Name Role Phone Ragini Unger MD Primary Care Provider [phone] Encounter Details Date Type Department Care Team (Late st Contact Info) Description 06/06/2017 1:09 PM EDT Anesthesia Event Outpatient [place] [address] Zulma Cid MD [facility] [place] [address] Jose Ramon Meeks [facility] [place] [address] Anesthesia Record Procedure Summary Procedure Name Responsible Anesthesiologist Anesthesia Start Time Anesthesia Stop Time SLING, REVISEOR REMOVE, REPLACE, VAGINALAPPROACH, SYNTHETIC\FASCIA (WRVU 11.15) (Vagina ) Zulma Cid MD 06/06/17 1309 06/06/17 1427 Events Date Time Event Comment 06/06/2017 1309 Start 1313 AN Verify 1313 An Start Data 1319 An Induction 1321 An Intubation 1326 Anesthesia Ready 1405 Extubation/LMA Out Yellow op a in 1418 an stop data OPA Out due to coughing, some obstruction and desats, nasal trumpet in L nare 30 F, better air exchange 1426 Recovery or ICU Handoff [place] ent care was transferred to the destination unit staff after review of the patient's medical history, current anesthetic/surgical status and plan, according to the Provider Handoff Checklist. 1427 Stop Transferred to same day surgery on O2 via facemask, ,ventilating well with nasal airway all vital signs stable. Report given to RN 1445 Meds Name Total Midazolam 2 mg fentaNYL 50 mcg Propofol 350 mg Propofol INF 386.57 mg Dexmedetomidine 16 mcg Dexamethasone 4 mg Ondansetron 4 mg Ketorolac 30 mg ePHEDrine 5 mg clindamycin (CLEOCIN) 600mg in dextrose 5% 50mL 1,200 mg Gentamicin 250 mg lactated Ringers infusion 1,000 mL 800 m L * Agents Name O2 Air N2O Sevoflurane (et) * Blood No blood administrations on file. Lines, Drains, and Airways Type Details Placement Removal Incision 06/08/16; perineum; 07/18/22 (LDA cleanup utility RA#[id number]); 1715 (LDA cleanup utility RA#[id number]) 06/08/16 0000 by Sadaf Love RN 07/18/22 1715 by Leydi Chew (RETIRED) Peripheral IV Line - Single Lumen 06/06/17; 1227; median cubital vein (antecubital fossa), left; wvno-gtk-wwdlyg catheter system; 20 gauge, 1 in length; VEL Whitman; intradermal injection, tolerated well, appears comfortable; 2; median cubital vein (antecubital fossa), right, metacarpal vein (top of hand), left; no longer indicated, catheter/device intact, removed per policy/procedure; 06/06/17; 1455 06/06/17 1227 by Brandee Smith RN 06/06/17 1455 by Ghazal Smith RN Supraglottic Mask Ventilation: Juan Luis sy (1); LMA Type: iGel; LMA Size: 4; Inserted by: SLOANE Longoria; Removal Date: 06/06/17; Removal Time: 1405 06/06/17 1326 by Jeniffer Naik, CATTLE KILLER 06/06/17 1405 by Jeniffer Naik, CATTLE KILLER Incision 06/06/17; 1350; vagi na; 07/18/22 (LDA cleanup utility RA#[id number]); 1715 (LDA cleanup utility RA#[id number]) 06/06/17 1350 by Mayda Portillo RN 07/18/22 1715 by Leydi Chew documented in this encounter Social History Tobacco [...] OR Notes * Anesthesia Postprocedure Evaluation - Zulma Cid MD - 06/06/2017 2:44 PM EDT [facility] Department of Anesthesiology Post-procedure Note Patient: Tracie Layton Procedure Summary Date Anesthesia Start Anesthesia Stop Room / Location 06/06/17 1309 1427 [facility] OR [address] [place] [address] [facility] Procedure Diagnosis Surgeon Responsible Provider SLING, REVISEOR REMOVE, REPLACE, VAGINALAPPROACH, SYNTHETIC\FASCIA (WRVU 11.15) (N/A Vagina ) Pelvic pain in female; Erosion of implanted vaginal mesh and prosthetic materials, initial encounter (mesh erosion, sling) Frankie Richards MD Welch, Marnie B, MD All Anesthesia Providers: Anesthesiologist: Zulma Cid MD CATTLE KILLER: Jeniffer Naik CRNA Last (1hr) Vitals: BP 116/58 (06/06/17 1430) Temp 36.4 ??C (97.5 ??F) (06/06/17 1419) Pulse 94 (06/06/17 1430) Resp 24 (06/06/17 1430) SpO2 96 % (06/06/17 1430) Patient Location: PACU/[facility] Level of Consciousness: Awake and Alert Pain Management: Satisfactory Analgesia PONV: None Cardiovascular Status: At Baseline and Hemodynamically Stable Respiratory Status: At Baseline and Room Air Postoperative Fluid Status: Intravascular EUvolemia Possible Anesthetic Complications: NONE apparent at time of evaluation Final Primary Anesthesia Type: General (The anesthetic type performed was the same as planned.) Comments: ZULMA CID MD Pt doing well in POST OP * Anesthesia Preprocedure Evaluation - Zulma Cid MD - 06/05/2017 10:01 PM EDT Pre-Anesthesia Evaluation for: Tracie Layton a 46 y.o. female. Procedure(s): SLING, REVISEOR REMOVE, REPLACE, VAGINALAPPROACH, SYNTHETIC\[facility]ASCIA [facility] Patient Active Problem List Diagnosis ??? Postoperative examination ??? Mixed stress and urge urinary incontinence ??? Morbid obesity with BMI of 40.0-44.9, adult ??? Headache ??? Depression hx suicide attempt Past meds: Prozac, Lexapro, Effexor, Clonazepam, [place]. None worked. Has chronic up and down [...] (post-traumatic stress disorder) nightmares ??? Agoraphobia ??? HLD (hyperlipidemia) ??? ADD (attention deficit disorder) (ADHD) ??? Vitamin D deficiency ??? Incontinence of urine ??? Back pain ??? Trochanteric bursitis of both hips ??? Persistent mood disorder ??? Post-traumatic headache ??? Bilateral occipital neuralgia ??? Post concussive syndrome 05/31/2014 Past Medical History: Diagnosis Date ??? ADHD (attention deficit hyperactivity disorder) ??? Agoraphobia ??? Alcohol abuse ??? Anxiety ??? Asthma ??? Cervical cancer 10/29/2014 Per pt in 2001, in [place], negative paps since? Chronic back pain ??? Depression hx suicide attempt ??? GERD (gastroesophageal reflux disease) ??? H/O suicide attempt 10/29/2014 Overdose in 1999 ??? History of cervical cancer 2001 s/p LEEP??? in [place] ??? HTN (hypertension) ??? Hyperlipidemia ??? Post-traumatic headache 09/29/2014 ??? Restless legs syndrome (RLS) ??? S/P tubal ligation 10/29/2014 Past Surgical History: Procedure Laterality Date ??? CERVIX SURGERY LEEP ??? SECTION ??? PRO COLONOSCOPY, REMV LESN, SNARE N/A 06/11/2015 COLONOSCOPY, POLYPECTOMY, REMOVAL LESION BY SNARE performed by Larry Rayn MD at [facility] ENDOSCOPY ??? PRO SLING OPER STRES INCONTINENCE N/A 06/08/2016 URETHRAL SUSPENSION, SLING\FASCIA OR SYNTHETIC performed by Frankie Richards MD at [facility] MAIN OR ??? PRO UPPER GI ENDOSCOPY, BIOPSY 01/08/2014 EGD WITH BIOPSY performed by Ilya Whitney MD at [facility] ENDOSCOPY Social History Substance Use Topics ??? Smoking status: Current Every Day Smoker Packs/day: 0.50 Types: Cigarettes ??? Smokeless tobacco: Never Used ??? Alcohol use Yes Comment: Occasional History Drug Use No Allergies Allergen Reactions ??? Bactrim [Sulfamethoxazole-Trimethoprim] Anaphylaxis ??? Aleve [Naproxen Sodium] Rash Per neuro team, patient has tolerated ketorolac in the past ??? Keflex [Cephalexin] Other (See Comments) Racing heart ??? Meloxicam Nausea Only Medications: MAR and/or home medications have been reviewed. Physical Exam: There were no vitals filed for this visit. There is no height or weight on file to calculate BMI. Airway Assessment: Mallampati: II TM distance: >3 FB Neck ROM: full Cardiovascular Assessment: Rhythm: regular Pulmonary Assessment: breath sounds clear to auscultation Dental Assessment: Misc Assessment: Other exam findings: Thick neck Anesthesia Plan: ASA 3 general, with a(n) intravenous induction 46 y/o here for sling, revision, for mesh erosion PMH : morbid obesity, GERD well controlled, EtOH abuse but quit, current smoker, no problems w/ fx capacity PSH: sling placement last year, i gel 4 general Plan : General LMA as previously The patient was informed of the risks of anesthesia, and consent was obtained. The risks of anesthesia include, but are not limited to, PONV, pain, sore throat, and other rare but serious complications such as major organ damage, allergies, blood transfusions, intraoperative awareness, and dental/lip trauma. Region - Other Informed Consent: Anesthetic plan and risks discussed with patient. Plan discussed with CATTLE KILLER. PAT Staff Note documented in this encounter Plan of Treatment Upcoming Encounters Date Type Department Care Team (Late st Contact Info) Description 09/05/2024 9:00 AM EDT Office Visit Internal Medicine at [address] [address] Gema Oliveira, [facility] [place] [address] documented as of this encounter Visit Diagnoses Not on filedocumented in this encounter Administered Medications Inactive Administered Medications - up to 3 most recent administrations Medication Order MAR Action Action Date Dose Rate Site clindamycin (CLEOCIN) 600mg in dextrose 5% 50mL [...] Procedure), Indication for (Active or Suspected): Prophylaxis Given 06/06/2017 1:26 PM EDT 1,200 mg dexamethasone (DECADRON) injection PRN, Starting on Mon06/06/17 at 1326, Until Mon06/06/17 at 1427, Anesthesia Intra-op, Routine Given 06/06/2017 1:26 PM EDT 4 mg dexmedetomidine (PRECEDEX) injection PRN, Starting on Mon06/06/17 at 1330, Until Mon06/06/17 at 1427, Anesthesia Intra-op, Routine Given 06/06/2017 1:48 PM EDT 4 mcg Given 06/06/2017 1:43 PM EDT 4 mcg Given 06/06/2017 1:36 PM EDT 4 mcg ePHEDrine 5 mg/mL multi-dose injection PRN, Starting on Mon06/06/17 at 1351, Until Mon06/06/17 at 1427, Anesthesia Intra-op, Routine Given 06/06/2017 1:51 PM EDT 5 mg fentaNYL 50 mcg/mL multi-dose injection PRN, Starting on Mon06/06/17 at 1347, Until Mon06/06/17 at 1427, Pain, Anesthesia Intra-op, Routine Given 06/06/2017 1:50 PM EDT 25 mcg Given 06/06/2017 1:47 PM EDT 25 mcg gentamicin (GARAMYCIN) injection PRN, Starting on Mon06/06/17 at 1326, Until Mon06/06/17 at 1427, Anesthesia Intra-op, Routine Given 06/06/2017 1:26 PM EDT 250 mg ketorolac (TORADOL) injection PRN, Starting on Mon06/06/17 at 1405, Until Mon06/06/17 at 1427, Pain, Anesthesia Intra-op, Routine Given 06/06/2017 2:05 PM EDT 30 mg lactated Ringers infusion 1,000 mL 1,000 mL, at 100 mL/hr, Intravenous, CONTINUOUS, Starting on Mon06/06/17 at 1245, Until Mon06/06/17 at 1714, Day of Surgery (Day of Procedure) New Bag 06/06/2017 1:09 PM EDT New Bag 06/06/2017 12:29 PM EDT 1,000 mLs 100 mL/hr midazolam (PF) (VERSED) 1 mg/mL multi-dose injection PRN, Starting on Mon06/06/17 at 1309, Until Mon06/06/17 at 1427, Sleep, Anesthesia Intra-op, Routine Given 06/06/2017 1:09 PM EDT 2 mg ondansetron (ZOFRAN) injection PRN, Starting on Mon06/06/17 at 1405, Until Mon06/06/17 at 1427, Nausea, Anesthesia Intra-op, Routine Given 06/06/2017 2:05 PM EDT 4 mg propofol (DIPRIVAN) 10 mg/mL bolus injection (Anesthesia) PRN, Starting on Mon06/06/17 at 1319, Until Mon06/06/17 at 1427, Anesthesia Intra-op Given 06/06/2017 1:25 PM EDT 50 mg Given 06/06/2017 1:22 PM EDT 50 mg Given 06/06/2017 1:19 PM EDT 250 mg propofol (DIPRIVAN) infusion CONTINUOUS PRN, Starting on Mon06/06/17 at 1325, Until Mon06/06/17 at 1427, Anesthesia Intra-op, Routine New Bag 06/06/2017 1:25 PM EDT 50 mcg/kg/min 37.4 mL/hr documented in this encounter Care Teams Cutter Operator Asbestos Shingle Relationship Specialty Start Date End Date Ragini Unger MD [facility] [place] [address] PCP - General General Internal Medicine 12/06/16 9/2 04/05 documented as of this encounter
--- OUTSIDE RECORDS SUMMARY | 2024-07-12 00:32 | XMS_ITS | Encounter Summary ---
Author Organization [facility] Address [facility] [place] [address] Care Team Providers Care Claim Representative Name Role Phone Marguerite Riley MD Primary Care Provider [phone] Reason for Visit * Reason Onset Date Comments Other 08/30/2017 Encounter Details Date Type Department Care Team (Late st Contact Info) Description 08/30/2017 [place] [address] Gracie Mark MD [facility] [place] [address] Other Social History Tobacco Use Types Packs/Day [...] encounter Miscellaneous Notes * Telephone Encounter - Zina Landeros RN - 10/17/2017 3:23 PM EST See 10/17/17 patient email * Telephone Encounter - Sandy Keith - 08/30/2017 10:51 AM EDT Caller: Tracie If not Pt / Relation to pt: Best time to reach caller: anytime Before 2:30pm - Informed caller that nurse will call back by the end of the day Best number to reach caller: [phone] Reason for call: Headache Is this the worst headache of the pt life: no Did the headache start suddenly: no When did the headache start: Sporadic increase over last 2 weeks Is the headache still present: yes Additional information for nurse: patient asking about ONB, headaches have been advil resistant. Disposition of Call (nurse paged, red arrow message to nurse pool, routine message to nurse pool): message to nurse pool documented in this encounter Plan of Treatment Upcoming Encounters Date Type Department Care Team (Late st Contact Info) Description 09/05/2024 9:00 AM EDT Office Visit Internal Medicine at [place] [id number] Gema Oliveira DO [facility] GENER[facility] [place] [address] documented as of this encounter Visit Diagnoses Not on filedocumented in this encounter Care Teams Claim Representative Relationship Specialty Start Date End Date Marguerite Riley MD [facility] [address] [facility] [place] [address] PCP - General General Internal Medicine 08/15/1704/22 documented as of this encounter
--- OUTSIDE RECORDS SUMMARY | 2024-07-12 00:32 | XMS_ITS | Encounter Summary ---
Author Organization [facility] Address [facility] [place] [address] Care Team Providers Care Bulker Name Role Phone Marguerite Riley MD Primary Care Provider [phone] Reason for Referral * Consultation (Routine) - Closed Specialty Diagnoses / Procedures Referred By María Elena mcdaniel Referred To Contact Sleep Center Diagnoses Chronic fatigue Marguerite Riley MD [facility] [place] [place] [address] [facility] Sleep Medicine [address] [place] [address] Referral ID Status Reason Start Date Expiration Date V isits Requested Visits Authorized [id number] Closed Specialty Service Requested 09/19/2017 09/19/2018 1 1 Reason for Visit * Reason Comments Medication Management Encounter Details Date Type Department Care Team (Late st Contact Info) Description 09/19/2017 9:30 AM EDT Office Visit Internal Medicine at [address] [id number] Marguerite Riley MD [facility] [place] [address] Persistent mood disorder (Primary Dx); Screening for diabetes mellitus; Generalized edema; Nicotine dependence, cigarettes, uncomplicated; Tobacco abuse counseling; Need for prophylactic vaccination and inoculation against influenza; Mild intermittent asthma without complication; Chronic fatigue Social History Tobacco Use Types Packs/Day Years [...] Sign Reading Time Taken Comments Blood Pressure 150/84 09/19/2017 9:28 AM EDT Pulse 98 09/19/2017 9:28 AM EDT Temperature - - Respiratory Rate - - Oxygen Saturation 99% 09/19/2017 9:28 AM EDT Inhaled Oxygen Concentration - - Weight 126.6 kg (279 lb) 09/19/2017 9:28 AM EDT Height 177.8 cm (5' 10) 09/19/2017 9:28 AM EDT Body Mass Index 40.03 09/19/2017 9:28 AM EDT documented in this encounter Patient Instructions * Patient Instructions* Marguerite Riley - 09/19/2017 10:23 AM EDT Tobacco Treatment: Resources It is recommended that you quit smoking. You may be referred to the Tobacco Treatment Program to assist you in your quit plan. For more information or to make an appointment call . Call 6-422-CKAR-NOW ( ) for [place] or [place] residents for free telephone support for quittingtobacco. Online: www.smokefree.gov Tobacco Treatment: Nicotine Replacement Instructions Nicotine patch instructions: Place the patch on your skin in an area that has a minimal amount of hair, typically between the neck and waist or upper arms. Avoid placing it over scars or tattoos. Change the place where you put it on your skin daily. Remove the patch each morning and replace with a new patch. Fold the patch in half, with the sticky sides in and dispose of it safely, keeping it out of reach of children or pets. Some patients experience nightmares or bad dreams on the patch. If this happens you should remove the patch at bedtime and just replace it each morning. The nicotine patch releases a constant amount of nicotine in the body. The nicotine dissolves rightthrough the skin and enters the body. Less nicotine is obtained through the patch than in cigarettes. The patch does NOT contain all the tars and poisonous gases that are found in cigarettes. Side effects from wearing the patch can include: headaches, dizziness, upset stomach, weakness, blurred vision, vivid dreams, mild itching and burning on the skin, and diarrhea. Wearing the nicotine patch decreases the chances of suffering from several of the major smoking withdrawal symptoms such as tenseness, irritability, drowsiness and lack of concentration. The nicotine patch can be combined with other Nicotine Replacement Therapy products such as Nicotine gum or lozenges. Ask your healthcare provider about combination therapy to increase your chances of successfully quitting tobacco for good! The [place] Food and Drug Administration has recently released a statement that there are no significantrisks associated with the use of Nicotine Replacement Therapy products for longer than the labeled number of weeks of use. If you are still having strong cravings to smoke or are struggling to quit completely while using the Nicotine patch talk with your healthcare provider for additional help. Nicotine gum instructions: Nicotine gum must be used properly in order to be effective. Nicotine from Nicotine gum is absorbedthrough the mucous membranes in your mouth at a certain acidity or pH level. Therefore do not eat or drink anything but water for 15 minutes prior to or during use. It should be chewed until a peppery sensation is felt in the mouth and then parked between the cheek and gum until that sensation is gone, then begin chewing again until the peppery feeling comes back again, parking and chewing as described until all of the peppery sensation has gone from the gum. This may take 20-30 minutes. Try tonot swallow the saliva or it may cause an upset stomach. The gum is to be disposed of carefully in the trash where no pets or young children could get ahold of it, as there is always a small amount of nicotine left in the remains of the gum and could sicken a child or pet. The nicotine gum comes in two strengths, 2 mg and 4 mg. You should use the 2 mg gum if you smoke your first cigarette more than 30 minutes after waking. You should use the 4 mg gum if you smoke your first cigarette less than 30 minutes after waking. Chew enough Nicotine gum to reduce withdrawal symptoms, usually starting by chewing a piece of gum every 1-2 hours for the first few days after quitting. Common side effects from Nicotine gum include mouth soreness, hiccups, upset stomach, jaw ache. These usually do not last long and can be reduced or eliminated by correct use of the gum. Nicotine gum can be combined with Nicotine patches for increased chances of successfully quitting tobacco for good! The US Food and Drug Administration has recently released a statement that there are no significantrisks associated with the use of Nicotine Replacement Therapy products for longer than the labeled number of weeks of use. Maximum dosage is 24 pieces of Nicotine gum/24 hours. Nicotine lozenge instructions: Nicotine lozenges must be used properly in order to be effective. Nicotine from the lozenge is absorbed through the mucous membranes in your mouth at a certain acidity or pH level. Therefore do not eat or drink anything but water for 15 minutes prior to or during use. Place the nicotine lozenge on the tongue or between the cheek and the jaw. Allow the lozenge to dissolve. Do not bite, chew or swallow whole or in pieces. Do not work the lozenge like a hard candy or you may create too much saliva and swallow this extra liquid which may upset your stomach. The most common side effects from Nicotine lozenges are nausea, hiccups and heartburn. This can be reduced by following the instructions for proper use. Nicotine lozenges come in two strengths, 2 mg and 4 mg. You should use the 2 mg lozenge if you smoke your first cigarette more than 30 minutes after waking. You should use the 4 mg lozenge if you smoke your first cigarette less than 30 minutes after waking. Nicotine lozenges can be combined with Nicotine patches for increased chances of successfully quitting tobacco for good! The US Food and Drug Administration has recently released a statement that there are no significantrisks associated with the use of Nicotine Replacement Therapy products for longer than the labeled number of weeks of use. Maximum dose is 20 lozenges/24 hours. Nicotine inhaler instructions: One dose of nicotine from the inhaler consists of a puff or inhalation. Each cartridge delivers a total of 4 mg of nicotine over 80 inhalations. The recommended dosage is 6-16 cartridges a day. The nicotine is delivered in the form of an inhaler. Nicotine from the inhaler is absorbed through the mucous membranes in your mouth at a certain acidity or pH level. Therefore do not eat or drink anything but water for 15 minutes prior to or during use. Delivery of nicotine from the inhaler declines significantly at temperatures below 40 degrees F. Incold weather, the inhaler and cartridges should be kept in an inside pocket or other warm area. Common side effects include local irritation in the mouth and throat. Coughing and runny nose can also occur. These are generally mild and decline with continued use. The US Food and Drug Administration has recently released a statement that there are no significantrisks associated with the use of Nicotine Replacement Therapy products for longer than the labeled number of weeks of use. References: Treating Tobacco Use and Dependence, Clinical Practice Guideline 2008 Update, U.S. Department of Health and Human Services, March 2008 U.S. Food and Drug Administration Recommendations, revised directions for use of Nicotine Replacement Therapy , February 19, 2013: https://www.federal[employer] Corpister.gov/articles//2013-86677/modifications-to- xxzzlime-ha-biewhvss-zxvaqbglvnu-fyraegu-hiprwxtd-udf-hoeo-ddw-sirvexk-qkmbd-pwo Tobacco Treatment: Bupropion SR / Zyban instructions: Bupropion SR/Zyban is a non-nicotine pill to help tobacco users quit. Take 150 mg once a day for the first 3 days then increase to 150 mg twice a day. There must be at least 8 hours between the two doses. Start this medication 1-2 weeks before quit date. Limit alcohol intake. Duration of therapy is7-12 weeks but may be extended for up to 6 months. The most common side effects with this medication are difficulty sleeping and dry mouth. If you have trouble with sleep you might try taking the second dose earlier in the day/evening. Several studies have shown that Bupropion SR in combination with a nicotine patch can further increase success in quitting tobacco. References: Treating Tobacco Use and Dependence, Clinical Practice Guideline 2008 Update, U.S. Department of Health and Human Services, March 2008 U.S. Food and Drug Administration Recommendations, revised directions for use of Nicotine Replacement Therapy , February 19, 2013: https://www.[employer]ister.gov/articles//2013-77399/modifications-to- ynvjupdi-hw-jbacjacc-nklhyryxbvq-twralwj-lxijtatb-rxx-nsbs-ycu-tojjzqj-oupfj-vok Tobacco Treatment: Varenicline / Chantix The active [...] Nicotine Replacement Therapy , February 19, 2013: https://www.federalregister.gov/articles//2013-43175/modifications-to- yxrkauum-kb-qxkgeplp-mjizneoiwvy-ffkwnfk-igrlhuqe-dus-jjnn-bog-ikvxuzl-zplal-qba documented in this encounter Progress Notes * Marguerite Riley - 09/19/2017 9:30 AM EDT ESTABLISHED PATIENT VISIT I. HISTORY a. Reason(s) for Visit: Tracie Layton 46 y.o. female who presents today due to complaint(s) of: Chief Complaint Patient presents with ??? Medication Management b. History of Present Illness: Persistent mood disorder Mood is stable. No current suicidal ideation. She continues to be uninterested in counseling, as she doesn't like talking or having to establish with someone new. She does not want to start any medications, as she's been on so many in the past. Her sleeping and attention difficulties are stable. She reports continues good sleep hygiene without benefit. She reports waking herself up snoring; her bed partner does is a very heavy sleeper so does not report any apneic episodes or snoring. PHQ-9 QUESTIONNAIRE SCORE ONLY (Clinic) 01/09/2017 05/26/2017 05/30/2017 09/19/2017 PHQ - 9 Score (Clinic) 22 (Severe Depression) 14 (Moderate Depression) 16 (Moderately Severe Depression) 19 (Moderately Severe Depression) Some recent data might be hidden Tobacco-use She expresses interest in quitting but is not ready to pick a quit date. She would like to try Chantix again, as she feels she almost quit on it last time. She would consider Wellbutrin in addition to this. Restless legs She stopped the Mirapex since her last visit, as she feels this was causing her feeling of excess phlegm/post-nasal drip. She stopped multiple times since her last visit and her symptoms completely went away. She's been fidgeting much more at night classes and her sleep continues to be poor. She has to get up multiple times to walk but would prefer this over the side-effects from Mirapex. Gabapent in was not helpful; she's not sure how long she was on it, but didn't ever titrate up, as she felt there was no point in taking something that won't help. Edema She has been waking up in the mornings feeling very swollen in her eyes, hands, feet. It takes a few hours and then this goes away. It does not happen every morning; has only happened 4-5 times sinceher last visit. No correlations with food, though she does tend to eat a lot of salt (has cut back recently). No urinary changes. She is fearful of developing diabetes, as multiple family members have it. Leg numbness Didn't get in to see neurosurgery or get a call about the referral. Continues to have tingling in fingers bilaterally and balance remains poor. c. Review of Systems: Constitutional - no fevers, chills, weight loss or gain, fatigue Cardiovascular - No CP, palpitations, angina Respiratory - No SOB, BAUMANN, wheeze, cough, sputum production HEENT - No diffculty swallowing, hearing, No nasal congestion or postnasal drip Gastrointestinal - No abdominal pain, nausea, GERD, constipation, diarrhea, blood in stool Musculoskeletal - No weakness, pain at rest or with movement All other systems negative d. PMH Patient Active Problem List Diagnosis ??? Restless legs syndrome (RLS) ??? GERD (gastroesophageal reflux disease) ??? Osteoarthritis of spine with radiculopathy, lumbar region ??? Erosion of vaginal mesh ??? Postoperative examination ??? Mixed stress and urge urinary incontinence ??? Morbid obesity with BMI of 40.0-44.9, adult ??? Headache ??? Depression hx suicide attempt Past meds: Prozac, Lexapro, Effexor, Clonazepam, [place]. None worked. Has chronic up and down [...] Yes Comment: Occasional II. PHYSICAL EXAM: BP 150/84 Pulse 98 Ht 177.8 cm (5' 10) Wt (!) 126.6 kg (279 lb) SpO2 99% BMI 40.03 kg/m2 General - No acute distress, conversing without difficulty. ENT - oropharynx without lesions. Eyes - EOMI. No scleral icterus Lungs - Clear to auscultation and percussion. Heart - RRR, S1,S2, no murmur, gallop or rub. Abdomen/GI - Soft, nontender, normal active bowel sounds, neg hsm or masses. Extremities - No clubbing, cyanosis or edema. Pulses intact. III. ASSESSMENT/PLAN:Tracie Layton 46 y.o. female presenting with for follow-up of depression and tobacco use. 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 Will attempt to increase exercise with smoking cessation attempt to see if this helps. - Will reassess in one month Screening for diabetes mellitus - POCT glycated hemoglobin, total (HA1C) 5.9 - Given pre-diabetes, will continue to work on life-style changes - May need to consider metformin at a later date Generalized edema No proteinuria on urine dipstick, so may be secondary to intermittent protein spilling versus dietary (excess salt intake). - Continue to monitor Nicotine dependence, cigarettes, uncomplicated - varenicline (CHANTIX) 1 mg Tablet; Take 1 tablet by mouth 2 times daily (with meals). - nicotine polacrilex (COMMIT) 2 mg Lozenge; Place 1 lozenge inside cheek every 2 hours as needed for Smoking cessation. Max 20 Lozenges per day - buPROPion (WELLBUTRIN SR OR ZYBAN) 150 mg Tablet Sustained Release 12 hr; Once daily for 3 days then twice/day. Indications: Smoking Cessation - varenicline (CHANTIX) 0.5 mg Tablet; Take by mouth with meals. Days 1-3: 0.5 mg ONCE daily. Days 4-7: 0.5 mg TWICE daily. Day 8 until the end of treatment: 1 mg TWICE daily. Tobacco abuse counseling - Will use above medications for quit attempt - Will try to walk when having cravings - Will find something to replace oral and mechanical effect of cigarettes - Follow-up in one month Need for prophylactic vaccination and inoculation against influenza - Flu vaccine greater than or equal to 3yo preservative free Mild intermittent asthma without complication - albuterol (PROAIR HFA) 90 mcg/actuation HFA Aerosol Inhaler; Inhale 2 puffs into the lungs every 4 hours as needed for Wheezing. Use with spacer Chronic fatigue Her chronic fatigue, headaches, and new edema could be secondary to CAS. - Referral to [facility] Disorders Center Meds reconciled * Ragini Unger MD - 09/19/2017 9:30 AM EDT I have seen the patient and reviewed the resident's above history and I agree with the details as written. The assessment and plan were formulated in discussion with me and I agree with them as documented. Pertinent History: Pt is a 46 yo female with extensive PMH. H/o anxiety, depression, PTSD, ADD, gerd, post concussive syndrome, asthma, incontinence and tob abuse. Here for f/up. Here for annual exam. Acute issues include -persistent depressed mood. meds have not worked in the past, therapist has left and she doesn't feel that she can engage with therapists and is not interested in trying right now. Sleep still very poor. very restless, gets 4 hours. - is interested in stopping smoking, wonders about re-try of chantix. Also trial of wellbutrin which did not work. - restless legs are getting worse, even during the day. Stopped mirapex 0.5mg and has less phlegm. Trial of gabapentin without improvement - increased edema - occurs in morning. Has tried to cut back in her salt. - persistent WATKINS - followed by neurology. No showed last appt with them. Pertinent Exam: Overweight female in NAD. Vital signs unremarkable. Exam as per Dr. Riley. Urine neg protein. A1c 5.9 Major issues addressed: Tobacco cessation - chantix, wellbutrin, nicotine lozenges. Fatigue, edema - ? CAS, might be contributor to chronic WATKINS as well. 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 Encourage pt to identify therapist. F/up in 1 month to reassess. Pre-DM - will focus on exercise, dietary changes, consider metformin. HCM - flu shot today documented in this encounter Plan of Treatment Upcoming Encounters Date Type Department Care Team (Late st Contact Info) Description 09/05/2024 9:00 AM EDT Office Visit Internal Medicine at [address] [id number] Gema Oliveira, [facility] [place] [address] Scheduled Referrals Name Type Priority Associated Diagnoses Orde r Schedule Referral to Sleep Disorders Center Outpatient Referral Routine Chronic fatigue Ordered: 09/19/2017 documented as of this encounter Procedures Procedure Name Priority Date/Time Associated Diagnosis Comments POCT GLYCATED HEMOGLOBIN, TOTAL (HA1C) Routine 09/19/2017 9:10 AM EDT Screening for diabetes mellitus POCT URINE DIPSTICK Routine 09/19/2017 9 :10 AM EDT Generalized edema documented in this encounter Results * (ABNORMAL) POCT urine dipstick (09/19/2017 9:10 AM EDT) POC Sp [place] 1.020 1.002 - 1.030 POC pH, UA 5 5.0 - 8.5 POC Leuk, UA neg Negative - Negative POC Nitrite, UA neg Negative - Negative POC Protein, UA neg Negative - Negative mg/dL POC Glucose, UA norm Normal - Normal mg/dL POC Ketone, UA neg Negative - Negative POC Urobil, UA norm 0.2 - 1.0 mg/dL POC Bili, UA neg Negative - Negative POC Blood, UA about 50 Negative - Negative niall/uL 09/19/2017 9:10 AM EDT Ragini Unger MD POINT OF CARE TEST O RDERABLES * (ABNORMAL) POCT glycated hemoglobin, total (HA1C) (09/19/2017 9:10 AM EDT) Hemoglobin A1C, POC 5.9(A) 4.3 - 5.6 % 09/19/2017 9:10 AM EDT Ragini Unger MD POINT OF CARE TEST O RDERABLES documented in this encounter Visit Diagnoses Diagnosis Persistent mood disorder- Primary Unspecified episodic mood disorder Screening for diabetes mellitus Generalized edema Edema Nicotine dependence, cigarettes, uncomplicated Tobacco abuse counseling Counseling on substance use and abuse Need for prophylactic vaccination and inoculation against influenza Mild intermittent asthma without complication Unspecified asthma Chronic fatigue Other malaise and fatigue documented in this encounter Care Teams Bulker Relationship Specialty Start Date End Date Marguerite Riley MD [facility] [address] GENERAL [place] [address] PCP - General General Internal Medicine 08/15/1704/22 documented as of this encounter
--- OUTSIDE RECORDS SUMMARY | 2024-07-12 00:32 | XMS_ITS | Encounter Summary ---
Author Organization Formerly [facility] [place] [address] Care Team Providers Care Long Term Care Social Worker Name Role Phone Ragini Unger MD Primary Care Provider [phone] Reason for Referral * Physical Therapy (Routine) - Closed Specialty Diagnoses / Procedures Referred By María Elena mcdaniel Referred To Contact Physical Therapy Diagnoses Spondylosis of lumbar region without myelopathy or radiculopathy Ori William APRN [facility] [place] [address] [facility] [place] [address] Referral ID Status Reason Start Date Expiration Date V isits Requested Visits Authorized [id number] Closed Evaluate and Treat 07/10/2017 07/10/2018 12 12 Reason for Visit * Reason Comments Back Pain Bilateral Leg Pain Encounter Details Date Type Department Care Team (Latest Contact Info) Description 07/10/2017 9:30 AM EDT Office [place] [address] Ori William PLACING JUDGE [facility] [place] [address] Spondylosis of lumbar region without myelopathy or radiculopathy Social History Tobacco Use Types Packs/Day Years [...] as of this encounter Progress Notes * Ori William, PLACING JUDGE - 07/10/2017 9:30 AM EDT SUBJECTIVE: Tracie Layton is a 46-year-old female patient being seen at the request of herself with a chief complaint of low back pain. The patient states her low back pain began at least 9 years ago after she had a fall out of a hammock. She states that since that time, she has had pain daily in her low back, although it had been progressively worsening over the years. 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 She describes her back pain as being in the mid to low lumbar region, midline and bilateral of midline and describes the numbness as beginning at the trochanteric area down the lateral thighs and lateral lower legs into all toes of both feet and down both lower extremities equally. She has identified no particular aggravating or alleviating factors for her leg numbness and states she does not currently have the numbness and that it is intermittent in nature. Her back pain is aggravated by walking 200 yards or more, standing 10 minutes or more, and sitting 30 minutes or more, and is alleviated by bending forward when she is standing. Her sleep is frequently disrupted by her low back pain and she states a 2-year history of balance disturbances, but denies falls. Prior treatments have included ibuprofen, not helpful; acetaminophen, not helpful; Percocet, not helpful; in the remote past, physical therapy that had aggravated her back pain; chiropractic, which was minimally helpful; 5 to 6 years ago, what she believes to be medial branch blocks, which were not helpful. Review of systems is negative for constitutional symptoms or symptoms, but she does have a history of stress and urge urinary incontinence. The patient smokes half a pack of cigarettes per day, drinks 2 beers once a month, lives with her boyfriend and is on SSDI. The patient's comorbidities include headache, occipital neuralgia, restless leg syndrome, PTSD, ADHD, abdominal pain, and bilateral trochanteric pain. OBJECTIVE: On examination, the patient's affect is bright, her speech is in good time and to the point, and she responds appropriately to questions and direction. She stands with level hips and a straight lumbar spine with no obvious deformity. She is tender in the mid to low lumbar spine and somewhat allodynic. Lumbar ROM is 20 degrees of flexion and 5 degrees of extension, both which aggravate her low back pain equally. She walks with a wide gait, is able to toe walk, heel walk, and is somewhat unsteady in tandem walking. Motor exam is 5/5 strength of all lower extremity muscle groups bilaterally. Sensation is intact in the dermatomes of both lower extremities. Reflexes are 1 at the knees, and 0 at the ankles. There is no clonus or Babinski. Hip ROM and straight leg raise exams are negative. Lumbar spine x-ray of 2016 is reviewed. At T11-12, there is mild disk height loss with mild anterior disk osteophyte. At L3-4, there is mild facet hypertrophy. At L4-5, there is mild facet hypertrophy. At L5-S1, mild facet hypertrophy. These mild degenerative changes in the lumbar spine are minimally changed from a lumbar spine x-ray of 09/20/2009. Lumbar spine MRI of 06/11/2013 is reviewed. At L3-4, there is mild disk bulge with facet arthropathy. At L4-5, there is facet arthropathy with mild disk bulge. At L5-S1, there is disk desiccation with mild disk bulge, mild bilateral facet arthropathy, and a small midline annular tear. The x-ray and MRI images were reviewed with the patient. ASSESSMENT: This is a 46-year-old female with 9 years of chronic daily low back pain and 3-4 weeks of intermittent lateral leg numbness with no leg pain or weakness in the setting of mild degenerative changes of the lumbar spine. I explained to the patient that it is possible that her leg numbness could be explained by a disk bulge, although the intermittent nature with no clear aggravating factors are somewhat reassuring with respect to that. She certainly has a very limited range of motion and pain avoidance behaviors and I explained to the patient how the reduced range of motion can be very compounding to low back pain. I reviewed with her, treatment options, which include Beatriz-based physical therapy, acupuncture, application of heat, yoga, zackary chi, and massage. I also briefly reviewed the possibility of injections, depending on what updated imaging might show us and explained that I have a low suspicion for surgical lesion. I also reviewed with her the relaxation response and described to her how anxiety and fear of pain can actually amplify the pain experience. I described to her the fight or flight response and the relaxation response as a counter and explained simple meditation technique that she could use to potentially elicit to the relaxation response. With respect to physical therapy, she has some social anxieties that make it difficult for her to be out in public, but elected to pursue therapy with our communicable disease specialist physical therapist. We have therefore mutually agreed to proceed as follows: PLAN: 1. Mechanical diagnosis and treatment with a [facility] Physical Therapist. 2. I would like to see the patient back in followup in approximately 4 weeks. 3. She is not interested in injections therefore I do not see indication for advanced imaging at this time. Should her leg symptoms become more frequent or if she were to begin experiencing pain into her legs and if injections might then be an option that she would consider and if she fails to benefit from physical therapy, then a noncontrast MRI of the lumbar spine and a followup appointment with me would be appropriate. documented in this encounter Plan of Treatment Upcoming Encounters Date Type Department Care Team (Late st Contact Info) Description 09/05/2024 9:00 AM EDT Office Visit Internal Medicine at [address] [address] Gema Oliveira, [facility] [place] [address] Scheduled Referrals Name Type Priority Associated Diagnoses Orde r Schedule Referral to Physical Therapy Outpatient Referral Routine Spondylosis of lumbar region without myelopathy or radiculopathy Ordered: 07/10/2017 documented as of this encounter Visit Diagnoses Diagnosis Spondylosis of lumbar region without myelopathy or radiculopathy Lumbosacral spondylosis without myelopathy documented in this encounter Care Teams Long Term Care Social Worker Relationship Specialty Start Date End Date Ragini Unger MD [facility] [place] [place] [address] PCP - General General Internal Medicine 12/06/16 9/2 04/05 documented as of this encounter
--- OUTSIDE RECORDS SUMMARY | 2024-07-12 00:32 | XMS_ITS | Encounter Summary ---
[place] [address] Care Team Providers Care Nursing Scheduler Name Role Phone Ragini Unger MD Primary Care Provider [phone] Reason for Visit * Reason Onset Date Comments Post Procedure Call 06/07/2017 Encounter Details Date Type Department Care Team (Late st Contact Info) Description 06/07/2017 Telephone Obstetrics [place] [phone] Basilia Tay RN Post Procedure Call Social History Tobacco Use Types Packs/Day Years [...] encounter Miscellaneous Notes * Telephone Encounter - Basilia Tay RN - 06/07/2017 10:14 AM EDT POST-OP TELEPHONE UPDATE Date of Surgery: 06/06/17 SLING, REVISEOR REMOVE, REPLACE, VAGINALAPPROACH, SYNTHETIC\FASCIA (WRVU 11.15) (N/A) (Excision of exposed sling) Overall well-being: I am doing okay Pain?: 01/27 Pain medication working(Y/N)?: Using Motrin this am Location of pain: Vaginal Bladder function: voiding without difficulty Bowel function: No BM but passing flatus Ambulating: Yes Tolerating solids / liquids: well-tolerated Dressings: none Incisions: internal Vaginal bleeding: spotting Fever: none Post Op appointment booked? appt booked Instructions: We reviewed phone contacts. The patient will call triage at during daytime hours or during the evening or weekends and ask for the dean of girls non clinical advisor if she is having problems. BASILIA TAY, RN documented in this encounter Plan of Treatment Upcoming Encounters Date Type Department Care Team (Late st Contact Info) Description 09/05/2024 9:00 AM EDT Office Visit Internal Medicine at [address] [address] Gema Oliveira DO [facility] [place] [address] documented as of this encounter Visit Diagnoses Not on filedocumented in this encounter Care Teams Nursing Scheduler Relationship Specialty Start Date End Date Ragini Unger MD [facility] [address] [address] PCP - General General Internal Medicine 12/06/16 9/2 04/05 documented as of this encounter
--- OUTSIDE RECORDS SUMMARY | 2024-07-12 00:32 | XMS_ITS | Encounter Summary ---
Author Organization [facility] [place] [address] Care Team Providers Care Machine Tracer Name Role Phone Marguerite Riley MD Primary Care Provider [phone] Reason for Referral * Diagnostic Test (Routine) - Closed Specialty Diagnoses / Procedures Referred By Contac t Referred To Contact Radiology Diagnoses Sacroiliac joint dysfunction Procedures CT Guided Injection SI Joint Abby Solis MD [address] [place] [address] [facility] [place] [address] Referral ID Status Reason Start Date Expiration Date V isits Requested Visits Authorized [id number] Closed Specialty Service Requested 12/21/2017 12/21/2018 1 1 Reason for Visit * Diagnostic Test (Routine) - Closed Specialty Diagnoses / Procedures Referred By Contac t Referred To Contact Radiology Diagnoses Sacroiliac joint dysfunction Procedures CT Guided Injection SI Joint Abby Solis MD [address] [place] [address] [facility] [place] [address] Referral ID Status Reason Start Date Expiration Date V isits Requested Visits Authorized [id number] Closed Specialty Service Requested 12/21/2017 12/21/2018 1 1 Encounter Details Date Type Department Care Team (Latest Contact Info) Description 01/16/2018 9:02 AM EST - 01/16/2018 11:59 PM EST Hospital [place] [address] Abby Solis MD [address] [place] [id number] Sacroiliac joint dysfunction Discharge Disposition: Home Social History Tobacco Use [...] (with meals). 60 tablet 1 09/19/2017 06/20/2018 buPROPion (WELLBUTRIN SR OR ZYBAN) 150 mg [...] times daily. 180 capsule 3 06/01/2017 08/29/2018 ipratropium-albuterol (DUONEB) 0.5 mg-3 mg(2.5 mg base)/3 mL Solution for Nebulization Take 0.5 mg by nebulization every 4 hours as needed. 60 vial 04/21/2017 06/20/2018 documented as of this encounter Plan of Treatment Upcoming Encounters Date Type Department Care Team (Late st Contact Info) Description 09/05/2024 9:00 AM EDT Office Visit Internal Medicine at [address] [address] Gema Oliveira, [facility] [place] [address] documented as of this encounter Procedures Procedure Name Priority Date/Time Associated Diagnosis Comments CT GUIDED INJECTION SI JOINT Routine 01/16/2018 10:23 AM EST Sacroiliac joint dysfunction documented in this encounter Results * CT Guided Injection SI Joint (01/16/2018 10:23 AM EST) Anatomical Region Laterality Modality Computed Tomogra phy Impressions 01/16/2018 3:[address]-guided right sacroiliac joint anesthetic and steroid injection. I was present for the entire procedure. I have personally reviewed the image(s) and the residents interpretation and agree with the findings, MICHAELA CALERO at 01/16/2018 3:02 PM Narrative 01/16/2018 3:02 PM EST EXAMINATION: CT GUIDED INJECTION SI JOINT ? CLINICAL HISTORY: Sacroiliac joint dysfunction COMPARISON: Radiograph lumbar spine 2016 and MRI of the lumbar spine 11/23/2017 TECHNIQUE: The risks and benefits of the procedure were discussed with the patient, and written informed consent was obtained. ??The patient was positioned prone on the CT table, and noncontrast images of the sacrum were obtained. ??An appropriate level and access path were chosen. ??The skin was then marked, prepped and draped in the usual sterile fashion. 1% lidocaine used for local anesthesia. ?? With intermittent CT fluoroscopic guidance, a 22-gauge spinal needle was advanced into the right sacroiliac joint. Into the joint, 4 mL of 0.5% bupivacaine mixed with 80 mg of Depo-Medrol was injected. ??The needle was removed. The patient tolerated the procedure well with no immediate complications. ?? FINDINGS: Review of the axial CT images through the lower lumbar spine demonstrates mild degenerative changes involving bilateral SI joints characterized by mild marginal osteophyte formation. Moderate facet arthropathy at L4-L5. Preprocedure pain: 5/10 Postprocedure pain: 3/10 ?? Procedure Note Michaela Calero MD - 01/16/2018 EXAMINATION: CT GUIDED INJECTION SI JOINT CLINICAL HISTORY: Sacroiliac joint dysfunction COMPARISON: Radiograph lumbar spine 2016 and MRI of the lumbarspine 11/23/2017 TECHNIQUE: The risks and benefits of the procedure were discussed with the patient,and written informed consent was obtained. The patient was positioned proneon the CT table, and noncontrast images of the sacrum were obtained. Anappropriate level and access path were chosen. The skin was then marked, prepped anddraped in the usual sterile fashion. 1% lidocaine used for local anesthesia. With intermittent CT fluoroscopic guidance, a 22-gauge spinal needle was advanced into the right sacroiliac joint. Into the joint, 4 mL of 0.5% bupivacaine mixed with 80 mg of Depo-Medrol was injected. The needlewas removed. The patient tolerated the procedure well with no immediate complications. FINDINGS: Review of the axial CT images through the lower lumbar spine demonstrates mild degenerative changes involving bilateral SI joints characterized by mild marginal osteophyte formation. Moderate facetarthropathy at L4-L5. Preprocedure pain: 5/10 Postprocedure pain: 3/[address]-guided right sacroiliac joint anesthetic and steroidinjection. I was present for the entire procedure. I have personally reviewed the image(s) and the residents interpretationand agree with the findings, MICHAELA CALERO at 01/16/2018 3:02 PM Abby Solis MD IMG CT ORDERABLES documented in this encounter Visit Diagnoses Diagnosis Sacroiliac joint dysfunction Disorders of sacrum documented in this encounter Administered Medications Inactive Administered Medications - up to 3 most recent administrations Medication Order MAR Action Action Date Dose Rate Site methylPREDNISolone acetate (DEPO-Medrol) injection 80 mg 80 mg, Intramuscular, ONCE, 1 dose, On Mon01/16/18 at 1045, Routine Given 01/16/2018 10:20 AM EST 80 mg documented in this encounter Care Teams Machine Tracer Relationship Specialty Start Date End Date Marguerite Riley MD [facility] [place] [address] PCP - General General Internal Medicine 08/15/1704/22 documented as of this encounter
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
--- OUTSIDE RECORDS SUMMARY | 2024-07-12 00:32 | XMS_ITS | Encounter Summary ---
Author Organization [facility] Address [facility] [place] [address] Care Team Providers Care Assistant Controller Name Role Phone Ragini Unger MD Primary Care Provider Encounter Details Date Type Department Care Team (Latest Contact Info) Description 01/09/2017 12:36 PM EST - 01/09/2017 11:59 PM [facility] Hospital Encounter XRay at [address] [place] [address] Ragini Unger MD [facility] [place] [address] Wheezing Discharge Disposition: Home Social History Tobacco Use [...] Dispensed Refills Start Date End Date omeprazole (PRILOSEC) 40 mg Capsule, Delayed Release(E.C.)Indicati ons:Gastroesophageal reflux disease without esophagitis TAKE 1 CAPSULE BY MOUTH DAILY 90 capsule 01/11/2017 06/01/2017 methylPREDNISolone (MEDROL, LIBRADO,) 4 mg Tablets, Dose PackIndications:Mild intermittent asthma with acute exacerbation Use as directed on product package. 21 tablet 01/09/2017 05/26/2017 candesartan (ATACAND) 16 mg Tablet Take 1 tablet by mouth daily. 30 tablet 3 12/21/2016 05/30/2017 cyclobenzaprine (FLEXERIL) 10 mg TabletIndications:Alix k pain, [...] WITH SPACER. 1 Inhaler 3 10/04/2016 04/21/2017 pramipexole (MIRAPEX) 0.5 mg TabletIndications:res tless leg syndrome Take 1-2 tablets by mouth nightly. Indications: Restless Legs Syndrome 180 tablet 3 10/19/2015 04/19/2017 documented as of this encounter Plan of Treatment Upcoming Encounters Date Type Department Care Team (Late st Contact Info) Description 09/05/2024 9:00 AM EDT Office Visit Internal Medicine at [place] [id number] [facility] [address] documented as of this encounter Procedures Procedure Name Priority Date/Time Associated Diagnosis Comments XR CHEST PA AND LATERAL Routine 01/09/2017 12:48 PM EST Wheezing documented in this encounter Results * XR Chest PA [...] in this encounter Visit Diagnoses Diagnosis Wheezing documented in this encounter Care Teams Assistant Controller Relationship Specialty Start Date End Date Ragini Unger MD [facility] [place] [address] PCP - General General Internal Medicine 12/06/16 9/2 04/05 documented as of this encounter
--- OUTSIDE RECORDS SUMMARY | 2024-07-12 00:33 | XMS_ITS | Encounter Summary ---
Author Organization [facility] [place] [address] Care Team Providers Care Police Commanding Officer Name Role Phone Nicolle Spencer MD Primary Care Provider Encounter Details Date Type Department Care Team (Late st Contact Info) Description 06/21/2016 Telephone Obstetrics [place] [phone] Basilia Tay RN Social History Tobacco Use Types Packs/Day Years Used Date Smoking Tobacco: Every Day Cigarettes Smokeless Tobacco: Never Alcohol Use Standard Drinks/Week Comments Yes 0 (1 standard drink = 0.6 oz pur e alcohol) at times Sex and Gender Information Value Date Recorded Sex Assigned at Not on file Gender Identity Not on file Sexual Orientation Not on file documented as of this encounter Miscellaneous Notes * Telephone Encounter - Basilia Tay RN - 06/21/2016 2:14 PM EDT TELEPHONE NOTE Caller: Pt Reason for call: I have an vaginal infection and think it is BV Assessment: Pt had surgery on 06/08/16 and had urethral suspension by . Pt calls today with noting a vaginal discharge with a foul odor for 2 to 3 days. Pt states I know what it is, I have had it before, it is BV Plan/Instructions: Appt made for assessment. documented in this encounter Plan of Treatment Upcoming Encounters Date Type Department Care Team (Late st Contact Info) Description 09/05/2024 9:00 AM EDT Office Visit Internal Medicine at [address] [address] Gema Oliveira DO [facility] [place] [address] documented as of this encounter Visit Diagnoses Not on filedocumented in this encounter Care Teams Police Commanding Officer Relationship Specialty Start Date End Date Nicolle Spencer MD [facility] [place] [address] PCP - General 01/21/15 12/05/16 documented as of this encounter
--- OUTSIDE RECORDS SUMMARY | 2024-07-12 00:33 | XMS_ITS | Encounter Summary ---
Author Organization [facility] Address [facility] [place] [address] Care Team Providers Care Can Bander Operator Name Role Phone Nicolle Spencer MD Primary Care Provider [phone] Encounter Details Date Type Department Care Team (Late st Contact Info) Description 02/29/2016 8:00 AM EDT Clinical [place] [phone] Headache(784.0) Social History Tobacco Use Types Packs/Day Years Used Date Smoking Tobacco: Every Day Cigarettes 0.5 25 Smokeless Tobacco: Never Comments:chantix helped Alcohol Use Standard Drinks/Week Comments Yes 0 (1 standard drink = 0.6 oz pur e alcohol) socially Sex and Gender Information Value Date Recorded Sex Assigned at Not on file Gender Identity Not on file Sexual Orientation Not on file documented as of this encounter Progress Notes * Zina Landeros RN - 02/29/2016 9:50 AM EDT DHE teaching: DHE 1 mg injection Medication comes in an ampule ?Break the ampule and draw up the medication with the filter needle ?Change out the needle ?? Prepare the skin on your lateral thigh - clean it off with an alcohol swab ?Place the needle in the skin ?Gently draw back on the syringe to ensure you are not in a blood vessel ?Inject the medication ?? You can repeat the process in the opposite thigh in 2 hours if the headache has not resolved. Limit2 days per week Instructed, and demonstrated technique for DHE administration with patient including opening DHE ampule, changing syringe to a filter tip needle, drawing up the medication with filter tip needle, changing needle to injection tip syringe, cleaning injection site, identifying injection site, and injection instructions. After patient was comfortable with this, patient demonstrated technique. Patientreports feeling comfortable with the process of medication administration. Patient self-administered DHE medication as she has a headache. Patient was successful in administration. She will repeat additional injection if headache does not resolve in two hours. Patient also reports nausea from headache medication and states she does not have medications at home for nausea other than phenergan suppositories. She states the suppositories make her sleep when she takes them and she would like an alternative medication that would allow her to continue to perform her daily duties when her nausea acts up that doesn't make her sleepy. I let her know I would check with Dr. Mark and would request phenergan oral tablets for nausea with DHE injections. ? documented in this encounter Plan of Treatment Upcoming Encounters Date Type Department Care Team (Late st Contact Info) Description 09/05/2024 9:00 AM EDT Office Visit Internal Medicine at [address] [address] Gema Oliveira, [facility] [place] [address] documented as of this encounter Visit Diagnoses Diagnosis Headache(784.0) Headache documented in this encounter Care Teams Can Bander Operator Relationship Specialty Start Date End Date Nicolle Spencer MD [facility] [place] [address] PCP - General 01/21/15 12/05/16 documented as of this encounter
--- OUTSIDE RECORDS SUMMARY | 2024-07-12 00:33 | XMS_ITS | Encounter Summary ---
Author Organization [facility] Address [facility] [place] [address] Care Team Providers Care Web Site Specialist Name Role Phone Nicolle Spencer MD Primary Care Provider Reason for Visit * Reason Onset Date Comments Other 03/02/2016 headache Encounter Details Date Type Department Care Team (Late st Contact Info) Description 03/02/2016 [place] [address] Gracie Mark MD [facility] [place] [address] Other (headache) Social History Tobacco Use Types Packs/Day Years [...] Telephone Encounter - Zina Landeros RN - 03/02/2016 5:15 PM EDT I reviewed the Prednisone risks with patient, It has been determined that the use of oral steroidsfor headache treatment is in your best interest. There are potential adverse drug reactions including but not limited to restlessness, inability to sleep, metabolic abnormalities, and aseptic necrosis of joints, increased risk for infection, increased blood sugars, and mood changes. I advised patient to avoid NSAIDs and aspirin products while taking prednisone due to the risk of bleeding. Patient verbalized understanding and would like to proceed. Called in Rx to patient's pharmacy. * Telephone Encounter - Gracie Mark MD - 03/02/2016 4:57 PM EDT Have we done a prednisone taper for? Prednisone 10mg tablets 60 mg = 6 tablets x 3 days 40mg = 4 tablets x 3 days 20mg = 2 tablets x 3 days 10mg = 1 tablet x 3 days discontinue Dispense # 39 tablets Gracie Mark MD [facility] Neurology Allergies Allergen Reactions ??? Bactrim [Sulfamethoxazole-Trimethoprim] Anaphylaxis ??? Aleve [Naproxen Sodium] Rash Per neuro team, patient has tolerated ketorolac in the past ??? Keflex [Cephalexin] Other (See Comments) Racing heart ??? Meloxicam Nausea Only * Telephone Encounter - Zina Landeros RN - 03/02/2016 4:43 PM EDT Patient called today stating she has a terrible headache today. She states she used her DHE injections x2 on Monday which did not break her headache completely. I recommended yesterday that she try to use her suppositories and states she used two suppositories this morning around 730 and was able to sleep for about three hours. She woke up with a moderate headache that has continued to build throughout the day. Right now she states it is an 10/10 and she thinks she may have passed out in the shower from the pain. She is nauseated and has photophobia. She is wondering what to try next. I let her know I would check with Dr. Mark and would call her back. . documented in this encounter Plan of Treatment Upcoming Encounters Date Type Department Care Team (Late st Contact Info) Description 09/05/2024 9:00 AM EDT Office Visit Internal Medicine at [address] [address] Gema Oliveira, [facility] [place] [address] documented as of this encounter Visit Diagnoses Diagnosis Headache(784.0) Headache documented in this encounter Care Teams Web Site Specialist Relationship Specialty Start Date End Date Nicolle Spencer MD [facility] [address] [address] PCP - General 01/21/15 12/05/16 documented as of this encounter
--- OUTSIDE RECORDS SUMMARY | 2024-07-12 00:33 | XMS_ITS | Encounter Summary ---
[place] [address] Care Team Providers Care Bee Keeper Name Role Phone Nicolle Spencer MD Primary Care Provider [phone] Reason for Visit * Auth/Cert Specialty Diagnoses / Procedures Referred By María Elena t Referred To Contact Diagnoses Mixed incontinence Mixed urinary incontinence Procedures PRO SLING OPER STRES INCONTINENCE URETHRAL SUSPENSION, SLING\FASCIA OR SYNTHETIC Referral ID Status Reason Start Date Expiration Date Visits Re quested Visits Authorized [id number] 1 1 Encounter Details Date Type Department Care Team (Late st Contact Info) Description 06/08/2016 7:29 AM EDT Anesthesia [place] [address] Nehemiah Ross MD [facility] [place] [address] Marino Graff DO [facility] [place] [address] Anesthesia Record Procedure Summary Procedure Name Responsible Anesthesiologist Anesthesia Start Time Anesthesia Stop Time URETHRAL SUSPENSION, SLING\FASCIA OR SYNTHETIC (WRVU 12.13) (Vagina ) Nehemiah Ross MD 06/08/16 0729 06/08/16 0847 Events Date Time Event Comment 06/08/2016 0729 AN Verify 0729 Start 0729 An Start Data 0733 An Induction 0735 An Intubation 0752 Anesthesia Ready 0818 0840 Extubation/LMA Out 0847 an stop data 0847 Recovery or ICU Handoff [place] ent care was transferred to the destination unit staff after review of the patient's medical history, current anesthetic/surgical status and plan, according to the Provider Handoff Checklist. 0847 Stop Meds Name Total Midazolam 2 mg fentaNYL 50 mcg IV Lidocaine 50 mg Propofol 200 mg PHENYLephrine 360 mcg Ondansetron 4 mg Dexamethasone 8 mg clindamycin (CLEOCIN) 600mg in dextrose 5% 50mL 600 mg gentamicin (GARAMYCIN) 240 mg in sodium chloride 0.9% 106 mL 240 mg Ketorolac 30 mg lactated ringers infusion 1,000 mL 0 mL * Agents Name O2 Air Sevoflurane (et) * Blood No blood administrations on file. Lines, Drains, and Airways Type Details Placement Removal Incision 06/08/16; perineum; 07/18/22 (LDA cleanup utility RA#[id number]); 1715 (LDA cleanup utility RA#[id number]) 06/08/16 0000 by Sadaf Love RN 07/18/22 1715 by Leydi Chew (RETIRED) Peripheral IV Line - Single Lumen 06/08/16; 0700; basilic vein right (medial side of arm); 18 gauge; Marbin Johnston RN; distraction, intradermal injection, tolerated well, appears comfortable; 06/08/16; 0952 06/08/16 0700 by Lissette Saravia RN 06/08/16 0952 by Rosie Kendall RN Supraglottic Mask Ventilation: No t Attempted (0); LMA Type: iGel; LMA Size: 4; Inserted by: marino graff do; Removal Date: 06/08/16; Removal Time: 83906/08/16 0752 by Marino Graff DO 06/08/16 0840 by Marino Graff DO Urethral Catheter 06/08/16; 0759; Genitourinary surgery; indwelling double lumen catheter; latex; 14; inserted at this facility; 1; 5; 10; none; drainage bag to dependent drainage; 06/08/16; 0820 06/08/16 0759 by Sadaf Love, VEL 06/08/16 0820 by Sadaf Love, VEL documented in this encounter Social History Tobacco [...] OR Notes * Anesthesia Postprocedure Evaluation - Marino Graff - 06/08/2016 9:04 AM EDT [facility] Department of Anesthesiology Post-procedure Note Patient: Tracie Layton Procedure Summary Date Anesthesia Start Anesthesia Stop Room / Location 06/08/[address] [place] [address] [facility] MAIN OR Procedure Diagnosis Surgeon Responsible Provider URETHRAL SUSPENSION, SLING\FASCIA OR SYNTHETIC (N/A Vagina ) Mixed stress and urge urinary incontinence (Mixed urinary incontinence) Frankie Richards MD Bertrand, Marc L, MD All Anesthesia Providers: Anesthesiologist: Nehemiah Ross MD Fabricating Machine Operator: Marino Graff DO Last (1hr) Vitals: BP 119/73 (06/08/16 0900) Temp 35.8 ??C (96.4 ??F) (06/08/16 0842) Pulse 86 (06/08/16 0842) Resp 16 (06/08/16 0900) SpO2 100 % (06/08/16 0900) Patient Location: PACU/[facility] Level of Consciousness: Conscious but Sleepy Pain Management: Satisfactory Analgesia PONV: None Cardiovascular Status: At Baseline and Hemodynamically Stable Respiratory Status: Supplemental O2 (NC or FM) Postoperative Fluid Status: Intravascular EUvolemia Possible Anesthetic Complications: NONE apparent at time of evaluation Final Primary Anesthesia Type: General (The anesthetic type performed was the same as planned.) Comments: MARINO GRAFF DO * Anesthesia Preprocedure Evaluation - Nehemiah Ross MD - 06/07/2016 5:06 PM EDT Pre-Anesthesia Evaluation for: Tracie Layton a 45 y.o. female. Procedure(s): URETHRAL SUSPENSION, SLING\FASCIA OR SYNTHETIC Patient Active Problem List Diagnosis ??? Mixed stress and urge urinary incontinence ??? Morbid obesity with BMI of 40.0-44.9, adult ??? Headache ??? Depression hx suicide attempt Past meds: Prozac, Lexapro, Effexor, Clonazepam, Decherd. None worked. Has chronic up and down [...] ??? Post concussive syndrome 05/31/2014 Past Medical History Diagnosis Date ??? ADHD (attention deficit hyperactivity disorder) ??? Agoraphobia ??? Alcohol abuse ??? Anxiety ??? Asthma ??? Cervical cancer 10/29/2014 Per pt in 2001, in [place], negative paps since? Chronic back pain ??? Depression hx suicide attempt ??? GERD (gastroesophageal reflux disease) ??? H/O suicide attempt 10/29/2014 Overdose in 1999 ??? History of cervical cancer 2001 s/p LEEP??? in [place] ??? HTN (hypertension) ??? Hyperlipidemia ??? Post-traumatic headache 09/29/2014 ??? Restless legs syndrome (RLS) ??? S/P tubal ligation 10/29/2014 Past Surgical History Procedure Laterality Date ??? Pro upper gi endoscopy, biopsy 01/08/2014 EGD WITH BIOPSY performed by Ilya Whitney MD at [facility] ENDOSCOPY ??? Cervix surgery LEEP ??? section ??? Pro colonoscopy, remv lesn, snare N/A 06/11/2015 COLONOSCOPY, POLYPECTOMY, REMOVAL LESION BY SNARE performed by Larry Ryan MD at [facility] ENDOSCOPY Social History Substance Use Topics ??? Smoking status: Current Every Day Smoker Packs/day: 0.50 Types: Cigarettes ??? Smokeless tobacco: Never Used ??? Alcohol use Yes Comment: at times History Drug Use No Allergies Allergen Reactions [...] Neck ROM: full Cardiovascular Assessment: Rhythm: regular (-) murmur Pulmonary Assessment: breath sounds clear to auscultation pulmonary exam normal Dental Assessment: - normal exam Misc Assessment: Patient is wearing No contact(s). IV access: Peripheral line Anesthesia Plan: ASA 3 general, with a(n) intravenous induction Tracie Layton is a 45 y.o. female smoker with history of morbid obesity, asthma, GERD, ETOH abuse scheduled for urethral sling implantation. Prn inhaler use w/o recent exacerbation. + daily tobacco use. GERD very well controlled on meds. Denies prior issues with anesthesia. NPO status verified. History was negative for seizures, CVA, cardiac disease, hepatic disease, endocrine disease, coagulopathy. No anesthetic or airway records for review Allergies reviewed Labs reviewed Exercise tolerance: less than 4 METS per chart review EKG: NSR, no signs of ischemia Echocardiogram: EF 65%, normal echocardiogram and normal stress echocardiogram NPO Status: --- Anesthetic Plan: GA with LMA Standard ASA monitoring Adequate IV access MARINO GRAFF, 06/07/2016 Region - Other Informed Consent: Anesthetic plan and risks discussed with patient. Use of blood products discussed with patient who. Plan discussed with attending. PAT Staff Note documented in this encounter Plan of Treatment Upcoming Encounters Date Type Department Care Team (Late st Contact Info) Description 09/05/2024 9:00 AM EDT Office Visit Internal Medicine at [address] [phone] Gema Oliveira, DO [facility] [place] [address] documented as of this encounter Visit Diagnoses Not on filedocumented in this encounter Administered Medications Inactive Administered Medications - up to 3 most recent administrations Medication Order MAR Action Action Date Dose Rate Site clindamycin (CLEOCIN) 600mg in dextrose 5% 50mL 1,200 mg, Intravenous, ONCE, 1 dose, On Mon06/08/16 at 0700, Administer over 20 Minutes, Give over 30-60 minutes. Do not exceed 30mg/minute. Redose every 6 hours if CrCl is greater than 20. Redose every 6 hours if CrCl is less than 20., Day of Surgery (Day of Procedure), Indication for (Active or Suspected): Prophylaxis Given 06/08/2016 7:52 AM EDT 600 mg dexamethasone (DECADRON) injection PRN, Starting on Mon06/08/16 at 0737, Until Mon06/08/16 at 0847, Anesthesia Intra-op, Routine Given 06/08/2016 7:37 AM EDT 8 mg fentaNYL 50 mcg/mL multi-dose injection PRN, Starting on Mon06/08/16 at 0748, Until Mon06/08/16 at 0847, Pain, Anesthesia Intra-op, Routine Given 06/08/2016 7:48 AM EDT 25 mcg Given 06/08/2016 7:37 AM EDT 25 mcg gentamicin (GARAMYCIN) 240 mg in sodium chloride 0.9% 106 mL 240 mg (2 mg/kg/dose ? 120 kg Order-specific weight), Intravenous, ONCE, 1 dose, On Mon06/08/16 at 0700, Administer over 60 Minutes, Consider alternative if CrCl is less than 20 or between 20-50., Day of Surgery (Day of Procedure), Indication for (Active or Suspected): Prophylaxis New Bag 06/08/2016 7:58 AM EDT 240 mg ketorolac (TORADOL) injection PRN, Starting on Mon06/08/16 at 0828, Until Mon06/08/16 at 0847, Pain, Anesthesia Intra-op, Routine Given 06/08/2016 8:28 AM EDT 30 mg lactated ringers infusion 1,000 mL 1,000 mL, at 100 mL/hr, Intravenous, CONTINUOUS, Starting on Mon06/08/16 at 0700, Until Mon06/08/16 at 0953, Day of Surgery (Day of Procedure) New Bag 06/08/2016 7:29 AM EDT lidocaine (PF) (XYLOCAINE) 100 mg/5 mL (2 %) injection PRN, Starting on Mon06/08/16 at 0733, Until Mon06/08/16 at 0847, Anesthesia Intra-op, Routine Given 06/08/2016 7:33 AM EDT 50 mg midazolam (PF) (VERSED) 1 mg/mL multi-dose injection PRN, Starting on Mon06/08/16 at 0722, Until Mon06/08/16 at 0847, Sleep, Anesthesia Intra-op, Routine Given 06/08/2016 7:22 AM EDT 2 mg ondansetron (ZOFRAN) injection PRN, Starting on Mon06/08/16 at 0829, Until Mon06/08/16 at 0847, Nausea, Anesthesia Intra-op, Routine Given 06/08/2016 8:29 AM EDT 4 mg PHENYLephrine HCl in NS (PF) (LUCHO-SYNEPHRINE) 0.8 mg/10 mL (80 mcg/mL) multi-dose injection Syrg PRN, Starting on Mon06/08/16 at 0756, Until Mon06/08/16 at 0847, Anesthesia Intra-op, Routine Given 06/08/2016 8:26 AM EDT 80 mcg Given 06/08/2016 8:16 AM EDT 120 mcg Given 06/08/2016 8:01 AM EDT 80 mcg propofol (DIPRIVAN) 10 mg/mL bolus injection (Anesthesia) PRN, Starting on Mon06/08/16 at 0733, Until Mon06/08/16 at 0847, Anesthesia Intra-op Given 06/08/2016 7:33 AM EDT 200 mg documented in this encounter Care Teams Bee Keeper Relationship Specialty Start Date End Date Nicolle Spencer MD [facility] [address] [place] [address] PCP - General 01/21/15 12/05/16 documented as of this encounter
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
--- OUTSIDE RECORDS SUMMARY | 2024-07-12 00:33 | XMS_ITS | Encounter Summary ---
Author Organization [facility] Address [facility] [place] [address] Care Team Providers Care Underpresser Hand Name Role Phone Nicolle Spencer MD Primary Care Provider Reason for Visit * Reason Comments Sinus Problem thinks she has a sin us infection Headache worse with the facia l pain Facial Pain Encounter Details Date Type Department Care Team (Late st Contact Info) Description 11/17/2016 10:00 AM EST Office Visit Internal Medicine at [address] [address] Froilan Crane MD [facility] [place] [address] Need for prophylactic vaccination and inoculation against influenza; Sinusitis, unspecified chronicity, unspecified location Social History Tobacco Use Types Packs/Day Years [...] Sign Reading Time Taken Comments Blood Pressure 137/89 11/17/2016 9:47 AM EST Pulse 100 11/17/2016 9:47 AM EST Temperature 36.8 ??C (98.2 ??F) 11/17/2016 9:47 AM ES T Respiratory Rate - - Oxygen Saturation 98% 11/17/2016 9:47 AM EST Inhaled Oxygen Concentration - - Weight 125.2 kg (276 lb) 11/17/2016 9:47 AM EST Height 177.8 cm (5' 10) 11/17/2016 9:47 AM EST reported Body Mass Index 39.6 11/17/2016 9:47 AM EST documented in this encounter Progress Notes * Froilan Crane MD - 11/17/2016 10:00 AM EST ESTABLISHED PATIENT VISIT I. HISTORY a. Reason(s) for Visit: Tracie Layton 45 y.o. female who presents today due to complaint(s) of: Chief Complaint Patient presents with ??? Sinus Problem thinks she has a sinus infection ??? Headache worse with the facial pain ??? Facial Pain b. History of Present Illness:[] Pt having a lot of facial R side more pain. Having chills. No cough. Going on for about 1 week. Sinus congestion. Worsening her chronic headaches. c. Review of Systems: Constitutional - see HPI Cardiovascular - No CP, palpitations, angina, BAUMANN, SOB Respiratory - No SOB, BAUMANN, wheeze, cough, sputum production HEENT - see hPI Gastrointestinal - No abdominal pain, nausea, GERD, constipation, diarrhea, blood in stool Musculoskeletal - No weakness, pain at rest or with movement All other systems negative d. H Patient Active Problem List Diagnosis ??? Postoperative examination ??? Mixed stress and urge urinary incontinence ??? Morbid obesity with BMI of 40.0-44.9, adult ??? Headache ??? Depression hx suicide attempt Past meds: Prozac, Lexapro, Effexor, Clonazepam, [place]. None worked. Has chronic up and down [...] Yes Comment: Occasional II. PHYSICAL EXAM: BP 137/89 (BP Location (NBP): Left arm, Patient Position: Sitting, BP Cuff Sizes: Large Adult (32-43 cm)) Pulse 100 Temp 36.8 ??C (98.2 ??F) (Oral) Ht 177.8 cm (5' 10) Comment: reported Wt (!) 125.2kg (276 lb) SpO2 98% BMI 39.6 kg/m2 General - No acute distress, conversing without difficulty. ENT - oropharynx without lesions, Very ttp and percussion over R maxillary and frontal sinuses, nasal mucosa erythematous and some purulent drainage noted R inferior turbinate. Eyes - EOMI. No scleral icterus Neck - No lymphadenopathy, supple, no masses Lungs - Clear to auscultation Extremities - No clubbing, cyanosis or edema. Pulses intact. III. ASSESSMENT/PLAN:Tracie Layton 45 y.o. female presenting with likely sinus infection, given having chills and amount of discomfort with unilateral pain will treat with abx. Tracie was seen today for sinus problem, headache and facial pain. Diagnoses and all orders for this visit: Need for prophylactic vaccination and inoculation against influenza - Flu vaccine greater than or equal to 3yo preservative free Sinusitis, unspecified chronicity, unspecified location - amoxicillin-clavulanate (AUGMENTIN) 875-125 mg Tablet; Take 1 tablet by mouth 2 times daily. - Recommend probiotic F/u if not improving or worsens Meds reconciled documented in this encounter Plan of Treatment Upcoming Encounters Date Type Department Care Team (Late st Contact Info) Description 09/05/2024 9:00 AM EDT Office [place] [address] Gema Oliveira, [facility] [place] [address] documented as of this encounter Visit Diagnoses Diagnosis Need for prophylactic vaccination and inoculation against influenza Sinusitis, unspecified chronicity, unspecified location documented in this encounter Care Teams Underpresser Hand Relationship Specialty Start Date End Date Nicolle Spencer MD [facility] [address] [address] PCP - General 01/21/15 12/05/16 documented as of this encounter
--- OUTSIDE RECORDS SUMMARY | 2024-07-12 00:33 | XMS_ITS | Encounter Summary ---
Author Organization [facility] Address [facility] [place] [address] Care Team Providers Care Surface Plate Inspector Name Role Phone Nicolle Spencer MD Primary Care Provider [phone] Reason for Visit * Auth/Cert Specialty Diagnoses / Procedures Referred By María Elena t Referred To Contact Diagnoses Mixed incontinence Mixed urinary incontinence Procedures PRO SLING OPER STRES INCONTINENCE URETHRAL SUSPENSION, SLING\FASCIA OR SYNTHETIC Referral ID Status Reason Start Date Expiration Date Visits Re quested Visits Authorized [id number] 1 1 Encounter Details Date Type Department Care Team (Late st Contact Info) Description 06/08/2016 7:30 AM EDT - 06/08/2016 9:17 AM EDT [place] [address] Frankie Fontaine MD [facility] DR OBSTETRICS [place] [address] URETHRAL SUSPENSION, SLING\FASCIA OR SYNTHETIC (WRVU 12.13) Social History Tobacco Use Types Packs/Day Years [...] Sign Reading Time Taken Comments Blood Pressure 116/75 06/08/2016 9:15 AM EDT Pulse 86 06/08/2016 8:42 AM EDT Temperature 35.8 ??C (96.4 ??F) 06/08/2016 8:42 AM ED T Respiratory Rate 17 06/08/2016 9:15 AM EDT Oxygen Saturation 99% 06/08/2016 9:15 AM EDT Inhaled Oxygen Concentration - - Weight 128.8 kg (284 lb) 06/08/2016 6:20 AM EDT Height 177.8 cm (5' 10) 06/08/2016 6:20 AM EDT Body Mass Index 40.75 06/08/2016 6:20 AM EDT documented in this encounter Discharge Instructions * Discharge Instructions* Rosie Kendall RN - 06/08/2016 9:04 AM EDT POST ANESTHESIA INSTRUCTIONS Go home, rest, use caution on stairs. Change positions slowly. Do not smoke if you are alone. Diet light to regular as tolerated today. If nausea occurs start with clear liquids and progress slowly. No driving, operating machinery, alcoholic beverages and no important decisions for 24 hours. Monitor IV site for signs and symptoms of infection: increasing redness, swelling, foul drainage, if occurs contact M.D. Patients who have had endotrachial tubes (this tube, used by anesthesia department, is passed down your throat after you are asleep, to ensure safe air passage during your operation). A sore throat is normal due to the tube. Cold liquids or soothing lozenges will help ease the discomfort. The generalized muscle aches are due to the medication given to you just before the tube is inserted. As the medication wears off, you may develop muscle soreness, which usually goes away in 12-24 hours. * Patient Instructions* Tatyana Higgins MD - 06/08/2016 6:56 AM EDT Images from the original note were not included. Follow up appointments and recommendations: 07/18/[address] Charles Patient Discharge Instructions: Special Physician Instructions: If you are still needing a catheter to drain your bladder, please follow the instructions given to you separately for when to use the catheter and how to care for it. In addition, please call to check in with the urogynecology office nurse at [phone] to review how your bladder is working and when the catheter use can be discontinued. For problems or concerns related to this hospitalization call: [phone] weekdays, or [phone] weekends or nights. Call your doctor if you develop: --A fever over 101 degrees F --Severe pain -- Nausea / vomiting, diarrhea, intolerance of food or drink --Heavy vaginal bleeding --Urinary frequency, urgency, or feeling of incomplete emptying of the bladder --If your wound is red, hot, swollen, tender or draining yellow/green fluid Activity level: You should be able to resume your usual activities of daily living (eating, drinking, washing, walking.). You can walk or climb stairs as long as you are not straining. You should avoid more vigorous exercise for at least 6 weeks. No lifting, pushing or pulling greater than 5-10 pounds for 6 weeks. No sexual intercourse and place nothing in the vagina for 6 weeks. Diet: Regular as tolerated, drink plenty of fluids. Use a stool softener (Colace) twice daily and Metamucil or Citrucel once or twice daily to keep your bowel movement soft and regular, so you do nothave to strain. Driving: Do not drive until you are off of all narcotic medications and you are not feeling pain; usually about 1-2 weeks. Shower/Bath: Showering is fine. Do not soak in a tub for two weeks following surgery, this may cause your stitches to dissolve too early. Wound Care: Most women will experience some vaginal bleeding and discharge after surgery. You will want to havesome menstrual pads at home. Pain Control: Alternate 650 mg tylenol and 600 mg ibuprofen every 3 hours for pain control. Do not take more opdw5624 mg tylenol in 24 hour period. Use oxycodone as prescribed for breakthrough pain. documented in this encounter Medications at Time of Discharge Medication Sig Dispensed Refills Start Date End Date oxyCODONE (ROXICODONE) 5 mg Tablet TK 1 TO 2 TS PO Q 4 H PRN P 0 06/08/2016 08/04/2016 oxyCODONE (ROXICODONE) 5 mg Tablet Take 1-2 tablets by mouth every 4 hours as needed for Pain. If pain 4-6/10 take 1 tablet If pain 7-10/10 take 2 tablets 15 tablet 06/08/2016 06/21/2016 omeprazole (PRILOSEC) 40 mg Capsule, Delayed Release(E.C.)Indications :Gastroesophageal reflux disease without esophagitis Take 1 capsule by mouth daily. 90 capsule 3 11/06/2015 01/09/2017 pramipexole (MIRAPEX) 0.5 mg TabletIndications:restle ss leg syndrome Take 1-2 tablets by mouth nightly. Indications: Restless Legs Syndrome 180 tablet 3 10/19/2015 04/19/2017 albuterol (PROVENTIL HFA;VENTOLIN HFA;PROAIR) 90 mcg/actuation HFA Aerosol InhalerIndications:Asthm a, mild intermittent, uncomplicated Inhale 2 puffs into the lungs every 4 hours as needed. Use with spacer 1 Inhaler 3 08/24/2015 10/04/2016 documented as of this encounter Progress Notes * Rosie Kendall RN - 06/08/2016 9:49 AM EDT Bladder backfill 300 ml-300ml returned. documented in this encounter H&P Notes * Frankie Fontaine MD - 06/08/2016 6:32 AM EDT Inpatient [employer]PLICATION DEVELOPER - Admission Interval Note I have reviewed the pre-procedure H&P completed by Bhavya Mtz APRN on 06/03/2016. (X) Condition unchanged since H&P originally performed. OR ( ) Condition changed since H&P originally performed. See interval note below. Interval Note: Tracie Layton is a 45 y.o. here for Mid urethral sling for stress urinary incontinence. Vitals: 06/08/16 0620 BP: 120/75 Pulse: 107 Resp: 16 Temp: 37 ??C (98.6 ??F) Gen: Pleasant. Resting comfortably in bed. NAD. Neuro: Alert and oriented. Cardiac: RRR. No murmurs, rubs, or gallops. Pulm: CTAB. No wheezes, rales, or rhonci. Proceed to OR A copy of this document will be sent to the patient's Primary Care Physician and/or Referring Physician. KELLY CANCHOLA MD 06/08/2016 I met with Ms. Layton as well this morning and also on 03/28/16. She has mixed urinary incontinence. She agrees to proceed with a mid-urethral sling to treat the stress urinary incontinence. She deniesinterval health changes. FRANKIE FONTAINE MD documented in this encounter Miscellaneous Notes * Op Note - Frankie Fontaine MD - 06/08/2016 9:13 AM EDT [facility] [place] Patient Name: Tracie Layton : [id number] MR#: [id number] Case Date: 06/08/2016 Surgeon: Surgeon(s) and Role: * Frankie Fontaine MD - Primary * Kelly Canchola MD - Resident-Surgeon Bernardo * Tatyana Higgins MD - Resident-Surgeon Bernardo Preoperative diagnosis: Mixed urinary incontinence Postoperative diagnosis: Mixed urinary incontinence Procedure(s): URETHRAL SUSPENSION, SLING\FASCIA OR SYNTHETIC (trans-obturator mid-urethral sling (Desara)) Anesthesia: General, laryngeal mask Estimated Blood Loss: 75 mL Fluids In: 600 mL crystalloid Fluids Out: 10 ml urine Specimens removed during surgery: None Drains: Young to gravity bag drainage Surgical Closure: Primary Closure - closure of [...] this patient.) HPI/Surgical Indications: Ms. Layton is a 45 year old woman with symptomatic mixed urinary incontinence. She has confirmed stress urinary incontinence based on cough stress testing. Procedure Description: Patient was positioned in the dorsal lithotomy position in adjustable Yellowfin stirrups in what was felt to be a neurologically safe positioning. She had knee-high intermittent pneumatic compression stockings in place throughout the procedure. She received clindamycin and gentamicin IV prior to incision. Exam under anesthesia was performed. She was prepped and draped in the usual sterile fashion. A time out protocol was adhered to, confirming the patient's identity, planned procedure and safety measures. A site just lateral to the ischiopubic ramus at junction between the adductor longus and gracilis muscles was identified and injected with 5 mL of 0.25% bupivacaine. This was repeated on the oppositeside. Stab wound incisions were made in the skin at both sites. The mid-urethra was identified withaid of a urethral catheter. The mid-urethral vaginal wall was infiltrated with 1% lidocaine with epinephrine, extending out to the sulci bilaterally. A 2 cm vertical incision was in the suburethral vagina and a full thickness dissection performed in the paraurethral space out to the inferior pubic rami bilaterally. A helical Ivan needle was used to hickman the obturator foramen via the lateral skin incision. The needle was aligned with the handle pointing to the ipsilateral ischial tuberosity. This was performed bilaterally. The Desara polypropylene sling was attached to the needle and retrieved. This was performed bilaterally. Cystoscopy was performed with a 70-degree cystoscope with reassuring findings. The mesh was tensioned with a right angle clamp holding a knuckle of mesh measuring ~10 mm at the suburethral portion. With traction on both arms, the knuckle was snugged up to the mid-urethra. The mesh was deployed by removing the protective plastic coating bilaterally. There was some bleeding at the vaginal incision,well controlled after pressure was applied for several minutes. The vaginal wall was reapproximatedwith 2-0 Vicryl in a running fashion. The obturator skin incisions were reapproximated with DermaBond glue. Sponge and needle counts were correct at the conclusion of the procedure. Infection Bundle used? N/A Attestation: Case Date: 06/08/2016 I was present and I participated during the entire procedure (does not need to include opening and closing). FRANKIE FONTAINE MD 06/08/2016 * Brief Op Note - Frankie Fontaine MD - 06/08/2016 8:36 AM EDT Brief Operative Note Patient Name: Tracie Layton : [id number] MR#: [id number] Case Date: 06/08/2016 Surgeon: Surgeon(s) and Role: * Frankie Fontaine MD - Primary * Kelly Canchola MD - Resident-Surgeon Bernardo * Tatyana Higgins MD - Resident-Surgeon Bernardo Preoperative diagnosis: Mixed urinary incontinence Postoperative diagnosis: Mixed urinary incontinence Procedure(s): URETHRAL SUSPENSION, SLING\FASCIA OR SYNTHETIC Anesthesia: General Findings: Cystoscopy with normal ureteral orifices bilaterally. Moderate trabeculatons. Normal bladder, urethral mucosa. Complications: none Fluids In: 600 mL crystalloid Fluids Out: 10 mL urine Estimated Blood Loss: 75 mL Drains: Young to gravity bag drainage Disposition: awakened from anesthesia, extubated and taken to the recovery room in a stable condition, having suffered no apparent untoward event. Condition: doing well without problems Infection Bundle used? N/A Attestation: Case Date: 06/08/2016 I was present and I participated during the entire procedure (does not need to include opening and closing). (Please see the Surgical Encounter Summary for any Implant and Specimen details pertinent to this patient.) documented in this encounter Plan of Treatment Upcoming Encounters Date Type Department Care Team (Late st Contact Info) Description 09/05/2024 9:00 AM EDT Office Visit Internal Medicine at [address] [id number] Gema Oliveira [facility] GENER[facility] [place] [address] documented as of this encounter Procedures Procedure Name Priority Date/Time Associated Diagnosis Comments URETHRAL SUSPENSION, SLING\FASCIA OR SYNTHETIC (WRVU 12.13) 06/08/2016 7:26 AM EDT Mixed stress and urge urinary incontinence documented in this encounter Visit Diagnoses Diagnosis Mixed stress and urge urinary incontinence- Primary Mixed incontinence urge and stress (male)(female) Mixed stress and urge urinary incontinence Mixed incontinence urge and stress (male)(female) Mixed stress and urge urinary incontinence Mixed incontinence urge and stress (male)(female) documented in this encounter Administered Medications Inactive Administered Medications - up to 3 most recent administrations Medication Order MAR Action Action Date Dose Rate Site BUpivacaine (PF) (MARCAINE) 0.25 % (2.5 mg/mL) injection ONCE PRN, Starting on Mon06/08/16 at 0802, Until Mon06/08/16 at 1159, Intra-Operative (Intra-Procedure), Routine Given 06/08/2016 8:02 AM EDT 18 mg HYDROmorphone (DILAUDID) syringe 0.2-0.4 mg 0.2-0.4 mg, Intravenous, EVERY 5 MIN PRN, Pain, Starting on Mon06/08/16 at 0846, Until Mon06/08/16 at 0953, For moderate pain (4-6) give: 0.2 mg every 5 minute prn For severe pain (7-10) give: 0.4 mg every 5 minutes prn Maximum dose: 4 mg per hour Hold for respiratory rate less than 10 per minute., PACU Recovery Given 06/08/2016 8:57 AM EDT 0.4 mg lidocaine-EPINEPHrine 1 %-1:200,000 injection ONCE PRN, Starting on Mon06/08/16 at 0802, Until Mon06/08/16 at 1159, Intra-Operative (Intra-Procedure), Routine Given 06/08/2016 8:02 AM EDT 7 mLs documented in this encounter Active and Recently Administered Medications Times are shown in EDT. Scheduled Medication Order 06/06/2016 06/07/2016 06/08/2016 acetaminophen (TYLENOL) tablet 650 mg 650 mg, Oral, EVERY 6 HOURS SCHEDULED, First dose on Mon06/08/16 at 1200, Until Discontinued, Use acetaminophen first, Routine clindamycin (CLEOCIN) 600mg in dextrose 5% 50mL (COMPLETED) 1,200 mg, Intravenous, ONCE, 1 dose, On Mon06/08/16 at 0700, Administer over 20 Minutes, Give over 30-60 minutes. Do not exceed 30mg/minute. Redose every 6 hours if CrCl is greater than 20. Redose every 6 hours if CrCl is less than 20., Day of Surgery (Day of Procedure), Indication for (Active or Suspected): Prophylaxis 0752 (Given - Provid er: Marino Lino - Comment: over 30 minutes) gentamicin (GARAMYCIN) 240 mg in sodium chloride 0.9% 106 mL (COMPLETED) 240 mg (2 mg/kg/dose ? 120 kg Order-specific weight), Intravenous, ONCE, 1 dose, On Mon06/08/16 at 0700, Administer over 60 Minutes, Consider alternative if CrCl is less than 20 or between 20-50., Day of Surgery (Day of Procedure), Indication for (Active or Suspected): Prophylaxis 0758 (New Bag - Prov ider: Marino Lino - Comment: over 30 minutes) sodium chloride 0.9 % flush 5 mL 5 mL, Intravenous, 2 TIMES DAILY, First dose on Mon06/08/16 at 0900, Until Discontinued, Routine 0900 (Due) Continuous Medication Order 06/06/2016 06/07/2016 06/08/2016 lactated ringers infusion 1,000 mL 1,000 mL, at 100 mL/hr, Intravenous, CONTINUOUS, Starting on Mon06/08/16 at 0700, Until Mon06/08/16 at 0953, Day of Surgery (Day of Procedure) 07 (New Bag - Prov ider: Marino Lino) lactated ringers infusion 1,000 mL 1,000 mL, at 100 mL/hr, Intravenous, CONTINUOUS, Starting on Mon06/08/16 at 0900, Until Mon06/08/16 at 1159 0900 (Due) PRN Medication Order 06/06/2016 06/07/2016 06/08/2016 BUpivacaine (PF) (MARCAINE) 0.25 % (2.5 mg/mL) injection (CANCELED) ONCE PRN, Starting on Mon06/08/16 at 0802, Until Mon06/08/16 at 1159, Intra-Operative (Intra-Procedure), Routine 0802 (Given - Provid er: Frankie Fontaine MD) HYDROmorphone (DILAUDID) injection 0.2 mg 0.2 mg, Intravenous, ONCE PRN, 1 dose, Starting on Mon06/08/16 at 0834, Until Mon06/08/16 at 1159, Pain, severe or breakthrough pain, Routine HYDROmorphone (DILAUDID) syringe 0.2-0.4 mg (CANCELED) 0.2-0.4 mg, Intravenous, EVERY 5 MIN PRN, Pain, Starting on Mon06/08/16 at 0846, Until Mon06/08/16 at 0953, For moderate pain (4-6) give: 0.2 mg every 5 minute prn For severe pain (7-10) give: 0.4 mg every 5 minutes prn Maximum dose: 4 mg per hour Hold for respiratory rate less than 10 per minute., PACU Recovery 0857 (Given - Provid er: Mayda Oreilly RN) lidocaine (XYLOCAINE) 10 mg/mL (1 %) injection 3 mg 3 mg (0.3 mL), Subcutaneous, ONCE PRN, 1 dose, Starting on Mon06/08/16 at 0642, Until Mon06/08/16 at 0953, for discomfort with PIV insertion, Day of Surgery (Day of Procedure), Routine lidocaine (XYLOCAINE) 10 mg/mL (1 %) injection 3 mg 3 mg (0.3 mL), Subcutaneous, ONCE PRN, 1 dose, Starting on Mon06/08/16 at 0833, Until Mon06/08/16 at 1159, for discomfort with PIV insertion, Routine lidocaine-EPINEPHrine 1 %-1:200,000 injection (CANCELED) ONCE PRN, Starting on Mon06/08/16 at 0802, Until Mon06/08/16 at 1159, Intra-Operative (Intra-Procedure), Routine 0802 (Given - Provid er: Frankie Fontaine MD) oxyCODONE (ROXICODONE) immediate release tablet 5-10 mg 5-10 mg, Oral, EVERY 3 HOURS PRN, Starting on Mon06/08/16 at 0834, Until Mon06/08/16 at 1159, Pain, If pain 4-6/10 give 5 mg, If pain 7-10/10 give 10 mg, Routine sodium chloride 0.9 % flush 5-20 mL 5-20 mL, Intravenous, EVERY 1 MIN PRN, Starting on Mon06/08/16 at 0642, Until Mon06/08/16 at 0953, flush, Flush pertains to all indwelling lines. Flush per protocol found in the job aid using the link provided on this medication record., Day of Surgery (Day of Procedure), Routine sodium chloride 0.9 % flush 5-20 mL 5-20 mL, Intravenous, EVERY 1 MIN PRN, Starting on Mon06/08/16 at 0833, Until Mon06/08/16 at 1159, flush, Flush pertains to all indwelling lines. Flush per protocol found in the job aid using the link provided on this medication record., Routine documented in this encounter Care Teams Surface Plate Inspector Relationship Specialty Start Date End Date Nicolle pSencer MD [facility] DR [facility]NAL [facility] [place] [address] PCP - General 01/21/15 12/05/16 documented as of this encounter
--- OUTSIDE RECORDS SUMMARY | 2024-07-12 00:33 | XMS_ITS | Encounter Summary ---
Author Organization [facility] Address [facility] [place] [address] Care Team Providers Care Mill Feeder Name Role Phone Nicolle Spencer MD Primary Care Provider [phone] Reason for Visit * Reason Onset Date Comments Headache 02/26/2016 migraine Encounter Details Date Type Department Care Team (Late st Contact Info) Description 02/26/2016 [place] [address] Gracie Mark MD [facility] [address] Headache (migraine) Social History Tobacco Use Types Packs/Day Years [...] Telephone Encounter - Zina Landeros RN - 02/26/2016 5:05 PM EDT Called patient and let her know I sent her suppositories to her pharmacy and that Dr. Mark approved her use of DHE injections. 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 I will order her supplies so the pharmacy will have them in stock for her once her teaching is done. * Telephone Encounter - Gracie Mark MD - 02/26/2016 4:03 PM EDT Totally good with DHE injections DHE 1 mg injection Medication comes in [...] Do not combine with the Nasal spray [place]acie Mark [place] [facility] * Telephone Encounter - Zina Landeros RN - 02/26/2016 3:17 PM EDT Patient calling today with a migraine that started 20 minutes ago. She just got out of the hospitalfor a headache admission yesterday. She states her insurance will not cover any naratriptan so she is without any medication for acute migraines right now. She needs phenergan suppositories called in. I wonder if she can have DHE injections at home during the month of her methergine holiday and will ask Dr. Mark if that is okay and if so, will see if her insurance will cover that. documented in this encounter Plan of Treatment Upcoming Encounters Date Type Department Care Team (Late st Contact Info) Description 09/05/2024 9:00 AM EDT Office Visit Internal Medicine at [address] [address] Gema Oliveira, [facility] [address] documented as of this encounter Visit Diagnoses Diagnosis Headache(784.0) Headache documented in this encounter Care Teams Mill Feeder Relationship Specialty Start Date End Date Nicolle Spencer MD [facility] DR [facility] [place] [address] PCP - General 01/21/15 12/05/16 documented as of this encounter
--- OUTSIDE RECORDS SUMMARY | 2024-07-12 00:33 | XMS_ITS | Encounter Summary ---
Author Organization [facility] Address [facility] [place] [address] Care Team Providers Care Compensation Associate Name Role Phone Nicolle Spencer MD Primary Care Provider [phone] Reason for Visit * Reason Onset Date Comments Post Hospital Discharge 02/26/2016 Encounter Details Date Type Department Care Team (Late st Contact Info) Description 02/26/2016 Telephone Internal Medicine at [address] [address] [place] [address] Post Hospital Discharge Social History Tobacco Use Types Packs/Day Years [...] encounter Miscellaneous Notes * Telephone Encounter - Stephanie Brian RN - 02/26/2016 2:06 PM EDT Care Coordination Note - GI - [place] Transition of Care call to f/u after [facility] admission for DHE protocol for migraines. She is now off of methergine. She was discharged home with a new prescription for naratriptan prn for migraine. I spoke with her this afternoon and she tells me that she cannot afford naratriptan. In addition, she has been on it before and it was not effective. Before I try to find a way for her to get this medication, she agrees to call Dr. Mark's office to see if there is an alternative medication. Luckily, she has been migraine free since discharge. She will call me if she needs any assistance obtaining medication. She knows she has f/u a week from Monday with Neurology. documented in this encounter Plan of Treatment Upcoming Encounters Date Type Department Care Team (Late st Contact Info) Description 09/05/2024 9:00 AM EDT Office Visit Internal Medicine at [address] [address] Gema Oliveira, [facility] [address] [facility] [address] documented as of this encounter Visit Diagnoses Not on filedocumented in this encounter Care Teams Compensation Associate Relationship Specialty Start Date End Date Nicolle Spencer MD [facility] DR [facility] [place] [address] PCP - General 01/21/15 12/05/16 documented as of this encounter
--- OUTSIDE RECORDS SUMMARY | 2024-07-12 00:33 | XMS_ITS | Encounter Summary ---
Author Organization [place] [address] Care Team Providers Care Admissions Manager Rn Name Role Phone Nicolle Spencer MD Primary Care Provider [phone] Reason for Visit * Reason Onset Date Comments Post Procedure Call 06/09/2016 Encounter Details Date Type Department Care Team (Late st Contact Info) Description 06/09/2016 Telephone Obstetrics [place] [phone] Basilia Tay RN Post Procedure Call Social [...] Telephone Encounter - Basilia Tay RN - 06/09/2016 1:25 PM EDT POST-OP TELEPHONE UPDATE Date of Surgery: 06/08/16 URETHRAL SUSPENSION, SLING\FASCIA OR SYNTHETIC Overall well-being: I am doing better Pain?: 01/27 Pain medication working(Y/N)?: Used Oxycodone a couple of times with relief Location of pain: Groin area Bladder function: voiding without difficulty and emptying bladder Bowel function: No BM but passing flatus Ambulating: yes Tolerating solids / liquids: yes Dressings: none Incisions: clean, dry and intact Vaginal bleeding: spotting Fever: none Post Op appointment booked? appt booked Instructions: We reviewed phone contacts. The patient will call triage at during daytime hours or during the evening or weekends and ask for the pipe liner operations manager/coordinator if she is having problems. BASILIA TAY, RN documented in this encounter Plan of Treatment Upcoming Encounters Date Type Department Care Team (Late st Contact Info) Description 09/05/2024 9:00 AM EDT Office Visit Internal Medicine at [address] [address] Gema Oliveira, [facility] [address] [place] [address] documented as of this encounter Visit Diagnoses Not on filedocumented in this encounter Care Teams Admissions Manager Rn Relationship Specialty Start Date End Date Nicolle Spencer MD [facility] [address] INTERNAL [facility] [place] [address] PCP - General 01/21/15 12/05/16 documented as of this encounter
--- OUTSIDE RECORDS SUMMARY | 2024-07-12 00:33 | XMS_ITS | Encounter Summary ---
Author Organization [facility] Address [facility] [place] [address] Care Team Providers Care Manager Technology Name Role Phone Nicolle Spencer MD Primary Care Provider Reason for Referral * Consultation (Routine) - Closed Specialty Diagnoses / Procedures Referred By María Elena t Referred To Contact Thoracic Surgery Diagnoses Tobacco abuse Nicolle Spencer MD [facility] [address] [facility] [place] [address] Leah Cruz APRN [facility] [place] [address] Referral ID Status Reason Start Date Expiration Date V isits Requested Visits Authorized [id number] Closed Consult, Test & Treat 07/19/2016 07/19/2017 1 1 Reason for Visit * Reason Comments Medication Check Pt starting college next week. Would like something to help her focus. Also wants to discuss chantix. Encounter Details Date Type Department Care Team (Late st Contact Info) Description 07/19/2016 8:00 AM EDT Office Visit Internal Medicine at [address] [address] Nicolle Spencer MD [facility] [address] [facility] [place] [address] Persistent mood disorder; Tobacco abuse; ADD (attention deficit disorder) (ADHD) Social History Tobacco Use Types Packs/Day Years [...] Sign Reading Time Taken Comments Blood Pressure 139/83 07/19/2016 8:12 AM EDT Pulse 92 07/19/2016 8:12 AM EDT Temperature 37.1 ??C (98.8 ??F) 07/19/2016 8:12 AM ED T Respiratory Rate 18 07/19/2016 8:12 AM EDT Oxygen Saturation 98% 07/19/2016 8:12 AM EDT Inhaled Oxygen Concentration - - Weight 126 kg (277 lb 12.8 oz) 07/19/2016 8:12 A M EDT Height - - Body Mass Index 39.86 06/13/2016 10:31 AM EDT documented in this encounter Progress Notes * Nicolle Spencer MD - 07/19/2016 8:00 AM EDT CC: Chief Complaint Patient presents with ??? Medication Check Pt starting college next week. Would like something to help her focus. Also wants to discuss chantix. HPI: Reports that she was diagnosed with ADD at the [facility]. Was on Adderall. She stopped due to logistics. Starting college next week. Has not started nefazodone, celexa. All classes are in school. Gets fidgety and can't sit still and can't comprehend what she hears. More in public but also at home. Didn't do well in school as a kid. PTSD from repeated childhood trauma from 6 to 17, then as an adult other traumas. Flashbacks- nightmares- especially if watching TV. Emotional always. Wants to quit smoking. Had tried chantix before, had some nightmares. Smoke 1/2 ppd. Nicotine patch has skin reaction. ??? PHQ9 Questionnaires Data (Clinic and Pt Entered): last 4 values PHQ-9 QUESTIONNAIRE LAST 4 VALUES (AMB) 03/28/2016 06/03/2016 06/13/2016 07/19/2016 PHQ - 9 Score (Clinic) 4 (Minimal Depression) - - 12 (Moderate Depression) PHQ - 9 Score (Patient) - - - - Little interest or pleasure (Clinic) More than half the days More than half the days Not at all Several Days Little interest or pleasure (Patient) - - - - Down, depressed, hopeless (Clinic) More than half the days More than half the days Not at all More than half the days Down, depressed, hopeless (Patient) - - - - Trouble sleeping (Clinic) - - - Nearly every day Trouble sleeping (Patient) - - - - Tired or no energy (Clinic) - - - Several Days Tired or no energy (Patient) - - - - Poor appetite or overeating (Clinic) - - - Several days Poor appetite or overeating (Patient) - - - - Feeling like a failure (Clinic) - - - Several Days Feeling like a failure (Patient) - - - - Trouble concentrating (Clinic) - - - More than half the days Trouble concentrating (Patient) - - - - Moving or speaking slowly (Clinic) - - - Several Days Moving or speaking slowly (Patient) - - - - Would be better off (Clinic) - - - Not at all Would be better off (Patient) - - - - Allergies Allergen Reactions ??? Bactrim [Sulfamethoxazole-Trimethoprim] Anaphylaxis ??? Aleve [Naproxen Sodium] Rash Per neuro team, patient has tolerated ketorolac in the past ??? Keflex [Cephalexin] Other (See Comments) Racing heart ??? Meloxicam Nausea Only Current Outpatient Prescriptions on File Prior to [...] APRN 3 mL at 11/10/15 1153 Physical exam: NAD Neurologic: intact BP 139/83 (BP Location (NBP): Left arm, Patient Position: Sitting, BP Cuff Sizes: Large Adult (32-43 cm)) Pulse 92 Temp 37.1 ??C (98.8 ??F) (Oral) Resp 18 Wt (!) 126 kg (277 lb 12.8 oz) LMP 06/01/2016 (Approximate) SpO2 98% BMI 39.86 kg/m2 Cooperative, appears stated age, pleasant, fair eye contact speech: normal rate and flow, decreased prosody thought is goal oriented, no suicidal thoughts, sometimes vague no hallucinations or delusions mood is depressed affect is constricted Cognition is grossly intact, insight is good and judgment is preserved. Lab Results Component Value Date TSH 3.45 08/25/2015 Assessment and Plan: 45-year-old woman rather new patient to me, with history of depression, anxiety, PTSD from childhood trauma and ADHD diagnosed as an adult. She benefited in the past per her report from Adderall treatment which she would like to restart. We will obtain and review records of her previous diagnosis and treatment. Meanwhile we agreed on starting the treatment was Wellbutrin for depression, anxiety, increased focus and smoking cessation. She was given several self- reports to fill out before her next appointment which time we'll want to follow her evaluation off the focus problem and how she is actually doing after college classes have started. Counseling time statement: I spent 15 minutes of this 25 min encounter counseling in regard to self-management of depressed mood and anxiety. documented in this encounter Plan of Treatment Upcoming Encounters Date Type Department Care Team (Late st Contact Info) Description 09/05/2024 9:00 AM EDT Office [place] [address] Gema Oliveira, [facility] [place] [address] Scheduled Referrals Name Type Priority Associated Diagnoses Orde r Schedule Referral to Smoking Cessation Program Outpatient Referral Routine Tobacco abuse Ordered: 07/19/2016 documented as of this encounter Visit Diagnoses Diagnosis Persistent mood disorder Unspecified episodic mood disorder Tobacco abuse Tobacco use disorder ADD (attention deficit disorder) (ADHD) Attention deficit disorder without mention of hyperactivity documented in this encounter Care Teams Manager Technology Relationship Specialty Start Date End Date Nicolle Spencer MD [facility] [address] [place] [address] PCP - General 01/21/15 12/05/16 documented as of this encounter
--- OUTSIDE RECORDS SUMMARY | 2024-07-12 00:33 | XMS_ITS | Encounter Summary ---
Author Organization [facility] [place] [address] Care Team Providers Care Information Services Consultant Name Role Phone Nicolle Spencer MD Primary Care Provider Reason for Visit * Reason Comments Medication Refill Encounter Details Date Type Department Care Team (Late st Contact Info) Description 10/04/2016 Refill Internal Medicine at [address] [address] Nicolle Spencer MD [facility] [place] [address] Mild intermittent asthma without complication Social History [...] EDT Office Visit Internal Medicine at [address] [address] Gema Oliveira DO [facility] [place] [address] documented as of this encounter Visit Diagnoses Diagnosis Mild intermittent asthma without complication Unspecified asthma documented in this encounter Care Teams Information Services Consultant Relationship Specialty Start Date End Date Nicolle Spencer MD [facility] [place] [address] PCP - General 01/21/15 12/05/16 documented as of this encounter
--- OUTSIDE RECORDS SUMMARY | 2024-07-12 00:33 | XMS_ITS | Encounter Summary ---
Author Organization [facility] [place] [address] Care Team Providers Care Industrial Technology Education Teacher Name Role Phone Nicolle Spencer MD Primary Care Provider Reason for Visit * Reason Onset Date Comments Medication Refill 02/26/2016 Encounter Details Date Type Department Care Team (Late st Contact Info) Description 02/26/2016 Refill [place] [address] Gracie Mark MD [facility] [place] [address] Headache(784.0) Social History Tobacco Use Types Packs/Day [...] EDT Office Visit Internal Medicine at [address] [address] Gema Oliveira [facility] [place] [address] documented as of this encounter Visit Diagnoses Diagnosis Headache(784.0) Headache documented in this encounter Care Teams Industrial Technology Education Teacher Relationship Specialty Start Date End Date Nicolle Spencer MD [facility] [place] [address] PCP - General 01/21/15 12/05/16 documented as of this encounter
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
--- OUTSIDE RECORDS SUMMARY | 2024-07-12 00:33 | XMS_ITS | Encounter Summary ---
Author Organization [facility] Address [facility] [place] [address] Care Team Providers Care Special Needs Teacher Name Role Phone Nicolle Spencer MD Primary Care Provider [phone] Reason for Visit * Auth/Cert Specialty Diagnoses / Procedures Referred By María Elena t Referred To Contact Diagnoses Mixed incontinence Mixed urinary incontinence Procedures PRO SLING OPER STRES INCONTINENCE URETHRAL SUSPENSION, SLING\FASCIA OR SYNTHETIC Referral ID Status Reason Start Date Expiration Date Visits Re quested Visits Authorized [id number] 1 1 Encounter Details Date Type Department Care Team (Latest Contact Info) Description 06/08/2016 6:08 AM EDT - 06/08/2016 9:59 AM EDT Hospital [place] [address] Frankie Fontaine MD [facility] [address] OBSTETRICS [place] [address] Mixed stress and urge urinary incontinence Discharge Disposition: Home Social History Tobacco Use [...] Sign Reading Time Taken Comments Blood Pressure 115/75 06/08/2016 9:30 AM EDT Pulse 86 06/08/2016 8:42 AM EDT Temperature 35.8 ??C (96.4 ??F) 06/08/2016 8:42 AM ED T Respiratory Rate 17 06/08/2016 9:15 AM EDT Oxygen Saturation 98% 06/08/2016 9:30 AM EDT Inhaled Oxygen Concentration - - [...] in with the urogynecology office nurse at [phone] to review how your bladder is working and when the catheter use can be discontinued. For problems or concerns related to this hospitalization call: [phone] weekdays, or [phone] weekends or nights. Call your doctor if [...] for pain control. Do not take more ahak1110 mg tylenol in 24 hour period. Use [...] MD - 06/08/2016 6:32 AM EDT Inpatient [facility] [employer] - Admission Interval Note I have reviewed [...] Fontaine MD - 06/08/2016 9:13 AM EDT [facility] Operative Note Patient Name: Tracie Layton : [id number] MR#: [id number] Case Date: 06/08/2016 Surgeon: Surgeon(s) and Role: [...] Operative Note Patient Name: Tracie Layton : [id number] MR#: [id number] Case Date: 06/08/2016 Surgeon: Surgeon(s) and Role: [...] EDT Office Visit Internal Medicine at [address] [address] Gema Oliveira [facility] GENER[place] [address] documented as of this encounter Procedures Procedure [...] MAR Action Action Date Dose Rate Site HYDROmorphone (DILAUDID) syringe 0.2-0.4 mg 0.2-0.4 mg, [...] Given 06/08/2016 8:57 AM EDT 0.4 mg documented in this [...] 0953, Day of Surgery (Day of Procedure) 0729 (New Bag - Prov ider: Marino Lnio) lactated ringers infusion 1,000 mL 1,000 mL, [...] Routine documented in this encounter Care Teams Special Needs Teacher Relationship Specialty Start Date End Date Nicolle Spencer MD [facility] [place] [address] PCP - General 01/21/15 12/05/16 documented as of this encounter
--- OUTSIDE RECORDS SUMMARY | 2024-07-12 00:33 | XMS_ITS | Encounter Summary ---
Author Organization [facility] [place] [address] Care Team Providers Care Quarantine Officer Name Role Phone Nicolle Spencer MD Primary Care Provider [phone] Reason for Visit * Reason Comments Post Op Encounter Details Date Type Department Care Team (Late st Contact Info) Description 08/04/2016 8:00 AM EDT Office Visit Obstetrics [place] [address] Kaylynn Cortes APRN [facility] DR OBSTETRICS & [place] [address] Post-operative state Social History Tobacco Use Types [...] Sign Reading Time Taken Comments Blood Pressure 135/99 08/04/2016 8:24 AM EDT Pulse 110 08/04/2016 8:24 AM EDT Temperature 36.9 ??C (98.5 ??F) 08/04/2016 8:24 AM ED T Respiratory Rate - - Oxygen Saturation 98% 08/04/2016 8:24 AM EDT Inhaled Oxygen Concentration - - Weight - - Height - - Body Mass Index - - documented in this encounter Progress Notes * Kaylynn Cortes APRN - 08/04/2016 8:00 AM EDT FEMALE PELVIC MEDICINE AND RECONSTRUCTIVE [...] E78.5 ??? ADD (attention deficit disorder) (ADHD) F90.0 ??? Vitamin D deficiency E55.9 ??? Incontinence of urine R32 ??? Back pain M54.9 ??? Trochanteric bursitis of both hips M70.61, M70.62 ??? Abdominal pain R10.9 ??? Hematuria, unspecified R31.9 ??? Vagina bleeding N93.9 ??? Depression F32.9 ??? Headache R51 ??? Morbid obesity with BMI of 40.0-44.9, adult Z68.41 ??? Mixed stress and urge urinary incontinence N39.46 ??? Postoperative examination Z09 Date of visit: 08/04/2016 Patient name: Tracie Layton Date of surgery: 06/08/16 Procedure: Mid urethral sling Pathology: none Subjective: Ms. Layton is s/p the above procedures. She has been tolerating a regular diet. She denies nausea and vomiting, and she has been afebrile since surgery. She is pleased with her surgical results. She has minimal stress incontinence, just when she sneezes 5 times in a row. She does have some urge incontinence that persists but reports that this is muchbetter then before her surgery. Since surgery, she reports: None x Continued vaginal bleeding New pelvic related pain Abnormal vaginal discharge Burning with urination Blood in urine Enuresis New prolapse symptoms since surgery Bladder Function Number of daytime voids: 5-7 Number of nocturia events: 1 Urinary incontinence since surgery (y/n): y If yes, [place] Incontinence Severity Index: How often do you experience urinary leakage? 0. Never 1. Less than once a month 2. A few times a month 3. A few times a week 4. Every day and/or night Value 3 How much urine do you lose each time? 0. None 1. Drops 2. Small Splashes 3. More Value 2 The Severity Index is the product of the two questions 0 - NONE 1-2 Slight 3-6 Moderate 8-9 Severe 12 Very severe SCORE: 6 If yes, leaks with: Event Presence Event Presence NONE [place] Walking Cold Weather Running Anticipation of going to the lavatory x Cough/Sneeze First morning void Lifting Running water Laughing Other Number of pads / day: 3-4 Pad type: Panty liners Voiding Dysfunction: Symptom Presence NONE x Straining to empty Incomplete emptying Weak stream Feeling the urge to void after voiding Dribbling Changes in position Difficulty initiating a stream Bowel Function Fecal incontinence since surgery? (stool/gas) no How many fecal incontinence episodes / week? none How often do you have bowel movements? 1-2/day Any new defecatory problems since surgery?: no IF so which defecatory problem?: Symptom Presence Symptom Presence NONE Require laxatives regularly Difficulty emptying Less than three bowel movements / week Need to strain Urgency Hard stools Other Loose stools x Treatment Outcome Satisfaction How would you describe your level of satisfaction with your treatment outcome? 0. Strongly UNsatisfied 1. UNsatisfied 2. Neither satisfied nor unsatisfied 3. Satisfied 4. Strongly satisfied Value 3 Would you recommend this therapy to a friend?: y How much has your treatment outcome met your before treatment expectation? 0. Strongly NOT met my before treatment expectations 1. Not met my before treatment expectations 2. Undecided 3. Met my before treatment expectations 4. Strongly met my before treatment expectations 3 OBJECTIVE: BP (!) 135/99 Pulse 110 Temp 36.9 ??C (98.5 ??F) (Oral) LMP 07/26/2016 (Approximate) SpO2 98% General: normal appearing female, pleasant mood, normal speech Abdomen: Abdomen soft, non-tender, bowel sounds normal. Surgical incision(s): well healed. Skin edges well applied. No evidence of erythema or induration. Back: Non-tender, without costovertebral angle or paraspinal tenderness Pelvic: Cough stress test (empty supine): negative External Genitalia: Vulva, Pataha's and Bartholin glands normal, urethra without tenderness or mass Vagina: normal, no mesh palpated or seen Discharge?: none Impression: Ms. Layton is a 45 y.o. year old woman now 6 wks s/p above procedures. Plan: Activity: as tolerated Pelvic floor exercises 10 reps 2-3 times daily to maintain pelvic floor strength Return PRN to reassess KAYLYNN CORTES APRN Division of Female Pelvic Medicine/Reconstructive Surgery * Jammie Richards MD - 08/04/2016 8:00 AM EDT I met with Ms. Layton at the time of her post-operative visit with Bhavya Cortes APRN. She is doingwell overall and agrees to return in 1 year or PRN earlier if recurrent symptoms. JAMMIE RICHARDS MD documented in this encounter Plan of Treatment Upcoming Encounters Date Type Department Care Team (Late st Contact Info) Description 09/05/2024 9:00 AM EDT Office Visit Internal Medicine at [address] [address] Gema Oliveira DO [facility] [address] [facility] [place] [address] documented as of this encounter Visit Diagnoses Diagnosis Post-operative state Other postprocedural status documented in this encounter Care Teams Quarantine Officer Relationship Specialty Start Date End Date Nicolle Spencer MD [facility] [address] [facility] [place] [address] PCP - General 01/21/15 12/05/16 documented as of this encounter
--- OUTSIDE RECORDS SUMMARY | 2024-07-12 00:33 | XMS_ITS | Encounter Summary ---
[place] [address] Care Team Providers Care Anesthesia Associate Name Role Phone Ragini Unger MD Primary Care Provider Reason for Visit * Reason Onset Date Comments Triage 12/06/2016 Encounter Details Date Type Department Care Team (Late st Contact Info) Description 12/06/2016 Telephone Internal Medicine at [address] [address] Sabrina Marmolejo Triage Social History Tobacco Use Types Packs/Day [...] * Telephone Encounter - Shanna Bishop - 12/07/2016 1:52 PM EST Called patient LV to confirm if her appointment with Dr Unger should have been scheduled with patient pcp Hendrick. Otero * Telephone Encounter - Shanna Bishop - 12/07/2016 1:48 PM EST ----- Message from Ragini Unger MD sent at 12/06/2016 9:11 PM EST ----- Shanna, this patient now has my name on it - do you know what the situation is - or can you find out :) Ragini ----- Message ----- From: Nicolle Spencer MD Sent: 12/06/2016 8:46 PM To: Ragini Unger MD Not sure; I don't recall any problems or incidents.I don't recall showing any suspicion in regard to her request for adderal but maybe she interpreted it that way with all the questioning that goes in. ----- Message ----- From: Ragini Unger MD Sent: 12/06/2016 3:49 PM To: MD Norman Camacho, this patient looks like she used to be yours, now has my name on her. Do you know why sheis changing? Always wonder if there is more to the story (don't see anything in the chart) Ragini ----- Message ----- From: Jeniffer Schilling PA Sent: 12/06/2016 12:50 PM To: Ragini Unger MD * Telephone Encounter - Miladis Tucker RN - 12/06/2016 10:00 AM EST Caller:Patient Learning Needs Assessment Reviewed: Yes Subjective Patient presents with: Triage Objective/Assessment Symptom onset:Cannot stand upright because of lower back pain. Flexeril up to three times per day but not helping much. No numbness or tingling, no weakness, No trouble with bowels/bladder. 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 Plan Intervention/Plan/ Follow Up: Eval in the clinic * Telephone Encounter - Sabrina Marmolejo - 12/06/2016 9:56 AM EST Please call patient to discuss Emergency Room Follow Up Symptoms: Back pain Which ED: [facility] Records Sent: Caller and Relationship (if other than patient): patient Best time to call back: any Okay to leave a message: yes Okay to send my- message: no Nurse contacted via: Message: yes Call: no Pager: no documented in this encounter Plan of Treatment Upcoming Encounters Date Type Department Care Team (Late st Contact Info) Description 09/05/2024 9:00 AM EDT Office Visit Internal Medicine at [address] [address] Gema Oliveira, [facility] [address] [facility] [place] [address] documented as of this encounter Visit Diagnoses Not on filedocumented in this encounter Care Teams Anesthesia Associate Relationship Specialty Start Date End Date Ragini Unger MD [facility] [place] [address] PCP - General General Internal Medicine 12/06/16 9/2 04/05 documented as of this encounter
--- OUTSIDE RECORDS SUMMARY | 2024-07-12 00:33 | XMS_ITS | Encounter Summary ---
Author Organization [facility] Address [facility] [place] [address] Care Team Providers Care Qi Specialist Name Role Phone Nicolle Spencer MD Primary Care Provider [phone] Reason for Visit * Reason Comments Follow-up surgical consult Encounter Details Date Type Department Care Team (Late st Contact Info) Description 03/28/2016 4:00 PM EDT Office Visit Obstetrics [place] [address] Jammie Richards MD [facility] DR OBSTETRICS [place] [address] Mixed stress and urge urinary incontinence Social History Tobacco Use Types Packs/Day Years [...] Sign Reading Time Taken Comments Blood Pressure 126/86 03/28/2016 4:20 PM EDT Pulse - - Temperature - - Respiratory Rate - - Oxygen Saturation - - Inhaled Oxygen Concentration - - Weight 129.6 kg (285 lb 12.8 oz) 03/28/2016 4:20 PM EDT Height 177.8 cm (5' 10) 03/28/2016 4:20 PM EDT Body Mass Index 41.01 03/28/2016 4:20 PM EDT documented in this encounter Progress Notes * Jammie Richards MD - 03/28/2016 10:24 PM EDT Patient Active Problem List Diagnosis Code [...] obesity with BMI of 40.0-44.9, adult Z68.41 SUBJECTIVE: Tracie Layton comes in today for to discuss options to manage urinary incontinence. She saw Dr. Pinto on 11/05/[address] Pinto has been out on medical leave and she now wants to consider surgery to treat her incontinence. She has leaking with stress events,including coughing, laughing, sneezing. She has some urge type leaking as well but is more bothered by stress incontinence symptoms. She had a positive cough stress test when she was seen by Dr. Pinto in October. She feels her incontinence is about the same. She changes several menstrual pads daily. She would like to consider surgery. She drinks one large iced tea daily and smokes cigarettes. She is trying to quit smoking. She denies interval health changes. Her biggest health concern is migraine headaches. OBJECTIVE: Blood pressure 126/86, height 177.8 cm (5' 10), weight 129.638 kg (285 lb 12.8 oz), last menstrualperiod 03/10/2016. Exam deferred. ASSESSMENT: Tracie Layton is a 45 y.o. year old woman with: ?? Mixed urinary incontinence with stress symptoms predominant. PLAN: ??? After reviewing options, she desires to proceed with scheduling a sling procedure. I discussed the planned procedure with the [...] reviewed potential changes in bladder and sexual function after prolapse and anti-incontinence operations. We reviewed risks of mesh erosion that can occur even many years out from surgery and risks of persistent pain. We discussed the August 2008 and May 2011 FDA warning regarding mesh placed transvaginally for prolapse repairs and the different applications for mesh in the pelvic area carry different risks. We reviewed that mesh erosion for slings is ~ 3 % in several large studies. I spent 25 minutes total with the patient, with 20 minutes of the time spent [id number] in discussing her diagnosis and reviewing options for treatment. JAMMIE RICHARDS MD Division of Female Pelvic Medicine & Reconstructive Surgery documented in this encounter Plan of Treatment Upcoming Encounters Date Type Department Care Team (Late st Contact Info) Description 09/05/2024 9:00 AM EDT Office Visit Internal Medicine at [address] [address] Gema Oliveira, [facility] [place] [address] documented as of this encounter Procedures Procedure Name Priority Date/Time Associated Diagnosis Comments URETHRAL SUSPENSION,SLING\FASCI A OR SYNTHETIC Routine 03/28/2016 10:36 PM EDT Mixed stress and urge urinary incontinence documented in this encounter Visit Diagnoses Diagnosis Mixed stress and urge urinary incontinence Mixed incontinence urge and stress (male)(female) documented in this encounter Care Teams Qi Specialist Relationship Specialty Start Date End Date Nicolle Spencer MD [facility] [place] [address] PCP - General 01/21/15 12/05/16 documented as of this encounter
--- OUTSIDE RECORDS SUMMARY | 2024-07-12 00:33 | XMS_ITS | Encounter Summary ---
Author Organization [facility] [place] [address] Care Team Providers Care Shop Clerk Name Role Phone Nicolle Spencer MD Primary Care Provider [phone] Reason for Visit * Reason Comments Vaginal Discharge Encounter Details Date Type Department Care Team (Late st Contact Info) Description 06/21/2016 4:30 PM EDT Office Visit Obstetrics [place] [address] Kaylynn Cortes APRN [facility] OBSTETRICS [place] [address] Post-operative state Social History Tobacco Use Types [...] Sign Reading Time Taken Comments Blood Pressure 134/84 06/21/2016 4:09 PM EDT Pulse 101 06/21/2016 4:09 PM EDT Temperature 37.2 ??C (99 ??F) 06/21/2016 4:09 PM EDT Respiratory Rate - - Oxygen Saturation - - Inhaled Oxygen Concentration - - Weight - - Height - - Body Mass Index - - documented in this encounter Progress Notes * Kaylynn Cortes APRN - 06/21/2016 4:30 PM EDT FEMALE PELVIC MEDICINE AND RECONSTRUCTIVE SURGERY [...] ??? Postoperative examination Z09 Date of visit: 06/21/2016 Patient name: Tracie Layton Date of surgery: 06/08/16 Procedure: Mid urethral sling Subjective: Ms. Layton is s/p the above procedures. She has been tolerating a regular diet. She denies nausea and vomiting. She is c/o a malodorous heavy discharge that she has had in the past with bacterial vaginosis. She also has some c/o of L groin /leg pain that is intermittent, sometimes absent , other times hurts her when she walks. She has not much incontinence since the surgery. OBJECTIVE: BP 134/84 Pulse 101 Temp 37.2 ??C (99 ??F) (Oral) LMP 06/01/2016 (Approximate) General: normal appearing female, pleasant mood, normal speech Surgical incision(s): well healed. Skin edges well applied. No evidence of erythema or induration. Many sutures remain on anterior vaginal wall. Insertion sites bilaterally healed well with no s/s ofinfection. Pelvic: External Genitalia: Vulva, [place]'s and Bartholin glands normal, urethra without tenderness or mass Vagina: no pain, no mesh seen or felt on anterior vaginal wall. Discharge?: Moderate amount of light brown discharge with odor noted Impression: Ms. Layton is a 45 y.o. year old woman now 2 wks s/p midurethral sling surgery, healing well, c/o increase in malodorous discharge consistent with bacterial vaginosis infection. Plan: Flagyl 500 mg 1 po bid for 7 days, no alcohol use. At 2 wk katelyn, can soak in tub, which she might find soothing for her L groin area. RTC in 4 wks for post op check, prn. KAYLYNN CORTES APRN Division of Female Pelvic Medicine/Reconstructive Surgery documented in this encounter Plan of Treatment Upcoming Encounters Date Type Department Care Team (Late st Contact Info) Description 09/05/2024 9:00 AM EDT Office Visit Internal Medicine at [address] [address] Gema Oliveira DO [facility] [address] [facility] [address] documented as of this encounter Visit Diagnoses Diagnosis Post-operative state Other postprocedural status documented in this encounter Care Teams Shop Clerk Relationship Specialty Start Date End Date Nicolle Spencer MD [facility] [address] [facility] INTERNAL [facility] [address] PCP - General 01/21/15 12/05/16 documented as of this encounter
--- OUTSIDE RECORDS SUMMARY | 2024-07-12 00:33 | XMS_ITS | Encounter Summary ---
Author Organization [facility] [place] [address] Care Team Providers Care Partner Name Role Phone Nicolle Spencer MD Primary Care Provider [phone] Encounter Details Date Type Department Care Team (Late st Contact Info) Description 08/09/2016 Telephone Internal Medicine at [address] [address] Nicolle Spencer MD [facility] [place] [address] Social History Tobacco Use Types Packs/Day Years [...] Telephone Encounter - Leah Raines RN - 08/09/2016 8:17 AM EDT Patient calling, stating she developed urinary frequency and urgency overnight. Never had a UTI before. Denies blood in urine, fever, dysuria, but thinks she has some flank pain. She had bladder surgery 06/08 without any complications. She also noted some bright red blood on her stool today, and c/oitchiness inside rectum. Bowels otherwise normal. Denies lightheadedness/dizziness, clots, blood in toilet bowl, shortness of breath, though thinks her asthma is worse than usual. Agreed to an appt so scheduled with Jeniffer NG this morning. Routed to Jeniffer and PCP. documented in this encounter Plan of Treatment Upcoming Encounters Date Type Department Care Team (Late st Contact Info) Description 09/05/2024 9:00 AM EDT Office Visit Internal Medicine at [address] [address] Gema Oliveira, [facility] [place] [address] documented as of this encounter Visit Diagnoses Not on filedocumented in this encounter Care Teams Partner Relationship Specialty Start Date End Date Nicolle Spencer MD [facility] [address] [facility] INTERNAL [facility] [address] PCP - General 01/21/15 12/05/16 documented as of this encounter
--- OUTSIDE RECORDS SUMMARY | 2024-07-12 00:33 | XMS_ITS | Encounter Summary ---
Author Organization [facility] Address [facility] [place] [address] Care Team Providers Care Decorator Store Name Role Phone Nicolle Spencer MD Primary Care Provider [phone] Encounter Details Date Type Department Care Team (Late st Contact Info) Description 06/11/2016 Telephone Obstetrics [place] [address] Iker Fontanez MD [facility] OBSTETRICS & [place] [address] Social History Tobacco Use Types Packs/Day Years [...] encounter Miscellaneous Notes * Telephone Encounter - Iker Fontanez - 06/11/2016 8:56 AM EDT Telephone Note Tracie Layton is a 45 y.o. POD#3 from [facility], had some bleeding in the toilet. She has used three pads today, which were overnight pads. They were not soaked but it is more bleeding than she has been having. She has not done straining - nothing in the vagina, no activity. She was asleep when it started. She still has periods and her LMP was a week prior to the surgery. (06/02) this is blade sharpener than that. No pain with urination. She has a sharp sensation when she stands inside. No problems when she walks. No fevers, chills, chest pain, shortness of breath. The bleeding has slowed down. Plan is to watch it at home for the next couple hours but if it worsens, she feels febrile, has an increase in pain, she will call back and come in to be evaluated. IKER FONTANEZ MD PGY4 06/11/2016 documented in this encounter Plan of Treatment Upcoming Encounters Date Type Department Care Team (Late st Contact Info) Description 09/05/2024 9:00 AM EDT Office Visit Internal Medicine at [address] [address] Gema Oliveira DO [facility] [address] [facility] [address] documented as of this encounter Visit Diagnoses Not on filedocumented in this encounter Care Teams Decorator Store Relationship Specialty Start Date End Date Nicolle Spencer MD [facility] [address] [facility] [place] [address] PCP - General 01/21/15 12/05/16 documented as of this encounter
--- OUTSIDE RECORDS SUMMARY | 2024-07-12 00:33 | XMS_ITS | Encounter Summary ---
Author Organization [facility] Address [facility] [place] [address] Care Team Providers Care Underlay Stitcher Name Role Phone Nicolle Spencer MD Primary Care Provider [phone] Encounter Details Date Type Department Care Team (Late st Contact Info) Description 04/29/2016 10:20 AM EDT Office Visit Neurology at [facility] [place] [address] Pratibha Lopez, [place] [address] Intractable post-traumatic headache, unspecified chronicity pattern; Cervicogenic headache Social History Tobacco Use Types Packs/Day Years [...] Sign Reading Time Taken Comments Blood Pressure 155/80 04/29/2016 10:23 AM EDT Pulse 114 04/29/2016 10:23 AM EDT Temperature - - Respiratory Rate - - Oxygen Saturation - - Inhaled Oxygen Concentration - - Weight 129.7 kg (286 lb) 04/29/2016 10:23 AM EDT Height 177.8 cm (5' 10) 04/29/2016 10:23 AM EDT Body Mass Index 41.04 04/29/2016 10:23 AM EDT documented in this encounter Procedure Notes * Pratibha Lopez APRN - 04/29/2016 10:37 AM EDTAssociated Order(s): NERVE BLOCK - OCCIPITAL Pre-Procedure Diagnose(s): Cervicogenic headache Procedure Note Procedure: Bilateral Greater and Lesser Occipital Nerve Blocks Indication: Headache with occipital/cervical tenderness Consent: Indication, risks, benefits, and alternatives discussed with patient, including risk of bleeding, infection, permanent numbness, and medication reaction. Written consent signed by patient. Location: The greater occipital nerve was located by first palpating the mastoid and midline occipital ridge. The nerve was palpated at 2/3 the distance to the occipital ridge. It was coincident withmaximal tenderness. The lesser occipital nerves were palpated inferior to the GONs approx 1/3 the distance to the occipital ridge. Medication: 50/50 mixture of 1% lidocaine and 0.25% bupivacaine Technique: The area was cleansed with 2 alcohol swabs while using clear gloves. Using a 3 cc syringe and a 25 guage 5/8 inch needle, 3 cc of the medication mixture was injected into multiple tissue planes in the area around each greater occipital nerve. An additional 3 cc of the medication was divided between the two lesser occipital nerve sites and 1.5 cc injected into multiple tissue planes around each site. Prior to each injection the plunger was drawn back to ensure that the needle was not in a blood vessel. The patient tolerated the procedure well. Complications: None Blood loss: <1 cc documented in this encounter Plan of Treatment Upcoming Encounters Date Type Department Care Team (Late st Contact Info) Description 09/05/2024 9:00 AM EDT Office Visit Internal Medicine at [address] [address] Gema Oliveira, [facility] [place] [address] documented as of this encounter Procedures Procedure Name Priority Date/Time Associated Diagnosis Comments NERVE BLOCK - OCCIPITAL Routine 04/29/2016 10:40 AM EDT Intractable post-traumatic headache, unspecified chronicity pattern Cervicogenic headache documented in this encounter Results * NERVE BLOCK - OCCIPITAL (04/29/2016 10:40 AM EDT) Narrative Pratibha Lopez APRN - 04/29/2016 10:40 AM EDT Pratibha Lopez APRN ? 04/29/2016 10:40 AM Procedure Note Procedure: Bilateral Greater and Lesser Occipital Nerve Blocks Indication: Headache with occipital/cervical tenderness Consent: Indication, risks, benefits, and alternatives discussed with patient, including risk of bleeding, infection, permanent numbness, and medication reaction. ?? Written consent signed by patient. Location: The greater occipital nerve was located by first palpating the mastoid and midline occipital ridge. ??The nerve was palpated at 2/3 the distance to the occipital ridge. ??It was coincident with maximal tenderness. ??The lesser occipital nerves were palpated inferior to the GONs approx 1/3 the distance to the occipital ridge. Medication: 50/50 mixture of 1% lidocaine and 0.25% bupivacaine Technique: The area was cleansed with 2 alcohol swabs while using clear gloves. ??Using a 3 cc syringe and a 25 guage 5/8 inch needle, 3 cc of the medication mixture was injected into multiple tissue planes in the area around each greater occipital nerve. ?? An additional 3 cc of the medication was divided between the two lesser occipital nerve sites and 1.5 cc injected into multiple tissue planes around each site. ??Prior to each injection the plunger was drawn back to ensure that the needle was not in a blood vessel. ??The patient tolerated the procedure well. Complications: None Blood loss: <1 cc Gracie Mark MD NEUROLOGY ORDERABLES documented in this encounter Visit Diagnoses Diagnosis Intractable post-traumatic headache, unspecified chronicity pattern Cervicogenic headache Headache documented in this encounter Administered Medications Inactive Administered Medications - up to 3 most recent administrations Medication Order MAR Action Action Date Dose Rate Site BUpivacaine (PF) (MARCAINE) 0.25 % (2.5 mg/mL) injection 11.2 mg 11.2 mg, Intrapleural, ONCE, 1 dose, On Mon04/29/16 at 1100, Routine Given 04/29/2016 10:36 AM EDT 11.2 mg lidocaine (XYLOCAINE) 10 mg/mL (1 %) injection 45 mg 45 mg (4.5 mL), Subcutaneous, ONCE, 1 dose, On Mon04/29/16 at 1100, Routine Given 04/29/2016 10:36 AM EDT 45 mg documented in this encounter Care Teams Underlay Stitcher Relationship Specialty Start Date End Date Nicolle Spencer MD [facility] [place] [address] PCP - General 01/21/15 12/05/16 documented as of this encounter
--- OUTSIDE RECORDS SUMMARY | 2024-07-12 00:33 | XMS_ITS | Encounter Summary ---
Author Organization [facility] Address [facility] [place] [address] Care Team Providers Care Bulb Sorter Name Role Phone Nicolle Spencer MD Primary Care Provider [phone] Reason for Visit * Reason Onset Date Comments Other 04/26/2016 Encounter Details Date Type Department Care Team (Late st Contact Info) Description 04/26/2016 [place] [address] Gracie Mark MD [facility] [place] [address] Other Social History Tobacco Use Types Packs/Day [...] Telephone Encounter - Zina Landeros RN - 04/26/2016 3:23 PM EDT Called patient and informed her of Pratibha Lopez APRN's recommendations as noted. Patient understands instructions and agrees with this plan. * Telephone Encounter - Pratibha Lopez APRN - 04/26/2016 12:59 PM EDT Continue methergine 2 tabs (.4) TID and add an additional .2 tab every day for now. (total of 7 tabs per day). Start phenergan suppositories: one to two PRN up to TID, which will help with nausea andhelp break headache cycle. May not drive or operate machinery on this dose of phenergan. Call on Monday to let us know how she is doing. * Telephone Encounter - Zina Landeros RN - 04/26/2016 10:43 AM EDT Called patient back and she states she started back on the methergine on 03/25/16 0.4 TID and it has not been helping at all. She states she has been having daily headaches. She states since Monday theheadaches have been even worse. She has been extremely nauseated from the headaches and she has been in bed. She has not been using her hydroxyzine or zofran or phenergan suppositories for nausea kunal use she has been so angry with the headaches and the nausea passes. She doesn't know why this is happening to her and knows she shouldn't have waited so long to call. She states before she went on the methergine holiday she only had one or two headaches per month on the methergine and never had to use more than the 0.4 mg TID. She doesn't know what is happening. We did have her on a prednisone tap er during the methergine holiday starting on 03/02/16 for 12 days. * Telephone Encounter - Mae Elliott - 04/26/2016 8:45 AM EDT Patient calls to say that her medicine is not working. Please call her back to discuss alternatives. documented in this encounter Plan of Treatment Upcoming Encounters Date Type Department Care Team (Late st Contact Info) Description 09/05/2024 9:00 AM EDT Office Visit Internal Medicine at [address] [address] Gema Oliveira DO [facility] [address] documented as of this encounter Visit Diagnoses Not on filedocumented in this encounter Care Teams Bulb Sorter Relationship Specialty Start Date End Date Nicolle Spencer MD [facility] [place] [address] PCP - General 01/21/15 12/05/16 documented as of this encounter
--- OUTSIDE RECORDS SUMMARY | 2024-07-12 00:33 | XMS_ITS | Encounter Summary ---
Author Organization [facility] Address [facility] [place] [address] Care Team Providers Care Merchant Mill Utility Worker Name Role Phone Nicolle Spencer MD Primary Care Provider [phone] Reason for Visit * Reason Onset Date Comments Other 02/29/2016 nausea medicatio n request Encounter Details Date Type Department Care Team (Late st Contact Info) Description 02/29/2016 [place] [address] Gracie Mark MD [facility] [place] [address] Other (nausea medication request) Social History Tobacco Use Types Packs/Day Years [...] Telephone Encounter - Zina Landeros RN - 02/29/2016 1:01 PM EDT Rx sent to pharmacy. * Telephone Encounter - Gracie Mark MD - 02/29/2016 12:08 PM EDT Would recommend Zofran 4-8mg BID PRN Disp # 30 Refill # 3 * Telephone Encounter - Zina Landeros RN - 02/29/2016 10:00 AM EDT Patient self-administered DHE medication as she has [...] oral tablets for nausea with DHE injections. documented in this encounter Plan of Treatment Upcoming Encounters Date Type Department Care Team (Late st Contact Info) Description 09/05/2024 9:00 AM EDT Office Visit Internal Medicine at [address] [address] Gema Oliveira DO [facility] [place] [address] documented as of this encounter Visit Diagnoses Diagnosis Headache, unspecified headache type documented in this encounter Care Teams Merchant Mill Utility Worker Relationship Specialty Start Date End Date Nicolle Spencer MD [facility] [place] [address] PCP - General 01/21/15 12/05/16 documented as of this encounter
--- OUTSIDE RECORDS SUMMARY | 2024-07-12 00:33 | XMS_ITS | Encounter Summary ---
Author Organization [facility] Address [facility] [place] [address] Care Team Providers Care Absorption Plant Operator Name Role Phone Nicolle Spencer MD Primary Care Provider [phone] Reason for Visit * Reason Onset Date Comments Other 04/28/2016 Other Encounter Details Date Type Department Care Team (Late st Contact Info) Description 04/28/2016 [place] [address] Gracie Mark MD [facility] [place] [address] Other (Other) Social History Tobacco Use Types Packs/Day Years [...] Telephone Encounter - Zina Landeros RN - 04/29/2016 8:28 AM EDT Pratibha is seeing her today at 10:20 * Telephone Encounter - Gracie Mark MD - 04/29/2016 7:46 AM EDT Add her to the schedule today Procedure ONLY encounter Gracie Mark MD [facility] Neurology * Telephone Encounter - Zina Landeros RN - 04/28/2016 5:12 PM EDT Called patient back and she would like to come in for ONBs. Sent high priority message to Savanna to add her to schedule as secretaries are all gone for the day. * Telephone Encounter - Pratibha Lopez APRN - 04/28/2016 4:25 PM EDT Were ONBs helpful for her when she had them in February? I can see her for nerve blocks at 10:20 tomorrow. If she does not want to do this, please forward message string to Gracie to address tomorrow * Telephone Encounter - Zina Landeros RN - 04/28/2016 3:59 PM EDT Called patient back and she states she increased the methergine and added the additional 0.2 mg tablet so she took the 0.4 mg TID and add an additional 0.2 mg tab for the past two days and she also used two phenergan suppositories twice yesterday and two once today and neither of these changes helped her head pain. She doesn't know what to do as she feels miserable and doesn't want to take them any more. She states the headache was not helped at all. I let her know I would check with Pratibha Lopez APRN who is still covering for Dr. Mark but that she may have to wait for Dr. Mark to return tomorrow. * Telephone Encounter - Savanna Beatty S - 04/28/2016 3:09 PM EDT Patient called in today stating that her migraines have not eased up. Patient states she would likea call back to discuss. documented in this encounter Plan of Treatment Upcoming Encounters Date Type Department Care Team (Late st Contact Info) Description 09/05/2024 9:00 AM EDT Office Visit Internal Medicine at [address] [address] Gema Oliveira DO [facility] [place] [address] documented as of this encounter Visit Diagnoses Not on filedocumented in this encounter Care Teams Absorption Plant Operator Relationship Specialty Start Date End Date Nicolle Spencer MD [facility] [address] [facility] INTERNAL [facility] [place] [address] PCP - General 01/21/15 12/05/16 documented as of this encounter
--- OUTSIDE RECORDS SUMMARY | 2024-07-12 00:33 | XMS_ITS | Encounter Summary ---
[place] [address] Care Team Providers Care Community Health Worker Name Role Phone Ragini Unger MD Primary Care Provider [phone] Reason for Visit * Reason Onset Date Comments Triage 06/21/2016 Encounter Details Date Type Department Care Team (Late st Contact Info) Description 06/21/2016 Telephone Internal Medicine at [address] [address] Sabrina Marmolejo Triage Social History [...] encounter Miscellaneous Notes * Telephone Encounter - Britney Scruggs - 06/21/2016 1:32 PM EDT Patient calling back. Please return call at [phone] * Telephone Encounter - Miladis Tucker RN - 06/21/2016 10:47 AM EDT Caller:Patient Learning Needs Assessment Reviewed: Yes Subjective Patient presents with: Triage Objective/Assessment Symptom onset:C/O vaginosis symptoms. Discharge and stronger odor. Bladder sling two weeks ago. Instructed to call her urologist and if needed we can see her today. Location: Duration: Characteristics: Aggravating factors: Relieving factors: Timing: Severity: Pertinent Past Medical History: Plan Intervention/Plan/ Follow Up: Will call if needing to be seen in the clinic * Telephone Encounter - Sabrina Marmolejo - 06/21/2016 10:28 AM EDT Message: The patient called complaining of yeast infection symptoms. Caller and relationship (if other than patient-full name): patient Best time to call back: berenice Ok to leave a message: [yes] Ok to send my- message: [no] Offered Appointment: no Nurse contacted via: Message: yes Call: yes Pager: no documented in this encounter Plan of Treatment Upcoming Encounters Date Type Department Care Team (Late st Contact Info) Description 09/05/2024 9:00 AM EDT Office Visit Internal Medicine at [address] [address] Gema Oliveira DO [facility] [address] [facility] [address] documented as of this encounter Visit Diagnoses Not on filedocumented in this encounter Care Teams Community Health Worker Relationship Specialty Start Date End Date Ragini Unger MD [facility] [address] [place] [address] PCP - General General Internal Medicine 12/06/16 9/2 04/05 documented as of this encounter
--- OUTSIDE RECORDS SUMMARY | 2024-07-12 00:33 | XMS_ITS | Encounter Summary ---
Author Organization [facility] Address [facility] [place] [address] Care Team Providers Care Senior Net Developer Name Role Phone Nicolle Spencer MD Primary Care Provider [phone] Encounter Details Date Type Department Care Team (Late st Contact Info) Description 10/06/2016 2:00 PM EST [place] [address] Rosie Dolan PA [facility] [place] [address] Chronic migraine without aura without status migrainosus, [...] Sign Reading Time Taken Comments Blood Pressure 140/94 10/06/2016 2:02 PM EST Pulse 109 10/06/2016 2:02 PM EST Temperature - - Respiratory Rate - - Oxygen Saturation - - Inhaled Oxygen Concentration - - Weight - - Height 177.8 cm (5' 10) 10/06/2016 2:02 PM EST reported Body Mass Index - - documented in this encounter Procedure Notes * Rosie Dolan PA - 10/06/2016 2:00 PM ESTAssociated Order(s): NERVE BLOCK - OCCIPITAL Procedure Note Procedure: Bilateral Greater Occipital Nerve Blocks Indication: Headache with occipital/cervical tenderness Consent: Indication, risks, benefits, and alternatives discussed with patient, including risk of bleeding, infection, permanent numbness, and medication reaction. Consent signed by patient on 06/09/16- verbal consent given today. Location: The greater occipital nerve was located [...] well. Complications: None Blood loss: <1 cc Rosie Dolan PA-C Dept. Of Neurology [facility] documented in this encounter Plan of Treatment Upcoming Encounters Date Type Department Care Team (Late st Contact Info) Description 09/05/2024 9:00 AM EDT Office [place] [address] [facility] [place] [id number] documented as of this encounter Procedures Procedure Name Priority Date/Time Associated Diagnosis Comments NERVE BLOCK - OCCIPITAL Routine 10/06/2016 2:22 PM EST Chronic migraine without aura without status migrainosus, not intractable documented in this encounter Results * Nerve Block - Occipital (10/06/2016 2:22 PM EST) Narrative Rosie Dolan PA - 10/06/2016 2:22 PM EST Rosie Dolan PA ? 10/06/2016 ??2:22 PM Procedure Note Procedure: Bilateral Greater Occipital Nerve Blocks Indication: Headache with occipital/cervical tenderness Consent: Indication, risks, benefits, and alternatives discussed with patient, including risk of bleeding, infection, permanent numbness, and medication reaction. ??Consent signed by patient on 06/09/16 - verbal consent given today. ?? Location: The greater occipital nerve was located [...] well. Complications: None Blood loss: <1 cc Rosie Dolan PA-C Dept. Of Neurology [facility] Thomas Shukla MD NEUROLOGY ORDERABLES documented in this encounter Visit Diagnoses Diagnosis Chronic migraine without aura without status migrainosus, not intractable Chronic migraine without aura, without mention of intractable migraine without mention of status migrainosus documented in this encounter Administered Medications Inactive Administered Medications - up to 3 most recent administrations Medication Order MAR Action Action Date Dose Rate Site BUpivacaine (PF) (MARCAINE) 0.25 % (2.5 mg/mL) injection 7.5 mg 7.5 mg, Subcutaneous, ONCE, 1 dose, On Denita 10/06/16 at 1445, Routine Given 10/06/2016 2:20 PM EST 7.5 mg lidocaine (XYLOCAINE) 10 mg/mL (1 %) injection 30 mg 30 mg (3 mL), Subcutaneous, ONCE, 1 dose, On Denita 10/06/16 at 1445, Routine Given 10/06/2016 2:21 PM EST 30 mg documented in this encounter Care Teams Senior Net Developer Relationship Specialty Start Date End Date Nicolle Spencer MD [facility] [place] [address] PCP - General 01/21/15 12/05/16 documented as of this encounter
--- OUTSIDE RECORDS SUMMARY | 2024-07-12 00:33 | XMS_ITS | Encounter Summary ---
Author Organization [facility] Address [facility] [place] [address] Care Team Providers Care Product Development Intern Name Role Phone Nicolle Spencer MD Primary Care Provider Reason for Visit * Reason Onset Date Comments Other 10/06/2016 Encounter Details Date Type Department Care Team (Late st Contact Info) Description 10/06/2016 Telephone [place] [address] [facility] [place] [address] Other Social History Tobacco Use Types Packs/Day [...] encounter Miscellaneous Notes * Telephone Encounter - Gracie Mark MD - 10/06/2016 3:04 PM EST Excellent Thank you Gracie Mark MD [facility] Neurology * Telephone Encounter - Zina Landeros RN - 10/06/2016 11:38 AM EST Scheduled with Sukh * Telephone Encounter - Zina Landeros RN - 10/06/2016 11:26 AM EST Acute Headache/Migraine Last Appointment: 08/10/16 Next Appointment: 11/25/16 Provider: Dr. Mark Reason for Call: Acute Migraine/Headache REPORT ON CURRENT CONCERN - (for any positive response note explanation): ??? When did migraine start: since Monday ??? Location of the pain: back of head ??? Description of the pain: if laying down - pressure, if up and about - throbbing ??? Any light sensitivity: Y ??? Any sound sensitivity: Y ??? Any nausea: N ??? Any vomiting: N ??? Pain on scale of 1-10: 8/10 Is this a typical migraine: Y ??? What rescue meds have been tried: diclofenac Results: ineffective ??? Any aggravating factors: everything else - driving, noise ??? Any other alleviating factors: dark room, quiet GENERAL QUESTIONS (for any positive response note explanation) ??? Any current sleep concerns : doesn't sleep well - this is her norm ??? Any current appetite or eating concerns: N Any current pain concerns: N ??? Any new worries, stressors, or routine changes: N ??? Any recent Illness/Injuries/Surgeries: N Any additional information to relay: Jon have worked well in the past when she has had an ongoing headache. Our Headache Providers are not here today but HERNANDEZ Gentile has openings and agreed to see her for a procedure-only visit. Patient accepted the 2:00 visit for today. Plan/Intervention/Follow Up - Report forwarded to Dr. Mark for review. Current Medications: Outpatient Prescriptions Marked as Taking for the 10/06/16 encounter (Telephone) with Gracie Mark MD Medication Sig Dispense Refill ??? PROAIR HFA 90 mcg/actuation HFA Aerosol Inhaler INHALE 2 PUFFS BY MOUTH EVERY 4 HOURS NEEDED. USE WITH SPACER. 1 Inhaler 3 ??? candesartan (ATACAND) 8 mg Tablet 1 tab for 1 week then increase to 2 tabs if tolerating and cleared by Dr. Mark office (Patient taking differently: Take 16 mg by mouth daily.) 60 tablet 3 ??? baclofen (LIORESAL) 10 mg Tablet Take 1-2 tablets by mouth 3 times daily as needed (mild to moderate headache). 90 tablet 3 ??? diclofenac (CATAFLAM) 50 mg Tablet Take 1-2 tablets by mouth 2 times daily as needed. 90 tablet3 ??? omeprazole (PRILOSEC) 40 mg Capsule, Delayed Release(E.C.) Take 1 capsule by mouth daily. 90 capsule 3 ??? pramipexole (MIRAPEX) 0.5 mg Tablet Take 1-2 tablets by mouth nightly. Indications: Restless Legs Syndrome 180 tablet 3 Allergies Allergen Reactions ??? Bactrim [Sulfamethoxazole-Trimethoprim] Anaphylaxis ??? Aleve [Naproxen Sodium] Rash Per neuro team, patient has tolerated ketorolac in the past ??? Keflex [Cephalexin] Other (See Comments) Racing heart ??? Meloxicam Nausea Only * Telephone Encounter - Brandee Huntley - 10/06/2016 8:09 AM EST Caller: Tracie If not Pt / Relation to pt: Caller Contact Number: [phone] Best time to reach pt back: LORENZA Reason for call: patient called. She has a headache for the last three day Please call to discuss. Before 2:30pm - Informed caller that nurse will call back by the end of the day documented in this encounter Plan of Treatment Upcoming Encounters Date Type Department Care Team (Late st Contact Info) Description 09/05/2024 9:00 AM EDT Office Visit Internal Medicine at [address] [address] Gema Oliveira, [facility] [place] [address] documented as of this encounter Visit Diagnoses Not on filedocumented in this encounter Care Teams Product Development Intern Relationship Specialty Start Date End Date Nicolle Spencer MD [facility] [place] [address] PCP - General 01/21/15 12/05/16 documented as of this encounter
--- OUTSIDE RECORDS SUMMARY | 2024-07-12 00:33 | XMS_ITS | Encounter Summary ---
Author Organization Formerly [facility], Later [facility] Address [facility] [place] [address] Care Team Providers Care Screen Printing Paster Name Role Phone Nicolle Spencer MD Primary Care Provider [phone] Reason for Visit * Reason Comments Pre-op Exam Encounter Details Date Type Department Care Team (Late st Contact Info) Description 06/03/2016 9:15 AM EDT Office Visit Obstetrics [place] [address] Kaylynn Cortes APRN [facility] OBSTETRICS & [place] [address] Pre-op exam Social History Tobacco Use Types Packs/Day Years [...] Sign Reading Time Taken Comments Blood Pressure 128/74 06/03/2016 9:21 AM EDT Pulse 97 06/03/2016 9:21 AM EDT Temperature 37.5 ??C (99.5 ??F) 06/03/2016 9:21 AM ED T Respiratory Rate 20 06/03/2016 9:21 AM EDT Oxygen Saturation 96% 06/03/2016 9:21 AM EDT Inhaled Oxygen Concentration - - Weight 126.4 kg (278 lb 11.2 oz) 06/03/2016 9:21 AM EDT Height 177.8 cm (5' 10) 06/03/2016 9:21 AM EDT Body Mass Index 39.99 06/03/2016 9:21 AM EDT documented in this encounter H&P Notes * Kaylynn Cortes APRN - 06/03/2016 9:15 AM EDT Date of Visit: 06/03/2016 Planned Surgery Date: 06/08/16 Planned Procedure: Mid urethral sling Indications/Pre-op Diagnosis: mixed incontinence, stress dominating HISTORY OF PRESENT ILLNESS: Ms. Layton is a 45 y.o. woman who presents for her preoperative examination. Patient with history of symptomatic stress incontinence, desires surgical repair. Please see prior encounter notes for more detail. REVIEW OF SYMPTOMS/FUNCTIONAL STATUS: Chest pain: no Shortness of breath: yes when humid , has asthma, does get SOB Can you walk 1/2 mile or more? No, would get SOB Can you go up more than 2 flights of stairs? No, would get SOB Patient can dress herself? yes Prepare meals herself? yes Bleeding disorder (h/o nose bleeds, excessive bleeding following a surgical procedure?): no Personal or Family history of blood clots?: no Sexually active?: at times Last PAP smear: Pap last year- normal hx Past anesthesia problems?: no Past Medical History Diagnosis Date ??? ADHD (attention deficit hyperactivity disorder) ??? Agoraphobia ??? Alcohol abuse ??? Anxiety ??? Asthma ??? Cervical cancer 10/29/2014 Per pt in 2001, in [place], negative paps since? Chronic back pain ??? Depression hx suicide attempt ??? GERD (gastroesophageal reflux disease) ??? H/O suicide attempt 10/29/2014 Overdose in 1999 ??? History of cervical cancer 2001 s/p LEEP??? in [place] ??? HTN (hypertension) ??? Hyperlipidemia ??? Post-traumatic headache 09/29/2014 ??? Restless legs syndrome (RLS) ??? S/P tubal ligation 10/29/2014 Past Surgical History Procedure Laterality Date ??? Pro upper gi endoscopy, biopsy 01/08/2014 EGD WITH BIOPSY performed by Ilya Whitney MD at [facility] ENDOSCOPY ??? Cervix surgery LEEP ??? section ??? Pro colonoscopy, remv lesn, snare N/A 06/11/2015 COLONOSCOPY, POLYPECTOMY, REMOVAL LESION BY SNARE performed by Larry Ryan MD at [facility] ENDOSCOPY Outpatient Prescriptions Marked as Taking for the 06/03/16 encounter (Office Visit) with Kaylynn Cortes APRN Medication Sig Dispense Refill ??? omeprazole (PRILOSEC) [...] spacer 1 Inhaler 3 Current Facility-Administered Medications for the 06/03/16 encounter (Office Visit) with Kaylynn Cortes APRN Medication Dose Route Frequency Provider Last Rate Last Dose ??? ipratropium-albuterol (DUONEB) 0.5 mg-3 mg(2.5 mg base)/3 mL nebulizer solution 3 mL 3 mL Nebulization Q4H Kalyan Haney APRN 3 mL at 11/10/15 1153 Allergies Allergen Reactions ??? Bactrim [Sulfamethoxazole-Trimethoprim] Anaphylaxis ??? Aleve [Naproxen Sodium] Rash Per neuro team, patient has tolerated ketorolac in the past ??? Keflex [Cephalexin] Other (See Comments) Racing heart ??? Meloxicam Nausea Only Height 177.8 cm (5' 10). EXAM General: alert/oriented x 3, NAD, cooperative ENT: No lymphadenopathy, pharynx clear, Fair dentition Neck: No lymphadenopathy, no thyromegaly Chest: CTA soraya COR: RRR no murmur heard Abdomen: soft, non tender, no organomegaly Pelvic: deferred cough stress test Rectal: deferred to operating room. Extremities: no calf tenderness, no swelling today, has hx of swelling L >R when on her feet forlong periods of time IMPRESSION: Tracie Layton is a 45 y.o. woman with mixed incontinence, stress dominating who desires surgical repair. PLAN: ??? We will proceed with the above procedures on 06/08/16. ??? Anesthesia preference: per anesthesia ??? (x) Medications and herbal preparations reviewed Discussed: (x) Discontinuation of all herbal preparations, vitamin E 5 days preop (x) ASA, NSAIDS, Plavix: ( ) Hormones: ?? (x) Discontinue Solid foods at midnight ??? (x) Clear liquids (water, apple juice, mariam darlene, or black coffee) may be consumed until 2 hours prior to scheduled procedure. KAYLYNN CORTES APRN Division of Female Pelvic Medicine and Reconstructive Surgery documented in this encounter Plan of Treatment Upcoming Encounters Date Type Department Care Team (Late st Contact Info) Description 09/05/2024 9:00 AM EDT Office Visit Internal Medicine at [place] [id number] Gema Oliveira, [facility] [address] [address] documented as of this encounter Visit Diagnoses Diagnosis Pre-op exam Preoperative examination, unspecified documented in this encounter Care Teams Screen Printing Paster Relationship Specialty Start Date End Date Nicolle Spencer MD [facility] [place] [address] PCP - General 01/21/15 12/05/16 documented as of this encounter
--- OUTSIDE RECORDS SUMMARY | 2024-07-12 00:33 | XMS_ITS | Encounter Summary ---
[place] [address] Care Team Providers Care Tattoo And Body Artist Name Role Phone Nicolle Spencer MD Primary Care Provider [phone] Reason for Visit * Reason Onset Date Comments Medication Refill 11/28/2016 Encounter Details Date Type Department Care Team (Late st Contact Info) Description 11/28/2016 Refill Internal Medicine at [address] [address] Radha Crisostomo Social History Tobacco Use Types Packs/Day Years [...] Telephone Encounter - Leah Raines RN - 11/28/2016 4:12 PM EST Duoneb confirmed with patient as what she wants. Refill pended. * Telephone Encounter - Radha Crisostomo - 11/28/2016 4:05 PM EST Pt calls requesting a refill for her nebulizer solution - not on current med list, pt uses [facility] documented in this encounter Plan of Treatment Upcoming Encounters Date Type Department Care Team (Late st Contact Info) Description 09/05/2024 9:00 AM EDT Office Visit Internal Medicine at [address] [address] Gema Oliveira DO [facility] [address] [place] [address] documented as of this encounter Visit Diagnoses Not on filedocumented in this encounter Care Teams Tattoo And Body Artist Relationship Specialty Start Date End Date Nicolle Spencer MD [facility] [address] INTERNAL [place] [address] PCP - General 01/21/15 12/05/16 documented as of this encounter
--- OUTSIDE RECORDS SUMMARY | 2024-07-12 00:33 | XMS_ITS | Encounter Summary ---
Author Organization [facility] Address [facility] [place] [address] Care Team Providers Care Learning Engineer Name Role Phone Nicolle Spencer MD Primary Care Provider Encounter Details Date Type Department Care Team (Late st Contact Info) Description 06/07/2016 [place] [id number] Gracie Mark MD [facility] [place] [address] Social History Tobacco Use Types Packs/Day Years [...] Telephone Encounter - Zina Landeros RN - 06/07/2016 2:49 PM EDT Left message for patient asking for a return call to schedule headache admission for June 27 orJune 28. Asked patient to call [facility] to schedule the admission. * Telephone Encounter - Gracie Mark MD - 06/07/2016 1:42 PM EDT Lets plan for admission the following week for a modified taurus protocol Thank you Gracie Mark MD [facility] Neurology * Telephone Encounter - Zina Landeros RN - 06/07/2016 10:21 AM EDT Patient is scheduled for bladder surgery with Frankie Richards MD, who works here at in [employer]. We would like to schedule patient for a headache admission with Modified Taurus Protocol but would like his input (or his colleagues) on the timing of when this would be appropriate following her surgery with their department. Standard medication regimen during admission: - Modified Taurus Protocol: Diphenhydramine 25mg PO followed in about one hour by diazepam (sometimes used) followed by prochlorperazine (or metoclopramide), followed by diazepam IF she develops akithisia, followed in about 15 minutes by 0.5 mg of dihydroergotamine. Administer regimen TID with the dihydroergotamine titrated to the effective sub- nauseating dose; up to maximum dose of 1 mg of DHE TID. Potential for Toradol injections PRN This regimen is altered based on what the providers feel would be the best course based on patient's history and medications tried and failed. * Telephone Encounter - Zina Landeros RN - 06/07/2016 10:20 AM EDT ----- Message from Gracie Mark MD sent at 06/06/2016 4:28 PM EDT ----- Please contact the patient's urologist, he is admitting her next week to determine how long we needto wait before doing an inpatient modified Taurus protocol. Gracie Mark MD [facility] Neurology documented in this encounter Plan of Treatment Upcoming Encounters Date Type Department Care Team (Late st Contact Info) Description 09/05/2024 9:00 AM EDT Office Visit Internal Medicine at [address] [address] Gema Oliveira DO [facility] [place] [address] documented as of this encounter Visit Diagnoses Not on filedocumented in this encounter Care Teams Learning Engineer Relationship Specialty Start Date End Date Nicolle Spencer MD [facility] [place] [address] PCP - General 01/21/15 12/05/16 documented as of this encounter
--- OUTSIDE RECORDS SUMMARY | 2024-07-12 00:33 | XMS_ITS | Encounter Summary ---
Author Organization [facility] Address [facility] [place] [address] Care Team Providers Care Central Services Tech Name Role Phone Nicolle Spencer MD Primary Care Provider Reason for Visit * Reason Onset Date Comments Prior Authorization 08/22/2016 Encounter Details Date Type Department Care Team (Late st Contact Info) Description 08/22/[address] [place] [address] Gracie Mark MD [facility] [place] [address] Prior Authorization Social History Tobacco Use Types [...] encounter Miscellaneous Notes * Telephone Encounter - Sarah García CMA - 08/24/2016 8:35 AM EDT Placed call to pt lmoam that PA has been approved, I will call pharmacy to have them fill prescription and to call Ruth Ann for a F/U on her BP if we are to increase the med. * Telephone Encounter - Zina Landeros RN - 08/24/2016 7:59 AM EDT Images from the original note were not included. * Telephone Encounter - Sarah García CMA - 08/23/2016 3:06 PM EDT Faxed PA to [place] medicaid. * Telephone Encounter - Go Daly - 08/22/2016 1:33 PM EDT Caller: Patient If not Pt / Relation to pt: N/A Caller Contact Number: [phone] Best time to reach pt back: Any time this afternoon. Reason for call: Patient called in stating that she has not been able to start her candesartan thatDr. Mark prescribed on 08/10 because it needs a prior authorization. She stated [facility] in [place] has attempted to fax over a PA form. Patient wishes for a call back by the end of the day to be informed if this PA has been started or not. Before 2:30pm - Informed caller that nurse will call back by the end of the day documented in this encounter Plan of Treatment Upcoming Encounters Date Type Department Care Team (Late st Contact Info) Description 09/05/2024 9:00 AM EDT Office Visit Internal Medicine at [address] [address] Gema Olievira DO [facility] [place] [address] documented as of this encounter Visit Diagnoses Not on filedocumented in this encounter Care Teams Central Services Tech Relationship Specialty Start Date End Date Nicolle Spencer MD [facility] [place] [address] PCP - General 01/21/15 12/05/16 documented as of this encounter
--- OUTSIDE RECORDS SUMMARY | 2024-07-12 00:33 | XMS_ITS | Encounter Summary ---
Author Organization [facility] [place] [address] Care Team Providers Care Rail Car Loader Name Role Phone Nicolle Spencer MD Primary Care Provider [phone] Reason for Visit * Reason Comments Back Pain Lower Encounter Details Date Type Department Care Team (Late st Contact Info) Description 12/04/2016 3:57 PM EST - 12/04/2016 5:33 PM EST Emergency [place] [address] Amilcar Aguero MD [facility] [place] [address] Back pain, unspecified back location, unspecified back pain laterality, unspecified chronicity; Chronic low back pain without sciatica, unspecified back pain laterality Discharge Disposition: Home Social History Tobacco Use [...] Sign Reading Time Taken Comments Blood Pressure 158/93 12/04/2016 2:41 PM EST Pulse 97 12/04/2016 2:41 PM EST Temperature 36.9 ??C (98.4 ??F) 12/04/2016 2:41 PM ES T Respiratory Rate 13 12/04/2016 2:41 PM EST Oxygen Saturation 97% 12/04/2016 2:41 PM EST Inhaled Oxygen Concentration - - Weight 126.1 kg (278 lb) 12/04/2016 2:41 PM EST Height 177.8 cm (5' 10) 12/04/2016 2:41 PM EST Body Mass Index 39.89 12/04/2016 2:41 PM EST documented in this encounter Discharge Instructions * Discharge Instructions* Amilcar Aguero MD - 12/04/2016 5:17 PM EST COntinue to take the flexeril as needed. Return to the Emergency Department if you experience fever, chills, weakness, numbness, if your pain is not controlled, or if you have any new symptoms or concerns. If your back pain is not improving you may need x-rays or an MRI. It is important that you follow up with your primary care doctor for a recheck within the next week. Your doctor may prescribe medication to help control your symptoms. If you are prescribed Percocet or Vicodin it is important to follow certain instructions: do no drink alcohol, drive a car or operate machinery with this medication - it will make you sleepy. These medications also contain acetaminophen (abbreviated APAP on the medication bottle) which is the main ingredient in Tylenol - do not take extra Tylenol with this medication as it is dangerous for your liver. Flexeril, another common medication for back pain, can also make you sleepy. You should not drive or operated machinery with this medication either. documented in this encounter Medications at Time of Discharge Medication Sig Dispensed Refills Start Date End Date omeprazole (PRILOSEC) 40 mg Capsule, Delayed Release(E.C.) Take 40 mg by mouth daily. 04/20/2017 cyclobenzaprine (FLEXERIL) 10 mg TabletIndications:Alix k pain, unspecified back location, unspecified back pain laterality, unspecified chronicity Take 1 tablet by mouth 3 times daily as needed for Muscle spasms. 20 tablet 12/04/2016 12/06/2016 ipratropium-albuterol (DUONEB) 0.5 mg-3 mg(2.5 mg base)/3 [...] 10/19/2015 04/19/2017 documented as of this encounter ED Notes * Amilcar Aguero MD - 12/04/2016 4:22 PM EST Chief Complaint Patient presents with ??? Back Pain Lower HPI Tracie Layton is a 45 y.o. female presenting with 1d of an acute exacerbation of chronic lower back pain. She has had similar exacerbations over the last several years, and was told it was due to DJD. The pain is dull, severe, nonradiating, exacerbated by movement. She has had relief in past with toradol and flexeril. No bowel/bladder sx, numbness/weakness/tingling, abdominal pain, urinary symptoms. No recent trauma. Allergies Allergen Reactions ??? Bactrim [Sulfamethoxazole-Trimethoprim] Anaphylaxis ??? Aleve [Naproxen Sodium] Rash Per neuro team, patient has tolerated ketorolac in the past ??? Keflex [Cephalexin] Other (See Comments) Racing heart ??? Meloxicam Nausea Only Review of Systems Constitutional: Negative for chills, fever and unexpected weight change. Eyes: Negative for visual disturbance. Respiratory: Negative for chest tightness and shortness of breath. Cardiovascular: Negative for chest pain. Gastrointestinal: Negative for abdominal pain. Endocrine: Negative for cold intolerance. Genitourinary: Negative for hematuria. Musculoskeletal: Positive for back pain. Negative for gait problem and neck pain. Skin: Negative for color change, pallor and rash. Neurological: Negative for dizziness, tremors, weakness, light-headedness and numbness. Hematological: Negative for adenopathy. Psychiatric/Behavioral: Negative for agitation. All other systems reviewed and are negative. Physical Exam Constitutional: She is oriented to person, place, and time. She appears well- developed and well-nourished. HENT: Head: Normocephalic and atraumatic. Eyes: Pupils are equal, round, and reactive to light. Cardiovascular: Normal rate. Pulmonary/Chest: Effort normal and breath sounds normal. Abdominal: Soft. There is no tenderness. There is no rebound and no guarding. Musculoskeletal: Diffuse midline and paraspinal tenderness to palpation lower back. Neurological: She is alert and oriented to person, place, and time. No cranial nerve deficit. Strength 5/5 throughout lower extremities, normal sensation Skin: Skin is warm and dry. Procedures MDM Number of Diagnoses or Management Options ED Course: ED Course 45 y.o. F with acute exacerbation of chronic back pain. No red flags. She typically has relief withtoradol and flexeril. Will treat with these medicines and discharge home with outpatient follow up. Amilcar Aguero MD 12/04/16 1817 * Dagoberto Pacheco RN - 12/04/2016 4:12 PM EST They usually treat with Toradol and Flexeril. documented in this encounter Plan of Treatment Upcoming Encounters Date Type Department Care Team (Late st Contact Info) Description 09/05/2024 9:00 AM EDT Office Visit Internal Medicine at [address] [address] Gema Oliveira, [facility] [address] documented as of this encounter Visit Diagnoses Diagnosis Back pain, unspecified back location, unspecified back pain laterality, unspecified chronicity Chronic low back pain without sciatica, unspecified back pain laterality documented in this encounter Administered Medications Inactive Administered Medications - up to 3 most recent administrations Medication Order MAR Action Action Date Dose Rate Site cyclobenzaprine (FLEXERIL) tablet 10 mg 10 mg, Oral, ONCE, 1 dose, On 12/04/16 at 1623, STAT Given 12/04/2016 4:23 PM EST 10 mg ketorolac (TORADOL) injection 15 mg 15 mg, Intramuscular, ONCE, 1 dose, On 12/04/16 at 1623, STAT Given 12/04/2016 4:23 PM EST 15 mg documented in this encounter Active and Recently Administered Medications Times are shown in EST. Scheduled Medication Order 12/02/2016 12/03/2016 12/04/2016 cyclobenzaprine (FLEXERIL) tablet 10 mg (COMPLETED) 10 mg, Oral, ONCE, 1 dose, On 12/04/16 at 1623, STAT 1623 (Given - Provid er: Dagoberto Pacheco RN) ketorolac (TORADOL) injection 15 mg (COMPLETED) 15 mg, Intramuscular, ONCE, 1 dose, On 12/04/16 at 1623, STAT 1623 (Given - Provid er: Dagoberto Pacheco RN) documented in this encounter Care Teams Rail Car Loader Relationship Specialty Start Date End Date Nicolle Spencer MD [facility] [address] [address] PCP - General 01/21/15 12/05/16 documented as of this encounter
--- OUTSIDE RECORDS SUMMARY | 2024-07-12 00:33 | XMS_ITS | Encounter Summary ---
Author Organization [facility] Address [facility] [place] [address] Care Team Providers Care Liquid Flavor Compounder Name Role Phone Nicolle Spencer MD Primary Care Provider Reason for Visit * Reason Onset Date Comments Medication Refill 03/25/2016 Encounter Details Date Type Department Care Team (Late st Contact Info) Description 03/25/2016 Ref[place] [address] Gracie Mark MD [facility] [place] [address] Headache(484.0) Social History Tobacco Use Types Packs/Day Years [...] Telephone Encounter - Zina Landeros RN - 03/25/2016 12:[address] Mark and she approved patient re-starting methergine. Patient stopped 02/22/16 for admission. Called patient and let her know this was okay and she states she needs refills on her medication asshe is out. * Telephone Encounter - Go Daly - 03/25/2016 10:49 AM EDT Patient called in asking if she could go back on the Methergine, as her migraines have become worsesince she stopped taking it. Please call her back to discuss. documented in this encounter Plan of Treatment Upcoming Encounters Date Type Department Care Team (Late st Contact Info) Description 09/05/2024 9:00 AM EDT Office Visit Internal Medicine at [address] [address] Gema Oliveira, [facility] [address] documented as of this encounter Visit Diagnoses Diagnosis Headache(784.0) Headache documented in this encounter Care Teams Liquid Flavor Compounder Relationship Specialty Start Date End Date Nicolle Spencer MD [facility] [address] INTERNAL [place] [address] PCP - General 01/21/15 12/05/16 documented as of this encounter
--- OUTSIDE RECORDS SUMMARY | 2024-07-12 00:33 | XMS_ITS | Encounter Summary ---
Author Organization [facility] Address [facility] [place] [address] Care Team Providers Care Heel Cutter Name Role Phone Nicolle Spencer MD Primary Care Provider [phone] Reason for Visit * Reason Comments Wound Check Encounter Details Date Type Department Care Team (Latest Contact Info) Description 06/13/2016 10:30 AM EDT Office Visit Obstetrics [place] [address] Iker Fontanez MD [facility] OBST[facility] [place] [address] Postoperative examination Social History Tobacco Use Types Packs/Day Years [...] Sign Reading Time Taken Comments Blood Pressure 136/86 06/13/2016 10:31 AM EDT Pulse 109 06/13/2016 10:31 AM EDT Temperature 37.1 ??C (98.7 ??F) 06/13/2016 1 0:31 AM EDT Respiratory Rate 20 06/13/2016 10:3 1 AM EDT Oxygen Saturation 99% 06/13/2016 10: 31 AM EDT Inhaled Oxygen Concentration - - Weight 125.3 kg (276 lb 4.8 oz) 016 10:31 AM EDT Height 177.8 cm (5' 10) 06/13/2016 10: 31 AM EDT Body Mass Index 39.64 06/13/2016 10:31 AM EDT documented in this encounter Progress Notes * Iker Fontanez - 06/13/2016 10:30 AM EDT Acute Office Visit ID: Tracie Layton is a 45 y.o. POD#5 s/p MUS with Pari Richards and Jesika presents with concerns for vaginal bleeding S: The patient has had some bleeding in the morning when she wakes up. It has become less and less every morning and it makes her worried. She denies fever, chills, chest pain, shortness of breath. No abnormal vaginal discharge. Tracie has been voiding without difficulty and she's not noticed any new lumps or bumps in that area. Her pain is well controlled. Tracie has continued to smoke and is down to half to 1/4 ppd. She is not yet ready to quit O Vitals: 06/13/16 1031 BP: 136/86 Pulse: 109 Resp: 20 Temp: 37.1 ??C (98.7 ??F) Gen: well-appearing women who moves easily to the exam table, NAD : Puncture sites inferior to the ligament of adductor longus appear to be healing well without erythema or induration. The skin glue is still in place but falling off. Labia and perineum appear normal and without lesions bilaterally. Urethra is without prolapse. The introitus is without lesions. The inferior side of a Ted speculum was placed and the vagina appears moist and ruggated without discoloration or hematoma. The anterior aspect of the vagina is without erythema or induration. Suture note is visible at the superior aspect of the incision. No mesh is noted. Small amount of serosanguinous fluid is present with using a swab. No active bleeding noted. No evidence of dehiscence. No odor noted. A/p: Tracie Layton is a 45 y.o. POD#5 s/p MUS with Pari Richards and Jesika presents with concernsfor vaginal bleeding. She is not experiencing vaginal bleeding at this time except for a small amount of normal appearing serosanguinous fluid. The incision appears to be healing well. She likely hasa little more discharge in the morning due to lying flat all night. No signs of infection or mesh erosion. Rtn in 4 weeks for post-operative check. Call prn. IKER FONTANEZ MD PGY4 * Himanshu Kay MD - 06/13/2016 10:30 AM EDT Tracie Layton was discussed with me at the time of the visit or immediately after the visit. The assessment and plan were formulated in discussion with me and I agree with them as documented. I have reviewed the history, physical exam, assessment and plan with Dr Fontanez. Major issues discussed today: Postop, recovering appropriately. HIMANSHU KAY MD documented in this encounter Plan of Treatment Upcoming Encounters Date Type Department Care Team (Late st Contact Info) Description 09/05/2024 9:00 AM EDT Office Visit Internal Medicine at [place] [id number] Gema Oliveira DO [facility] [place] [address] documented as of this encounter Visit Diagnoses Diagnosis Postoperative examination Follow-up examination, following unspecified surgery documented in this encounter Care Teams Heel Cutter Relationship Specialty Start Date End Date Nicolle Spencer MD [facility] [place] [address] PCP - General 01/21/15 12/05/16 documented as of this encounter
--- OUTSIDE RECORDS SUMMARY | 2024-07-12 00:33 | XMS_ITS | Encounter Summary ---
Author Organization [facility] [place] [address] Care Team Providers Care Stripper And Opaquer Apprentice Name Role Phone Nicolle Spencer MD Primary Care Provider Reason for Visit * Reason Comments Chest Pain Encounter Details Date Type Department Care Team ([facility] st Contact Info) Description 08/24/2016 9:08 AM EDT - 08/24/2016 1:24 PM EDT Emergency [place] [address] Zonia Lake MD [address] [place] [address] [place] [address] Neck pain; Cervical radiculitis Discharge Disposition: Home Social History Tobacco Use [...] Sign Reading Time Taken Comments Blood Pressure 135/88 08/24/2016 12:00 PM EDT Pulse 73 08/24/2016 12:15 PM EDT Temperature - - Respiratory Rate 12 08/24/2016 12:15 PM EDT Oxygen Saturation 98% 08/24/2016 12:15 PM EDT Inhaled Oxygen Concentration - - Weight - - Height - - Body Mass Index - - documented in this encounter Discharge Instructions * Discharge Instructions* Zonia Lake MD - 08/24/2016 1:19 PM EDT Images from the original note were not included. Your labs are normal. Your pain is most likely due to muscle irritation of nerves in your neck. Youcan take ibuprofen 600mg up to four times a day as needed for pain. Follow-up with your doctor within 1 week, if not sooner. Return to the ED if you have chest pain, difficulty breathing, you pass out, or any other concerns. [facility] Neck Pain: After Your Visit Your Care Instructions You can have neck pain anywhere from the bottom of your head to the top of your shoulders. It can spread to the upper back or arms. Injuries, painting a ceiling, sleeping with your neck twisted, staying in one position for too long, and many other activities can cause neck pain. Most neck pain gets better with home care. Your doctor may recommend medicine to relieve pain or relax your muscles. He or she may suggest exercise and physical therapy to increase flexibility and relieve stress. You may need to wear a special (cervical) collar to support your neck for a day or two. Follow-up care is a sandhu part of your treatment and safety. Be sure to make and go to all appointments, and call your doctor if you are having problems. It???s also a good idea to know your test results and keep a list of the medicines you take. How can you care for yourself at home? ?? Try using a heating pad on a low or medium setting for 15 to 20 minutes every 2 or 3 hours. Try a warm shower in place of one session with the heating pad. ?? You can also try an ice pack for 10 to 15 minutes every 2 to 3 hours. Put a thin cloth between the ice and your skin. ?? Take pain medicines exactly as directed. ?? If the doctor gave you a prescription medicine for pain, take it as prescribed. ?? If you are not taking a prescription pain medicine, ask your doctor if you can take an vqla-dop-ahmwwck medicine. ?? If your doctor recommends a cervical collar, wear it exactly as directed. ?? Avoid things that might increase swelling, such as hot showers, hot tubs, or hot packs, for the first 2 days after an injury. When should you call for help? Call your doctor now or seek immediate medical care if: ?? You have new or worsening numbness in your arms, buttocks or legs. ?? You have new or worsening weakness in your arms or legs. (This could make it hard to stand up.) ?? You lose control of your bladder or bowels. Watch closely for changes in your health, and be sure to contact your doctor if: ?? Your neck pain is getting worse. ?? You are not getting better after 1 week. ?? You do not get better as expected. Where can you learn more? Visit our health information library at [email or web address] You can also view health information on [employer], your personal patient account. Log in or sign up today. Enter V723 in the search box to learn more about Neck Pain: After Your Visit. ?? [id number] [employer]. Care instructions adapted under license by [facility]. This care instruction is for use with your licensed healthcare professional. If you have questions about a medical condition or this instruction, always ask your healthcare professional. [employer] disclaims any warranty or liability for your use of this information. Content Version: 10.4.262609; Current as of: October 03, 2014 documented in this encounter Medications at Time of Discharge Medication Sig Dispensed Refills Start Date End Date candesartan (ATACAND) 8 mg Tablet 1 tab for 1 week then increase to 2 tabs if tolerating and cleared by Dr. Mark office 60 tablet 3 08/10/2016 11/17/2016 baclofen (LIORESAL) 10 mg Tablet Take 1-2 tablets by mouth 3 times daily as needed (mild to moderate headache). 90 tablet 3 08/10/2016 11/17/2016 diclofenac (CATAFLAM) 50 mg Tablet Take 1-2 tablets by mouth 2 times daily as needed. 90 tablet 3 08/10/2016 11/17/2016 buPROPion (WELLBUTRIN SR OR ZYBAN) 150 mg Tablet Sustained ReleaseIndications:Pers istent mood disorder,Tobacco abuse,ADD (attention deficit disorder) Start medication 1-2 weeks prior to quit date. Take 1 tab daily for 3 days and then twice daily for 6 weeks. 90 tablet 1 07/19/2016 10/06/2016 omeprazole (PRILOSEC) 40 mg Capsule, Delayed Release(E.C.)Indication s:Gastroesophageal reflux disease without esophagitis Take 1 capsule by mouth daily. 90 capsule 3 11/06/2015 01/09/2017 pramipexole (MIRAPEX) 0.5 mg TabletIndications:restl ess leg syndrome Take 1-2 tablets by mouth nightly. Indications: Restless Legs Syndrome 180 tablet 3 10/19/2015 04/19/2017 albuterol (PROVENTIL HFA;VENTOLIN HFA;PROAIR) 90 mcg/actuation HFA Aerosol InhalerIndications:Asth ma, mild intermittent, uncomplicated Inhale 2 puffs into the lungs every 4 hours as needed. Use with spacer 1 Inhaler 3 08/24/2015 10/04/2016 documented as of this encounter ED Notes * Deidre Fish RN - 08/24/2016 11:21 AM EDT Pt updated on plan of care. Pending lab draw at 1230 * Zonia Lake MD - 08/24/2016 9:44 AM EDT Chief Complaint: Chief Complaint Patient presents with ??? Chest Pain HPI: Tracie Layton is a 45 y.o. female who presents to the emergency department complaining of neck pain. The patient states that she developed symptoms of pain radiating from her jaw down her left arm hurting about 45 minutes prior to arrival. This was accompanied with symptoms of lightheadedness and nausea. Her pain was 6 out of 10 in intensity and has not changed since onset. There are no modifying factors. She has not had similar symptoms in the past. She denies fevers, chills or weakness. She does have daily headaches at baseline which are unchanged. She describes some tingling in the fingers of her left hand. She has not attempted any treatment. She denies recent trauma. ROS: Review of Systems Constitutional: Negative for chills and fever. HENT: Negative for rhinorrhea. Eyes: Positive for visual disturbance (blurry vision). Respiratory: Negative for cough and shortness of breath. Cardiovascular: Negative for chest pain. Gastrointestinal: Positive for nausea. Negative for abdominal pain. Genitourinary: Negative for dysuria and frequency. Musculoskeletal: Positive for neck pain. Skin: Negative for rash. Neurological: Positive for light-headedness, numbness and headaches. Negative for weakness. Hematological: Does not bruise/bleed easily. Psychiatric/Behavioral: Negative for confusion. Physical Exam: Patient Vitals for the past 8 hrs: BP Pulse Resp SpO2 08/24/16 0914 138/75 100 21 98 % Physical Exam Constitutional: She is oriented to person, place, and time. She appears well- developed and well-nourished. No distress. HENT: Head: Normocephalic and atraumatic. Eyes: Conjunctivae are normal. No scleral icterus. Cardiovascular: Normal rate, regular rhythm, normal heart sounds and intact distal pulses. Pulmonary/Chest: Effort normal and breath sounds normal. Abdominal: Soft. Bowel sounds are normal. She exhibits no distension. There is no tenderness. Musculoskeletal: She exhibits no edema. Lymphadenopathy: She has no cervical adenopathy. Neurological: She is alert and oriented to person, place, and time. Cranial nerves III-XII intact Strength: 5/5 R, 5/5 L shoulder abduction 5/5 R, 5/5 L elbow flexion 5/5 R, 5/5 L elbow extension 5/5 R, 5/5 L finger abduction 5/5 R, 5/5 L charge loader strength 5/5 R, 5/5 L hip flexion Sensation subjectively decreased in left hand No pronator drift Finger to nose coordination intact Skin: Skin is warm and dry. Psychiatric: She has a normal mood and affect. Her behavior is normal. Judgment and thought contentnormal. Imaging: EKG- Normal sinus rhythm Possible Left atrial enlargement Septal infarct , age undetermined Procedures: none MDM: This patient was seen and discussed with Dr. Lake. This is a 45-year-old female with a history of anxiety, depression and hypertension presenting with neck and arm pain. The patient's symptoms most closely represented radicular pain. She was mildly concerning for ACS given her nausea, lightheadedness and pain in a potentially referred pattern. She did not have symptoms concerning for central nervous dysfunction, meningitis or myelitis. Initial labs are unremarkable. Her heart score was 1 making her very low risk for ACS. We will plan to repeat a 3 hour troponin and discharge with close follow-up for potential outpatient imaging of her neck as needed if negative. HEART Score: Predicts 6-week risk of major adverse cardiac event. History Slightly suspicious (0) EKG Normal (0) Age Less than or = 45 (0) Risk Factors Risk factors include: ??? Hypercholesterolemia ??? Hypertension ??? Diabetes Mellitus ??? Cigarette smoking ??? Positive family history ??? Obesity 1-2 risk factors (+1) Troponin Less than or equal to normal limit (0) Total Score: 1 SCORE: Low risk patients have a score 0-3 and have a less than 2% risk of major adverse cardiac event at 6weeks. I discussed the risk of ACS with the patient, we decided to: Have close follow up with PCP with possible outpatient stress test. ED Course: - A focused history and physical was gathered - EKG demonstrated Q waves in V1 and V2 - Labs were ordered and interpreted, unremarkable - Repeat troponin at 12:30 Jhoan Villegas MD Resident 08/24/16 1151 ED ATTENDING ATTESTATION NOTE The patient was seen in conjunction with Dr. Villegas, the resident physician. I have independently performed the sandhu portions of the history and physical exam. I have reviewed the nursing notes, vitalsigns, and all diagnostic studies personally including labs, imaging studies and EKGs. I have discussed the details of the case with the resident and agree with the assessment and plan as described in the resident note above unless noted otherwise below. Brief Summary: 45y/o woman presents with left neck pain radiating down her left arm with associatedtingling in her medial fingers. It has been constant and does not change with exertion. The only thing that makes it worse is raising her arm. This is most consistent with musculoskeletal spasm leading to peripheral nerve irritation. There is no weakness in the median, ulna, or radial nerve distribu tion and she has sensation throughout. She is low risk for chest pain. EKG is negative for ST changes x 2, although she has Q waves in V1 and V2 (the Q waves in V1 are old). Troponin is negative x 2.Her presentation is not consistent with PE or carotid dissection (normal bilateral pulses, no pain over the carotids, no neuro or vascular deficits). She did not want any analgesics in the ED. She will f/u with her PCP. Final Assessment: Left neck pain radiating down her left arm. Discharged home with outpatient f/u. Zonia Lake MD 08/24/16 5595 documented in this encounter Miscellaneous Notes * ED Triage - Deidre Fish RN - 08/24/2016 9:17 AM EDT Pt presents to the ED AAOX4 c/o left sided chest pain that radiates from her jaw to left arm. +Lightheadedness, nausea, numbness in left arm. Denies SOb, acute headache, vomiting, diarrhea. Respirations even and unlabored. Skin pink warm and dry documented in this encounter Plan of Treatment Upcoming Encounters Date Type Department Care Team (Late st Contact Info) Description 09/05/2024 9:00 AM EDT Office Visit [place] [address] [facility] [place] [address] documented as of this encounter Procedures Procedure Name Priority Date/Time Associated Diagnosis Comments EKG 12-LEAD STAT 08/24/2016 1:00 PM EDT TROPONIN Timed 08/24/2016 12:01 PM EDT HEMOGRAM STAT 08/24/2016 9:21 AM EDT DIFFERENTIAL, AUTOMATED STAT 08/24/2016 9:21 AM EDT GOLD TUBE HOLD STAT 08/24/2016 9:21 AM EDT BLUE TUBE HOLD STAT 08/24/2016 9:21 AM EDT CARDIAC ENZYMES ([facility]) STAT 08/24/2016 9:21 AM EDT CBC (WITH DIFF) STAT 08/24/2016 9:21 AM EDT BASIC METABOLIC PANEL STAT 08/24/2016 9:21 AM EDT EKG 12-LEAD STAT 08/24/2016 9:10 AM EDT documented in this encounter Results * EKG 12 Lead (08/24/2016 1:00 PM EDT) [facility] Ventricular rate 80 BPM MUSE SYSTEM Atrial Rate 80 BPM MUSE SYSTEM P-R Interval 126 ms MUSE SYSTEM QRS Duration 72 ms MUSE SYSTEM Q-T Interval 404 ms MUSE SYSTEM QTC Calculated (Bezet) 465 ms MUSE SYSTEM Calculated P Shedd 47 degrees MUSE SYSTEM Calculated R Shedd 24 degrees MUSE SYSTEM Calculated T Shedd 7 degrees MUSE SYSTEM INTERPRETATION Normal sinus rhythm Normal ECG When compared with ECG of 24-AUG-2016 09:10, (unconfirmed) No significant change was found Confirmed by MD Keaton, Kwame Murcia ([id number]) on 08/24/2016 5:29:35 PM MUSE SYSTEM 08/24/2016 1:00 PM EDT 08/24/2016 5:29 PM EDT Zonia Lake MD ECG ORDERABLES MUSE SYSTEM * Troponin T (08/24/2016 12:01 PM EDT) Pathologist [facility] Troponin-T <0.03 <=0.03 ng/mL [facility] Comment: 0.03 ng/mL: Represents the 99th percentile upper reference limit for normals. >0.03 ng/mL: Elevated cardiac troponin T level indicative of myocardial damage. Diagnosis of acute, evolving or recent MN requires a typical rise and gradual fall of cTnT with at least ONE of the following: a) Ischemic symptoms b) Development of pathologic Q waves on the ECG c) ECG changes indicative of eschemia (S-T segment elevation/depression) d) Coronary artery intervention Serial bloods should be obtained for testing on admission, at 6 to 9 hrs and again at 12 to 24 hrs if earlier samples are negative and the clinical index of suspicion is high. Reference: [Myocardial infarction redefined? a consensus document of the Joint Society of Cardiology/[place] [employer] Committee for the redefinition of myocardial infarction. ??Journal of the [place] College [employer] 2000; 36: 959-969] Blood specimen (specimen) 08/24/2016 12:01 PM EDT 08/24/2016 12:22 PM EDT Narrative Resulting Agency Comment Spec In Lab Zonia Lake MD CHEMISTRY ORDERABLES Performing Organization Address City/[facility]/ZIP Co de Phone Number [facility] [place] [address] * Gold Tube HOLD (08/24/2016 9:21 AM EDT) Gold Hold Sample in lab. [facility] Blood specimen (specimen) No Charge / Unknown 08/24/2016 9:21 AM EDT 08/24/2016 9:39 AM EDT Zonia Lake MD CHEMISTRY ORDERABLES Performing Organization Address City/[facility] Co de Phone Number [facility] [place] [phone] * Differential, Automated (08/24/2016 9:21 AM EDT) Neutrophil % 50.4 % [facility] Neutrophil Absolute 4.26 1.70 - 6.10 x10(3)/[facility] Lymph % 38.2 % [facility] Lymphocytes Abs 3.2 0.9 - 3.2 x10(3)/[facility] Monocyte % 7.9 % [facility] Monocyte Abs 0.7 0.3 - 0.9 x10(3)/[facility] Eos % 2.6 % [facility] Eosinophils Abs 0.2 0.0 - 0.4 x10(3)/[facility] Basophil % 0.4 % [facility] Baso Absolute 0.0 0.0 - 0.1 x10(3)/[facility] Immature Gran % 0.50 % [facility] Comment: Immature granulocytes(IG's)percentage and absolute count will include metamyelocytes, myelocytes, and promyelocytes. Blood smears from CBCs yielding IG's will be scanned manually for concordance. If this scan disagrees with the automated IG or if promyelocytes are noted, a manual differential will be performed. Immature Gran Absolute 0.04 0.00 - 0.04 x10(3)/[facility] Blood specimen (specimen) 08/24/2016 9:21 AM EDT 08/24/2016 9:38 AM EDT Narrative Resulting Agency Comment Spec In Lab Zonia Lake MD HEMATOLOGY ORDERABLE S Performing Organization Address City/State/[facility] Co de Phone Number [facility] [place] [address] * Hemogram (08/24/2016 9:21 AM EDT) White Blood Cell 8.4 4.0 - 9.5 x10(3)/[facility] Red Blood Cell 5.10 4.00 - 5.21 x10(6)/[facility] Hemoglobin 14.5 11.7 - 15.5 gm/dL [facility] Hematocrit 42.5 35.7 - 45.8 % [facility] Mean Cell Volume 83.3 82.6 - 94.4 fL [facility] Mean Cell Hemoglobin 28.4 27.1 - 32.0 pg [facility] Mean Cell Hemoglobin Concentration 34.1 31.7 - 35.0 gm/dL [facility] Platelet 221 145 - 357 x10(3)/[facility] RDW Standard Deviation 38.2 37.0 - 46.0 fL [facility] RDW coefficient of variation 12.5 11.5 - 14.1 % [facility] Mean Platelet Volume 10.7 7.6 - 12.9 fL [facility] NRBC% auto 0.0 % [facility] NRBC Absolute 0.000 0.000 - 0.000 x10(3)/mcL [facility] Blood specimen (specimen) 08/24/2016 9:21 AM EDT 08/24/2016 9:38 AM EDT Narrative Resulting Agency Comment Spec In Lab Zonia Lake MD HEMATOLOGY ORDERABLE S [facility] [place] [address] * (ABNORMAL) Basic Metabolic Panel (non-fasting) (08/24/2016 9:21 AM EDT) Glucose 111 65 - 199 mg/dL [facility] Comment:Diabetes: >=200 mg/d L plus symptoms Blood Urea Nitrogen 13 8 - 18 mg/dL [facility] Creatinine 1.12 0.70 - 1.20 mg/dL [facility] Comment: Please note that the pediatric reference intervals supplied above were not validated at [facility]. Results from pediatric patients should be interpreted in conjunction to the patient's age, height and muscle mass. Sodium 139 135 - 145 mmol/L [facility] Potassium 3.7 3.5 - 5.0 mmol/L [facility] Comment: Please note: ??Patients with WBC >100,000 may have falsely elevated Potassium levels. ??For accurate Potassium quantification in these patients send serum separator tube (gold top) for subsequent determinations. ??Contact the Clinical Chemistry Laboratory if there are any questions. Chloride 102 98 - 107 mmol/L [facility] Carbon Dioxide 21(L) 22 - 31 mmol/L [facility] Anion Gap 16(H) 5 - 15 mmol/L [facility] Calcium 9.2 8.5 - 10.5 mg/dL [facility] Est Glomerular Filtration Rate 53(L) >=60 [facility] Comment: This estimated GFR (eGFR) value was calculated using the MDRD equation which has been validated on patients between the ages of 18 and 70. The MDRD should not be used to assess kidney function in patients < 18 years of age or in patients with extremes of body mass, or in patients with acute kidney failure. This value should be multiplied by 1.2 for patients. For further information please copy and paste the following links into your internet browser. [email or web address] Blood specimen (specimen) 08/24/2016 9:21 AM EDT 08/24/2016 9:38 AM EDT Narrative Resulting Agency Comment Spec In Lab Zonia Lake MD CHEMISTRY ORDERABLES [facility] [place] [address] * Cardiac Enzymes (08/24/2016 9:21 AM EDT) Troponin-T <0.03 <=0.03 ng/mL [facility] Comment: 0.03 ng/mL: Represents the 99th percentile upper reference limit for normals. >0.03 ng/mL: Elevated cardiac troponin T level indicative of myocardial damage. Diagnosis of acute, evolving or recent MN requires a typical rise and gradual fall of cTnT with at least ONE of the following: a) Ischemic symptoms b) Development of pathologic Q waves on the ECG c) ECG changes indicative of eschemia (S-T segment elevation/depression) d) Coronary artery intervention Serial bloods should be obtained for testing on admission, at 6 to 9 hrs and again at 12 to 24 hrs if earlier samples are negative and the clinical index of suspicion is high. Reference: [Myocardial infarction redefined? a consensus document of the Joint Society of Cardiology/[place] [employer] Committee for the redefinition of myocardial infarction. ??Journal of the [place] [employer]iology 2000; 36: 959-969] Creatine Kinase 53 0 - 160 unit/L [facility] Blood specimen (specimen) 08/24/2016 9:21 AM EDT 08/24/2016 9:38 AM EDT Narrative Resulting Agency Comment Spec In Lab Zonia Lake MD CHEMISTRY ORDERABLES Performing Organization Address [facility] Co de Phone Number [facility] [place] [address] * Blue Tube HOLD (08/24/2016 9:21 AM EDT) Blue Hold Sample in lab. [facility] Blood specimen (specimen) 08/24/2016 9:21 AM EDT 08/24/2016 9:38 AM EDT Zonia Lake MD HEMATOLOGY ORDERABLE S Performing Organization Address [facility] Phone Number [facility] [place] [address] * EKG 12 Lead (08/24/2016 9:10 AM EDT) Ventricular rate 99 BPM MUSE SYSTEM Atrial Rate 99 BPM MUSE SYSTEM P-R Interval 122 ms MUSE SYSTEM QRS Duration 70 ms MUSE SYSTEM Q-T Interval 338 ms MUSE SYSTEM QTC Calculated (Bezet) 433 ms MUSE SYSTEM Calculated P Shedd 63 degrees MUSE SYSTEM Calculated R Shedd 27 degrees MUSE SYSTEM Calculated T Shedd 12 degrees MUSE SYSTEM INTERPRETATION Normal sinus rhythm Possible Left atrial enlargement Abnormal ECG When compared with ECG of 22-FEB-2016 17:42, No significant change was found Confirmed by MD Keaton, Kwame Murcia ([id number]) on 08/24/2016 6:02:44 PM MUSE SYSTEM 08/24/2016 9:10 AM EDT 08/24/2016 6:02 PM EDT Zonia Lake MD ECG ORDERABLES Performing Organization Address [facility] Co de Phone Number MUSE SYSTEM documented in this encounter Visit Diagnoses Diagnosis Neck pain Cervicalgia Cervical radiculitis Brachial neuritis or radiculitis nos documented in this encounter Care Teams Stri[employer]pa[employer] Apprentice Relationship Specialty Start Date End Date Nicolle Spencer MD [facility] [place] [place] [address] PCP - General 01/21/15 12/05/16 documented as of this encounter
--- OUTSIDE RECORDS SUMMARY | 2024-07-12 00:33 | XMS_ITS | Encounter Summary ---
[place] [address] Care Team Providers Care Engineering Documentation Specialist Name Role Phone Nicolle Spencer MD Primary Care Provider [phone] Reason for Visit * Reason Onset Date Comments Medical Care Coordination 12/05/2016 CC pos t ED DC Encounter Details Date Type Department Care Team (Latest Contact Info) Description 12/05/2016 Patient Outreach [place] [address] Charlotte Wilhelm, RN Medical Care Coordination (CC post ED DC) Social History Tobacco Use Types Packs/Day Years [...] encounter Miscellaneous Notes * Telephone Encounter - Charlotte Wilhelm, RN - 12/05/2016 12:09 PM EST Tight Cooper call to pt as follow up from recent ED visit : Voice message left on an identifiable answering machine requesting a return call to [facility] with any questions or concerns/or should she feels she needs to be seen sooner than the Dec [address] Unger . documented in this encounter Plan of Treatment Upcoming Encounters Date Type Department Care Team ( Contact Info) Description 09/05/2024 9:00 AM EDT Office Visit Internal Medicine at [address] [address] Gmea Oliveira DO [facility] [place] [address] documented as of this encounter Visit Diagnoses Not on filedocumented in this encounter Care Teams Engineering Documentation Specialist Relationship Specialty Start Date End Date Nicolle Spencer MD [facility] [place] [address] PCP - General 01/21/15 12/05/16 documented as of this encounter
--- OUTSIDE RECORDS SUMMARY | 2024-07-12 00:33 | XMS_ITS | Encounter Summary ---
Author Organization [facility] [place] [address] Care Team Providers Care Fuel House Attendant Name Role Phone Nicolle Crandall MD Primary Care Provider Reason for Visit * Reason Comments Dysuria bright red blood in stool Encounter Details Date Type Department Care Team (Late st Contact Info) Description 08/09/2016 10:00 AM EDT Office Visit Internal Medicine at [facility] [address] [place] [address] Jeniffer Schilling PA [address] [facility] [place] [address] Urinary frequency; Blood in stool; Acute UTI (urinary tract infection); Hemorrhoids, unspecified hemorrhoid type Social History Tobacco Use Types Packs/Day [...] Sign Reading Time Taken Comments Blood Pressure 139/88 08/09/2016 9:55 AM EDT Pulse 100 08/09/2016 9:55 AM EDT Temperature 36.9 ??C (98.4 ??F) 08/09/2016 9 :55 AM EDT Respiratory Rate 20 08/09/2016 9:55 AM EDT Oxygen Saturation 98% 08/09/2016 9:5 5 AM EDT Inhaled Oxygen Concentration - - Weight 126 kg (277 lb 12.8 oz) 08/09/20 16 9:55 AM EDT Height 177.8 cm (5' 10) 08/09/2016 9:5 5 AM EDT pt reported Body Mass Index 39.86 08/09/2016 9:55 AM EDT documented in this encounter Patient Instructions * Patient Instructions* Jeniffer Schilling PA - 08/09/2016 10:11 AM EDT Images from the original note were not included. Preparation H ointment Tucks Medicated pads [facility] Hemorrhoids: After Your Visit Your Care Instructions Hemorrhoids are enlarged veins that develop in the anal canal. Bleeding during bowel movements, itching, swelling, and rectal pain are the most common symptoms. They can be uncomfortable at times, but hemorrhoids rarely are a serious problem. You can treat most hemorrhoids with simple changes to your diet and bowel habits. These changes include eating more fiber and not straining to pass stools. Most hemorrhoids do not need surgery or other treatment unless they are very large and painful or bleed a lot. Follow-up care is a sandhu part of your treatment and safety. Be sure to make and go to all appointments, and call your doctor if you are having problems. It???s also a good idea to know your test results and keep a list of the medicines you take. How can you care for yourself at home? ?? Sit in a few inches of warm water (sitz bath) 3 times a day and after bowel movements. The warm water helps with pain and itching. ?? Put ice on your anal area several times a day for 10 minutes at a time. Put a thin cloth betweenthe ice and your skin. Follow this by placing a warm, wet towel on the area for another 10 to 20 minutes. ?? Take pain medicines exactly as directed. ?? If the doctor gave you a prescription medicine for pain, take it as prescribed. ?? If you are not taking a prescription pain medicine, ask your doctor if you can take an ytrv-vtn-dlhsutw medicine. ?? Keep the anal area clean, but be gentle. Use water and a fragrance-free soap, such as Ivory, or use baby wipes or medicated pads, such as Tucks. ?? Wear cotton underwear and loose clothing to decrease moisture in the anal area. ?? Eat more fiber. Include foods such as whole-grain breads and cereals, raw vegetables, raw and dried fruits, and beans. ?? Drink plenty of fluids, enough so that your urine is light yellow or clear like water. If you have kidney, heart, or liver disease and have to limit fluids, talk with your doctor before you increase the amount of fluids you drink. ?? Use a stool softener that contains bran or psyllium. You can save money by buying bran or psyllium (available in bulk at most [employer] stores) and sprinkling it on foods or stirring it into fruit juice. Or you can use a product such as Metamucil or Hydrocil. ?? Practice healthy bowel habits. ?? Go to the bathroom as soon as you have the urge. ?? Avoid straining to pass stools. Relax and give yourself time to let things happen naturally. ?? Do not hold your breath while passing stools. ?? Do not read while sitting on the toilet. Get off the toilet as soon as you have finished. ?? Take your medicines exactly as prescribed. Call your doctor if you think you are having a problem with your medicine. When should you call for help? Call 911 anytime you think you may need emergency care. For example, call if: ?? You pass maroon or very bloody stools. Call your doctor now or seek immediate medical care if: ?? You have increased pain. ?? You have increased bleeding. Watch closely for changes in your health, and be sure to contact your doctor if: ?? Your symptoms have not improved after 3 or 4 days. Where can you learn more? Visit our health information library at [email or web address] You can also view health information on OpTrip, your personal patient account. Log in or sign up today. Enter F228 in the search box to learn more about Hemorrhoids: After Your Visit. ?? [id number] [employer]. Care instructions adapted under license by [facility]. This care instruction is for use with your licensed healthcare professional. If you have questions about a medical condition or this instruction, always ask your healthcare professional. [employer] disclaims any warranty or liability for your use of this information. Content Version: 10.4.435076; Current as of: October 03, 2014 [facility] Hemorrhoids: After Your Visit Your Care Instructions Hemorrhoids are enlarged veins that develop in the anal canal. Bleeding during bowel movements, itching, swelling, and rectal pain are the most common symptoms. They can be uncomfortable at times, but hemorrhoids rarely are a serious problem. You can treat most hemorrhoids with simple changes to your diet and bowel habits. These changes include eating more fiber and not straining to pass stools. Most hemorrhoids do not need surgery or other treatment unless they are very large and painful or bleed a lot. Follow-up care is a sandhu part of your treatment and safety. Be sure to make and go to all appointments, and call your doctor if you are having problems. It???s also a good idea to know your test results and keep a list of the medicines you take. How can you care for yourself at home? ?? Sit in a few inches of warm water (sitz bath) 3 times a day and after bowel movements. The warm water helps with pain and itching. ?? Put ice on your anal area several times a day for 10 minutes at a time. Put a thin cloth betweenthe ice and your skin. Follow this by placing a warm, wet towel on the area for another 10 to 20 minutes. ?? Take pain medicines exactly as directed. ?? If the doctor gave you a prescription medicine for pain, take it as prescribed. ?? If you are not taking a prescription pain medicine, ask your doctor if you can take an psof-sep-lhukvxf medicine. ?? Keep the anal area clean, but be gentle. Use water and a fragrance-free soap, such as Ivory, or use baby wipes or medicated pads, such as Tucks. ?? Wear cotton underwear and loose clothing to decrease moisture in the anal area. ?? Eat more fiber. Include foods such as whole-grain breads and cereals, raw vegetables, raw and dried fruits, and beans. ?? Drink plenty of fluids, enough so that your urine is light yellow or clear like water. If you have kidney, heart, or liver disease and have to limit fluids, talk with your doctor before you increase the amount of fluids you drink. ?? Use a stool softener that contains bran or psyllium. You can save money by buying bran or psyllium (available in bulk at most health food stores) and sprinkling it on foods or stirring it into fruit juice. Or you can use a product such as Metamucil or Hydrocil. ?? Practice healthy bowel habits. ?? Go to the bathroom as soon as you have the urge. ?? Avoid straining to pass stools. Relax and give yourself time to let things happen naturally. ?? Do not hold your breath while passing stools. ?? Do not read while sitting on the toilet. Get off the toilet as soon as you have finished. ?? Take your medicines exactly as prescribed. Call your doctor if you think you are having a problem with your medicine. When should you call for help? Call 911 anytime you think you may need emergency care. For example, call if: ?? You pass maroon or very bloody stools. Call your doctor now or seek immediate medical care if: ?? You have increased pain. ?? You have increased bleeding. Watch closely for changes in your health, and be sure to contact your doctor if: ?? Your symptoms have not improved after 3 or 4 days. Where can you learn more? Visit our health information library at [email or web address] You can also view health information on OpTrip, your personal patient account. Log in or sign up today. Enter F228 in the search box to learn more about Hemorrhoids: After Your Visit. ?? [id number] [employer]. Care instructions adapted under license by [facility]. This care instruction is for use with your licensed healthcare professional. If you have questions about a medical condition or this instruction, always ask your healthcare professional. [employer] disclaims any warranty or liability for your use of this information. Content Version: 10.4.707700; Current as of: October 03, 2014 [facility] Hemorrhoids: After Your Visit Your Care Instructions Hemorrhoids are enlarged veins that develop in the anal canal. Bleeding during bowel movements, itching, swelling, and rectal pain are the most common symptoms. They can be uncomfortable at times, but hemorrhoids rarely are a serious problem. You can treat most hemorrhoids with simple changes to your diet and bowel habits. These changes include eating more fiber and not straining to pass stools. Most hemorrhoids do not need surgery or other treatment unless they are very large and painful or bleed a lot. Follow-up care is a sandhu part of your treatment and safety. Be sure to make and go to all appointments, and call your doctor if you are having problems. It???s also a good idea to know your test results and keep a list of the medicines you take. How can you care for yourself at home? ?? Sit in a few inches of warm water (sitz bath) 3 times a day and after bowel movements. The warm water helps with pain and itching. ?? Put ice on your anal area several times a day for 10 minutes at a time. Put a thin cloth betweenthe ice and your skin. Follow this by placing a warm, wet towel on the area for another 10 to 20 minutes. ?? Take pain medicines exactly as directed. ?? If the doctor gave you a prescription medicine for pain, take it as prescribed. ?? If you are not taking a prescription pain medicine, ask your doctor if you can take an lvfl-wqx-gumyaby medicine. ?? Keep the anal area clean, but be gentle. Use water and a fragrance-free soap, such as Ivory, or use baby wipes or medicated pads, such as Tucks. ?? Wear cotton underwear and loose clothing to decrease moisture in the anal area. ?? Eat more fiber. Include foods such as whole-grain breads and cereals, raw vegetables, raw and dried fruits, and beans. ?? Drink plenty of fluids, enough so that your urine is light yellow or clear like water. If you have kidney, heart, or liver disease and have to limit fluids, talk with your doctor before you increase the amount of fluids you drink. ?? Use a stool softener that contains bran or psyllium. You can save money by buying bran or psyllium (available in bulk at most health food stores) and sprinkling it on foods or stirring it into fruit juice. Or you can use a product such as Metamucil or Hydrocil. ?? Practice healthy bowel habits. ?? Go to the bathroom as soon as you have the urge. ?? Avoid straining to pass stools. Relax and give yourself time to let things happen naturally. ?? Do not hold your breath while passing stools. ?? Do not read while sitting on the toilet. Get off the toilet as soon as you have finished. ?? Take your medicines exactly as prescribed. Call your doctor if you think you are having a problem with your medicine. When should you call for help? Call 911 anytime you think you may need emergency care. For example, call if: ?? You pass maroon or very bloody stools. Call your doctor now or seek immediate medical care if: ?? You have increased pain. ?? You have increased bleeding. Watch closely for changes in your health, and be sure to contact your doctor if: ?? Your symptoms have not improved after 3 or 4 days. Where can you learn more? Visit our [email or web address] information library at [email or web address] You can also view health information on OpTrip, your personal patient account. Log in or sign up today. Enter F228 in the search box to learn more about Hemorrhoids: After Your Visit. ?? [id number] [employer]. Care instructions adapted under license by [facility]. This care instruction is for use with your licensed healthcare professional. If you have questions about a medical condition or this instruction, always ask your healthcare professional. [employer] disclaims any warranty or liability for your use of this information. Content Version: 10.4.410355; Current as of: October 03, 2014 documented in this encounter Progress Notes * Jeniffer Schilling PA - 08/09/2016 10:00 AM EDT PCP: NICOLLE CRANDALL MD Chief Complaint Patient presents with ??? Dysuria bright red blood in stool SUBJECTIVE: Tracie Layton is a 45 y.o. female who presents for: 1) Evaluation of new onset urinary frequency and urgency x 3 days. She denies ever having had a UTI. She reports having pelvic sling surgery in May 2016 and while she has had no complications from that surgery thus far it is the only new thing she can think of. She reports not drinking copious amounts of water during the day and denies being sexually active. She has tried no over the counter prep arations for UTI relief. 2) New onset itching of her anus and blood streaked stool x 2-3 days. She also reports feeling a new bump on her anus that she has never noticed before. She denies having to wear a panty liner tocatch blood. She denies that the toilet bowl is full of blood, but rather that the stool seems to have patches of blood on it. There is some blood on the toilet paper when she wipes. Denies constipation. Pt has tried no over the counter preparations and is not taking any pain medications as she denies pain. Review of Systems Constitutional: Negative for chills, fatigue and fever. HENT: Negative. Respiratory: Negative for cough, chest tightness and shortness of breath. Cardiovascular: Negative for chest pain. Gastrointestinal: Positive for blood in stool (blood is streaked with blood). Negative for abdominal pain, anal bleeding, constipation, diarrhea, nausea, rectal pain and vomiting. Genitourinary: Positive for dysuria, frequency and urgency. Negative for difficulty urinating, enuresis, flank pain, hematuria, pelvic pain, vaginal bleeding and vaginal discharge. Musculoskeletal: Negative for arthralgias, back pain and myalgias. Neurological: Negative for dizziness, weakness and light-headedness. Allergies Allergen Reactions ??? Bactrim [Sulfamethoxazole-Trimethoprim] Anaphylaxis ??? Aleve [Naproxen Sodium] Rash Per neuro team, patient has tolerated ketorolac in the past ??? Keflex [Cephalexin] Other (See Comments) Racing heart ??? Meloxicam Nausea Only Current Outpatient Prescriptions Medication Sig Dispense Refill ??? nitrofurantoin, macrocrystal-monohydrate, [...] 1 Inhaler 3 No current facility-administered medications for this [...] N39.46 ??? Postoperative examination Z09 OBJECTIVE: Vitals: 08/09/16 0955 BP: 139/88 BP Location (NBP): Left arm Patient Position: Sitting BP Cuff Sizes: Large Adult (32-43 cm) Pulse: 100 Resp: 20 Temp: 36.9 ??C (98.4 ??F) TempSrc: Oral SpO2: 98% Weight: (!) 126 kg (277 lb 12.8 oz) Height: 177.8 cm (5' 10) PHYSICAL EXAM: Physical Exam Constitutional: She is oriented to person, place, and time. She appears well- developed and well-nourished. No distress. HENT: Head: Normocephalic and atraumatic. Eyes: Conjunctivae and EOM are normal. No scleral icterus. Neck: Normal range of motion. Cardiovascular: Normal rate and regular rhythm. Pulmonary/Chest: Effort normal. No respiratory distress. Genitourinary: Genitourinary Comments: Pt declines rectal exam (hx of ptsd). Musculoskeletal: Normal range of motion. She exhibits no edema. Neurological: She is alert and oriented to person, place, and time. Skin: Skin is warm and dry. Psychiatric: She has a normal mood and affect. ASSESSMENT & PLAN: Tracie was seen today for dysuria. Diagnoses and all orders for this visit: Urinary frequency - POCT urine dipstick - Urinalysis with reflex Culture Acute UTI (urinary tract infection) - Urinalysis with reflex Culture - nitrofurantoin, macrocrystal-monohydrate, (MACROBID) 100 mg Capsule; Take 1 capsule by mouth 2 times daily for 5 days. Discussed OTC options for UTI such as AZO and warned patient of side effect of orange urine that can stain clothing. Blood in stool Hemorrhoids, unspecified hemorrhoid type Pt education provided to patient. Discussed over the counter treatment options (preparation H and Tucks pads) and discussed their use. Encouraged the pt to increase water consumption and to err on the side of softer stools even thoughshe denies constipation. Pt acknowledges these directions. Pt to follow up as needed. Future Appointments Date Time Provider Department Center 08/10/2016 2:00 PM Gracie Mark MD [facility] 08/22/2016 1:00 PM Nicolle Crandall MD [facility] 08/22/2016 2:20 PM Leah Cruz APRN LE[facility] [place] documented in this encounter Plan of Treatment Upcoming Encounters Date Type Department Care Team (Late st Contact Info) Description 09/05/2024 9:00 AM EDT Office [place] [address] Gema Oliveira, [facility] [place] [address] documented as of this encounter Procedures Procedure Name Priority Date/Time Associated Diagnosis Comments URINALYSIS WITH REFLEX CULTURE Routine 08/09/2016 11:08 AM EDT Urinary frequency Acute UTI (urinary tract infection) URINE CULTURE Routine 08/09/2016 11:08 AM EDT POCT URINE DIPSTICK Routine 08/09/2016 9 :55 AM EDT Urinary frequency documented in this encounter Results * (ABNORMAL) Urine culture (08/09/2016 11:08 AM EDT) Urine Culture 10,000-49,000 cfu/ml mixed mucosal eddie Note: Culture shows multiple bacterial species suggesting mucosal contamination. If symptoms continue to indicate urinary tract infection, submit a new specimen. (A) [facility] Urine specimen obtained by clean catch procedure (specimen) 08/09/2016 11:08 AM EDT 08/09/2016 12:26 PM EDT Narrative Resulting Agency Comment Spec In Lab Ragini Unger MD MICROBIOLOGY - BANNER AL ORDERABLES [facility] [place] [address] * (ABNORMAL) Urinalysis with reflex Culture (08/09/2016 11:08 AM EDT) Glucose, Urine Dipstick Negative Negative mg/dL [facility] Protein, Urine Dipstick Negative Negative mg/dL [facility] Bilirubin, Urine Dipstick Negative Negative mg/dL [facility] Comment: Clinical correlation required for positive Urine Bilirubin results as false positive may occur with some drugs and drug related products. If a false positive is suspected a serum total bilirubin should be considered if clinically indicated. Urobilinogen, Urine Dipstick Normal Normal mg/dL [facility] pH, Urn (dipstick) 5.0 5.0 - 8.0 [facility] Blood, Urine Dipstick Negative Negative mg/dL [facility] Ketone, Urine Dipstick Negative Negative mg/dL [facility] Nitrite, Urine Dipstick Negative Negative [facility] Leukocytes, Urine Dipstick Trace(A) Negative [facility] Appearance, Urine Dipstick Hazy(A) Clear [facility] Specific [place] Urine Automated 1.019 1.002 - 1.030 [facility] Color, Urine Dipstick Yellow Yellow [facility] RBC, Urine 1 0 - 4 /HPF [facility] WBC, Urine 3 0 - 5 /HPF [facility] Bacteria, Urine Occasional(A ) None /HPF [facility] Squamous Epithelial Cells, Urine 14(H) <=4 /HPF [facility] Reflex to Culture Yes [facility] Urine specimen obtained by clean catch procedure (specimen) 08/09/2016 11:08 AM EDT 08/09/2016 12:00 PM EDT Narrative Resulting Agency Comment Spec In Lab Ragini Unger MD URINE ORDERABLES [facility] [place] [address] * (ABNORMAL) POCT urine dipstick (08/09/2016 9:55 AM EDT) POC Sp [place] 1.02 1.002 - 1.030 POC pH, UA 5 5.0 - 8.5 POC Leuk, UA + Negative - Negative POC Nitrite, UA Negative Negative - Negative POC Protein, UA Trace Negative - Negative mg/dL POC Glucose, UA Normal Normal - Normal mg/dL POC Ketone, UA Negative Negative - Negative POC Urobil, UA Normal 0.2 - 1.0 mg/dL POC Bili, UA Negative Negative - Negative POC Blood, UA Trace Negative - Negative niall/uL 08/09/2016 9:55 AM EDT Ragini Unger MD POINT OF CARE TEST O YAMIL documented in this encounter Visit Diagnoses Diagnosis Urinary frequency Blood in stool Acute UTI (urinary tract infection) Urinary tract infection, site not specified Hemorrhoids, unspecified hemorrhoid type documented in this encounter Care Teams Fuel House Attendant Relationship Specialty Start Date End Date Nicolle Crandall MD [facility] [address] [facility] [place] [address] PCP - General 01/21/15 12/05/16 documented as of this encounter
--- OUTSIDE RECORDS SUMMARY | 2024-07-12 00:34 | XMS_ITS | Encounter Summary ---
Author Organization [facility] [place] [address] Care Team Providers Care Him Director Name Role Phone Nicolle Spencer MD Primary Care Provider Reason for Visit * Reason Comments Medication Refill Encounter Details Date Type Department Care Team (Late st Contact Info) Description 01/13/2016 Refill Internal Medicine at [address] [address] Nicolle Spencer MD [facility] [place] [address] Social History Tobacco Use Types Packs/Day Years [...] EDT Office Visit Internal Medicine at [address] [address] Gema Oliveira DO [facility] [address] documented as of this encounter Visit Diagnoses Not on filedocumented in this encounter Care Teams Him Director Relationship Specialty Start Date End Date Nicolle Spencer MD [facility] [place] [address] PCP - General 01/21/15 12/05/16 documented as of this encounter
--- OUTSIDE RECORDS SUMMARY | 2024-07-12 00:34 | XMS_ITS | Encounter Summary ---
Author Organization [facility] Address [facility] [place] [address] Care Team Providers Care Clam Dredger Name Role Phone Nicolle Spencer MD Primary Care Provider Encounter Details Date Type Department Care Team (Latest Contact Info) Description 09/14/2015 2:00 PM EDT - 09/14/2015 11:59 PM EDT Hospital Encounter Non-[place] [address] Sincere Finley MD [facility] [place] [address] Discharge Disposition: Home Social History Tobacco Use Types Packs/Day Years Used Date Smoking Tobacco: Every Day Cigarettes 1 25 Smokeless Tobacco: Never Alcohol Use Standard Drinks/Week Comments Yes 0 (1 standard drink = 0.6 oz pur e alcohol) socially Sex and Gender Information Value Date Recorded Sex Assigned at Not on file Gender Identity Not on file Sexual Orientation Not on file documented as of this encounter Medications at Time of Discharge Medication Sig Dispensed Refills Start Date End Date hydrOXYzine (VISTARIL) 25 mg Capsule Take 1 capsule by mouth 2 times daily as needed (for Mild to moderate headaches - can be taken with Naproxen sodium). 60 capsule 12 09/10/2015 06/03/2016 methylergonovine (METHERGINE) 0.2 mg Tablet TID and 1 tab PRN 120 tablet 3 09/10/2015 11/05/2015 promethazine (PHENERGAN) [address] 1-2 suppositories rectally every 6 hours as needed (Nausea with headache). 15 suppository 5 09/10/2015 02/26/2016 verapamil (CALAN) 80 mg Tablet Take 1 tablet by mouth 3 times daily. 90 tablet 3 09/10/2015 06/03/2016 albuterol (PROVENTIL HFA;VENTOLIN HFA;PROAIR) 90 mcg/actuation HFA Aerosol InhalerIndications:A sthma, mild intermittent, uncomplicated Inhale 2 puffs into the lungs every 4 hours as needed. Use with spacer 1 Inhaler 3 08/24/2015 10/04/2016 omeprazole (PRILOSEC) 40 mg Capsule, Delayed Release(E.C.)Indicat ions:Gastroesophagea l reflux disease without esophagitis Take 1 capsule by mouth daily. 30 capsule 11 08/24/2015 10/20/2015 pramipexole (MIRAPEX) 0.5 mg TabletIndications:re stless leg syndrome Take 1-2 tablets by mouth nightly. Indications: Restless Legs Syndrome 60 tablet 3 08/10/2015 10/19/2015 documented as of this encounter Plan of Treatment Upcoming Encounters Date Type Department Care Team (Late st Contact Info) Description 09/05/2024 9:00 AM EDT Office Visit Internal Medicine at [address] [address] Gema Oliveira, [facility] [place] [phone] documented as of this encounter Procedures Procedure Name Priority Date/Time Associated Diagnosis Comments STRESS ECHO W CONTRAST W LMTD SPEC DOPP COLOR DOPP Routine 09/14/2015 3:46 PM EDT documented in this encounter Results * STRESS ECHO W CONTRAST W LMTD SPEC DOPP COLOR DOPP (09/14/2015 3:46 PM EDT) EF 65 HEARTVTEX SYSTEM Anatomical Region Laterality Modality Other 09/14/2015 Narrative 09/14/2015 4:43 PM EDT Procedure: ?Stress Echocardiogram Patient: ?CATRACHO Palm ?(Age): 1970(44y) Med Rec#: ? [id number] ?Sex: ?F ? Site Loc: ? [facility] ?Ht / Wt: ??177.8(cm)/121.5 Pt. Loc: ?Echo Lab ?BSA: ?2.36 Study Date: ?? 09/14/2015 ?Pt. Type: Tape: ? Referring: Sincere Finley Reading: Oswald Garzon ([id number]) Lump Maker: Noris Mendoza Telephone Switchboard Operator: Evan Guy Diagnosis: *ICD-10-PCS Chest pain, unspecified (R07.9) CPT Codes: *Stress Echo (87487) *Color Doppler (82933) *Doppler LTD (29593) *ECG Interpretation (18930) *Definity (01807AM) Stage ? BP ?HR ? Rest ?112/60 ?113 ? Peak ?180/88 ?171 ? Recovery ?114/60 ?105 ? SUMMARY: 1. CONCLUSION: There is no echocardiographic evidence of ischemia at this level of stress. 2. REST STUDY: Normal left ??ventricular chamber size and systolic function. The visually estimated LVEF is 65%. 3. STRESS: ??On a Marbin protocol the patient exercised for 4 minutes 36 seconds, achieving 6.5 METS of exertion, a peak heart rate of 171 bpm (96% of maximum predicted), and peak blood pressure of 180/88 mmHg, stopping secondary to fatigue and dyspnea. The patient did express feelings of chest discomfort, she expressed 2/10 chest tightness at peak exertion. The baseline ekg demonstrated non-specific ST-T abnormalities in the inferolateral leads. There were no diagnostic ST shifts on ekg with exercise stress, there were [address] depressions in the leads with baseline ST-T abnormalities. All left ??ventricular wall segments augment their systolic function with exercise stress. FINDINGS: Rest Study Quality ?Technically limited Left Ventricle ?The left ventricular chamber size is normal. ?Left ventricular wall thickness is normal. ?There is normal global left ventricular systolic function. ??Ejection fraction is estimated to be 65%. ?There are no left ventricular segmental wall motion abnormalities. ?Doppler assessment is consistent with normal left sided filling pressure. Left Atrium ?The left atrium is normal in size. Right Ventricle ?The right ventricle is normal in size. ?Right ventricular global systolic function is probably normal. ?Pulmonary artery hypertension could not be assessed due to inadequate tricuspid regurgitation jet. Aortic Valve ?The aortic valve is not well visualized. ?There is no evidence of aortic valve stenosis. ?There is no evidence of aortic regurgitation. Mitral Valve ?The mitral valve leaflets appear normal. ?There is no evidence of mitral regurgitation. Tricuspid Valve ?The tricuspid valve is probably normal. ?There is trace tricuspid regurgitation present. Pericardium ?The pericardium appears normal and there is no evidence of a pericardial effusion. Aorta ?The aortic root is normal in size. ?The ascending aorta is normal in size. Stress ?EKG: nondiagnostic ST-T changes. ?EKG: sinus tachycardia. ?The patient's oxygen saturation was 98% ?The patient is taking a calcium channel baudilio. Misc ?Definity contrast (one 1.5 ml vial)was used to enhance endocardial definition. Excess contrast was discarded. ?Stress echo, limited spectral Doppler, color Doppler and ECG interpretation performed. FINDINGS: Peak Stress ?Patient followed a Marbin protocol. ?The patient exercised into stage 2. ?The total exercise duration was:4 MIN 36 SEC ?The study was terminated because of fatigue. ?The study was terminated because of dyspnea. ?The patient expressed feelings of chest discomfort. ?The patient experienced shortness of breath. ?The blood pressure response was normal. ?The patient achieved a level of 6 METS.Exercise capacity was below average. ?There were no arrhythmias. ?The electrocardiographic response was indeterminate for ischemia.Due to the baseline ST-T abnormalities. ?This was a negative echocardiographic stress test. ?The patient's oxygen saturation was 96% Chambers 2D ?Value ?Units (Range) ? IVSd (2D) ? 1.1 ?cm ? LVPWd (2D) ?1.1 ?cm ? IVS:LVPW ratio (2D) 1.1 ?ratio ? LVIDd (2D) ?4.9 ?cm ? LVIDs (2D) ?2.9 ?cm ? LVIDd (2D) index ?2.1 ?cm/m2 ? LVIDs (2D) index ?1.2 ?cm/m2 ? LV FS (2D) ?40 ? % ? EF Teichholz (2D) ?? 71 ? % ? Ao root diameter (2D2.8 ?cm (2.1 - 3.6) ? Ascending Ao ?2.4 ?cm (2 - 3.5) ? Volumes/Mass ?Value ?Units (Range) ? LV mass (2D) ?196 ?g ? LV mass (2D) index ??83 ? g/m2 ? Diastolic/Systolic Function ?Value ?Units (Range) ? MV E-wave Vmax ?1.2 ?m/sec ? MV deceleration [id number] ?msec ? MV A-wave Vmax ?1.2 ?m/sec ? MV E:A ratio ?1 ?ratio ? LV septal e' Vmax ?? 0.1 ?m/sec ? LV lateral e' Vmax ??0.1 ?m/sec ? LV E:e' septal ratio14.3 ? ratio ? LV E:e' lateral rati10.8 ? ratio ? Tricuspid Valve ?Value ?Units (Range) ? TAPSE ? 22 ? cm ? Measurement Trending Name ? 09/14/2015 ? LVIDd (2D) ? 4.85 LVIDs (2D) ? 2.89 Wall Motion: Segment Name ?Rest ?Peak ? Base-Anteroseptal ?? Normal ?Normal ? Base-Anterior ? Normal ?Normal ? Base-Anterolateral ??Normal ?Normal ? Base-Posterolateral Normal ?Normal ? Base-Inferior ? Normal ?Normal ? Base-Inferoseptal ?? Normal ?Normal ? Mid-Anteroseptal ?Normal ?Normal ? Mid-Anterior ?Normal ?Normal ? Mid-Anterolateral ?? Normal ?Normal ? Mid-Posterolateral ??Normal ?Normal ? Mid-Inferior ?Normal ?Normal ? Mid-Inferoseptal ?Normal ?Normal ? Monument-Septal ? Normal ?Normal ? Monument-Anterior ? Normal ?Normal ? Monument-Lateral ?Normal ?Normal ? Monument-Inferior ? Normal ?Normal ? Monument-Tip ?Normal ?Normal ? This report has been electronically signed by: Oswald Garzon MD ? 09/14/2015 16:43:28 Images reviewed and interpretation verified [facility] Cardiac Ultrasound Laboratory Procedure Note Oswald Garzon MD - 09/14/2015 Procedure: Stress Echocardiogram Patient: CATRACHO Palm (Age): 1970(44y) Med Rec#: [id number] Sex: F Site Loc: [facility] Ht / Wt: 177.8(cm)/121.5 Pt. Loc: Echo Lab BSA: 2.36 Study Date: 09/14/2015 Pt. Type: Tape: Referring: Sincere Finley Reading: Oswald Garzon ([id number]) Lump Maker: Noris Mendoza Telephone Switchboard Operator: Evan Guy Diagnosis: *ICD-10-PCS Chest pain, unspecified (R07.9) CPT Codes: *Stress Echo (03125) *Color Doppler (12596) *Doppler LTD (54769) *ECG Interpretation (65138) *Definity (14188OK) Stage BP HR Rest 112/60 113 Peak 180/88 171 Recovery 114/60 105 SUMMARY: 1. CONCLUSION: There is no echocardiographic evidence of ischemia at this level of stress. 2. REST STUDY: Normal left ventricular chamber size and systolic function. The visually estimated LVEF is 65%. 3. STRESS: On a Marbin protocol the patient exercised for 4 minutes 36 seconds, achieving 6.5 METS of exertion, a peak heart rate of 171 bpm (96% of maximum predicted), and peak blood pressure of 180/88 mmHg, stopping secondary to fatigue and dyspnea. The patient did express feelings of chest discomfort, she expressed 2/10 chest tightness at peak exertion. The baseline ekg demonstrated non-specific ST-T abnormalities in the inferolateral leads. There were no diagnostic ST shifts on ekg with exercise stress, there were [address] depressions in the leads with baseline ST-T abnormalities. All left ventricular wall segments augment their systolic function with exercise stress. FINDINGS: Rest Study Quality Technically limited Left Ventricle The left ventricular chamber size is normal. Left ventricular wall thickness is normal. There is normal global left ventricular systolic function. Ejection fraction is estimated to be 65%. There are no left ventricular segmental wall motion abnormalities. Doppler assessment is consistent with normal left sided filling pressure. Left Atrium The left atrium is normal in size. Right Ventricle The right ventricle is normal in size. Right ventricular global systolic function is probably normal. Pulmonary artery hypertension could not be assessed due to inadequate tricuspid regurgitation jet. Aortic Valve The aortic valve is not well visualized. There is no evidence of aortic valve stenosis. There is no evidence of aortic regurgitation. Mitral Valve The mitral valve leaflets appear normal. There is no evidence of mitral regurgitation. Tricuspid Valve The tricuspid valve is probably normal. There is trace tricuspid regurgitation present. Pericardium The pericardium appears normal and there is no evidence of a pericardial effusion. Aorta The aortic root is normal in size. The ascending aorta is normal in size. Stress EKG: nondiagnostic ST-T changes. EKG: sinus tachycardia. The patient's oxygen saturation was 98% The patient is taking a calcium channel baudilio. Misc Definity contrast (one 1.5 ml vial)was used to enhance endocardial definition. Excess contrast was discarded. Stress echo, limited spectral Doppler, color Doppler and ECG interpretation performed. FINDINGS: Peak Stress Patient followed a Marbin protocol. The patient exercised into stage 2. The total exercise duration was:4 MIN 36 SEC The study was terminated because of fatigue. The study was terminated because of dyspnea. The patient expressed feelings of chest discomfort. The patient experienced shortness of breath. The blood pressure response was normal. The patient achieved a level of 6 METS.Exercise capacity was below average. There were no arrhythmias. The electrocardiographic response was indeterminate for ischemia.Due to the baseline ST-T abnormalities. This was a negative echocardiographic stress test. The patient's oxygen saturation was 96% Chambers 2D Value Units (Range) IVSd (2D) 1.1 cm LVPWd (2D) 1.1 cm IVS:LVPW ratio (2D) 1.1 ratio LVIDd (2D) 4.9 cm LVIDs (2D) 2.9 cm LVIDd (2D) index 2.1 cm/m2 LVIDs (2D) index 1.2 cm/m2 LV FS (2D) 40 % EF Teichholz (2D) 71 % Ao root diameter (2D2.8 cm (2.1 - 3.6) Ascending Ao 2.4 cm (2 - 3.5) Volumes/Mass Value Units (Range) LV mass (2D) 196 g LV mass (2D) index 83 g/m2 Diastolic/Systolic Function Value Units (Range) MV E-wave Vmax 1.2 m/sec MV deceleration [id number] msec MV A-wave Vmax 1.2 m/sec MV E:A ratio 1 ratio LV septal e' Vmax 0.1 m/sec LV lateral e' Vmax 0.1 m/sec LV E:e' septal ratio14.3 ratio LV E:e' lateral rati10.8 ratio Tricuspid Valve Value Units (Range) TAPSE 22 cm Measurement Trending Name 09/14/2015 LVIDd (2D) 4.85 LVIDs (2D) 2.89 Wall Motion: Segment Name Rest Peak Base-Anteroseptal Normal Normal Base-Anterior Normal Normal Base-Anterolateral Normal Normal Base-Posterolateral Normal Normal Base-Inferior Normal Normal Base-Inferoseptal Normal Normal Mid-Anteroseptal Normal Normal Mid-Anterior Normal Normal Mid-Anterolateral Normal Normal Mid-Posterolateral Normal Normal Mid-Inferior Normal Normal Mid-Inferoseptal Normal Normal Monument-Septal Normal Normal Monument-Anterior Normal Normal Monument-Lateral Normal Normal Monument-Inferior Normal Normal Monument-Tip Normal Normal This report has been electronically signed by: Oswald Garzon MD 09/14/2015 16:43:28 Images reviewed and interpretation verified [facility] Cardiac Ultrasound Laboratory Sincere Finley MD ECHO ORDERABLES documented in this encounter Visit Diagnoses Not on filedocumented in this encounter Administered Medications Inactive Administered Medications - up to 3 most recent administrations Medication Order MAR Action Action Date Dose Rate Site perflutren lipid microspheres (DEFINITY) injection 0.5 mL 0.5 mL, Intravenous, ONCE PRN, 1 dose, Starting on Mon09/14/15 at 1546, Until Mon09/14/15 at 1547, Other, Routine Given 09/14/2015 3:47 PM EDT 0.5 mLs documented in this encounter Care Teams Clam Dredger Relationship Specialty Start Date End Date Nicolle Spencer MD [facility] [address] [place] [address] PCP - General 01/21/15 12/05/16 documented as of this encounter
--- OUTSIDE RECORDS SUMMARY | 2024-07-12 00:34 | XMS_ITS | Encounter Summary ---
Author Organization [facility] Address [facility] [address] Care Team Providers Care Power Electronics Engineer Name Role Phone Nicolle Spencer MD Primary Care Provider [phone] Encounter Details Date Type Department Care Team (Late st Contact Info) Description 09/02/2015 [place] [address] Gracie Mark MD [facility] [place] [address] Social History Tobacco Use Types Packs/Day Years [...] Telephone Encounter - Gracie Mark MD - 09/04/2015 4:03 PM EDT Excellent Gracie Mark MD [facility] Neurology * Telephone Encounter - Trisha Meraz RN - 09/04/2015 3:48 PM EDT Spoke with patient and relayed the information as noted by Dr Mark. Patient will contact her pharmacy to find out what it would cost there to pickle cutter 9 tablets and if she needs to use [facility] she willdo that. * Telephone Encounter - Trisha Meraz RN - 09/04/2015 1:44 PM EDT Message left for patient informing her of the information as noted. * Telephone Encounter - Gracie Mark MD - 09/04/2015 1:35 PM EDT Images from the original note were not included. Imitrex is not indicated for this patient Please ask her if she is willing to pay out of pocket [employer] Trial of the medication would run her about $50 for 9 tabs to see if this is helpful Average $400-450/ month for the 30 day supply Gracie Mark MD [facility] Neurology * Telephone Encounter - Gracie Mark MD - 09/02/2015 4:31 PM EDT What is the hold up with the Naratriptan??? Can we look into that ... We can do prednisone or consider the use of Methergine Gracie Mark MD [facility] Neurology * Telephone Encounter - Trisha Meraz RN - 09/02/2015 1:49 PM EDT Spoke with patient. After her admission she was headache free for about 3.5 days. Her headache returned on Monday, was severe it came on very quick and went from no headache to severe headache. Patient has been unable to get the naratriptan prescribed at discharge as PA is needed for even the small prescription. She wonders what she might be able to use to treat this headache as she has nothing available at this time. She states that she did smoke some marijuana yesterday and this did help her headache some. * Telephone Encounter - Trisha Meraz RN - 09/02/2015 9:16 AM EDT Patient left message on triage line. She states that her headache returned on Monday08/31/15. She also mentions that she has been unable to obtain the medication as it has not been approved by her insurance. She would like to know what she is to do now. Call placed to patient to discuss this further with voicemail reached. Message left requesting return call. documented in this encounter Plan of Treatment Upcoming Encounters Date Type Department Care Team (Late st Contact Info) Description 09/05/2024 9:00 AM EDT Office Visit Internal Medicine at [address] [address] Gema Oliveira DO [facility] [address] [facility] [address] documented as of this encounter Visit Diagnoses Not on filedocumented in this encounter Care Teams Power Electronics Engineer Relationship Specialty Start Date End Date Nicolle Spencer MD [facility] [place] [address] PCP - General 01/21/15 12/05/16 documented as of this encounter
--- OUTSIDE RECORDS SUMMARY | 2024-07-12 00:34 | XMS_ITS | Encounter Summary ---
Author Organization [facility] Address [facility] [place] [address] Care Team Providers Care Desk Pens Assembler Name Role Phone Nicolle Crandall MD Primary Care Provider Reason for Visit * Reason Comments Establish Care urinary incontinence * Consultation (Routine) - Closed Specialty Diagnoses / Procedures Referred By María Elena mcdaniel Referred To Contact Obstetrics and Gynecology Diagnoses Stress incontinence Nicolle Crandall MD [facility] [place] [address] [facility] [address] [place] [address] Referral ID Status Reason Start Date Expiration Date V isits Requested Visits Authorized [id number] Closed Consult, Test & Treat 08/10/2015 08/09/2016 1 1 Encounter Details Date Type Department Care Team (Late st Contact Info) Description 11/05/2015 3:15 PM EST Office Visit Obstetrics [place] [address] Nicolle Crandall MD [facility] [place] [address] Charbel Pinto MD [facility] [place] [address] Hematuria; Urinary incontinence, unspecified incontinence type Social History Tobacco Use Types Packs/Day Years Used Date Smoking Tobacco: Every Day Cigarettes 0.5 25 Smokeless Tobacco: Never Alcohol Use Standard Drinks/Week Comments Yes 0 (1 standard drink = 0.6 oz pur e alcohol) socially Sex and Gender Information Value Date Recorded Sex Assigned at Not on file Gender Identity Not on file Sexual Orientation Not on file documented as of this encounter Last Filed Vital Signs Vital Sign Reading Time Taken Comments Blood Pressure 126/76 11/05/2015 3:04 PM EST Pulse 96 11/05/2015 3:04 PM EST Temperature - - Respiratory Rate 14 11/05/2015 3:04 PM EST Oxygen Saturation - - Inhaled Oxygen Concentration - - Weight 127 kg (279 lb 14.4 oz) 11/05/2015 3:04 P M EST Height 177.8 cm (5' 10) 11/05/2015 3:04 PM EST Body Mass Index 40.16 11/05/2015 3:04 PM EST documented in this encounter Progress Notes * Charbel Pinto MD - 11/05/2015 3:11 PM EST Female Pelvic Medicine and Reconstructive Surgery @ [facility] Patient Name: Tracie Layton Patient Primary Care Provider: NICOLLE CRANDALL MD Patient Active Problem List Diagnosis Code ??? [...] ??? Vagina bleeding N93.9 ??? Depression F32.9 Chief Complaint: frequency of urination. Incomplete bladder emptying, post void residual. Urinary incontinence History of Present Illness: Ms. Layton is a 44 y.o. old para ( x 1, C/S x 2 afterwards) woman, seen at the kind request of Nicolle Crandall. She presents for evaluation and assessment of the above urinary complaints. She has been symptomatic for the last year, but worsened in the last 6 months. She reports urinating as much as 7-8 times during waking hours. She will get up one time at night to void. She will have dribbling after a void,most times, small amount. She will leak urine on a daily basis, mostly associated with cough, sneeze, or laugh. She wears a bad on a daily basis, menstrual pad, using as many as 3-4. Urinary tract history Patient denies history of recurrent urinary tract infection. Patient denies history of pyelonephritis. Patient denies history of urinary tract abnormality. Patient denies history of nephrolithiasis. Patient reports history of hematuria. Bladder irritants: Fluid intake: 32 oz coffee in am, water throughout the day Caffeine intake: Coffee as above Cigarette smoking (packs, time, if quit when): 1/2 ppd Alcohol: denies Bladder Function Urinary incontinence: yes No. episodes: sefveral times a day Pad use (per day): 3-4 Pad type: mestrual Daytime voids: 7-8 Nocturia: 1 Previous urinary incontinence treatment (Medical/Behavioral/Surgical): denies Storage symptoms Urinary frequency Nocturia Stress urinary incontinence - leakage with exertion, cough/sneeze Urge urinary incontinence - leakage preceded immediately by urge to void Noctural enuresis - NOT IN ASSOCIATION WITH URGE Continuous urinary leakage Other: (e,g. giggle, intercourse-related) Bladder sensation Normal - aware of filling and increased sensation up to desire to void x Increased - feels an early and persistent [...] effort to initiate, maintain OR improve stream x Terminal dribble - prolonged final part of void Feeling of incomplete emptying Pelvic Organ Prolapse (POP) Any personally see or feel a vaginal bulge? no What precipitates prolapse or symptoms of prolapse? na Previous treatment for POP (physical therapy, pessary, surgery)?: na Bowel Function Fecal incontinence (yes/no): denies Number of fecal incontinent episodes (day/week): na Number of bowel movements (day/week): 1/d Defecatory Dysfunction: Symptom Presence Symptom Presence NONE Incomplete Emptying Straining Infrequent stools (<3 week) Splinting Abdominal discomfort Loose stools Defecatory urgency Hard stools x Other Has to help hersel sometimes Sexual Function Active?: Yes. but not for a while Past Medical History Diagnosis Date ??? Chronic back pain ??? Asthma ??? Depression hx suicide attempt ??? Anxiety ??? Restless legs syndrome (RLS) ??? History of cervical cancer 2002 s/p LEEP??? in [place] ??? Hyperlipidemia ??? HTN (hypertension) ??? Agoraphobia ??? ADHD (attention deficit hyperactivity disorder) ??? Alcohol abuse ??? GERD (gastroesophageal reflux disease) ??? Post-traumatic headache 09/29/2014 ??? H/O suicide attempt 10/29/2014 Overdose in 1999 ??? S/P tubal ligation 10/29/2014 ??? Cervical cancer 10/29/2014 Per pt in 2001, in [place], negative paps since? Past Surgical History Procedure Laterality Date ??? Pro upper gi endoscopy, biopsy 01/08/2014 EGD WITH BIOPSY performed by Ilya Whitney MD at [facility] END[facility]COPY ??? Cervix surgery LEEP ??? section ??? Pro colonoscopy, remv lesn, snare N/A 06/11/2015 COLONOSCOPY, POLYPECTOMY, REMOVAL LESION BY SNARE performed by Larry Ryan MD at [facility] ENDOSCOPY Outpatient Prescriptions Marked as Taking for the 11/05/15 encounter (Office Visit) with Charbel Pinto MD Medication Sig Dispense Refill ??? methylergonovine (METHERGINE) 0.2 mg Tablet 2 tabs TID and 1 tab PRN 240 tablet 3 ??? omeprazole (PRILOSEC) 40 mg Capsule, Delayed Release(E.C.) Take 1 capsule by mouth daily. 30 capsule 11 ??? pramipexole (MIRAPEX) 0.5 mg Tablet Take 1-2 tablets by mouth nightly. Indications: Restless Legs Syndrome 180 tablet 3 ??? hydrOXYzine (VISTARIL) 25 mg Capsule Take 1 capsule by mouth 2 times daily as needed (for Mild to moderate headaches - can be taken with Naproxen sodium). 60 capsule 12 ??? promethazine (PHENERGAN) [address] 1-2 suppositories rectally every 6 hours as needed (Nausea with headache). 15 suppository 5 ??? verapamil (CALAN) 80 mg Tablet Take 1 tablet by mouth 3 times daily. 90 tablet 3 ??? albuterol (PROVENTIL HFA;VENTOLIN HFA;PROAIR) 90 mcg/actuation HFA Aerosol Inhaler Inhale 2 puffs into the lungs every 4 hours as needed. Use with spacer 1 Inhaler 3 Current Facility-Administered Medications for the 11/05/15 encounter (Office Visit) with Charbel Pinto MD Medication Dose Route Frequency Provider Last Rate Last Dose ??? [COMPLETED] BUpivacaine (PF) (MARCAINE) 0.25 % (2.5 mg/mL) injection 3 mg 3 mg Subcutaneous Once Gracie Mark MD 3 mg at 11/05/15 1434 ??? [COMPLETED] lidocaine (XYLOCAINE) 10 mg/mL (1 %) injection 3 mg 3 mg Subcutaneous Once Gracie Mark MD 3 mg at 11/05/15 1434 Allergies Allergen Reactions ??? Bactrim [Sulfamethoxazole-Trimethoprim] Anaphylaxis ??? Aleve [Naproxen Sodium] Rash ??? Keflex [Cephalexin] Other (See Comments) Racing heart ??? Meloxicam Nausea Only History Social History ??? Marital Status: Single Spouse Name: N/A Number of Children: N/A ??? Years of Education: N/A Occupational History ??? Not on file. Social History Main Topics ??? Smoking status: Current Every Day Smoker -- 0.50 packs/day for 25 years Types: Cigarettes ??? Smokeless tobacco: Never Used ??? Alcohol Use: Yes Comment: socially ??? Drug Use: No ??? Sexual Activity: Partners: Male Other Topics Concern ??? 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 Brain Tumor Mother ??? Breast Cancer Maternal Aunt 60 ??? Ovarian Cancer Neg Hx ??? Colorectal Cancer Neg Hx ??? Pancreatic Cancer Neg Hx ROS: Review of all other systems negative except for those mentioned above or indicated below: System Symptom Presence Constitutional Weight Loss Weight gain Eyes History of glaucoma ENT/Mouth Mouth sores/Dry mouth Cardiovascular Chest pain Leg swelling Respiratory Wheezing SOB GI Nausea/vomiting Abdominal pain Skin/Breast Breast masses Rash/ulcer Musculoskeletal Muscle weakness Trouble Walking Neurological Dizziness/falling Numbness Psychiatric Depression x Anxiety x Endocrine Abnormal thirst Hot flashes Hematologic Frequent bruising History of blood transfusions Blood clots (DVT / PE) Prior problems w/ anesthesia Outside medical records reviewed: none Data reviewed (images/urodynamic studies): none To further delineate patient's urinary symptoms, a urine dip test and postvoid residual via bladderscanner were obtained. Results for orders placed or performed in visit on 11/05/15 POCT urine dipstick Result Value Ref Range POC Sp [place] 1.030 1.002 - 1.030 POC pH, UA 5 [...] neg Negative - Negative POC Blood, UA 250 Negative - Negative niall/uL Bladder Scanner Result Value Ref Range Bladder Scan (mL) 0 mL OBJECTIVE: BP 126/76 mmHg Pulse 96 Resp 14 Ht 177.8 cm (5' 10) Wt 126.962 kg (279 lb 14.4 oz) BMI 40.16 kg/m2 LMP 10/29/2015 (Approximate) General: normal appearing female, pleasant mood, normal speech Skin: skin of abdomen/pelvis transverse and midline incision Respiratory: clear to auscultation bilaterally Neuro: no paraspinous tenderness; saddle sensory function (S2-4) intact in the pelvic area to touch Cardiac: regular rate and rhythm, no appreciated murmurs Gastrointestinal: no palpable masses/organomegaly, soft/nontender, no appreciable hernia Musculoskeletal: levator ani tone (0-5): 3, levator ani contraction (0-5): 3, absent levator tenderness; lower extremity motor 5/5 bilaterally Pelvic: Cough stress test (empty supine): POSITIVE External Genitalia: Vulva, Alger's and Bartholin glands normal, urethra without tenderness or mass Vagina: With Valsalva, the anterior vaginal wall comes 1 cm above the hymen, the posterior vagina wall comes 1 cm above the hymen, and the cervix/apex comes 5 cm above the hymen Atrophic epithelium (yes/no)?: no Discharge?: none Cervix: normal Bimanual (uterus/adnexa): without masses. Uterus retroverted, mobile POP Q Measurements: Aa -1 Ba -1 C -5 GH 2,3 PB 4,4 TVL 10 Ap -1 Bp -1 D / Impression: Ms. Layton is a .44 y.o. woman with: ?? Signs and symptoms of stress incontinece ?? Post void dribbling ?? Hx of hematuria (listed on problem list), and blood on urine dip Recommendations: I reviewed the anatomy and physiology of urinary incontinence. We discussed options for management including: Continued observation, pelvic floor exercises (supervised or unsupervised), pessary and/or surgery. Based on the patients expressed goals for management I have recommended the following: ?? Patient will consider her options between PT and surgery. We reviewed the procedure of a midurethral sling. We discussed the distinction between mesh for incontinence and mesh for prolapse, and the the former is not what all the attention is about in the popular media. ?? Patient will consider her options and call back when she has reached a decision ?? Discussed that PTSD and anxiety could impact on perception of post operative course, but that with a supportive environment we could help her through it. ?? Review do urine studies shows previous UA with blood on dip then only a few RBC's on micoscopic.Urine to be sent for UA to confirm results. Patient is present with her daughter, who was engaged and participating in the visit. CHARBEL PINTO MD Division of Female Pelvic Medicine/Reconstructive Surgery CC: MD Nicolle AG documented in this encounter Plan of Treatment Upcoming Encounters Date Type Department Care Team (Late st Contact Info) Description 09/05/2024 9:00 AM EDT Office [place] [address] Gema Oliveira, [facility] [place] [address] documented as of this encounter Procedures Procedure Name Priority Date/Time Associated Diagnosis Comments URINALYSIS WITH REFLEX CULTURE Routine 11/05/2015 4:10 PM EST Hematuria POCT URINE DIPSTICK Routine 11/05/2015 3 :55 PM EST Urinary incontinence, unspecified incontinence type BLADDER SCANNER Routine 11/05/2015 Urinary incontinence, unspecified incontinence type documented in this encounter Results * (ABNORMAL) Urinalysis with reflex Culture (11/05/2015 4:10 PM EST) Glucose, Urine Dipstick Negative Negative mg/dL CERNER MILLENNIUM Protein, Urine Dipstick 30(A) Negative mg/dL CERNER MILLENNIUM Bilirubin, Urine Dipstick Negative Negative mg/dL CERNER MILLENNIUM Comment: Clinical correlation required for positive Urine Bilirubin results as false positive may occur with some drugs and drug related products. If a false positive is suspected a serum total bilirubin should be considered if clinically indicated. Urobilinogen, Urine Dipstick Normal Normal mg/dL CERNER MILLENNIUM pH, Urn (dipstick) 5.0 5.0 - 8.0 CERNER MILLENNIUM Blood, Urine Dipstick Small(A) Negative mg/dL CERNER MILLENNIUM Ketone, Urine Dipstick 5(A) Negative mg/dL CERNER MILLENNIUM Nitrite, Urine Dipstick Negative Negative CERNER MILLENNIUM Leukocytes, Urine Dipstick Negative Negative mcL CERNER MILLENNIUM Appearance, Urine Dipstick Hazy(A) Clear CERNER MILLENNIUM Specific [place] Urine Automated 1.030 1.002 - 1.030 CERNER MILLENNIUM Color, Urine Dipstick Yellow Yellow CERNER MILLENNIUM RBC, Urine 2 0 - 4 /HPF CERNER MILLENNIUM WBC, Urine 1 0 - 5 /HPF [facility] Squamous Epithelial Cells, Urine 2 <=4 /HPF [facility] Reflex to Culture No [facility] Urine specimen obtained by clean catch procedure (specimen) 11/05/2015 4:10 PM EST 11/05/2015 4:24 PM EST Narrative Resulting Agency Comment Spec In Lab Charbel Pinto MD URINE ORDERABLES [facility] * POCT urine dipstick (11/05/2015 3:55 PM EST) POC Sp [place] 1.030 1.002 - 1.030 POC pH, UA 5 [...] neg Negative - Negative POC Blood, UA 250 Negative - Negative niall/uL 11/05/2015 3:55 PM EST Charbel Pinto MD POINT OF CARE TEST O RDERABLES * Bladder Scanner (11/05/2015) Bladder Scan (mL) 0 mL Charbel Pinto MD URO PROC W/O RFL ORD ERABLES documented in this encounter Visit Diagnoses Diagnosis Hematuria Hematuria, unspecified Urinary incontinence, unspecified incontinence type documented in this encounter Care Teams Desk Pens Assembler Relationship Specialty Start Date End Date Nicolle Crandall MD [facility] [address] [address] PCP - General 01/21/15 12/05/16 documented as of this encounter
--- OUTSIDE RECORDS SUMMARY | 2024-07-12 00:34 | XMS_ITS | Encounter Summary ---
Author Organization [facility] [place] [address] Care Team Providers Care Tubing Machine Tender Name Role Phone Nicolle Spencer MD Primary Care Provider Reason for Visit * Reason Onset Date Comments Medication Refill 08/23/2015 Encounter Details Date Type Department Care Team (Late st Contact Info) Description 08/23/2015 Refill Internal Medicine at [address] [address] Miriam Miller PA [facility] GENERAL INTERNAL [facility] [place] [address] Asthma, mild intermittent, uncomplicated Social History Tobacco Use Types Packs/Day [...] EDT Office Visit Internal Medicine at [address] [address] Gema Oliveira, [facility] GENERAL [place] [address] documented as of this encounter Visit Diagnoses Diagnosis Asthma, mild intermittent, uncomplicated documented in this encounter Care Teams Tubing Machine Tender Relationship Specialty Start Date End Date Nicolle Spencer MD [facility] [address] [address] PCP - General 01/21/15 12/05/16 documented as of this encounter
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
--- OUTSIDE RECORDS SUMMARY | 2024-07-12 00:34 | XMS_ITS | Encounter Summary ---
Author Organization [facility]ly [facility] [place] [address] Care Team Providers Care Academic Support Coordinator Name Role Phone Nicolle Crandall MD Primary Care Provider Reason for Visit * Reason Comments Cough x 1 month, nausea, d iharrea, sore throght, left ear fullness, recent tx for bronchitisis; OTC meds not helping Other needs note from clin ic stating her ID for SS# Encounter Details Date Type Department Care Team (Late st Contact Info) Description 12/01/2015 11:40 AM EST Office Visit Internal Medicine at [address] [id number] Basilia Williamson APRN [facility] [place] [address] Sore throat Social History Tobacco Use Types Packs/Day Years Used Date Smoking Tobacco: Every Day Cigarettes 0.5 25 Smokeless Tobacco: Never Tobacco Cessation:Ready to Q uit: Yes Comments:chantix helped Alcohol Use Standard Drinks/Week Comments Yes 0 (1 standard drink = 0.6 oz pur e alcohol) socially Sex and Gender Information Value Date Recorded Sex Assigned at Not on file Gender Identity Not on file Sexual Orientation Not on file documented as of this encounter Last Filed Vital Signs Vital Sign Reading Time Taken Comments Blood Pressure 122/80 12/01/2015 11:28 AM EST Pulse 91 12/01/2015 11:28 AM EST Temperature 36.8 ??C (98.3 ??F) 12/01/2015 1 1:28 AM EST Respiratory Rate 20 12/01/2015 11:2 8 AM EST Oxygen Saturation 99% 12/01/2015 11: 28 AM EST Inhaled Oxygen Concentration - - Weight 125.6 kg (276 lb 12.8 oz) 2015 11:28 AM EST Height - - Body Mass Index 39.72 11/16/2015 3:49 PM EST documented in this encounter Progress Notes * Basilia Williamson W, GAM[employer] FACILITIES OPERATOR - 12/01/2015 11:50 AM EST PCP: NICOLLE CRANDALL MD Chief Complaint Patient presents with ??? Cough x 1 month, nausea, diharrea, sore throght, left ear fullness, recent tx for bronchitisis; OTC meds not helping ??? Other needs note from clinic stating her ID for SS# SUBJECTIVE: Tracie aLyton is a 44 y.o. female who presents for cough that has been ongoing for a month. She reports nausea and diarrhea and sore throat that started in last 48 hours. Review of Systems Constitutional: Positive for fever and chills. Negative for fatigue. HENT: Positive for ear pain (left) and sore throat. Negative for congestion, rhinorrhea and sinus pressure. Respiratory: Negative for cough, shortness of breath and wheezing. Cardiovascular: Negative for chest pain and palpitations. Gastrointestinal: Positive for diarrhea. Negative for vomiting and abdominal pain. Musculoskeletal: Negative for myalgias and arthralgias. Skin: Negative for rash. Neurological: Positive for headaches. Negative for dizziness and light-headedness. Hematological: Negative for adenopathy. Allergies Allergen Reactions ??? Bactrim [Sulfamethoxazole-Trimethoprim] Anaphylaxis ??? Aleve [Naproxen Sodium] Rash ??? Keflex [Cephalexin] Other (See Comments) Racing heart ??? Meloxicam Nausea Only Current Outpatient Prescriptions Medication Sig Dispense Refill ??? promethazine-codeine (PHENERGAN WITH CODEINE) 6.25-10 mg/5 mL Syrup Take 5 mLs by mouth 4 timesdaily as needed for Cough. 120 mL 0 ??? ipratropium-albuterol (DUONEB) 0.5 mg-3 mg(2.5 mg base)/3 mL Solution for Nebulization Take 0.5mg by nebulization 4 times daily. 1 vial 4 ??? omeprazole (PRILOSEC) 40 mg Capsule, Delayed Release(E.C.) Take 1 capsule by mouth daily. 90 capsule 3 ??? methylergonovine (METHERGINE) 0.2 mg Tablet 2 tabs TID and 1 tab PRN 240 tablet 3 ??? pramipexole (MIRAPEX) 0.5 mg Tablet [...] spacer 1 Inhaler 3 Current Facility-Administered Medications Medication Dose Route Frequency Provider Last Rate Last Dose ??? ipratropium-albuterol (DUONEB) 0.5 mg-3 mg(2.5 mg base)/3 mL nebulizer solution 3 mL 3 mL Nebulization Q4H Kalyan Haney APRN 3 mL at 11/10/15 1153 Patient Active Problem List Diagnosis Code ??? [...] ??? Vagina bleeding N93.9 ??? Depression F32.9 OBJECTIVE: Filed Vitals: 12/01/15 1128 BP: 122/80 Pulse: 91 Temp: 36.8 ??C (98.3 ??F) TempSrc: Oral Resp: 20 Weight: 125.556 kg (276 lb 12.8 oz) SpO2: 99% PHYSICAL EXAM: Physical Exam Constitutional: She is [...] & PLAN: Tracie was seen today for cough and other. Diagnoses and all orders for this visit: Sore throat Orders: - POCT rapid strep A - strep negative, likely new onset viral illness. Recommended symptomatic treatment. documented in this encounter Plan of Treatment Upcoming Encounters Date Type Department Care Team (Late st Contact Info) Description 09/05/2024 9:00 AM EDT Office Visit Internal Medicine at [address] [id number] Gema Oliveira DO [facility] [place] [address] documented as of this encounter Procedures Procedure Name Priority Date/Time Associated Diagnosis Comments POCT RAPID STREP A Routine 12/01/2015 11 :55 AM EST Sore throat documented in this encounter Results * POCT rapid strep A (12/01/2015 11:55 AM EST) POC Grp A Strep Negative Negative - Negative POC Control Internal Controls Acceptable 12/01/2015 11:5 5 AM EST Nicolle Crandall MD POINT OF CARE TEST O RDERABLES documented in this encounter Visit Diagnoses Diagnosis Sore throat Acute pharyngitis documented in this encounter Care Teams Academic Support Coordinator Relationship Specialty Start Date End Date Nicolle Crandall MD [facility] [place] [place] [address] PCP - General 01/21/15 12/05/16 documented as of this encounter
--- OUTSIDE RECORDS SUMMARY | 2024-07-12 00:34 | XMS_ITS | Encounter Summary ---
Author Organization [facility] Address [facility] [place] [address] Care Team Providers Care Technical Fellow Name Role Phone Nicolle Spencer MD Primary Care Provider [phone] Encounter Details Date Type Department Care Team (Latest Contact Info) Description 01/15/2016 2:00 PM EST - 01/15/2016 11:59 PM [facility] Hospital Encounter XRay at [address] [place] [address] Froilan Crane MD [facility] [place] [address] Pain in left hip Discharge Disposition: Home Social History Tobacco Use [...] Sig Dispensed Refills Start Date End Date pramipexole (MIRAPEX) 0.5 mg Tablet TAKE 1 TO 2 TABLETS BY MOUTH NIGHTLY FOR RESTLESS LEGS SYNDROME 180 tablet 3 01/13/2016 02/22/2016 promethazine-codeine (PHENERGAN WITH CODEINE) 6.25-10 mg/5 mL SyrupIndications:Acu te bronchitis, unspecified organism,Reactive airway disease, mild intermittent, with acute exacerbation Take 5 mLs by mouth 4 times daily as needed for Cough. 120 mL 0 11/16/2015 02/22/2016 ipratropium-albutero l (DUONEB) 0.5 mg-3 mg(2.5 mg base)/3 mL Solution for NebulizationIndicati ons:Acute URI,Asthma, mild intermittent, uncomplicated Take 0.5 mg by nebulization 4 times daily. 1 vial 4 11/10/2015 04/29/2016 omeprazole (PRILOSEC) 40 mg Capsule, Delayed Release(E.C.)Indicat ions:Gastroesophagea l reflux disease without esophagitis Take 1 capsule by mouth daily. 90 capsule 3 11/06/2015 01/09/2017 methylergonovine (METHERGINE) 0.2 mg Tablet 2 tabs TID and 1 tab PRN 240 tablet 3 11/05/2015 02/25/2016 pramipexole (MIRAPEX) 0.5 mg TabletIndications:re stless leg syndrome Take 1-2 tablets by mouth nightly. Indications: Restless Legs Syndrome 180 tablet 3 10/19/2015 04/19/2017 hydrOXYzine (VISTARIL) 25 mg Capsule Take 1 capsule by mouth 2 times daily as needed (for Mild to moderate headaches - can be taken with Naproxen sodium). 60 capsule 12 09/10/2015 06/03/2016 promethazine (PHENERGAN) [address] 1-2 [...] 08/24/2015 10/04/2016 documented as of this encounter Plan of Treatment Upcoming Encounters Date Type Department Care Team (Late st Contact Info) Description 09/05/2024 9:00 AM EDT Office Visit Internal Medicine at [place] [id number] Gema Oliveira DO [facility] [address] [place] [address] documented as of this encounter Procedures Procedure Name Priority Date/Time Associated Diagnosis Comments XR PELVIS AND HIP 2 VIEWS LEFT Routine 01/15/2016 2:10 PM EST Pain in left hip documented in this encounter Results * XR Pelvis AP And Left Hip 2 Views (01/15/2016 2:10 PM EST) Anatomical Region Laterality Modality Pelvis, Hip Left Digital Radiogra phy Impressions 01/15/2016 2:12 PM EST IMPRESSION: No fracture or other acute interval change. 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 Narrative 01/15/2016 2:12 PM EST EXAMINATION: XR PELVIS AP AND LEFT HIP 2 VIEWS CLINICAL HISTORY: sudden left hip pain 2 days ago TECHNIQUE: AP pelvis and 2 views of left hip COMPARISON: 05/11/2015 FINDINGS: No fracture, dislocation, or other interval changes seen. Again noted are mild degenerative changes with subchondral sclerosis and marginal osteophytes. However, the joint spaces remain well preserved. Procedure Note Khai Ren MD - 01/15/2016 EXAMINATION: XR PELVIS AP AND LEFT HIP 2 VIEWS CLINICAL HISTORY: sudden left hip pain 2 days ago TECHNIQUE: AP pelvis and 2 views of left hip COMPARISON: 05/11/2015 FINDINGS: No fracture, dislocation, or other interval changes seen. Again noted aremild degenerative changes with subchondral sclerosis and marginalosteophytes. However, the joint spaces remain well preserved. IMPRESSION IMPRESSION: No fracture or other acute interval change. 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 Froilan Crane MD IMG DX ORDERABLES documented in this encounter Visit Diagnoses Diagnosis Pain in left hip Pain in joint, pelvic region and thigh documented in this encounter Care Teams Technical Fellow Relationship Specialty Start Date End Date Nicolle Spencer MD [facility] [place] [address] PCP - General 01/21/15 12/05/16 documented as of this encounter
--- OUTSIDE RECORDS SUMMARY | 2024-07-12 00:34 | XMS_ITS | Encounter Summary ---
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 Implemented as Appropriate) 08/25/15 2200 Mutuality/Individual Preferences What anxieties, fears or concerns do you have about your health or care? none What questions do you have about your health or care? none What information would help us give you more personalized care? none Goal: Fall Prevention-Safe Patient Handling Outcome: Ongoing (Interventions Implemented as Appropriate) 08/27/15 0832 08/27/15 0833 08/27/15 1005 Musculoskeletal Interventions Activity/Level of Assistance -- -- up ad tash;independently Positioning -- -- -- Muscle Strengthening -- activity/mobility promoted;personal routines for BADL/IADL promoted -- Self-Care Promotion -- -- -- Max Fall Risk History of Falling 0 -- -- Secondary Diagnosis 15 -- -- Ambulatory Aids 0 -- -- Intravenous Therapy/Heparin/Saline Lock 20 -- -- Gait/Transferring 0 -- -- Mental Status 0 -- -- Score 35 -- -- OTHER Max Fall Risk Med -- -- Safety Interventions Safety Precautions/Fall Reduction -- -- -- 08/27/15 1515 08/27/15 1704 Musculoskeletal Interventions Activity/Level of Assistance -- -- Positioning independent -- Muscle Strengthening -- -- Self-Care Promotion -- personal routines for BADL/IADL promoted;personal/BADL objects within reach Max Fall Risk History of Falling -- -- Secondary Diagnosis -- -- Ambulatory Aids -- -- Intravenous Therapy/Heparin/Saline Lock -- -- Gait/Transferring -- -- Mental Status -- -- Score -- -- OTHER Max Fall Risk -- -- Safety Interventions Safety Precautions/Fall Reduction environmental modification;fall reduction program maintained;lighting adjusted for task/safety;low bed;nonskid shoes/slippers when out of bed;room near unit station -- Goal: Infection Control 08/27/15 0832 08/27/15 0833 08/27/15 1005 Coping/Psychosocial Response Interventions Counseling -- calming techniques promoted;emotional support provided;reassurance provided;relaxation techniques promoted;understanding of situation facilitated;verbalization of feelings encouraged -- Safety Interventions Isolation Precautions -- -- standard precautions maintained Infection Prevention bronchial hygiene promoted;environmental surveillance;hydration promoted;nutrition promoted;promote handwashing;rest/sleep promoted -- -- Goal: Discharge Needs Assessment Outcome: Ongoing (Interventions Implemented as Appropriate) 08/26/15 151 Living Environment Transportation Available car;family or friend will provide Discharge Needs Assessment Concerns to be Addressed no discharge needs identified Readmission Within the Last 30 Days no previous admission in last 30 days Current Health Anticipated Changes Related to Illness none Problem: Pain, Acute (Adult, Obstetrics) Goal: Identify Signs and Symptoms and Related Risk Factors Signs and symptoms and related risk factors are identified upon initiation of Human Response Clinical Practice Guideline (CPG) Outcome: Ongoing (Interventions Implemented as Appropriate) 08/26/15 1510 Pain, Acute Related Risk Factors (Acute Pain) anxiety;depression;early disability or decreased function;initially high pain levels;stress Signs and Symptoms (Acute Pain) facial mask of pain/grimace;verbalization of pain descriptors Goal: Acceptable Pain Control/Comfort Level Patient will demonstrate the desired outcomes. Outcome: Ongoing (Interventions Implemented as Appropriate) 08/27/15 1704 Pain, Acute (Adult, Obstetrics) Acceptable Pain Control/Comfort Level making progress toward outcome * Plan of Care - Lucie Villarreal RN - 08/26/2015 3:13 PM EDT Problem: General Plan of Care Goal: Plan of Care Review Outcome: Ongoing (Interventions Implemented as Appropriate) 08/26/15 1510 Plan of Care Review Plan of Care Outcome Status ongoing (interventions implemented as appropriate) Progress no change Coping/Psychosocial Response Interventions Plan of Care Reviewed with patient OUTCOME EVALUATION NOTE: OUTCOME SUMMARY: Pt A/O x4. VSS, afebrile. Pt states that headache still remains 3/10 throughout shift with little effect from DHE. DHE dose increased from 0.5 mg to 1 mg. Pt did experience some dizziness after DHE administration, but did not c/o of any nausea/vomiting, tolerating increased dose well. Urine test negative. No acute events. Will continue to monitor, assess for and address comfort needs, ensure safety, and notify MD of any changes. PLAN MOVING FORWARD: 1. Monitor headache 2. DHE protocol 3. Emotional support INDIVIDUALIZED FALL PREVENTION: Assistance: Independent Supervision: Room near unit station, reliably summons help Surveillance: Hourly rounding/visual checks CPG OUTCOME EVALUATION: Goal: Individualization and Mutuality Outcome: Ongoing (Interventions Implemented as Appropriate) 08/25/15 2200 Mutuality/Individual Preferences What anxieties, fears or concerns do you have about your health or care? none What questions do you have about your health or care? none What information would help us give you more personalized care? none Goal: Fall Prevention-Safe Patient Handling Outcome: Ongoing (Interventions Implemented as Appropriate) 08/26/15 0907 08/26/15 0957 08/26/15 1147 Musculoskeletal Interventions Activity/Level of Assistance -- up ad tash -- Positioning -- -- independent Muscle Strengthening -- -- -- Max Fall Risk History of Falling 0 -- -- Secondary Diagnosis 15 -- -- Ambulatory Aids 0 -- -- Intravenous Therapy/Heparin/Saline Lock 20 -- -- Gait/Transferring 0 -- -- Mental Status 0 -- -- Score 35 -- -- OTHER Max Fall Risk Low -- -- Safety Interventions Safety Precautions/Fall Reduction -- -- nonskid shoes/slippers when out of bed 08/26/15 1510 Musculoskeletal Interventions Activity/Level of Assistance -- Positioning -- Muscle Strengthening activity/mobility promoted;personal routines for BADL/IADL promoted;up in chair encouraged for meals and activities Max Fall Risk History of Falling -- Secondary Diagnosis -- Ambulatory Aids -- Intravenous Therapy/Heparin/Saline Lock -- Gait/Transferring -- Mental Status -- Score -- OTHER Max Fall Risk -- Safety Interventions Safety Precautions/Fall Reduction -- Goal: Infection Control Outcome: Ongoing (Interventions Implemented as Appropriate) 08/26/15 0907 08/26/15 1147 Coping/Psychosocial Response Interventions Counseling emotional support provided;personal strengths integrated;problem solving facilitated;reassurance provided;understanding of situation facilitated;verbalization of feelings encouraged;relaxation techniques promoted -- Safety Interventions Isolation Precautions -- standard precautions maintained Infection Prevention environmental surveillance;hydration promoted;nutrition promoted;promote handwashing;rest/sleep promoted -- Goal: Discharge Needs Assessment Outcome: Ongoing (Interventions Implemented as Appropriate) 08/26/15 1510 Living Environment Transportation Available car;family or friend will provide Discharge Needs Assessment Concerns to be Addressed no discharge needs identified Readmission Within the Last 30 Days no previous admission in last 30 days Current Health Anticipated Changes Related to Illness none Problem: Pain, Acute (Adult, Obstetrics) Goal: Identify Signs and Symptoms and Related Risk Factors Signs and symptoms and related risk factors are identified upon initiation of Human Response Clinical Practice Guideline (CPG) Outcome: Ongoing (Interventions Implemented as Appropriate) 08/26/15 1510 Pain, Acute Related Risk Factors (Acute Pain) anxiety;depression;early disability or decreased function;initially high pain levels;stress Signs and Symptoms (Acute Pain) facial mask of pain/grimace;verbalization of pain descriptors Goal: Acceptable Pain Control/Comfort Level Patient will demonstrate the desired outcomes. Outcome: Ongoing (Interventions Implemented as Appropriate) 08/26/15 1510 Pain, Acute (Adult, Obstetrics) Acceptable Pain Control/Comfort Level making progress toward outcome * Plan of Care - Mayda Rosario RN - 08/25/2015 10:39 PM EDT Problem: Pain, Acute (Adult, Obstetrics) Goal: Acceptable Pain Control/Comfort Level Patient will demonstrate the desired outcomes. Outcome: Ongoing (Interventions Implemented as Appropriate) 08/25/15 2238 Pain, Acute (Adult, Obstetrics) Acceptable Pain Control/Comfort Level making progress toward outcome Pt continues to have headache 03/29. DHE protocol was started. Pt tolerated well. documented in this encounter Plan of Treatment Upcoming Encounters Date Type Department Care Team (Late st Contact Info) Description 09/05/2024 9:00 AM EDT Office Visit Internal Medicine at [address] [address] Gema Oliveira, [facility] [place] [address] documented as of this encounter Procedures Procedure Name Priority Date/Time Associated Diagnosis Comments URINE, QUALITATIVE STAT 08/26/2015 9:16 AM EDT EKG 12-LEAD Routine 08/25/2015 10:08 PM EDT Bilateral occipital neuralgia CMP W/FASTING GLUCOSE Routine 08/25/2015 8:20 PM EDT HEMOGRAM Routine 08/25/2015 8:20 PM EDT DIFFERENTIAL, AUTOMATED Routine 08/25/2015 8:20 PM EDT CBC (WITH DIFF) Routine 08/25/2015 8:20 PM EDT TSH Routine 08/25/2015 8:20 PM EDT T4, FREE Routine 08/25/2015 8:20 PM EDT PHOSPHORUS Routine 08/25/2015 8:20 PM EDT MAGNESIUM Routine 08/25/2015 8:20 PM EDT documented in this encounter Results * urine, qualitative (08/26/2015 9:16 AM EDT) Specific Lavinia Urine Non-automated 1.015 1.002 - 1.030 CERNER MILLENNIUM Human Chorionic Gonadotropin Qualitative, Urine Negative CERNER MILLENNIUM Comment: If Specific Lavinia is less than 1.010, a negative result is obtained, and is still suspected, a repeat on a first morning specimen is recommended. Urine specimen (specimen) 08/26/2015 9:16 AM EDT 08/26/2015 9:36 AM EDT Narrative Resulting Agency Comment Spec In Lab Gracie Mark MD URINE ORDERABLES Performing Organization Address [facility] Co de Phone Number CERNER MILLENNIUM * EKG 12 Lead (08/25/2015 10:08 PM EDT) Ventricular rate 92 BPM MUSE SYSTEM Atrial Rate 92 BPM MUSE SYSTEM P-R Interval 132 ms MUSE SYSTEM QRS Duration 72 ms MUSE SYSTEM Q-T Interval 376 ms MUSE SYSTEM QTC Calculated (Bezet) 464 ms MUSE SYSTEM Calculated P Melrose 61 degrees MUSE SYSTEM Calculated R Melrose 38 degrees MUSE SYSTEM Calculated T Melrose 17 degrees MUSE SYSTEM INTERPRETATION Normal sinus rhythm Nonspecific T wave abnormality Borderline ECG When compared with ECG of 13-AUG-2014 14:36, No significant change was found Confirmed by MD Alfa, Gonsalo ([id number]) on 08/26/2015 7:21:25 AM MUSE SYSTEM 08/25/2015 10:0 8 PM EDT 08/26/2015 7:21 AM EDT Gracie Mark MD ECG ORDERABLES Performing Organization Address [facility] Co de Phone Number MUSE SYSTEM * Differential, Automated (08/25/2015 8:20 PM EDT) Neutrophil % 50.8 % CERNER MILLENNIUM Neutrophil Absolute 4.38 1.50 - 6.30 x10(3)/mcL CERNER MILLENNIUM Lymph % 36.7 % CERNER MILLENNIUM Lymphocytes Abs 3.2 1.0 - 3.6 x10(3)/mcL CERNER MILLENNIUM Monocyte % 8.6 % CERNER MILLENNIUM Monocyte Abs 0.7 0.2 - 1.0 x10(3)/mcL CERNER MILLENNIUM Eos % 3.2 % CERNER MILLENNIUM Eosinophils Abs 0.3 0.0 - 0.5 x10(3)/mcL CERNER MILLENNIUM Basophil % 0.1 % CERNER MILLENNIUM Baso Absolute 0.0 0.0 - 0.2 x10(3)/mcL CERNER MILLENNIUM Immature Gran % 0.60 % CERN ER MILLENNIUM Comment: Immature granulocytes(IG's)percentage and absolute count will include metamyelocytes, myelocytes, and promyelocytes. Blood smears from CBCs yielding IG's will be scanned manually for concordance. If this scan disagrees with the automated IG or if promyelocytes are noted, a manual differential will be performed. Immature Gran Absolute 0.05 0.00 - 0.05 x10(3)/mcL CERNER MILLENNIUM Blood specimen (specimen) 08/25/2015 8:20 PM EDT 08/25/2015 8:50 PM EDT Narrative Resulting Agency Comment Spec In Lab Gracie Mark MD HEMATOLOGY ORDERABLE S Performing Organization Address [facility]/ZIP Co de Phone Number CERASHA STEVENENNIUM * Hemogram (08/25/2015 8:20 PM EDT) White Blood Cell 8.6 4.0 - 10.0 x10(3)/mcL CERNER MILLENNIUM Red Blood Cell 4.50 3.93 - 5.22 x10(6)/mcL CERNER MILLENNIUM Hemoglobin 13.1 11.2 - 15.7 gm/dL CERNER MILLENNIUM Hematocrit 38.8 34.0 - 45.0 % CERNER MILLENNIUM Mean Cell Volume 86.2 79.0 - 94.0 fL CERNER MILLENNIUM Mean Cell Hemoglobin 29.1 26.6 - 32.2 pg CERNER MILLENNIUM Mean Cell Hemoglobin Concentration 33.8 32.0 - 36.5 gm/dL CERNER MILLENNIUM Platelet 193 145 - 370 x10(3)/mcL CERNER MILLENNIUM RDW Standard Deviation 41.7 35.0 - 46.0 fL CERNER MILLENNIUM RDW coefficient of variation 13.2 10.9 - 14.4 % CERNER MILLENNIUM Mean Platelet Volume 10.9 9.0 - 12.0 fL CERNER MILLENNIUM Blood specimen (specimen) 08/25/2015 8:20 PM EDT 08/25/2015 8:50 PM EDT Narrative Resulting Agency Comment Spec In Lab Gracie Mark MD HEMATOLOGY ORDERABLE S CERASHA STEVENENNIUM * Phosphorus (08/25/2015 8:20 PM EDT) Phosphorus 4.2 2.5 - 4.5 mg/dL [facility] Blood specimen (specimen) 08/25/2015 8:20 PM EDT 08/25/2015 8:50 PM EDT Narrative Resulting Agency Comment Spec In Lab Gracie Mark MD CHEMISTRY ORDERABLES Performing Organization Address [facility] Co de Phone Number [facility] * Magnesium (08/25/2015 8:20 PM EDT) Magnesium 0.78 0.69 - 1.07 mmol/L [facility] Blood specimen (specimen) 08/25/2015 8:20 PM EDT 08/25/2015 8:50 PM EDT Narrative Resulting Agency Comment Spec In Lab Gracie Mark MD CHEMISTRY ORDERABLES Performing Organization Address [facility] de Phone Number [facility] * (ABNORMAL) CMP w/fasting Glucose (08/25/2015 8:20 PM EDT) Glucose Fasting 133(H) 65 - 99 mg/dL [facility] Comment: ?Fasting* Glucose Interpretive Criteria Normal ?65-99 mg/dL Impaired Fasting glucose ?100-125 mg/dL Consistent with Diabetes Mellitus ? >or= 126 mg/dL *Fasting is defined as no caloric intake for at least 8 hours In the absence of unequivocal hyperglycemia a plasma glucose value of >or= 126 mg/dL should be repeated on a subsequent day. Diagnosis and Classification of Diabetes Mellitus, Position Statement from the [place] [employer]. ??Diabetes Care, Volume 33, Supplement 1, Nov 2009 Blood Urea Nitrogen 20(H) 8 - 18 mg/dL [facility] Creatinine 1.21(H) 0.70 - 1.20 mg/dL [facility] Comment: Please note that the pediatric reference intervals supplied above were not validated at [facility]. Results from pediatric patients should be interpreted in conjunction to the patient's age, height and muscle mass. Sodium 139 135 - 145 mmol/L CERNER MILLENNIUM Potassium 4.1 3.5 - 5.0 mmol/L CERNER MILLENNIUM Comment: Please note: ??Patients with WBC >100,000 may have falsely elevated Potassium levels. ??For accurate Potassium quantification in these patients send serum separator tube (gold top) for subsequent determinations. ??Contact the Clinical Chemistry Laboratory if there are any questions. Chloride 103 98 - 107 mmol/L CERNER MILLENNIUM Carbon Dioxide 21(L) 22 - 31 mmol/L CERNER MILLENNIUM Anion Gap 15 5 - 15 mmol/L CERNER MILLENNIUM Calcium 9.1 8.5 - 10.5 mg/dL CERNER MILLENNIUM Protein, Total 6.6 6.1 - 8.0 gm/dL CERNER MILLENNIUM Albumin 3.9 3.2 - 5.2 gm/dL CERNER MILLENNIUM Aspartate Aminotransferase Not Perf 0 - 30 unit/L CERNER MILLENNIUM Comment: Unable to quantitate due to sample hemolysis. ??Sample redraw suggested. Called by: karen, Read back by: Shashank Slaughter/RonanST, Date/Time:08/25/15 21:45. Alanine Aminotransferase 16 0 - 30 unit/L CERNER MILLENNIUM Alkaline Phosphatase 50 40 - 104 unit/L CERNER MILLENNIUM Bilirubin, Total 0.2 0.2 - 1.3 mg/dL CERNER MILLENNIUM Bilirubin, Direct 0.1 0.0 - 0.3 mg/dL CERNER MILLENNIUM Est Glomerular Filtration Rate 49(L) >=60 CERNER MILLENNIUM Comment: This estimated GFR (eGFR) value was [...] the following links into your internet browser. [email or web address] [email or web address] Blood specimen (specimen) 08/25/2015 8:20 PM EDT 08/25/2015 8:50 PM EDT Narrative Resulting Agency Comment Spec In Lab Gracie Mark MD CHEMISTRY ORDERABLES Performing Organization Address [facility] de Phone Number ALLI MALDONADO * T4, free (08/25/2015 8:20 PM EDT) Free T4 0.97 0.93 - 1.70 ng/dL ALLI MALDONADO Blood specimen (specimen) 08/25/2015 8:20 PM EDT 08/25/2015 8:50 PM EDT Narrative Resulting Agency Comment Spec In Lab Gracie Mark MD CHEMISTRY ORDERABLES Performing Organization Address [facility] Phone Number ALLI MALDONADO * TSH (08/25/2015 8:20 PM EDT) Thyroid Stimulating Hormone 3.45 0.27 - 4.20 mcIU/mL ALLI MALDONADO Blood specimen (specimen) 08/25/2015 8:20 PM EDT 08/25/2015 8:50 PM EDT Narrative Resulting Agency Comment Spec In Lab Gracie Mark MD CHEMISTRY ORDERABLES Performing Organization Address [facility] Phone Number ALLI MALDONADO documented in this encounter Visit Diagnoses Diagnosis Post-traumatic headache, not intractable, unspecified chronicity pattern Bilateral occipital neuralgia Other syndromes affecting cervical region documented in this encounter Administered Medications Inactive Administered Medications - up to 3 most recent administrations Medication Order MAR Action Action Date Dose Rate Site dihydroergotamine (DHE) injection 0.5 mg 0.5 mg, Intravenous, 3 TIMES DAILY, 21 doses, First dose on Mon08/25/15 at 2115, Last dose on Mon09/01/15 at 1615, Do not exceed 3 mg in 24 hours. Administer during waking hours only., Routine Given 08/25/2015 9:29 PM EDT 0.5 mg dihydroergotamine (DHE) injection 1 mg 1 mg, Intravenous, 3 TIMES DAILY, 19 doses, First dose (after last modification) on Mon08/26/15 at 1000, Last dose on Mon09/01/15 at 1015, Do not exceed 3 mg in 24 hours. Administer during waking hours only., Routine Given 08/28/2015 10:36 AM EDT 1 mg Given 08/27/2015 9:30 PM EDT 1 mg Given 08/27/2015 4:48 PM EDT 1 mg diphenhydrAMINE (BENADRYL) capsule 25 mg 25 mg, Oral, 3 TIMES DAILY, 21 doses, First dose on Mon08/25/15 at 2000, Last dose on Mon09/01/15 at 1500, To be followed in one hour by metoclopramide. To be administered during waking hours only., Routine Given 08/26/2015 8:50 AM EDT 25 mg Given 08/25/2015 8:16 PM EDT 25 mg diphenhydrAMINE (BENADRYL) capsule 25 mg 25 mg, Oral, 3 TIMES DAILY, 19 doses, First dose (after last modification) on Mon08/26/15 at 1500, Last dose on Mon09/01/15 at 1500, To be followed in one hour by metoclopramide. To be administered during waking hours only., Routine Given 08/28/2015 9:14 AM EDT 25 mg Given 08/27/2015 8:00 PM EDT 25 mg Given 08/27/2015 3:12 PM EDT 25 mg esomeprazole (NexIUM) capsule 40 mg 40 mg, Oral, DAILY, First dose on Mon08/25/15 at 1900, Until Discontinued, Routine Given 08/28/2015 9:14 AM EDT 40 mg Given 08/27/2015 9:19 AM EDT 40 mg Given 08/26/2015 8:50 AM EDT 40 mg metoclopramide (REGLAN) injection 10 mg 10 mg, Intravenous, 3 TIMES DAILY, 21 doses, First dose on Mon08/25/15 at 2100, Last dose on Mon09/01/15 at 1600, To be followed in 15 minutes by dihydroergotamine. To be administered during waking hours only., Routine Given 08/25/2015 9:03 PM EDT 10 mg metoclopramide (REGLAN) injection 10 mg 10 mg, Intravenous, 3 TIMES DAILY, 20 doses, First dose (after last modification) on Mon08/26/15 at 0945, Last dose on Mon09/01/15 at 1600, To be followed in 15 minutes by dihydroergotamine. To be administered during waking hours only., Routine Given 08/28/2015 10:17 AM EDT 10 mg Given 08/27/2015 9:08 PM EDT 10 mg Given 08/27/2015 4:31 PM EDT 10 mg pramipexole (MIRAPEX) tablet 1.5 mg 1.5 mg, Oral, NIGHTLY, First dose (after last modification) on Mon08/25/15 at 2100, Until Discontinued, Routine Given 08/27/2015 8:00 PM EDT 1.5 mg Given 08/26/2015 9:11 PM EDT 1.5 mg Given 08/25/2015 9:31 PM EDT 1.25 mg sodium chloride 0.9 % flush 5 mL 5 mL, Intravenous, 2 TIMES DAILY, First dose on Mon08/25/15 at 2100, Until Discontinued, Routine Given 08/28/2015 9:15 AM EDT 5 mLs Given 08/27/2015 9:09 PM EDT 5 mLs Given 08/27/2015 9:19 AM EDT 10 mLs sodium chloride 0.9% infusion 10 mL/hr, Intravenous, CONTINUOUS, Starting on Mon08/25/15 at 2130, Until Mon08/26/15 at 0929 New Bag 08/25/2015 9:29 PM EDT 10 mL/hr 10 mL /hr documented in this encounter Active and Recently Administered Medications Times are shown in EDT. Scheduled Medication Order 08/26/2015 08/27/2015 08/28/2015 dihydroergotamine (DHE) injection 1 mg (CANCELED)(Linked Group 1) 1 mg, Intravenous, 3 TIMES DAILY, 19 doses, First dose (after last modification) on Mon08/26/15 at 1000, Last dose on Mon09/01/15 at 1015, Do not exceed 3 mg in 24 hours. Administer during waking hours only., Routine 1022 (Given - Provider: Lucie Villarreal, VEL)1647 (Given - Provider: Lucie Villarreal, VEL)2215 (Given - Provider: Amber Simmons RN) 1039 (Given - Provider: Lucie Villarreal RN)1648 (Given - Provider: Lucie Villarreal RN)2130 (Given - Provider: Margi Hearn, VEL) 1036 (Given - Provider: Atif Helton, VEL) diphenhydrAMINE (BENADRYL) capsule 25 mg (CANCELED) 25 mg, Oral, 3 TIMES DAILY, 21 doses, First dose on Mon08/25/15 at 2000, Last dose on Mon09/01/15 at 1500, To be followed in one hour by metoclopramide. To be administered during waking hours only., Routine 0850 (Given - Provider: Lucie Villarreal RN) diphenhydrAMINE (BENADRYL) capsule 25 mg (CANCELED)(Linked Group 1) 25 mg, Oral, 3 TIMES DAILY, 19 doses, First dose (after last modification) on Mon08/26/15 at 1500, Last dose on Mon09/01/15 at 1500, To be followed in one hour by metoclopramide. To be administered during waking hours only., Routine 1504 (Given - Provider: Lucie Villarreal RN)2111 (Given - Provider: Amber Simmons RN) 0919 (Given - Provider: Lucie Villarreal RN)1512 (Given - Provider: Lucie Villarreal RN)2000 (Given - Provider: Margi Hearn, VEL) 0914 (Given - Provider: Atif Helton, VEL)1500 (Not Given - Provider: Atif Helton RN - Reason: See comment - Comment: pt D/C'd home) esomeprazole (NexIUM) capsule 40 mg (CANCELED) 40 mg, Oral, DAILY, First dose on Mon08/25/15 at 1900, Until Discontinued, Routine 0850 (Given - Provider: Lucie Villarreal RN) 0919 (Given - Provider: Lucie Villarreal RN) 0914 (Given - Provider: Atif Helton, VEL) metoclopramide (REGLAN) injection 10 mg (CANCELED)(Linked Group 1) 10 mg, Intravenous, 3 TIMES DAILY, 20 doses, First dose (after last modification) on Mon08/26/15 at 0945, Last dose on Mon09/01/15 at 1600, To be followed in 15 minutes by dihydroergotamine. To be administered during waking hours only., Routine 0953 (Given - Provider: Lucie Villarreal, RN)1623 (Given - Provider: Lucie Villarreal, VEL)2201 (Given - Provider: Amebr Simmons, VEL) 1020 (Given - Provider: Lucie Villarreal, RN)163 (Given - Provider: Lucie Villarreal, VEL)210 (Given - Provider: Margi Hearn, VEL) 1017 (Given - Provider: tAif Helton, VEL)1600 (Due) pramipexole (MIRAPEX) tablet 1.5 mg (CANCELED) 1.5 mg, Oral, NIGHTLY, First dose (after last modification) on Mon08/25/15 at 2100, Until Discontinued, Routine 211 (Given - Provider: Amber Simmons, VEL) 2000 (Given - Provider: Margi Hearn, VEL) sodium chloride 0.9 % flush 5 mL (CANCELED) 5 mL, Intravenous, 2 TIMES DAILY, First dose on Mon08/25/15 at 2100, Until Discontinued, Routine 09 (Given - Provider: Lucie Villarreal, VEL)2100 (Not Given - Provider: Amber Simmons RN - Reason: Order parameters not met) 0919 (Given - Provider: Lucie Villarreal RN)210 (Given - Provider: Margi Hearn, VEL) 0915 (Given - Provider: Atif Helton, VEL) Linked Groups Order Group 1: diphenhydrAMINE (BENADRYL) capsule 25 mg (CANCELED)Jump to med 25 mg, Oral, 3 TIMES DAILY, 19 doses, First dose (after last modification) on Mon08/26/15 at 1500, Last dose on Mon09/01/15 at 1500, To be followed in one hour by metoclopramide. To be administered during waking hours only., Routine And metoclopramide (REGLAN) injection 10 mg (CANCELED)Jump to med 10 mg, Intravenous, 3 TIMES DAILY, 20 doses, First dose (after last modification) on Mon08/26/15 at 0945, Last dose on Mon09/01/15 at 1600, To be followed in 15 minutes by dihydroergotamine. To be administered during waking hours only., Routine And dihydroergotamine (DHE) injection 1 mg (CANCELED)Jump to med 1 mg, Intravenous, 3 TIMES DAILY, 19 doses, First dose (after last modification) on Mon08/26/15 at 1000, Last dose on Mon09/01/15 at 1015, Do not exceed 3 mg in 24 hours. 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
--- OUTSIDE RECORDS SUMMARY | 2024-07-12 00:34 | XMS_ITS | Encounter Summary ---
Author Organization [facility] [place] [address] Care Team Providers Care Gold Miner Blasting Name Role Phone Ragini Unger MD Primary Care Provider [phone] Reason for Visit * Reason Onset Date Comments Medication Problem 11/10/2015 Encounter Details Date Type Department Care Team (Late Contact Info) Description 11/10/2015 Telephone Internal Medicine at [address] [address] Oracio Alston Medication Problem Social History Tobacco Use Types [...] encounter Miscellaneous Notes * Telephone Encounter - Oracio Alston - 11/10/2015 12:09 PM EST Maria Esther is calling to verify the patients prescription for duoneb. Please call back. [phone] documented in this encounter Plan of Treatment Upcoming Encounters Date Type Department Care Team (Late Contact Info) Description 09/05/2024 9:00 AM EDT Office Visit Internal Medicine at [address] [address] Gema Oliveira, [facility] GENERAL [place] [address] documented as of this encounter Visit Diagnoses Not on filedocumented in this encounter Care Teams Gold Miner Blasting Relationship Specialty Start Date End Date Ragini Unger MD [facility] GENER[facility] [place] [address] PCP - General General Internal Medicine 12/06/16 9/2 04/05 documented as of this encounter
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
--- OUTSIDE RECORDS SUMMARY | 2024-07-12 00:34 | XMS_ITS | Encounter Summary ---
Author Organization [facility] [place] [address] Care Team Providers Care Network Engineer Name Role Phone Nicolle Spencer MD Primary Care Provider Reason for Visit * Reason Comments Hypertension Encounter Details Date Type Department Care Team (Late st Contact Info) Description 09/11/2015 11:00 AM EDT Office Visit Internal Medicine at [address] [address] Ragini Unger MD [facility] [place] [address] Elevated blood pressure reading without diagnosis of hypertension Social History Tobacco Use Types Packs/Day [...] Sign Reading Time Taken Comments Blood Pressure 123/84 09/11/2015 11:05 AM EDT Pulse 98 09/11/2015 11:05 AM EDT Temperature - - Respiratory Rate - - Oxygen Saturation 98% 09/11/2015 11:05 AM EDT Inhaled Oxygen Concentration - - Weight 121.6 kg (268 lb) 09/11/2015 11:05 AM EDT Height 177.8 cm (5' 10) 09/11/2015 11:05 AM EDT Body Mass Index 38.45 09/11/2015 11:05 AM EDT documented in this encounter Progress Notes * Ragini Unger MD - 09/13/2015 10:28 AM EDT ESTABLISHED PATIENT ACUTE VISIT Chief Complaint Patient presents with ??? Hypertension Pt is a 44 y.o. female who presents for acute visit. Seen yesterday in [facility] clinic with BP noted to be 155/102, has never bee this high before. Check prior 130/91. Had her chronic WATKINS, but no other cardiovascular symptoms. Was on a trial of daily naratriptan for WATKINS prophylaxis which was stopped yesterday. New WATKINS regimen was provided including verapamil prophylaxis and prn hydroxyzine and methergine. No FMH of HTN + tobacco history, doesn't feel she is ready to quit, knows she should. ++ stressors at present, including her chronic WATKINS. ROS: Constitutional - no fevers, chills, + weight gain, + fatigue, + depressed mood HEENT - No difficulty swallowing, hearing, No nasal congestion/postnasal drip Respiratory - No new SOB, BAUMANN, wheeze, + occ cough, sputum production Cardiovascular - No new CP, palpitations, angina, edema, claudication Gastrointestinal - No new abdominal pain, nausea, GERD, constipation, diarrhea, blood in stool - no new difficulty urinating, incontinence or dysuria. Musculoskeletal - No new focal weakness, pain at rest or with movement Skin - no new rashes All other systems negative Current Outpatient Prescriptions on File Prior to Visit Medication Sig Dispense Refill ??? promethazine (PHENERGAN) [address] 1-2 suppositories rectally every 6 hours as needed (Nausea with headache). 15 suppository 5 ??? albuterol (PROVENTIL HFA;VENTOLIN HFA;PROAIR) 90 mcg/actuation [...] Restless Legs Syndrome 60 tablet 3 ??? hydrOXYzine (VISTARIL) 25 mg Capsule Take 1 capsule by mouth 2 times daily as needed (for Mild to moderate headaches - can be taken with Naproxen sodium). 60 capsule 12 ??? methylergonovine (METHERGINE) 0.2 mg Tablet TID and 1 tab PRN 120 tablet 3 ??? verapamil (CALAN) 80 mg Tablet Take 1 tablet by mouth 3 times daily. 90 tablet 3 No current facility-administered medications on [...] ??? Vagina bleeding N93.9 ??? 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 ENT - Mouth moist without lesions. Eyes- EOMI. Not jaundiced. Noninjected. Fundi without AV nicking Neck - No lymphadenopathy. No thyromegaly Lungs - Clear to auscultation. Heart - RRR, S1,S2, no audible murmur, gallop or rub. Abdomen/GI - Soft, nontender, normal active bowel sounds, neg hsm or masses. Extremities - No edema. Pulses intact. Assessment and Plan: Elevated BP without the diagnosis of HTN - suspect related to triptan medication as is wnl today. Pt to be started on verapamil which may also effect her BP and will ac to have this monitored. We discussed the role for tobacco use in HTN and pt admits to an interest in stopping. She is also is noted to have very positive Phq9. A f/up appt with her PCP Dr. Spencer will be arranged. Note to be sent to Dr. Mark in neurology. 20 of 25 minutes spent in direct [id number] counseling and the rest in taking history and planning management. documented in this encounter Plan of Treatment Upcoming Encounters Date Type Department Care Team (Late st Contact Info) Description 09/05/2024 9:00 AM EDT Office Visit Internal Medicine at [address] [address] Gema Oliveira DO [facility] [place] [address] documented as of this encounter Visit Diagnoses Diagnosis Elevated blood pressure reading without diagnosis of hypertension documented in this encounter Care Teams Network Engineer Relationship Specialty Start Date End Date Nicolle Spencer MD [facility] [address] [address] PCP - General 01/21/15 12/05/16 documented as of this encounter
--- OUTSIDE RECORDS SUMMARY | 2024-07-12 00:34 | XMS_ITS | Encounter Summary ---
Author Organization [facility] [place] [address] Care Team Providers Care Technical Producer Name Role Phone Nicolle Spencer MD Primary Care Provider [phone] Reason for Visit * Auth/Cert - Closed Specialty Diagnoses / Procedures Referred By María Elena [email or web address] Referred To Contact Diagnoses Headache 3- DAY HEADACHE - Other tests and procedures as requested n/a Procedures emergency ipi Referral ID Status Reason Start Date Expiration Date Visits Re quested Visits Authorized [id number] Closed 1 1 Encounter Details Date Type Department Care Team (Latest Contact Info) Description 02/24/2016 1:14 PM EDT - 02/24/2016 11:59 PM EDT Hospital En[place] [id number] Mild intermittent asthma without complication Discharge Disposition: Home Social History Tobacco Use [...] 1 tablet by mouth 2 times daily as needed for Migraine. 27 tablet 0 02/25/2016 02/26/2016 nicotine (NICODERM CQ) 14 mg/[address] 1 patch onto the skin daily. 14 patch 0 02/18/2016 03/07/2016 ipratropium-albutero l (DUONEB) 0.5 mg-3 mg(2.5 mg [...] 08/24/2015 10/04/2016 documented as of this encounter Procedure Notes * Negar Catherine MD - 02/24/2016 6:13 PM EDTAssociated Order(s): PULMONARY FUNCTION TEST Lung Volume Measurements Total lung capacity normal Functional residual capacity Mildly reduced [place] volume normal Impression: No evidence of restrictive ventilatory defect. Uncorrected single-breath diffusion capacity for CO was normal. NEGAR CATHERINE MD documented in this encounter Plan of Treatment Upcoming Encounters Date Type Department Care Team (Late st Contact Info) Description 09/05/2024 9:00 AM EDT Office [place] [address] Gema Oliveira, [facility] GENERAL [place] [address] documented as of this encounter Procedures Procedure Name Priority Date/Time Associated Diagnosis Comments COMMON PULMONARY FUNCTION TEST Routine 02/24/2016 6:14 PM EDT documented in this encounter Visit Diagnoses Diagnosis Mild intermittent asthma without complication Unspecified asthma documented in this encounter Care Teams Technical Producer Relationship Specialty Start Date End Date Nicolle Spencer MD [facility] GENERAL INTERNAL [facility] [address] PCP - General 01/21/15 12/05/16 documented as of this encounter
--- OUTSIDE RECORDS SUMMARY | 2024-07-12 00:34 | XMS_ITS | Encounter Summary ---
Author Organization [facility] [place] [address] Care Team Providers Care Manager Of Regulatory Affairs Name Role Phone Nicolle Spencer MD Primary Care Provider [phone] Reason for Visit * Reason Onset Date Comments Medication Refill 10/20/2015 Encounter Details Date Type Department Care Team (Late st Contact Info) Description 10/20/2015 Ref[place] [address] Mahsa Baumann, STEAM PAN SPONGER Gastroesophageal reflux disease without esophagitis Social History [...] EDT Office Visit Internal Medicine at [address] [id number] Gema Oliveira DO [facility] GENER[place] [address] documented as of this encounter Visit Diagnoses Diagnosis Gastroesophageal reflux disease without esophagitis Esophageal reflux documented in this encounter Care Teams Manager Of Regulatory Affairs Relationship Specialty Start Date End Date Nicolle Spencer MD [facility] [place] [place] [address] PCP - General 01/21/15 12/05/16 documented as of this encounter
--- OUTSIDE RECORDS SUMMARY | 2024-07-12 00:34 | XMS_ITS | Encounter Summary ---
Author Organization [facility] [place] [address] Care Team Providers Care Viscose Department Worker Name Role Phone Nicolle Spencer MD Primary Care Provider Reason for Visit * Reason Onset Date Comments Medication Refill 10/19/2015 Pramipexole 0. 5mg Encounter Details Date Type Department Care Team (Late st Contact Info) Description 10/19/2015 Refill Internal Medicine at [address] [address] Leah Melgar CMA Social History Tobacco Use Types Packs/Day Years [...] EDT Office Visit Internal Medicine at [address] [address] Gema Oliveira DO [facility] GENERAL [place] [address] documented as of this encounter Visit Diagnoses Not on filedocumented in this encounter Care Teams Viscose Department Worker Relationship Specialty Start Date End Date Nicolle Spencer MD [facility] [address] GENER[place] [address] [place] [address] PCP - General 01/21/15 12/05/16 documented as of this encounter
--- OUTSIDE RECORDS SUMMARY | 2024-07-12 00:34 | XMS_ITS | Encounter Summary ---
Author Organization [facility] [place] [address] Care Team Providers Care Custodial Supervisor Name Role Phone Nicolle Spencer MD Primary Care Provider [phone] Reason for Visit * Reason Onset Date Comments Medication Refill 11/05/2015 Encounter Details Date Type Department Care Team (Late st Contact Info) Description 11/05/2015 [place] [address] Radha Brown CMA GASTROENTEROLOGY DEPT Gastroesophageal reflux disease without esophagitis Social History [...] EDT Office Visit Internal Medicine at [address] [address] Gema Oliveira [facility] [place] [address] documented as of this encounter Visit Diagnoses Diagnosis Gastroesophageal reflux disease without esophagitis Esophageal reflux documented in this encounter Care Teams Custodial Supervisor Relationship Specialty Start Date End Date Nicolle Spencer MD [facility] GENER[place] [address] [place] [address] PCP - General 01/21/15 12/05/16 documented as of this encounter
--- OUTSIDE RECORDS SUMMARY | 2024-07-12 00:34 | XMS_ITS | Encounter Summary ---
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 Outcome (s) achieved Date Met: 02/25/16 02/23/1635202/25/161625 Discharge Needs Assessment Concerns to be Addressed no discharge needs identified -- Readmission Within the Last 30 Days no previous admission in last 30 days -- Equipment Needed After Discharge none -- Current Health Anticipated Changes Related to Illness -- none Self-Care Equipment Currently Used at Home -- none Living Environment Transportation Available -- car;family or friend will provide Problem: Pain, Acute (Adult, Obstetrics) Goal: Acceptable Pain Control/Comfort Level Patient will demonstrate the desired outcomes. Outcome: Outcome (s) achieved Date Met: 02/25/16 02/25/16 162 Pain, Acute (Adult, Obstetrics) Acceptable Pain Control/Comfort Level achieves outcome * Plan of Care - Fabricio Guy RN - 02/25/2016 3:57 AM EDT Problem: General Plan of Care Goal: Plan of Care Review Outcome: Ongoing (Interventions Implemented as Appropriate) 02/24/16193502/24/161999 Plan of Care Review Plan of Care Outcome Status ongoing (interventions implemented as appropriate) -- Progress no change -- Coping/Psychosocial Response Interventions Plan of Care Reviewed with -- patient OUTCOME EVALUATION NOTE: OUTCOME SUMMARY: Pt denies pain of any sort--Continues independent--No IV access -MD aware--Refusing DHE protocol---Pt to MRI at --Medicated per MD order for MRI--- PLAN MOVING FORWARD: ? D/C to home pending MRI results--- INDIVIDUALIZED FALL PREVENTION INTERVENTIONS: Patient-specific fall risk factors per assessment: [current deficits]: Pt independent--has MD orderto leave floor--- Assistance [level of assistance required for transfers and ambulation]: PRN-- Supervision [direct monitoring required during toileting and ADLs]: RN/CANDE-- Surveillance [continuous indirect monitoring]: Q 1hr roundings--Pt refusing JEFFY--- Patient-specific fall prevention interventions for sensory deficits provided, if applicable: YesYes CPG GOAL OUTCOME EVALUATION: Goal: Individualization and Mutuality Outcome: Ongoing (Interventions Implemented as Appropriate) 02/23/16 0000 Mutuality/Individual Preferences What anxieties, fears or concerns do you have about your health or care? none What questions do you have about your health or care? none What information would help us give you more personalized care? none Goal: Fall Prevention-Safe Patient Handling Outcome: Ongoing (Interventions Implemented as Appropriate) 02/23/16199902/24/16 1100 02/24/161999 Musculoskeletal Interventions Activity/Level of Assistance -- -- independently Positioning -- -- -- Self-Care Promotion independence encouraged while providing assistance -- -- Max Fall Risk History of Falling -- -- 0 Secondary Diagnosis -- -- 15 Ambulatory Aids -- -- 0 Intravenous Therapy/Heparin/Saline Lock -- -- 0 Gait/Transferring -- -- 0 Mental Status -- -- 0 Score -- -- 15 Activity and Safety Assistive Device -- None -- OTHER Max Fall Risk -- -- Low Safety Interventions Safety Precautions/Fall Reduction -- -- -- 02/25/16 0200 Musculoskeletal Interventions Activity/Level of Assistance -- Positioning independent Self-Care Promotion -- Max Fall Risk History of Falling -- Secondary Diagnosis -- Ambulatory Aids -- Intravenous Therapy/Heparin/Saline Lock -- Gait/Transferring -- Mental Status -- Score -- Activity and Safety Assistive Device -- OTHER Max Fall Risk -- Safety Interventions Safety Precautions/Fall Reduction environmental modification;fall reduction program maintained;lighting adjusted for task/safety;low bed;muscle strengthening facilitated;nonskid shoes/slippers when out of bed;room near unit station Goal: Infection Control Outcome: Ongoing (Interventions Implemented as Appropriate) 02/23/16199902/24/16 0802/25/16 0200 Coping/Psychosocial Response Interventions Counseling goal setting facilitated;verbalization of feelings encouraged;understanding of situationfacilitated;relaxation techniques promoted;reassurance provided -- -- Safety Interventions Isolation Precautions -- -- standard precautions maintained Infection Prevention -- environmental surveillance;hydration promoted;nutrition promoted;rest/sleeppromoted -- Goal: Discharge Needs Assessment Outcome: Ongoing (Interventions Implemented as Appropriate) 02/23/16 0353 02/23/16 1300 Discharge Needs Assessment Concerns to be Addressed no discharge needs identified -- Readmission Within the Last 30 Days no previous admission in last 30 days -- Equipment Needed After Discharge none -- Current Health Anticipated Changes Related to Illness none -- Self-Care Equipment Currently Used at Home none -- Living Environment Transportation Available -- family or friend will provide;car Problem: Pain, Acute (Adult, Obstetrics) Goal: Acceptable Pain Control/Comfort Level Patient will demonstrate the desired outcomes. Outcome: Ongoing (Interventions Implemented as Appropriate) 02/24/161935 Pain, Acute (Adult, Obstetrics) Acceptable Pain Control/Comfort Level making progress toward outcome * Plan of Care - Tasneem Tan RN - 02/24/2016 7:40 PM EDT Problem: General Plan of Care Goal: Plan of Care Review Outcome: Ongoing (Interventions Implemented as Appropriate) 02/24/161935 Plan of Care Review Plan of Care Outcome Status ongoing (interventions implemented as appropriate) Progress no change Coping/Psychosocial Response Interventions Plan of Care Reviewed with patient OUTCOME EVALUATION NOTE: OUTCOME SUMMARY: Pt is neurologically intact. Ambulates independently on and off unit. IV removed due to pain, MD Servin ok w/ no access and no DHE protocol since pt reports no headache pain. Pt reports claustrophobia,plan to administer Valium bfore MRI. PLAN MOVING FORWARD: MRI abdomen Probable d/c tomorrow INDIVIDUALIZED FALL PREVENTION INTERVENTIONS: Patient-specific fall risk factors per assessment: [current deficits]: none Assistance [level of assistance required for transfers and ambulation]: Independent Supervision [direct monitoring required during toileting and ADLs]: Independent Surveillance [continuous indirect monitoring]: Purposeful hourly rounding, room near unit station, call jim within reach Patient-specific fall prevention interventions for sensory deficits provided, if applicable: NA CPG GOAL OUTCOME EVALUATION: Goal: Individualization and Mutuality Outcome: Ongoing (Interventions Implemented as Appropriate) Goal: Fall Prevention-Safe Patient Handling Outcome: Ongoing (Interventions Implemented as Appropriate) 02/23/16199902/24/16 0802/24/16 1100 Musculoskeletal Interventions Activity/Level of Assistance -- -- -- Positioning -- -- -- Self-Care Promotion independence encouraged while providing assistance -- -- Max Fall Risk History of Falling -- 0 -- Secondary Diagnosis -- 15 -- Ambulatory Aids -- 0 -- Intravenous Therapy/Heparin/Saline Lock -- 20 -- Gait/Transferring -- 0 -- Mental Status -- 0 -- Score -- 35 -- Activity and Safety Assistive Device -- -- None OTHER Max Fall Risk -- Med -- Safety Interventions Safety Precautions/Fall Reduction -- -- -- 02/24/16 1600 02/24/16 1850 Musculoskeletal Interventions Activity/Level of Assistance -- independently Positioning -- independent Self-Care Promotion -- -- Max Fall Risk History of Falling -- -- Secondary Diagnosis -- -- Ambulatory Aids -- -- Intravenous Therapy/Heparin/Saline Lock -- -- Gait/Transferring -- -- Mental Status -- -- Score -- -- Activity and Safety Assistive Device -- -- OTHER Max Fall Risk -- -- Safety Interventions Safety Precautions/Fall Reduction fall reduction program maintained;environmental modification;lighting adjusted for task/safety;low bed;room near unit station;nonskid shoes/slippers when out of bed;supervised activity -- Goal: Infection Control Outcome: Ongoing (Interventions Implemented as Appropriate) 02/23/16199902/24/16 0800 Coping/Psychosocial Response Interventions Counseling goal setting facilitated;verbalization of feelings encouraged;understanding of situationfacilitated;relaxation techniques promoted;reassurance provided -- Safety Interventions Isolation Precautions -- standard precautions maintained Infection Prevention -- environmental surveillance;hydration promoted;nutrition promoted;rest/sleeppromoted Goal: Discharge Needs Assessment Outcome: Ongoing (Interventions Implemented as Appropriate) 02/23/1635202/23/16 1300 Discharge Needs Assessment Concerns to be Addressed no discharge needs identified -- Readmission Within the Last 30 Days no previous admission in last 30 days -- Equipment Needed After Discharge none -- Current Health Anticipated Changes Related to Illness none -- Self-Care Equipment Currently Used at Home none -- Living Environment Transportation Available -- family or friend will provide;car Problem: Pain, Acute (Adult, Obstetrics) Goal: Acceptable Pain Control/Comfort Level Patient will demonstrate the desired outcomes. Outcome: Ongoing (Interventions Implemented as Appropriate) 02/24/16 1936 Pain, Acute (Adult, Obstetrics) Acceptable Pain Control/Comfort Level making progress toward outcome * Plan of Care - Edna Gutierrez RN - 02/24/2016 5:32 AM EDT Problem: General Plan of Care Goal: Plan of Care Review Outcome: Ongoing (Interventions Implemented as Appropriate) 02/23/1635202/23/161999 Plan of Care Review Plan of Care Outcome Status ongoing (interventions implemented as appropriate) -- Progress improving -- Coping/Psychosocial Response Interventions Plan of Care Reviewed with -- patient OUTCOME EVALUATION NOTE: OUTCOME SUMMARY: Pt neurologically intact. Pt sleeping well throughout night. No reports of headache or pain this shift. PLAN MOVING FORWARD: Continue on DHE protocol INDIVIDUALIZED FALL PREVENTION INTERVENTIONS: Patient-specific fall risk factors per assessment: [current deficits]: Pt is independent with MD order to ambulate off floor Assistance [level of assistance required for transfers and ambulation]: independent Supervision [direct monitoring required during toileting and ADLs]: independent Surveillance [continuous indirect monitoring]: Purposeful hourly rounding, room near nurses station. Patient-specific fall prevention interventions for sensory deficits provided, if applicable: CPG GOAL OUTCOME EVALUATION: Goal: Individualization and Mutuality Outcome: Ongoing (Interventions Implemented as Appropriate) 02/23/16 0000 Mutuality/Individual Preferences What anxieties, fears or concerns do you have about your health or care? none What questions do you have about your health or care? none What information would help us give you more personalized care? none Goal: Fall Prevention-Safe Patient Handling Outcome: Ongoing (Interventions Implemented as Appropriate) 02/23/16199902/24/16 0000 Musculoskeletal Interventions Activity/Level of Assistance -- up ad tash Positioning -- independent Self-Care Promotion independence encouraged while providing assistance -- Max Fall Risk History of Falling 0 -- Secondary Diagnosis 15 -- Ambulatory Aids 0 -- Intravenous Therapy/Heparin/Saline Lock 20 -- Gait/Transferring 0 -- Mental Status 0 -- Score 35 -- Activity and Safety Assistive Device None -- OTHER Max Fall Risk Med -- Safety Interventions Safety Precautions/Fall Reduction -- environmental modification;fall reduction program maintained;lighting adjusted for task/safety;low bed;muscle strengthening facilitated;nonskid shoes/slippers when out of bed;room near unit station Goal: Infection Control Outcome: Ongoing (Interventions Implemented as Appropriate) 02/23/16199902/24/16 0000 Coping/Psychosocial Response Interventions Counseling goal setting facilitated;verbalization of feelings encouraged;understanding of situationfacilitated;relaxation techniques promoted;reassurance provided -- Safety Interventions Isolation Precautions -- standard precautions maintained Infection Prevention bronchial hygiene promoted;environmental surveillance;hydration promoted;nutrition promoted;promote handwashing;rest/sleep promoted -- Goal: Discharge Needs Assessment Outcome: Ongoing (Interventions Implemented as Appropriate) 02/23/16 0353 02/23/16 1300 Discharge Needs Assessment Concerns to be Addressed no discharge needs identified -- Readmission Within the Last 30 Days no previous admission in last 30 days -- Equipment Needed After Discharge none -- Current Health Anticipated Changes Related to Illness none -- Self-Care Equipment Currently Used at Home none -- Living Environment Transportation Available -- family or friend will provide;car Problem: Pain, Acute (Adult, Obstetrics) Goal: Acceptable Pain Control/Comfort Level Patient will demonstrate the desired outcomes. Outcome: Ongoing (Interventions Implemented as Appropriate) 02/24/16 0529 Pain, Acute (Adult, Obstetrics) Acceptable Pain Control/Comfort Level making progress toward outcome * Plan of Care - Tesha Noonan RN - 02/23/2016 6:30 PM EDT Problem: General Plan of Care Goal: Plan of Care Review Outcome: Ongoing (Interventions Implemented as Appropriate) 02/23/16 0353 02/23/16 0950 Plan of Care Review Plan of Care Outcome Status ongoing (interventions implemented as appropriate) -- Progress improving -- Coping/Psychosocial Response Interventions Plan of Care Reviewed with -- patient OUTCOME EVALUATION NOTE: OUTCOME SUMMARY: A/Ox4. Neurologically intact. Up independently in room. Tolerating PO intake well. Denies pain. Echo done today. Pulmonary test done today. Significant other at bedside this afternoon. Resting in bedon IPad between care. Safety maintained. PLAN MOVING FORWARD: DHE protocol. MRI INDIVIDUALIZED FALL PREVENTION INTERVENTIONS: low falls risk. Hourly rounding, call jim in reach Patient-specific fall risk factors per assessment: [current deficits]: headaches Assistance [level of assistance required for transfers and ambulation]: independent Supervision [direct monitoring required during toileting and ADLs]: RN, [employer] eyes on Surveillance [continuous indirect monitoring]: Masimo, hourly rounding, bedside report given for safety checks, call jim in reach Patient-specific fall prevention interventions for sensory deficits provided, if applicable: No CPG GOAL OUTCOME EVALUATION: Goal: Individualization and Mutuality Outcome: Ongoing (Interventions Implemented as Appropriate) 02/23/16 0000 Mutuality/Individual Preferences What anxieties, fears or concerns do you have about your health or care? none What questions do you have about your health or care? none What information would help us give you more personalized care? none Goal: Fall Prevention-Safe Patient Handling Outcome: Ongoing (Interventions Implemented as Appropriate) 02/23/16 0950 02/23/16 1400 Musculoskeletal Interventions Activity/Level of Assistance -- up ad tash;up in room Positioning -- independent Self-Care Promotion independence encouraged while providing assistance -- Max Fall Risk History of Falling 0 -- Secondary Diagnosis 15 -- Ambulatory Aids 0 -- Intravenous Therapy/Heparin/Saline Lock 20 -- Gait/Transferring 0 -- Mental Status 0 -- Score 35 -- Activity and Safety Assistive Device None -- OTHER Max Fall Risk Med -- Safety Interventions Safety Precautions/Fall Reduction environmental modification;fall reduction program maintained;lighting adjusted for task/safety;low bed;nonskid shoes/slippers when out of bed;room near unit station -- Goal: Infection Control Outcome: Ongoing (Interventions Implemented as Appropriate) 02/22/16 2225 02/23/16 0950 Coping/Psychosocial Response Interventions Counseling goal setting facilitated;verbalization of feelings encouraged;understanding of situationfacilitated;reassurance provided;relaxation techniques promoted -- Safety Interventions Isolation Precautions -- standard precautions maintained Infection Prevention -- environmental surveillance;hydration promoted;nutrition promoted;promote handwashing;rest/sleep promoted Goal: Discharge Needs Assessment Outcome: Ongoing (Interventions Implemented as Appropriate) 02/23/16 0353 02/23/16 1300 Discharge Needs Assessment Concerns to be Addressed no discharge needs identified -- Readmission Within the Last 30 Days no previous admission in last 30 days -- Equipment Needed After Discharge none -- Current Health Anticipated Changes Related to Illness none -- Self-Care Equipment Currently Used at Home none -- Living Environment Transportation Available -- family or friend will provide;car Problem: Pain, Acute (Adult, Obstetrics) Goal: Acceptable Pain Control/Comfort Level Patient will demonstrate the desired outcomes. Outcome: Ongoing (Interventions Implemented as Appropriate) 02/23/16 0353 Pain, Acute (Adult, Obstetrics) Acceptable Pain Control/Comfort Level making progress toward outcome * Plan of Care - Edna Gutierrez RN - 02/23/2016 4:11 AM EDT Problem: General Plan of Care Goal: Plan of Care Review Outcome: Ongoing (Interventions Implemented as Appropriate) 02/23/16 0353 Plan of Care Review Plan of Care Outcome Status ongoing (interventions implemented as appropriate) Progress improving Coping/Psychosocial Response Interventions Plan of Care Reviewed with patient OUTCOME EVALUATION NOTE: OUTCOME SUMMARY: Pt neurologically intact. Pt continues on DHE protocol for headaches. Pt denies pain throughout shift stating she does not have a headache at all today. Pt is independent in room. Pt had urine sent to lab. Pt sleeping well throughout night. PLAN MOVING FORWARD: DHE protocol INDIVIDUALIZED FALL PREVENTION INTERVENTIONS: Patient-specific fall risk factors per assessment: [current deficits]: Pt is independent Assistance [level of assistance required for transfers and ambulation]: independent Supervision [direct monitoring required during toileting and ADLs]: independent Surveillance [continuous indirect monitoring]: Purposeful hourly rounding, room near nurses station Patient-specific fall prevention interventions for sensory deficits provided, if applicable: CPG GOAL OUTCOME EVALUATION: Goal: Individualization and Mutuality Outcome: Ongoing (Interventions Implemented as Appropriate) 02/23/16 0000 Mutuality/Individual Preferences What anxieties, fears or concerns do you have about your health or care? none What questions do you have about your health or care? none What information would help us give you more personalized care? none Goal: Fall Prevention-Safe Patient Handling Outcome: Ongoing (Interventions Implemented as Appropriate) 02/22/16222402/23/16352 Musculoskeletal Interventions Activity/Level of Assistance up ad tash -- Positioning independent -- Self-Care Promotion -- independence encouraged while providing assistance Max Fall Risk History of Falling 0 -- Secondary Diagnosis 15 -- Ambulatory Aids 0 -- Intravenous Therapy/Heparin/Saline Lock 20 -- Gait/Transferring 0 -- Mental Status 0 -- Score 35 -- Activity and Safety Assistive Device None -- OTHER Max Fall Risk Med -- Safety Interventions Safety Precautions/Fall Reduction fall reduction program maintained;low bed;nonskid shoes/slippers when out of bed;room near unit station -- Goal: Infection Control Outcome: Ongoing (Interventions Implemented as Appropriate) 02/22/162224 Coping/Psychosocial Response Interventions Counseling goal setting facilitated;verbalization of feelings encouraged;understanding of situationfacilitated;reassurance provided;relaxation techniques promoted Safety Interventions Isolation Precautions standard precautions maintained Infection Prevention bronchial hygiene promoted;environmental surveillance;hydration promoted;nutrition promoted;promote handwashing;rest/sleep promoted Goal: Discharge Needs Assessment Outcome: Ongoing (Interventions Implemented as Appropriate) 02/23/16352 Discharge Needs Assessment Concerns to be Addressed no discharge needs identified Readmission Within the Last 30 Days no previous admission in last 30 days Equipment Needed After Discharge none Current Health Anticipated Changes Related to Illness none Self-Care Equipment Currently Used at Home none Living Environment Transportation Available car Problem: Pain, Acute (Adult, Obstetrics) Goal: Identify Signs and Symptoms and Related Risk Factors Signs and symptoms and related risk factors are identified upon initiation of Human Response Clinical Practice Guideline (CPG) Outcome: Outcome (s) achieved Date Met: 04/05/16 04/05/16 0353 Pain, Acute Related Risk Factors (Acute Pain) depression;early disability or decreased function;stress Goal: Acceptable Pain Control/Comfort Level Patient will demonstrate the desired outcomes. Outcome: Ongoing (Interventions Implemented as Appropriate) 02/23/16 0353 Pain, Acute (Adult, Obstetrics) Acceptable Pain Control/Comfort Level making progress toward outcome documented in this encounter Plan of Treatment Upcoming Encounters Date Type Department Care Team (Late st Contact Info) Description 09/05/2024 9:00 AM EDT Office Visit Internal Medicine at [address] [phone] Gema Oliveira, [facility] [place] [address] documented as of this encounter Procedures Procedure Name Priority Date/Time Associated Diagnosis Comments MRI ABDOMEN WO CONTRAST Routine 02/24/20 10:46 PM EDT BEDSIDE SPIROMETRY W/O BRONCHODIALATOR Routine 02/23/2016 11:02 AM EDT ECHO COMPLETE Routine 02/23/2016 9:35 AM EDT Post-traumatic headache, not intractable, unspecified chronicity pattern URINE HOLD Routine 02/22/2016 9:22 PM EDT URINE, QUALITATIVE Routine 02/22/2016 9:22 PM EDT CMP W/FASTING GLUCOSE Routine 02/22/2016 5:51 PM EDT HEMOGRAM Routine 02/22/2016 5:51 PM EDT DIFFERENTIAL, AUTOMATED Routine 02/22/20 5:51 PM EDT CBC (WITH DIFF) Routine 02/22/2016 5:51 PM EDT PHOSPHORUS Routine 02/22/2016 5:51 PM EDT MAGNESIUM Routine 02/22/2016 5:51 PM EDT EKG 12-LEAD Routine 02/22/2016 5:42 PM EDT Post-traumatic headache, not intractable, unspecified chronicity pattern documented in this encounter Results * MRI Abdomen WO Contrast (02/24/2016 10:46 PM EDT) Anatomical Region Laterality Modality Abdomen Magnetic Resonan ce Impressions 02/25/2016 9:28 AM EDT IMPRESSION: No evidence of retroperitoneal fibrosis. Although the patient voluntarily decided to discontinue the examination before the administration of contrast, it is felt this exam does not need to be repeated with intravenous contrast. This exam is sufficient for evaluation to rule out retroperitoneal fibrosis.. I have personally reviewed the image(s) and the residents interpretation and agree with the findings, Gonsalo Stephenson at 02/25/2016 9:28 AM Narrative 02/25/2016 9:28 AM EDT EXAMINATION: MRI ABDOMEN/PELVIS WO CONTRAST CLINICAL HISTORY: 45 year old woman with chronic headaches on methergine. Please evaluate for retroperitoneal fibrosis TECHNIQUE: MR abdomen and pelvis without intravenous contrast administration. Patient opted to discontinue the study midway through, contrast was therefore not administered. COMPARISON: CT abdomen and pelvis February 08, 2015 FINDINGS: Normal appearance of the retroperitoneal fat. No displacement or evidence of extrinsic compression of the ureters, IVC or aorta. Liver, pancreas, adrenal glands and kidneys are normal. Subcentimeter cyst is seen in the splenic hilum unchanged compared to the 2014 exam. No enlarged lymph nodes. No bowel dilatation or focal bowel wall thickening. No evidence of retroperitoneal stranding to suggest retroperitoneal fibrosis. Normal marrow signal. Procedure Note oGnsalo Stephenson MD - 02/25/2016 EXAMINATION: MRI ABDOMEN/PELVIS WO CONTRAST CLINICAL HISTORY: 45 year old woman with chronic headaches on methergine. Please evaluate for retroperitoneal fibrosis TECHNIQUE: MR abdomen and pelvis without intravenous contrastadministration. Patient opted to discontinue the study midway through, contrast wastherefore not administered. COMPARISON: CT abdomen and pelvis February 08, 2015 FINDINGS: Normal appearance of the retroperitoneal fat. No displacement or evidenceof extrinsic compression of the ureters, IVC or aorta. Liver, pancreas, adrenal glands and kidneys are normal. Subcentimeter cystis seen in the splenic hilum unchanged compared to the 2015 exam. No enlargedlymph nodes. No bowel dilatation or focal bowel wall thickening. No evidenceof retroperitoneal stranding to suggest retroperitoneal fibrosis. Normal marrow signal. IMPRESSION IMPRESSION: No evidence of retroperitoneal fibrosis. Although the patientvoluntarily decided to discontinue the examination before the administration ofcontrast, it is felt this exam does not need to be repeated with intravenous contrast.This exam is sufficient for evaluation to rule out retroperitoneal fibrosis.. I have personally reviewed the image(s) and the residents interpretationand agree with the findings, Gonsalo Pachecorebekah at 02/25/2016 9:28 AM Gracie Mark MD IMG MRI ORDERABLES * Pulmonary Function Testing (02/24/2016 6:14 PM EDT) Narrative Negar Catherine MD - 02/24/2016 6:14 PM EDT Negar Catherine MD ? 02/24/2016 ??6:14 PM Lung Volume Measurements Total lung capacity ?? normal Functional residual capacity ??Mildly reduced [place] volume ??normal Impression: No evidence of restrictive ventilatory defect. Uncorrected single-breath diffusion capacity for CO was normal. NEGAR CATHERINE MD Negar Catherine MD PFT ORDERABLES * Bedside spirometry WITHOUT bronchodialator (02/23/2016 11:02 AM EDT) Narrative Negar Catherine MD - 02/23/2016 11:02 AM EDT Negar Catherine MD ? 02/23/2016 11:02 AM Pulmonary Function Test Interpretation FEV1 is reduced. The FEV1/FVC ratio is reduced. Impression: [x] Mild obstructive ventilatory defect (FEV1 >70% predicted) [x] Reduced FVC suggests possible restriction. ??Can be confirmed by lung volumes. NEGAR CATHERINE MD Gracie Mark MD PFT ORDERABLES * ECHO COMPLETE (02/23/2016 9:35 AM EDT) EF 65 HEARTOYE! SYSTEM Anatomical Region Laterality Modality Other 02/23/2016 Narrative 02/23/2016 9:47 AM EDT Procedure: ?Transthoracic Echocardiogram Patient: ?CATRACHO DAVID E ?(Age): 1970(45y) Med Rec#: ? [id number] ?Sex: ?F ? Site Loc: ? [facility] ?Ht / Wt: ??178(cm)/129(kg) Pt. Loc: ?Adult Floor ? BSA: ?2.43 Study Date: ?? 02/23/2016 ?Pt. Type: Inpatient Tape: ? Referring: MOISES Referring: Gracie Mark Reading: Marbin Queen ([id number]) Coagulator: Muriel Wilkerson [facility] Diagnosis: *ICD-10-PCS Post-traumatic headache, unspecified, not intractable (G44.309) CPT Codes: *Echo Full (11657) *Spectral Doppler (69847) *Color Doppler (76811) Rhythm: ? Sinus BP: ? 149/81 SUMMARY: 1. The left ventricular chamber size is normal. There is normal global left ventricular systolic function. ??Ejection fraction is estimated to be 65% with no left ventricular segmental wall motion abnormalities. 2. Right ventricular chamber size, wall thickness, and systolic function are within normal limits. The estimated pulmonary artery systolic pressure is 33 mmHg. 3. Both atria are normal in size. 4. The cardiac valves appear structurally and functionally normal. 5. The pericardium appears normal and there is no evidence of a pericardial effusion. Findings ? : Left Ventricle: ? The left ventricular chamber size is normal. ?Left ventricular wall thickness is normal. ?No ventricular septal defect is visualized. ?There is normal global left ventricular systolic function. ??Ejection fraction is estimated to be 65%. ?There are no left ventricular segmental wall motion abnormalities. ?Doppler assessment is consistent with elevated left sided filling pressure. Left Atrium: ? The left atrium is normal in size. ?There is no patent foramen ovale visualized. Right Ventricle: ? Right ventricular chamber size, wall thickness, and systolic function are within normal limits. ?The estimated pulmonary artery systolic pressure is 33 mmHg. ?The estimated right atrial pressure is 8 mmHg. Right Atrium: ? The right atrium is normal in size. Aortic Valve: ? The aortic valve is tricuspid. ?There is no evidence of aortic valve thickening. ?Systolic excursion of the aortic valve is normal. ?There is no evidence of aortic valve stenosis. ?There is no evidence of aortic regurgitation. Mitral Valve: ? The mitral valve appears normal in structure and function. ?There is no evidence of mitral stenosis. ?There is no evidence of mitral regurgitation. Tricuspid Valve: ? The tricuspid valve appears normal in structure and function. ?There is trace tricuspid regurgitation present. Pulmonic Valve: ? The pulmonic valve appears normal in structure and function. ?There is no evidence of pulmonic regurgitation. Pericardium: ? The pericardium appears normal and there is no evidence of a pericardial effusion. Aorta: ? The aortic root is normal in size. ?The ascending aorta is normal in size. Pulmonary Artery: ? The main pulmonary artery appears normal. Venous: ? The inferior vena cava appears dilated. ?There is a greater than 50% respiratory change in the inferior vena cava dimension. Misc: ? The cardiac valves appear structurally and functionally normal. ?See remainder of report for additional findings. ?Two-dimensional echo, spectral Doppler and color Doppler performed. Chambers 2D ?Value ?Units (Range) ? IVSd (2D) ? 0.8 ?cm ? LVPWd (2D) ?0.9 ?cm ? LVIDd (2D) ?4.8 ?cm ? LVIDs (2D) ?3.1 ?cm ? LV FS (2D) ?35 ? % ? Ao root diameter (2D2.4 ?cm (2.1 - 3.6) ? Ascending Ao ?2.5 ?cm (2 - 3.5) ? Volumes/Mass ?Value ?Units (Range) ? LA Area 4 CH ?19.4 ? cm2 (<21) ? LA ESV BP (A/L) inde26.8 ? ml/m2 ? RA AREA 4CH ? 12.8 ? cm2 ? LV mass (2D) ?137.6 ?g ? LV mass (2D) index ??56.6 ? g/m2 ? Diastolic/Systolic Function ?Value ?Units (Range) ? MV E-wave Vmax ?1.4 ?m/sec ? MV deceleration isay318.6 ?msec ? MV A-wave Vmax ?1.2 ?m/sec ? MV E:A ratio ?1.1 ?ratio ? LV septal e' Vmax ?? 0.1 ?m/sec ? LV E:e' septal ratio27.6 ? ratio ? Tricuspid Valve ?Value ?Units (Range) ? TR Vmax ? 2.5 ?m/sec ? TR peak gradient ?25 ? mmHg ? RAP ? 8 ?mmHg ? RVSP ?33 ? mmHg ? Measurement Trending Name ? 02/23/2016 ? LVIDd (2D) ? 4.77 LVIDs (2D) ? 3.1 Wall Motion: Segment Name ?Rest ? Base-Anteroseptal ?? Normal ? Base-Anterior ? Normal ? Base-Anterolateral ??Normal ? Base-Posterolateral Normal ? Base-Inferior ? Normal ? Base-Inferoseptal ?? Normal ? Mid-Anteroseptal ?Normal ? Mid-Anterior ?Normal ? Mid-Anterolateral ?? Normal ? Mid-Posterolateral ??Normal ? Mid-Inferior ?Normal ? Mid-Inferoseptal ?Normal ? [place]-Septal ? Normal ? [place]-Anterior ? Normal ? [place]-Lateral ?Normal ? [place]-Inferior ? Normal ? [place]-Tip ?Normal ? This report has been electronically signed by: Marbin Queen M.D. ? 02/23/2016 09:47:02 Images reviewed and interpretation verified [facility] Cardiac Ultrasound [facility] Procedure Note Marbin Queen MD - 02/23/2016 Procedure: Transthoracic Echocardiogram Patient: CATRACHO Palm DOB(Age): 1970(45y) Med Rec#: [id number] Sex: F [place] [facility] [place]t / Wt: 178(cm)/129(kg) Pt. Loc: Adult Floor BSA: 2.43 Study Date: 02/23/2016 Pt. Type: Inpatient Tape: Referring: MOISES Referring: Gracie Mark Reading: Marbin Queen ([id number]) Coagulator: Muriel Wilkerson [facility] Diagnosis: *ICD-10-PCS Post-traumatic headache, unspecified, not intractable (G44.309) CPT Codes: *Echo Full (19096) *Spectral Doppler (80266) *Color Doppler (37874) Rhythm: Sinus BP: 149/81 SUMMARY: 1. The left ventricular chamber size is normal. There is normal global left ventricular systolic function. Ejection fraction is estimated to be 65% with no left ventricular segmental wall motion abnormalities. 2. Right ventricular chamber size, wall thickness, and systolic function are within normal limits. The estimated pulmonary artery systolic pressure is 33 mmHg. 3. Both atria are normal in size. 4. The cardiac valves appear structurally and functionally normal. 5. The pericardium appears normal and there is no evidence of a pericardial effusion. Findings : Left Ventricle: The left ventricular chamber size is normal. Left ventricular wall thickness is normal. No ventricular septal defect is visualized. There is normal global left ventricular systolic function. Ejection fraction is estimated to be 65%. There are no left ventricular segmental wall motion abnormalities. Doppler assessment is consistent with elevated left sided filling pressure. Left Atrium: The left atrium is normal in size. There is no patent foramen ovale visualized. Right Ventricle: Right ventricular chamber size, wall thickness, and systolic function are within normal limits. The estimated pulmonary artery systolic pressure is 33 mmHg. The estimated right atrial pressure is 8 mmHg. Right Atrium: The right atrium is normal in size. Aortic Valve: The aortic valve is tricuspid. There is no evidence of aortic valve thickening. Systolic excursion of the aortic valve is normal. There is no evidence of aortic valve stenosis. There is no evidence of aortic regurgitation. Mitral Valve: The mitral valve appears normal in structure and function. There is no evidence of mitral stenosis. There is no evidence of mitral regurgitation. Tricuspid Valve: The tricuspid valve appears normal in structure and function. There is trace tricuspid regurgitation present. Pulmonic Valve: The pulmonic valve appears normal in structure and function. There is no evidence of pulmonic regurgitation. Pericardium: The pericardium appears normal and there is no evidence of a pericardial effusion. Aorta: The aortic root is normal in size. The ascending aorta is normal in size. Pulmonary Artery: The main pulmonary artery appears normal. Venous: The inferior vena cava appears dilated. There is a greater than 50% respiratory change in the inferior vena cava dimension. Misc: The cardiac valves appear structurally and functionally normal. See remainder of report for additional findings. Two-dimensional echo, spectral Doppler and color Doppler performed. Chambers 2D Value Units (Range) IVSd (2D) 0.8 cm LVPWd (2D) 0.9 cm LVIDd (2D) 4.8 cm LVIDs (2D) 3.1 cm LV FS (2D) 35 % Ao root diameter (2D2.4 cm (2.1 - 3.6) Ascending Ao 2.5 cm (2 - 3.5) Volumes/Mass Value Units (Range) LA Area 4 CH 19.4 cm2 (<21) LA ESV BP (A/L) inde26.8 ml/m2 RA AREA 4CH 12.8 cm2 LV mass (2D) 137.6 g LV mass (2D) index 56.6 g/m2 Diastolic/Systolic Function Value Units (Range) MV E-wave Vmax 1.4 m/sec MV deceleration gwwy643.6 msec MV A-wave Vmax 1.2 m/sec MV E:A ratio 1.1 ratio LV septal e' Vmax 0.1 m/sec LV E:e' septal ratio27.6 ratio Tricuspid Valve Value Units (Range) TR Vmax 2.5 m/sec TR peak gradient 25 mmHg RAP 8 mmHg RVSP 33 mmHg Measurement Trending Name 02/23/2016 LVIDd (2D) 4.77 LVIDs (2D) 3.1 Wall Motion: Segment Name Rest Base-Anteroseptal Normal Base-Anterior Normal Base-Anterolateral Normal Base-Posterolateral Normal Base-Inferior Normal Base-Inferoseptal Normal Mid-Anteroseptal Normal Mid-Anterior Normal Mid-Anterolateral Normal Mid-Posterolateral Normal Mid-Inferior Normal Mid-Inferoseptal Normal [place]-Septal Normal [place]-Anterior Normal [place]-Lateral Normal [place]-Inferior Normal [place]-Tip Normal This report has been electronically signed by: Marbin Queen M.D. 02/23/2016 09:47:02 Images reviewed and interpretation verified [facility]ound [facility] Gracie Mark MD ECHO ORDERABLES * Urine Hold (02/22/2016 9:22 PM EDT) Hold, Urine Sample in lab. [facility] Urine specimen (specimen) Urine / Unknown 02/22/2016 9:22 PM EDT 02/22/2016 9:30 PM EDT Gracie Mark MD URINE ORDERABLES Performing Organization Address [facility]/ZIP Co de Phone Number [facility] [place] [address] * urine, qualitative (02/22/2016 9:22 PM EDT) Specific [place] Urine Non-automated 1.015 1.002 - 1.030 [facility] Human Chorionic Gonadotropin Qualitative, Urine Negative [facility] Comment: If Specific [place] is less than 1.010, a negative result is obtained, and is still suspected, a repeat on a first morning specimen is recommended. Urine specimen (specimen) 02/22/2016 9:22 PM EDT 02/22/2016 9:29 PM EDT Narrative Resulting Agency Comment Spec In Lab Gracie Mark MD URINE ORDERABLES Performing Organization Address [facility] Co de Phone Number [facility] [place] [address] * Differential, Automated (02/22/2016 5:51 PM EDT) Neutrophil % 53.0 % [facility] Neutrophil Absolute 4.70 1.50 - 6.30 x10(3)/[facility] Lymph % 35.4 % [facility] Lymphocytes Abs 3.2 1.0 - 3.6 x10(3)/[facility] Monocyte % 8.2 % [facility] Monocyte Abs 0.7 0.2 - 1.0 x10(3)/[facility] Eos % 2.8 % [facility] Eosinophils Abs 0.2 0.0 - 0.5 x10(3)/[facility] Basophil % 0.2 % [facility] Baso Absolute 0.0 0.0 - 0.2 x10(3)/[facility] Immature Gran % 0.40 % [facility] Comment: Immature granulocytes(IG's)percentage and absolute count will include metamyelocytes, myelocytes, and promyelocytes. Blood smears from CBCs yielding IG's will be scanned manually for concordance. If this scan disagrees with the automated IG or if promyelocytes are noted, a manual differential will be performed. Immature Gran Absolute 0.04 0.00 - 0.05 x10(3)/[facility] Blood specimen (specimen) 02/22/2016 5:51 PM EDT 02/22/2016 5:57 PM EDT Narrative Resulting Agency Comment Spec In Lab Gracie Mark MD HEMATOLOGY ORDERABLE S [facility] [place] [place] [address] * Hemogram (02/22/2016 5:51 PM EDT) White Blood Cell 8.9 4.0 - 10.0 x10(3)/[facility] Red Blood Cell 4.77 3.93 - 5.22 x10(6)/[facility] Hemoglobin 14.0 11.2 - 15.7 gm/dL [facility] Hematocrit 40.2 34.0 - 45.0 % [facility] Mean Cell Volume 84.3 79.0 - 94.0 fL [facility] Mean Cell Hemoglobin 29.4 26.6 - 32.2 pg [facility] Mean Cell Hemoglobin Concentration 34.8 32.0 - 36.5 gm/dL [facility] Platelet 177 145 - 370 x10(3)/[facility] RDW Standard Deviation 40.4 35.0 - 46.0 fL [facility] RDW coefficient of variation 13.3 10.9 - 14.4 % [facility] Mean Platelet Volume 10.3 9.0 - 12.0 fL [facility] Blood specimen (specimen) 02/22/2016 5:51 PM EDT 02/22/2016 5:57 PM EDT Narrative Resulting Agency Comment Spec In Lab Gracie Mark MD HEMATOLOGY ORDERABLE S Performing Organization Address [facility] Co de Phone Number [facility] [place] [address] * Magnesium (02/22/2016 5:51 PM EDT) Magnesium 0.79 0.69 - 1.07 mmol/L [facility] Blood specimen (specimen) 02/22/2016 5:51 PM EDT 02/22/2016 5:57 PM EDT Narrative Resulting Agency Comment Spec In Lab Gracie Mark MD CHEMISTRY ORDERABLES Performing Organization Address [facility] Co de Phone Number [facility] [place] [address] * Phosphorus (02/22/2016 5:51 PM EDT) Phosphorus 3.5 2.5 - 4.5 mg/dL [facility] Blood specimen (specimen) 02/22/2016 5:51 PM EDT 02/22/2016 5:57 PM EDT Narrative Resulting Agency Comment Spec In Lab Gracie Mark MD CHEMISTRY ORDERABLES Performing Organization Address [facility] Co de Phone Number [facility] [place] [address] * (ABNORMAL) CMP w/fasting Glucose (02/22/2016 5:51 PM EDT) Glucose Fasting 116(H) 65 - 99 mg/dL [facility] Comment: ?Fasting* Glucose Interpretive Criteria Normal ?65-99 [...] of Diabetes Mellitus, Position Statement from the [place] [employer]. ??Diabetes Care, Volume 33, Supplement 1, Nov 2009 Blood Urea Nitrogen 14 8 - 18 mg/dL [facility] Creatinine 1.16 0.70 - 1.20 mg/dL [facility] Comment: Please note that the pediatric reference intervals supplied above were not validated at [facility] Results from pediatric patients should be interpreted in conjunction to the patient's age, height and muscle mass. Sodium 142 135 - 145 mmol/L [facility] Potassium 3.9 3.5 - 5.0 mmol/L [facility] Comment: Please note: ??Patients with WBC >100,000 may have falsely elevated Potassium levels. ??For accurate Potassium quantification in these patients send serum separator tube (gold top) for subsequent determinations. ??Contact the Clinical Chemistry Laboratory if there are any questions. Chloride 106 98 - 107 mmol/L [facility] Carbon Dioxide 22 22 - 31 mmol/L [facility] Anion Gap 14 5 - 15 mmol/L [facility] Calcium 8.9 8.5 - 10.5 mg/dL [facility] Protein, Total 7.0 6.1 - 8.0 gm/dL [facility] Albumin 4.1 3.2 - 5.2 gm/dL [facility] Aspartate Aminotransferase 16 0 - 30 unit/L [facility] Alanine Aminotransferase 20 0 - 30 unit/L [facility] Alkaline Phosphatase 60 40 - 104 unit/L [facility] Bilirubin, Total 0.2 0.2 - 1.3 mg/dL [facility] Bilirubin, Direct 0.1 0.0 - 0.3 mg/dL [facility] Est Glomerular Filtration Rate 51(L) >=60 [facility] Comment: This estimated GFR (eGFR) value [...] the following links into your internet browser. [email or web address] Blood specimen (specimen) 02/22/2016 5:51 PM EDT 02/22/2016 5:57 PM EDT Narrative Resulting Agency Comment Spec In Lab Gracie Mark MD CHEMISTRY ORDERABLES Performing Organization Address [facility] Co de Phone Number [facility] [place] [address] * EKG 12 Lead (02/22/2016 5:42 PM EDT) Ventricular rate 97 BPM MUSE SYSTEM Atrial Rate 97 BPM MUSE SYSTEM P-R Interval 132 ms MUSE SYSTEM QRS Duration 72 ms MUSE SYSTEM Q-T Interval 366 ms MUSE SYSTEM QTC Calculated (Bezet) 464 ms MUSE SYSTEM Calculated P [place] 61 degrees MUSE SYSTEM Calculated R [place] 33 degrees MUSE SYSTEM Calculated T [place] 10 degrees MUSE SYSTEM INTERPRETATION Normal sinus rhythm Normal ECG When compared with ECG of 13-SEP-2015 12:21, No significant change was found Confirmed by MD Kadie, Nilton ([id number]) on 02/23/2016 3:06:11 PM MUSE SYSTEM 02/22/2016 5:42 PM EDT 02/23/2016 3:06 PM EDT Gracie Mark MD ECG ORDERABLES Performing Organization Address [facility] Co de Phone Number MUSE SYSTEM documented in this encounter Visit Diagnoses Diagnosis Post-traumatic headache, not intractable, unspecified chronicity pattern Headache Morbid obesity with BMI of 40.0-44.9, adult Morbid obesity documented in this encounter Admitting Diagnoses Diagnosis Headache documented in this encounter Administered Medications Inactive Administered Medications - up to 3 most recent administrations Medication Order MAR Action Action Date Dose Rate Site diaZEPam (VALIUM) tablet 10 mg 10 mg, Oral, ONCE PRN, 1 dose, Starting on Mon02/24/16 at 1646, Until Mon02/24/16 at 2048, Anxiety, 30 minutes before MRI, Routine Given 02/24/2016 8:48 PM EDT 10 mg dihydroergotamine (DHE) injection 0.5 mg 0.5 mg, Intravenous, 3 TIMES DAILY, 21 doses, First dose on Mon02/22/16 at 1715, Last dose on Mon02/29/16 at 1015, Do not exceed 3 mg in 24 hours. Administer during waking hours only., Routine Given 02/24/2016 10:14 AM EDT 0.5 mg Given 02/23/2016 10:22 PM EDT 0.5 mg Given 02/23/2016 4:31 PM EDT 0.5 mg diphenhydrAMINE (BENADRYL) capsule 25 mg 25 mg, Oral, 3 TIMES DAILY, 21 doses, First dose on Mon02/22/16 at 1600, Last dose on Mon02/29/16 at 0900, To be followed in one hour by metoclopramide. To be administered during waking hours only., Routine Given 02/24/2016 3:31 PM EDT 25 mg Given 02/24/2016 8:53 AM EDT 25 mg Given 02/23/2016 9:10 PM EDT 25 mg metoclopramide (REGLAN) injection 10 mg 10 mg, Intravenous, 3 TIMES DAILY, 21 doses, First dose on Mon02/22/16 at 1700, Last dose on Mon02/29/16 at 1000, To be followed in 15 minutes by dihydroergotamine. To be administered during waking hours only., Routine Given 02/24/2016 10:01 AM EDT 10 mg Given 02/23/2016 10:05 PM EDT 10 mg Given 02/23/2016 4:21 PM EDT 10 mg nicotine (NICODERM CQ) 21 mg/24 hr patch 21 mg 21 mg, Transdermal, DAILY, First dose on Mon02/22/16 at 1700, Until Discontinued, Routine Patch Applied 02/25/2016 8:38 AM EDT 21 mg 09- Arm Upper (Left) Patch Applied 02/24/2016 8:53 AM EDT 21 mg 10- Arm Upper (Right) Patch Applied 02/23/2016 9:54 AM EDT 21 mg 03- Shoulder (Left) pantoprazole (PROTONIX) tablet 40 mg 40 mg, Oral, DAILY, First dose on Mon02/22/16 at 1545, Until Discontinued, DO NOT CRUSH OR OPEN Given 02/25/2016 8:38 AM EDT 40 mg Given 02/24/2016 8:53 AM EDT 40 mg Given 02/23/2016 9:53 AM EDT 40 mg pramipexole (MIRAPEX) tablet 1 mg 1 mg, Oral, USER SPECIFIED (Daily), First dose (after last modification) on Mon02/22/16 at 1800, Until Discontinued, Routine Given 02/24/2016 6:55 PM EDT 1 mg Given 02/23/2016 6:05 PM EDT 1 mg Given 02/22/2016 5:22 PM EDT 1 mg sodium chloride 0.9 % flush 5 mL 5 mL, Intravenous, 2 TIMES DAILY, First dose on Mon02/22/16 at 2100, Until Discontinued, Routine Given 02/24/2016 8:53 AM EDT 5 mLs Given 02/23/2016 9:34 PM EDT 5 mLs Given 02/23/2016 9:54 AM EDT 5 mLs verapamil (CALAN) tablet 80 mg 80 mg, Oral, 3 TIMES DAILY, First dose on Mon02/22/16 at 1700, Until Discontinued, Routine Given 02/25/2016 8:38 AM EDT 80 mg Given 02/24/2016 9:24 PM EDT 80 mg Given 02/24/2016 3:31 PM EDT 80 mg documented in this encounter Active and Recently Administered Medications Times are shown in EDT. Scheduled Medication Order 02/23/2016 02/24/2016 02/25/2016 dihydroergotamine (DHE) injection 0.5 mg (CANCELED)(Linked Group 1) 0.5 mg, Intravenous, 3 TIMES DAILY, 21 doses, First dose on Mon02/22/16 at 1715, Last dose on Mon02/29/16 at 1015, Do not exceed 3 mg in 24 hours. Administer during waking hours only., Routine 1113 (Given - Provider: Tesha Noonan, VEL)1631 (Given - Provider: Tesha Noonan RN)2222 (Given - Provider: Edna Gutierrez RN) 1014 (Given - Provider: Tasneem Tan RN)1615 (Not Given - Provider: Tasneem Tan RN - Reason: Patient/family refused)2215 (Not Given - Provider: Fabricio Guy RN - Reason: Patient/family refused) 1015 (Due) diphenhydrAMINE (BENADRYL) capsule 25 mg (CANCELED)(Linked Group 1) 25 mg, Oral, 3 TIMES DAILY, 21 doses, First dose on Mon02/22/16 at 1600, Last dose on Mon02/29/16 at 0900, To be followed in one hour by metoclopramide. To be administered during waking hours only., Routine 0954 (Given - Provider: Tesha Noonan RN)1541 (Given - Provider: Birgit To RN)2110 (Given - Provider: Tristen Felix RN) 0853 (Given - Provider: Lizbeth Barragan RN)1531 (Given - Provider: Tasneem Tan, VEL)2100 (Not Given - Provider: Fabricio Guy RN - Reason: Patient/family refused) 0900 (Not Given - Provider: Tasneem Tan RN - Reason: Patient/family refused) metoclopramide (REGLAN) injection 10 mg (CANCELED)(Linked Group 1) 10 mg, Intravenous, 3 TIMES DAILY, 21 doses, First dose on Mon02/22/16 at 1700, Last dose on Mon02/29/16 at 1000, To be followed in 15 minutes by dihydroergotamine. To be administered during waking hours only., Routine 1057 (Given - Provider: Tesha Noonan RN)1621 (Given - Provider: Tesha Noonan RN)2205 (Given - Provider: Edna Gutierrez RN) 1001 (Given - Provider: Tasneem Tan, VEL)1600 (Not Given - Provider: Tasneem Tan RN - Reason: Patient/family refused)2200 (Not Given - Provider: Fabricio Guy RN - Reason: Patient/family refused) 1000 (Due) nicotine (NICODERM CQ) 21 mg/24 hr patch 21 mg (CANCELED)(Linked Group 2) 21 mg, Transdermal, DAILY, First dose on Mon02/22/16 at 1700, Until Discontinued, Routine 0954 (Patch Applied - Provider: Tesha Noonan RN) 0853 (Patch Applied - Provider: Lizbeth Barragan RN) 0838 (Patch Applied - Provider: Tasneem Tan, VEL) pantoprazole (PROTONIX) tablet 40 mg (CANCELED) 40 mg, Oral, DAILY, First dose on Mon02/22/16 at 1545, Until Discontinued, DO NOT CRUSH OR OPEN 0953 (Given - Provider: Tesha Noonan RN) 0853 (Given - Provider: Lizbeth Barragan RN) 0838 (Given - Provider: Tasneem Tan, VEL) pramipexole (MIRAPEX) tablet 1 mg (CANCELED) 1 mg, Oral, USER SPECIFIED (Daily), First dose (after last modification) on Mon02/22/16 at 1800, Until Discontinued, Routine 1805 (Given - Provider: Tesha Noonan RN) 1855 (Given - Provider: Tasneem Tan, VEL) sodium chloride 0.9 % flush 5 mL (CANCELED) 5 mL, Intravenous, 2 TIMES DAILY, First dose on Mon02/22/16 at 2100, Until Discontinued, Routine 0954 (Given - Provider: Tesha Noonan RN)2134 (Given - Provider: Edna Gutierrez RN) 0853 (Given - Provider: Lizbeth Barragan RN)2100 (Not Given - Provider: Fabricio Guy, VEL - Reason: Contraindicated) 0900 (Not Given - Provider: Tasneem Tan, VEL - Reason: Loss of access) verapamil (CALAN) tablet 80 mg (CANCELED) 80 mg, Oral, 3 TIMES DAILY, First dose on Mon02/22/16 at 1700, Until Discontinued, Routine 0953 (Given - Provider: Tesha Noonan RN)1621 (Given - Provider: Tesha Noonan RN)2133 (Given - Provider: Edna Gutierrez, VEL) 0853 (Given - Provider: Lizbeth Barragan RN)1531 (Given - Provider: Tasneem Tan, VEL)2124 (Given - Provider: Fabricio Guy RN) 0838 (Given - Provider: Tasneem Tan RN) PRN Medication Order 02/23/2016 02/24/2016 02/25/2016 diaZEPam (VALIUM) tablet 10 mg (COMPLETED) 10 mg, Oral, ONCE PRN, 1 dose, Starting on Mon02/24/16 at 1646, Until Mon02/24/16 at 2047, Anxiety, 30 minutes before MRI, Routine 2047 (Given - Provider: Guy Guy RN) Linked Groups Order Group 1: diphenhydrAMINE (BENADRYL) capsule 25 mg (CANCELED)Jump to med 25 mg, Oral, 3 TIMES DAILY, 21 doses, First dose on Mon02/22/16 at 1600, Last dose on Mon02/29/16 at 0900, To be followed in one hour by metoclopramide. To be administered during waking hours only., Routine And metoclopramide (REGLAN) injection 10 mg (CANCELED)Jump to med 10 mg, Intravenous, 3 TIMES DAILY, 21 doses, First dose on Mon02/22/16 at 1700, Last dose on Mon02/29/16 at 1000, To be followed in 15 minutes by dihydroergotamine. To be administered during waking hours only., Routine And dihydroergotamine (DHE) injection 0.5 mg (CANCELED)Jump to med 0.5 mg, Intravenous, 3 TIMES DAILY, 21 doses, First dose on Mon02/22/16 at 1715, Last dose on Mon02/29/16 at 1015, Do not exceed 3 mg in 24 hours. Administer during waking hours only., Routine Group 2: nicotine (NICODERM CQ) 21 mg/24 hr patch 21 mg (CANCELED)Jump to med 21 mg, Transdermal, DAILY, First dose on Mon02/22/16 at 1700, Until Discontinued, Routine And nicotine (NICODERM CQ) 21 mg/24 hr patch Patch Verification (CANCELED) Transdermal, 2 TIMES DAILY, First dose on Mon02/22/16 at 2100, Until Discontinued, Verify nicotine 21 mg/24 hr patch And nicotine (NICODERM CQ) 21 mg/24 hr patch Patch Removal (CANCELED) Transdermal, DAILY, First dose on Mon02/23/16 at 0900, Until Discontinued, Remove nicotine 21 mg/24 hr patch documented in this encounter Care Teams Coverstitch Machine Operator Relationship Specialty Start Date End Date Nicolle Spencer MD [facility] [place] [address] PCP - General 01/21/15 12/05/16 documented as of this encounter
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
--- OUTSIDE RECORDS SUMMARY | 2024-07-12 00:34 | XMS_ITS | Encounter Summary ---
Author Organization [facility] Address [facility] [place] [address] Care Team Providers Care Recruiting Manager Name Role Phone Nicolle Spencer MD Primary Care Provider Reason for Referral * Consultation (Routine) - Closed Specialty Diagnoses / Procedures Referred By Contabdulkadir t Referred To Contact Obstetrics and Gynecology Diagnoses Stress incontinence Nicolle Spencer MD [facility] [address] [place] [address] [facility] [address] [place] [address] Referral ID Status Reason Start Date Expiration Date V isits Requested Visits Authorized [id number] Closed Consult, Test & Treat 08/10/2015 08/09/2016 1 1 Reason for Visit * Reason Comments Depression followup, did not st art the celexa Encounter Details Date Type Department Care Team (Late st Contact Info) Description 08/10/2015 11:25 AM EDT Follow-Up Internal Medicine at [address] [address] Nicolle Spencer MD [facility] [place] [address] Need for prophylactic vaccination and inoculation against influenza; Depression; Stress incontinence Discharge Disposition: Home Social History Tobacco [...] Sign Reading Time Taken Comments Blood Pressure 131/83 08/10/2015 11:39 AM EDT Pulse 105 08/10/2015 11:39 AM EDT Temperature 37.1 ??C (98.8 ??F) 08/10/2015 11:39 AM E DT Respiratory Rate - - Oxygen Saturation 98% 08/10/2015 11:39 AM EDT Inhaled Oxygen Concentration - - Weight 118.8 kg (262 lb) 08/10/2015 11:39 AM EDT Height 177.8 cm (5' 10) 08/10/2015 11:39 AM EDT reported Body Mass Index 37.59 08/10/2015 11:39 AM EDT documented in this encounter Progress Notes * Miladis Tucker RN - 08/10/2015 12:38 PM EDT Flu vaccine screening checklist completed by:Miladis Tucker 1) Is the person to be vaccinated sick today?:no 2) Does the person to be vaccinated have an allergy to eggs or to a component of the vaccine?no 3) Has the person to be vaccinated ever had a serious reaction to influenza vaccine in the past?no 4) Has the person to be vaccinated ever had Guillain-[place] syndrome?no * Nicolle Spencer MD - 08/10/2015 11:58 AM EDT CC: Chief Complaint Patient presents with ??? Depression followup, did not start the celexa I don't think there is any help HPI: Has chronic permanent Headaches, resistant to treatment Insomnia: 2 hrs a night; stress lately. Urine incontinence: can't hold at all, urgency ??? Anxiety: anxiety- generalized: gets shaky, worry all the time; panic attacks: no PHQ9 Questionnaires Data (Clinic and Pt Entered): last 4 values PHQ-9 QUESTIONNAIRE LAST 4 VALUES (AMB) 02/18/2015 03/09/2015 07/09/2015 08/10/2015 PHQ - 9 Score (Clinic) 19 (Moderately Severe Depression) - 20 (Severe Depression) 16 (Moderately Severe Depression) PHQ - 9 Score (Patient) 19 (Moderately Severe Depression) 21 (Severe Depression) - - Little interest or pleasure (Clinic) Nearly every day - Nearly every day More than half the days Little interest or pleasure (Patient) Nearly every day Nearly every day - - Down, depressed, hopeless (Clinic) Nearly every day - Nearly every day More than half the days Down, depressed, hopeless (Patient) Nearly every day Nearly every day - - Trouble sleeping (Clinic) Nearly every day - Nearly every day Nearly every day Trouble sleeping (Patient) More than half the days Nearly every day - - Tired or no energy (Clinic) Nearly every day - Nearly every day Nearly every day Tired or no energy (Patient) More than half the days Nearly every day - - Poor appetite or overeating (Clinic) More than half the days - Several days Several days Poor appetite or overeating (Patient) Nearly every day More than half the days - - Feeling like a failure (Clinic) More than half the days - More than half the days Several Days Feeling like a failure (Patient) More than half the days More than half the days - - Trouble concentrating (Clinic) More than half the days - More than half the days More than half thedays Trouble concentrating (Patient) More than half the days Nearly every day - - Moving or speaking slowly (Clinic) Several Days - Nearly every day More than half the days Moving or speaking slowly (Patient) More than half the days More than half the days - - Would be better off (Clinic) Not at all - Not at all Not at all Would be better off (Patient) Not at all Not at all - - Allergies Allergen Reactions ??? Bactrim [Sulfamethoxazole-Trimethoprim] Anaphylaxis ??? Aleve [Naproxen Sodium] Rash ??? Keflex [Cephalexin] Other (See Comments) Racing heart ??? Meloxicam Nausea Only Current Outpatient Prescriptions on File Prior to Visit Medication Sig Dispense Refill ??? omeprazole (PRILOSEC) 40 mg Capsule, Delayed Release(E.C.) Take 1 capsule by mouth daily. 30 capsule 11 ??? pramipexole (MIRAPEX) 0.5 mg Tablet Take 0.5 mg by mouth nightly. Indications: Restless Legs Syndrome ??? albuterol (PROVENTIL HFA;VENTOLIN HFA) 90 mcg/actuation HFA Aerosol Inhaler Inhale 2 puffs intothe lungs every 4 hours as needed. Use with spacer 1 Inhaler 3 ??? [DISCONTINUED] citalopram (CELEXA) 20 mg Tablet Take 1 tablet by mouth daily. May increase to 30 mg daily after 2 weeks. 60 tablet 3 No current facility-administered medications on file prior to visit. Physical exam: NAD Neurologic: intact BP 131/83 mmHg Pulse 105 Temp(Src) 37.1 ??C (98.8 ??F) Ht 177.8 cm (5' 10) Wt 118.842 kg (262 lb) BMI 37.59 kg/m2 SpO2 98% Cooperative, appears stated age, pleasant, good eye contact speech: normal rate and flow, normal prosody thought is goal oriented, no suicidal thoughts, no hallucinations or delusions mood is depressed affect is inhibited, and tearful. Cognition is grossly intact, insight is good and judgment is preserved. Lab Results Component Value Date TSH 1.81 02/18/2015 Assessment and Plan: Depression/ anxiety/ptsd: start nefazodone, follow LFTs Stress incontinence, patient with PTSD, declines PT. Instruction sheet on stres sincontinence, urogyn referral Tracie was seen today for depression. Diagnoses and associated orders for this visit: Need for prophylactic vaccination and inoculation against influenza - Flu vaccine greater than or equal to 3yo preservative free Depression Stress incontinence - Urinalysis with microscopic; Future - Urine culture Clean Catch Urine; Future - Referral to Urogynecology Other Orders - nefazodone (SERZONE) 100 mg Tablet; Take 2 tablets by mouth nightly. Start with 1/2 tablet the first week, then 1 tablet qd for a week, then 2 tablets qd. - pramipexole (MIRAPEX) 0.5 mg Tablet; Take 1-2 tablets by mouth nightly. Indications: Restless Legs Syndrome Counseling time statement: I spent 15 minutes of this 25 min encounter counseling in regard to self-management of depressed mood and anxiety. documented in this encounter Plan of Treatment Upcoming Encounters Date Type Department Care Team (Late st Contact Info) Description 09/05/2024 9:00 AM EDT Office Visit Internal Medicine at [address] [address] [facility] [place] [address] Scheduled Referrals Name Type Priority Associated Diagnoses Orde r Schedule Referral to Urogynecology Outpatient Referral Routine Stress incontinence Ordered: 08/10/2015 documented as of this encounter Procedures Procedure Name Priority Date/Time Associated Diagnosis Comments URINALYSIS WITH REFLEX CULTURE Routine 08/10/2015 12:33 PM EDT Stress incontinence URINE CULTURE Routine 08/10/2015 12:33 PM EDT Stress incontinence documented in this encounter Results * (ABNORMAL) Urine culture Clean Catch Urine (08/10/2015 12:33 PM EDT) Urine Culture Greater than 100,000 cfu/ml mixed mucosal eddie 1,000-9,000 cfu/ml Gram Negative organisms Note: Multiple bacterial morphotypes present. Suggest appropriate recollection with timely delivery to the laboratory, if clinically significant. (A) CERNER MILLENNIUM Urine specimen obtained by clean catch procedure (specimen) 08/10/2015 12:33 PM EDT 08/10/2015 6:14 PM EDT Narrative Resulting Agency Comment Spec In Lab Nicolle Spencer MD MICROBIOLOGY - GENER AL ORDERABLES [facility] * (ABNORMAL) Urinalysis with microscopic (08/10/2015 12:33 PM EDT) Glucose, Urine Dipstick Negative Negative mg/dL CERNER MILLENNIUM Protein, Urine Dipstick Negative Negative mg/dL CERNER MILLENNIUM Bilirubin, Urine Dipstick Negative Negative mg/dL CERNER MILLENNIUM Comment: Clinical correlation required for positive Urine Bilirubin results as false positive may occur with some drugs and drug related products. If a false positive is suspected a serum total bilirubin should be considered if clinically indicated. Urobilinogen, Urine Dipstick Normal Normal mg/dL CERNER MILLENNIUM pH, Urn (dipstick) 6.0 5.0 - 8.0 CERNER MILLENNIUM Blood, Urine Dipstick Moderate(A) Negative mg/dL CERNER MILLENNIUM Ketone, Urine Dipstick Negative Negative mg/dL CERNER MILLENNIUM Nitrite, Urine Dipstick Negative Negative CERNER MILLENNIUM Leukocytes, Urine Dipstick Negative Negative mcL CERNER MILLENNIUM Appearance, Urine Dipstick Hazy(A) Clear CERNER MILLENNIUM Specific [place] Urine Automated 1.020 1.002 - 1.030 CERNER MILLENNIUM Color, Urine Dipstick Yellow Yellow CERNER MILLENNIUM RBC, Urine 2 0 - 4 /HPF CERNER MILLENNIUM WBC, Urine 2 0 - 5 /HPF CERNER MILLENNIUM Squamous Epithelial Cells, Urine 4 <=4 /HPF CERNER MILLENNIUM Urine specimen (specimen) 08/10/2015 12:33 PM EDT 08/10/2015 6:14 PM EDT Narrative Resulting Agency Comment Spec In Lab Nicolle Spencer MD URINE ORDERABLES [facility] documented in this encounter Visit Diagnoses Diagnosis Need for prophylactic vaccination and inoculation against influenza Depression Depressive disorder, not elsewhere classified Stress incontinence Female stress incontinence documented in this encounter Care Teams Recruiting Manager Relationship Specialty Start Date End Date Nicolle Spencer MD [facility] [place] [address] PCP - General 01/21/15 12/05/16 documented as of this encounter
--- OUTSIDE RECORDS SUMMARY | 2024-07-12 00:34 | XMS_ITS | Encounter Summary ---
[place] [address] Care Team Providers Care Wood Grinder Operator Name Role Phone Nicolle Spencer MD Primary Care Provider [phone] Reason for Visit * Reason Onset Date Comments Triage 11/16/2015 Encounter Details Date Type Department Care Team (Late st Contact Info) Description 11/16/2015 Telephone Internal Medicine at [address] [address] Leigha Dye Triage Social History Tobacco Use Types Packs/Day [...] encounter Miscellaneous Notes * Telephone Encounter - Ragini Unger MD - 11/16/2015 12:52 PM EST If pt is coughing up green sputum and has continued SOB, may need antibiotics as symptoms have beengoing on for over a week (seen 11/10 with viral illness). Recommend she be seen today if possible. Currently there is one appt available for late afternoon. Will have nurse call pt and if can't come in today, can be scheduled for tomorrow. * Telephone Encounter - Miladis Tucker RN - 11/16/2015 12:12 PM EST TC from the patient: Now vomiting and having diarrhea starting on Lou jes. Trying to eat chicken noodle soup and vomiting each time 3-4 times per day. Diarrhea first thing in the morning. No normal stools. No fever/+ chills. Able to drink plenty of fluids. Water and cranberry juice and orangejuice. + coughing all night long. Tessalon Pearls not helping the cough and purchased Robitussin CFMax also not helping. Coughing up green sputum. Has not been able to fill her duoneb for some reason. Will call [facility] to see why. Needed clarification of directions and the patient can mill set up right away. TC back to the patient. May be vomiting secondary to coughing all of the time and the MDI are not helping. Will call back if she cont. To vomit or if the cough does not improve with the nebulizer. * Telephone Encounter - Leigha Dye - 11/16/2015 11:41 AM EST Message: patient calling in regards to wanting to speak with a nurse about her symptoms. Stating she is getting worse as she is now vomiting and having diarrhea. Please call Caller and relationship (if other than patient-full name): self Best time to call back: any Ok to leave a message: [ y] Ok to send my- message: [n] documented in this encounter Plan of Treatment Upcoming Encounters Date Type Department Care Team (Late st Contact Info) Description 09/05/2024 9:00 AM EDT Office Visit Internal Medicine at [address] [address] Gema Oliveira, [facility] GENER[place] [address] documented as of this encounter Visit Diagnoses Not on filedocumented in this encounter Care Teams Wood Grinder Operator Relationship Specialty Start Date End Date Nicolle Spencer MD [facility] [place] [place] [address] PCP - General 01/21/15 12/05/16 documented as of this encounter
--- OUTSIDE RECORDS SUMMARY | 2024-07-12 00:34 | XMS_ITS | Encounter Summary ---
Author [place] [address] Care Team Providers Care Haul Truck Driver Name Role Phone Nicolle Spencer MD Primary Care Provider [phone] Reason for Visit * Reason Onset Date Comments Triage 01/15/2016 Encounter Details Date Type Department Care Team (Late st Contact Info) Description 01/15/2016 Telephone Internal Medicine at [address] [address] Elaina Ly Triage Social History Tobacco Use Types Packs/Day [...] Telephone Encounter - Leah Raines RN - 01/15/2016 2:23 PM EST Patient called back, she had completed xrays. Xray results as follows: IMPRESSION: ?? No fracture or other acute interval change. 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 Scheduled with Dr Crane at [facility] tomorrow am and patient agrees. * Telephone Encounter - Leah Raines RN - 01/15/2016 1:03 PM EST Patient reports that she has pain in left hip, can't stand>3 minutes, can't really explain the pain. States she heard a pop a few days ago and it has been very painful since. Rest helps relieve it but it occurs again when she stands and starts to walk. Describes pain as sharp but otherwise hasdifficulty describing it. Doesn't have a cane or walker; is using a w/c at her current location in [facility]. Reviewed with Dr Crane who ordered xray; depending on results will schedule with Ortho or with Dr Crane at [facility] tomorrow. * Telephone Encounter - Elaina Corona - 01/15/2016 12:08 PM EST Message: patient states there is something wrong with her left hip. Caller and relationship (if other than patient-full name): Best time to call back: today Ok to leave a message: [ yes] Ok to send my- message: [n] Offered Appointment: yes-no openings Nurse contacted via: Message: x Call: Pager: documented in this encounter Plan of Treatment Upcoming Encounters Date Type Department Care Team (Late st Contact Info) Description 09/05/2024 9:00 AM EDT Office [place] [address] Gema Oliveira, [facility] GENERAL [place] [address] documented as of this encounter Visit Diagnoses Diagnosis Pain in left hip Pain in joint, pelvic region and thigh documented in this encounter Care Teams Haul Truck Driver Relationship Specialty Start Date End Date Nicolle Spencer MD [facility] [address] [place] [address] PCP - General 01/21/15 12/05/16 documented as of this encounter
--- OUTSIDE RECORDS SUMMARY | 2024-07-12 00:34 | XMS_ITS | Encounter Summary ---
Author Organization [facility] [place] [address] Care Team Providers Care Motor Pool Driver Name Role Phone Nicolle Spencer MD Primary Care Provider Encounter Details Date Type Department Care Team (Late Contact Info) Description 09/10/2015 Telephone Internal Medicine at [facility] [address] [place], [place] [id number] Leah Raines RN Social History Tobacco Use [...] Telephone Encounter - Leah Raines RN - 09/10/2015 2:05 PM EDT Lizbeth from Neurology calling, Dr Mark concerned with BP 150/90-102 at appt today. Recommended she beseen tomorrow for hypertension f/u. Forwarded to reading instructor. documented in this encounter Plan of Treatment Upcoming Encounters Date Type Department Care Team (Late st Contact Info) Description 09/05/2024 9:00 AM EDT Office Visit Internal Medicine at [facility] [address] [place] [address] Gema Oliveira DO [facility] GENERAL [place] [address] documented as of this encounter Visit Diagnoses Not on filedocumented in this encounter Care Teams Motor Pool Driver Relationship Specialty Start Date End Date Nicolle Spencer MD [facility] GENERAL [place] [address] PCP - General 01/21/15 12/05/16 documented as of this encounter
--- OUTSIDE RECORDS SUMMARY | 2024-07-12 00:34 | XMS_ITS | Encounter Summary ---
[place] [address] Care Team Providers Care Blocking Machine Operator Name Role Phone Nicolle Spencer MD Primary Care Provider [phone] Reason for Visit * Reason Onset Date Comments Triage 11/10/2015 Encounter Details Date Type Department Care Team (Late st Contact Info) Description 11/10/2015 Telephone Internal Medicine at [address] [address] Rosie Justice Triage Social History Tobacco Use Types Packs/Day [...] Telephone Encounter - Miladis Tucker RN - 11/10/2015 9:47 AM EST Caller:Pateint Learning Needs Assessment Reviewed: Yes Subjective Patient presents with: Triage Objective/Assessment Symptom onset:Two days ago Location: Duration: Characteristics:Stuffy, dry cough, ear bilat. Pain, raise green sputum, sore throat. Denies fever/+chills/+ SOB always from asthma. Aggravating factors:Coughing makes her chest burn, inhalers not helping. Relieving factors:No Timing: Severity: Pertinent Past Medical History:Asthma Plan Intervention/Plan/ Follow Up: Will be seen in [facility] this morning. * Telephone Encounter - Rosie Justice - 11/10/2015 9:05 AM EST Message: Patient has both ears aching, sore throat, nasal congestion, and cough. Sometimes coughingup green mucus. Please call to discuss. Caller and relationship (if other than patient-full name): Self Best time to call back: Any Ok to leave a message: [ Yes] Ok to send my- message: [No] Offered Appointment: None Available Today Nurse contacted via: Message: X Call: Attempted Pager: documented in this encounter Plan of Treatment Upcoming Encounters Date Type Department Care Team (Late st Contact Info) Description 09/05/2024 9:00 AM EDT Office Visit Internal Medicine at [place] [id number] Gema Oliveira, [facility] [place] [address] documented as of this encounter Visit Diagnoses Not on filedocumented in this encounter Care Teams Blocking Machine Operator Relationship Specialty Start Date End Date Nicolle Spencer MD [facility] [address] [place] [address] PCP - General 01/21/15 12/05/16 documented as of this encounter
--- OUTSIDE RECORDS SUMMARY | 2024-07-12 00:34 | XMS_ITS | Encounter Summary ---
Author Organization [facility] Address [facility] [place] [address] Care Team Providers Care Facilities Manager Name Role Phone Nicolle Spencer MD Primary Care Provider [phone] Encounter Details Date Type Department Care Team (Late st Contact Info) Description 01/22/2016 [place] [id number] Gracie Mark MD [facility] [place] [place] [address] Social History Tobacco Use Types Packs/Day Years [...] encounter Miscellaneous Notes * Telephone Encounter - Smith Fonseca LPN - 01/22/2016 3:56 PM EST Error. documented in this encounter Plan of Treatment Upcoming Encounters Date Type Department Care Team (Late st Contact Info) Description 09/05/2024 9:00 AM EDT Office Visit Internal Medicine at [address] [address] Gema Oliveira DO [facility] [place] [address] documented as of this encounter Visit Diagnoses Not on filedocumented in this encounter Care Teams Facilities Manager Relationship Specialty Start Date End Date Nicolle Spencer MD [facility] [place] [address] PCP - General 01/21/15 12/05/16 documented as of this encounter
--- OUTSIDE RECORDS SUMMARY | 2024-07-12 00:34 | XMS_ITS | Encounter Summary ---
Author Organization [facility] [place] [address] Care Team Providers Care Rock Mason Apprentice Name Role Phone Nicolle Spencer MD Primary Care Provider [phone] Reason for Visit * Reason Comments URI x1 week; coughing, c hest pain, throat pain, vomitting, diarehha, green mucus, shortness of breath. Encounter Details Date Type Department Care Team (Late st Contact Info) Description 11/16/2015 3:40 PM EST Office [place] [address] Ragini Unger MD [facility] [place] [address] Acute bronchitis, unspecified organism; Reactive airway disease, mild intermittent, with acute exacerbation; Tobacco use disorder Social History Tobacco Use Types Packs/Day [...] Sign Reading Time Taken Comments Blood Pressure 127/76 11/16/2015 3:49 PM EST rig ht arm Pulse 91 11/16/2015 3:49 PM EST Temperature 36.7 ??C (98 ??F) 11/16/2015 3:49 PM EST Respiratory Rate 16 11/16/2015 3:49 PM EST Oxygen Saturation - - Inhaled Oxygen Concentration - - Weight 126.6 kg (279 lb 3.2 oz) 11/16/2015 3:49 PM EST Height 177.8 cm (5' 10) 11/16/2015 3:49 PM EST reported Body Mass Index 40.06 11/16/2015 3:49 PM EST documented in this encounter Progress Notes * Ragini Unger MD - 11/17/2015 6:03 PM EST ESTABLISHED PATIENT ACUTE VISIT Chief Complaint Patient presents with ??? URI x1 week; coughing, chest pain, throat pain, vomitting, diarehha, green mucus, shortness of breath. Pt is a 44 y.o. female who presents for acute visit with persistent cough, fatigue and chest pain. Was seen 1 week ago with a 1 week history of cough, sob and fatigue. Was treated as viral URI with asthma exacerbation. Was treated with nebulizer treatment. Script given for duoneb, but wasn't able to pick that up until today. Has been primarily using albuterol, tesselon pearles and an otc robitussin however is feeling worse, still with cough prod of green phlegm, sob and malaise but now has developed nausea and diarrhea. Has been vomiting after eating and sometimes with coughing. Eating little, but taking good fluids and denies any lightheadedness, fever/chills/sweats. + tobacco, + h/o asthma ROS: Constitutional - no fevers, chills, weight loss or gain, +fatigue HEENT - No difficulty swallowing, hearing, + nasal congestion/postnasal drip Respiratory - No new SOB, + BAUMANN, + wheeze, + cough, + sputum production Cardiovascular - No new CP, palpitations, angina, edema, claudication Gastrointestinal - No new abdominal pain, +nausea, GERD, constipation, + diarrhea, no blood in stool - no new difficulty urinating, incontinence or dysuria. Musculoskeletal - No new weakness, pain at rest or with movement Skin - no new rashes All other systems negative Current Outpatient Prescriptions on File Prior to Visit Medication Sig Dispense Refill ??? ipratropium-albuterol (DUONEB) 0.5 mg-3 mg(2.5 mg base)/3 mL Solution for Nebulization Take 0.5mg by nebulization 4 times daily. 1 vial 4 ??? benzonatate (TESSALON) 100 mg Capsule Take 1 capsule by mouth 3 times daily as needed for Cough. 30 tablet 0 ??? omeprazole (PRILOSEC) 40 mg [...] 3 mL 3 mL Nebulization Q4H Kalyan Haney, BALE BREAKER OPERATOR 3 mL at 11/10/15 1153 Patient Active [...] for depression/ptsd from [facility] Patient reported measures: Pain:4 Physical Health:Poor Fall: PHQ-9 QUESTIONNAIRE SCORE ONLY (AMB) 11/16/2015 PHQ - 9 Score (Clinic) 0 (No Depression) PHQ - 9 Score (Patient) - Physical Exam: Filed Vitals: 11/16/15 1549 BP: 127/76 Pulse: 91 Temp: 36.7 ??C (98 ??F) TempSrc: Oral Resp: 16 Height: 177.8 cm (5' 10) Weight: 126.644 kg (279 lb 3.2 oz) General - No acute distress. Tired appearing. ENT - TM clear. Mouth moist without lesions. Eyes- EOMI. Not jaundiced. Noninjected Neck - No lymphadenopathy. No thyromegaly Lungs - Clear to auscultation. Assessment and Plan: Tracie was seen today for persistent URI symptoms. No evidence for pneumonia but may have bacterial bronchitis. Unclear if current GI symptoms are secondary to another process or related. Will start antibiotic and phenergan with codeine and the duonebs which pt now has. Pt to push fluids and follow bland diet. Discussed role of tobacco in current illness and recommendation to stop. Diagnoses and all orders for this visit: Acute bronchitis, unspecified organism Orders: - azithromycin (ZITHROMAX) 250 mg Tablet; Day 1: Take 2 tablets daily, Day 2 - 5: Take one tablet daily - promethazine-codeine (PHENERGAN WITH CODEINE) 6.25-10 mg/5 mL Syrup; Take 5 mLs by mouth 4 times daily as needed for Cough. Reactive airway disease, mild intermittent, with acute exacerbation Orders: - promethazine-codeine (PHENERGAN WITH CODEINE) 6.25-10 mg/5 mL Syrup; Take 5 mLs by mouth 4 times daily as needed for Cough. documented in this encounter Plan of Treatment Upcoming Encounters Date Type Department Care Team (Late st Contact Info) Description 09/05/2024 9:00 AM EDT Office Visit Internal Medicine at [address] [address] Geam Oliveira, [facility] [place] [address] documented as of this encounter Visit Diagnoses Diagnosis Acute bronchitis, unspecified organism Reactive airway disease, mild intermittent, with acute exacerbation Tobacco use disorder documented in this encounter Care Teams Rock Mason Apprentice Relationship Specialty Start Date End Date Nicolle Spencer MD [facility] INTERNAL [facility] [place] [address] PCP - General 01/21/15 12/05/16 documented as of this encounter
--- OUTSIDE RECORDS SUMMARY | 2024-07-12 00:34 | XMS_ITS | Encounter Summary ---
[place] [address] Care Team Providers Care Aircraft Launch And Recovery Technician Name Role Phone Nicolle Spencer MD Primary Care Provider [phone] Reason for Visit * Reason Onset Date Comments Other 02/18/2016 Encounter Details Date Type Department Care Team (Late st Contact Info) Description 02/18/2016 Telephone Internal Medicine at [address] [address] Emerita Rankin Other Social History Tobacco Use Types Packs/Day [...] Telephone Encounter - Miladis Tucker RN - 02/18/2016 10:45 AM EDT Left message to call with how much she is smoking. Reviewed the chart and the patient states that she is smoking 1/[address] Crane who agreed to start at 14 mg patch. * Telephone Encounter - Emerita Waite - 02/18/2016 10:43 AM EDT Message: Pt would like Dr. Spencre t give her a script for nicotine patches. Caller and relationship (if other than patient-full name): Self Best time to call back: any Ok to leave a message: [ y] documented in this encounter Plan of Treatment Upcoming Encounters Date Type Department Care Team (Late st Contact Info) Description 09/05/2024 9:00 AM EDT Office Visit Internal Medicine at [address] [address] Gema Oliveira DO [facility] [place] [address] documented as of this encounter Visit Diagnoses Not on filedocumented in this encounter Care Teams Aircraft Launch And Recovery Technician Relationship Specialty Start Date End Date Nicolle Spencer MD [facility] [address] INTERNAL [facility] [place] [address] PCP - General 01/21/15 12/05/16 documented as of this encounter
--- OUTSIDE RECORDS SUMMARY | 2024-07-12 00:34 | XMS_ITS | Encounter Summary ---
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 Role Phone Nicolle Spencer MD Primary Care Provider Reason for Visit * Reason Comments Chest Pain Encounter Details Date Type Department Care Team (Late st Contact Info) Description 09/13/2015 12:13 PM EDT - 09/13/2015 4:31 PM EDT [place] [address] Sincere Finley MD [facility] [address] [place] [address] Chest pain, unspecified chest pain type; Other chest pain; Headache(784.0) Discharge Disposition: Home Social History Tobacco Use [...] Sign Reading Time Taken Comments Blood Pressure 146/76 09/13/2015 4:00 PM EDT Pulse 95 09/13/2015 4:00 PM EDT Temperature 36.7 ??C (98.1 ??F) 09/13/2015 12:21 PM E DT Respiratory Rate 23 09/13/2015 4:00 PM EDT Oxygen Saturation 98% 09/13/2015 4:00 PM EDT Inhaled Oxygen Concentration - - Weight - - Height - - Body Mass Index - - documented in this encounter Discharge Instructions * Discharge Instructions* Scout Barragan - 09/13/2015 4:14 PM EDT You have been diagnosed with chest pain, there are many things that can cause chest pain, both emergencies and non-emergencies. After your evaluation your chest pain appears to be low-risk, but one can never say that there is no risk. If you experience any change in the character, location, or intensity of your pain, have fever or chills, develop shortness of breath, nausea, or any new symptoms or concerns it is important that youreturn to the Emergency Department for a repeat evaluation. It is important that you follow up with your doctor in the next week for a recheck. If you have discussed a Stress Test with your doctor today it is important to follow up with your primary care doctor to have this test scheduled. [facility] Chest Pain: After Your Visit Your Care Instructions There are many things that can cause chest pain. Some are not serious and will get better on their own in a few days. But some kinds of chest pain need more testing and treatment. Your doctor may have recommended a follow-up visit in the next 8 to 12 hours. If you are not getting better, you may need more tests or treatment. Even though your doctor has released you, you still need to watch for any problems. The doctor carefully checked you, but sometimes problems can develop later. If you have new symptoms or if your symptoms do not get better, get medical care right away. If you have worse or different chest pain or pressure that lasts more than 5 minutes or you passed out (lost consciousness), call 911 or seek other emergency help right away. A medical visit is only one step in your treatment. Even if you feel better, you still need to do what your doctor recommends, such as going to all suggested follow-up appointments and taking medicines exactly as directed. This will help you recover and help prevent future problems. How can you care for yourself at home? ?? Rest until you feel better. ?? Take your medicine exactly as prescribed. Call your doctor if you think you are having a problemwith your medicine. ?? Do not drive after taking a prescription pain medicine. When should you call for help? Call 911 if: ?? You passed out (lost consciousness). ?? You have severe difficulty breathing. ?? You have symptoms of a heart attack. These may include: ?? Chest pain or pressure, or a strange feeling in your chest. ?? Sweating. ?? Shortness of breath. ?? Nausea or vomiting. ?? Pain, pressure, or a strange feeling in your back, neck, jaw, or upper belly or in one or both shoulders or arms. ?? Lightheadedness or sudden weakness. ?? A fast or irregular heartbeat. After you call 911, the automatic brine mixer operator may tell you to chew 1 adult-strength or 2 to 4 low-dose aspirin. Wait for an ambulance. Do not try to drive yourself. Call your doctor today if: ?? You have any trouble breathing. ?? Your chest pain gets worse. ?? You are dizzy or lightheaded, or you feel like you may faint. ?? You are not getting better as expected. ?? You are having new or different chest pain. Where can you learn more? Visit our health information library at [email or web address] You can also view health information on [employer], your personal patient account. Log in or sign up today. Enter A120 in the search box to learn more about Chest Pain: After Your Visit. ?? [phone] [employer]. Care instructions adapted under license by [facility]. This care instruction is for use with your licensed healthcare professional. If you have questions about a medical condition or this instruction, always ask your healthcare professional. [employer] disclaims any warranty or liability for your use of this information. Content Version: 10.4.308695; Current as of: April 23, 2014 documented in this encounter Medications at [...] 08/10/2015 10/19/2015 documented as of this encounter ED Notes * Scout Barragan - 09/13/2015 3:49 PM EDT Chief Complaint Patient presents with ??? Chest Pain HPI 44-year-old female who presents with chest pain. The patient reports that this began yesterday. Shereports a sharp pain with intermittent radiation to the neck and arm. Denies nausea, vomiting and diaphoresis. Denies alleviating and exacerbating factors. Denies exertional component. Denies fevers and cough. Denies history of DVTs, PEs, hemoptysis, recent surgeries, on replacement therapy, or active malignancy. She does report a recent hospitalization within the past 6 weeks. She also has a history of chronic headaches and reports a headache currently that is similar to priors. Denies abdominal pain and urinary symptoms. Allergies Allergen Reactions ??? Bactrim [Sulfamethoxazole-Trimethoprim] Anaphylaxis ??? Aleve [Naproxen Sodium] Rash ??? Keflex [Cephalexin] Other (See Comments) Racing heart ??? Meloxicam Nausea Only Review of Systems Constitutional: Negative for fever. Patient is wearing her sunglasses HENT: Negative for rhinorrhea. Eyes: Negative for visual disturbance. Respiratory: Negative for shortness of breath. Cardiovascular: Positive for chest pain. Gastrointestinal: Negative for nausea, vomiting and abdominal pain. Genitourinary: Negative for dysuria. Musculoskeletal: Negative for back pain. Skin: Negative for rash. Neurological: Negative for weakness and numbness. Physical Exam Constitutional: She is oriented to person, place, and time. No distress. HENT: Head: Normocephalic and atraumatic. Eyes: Conjunctivae are normal. Right eye exhibits no discharge. Left eye exhibits no discharge. Neck: Neck supple. Cardiovascular: Normal rate and normal heart sounds. Pulmonary/Chest: Effort normal. No respiratory distress. She has no wheezes. She has no rales. Abdominal: Soft. She exhibits no distension. There is no tenderness. There is no rebound and no guarding. Musculoskeletal: She exhibits no edema. Neurological: She is alert and oriented to person, place, and time. Skin: Skin is warm and dry. She is not diaphoretic. Psychiatric: She has a normal mood and affect. Her behavior is normal. Nursing note and vitals reviewed. Procedures MDM 44-year-old female who presents with atypical chest pain. On exam her vitals are within normal limits. Her physical exam is unremarkable. I considered ACS, PE, aortic dissection, pneumonia, and pneumothorax. Per the PE rule out criteria the patient's probability of a PE is less than 2%. I reviewed the patient's chest x-ray which showed no evidence of pneumonia or pneumothorax. Given the temporal profile and quality of her chest pain my suspicion for an aortic dissection is low. I reviewed the patient's EKG which showed normal sinus rhythm without evidence of acute ischemia. Cardiac enzymes negative by 2. Outpatient stress test has been ordered. The patient was felt to be safe for discharge with return precautions and outpatient stress test within 72 hours. Scout Barragan DO Resident 09/13/15 1614 Associated attestation - Sincere Finley MD - 09/18/2015 5:21 AM EDT ED ATTENDING ATTESTATION NOTE The patient was seen in conjunction with Dr. Barragan, the resident physician. I have independently performed the sandhu portions of the history and physical exam. I have reviewed the nursing notes, vital signs, and all diagnostic studies personally including labs, imaging studies and EKGs. I have discussed the details of the case with the resident and agree with the assessment and plan as described in the resident note above unless noted otherwise below. Brief Summary: Patient complains of chest pain patient has very low risk for PE, EKG is sinus without acute ischemic changes crit enzymes are negative ??2 patient will have an outpatient stress test Final Assessment: Atypical chest pain and nonischemic EKG with 2 negative troponins outpatient stress test and follow-up * Dagoberto Pacheco RN - 09/13/2015 1:25 PM EDT Pt called RN to go to bathroom. Pt stood and got dizzy, lightheaded, slow recovery. Pt sat back down, commode gotten for pt at bedside. documented in this encounter Miscellaneous Notes * ED Triage - Kennedi Galindo RN - 09/13/2015 12:47 PM EDT Intermittent chest pain since yesterday Varies in quality of pain Nothing makes the pain better or worse Denies recent illness, fever, shortness of breath Occasionally 'clammy' Pain intermittently radiates to left arm Chronic headaches and back pain documented in this encounter Plan of Treatment Upcoming Encounters Date Type Department Care Team (Late st Contact Info) Description 09/05/2024 9:00 AM EDT Office Visit Internal Medicine at [address] [address] [address], [facility] [place] [address] documented as of this encounter Procedures Procedure Name Priority Date/Time Associated Diagnosis Comments TROPONIN STAT 09/13/2015 3:35 PM EDT HEMOGRAM STAT 09/13/2015 2:20 PM EDT DIFFERENTIAL, AUTOMATED STAT 09/13/2015 2:20 PM EDT CBC (WITH DIFF) STAT 09/13/2015 2:20 PM EDT XR CHEST PA AND LATERAL STAT 09/13/2015 1:51 PM EDT BLUE TUBE HOLD STAT 09/13/2015 1:25 PM EDT CREATININE STAT 09/13/2015 1:25 PM EDT BUN STAT 09/13/2015 1:25 PM EDT TROPONIN STAT 09/13/2015 1:25 PM EDT GLUCOSE STAT 09/13/2015 1:25 PM EDT ELECTROLYTES PANEL STAT 09/13/2015 1: 25 PM EDT EKG 12-LEAD STAT 09/13/2015 12:21 PM EDT documented in this encounter Results * STRESS ECHO W CONTRAST W LMTD SPEC DOPP COLOR DOPP (09/14/2015 3:46 PM EDT) EF 65 HEARTLAB SYSTEM Anatomical Region Laterality Modality Other 09/14/2015 Narrative 09/14/2015 4:43 PM EDT Procedure: ?Stress Echocardiogram Patient: ?CATRACHO Palm ?(Age): 1970(44y) Med Rec#: ? [id number] ?Sex: ?F ? Site Loc: ? DH ?Ht / Wt: ??177.8(cm)/121.5 Pt. Loc: ?Echo Lab ?BSA: ?2.36 Study Date: ?? 09/14/2015 ?Pt. Type: Tape: ? Referring: Sincere Finley Reading: Oswald Garzon ([id number]) Dough Catcher: Noris Mendoza Airline Station Agent: Evan Guy Diagnosis: *ICD-10-PCS Chest pain, unspecified (R07.9) CPT Codes: *Stress Echo (25930) *Color Doppler (61249) *Doppler LTD (99532) *ECG Interpretation (31710) *Definity (86597AP) Stage ? BP ?HR ? Rest ?112/60 [...] E-wave Vmax ?1.2 ?m/sec ? MV deceleration uter148 ?msec ? MV A-wave Vmax ?1.2 ?m/sec [...] ?Normal ?Normal ? Mid-Inferoseptal ?Normal ?Normal ? [place]-Septal ? Normal ?Normal ? [place]-Anterior ? Normal ?Normal ? [place]-Lateral ?Normal ?Normal ? [place]-Inferior ? Normal ?Normal ? [place]-Tip ?Normal ?Normal ? This report has been electronically signed by: Oswald Garzon MD ? 09/14/2015 16:43:28 Images reviewed and interpretation verified [facility] Cardiac Ultrasound Laboratory Procedure Note Oswald Garzon MD - 09/14/2015 Procedure: Stress Echocardiogram Patient: CATRACHO Palm (Age): 1970(44y) Med Rec#: [id number] Sex: F Site Loc: [facility] Ht / Wt: 177.8(cm)/121.5 Pt. Loc: Echo Lab BSA: 2.36 Study Date: 09/14/2015 Pt. Type: Tape: Referring: Sincere Finley Reading: Oswald Garzon ([id number]) Dough Catcher: Noris Mendoza Airline Station Agent: Evan Guy Diagnosis: *ICD-10-PCS Chest pain, unspecified (R07.9) CPT Codes: *Stress Echo (49343) *Color Doppler (03530) *Doppler LTD (09631) *ECG Interpretation (35045) *Definity (00457BC) Stage BP HR Rest 112/60 113 Peak [...] MV E-wave Vmax 1.2 m/sec MV deceleration [id number] msec MV A-wave Vmax 1.2 m/sec MV [...] Normal Mid-Inferior Normal Normal Mid-Inferoseptal Normal Normal [place]-Septal Normal Normal [place]-Anterior Normal Normal [place]-Lateral Normal Normal [place]-Inferior Normal Normal [place]-Tip Normal Normal This report has been electronically signed by: Oswald Garzon MD 09/14/2015 16:43:28 Images reviewed and interpretation verified [facility] Cardiac Ultrasound Laboratory Sincere Finley MD ECHO ORDERABLES * Troponin T (09/13/2015 3:35 PM EDT) Troponin-T <0.03 <=0.03 ng/mL [facility] Comment: 0.03 ng/mL: Represents the 99th percentile upper reference limit for normals. >0.03 ng/mL: Elevated cardiac troponin T level indicative of myocardial damage. Diagnosis of acute, evolving or recent VT requires a typical rise and gradual fall [...] consensus document of the Joint Society of Cardiology/[place] College of Cardiology Committee for the redefinition of myocardial infarction. ??Journal of the [place] College of Cardiology 2000; 36: 959-969] Blood specimen (specimen) 09/13/2015 3:35 PM EDT 09/13/2015 3:42 PM EDT Narrative Resulting Agency Comment Spec In Lab Sincere Finley MD CHEMISTRY ORDERABLES [facility] * Differential, Automated (09/13/2015 2:20 PM EDT) Neutrophil % 53.4 % [facility] Neutrophil Absolute 4.43 1.50 - 6.30 x10(3)/mcL [facility] Lymph % 34.5 % [facility] Lymphocytes Abs 2.9 1.0 - 3.6 x10(3)/mcL [facility] Monocyte % 7.3 % [facility] Monocyte Abs 0.6 0.2 - 1.0 x10(3)/mcL [facility] Eos % 4.2 % [facility] Eosinophils Abs 0.4 0.0 - 0.5 x10(3)/mcL [facility] Basophil % 0.2 % [facility] Baso Absolute 0.0 0.0 - 0.2 x10(3)/mcL [facility] Immature Gran % 0.40 % [facility] Comment: Immature granulocytes(IG's)percentage and absolute count will include metamyelocytes, myelocytes, and promyelocytes. Blood smears from CBCs yielding IG's will be scanned manually for concordance. If this scan disagrees with the automated IG or if promyelocytes are noted, a manual differential will be performed. Immature Gran Absolute 0.03 0.00 - 0.05 x10(3)/mcL [facility] Blood specimen (specimen) 09/13/2015 2:20 PM EDT 09/13/2015 2:32 PM EDT Narrative Resulting Agency Comment Spec In Lab Scout Kerns MD HEMATOLOGY ORDERABLE S Performing Organization Address City/[facility] Co de Phone Number [facility] * Hemogram (09/13/2015 2:20 PM EDT) White Blood Cell 8.3 4.0 - 10.0 x10(3)/mcL [facility] Red Blood Cell 4.76 3.93 - 5.22 x10(6)/mcL [facility] Hemoglobin 13.7 11.2 - 15.7 gm/dL [facility] Hematocrit 40.2 34.0 - 45.0 % [facility] MILLENNIUM Mean Cell Volume 84.5 79.0 - 94.0 fL [facility]ILL[facility]NI[facility] Mean Cell Hemoglobin 28.8 26.6 - 32.2 pg [facility]ILLENNI[facility] Mean Cell Hemoglobin Concentration 34.1 32.0 - 36.5 gm/dL [facility]ILL[facility] Platelet 189 145 - 370 x10(3)/mcL [facility]ILLENNI[facility] RDW Standard Deviation 38.9 35.0 - 46.0 fL [facility]ILL[facility]NI[facility] RDW coefficient of variation 12.8 10.9 - 14.4 % [facility]ILLENNI[facility] Mean Platelet Volume 10.6 9.0 - 12.0 fL [facility] Blood specimen (specimen) 09/13/2015 2:20 PM EDT 09/13/2015 2:32 PM EDT Narrative Resulting Agency Comment Spec In Lab Scout Kerns MD HEMATOLOGY ORDERABLE S ALIL MALDONADO * (ABNORMAL) XR Chest Routine PA & Lateral (09/13/2015 1:51 PM EDT) Anatomical Region Laterality Modality Chest N/A Digital Radiogra phy Impressions 09/13/2015 2:02 PM EDT IMPRESSION: No acute cardiopulmonary pathology identified on chest radiograph. Sclerotic lesion in the proximal aspect of the left humerus. 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 However, dedicated imaging for further evaluation is indicated if there is focal pain at this site, please correlate. UNEXPECTED FINDING. Narrative 09/13/2015 2:02 PM EDT EXAMINATION: XR CHEST ROUTINE PA AND LATERAL CLINICAL HISTORY: Chest pain with SOB ? pna TECHNIQUE: AP and lateral chest. COMPARISON: None FINDINGS: Lungs are clear. No pleural effusion. Normal size of the heart and width of the mediastinum. Mild degenerative changes along the thoracic spine. Resulting Agency Comment Unexpected Finding Procedure Note Dahlia Matt MD - 09/13/2015 EXAMINATION: XR CHEST ROUTINE PA AND LATERAL CLINICAL HISTORY: Chest pain with SOB ? pna TECHNIQUE: AP and lateral chest. COMPARISON: None FINDINGS: Lungs are clear. No pleural effusion. Normal size of the heart and widthof the mediastinum. Mild degenerative changes along the thoracic spine. IMPRESSION IMPRESSION: No acute cardiopulmonary pathology identified on chest radiograph. Sclerotic lesion in the proximal aspect of the left humerus. Theappearance is most consistent with a benign enchondroma. However, dedicated imagingfor further evaluation is indicated if there is focal pain at this site,please correlate. UNEXPECTED FINDING. Sincere Finley MD IMG DX ORDERABLES * Blue Tube HOLD (09/13/2015 1:25 PM EDT) Blue Hold Sample in lab. ALLI MALDONADO Blood specimen (specimen) Venous Draw / Unknown 09/13/2015 1:25 PM EDT 09/13/2015 1:29 PM EDT Sincere Finley MD HEMATOLOGY ORDERABLE S ALLI MALDONADO * Troponin T (09/13/2015 1:25 PM EDT) Pathologist [facility] Troponin-T <0.03 <=0.03 ng/mL [facility] Comment: 0.03 ng/mL: Represents the 99th percentile upper reference limit for normals. >0.03 ng/mL: Elevated cardiac troponin T level indicative of myocardial damage. Diagnosis of acute, evolving or recent VT requires a typical rise and gradual fall [...] consensus document of the Joint Society of Cardiology/[place] College of Cardiology Committee for the redefinition of myocardial infarction. ??Journal of the [place] College of Cardiology 2000; 36: 959-969] Blood specimen (specimen) 09/13/2015 1:25 PM EDT 09/13/2015 1:29 PM EDT Narrative Resulting Agency Comment Spec In Lab Sincere Finley MD CHEMISTRY ORDERABLES Performing Organization Address City/[facility] Co de Phone Number [facility] * Glucose, random (09/13/2015 1:25 PM EDT) [facility] Glucose 75 65 - 199 mg/dL [facility] Comment:Diabetes: >=200 mg/d L plus symptoms Blood specimen (specimen) 09/13/2015 1:25 PM EDT 09/13/2015 1:29 PM EDT Narrative Resulting Agency Comment Spec In Lab Sincere Finley MD CHEMISTRY ORDERABLES Performing Organization Address [facility]/State/ZIP Co de Phone Number [facility] * (ABNORMAL) Creatinine (09/13/2015 1:25 PM EDT) [facility] Creatinine 1.04 0.70 - 1.20 mg/dL [facility] Comment: Please note that the pediatric reference intervals supplied above were not validated at [facility]. Results from pediatric patients should be interpreted in conjunction to the patient's age, height and muscle mass. Est Glomerular Filtration Rate 58(L) >=60 [facility] Comment: This estimated GFR (eGFR) value [...] the following links into your internet browser. [email or web address] Blood specimen (specimen) 09/13/2015 1:25 PM EDT 09/13/2015 1:29 PM EDT Narrative Resulting Agency Comment Spec In Lab Sincere Finley MD CHEMISTRY ORDERABLES Performing Organization Address [facility] de Phone Number [facility] * BUN (09/13/2015 1:25 PM EDT) Blood Urea Nitrogen 14 8 - 18 mg/dL [facility] Blood specimen (specimen) 09/13/2015 1:25 PM EDT 09/13/2015 1:29 PM EDT Narrative Resulting Agency Comment Spec In Lab Sincere Finley MD CHEMISTRY ORDERABLES Performing Organization Address [facility] de Phone Number [facility] * Electrolytes panel (09/13/2015 1:25 PM EDT) Sodium 138 135 - 145 mmol/L [facility] Potassium 4.0 3.5 - 5.0 mmol/L [facility] Comment: Please note: ??Patients with WBC >100,000 may have falsely elevated Potassium levels. ??For accurate Potassium quantification in these patients send serum separator tube (gold top) for subsequent determinations. ??Contact the Clinical Chemistry Laboratory if there are any questions. Chloride 101 98 - 107 mmol/L [facility] Carbon Dioxide 24 22 - 31 mmol/L [facility] Anion Gap 13 5 - 15 mmol/L [facility] Blood specimen (specimen) 09/13/2015 1:25 PM EDT 09/13/2015 1:29 PM EDT Narrative Resulting Agency Comment Spec In Lab Sincere Finley MD CHEMISTRY ORDERABLES Performing Organization Address City/[facility]/ZIP Co de Phone Number [facility] * EKG 12 Lead (09/13/2015 12:21 PM EDT) Ventricular rate 86 BPM MUSE SYSTEM Atrial Rate 86 BPM MUSE SYSTEM P-R Interval 126 ms MUSE SYSTEM QRS Duration 72 ms MUSE SYSTEM Q-T Interval 402 ms MUSE SYSTEM QTC Calculated (Bezet) 481 ms MUSE SYSTEM Calculated P [place] 43 degrees MUSE SYSTEM Calculated R [place] 29 degrees MUSE SYSTEM Calculated T [place] -11 degrees MUSE SYSTEM INTERPRETATION Normal sinus rhythm Nonspecific T wave abnormality Prolonged QT Abnormal ECG When compared with ECG of 25-AUG-2015 22:08, No significant change was found Confirmed by MD Alfa, Gonsalo ([id number]) on 09/14/2015 8:56:22 AM MUSE SYSTEM 09/13/2015 12:2 1 PM EDT 09/14/2015 8:56 AM EDT Sincere Finley MD ECG ORDERABLES Performing Organization Address City/[facility] Co de Phone Number MUSE SYSTEM documented in this encounter Visit Diagnoses Diagnosis Chest pain, unspecified chest pain type Other chest pain Headache(784.0) Headache documented in this encounter Care Teams Oil Field Worker Relationship Specialty Start Date End Date Nicolle Spencer MD [facility] [place] [address] PCP - General 01/21/15 12/05/16 documented as of this encounter
--- OUTSIDE RECORDS SUMMARY | 2024-07-12 00:34 | XMS_ITS | Encounter Summary ---
Author Organization [facility] Address [facility] [place] [address] Care Team Providers Care Lab Rep Name Role Phone Nicolle Spencer MD Primary Care Provider [phone] Reason for Visit * Reason Comments Cough Monday it started wi th a cough, now a sore throat, bilateral ear pain, and chest congestion. Encounter Details Date Type Department Care Team (Late st Contact Info) Description 11/10/2015 11:30 AM EST Office [place] [address] Kalyan Haney, SARITHA [facility] [place] [address] Sore throat; Acute URI; Asthma, mild intermittent, uncomplicated Social History Tobacco [...] Sign Reading Time Taken Comments Blood Pressure 137/85 11/10/2015 11:18 AM EST Pulse 115 11/10/2015 11:18 AM EST Temperature 36.6 ??C (97.8 ??F) 11/10/2015 11:[address] Respiratory Rate 18 11/10/2015 11:18 AM EST Oxygen Saturation 99% 11/10/2015 11:18 AM EST Inhaled Oxygen Concentration - - Weight 125.2 kg (276 lb) 11/10/2015 11:18 AM EST Height 177.8 cm (5' 10) 11/10/2015 11:18 AM EST Body Mass Index 39.6 11/10/2015 11:18 AM EST documented in this encounter Progress Notes * Kalyan Haney, COST REPORT CLERK - 11/10/2015 11:29 AM EST ESTABLISHED PATIENT VISIT I. HISTORY a. Reason(s) for Visit: Tracie Layton 44 y.o. female asked to be seen for: Chief Complaint Patient presents with ??? Cough Monday it started with a cough, now a sore throat, bilateral ear pain, and chest congestion. b. History of Present Illness: Approximately a week ago, began having symptoms of URI including cough, congestions, PND, and ear pain. Symptoms have continued to worsen over the week despite use of inhaler and pushing fluids. Decided to come in today when she had an increase in BAUMANN. No fever, N/V/D, able to swallow adequately. Has not taken anything for cough, but not clear what she can take. Using Tylenol with moderate affect. At baseline for activity, sleeping less due to cough. Patient Active Problem List Diagnosis Code ??? [...] ??? Vagina bleeding N93.9 ??? Depression F32.9 Allergies Allergen Reactions ??? Bactrim [Sulfamethoxazole-Trimethoprim] Anaphylaxis [...] facility-administered medications on file prior to visit. c. Review of Systems: Constitutional - No fevers, no chills, no weight loss or gain, +fatigue Neuro - No dizziness, no change in vision, no balance issues or recent falls Cardiovascular - No CP, no palpitations, no angina Respiratory - No SOB, no BAUMANN, + wheeze, + cough, + sputum production HEENT - No difficulty swallowing, no difficulty hearing, + nasal congestion, + postnasal drip Gastrointestinal - No abdominal pain, no nausea, no GERD, no constipation, no diarrhea, no blood instool - No difficulty urinating, no dysuria, no urinary frequency, no incontinence, no nocturia II. PHYSICAL EXAM Filed Vitals: 11/10/15 1118 BP: 137/85 Pulse: 115 Temp: 36.6 ??C (97.8 ??F) TempSrc: Oral Resp: 18 Height: 177.8 cm (5' 10) Weight: 125.193 kg (276 lb) SpO2: 99% General - No acute distress, conversing without difficulty. Appears uncomfortable, speech is hoarse, frequent coughing. ENT - TM clear with normal light reflex, no nasal mucosal edema, oropharynx clear. Neck - + lymphadenopathy Lungs - Expiratory wheeze, coarse upper airway sounds. Heart - RRR, S1,S2, no murmur, gallop or rub. III. ASSESSMENT/PLAN: 44-year old female with acute URI and bronchitis History of Asthma and has nebulizer at home, will restart Duoneb treatments x 2 weeks 3 x daily. Supportive care for symptom management Reviewed symptoms for which she should return Encouraged smoking cessation documented in this encounter Plan of Treatment Upcoming Encounters Date Type Department Care Team (Late st Contact Info) Description 09/05/2024 9:00 AM EDT Office [place] [address] [facility] [place] [address] documented as of this encounter Procedures Procedure Name Priority Date/Time Associated Diagnosis Comments POCT RAPID STREP A Routine 11/10/2015 11 :30 AM EST Sore throat documented in this encounter Results * POCT rapid strep A (11/10/2015 11:30 AM EST) POC Grp A Strep Negative Negative - Negative POC Control Internal Controls Acceptable 11/10/2015 11:3 0 AM EST Fede Franks MD POINT OF CARE TEST ORDERABLES documented in this encounter Visit Diagnoses Diagnosis Sore throat Acute pharyngitis Acute URI Acute upper respiratory infections of unspecified site Asthma, mild intermittent, uncomplicated documented in this encounter Administered Medications Inactive Administered Medications - up to 3 most recent administrations Medication Order MAR Action Action Date Dose Rate Site ipratropium-albuterol (DUONEB) 0.5 mg-3 mg(2.5 mg base)/3 mL nebulizer solution 3 mL 3 mL, Nebulization, EVERY 4 HOURS, First dose on Mon11/10/15 at 1200, Until Discontinued, Routine Given 11/10/2015 11:53 AM EST 3 mLs documented in this encounter Care Teams Lab Rep Relationship Specialty Start Date End Date Nicolle Spencer MD [facility] [address] [place] [address] PCP - General 01/21/15 12/05/16 documented as of this encounter
--- OUTSIDE RECORDS SUMMARY | 2024-07-12 00:34 | XMS_ITS | Encounter Summary ---
Author Organization [facility] [place] [address] Care Team Providers Care Medical Support Assistant Name Role Phone Nicolle Spencer MD Primary Care Provider [phone] Reason for Visit * Reason Onset Date Comments Medication Refill 08/23/2015 Encounter Details Date Type Department Care Team (Late st Contact Info) Description 08/23/2015 Refill [place] [address] Pam Gunn APRN [facility] [place] [address] Gastroesophageal reflux disease without esophagitis Social History [...] encounter Miscellaneous Notes * Telephone Encounter - Roxy Rendon RN - 08/24/2015 9:30 AM EDTFrom: Tracie Layton To: Pam Gunn APRN Sent: 08/23/2015 12:04 PM EDT Subject: Medication Renewal Request Original authorizing provider: SARITHA KHALIL would like a refill of the following medications: omeprazole (PRILOSEC) 40 mg Capsule, Delayed Release(E.C.) [PAM GUNN, SARITHA] Preferred pharmacy: [facility] [address] [place] [address] - [address] Comment: Please call into [facility]. Medication renewals requested in this message routed to other providers: albuterol (PROVENTIL HFA;VENTOLIN HFA) 90 mcg/actuation HFA Aerosol Inhaler [HERNANDEZ TIA] documented in this encounter Plan of Treatment Upcoming Encounters Date Type Department Care Team (Late st Contact Info) Description 09/05/2024 9:00 AM EDT Office Visit Internal Medicine at [address] [address] Gema Oliveira DO [facility] [address] [place] [address] documented as of this encounter Visit Diagnoses Diagnosis Gastroesophageal reflux disease without esophagitis Esophageal reflux documented in this encounter Care Teams Medical Support Assistant Relationship Specialty Start Date End Date Nicolle Spencer MD [facility] [address] INTERNAL [facility] [place] [address] PCP - General 01/21/15 12/05/16 documented as of this encounter
--- OUTSIDE RECORDS SUMMARY | 2024-07-12 00:34 | XMS_ITS | Encounter Summary ---
Author Organization [facility] Address [facility] [place] [address] Care Team Providers Care Co Founder And Cto Name Role Phone Nicolle Spencer MD Primary Care Provider [phone] Reason for Visit * Reason Comments Hip Pain left hip pain a week ago, slipped and twisted. Encounter Details Date Type Department Care Team (Late st Contact Info) Description 01/16/2016 10:20 AM EST Office Visit Family Medicine at [facility] [address] [place] [address] [facility] [place] [address] Trochanteric bursitis of left hip Social History Tobacco Use Types Packs/Day Years [...] Sign Reading Time Taken Comments Blood Pressure 136/84 01/16/2016 10:16 AM EST Pulse 113 01/16/2016 10:16 AM EST Temperature 36.6 ??C (97.9 ??F) 01/16/2016 1 0:16 AM EST Respiratory Rate 18 01/16/2016 10:1 6 AM EST Oxygen Saturation 98% 01/16/2016 10: 16 AM EST at rest room air Inhaled Oxygen Concentration - - Weight 128.5 kg (283 lb 6.4 oz) 01/16/2016 10:16 AM EST Height 177.8 cm (5' 10) 01/16/2016 10: 16 AM EST Body Mass Index 40.66 01/16/2016 10:16 AM EST documented in this encounter Patient Instructions * Patient Instructions* Frolian Crane MD - 01/16/2016 10:32 AM EST Images from the original note were not included. Take ibuprofen 600mg three times a day with food for one week Do exercises twice daily [facility] Hip Bursitis: Exercises Your Care Instructions Here are [...] your hand to gently push your knee away from your body until you feel a gentle stretch around your hip. 4. Hold the stretch for 15 to 30 seconds. 5. Repeat 2 to 4 times. 6. Repeat steps 1 through 5, but this time use your hand to gently pull your knee toward your opposite shoulder. Iliotibial band stretch 1. Lean sideways against a wall. If you are not steady on your feet, hold on to a chair or counter. 2. Stand on the leg with the affected hip, with that leg close to the wall. Then cross your other leg in front of it. 3. Let your affected hip drop out to the side of your body and against wall. Then lean away from your affected hip until you feel a stretch. 4. Hold the stretch for 15 to 30 seconds. 5. Repeat 2 to 4 times. Straight-leg raises to the outside 1. Lie on your side, with your affected hip on top. 2. Tighten the front thigh muscles of your top leg to keep your knee straight. 3. Keep your hip and your leg straight in line with the rest of your body, and keep your knee pointing forward. Do not drop your hip back. 4. Lift your top leg straight up toward the ceiling, about 12 inches off the floor. Hold for about 6 seconds, then slowly lower your leg. 5. Repeat 8 to 12 times. Clamshell 1. Lie on your side, with your affected hip on top and your head propped on a pillow. Keep your feet and knees together and your knees bent. 2. Raise your top knee, but keep your feet together. Do not let your hips roll back. Your legs should open up like a clamshell. 3. Hold for 6 seconds. 4. Slowly lower your knee back down. Rest for 10 seconds. 5. Repeat 8 to 12 times. Follow-up [...] more? Visit our health information library at [email or web address] You can also view health information on [employer], your personal patient account. Log in or sign up today. Enter H674 in the search box to learn more about Hip Bursitis: Exercises. ?? [id number] [employer] Care instructions adapted under license by [facility]. This care instruction is for use with your licensed healthcare professional. If you have questions about a medical condition or this instruction, always ask your healthcare professional. [employer] disclaims any warranty or liability for your use of this information. Content Version: 10.4.243675; Current as of: April 23, 2014 documented in this encounter Progress Notes * Froilan Crane MD - 01/16/2016 10:20 AM EST ESTABLISHED PATIENT VISIT I. HISTORY a. Reason(s) for Visit: Tracie Layton 45 y.o. female who presents today due to complaint(s) of: Chief Complaint Patient presents with ??? Hip Pain left hip pain a week ago, slipped and twisted. b. History of Present Illness:[] Pt complaining of L hip pain x 1 week that is worse with standing. Improves with rest but returns with ambulation. X-rays yesterday showed mild degenerative changes but no acute change. States that pain keeps getting worse and worse. Standing bothers her the most. Feels it more of her back side. c. Review of Systems: Constitutional - no fevers, chills, weight loss or gain, fatigue Cardiovascular - No CP, palpitations, angina, BAUMANN, SOB Respiratory - No SOB, BAUMANN, wheeze, cough, sputum production HEENT - No diffculty swallowing, hearing, No nasal congestion or postnasal drip Gastrointestinal - No abdominal pain, nausea, GERD, constipation, diarrhea, blood in stool Musculoskeletal - see HPI All other systems negative d. PMH Patient Active Problem List Diagnosis ??? Depression hx suicide attempt Past meds: Prozac, Lexapro, Effexor, Clonazepam, [place]. None worked. Has chronic up and [...] neuralgia ??? Post concussive syndrome 05/31/2014 Soc: History Substance Use Topics ??? Smoking status: Current Every Day Smoker -- 0.50 packs/day for 25 years Types: Cigarettes ??? Smokeless tobacco: Never Used Comment: chantix helped ??? Alcohol Use: Yes Comment: socially II. PHYSICAL EXAM: BP 136/84 mmHg Pulse 113 Temp(Src) 36.6 ??C (97.9 ??F) (Oral) Resp 18 Ht 177.8 cm (5' 10) Wt 128.549 kg (283 lb 6.4 oz) BMI 40.66 kg/m2 SpO2 98% General - No acute distress, conversing without difficulty. Eyes - EOMI. No scleral icterus Neck - No lymphadenopathy, supple, no masses Extremities - No clubbing, cyanosis or edema. L hip - FROM, increased pain with external rotation and extreme adduction. Very tender over greatertrochanter. III. ASSESSMENT/PLAN:Tracie Layton 45 y.o. female presenting with likely trochanteric bursitis. Discussed treatment options and offered injection given how uncomfortable pt is but she preferred to ibuprofen and stretching first. Tracie was seen today for hip pain. Diagnoses and all orders for this visit: Trochanteric bursitis of left hip - Given handout for stretches - Ibuprofen 600mg tid with food for one week then prn - If no improvement consider steroid injection F/u prn Meds reconciled documented in this encounter Plan of Treatment Upcoming Encounters Date Type Department Care Team (Late st Contact Info) Description 09/05/2024 9:00 AM EDT Office Visit Internal Medicine at [address] [facility] [place] [address] documented as of this encounter Visit Diagnoses Diagnosis Trochanteric bursitis of left hip Enthesopathy of hip region documented in this encounter Care Teams Co Founder And Cto Relationship Specialty Start Date End Date Nicolle Spencer MD [facility] [place] [address] PCP - General 01/21/15 12/05/16 documented as of this encounter
--- OUTSIDE RECORDS SUMMARY | 2024-07-12 00:35 | XMS_ITS | Encounter Summary ---
Author Organization [facility] [place] [address] Care Team Providers Care Solvent Station Attendant Name Role Phone Nicolle Spencer MD Primary Care Provider Reason for Visit * Reason Onset Date Comments Medication Refill 02/16/2015 Encounter Details Date Type Department Care Team (Late st Contact Info) Description 02/16/2015 Refill Internal Medicine at [address] [address] Miladis Tucker, RN Social History Tobacco Use Types Packs/Day Years Used Date Smoking Tobacco: Every Day Cigarettes 0.3 25 Smokeless Tobacco: Never Alcohol Use Standard Drinks/Week Comments No 0 (1 standard drink = 0.6 oz pur e alcohol) rarely/ seldom Sex and Gender Information Value Date Recorded Sex Assigned at Not on file Gender Identity Not on file Sexual Orientation Not on file documented as of this encounter Plan of Treatment Upcoming Encounters Date Type Department Care Team (Late st Contact Info) Description 09/05/2024 9:00 AM EDT Office Visit Internal Medicine at [address] [address] Gema Oliveira DO [facility] [place] [address] documented as of this encounter Visit Diagnoses Not on filedocumented in this encounter Care Teams Solvent Station Attendant Relationship Specialty Start Date End Date Nicolle Spencer MD [facility] [place] [address] PCP - General 01/21/15 12/05/16 documented as of this encounter
--- OUTSIDE RECORDS SUMMARY | 2024-07-12 00:35 | XMS_ITS | Encounter Summary ---
Author Organization [facility] [place] [address] Care Team Providers Care Lockstitch Waistband Setter Name Role Phone Nicolle Spencer MD Primary Care Provider Reason for Referral * Consultation (Urgent) - Closed Specialty Diagnoses / Procedures Referred By Contac t Referred To Contact Obstetrics and Gynecology Diagnoses Vaginal bleeding Pelvic pain in female Flank pain Cortney Hooker MD [facility] [place] [address] [facility] Certified Hearing Instrument Dispenser [address] [place] [address] Referral ID Status Reason Start Date Expiration Date V isits Requested Visits Authorized [id number] Closed Consult, Test & Treat 02/12/2015 02/12/2016 1 1 Encounter Details Date Type Department Care Team (Late st Contact Info) Description 02/12/2015 Telephone Internal Medicine at [facility] [address] [place] [address] [place] [address] Social History Tobacco Use Types [...] encounter Miscellaneous Notes * Telephone Encounter - Cortney Hooker MD - 02/12/2015 3:22 PM EDT Call from Dr. Ov[place]o in radiology. Pt noted to have abnormal thickened endometrium. Referral made to senior gis analyst. Called pt. She is still having discomfort and vaginal bleeding. Concern for endometrial pathology. documented in this encounter Plan of Treatment Upcoming Encounters Date Type Department Care Team (Late st Contact Info) Description 09/05/2024 9:00 AM EDT Office Visit Internal Medicine at [address] [address] Gema Oliveira, [facility] [place] [address] Scheduled Referrals Name Type Priority Associated Diagnoses Orde r Schedule Referral to Ob-White Washer Piler Outpatient Referral Routine Vaginal bleeding Pelvic pain in female Flank pain Ordered: 02/12/2015 documented as of this encounter Visit Diagnoses Diagnosis Vaginal bleeding Other specified noninflammatory disorder of vagina Pelvic pain in female Unspecified symptom associated with female genital organs Flank pain Abdominal pain, unspecified site documented in this encounter Care Teams Lockstitch Waistband Setter Relationship Specialty Start Date End Date Nicolle Spencer MD [facility] [address] INTERNAL [facility] [place] [address] PCP - General 01/21/15 12/05/16 documented as of this encounter
--- OUTSIDE RECORDS SUMMARY | 2024-07-12 00:35 | XMS_ITS | Encounter Summary ---
Author Organization [facility] [place] [address] Care Team Providers Care Pavilion Cutter Name Role Phone Nicolle Spencer MD Primary Care Provider [phone] Encounter Details Date Type Department Care Team (Late st Contact Info) Description 02/16/2015 Orders Only Internal Medicine at [address] [address] Nicolle Spencer MD [facility] GENERAL INTERNAL [facility] [place] [address] Hematuria, unspecified Social History Tobacco Use Types Packs/Day Years [...] EDT Office Visit Internal Medicine at [address] [address] Gema Oliveira DO [facility] [address] [address] documented as of this encounter Results * Cytopathology Non-Gynecological (02/16/2015 3:38 PM EDT) AP Specimen 02/16/2015 3:38 PM EDT 02/16/2015 3:38 PM EDT Narrative ALLI MALDONADO - 02/16/2015 3:38 PM EDT Specimen requisition ordered. ??Separate Pathology report to follow Nicolle Spencer MD PATHOLOGY/CYTOLOGY O RDERARUBÉN Performing Organization Address City/State/[facility] Co de Phone Number ALLI MALDONADO documented in this encounter Visit Diagnoses Diagnosis Hematuria, unspecified Hematuria, unspecified documented in this encounter Care Teams Pavilion Cutter Relationship Specialty Start Date End Date Nicolle Spencer MD [facility] GENERAL [place] [address] PCP - General 01/21/15 12/05/16 documented as of this encounter
--- OUTSIDE RECORDS SUMMARY | 2024-07-12 00:35 | XMS_ITS | Encounter Summary ---
Author Organization [facility] [place] [address] Care Team Providers Care Purchasing Intern Name Role Phone Nicolle Crandall MD Primary Care Provider Reason for Visit * Reason Comments Anxiety bad, bad anxiety Encounter Details Date Type Department Care Team (Late st Contact Info) Description 07/09/2015 9:05 AM EDT Office Visit Internal Medicine at [address] [address] Basilia Williamson APRN [facility] [place] [address] Depression; Anxiety Discharge Disposition: Home Social History Tobacco Use [...] Sign Reading Time Taken Comments Blood Pressure 123/83 07/09/2015 9:13 AM EDT Pulse 89 07/09/2015 9:13 AM EDT Temperature - - Respiratory Rate - - Oxygen Saturation 97% 07/09/2015 9:13 AM EDT Inhaled Oxygen Concentration - - Weight 117.9 kg (260 lb) 07/09/2015 9:13 AM EDT Height 177.8 cm (5' 10) 07/09/2015 9:13 AM EDT Body Mass Index 37.31 07/09/2015 9:13 AM EDT documented in this encounter Progress Notes * Basilia Williamson W, ELECT[employer]IC V[employer] GAMES SERVICER - 07/09/2015 9:25 AM EDT PCP: NICOLLE CRANDALL MD (General) Chief Complaint Patient presents with ??? Anxiety bad, bad anxiety SUBJECTIVE: Tracie Layton is a 44 y.o. female who presents for anxiety. She reports that it is not new, but really bad. She has been treated on a lot of different medications. She is unsure when she was last norbert medication. She reports that she was seeing a psychiatrist at [facility], but that provider left. - she recently had a break up - she is living with her children- they are all adults. - she has a counselor who is on leave and will return in August. - She reports that she has poor sleep. She does not watch TV as it triggers the PTSD. - she does not think that the PTSD has gotten worse. FÉLIX-7 0=not at all, 1=several days, 2=more than half the days, 3=nearly every day Over the last 2 weeks, how often have you been bothered by the following problems: 1. Feeling nervous, anxious or on edge: 3 2. Not being able to stop or control worryin 3. Worrying too much about different things: 3 4. Trouble relaxin 5. Being so restless that it is hard to sit still: 3 6. Becoming easily annoyed or irritable: 2 7. Feeling afraid as if something awful might happen: 3 Total score: 20 Score: 5-9=mild; 10-14=moderate; 15-21=severe. How difficult have these problems made it for you to do your work, take care of things at home, or get along with other people? x Not at all, somewhat, very, extremely difficult. PHQ9 Questionnaires Data (Clinic and Pt Entered): Today's value PHQ-9 QUESTIONNAIRE (AMB) 07/09/2015 PHQ - 9 Score (Clinic) 20 (Severe Depression) PHQ - 9 Score (Patient) - Little interest or pleasure (Clinic) Nearly every day Little interest or pleasure (Patient) - Down, depressed, hopeless (Clinic) Nearly every day Down, depressed, hopeless (Patient) - Trouble sleeping (Clinic) Nearly every day Trouble sleeping (Patient) - Tired or no energy (Clinic) Nearly every day Tired or no energy (Patient) - Poor appetite or overeating (Clinic) Several days Poor appetite or overeating (Patient) - Feeling like a failure (Clinic) More than half the days Feeling like a failure (Patient) - Trouble concentrating (Clinic) More than half the days Trouble concentrating (Patient) - Moving or speaking slowly (Clinic) Nearly every day Moving or speaking slowly (Patient) - Would be better off (Clinic) Not at all Would be better off (Patient) - How difficult are the problems (Clinic) Extremely difficult Review of Systems Constitutional: Negative for fever and chills. Psychiatric/Behavioral: Positive for sleep disturbance, dysphoric mood and decreased concentration.Negative for suicidal ideas. The patient is nervous/anxious. Allergies Allergen Reactions ??? Bactrim [Sulfamethoxazole-Trimethoprim] Anaphylaxis ??? Aleve [Naproxen Sodium] Rash ??? Keflex [Cephalexin] Other (See Comments) Racing heart ??? Meloxicam Nausea Only Current Outpatient Prescriptions Medication Sig Dispense Refill ??? omeprazole (PRILOSEC) [...] Hematuria, unspecified 599.70 ??? Vagina bleeding 623.8 OBJECTIVE: Filed Vitals: 07/09/15 0913 BP: 123/83 Pulse: 89 Height: 177.8 cm (5' 10) Weight: 117.935 kg (260 lb) SpO2: 97% PHYSICAL EXAM: Physical Exam Constitutional: No distress. Wearing sunglasses HENT: Head: Normocephalic and atraumatic. Skin: Skin is warm and dry. Psychiatric: She is slowed and withdrawn. She exhibits a depressed mood. ASSESSMENT & PLAN: Tracie was seen today for anxiety. Diagnoses and associated orders for this visit: Depression/Anxiety - patient has been on multiple medications in past, and reports that they have not worked - she reports that symptoms have been very bad and wants help with sxs - she is living with her grown children and recently had break up, this is causing a lot of stress for her - discussed various medications and she did not want to try zoloft or effexor again, she is very worried about s/e of headaches with any medications. - encouraged psychiatrist, but she refused because did not want to have to tell story again. Her most recent psychiatrist left - her counselor returning in August - would be interested in working with Fiorella Perez and CBT program; will make appointment -willing to try celexa after some discussion (no listed s/e of headaches and she has not tried in the past) - f/u 2 weeks - citalopram (CELEXA) 20 mg Tablet; Take 1 tablet by mouth daily. May increase to 30 mg daily after2 weeks. documented in this encounter Plan of Treatment Upcoming Encounters Date Type Department Care Team (Late st Contact Info) Description 09/05/2024 9:00 AM EDT Office [place] [address] Gema Oliveira DO [facility] [place] [address] documented as of this encounter Visit Diagnoses Diagnosis Depression Depressive disorder, not elsewhere classified Anxiety Anxiety state, unspecified documented in this encounter Care Teams Purchasing Intern Relationship Specialty Start Date End Date Nicolle Crandall MD [facility] [place] [address] PCP - General 01/21/15 12/05/16 documented as of this encounter
--- OUTSIDE RECORDS SUMMARY | 2024-07-12 00:35 | XMS_ITS | Encounter Summary ---
Author Organization [facility] Address [facility] [place] [address] Care Team Providers Care Ticketing Clerk Name Role Phone Nicolle Spencer MD Primary Care Provider Encounter Details Date Type Department Care Team (Late st Contact Info) Description 03/09/2015 9:40 AM EDT Office Visit Psychiatry [place] [address] Dinh Frye MD [facility] [place] [address] MDD (major depressive disorder), recurrent severe, without psychosis Social History Tobacco Use Types Packs/Day Years [...] Reading Time Taken Comments Blood Pressure 140/82 03/09/2015 10:18 AM EDT Pulse 107 03/09/2015 10:18 AM EDT Temperature - - Respiratory Rate - - Oxygen Saturation - - Inhaled Oxygen Concentration - - Weight 118.4 kg (261 lb) 03/09/2015 10:18 AM EDT Height 177.8 cm (5' 10) 03/09/2015 10:18 AM EDT Body Mass Index 37.45 03/09/2015 10:18 AM EDT documented in this encounter Patient Instructions * Patient Instructions* Dinh Frye MD - 03/09/2015 11:08 AM EDT [email or web address] documented in this encounter Progress Notes * Sadaf Smith MD - 03/13/2015 4:20 PM EDT PSYCHIATRY TEACHING PHYSICIAN INVOLVEMENT Location: Office Attending Physician: Sadaf Smith MD Resident name: Dinh Frye MD I saw and evaluated the patient with the above named resident/ See their note for details. I reviewed the patient's history during the visit and I agree with the details as written. My exam confirms the resident's findings. The assessment and plan were formulated in discussion with me and I agree with them as documented. Major issues addressed/discussed: Following a review of her symptoms and complaints, we discussed medication options and provided education, including why it's not advisable to stop medications without talking with her doctor. Her worsening symptoms, especially her social withdrawal, are concerning. As documented by Dr. Frye, the patient consented to a trial of sertraline following a discussion of risks and benefits. Additional comments: none * Dinh Frye MD - 03/09/2015 10:21 AM EDT ESTABLISHED ADULT PATIENT OFFICE VISIT NOTE Time Spent: 30 min Attendee(s): Pt This patient was seen with discussed with teaching faculty (name) Dr Smith See her note for confirmatory and/or revisionary documentation. HISTORY Chief Complaint: Tracie Layton is a 44 y.o. Female presents today for medication follow up HPI: () She describes worsening mood, due to increased frustration associated with her 9 mo long headache. She also reports that increased light from the spring sun is worsening her headache and makes her more confined at home. She is not able to get out at night either since headlights have the same effect. She describes worsening irritability since prior visit, no change in sleep, appetite, isolation or anxiety. She still has regular nightmares and has the same difficulties falling asleep. She reports that her anxiety prior to falling asleep is either due to ruminations or due to worries about havingnightmares. She feels helpless and hopeless with these headaches. About 1 week ago, due to frustration and worries that some of her medications were either not having any positive effects and/or that they were worsening her headaches, she stopped most of them, except for Topamax and pramipexole. She denies any substance use, neither alcohol or MJ since last visit. She reports no panic attack in some time. Some intense anxiety, but no panic attack. Wondering if her nightmares are due to REM sleep disturbances and I suggested having a sleep study done. The patient reported that it was already offered to her, but she feels that she would not be able to sleep, because of her anxiety being around people she does not know. Sunburn on her face. Head not in the sun. Most recent PHQ9: PHQ9 03/09/2015 Little interest or pleasure Nearly every day Down, depressed, hopeless Nearly every day Trouble sleeping Nearly every day Tired or no energy Nearly every day Poor appetite or overeating More than half the days Feeling like a failure More than half the days Trouble concentrating (newspaper) Nearly every day Moving or speaking slowly More than half the days Would be better off Not at all PHQ9 Scores 21 (Severe Depression) Current Medications: Current Outpatient Prescriptions Medication Sig Dispense Refill ??? pramipexole (MIRAPEX) 0.5 mg Tablet Take 1 tablet by mouth nightly. 90 tablet 3 ??? nicotine (NICODERM CQ) 7 mg/[address] 1 patch onto the skin daily. 14 patch 0 ??? HYDROcodone-acetaminophen 5-325 mg Tablet Take 1 tablet by mouth 2 times daily as needed for Pain. 20 tablet 0 ??? ondansetron (ZOFRAN) 4 mg Tablet Take 1 tablet by mouth every 8 hours as needed for Nausea. 20 tablet 0 ??? cloNIDine HCl (CATAPRES) 0.1 mg Tablet Take 1 tablet by mouth nightly as needed (for anxiety associated nightmares). Take 1-2 tab at night 60 tablet 3 ??? venlafaxine (EFFEXOR-XR) 75 mg Capsule, Sust. Release 24 hr Take 1 capsule by mouth every morning. Take 1 cap for the first 7 days, then increase to 2 cap. 7 capsule 0 ??? venlafaxine (EFFEXOR-XR) 150 mg Capsule, Sust. Release 24 hr Take 1 capsule by mouth daily. 23 capsule 0 ??? topiramate (TOPAMAX) 100 mg Tablet Take 1 tablet by mouth 2 times daily. 60 tablet 3 ??? albuterol (PROVENTIL HFA;VENTOLIN HFA) 90 mcg/actuation HFA Aerosol Inhaler Inhale 2 puffs intothe lungs every 4 hours as needed. Use with spacer 1 Inhaler 3 ??? hydrOXYzine (VISTARIL) 25 mg Capsule Take 1 capsule by mouth 2 times daily as needed (for Mild to moderate headaches - can be taken with Naproxen sodium). 60 capsule 12 ??? promethazine (PHENERGAN) [address] 1-2 suppositories rectally every 6 hours as needed (Nausea with headache). 15 suppository 5 ??? baclofen (LIORESAL) 10 mg Tablet Take 10-20 mg nightly for neck and sleep and 10 mg twice dailyas needed. 90 tablet 1 No current facility-administered medications for this visit. Pertinent Medication Side Effects: Unsure, did not notice positive effect from medication, and was not sure if was not worsening headache, so stopped it. Review of Systems: (11/21/09) Constitutional: uncomfortable Eyes: Wearing sunglasses to help with light sensitivity ENT: No cough Cardiovascular: No sob Respiratory: No sob GI: no nausea : Musculoskeletal: Integumentary: no rash Neurological: headache Psychiatric: See HPI above Endocrine: Hematologic/Lymphatic: Allergic/Immunological: See reviewed allergies PFSH: () Past Medical/Psychiatric History: No change since last visit Family Psychiatric and Medical History: No change since last visit Social History: She has been having more difficulties going out of her home due to the light worsening her headaches and has been going from her BF to her daughter's. EXAM [04/28/14 bullets (incl VS)] Constitutional System ? Vital Signs: Blood pressure 140/82, pulse 107, height 177.8 cm (5' 10), weight 118.389 kg (261 lb), last menstrual period 03/09/2015. Musculoskeletal System ? Muscle Strength/Tone (note atrophy, abnormal movements): No abn mvt noted ? Gait and Station: wnl Psychiatric System ? General Appearance/Behavior: appeared irritable, was wearing large sunglasses, with side- protection. We put the lights down to help with it. Good grooming, good hygiene, overweight. ? Speech: normal tone and volume ? Thought Process: Linear, logical and goal directed ? Associations: ? Abnormal Thoughts and Perceptions / Thought Content: Homicidality / Violent Thoughts: none Suicidality: none Hallucinations: none Delusions: none Obsessions: none ? Judgment and Insight: fair/fair ? Mood & Affect: lousy, pissed, angry, mood congruent ? Orientation: 3x ? Attention/Concentration: wnl ? Memory: wnl ? Language: kyrgyz, fluent ? Fund of Knowledge: age and education appropriate Psychotherapeutic Interventions and Response: Supportive, medication education MEDICAL DECISION MAKING ASSESSMENT: Tracie Layton is a 44 y.o. Female with depression, related to her chronic headaches. Her social anxiety has been making things difficult for her to help her being assessed by a sleep study to see if her nightmares are not the part of a REM disturbance. We discussed the importance of staying with a medication for at least 4 weeks at a good level, prior to giving up on it and to contact me with doubts or questions prior to stopping. We discussed multiple medications, Sertraline, Paroxetine, Duloxetine and Prazosine. The patient reported that she wanted to try Sertraline, which would be my first choice, it has shown good effect for depression, PTSD and social anxiety, which she has symptoms of. We decided to try to get a relatively rapid increase and see her back in 1 month. Hersymptoms are minimally worse. PLAN: Start Sertraline and increase weekly by 50 mg until achieved 200 mg daily. Gave information about a CBT online tool. Patient Instruction/Education provided: Patient provided verbal instructions regarding medication. Patient understands the plan? Yes documented in this encounter Plan of Treatment Upcoming Encounters Date Type Department Care Team (Late st Contact Info) Description 09/05/2024 9:00 AM EDT Office Visit Internal Medicine at [address] [address] Gema Oliveira, [facility] [place] [address] documented as of this encounter Visit Diagnoses Diagnosis MDD (major depressive disorder), recurrent severe, without psychosis Major depressive disorder, recurrent episode, severe, without mention of psychotic behavior documented in this encounter Care Teams Ticketing Clerk Relationship Specialty Start Date End Date Nicolle Spencer MD [facility] INTERNAL [facility] [place] [address] PCP - General 01/21/15 12/05/16 documented as of this encounter
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
--- OUTSIDE RECORDS SUMMARY | 2024-07-12 00:35 | XMS_ITS | Encounter Summary ---
Author Organization [facility] Address [facility] [place] [address] Care Team Providers Care Chief Of Safety And Protection Name Role Phone Nicolle Spencer MD Primary Care Provider Reason for Visit * Reason Onset Date Comments Abnormal Labs 01/21/2015 Encounter Details Date Type Department Care Team (Late st Contact Info) Description 01/21/2015 Telephone [place] [address] Gracie Mark MD [facility] [place] [address] Abnormal Labs Social History Tobacco Use Types Packs/Day Years [...] encounter Miscellaneous Notes * Telephone Encounter - Margi Montez RN - 01/22/2015 9:59 AM EST I spoke with Tracie to inform her of the slightly abnormal lab results. She voiced understanidng andshe will repeat the blood draw in approximately 2 weeks, here at [facility] [place]. Last office note and lab results have been successfully faxed to PCP - Dr. Nicolle Spencer at . * Telephone Encounter - Margi Montez RN - 01/22/2015 8:35 AM EST Left voice message requesting pt to call back * Telephone Encounter - Margi Montez RN - 01/21/2015 1:44 PM EST Left voice message requesting pt to call back * Telephone Encounter - Gracie Mark MD - 01/21/2015 12:52 PM EST Patient letter has been generated Patient has slightly abnormal renal function results. Ref. Range 10/30/2014 10:10 01/20/2015 14:45 BUN Latest Range: 8-18 mg/dL 13 19 (H) Creatinine Latest Range: 0.70-1.20 mg/dL 0.96 1.17 Estimated GFR Latest Range: >=60 >60 50 (L) From Letter Your kidney function is a bit abnormal, I would recommend repeating the lab in 2 weeks. If this continues to be the case we will have to review your medications, I do not believe that this would be the result of the topamax. We will continue to monitor your labs an please let my office know if youdevelop and flank pain or blood in your urine - a marker of kidney dysfunction. PLAN: During her f/u visit patient did not report sx of renal stones Repeat labs in 2 weeks Stay well hydrated Gracie Mark MD [facility] [place] Neurology Headache Fellow documented in this encounter Plan of Treatment Upcoming Encounters Date Type Department Care Team (Late st Contact Info) Description 09/05/2024 9:00 AM EDT Office Visit [place] [address] Gema Oliveira, [facility] [address] documented as of this encounter Results * (ABNORMAL) Basic Metabolic Panel (non-fasting) (02/05/2015 12:00 PM EDT) Glucose 111 60 - 199 mg/dL CERNER MILLENNIUM Comment:Diabetes: >=200 mg/d L plus symptoms Blood Urea Nitrogen 13 8 - 18 mg/dL CERNER MILLENNIUM Creatinine 1.22(H) 0.70 - 1.20 mg/dL CERNER MILLENNIUM Comment: Please note that the pediatric reference intervals supplied above were not validated at [facility]. Results from pediatric patients should be interpreted in conjunction to the patient's age, height and muscle mass. Sodium 138 135 - 145 mmol/L CERNER MILLENNIUM Potassium 4.6 3.5 - 5.0 mmol/L CERNER MILLENNIUM Comment: Please note: ??Patients with WBC >100,000 may have falsely elevated Potassium levels. ??For accurate Potassium quantification in these patients send serum separator tube (gold top) for subsequent determinations. ??Contact the Clinical Chemistry Laboratory if there are any questions. Chloride 102 98 - 107 mmol/L CERNER MILLENNIUM Carbon Dioxide 23 22 - 31 mmol/L CERNER MILLENNIUM Anion Gap 13 5 - 15 mmol/L CERNER MILLENNIUM Calcium 9.3 8.5 - 10.5 mg/dL CERNER MILLENNIUM Est Glomerular Filtration Rate 48(L) >=60 CERNER MILLENNIUM Comment: This estimated GFR [...] the following links into your internet browser. [email or web address] Blood specimen (specimen) 02/05/2015 12:00 PM EDT 02/05/2015 12:04 PM EDT Narrative Resulting Agency Comment Spec In Lab Gracie Mark MD CHEMISTRY ORDERABLES [facility] [place] documented in this encounter Visit Diagnoses Diagnosis Abnormal renal finding- Primary Unspecified disorder of kidney and ureter documented in this encounter Care Teams Chief Of Safety And Protection Relationship Specialty Start Date End Date Nicolle Spencer MD [facility] [place] [address] PCP - General 01/21/15 12/05/16 documented as of this encounter
--- OUTSIDE RECORDS SUMMARY | 2024-07-12 00:35 | XMS_ITS | Encounter Summary ---
Author Organization [facility] Address [facility] [place] [address] Care Team Providers Care Laborer Mine Name Role Phone Nicolle Spencer MD Primary Care Provider [phone] Reason for Visit * Reason Onset Date Comments Prior Authorization 01/22/2015 NARATRIPTAN DENIED Encounter Details Date Type Department Care Team (Late st Contact Info) Description 01/22/2015 Telephone [place] [address] [facility] [place] [address] Prior Authorization (NARATRIPTAN DENIED) Social History Tobacco Use Types Packs/Day Years [...] Miscellaneous Notes * Telephone Encounter - Leah Camargo LNA - 02/18/2015 1:12 PM EDT FAX FROM [place] [employer] [place], YOUR 01/22/15 PRIOR APPROVAL HAS BEEN DENIED. WE DENIED YOUR REQUEST BECAUSE: PATIENT MUST HAVE HAD A DOCUMENTED SIDE EFFECT, ALLERGY, OR TREATMENT FAILURE WITH SUMATRIPTAN. * Telephone Encounter - Gracie Mrak MD - 02/18/2015 9:27 AM EDT Is there a reason that this is being denied stated? Patient did not tolerate Migranal Nasal spray Gracie Mark MD [facility] [place] Neurology Headache Fellow * Telephone Encounter - Leah Camargo LNA - 01/23/2015 8:27 AM EST NARATRIPTAN DENIED TRACKING # [id number] * Telephone Encounter - Suzan Guzmán - 01/22/2015 2:14 PM EST FAX REC'D STATING THAT PA FOR NARATRIPTAN WAS REC'D. * Telephone Encounter - Leah Camargo LNA - 01/22/2015 1:41 PM EST PA FOR ZOFRAN FAXED INSURANCE: [place] MEDICA[place] documented in this encounter Plan of Treatment Upcoming Encounters Date Type Department Care Team (Late st Contact Info) Description 09/05/2024 9:00 AM EDT Office Visit Internal Medicine at [address] [facility] [place] [address] documented as of this encounter Visit Diagnoses Not on filedocumented in this encounter Care Teams Laborer Mine Relationship Specialty Start Date End Date Nicolle Spencer MD [facility] [place] [address] PCP - General 01/21/15 12/05/16 documented as of this encounter
--- OUTSIDE RECORDS SUMMARY | 2024-07-12 00:35 | XMS_ITS | Encounter Summary ---
Author Organization [facility] Address [facility] [place] [address] Care Team Providers Care Veterinarian Name Role Phone Nicolle Spencer MD Primary Care Provider [phone] Encounter Details Date Type Department Care Team (Late st Contact Info) Description 02/17/2015 [place] [phone] Gracie Mark MD [facility] [place] [address] Social History Tobacco Use Types Packs/Day Years [...] Telephone Encounter - Gracie Mark MD - 02/17/2015 4:38 PM EDT Patient has increased Cr level Ref. Range 10/30/2014 10:10 01/20/2015 14:45 02/05/2015 12:00 02/08/2015 13:20 02/12/2015 14:31 Sodium Latest Range: 135-145 mmol/L 140 141 138 140 139 Potassium Latest Range: 3.5-5.0 mmol/L 4.5 4.4 4.6 4.1 4.3 Chloride Latest Range: 98-107 mmol/L 105 105 102 105 105 CO2 Latest Range: 22-31 mmol/L 24 25 23 21 (L) 23 Anion Gap Latest Range: 5-15 mmol/L 11 11 13 14 11 BUN Latest Range: 8-18 mg/dL 13 19 (H) 13 21 (H) 13 Creatinine Latest Range: 0.70-1.20 mg/dL 0.96 1.17 1.22 (H) 1.39 (H) 1.27 (H) Estimated GFR Latest Range: >=60 >60 50 (L) 48 (L) 41 (L) 46 (L) Glucose Lvl Latest Range: 60-199 mg/dL 101 118 111 92 92 Calcium Latest Range: 8.5-10.5 mg/dL 9.3 9.5 9.3 9.4 9.2 This could be the development of a renal stone with the flank pain and the increased Topamax - however she has had negative evaluation for that. PCP has been following - I spoke to Dr. Spencer They are pursuing additional evaluation Gracie Mark MD [facility] [place] Neurology Headache Fellow documented in this encounter Plan of Treatment Upcoming Encounters Date Type Department Care Team (Late st Contact Info) Description 09/05/2024 9:00 AM EDT Office Visit Internal Medicine at [address] [address] Gema Oliveira DO [facility] [place] [address] documented as of this encounter Visit Diagnoses Not on filedocumented in this encounter Care Teams Veterinarian Relationship Specialty Start Date End Date Nicolle Spencer MD [facility] [place] [address] PCP - General 01/21/15 12/05/16 documented as of this encounter
--- OUTSIDE RECORDS SUMMARY | 2024-07-12 00:35 | XMS_ITS | Encounter Summary ---
Author Organization [facility] Address [facility] [place] [address] Care Team Providers Care Speech Coach Name Role Phone Nicolle Spencer MD Primary Care Provider [phone] Encounter Details Date Type Department Care Team (Late st Contact Info) Description 06/11/2015 1:30 PM EDT - 06/11/2015 2:30 PM EDT [place] [address] Guillaume Ryan MD [facility] [place] [address] COLONOSCOPY, POLYPECTOMY, REMOVAL LESION BY SNARE (WRVU 4.57) Social History Tobacco Use Types Packs/Day Years [...] Sign Reading Time Taken Comments Blood Pressure 122/67 06/11/2015 3:09 PM EDT Pulse 79 06/11/2015 3:09 PM EDT Temperature - - Respiratory Rate 16 06/11/2015 3:09 PM EDT Oxygen Saturation 95% 06/11/2015 3:09 PM EDT Inhaled Oxygen Concentration - - Weight - - Height - - Body Mass Index - - documented in this encounter Discharge Instructions * Discharge Instructions* Ana Rosa Delgado RN - 06/11/2015 3:10 PM EDT Please call [phone] before 5pm with problems, questions or concerns, after 5pm call the Hospital at [phone] and ask to speak to the Sand Conditioner assistant director of plant operations and the deburr operator will contact that person for you. [...] cannot be sent through Care Everywhere. * COLONOSCOPY : POST-OP (GABONESE) documented in this encounter Medications at Time of Discharge Medication Sig Dispensed Refills Start Date End Date omeprazole (PRILOSEC) 40 mg Capsule, Delayed Release(E.C.) Take 1 capsule by mouth daily. 30 capsule 11 05/11/2015 08/24/2015 hydrOXYzine (VISTARIL) 25 mg Capsule Take 1 capsule by mouth 2 times daily as needed (for Mild to moderate headaches - can be taken with Naproxen sodium). 60 capsule 12 04/15/2015 07/09/2015 pramipexole (MIRAPEX) 0.5 mg TabletIndications:restl ess leg syndrome Take 0.5 mg by mouth nightly. Indications: Restless Legs Syndrome 08/10/2015 nicotine (NICODERM CQ) 7 mg/[address] 1 patch onto the skin daily. 14 patch 0 02/18/2015 07/09/2015 topiramate (TOPAMAX) 100 mg Tablet Take 1 tablet by mouth 2 times daily. 60 tablet 3 01/20/2015 07/09/2015 albuterol (PROVENTIL HFA;VENTOLIN HFA) 90 mcg/actuation HFA Aerosol InhalerIndications:Asth ma, mild intermittent, uncomplicated Inhale 2 puffs into the lungs every 4 hours as needed. Use with spacer 1 Inhaler 3 09/30/2014 08/24/2015 documented as of this encounter H&P Notes * Luis Wilson - 06/11/2015 1:27 PM EDT Gastroenterology and Hepatology Pre-Procedure History and Physical Exam Procedure: Colonoscopy: Indication: LLQ Pain, evaluate with colonoscopy Patient Active Problem List Diagnosis Code ??? [...] Hematuria, unspecified 599.70 ??? Vagina bleeding 623.8 EXAM: HEENT: Airway examined, oropharynx clear Mallampati [...] procedure explained to the patient. Consent signed. Electronically signed by: Luis Wilson Gastroenterology Fellow [facility] Pager [phone] 06/11/2015 documented in this encounter Plan of Treatment Upcoming Encounters Date Type Department Care Team (Late st Contact Info) Description 09/05/2024 9:00 AM EDT Office Visit Internal Medicine at [place] [id number] Gema Oliveira, [facility] [place] [address] documented as of this encounter Procedures Procedure Name Priority Date/Time Associated Diagnosis Comments SURGICAL PATHOLOGY REPORT Routine 06/11/2015 2:55 PM EDT SPECIMEN TO PATHOLOGY Routine 06/11/2015 2:55 PM EDT COLONOSCOPY, POLYPECTOMY, REMOVAL LESION BY SNARE (WRVU 4.57) 06/11/2015 2:05 PM EDT Other constipation Abdominal pain, LLQ (left lower quadrant) COLONOSCOPY Routine 06/11/2015 1:33 PM EDT documented in this encounter Results * Surgical Pathology Report (06/11/2015 2:55 PM EDT) Final Diagnosis ? [facility] ? Provider: ?? GUILLAUME RYAN ??Pt. Name: ?? TRACIE HAYDEN ?Y ? Acc #: ?[id number] ?Pt. ? Col Date: ?? 06/11/2015 ? /Sex: ?1970,(44 years),Female ? Rec Date: ?? 06/11/2015 ? LOC: ?4T ? SURGICAL PATHOLOGY ? ---Pathologic Diagnosis--- ? Sigmoid colon, polypectomy: ?- Hyperplastic polyp. ? CR-0, CR-PX ? 06/12/15 ? BJM ? 06/12/15 Verified by: ? Keith Perez MD ? Pathologist ? (Electronic Signature) ? The attending pathologist whose signature appears on this report has ? reviewed all diagnostic slides and has edited the gross and/or ? microscopic portion of the report in rendering the final pathologic ? diagnosis. ? ---Gross Description--- ? A - Labeled/Fixative : Sigmoid colon, 5 mm polyp, formalin. ? Quantity/Size: Single, 0.4 x 0.3 x 0.2 cm. ? Tissue Description: Polypoid, pink-ratliff tissue. ? Sections/Process ing: (T1) ??ejr ? ---Clinical Information--- ? Specimen Submitted: ? A - Sigmoid colon, 5 mm polyp ? Clinical History: ? LLQ pain ? Clinical Diagnosis: ? Same 06/12/2015 1:48 PM EDT [facility] GI Biopsy 06/11/2015 2:55 PM EDT 06/11/2015 2:55 PM EDT Guillaume Ryan MD PATHOLOGY/CYTOLOG Y ORDERABLES Performing Organization Address City/State/[facility] Co de Phone Number [facility] [place] [address] * Specimen to Pathology (surgical or derm) (06/11/2015 2:55 PM EDT) AP Specimen 06/11/2015 2:55 PM EDT 06/11/2015 2:55 PM EDT [facility] - 06/11/2015 2:55 PM EDT Specimen requisition ordered. ??Separate Pathology report to follow Guillaume Ryan MD PATHOLOGY/CYTOLOG Y ORDERABLES [facility] * COLONOSCOPY (06/11/2015 1:33 PM EDT) COLONOSCOPY [facility] Endoscopy Patient Name: Tracie Hayden ? Procedure Date: 06/11/2015 1:33 PM ? Date of : 1970 ? Age: 44 ? Order #: [id number] ? Procedure: ? Colonoscopy Indications: ? Abdominal pain in the left lower ? quadrant Providers: ? Julee Kuhn ? Ori Mtz, ? Pewter Finisher Referring MD: ?Nicolle Spencer MD, Tracia ? MD Luis A Medicines: ? Midazolam [...] the physician, the nurse and the ? voip network technician in the pre-procedure area ? in [...] specimen was done by the physician and voip network technician ? using the patient's name, date [...] personally performed the entire procedure. ? _ Guillaume Ryan, 06/11/2015 3:11 PM Number of Addenda: 0 Note Initiated On: 06/11/2015 1:33 PM PROVATION 06/11/2015 1:33 PM EDT Nicolle Spencer MD GENERAL SURGICAL ORD ERABLES PROVATION documented in this encounter Visit Diagnoses Diagnosis Other constipation Abdominal pain, LLQ (left lower quadrant) Abdominal pain, left lower quadrant documented in this encounter Administered Medications Inactive Administered Medications - up to 3 most recent administrations Medication Order MAR Action Action Date Dose Rate Site fentaNYL 50 mcg/mL multi-dose injection ONCE PRN, Starting on Denita 06/11/15 at 1409, Until Denita 06/11/15 at 1622, Intra-Operative (Intra-Procedure), Routine Given 06/11/2015 2:25 PM EDT 25 mcg Given 06/11/2015 2:17 PM EDT 50 mcg Given 06/11/2015 2:14 PM EDT 50 mcg lactated ringers infusion 100 mL/hr, Intravenous, CONTINUOUS, Starting on Denita 06/11/15 at 1330, Until Denita 06/11/15 at 1622, Endoscopy (Day of Procedure) New Bag 06/11/2015 1:29 PM EDT 100 mL/hr 100 mL/hr midazolam (PF) (VERSED) 1 mg/mL multi-dose injection ONCE PRN, Starting on Denita 06/11/15 at 1409, Until Denita 06/11/15 at 1622, Intra-Operative (Intra-Procedure), Routine Given 06/11/2015 2:25 PM EDT 1 mg Given 06/11/2015 2:17 PM EDT 1 mg Given 06/11/2015 2:14 PM EDT 1 mg documented in this encounter Active and Recently Administered Medications Times are shown in EDT. Continuous Medication Order 06/09/2015 06/10/2015 06/11/2015 lactated ringers infusion (CANCELED) 100 mL/hr, Intravenous, CONTINUOUS, Starting on Denita 06/11/15 at 1330, Until Denita 06/11/15 at 1622, Endoscopy (Day of Procedure) 1329 (New Bag - Prov ider: Carole Hutchison, VEL) PRN Medication Order 06/09/2015 06/10/2015 06/11/2015 fentaNYL 50 mcg/mL multi-dose injection (CANCELED) ONCE PRN, Starting on Denita 06/11/15 at 1409, Until Denita 06/11/15 at 1622, Intra-Operative (Intra-Procedure), Routine 1409 (Given - Provid er: Julee Mtz RN)1411 (Given - Provider: Julee Mtz RN)1414 (Given - Provider: Julee Mtz RN)1417 (Given - Provider: Julee Mtz, RN)1425 (Given - Provider: Julee Mtz, RN) midazolam (PF) (VERSED) 1 mg/mL multi-dose injection (CANCELED) ONCE PRN, Starting on Denita 06/11/15 at 1409, Until Denita 06/11/15 at 1622, Intra-Operative (Intra-Procedure), Routine 1409 (Given - Provid er: Julee tMz RN)1411 (Given - Provider: Julee Mtz, RN)1414 (Given - Provider: Julee Mtz, RN)1417 (Given - Provider: Julee Mtz, RN)1425 (Given - Provider: Julee Mtz, RN) documented in this encounter Care Teams Speech Coach Relationship Specialty Start Date End Date Nicolle Spencer MD [facility] [place] [address] PCP - General 01/21/15 12/05/16 documented as of this encounter
--- OUTSIDE RECORDS SUMMARY | 2024-07-12 00:35 | XMS_ITS | Encounter Summary ---
[place] [address] Care Team Providers Care Application Systems Architect Name Role Phone Nicolle Spencer MD Primary Care Provider [phone] Reason for Visit * Reason Onset Date Comments Letter Request From Patient 06/08/2015 Encounter Details Date Type Department Care Team (Late st Contact Info) Description 06/08/2015 Telephone Internal Medicine at [address] [address] Siobhan Hernandez Letter Request From Patient Social History Tobacco Use Types Packs/Day Years [...] encounter Miscellaneous Notes * Telephone Encounter - Siobhan Hernandez - 06/08/2015 9:10 AM EDT Message: Patient's daughter, Monet, called. Requesting a letter to verify identity in regards to replacing a social security card. It needs to have her age, , address, and social security number on letter head. Monet would like to pick this up today if possible. Please call when ready to curing pickling packer. Caller (if other than patient-full name): Monet Relationship (if other than patient): daughter (mother's phone number - Tracie, patient) Best time to call back: any Ok to leave a message: [ Yes ] Ok to send my- message [No] Attempted to contact Nurse [ No] documented in this encounter Plan of Treatment Upcoming Encounters Date Type Department Care Team (Late st Contact Info) Description 09/05/2024 9:00 AM EDT Office Visit Internal Medicine at [address] [address] Gema Oliveira DO [facility] [address] documented as of this encounter Visit Diagnoses Not on filedocumented in this encounter Care Teams Application Systems Architect Relationship Specialty Start Date End Date Nicolle Spencer MD [facility] [address] [place] [address] PCP - General 01/21/15 12/05/16 documented as of this encounter
--- OUTSIDE RECORDS SUMMARY | 2024-07-12 00:35 | XMS_ITS | Encounter Summary ---
Author Organization [facility] Address [facility] [place] [address] Care Team Providers Care Cage Loader Name Role Phone Nicolle Spencer MD Primary Care Provider Encounter Details Date Type Department Care Team (Late st Contact Info) Description 06/11/2015 12:35 PM EDT - 06/11/2015 4:35 PM EDT Hospital Encounter [place] [address] Frank Cisneros MD [facility] [place] [address] Guillaume Ryan MD [facility] [place] [address] Discharge Disposition: Home Social History Tobacco Use [...] - 06/11/2015 3:10 PM EDT Please call [phone] before 5pm with problems, questions or concerns, after 5pm call the Hospital at [phone] and ask to speak to the Business Owner/Engineer store loss prevention manager and the burner operator will contact that person for you. [...] through Care Everywhere. * COLONOSCOPY : POST-OP (ITALIAN) documented in this encounter Medications at Time [...] Electronically signed by: Luis Wilson Gastroenterology Fellow [facility] [place] [place] Pager [phone] 06/11/2015 documented in this encounter Plan of Treatment Upcoming Encounters Date Type Department Care Team (Late st Contact Info) Description 09/05/2024 9:00 AM EDT Office Visit Internal Medicine at [place] [phone] Gema Oliveira, [facility] INTERNAL MEDICINE [place] [phone] documented as of this encounter Procedures Procedure [...] (06/11/2015 2:55 PM EDT) Final Diagnosis ? [facility] ? Provider: ?? GUILLAUME RYAN ??Pt. Name: ?? TRACIE HAYDEN ?Y ? Acc #: ?[id number] ?Pt. ? Col Date: ?? 06/11/2015 ? [...] Diagnosis: ? Same 06/12/2015 1:48 PM EDT [facility] GI Biopsy 06/11/2015 2:55 PM EDT 06/11/2015 2:55 PM EDT Guillaume Ryan MD PATHOLOGY/CYTOLOG Y ORDERABLES [facility] [address] * Specimen to Pathology (surgical or derm) (06/11/2015 2:55 PM EDT) AP Specimen 06/11/2015 2:55 PM EDT 06/11/2015 2:55 PM EDT Narrative [facility] - 06/11/2015 2:55 PM EDT Specimen requisition ordered. ??Separate Pathology report to follow Guillaume Ryan MD PATHOLOGY/CYTOLOG Y ORDERABLES [facility] * COLONOSCOPY (06/11/2015 1:33 PM EDT) COLONOSCOPY [facility] Endoscopy Patient Name: Tracie Hayden ? Procedure Date: 06/11/2015 1:33 PM ? N: [id number] ? Date of : 1970 ? Age: 44 ? Order #: [id number] ? Procedure: ? Colonoscopy Indications: ? Abdominal pain in the left lower ? quadrant Providers: ? Julee Kuhn ? Ori Mtz, ? Art Critic Referring MD: ?Nicolle Spencer MD, Tracia ? [...] the physician, the nurse and the ? electrical controls technician in the pre-procedure area ? in [...] specimen was done by the physician and electrical controls technician ? using the patient's name, date [...] performed the entire procedure. ? _ Guillaume Connor, 06/11/2015 3:11 PM Number of Addenda: 0 Note Initiated On: 06/11/2015 1:33 PM PROVATION 06/11/2015 1:33 PM EDT Nicolle Spencer MD GENERAL SURGICAL ORD ERABLES PROVATION documented in this encounter Visit Diagnoses Not on filedocumented in this encounter Administered Medications Inactive Administered Medications - up to 3 most recent administrations Medication Order MAR Action Action Date Dose Rate Site lactated ringers infusion 100 mL/hr, Intravenous, CONTINUOUS, Starting on Denita 06/11/15 at 1330, Until Denita 06/11/15 at 1622, Endoscopy (Day of Procedure) New Bag 06/11/2015 1:29 PM EDT 100 mL/hr 100 mL/hr documented in this encounter Active and Recently Administered Medications Times are shown in EDT. Continuous Medication Order 06/09/2015 06/10/2015 06/11/2015 lactated ringers infusion (CANCELED) 100 mL/hr, Intravenous, CONTINUOUS, Starting on Denita 06/11/15 at 1330, Until Denita 06/11/15 at 1622, Endoscopy (Day of Procedure) 1329 (New Bag - Prov ider: Carole Hutchison RN) PRN Medication Order 06/09/2015 06/10/2015 06/11/2015 fentaNYL [...] Julee Mtz RN)1414 (Given - Provider: Julee Mtz, RN)1417 (Given - Provider: Julee Mtz, RN)1425 (Given - Provider: Julee Mtz, RN) documented in this encounter Care Teams Cage Loader Relationship Specialty Start Date End Date Nicolle Spencer MD [facility] [address] [place] [address] PCP - General 01/21/15 12/05/16 documented as of this encounter
--- OUTSIDE RECORDS SUMMARY | 2024-07-12 00:35 | XMS_ITS | Encounter Summary ---
Author Organization [facility] Address [facility] [place] [address] Care Team Providers Care Laser Specialist Name Role Phone Nicolle Spencer MD Primary Care Provider [phone] Reason for Visit * Reason Comments GI Problem Encounter Details Date Type Department Care Team (Late st Contact Info) Description 05/11/2015 8:00 AM EDT Office Visit [place] [address] Scotty Gunn APRN [facility] [place] [address] Abdominal pain, LLQ (left lower quadrant); Other constipation Discharge Disposition: Home Social History Tobacco Use [...] Sign Reading Time Taken Comments Blood Pressure 136/87 05/11/2015 8:08 AM EDT Pulse 103 05/11/2015 8:08 AM EDT Temperature - - Respiratory Rate - - Oxygen Saturation - - Inhaled Oxygen Concentration - - Weight 119.5 kg (263 lb 8 oz) 05/11/2015 8:08 AM EDT Height 177.8 cm (5' 10) 05/11/2015 8:08 AM EDT Body Mass Index 37.81 05/11/2015 8:08 AM EDT documented in this encounter Progress Notes * Scotty Gunn RN - 05/11/2015 8:17 AM EDT Section of Gastroenterology and Hepatology [address] [place] [address] .Tracie Layton : 1970 Patient is here for further evaluation of gastrointestinal symptoms at the request of Nicolle Spencer MD. HPI: For about a year the patient has been experiencing llq pain. No changes at time of onset. Occurs daily. Does not radiate. Intermittent in nature. Unable to identify triggers or pattern to her sx. Does not improve with passage of stool or flatus. Acute onset. Describes it as a sharp stabbing pain. Has not tried any medication. January 2015, [facility], [facility] and abdominal/pelvic CT. Both exams were unrevealing for etiology of llq sx. Stools can be hard and she has to strain. Has a stool qod. Stools can be pellet like at times. No blood in stool. No mucus in stools. No fecal incontinence. This has always been her stool pattern. No significant gas. Bloating is diet dependent for her. No chronic nsaids. No food allergies. No pre/post-prandial sx. Reviewed diet. Usually does not eat breakfast. Eats mostly meat/potatoes. Salads. Less fruit. Fluids: water. At times eats late at night, few times per week. 2014: upper endoscopy, [facility]. Esophagogastric landmarks were identified: the Z-line was found at 39 cm and the site of hiatal narrowing was found at 40 cm from the incisors. Mild Esophagitis was found. Biopsies were taken with a cold forceps for histology. The stomach was normal. The examined duodenum was normal. Impression: - Reflux esophagitis. Biopsied. - Normal stomach. - Normal examined duodenum. Recommendation: - Await pathology results. - Follow an antireflux regimen. - Continue present medications. Bx: Squamocolumnar junction @ 39 cm, biopsy: - Esophageal squamous and gastric cardia-type mucosa with nonspecific active cardio-esophagitis. - Scattered intraepithelial eosinophils are present, suggestive of reflux etiology. - No intestinal metaplasia is seen. Daily heartburn and regurgitation. Taking tums at this time. tums with some relief. Tried otc pepcic prn with some relief. Usually occurs at night, awakes her. Difficulty swallowing when heartburn issevere. Has awoken in the night, throwing up acid. no chest pain. No ent concerns. History Social History ??? Marital Status: Single Spouse Name: N/A Number of Children: N/A ??? Years of Education: N/A Occupational History ??? Not on file. Social History Main Topics ??? Smoking status: Current Every Day Smoker -- 0.25 packs/day for 25 years Types: Cigarettes ??? Smokeless tobacco: Never Used ??? Alcohol Use: No Comment: rarely/ seldom ??? Drug Use: No ??? Sexual Activity: Partners: Male Other Topics Concern ??? 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 Bactrim [Sulfamethoxazole-Trimethoprim] Anaphylaxis ??? Aleve [Naproxen Sodium] Rash ??? Keflex [Cephalexin] Other (See Comments) Racing heart ??? Meloxicam Nausea Only Current outpatient prescriptions:hydrOXYzine (VISTARIL) 25 mg Capsule, Take 1 capsule by mouth 2 times daily as needed (for Mild to moderate headaches - can be taken with Naproxen sodium)., Disp: 60 capsule, Rfl: 12; pramipexole (MIRAPEX) 0.5 mg Tablet, Take 0.5 mg by mouth nightly. Indications: Restless Legs Syndrome, Disp: , Rfl: ; nicotine (NICODERM CQ) 7 mg/24 hr Patch 24 hr, Place 1 patch onto the skin daily., Disp: 14 patch, Rfl: 0 topiramate (TOPAMAX) 100 mg Tablet, Take 1 tablet by mouth 2 times daily., Disp: 60 tablet, Rfl: 3;albuterol (PROVENTIL HFA;VENTOLIN HFA) 90 mcg/actuation HFA Aerosol Inhaler, Inhale 2 puffs into the lungs every 4 hours as needed. Use with spacer, Disp: 1 Inhaler, Rfl: 3 Review of Systems - Negative except General: Cardiac: Resp: asthma, controlled, trying to quit smoking. Will be asking pcp for stronger patch at next visit GI: see above : MS: Neuro: topamax for headaches Skin: Psyche: Sleep: Endo: Physical Exam: Soft, tender in llq, no mass,organomegaly Impression: 1. LLQ pain, of unclear etiology but seems functional. ?constipation. kub today. Given longevity ofsx, consider colonoscopy. 2. Gerd: omeprazole 40mg qd, 30 minutes before breakfast. Gerd diet and lifestyle modifications. 3. Gif in 4-6 weeks. I spent a total of 52 minutes face to face with this patient; 32 minutes were spent counseling the patient in the medical problems described above. Sincerely, Scotty Gunn NP Section of Gastroenterology and Hepatology documented in this encounter Plan of Treatment Upcoming Encounters Date Type Department Care Team (Late st Contact Info) Description 09/05/2024 9:00 AM EDT Office Visit Internal Medicine at [place] [phone] [facility] [place] [address] Scheduled Orders Name Type Priority Associated Diagnoses Orde r Schedule COLONOSCOPY Procedures Routine Abdominal pain, LLQ (left lower quadrant) Other constipation Ordered: 05/11/2015 documented as of this encounter Results * XR abdomen 1 view (05/11/2015 9:01 AM EDT) Anatomical Region Laterality Modality Abdomen N/A Radiographic Tawnya ging 05/11/2015 9:01 AM EDT Impressions 05/11/2015 9:11 AM EDT IMPRESSION: Normal bowel gas pattern. Narrative 05/11/2015 9:11 AM EDT EXAMINATION: DIAG ABDOMEN SINGLE VIEW CLINICAL HISTORY: llq pain, constipation TECHNIQUE: Supine abdomen COMPARISON: None FINDINGS: There is a relatively small amount of gas and stool present in a nondistended colon. There are no dilated loops of small bowel. Procedure Note Rickie Gregg MD - 05/11/2015 EXAMINATION: DIAG ABDOMEN SINGLE VIEW CLINICAL HISTORY: llq pain, constipation TECHNIQUE: Supine abdomen COMPARISON: None FINDINGS: There is a relatively small amount of gas and stool present in anondistended colon. There are no dilated loops of small bowel. IMPRESSION IMPRESSION: Normal bowel gas pattern. Frank Cisneros MD IMG DX ORDERABLES documented in this encounter Visit Diagnoses Diagnosis Abdominal pain, LLQ (left lower quadrant) Abdominal pain, left lower quadrant Other constipation Abdominal pain, LLQ (left lower quadrant) Abdominal pain, left lower quadrant Other constipation documented in this encounter Care Teams Laser Specialist Relationship Specialty Start Date End Date Nicolle Spencer MD [facility] [place] [address] PCP - General 01/21/15 12/05/16 documented as of this encounter
--- OUTSIDE RECORDS SUMMARY | 2024-07-12 00:35 | XMS_ITS | Encounter Summary ---
[place] [address] Care Team Providers Care Print Line Supervisor Name Role Phone Nicolle Spencer MD Primary Care Provider [phone] Reason for Visit * Reason Onset Date Comments Triage 02/13/2015 Encounter Details Date Type Department Care Team (Late st Contact Info) Description 02/13/2015 Telephone Internal Medicine at [address] [address] Roxy Allred Triage Social History Tobacco Use Types Packs/Day [...] Telephone Encounter - Miladis Tucker RN - 02/13/2015 1:10 PM EDT Discussed with Dr. Hooker who has seen her for this condition and she said that it was appropriateto reorder until she is able to see Dr. Spencer. * Telephone Encounter - Roxy Allred - 02/13/2015 10:45 AM EDT Pt called was wondering if Miriam Miller, PA would be willing to write her a HYDROcodone-acetaminophen 5-325 mg Tablet prescription until she sees DR. Spencer on 02/18, still in a lot of pain. Thank you,Roxy documented in this encounter Plan of Treatment Upcoming Encounters Date Type Department Care Team (Late st Contact Info) Description 09/05/2024 9:00 AM EDT Office Visit Internal Medicine at [address] [address] Gema Oliveira, [facility] [place] [address] documented as of this encounter Visit Diagnoses Not on filedocumented in this encounter Care Teams Print Line Supervisor Relationship Specialty Start Date End Date Nicolle Spencer MD [facility] [address] INTERNAL [facility] [place] [address] PCP - General 01/21/15 12/05/16 documented as of this encounter
--- OUTSIDE RECORDS SUMMARY | 2024-07-12 00:35 | XMS_ITS | Encounter Summary ---
Author Organization [facility] [place] [address] Care Team Providers Care Molecular Geneticist Name Role Phone Nicolle Spencer MD Primary Care Provider [phone] Reason for Visit * Reason Comments Ankle Injury Encounter Details Date Type Department Care Team (Late st Contact Info) Description 07/21/2015 11:51 AM EDT - 07/21/2015 1:40 PM EDT Emergency [place] [address] EMERGENCY DEPT, [facility] [address] Ankle sprain, left, initial encounter Discharge Disposition: Home Social History Tobacco Use [...] Sign Reading Time Taken Comments Blood Pressure 150/76 07/21/2015 11:59 AM EDT Pulse 100 07/21/2015 11:59 AM EDT Temperature 36.7 ??C (98.1 ??F) 07/21/2015 11:59 AM E DT Respiratory Rate 20 07/21/2015 11:59 AM EDT Oxygen Saturation 97% 07/21/2015 11:59 AM EDT Inhaled Oxygen Concentration - - Weight 118.8 kg (262 lb) 07/21/2015 11:59 AM EDT Height - - Body Mass Index 37.59 07/09/2015 9:13 AM EDT documented in this encounter Discharge Instructions * Discharge Instructions* Bharat Feliz PA - 07/21/2015 1:30 PM EDT Ice and elevate to reduce pain and swelling. Tylenol primarily for pain. Where your Aircast for the next 10-14 days. Weight-bear as tolerated so initially you may use crutches and gradually increase your weightbearing as able. Reevaluate with any new or worsening symptoms. * Attachments The following attachments cannot be sent through Care Everywhere. * ANKLE SPRAIN (BELGIAN) * ANKLE : EXERCISES (BELGIAN) documented in this encounter Medications at Time of Discharge Medication Sig Dispensed Refills Start Date End Date citalopram (CELEXA) 20 mg Tablet Take 1 tablet by mouth daily. May increase to 30 mg daily after 2 weeks. 60 tablet 3 07/09/2015 08/10/2015 omeprazole (PRILOSEC) 40 mg Capsule, Delayed Release(E.C.) Take 1 capsule by mouth daily. 30 capsule 11 05/11/2015 08/24/2015 pramipexole (MIRAPEX) 0.5 mg TabletIndications:restle ss leg syndrome Take 0.5 mg by mouth nightly. Indications: Restless Legs Syndrome 08/10/2015 albuterol (PROVENTIL HFA;VENTOLIN HFA) 90 mcg/actuation HFA Aerosol InhalerIndications:Asthm a, mild intermittent, uncomplicated Inhale 2 puffs into the lungs every 4 hours as needed. Use with spacer 1 Inhaler 3 09/30/2014 08/24/2015 documented as of this encounter ED Notes * Bharat Feliz PA - 07/21/2015 1:26 PM EDT CC: Ankle Pain HPI: Tracie Layton is a 44 y.o. female who presents with ankle pain. The pain is lateral on the left ankle and described as moderate throbbing pain which started today. Exacerbating factors: weight bearing. History of injury to the affected ankle: no, twisting injury. Associated neurological complaints: none. Ability to Ambulate: cannot bear weight due to pain. Previous treatments: elevation. History of prior injury to the affected ankle: No: no. PMH: Past Medical History Diagnosis Date ??? Chronic back pain ??? Asthma ??? Depression hx suicide attempt ??? Anxiety ??? Restless legs syndrome (RLS) ??? History of cervical cancer 2001 s/p LEEP??? in [place] ??? Hyperlipidemia ??? HTN (hypertension) ??? Agoraphobia ??? ADHD (attention deficit hyperactivity disorder) ??? Alcohol abuse ??? GERD (gastroesophageal reflux disease) ??? Post-traumatic headache 09/29/2014 ??? H/O suicide attempt 10/29/2014 Overdose in 1999 ??? S/P tubal ligation 10/29/2014 ??? Cervical cancer 10/29/2014 Per pt in 2001, in [place], negative paps since? MEDS: No current facility-administered medications for this encounter. Current outpatient prescriptions: citalopram (CELEXA) 20 mg Tablet, Take 1 tablet by mouth daily. May increase to 30 mg daily after 2 weeks., Disp: 60 tablet, Rfl: 3; omeprazole (PRILOSEC) 40 mg Capsule, Delayed Release(E.C.), Take 1 capsule by mouth daily., Disp: 30 capsule, Rfl: 11; pramipexole (MIRAPEX) 0.5 mg Tablet, Take 0.5 mg by mouth nightly. Indications: Restless Legs Syndrome, Disp: , Rfl: albuterol (PROVENTIL HFA;VENTOLIN HFA) 90 mcg/actuation HFA Aerosol Inhaler, Inhale 2 puffs into the lungs every 4 hours as needed. Use with spacer, Disp: 1 Inhaler, Rfl: 3 ALL: Allergies Allergen Reactions ??? Bactrim [Sulfamethoxazole-Trimethoprim] Anaphylaxis ??? Aleve [Naproxen Sodium] Rash ??? Keflex [Cephalexin] Other (See Comments) Racing heart ??? Meloxicam Nausea Only SOCIAL HX: History Social History ??? Marital Status: Single Spouse Name: N/A Number of Children: N/A ??? Years of Education: N/A Social History Main Topics ??? Smoking status: Current Every Day Smoker -- 1.00 packs/day for 25 years Types: Cigarettes ??? Smokeless tobacco: Never Used ??? Alcohol Use: Yes Comment: socially ??? Drug Use: No ??? Sexual Activity: Partners: Male Other Topics Concern ??? 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 PHYSICAL EXAM: Vitals: BP 150/76 mmHg Pulse 100 Temp(Src) 36.7 ??C (98.1 ??F) (Oral) Resp 20 Wt 118.842 kg(262 lb) SpO2 97% Gen: Well appearing female in NAD HEENT: Atraumatic Cardiovascular: Regular rhythm without murmurs, rubs or gallops Pulmonary: CTAB Extremities: left ankle. Obvious deformity: no; Skin: normal; Swelling: mild; Warmth: no warmth; Tenderness: moderate and over TAF and CFL, non tender over mey navicular or any areas of the foot; ROM: normal; Strength: normal; Stability: stable to testing; Neurological testing: normal; Vascular Exam: normal. Knee tenderness: No: no. ED COURSE: Nursing notes an vitals reviewed Ankle X-ray (I personally reviewed all images): soft tissue swelling, no fracture. Radiology reading is reviewed and is:IMPRESSION: No definite fracture or dislocation. The navicular appears prominent in the AP and mortise projections. This may be due to the presence of an accessory ossicle. Analgesics given: none Orthopedics consulted: No: no Other treatments/procedures: none MEDICAL DECISION MAKING: Acute ankle injury likely representing sprain. No radiographic evidence tosuggest fracture. No complicating neurovascular injury suspected based on exam. ASSESSMENT: Ankle sprain PLAN: Natural history and expected course discussed. Questions answered. Rest, ice, compression, elevation (RICE) therapy. Crutches and instructions provided. Educational materials distributed. Fit with ankle brace for use over next 10 days. OTC analgesics as needed. Follow-up with PCP in 10 days. Patient has no evidence of injury to the foot despite radiology findings of unusual appearance to the navicular, patient is nontender over that area. Bharat Feliz PA 07/21/15 1329 documented in this encounter Miscellaneous Notes * ED Triage - Bella Meyer RN - 07/21/2015 12:00 PM EDT Pt. Was wearing flipflops, stepped wrong and internally rolled left ankle. +pain +swelling--+ CSM. documented in this encounter Plan of Treatment Upcoming Encounters Date Type Department Care Team (Late st Contact Info) Description 09/05/2024 9:00 AM EDT Office Visit Internal Medicine at [place] [id number] [facility] [place] [address] documented as of this encounter Procedures Procedure Name Priority Date/Time Associated Diagnosis Comments XR ANKLE MINIMUM 3 VIEWS STAT 07/21/2015 12:17 PM EDT documented in this encounter Results * XR Ankle Minimum 3 Views (07/21/2015 12:17 PM EDT) Anatomical Region Laterality Modality Ankle N/A Radiographic Tawnya ging 07/21/2015 12:1 7 PM EDT Impressions 07/21/2015 12:49 PM EDT IMPRESSION: No definite fracture or dislocation. The navicular appears prominent in the AP and mortise projections. This may be due to the presence of an accessory ossicle. This result was transmitted to the Emergency Department at the time of interpretation. Narrative 07/21/2015 12:49 PM EDT EXAMINATION: ANKLE MIN 3 VIEWS/LEFT CLINICAL HISTORY: internally rotated left ankle +pain +swelling TECHNIQUE: AP, oblique and lateral of the left ankle COMPARISON: None FINDINGS: No definite fracture or dislocation is seen. The ankle mortise is congruent. The navicular appears prominent in the AP and mortise projections. It is possible that this represents an accessory ossicle. If concern for a midfoot injury exists, please consider a dedicated radiographic examination of the foot. Procedure Note Valente Schaeffer MD - 07/21/2015 EXAMINATION: ANKLE MIN 3 VIEWS/LEFT CLINICAL HISTORY: internally rotated left ankle +pain +swelling TECHNIQUE: AP, oblique and lateral of the left ankle COMPARISON: None FINDINGS: No definite fracture or dislocation is seen. The ankle mortise iscongruent. The navicular appears prominent in the AP and mortise projections. It is possible that this represents an accessory ossicle. If concern for amidfoot injury exists, please consider a dedicated radiographic examination of thefoot. IMPRESSION IMPRESSION: No definite fracture or dislocation. The navicular appears prominent in the AP and mortise projections. Thismay be due to the presence of an accessory ossicle. This result was transmitted to the Emergency Department at the time of interpretation. Joseph Vasquez MD IMG DX ORDERABLES documented in this encounter Visit Diagnoses Diagnosis Ankle sprain, left, initial encounter documented in this encounter Care Teams Molecular Geneticist Relationship Specialty Start Date End Date Nicolle Spencer MD [facility] [address] [place] [address] PCP - General 01/21/15 12/05/16 documented as of this encounter
--- OUTSIDE RECORDS SUMMARY | 2024-07-12 00:35 | XMS_ITS | Encounter Summary ---
Author Organization [facility] Address [facility] [place] [address] Care Team Providers Care Career Development Engineer Name Role Phone Nicolle Spencer MD Primary Care Provider Encounter Details Date Type Department Care Team (Latest Contact Info) Description 02/12/2015 2:20 PM EDT - 02/12/2015 11:59 PM EDT Hospital [place] [address] Nicolle Spencer MD [facility] [place] [address] Abnormal kidney function Discharge Disposition: Home Social History Tobacco Use [...] Refills Start Date End Date pramipexole (MIRAPEX) 0.125 mg Tablet TAKE 1 TABLET BY MOUTH 2 TO 3 HOURS BEFORE BEDTIME X 1 WEEK, MAY INCREASE TO 2 TABLETS BY MOUTH AFTER 1 WEEK IF NEEDED 60 tablet 0 02/11/2015 02/16/2015 ondansetron (ZOFRAN) 4 mg Tablet Take 1 tablet by mouth every 8 hours as needed for Nausea. 20 tablet 0 02/09/2015 03/09/2015 HYDROcodone-acetamin ophen 5-325 mg Tablet Take 1 tablet by mouth nightly as needed for Pain. 10 tablet 0 02/09/2015 02/13/2015 cloNIDine HCl (CATAPRES) 0.1 mg Tablet Take 1 tablet by mouth nightly as needed (for anxiety associated nightmares). Take 1-2 tab at night 60 tablet 3 01/26/2015 03/09/2015 venlafaxine (EFFEXOR-XR) 75 mg Capsule, Sust. Release 24 hr Take 1 capsule by mouth every morning. Take 1 cap for the first 7 days, then increase to 2 cap. 7 capsule 0 01/26/2015 03/09/2015 venlafaxine (EFFEXOR-XR) 150 mg Capsule, Sust. Release 24 hr Take 1 capsule by mouth daily. 23 capsule 0 02/02/2015 03/09/2015 topiramate (TOPAMAX) 100 mg Tablet Take 1 tablet by mouth 2 times daily. 60 tablet 3 01/20/2015 07/09/2015 naratriptan (AMERGE) 2.5 mg Tablet Take 1 tablet by mouth as needed for Migraine. 9 tablet 3 01/20/2015 02/18/2015 fluticasone-salmeter ol (ADVAIR) 100-50 mcg/dose Disk with DeviceIndications:As thma, mild intermittent, uncomplicated Inhale 1 puff into the lungs every 12 hours. 1 Inhaler 3 09/30/2014 02/18/2015 albuterol (PROVENTIL HFA;VENTOLIN HFA) 90 mcg/actuation HFA Aerosol InhalerIndications:A sthma, mild intermittent, uncomplicated Inhale 2 puffs into the lungs every 4 hours as needed. Use with spacer 1 Inhaler 3 09/30/2014 08/24/2015 hydrOXYzine (VISTARIL) 25 mg Capsule Take 1 capsule by mouth 2 times daily as needed (for Mild to moderate headaches - can be taken with Naproxen sodium). 60 capsule 12 09/29/2014 03/09/2015 promethazine (PHENERGAN) [address] 1-2 suppositories rectally every 6 hours as needed (Nausea with headache). 15 suppository 5 09/29/2014 03/09/2015 gabapentin (NEURONTIN) 600 mg TabletIndications:Po sttraumatic headache,Cervicalgia Take 1 tablet by mouth 3 times daily. 90 tablet 1 09/19/2014 02/18/2015 baclofen (LIORESAL) 10 mg TabletIndications:Po sttraumatic headache,Cervicalgia Take 10-20 mg nightly for neck and sleep and 10 mg twice daily as needed. 90 tablet 1 09/19/2014 03/09/2015 documented as of this encounter Plan of Treatment Upcoming Encounters Date Type Department Care Team (Late st Contact Info) Description 09/05/2024 9:00 AM EDT Office Visit Internal Medicine at [place] [phone] Gema Oliveira, [facility] [place] [address] documented as of this encounter Procedures Procedure Name Priority Date/Time Associated Diagnosis Comments BASIC METABOLIC PANEL Routine 02/12/2015 2:31 PM EDT Abnormal kidney function documented in this encounter Results * (ABNORMAL) Basic Metabolic Panel (non-fasting) (02/12/2015 2:31 PM EDT) [facility] Glucose 92 60 - 199 mg/dL CERNER MILLENNIUM Comment:Diabetes: >=200 mg/d L plus symptoms Blood Urea Nitrogen 13 8 - 18 mg/dL CERNER MILLENNIUM Creatinine 1.27(H) 0.70 - 1.20 mg/dL CERNER MILLENNIUM Comment: Please note that the pediatric reference intervals supplied above were not validated at [facility]. Results from pediatric patients should be interpreted in conjunction to the patient's age, height and muscle mass. Sodium 139 135 - 145 mmol/L CERNER MILLENNIUM Potassium 4.3 3.5 - 5.0 mmol/L CERNER MILLENNIUM Comment: Please note: ??Patients with WBC >100,000 may have falsely elevated Potassium levels. ??For accurate Potassium quantification in these patients send serum separator tube (gold top) for subsequent determinations. ??Contact the Clinical Chemistry Laboratory if there are any questions. Chloride 105 98 - 107 mmol/L CERNER MILLENNIUM Carbon Dioxide 23 22 - 31 mmol/L CERNER MILLENNIUM Anion Gap 11 5 - 15 mmol/L CERNER MILLENNIUM Calcium 9.2 8.5 - 10.5 mg/dL CERNER MILLENNIUM Est Glomerular Filtration Rate 46(L) >=60 CERNER MILLENNIUM Comment: This estimated GFR [...] the following links into your internet browser. [email or web address] Blood specimen (specimen) 02/12/2015 2:31 PM EDT 02/12/2015 2:43 PM EDT Narrative Resulting Agency Comment Spec In Lab Nicolle Spencer MD CHEMISTRY ORDERABLES Performing Organization Address City/State/[facility] Co de Phone Number ALLI MALDONADO documented in this encounter Visit Diagnoses Diagnosis Abnormal kidney function Unspecified disorder of kidney and ureter documented in this encounter Care Teams Career Development Engineer Relationship Specialty Start Date End Date Nicolle Spencer MD [facility] [address] [place] [address] PCP - General 01/21/15 12/05/16 documented as of this encounter
--- OUTSIDE RECORDS SUMMARY | 2024-07-12 00:35 | XMS_ITS | Encounter Summary ---
Author Organization [facility] Address [facility] [place] [address] Care Team Providers Care Commissioning Agent Name Role Phone Nicolle Spencer MD Primary Care Provider Reason for Visit * Reason Onset Date Comments Prior Authorization 06/30/2015 BOTOX APPROV ED 06/30/15-09/30/15 Encounter Details Date Type Department Care Team (Late st Contact Info) Description 06/30/2015 [place] [address] Gracie Mark MD [facility] [place] [address] Prior Authorization (BOTOX APPROVED 06/30/15-09/30/15) Social History Tobacco Use Types Packs/Day Years [...] Miscellaneous Notes * Telephone Encounter - Suzan Guzmán - 07/08/2015 9:04 AM EDT BOTOX APPROVED 06/30/15-09/30/15 200 UNITS EVERY 84 DAYS FOR 3 MONTHS. 1 DOSE OF [id number] APPROVED FOR A TOTAL OF 200 UNITS FOR 3 MONTHS. * Telephone Encounter - Suzan Guzmán - 06/30/2015 2:36 PM EDT REC'D FAX FROM [employer] THAT PA REQUEST WAS REC'D. TRACKING ID #: [id number] * Telephone Encounter - Suzan Guzmán - 06/30/2015 10:51 AM EDT PA FOR BOTOX FAXED TO [place] [employer]. documented in this encounter Plan of Treatment Upcoming Encounters Date Type Department Care Team (Late st Contact Info) Description 09/05/2024 9:00 AM EDT Office Visit Internal Medicine at [address] [address] Gema Oliveira DO [facility] [place] [address] documented as of this encounter Visit Diagnoses Not on filedocumented in this encounter Care Teams Commissioning Agent Relationship Specialty Start Date End Date Nicolle Spencer MD [facility] [place] [address] PCP - General 01/21/15 12/05/16 documented as of this encounter
--- OUTSIDE RECORDS SUMMARY | 2024-07-12 00:35 | XMS_ITS | Encounter Summary ---
Author Organization [facility] Address [facility] [place] [address] Care Team Providers Care Lightning Rod Erector Name Role Phone Nicolle Spencer MD Primary Care Provider [phone] Encounter Details Date Type Department Care Team (Latest Contact Info) Description 02/05/2015 11:52 AM EDT - 02/05/2015 11:59 PM EDT Hospital [place] [address] Gracie Mark MD [facility] [place] [address] Abnormal renal finding Discharge Disposition: Home Social History Tobacco Use [...] Sig Dispensed Refills Start Date End Date cloNIDine HCl (CATAPRES) 0.1 mg Tablet Take [...] for Migraine. 9 tablet 3 01/20/2015 02/18/2015 pramipexole (MIRAPEX) 0.125 mg Tablet TAKE 1 TABLET BY MOUTH 2 TO 3 HOURS BEFORE BEDTIME X 1 WEEK, MAY INCREASE TO 2 TABLETS BY MOUTH AFTER 1 WEEK IF NEEDED 60 tablet 0 12/26/2014 02/11/2015 fluticasone-salmeter ol (ADVAIR) 100-50 mcg/dose Disk with [...] AM EDT Office Visit Internal Medicine at [place] [phone] Gema Oliveira, [facility] GENER[facility] INTERNAL [place] [address] documented as of this encounter Procedures Procedure Name Priority Date/Time Associated Diagnosis Comments BASIC METABOLIC PANEL Routine 02/05/2015 12:00 PM EDT Abnormal renal finding documented in this encounter Results * (ABNORMAL) Basic Metabolic Panel (non-fasting) (02/05/2015 12:00 PM EDT) Glucose 111 60 - 199 mg/dL CERNER MILLENNIUM Comment:Diabetes: >=200 mg/d L plus symptoms Blood Urea Nitrogen 13 8 - 18 mg/dL CERNER MILLENNIUM Creatinine 1.22(H) 0.70 - 1.20 mg/dL CERNER MILLENNIUM Comment: Please note that the pediatric reference intervals supplied above were not validated at [facility]. Results from pediatric patients should be interpreted [...] the following links into your internet browser. [email or web address] Blood specimen (specimen) 02/05/2015 12:00 PM EDT 02/05/2015 12:04 PM EDT Narrative Resulting Agency Comment Spec In Lab Gracie Mark MD CHEMISTRY ORDERABLES Performing Organization Address City/State/ZIP Co ne Phone Number [facility] documented in this encounter Visit Diagnoses Diagnosis Abnormal renal finding Unspecified disorder of kidney and ureter documented in this encounter Care Teams Lightning Rod Erector Relationship Specialty Start Date End Date Nicolle Spencer MD [facility] [address] INTERNAL [facility] [place] [address] PCP - General 01/21/15 12/05/16 documented as of this encounter
--- OUTSIDE RECORDS SUMMARY | 2024-07-12 00:35 | XMS_ITS | Encounter Summary ---
Author Organization [facility] Address [facility] [place] [address] Care Team Providers Care Physician Anesthesiologist Name Role Phone Nicolle Spencer MD Primary Care Provider [phone] Encounter Details Date Type Department Care Team (Late st Contact Info) Description 07/07/2015 9:45 AM EDT Office Visit [place] [address] Merna Escobar APRN [facility] [place] [address] Chronic migraine without aura without status migrainosus, not intractable Discharge Disposition: Home Social History Tobacco Use [...] as of this encounter Progress Notes * Merna Escobar APRN - 07/07/2015 10:21 AM EDT CC: Chronic Migraine S: Midas= 77 Total= 90/90 Pain scale= 5/10 O: A/O x 3 in NAD A: Chronic Migraine P: 1. Botox 155u given via preempt protocol. Consent was obtained and a time-out was conducted just prior to the start of the procedure to verify the correct: patient, procedure, procedure location, and all relevant critical information. Each injection site was sterilized with 70% isopropyl alcohol. OnabotulinumtoxinA was reconstituted with 0.9% NaCl to create a dilution of 5 units per 0.1mL. Injections were administered with a 30 gauge, 1/2 needle. Injections administered as follows and performed bilaterally with injections split equally except for procerus: 20 units divided between 4 sites in the frontalis muscle, 10 units divided between 2 sites in the supervising law enforcement analyst muscles, 5 units into 1 site in the procerus muscle, 40 units divided between 8 sites in the temporalis muscles, 30 units divided between 6 sites in the suboccipital region, 20 units divided between 4 sites in the cervical paraspinal musculature, and 30 units divided between 6 sites in the trapezii. Total units used= 155, 45 units were discarded/wasted, but 200 units were charged. Total injection sites=31. The patient tolerated the procedure without any immediate c omplications. 2. Follow up with Dr. Mark to discuss medication and case management, botox in 12 weeks. documented in this encounter Plan of Treatment Upcoming Encounters Date Type Department Care Team (Late st Contact Info) Description 09/05/2024 9:00 AM EDT Office Visit Internal Medicine at [address] [id number] Gema Oliveira, [facility] [place] [address] documented as of this encounter Visit Diagnoses Diagnosis Chronic migraine without aura without status migrainosus, not intractable Chronic migraine without aura, without mention of intractable migraine without mention of status migrainosus documented in this encounter Administered Medications Inactive Administered Medications - up to 3 most recent administrations Medication Order MAR Action Action Date Dose Rate Site botulinum toxin type A (BOTOX) injection 155 Units 155 Units, Intramuscular, ONCE, 1 dose, On Mon07/07/15 at 1045, Routine Given 07/07/2015 10:36 AM EDT 155 Units documented in this encounter Care Teams Physician Anesthesiologist Relationship Specialty Start Date End Date Nicolle Spencer MD [facility] [place] [address] PCP - General 01/21/15 12/05/16 documented as of this encounter
--- OUTSIDE RECORDS SUMMARY | 2024-07-12 00:35 | XMS_ITS | Encounter Summary ---
Author Organization [facility] [place] [address] Care Team Providers Care Research Dairy Farm Supervisor Name Role Phone Tasneem Galdamez MD Primary Care Provider [phone] Reason for Visit * Reason Onset Date Comments Medication Refill 02/11/2015 Encounter Details Date Type Department Care Team (Late st Contact Info) Description 02/11/2015 Refill Internal Medicine at [address] [address] Miriam Miller PA [facility] [place] [address] Social History Tobacco Use Types Packs/Day Years [...] AM EDT Office Visit Internal Medicine at [address] [address] Gema Oliveira, [facility] [address] documented as of this encounter Visit Diagnoses Not on filedocumented in this encounter Care Teams Research Dairy Farm Supervisor Relationship Specialty Start Date End Date Tasneem Galdamez MD [facility] [place] [address] PCP - General General Internal Medicine 05/20/2004/21 documented as of this encounter
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
--- OUTSIDE RECORDS SUMMARY | 2024-07-12 00:35 | XMS_ITS | Encounter Summary ---
Author Organization [facility] Address [facility] [place] [address] Care Team Providers Care Filter Bed Placer Name Role Phone Nicolle Spencer MD Primary Care Provider Encounter Details Date Type Department Care Team (Latest Contact Info) Description 02/19/2015 1:37 PM EDT - 02/19/2015 11:59 PM EDT Hospital [place] [address] CLINIC, Jerrica Chaney MD [facility] OBSTETRICS & [place] [address] DUB (dysfunctional uterine bleeding) Discharge Disposition: Home Social History Tobacco Use [...] End Date pramipexole (MIRAPEX) 0.5 mg Tablet Take 1 tablet by mouth nightly. 90 tablet 3 02/18/2015 03/09/2015 nicotine (NICODERM CQ) 7 mg/24 [address] 1 patch onto the skin daily. 14 patch 0 02/18/2015 07/09/2015 HYDROcodone-acetamin ophen 5-325 mg Tablet Take 1 tablet by mouth 2 times daily as needed for Pain. 20 tablet 0 02/13/2015 03/09/2015 ondansetron (ZOFRAN) 4 mg Tablet Take 1 tablet by mouth every 8 hours as needed for Nausea. 20 tablet 0 02/09/2015 03/09/2015 cloNIDine HCl (CATAPRES) 0.1 mg Tablet Take [...] with headache). 15 suppository 5 09/29/2014 03/09/2015 baclofen (LIORESAL) 10 mg TabletIndications:Po sttraumatic headache,Cervicalgia Take 10-20 mg nightly for neck and sleep and 10 mg twice daily as needed. 90 tablet 1 09/19/2014 03/09/2015 documented as of this encounter Plan of Treatment Upcoming Encounters Date Type Department Care Team (Late st Contact Info) Description 09/05/2024 9:00 AM EDT Office Visit Internal Medicine at [address] [address] Gema Oliveira, [facility] [place] [address] documented as of this encounter Procedures Procedure Name Priority Date/Time Associated Diagnosis Comments US SONOHYSTEROGRAM Routine 02/19/2015 2: 41 PM EDT DUB (dysfunctional uterine bleeding) documented in this encounter Results * US sonohystogram (02/19/2015 2:41 PM EDT) Anatomical Region Laterality Modality Ultrasound 02/19/2015 2:41 PM EDT Narrative 02/19/2015 2:49 PM EDT Gynecological Report ? (Signed Final 02/19/2015 02:48 ? pm) Patient Info ID #: ? [id number] ?: ??[birth year] (44 yrs) Name: ? TRACIE HAYDEN ? Visit Date: 02/19/2015 02:39 pm Performed By Performed By: ?Papo Mohamud RDMS Attending: ? Kayla Ruiz MD, Jerrica Referred By: ? ALEXEY IRVIN MD Service(s) Provided ??[facility] - Ultrasound - Sonohysterogram ??- ?[id number] ??[id number] ??U3D - ??Ultrasound 3D rendering with interpretation - ??[id number] ??[id number] Indications ??indistinct endometrium, DUB, menorrhagia Comparison Ultrasound: [...] 02/19/2015 02:48 pm) Patient Info ID #: [id number] : [id number] (44 yrs) Name: TRACIE HAYDEN Visit Date: 02/19/2015 02:39 pm Performed By Performed By: Papo Mohamud RDMS Attending: Jerrica Sigala MD Referred By: ALEXEY IRVIN MD Service(s) Provided [facility] - Ultrasound - Sonohysterogram - [id number] U3D - Ultrasound 3D rendering with interpretation - [id number] Indications indistinct endometrium, DUB, menorrhagia Comparison Ultrasound: [...] tract documented in this encounter Care Teams Filter Bed Placer Relationship Specialty Start Date End Date Nicolle Spencer MD [facility] [address] [place] [address] PCP - General 01/21/15 12/05/16 documented as of this encounter
--- OUTSIDE RECORDS SUMMARY | 2024-07-12 00:35 | XMS_ITS | Encounter Summary ---
Author Organization [facility] [place] [address] Care Team Providers Care Grab Setter Name Role Phone Nicolle Spencer MD Primary Care Provider Encounter Details Date Type Department Care Team (Late st Contact Info) Description 02/16/2015 2:20 PM EDT Clinical Support Obstetrics [place] [address] Social History Tobacco Use Types Packs/Day Years [...] EDT Office Visit Internal Medicine at [address] [address] Gema Oliveira DO [facility] GENERAL [place] [address] documented as of this encounter Visit Diagnoses Not on filedocumented in this encounter Care Teams Grab Setter Relationship Specialty Start Date End Date Nicolle Spencer MD [facility] INTERNAL [place] [address] PCP - General 01/21/15 12/05/16 documented as of this encounter
--- OUTSIDE RECORDS SUMMARY | 2024-07-12 00:35 | XMS_ITS | Encounter Summary ---
Author Organization [facility] Address [facility] [place] [address] Care Team Providers Care Garde Manger Name Role Phone Nicolle Spencer MD Primary Care Provider [phone] Reason for Visit * Reason Comments Vaginal Bleeding Encounter Details Date Type Department Care Team (Late st Contact Info) Description 02/19/2015 2:00 PM EDT Office Visit Obstetrics [place] [address] Bassam Sigala MD [facility] DR OBSTETRICS & [place] [address] Vagina bleeding (Primary Dx) Social History Tobacco Use Types Packs/Day Years [...] as of this encounter Progress Notes * Bassam Sigala MD - 02/19/2015 2:39 PM EDT Endometrial Biopsy: Procedure Note: Following a brief verbal description of the procedure, verbal consent was obtained from the patient. She stated her name, date of , and procedure to be performed was confirmed in a time out procedure prior to beginning. A long Graves speculum was placed without difficulty. The cervix and vagina were prepped with sterile betadine. Stenosis of her external os was noted. A single-toothed tenaculum was placed on the anterior lip ofher cervix and a sterile os finder was used to establish the direction of the cervical os. A 3mm VacuLoc pipelle was placed through the cervix without difficulty. The uterus sounded to 8 cm.A biopsy was obtained in a 360 degree fashion. The tissue was placed into formalin for pathologic specimen and labeled with her name and date of and sent to pathology for assessment. SALINE INFUSION SONOGRAPHY PROCEDURE NOTE Under T/V US guidance saline was injected into the uterine cavity and the cervical canal and the uterine cavity was thoroughly inspected in a three dimensional fashion with 2 D klein ultrasound and a 3 D US rendering of the uterine cavity was obtained. The patient tolerated the procedure well. Ms. Layton tolerated the procedure well. The estimated blood loss was minimal. See US report-Normal cavity, no evidence of endometrial polyp or endocervical polyp. ASSESSMENT: Normal Uterine Cavity I briefly discussed the findings with the patient. Will route this note to her PCP for appropriate follow-up for her pain. Will call the patient to discuss biopsy results (usually available in 5-7 days). RECOMMENDATIONS: Routine care with PCP. Attended by Dr. Lieberman. MD Bassam Zambrano MD DELIA C HENDRICK, MD I was the attending physician supervising the resident in the above care and I was present with theresident for the entire procedure. documented in this encounter Plan of Treatment Upcoming Encounters Date Type Department Care Team (Late st Contact Info) Description 09/05/2024 9:00 AM EDT Office Visit Internal Medicine at [address] [address] [facility] [place] [address] documented as of this encounter Procedures Procedure Name Priority Date/Time Associated Diagnosis Comments SPECIMEN TO PATHOLOGY (NON-OR) Routine 02/19/2015 2:42 PM EDT Vagina bleeding SURGICAL PATHOLOGY REPORT Routine 02/19/2015 2:42 PM EDT documented in this encounter Results * Surgical Pathology Report (02/19/2015 2:42 PM EDT) Final Diagnosis ? [facility] ? Provider: ?? HUMBERTO RUIZ, ??Pt. Name: ?? CATRACHO TRACIE Néstor ?BASSAM ? Acc #: ?[id number] ?Pt. ? Col Date: ?? 02/19/2015 ?/Sex: ?1970,(44 years),Female ? Rec Date: ?? 02/19/2015 ?LOC: ?5L ? SURGICAL PATHOLOGY ? ---Pathologic Diagnosis--- ? Endometrial biopsy: ?1. Fragments of benign proliferative endometrium intermixed ? with blood clot. ?2. No evidence of hyperplasia or endometritis. ? CR-0 ? 02/23/15 ? LJT ? 02/23/15 Verified by: ? Hellen Garcia MD ? Pathologist ? (Electronic Signature) ? The attending pathologist whose signature appears on this report has ? reviewed all diagnostic slides and has edited the gross and/or ? microscopic portion of the report in rendering the final pathologic ? diagnosis. ? ---Microscopic Description--- ? Slides reviewed, microscopic description not recorded. ? ---Gross Description--- ? A - Labeled/Fixative: Patient demographics, formalin. ? Quantity/Size: Fragments, 1.2 x 0.7 x 0.3 cm. ? Tissue Description: Soft, ratliff-pink tissue. ? Sections/Processi ng: Totally submitted. (T1) ??pps ? ---Clinical Information--- ? Specimen Submitted: ? A - Endometrial cavity ? Clinical History: ? Dysfunctional uterine bleeding ? Clinical Diagnosis: ? Benign 02/23/2015 6:32 PM EDT [facility] ENDOMETRIAL STRUCTURE / Unknown 02/19/2015 2:42 PM EDT 02/19/2015 2:42 PM EDT Bassam Ruiz MD PATHOLOGY/C YTOLOGY ORDERABLES Performing Organization Address City/[facility]/ZIP Co de Phone Number ALLI MALDONADO [facility] [place] [address] * Specimen to Pathology (NON-OR) (02/19/2015 2:42 PM EDT) AP Specimen 02/19/2015 2:42 PM EDT 02/19/2015 2:42 PM EDT Narrative ALLI MALDONADO - 02/19/2015 2:42 PM EDT Specimen requisition ordered. ??Separate Pathology report to follow Bassam Ruiz MD PATHOLOGY/C YTOLOGY ORDERABLES Performing Organization Address [facility] Co de Phone Number ALLI MAURIZIONUVIA documented in this encounter Visit Diagnoses Diagnosis Vagina bleeding- Primary Other specified noninflammatory disorder of vagina documented in this encounter Care Teams Garde Manger Relationship Specialty Start Date End Date Nicolle Spencer MD [facility] [address] [address] PCP - General 01/21/15 12/05/16 documented as of this encounter
--- OUTSIDE RECORDS SUMMARY | 2024-07-12 00:35 | XMS_ITS | Encounter Summary ---
Author Organization [facility] Address [facility] [place] [address] Care Team Providers Care Strategic Account Manager Name Role Phone Nicolle Spencer MD Primary Care Provider Encounter Details Date Type Department Care Team (Late st Contact Info) Description 02/11/2015 Telephone Internal Medicine at [address] [address] Miriam Miller PA [facility] [place] [address] Social History Tobacco Use Types Packs/Day Years [...] encounter Miscellaneous Notes * Telephone Encounter - Miriam Miller PA - 02/11/2015 9:58 AM EDT Spoke to pt to f/u on her appt from ED over the weekend and [place] Jim[facility]nez on Monday. Still having rightflank pain and some vaginal bleeding (mid-cycle). No fevers. + ongoing nausea, but no vomiting. No change in bowels. Urinating without an issue - urine clear this AM and no other urinary sxs. Was referred for TVUS as next step in eval by Dr. Hooker - pt states the earliest they could get her in was a week form now. I called and spoke to US and was able to get this moved up to tmrw at 1:30. Advised that pt stop by the lab while she is there as well for repeat BMP. Encouraged her to continue to push fluids. Offered appt here today which she declined and prefers to have the above done first. Establish care visit with Dr. Spencer was changed to 02/18 which she will keep. Pt to call back with change in sxs or questions. documented in this encounter Plan of Treatment Upcoming Encounters Date Type Department Care Team (Late st Contact Info) Description 09/05/2024 9:00 AM EDT Office Visit Internal Medicine at [address] [id number] Gema Oliveira, [facility] GENER[facility] [place] [address] documented as of this encounter Results * (ABNORMAL) Basic Metabolic Panel (non-fasting) (02/12/2015 2:31 PM EDT) [facility] Glucose 92 60 - 199 mg/dL CERNER MILLENNIUM Comment:Diabetes: >=200 mg/d L plus symptoms Blood Urea Nitrogen 13 8 - 18 mg/dL CERNER MILLENNIUM Creatinine 1.27(H) 0.70 - 1.20 mg/dL CERNER MILLENNIUM Comment: Please note that the pediatric reference intervals supplied above were not validated at [facility]. Results from pediatric patients should be interpreted [...] the following links into your internet browser. [email or web address] Blood specimen (specimen) 02/12/2015 2:31 PM EDT 02/12/2015 2:43 PM EDT Narrative Resulting Agency Comment Spec In Lab Nicolle Spencer MD CHEMISTRY ORDERABLES CERASHA MILLENNIUM documented in this encounter Visit Diagnoses Diagnosis Abnormal kidney function Unspecified disorder of kidney and ureter documented in this encounter Care Teams Strategic Account Manager Relationship Specialty Start Date End Date Nicolle Spencer MD [facility] [address] [place] [address] PCP - General 01/21/15 12/05/16 documented as of this encounter
--- OUTSIDE RECORDS SUMMARY | 2024-07-12 00:35 | XMS_ITS | Encounter Summary ---
Author Organization [facility] Address [facility] [place] [address] Care Team Providers Care Condenser Operator Name Role Phone Nicolle Spencer MD Primary Care Provider [phone] Encounter Details Date Type Department Care Team (Latest Contact Info) Description 05/11/2015 8:54 AM EDT - 05/11/2015 11:59 PM EDT Hospital Encounter XRay at [address] [place] [address] Abdominal pain, LLQ (left lower quadrant); Other constipation Social History Tobacco Use Types Packs/Day Years [...] 09/30/2014 08/24/2015 documented as of this encounter Plan of Treatment Upcoming Encounters Date Type Department Care Team (Late st Contact Info) Description 09/05/2024 9:00 AM EDT Office Visit Internal Medicine at [address] [address] Gema Oliveira, [facility] [place] [address] documented as of this encounter Procedures Procedure Name Priority Date/Time Associated Diagnosis Comments XR ABDOMEN 1 VIEW Routine 05/11/2015 9:0 1 AM EDT Abdominal pain, LLQ (left lower quadrant) Other constipation documented in this encounter Results * XR abdomen 1 [...] constipation documented in this encounter Care Teams Condenser Operator Relationship Specialty Start Date End Date Nicolle Spencer MD [facility] [address] PCP - General 01/21/15 12/05/16 documented as of this encounter
--- OUTSIDE RECORDS SUMMARY | 2024-07-12 00:35 | XMS_ITS | Encounter Summary ---
Author Organization [facility] Address [facility] [place] [address] Care Team Providers Care Fuel Manager Name Role Phone Nicolle Spencer MD Primary Care Provider Encounter Details Date Type Department Care Team (Latest Contact Info) Description 02/12/2015 1:39 PM EDT - 02/12/2015 11:59 PM EDT Hospital En[place] [phone] CLINIC, Cortney Garcia MD [facility] [place] [address] Hematuria, unspecified; Bilateral flank pain Discharge Disposition: Home Social History Tobacco [...] EDT Office Visit Internal Medicine at [address] [address] Gema Oliveira, [facility]IC[facility] [place] [phone] documented as of this encounter Procedures Procedure Name Priority Date/Time Associated Diagnosis Comments US TRANSVAGINAL NON OB Routine 02/12/2015 2:07 PM EDT Hematuria, unspecified Bilateral flank pain documented in this encounter Results * US Transvaginal non OB (02/12/2015 2:07 PM EDT) Anatomical Region Laterality Modality Ultrasound 02/12/2015 2:07 PM EDT Narrative 02/12/2015 4:01 PM EDT Gynecological Report ? (Signed Final 02/12/2015 04:00 ? pm) Patient Info ID #: ? [id number] ?: ??[birth year] (44 yrs) Name: ? TRACIE HAYDEN ? Visit Date: 02/12/2015 02:02 pm Performed By Performed By: ?Margi Raygoza RDMS Attending: ? Ivelisse KWAN, Frances Vu Referred By: ? DEAN WILCOX Service(s) Provided ??UTV - Ultrasound - Transvaginal - [id number] ? [id number] Indications ??bilateral/suprapubic tenderness on exam with mid- ??cycle bleeding, bilateral flank pain; History of: ??Abnormal bleeding Comparison Prior CT 02/08/15 ------- History ------- Age: ?? 44 Replacement Therapy none ------ Uterus ------ Uterus: ? Visualized Position: ?? Anteverted Size (cm) ?L: ??8.5 ? W: ?? 4.7 ?H: ??4.3 Endometrium Endometrium: ?irregular, vascular Thickness(mm): ?9 ------ Cervix ------ Normal appearance [place] No fluid was visualized Right Ovary Status: ?? Visualized Size (cm) ?L: ??1.9 ? W: ?? 1.9 ?H: ??1.8 Vol (ml): ?3.4 Morphology: ?Normal appearance Left Ovary Status: ?? Visualized Size (cm) ?L: ??3.5 ? W: ?? 2.4 ?H: ??1.8 Vol (ml): ?7.9 Morphology: ?Normal appearance Impression Ultrasound - Transvaginal - Summary The uterus is ??Anteverted. Endometrium is irregular, heterogeneous and contains small cystic areas. ?? Direct sampling recommend, referrla to JOINER HELPER recommended. The endometrial echo measures 9 mm. This study was performed transvaginally. I ??viewed the images and agree with the above interpretation. . ?Frances Oviedo MD Electronically Signed Final Report ?? 02/12/2015 04:00 pm Procedure Note Frances Oviedo MD - 02/12/2015 Gynecological Report (Signed Final 02/12/2015 04:00 pm) Patient Info ID #: [id number] : [birth year] (44 yrs) Name: TRACIE HAYDEN Visit Date: 02/12/2015 02:02 pm Performed By Performed By: Margi Raygoza RDMS Attending: Frances Oviedo MD. Referred By: DEAN WILCOX Service(s) Provided UTV - Ultrasound - Transvaginal - [id number] Indications bilateral/suprapubic tenderness on exam with mid- cycle bleeding, bilateral flank pain; History of: Abnormal bleeding Comparison Prior CT 02/08/15 ------- History ------- Age: 44 Replacement Therapy none ------ Uterus ------ Uterus: Visualized Position: Anteverted Size (cm) L: 8.5 W: 4.7 H: 4.3 Endometrium Endometrium: irregular, vascular Thickness(mm): 9 ------ Cervix ------ Normal appearance [place] No fluid was visualized Right Ovary Status: Visualized Size (cm) L: 1.9 W: 1.9 H: 1.8 Vol (ml): 3.4 Morphology: Normal appearance Left Ovary Status: Visualized Size (cm) L: 3.5 W: 2.4 H: 1.8 Vol (ml): 7.9 Morphology: Normal appearance Impression Ultrasound - Transvaginal - Summary The uterus is Anteverted. Endometrium is irregular, heterogeneous and contains small cystic areas. Direct sampling recommend, referrla to JOINER HELPER recommended. The endometrial echo measures 9 mm. This study was performed transvaginally. I viewed the images and agree with the above interpretation. . Frances Oviedo MD Electronically Signed Final Report 02/12/2015 04:00 pm Cortney Hooker MD IMG US PELVIC ORDE RABLES documented in this encounter Visit Diagnoses Diagnosis Hematuria, unspecified Bilateral flank pain Abdominal pain, unspecified site documented in this encounter Care Teams Fuel Manager Relationship Specialty Start Date End Date Nicolle Spencer MD [facility] [address] PCP - General 01/21/15 12/05/16 documented as of this encounter
--- OUTSIDE RECORDS SUMMARY | 2024-07-12 00:35 | XMS_ITS | Encounter Summary ---
Author Organization [facility] [place] [address] Care Team Providers Care Director Of Loss Prevention Name Role Phone Nicolle Spencer MD Primary Care Provider Reason for Visit * Reason Onset Date Comments Medication Refill 02/11/2015 Encounter Details Date Type Department Care Team (Late st Contact Info) Description 02/11/2015 Refill Internal Medicine at [address] [address] Leah Raines RN Social History Tobacco Use [...] EDT Office Visit Internal Medicine at [address] [address] Gema Oliveira DO [facility] [place] [address] documented as of this encounter Visit Diagnoses Not on filedocumented in this encounter Care Teams Director Of Loss Prevention Relationship Specialty Start Date End Date Nicolle Spencer MD [facility] [address] [place] [address] PCP - General 01/21/15 12/05/16 documented as of this encounter
--- OUTSIDE RECORDS SUMMARY | 2024-07-12 00:35 | XMS_ITS | Encounter Summary ---
Author Organization [place] [address] Care Team Providers Care Boat Worker Name Role Phone Nicolle Spencer MD Primary Care Provider [phone] Reason for Visit * Reason Onset Date Comments Flank Pain 02/16/2015 Nausea 02/16/2015 Encounter Details Date Type Department Care Team (Late st Contact Info) Description 02/16/2015 Telephone Internal Medicine at [address] [address] Miladis Tucker RN Flank Pain; Nausea Social History Tobacco Use Types Packs/Day Years [...] Telephone Encounter - Miladis Tucker RN - 02/16/2015 11:11 AM EDT Please ask patient to also have a urine test for abnormal bladder cells ( urine cytology); Message left. * Telephone Encounter - Miladis Tucker RN - 02/16/2015 9:36 AM EDT TC from the patient: C/O increased nausea, vomiting times one yesterday. Also cont. Flank pain mostly on the right side. Pacheco not helping as she took twice yesterday and this morning. Has annual onthe first and SALES COACH on the . TC to SALES COACH and they had a cancellation today. Patient will make that appointment this afternoon. documented in this encounter Plan of Treatment Upcoming Encounters Date Type Department Care Team (Late st Contact Info) Description 09/05/2024 9:00 AM EDT Office Visit Internal Medicine at [address] [address] Gema Oliveira, [facility] [address] [address] documented as of this encounter Visit Diagnoses Not on filedocumented in this encounter Care Teams Boat Worker Relationship Specialty Start Date End Date Nicolle Spencer MD [facility] [address] INTERNAL [place] [address] PCP - General 01/21/15 12/05/16 documented as of this encounter
--- OUTSIDE RECORDS SUMMARY | 2024-07-12 00:35 | XMS_ITS | Encounter Summary ---
Author Organization [facility] [place] [address] Care Team Providers Care Production Service Manager Name Role Phone Nicolle Spencer MD Primary Care Provider Reason for Visit * Reason Comments Personal Problem Encounter Details Date Type Department Care Team (Late st Contact Info) Description 02/18/2015 11:25 AM EDT Follow-Up Internal Medicine at [address] [address] Nioclle Spencer MD [facility] [place] [address] Generalized abdominal pain; Post concussive syndrome; PTSD (post-traumatic stress disorder); Restless leg syndrome; Gastroesophageal reflux disease without esophagitis; Tobacco abuse; Asthma, mild intermittent, uncomplicated; Cervical cancer; Stress incontinence; Bilateral low back pain with left-sided sciatica; Hematuria, unspecified Discharge Disposition: Home Social History Tobacco [...] Sign Reading Time Taken Comments Blood Pressure 132/80 02/18/2015 11:33 AM EDT Pulse 88 02/18/2015 11:33 AM EDT Temperature 36.9 ??C (98.4 ??F) 02/18/2015 1 1:33 AM EDT Respiratory Rate - - Oxygen Saturation 98% 02/18/2015 11: 33 AM EDT Inhaled Oxygen Concentration - - Weight 114.2 kg (251 lb 12.8 oz) 2014 11:33 AM EDT Height 177.8 cm (5' 10) 02/18/2015 11: 33 AM EDT reported Body Mass Index 36.13 02/18/2015 11:33 AM EDT documented in this encounter Progress Notes * Nicolle Spencer MD - 02/18/2015 2:05 PM EDT Chief Complaint Patient presents with ??? Personal Problem HPI: 44 y.o. patient with above concerns, here to establish care. She has been seen recently for recent onset of abdominal pain- diffuse, and R flanc pain; she was found to have hematuria; had an abdominal CT scan without contrast which did not show stones. At f/u she also had spotting and a pelvic exam identified a pelvic mass; TVUS showed thickened endometrium and she will have a biopsy tomorrow. Meanwhile she continues with abdominal pain and nausea. Review of her medical records And patient'sprovided history also provide the following information: she has had chronic nausea. She was on methadone and oxycodone for back pain; in October she had vomiting and her urien drug test returned negative for methadone, at that point it was considered a breech in contract and she was given one month only of methadone which she tapered ( every other week). She was prescribed vicodin which she has been taking sparingly at night. Patient Active Problem List Diagnosis ??? Abdominal pain Bilateral and R CV [...] occipital neuralgia ??? Post concussive syndrome 05/31/2014 Reviewed and updated past medical history, past surgical history, family history and [facility]. Allergies Allergen Reactions ??? Bactrim [Sulfamethoxazole-Trimethoprim] Anaphylaxis ??? Aleve [Naproxen Sodium] Rash ??? Keflex [Cephalexin] Other (See Comments) Racing heart ??? Meloxicam Nausea Only Current Outpatient Prescriptions on File Prior to Visit Medication Sig Dispense Refill ??? HYDROcodone-acetaminophen 5-325 [...] with spacer 1 Inhaler 3 ??? [DISCONTINUED] fluticasone-salmeterol (ADVAIR) 100-50 mcg/dose Disk with Device Inhale 1 puff into the lungs every 12 hours. 1 Inhaler 3 ??? hydrOXYzine (VISTARIL) 25 [...] twice dailyas needed. 90 tablet 1 ??? [DISCONTINUED] naratriptan (AMERGE) 2.5 mg Tablet Take 1 tablet by mouth as needed for Migraine. 9 tablet 3 ??? [DISCONTINUED] gabapentin (NEURONTIN) 600 mg Tablet Take 1 tablet by mouth 3 times daily. 90 tablet 1 No current facility-administered medications on file prior to visit. Review of Systems - General ROS: negative for - chills, fever or malaise Respiratory ROS: + chronic cough, occ shortness of breath, no wheezing Cardiovascular ROS: no chest pain or dyspnea on exertion Gastrointestinal ROS: + abdominal pain, No change in bowel habits, or black or bloody stools Genito-Urinary ROS: no dysuria, trouble voiding, or hematuria Musculoskeletal ROS: back pain Neurological ROS: no TIA or stroke symptoms Physical Exam: BP 132/80 Pulse 88 Temp(Src) 36.9 ??C (98.4 ??F) Ht 177.8 cm (5' 10) Wt 114.216 kg (251 lb12.8 oz) BMI 36.13 kg/m2 SpO2 98% LMP 01/24/2015 (Exact Date) The patient appeared well nourished and normally developed. Vital signs as documented. Head exam is unremarkable. Conjunctivae normal. Neck is without thyromegally, or lymphadenopathy. Lungs are clear to auscultation without wheezes or rales Cardiac exam:Regular rate and rhythm. No murmurs, rubs or gallops. Abdominal exam reveals normal bowel sounds, soft And tender to palpation, no hepatomegaly Extremities are non-edematous Dorsalis pedis pulses are normal bilaterally No results found for this basename: CHLPL No results found for this basename: HDL No results found for this basename: LDLCHOL No results found for this basename: TRIG No results found for this basename: CHOLHDL No results found for this basename: GLUCFASTING Assesment and Plan: Abdominal pain and hematuria: endometrial Biopsy pending; urine cytology pending; repeat labs; consider repeat CT abdo with contrast with biopsy is not revealing Restless leg syndrome On mirapex, 3x 0.125 mg tabs at hs, works, but not 100% Will change to 0.5 mg po qhs Esophageal reflux (GERD) Heartburn 1-2 a week, takes tums, made dietary changes which have helped Tobacco abuse Has reduced to current 4 cig/day; will use nicotine patch and d/c Asthma Albuterol prn in the summer; used to take advair, reports doesn't need it Incontinence of urine Stress incontinence; discussed PT; she will consider in light of her history of trauma Back pain Chronic LBP after fall from [place] around 2005. Used to take methadone, oxycodone. PT was not helpful. Will review , consider spine clinic referral Health Maintenance Summary HIV one time screen Overdue 1989 Tetanus vaccine Next Due 07/30/2023 Done outside per patient (enter details in comments) 07/30/2013 PAP every 5 yrs Next Due 08/11/2019 Done outside per patient (enter details in comments) 08/11/2014 HPV test every 5 yrs Next Due 08/11/2019 Done outside per patient (enter details in comments) 08/11/2014 Breast Cancer Screen,every 2 yrs (40-74) Next Due 08/20/2016 Done outside per patient (enter details in comments) 08/20/2014 cottage Influenza (Flu) vaccine This plan is no longer active. Done 08/20/2014 Imm Admin: Influenza Vaccine, Whole Patient has more history with this topic... Tdap adult This plan is no longer active. Done outside per patient (enter details in comments) 07/30/2013 scanned documented in this encounter Miscellaneous Notes * Assessment & Plan Note - Nicolle Spencer MD - 02/18/2015 12:06 PM EDT Associated Problem(s): Back pain (Deleted) Chronic LBP after fall from [place] around 2005. Used to take methadone, oxycodone. PT was not helpful. * Assessment & Plan Note - Nicolle Spencer MD - 02/18/2015 12:04 PM EDT Associated Problem(s): Incontinence of urine (Resolved 09/25/2018) Stress incontinence * Assessment & Plan Note - Nicolle Spencer MD - 02/18/2015 11:56 AM EDT Associated Problem(s): Asthma (Deleted) Albuterol prn in the summer * Assessment & Plan Note - Nicolle Spencer MD - 02/18/2015 11:54 AM EDT Associated Problem(s): Smoking Has reduced to current 4 cig/day * Assessment & Plan Note - Nicolle Spencer MD - 02/18/2015 11:53 AM EDT Associated Problem(s): Esophageal reflux (GERD) Heartburn 1-2 a week, takes tums, made dietary changes which have helped * Assessment & Plan Note - Nicolle Spencer MD - 02/18/2015 11:51 AM EDT Associated Problem(s): Restless leg syndrome (Deleted) On mirapex, 3x 0.125 mg tabs at hs, works, but not 100% Will change to 0.5 mg po qhs documented in this encounter Plan of Treatment Upcoming Encounters Date Type Department Care Team (Late st Contact Info) Description 09/05/2024 9:00 AM EDT Office Visit Internal Medicine at [address] [address] Gema Oliveira, [facility] [place] [address] documented as of this encounter Procedures Procedure Name Priority Date/Time Associated Diagnosis Comments TSH Routine 02/18/2015 2:24 PM EDT Generalized abdominal pain LDL CHOLESTEROL, DIRECT Routine 02/18/2015 2:24 PM EDT Generalized abdominal pain HDL/CHOL PROFILE Routine 02/18/2015 2:24 PM EDT Generalized abdominal pain BASIC METABOLIC PANEL Routine 02/18/2015 2:24 PM EDT Generalized abdominal pain Hematuria, unspecified documented in this encounter Results * TSH (02/18/2015 2:24 PM EDT) Thyroid Stimulating Hormone 1.81 0.27 - 4.20 mcIU/mL [facility] Blood specimen (specimen) 02/18/2015 2:24 PM EDT 02/18/2015 6:06 PM EDT Narrative Resulting Agency Comment Spec In Lab Nicolle Spencer MD CHEMISTRY ORDERABLES [facility] * (ABNORMAL) LDL Cholesterol, Direct (02/18/2015 2:24 PM EDT) LDL Cholesterol, Direct 132(H) <=99 mg/dL [facility] Comment: The National Cholesterol Education Program (NCEP) has set the following guidelines for LDL Cholesterol: Reference range: ?? Optimal: ?<100 mg/dL ?? Near Optimal/Above Optimal: ?? 100-129 mg/dL ?? Borderline high: ?130-159 mg/dL ?? High: ? 160-189 mg/dL ?? Very high: ?>lu=505 mg/dL MARITA 2001: 285(19):[id number] Blood specimen (specimen) 02/18/2015 2:24 PM EDT 02/18/2015 6:06 PM EDT Narrative Resulting Agency Comment Spec In Lab Nicolle Spencer MD CHEMISTRY ORDERABLES Performing Organization Address [facility] de Phone Number ALLI MALDONADO * (ABNORMAL) HDL/Cholesterol Profile (02/18/2015 2:24 PM EDT) Cholesterol, Total 188 <=199 mg/dL [facility]NI[facility] Comment: Recommendations of the NCEP Adult Treatment Panel for the following risk cutoff thresholds for the [place] population: Desirable: <200 mg/dL Borderline High: 200-239 mg/dL High: > or = 240 mg/dL HDL Cholesterol 33(L) >=40 mg/dL [facility] MILLENNIUM Comment: Reference range: ??Low HDL: ?? < 40 mg/dL ??Normal: ?40-60 mg/dL ??Desirable: > 60 mg/dL MARITA 2001; 285(19):[phone] Cholesterol/HDL Ratio 5.7 ratio [facility] MILLENNIUM Comment: A Cholesterol to HDL ratio below 4:1 is desirable. ??Studies suggest that increased CAD risk occurs at ratios above 5 for females and above 6 for men. ? [place] Heart Association ??(http://www.americanheart.org) ? Julee Int Med, 1994; 121:641 ? AM J Med, 1998; 105(1A):48S Blood specimen (specimen) 02/18/2015 2:24 PM EDT 02/18/2015 6:06 PM EDT Narrative Resulting Agency Comment Spec In Lab Nicolle Spencer MD CHEMISTRY ORDERABLES Performing Organization Address [facility] Co de Phone Number ALLI MALDONADO * (ABNORMAL) Basic Metabolic Panel (non-fasting) (02/18/2015 2:24 PM EDT) Glucose 111 60 - 199 mg/dL [facility] MILLENNI[facility] Comment:Diabetes: >=200 mg/d L plus symptoms Blood Urea Nitrogen 16 8 - 18 mg/dL [facility] MILLENNIUM Creatinine 1.11 0.70 - 1.20 mg/dL [facility] MILLENNIUM Comment: Please note that the pediatric reference intervals supplied above were not validated at [facility]. Results from pediatric patients should be interpreted in conjunction to the patient's age, height and muscle mass. Sodium 141 135 - 145 mmol/L [facility]ERN[facility] MILLENNIUM Potassium 4.0 3.5 - 5.0 mmol/L [facility] MILLENNIUM Comment: Please note: ??Patients with WBC >100,000 may have falsely elevated Potassium levels. ??For accurate Potassium quantification in these patients send serum separator tube (gold top) for subsequent determinations. ??Contact the Clinical Chemistry Laboratory if there are any questions. Chloride 106 98 - 107 mmol/L [facility]ERNER MILLENNIUM Carbon Dioxide 19(L) 22 - 31 mmol/L [facility] MILLENNIUM Anion Gap 16(H) 5 - 15 mmol/L [facility]ERN[facility] MILLENNIUM Calcium 9.1 8.5 - 10.5 mg/dL [facility]ERN[facility] MILLENNIUM Est Glomerular Filtration Rate 54(L) >=60 [facility] MILLENNIUM Comment: This estimated GFR [...] the following links into your internet browser. [email or web address] Blood specimen (specimen) 02/18/2015 2:24 PM EDT 02/18/2015 6:06 PM EDT Narrative Resulting Agency Comment Spec In Lab Nicolle Spencer MD CHEMISTRY ORDERABLES [facility] MAURIZ[facility]ageJASMINA documented in this encounter Visit Diagnoses Diagnosis Generalized abdominal pain Abdominal pain, generalized Post concussive syndrome Postconcussion syndrome PTSD (post-traumatic stress disorder) Posttraumatic stress disorder Restless leg syndrome Restless legs syndrome (RLS) Gastroesophageal reflux disease without esophagitis Esophageal reflux Tobacco abuse Tobacco use disorder Asthma, mild intermittent, uncomplicated Cervical cancer Malignant neoplasm of cervix uteri, unspecified site Stress incontinence Female stress incontinence Bilateral low back pain with left-sided sciatica Hematuria, unspecified documented in this encounter Care Teams Production Service Manager Relationship Specialty Start Date End Date Nicolle Spencer MD [facility] [address] [place] [address] PCP - General 01/21/15 12/05/16 documented as of this encounter
--- OUTSIDE RECORDS SUMMARY | 2024-07-12 00:35 | XMS_ITS | Encounter Summary ---
Author Organization [facility] [place] [address] Care Team Providers Care Business Analyst Sales Operations Name Role Phone Nicolle Spencer MD Primary Care Provider Reason for Visit * Reason Comments Flank Pain Encounter Details Date Type Department Care Team (Late st Contact Info) Description 02/08/2015 12:25 PM EDT - 02/08/2015 5:35 PM EDT [place] [address] Mitra Srinivasan MD [facility] [place] [address] Flank pain; Hematuria, unspecified Discharge Disposition: DP-Discharged Social History Tobacco Use Types Packs/Day Years [...] Sign Reading Time Taken Comments Blood Pressure 110/61 02/08/2015 4:53 PM EDT Pulse 88 02/08/2015 4:53 PM EDT Temperature 36.8 ??C (98.2 ??F) 02/08/2015 12:33 PM E DT Respiratory Rate 16 02/08/2015 4:53 PM EDT Oxygen Saturation 99% 02/08/2015 4:53 PM EDT Inhaled Oxygen Concentration - - Weight 117.5 kg (259 lb) 02/08/2015 12:33 PM EDT Height - - Body Mass Index 37.16 01/26/2015 8:26 AM EDT documented in this encounter Discharge Instructions * Discharge Instructions* Hugo Brush MD - 02/08/2015 5:11 PM EDT Images from the original note were not included. [facility] Blood in the Urine: After Your Visit Your Care Instructions Blood in the urine, or hematuria, may make the urine look red, brown, or pink. There may be blood every time you urinate or just from time to time. You cannot always see blood in the urine, but it will show up in a urine test. Blood in the urine may be serious. It should always be checked by a doctor. Your doctor may recommend more tests, including an X-ray, a CT scan, or a cystoscopy (which lets a doctor look inside the urethra and bladder). Blood in the urine can be a sign of another problem. Common causes are bladder infections and kidney stones. An injury to your groin or your genital area can also cause bleeding in the urinary tract.Very hard exercise--such as running a marathon--can cause blood in the urine. Blood in the urine can also be a sign of kidney disease or cancer in the bladder or kidney. Many cases of blood in the urine are caused by a harmless condition that runs in families. This is called benign familial hematuria. It does not need any treatment. Sometimes your urine may look red or brown even though it does not contain blood. For example, not getting enough fluids (dehydration), taking certain medicines, or having a liver problem can change the color of your urine. Eating foods such as beets, rhubarb, or blackberries or foods with red foodcoloring can make your urine look red or pink. Follow-up care is a sandhu part of your treatment and safety. Be sure to make and go to all appointments, and call your doctor if you are having problems. It's also a good idea to know your test resultsand keep a list of the medicines you take. When should you call for help? Call your doctor now or seek immediate medical care if: ?? You have symptoms of a urinary infection. For example: ?? You have pus in your urine. ?? You have pain in your back just below your rib cage. This is called flank pain. ?? You have a fever, chills, or body aches. ?? It hurts to urinate. ?? You have groin or belly pain. ?? You have more blood in your urine. Watch closely for changes in your health, and be sure to contact your doctor if: ?? You have new urination problems. ?? You do not get better as expected. Where can you learn more? Visit our health information library at [email or web address] Foodso You can also view health information on [employer], your personal patient account. Log in or sign up today. Enter N871 in the search box to learn more about Blood in the Urine: After Your Visit. ?? [id number] [employer]. Care instructions adapted under license by [facility]. This care instruction is for use with your licensed healthcare professional. If you have questions about a medical condition or this instruction, always ask your healthcare professional. [employer] disclaims any warranty or liability for your use of this information. Content Version: 10.3.450256; Current as of: July 29, 2014 * Attachments The following attachments cannot be sent through Care Everywhere. * FLANK PAIN (BULGARIAN) documented in this encounter Medications at Time [...] 09/19/2014 03/09/2015 documented as of this encounter ED Notes * Hugo Brush MD - 02/08/2015 2:26 PM EDT Chief Complaint Patient presents with ??? Flank Pain HPI Comments: 44-year-old female presenting to the emergency department with bilateral flank pain. Patient states that the pain started yesterday. She feels like it is sharp, but is not sure if that radiates. It is worse with movement and better with rest. She has noticed some blood in her urine. She denies fever or chills. She denies vomiting, but has been nauseated. She's never had this pain before. She denies any abdominal pain or diarrhea. She's had normal bowel movements. She denies any trauma or injury to her back that she can remember. The history is provided by the patient. Allergies Allergen Reactions ??? Bactrim [Sulfamethoxazole-Trimethoprim] Anaphylaxis ??? Aleve [Naproxen Sodium] Rash ??? Keflex [Cephalexin] Other (See Comments) Racing heart ??? Meloxicam Nausea Only Review of Systems Constitutional: Negative for fever and chills. HENT: Negative for congestion and rhinorrhea. Eyes: Negative for pain. Respiratory: Negative for cough, choking, chest tightness and shortness of breath. Cardiovascular: Negative for chest pain. Gastrointestinal: Negative for nausea, vomiting, abdominal pain and diarrhea. Genitourinary: Positive for hematuria and flank pain. Negative for dysuria. Musculoskeletal: Negative for back pain, neck pain and neck stiffness. Skin: Negative for rash. Neurological: Negative for headaches. Physical Exam Constitutional: She appears well-developed and well-nourished. No distress. HENT: Head: Normocephalic and atraumatic. Right Ear: External ear normal. Left Ear: External ear normal. Nose: Nose normal. Mouth/Throat: Oropharynx is clear and moist. No oropharyngeal exudate. Eyes: Conjunctivae and EOM are normal. Pupils are equal, round, and reactive to light. No scleral icterus. Neck: Normal range of motion. Neck supple. No tracheal deviation present. No thyromegaly present. Cardiovascular: Normal rate, regular rhythm, normal heart sounds and intact distal pulses. Exam reveals no gallop and no friction rub. No murmur heard. Pulmonary/Chest: Effort normal and breath sounds normal. No respiratory distress. She has no wheezes. She has no rales. She exhibits no tenderness. Abdominal: Soft. Bowel sounds are normal. She exhibits no distension. There is no tenderness. Thereis no rebound and no guarding. Musculoskeletal: Normal range of motion. She exhibits tenderness (Tenderness to palpation bilaterallumbar spine. No midline tenderness, no step-offs or deformities. No CVA tenderness ). She exhibitsno edema. Neurological: She is alert. Skin: Skin is warm and dry. No rash noted. She is not diaphoretic. No erythema. Nursing note and vitals reviewed. Procedures MDM 44-year-old female with bilateral flank pain. I've consider the diagnosis of nephrolithiasis; however, the CT scan is not consistent with this. There is no hydronephrosis or signs of obstruction. Herurine is not consistent with pyelonephritis. I've also considered the diagnosis of AAA. I performeda bedside ultrasound which did not show any aortic dilation. I also feel this is unlikely given thepatient's risk factors and history. No abdominal pain to suggest intra- abdominal process. Her exam is most consistent with musculoskeletal back pain. Nothing to suggest cord compression. Neurologically intact. She is tolerating by mouth and hemodynamically stable. I feel that it is appropriate to discharge patient with close followup. ED Course: Patient seen and evaluated in the emergency department at 2 PM. IV placed, labs obtained. Patient offered, but declined analgesia. She also declined anti- emetics. I reviewed the labs which were notable for a slight increase in her creatinine from 1.2-1.39. Labs also notable for blood in her urine and trace leukocytes. CT scan obtained. I reviewed the CT scan which was notable for possible calcification in the left kidney. I discussed these findings with the patient and recommended close followup. Patient was comfortable with this plan and discharged in good condition. She will follow up with her PCP tomorrow for evaluation of her hematuria. Patient care discussed with attending physician. Hugo Brush MD Resident 02/08/15 [id number] Associated attestation - Mitra Srinivasan MD - 02/09/2015 12:36 PM EDT Emergency Medicine Attending Note: The patient was seen and evaluated with the resident physician. I interviewed the patient myself toverify sandhu portions of the history. I performed the sandhu elements of the physical exam myself. I have reviewed all diagnostic studies personally including labs, imaging studies and EKGs. I have discussed the details of the case with the resident and agree with the assessment and plan as described inthe resident note above unless noted otherwise below. documented in this encounter Miscellaneous Notes * ED Triage - Carolina Cosme RN - 02/08/2015 12:37 PM EDT Presents to triage, AAOx3 with c/o gradual onset of sharp, constant, bilateral flank pain, left side greater than right, accompanied by nausea, which began ~3- 4 days ago. Pt states she saw some blood in her urine last p.m. Denies fever, chills, vomiting, abdominal pain, or burning with urination.Denies h.o UTI or ureteral calculi. Skin pink/warm/dry. documented in this encounter Plan of Treatment Upcoming Encounters Date Type Department Care Team (Late st Contact Info) Description 09/05/2024 9:00 AM EDT Office Visit [place] [address] [facility] [place] [address] documented as of this encounter Procedures Procedure Name Priority Date/Time Associated Diagnosis Comments CT ABDOMEN AND PELVIS WO CONTRAST STAT 02/08/2015 4:23 PM EDT HEMOGRAM STAT 02/08/2015 1:20 PM EDT DIFFERENTIAL, AUTOMATED STAT 02/08/2015 1:20 PM EDT CBC (WITH DIFF) STAT 02/08/2015 1:20 PM EDT BASIC METABOLIC PANEL STAT 02/08/2015 1:20 PM EDT URINE, QUALITATIVE STAT 02/08/2015 1:18 PM EDT URINALYSIS WITH REFLEX CULTURE STAT 02/08/2015 1:18 PM EDT URINE CULTURE STAT 02/08/2015 1:18 PM EDT POCT URINE DIPSTICK STAT 02/08/2015 documented in this encounter Results * CT abdomen & pelvis WO contrast (02/08/2015 4:23 PM EDT) Anatomical Region Laterality Modality Abdomen, Pelvis Computed Tomogra phy 02/08/2015 4:23 PM EDT Impressions 02/08/2015 4:50 PM EDT IMPRESSION: A very small focus of probable calcification in the left kidney. No other calcifications are identified. The study is otherwise normal. Narrative 02/08/2015 4:50 PM EDT EXAMINATION: CT Abdomen / Pelvis Without Contrast CLINICAL HISTORY: flank pain and blood in urine. ???nephrolithiasis TECHNIQUE: Helical CT of the abdomen and pelvis was performed without the use of intravenous contrast COMPARISON: None FINDINGS: Images acquired through the inferior lungs revealed a small nodular opacity adjacent to the left pleural surface on image #28. The appearance is most consistent with intrapulmonary lymph node. Right kidney and ureter: Calculi: None Obstruction/hydronephrosis: None Left kidney and ureter: Calculi: There is a very small focus of increased attenuation in the left renal hilum on image 240 and 241. This may represent a very small focus of calcium in no other suspicious densities are identified. Obstruction/hydronephrosis: None Urinary bladder: Calculi: None This examination is limited for the evaluation of solid organs and vasculature structures due to the lack of intravenous contrast. Unenhanced images of the liver, spleen, pancreas, and adrenal glands are within normal limits. No lymphadenopathy. No ??free fluid in the abdomen or pelvis. ??No bowel dilatation or inflammatory changes. Osseous structures: No suspicious lesions. Procedure Note Estiven Allen MD - 02/08/2015 EXAMINATION: CT Abdomen / Pelvis Without Contrast CLINICAL HISTORY: flank pain and blood in urine. ?nephrolithiasis TECHNIQUE: Helical CT of the abdomen and pelvis was performed without theuse of intravenous contrast COMPARISON: None FINDINGS: Images acquired through the inferior lungs revealed a small nodularopacity adjacent to the left pleural surface on image #28. The appearance ismost consistent with intrapulmonary lymph node. Right kidney and ureter: Calculi: None Obstruction/hydronephrosis: None Left kidney and ureter: Calculi: There is a very small focus of increased attenuation in the leftrenal hilum on image 240 and 241. This may represent a very small focus ofcalcium in no other suspicious densities are identified. Obstruction/hydronephrosis: None Urinary bladder: Calculi: None This examination is limited for the evaluation of solid organs andvasculature structures due to the lack of intravenous contrast. Unenhanced images of the liver, spleen, pancreas, and adrenal glands arewithin normal limits. No lymphadenopathy. No free fluid in the abdomen or pelvis. No bowel dilatation orinflammatory changes. Osseous structures: No suspicious lesions. IMPRESSION IMPRESSION: A very small focus of probable calcification in the left kidney. Noother calcifications are identified. The study is otherwise normal. Mitra Srinivasan MD IMG CT ORDERABLES * Differential, Automated (02/08/2015 1:20 PM EDT) Neutrophil % 52.0 % CERNER MILLENNIUM Neutrophil Absolute 4.90 1.50 - 6.30 x10(3)/mcL CERNER MILLENNIUM Lymph % 36.6 % CERNER MILLENNIUM Lymphocytes Abs 3.4 1.0 - 3.6 x10(3)/mcL CERNER MILLENNIUM Monocyte % 7.7 % CERNER MILLENNIUM Monocyte Abs 0.7 0.2 - 1.0 x10(3)/mcL CERNER MILLENNIUM Eos % 3.3 % CERNER MILLENNIUM Eosinophils Abs 0.3 0.0 - 0.5 x10(3)/mcL CERNER MILLENNIUM Basophil % 0.2 % CERNER MILLENNIUM Baso Absolute 0.0 0.0 - 0.2 x10(3)/mcL CERNER MILLENNIUM Immature Gran % 0.20 % CERN ER MILLENNIUM Comment: Immature granulocytes(IG's)percentage and absolute count will include metamyelocytes, myelocytes, and promyelocytes. Blood smears from CBCs yielding IG's will be scanned manually for concordance. If this scan disagrees with the automated IG or if promyelocytes are noted, a manual differential will be performed. Immature Gran Absolute 0.02 0.00 - 0.05 x10(3)/mcL CERNER MILLENNIUM Blood specimen (specimen) 02/08/2015 1:20 PM EDT 02/08/2015 1:25 PM EDT Narrative Resulting Agency Comment Spec In Lab Mitra Srinivasan MD HEMATOLOGY ORDERABLE S ALLI EDOUARDIUM * Hemogram (02/08/2015 1:20 PM EDT) White Blood Cell 9.4 4.0 - 10.0 x10(3)/mcL CERNER MILLENNIUM Red Blood Cell 5.18 3.93 - 5.22 x10(6)/mcL CERNER MILLENNIUM Hemoglobin 15.4 11.2 - 15.7 gm/dL CERNER MILLENNIUM Hematocrit 44.6 34.0 - 45.0 % CERNER MILLENNIUM Mean Cell Volume 86.1 79.0 - 94.0 fL CERNER MILLENNIUM Mean Cell Hemoglobin 29.7 26.6 - 32.2 pg CERNER MILLENNIUM Mean Cell Hemoglobin Concentration 34.5 32.0 - 36.5 gm/dL CERNER MILLENNIUM Platelet 214 145 - 370 x10(3)/mcL CERNER MILLENNIUM RDW Standard Deviation 40.1 35.0 - 46.0 fL CERNER MILLENNIUM RDW coefficient of variation 12.8 10.9 - 14.4 % CERNER MILLENNIUM Mean Platelet Volume 10.7 9.0 - 12.0 fL CERNER MILLENNIUM Blood specimen (specimen) 02/08/2015 1:20 PM EDT 02/08/2015 1:25 PM EDT Narrative Resulting Agency Comment Spec In Lab Mitra Srinivasan MD HEMATOLOGY ORDERABLE S ALLI EDOUARDIUM * (ABNORMAL) Basic Metabolic Panel (non-fasting) (02/08/2015 1:20 PM EDT) Glucose 92 60 - 199 mg/dL CERNER MILLENNIUM Comment:Diabetes: >=200 mg/d L plus symptoms Blood Urea Nitrogen 21(H) 8 - 18 mg/dL CERNER MILLENNIUM Creatinine 1.39(H) 0.70 - 1.20 mg/dL CERNER MILLENNIUM Comment: Please note that the pediatric reference intervals supplied above were not validated at [facility] [place]. Results from pediatric patients should be interpreted in conjunction to the patient's age, height and muscle mass. Sodium 140 135 - 145 mmol/L CERNER MILLENNIUM Potassium [...] - 31 mmol/L CERNER MILLENNIUM Anion Gap 14 5 - 15 mmol/L CERNER MILLENNIUM Calcium 9.4 8.5 - 10.5 mg/dL CERNER MILLENNIUM Est Glomerular Filtration Rate 41(L) >=60 CERNER MILLENNIUM Comment: This estimated GFR [...] the following links into your internet browser. [email or web address] [email or web address] Blood specimen (specimen) 02/08/2015 1:20 PM EDT 02/08/2015 1:25 PM EDT Narrative Resulting Agency Comment Spec In Lab Mitra Srinivasan MD CHEMISTRY ORDERABLES CERASHA EDOUARDIUM * urine, qualitative (02/08/2015 1:18 PM EDT) Specific [place] Urine Non-automated 1.028 1.002 - 1.030 CERNER MILLENNIUM Human Chorionic Gonadotropin Qualitative, Urine Negative CERNER MILLENNIUM Comment: If Specific [place] is less than 1.010, a negative result is obtained, and is still suspected, a repeat on a first morning specimen is recommended. Urine specimen (specimen) Urine / Unknown 02/08/2015 1:18 PM EDT 02/08/2015 1:26 PM EDT Narrative Resulting Agency Comment Spec In Lab Mitra Srinivasan MD URINE ORDERABLES [facility] * Urine culture Clean Catch Urine (02/08/2015 1:18 PM EDT) Urine Culture ? Patient Name: TRACIE HAYDEN ?Ordered By: MITRA SRINIVASAN ? MR#: [id number] ?LOC: ??ED ? /Sex: ??1970 (44 years), ? Female ? PROCEDURE: Urine Culture ?SOURCE: U CC ? COLLECTED: 02/08/2015 13:18 ? STARTED: 02/08/2015 14:13 ? FINAL REPORT ? Final Report ? Verified: 015 13:55 ? 10,000-49,000 cfu/ml mixed mucosal eddie ? Note: Multiple bacterial morphotypes present. Suggest appropriate ? recollection with timely delivery to ? the laboratory, if clinically significant. ? CERNER MILLENNIUM Urine specimen obtained by clean catch procedure (specimen) 02/08/2015 1:18 PM EDT 02/08/2015 2:13 PM EDT Narrative Resulting Agency Comment Spec In Lab Mitra Srinivasan MD MICROBIOLOGY - [facility] ORDERABLES CERNER MILLENNIUM * (ABNORMAL) Urinalysis with microscopic (02/08/2015 1:18 PM EDT) Glucose, Urine Dipstick Negative Negative [...] considered if clinically indicated. Urobilinogen, Urine Dipstick >=4.0(A) Normal mg/dL CERNER MILLENNIUM pH, Urn (dipstick) 5.0 5.0 - 8.0 CERNER MILLENNIUM Blood, Urine Dipstick Large(A) Negative mg/dL CERNER MILLENNIUM Ketone, Urine Dipstick Negative Negative mg/dL CERNER MILLENNIUM Nitrite, Urine Dipstick Negative Negative CERNER MILLENNIUM Leukocytes, Urine Dipstick Trace(A) Negative mcL CERNER MILLENNIUM Appearance, Urine Dipstick Cloudy(A) Clear CERNER MILLENNIUM Specific [place] Urine Automated 1.027 1.002 - 1.030 CERNER MILLENNIUM Color, Urine Dipstick Suzan Yellow CERNER MILLENNIUM RBC, Urine 22(H) 0 - 4 /HPF CERNER MILLENNIUM WBC, Urine 4 0 - 5 /HPF CERNER MILLENNIUM Bacteria, Urine Few(A) None /HPF CERN ER MILLENNIUM Squamous Epithelial Cells, Urine 35(H) <=4 /HPF CERNER MILLENNIUM Urine specimen (specimen) 02/08/2015 1:18 PM EDT 02/08/2015 1:26 PM EDT Narrative Resulting Agency Comment Spec In Lab Mitra Srinivasan MD URINE ORDERABLES [facility] * (ABNORMAL) POCT urine dipstick (02/08/2015) POC Sp [place] 1.025 1.002 - 1.030 POC pH, UA 5.0 5.0 - 8.5 POC Leuk, UA n Negative - Negative POC Nitrite, UA n Negative - Negative POC Protein, UA n Negative - Negative mg/dL POC Glucose, UA trace Normal - Normal mg/dL POC Ketone, UA n Negative - Negative POC Urobil, UA trace 0.2 - 1.0 mg/dL POC Bili, UA n Negative - Negative POC Blood, UA pos+++ Negative - Negative niall/uL 02/08/2015 Mitra Srinivasan MD POINT OF CARE TEST O RDERABLES documented in this encounter Visit Diagnoses Diagnosis Flank pain Abdominal pain, unspecified site Hematuria, unspecified documented in this encounter Administered Medications Inactive Administered Medications - up to 3 most recent administrations Medication Order MAR Action Action Date Dose Rate Site sodium chloride 0.9% 1,000 mL IV bolus Intravenous, ONCE, 1 dose, On 02/08/15 at 1321 Given 02/08/2015 1:21 PM EDT documented in this encounter Active and Recently Administered Medications Times are shown in EDT. Scheduled Medication Order 02/06/2015 02/07/2015 02/08/2015 sodium chloride 0.9% 1,000 mL IV bolus (COMPLETED) Intravenous, ONCE, 1 dose, On 02/08/15 at 1321 1321 (Given - Provid er: Amber Coates RN) documented in this encounter Care Teams Business Analyst Sales Operations Relationship Specialty Start Date End Date Nicolle Spencer MD [facility] [address] [address] PCP - General 01/21/15 12/05/16 documented as of this encounter
--- OUTSIDE RECORDS SUMMARY | 2024-07-12 00:35 | XMS_ITS | Encounter Summary ---
Author Organization [facility] Address [facility] [place] [address] Care Team Providers Care Produce Inspector Name Role Phone Nicolle Spencer MD Primary Care Provider Encounter Details Date Type Department Care Team (Latest Contact Info) Description 02/16/2015 3:34 PM EDT - 02/16/2015 11:59 PM EDT Hospital [place] [address] Nicolle Spencer MD [facility] [address] Hematuria, unspecified Discharge Disposition: Home Social History [...] BY MOUTH AFTER 1 WEEK IF NEEDED 180 tablet 0 02/17/2015 02/18/2015 HYDROcodone-acetamin ophen 5-325 mg Tablet Take 1 [...] AM EDT Office Visit Internal Medicine at [address] [address] Gema Oliveira, [facility] [address] [facility] [address] documented as of this encounter Procedures Procedure Name Priority Date/Time Associated Diagnosis Comments CYTOPATHOLOGY NON-GYNECOLOGICAL Routine 02/16/2015 3:38 PM EDT Hematuria, unspecified documented in this encounter Results * Cytopathology Non-Gynecological (02/16/2015 3:38 PM EDT) AP Specimen 02/16/2015 3:38 PM EDT 02/16/2015 3:38 PM EDT Narrative ALLI MALDONADO - 02/16/2015 3:38 PM EDT Specimen requisition ordered. ??Separate Pathology report to follow Nicolle Spencer MD [facility] documented in this encounter Visit Diagnoses Diagnosis Hematuria, unspecified documented in this encounter Care Teams Produce Inspector Relationship Specialty Start Date End Date Nicolle Spencer MD [facility] [address] [address] PCP - General 01/21/15 12/05/16 documented as of this encounter
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
--- OUTSIDE RECORDS SUMMARY | 2024-07-12 00:36 | XMS_ITS | Encounter Summary ---
Author Organization [facility] [place] [address] Care Team Providers Care Form Tamper Name Role Phone Erika Richardson APRN Primary Care Provider +1- [phone] Encounter Details Date Type Department Care Team (Late st Contact Info) Description 09/29/2014 [place] [id number] Kathryn Sandoval LPN Social History Tobacco Use Types Packs/Day Years [...] encounter Miscellaneous Notes * Telephone Encounter - Kathryn Sandoval LPN - 09/29/2014 9:54 AM EST Migranal spray faxed to [facility] documented in this encounter Plan of Treatment Upcoming Encounters Date Type Department Care Team (Late st Contact Info) Description 09/05/2024 9:00 AM EDT Office Visit Internal Medicine at [address] [address] Gema Oliveira, [facility] [place] [address] documented as of this encounter Visit Diagnoses Not on filedocumented in this encounter Care Teams Form Tamper Relationship Specialty Start Date End Date Erika Richardson APRN [facility] [place] [address] PCP - General 09/26/14 01/05/15 documented as of this encounter
--- OUTSIDE RECORDS SUMMARY | 2024-07-12 00:36 | XMS_ITS | Encounter Summary ---
Author Organization [facility] Address [facility] [place] [address] Care Team Providers Care Hand Miter Operator Name Role Phone Miriam Miller Primary Care Provider [phone] Encounter Details Date Type Department Care Team (Latest Contact Info) Description 01/20/2015 2:33 PM EST - 01/20/2015 11:59 PM [facility] Hospital [place] [address] Gracie Mark MD [facility] [place] [address] Persistent headaches; Chronic migraine Discharge Disposition: Home Social History Tobacco Use [...] Sig Dispensed Refills Start Date End Date topiramate (TOPAMAX) 100 mg Tablet Take 1 [...] with headache). 15 suppository 5 09/29/2014 03/09/2015 cyproheptadine (PERIACTIN) 4 mg Tablet Take 1 tablet by mouth every evening. 30 tablet 3 09/29/2014 01/26/2015 gabapentin (NEURONTIN) 600 mg TabletIndications:Po sttraumatic headache,Cervicalgia [...] EDT Office Visit Internal Medicine at [address] [address] Gema Oliveira, [facility] [place], [place] [id number] documented as of this encounter Procedures Procedure Name Priority Date/Time Associated Diagnosis Comments HEMOGRAM Routine 01/20/2015 2:45 PM EST Persistent headaches Chronic migraine DIFFERENTIAL, AUTOMATED Routine 01/20/2015 2:45 PM EST Persistent headaches Chronic migraine CBC (WITH DIFF) Routine 01/20/2015 2:45 PM EST Persistent headaches Chronic migraine COMPREHENSIVE METABOLIC PANEL Routine 01/20/2015 2:45 PM EST Persistent headaches Chronic migraine documented in this encounter Results * (ABNORMAL) Differential, Automated (01/20/2015 2:45 PM EST) Neutrophil % 50.0 % CERNER MILLENNIUM Neutrophil Absolute 4.66 1.50 - 6.30 x10(3)/mc L CERNER MILLENNIUM Lymph % 39.4 % CERNER MILLENNIUM Lymphocytes Abs 3.7(H) 1.0 - 3.6 x10(3)/mc L CERNER MILLENNIUM Monocyte % 5.5 % CERNER MILLENNIUM Monocyte Abs 0.5 0.2 - 1.0 x10(3)/mc L CERNER MILLENNIUM Eos % 4.5 % CERNER MILLENNIUM Eosinophils Abs 0.4 0.0 - 0.5 x10(3)/mc L CERNER MILLENNIUM Basophil % 0.2 % CERNER MILLENNIUM Baso Absolute 0.0 0.0 - 0.2 x10(3)/mc L CERNER MILLENNIUM Immature Gran % 0.40 % CERN ER MILLENNIUM Comment: Immature granulocytes(IG's)percentage and absolute count will include metamyelocytes, myelocytes, and promyelocytes. Blood smears from CBCs yielding IG's will be scanned manually for concordance. If this scan disagrees with the automated IG or if promyelocytes are noted, a manual differential will be performed. Immature Gran Absolute 0.04 0.00 - 0.05 x10(3)/mc L CERNER MILLENNIUM Blood specimen (specimen) 01/20/2015 2:45 PM EST 01/20/2015 2:49 PM EST Narrative Resulting Agency Comment Spec In Lab Gracie Mark MD HEMATOLOGY ORDERABLE S Performing Organization Address [facility]/ZIP Co de Phone Number CERASHA STEVENENNIUM * Hemogram (01/20/2015 2:45 PM EST) White Blood Cell 9.3 4.0 - 10.0 x10(3)/mcL CERNER MILLENNIUM Red Blood Cell 4.66 3.93 - 5.22 x10(6)/mcL CERNER MILLENNIUM Hemoglobin 13.6 11.2 - 15.7 gm/dL CERNER MILLENNIUM Hematocrit 40.6 34.0 - 45.0 % CERNER MILLENNIUM Mean Cell Volume 87.1 79.0 - 94.0 fL CERNER MILLENNIUM Mean Cell Hemoglobin 29.2 26.6 - 32.2 pg CERNER MILLENNIUM Mean Cell Hemoglobin Concentration 33.5 32.0 - 36.5 gm/dL CERNER MILLENNIUM Platelet 173 145 - 370 x10(3)/mcL CERNER MILLENNIUM RDW Standard Deviation 40.4 35.0 - 46.0 fL CERNER MILLENNIUM RDW coefficient of variation 12.7 10.9 - 14.4 % CERNER MILLENNIUM Mean Platelet Volume 10.8 9.0 - 12.0 fL CERNER MILLENNIUM Blood specimen (specimen) 01/20/2015 2:45 PM EST 01/20/2015 2:49 PM EST Narrative Resulting Agency Comment Spec In Lab Gracie Mark MD HEMATOLOGY ORDERABLE S Performing Organization Address [facility] Co de Phone Number CERASHA STEVENENNIUM * (ABNORMAL) Comprehensive metabolic panel (non-fasting) (01/20/2015 2:45 PM EST) Glucose 118 60 - 199 mg/dL CERNER MILLENNIUM Comment:Diabetes: >=200 mg/d L plus symptoms Blood Urea Nitrogen 19(H) 8 - 18 mg/dL CERNER MILLENNIUM Creatinine 1.17 0.70 - 1.20 mg/dL CERNER MILLENNIUM Comment: Please note that the pediatric reference intervals supplied above were not validated at [facility]. Results from pediatric patients should be interpreted in conjunction to the patient's age, height and muscle mass. Sodium 141 135 - 145 mmol/L CERNER MILLENNIUM Potassium 4.4 3.5 - 5.0 mmol/L CERNER MILLENNIUM Comment: Please note: ??Patients with WBC >100,000 may have falsely elevated Potassium levels. ??For accurate Potassium quantification in these patients send serum separator tube (gold top) for subsequent determinations. ??Contact the Clinical Chemistry Laboratory if there are any questions. Chloride 105 98 - 107 mmol/L CERNER MILLENNIUM Carbon Dioxide 25 22 - 31 mmol/L CERNER MILLENNIUM Anion Gap 11 5 - 15 mmol/L CERNER MILLENNIUM Calcium 9.5 8.5 - 10.5 mg/dL CERNER MILLENNIUM Protein, Total 6.9 6.1 - 8.0 gm/dL CERNER MILLENNIUM Albumin 4.1 3.2 - 5.2 gm/dL CERNER MILLENNIUM Aspartate Aminotransferase 16 0 - 30 unit/L CERNER MILLENNIUM Alanine Aminotransferase 20 0 - 30 unit/L CERNER MILLENNIUM Alkaline Phosphatase 52 40 - 104 unit/L CERNER MILLENNIUM Bilirubin, Total 0.2 0.2 - 1.3 mg/dL CERNER MILLENNIUM Comment:result rechecked-NM Bilirubin, Direct 0.1 0.0 - 0.3 mg/dL CERNER MILLENNIUM Est Glomerular Filtration Rate 50(L) >=60 CERNER MILLENNIUM Comment: This estimated GFR [...] the following links into your internet browser. [email or web address] Blood specimen (specimen) 01/20/2015 2:45 PM EST 01/20/2015 2:49 PM EST Narrative Resulting Agency Comment Spec In Lab Gracie Mark MD CHEMISTRY ORDERABLES [facility] documented in this encounter Visit Diagnoses Diagnosis Persistent headaches Headache Chronic migraine Chronic migraine without aura, without mention of intractable migraine without mention of status migrainosus documented in this encounter Care Teams Hand Miter Operator Relationship Specialty Start Date End Date Miriam Miller PA [facility] [address] [place] [address] PCP - General 01/06/15 01/20/15 documented as of this encounter
--- OUTSIDE RECORDS SUMMARY | 2024-07-12 00:36 | XMS_ITS | Encounter Summary ---
Author Organization [facility] [place] [address] Care Team Providers Care Badger Distiller Operator Name Role Phone Erika Richardson APRN Primary Care Provider [phone] Encounter Details Date Type Department Care Team (Late st Contact Info) Description 08/13/2014 12:45 PM EDT [place] [address] Beronica Gan RETAIL DIRECTOR [facility] [place] [address] Cervicogenic headache; Posttraumatic headache Discharge Disposition: Home Social History Tobacco Use [...] Sign Reading Time Taken Comments Blood Pressure 127/81 08/13/2014 12:58 PM EDT Pulse 106 08/13/2014 12:58 PM EDT Temperature - - Respiratory Rate - - Oxygen Saturation - - Inhaled Oxygen Concentration - - Weight 112.9 kg (249 lb) 08/13/2014 12:58 PM EDT Height 177.8 cm (5' 10) 08/13/2014 12:58 PM EDT Body Mass Index 35.73 08/13/2014 12:58 PM EDT documented in this encounter Progress Notes * Beronica Gan, SARITHA - 08/13/2014 12:58 PM EDT CC:This is a 43 y.o. woman, [...] lose of consciousness. She was seen at [facility] ER for her injuries. At that time [...] fall. She denies weakness in her upper extreme ties. Triggers:bright lights, sounds (especially when her dogs [...] follow-up of her headaches accompanied with her daughter. She has been seen by Dr. Abernathy and has not been evaluated by Dr. Meyer or Dr. Mark. With her initial appointment with Dr. Abernathy she performed ONBS which provided 6 days of being headache free. During that appointment she offered preventives, but the patient refused at that time. Unfortunately her headaches increased in severity and she requested to start a preventive over the phone. Dr. 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 Headache is 5-6/10 in office today. Theoxycodone and methadone that she takes daily is for her back pain, but does not help her headache nor neck pain. She continues to have daily constant headaches and the only relief she has had was 6 days of being headache free after her ONBs. She has a lot of tenderness in the back of her head. Review of systems: chronic daily head pain as above, neck/back pain, depression, irritability. All other systems were negative. Objective: Filed Vitals: 08/13/14 1258 BP: 127/81 Pulse: 106 Physical Exam Constitutional: Well-developed, well-nourished, and in no distress. Head: Normocephalic and atraumatic. Eyes: EOM are normal. Pupils are equal, round, and reactive to light. 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 Occipital nerves ULISSES exquisitely tender, neck musculature tightness Cardiovascular: Normal rate and regular rhythm. Pulmonary/Chest: Effort normal and breath sounds normal. Neurologic Exam Mental Status Level of consciousness: alert Cranial Nerves Cranial nerves II through XII intact. CN III, IV, Pupils are equal, round, and reactive to light. Fundi benign Extraocular motions are normal (very mild nystagmus) Motor Exam Muscle bulk: normal Overall muscle tone: normal Strength Strength 5/5 throughout. Sensory Exam Light touch normal, Vibration normal, except patient was unable to identify cold sensation on left lower lateral extremity right above the malleolus Proprioception normal. Stereognosis: normal Gait, Coordination, and Reflexes Gait Gait: normal Coordination Romberg: mild swaying, Finger to nose coordination: normal, though patient had to repeat both sides Tandem walking coordination: normal Reflexes Reflexes 2+ except as noted. Right plantar: normal Left plantar: normal Assessment: Posttraumatic Headaches Post concussive Headaches Analgesic rebound (medication overuse headache)-- daily narcotics Cervicalgia Plan: This patient is less then 3 months out from her injury with a continuous headache that developed within 7 days of her injury, which is consider posttraumatic headache. She is on multiple medications that could cause medication overuse headache and could possible interfere with headache therapy working to it's full capability. Amitriptyline is consider first line of therapy, which could possibly help her mood and sleep as well. But unfortunately she is on methadone which could prolong QTc interval as well. We will get an ekg and if QTc is within nml range nml will start amitriptyline therapy. If QTc interval is out of range, etc will increase her current dose of gabapentin for headachepreventive. We will also get a MRI brain w/wo contrast since this patient continues to have constant daily chronic headaches post her fall in May to r/o secondary pathology that could be driving theheadaches such as Chiari, etc . Will get tsh, vitamin B12, esr and HgbA1c today. She did respond to ONBs x 6 days, so performed ULISSES GONBs and LONBs Consent was obtained and a time-out was conducted just before the start of the procedure to verify the correct: patient, procedure, procedure location and all relevant critical information. Sterile technique was used. An area of tenderness was palpated in the region of the greater occipital nerve. Injection sites were sterilized with 70% isopropyl alcohol. A mixture of 0.75mL of 0.25% bupivicaine and 0.75mL of 1% lidocaine was then injected in the region surrounding both greater and lesser occipital nerves. The patient tolerated the procedure without any complications. Consider TPIs Consider Cyproheptadine for sleeping, preventive Consider cervical MRI Consider atenolol, preventive Consider hydroxyzine, abortive Follow up plan: The patient will follow up in Headache Clinic in 3-4 weeks or call as needed. At least 40 minutes of this 60 minute face to face visit was spent counseling and therapeutic planning discussing potential adverse effects of all medications were discussed in detail (gabapentin/?amitriptyline), reasoning for labs/mri, ONBs, WATKINS calendars. We also discussed non-pharmacological approaches chronic headaches (relaxation) as well as coping strategies. I answered all of the patient's questions and she was comfortable with the plan. documented in this encounter Plan of Treatment Upcoming Encounters Date Type Department Care Team (Late st Contact Info) Description 09/05/2024 9:00 AM EDT Office Visit Internal Medicine at [address] [facility] [place] [address] documented as of this encounter Procedures Procedure Name Priority Date/Time Associated Diagnosis Comments EKG 12-LEAD Routine 08/13/2014 2:36 PM EDT Cervicogenic headache Posttraumatic headache documented in this encounter Results * Sedimentation rate (09/29/2014 10:00 AM EST) Sedimentation Rate Automated 8 0 - 20 mm/hr ALLI MALDONADO Blood specimen (specimen) 09/29/2014 10:00 AM EST 09/29/2014 10:03 AM EST Narrative Resulting Agency Comment Spec In Lab Joseph Meyer MD HEMATOLOGY ORDERABLE S Performing Organization Address City/[facility] Co de Phone Number ALLI MALDONADO * Vitamin B12 (09/29/2014 10:00 AM EST) Vitamin B12 415 207 - 974 pg/mL [facility] Blood specimen (specimen) 09/29/2014 10:00 AM EST 09/29/2014 10:03 AM EST Narrative Resulting Agency Comment Spec In Lab Joseph Meyer MD CHEMISTRY ORDERABLES Performing Organization Address [facility] Co de Phone Number [facility] * (ABNORMAL) Hemoglobin A1c (09/29/2014 10:00 AM EST) Hemoglobin A1c 5.7(H) <=5.6 % [facility] Comment: Reference Range: 4.3 - 5.6% 5.7 - 6.4% - Increased Risk of Developing Diabetes Mellitus 6.5% - Consistent with diagnosis of Diabetes Mellitus In the absence of hyperglycemia (i.e. plasma glucose > 200 mg/dL) or classic symptoms of hyperglycemia a repeat measurement of HbA1c should be performed on a separate sample to confirm the diagnosis. Diagnosis and Classification of Diabetes Mellitus, Diabetes Care 2013; 36: Suppl. 1, E47-60 Estimated Average Glucose 117 mg/dL [facility] Comment: eAG equivalents for HbA1c percentages: HbA1c(%) ?eAG(mg/dL) 6.0 ?126 6.5 ?140 7.0 ?154 7.5 ?169 8.0 ?183 8.5 ?197 9.0 ?212 9.5 ?226 10.0 ? 240 Limitations: The eAG calculation has not been validated on women, individuals below 18 years old and above 70 years old, and individuals with hemoglobinopathies. Additional resources are available on the ADA website: http://[employer].MobileOCT/DHMCadacalc Preet ZARATE, Heather J, Linh R, et al. ??Translating the A1C assay into estimated average glucose values. ??Diabetes Care 2008:31(8):0830-3003. Blood specimen (specimen) 09/29/2014 10:00 AM EST 09/29/2014 10:03 AM EST Narrative Resulting Agency Comment Spec In Lab Joseph Meyer MD CHEMISTRY ORDERABLES ALLI MALDONADO * TSH (09/29/2014 10:00 AM EST) Thyroid Stimulating Hormone 1.95 0.27 - 4.20 mcIU/mL ALLI MALDONADO Blood specimen (specimen) 09/29/2014 10:00 AM EST 09/29/2014 10:03 AM EST Narrative Resulting Agency Comment Spec In Lab Joseph Meyer MD CHEMISTRY ORDERABLES ALLI MALDONADO * MRI brain with/WO contrast (09/19/2014 9:35 AM EDT) Anatomical Region Laterality Modality Head Magnetic Resonan ce 09/19/2014 9:35 AM EDT Narrative 09/20/2014 9:00 AM EDT Examination MR BRAIN W/WO CONTRAST Clinical History chronic daily headaches, neck pain, traumatic fall Comparison None Technique MRI of the brain with and without contrast. ??Routine protocol. ??20 mL of Magnevist administered. Findings There are no intracranial masses, mass effect or extra-axial collections. ?? There is a single nonspecific focus of signal alteration within the left centrum semiovale. Ventricles and sulci are proportional size. ??The midline structures are unremarkable. No abnormal enhancement. ??The proximal intracranial flow voids appear normal. ??No significant paranasal sinus disease. Impression No significant abnormalities. Procedure Note Eb Huddleston MD - 09/20/2014 Examination MR BRAIN W/WO CONTRAST Clinical History chronic daily headaches, neck pain, traumatic fall Comparison None Technique MRI of the brain with and without contrast. Routine protocol. 20 mL of Magnevist administered. Findings There are no intracranial masses, mass effect or extra-axial collections. There is a single nonspecific focus of signal alteration within the left centrum semiovale. Ventricles and sulci are proportional size. Themidline structures are unremarkable. No abnormal enhancement. The proximal intracranial flow voids appear normal. No significant paranasal sinusdisease. Impression No significant abnormalities. Joseph Meyer MD IMG MRI ORDERABLES * EKG 12 Lead (08/13/2014 2:36 PM EDT) Ventricular rate 86 BPM MUSE SYSTEM Atrial Rate 86 BPM MUSE SYSTEM P-R Interval 128 ms MUSE SYSTEM QRS Duration 70 ms MUSE SYSTEM Q-T Interval 370 ms MUSE SYSTEM QTC Calculated (Bezet) 442 ms MUSE SYSTEM Calculated P [place] 50 degrees MUSE SYSTEM Calculated R [place] 31 degrees MUSE SYSTEM Calculated T [place] 10 degrees MUSE SYSTEM INTERPRETATION Normal sinus rhythm Flattened T wave in lead III No previous ECGs available Confirmed by MD Jacobsen Megan ([id number]) on 08/15/2014 8:49:06 AM MUSE SYSTEM 08/13/2014 2:36 PM EDT 08/15/2014 8:49 AM EDT Joseph Meyer MD ECG ORDERABLES MUSE SYSTEM documented in this encounter Visit Diagnoses Diagnosis Cervicogenic headache Headache Posttraumatic headache Post-traumatic headache, unspecified Cervicogenic headache Headache Posttraumatic headache Post-traumatic headache, unspecified documented in this encounter Administered Medications Inactive Administered Medications - up to 3 most recent administrations Medication Order MAR Action Action Date Dose Rate Site BUpivacaine (PF) (MARCAINE) 0.25 % (2.5 mg/mL) injection 7.5 mg 7.5 mg, Subcutaneous, ONCE, 1 dose, On Mon08/13/14 at 1430, Routine Given 08/13/2014 2:20 PM EDT 7.5 mg lidocaine (PF) (XYLOCAINE) 10 mg/mL (1 %) injection 30 mg 30 mg, Subcutaneous, ONCE, 1 dose, On Mon08/13/14 at 1430, Routine Given 08/13/2014 2:20 PM EDT 30 mg documented in this encounter Care Teams Badger Distiller Operator Relationship Specialty Start Date End Date Erika [place] [place] [address] PCP - General 07/10/14 09/25/14 documented as of this encounter
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
--- OUTSIDE RECORDS SUMMARY | 2024-07-12 00:36 | XMS_ITS | Encounter Summary ---
Author Organization [facility] Address [facility] [place] [address] Care Team Providers Care Solutions Architect Name Role Phone Erika Richardson APRN Primary Care Provider +1- [phone] Reason for Visit * Reason Comments Other Encounter Details Date Type Department Care Team (Late st Contact Info) Description 11/17/2014 Telephone Internal Medicine at [address] [address] Miriam Miller PA [facility] [place] [address] Social History Tobacco Use Types Packs/Day Years [...] encounter Miscellaneous Notes * Telephone Encounter - Raquel Mcnamara - 11/17/2014 1:25 PM EST CALLED AND LVM THAT [facility]FERRAL AND THAT WE WOULD NEED TO SCHEDULE. I DID ALSO GIVEHER THE NUMBER TO CALL ON HER OWN IF SHE WOULD LIKE TO. * Telephone Encounter - Raquel Mcnamara - 11/17/2014 1:24 PM EST ----- Message from HERNANDEZ Jimenez sent at 11/17/2014 10:11 AM EST ----- Regarding: MAT CLEANING MACHINE OPERATOR referral MAT CLEANING MACHINE OPERATOR referral in for her. Thanks - Kindra documented in this encounter Plan of Treatment Upcoming Encounters Date Type Department Care Team (Late st Contact Info) Description 09/05/2024 9:00 AM EDT Office Visit Internal Medicine at [address] [address] Gema Oliveira, [facility] GENERAL [place] [address] documented as of this encounter Visit Diagnoses Not on filedocumented in this encounter Care Teams Solutions Architect Relationship Specialty Start Date End [place] [address] PCP - General 09/26/14 01/05/15 documented as of this encounter
--- OUTSIDE RECORDS SUMMARY | 2024-07-12 00:36 | XMS_ITS | Encounter Summary ---
Author Organization [facility] [place] [address] Care Team Providers Care Comb Setter Name Role Phone Erika Richardson APRN Primary Care Provider +1- [phone] Reason for Visit * Reason Comments Medication Refill Encounter Details Date Type Department Care Team (Late st Contact Info) Description 12/25/2014 Refill Internal Medicine at [address] [address] Miriam Miller PA [facility] GENER[facility] INTERNAL [place] [address] Social History Tobacco Use Types Packs/Day Years [...] EDT Office Visit Internal Medicine at [address] [address] Gema Oliveira DO [facility] [address] [facility] [place] [address] documented as of this encounter Visit Diagnoses Not on filedocumented in this encounter Care Teams Comb Setter Relationship Specialty Start Date End Date Erika Richardson, [place] [address] [place] [address] PCP - General 09/26/14 01/05/15 documented as of this encounter
--- OUTSIDE RECORDS SUMMARY | 2024-07-12 00:36 | XMS_ITS | Encounter Summary ---
Author Organization [facility] [place] [address] Care Team Providers Care Solar Photovoltaic Installer Name Role Phone Erika Richardson APRN Primary Care Provider +1- [phone] Encounter Details Date Type Department Care Team (Late st Contact Info) Description 11/03/2014 Orders Only Internal Medicine at [address] [address] Froilan Crane MD [facility] [place] [address] Social History Tobacco Use Types Packs/Day Years [...] EDT Office Visit Internal Medicine at [address] [address] Gema Oliveira DO [facility] [place] [address] documented as of this encounter Procedures Procedure Name Priority Date/Time Associated Diagnosis Comments FILM LIBRARY STORAGE ONLY MR PELVIS Routine 11/03/2014 4:21 PM EST documented in this encounter Results * Film Library- Storage only MR Pelvis (11/03/2014 4:21 PM EST) Anatomical Region Laterality Modality Other 11/03/2014 4:21 PM EST Narrative 11/06/2014 4:26 PM EST This is a Non-reportable exam Procedure Note VALERIA, UNSIGNED REPORT - 11/06/2014 This is a Non-reportable exam Froilan Crane MD IMG FILM LIBRARY ORD ERABLES documented in this encounter Visit Diagnoses Not on filedocumented in this encounter Care Teams Solar Photovoltaic Installer Relationship Specialty Start Date End Date Erika Richardson APRN [place] [address] PCP - General 09/26/14 01/05/15 documented as of this encounter
--- OUTSIDE RECORDS SUMMARY | 2024-07-12 00:36 | XMS_ITS | Encounter Summary ---
[place] [address] Care Team Providers Care Picker Packer Name Role Phone Erika Richardson APRN Primary Care Provider +1- [phone] Reason for Visit * Reason Onset Date Comments Other 10/02/2014 Encounter Details Date Type Department Care Team (Late st Contact Info) Description 10/02/2014 Telephone Internal Medicine at [address] [address] Emerita Rankin Other Social History [...] Telephone Encounter - Leah Raines RN - 10/02/2014 1:25 PM EST Advised Tylenol for fever/discomfort, otherwise call her pharmacist for advice. * Telephone Encounter - Emerita Waite - 10/02/2014 11:10 AM EST Pt has a cold and would like to know what she can take that wont interfere with her current meds. documented in this encounter Plan of Treatment Upcoming Encounters Date Type Department Care Team (Late st Contact Info) Description 09/05/2024 9:00 AM EDT Office Visit Internal Medicine at [address] [address] Gema Oliveira, [facility] GENERAL [place] [address] documented as of this encounter Visit Diagnoses Not on filedocumented in this encounter Care Teams Picker Packer Relationship Specialty Start Date [place] [address] PCP - General 09/26/14 01/05/15 documented as of this encounter
--- OUTSIDE RECORDS SUMMARY | 2024-07-12 00:36 | XMS_ITS | Encounter Summary ---
Author Organization [facility] [place] [address] Care Team Providers Care Solid Waste Facility Operator Name Role Phone Erika Richardson APRN Primary Care Provider +1- [phone] Encounter Details Date Type Department Care Team (Late st Contact Info) Description 08/13/2014 Orders [place] [address] Sabrina Messina Social History Tobacco Use Types Packs/Day Years [...] EDT Office Visit Internal Medicine at [address] [address] Gema Oliveira, [facility] GENER[place] [address] documented as of this encounter Visit Diagnoses Not on filedocumented in this encounter Care Teams Solid Waste Facility Operator Relationship Specialty Start Date End Date Erika [place] [address] [place] [address] PCP - General 07/10/14 09/25/14 documented as of this encounter
--- OUTSIDE RECORDS SUMMARY | 2024-07-12 00:36 | XMS_ITS | Encounter Summary ---
Author Organization [facility] [place] [address] Care Team Providers Care Conceptor Name Role Phone Cece Herrera MD Primary Care Provider +1- [phone] Encounter Details Date Type Department Care Team (Late st Contact Info) Description 06/21/2013 External Results XRay at [address] [place] [address] Provider, Scanning Social History Tobacco Use Types Packs/Day Years Used Date Smoking Tobacco: Every Day Cigarettes 1 25 Sex and Gender Information Value Date Recorded Sex Assigned at Not on file Gender Identity Not on file Sexual Orientation Not on file documented as of this encounter Plan of Treatment Upcoming Encounters Date Type Department Care Team (Late st Contact Info) Description 09/05/2024 9:00 AM EDT Office Visit Internal Medicine at [address] [address] Gema Oliveira, [facility] GENERAL [place] [address] documented as of this encounter Procedures Procedure Name Priority Date/Time Associated Diagnosis Comments MRI/MRA SCAN Routine 06/11/2013 documented in this encounter Results * Scan Doc: MRI/MRA (06/11/2013) Anatomical Region Laterality Modality Other Scanning Provider MEDIA MGR SCAN EXT O RDR/RSLT documented in this encounter Visit Diagnoses Not on filedocumented in this encounter Care Teams Conceptor Relationship Specialty Start Date End Date Cece Herrera MD [address] [place] [address] PCP - General 10/12/10 03/04/14 documented as of this encounter
--- OUTSIDE RECORDS SUMMARY | 2024-07-12 00:36 | XMS_ITS | Encounter Summary ---
Author Organization [facility] [place] [address] Care Team Providers Care Tree Worker Name Role Phone Erika Richardson APRN Primary Care Provider +1- [phone] Encounter Details Date Type Department Care Team (Late st Contact Info) Description 10/15/2014 Telephone Internal Medicine at [address] [address] Miriam Miller PA [facility] [place] [address] Social History Tobacco Use Types Packs/Day Years [...] Telephone Encounter - Leah Raines RN - 10/15/2014 11:26 AM EST Patient informed of new script sent to Juli with instructions. She v/u. * Telephone Encounter - Miriam Miller PA - 10/15/2014 11:19 AM EST Isabel- can you call and let her know that I will call in Rx for Mirapex. 0.125 mg tabs. Start with 1 tab QHS 2-3 hrs before bed time. Can increase to 2 tabs a night if needed after 1 week. Let me know if she has any questions. Randy - Kindra documented in this encounter Plan of Treatment Upcoming Encounters Date Type Department Care Team (Late st Contact Info) Description 09/05/2024 9:00 AM EDT Office Visit Internal Medicine at [address] [address] Gema Oliveira, [facility] GENERAL [place] [address] documented as of this encounter Visit Diagnoses Diagnosis RLS (restless legs syndrome) Restless legs syndrome (RLS) documented in this encounter Care Teams Tree Worker Relationship Specialty Start Date End Date Erika Richardson APRN [facility] [place] [address] PCP - General 09/26/14 01/05/15 documented as of this encounter
--- OUTSIDE RECORDS SUMMARY | 2024-07-12 00:36 | XMS_ITS | Encounter Summary ---
[place] [address] Care Team Providers Care Die Developer Name Role Phone Erika Richardson APRN Primary Care Provider +1- [phone] Reason for Visit * Reason Onset Date Comments Other 10/31/2014 Encounter Details Date Type Department Care Team (Late st Contact Info) Description 10/31/2014 Telephone Internal Medicine at [address] [address] Emerita Rankin Other Social History [...] Telephone Encounter - Leah Raines RN - 11/03/2014 10:40 AM EST Dive Supervisor faxed the order last week. * Telephone Encounter - Emerita Waite - 10/31/2014 11:02 AM EST Pt needs an order put in for an open MRI that kody wants her to have. documented in this encounter Plan of Treatment Upcoming Encounters Date Type Department Care Team (Late st Contact Info) Description 09/05/2024 9:00 AM EDT Office Visit Internal Medicine at [address] [address] Gema Oliveira, [facility] GENERAL [place] [address] documented as of this encounter Visit Diagnoses Not on filedocumented in this encounter Care Teams Die Developer Relationship Specialty Start Date End Date Erika Richardson APRN [facility] [place] [address] PCP - General 09/26/14 01/05/15 documented as of this encounter
--- OUTSIDE RECORDS SUMMARY | 2024-07-12 00:36 | XMS_ITS | Encounter Summary ---
Author Organization [facility] Address [facility] [place] [address] Care Team Providers Care Pulp Maker Name Role Phone Cece Herrera MD Primary Care Provider +1- [phone] Encounter Details Date Type Department Care Team (Latest Contact Info) Description 01/08/2014 4:04 PM EST - 01/08/2014 5:26 PM EST Hospital Encounter [place] [address] Ilya Whitney MD [facility] [place] [address] Discharge Disposition: Home Social History Tobacco Use Types Packs/Day Years Used Date Smoking Tobacco: Every Day Cigarettes 1 25 Smokeless Tobacco: Never Comments:avs information giv en Alcohol Use Standard Drinks/Week Comments Yes 0 (1 standard drink = 0.6 oz pur e alcohol) rarely Sex and Gender Information Value Date Recorded Sex Assigned at Not on file Gender Identity Not on file Sexual Orientation Not on file documented as of this encounter Last Filed Vital Signs Vital Sign Reading Time Taken Comments Blood Pressure 119/79 01/08/2014 4:52 PM EST Pulse 105 01/08/2014 4:52 PM EST Temperature - - Respiratory Rate 22 01/08/2014 4:15 PM EST Oxygen Saturation 99% 01/08/2014 4:52 PM EST Inhaled Oxygen Concentration - - Weight - - Height - - Body Mass Index - - documented in this encounter Discharge Instructions * Discharge Instructions* Gillian Valdovinos RN - 01/08/2014 4:56 PM EST UPPER GI ENDOSCOPY WHAT TO EXPECT AFTER THE PROCEDURE After the test you may feel a little more gassy or bloated than usual, this is normal. ACTIVITY Because of the sedation that you received your judgement and reaction time are affected Go home and rest quietly for the remainder of the day. You may resume your normal activities tomorrow. Change from one position to the next slowly. You may lose your balance unexpectedly Be careful on stairs, as you may be unsteady on your feet. FOR THE NEXT [address] OR OPERATE ANY MACHINERY DO NOT DRINK ALCOHOLIC BEVERAGES DO NOT SIGN LEGAL DOCUMENTS If you are a smoker: DO NOT SMOKE WHILE YOU ARE ALONE Diet Start by eating small portions of foods that ordinarily will not upset your stomach. Be gentle withwhat you choose to start with. Drink plenty of fluids ( unless otherwise told not to) Medications You may have a mild sore throat. Ice chips, popsicles, over the counter throat lozenges or spray may help numb your throat. This procedure should not cause a fever. IV SITE-- slight redness or tenderness is normal, you can use warm compresses if you get concerned.If the tenderness +/or redness increases or foul drainage and a red streak occurs, please contact your PCP immediately. WHEN SHOULD YOU CALL FOR HELP? Call 701 anytime you think that you need emergency care. For example, call if: You passed out (lost consciousness). You cough up blood. You vomit blood or what looks like coffee grounds. You pass maroon or very bloody stools. Call your healthcare provider or seek immediate medical attention if: You have trouble swallowing. You have belly pain. Your stools are black or tarlike or have streaks of blood. You are sick to your stomach or cannot keep fluids down. Watch closely for changes in your health, and be sure to contact your doctor IF Your throat still hurts after a day or two You do not get better as expected. Monday-Monday Clinic [phone] 8a-5p Same Day Endo [phone] 7a-8p Otherwise contact [phone] and ask to speak to the plowing gardens baton teacher Follow-up care is a sandhu part of your treatment and safety. Be sure to make and go to all appointments, and call your doctor if you are having problems. Instructions have been reviewed and patient expresses understanding * Patient Instructions* Ilya Whitney MD - 01/08/2014 4:48 PM EST Please see Recommendations in the Provation procedure report which is documented in the procedural note in E-DH.] documented in this encounter Medications at Time of Discharge Medication Sig Dispensed Refills Start Date End Date albuterol (PROVENTIL HFA;VENTOLIN HFA) 90 mcg/actuation inhaler Inhale 2 puffs into the lungs every 4 hours as needed. Use with spacer 09/30/2014 fluticasone-salmeterol (ADVAIR) 100-50 mcg/dose diskus inhaler Inhale 1 puff into the lungs every 12 hours. 09/30/2014 dextroamphetamine-ampheta mine (ADDERALL) 20 mg tablet Take 20 mg by mouth daily. 09/30/2014 oxyCODONE (ROXICODONE) 15 mg immediate release tablet Take 10 mg by mouth every 4 hours as needed. 07/14/2014 methadone (DOLOPHINE) 5 mg tablet Take by mouth. 10 mg am/ 10 mg pm/ 20 mg @ Hs 09/19/2014 cyclobenzaprine (FLEXERIL) 10 mg tablet Take 10 mg by mouth 3 times daily as needed. 09/19/2014 documented as of this encounter H&P Notes * Ilya Whitney MD - 01/08/2014 4:30 PM EST Gastroenterology and Hepatology Pre-Procedure History and Physical Exam Procedure: EGD: Indication: Intractable nausea and vomiting There is no problem list on file for this patient. EXAM: Obese WF NAD HEENT: Airway examined, oropharynx clear LUNGS: Clear to auscultation HEART: Regular rate and rhythm, normal S1, S2 ABDOMEN: Normal bowel sounds, soft, non tender, non distended, A/P Proceed with the planned endoscopic procedure. Risks and benefits of the procedure explained to the patient. Consent signed. documented in this encounter Miscellaneous Notes * Miscellaneous - Provider, Scanning - 01/08/2014 9:30 PM EST * Miscellaneous - Provider, Scanning - 01/08/2014 9:27 PM EST * OR Attestation - Ilya Whitney MD - 01/08/2014 4:47 PM EST Attestation: Case Date: 01/08/2014 I performed this procedure without the involvement of a resident. ILYA WHITNEY MD 01/08/2014 * Miscellaneous - Provider, Scanning - 01/08/2014 4:09 PM EST documented in this encounter Plan of Treatment Upcoming Encounters Date Type Department Care Team (Late st Contact Info) Description 09/05/2024 9:00 AM EDT Office Visit Internal Medicine at [address] [id number] [facility] [place] [address] documented as of this encounter Procedures Procedure Name Priority Date/Time Associated Diagnosis Comments SURGICAL PATHOLOGY REPORT Routine 01/08/2014 4:53 PM EST SPECIMEN TO PATHOLOGY Routine 01/08/2014 4:53 PM EST EGD WITH BIOPSY (WRVU 2.39) 01/08/2014 4:34 PM EST reflux consult UPPER GI ENDOSCOPY Routine 01/08/2014 8: 11 AM EST documented in this encounter Results * Surgical Pathology Report (01/08/2014 4:53 PM EST) Final Diagnosis ? [facility] ? Provider: ?? ILYA WHITNEY ?Pt. Name: ?? CATRACHO TRACIE Palm ? Acc #: ?[id number] ?Pt. ? Col Date: ?? 01/08/2014 ? /Sex: ?1970,(43 years),Female ? Rec Date: ?? 01/08/2014 ? LOC: ?4T ? SURGICAL PATHOLOGY ? ---Pathologic Diagnosis--- ? A - Squamocolumnar junction @ 39 cm, biopsy: ? - Esophageal squamous and gastric cardia-type mucosa with nonspecific ? active cardio-esophagitis . ? - Scattered intraepithelial eosinophils are present, suggestive of reflux ? etiology. ? - No intestinal metaplasia is seen. ? CR-0 ? 01/09/14 ? JRP ? 01/09/14 Verified by: ? Ricco KWAN, Sid Colmenares ? Pathologist ? (Electronic Signature) ? The attending pathologist whose signature appears on this report has ? reviewed all diagnostic slides and has edited the gross and/or ? microscopic portion of the report in rendering the final pathologic ? diagnosis. ? ---Gross Description--- ? A - Labeled/Fixative: Squamocolumnar Junction at 39 cm, formalin. ? Quantity/Size: Four, 0.3 x 0.2 cm. ? Tissue Description: Soft, ratliff-pink tissue. ? Sections/Processin g: (T1) ??pps ? ---Clinical Information--- ? Specimen Submitted: ? A - Squamocol jnx @ 39cm ? Clinical History: ? GERD ? Clinical Diagnosis: ? GERD 01/09/2014 3:52 PM EST [facility] GI Biopsy 01/08/2014 4:53 PM EST 01/08/2014 4:53 PM EST Ilya Whitney MD PATHOLOGY/CYTOLOGY [facility] [place] [address] * Specimen to Pathology (surgical or derm) (01/08/2014 4:53 PM EST) AP Specimen 01/08/2014 4:53 PM EST 01/08/2014 4:53 PM EST Narrative [facility] - 01/08/2014 4:53 PM EST Specimen requisition ordered. ??Separate Pathology report to follow Ilya Whitney MD PATHOLOGY/CYTOLOGY [facility] * UPPER GI ENDOSCOPY (01/08/2014 8:11 AM EST) UPPER GI ENDOSCOPY [facility] Endoscopy ___ Patient Name: Tracie Layton ? Procedure Date: 01/08/2014 8:11 AM ? Date of : 1970 ? Age: 43 ? Order #: [id number] ? ___ Procedure: ? Upper GI endoscopy Indications: ? Heartburn, Nausea with vomiting Providers: ? Ilya Whitney MD, Abraham Gutierrez, ? RN, Marisol Yanez, Awning Finisher Referring : ?Cece Herrera MD Medicines: ? Sedation Required Anesthesia Staff ? Assistance Complications: ? No immediate complications. ___ Procedure: ? Pre-Anesthesia Assessment: ? - Prior [...] the physician, the nurse and the ? anesthesiologist in the pre-procedure ? area. Mental Status Examination: ? alert and oriented. Airway ? Examination: normal oropharyngeal ? airway and neck mobility. Respiratory ? Examination: clear to auscultation. ? CV Examination: normal. Prophylactic ? Antibiotics: The patient does not ? require prophylactic antibiotics. ? Prior Anticoagulants: The patient has ? taken no previous anticoagulant or ? antiplatelet agents. ASA Grade ? Assessment: III - A patient with ? severe systemic disease. After ? reviewing the risks and benefits, the ? patient was deemed in satisfactory ? condition to undergo the procedure. ? The anesthesia plan was to use ? monitored anesthesia care (MAC). ? Immediately prior to administration ? of medications, the patient was ? re-assessed for adequacy to receive ? sedatives. The heart rate, ? respiratory rate, oxygen saturations, ? blood pressure, adequacy of pulmonary ? ventilation, and response to care ? were monitored throughout the ? procedure. The physical status of the ? patient was re-assessed after the ? procedure. ? - Using IV propofol under the ? supervision of an anesthesiologist ? was determined to be medically ? necessary for this procedure based on ? ASA Grade III-V and patient's ? dependence on opiates, sedatives or ? hypnotics. ? The procedure, indications, benefits, ? risks [...] the ? procedure well. ? Findings: ? Esophagogastric landmarks were identified: the Z-line ? was found at 39 cm and the site of hiatal narrowing ? was found at 40 cm from the incisors. ? Mild Esophagitis was found. Biopsies were taken with ? a cold forceps for histology. ? The stomach was normal. ? The examined duodenum was normal. ? Impression: ?- Reflux esophagitis. Biopsied. ? - Normal stomach. ? - Normal examined duodenum. Recommendation: ?- Await pathology results. ? - Follow an antireflux regimen. ? - Continue present medications. ? Procedure Code(s): ?? --- Professional --- ? 60207, Upper gastrointestinal ? endoscopy including esophagus, ? stomach, and either the duodenum ? and/or jejunum as appropriate; with ? biopsy, single or multiple Diagnosis Code(s): ?? --- Professional --- ? 530.11, Reflux esophagitis ? --- Technical --- ? 530.11, Reflux esophagitis CPT (R) 2012 [employer]. All Rights Reserved. The codes documented in this report are preliminary and upon rangelands conservation laborer review may be revised to meet current compliance requirements. Ilya Whitney MD 01/08/2014 4:54 PM This report has been signed electronically. Number of Addenda: 0 Note Initiated On: 01/08/2014 8:11 AM PROVATION 01/08/2014 8:11 AM EST Cece Herrera MD GENERAL SURGICAL O RDERABLES PROVATION documented in this encounter Visit Diagnoses Not on filedocumented in this encounter Administered Medications Inactive Administered Medications - up to 3 most recent administrations Medication Order MAR Action Action Date Dose Rate Site lactated ringers infusion 100 mL/hr, Intravenous, CONTINUOUS, Starting on Mon01/08/14 at 1630, Until Mon01/08/14 at 1724, Endoscopy (Day of Procedure) New Bag 01/08/2014 4:32 PM EST mL New Bag 01/08/2014 4:20 PM EST 100 mL/hr 100 mL/hr documented in this encounter Active and Recently Administered Medications Times are shown in EST. Continuous Medication Order 01/06/2014 01/07/2014 01/08/2014 lactated ringers infusion (CANCELED) 100 mL/hr, Intravenous, CONTINUOUS, Starting on Mon01/08/14 at 1630, Until Mon01/08/14 at 1724, Endoscopy (Day of Procedure) 1620 (New Bag - Prov ider: Lexi Najera RN)1632 (New Bag - Provider: Quirino Mendoza) documented in this encounter Care Teams Pulp Maker Relationship Specialty Start Date End Date Cece Herrera MD [address] [place] [address] PCP - General 10/12/10 03/04/14 documented as of this encounter
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
--- OUTSIDE RECORDS SUMMARY | 2024-07-12 00:36 | XMS_ITS | Encounter Summary ---
Author Organization [facility] Address [facility] [place] [address] Care Team Providers Care Hide Or Skin Buffer Name Role Phone Erika Richardson APRN Primary Care Provider [phone]- [phone] Encounter Details Date Type Department Care Team (Late st Contact Info) Description 10/06/2014 Telephone [place] [address] Gracie Mark MD [facility] [place] [address] Social History Tobacco Use Types Packs/Day Years [...] encounter Miscellaneous Notes * Telephone Encounter - Shira Alonzo LPN - 10/06/2014 10:07 AM EST Lab results from 09/29/14 faxed to PCP @ [phone]. documented in this encounter Plan of Treatment Upcoming Encounters Date Type Department Care Team (Late st Contact Info) Description 09/05/2024 9:00 AM EDT Office Visit Internal Medicine at [address] [address] Gema Oliveira, [facility] [place] [address] documented as of this encounter Visit Diagnoses Not on filedocumented in this encounter Care Teams Hide Or Skin Buffer Relationship Specialty Start Date [place] [address] PCP - General 09/26/14 01/05/15 documented as of this encounter
--- OUTSIDE RECORDS SUMMARY | 2024-07-12 00:36 | XMS_ITS | Encounter Summary ---
[place] [address] Care Team Providers Care Skein Straightener Name Role Phone Erika Richardson APRN Primary Care Provider [phone]- [phone] Reason for Visit * Reason Onset Date Comments Medication Problem 10/15/2014 Encounter Details Date Type Department Care Team (Late Contact Info) Description 10/15/2014 Telephone Internal Medicine at [address] [address] Kay Esteban Medication Problem Social History Tobacco Use Types [...] Encounter - Leah Raines RN - 10/15/2014 9:20 AM EST Patient reports losing prescription for Mirapex for restless legs. States she told Kindra Miller that it made her nauseous, but she is now reporting that the sx of restlessness have worsened and she would like to resume it. TC to [facility] to clarify prescribed dose and frequency; spoke with Monet and Jeniffer. No record of Mirapex from that office. Kindra Miller will review her record and decide on dose and frequency. documented in this encounter Plan of Treatment Upcoming Encounters Date Type Department Care Team (Late st Contact Info) Description 09/05/2024 9:00 AM EDT Office Visit Internal Medicine at [address] [address] Gema Oliveira, [facility] [place] [address] documented as of this encounter Visit Diagnoses Not on filedocumented in this encounter Care Teams Skein Straightener Relationship Specialty Start Date [place] [address] PCP - General 09/26/14 01/05/15 documented as of this encounter
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
--- OUTSIDE RECORDS SUMMARY | 2024-07-12 00:36 | XMS_ITS | Encounter Summary ---
Author Organization [facility] [place] [address] Care Team Providers Care Supervisor Smoke Control Name Role Phone Erika Richardson APRN Primary Care Provider [phone]- [phone] Encounter Details Date Type Department Care Team (Late st Contact Info) Description 09/22/2014 [place] [address] Beronica Gan APRN [facility] [address] Social History Tobacco Use Types Packs/Day Years [...] encounter Miscellaneous Notes * Telephone Encounter - Beronica Gan APRN - 09/22/2014 3:37 PM EST Notified patient of MRI results No significant abnormalities. She stated understanding and did not have any questions. documented in this encounter Plan of Treatment Upcoming Encounters Date Type Department Care Team (Late st Contact Info) Description 09/05/2024 9:00 AM EDT Office Visit Internal Medicine at [address] [place] [address] Gema Oliveira, [facility] [address] documented as of this encounter Visit Diagnoses Not on filedocumented in this encounter Care Teams Supervisor Smoke Control Relationship Specialty Start Date End Date Erika Richardson APRN [facility] [place] [address] PCP - General 07/10/14 09/25/14 documented as of this encounter
--- OUTSIDE RECORDS SUMMARY | 2024-07-12 00:36 | XMS_ITS | Encounter Summary ---
Author Organization [facility] Address [facility] [place] [address] Care Team Providers Care Leather Repairer Name Role Phone Cece Herrera MD Primary Care Provider [phone]- [phone] Encounter Details Date Type Department Care Team (Late st Contact Info) Description 01/08/2014 4:30 PM EST - 01/08/2014 5:00 PM EST [place] [address] [facility] DR GASTROENTER[place] [address] EGD WITH BIOPSY (WRVU 2.39) Social History Tobacco Use Types Packs/Day Years [...] WHEN SHOULD YOU CALL FOR HELP? Call [phone] anytime you think that you need emergency [...] not get better as expected. Monday-Monday Clinic [phone] 8a-5p Same Day Endo [phone] 7a-8p Otherwise contact [phone] and ask to speak to the route aide montessori paraprofessional Follow-up care is a sandhu part of [...] EDT Office Visit Internal Medicine at [address] [address] [facility] [place] [address] documented as of this encounter Procedures Procedure [...] (01/08/2014 4:53 PM EST) Final Diagnosis ? [facility] ? Provider: ?? ILYA WHITNEY ?Pt. Name: ?? TRACIE HAYDEN ? Acc #: ?[id number] ?Pt. ? Col Date: ?? 01/08/2014 ? [...] EST Ilya Whitney MD PATHOLOGY/CYTOLOGY O YAMIL Performing Organization Address City/[facility]/ZIP Co de Phone Number [facility] [address] * Specimen to Pathology (surgical or derm) (01/08/2014 4:53 PM EST) AP Specimen 01/08/2014 4:53 PM EST 01/08/2014 4:53 PM EST Narrative [facility] - 01/08/2014 4:53 PM EST Specimen requisition ordered. ??Separate Pathology report to follow Ilya Whitney MD PATHOLOGY/CYTOLOGY O YAMIL Performing Organization Address City/[facility] Co de Phone Number [facility] * UPPER GI ENDOSCOPY (01/08/2014 8:11 AM EST) UPPER GI ENDOSCOPY [facility] ___ Patient Name: Tracie Hayden ? Procedure Date: 01/08/2014 8:11 AM ? Date of : 1970 ? Age: 43 ? Order #: [id number] ? ___ Procedure: ? Upper GI endoscopy Indications: ? Heartburn, Nausea with vomiting Providers: ? Ilya Whitney MD, Abraham Gutierrez, ? RN, Marisol Yanez, Dna Analyst Referring : ?Cece Herrera MD Medicines: ? [...] Procedure Code(s): ?? --- Professional --- ? 53733, Upper gastrointestinal ? endoscopy including esophagus, ? stomach, and either the duodenum ? and/or jejunum as appropriate; with ? biopsy, single or multiple Diagnosis Code(s): ?? --- Professional --- ? 530.11, Reflux esophagitis ? --- Technical --- ? 530.11, Reflux esophagitis CPT (R) 2012 [employer]. All Rights Reserved. The codes documented in this report are preliminary and upon aeronautical engineer review may be revised to meet current compliance requirements. Ilya Whitney MD 01/08/2014 4:54 PM This report has been signed electronically. Number of Addenda: 0 Note Initiated On: 01/08/2014 8:11 AM PROVATION 01/08/2014 8:11 AM EST Cece Herrera MD [facility] documented in this encounter Visit Diagnoses [...] Mendoza) documented in this encounter Care Teams Leather Repairer Relationship Specialty Start Date End Date Cece Herrera MD [address] [place] [id number] PCP - General 10/12/10 03/04/14 documented as of this encounter
--- OUTSIDE RECORDS SUMMARY | 2024-07-12 00:36 | XMS_ITS | Encounter Summary ---
Author Organization [facility] [place] [address] Care Team Providers Care Bank [employer] Savings Securities Trader Name Role Phone Cece Herrera MD Primary Care Provider [phone]- [phone] Encounter Details Date Type Department Care Team (Latest Contact Info) Description 11/15/2013 3:10 PM EST - 11/15/2013 11:59 PM [facility] Hospital Encounter [place] [id number] CLINIC, Russ Leroy MD [address] [place] [address] Discharge Disposition: Home Social History Tobacco Use Types Packs/Day Years Used Date Smoking Tobacco: Every Day Cigarettes 1 25 Smokeless Tobacco: Never Comments:avs information giv en Sex and Gender Information Value Date Recorded Sex Assigned at Not on file Gender Identity Not on file Sexual Orientation Not on file documented as of this encounter Medications at Time of Discharge Medication Sig Dispensed Refills Start Date End Date cyclobenzaprine (FLEXERIL) 10 mg tablet Take 10 mg by mouth 3 times daily as needed. 09/19/2014 documented as of this encounter Plan of Treatment Upcoming Encounters Date Type Department Care Team (Late st Contact Info) Description 09/05/2024 9:00 AM EDT Office Visit Internal Medicine at [address] [address] Gema Oliveira, [facility] [place] [address] documented as of this encounter Procedures Procedure Name Priority Date/Time Associated Diagnosis Comments US ABDOMEN COMPLETE Routine 11/15/2013 4 :07 PM EST documented in this encounter Results * US abdomen complete (11/15/2013 4:07 PM EST) Anatomical Region Laterality Modality Abdomen, Vascular Ultrasound 11/15/2013 4:07 PM EST Narrative 11/15/2013 4:14 PM EST ?Abdominal ? (Signed Final 11/15/2013 04:13 pm) Patient Info ID: ? [id number] ? : ??[birth year] (42 yrs) Name: ? TRACIE HAYDEN ?Visit Date: 11/15/2013 04:04 pm Performed By Performed By: ?Oksana Serna RDMS Attending: ? Samantha KWAN, Rickie Coe Referred By: ? RUSS LOPEZ MD Service(s) Provided [facility] - Abdominal Complete Survey - [id number] ? [id number] Indications NAUSA AND VOMIT GASTRITIS R/O GALL BLADDER DZ ----- Liver ----- Right Lobe Length: ?? 17.4 ?? cm Echogenicity/Echotexture: ?? Normal Gallbladder Cholelithiasis: ?No stones visualized Wall Thickness: ?2. mm Focal Tenderness: ?Negative sonographic Conn's sign Biliary Tract Intrahepatic Ducts: ?? Normal Extrahepatic Ducts: ?? Normal Common Duct Size: ? 6 ? mm Comment: ?The CBD measures 5mm but widens slightly to ? 6mm as it exits the maribeth hepatis. -------- Pancreas -------- Head: ? Normal Tail: ? Poorly visualized due to overlying bowel Body: ? Normal ------ Spleen ------ Size (cm) ?L: ??10.8 ?AP: ??4.3 ? TV: ??4 Vol (ml): ?97.3 Comment: ?Normal appearance Right Kidney Size (cm) ?L: ??11 Cortical Thickness: ?Normal Cortical Echogenicity: ?? Normal Hydronephrosis: ?No sonographic evidence Left Kidney Size (cm) ?L: ??10.9 Cortical Thickness: ?Normal Cortical Echogenicity: ?? Normal Hydronephrosis: ?No sonographic evidence Urinary Bladder Pre-void (cm) ? L: ??2.7 ? AP: ??2.4 ? TV: ??7 Vol (ml): ?23.8 ----- Aorta ----- Measurements (cm): Proximal ? AP: ?? 1.9 Mid ?AP: ?? 2 Distal ? AP: ?? 1.7 Comment: ?Normal in caliber where visualized --- IVC --- Normal in caliber where visualized Impression Ultrasound - Abdomen Complete - Summary Normal abdominal ultrasound exam. I ??viewed the images and agree with the above interpretation. Thank you for allowing us to participate in the care of TRACIE HAYDEN. Please do not hesitate to call if you have any questions. ? Rickie Singh MD Electronically Signed Final Report ?? 11/15/2013 04:13 pm Procedure Note Rickie Singh MD - 11/15/2013 Abdominal (Signed Final 11/15/2013 04:13 pm) Patient Info ID: [id number] : [birth year] (42 yrs) Name: TRACIE HAYDEN Visit Date: 11/15/2013 04:04 pm Performed By Performed By: Oksana Serna RDMS Attending: Rickie Singh MD Referred By: RUSS LOPEZ MD Service(s) Provided [facility] - Abdominal Complete Survey - [id number] Indications NAUSA AND VOMIT GASTRITIS R/O GALL BLADDER DZ ----- Liver ----- Right Lobe Length: 17.4 cm Echogenicity/Echotexture: Normal Gallbladder Cholelithiasis: No stones visualized Wall Thickness: 2. mm Focal Tenderness: Negative sonographic Conn's sign Biliary Tract Intrahepatic Ducts: Normal Extrahepatic Ducts: Normal Common Duct Size: 6 mm Comment: The CBD measures 5mm but widens slightly to 6mm as it exits the maribeth hepatis. -------- Pancreas -------- Head: Normal Tail: Poorly visualized due to overlying bowel Body: Normal ------ Spleen ------ Size (cm) L: 10.8 AP: 4.3 TV: 4 Vol (ml): 97.3 Comment: Normal appearance Right Kidney Size (cm) L: 11 Cortical Thickness: Normal Cortical Echogenicity: Normal Hydronephrosis: No sonographic evidence Left Kidney Size (cm) L: 10.9 Cortical Thickness: Normal Cortical Echogenicity: Normal Hydronephrosis: No sonographic evidence Urinary Bladder Pre-void (cm) L: 2.7 AP: 2.4 TV: 7 Vol (ml): 23.8 ----- Aorta ----- Measurements (cm): Proximal AP: 1.9 Mid AP: 2 Distal AP: 1.7 Comment: Normal in caliber where visualized --- IVC --- Normal in caliber where visualized Impression Ultrasound - Abdomen Complete - Summary Normal abdominal ultrasound exam. I viewed the images and agree with the above interpretation. Thank you for allowing us to participate in the care of TRACIE HAYDEN. Please do not hesitate to call if you have any questions. Rickie Singh MD Electronically Signed Final Report 11/15/2013 04:13 pm Gracie Lebron Ernesto SURVEY [facility] IMG US GEN ORDERABL ES documented in this encounter Visit Diagnoses Not on filedocumented in this encounter Care Teams Bank And Savings Securities Trader Relationship Specialty Start Date End Date Cece Herrera MD [address] [place] [id number] PCP - General 10/12/10 03/04/14 documented as of this encounter
--- OUTSIDE RECORDS SUMMARY | 2024-07-12 00:36 | XMS_ITS | Encounter Summary ---
Author Organization [facility] [place] [address] Care Team Providers Care Shuffle Board Operator Name Role Phone Erika Richardson APRN Primary Care Provider +1- [phone] Reason for Visit * Reason Onset Date Comments Results 11/12/2014 Encounter Details Date Type Department Care Team (Late Contact Info) Description 11/12/2014 Telephone Internal Medicine at [address] [address] Tatyana Diaz Results Social History Tobacco Use Types Packs/Day Years [...] Telephone Encounter - Miriam Miller PA - 11/17/2014 10:03 AM EST Spoke to pt. Received MRI pelvis report from [facility]. This was essentially normal and showed only a small amount of deep pelvic free fluid which is likely physiologic in nature. No left ovarian massdetected at time of imaging. They did state that direct comparison with US from [facility] would be helpful. Discussed this with pt - she will call [facility] and request that US images be sent to [facility]. Will refer to WAXER OPERATOR at this time given ongoing pelvic pain/cramping. * Telephone Encounter - Tatyana Diaz - 11/12/2014 12:54 PM EST Pt called requesting result of recent MRI performed on 11/03 Please call Pt documented in this encounter Plan of Treatment Upcoming Encounters Date Type Department Care Team (Late st Contact Info) Description 09/05/2024 9:00 AM EDT Office Visit Internal Medicine at [address] [address] Gema Oliveira, [facility] [place] [address] documented as of this encounter Visit Diagnoses Not on filedocumented in this encounter Care Teams Shuffle Board Operator Relationship Specialty Start Date End Date [place] [address] PCP - General 09/26/14 01/05/15 documented as of this encounter
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
--- OUTSIDE RECORDS SUMMARY | 2024-07-12 00:36 | XMS_ITS | Encounter Summary ---
Author Organization [facility] Address [facility] [place] [address] Care Team Providers Care Milk Tester Name Role Phone Cece Herrera MD Primary Care Provider +1- [phone] Encounter Details Date Type Department Care Team (Late st Contact Info) Description 01/08/2014 4:32 PM EST Anesthesia [place] [address] Philipp Winn MD [facility] [place] [address] Quirino Mendoza CRNA Anesthesia Record Procedure Summary Procedure Name Responsible Anesthesiologist Anesthesia Start Time Anesthesia Stop Time EGD WITH BIOPSY (WRVU 2.39) (Trunk) Philipp Winn MD 01/08/14 1632 01/08/14 1649 Events Date Time Event Comment 01/08/2014 1613 1632 Start 1635 AN Verify 1635 An Start Data 1637 An Induction 1638 Anesthesia Ready 1648 an stop data 1649 Stop Meds Name Total propofol 370 mg lactated ringers infusion 0 mL * Agents Name O2 Auxiliary Flowmeter 1 * Blood No blood administrations on file. Lines, Drains, and Airways Type Details Placement Removal (RETIRED) Peripheral IV Line - Single Lumen 01/08/14; 1620; 01/08/14; 1724 01/08/14 1620 by Lexi Najera RN 01/08/14 1724 by Rafter, Archana B, RN documented in this encounter Social History Tobacco [...] OR Notes * Anesthesia Postprocedure Evaluation - Philipp Winn MD - 01/08/2014 5:47 PM EST Patient: Tracie Layton Procedure(s) Performed: Procedure(s): EGD WITH BIOPSY Actual Anesthetic: MAC Patient location: PACU Post-op pain: Adequate analgesia Post-op nausea: no nausea or vomiting Last Vitals: Filed Vitals: 01/08/14 1652 BP: 119/79 Pulse: 105 Resp: Post-op cardiovascular and respiratory status: is stable Level of consciousness: awake, alert and oriented Complications: no apparent complications and tolerated the procedure well Fluid Status: normal * Anesthesia Preprocedure Evaluation - Philipp Winn MD - 01/08/2014 4:13 PM EST Pre-Anesthesia Evaluation for: Tracie Layton a 43 y.o. female. Procedure(s): EGD, UPPER GI ENDOSCOPY There are no active problems to display for this patient. No past medical history on file. No past surgical history on file. History Substance Use Topics ??? Smoking status: Current Every Day Smoker -- 1.0 packs/day for 25 years Types: Cigarettes ??? Smokeless tobacco: Never Used Comment: avs information given ??? Alcohol Use: Not on file History Drug Use Not on file Allergies Allergen Reactions ??? Bactrim (Sulfamethoxazole-Trimethoprim) Anaphylaxis ??? Keflex (Cephalexin) Other (See Comments) Racing heart ??? Meloxicam Nausea Only Medications: MAR and/or home medications have been reviewed. Physical Exam: There were no vitals filed for this visit. There is no height or weight on file to calculate BMI. Anesthesia Physical Exam Anesthesia Plan: ASA 2 MAC, with a(n) intravenous induction Region - Other Informed Consent: Anesthetic plan and risks discussed with patient. Plan discussed with OVERHEAD DOOR TECHNICIAN. Misc. Assessment: documented in this encounter Plan of Treatment Upcoming Encounters Date Type Department Care Team (Late st Contact Info) Description 09/05/2024 9:00 AM EDT Office Visit Internal Medicine at [address] [address] Gema Oliveira, [facility] [address] documented as of this encounter Visit Diagnoses [...] 4:20 PM EST 100 mL/hr 100 mL/hr propofol (DIPRIVAN) 10 mg/mL bolus injection (Anesthesia) PRN, Starting on Mon01/08/14 at 1637, Until Mon01/08/14 at 1649, Anesthesia Intra-op Given 01/08/2014 4:44 PM EST 70 mg Given 01/08/2014 4:42 PM EST 50 mg Given 01/08/2014 4:41 PM EST 50 mg documented in this encounter Care Teams Milk Tester Relationship Specialty Start Date End Date Cece Herrera MD [address] [place] [id number] PCP - General 10/12/10 03/04/14 documented as of this encounter
--- OUTSIDE RECORDS SUMMARY | 2024-07-12 00:36 | XMS_ITS | Encounter Summary ---
Author Organization [facility] Address [facility] [place] [address] Care Team Providers Care Concert Pianist Name Role Phone Erika Richardson APRN Primary Care Provider +1- [phone] Reason for Visit * Reason Onset Date Comments Other 08/01/2014 Encounter Details Date Type Department Care Team (Late st Contact Info) Description 08/01/2014 [place] [address] Chad Ponce, [facility] [place] [address] Other Social History Tobacco Use Types Packs/Day [...] Miscellaneous Notes * Telephone Encounter - Leah Dillard RN - 08/04/2014 9:58 AM EDT Pt called late Monday to say that she would like to try the med. Will send rx to her pharmacy * Telephone Encounter - David Del Rio RN - 08/01/2014 2:53 PM EDT She is already on heavy duty narcotics - and I tried the nerve blocks, so she is difficult to manage. I talked about adding a preventative med. Does she want to start that? We can try topamax - please advise of the 2% risk of kidney stone, and small risk of cleft palate if she were to become ... week 1: 25 mg qhs, week 2: 50 mg qhs, and then she will be in to see the WATKINS clinic.... CHAD PONCE DO Called and left message for Tracie to return call. David * Telephone Encounter - David Del Rio RN - 08/01/2014 9:25 AM EDT Tracie Sweet called this am to report that the WATKINS she has had since 05/31 is getting progressively worse. She said she deals with this on a daily basis, when she saw you it was about a 3/10 but as of today it's an 8/10. She said that you had discussed trying some new medications that she declined at the time but now would like to try anything. She added that she has spoken to her PCP who referred her back to neurology. Please advise Thanks David RN * Telephone Encounter - Joya Shen - 08/01/2014 8:58 AM EDT Patient states she has had a headache since May 31 and can't seem to get rid of it. Patient states she is to be seen by the headache clinic on 08/13 but would like to speak with a nurse about thisbefore the appointment. Please call patient back. documented in this encounter Plan of Treatment Upcoming Encounters Date Type Department Care Team (Late st Contact Info) Description 09/05/2024 9:00 AM EDT Office [place] [address] Gema Oliveira DO [facility] [address] documented as of this encounter Visit Diagnoses Not on filedocumented in this encounter Care Teams Concert Pianist Relationship Specialty Start Date End [place] [address] PCP - General 07/10/14 09/25/14 documented as of this encounter
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
--- OUTSIDE RECORDS SUMMARY | 2024-07-12 00:36 | XMS_ITS | Encounter Summary ---
Author Organization [facility] Address [facility] [place] [address] Care Team Providers Care Real Estate Lawyer Name Role Phone Erika Richardson APRN Primary Care Provider +1- [phone] Reason for Visit * Reason Onset Date Comments Other 07/24/2014 Encounter Details Date Type Department Care Team (Late st Contact Info) Description 07/24/2014 [place] [address] Chad Ponce, [facility] [place] [address] Other Social History Tobacco Use Types Packs/Day [...] Telephone Encounter - Leah Dillard RN - 07/28/2014 12:08 PM EDT LM for pt that JFB can see her sooner but will still need to see Dr Mark/Mitch as scheduled visit. * Telephone Encounter - David Del Rio RN - 07/25/2014 4:56 PM EDT Chad Pnoce DO I spoke to Beronica - She will see the patient at her earliest opening to suggest a WATKINS treatment... CHAD PONCE DO Called and left message for patient to return call David * Telephone Encounter - Leah Dillard RN - 07/24/2014 3:04 PM EDT Return call to the patient. She states that the ONB did work for a week. But sx returned on Jul 21.(visit was 07/14) Headache is the same as usual, in the back of her head constantly. No position change makes anything worse. Sllight photophobia, can touch chin to chest , afebrile. Pt has not taken anything other than her usual med's today. Narcotics do NOT help reduce the pain in any way. She is an insomniac, usual sleep is 11/2 to 2 hrs per night. Back pain is controlled by narcotics. Appt with headache clinic scheduled for 09/29. I will send on to Dr Ponce to advise in the interim. * Telephone Encounter - Joya Shen - 07/24/2014 1:55 PM EDT Patient states she was referred to the headache clinic by Dr. Ponce but can't get in until September. Patient has had a headache for the past 3 days and needs to know what to do. Patient is asking for a call back to discuss further. documented in this encounter Plan of Treatment Upcoming Encounters Date Type Department Care Team (Late st Contact Info) Description 09/05/2024 9:00 AM EDT Office Visit Internal Medicine at [address] [address] Gema Oliveira DO [facility] GENERAL [place] [address] documented as of this encounter Visit Diagnoses Not on filedocumented in this encounter Care Teams Real Estate Lawyer Relationship Specialty Start Date End [place] [address] PCP - General 07/10/14 09/25/14 documented as of this encounter
--- OUTSIDE RECORDS SUMMARY | 2024-07-12 00:36 | XMS_ITS | Encounter Summary ---
Author Organization [facility] Address [facility] [place] [address] Care Team Providers Care Roving Or Yarn Color Checker Name Role Phone Gema Oliveira DO Primary Care Provider +1- [phone] Encounter Details Date Type Department Care Team (Late st Contact Info) Description 10/01/2014 Notes [place] [id number] Mere Brewer RN Social History Tobacco Use Types Packs/Day [...] EDT Office Visit Internal Medicine at [address] [address] Gema Oliveira DO [facility] [place] [address] documented as of this encounter Visit Diagnoses Not on filedocumented in this encounter Additional Health Concerns Infection Onset Date Last Indicated Resolved Time Rule Out Respiratory 12/15/2023 12/15/2023 024 8:51 PM EST Rule Out COVID-19 12/15/2023 12/15/2023 12/15/2023 4:42 PM EST RSV 12/15/2023 12/15/2023 12/25/2023 8:09 PM EST documented as of this encounter Care Teams Roving Or Yarn Color Checker Relationship Specialty Start Date End Date Gema Oliveira DO [facility] [place] [address] PCP - General General Internal Medicine 05/17/23 documented as of this encounter
--- OUTSIDE RECORDS SUMMARY | 2024-07-12 00:36 | XMS_ITS | Encounter Summary ---
Author Organization [facility] Address [facility] [place] [address] Care Team Providers Care Tag Meter Operator Name Role Phone Erika Richardson APRN Primary Care Provider +1- [phone] Encounter Details Date Type Department Care Team (Latest Contact Info) Description 09/19/2014 8:30 AM EDT - 09/19/2014 11:59 PM EDT Hospital [place] [address] CL[address], DR VASQUEZ Cervicogenic headache; Posttraumatic headache Social History Tobacco Use Types Packs/Day [...] Sign Reading Time Taken Comments Blood Pressure - - Pulse - - Temperature - - Respiratory Rate - - Oxygen Saturation - - Inhaled Oxygen Concentration - - Weight 112.9 kg (249 lb) 09/19/2014 9:05 AM EDT Height - - Body Mass Index 35.73 08/13/2014 12:58 PM EDT documented in this encounter Medications at Time of Discharge Medication Sig Dispensed Refills Start Date End Date gabapentin (NEURONTIN) 600 mg TabletIndications:Postt raumatic headache,Cervicalgia Take 1 tablet by mouth 3 times daily. 90 tablet 1 09/19/2014 02/18/2015 baclofen (LIORESAL) 10 mg TabletIndications:Postt raumatic headache,Cervicalgia Take 10-20 mg nightly for neck and sleep and 10 mg twice daily as needed. 90 tablet 1 09/19/2014 03/09/2015 albuterol (PROVENTIL HFA;VENTOLIN HFA) 90 mcg/actuation inhaler Inhale 2 puffs into the lungs every 4 hours as needed. Use with spacer 09/30/2014 fluticasone-salmeterol (ADVAIR) 100-50 mcg/dose diskus inhaler Inhale 1 puff into the lungs every 12 hours. 09/30/2014 dextroamphetamine-amphe tamine (ADDERALL) 20 mg tablet Take 20 mg by mouth daily. 09/30/2014 documented as of this encounter Progress Notes * Harleen Iverson RN - 09/16/2014 1:32 PM EDT VIR MRI PRE-SEDATION ASSESSMENT NOTE NAME: Tracie Layton AGE: 43 y.o. : 1970 Female [phone] (home) Telephone Information: PCP CONVEYOR WORKER SARITHA BARNEY Caroline C, APRN Allergies Allergen Reactions ??? Bactrim (Sulfamethoxazole-Trimethoprim) Anaphylaxis ??? Keflex (Cephalexin) Other (See Comments) Racing heart ??? Meloxicam Nausea Only Date/Time of call: September 16, 2014/1:32 PM/ PREVIOUS MRI SCAN? yes HEIGHT: 70 WEIGHT:249# SCHEDULED SCAN:MRI Brain [facility] SUBJECTIVE: ASSESSMENT: PLAN: PRIOR SCAN DATE/S SEDATION TYPE SUCCESSFUL 06/17/05 MRI unknown 09/19/14 MRI None, pt came late barbara very well PT WILL ARRIVE 1 HR. BEFORE SCHEDULED SCAN AND HAVE A SPORTS LAWYER AVAILABLE. PT STATED TO SUPERVISOR ELEMENTARY EDUCATION THAT THE SEDATION WAS EFFECTIVE FOR SCAN: Y N COMMENTS: This patient has been informed that they require a driver wheelchair to drive them home after this procedure. In the absence of a driver wheelchair, IR will not be able to perform this procedure and will need to reschedule. Pt verbalized understanding of these instructions during the pre-procedure education via phone. documented in this encounter Miscellaneous Notes * Miscellaneous - Provider, Scanning - 09/23/2014 12:00 AM EST documented in this encounter Plan of Treatment Upcoming Encounters Date Type Department Care Team (Late st Contact Info) Description 09/05/2024 9:00 AM EDT Office Visit Internal Medicine at [address] [id number] Gema Oliveira, [facility] GENERAL INTER[place] [address] documented as of this encounter Procedures Procedure Name Priority Date/Time Associated Diagnosis Comments MRI BRAIN WWO CONTRAST (GENERIC) Routine 09/19/2014 9:35 AM EDT Cervicogenic headache Posttraumatic headache documented in this encounter Results * MRI brain with/WO contrast (09/19/2014 9:35 [...] Impression No significant abnormalities. Joseph Meyer MD [facility] MRI ORDERABLES documented in this encounter Visit Diagnoses Diagnosis Cervicogenic headache Headache Posttraumatic headache Post-traumatic headache, unspecified documented in this encounter Administered Medications Inactive Administered Medications - up to 3 most recent administrations Medication Order MAR Action Action Date Dose Rate Site gadopentetate dimeglumine (MAGNEVIST) injection 20 mL 20 mL, Intravenous, ONCE PRN, Per Protocol, Starting on Mon09/19/14 at 0905, 1 dose, Until Mon09/19/14 at 0914 Given 09/19/2014 9:14 AM EDT 20 mLs documented in this encounter Care Teams Tag Meter Operator Relationship Specialty Start Date End Date Erika Richardson, TEMPORARY ADMINISTR[place] [address] PCP - General 07/10/14 09/25/14 documented as of this encounter
--- OUTSIDE RECORDS SUMMARY | 2024-07-12 00:36 | XMS_ITS | Encounter Summary ---
Author Organization [facility] Address [facility] [place] [address] Care Team Providers Care Fuel Attendant Name Role Phone Erika Richardson APRN Primary Care Provider +1- [phone] Encounter Details Date Type Department Care Team (Late st Contact Info) Description 10/29/2014 Orders Only Internal Medicine at [address] [address] Miriam Miller PA [facility] [place] [address] H/O suicide attempt; BV (bacterial vaginosis) Social History Tobacco Use Types Packs/Day Years [...] AM EDT Office Visit Internal Medicine at [address] [address] Gema Oliveira DO [facility] [address] [facility] [place] [address] documented as of this encounter Visit Diagnoses Diagnosis H/O suicide attempt Other specified personal history presenting hazards to health BV (bacterial vaginosis) Vaginitis and vulvovaginitis, unspecified documented in this encounter Care Teams Fuel Attendant Relationship Specialty Start Date End Date Erika Richardson APRN [place] [address] PCP - General 09/26/14 01/05/15 documented as of this encounter
--- OUTSIDE RECORDS SUMMARY | 2024-07-12 00:36 | XMS_ITS | Encounter Summary ---
Author Organization [facility] Address [facility] [place] [address] Care Team Providers Care Woven Label Designer Name Role Phone Erika Richardson APRN Primary Care Provider +1- [phone] Encounter Details Date Type Department Care Team (Latest Contact Info) Description 08/13/2014 2:46 PM EDT - 08/13/2014 11:59 PM EDT Hospital Encounter Non-[place] [address] CLIN[address], DR VASQUEZ Discharge Disposition: Home Social History Tobacco Use [...] Date End Date gabapentin (NEURONTIN) 600 mg Tablet Take 600 mg by mouth nightly. 09/19/2014 gabapentin (NEURONTIN) 300 mg CapsuleIndications:Cer vicogenic headache,Posttraumatic headache Take 300 mg in the morning, 300 mg in the afternoon along with the 600 mg nightly. 60 capsule 12 08/13/2014 09/19/2014 oxyCODONE (ROXICODONE) 5 mg immediate release tablet Take 10 mg by mouth every 4 hours as needed. 09/19/2014 albuterol (PROVENTIL HFA;VENTOLIN HFA) 90 mcg/actuation inhaler Inhale 2 puffs into the lungs every 4 hours as needed. Use with spacer 09/30/2014 fluticasone-salmeterol (ADVAIR) 100-50 mcg/dose diskus inhaler Inhale 1 puff into the lungs every 12 hours. 09/30/2014 dextroamphetamine-amph etamine (ADDERALL) 20 mg tablet Take 20 mg by mouth daily. 09/30/2014 methadone (DOLOPHINE) 5 mg tablet Take by [...] EDT Office Visit Internal Medicine at [address] [address] Gema Oliveira, [facility] [place] [address] documented as of this encounter Visit Diagnoses Not on filedocumented in this encounter Care Teams Woven Label Designer Relationship Specialty Start Date [place] [address] PCP - General 07/10/14 09/25/14 documented as of this encounter
--- OUTSIDE RECORDS SUMMARY | 2024-07-12 00:36 | XMS_ITS | Encounter Summary ---
Author Organization [facility] [place] [address] Care Team Providers Care Control Systems Developer Name Role Phone Cece Herrera MD Primary Care Provider +1- [phone] Encounter Details Date Type Department Care Team (Late st Contact Info) Description 06/11/2013 Orders Only [place] [address] Ghazal Escobar, [facility] [place] [address] Social History Tobacco Use Types Packs/Day Years Used Date Smoking Tobacco: Never Assessed Sex and Gender Information Value Date Recorded Sex Assigned at Not on file Gender Identity Not on file Sexual Orientation Not on file documented as of this encounter Plan of Treatment Upcoming Encounters Date Type Department Care Team (Late st Contact Info) Description 09/05/2024 9:00 AM EDT Office Visit Internal Medicine at [address] [address] Gema Oliveira, [facility] GENERAL [place] [address] documented as of this encounter Procedures Procedure Name Priority Date/Time Associated Diagnosis Comments FILM LIBRARY STORAGE ONLY MR SPINE Routine 06/11/2013 7:06 PM EDT documented in this encounter Results * Film Library- Storage only MR Spine (06/11/2013 7:06 PM EDT) Anatomical Region Laterality Modality Other 06/11/2013 7:06 PM EDT Narrative 01/07/2014 6:31 PM EST This is a non-reportable exam. Procedure Note Arpan Patel - 01/07/2014 This is a non-reportable exam. Ghazal sEcobar PHOTOVOLTAIC POWER SYSTEMS ENGINEER IMG FILM LIBRARY OR DERABLES documented in this encounter Visit Diagnoses Not on filedocumented in this encounter Care Teams Control Systems Developer Relationship Specialty Start Date End Date Cece Herrera MD [address] [place] [address] PCP - General 10/12/10 03/04/14 documented as of this encounter
--- OUTSIDE RECORDS SUMMARY | 2024-07-12 00:36 | XMS_ITS | Encounter Summary ---
Author Organization [facility] [place] [address] Care Team Providers Care Hand Bulldozer Name Role Phone Erika Richardson APRN Primary Care Provider [phone]- [phone] Reason for Referral * Consultation (Routine) - Closed Specialty Diagnoses / Procedures Referred By María Elena t Referred To Contact Obstetrics and Gynecology Diagnoses Chronic pelvic pain in female Miriam Miller PA [facility] [address] [place] [address] [facility] [address] [address] Referral ID Status Reason Start Date Expiration Date V isits Requested Visits Authorized [id number] Closed Consult, Test & Treat 11/17/2014 11/17/2015 1 1 Encounter Details Date Type Department Care Team (Late st Contact Info) Description 11/17/2014 Orders Only Internal Medicine at [facility] [address] [place] [address] Miriam Miller PA [facility] [address] [place] [address] Chronic pelvic pain in female Social History Tobacco Use Types [...] EDT Office Visit Internal Medicine at [address] [address] Gema Oliveira, [facility] [place] [address] Scheduled Referrals Name Type Priority Associated Diagnoses Orde r Schedule Referral to Ob-Leader Writer Outpatient Referral Routine Chronic pelvic pain in female Ordered: 11/17/2014 documented as of this encounter Visit Diagnoses Diagnosis Chronic pelvic pain in female Unspecified symptom associated with female genital organs documented in this encounter Care Teams Hand Bulldozer Relationship Specialty Start Date [place] [address] PCP - General 09/26/14 01/05/15 documented as of this encounter
--- OUTSIDE RECORDS SUMMARY | 2024-07-12 00:36 | XMS_ITS | Encounter Summary ---
Author Organization [facility] [place] [address] Care Team Providers Care Pot Holder Binder Name Role Phone Cece Herrera MD Primary Care Provider [phone]- [phone] Reason for Visit * Reason Comments Low Back Pain Bilateral Hip Pain left hip greater maylin n right hip pain Encounter Details Date Type Department Care Team (Late st Contact Info) Description 07/24/2013 11:20 AM EDT [place] [address] Ghazal Escobar, [facility] [place] [address] Chronic LBP (Primary Dx) Discharge Disposition: Home Social History Tobacco Use Types Packs/Day Years Used Date Smoking Tobacco: Every Day Cigarettes 1 25 Smokeless Tobacco: Never Tobacco Cessation:Ready to Q uit: No; Counseling Given: Yes Comments:avs information given Sex and Gender Information Value Date Recorded Sex Assigned at Not on file Gender Identity Not on file Sexual Orientation Not on file documented as of this encounter Patient Instructions * Patient Instructions* Marimar Nobles, CANDE - 07/24/2013 11:15 AM EDT Stopping Smoking: After Your Visit Your Care Instructions Cigarette smokers crave the nicotine in cigarettes. Giving it up is much harder than simply changing a habit. Your body has to stop craving the nicotine. It is hard to quit, but you can do it. There are many tools that people use to quit smoking. You may find that combining tools works best for you. There are several steps to quitting. First you get ready to quit. Then you get support to help you.After that, you learn new skills and behaviors to become a nonsmoker. For many people, a necessary step is getting and using medicine. Your doctor will help you set up the plan that best meets your needs. You may want to attend a smoking cessation program to help you quit smoking. When you choose a program, look for one that has proven success. Ask your doctor for ideas. You will greatly increase your chances of success if you take medicine as well as get counseling or join a cessation program. Some of the changes you feel when you first quit tobacco are uncomfortable. Your body will miss thenicotine at first, and you may feel short-tempered and grumpy. You may have trouble sleeping or concentrating. Medicine can help you deal with these symptoms. You may struggle with changing your smoking habits and rituals. The last step is the tricky one: Be prepared for the smoking urge to continue for a time. This is a lot to deal with, but keep at it. You will feel better. Follow-up care is a sandhu part of your treatment and safety. Be sure to make and go to all appointments, and call your doctor if you are having problems. It???s also a good idea to know your test results and keep a list of the medicines you take. How can you care for yourself at home? Ask your family, friends, and coworkers for support. You have a better chance of quitting if you have help and support. Join a support group, such as Nicotine Anonymous, for people who are trying to quit smoking. Consider signing up for a smoking cessation program, such as the [employer]'s [place] from Smoking program. Set a quit date. Pick your date carefully so that it is not right in the middle of a big deadline or stressful time. Once you quit, do not even take a puff. Get rid of all ashtrays and lighters afteryour last cigarette. Clean your house and your clothes so that they do not smell of smoke. Learn how to be a nonsmoker. Think about ways you can avoid those things that make you reach for a cigarette. Avoid situations that put you at greatest risk for smoking. For some people, it is hard to have a drink with friends without smoking. For others, they might skip a coffee break with coworkers who smoke. Change your daily routine. Take a different route to work or eat a meal in a different place. Cut down on stress. Calm yourself or release tension by doing an activity you enjoy, such as reading a book, taking a hot bath, or gardening. Talk to your doctor or pharmacist about nicotine replacement therapy, which replaces the nicotine in your body. You still get nicotine but you do not use tobacco. Nicotine replacement products help you slowly reduce the amount of nicotine you need. These products come in several forms, many of themavailable [id number]: Nicotine patches Nicotine gum and lozenges Nicotine inhaler Ask your doctor about bupropion (Wellbutrin) or varenicline (Chantix), which are prescription medicines. They do not contain nicotine. They help you by reducing withdrawal symptoms, such as stress and anxiety. Some people find hypnosis, acupuncture, and massage helpful for ending the smoking habit. Eat a healthy diet and get regular exercise. Having healthy habits will help your body move past its craving for nicotine. Be prepared to keep trying. Most people are not successful the first few times they try to quit. Donot get mad at yourself if you smoke again. Make a list of things you learned and think about when you want to try again, such as next week, next month, or next year. Visit our health information library at http://www.[employer] hospital[facility].[employer]/healthinfo. You can alsoview health information on [employer], your personal patient account. Log in or sign up today. Enter Y522 in the search box to learn more about Stopping Smoking: After Your Visit. ?? [id number] [employer]. Care instructions adapted under license by [facility]. This care instruction is for use with your licensed healthcare professional. If you have questions about a medical condition or this instruction, always ask your healthcare professional. [employer] disclaims any warranty or liability for your use of this information. Content Version: [id number]; Last Revised: June 08, 2011 documented in this encounter Progress Notes * Ghazal Escobar, STUNT DOUBLE - 07/24/2013 11:24 AM EDT Tracie Layton is a 42 y.o. female is seen here to discuss her Sx. Symptoms today include low back pain that is present daily. This radiates into both buttocks, the lateral and posterior left thigh, minimally on the right. She denies any numbness or tingling, but does have weakness on the left. Back pain worse than leg pain, rated at 6/10 today. She's had a second opinion and has a copy of an e-mail from [place] where she sent her images for an opoinion. They suggested that she may benefit from a discectomy as well as the facet injection. Observation: She is pleasant has good eye contact and is teary during our visit. I did not repeat her exam. Plan: She has a declined to do physical therapy given the amount of pain that she's in. She's not enthusiastic about having surgery. She's not interested in any injections. I suggested that she mightbenefit from steroid injection which she will consider. I've also explained the facet injections assuggested in the e-mail. She'll a consider her options. I also given a card for the functional shinto program which I think may be of some benefit to her. documented in this encounter Plan of Treatment Upcoming Encounters Date Type Department Care Team (Late st Contact Info) Description 09/05/2024 9:00 AM EDT Office Visit Internal Medicine at [address] [id number] Gema Oliveira, [facility] [address] documented as of this encounter Visit Diagnoses Diagnosis Chronic LBP- Primary Lumbago documented in this encounter Care Teams Pot Holder Binder Relationship Specialty Start Date End Date Cece Herrera MD [address] [place] [id number] PCP - General 10/12/10 03/04/14 documented as of this encounter
--- OUTSIDE RECORDS SUMMARY | 2024-07-12 00:36 | XMS_ITS | Encounter Summary ---
Author Organization [facility] [place] [address] Care Team Providers Care Supervisor Agency Appointments Name Role Phone Deuce Richardson APRN Primary Care Provider +1- [phone] Reason for Referral * Psychiatric (Routine) - Closed Specialty Diagnoses / Procedures Referred By María Elena t Referred To Contact Psychiatry Diagnoses Persistent mood disorder Miriam Miller PA [facility] [place] [address] [facility] [place] [address] Referral ID Status Reason Start Date Expiration Date V isits Requested Visits Authorized [id number] Closed Consult, Test & Treat 09/30/2014 03/29/2015 1 1 Reason for Visit * Reason Comments Establish Care Encounter Details Date Type Department Care Team (Late st Contact Info) Description 09/30/2014 1:45 PM EST Office Visit Internal Medicine at [address] [address] Miriam Miller PA [facility] [place] [address] Persistent mood disorder; Asthma, mild intermittent, uncomplicated Discharge Disposition: Home Social History Tobacco Use [...] Sign Reading Time Taken Comments Blood Pressure 129/81 09/30/2014 2:05 PM EST lef t arm Pulse 85 09/30/2014 2:05 PM EST Temperature 37 ??C (98.6 ??F) 09/30/2014 2:05 PM EST Respiratory Rate 16 09/30/2014 2:05 PM EST Oxygen Saturation 99% 09/30/2014 2:05 PM EST Inhaled Oxygen Concentration - - Weight 114.3 kg (252 lb) 09/30/2014 2:05 PM EST Height 177.8 cm (5' 10) 09/30/2014 2:05 PM EST Body Mass Index 36.16 09/30/2014 2:05 PM EST documented in this encounter Progress Notes * Miriam Miller PA - 09/30/2014 2:30 PM EST PATIENT: Tracie Layton : 1970 PCP: DEUCE RICHARDSON APRN CHIEF COMPLAINT: Chief Complaint Patient presents with ??? Establish Care HISTORY OF PRESENT ILLNESS: Tracie Layton is a 43 y.o. female who presents to the office today as a new patient to establish care. Previous PCP: Aminata Lundberg in [place] (last seen there last month) Specialists: Neurology at [facility] Concerns today: # upcoming ultrasound Having second vaginal ultrasound and is worried about it. Has this scheduled for 10/07 Had 1st US about 6 weeks ago She states that they aaw a mass on the left ovary Has h/o cervical cancer (2001) Had pap in August - is not sure if that came back normal or not Still having lower abdominal cramping - has had it for 5-6 months Has period right now No bloating Moving bowels OK. No BRBPR. No fevers #Previous weight loss 52# over a 3 month time period at the beginning of this year Had EGD Was on methadone and oxycodone and she thinks that those made her feel sick Sxs resolved when she stopped taking the methadone and oxycodone Weight has been stable since stopping these meds No fevers, chills, night sweats #Restless leg syndrome Was on mirapex for quite a long time for this She felt like after a while she would get some phlegm build up Last time she took the mirapex was 3 months ago Phlegm resolved with stopping this She would like to try mirapex again #Chronic low back pain Right now she feels like her HAs are actually distracting from this Has had injections in the past #HAs Post-concussive. Followed by neuro here at [facility] #Mood Depression, anxiety, panic disorder Thinks she was first diagnosed by Cece Herrera PTSD, agoraphobia, bipolar Does not like to leave the house Been depressed for a long time Has been on meds in the past - too many to name Had counselor in [facility] who she really liked. She is on sabatical She knows she needs to see somebody Would like a female therapist [facility] - saw a psychiatrist there Staying with daughter in [facility] Doesn't sleep well Always feels tired Appetite varies Tried OD on pills in past Rare Etoh No drug use Really good support system. No SI/HI PHQ9 Questionnaires Data (Clinic and Pt Entered): Today's value PHQ-9 QUESTIONNAIRE (AMB) 09/30/2014 PHQ - 9 Score (Clinic) 2 (Minimal Depression) Little interest or pleasure (Clinic) Several Days Down, depressed, hopeless (Clinic) Several Days REVIEW OF SYSTEMS: Review of Systems Reviewed in detail - per HPI. Patient Active Problem List Diagnosis ??? Persistent mood disorder ??? Post-traumatic headache ??? Bilateral occipital neuralgia ??? Post concussive syndrome ??? Persistent headaches Past Surgical History Procedure Laterality Date ??? Upper gi endoscopy, biopsy 01/08/2014 EGD WITH BIOPSY performed by Ilya Whitney MD at [facility] ENDOSCOPY ??? Cervix surgery ??? section Social History Narrative None on file Family History Problem (# of Occurrences) Relation (Name,Age of Onset) Brain Tumor (1) Mother Allergies Allergen Reactions ??? Bactrim [Sulfamethoxazole-Trimethoprim] Anaphylaxis ??? Aleve [Naproxen Sodium] Rash ??? Keflex [Cephalexin] Other (See Comments) Racing heart ??? Meloxicam Nausea Only Current Outpatient Prescriptions Medication Sig Dispense Refill ??? fluticasone-salmeterol (ADVAIR) 100-50 mcg/dose Disk with [...] dihydroergotamine (MIGRANAL) 0.5 mg/pump act. (4 mg/mL) [place], Non-Aerosol Prime the pump 4 times, Place [...] medications for this visit. PHYSICAL EXAM: BP 129/81 Pulse 85 Temp(Src) 37 ??C (98.6 ??F) Resp 16 Ht 177.8 cm (5' 10) Wt 114.306 kg(252 lb) BMI 36.16 kg/m2 SpO2 99% LMP 09/30/2014 Physical Exam Constitutional: She is oriented to person, place, and time. Overweight, in NAD Neurological: She is alert and oriented to person, place, and time. Psychiatric: Her speech is normal. Her mood appears anxious. She is withdrawn. She exhibits a depressed mood. ASSESSMENT/PLAN: Tracie was seen today for establish care. We need her medical records. It sounds like she has an extensive medical history and it is difficult to know what has and has not been done per her report today. She has had close medical care at [facility] and has no new acute issues today. Diagnoses and associated orders for this visit: Persistent mood disorder - Referral to Psychiatry - Confided for safety today. Has been on many meds in the past with complex psych history. Needs a provider who she can follow with terminal make up operator and develop relationship with. Prefers female provider. Asthma, mild intermittent, uncomplicated - Stable at present. - fluticasone-salmeterol (ADVAIR) 100-50 mcg/dose Disk with Device; Inhale 1 puff into the lungs every 12 hours. - albuterol (PROVENTIL HFA;VENTOLIN HFA) 90 mcg/actuation HFA Aerosol Inhaler; Inhale 2 puffs into the lungs every 4 hours as needed. Use with spacer F/u 1 month at which time we should have records. This was a 60 minute appointment, 50 minutes of which were spent in direct patient education and counseling. HERNANDEZ TAI documented in this encounter Plan of Treatment Upcoming Encounters Date Type Department Care Team (Late st Contact Info) Description 09/05/2024 9:00 AM EDT Office Visit Internal Medicine at [address] [id number] Gema Oliveira, [facility] [place] [address] Scheduled Referrals Name Type Priority Associated Diagnoses Order Schedule Referral to Psychiatry Outpatient Referral Routine Persistent mood disorder Ordered: 09/30/2014 documented as of this encounter Visit Diagnoses Diagnosis Persistent mood disorder Unspecified episodic mood disorder Asthma, mild intermittent, uncomplicated documented in this encounter Care Teams Supervisor Agency Appointments Relationship Specialty Start Date End Date Deuce Richardson APRN [facility] [place] [address] PCP - General 09/26/14 01/05/15 documented as of this encounter
--- OUTSIDE RECORDS SUMMARY | 2024-07-12 00:36 | XMS_ITS | Encounter Summary ---
Author Organization [facility] [address] Care Team Providers Care Supervisor Engraving Name Role Phone Cece Herrera MD Primary Care Provider [phone] Reason for Visit * Reason Comments Back Pain Bilateral Leg Pain Encounter Details Date Type Department Care Team (Late st Contact Info) Description 06/21/2013 10:20 AM EDT Office [place] [address] Ghazal Escobar APRN [facility] [place] [address] Chronic LBP (Primary Dx) Discharge Disposition: Home Social History Tobacco Use Types Packs/Day Years Used Date Smoking Tobacco: Every Day Cigarettes 1 25 Sex and Gender Information Value Date Recorded Sex Assigned at Not on file Gender Identity Not on file Sexual Orientation Not on file documented as of this encounter Last Filed Vital Signs Vital Sign Reading Time Taken Comments Blood Pressure 139/79 06/21/2013 10:50 AM EDT Pulse - - Temperature - - Respiratory Rate - - Oxygen Saturation - - Inhaled Oxygen Concentration - - Weight 125.6 kg (277 lb) 06/21/2013 10:50 AM EDT Height 177.8 cm (5' 10) 06/21/2013 10:50 AM EDT Body Mass Index 39.75 06/21/2013 10:50 AM EDT documented in this encounter Patient Instructions * Patient Instructions* Lashell Meyer LPN - 06/21/2013 10:56 AM EDT Welcome to [facility], your secure online access to your electronic medical record at [facility]. Using [facility] you will be able to send messages to your providers, view your test results, renew prescriptions, schedule appointments, and much more. Follow these instructions to enter your personal [employer] [facility] account for the first time: 1. Start your internet browser and type [email or web address] into the address bar. 2. In the New User box on the right-hand side of the Welcome page click the link that states, ???I have an activation code.?? 3. On the Identification page, follow these steps: a) Enter your [employer] [facility] activation code: [email or web address] b) Expires: 08/05/2013 10:56 AM IMPORTANT: This Activation Code will on the above mentioned date. If you do not sign up for [employer] [facility] by this date, you will need to request another activation code. c) Enter your date of , using the calendar tool provided. d) Enter your Zip code. e) Select ???submit?? to go to the next page. 4. On the Create Account page, follow these steps: a) Create a [employer] [facility] username. This can???t be changed, so choose one you won???t forget. b) Create a password that???s at least six characters long, and that contains at least two numbers.Your password can be changed at any time. Confirm your password by entering it once more. c) Enter your email address. This will be used to alert you to new information. Confirm your email address by entering it once more. d) Enter your security question. This will be used if you forget your password. e) Enter your security answer. Confirm your security answer by entering it once more. f) Select ???submit?? to view your electronic medical record. If you have any questions about [employer] [facility] or your Access Code, please call for [place], for [place] or for [place]. If you need technical support, please e-mail [email or web address]. Remember, [facility] is NOT for urgent needs! Always dial 911 for medical emergencies. documented in this encounter Progress Notes * Ghazal Escobar, HORTICULTURE SUPERVISOR - 06/21/2013 11:41 AM EDT CHIEF COMPLAINT: Back pain and left thigh symptoms. HISTORY OF PRESENT ILLNESS: Ms. Layton relates having a five-year history of symptoms that came on after she fell from a hammock and has had some component of pain since. Symptoms today include low back pain that is present daily. This radiates into both buttocks, the lateral and posterior left thigh, minimally on the right. She denies any numbness or tingling, but does have weakness with a limp on the left. Back pain worse than leg pain, rated at 4/10 today, although about once a month it can get as high as 10/10. It is worse with all activities. Feels better when she shifts positions. She has difficulty with sleeping. She has pain when she rolls Over at night. She has been treated with prednisone, which was not helpful. REVIEW OF SYSTEMS: Review of systems is positive for stress incontinence. No other GI, , or constitutional symptoms. SOCIAL HISTORY: She smokes one pack a day for 25 years and advised to quit. She has two to four drinks a month and is seen today in the company of her daughter. OBSERVATION: She is pleasant, has good eye contact. Stated height of 5 feet 10 inches, stated weight of 277 pounds. She ambulates in the clinic with a limp. Can heel walk and toe walk. Has level shoulders and hips, and has remained partially dressed today, so I can not assess her popliteal folds. She has pain with palpation from L3 to the sacrum. From her waist, flexes forward only to her thigh. She extends only to midline and has increased pain in her lower back with all of these maneuvers including twisting and lateral rotation. Has a normal motor evaluation of 5/5 and normal sensory evaluation to touch. Reflexes are 2+ at knees and heels. Straight leg raise, femoral tension stretch, and MARIA G all cause low back pain. No clonus. No Babinski. Palpable pulses x2. DIAGNOSTIC DATA: Imaging includes an MRI from several weeks ago from an outside facility that shows L5-S1 disk degeneration with broad-based disk bulge and annular tear with no foraminal stenosis. She also has hypertrophic changes in the facet at L4-L5. IMPRESSION: Chronic back pain. PLAN: Tracie Layton is a pleasant 42-year-old female who has several medical comorbidities including agoraphobia, she was in a hammock that broke, she landed injuring her coccyx on cement and has had some component of back pain since then. Most of her pain today seems to be from L3 to the sacrum. I can exacerbate this by movements of lateral rotation, twisting, flexion, and extension. She does have pain in both thighs, left greater than right and she is finding that she is limping now due to the amount of pain that she has. On exam has normal sensation, reflexes, and strength, and all my testing tend to cause her to have back pain. We reviewed her imaging at some length and discussed a plan of care. I have suggested that she may want to try physical therapy. I gave her the back book and she was going to consider whether she wants to have a Priyanka-based program. We have discussed antiinflammatory. She has been on meloxicam, ibuprofen, and Naprosyn in the past. I wrote a prescription for diclofenac for her. We discussed that we treat annular tears, which can cause back pain, with steroid injection and should she call I would order one or two p.r.n., two to three weeks apart. We also discussed facet injections and I gave her the brochures for these, which might be a good place to start. I would order these bilaterally from L3 to the sacrum. I have explained to her that she has two potential problems that may contribute to back pain, this would potentially be the facet as well as the annular tear. She is going to consider her options and will call and let the nursing staff know how she would like to proceed. documented in this encounter Plan of Treatment Upcoming Encounters Date Type Department Care Team (Late st Contact Info) Description 09/05/2024 9:00 AM EDT Office Visit Internal Medicine at [address] [address] Gema Oliveira, [facility] [place] [address] documented as of this encounter Visit Diagnoses Diagnosis Chronic LBP- Primary Lumbago documented in this encounter Care Teams Supervisor Engraving Relationship Specialty Start Date End Date Cece Herrera MD [address] [place] [id number] PCP - General 10/12/10 03/04/14 documented as of this encounter
--- OUTSIDE RECORDS SUMMARY | 2024-07-12 00:36 | XMS_ITS | Encounter Summary ---
Author Organization [facility] Address [facility] [place] [address] Care Team Providers Care Pigment Supplier Name Role Phone Nicolle Spencer MD Primary Care Provider [phone] Reason for Visit * Reason Onset Date Comments Prior Authorization 01/21/2015 BOTOX APPROV ED 03/11/15-06/10/15 Encounter Details Date Type Department Care Team (Late st Contact Info) Description 01/21/2015 [place] [address] Gracie Mark MD [facility] [place] [address] Prior Authorization (BOTOX APPROVED 03/11/15-06/10/15) Social History Tobacco Use Types Packs/Day Years [...] * Telephone Encounter - Suzan Guzmán - 03/18/2015 10:54 AM EDT BOTOX APPROVED 03/11/15-06/10/15 [id number] 200 UNITS EVERY 90 DAYS FOR 3 MONTHS. 1 DOSE OF J0585 APPROVED FOR A TOTAL OF 200 UNITS FOR 3 MONTHS. PA #: [id number] * Telephone Encounter - Suzan Guzmán - 03/12/2015 11:59 AM EDT FAXED. * Telephone Encounter - Gracie Mark MD - 03/04/2015 4:10 PM EDT Addended Documentation for 01/20/2015 encounter has been printed Please fax back to the company for reconsideration along with the tracking Number Thank you Gracie Mark MD [facility] Neurology Headache Fellow * Telephone Encounter - Gracie Mark MD - 03/04/2015 4:02 PM EDT Called PA department [phone] TRACKING # [id number] 03/04/2015 @ 3:48 pm Placed on hold Spoke with [place] @ 355pm Transferring to the Pharmacist Niya @ 357 Stated that they did not receive documentation reflecting that the patient???s daily headache is there all of the time. They are also asking why the patient has not tried a medication such as beta baudilio or calcium channel baudilio. Concluded phone call at 401pm * Telephone Encounter - Suzan Guzmán - 02/20/2015 10:59 AM EDT BOTOX [id number] PER INSURANCE: ADDITIONAL INFORMATION PROVIDED WAS REVIED. WHILE THE PATIENT HAS TRIED A LARGE NUMBER OF MEDICATIONS, THERE IS STILL NO RECORD THAT THE PATIENT HAS TRIED AND FAILED SUMATRIPTAN, WAS REQUIRED. PATIENT DOES NOT MEET PDL REQUIREMENTS. * Telephone Encounter - Suzan Guzmán - 02/19/2015 11:47 AM EDT BOTOX DENIED-APPEALING ALL APPEAL INFO ATTACHED WELL. * Telephone Encounter - Gracie Mark MD - 02/18/2015 9:43 AM EDT Letter has been Generated Gracie Mark MD [facility] Neurology Headache Fellow * Telephone Encounter - Suzan Guzmán - 01/22/2015 8:39 AM EST BOTOX DENIED PT NEEDS TRIAL OF AT LEAST TWO MEDICATIONS FOR MIGRAINE PROPHYLAXIS FROM AT LEAST TWO DIFFERENT CLASSES. * Telephone Encounter - Leah Camargo LNA - 01/21/2015 1:14 PM EST BOTOX [place] RECE[place] BY [place] TRACKING # [id number] * Telephone Encounter - Leah Camargo LNA - 01/21/2015 11:35 AM EST [place] FOR BOTOX FAX[place] documented in this encounter Plan of Treatment Upcoming Encounters Date Type Department Care Team (Late st Contact Info) Description 09/05/2024 9:00 AM EDT Office Visit Internal Medicine at [address] [address] Gema Oliveira, [facility] [place] [address] documented as of this encounter Visit Diagnoses Not on filedocumented in this encounter Care Teams Pigment Supplier Relationship Specialty Start Date End Date Nicolle Spencer MD [facility] GENER[facility] [place] [address] PCP - General 01/21/15 12/05/16 documented as of this encounter
--- OUTSIDE RECORDS SUMMARY | 2024-07-12 00:36 | XMS_ITS | Encounter Summary ---
Author Organization [facility] [place] [address] Care Team Providers Care Senior Research Consultant Name Role Phone Erika Richardson APRN Primary Care Provider [phone]- [phone] Reason for Visit * Reason Comments Otalgia both painful for 2 d ays Pharyngitis for 2 day Nasal Congestion a week Encounter Details Date Type Department Care Team (Late st Contact Info) Description 01/05/2015 1:25 PM EST Office Visit Internal Medicine at [address] [address] Leah Negron MD [facility] [place] [address] Acute ethmoidal sinusitis (Primary Dx); Sore throat; Tobacco abuse Discharge Disposition: Home Social History Tobacco Use [...] Sign Reading Time Taken Comments Blood Pressure 128/80 01/05/2015 1:53 PM EST Pulse 103 01/05/2015 1:53 PM EST Temperature 36.5 ??C (97.7 ??F) 01/05/2015 1:53 PM ES T Respiratory Rate - - Oxygen Saturation 98% 01/05/2015 1:53 PM EST Inhaled Oxygen Concentration - - Weight 115.1 kg (253 lb 12.8 oz) 01/05/2015 1:53 PM EST Height 177.8 cm (5' 10) 01/05/2015 1:53 PM EST reported Body Mass Index 36.42 01/05/2015 1:53 PM EST documented in this encounter Patient Instructions * Patient Instructions* Leah Negron MD - 01/05/2015 2:12 PM EST [facility] Saline Nasal Washes: After Your Visit Your Care Instructions Saline nasal washes help keep the nasal passages open by washing out thick or dried mucus. This simple remedy can help relieve symptoms of allergies, sinusitis, and colds. It also can make the nose feel more comfortable by keeping the mucous membranes moist. You may notice a little burning sensation in your nose the first few times you use the solution, but this usually gets better in a few days. Follow-up care is a sandhu part of your treatment and safety. Be sure to make and go to all appointments, and call your doctor if you are having problems. It???s also a good idea to know your test results and keep a list of the medicines you take. How can you care for yourself at home? ?? You can buy premixed saline solution in a squeeze bottle or other sinus rinse products at a drugstore. Read and follow the instructions on the label. ?? You also can make your own saline solution by adding 1 teaspoon of salt and 1 teaspoon of bakingsoda to 2 cups of distilled water. ?? If you use a homemade solution, pour a small amount into a clean bowl. Using a rubber bulb syringe, squeeze the syringe and place the tip in the salt water. Pull a small amount of the salt water into the syringe by relaxing your hand. ?? Sit down with your head tilted slightly back. Do not lie down. Put the tip of the bulb syringe or the squeeze bottle a little way into one of your nostrils. Gently squirt a small amount (about 1 teaspoon) into the nostril. Repeat with the other nostril. Some sneezing and gagging are normal at first. ?? Gently blow your nose. ?? Wipe the syringe or bottle tip clean after each use. ?? Repeat this 2 or 3 times a day. ?? Use nasal washes gently if you have nosebleeds often. When should you call for help? Watch closely for changes in your health, and be sure to contact your doctor if: ?? You often get nosebleeds. ?? You have problems doing the nasal washes. Where can you learn more? Visit our health information library at http://[employer] You can also view health information on [employer], your personal patient account. Log in or sign up today. Enter B784 in the search box to learn more about Saline Nasal Washes: After Your Visit. ?? [id number] [employer]. Care instructions adapted under license by [facility]. This care instruction is for use with your licensed healthcare professional. If you have questions about a medical condition or this instruction, always ask your healthcare professional. [employer] disclaims any warranty or liability for your use of this information. Content Version: 10.3.446466; Current as of: January 29, 2014 documented in this encounter Progress Notes * Leah Negron MD - 01/05/2015 1:56 PM EST ESTABLISHED PATIENT VISIT Chief Complaint Patient presents with ??? Otalgia both painful for 2 days ??? Pharyngitis for 2 day ??? Nasal Congestion a week Pt is a 44 y.o. who presents for follow up visit for ear pain. Sinuses have been plugged for one week, ears hurt, sore throat. No one is sick in the house. Post nasal drip, yellow drainage, not sure about a fever. Smokes 1/2 PPD. ROS: Constitutional - no fevers, chills, weight loss or gain, fatigue HEENT - + difficulty swallowing, hearing, nasal congestion or postnasal drip Respiratory - No new SOB, BAUMANN, wheeze, cough, sputum production Cardiovascular - No new CP, palpitations, angina, edema, claudication Gastrointestinal - No new abdominal pain, nausea, GERD, constipation, diarrhea, blood in stool - no new difficulty urinating, incontinence or dysuria. Musculoskeletal - No new weakness, pain at rest or with movement Skin - no new rashes All other systems negative Patient Active Problem List Diagnosis ??? Restless [...] ??? Post concussive syndrome ??? Persistent headaches Current Outpatient Prescriptions on File Prior to [...] mouth every evening. 30 tablet 3 ??? buPROPion (WELLBUTRIN SR) 150 mg Tablet Sustained Release Take 1 tablet by mouth 2 times daily.Start with 1 tablet daily. After 3 days, increase to 2 tablets daily. 60 tablet 3 ??? fluticasone-salmeterol (ADVAIR) [...] dihydroergotamine (MIGRANAL) 0.5 mg/pump act. (4 mg/mL) [place], Non-Aerosol Prime the pump 4 times, Place [...] facility-administered medications on file prior to visit. Allergies Allergen Reactions ??? Bactrim [Sulfamethoxazole-Trimethoprim] [...] No Comment: rarely/ seldom ??? Drug Use: Yes Comment: scant marijuana use ??? Sexual Activity: Partners: Male Other Topics Concern ??? Not on file Social History Narrative Personal/Psych History: ETOH: rarely [...] asthma, cancer, ? Brain tumor Father: alcoholism Physical Exam: BP 128/80 Pulse 103 Temp(Src) 36.5 ??C (97.7 ??F) Ht 177.8 cm (5' 10) Wt 115.123 kg (253 lb 12.8 oz) BMI 36.42 kg/m2 SpO2 98% General - No acute distress. ENT - Mouth without lesions. + sinus pain, + red TM bl Eyes- EOMI. Not jaundiced. Noninjected Neck - + tender lymphadenopathy. No thyromegaly Lungs - Clear to auscultation. Heart - RRR, S1,S2, no audible murmur, gallop or rub. \ Assessment and Plan: Tracie was seen today for otalgia, pharyngitis and nasal congestion. Diagnoses and associated orders for this visit: Acute ethmoidal sinusitis - doxycycline monohydrate (MONODOX) 100 mg Capsule; Take 1 capsule by mouth 2 times daily for 10 days. Saline wash and probiotics. Rest, fluids. Sore throat As above. Tobacco abuse Discussed quitting and she is trying this. documented in this encounter Plan of Treatment Upcoming Encounters Date Type Department Care Team (Late st Contact Info) Description 09/05/2024 9:00 AM EDT Office Visit Internal Medicine at [address] [address] Gema Oliveira, [facility] [place] [address] documented as of this encounter Visit Diagnoses Diagnosis Acute ethmoidal sinusitis- Primary Sore throat Acute pharyngitis Tobacco abuse Tobacco use disorder documented in this encounter Care Teams Senior Research Consultant Relationship Specialty Start Date End Date [place] [address] [place] [address] PCP - General 09/26/14 01/05/15 documented as of this encounter
--- OUTSIDE RECORDS SUMMARY | 2024-07-12 00:37 | XMS_ITS | Encounter Summary ---
Author Organization [facility] Address [address] [place] [address] Care Team Providers Care Drier And Evaporator Operator Name Role Phone Cece Herrera MD Primary Care Provider +1- [phone] Encounter Details Date Type Department Care Team (Late st Contact Info) Description 04/03/2020 Lab Requisition [facility] Pathology & Laboratory Medicine - [address] [address] Outr Resulting Lab, Provider Social History Tobacco Use Types Packs/Day Years Used Date Smoking Tobacco: Never Assessed Sex and Gender Information Value Date Recorded Sex Assigned at Not on file Gender Identity Not on file Sexual Orientation Not on file documented as of this encounter Plan of Treatment Not on file documented as of this encounter Procedures Procedure Name Priority Date/Time Associated Diagnosis Comments DO NOT ORDER STANDALONE - [facility] COVID TEST Today 04/03/2020 11:24 EDT COVID-19 TESTING Routine 04/03/2020 11:2 4 EDT documented in this encounter Results * DO NOT ORDER STANDALONE - BROAD COVID TEST (04/03/2020 11:24 EDT) COVID-19 rt-PCR Result NEGATIVE Negative 04/04/2020 11:40 EDT [facility] Comment: 2019-novel Coronavirus (2019-nCoV) not detected by the qRT-PCR assay. Consider testing for other respiratory viruses or re-collecting for 2019-nCoV testing. Note: Optimum timing for peak viral levels during infections caused by 2019-nCoV have not been determined. Collection of multiple specimens from the same patient may be necessary to detect the virus. Limitations Positive results are indicative of active infection with SARS-CoV-2 but do not rule out bacterial infection or co-infection with other viruses. The agent detected may not be the definite cause of disease. In addition, detection of viral RNA may not indicate the presence of infectious virus or that SARS-CoV-2 is the causative agent for clinical symptoms. Negative results do not preclude SARS-CoV-2 infection and should not be used as the sole basis for patient management decisions. Negative results must be combined with clinical observations, patient history, and epidemiological information. False negative results may also occur if amplification inhibitors are present in the specimen or if inadequate numbers of organisms are present in the specimen. Optimum specimen types and timing for peak viral levels during infections caused by SARS-CoV-2 have not been fully determined. Collection of multiple specimens (types and time points) from the same patient may be necessary to detect the virus. The test was validated for use with upper respiratory specimens obtained via nasopharyngeal or oropharyngeal swabs in VTM, UTM, M4, M5, M6, saline, and MTM media. The performance of this test has not been established for other specimens. Specimens collected using other FDA recommended Specimen Collection Materials listed in the FDA COVID-19 [employer] communication (February 13, 2020) are processed with the caveat that they were not all validated for use with this test and the result must be interpreted in this context. Furthermore, a false negative results may occur if a specimen is improperly collected, transported or handled. If the virus mutates in the RT-PCR target region, SARS-CoV-2 may not be detected or may be detected less predictably. Inhibitors or other types of interference may produce a false negative result. An interference study evaluating the effect of common cold medications was not performed. This test is not FDA-cleared but its performance characteristics were established by our CLIA-certified, CAP-accredited, high complexity laboratory in accordance with CLIA regulations, [employer] (CAP) guidelines (Feb 06, 2020), and FDA guidance (Jan 18, 2020). This test is only for use under the Food and Drug Administration's Emergency Use Authorization. Swab ENTIRE NASOPHARYNX / Unknown 04/03/2020 11:24 EDT 04/03/2020 15:20 EDT Provider Outr Resulting Lab MICROBIOLOGY - GENERAL ORDERABLES [place] * COVID-19 TESTING (04/03/2020 11:24 EDT) COVID-19 rt-PCR Result NEGATIVE Negative 04/04/2020 14:49 EDT [facility] Comment: 2019-novel Coronavirus (2019-nCoV) not detected by the qRT-PCR assay. Consider testing for other respiratory viruses or re-collecting for 2019-nCoV testing. Note: Optimum timing for peak viral levels during infections caused by 2019-nCoV have not been determined. Collection of multiple specimens from the same patient may be necessary to detect the virus. Limitations Positive results are indicative of active infection with SARS-CoV-2 but do not rule out bacterial infection or co-infection with other viruses. The agent detected may not be the definite cause of disease. In addition, detection of viral RNA may not indicate the presence of infectious virus or that SARS-CoV-2 is the causative agent for clinical symptoms. Negative results do not preclude SARS-CoV-2 infection and should not be used as the sole basis for patient management decisions. Negative results must be combined with clinical observations, patient history, and epidemiological information. False negative results may also occur if amplification inhibitors are present in the specimen or if inadequate numbers of organisms are present in the specimen. Optimum specimen types and timing for peak viral levels during infections caused by SARS-CoV-2 have not been fully determined. Collection of multiple specimens (types and time points) from the same patient may be necessary to detect the virus. The test was validated for use with upper respiratory specimens obtained via nasopharyngeal or oropharyngeal swabs in VTM, UTM, M4, M5, M6, saline, and MTM media. The performance of this test has not been established for other specimens. Specimens collected using other FDA recommended Specimen Collection Materials listed in the FDA COVID-19 [employer] communication (February 13, 2020) are processed with the caveat that they were not all validated for use with this test and the result must be interpreted in this context. Furthermore, a false negative results may occur if a specimen is improperly collected, transported or handled. If the virus mutates in the RT-PCR target region, SARS-CoV-2 may not be detected or may be detected less predictably. Inhibitors or other types of interference may produce a false negative result. An interference study evaluating the effect of common cold medications was not performed. This test is not FDA-cleared but its performance characteristics were established by our CLIA-certified, CAP-accredited, high complexity laboratory in accordance with CLIA regulations, [employer] (CAP) guidelines (Feb 06, 2020), and FDA guidance (Jan 18, 2020). This test is only for use under the Food and Drug Administration's Emergency Use Authorization. Performing Lab [facility] [place] 04/04/2020 14:49 EDT [facility] Swab ENTIRE NASOPHARYNX / Unknown 04/03/2020 11:24 EDT 04/03/2020 15:20 EDT Provider Outr Resulting Lab MICROBIOLOGY - GENERAL ORDERABLES [facility] [address] [place] [address] [facility] [place] documented in this encounter Visit Diagnoses Not on filedocumented in this encounter Care Teams Drier And Evaporator Operator Relationship Specialty Start Date End Date Cece Herrera MD [address] [place] [phone] PCP - General 03/24/09 documented as of this encounter
--- OUTSIDE RECORDS SUMMARY | 2024-07-12 00:37 | XMS_ITS | Encounter Summary ---
Author Organization [facility] Address [address] [place] [address] Care Team Providers Care Decorative Engraver Apprentice Name Role Phone Unavailable Primary Care Provider Unavailabl e Encounter Details Date Type Department Care Team (Latest Contact Info) Description 03/18/2009 9:54 EDT - 03/18/2009 9:58 EDT Hospital Encounter [facility] - Other [address] [place] [address] Cece Herrera MD [address] [place] [phone] Discharge Disposition: Home or Self Care Social History Tobacco Use Types Packs/Day Years Used Date Smoking Tobacco: Never Assessed Sex and Gender Information Value Date Recorded Sex Assigned at Not on file Gender Identity Not on file Sexual Orientation Not on file documented as of this encounter Discharge Disposition Disposition Code Departure Means Destination Home or Self Care documented in this encounter Plan of Treatment Not on file documented as of this encounter Procedures Procedure Name Priority Date/Time Associated Diagnosis Comments BACTERIAL CULTURE, FECES Routine 06/05/2009 15:57 EDT HPV DETECTION, HIGH RISK TYPES Routine 03/18/2009 14:36 EDT documented in this encounter Results * BACTERIAL CULTURE, FECES (06/05/2009 15:57 EDT) Specimen Description Feces [facility] Result No Salmonella, Shigella, Campylobacte r, Yersinia, or E. coli O157:H7 isolated [facility] Report Status Final 06/08/2009 [facility] 06/05/2009 15:5 7 EDT 06/05/2009 17:26 EDT Cece Herrera MD MICROBIOLOGY - GEN ERAL ORDERABLES Performing Organization Address [facility] Co de Phone Number [facility] [address] [place] [address] * HUMAN PAPILLOMA VIRUS DNA TEST (03/18/2009 14:36 EDT) Specimen Description Cervix, ThinPrep vial [facility] Result Negative for HPV types 16, 18, 31, 33, 35, 39, 45, 51, 52, 56, 58, 59, and 68. [facility] Report Status Final 03/31/2009 [facility] 03/18/2009 14:3 6 EDT 03/25/2009 14:36 EDT Cece Herrera MD MICROBIOLOGY - GEN ERAL ORDERABLES Performing Organization Address [facility] Co de Phone Number [facility] [address] [place] [address] documented in this encounter Visit Diagnoses Not on filedocumented in this encounter
--- OUTSIDE RECORDS SUMMARY | 2024-07-12 00:37 | XMS_ITS | Encounter Summary ---
Author Organization [facility] Address [address] [place] [address] Care Team Providers Care Interpretive Naturalist Name Role Phone Cece Arango MD Primary Care Provider +1- [phone] Encounter Details Date Type Department Care Team (Late st Contact Info) Description 02/26/2008 Results Only [facility] [place] [facility] [address] [place] [address] Cece Arango MD [address] [place] [phone] Social History Tobacco Use Types Packs/Day Years Used Date Smoking Tobacco: Never Assessed Sex and Gender Information Value Date Recorded Sex Assigned at Not on file Gender Identity Not on file Sexual Orientation Not on file documented as of this encounter Plan of Treatment Not on file documented as of this encounter Procedures Procedure Name Priority Date/Time Associated Diagnosis Comments CYTOPATHOLOGY Routine 02/26/2008 0:00 EDT documented in this encounter Results * CYTOPATHOLOGY (02/26/2008 0:00 EDT) Pathology Report: CYTOPATHOLOGY REPORT Reports generated via electronic interface contain original data; however they are lacking the format of the original report. Caution should be taken when reading/interpreti ng unformatted reports. Name: ? TRACIE HAYDEN ? Accession #: ? [id number] : ? 1970 (Age: 37) ??F ?Collect Date: ? 02/26/2008 Location: ? [facility] ? Receive Date: ? 02/28/2008 Provider: ?CECE ARANGO MD Copy to: ? Specimen/Source: ?ThinPrep Pap Test, Vagina/Cervix/Endo cervix, processed on [employer] ThinPrep Imaging System, with manual evaluation Last Menstrual Period: ? 02-06-08 Other: ? HPVA - HPV testing requested if ASC-US on the current ThinPrep Pap test. ? SPECIMEN ADEQUACY ? Satisfactory for Evaluation - transformation zone component present GENERAL CATEGORIZATION ? Negative for Intraepithelial Lesion or Malignancy INTERPRETATION ? Shift in eddie present suggestive of bacterial vaginosis. ? Document reviewed and electronically signed by: ? Portia Mcmullen, SCT(ASCP) ? Report Date: ??03/04/2008 14:57 End of Report [facility] 02/26/2008 02/28/2008 Cece Arango MD PATHOLOGY ORDERABL ES Performing Organization Address City/State/[facility] Co de Phone Number [facility] [address] [place] [address] documented in this encounter Visit Diagnoses Not on filedocumented in this encounter Care Teams Interpretive Naturalist Relationship Specialty Start Date End Date Cece Arango MD [address] [place] [phone] PCP - General 03/24/09 documented as of this encounter
--- OUTSIDE RECORDS SUMMARY | 2024-07-12 00:37 | XMS_ITS | Encounter Summary ---
Author Organization [facility] Address [address] [place] [address] Care Team Providers Care Coconut Jelly Roller Name Role Phone Unavailable Primary Care Provider Unavailabl e Encounter Details Date Type Department Care Team (Latest Contact Info) Description 02/26/2008 15:[address] [facility] - Other [address] [place] [address] Cece Herrera MD [address] [place] [phone] Discharge Disposition: Home or Self Care Social [...] on file documented as of this encounter Visit Diagnoses Not on filedocumented in this encounter
--- OUTSIDE RECORDS SUMMARY | 2024-07-12 00:37 | XMS_ITS | Clinical Summary ---
Author Organization [facility] Address [address] [place] [address] Care Team Providers Care Gas Cutting Machine Operator Name Role Phone Cece Herrera MD Primary Care Provider +1- [phone] Social History Tobacco Use Types Packs/Day Years Used Date Smoking Tobacco: Never Assessed Interpersonal Safety Answer Date Record ed Physically Hurt Never 06/21/2020 Verbally Threaten Not on file 06/21/2020 Sex and Gender Information Value Date Recorded Sex Assigned at Not on file Gender Identity Not on file Sexual Orientation Not on file Plan of Treatment Health Maintenance Due Date Last Done Comments Hepatitis C Screen 1970 Hepatitis B Vaccine (1 of 3 - 19+ 3-dose series) 12/09 COVID-19 Vaccine (2022-24 season) 2023 Care Teams Gas Cutting Machine Operator Relationship Specialty Start Date End Date Cece Herrera MD [address] [place], [place] [address] [phone] PCP - General 03/24/09
--- OUTSIDE RECORDS SUMMARY | 2024-07-12 00:37 | XMS_ITS | Encounter Summary ---
Author Organization [facility] Address [address] [place] [address] Care Team Providers Care Fashion Editor Name Role Phone Cece Herrera MD Primary Care Provider +1- [phone] Encounter Details Date Type Department Care Team (Latest Contact Info) Description 07/27/2010 12:40 EDT - 07/27/2010 12:41 EDT Hospital Encounter [facility] - Other [address] [place] [address] Cece Herrera MD [address] [place] [phone] Discharge Disposition: Home or Self Care Social [...] on filedocumented in this encounter Care Teams Fashion Editor Relationship Specialty Start Date End Date Cece Herrera MD [address] [place] [phone] PCP - General 03/24/09 documented as of this encounter
--- OUTSIDE RECORDS SUMMARY | 2024-07-12 00:37 | XMS_ITS | Encounter Summary ---
Author Organization [facility] Address [address] [place] [address] Care Team Providers Care Plywood Layup Line Core Layer Name Role Phone Cece Arango MD Primary Care Provider +1- [phone] Encounter Details Date Type Department Care Team (Late st Contact Info) Description 08/26/2011 Results Only [facility] Laboratory Services - [facility] [address] [place], [place] [phone] Cece Arango MD [address] [place] [phone] Social History Tobacco Use Types Packs/Day Years Used Date Smoking Tobacco: Never Assessed Sex and Gender Information Value Date Recorded Sex Assigned at Not on file Gender Identity Not on file Sexual Orientation Not on file documented as of this encounter Plan of Treatment Not on file documented as of this encounter Procedures Procedure Name Priority Date/Time Associated Diagnosis Comments PAP TEST- RESULT ONLY Routine 08/26/2011 0:00 EDT documented in this encounter Results * PAP TEST- RESULT ONLY (08/26/2011 0:00 EDT) Pathology Report: CYTOPATHOLOGY REPORT Reports generated via electronic interface contain original data; however they are lacking the format of the original report. Caution should be taken when reading/interpreti ng unformatted reports. Name: ? TRACIE HAYDEN ? Accession #: ? [id number] ? : ? 1970 (Age: 40) ??F ?Collect Date: ? 08/26/2011 ? Location: ? [facility] ? Receive Date: ? 08/29/2011 ? Provider: CECE ARANGO MD Copy to: ? Final Report SPECIMEN ADEQUACY ? Satisfactory for Evaluation - transformation zone component present GENERAL CATEGORIZATION ? Negative for Intraepithelial Lesion or Malignancy ?? Specimen/Source: ??Pap Test, Cervix, ThinPrep Imaging System with manual evaluation Document reviewed and electronically signed by: ? Vinicius Camara, CT(ASCP) ? Report ??Date: 09/02/2011 12:58 HPV with Pap Test ? Date Ordered: ? 09/02/2011 ? Status: ?? Signed Out ?Date Complete: ? 09/08/2011 ? By: ??System Interface ? Date Reported: ? 09/08/2011 ? Interpretation RESULT: Positive for one or more of HPV types 16,18,31,33,35,39, 45, 51,52,56,58,59, or 68. These high/intermediate risk HPV types are associated with some squamous intraepithelial lesions and cervical cancers. Comments Document reviewed and electronically signed by: ? System Interface ? Report date: 09/08/2011 By the signature above, the attending physician certifies that he/she has personally conducted a gross and/or microscopic examination of the described specimens and rendered or confirmed the above diagnosis. End of Report [facility] 08/26/2011 08/29/2011 Cece Arango MD PATHOLOGY ORDERABL ES [facility] [address] [place] [address] documented in this encounter Visit Diagnoses Not on filedocumented in this encounter Care Teams Plywood Layup Line Core Layer Relationship Specialty Start Date End Date Cece Arango MD [address] [place] [address] [place] [phone] PCP - General 03/24/09 documented as of this encounter
--- OUTSIDE RECORDS SUMMARY | 2024-07-12 00:37 | XMS_ITS | Encounter Summary ---
Author Organization [facility] Address [address] [place] [address] Care Team Providers Care Watch Crystal Molder Name Role Phone Cece Herrera MD Primary Care Provider +1- [phone] Encounter Details Date Type Department Care Team (Latest Contact Info) Description 08/26/2011 16:22 EDT - 08/26/2011 16:24 EDT Hospital Encounter [facility] - [address] [address] Cece Herrera MD [address] [place] [phone] Discharge Disposition: Home or Self Care Social [...] on filedocumented in this encounter Care Teams Watch Crystal Molder Relationship Specialty Start Date End Date Cece Herrera MD [address] [place] [phone] PCP - General 03/24/09 documented as of this encounter
--- OUTSIDE RECORDS SUMMARY | 2024-07-12 00:37 | XMS_ITS | Encounter Summary ---
Author Organization [facility] Address [address] [place] [address] Care Team Providers Care Process Improvement Analyst Name Role Phone Cece Herrera MD Primary Care Provider +1- [phone] Encounter Details Date Type Department Care Team (Late st Contact Info) Description 05/11/2020 Lab Requisition [facility] Pathology & Laboratory Medicine - [address] [address] Outr Resulting Lab, Provider Social History Tobacco [...] Procedure Name Priority Date/Time Associated Diagnosis Comments ZZCOVID-19 TEST [facility] LAB PCR Today 05/11/2020 9:24 EDT COVID-19 TESTING Routine 05/11/2020 9:24 EDT documented in this encounter Results * COVID-19 TEST [facility] PCR (05/11/2020 9:24 EDT) Swab ENTIRE NASOPHARYNX / Unknown 05/11/2020 9:24 EDT 05/11/2020 15:52 EDT Provider Outr Resulting Lab MICROBIOLOGY - GENERAL ORDERABLES [facility] [address] [place] [address] * COVID-19 TESTING (05/11/2020 9:24 EDT) COVID-19 rt-PCR Result Negative Negative 05/12/2020 18:31 EDT [facility] Comment: Negative results do not preclude 2019-nCoV infection and should not be used as the sole basis for treatment or other patient management decisions. Negative results must be combined with clinical observations, patient history, and epidemiological information. This test was developed and its performance characteristics determined by [facility]. It has not been cleared or approved by the US Food and Drug Administration. FDA does not require this test to go through premarket FDA review. This test is used for clinical purposes. It should not be regarded as investigational or for research. This laboratory is certified under the Clinical Laboratory Improvement Amendments (CLIA) as qualified to perform high complexity clinical laboratory testing. This test is based on the CDC COVID-19 Emergency Use Authorization (EUA) assay, with minor modification as defined by the FDA Performed on the [employer] 7500 Fast. Performing Lab AB [address] [facility] 05/12/2020 18:31 EDT [facility] Swab 05/11/2020 9:24 EDT 05/11/2020 15:52 EDT Provider Outr Resulting Lab MICROBIOLOGY - GENERAL ORDERABLES [facility] [address] [place] [address] documented in this encounter Visit Diagnoses Not on filedocumented in this encounter Care Teams Process Improvement Analyst Relationship Specialty Start Date End Date Cece Herrera MD [address] [place] [phone] PCP - General 03/24/09 documented as of this encounter
--- OUTSIDE RECORDS SUMMARY | 2024-07-12 00:37 | XMS_ITS | Encounter Summary ---
Author Organization [facility] Address [address] [place] [address] Care Team Providers Care Export Traffic Department Manager Name Role Phone Cece Herrera MD Primary Care Provider +1- [phone] Encounter Details Date Type Department Care Team (Latest Contact Info) Description 06/04/2009 18:49 EDT - 06/04/2009 18:50 EDT Hospital Encounter [facility] - Other [address] [place] [address] Cece Herrera MD [address] [place] [phone] Discharge Disposition: Home or Self Care Social [...] on filedocumented in this encounter Care Teams Export Traffic Department Manager Relationship Specialty Start Date End Date Cece Herrera MD [address] [place] [phone] PCP - General 03/24/09 documented as of this encounter
--- OUTSIDE RECORDS SUMMARY | 2024-07-12 00:37 | XMS_ITS | Encounter Summary ---
Author Organization [facility] Address [address] [place] [address] Care Team Providers Care Prevention Specialist Name Role Phone Unavailable Primary Care Provider Unavailabl e Encounter Details Date Type Department Care Team (Latest Contact Info) Description 01/11/2007 19:37 EST Hospital Encounter [facility] - Other [address] [place] [address] Cece Herrera MD [address] [place] [phone] Discharge Disposition: Home or Self Care Social [...]
--- OUTSIDE RECORDS SUMMARY | 2024-07-12 00:37 | XMS_ITS | Encounter Summary ---
Author Organization [facility] Address [address] [place] [address] Care Team Providers Care Living Skills Advisor Name Role Phone Cece Arango MD Primary Care Provider +1- [phone] Encounter Details Date Type Department Care Team (Late st Contact Info) Description 01/11/2007 Results Only [facility] conversion [address] [place] [address] Cece Arango MD [address] [place] [phone] Social History Tobacco Use Types Packs/Day Years Used Date Smoking Tobacco: Never Assessed Sex and Gender Information Value Date Recorded Sex Assigned at Not on file Gender Identity Not on file Sexual Orientation Not on file documented as of this encounter Plan of Treatment Not on file documented as of this encounter Procedures Procedure Name Priority Date/Time Associated Diagnosis Comments CYTOPATHOLOGY Routine 01/11/2007 0:00 EST documented in this encounter Results * CYTOPATHOLOGY (01/11/2007 0:00 EST) Pathology Report: CYTOPATHOLOGY REPORT Reports generated via electronic interface contain original data; however they are lacking the format of the original report. Caution should be taken when reading/interpreti ng unformatted reports. Name: ? TRACIE HAYDEN ? Accession #: ? [id number] : ? 1970 (Age: 36) ??F ?Collect Date: ? 01/11/2007 Location: ? [facility] ? Receive Date: ? 01/15/2007 Provider: ?CECE ARANGO MD Copy to: ? Specimen/Source: ?ThinPrep Pap Test, Endocervix, processed on Unsocial ThinPrep Imaging System, with manual evaluation Last Menstrual Period: ? 12/28/06 Previous Gynecologic Pathology: ? ASC-US Other: ? HPVA - HPV testing requested if ASC-US on the current ThinPrep Pap test. ? SPECIMEN ADEQUACY ? Satisfactory for Evaluation - transformation zone component absent GENERAL CATEGORIZATION ? Negative for Intraepithelial Lesion or Malignancy INTERPRETATION ? Shift in eddie present suggestive of bacterial vaginosis. ? Document reviewed and electronically signed by: ? MICHAELA Starr(ASCP) ? Report Date: ??01/17/2007 11:25 End of Report [facility] 01/11/2007 01/15/2007 Cece Arango MD PATHOLOGY ORDERABL ES [facility] [address] [place] [address] documented in this encounter Visit Diagnoses Not on filedocumented in this encounter Care Teams Living Skills Advisor Relationship Specialty Start Date End Date Cece Arango MD [address] [place] [address], [phone] PCP - General 03/24/09 documented as of this encounter
--- OUTSIDE RECORDS SUMMARY | 2024-07-12 00:37 | XMS_ITS | Encounter Summary ---
Author Organization [facility] Address [address] [place] [address] Care Team Providers Care Connection Worker Name Role Phone Cece Herrera MD Primary Care Provider +1- [phone] Encounter Details Date Type Department Care Team (Late st Contact Info) Description 07/27/2010 Results Only [facility] Laboratory Services - [facility] ([facility] [address] [place], [place] [phone] Cece Herrera MD [address] [place] [phone] Social History Tobacco Use Types Packs/Day Years Used Date Smoking Tobacco: Never Assessed Sex and Gender Information Value Date Recorded Sex Assigned at Not on file Gender Identity Not on file Sexual Orientation Not on file documented as of this encounter Plan of Treatment Not on file documented as of this encounter Procedures Procedure Name Priority Date/Time Associated Diagnosis Comments HPV DETECTION, HIGH RISK TYPES Routine 07/27/2010 10:37 EDT CYTOPATHOLOGY Routine 07/27/2010 0:00 EDT documented in this encounter Results * HUMAN PAPILLOMA VIRUS DNA TEST (07/27/2010 10:37 EDT) Specimen Description Cervix, ThinPrep vial [facility] Result Negative for HPV types 16, 18, 31, 33, 35, 39, 45, 51, ??with dysplasiaand some cervical cancers. [facility] Report Status Final 08/04/2010 [facility] 07/27/2010 10:3 7 EDT 08/02/2010 10:37 EDT Cece Herrera MD MICROBIOLOGY - GEN ERAL ORDERABLES [facility] [address] [place] [address] * CYTOPATHOLOGY (07/27/2010 0:00 EDT) Pathology Report: CYTOPATHOLOGY REPORT ? Reports generated via electronic interface contain original data; ? however they are lacking the format of the original report. ? Caution should be taken when reading/interpreti ng unformatted reports. ? Name: ? TRACIE HAYDEN ? Accession #: ? [id number] ? : ? 1970 (Age: 39) ??F ?Collect Date: ? 07/27/2010 ? Location: ? [facility] ? Receive Date: ? 07/29/2010 ? Provider: ?CECE CONCHITA MD ? Copy to: ? Specimen/Source: ?Pap Test, Vagina/Cervix/Endo cervix, ThinPrep Imaging ? System with manual evaluation ? Last Menstrual Period: ? Other: ? HPVDX - HPV testing requested regardless of diagnosis on current ThinPrep Pap ?? test. ? SPECIMEN ADEQUACY ? Satisfactory for Evaluation ? - transformation zone component present ? GENERAL CATEGORIZATION ? Negative for Intraepithelial Lesion or Malignancy ? INTERPRETATION ? Shift in eddie present suggestive of bacterial vaginosis. ? Document reviewed and electronically signed by: ? Portia Mcmullen, SCT(ASCP) ? Report Date: ??07/30/2010 15:11 ? End of Report ? [facility] 07/27/2010 07/29/2010 Cece Herrera MD PATHOLOGY ORDERABL ES [facility] [address] [place] [address] documented in this encounter Visit Diagnoses Not on filedocumented in this encounter Care Teams Connection Worker Relationship Specialty Start Date End Date Cece Herrera MD [address] [place] [phone] PCP - General 03/24/09 documented as of this encounter
--- OUTSIDE RECORDS SUMMARY | 2024-07-12 00:37 | XMS_ITS | Encounter Summary ---
Author Organization [facility] Address [address] [place] [address] Care Team Providers Care Bar Hostess Name Role Phone Cece Herrera MD Primary Care Provider +1- [phone] Encounter Details Date Type Department Care Team (Late st Contact Info) Description 04/08/2020 Lab Requisition [facility] Pathology & Laboratory Medicine - [address] [address] Rashid Schaeffer MD [address] [place] [address] Encounter for other general examination Social History Tobacco Use Types Packs/Day Years Used Date Smoking Tobacco: Never Assessed Sex and Gender Information Value Date Recorded Sex Assigned at Not on file Gender Identity Not on file Sexual Orientation Not on file documented as of this encounter Plan of Treatment Not on file documented as of this encounter Procedures Procedure Name Priority Date/Time Associated Diagnosis Comments SURGICAL PATHOLOGY Today 04/08/2020 8: 17 EDT Encounter for other general examination documented in this encounter Results * SURGICAL PATHOLOGY (04/08/2020 8:17 EDT) Final Diagnosis A. ENDOMETRIUM, CURETTAGE: - Weakly proliferative endometrium with disordered growth pattern and extensive breakdown. - Fragments of endocervical tissue with squamous metaplasia. - Features suggestive of endocervical polyp. 04/10/2020 17:24 EDT [facility] at 1724 Attestation There was significant resident/fellow involvement in the diagnostic evaluation of this case. By the signature below, the attending physician certifies that they have personally conducted a gross and/or microscopic examination of the described specimens and rendered or confirmed the above diagnosis. 04/10/2020 17:24 EDT [facility] at 1724 Clinical History Abnormal uterine bleeding 04/10/2020 17:24 EDT [facility] Gross Description A. Received in formalin labelled with proper patient identification (initials S, I) and endometrial curettings is an aggregate of ratliff-brown soft tissue, blood clot and mucus (2.8 x 2.1 x 0.3 cm). The specimen is entirely submitted in A1 and A2. Dulce Maria Kelvin 04/09/2020 14:57 04/10/2020 17:24 EDT [facility] Resident/Nixon w: Miguel Delgadillo MD 04/10/2020 17:24 EDT [facility] Scanned Images 04/10/2020 17:24 EDT [facility] Tissue ENTIRE ENDOMETRIUM / Unknown 04/08/2020 8:17 EDT 04/08/2020 19:22 EDT Rashid Schaeffer MD PATHOLOGY ORDERABLES [facility] [address] [place] [address] documented in this encounter Visit Diagnoses Diagnosis Encounter for other general examination documented in this encounter Care Teams Bar Hostess Relationship Specialty Start Date End Date Cece Herrera MD [address] [place] [phone] PCP - General 03/24/09 documented as of this encounter
--- OUTSIDE RECORDS SUMMARY | 2024-07-12 00:37 | XMS_ITS | Encounter Summary ---
Author Organization [facility] [place] [address] Care Team Providers Care [place]. Commissioner Name Role Phone Cece Herrera MD Primary Care Provider +1- [phone] Reason for Visit * Reason Onset Date Comments Other 04/21/2011 PLEASE MAIL RX G LASSES TO HOME Encounter Details Date Type Department Care Team (Late st Contact Info) Description 04/21/2011 Tele[place] [address] Fareed Lau OD [facility] [place] [address] Other (PLEASE MAIL RX GLASSES TO HOME) Social History Tobacco Use Types Packs/Day Years Used Date Smoking Tobacco: Never Assessed Sex and Gender Information Value Date Recorded Sex Assigned at Not on file Gender Identity Not on file Sexual Orientation Not on file documented as of this encounter Miscellaneous Notes * Telephone Encounter - Fareed Lau OD - 04/21/2011 6:35 PM EDT rx sent from visit of 02/11/10 PGL documented in this encounter Plan of Treatment Upcoming Encounters Date Type Department Care Team (Late st Contact Info) Description 09/05/2024 9:00 AM EDT Office Visit Internal Medicine at [address] [phone] Gema Oliveira, [facility] [place] [address] documented as of this encounter Visit Diagnoses Not on filedocumented in this encounter Care Teams U.[place]. Commissioner Relationship Specialty Start Date End Date Cece Herrera MD [address] [place] [phone] PCP - General 10/12/10 03/04/14 documented as of this encounter
--- OUTSIDE RECORDS SUMMARY | 2024-07-12 00:37 | XMS_ITS | Encounter Summary ---
Author Organization [facility] Address [address] [place] [address] Care Team Providers Care Manager Clinical Name Role Phone Cece Herrera MD Primary Care Provider +1- [phone] Encounter Details Date Type Department Care Team (Late st Contact Info) Description 05/13/2020 Lab Requisition [facility] Pathology & Laboratory Medicine - [address] [address] Rashid Schaeffer MD [address] [place] [address] Encounter for other general examination Social History [...] Date/Time Associated Diagnosis Comments SURGICAL PATHOLOGY Today 05/13/2020 11 :20 EDT Encounter for other general examination documented in this encounter Results * SURGICAL PATHOLOGY (05/13/2020 11:20 EDT) Final Diagnosis A. OVARY AND FALLOPIAN TUBE, LEFT, SALPINGO-OOPHOREC CALLI: - Ovary: - Cystically dilated follicles. - Adhesed infarcted appendage epiploica. - Fallopian tube: - No specific pathologic features. B. UTERUS, CERVIX, OVARY, RIGHT, AND FALLOPIAN TUBE, RIGHT, TOTAL HYSTERECTOMY AND UNILATERAL SALPINGO-OOPHOREC CALLI: - Endometrium: - Features most consistent with postablative changes with plasma cell infiltrate. - Myometrium: - No specific pathologic features. - Cervix: - Chronic cervicitis. - Serosa: - No specific pathologic features. - Fallopian tube: - Features most consistent with prior ligation. - Ovary: - Hemorrhagic corpus luteum. - Adhesions. 05/20/2020 11:01 [facility] at 1101 Attestation There was significant resident/fellow involvement in the diagnostic evaluation of this case. By the signature below, the attending physician certifies that they have personally conducted a gross and/or microscopic examination of the described specimens and rendered or confirmed the above diagnosis. 05/20/2020 11:01 [facility] at 1101 Clinical History Abnormal uterine bleeding 05/20/2020 11:01 [facility] Gross Description A. Received in formalin labelled with proper patient identification (initials S, I) and left tube and ovary is an intact ovary (3.5 x 2.5 x 2.0 cm) with attached fimbriated fallopian tube (3.0 cm in length x 0.5 cm in diameter). The ovary has a ratliff-white lobulated serosa with a protruding ratliff-yellow 0.3 cm nodule and sectioning reveals multiple simple cysts with smooth linings up to 1.0 cm in maximum dimension. The fallopian tube has red-blue smooth serosa and sectioning reveals an unremarkable cut surface with a pinpoint lumen throughout. Retail Shift Manager sections are submitted as follows: BLOCK MANCERA A1- internet sales representative ovary to include cysts A2- internet sales representative ovary to include ratliff-yellow nodule A3- entire fimbriated end and internet sales representative fallopian tube B. Received in formalin labelled with proper patient identification (initials S, I) and uterus and right ovary is an intact uterus and cervix (60 g, 7.5 cm cervix to fundus x 4.0 cm cornu to cornu x 3.8 cm anterior to posterior) with attached right fallopian tube (3.5 cm in length by 0.6 cm in diameter) and ovary (2.5 x 2.0 x 1.5 cm). The uterine serosa is ratliff-brown and smooth. The endometrium is red-brown and has a thickness of 0.1 cm. The myometrium is ratliff-pink and trabeculated and ranges from 0.6 cm to 2.0 cm in thickness. Sectioning discloses no nodules in the myometrium. The ectocervix is ratliff-white and smooth and the endocervix is ratliff-pink with a herringbone pattern. Sectioning discloses several simple cysts with translucent gelatinous material up to 1.0 cm in maximum dimension. The ovary has a ratliff-white lobulated outer surface and sectioning discloses a 1.0 cm cyst with hemorrhagic contents and otherwise unremarkable cut surface. The fallopian tube is focally disrupted consistent with prior ligation and has red-blue smooth serosa. Sectioning discloses an unremarkable cut surface with a pinpoint lumen throughout. Retail Shift Manager sections are submitted as follows: BLOCK MANCERA B1- entire fimbriated end and internet sales representative fallopian tube B2- internet sales representative ovary to include cyst B3- internet sales representative anterior cervix B4- internet sales representative full thickness anterior endomyometrium B5- internet sales representative posterior cervix B6- internet sales representative full thickness posterior endomyometrium Rommel Ayon DO 05/14/2020 14:17 05/20/2020 11:01 EDT [facility] Resident/Nixon w: Rommel Ayon DO 05/20/2020 11:01 EDT [facility] Scanned Images 05/20/2020 11:01 EDT [facility] Tissue SPECIMEN FROM UTERUS / Unknown 05/13/2020 11:20 EDT 05/13/2020 22:54 EDT Tissue specimen (specimen) UTERINE STRUCTURE / Unknown 05/13/2020 11:20 EDT 05/13/2020 22:54 EDT Rashid Schaeffer MD PATHOLOGY ORDERABLES [facility] [address] [place] [address] documented in this encounter Visit Diagnoses Diagnosis Encounter for other general examination documented in this encounter Care Teams Manager Clinical Relationship Specialty Start Date End Date Cece Herrera MD [address] [place] [phone] PCP - General 03/24/09 documented as of this encounter
--- OUTSIDE RECORDS SUMMARY | 2024-07-12 00:37 | XMS_ITS | Encounter Summary ---
Author Organization [facility] Address [address] [place] [address] Care Team Providers Care Coating Machine Operator Name Role Phone Unavailable Primary Care Provider Unavailabl e Encounter Details Date Type Department Care Team (Late st Contact Info) Description 03/18/2009 Orders Only [facility] ([facility] [address] [place] [address] Cece Arango MD [address] [place] [phone] Social History Tobacco Use Types Packs/Day Years Used Date Smoking Tobacco: Never Assessed Sex and Gender Information Value Date Recorded Sex Assigned at Not on file Gender Identity Not on file Sexual Orientation Not on file documented as of this encounter Plan of Treatment Not on file documented as of this encounter Procedures Procedure Name Priority Date/Time Associated Diagnosis Comments CYTOPATHOLOGY Routine 03/18/2009 0:00 EDT documented in this encounter Results * CYTOPATHOLOGY (03/18/2009 0:00 EDT) Pathology Report: CYTOPATHOLOGY REPORT ? Reports generated via electronic interface contain original data; ? however they are lacking the format of the original report. ? Caution should be taken when reading/interpreti ng unformatted reports. ? Name: ? TRACIE HAYDEN ? Accession #: ? [id number] ? : ? 1970 (Age: 38) ??F ?Collect Date: ? 03/18/2009 ? Location: ? [facility] ? Receive Date: ? 03/23/2009 ? Provider: ?CECE ARANGO MD ? Copy to: ? Specimen/Source: ?Pap Test, Vagina/Cervix/Endo cervix, ThinPrep Imaging ? System with manual evaluation ? Last Menstrual Period: ? Other: ? HPVDX - HPV testing requested regardless of diagnosis on current ThinPrep Pap ?? test. ? SPECIMEN ADEQUACY ? Satisfactory for Evaluation ? - transformation zone component absent ? GENERAL CATEGORIZATION ? Negative for Intraepithelial Lesion or Malignancy ? INTERPRETATION ? Shift in eddie present suggestive of bacterial vaginosis. ? Document reviewed and electronically signed by: ? Mere Patel, CT(ASCP)(IAC) ? Report Date: ??03/24/2009 15:52 ? End of Report ? [facility] 03/18/2009 03/23/2009 Cece Arango MD PATHOLOGY ORDERABL ES [facility] [address] [place] [address] documented in this encounter Visit Diagnoses Not on filedocumented in this encounter
--- OUTSIDE RECORDS SUMMARY | 2024-07-12 00:37 | XMS_ITS | Referral Summary ---
Author Organization [facility] Address [address] [place] [address] Care Team Providers Care Director Industrial Name Role Phone Cece Herrera MD Primary Care Provider +1- [phone] Social History Tobacco Use Types Packs/Day Years Used Date Smoking Tobacco: Never Assessed Interpersonal Safety Answer Date Record ed Physically Hurt Never 06/21/2020 Verbally Threaten Not on file 06/21/2020 Sex and Gender Information Value Date Recorded Sex Assigned at Not on file Gender Identity Not on file Sexual Orientation Not on file Plan of Treatment Not on file Care Teams Director Industrial Relationship Specialty Start Date End Date Cece Herrera MD [address] [place] [address] [place] [phone] PCP - General 03/24/09
--- NOTE | 2024-07-12 07:28 | DI.CT_ITS ---
Exam(s) CT CHEST WO EXAM: CT CHEST WO CLINICAL HISTORY: F/U PULMONARY NODULE,R91.1 TECHNIQUE: Imaging Protocol: Axial computed tomography images with coronal and sagittal reformatted images were created and reviewed CONTRAST MATERIAL: Intravenous: Omnipaque 350 Contrast volume:structured data ml. COMPARISON: CT CT ABDOMEN PELVIS WO from 03/13/[address] ABDOMEN PELVIS W from 04/21/2020 FINDINGS: Pulmonary parenchyma: No consolidation. No dominant measurable mass. Multiple scattered circumscribe d nodules both upper and lower lobes. The lower lobe lesions are unchanged in size from 2020. No grady spicious pulmonary nodules. Tracheobronchial tree: No bronchiectasis or mucous plugging. Mediastinum and Maricarmen: No dominant adenopathy or fluid collection. Pleura: No effusion. No pneumothorax. Heart: The heart is not dilated. Minimal coronary artery calcifications are seen. Aorta: Thoracic aorta non-dilated. Mild atherosclerotic changes. Pulmonary arteries: No gross evidence of emboli. Upper abdomen: No acute findings. Bones: Degenerative changes in the spine. Soft tissues: Unremarkable. IMPRESSION: Stable small scattered bilateral pulmonary nodules. Unless the patient is at high risk for developin g lung cancer, no further follow-up is recommended. RADIATION DOSE DELIVERED: Total DLP DATA REPOSITORY: All CT scans at this facility are submitted to the National Radiology Data Registry (NRDR) Dose Index Registry (DIR) with the [employer] ([employer]). RADIATION OPTIMIZATION: All CT scans at this facility use at least one of these dose optimization te chniques: automated exposure control; mA and/or kV adjustment per patient size (includes targeted exa ms where dose is matched to clinical indication); or iterative reconstruction.
== END 2024-07-12 00:39 ==
PROVIDERS: PCP Student in an Organized Health Care Education/Training Program; Visit Provider Student in an Organized Health Care Education/Training Program
DX: R91.1 Solitary pulmonary nodule (principal)
CPT/HCPCS: 71250; 77063; 77067

== ENCOUNTER 2024-12-17 06:49 | Emergency (ER) | payer MEDICAID, SELFPAY ==
[2024-12-17] VITALS (19 sets, daily range): BP systolic 148–168; BP diastolic 96–109; PULSE 78–113; RESP 2–24; TEMP 36.8; O2SAT 94–99
[2024-12-17 07:31] LABS: Abs Immature Grans 0.12 10^3/uL (0.0-0.06); Absolute Basophil Count 0.04 10^3/uL (0.0-0.2); Absolute Eosinophil Count 0.14 10^3/uL (0.0-0.7); Absolute Lymphocyte Count 2.33 10^3/uL (1.2-3.4); Absolute Monocyte Count 1.17 10^3/uL (0.1-0.8); Absolute Neutrophil Count 8.77 10^3/uL (1.2-6.7); Basophils % 0.3 %; Eosinophils % 1.1 %; HCT 42.8 % (36.0-46.0); Lymphocytes % 18.5 %; MCH 28.8 pg (27.0-33.0); MCHC 32.7 % (32.0-36.0); MCV 88 fL (80-95); MPV 10.2 fL (8.0-11.0); Monocytes % 9.3 %; Neutrophils % 69.8 %; Platelet Count 202 10^3/uL (130-400); RBC 4.86 10^6/uL (3.93-5.22); RDW 12.3 % (11.7-14.6); RDW-SD 39.8 fL; WBC 12.57 10^3/uL (4.4-10.8)
--- NOTE | 2024-12-17 07:38 | DI.RAD_ITS ---
Exam(s) XR CHEST 2V PA LATERAL EXAM: XR CHEST 2V PA LATERAL CLINICAL HISTORY: SOB/Cough TECHNIQUE: 2D digital imaging was performed of the chest. Two images were obtained. PA and lateral views were obtained. COMPARISON: CR XR CHEST 2V PA LATERAL from 03/04/2019 FINDINGS: MEDIASTINUM: Normal. HEART: Normal. PULMONARY VASCULATURE: Normal. LUNGS: Clear. PLEURAL SPACE: No pleural effusion or pneumothorax. BONE:Within normal limits for the patient's age. There is again seen a sclerotic intramedullary nishant on in the proximal metaphysis of the left humerus. 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 OTHER FINDINGS:Normal. IMPRESSION: No acute pulmonary findings. DATA REPOSITORY: RADIATION DOSE DELIVERED:
[2024-12-17] MEDS: Albuterol/Ipratropium 3 ML UPD VIAL UPD (07:42)
[2024-12-17] MEDS: MAGNESIUM SULFATE 2 GM/50 ML BAG IV_INF (07:44)
--- NOTE | 2024-12-17 07:47 | ED.GENADUL_ITS ---
Discharge Plan Disposition Patient Disposition: Home Condition: Stable Discharge Details Clinical Impression: Reactive airway disease with acute exacerbation, Viral upper respiratory infection Primary Care Provider: Marguerite Riley ED Provider: Sabrina Olmedo Home Meds and New Rx's Prescriptions: New prednisone 20 mg tablet 40 mg PO DAILY 3 Days Qty: 6 0RF Rx Instructions: Start 12/18/2024 azithromycin 250 mg tablet 250 mg PO DAILY 4 Days Qty: 4 0RF Rx Instructions: start on day 2 of therapy, 12/18/2024 No Action omeprazole 40 mg Capsule,Delayed Release(Dr/Ec) 1 tab PO DAILY metformin 1,000 mg Tablet 1,000 mg PO DAILY Rx Instructions: Takes with dinner lisinopril 20 mg tablet 40 mg PO DAILY cyclobenzaprine 10 mg tablet 10 mg PO TID PRN hydrochlorothiazide 25 mg Tablet 25 mg PO DAILY atorvastatin 40 mg tablet Patient Comments: TAKE ONE TABLET BY MOUTH EVERY DAY acetaminophen 325 mg tablet Patient Comments: TAKE 2 TABLETS BY MOUTH EVERY 4 HOURS NEEDED FOR PAIN ipratropium-albuterol 0.5 mg-3 mg(2.5 mg base)/3 mL solution for nebulization INHALATION Patient Comments: INHALE THE CONTENTS OF ONE VIAL VIA NEBULIZER EVERY 4 HOURS prazosin 1 mg capsule Patient Comments: TAKE ONE CAPSULE BY MOUTH EVERY EVENING pramipexole 0.5 mg tablet Patient Comments: TAKE ONE TABLET BY MOUTH IN THE EVENING ondansetron 4 mg tablet,disintegrating Patient Comments: DISSOLVE ONE TABLET ON THE TONGUE EVERY 8 HOURS NEEDED FOR NAUSEA amoxicillin-pot clavulanate 875-125 mg tablet Patient Comments: TAKE ONE TABLET BY MOUTH TWICE A DAY FOR 5 DAYS (DME) [facility] Spacer MISCELLANEOUS Patient Comments: USE DIRECTED WITH INHALER pregabalin 25 mg capsule Patient Comments: TAKE ONE CAPSULE BY MOUTH TWICE A DAY budesonide-formoterol [Symbicort] 80-4.5 mcg/actuation HFA aerosol inhaler INHALATION Patient Comments: INHALE TWO PUFFS BY MOUTH TWICE A DAY Trulicity 0.75 mg/0.5 mL pen injector SUBCUT Patient Comments: INJECT 0.75 MG (ONE PEN) SUBCUTANEOUSLY ONCE WEEKLY albuterol sulfate [ProAir HFA] 90 mcg/actuation Hfa Aerosol Inhaler 2 puff INHALATION Q6H PRN Trintellix 20 mg tablet 20 mg PO DAILY Patient Comments: TAKE 1 TABLET BY MOUTH DAILY benzonatate [Tessalon Perles] 100 mg capsule 100 mg PO TID PRN (Reason: cough) Qty: 14 0RF Discharge Instructions Instructions: Asthma, Adult ED Additional Instructions: You were seen in the ED for shortness of breath due to your asthma and likely an upper respiratory virus. You were given medications for your breathing and started on a second antibiotic. Please take this and your augmentin until they are gone, even if you start to feel better. You need to continue the prednisone for 3 more days. Please follow up with your primary care provider to discuss next steps, and thank you for allowing us to be part of your care. Discharge Data Discharge Date/Time-TO BE ENTERED AT DEPARTURE: 12/17/24 10:07 HPI General Mode of arrival: ambulatory . Date/Time Provider Initiated Documentation: 12/17/24 07:02 . Limitations to Documentation: no limitations . Information obtained by: patient, family and old records reviewed . HPI Narrative: HPI: This is a 54-year-old female patient with a past medical history significant for reactive airway disease, presenting for evaluation of 2 weeks of gradually worsening cough, shortness of breath, and runny nose. The patient reports that she was seen by her provider on Monday, had one of her home controller inhaler switched, and was started on a course of Augmentin and prednisone. She has been taking these medications for 2 days but presented today because her symptoms were not improving. The patient reports that she has been using her albuterol inhaler and her nebulizer without significant improvement in her symptoms. Nobody else has been sick with similar symptoms in the home, she has not been measuring a fever. She states that this feels similar to when she had RSV last year. States that she is not experiencing chest pain at this time. No personal history of thromboembolic disease, tenderness or swelling to her legs Exam: Gen: Awake and alert, in no apparent distress HEENT: Non-icteric sclera, no conjunctival injection Neck: Supple Lungs: No apparent respiratory distress, normal respiratory effort. Lung sounds with diffuse expiratory wheezes throughout CV: Appears well perfused, heart with tachycardic rate but regular rhythm, strong distal pulses Abdomen: Non-distended, soft, nontender MSK: Moves 4 extremities without apparent limitation in ROM. No unilateral calf swelling or tenderness. Skin: Visualized skin without rashes, cyanosis. Neuro: Normal Gait, no obvious focal deficits or facial asymmetry. Speaks in full, clear sentences. Psych: Appropriate for situation. MDM: This is a 54-year-old female patient with a history of reactive airway disease exacerbation presenting for evaluation of worsening shortness of breath. My history and physical examination is most concerning for reactive airway disease exacerbation given the diffuse wheezing, with no evidence for hypoxic respiratory failure. Differential also included but is not limited to viral upper respiratory infection, pneumonia, bronchitis. The patient has no evidence on my physical examination for fluid overload to suggest pulmonary edema or pleural effusion. I did consider pulmonary embolism, though the patient has no history of DVT, and her diffuse wheezing is less typical of this disease process. She has no chest pain to suggest ACS or arrhythmia. I provided the patient with a duo nebulizer, as well as 2 g of magnesium. She has already taken her 40 mg of prednisone today. We will obtain laboratory studies to include CBC, CMP, magnesium, troponin, BNP, and Fluvid. I will obtain a chest x-ray. ED Course: I reviewed the patient's laboratory studies, which show a leukocytosis to 12.5 but no anemia or thrombocytopenia. Chemistry panel with out significant electrolyte derangements, new kidney dysfunction or evidence for liver disease. BNP is only slightly elevated to 583, troponin was negative. COVID and influenza testing negative. Independently interpreted the patient's chest x-ray which shows no acute abnormalities to explain her symptoms such as pneumonia or pleural effusion. I did provide the patient with a second albuterol nebulizer and a dose of azithromycin for atypical coverage in the setting of reactive airway disease exacerbation. I recommended that she continue dual coverage with her Augmentin, and provided her with enough prednisone to complete a 5-day burst. The patient is desiring of discharge home and at this time she has had improvement in her air movement after reactive airway disease treatment, is oxygenating well, and plans to follow-up with her primary care provider in the next few days for reassessment. At this time, the patient has had a full medical evaluation and is safe for discharge to home. They are hemodynamically stable, ambulatory, and tolerating PO. They are understanding of the follow-up plan and return precautions. They left our facility without incident. Sabrina Olmedo MD Related Data Home Medications ?Medication ?Instructions ?Recorded ?Confirmed metformin 1,000 mg tablet 1,000 mg PO DAILY 11/10/18 12/17/24 omeprazole 40 mg capsule,delayed 1 tab PO DAILY 11/10/18 12/17/24 release albuterol sulfate 90 mcg/actuation 2 puff inhalation Q6H PRN 04/03/20 12/17/24 aerosol inhaler (ProAir HFA) cyclobenzaprine 10 mg tablet 10 mg PO TID PRN 04/21/20 12/17/24 hydrochlorothiazide 25 mg tablet 25 mg PO DAILY 04/21/20 12/17/24 lisinopril 20 mg tablet 40 mg PO DAILY 05/27/20 12/17/24 benzonatate 100 mg capsule 100 mg PO TID PRN cough #14 caps 07/11/21 12/17/24 (Sunita Dunn) vortioxetine 20 mg tablet 20 mg PO DAILY 07/11/21 12/17/24 (Trintellix) acetaminophen 325 mg tablet mg 12/17/24 amoxicillin 875 mg-potassium tab 12/17/24 clavulanate 125 mg tablet atorvastatin 40 mg tablet mg 12/17/24 azithromycin 250 mg tablet 250 mg PO DAILY 4 days #4 tabs 12/17/24 budesonide-formoterol HFA 80 inhalation 12/17/24 mcg-4.5 mcg/actuation aerosol inhaler (Symbicort) dulaglutide 0.75 mg/0.5 mL mg subcut 12/17/24 subcutaneous pen injector (Trulicity) inhalational spacing device 12/17/24 12/17/24 ([facility] spacer) ipratropium 0.5 mg-albuterol 3 mg ml inhalation 12/17/24 (2.5 mg base)/3 mL nebulization soln ondansetron 4 mg disintegrating mg 12/17/24 tablet pramipexole 0.5 mg tablet mg 12/17/24 prazosin 1 mg capsule mg 12/17/24 prednisone 20 mg tablet 40 mg (2 x 20 mg) PO DAILY 3 days 12/17/24 #6 tabs pregabalin 25 mg capsule mg 12/17/24 Previous Rx's ?Medication ?Instructions ?Recorded benzonatate 100 mg capsule 100 mg PO TID PRN cough #14 caps 07/11/21 (Sunita Dunn) azithromycin 250 mg tablet 250 mg PO DAILY 4 days #4 tabs 12/17/24 prednisone 20 mg tablet 40 mg (2 x 20 mg) PO DAILY 3 days 12/17/24 #6 tabs Allergies Allergy/AdvReac Type Severity Reaction Status Date / Time sulfamethoxazole (From Allergy Severe Anaphylaxsi Verified 12/17/24 06:59 Bactrim) s trimethoprim (From Bactrim) Allergy Severe Anaphylaxsi Verified 12/17/24 06:59 s naproxen Allergy Intermediate Skin Rash Verified 12/17/24 06:59 cephalexin (From Keflex) AdvReac Severe heart Verified 12/17/24 06:59 racing meloxicam AdvReac Mild Nausea Verified 12/17/24 06:59 General Stated Complaint: RespSymp JAVIER: 3 Course Vital Signs Vital signs: Vital Signs Temperature 36.8 C 12/17/24 07:06 Pulse 110 H 12/17/24 07:06 Respiratory Rate 24 12/17/24 07:06 Blood Pressure 168/109 H 12/17/24 07:06 Pulse Oximetry 96 12/17/24 07:06 Temperature 36.8 C 12/17/24 07:06 Pulse 102 H 12/17/24 07:16 Respiratory Rate 24 12/17/24 07:06 Respiratory Effort Short of Breath, Incrsd Work of Breathing 12/17/24 07:11 Blood Pressure 148/96 H 12/17/24 07:16 Blood Pressure Mean 108 12/17/24 07:16 Pulse Oximetry 96 12/17/24 07:16 Oxygen Delivery Method Room Air 12/17/24 07:06 Oxygen Flow Rate 0 12/17/24 07:06 Pain Level 0 12/17/24 07:06 Lab/Test Results Lab/Test Results: Laboratory Tests Range/Units 12/17/24 07:22 WBC (4.4-10.8) 10^3/uL 12.57 H RBC (3.93-5.22) 10^6/uL 4.86 Hgb (11.2-15.7) g/dL 14.0 Hct (36.0-46.0) % 42.8 MCV (80-95) fL 88 MCH (27.0-33.0) pg 28.8 MCHC (32.0-36.0) % 32.7 RDW (11.7-14.6) % 12.3 Plt Count (130-400) 10^3/uL 202 MPV (8.0-11.0) fL 10.2 Immature Gran % % 1.0 Neutrophils % % 69.8 Lymphocytes % % 18.5 Monocytes % % 9.3 Eosinophils % % 1.1 Basophils % % 0.3 Nucleated RBC % (0.0-0.3) % 0.0 Absolute Neutrophils (1.2-6.7) 10^3/uL 8.77 H Absolute Lymphocytes (1.2-3.4) 10^3/uL 2.33 Absolute Monocytes (0.1-0.8) 10^3/uL 1.17 H Absolute Eosinophils (0.0-0.7) 10^3/uL 0.14 Absolute Basophils (0.0-0.2) 10^3/uL 0.04 Medical Decision Making Quality:SDOH Health Related Social Needs: 2 No Data to Display PFSH All Active Problems (Updated 12/17/24 @ 09:53 by Sabrina Olmedo MD) Viral upper respiratory infection (Acute) Reactive airway disease with acute exacerbation (Acute) Smoker (Acute) Breast cancer screening (Acute) Well woman exam with routine gynecological exam (Acute) Laryngitis (Acute) Cough (Acute) S/P laparoscopic assisted vaginal hysterectomy (LAVH) (Acute) Pelvic pain (Acute) Medical History (Updated 12/17/24 @ 09:53 by Sabrina Olmedo MD) Hx of chest pain pt. states this is anxiety related and has had it worked up thru [facility] [place] History of prediabetes History of high blood pressure Hx of gastroesophageal reflux (GERD) History of asthma History of degenerative joint disease Spine Surgical History Hx of bladder repair surgery Bladder sling at [facility] [place] Hx of section x2 Social History Smoking/Tobacco Use Status: Current every day Tobacco Type: cigarettes Smoking risk assessment performed?: Yes Alcohol Intake: current Alcohol Intake frequency: holidays/special occasions only Alcohol type: hard liquor Drug use: Never Substance use type: does not use Housing: house current occupation: Patient does not work she is disabled Do you feel safe at home: Yes Do you feel safe in your relationship?: Yes History History 3 Para 3 Hx # Term Pregnancies 3 Multiple births Hx # Pregnancies Ectopic pregnancies AB induced Hx Number of Living Children AB spontaneous
[2024-12-17 08:02] LABS: ALT 27 U/L (14-59); AST 11 U/L (15-37); Albumin 3.9 g/dL (3.4-5.0); Alkaline Phosphatase 56 U/L (46-116); Anion Gap 7.9 mmol/L (3-11); BUN 20 mg/dL (7-18); Bilirubin, Total 0.33 mg/dL (0.2-1.0); CO2 30.1 mmol/L (21.0-32.0); CREATININE 1.2 mg/dL (0.55-1.02); Calcium 9.3 mg/dL (8.5-10.1); Chloride 103 mmol/L (98-107); Estimated GFR 54.13 (mL/min/1.73m2); Glucose 189 mg/dL (74-106); Magnesium 1.7 mg/dL (1.8-2.4); NT-proBNP 583 pg/mL (<300); Potassium 3.7 mmol/L (3.5-5.1); Sodium 141 mmol/L (136-145); Total Protein 7.5 g/dL (6.4-8.2); Troponin I 6 ng/L (<or=51)
[2024-12-17 08:09] LABS: COVID-19 PCR Negative (Negative); Influenza A PCR Negative (Negative); Influenza B PCR Negative (Negative); RSV PCR Negative (Negative)
[2024-12-17 08:19] LABS: Source Nasopharynx
--- NOTE | 2024-12-17 08:46 | DI.VRAD_ITS ---
PROCEDURE INFORMATION: Exam: XR Chest Exam date and time: 12/17/2024 7:33 AM Age: 54 years old Clinical indication: Patient HX: Cough x 2 weeks. TECHNIQUE: Imaging protocol: Radiologic exam of the chest. Views: 2 views. COMPARISON: 1. CT CHEST WO 07/12/2024 7:24 AM 2. CR XR CHEST 2V PA LATERAL 03/04/2019 5:44 PM FINDINGS: Lungs: No focal consolidation. Bilateral lung nodules seen on prior CT are not visualized radiographically. Pleural spaces: No pneumothorax or pleural effusion. Heart/Mediastinum: Heart is not enlarged. Bones/joints: Left proximal humerus intramedullary sclerotic lesion, incompletely imaged, similar to prior imaging, possible enchondroma or bone infarct. IMPRESSION: No focal consolidation. Dictated and Authenticated by: Talita Palomino MD. Orderin [facility] Jay Bennett MD
[2024-12-17] MEDS: Azithromycin 250 MG TAB 500 MG PO (08:50)
[2024-12-17] MEDS: Albuterol 2.5 MG/3 ML INH SOLN VIAL 5 MG UPD (08:50)
== END 2024-12-17 10:07 | disposition home or self-care (01) ==
PROVIDERS: Emergency Provider Emergency Medicine; PCP Student in an Organized Health Care Education/Training Program
DX: J45.901 Unspecified asthma with (acute) exacerbation (principal); J06.9 Acute upper respiratory infection, unspecified; B97.89 Other viral agents as the cause of diseases classified elsewhere; I10 Essential (primary) hypertension
CPT/HCPCS: 36415; 80053; 87637; 96374; 99285; 71046; 83735; 83880; 84484; 85025; 99284; J3475; J7613; J7620

== ENCOUNTER 2025-03-28 15:31 | Emergency (ER) | payer MEDICAID, SELFPAY ==
[2025-03-28 15:35] VITALS: BP 193/105; PULSE 109; RESP 18; TEMP 36.6; O2SAT 98
--- NOTE | 2025-03-28 15:45 | DI.RAD_ITS ---
Exam(s) XR WRIST LT COMPLETE EXAM: XR WRIST LT COMPLETE CLINICAL HISTORY: pain and swelling dorsal aspect, no trauma. TECHNIQUE: 2D digital imaging was performed. Three views. COMPARISON: No exams were available for comparison FINDINGS: BONES: No acute fracture is present. No bony destructive lesion is seen. JOINTS: The carpal bones are normally aligned. No significant degenerative changes. SOFT TISSUE: Normal. IMPRESSION: Unremarkable radiographs of the left wrist. DATA REPOSITORY: RADIATION DOSE DELIVERED:
[2025-03-28 18:00] VITALS: BP 148/91; PULSE 98; RESP 18; O2SAT 99
--- NOTE | 2025-03-28 18:09 | W.ED.GENAD ---
Discharge Plan Disposition Patient Disposition: Home Discharge Details Clinical Impression: Left wrist tendinitis Primary Care Provider: Gema Oliveira ED Provider: Kennedi Becker Home Meds and New Rx's Prescriptions: Continued omeprazole 40 mg Capsule,Delayed Release(Dr/Ec) 1 tab PO DAILY metformin 1,000 mg Tablet 1,000 mg PO DAILY Rx Instructions: Takes with dinner lisinopril 20 mg tablet 40 mg PO DAILY cyclobenzaprine 10 mg tablet 10 mg PO TID PRN hydrochlorothiazide 25 mg Tablet 25 mg PO DAILY acetaminophen 325 mg tablet 325 mg PO Q6H PRN Patient Comments: TAKE 2 TABLETS BY MOUTH EVERY 4 HOURS NEEDED FOR PAIN ipratropium-albuterol 0.5 mg-3 mg(2.5 mg base)/3 mL solution for nebulization 2.5 ml INHALATION Q4H PRN Patient Comments: INHALE THE CONTENTS OF ONE VIAL VIA NEBULIZER EVERY 4 HOURS prazosin 1 mg capsule 1 mg PO DAILY Patient Comments: TAKE ONE CAPSULE BY MOUTH EVERY EVENING pramipexole 0.5 mg tablet 2.5 mg PO ONCE Patient Comments: TAKE ONE TABLET BY MOUTH IN THE EVENING ondansetron 4 mg tablet,disintegrating 4 mg PO Q8H PRN Patient Comments: DISSOLVE ONE TABLET ON THE TONGUE EVERY 8 HOURS NEEDED FOR NAUSEA (DME) [facility] Spacer MISCELLANEOUS Patient Comments: USE DIRECTED WITH INHALER pregabalin 25 mg capsule 25 mg PO DAILY Patient Comments: TAKE ONE CAPSULE BY MOUTH TWICE A DAY budesonide-formoterol [Symbicort] 80-4.5 mcg/actuation HFA aerosol inhaler 1 puff INHALATION Q12H Patient Comments: INHALE TWO PUFFS BY MOUTH TWICE A DAY Trulicity 0.75 mg/0.5 mL pen injector 0.75 mg SUBCUT ONCE Patient Comments: INJECT 0.75 MG (ONE PEN) SUBCUTANEOUSLY ONCE WEEKLY albuterol sulfate [ProAir HFA] 90 mcg/actuation Hfa Aerosol Inhaler 2 puff INHALATION Q6H PRN Trintellix 20 mg tablet 20 mg PO DAILY Patient Comments: TAKE 1 TABLET BY MOUTH DAILY benzonatate [Tessalon Perles] 100 mg capsule 100 mg PO TID PRN (Reason: cough) Qty: 14 0RF Discharge Instructions Instructions: Tendinopathy (DC) Additional Instructions: take tylenol for pain control apply motrin topically wear your splint for one week recheck in one week with pcp return earlier with new or worsening complaints refrain from repetitive motion Referrals: Gema Oliveira [Primary Care Provider] - 1 week HPI General Date/Time Provider Initiated Documentation: 03/28/25 15:43. HPI Narrative: 54-year-old female with abrupt onset of left wrist pain and swelling at 0300 hours. Pain worsened throughout the day, exacerbated by dorsiflexion. No prior history of similar pain. No chest pain or shortness of breath. Related Data Home Medications ?Medication ?Instructions ?Recorded ?Confirmed metformin 1,000 mg tablet 1,000 mg PO DAILY 11/10/18 03/28/25 omeprazole 40 mg capsule,delayed 1 tab PO DAILY 11/10/18 03/28/25 release albuterol sulfate 90 mcg/actuation 2 puff inhalation Q6H PRN 04/03/20 03/28/25 aerosol inhaler (ProAir HFA) cyclobenzaprine 10 mg tablet 10 mg PO TID PRN 04/21/20 03/28/25 hydrochlorothiazide 25 mg tablet 25 mg PO DAILY 04/21/20 03/28/25 lisinopril 20 mg tablet 40 mg PO DAILY 05/27/20 03/28/25 benzonatate 100 mg capsule 100 mg PO TID PRN cough #14 caps 07/11/21 03/28/25 (Tessalon Perles) vortioxetine 20 mg tablet 20 mg PO DAILY 07/11/21 03/28/25 (Trintellix) acetaminophen 325 mg tablet 325 mg PO Q6H PRN 12/17/24 03/28/25 budesonide-formoterol HFA 80 1 puff inhalation Q12H 12/17/24 03/28/25 mcg-4.5 mcg/actuation aerosol inhaler (Symbicort) dulaglutide 0.75 mg/0.5 mL 0.75 mg subcut ONCE 12/17/24 03/28/25 subcutaneous pen injector (Trulicity) inhalational spacing device 12/17/24 03/28/25 ([facility] spacer) ipratropium 0.5 mg-albuterol 3 mg 2.5 ml inhalation Q4H PRN 12/17/24 03/28/25 (2.5 mg base)/3 mL nebulization soln ondansetron 4 mg disintegrating 4 mg PO Q8H PRN 12/17/24 03/28/25 tablet pramipexole 0.5 mg tablet 2.5 mg PO ONCE 12/17/24 03/28/25 prazosin 1 mg capsule 1 mg PO DAILY 12/17/24 03/28/25 pregabalin 25 mg capsule 25 mg PO DAILY 12/17/24 03/28/25 Previous Rx's ?Medication ?Instructions ?Recorded benzonatate 100 mg capsule 100 mg PO TID PRN cough #14 caps 07/11/21 (Sunita Dunn) Allergies Allergy/AdvReac Type Severity Reaction Status Date / Time sulfamethoxazole (From Allergy Severe Anaphylaxsi Verified 03/28/25 15:39 Bactrim) s trimethoprim (From Bactrim) Allergy Severe Anaphylaxsi Verified 03/28/25 15:39 s naproxen Allergy Intermediate Skin Rash Verified 03/28/25 15:39 cephalexin (From Keflex) AdvReac Severe heart Verified 03/28/25 15:39 racing meloxicam AdvReac Mild Nausea Verified 03/28/25 15:39 General Stated Complaint: Orthopedic JAVIER: 4 Exam Narrative Exam Narrative: General Appearance: Alert and oriented. Vital signs: Within normal limits. HEENT: Within normal limits. Respiratory: Within normal limits. Back, Musculoskeletal: No elbow or forearm tenderness. Extremities: Wrist swelling, no erythema. Strength and sensation intact distally. Diminished dorsiflexion. Skin: Warm and dry, no rash. Neurological: Neurovascularly intact. Course Vital Signs Vital signs: Vital Signs Temperature 36.6 C 03/28/25 15:35 Pulse 109 H 03/28/25 15:35 Respiratory Rate 18 03/28/25 15:35 Blood Pressure 193/105 H 03/28/25 15:35 Pulse Oximetry 98 03/28/25 15:35 Temperature 36.6 C 03/28/25 15:35 Temperature Source Oral 03/28/25 15:35 Pulse 98 H 03/28/25 18:00 Respiratory Rate 18 03/28/25 18:00 Blood Pressure 148/91 H 03/28/25 18:00 Blood Pressure Mean 110 03/28/25 18:00 Blood Pressure Position Sitting 03/28/25 15:35 Pulse Oximetry 99 03/28/25 18:00 Oxygen Delivery Method Room Air 03/28/25 15:35 Oxygen Flow Rate 0 03/28/25 15:35 Pain Level 5 03/28/25 15:35 Medical Decision Making Results: Radiology interpretation of my review x-rays of the left wrist show no acute pathology. Initial Assessment: 54-year-old female with abrupt onset of left wrist pain and swelling starting at 3 AM, exacerbated by dorsiflexion. Differential Diagnosis: - Low suspicion for septic arthritis: afebrile, nontoxic, no erythema, no history of i.v. drug use. - Low suspicion for gout: no history of gout, gradual onset, no erythema. ED Course: - X-rays ordered and interpreted by radiology and reviewed by me: no evidence of acute pathology to left wrist. - Splint applied. - Encouraged Tylenol as needed for pain and topical Voltaren gel. - Return precautions reviewed and patient expressed understanding. Final Assessment: Left wrist pain and swelling with no acute pathology on x-ray. Splint applied, pain management with Tylenol and Voltaren gel, and follow-up with primary care physician. Clinical Impression: - Left wrist pain and swelling. Disposition: - Follow-Up: Recheck in 1 week encouraged. MDM Components Evaluation: - Number of Differential Diagnoses or Management Options: septic arthritis, gout. - Amount and Complexity of Data Reviewed: x-rays. - Risk of Complication and Morbidity or Mortality: Low risk based on clinical presentation and diagnostic findings. Quality:[facility] Health Related Social Needs: No Data to Display PFSH All Active Problems (Updated 03/28/25 @ 17:16 by HERNANDEZ Medrano) Left wrist tendinitis (Acute) Smoker (Acute) Breast cancer screening (Acute) Well woman exam with routine gynecological exam (Acute) Laryngitis (Acute) Cough (Acute) S/P laparoscopic assisted vaginal hysterectomy (LAVH) (Acute) Pelvic pain (Acute) Medical History (Updated 03/28/25 @ 17:16 by HERNANDEZ Medrano) Hx of chest pain pt. states this is anxiety related and has had it worked up thru [facility] [place] History of prediabetes History of high blood pressure Hx of gastroesophageal reflux (GERD) History of asthma History of degenerative joint disease Spine Surgical History Hx of bladder repair surgery Bladder sling at [facility] [place] Hx of section x2 Social History Smoking/Tobacco Use Status: Current every day Tobacco Type: cigarettes Smoking risk assessment performed?: Yes Alcohol Intake: current Alcohol Intake frequency: holidays/special occasions only Alcohol type: hard liquor Drug use: Never Substance use type: does not use Housing: house current occupation: Patient does not work she is disabled Do you feel safe at home: Yes Do you feel safe in your relationship?: Yes History History 3 Para 3 Hx # Term Pregnancies 3 Multiple births Hx # Pregnancies Ectopic pregnancies AB induced Hx Number of Living Children AB spontaneous
== END 2025-03-28 17:59 | disposition home or self-care (01) ==
LOC: ER 18:07
PROVIDERS: Emergency Provider Physician Assistant; PCP Student in an Organized Health Care Education/Training Program
DX: M67.834 Other specified disorders of tendon, left wrist (principal)
CPT/HCPCS: 99283 ×2; 29125; 73110

== ENCOUNTER 2025-07-02 15:20 | Outpatient (CLI) | payer MEDICAID, SELFPAY ==
--- NOTE | 2025-07-02 07:45 | DI.MRI_ITS ---
Exam(s) MR UPPER JOINT LT WO EXAM: MR UPPER JOINT LT WO CLINICAL HISTORY: LT WRIST PAIN,[id number]. TECHNIQUE: Multiplanar multisequence MRI was performed. COMPARISON: None. FINDINGS: BONES: There is no fracture or contusion pattern. Mild marrow edema and cystic changes are seen in the proximal lunate. There is also mild hyperintense T2 signal seen in the capitate. JOINTS: The radiocarpal joint is unremarkable. The carpal joints are unremarkable. There is a small effusion in the distal radial ulnar joint. There is a small amount of fluid adjacent to or within the pisotriquetral joint. A ganglion cyst should be considered. TENDONS: Flexors: Unremarkable. Extensors: There is intermediate signal seen of the extensor carpi ulnaris tendon with minimal adjacent T2 hyperintensity. This may represent a tenosynovitis. Please correlate with the patient's site of pain. MUSCLES: Unremarkable. MEDIAN NERVE: Unremarkable on this noncontrast examination. ULNAR NERVE: Unremarkable on this noncontrast examination. SOFT TISSUES: There is a 1.0 transverse by 0.5 AP by 1.5 craniocaudad fluid collection in the lateral wrist anteriorly adjacent to the radiocarpal joint. This may represent a ganglion cyst. LIGAMENTS: Unremarkable. TRIANGULAR FIBROCARTILAGE: Unremarkable. OTHER: IMPRESSION: 1. 1.0 x 0.5 x 1.5 cm fluid collection in the lateral wrist anterior to the radiocarpal joint which may represent a ganglion cyst. 2. Reactive changes seen in the proximal lunate. This may reflect early degenerative changes or possibly avascular necrosis. 3. Question of a tenosynovitis involving the extensor carpi ulnaris tendon. 4. Small effusion in the distal radial ulnar joint. DATA REPOSITORY:
== END 2025-07-02 15:40 ==
LOC: DI 15:21
PROVIDERS: PCP Student in an Organized Health Care Education/Training Program; Visit Provider Student in an Organized Health Care Education/Training Program
DX: M25.532 Pain in left wrist (principal)
CPT/HCPCS: 73221

== ENCOUNTER 2025-07-18 00:38 | Outpatient (CLI) | payer MEDICAID, SELFPAY ==
--- NOTE | 2025-07-18 | DI.CT_ITS ---
Exam(s) CT CHEST WO EXAM: CT CHEST WO CLINICAL HISTORY: hx of tobacco use Z87.891 SOB. pulm nodes, FHX of LC reval for growth. TECHNIQUE: Imaging protocol: Axial computed tomography images were obtained and coronal and sagittal reformatted images were created and reviewed. Lung Computer Aided Detection (CAD) was utilized. COMPARISON: CT CT CHEST WO from 07/12/2024 FINDINGS: Tracheobronchial tree: Patent where visualized. No bronchiectasis is present. Pulmonary parenchyma: No consolidation or dominant measurable mass. There are bilateral pulmonary nodules which are stable. No new pulmonary nodules are present. The largest on the right measures 4 mm (series 2, image 102). The largest on the left measures 5 mm (series 2, image 110). Mediastinum and Maricarmen: No dominant adenopathy or fluid collection. The esophagus is unremarkable. Thyroid gland: Unremarkable. Pleura: No effusion or pneumothorax. Heart: The heart is not dilated. Mild coronary artery calcification is present. No pericardial effusion. Aorta: Thoracic aorta non-dilated. Atherosclerotic calcification is present. Upper abdomen: Unremarkable. Lymph nodes: Within normal limits. Soft tissues: Unremarkable. Bones:Within normal limits for the patient's age. IMPRESSION: 1. Stable pulmonary nodules. No new pulmonary nodules are present. 2. No acute pulmonary process. RADIATION DOSE DELIVERED: 289.94mGy.cm Total DLP 289.94mGy.cm Total DLP DATA REPOSITORY: All CT scans at this facility are submitted to the National Radiology Data Registry (NRDR) Dose Index Registry (DIR) with the [employer] ([employer]). RADIATION OPTIMIZATION: All CT scans at this facility use at least one of these dose optimization techniques: automated exposure control; mA and/or kV adjustment per patient size (includes targeted exams where dose is matched to clinical indication); or iterative reconstruction.
== END 2025-07-18 00:58 ==
LOC: DI 00:39
PROVIDERS: PCP Student in an Organized Health Care Education/Training Program; Visit Provider Student in an Organized Health Care Education/Training Program
DX: Z87.891 Personal history of nicotine dependence (principal); R06.02 Shortness of breath
CPT/HCPCS: 71250

== ENCOUNTER 2025-10-14 19:06 | Outpatient (REF) | payer MEDICAID, SELFPAY ==
[2025-10-14 16:46] LABS: Glucose >=1000 mg/dL (Negative)
[2025-10-14 16:51] LABS: C & S Indicated? No; RBC 0-2 HPF (0-2); WBC Negative HPF (0-5)
== END 2025-10-14 19:07 | disposition home or self-care (01) ==
LOC: LBN 19:06
PROVIDERS: PCP Student in an Organized Health Care Education/Training Program; Visit Provider Student in an Organized Health Care Education/Training Program
DX: N32.81 Overactive bladder (principal); N39.3 Stress incontinence (female) (male)
CPT/HCPCS: 81003; 81015